=== PATIENT | male | born 1960 | race Two or more races ===

== ENCOUNTER 2018-11-10 16:28 | Inpatient (IN) | payer OTHER ==
[~2018-11-10] VITALS: Ht 160 cm; Wt 52.2 kg
[2018-11-10] MEDS ORDERED: FEE PK DOSING 1 MIN EA MC ONE (16:29)
[2018-11-10 18:00] LABS: BASOPHILS # (AUTO) 0.1 /CMM (0.0-0.2); BASOPHILS % (AUTO) 0.6 % (0.0-2.0); EOSINOPHILS % (AUTO) 3.8 % (0.0-6.0); HEMATOCRIT 23 % (39-51); HEMOGLOBIN 7.2 g/dL (13.5-17.5); LYMPHOCYTES # (AUTO) 2.1 /CMM (0.8-4.8); LYMPHOCYTES % (AUTO) 12.2 % (20.0-44.0); MEAN CORPUSCULAR HGB CONC 32 g/dl (31.0-36.0); MEAN CORPUSCULAR VOLUME 96 fL (80-96); MONOCYTES % (AUTO) 5.6 % (2.0-12.0); NEUTROPHILS # (AUTO) 13.5 /CMM (1.8-8.9); NEUTROPHILS % (AUTO) 77.8 % (43.0-81.0); PLATELET COUNT (AUTO) 664 /CMM (150-450); RED BLOOD CELL COUNT(AUTO) 2.35 MIL/uL (4.5-6.0); WHITE BLOOD COUNT (AUTO) 17.4 K/uL (4.3-11.0)
[2018-11-10 18:18] LABS: ALBUMIN 1.7 g/dL (3.4-5.0); BILIRUBIN,DIRECT 0.1 mg/dL (0.0-0.2); BILIRUBIN,TOTAL 0.3 mg/dL (0.2-1.0); CALCIUM, SERUM 9.2 mg/dL (8.5-10.1); TOTAL PROTEIN, SERUM 7.4 g/dL (6.4-8.2)
[2018-11-10 18:19] LABS: CREATININE 4.1 mg/dL (0.6-1.3)
[2018-11-10] MEDS ORDERED: hydrALAZINE HCL IV 20 MG VIAL ONE (19:47)
[2018-11-10] MEDS ORDERED: BISA10SU61 RC (19:50)
[2018-11-10] MEDS ORDERED: NA P133E RC (19:50)
[2018-11-10] MEDS ORDERED: ASPI-1169 GT (19:50)
[2018-11-10] MEDS ORDERED: ZINC220T GT (19:50)
[2018-11-10] MEDS ORDERED: DEXT15DR6 EACHEYE (19:50)
[2018-11-10] MEDS ORDERED: AMIN30LI27 GT (19:50)
[2018-11-10] MEDS ORDERED: METO100T14 GT (19:50)
[2018-11-10] MEDS ORDERED: OMEP40CA37 GT (19:50)
[2018-11-10] MEDS ORDERED: INSU100I26 SQ (19:50)
[2018-11-10] MEDS ORDERED: CRAN450C GT (19:50)
[2018-11-10] MEDS ORDERED: FENO145T GT (19:50)
[2018-11-10] MEDS ORDERED: METO-295 GT (19:50)
[2018-11-10] MEDS ORDERED: VIT500LI GT (19:50)
[2018-11-10] MEDS ORDERED: MAGN2400 GT (19:50)
[2018-11-10] MEDS ORDERED: HEPA500014 SQ (19:50)
[2018-11-10] MEDS ORDERED: ACET325T53 GT (19:50)
[2018-11-10] MEDS ORDERED: DOCU50LI GT (19:50)
[2018-11-10] MEDS ORDERED: ONDA4TAB10 GT (19:50)
[2018-11-10] MEDS ORDERED: INSU100V36 SQ (19:50)
[2018-11-10] MEDS ORDERED: ERGO500040 GT (19:50)
[2018-11-10] MEDS ORDERED: FOLI0.8T2 GT (19:50)
[2018-11-10] MEDS ORDERED: HYDR-4384 GT (19:50)
[2018-11-10] MEDS ORDERED: CLON0.1T GT (19:50)
[2018-11-10 19:56] LABS: APPEARANCE,URINE Turbid (CLEAR); BILIRUBIN,URINE Negative (NEGATIVE); BLOOD, URINE Moderate Ery/uL (NEGATIVE); COLOR,URINE Yellow (YELLOW); KETONES,URINE Negative (NEGATIVE); LEUKOCYTE ESTERASE ,URINE Large (NEGATIVE); NITRITE, URINE Negative (NEGATIVE); PROTEIN,URINE >=300 mg/dl (NEGATIVE); UGLUCOSE Negative (NEGATIVE); UROBILINOGEN,URINE 0.2 EU/dL (0.2)
[2018-11-10] MEDS ORDERED: PANTOPRAZOLE 40 MG TABLET.DR PO ONE (20:00)
[2018-11-10] MEDS ORDERED: MAGNESIUM HYDROXIDE 30 ML UDC PO PRN (20:00)
[2018-11-10] MEDS ORDERED: MAG HYDROX/AL HYDROX/SIMETH 30 ML UDC PO PRN (20:00)
[2018-11-10] MEDS ORDERED: hydrALAZINE HCL IV 20 MG VIAL IV ONE (20:00)
[2018-11-10] MEDS ORDERED: HYDROCODONE/APAP 5/325MG 1 EACH TABLET PO PRN (20:00)
[2018-11-10] MEDS ORDERED: LORAZEPAM INJ 2 MG/ML VIAL IV PRN (20:00)
[2018-11-10] MEDS ORDERED: ZOLPIDEM TARTRATE 5 MG TABLET PO PRN (20:00)
[2018-11-10] MEDS ORDERED: Z GUARD REMEDY 2 OZ OINT TP PRN (20:00)
[2018-11-10] MEDS ORDERED: ACETAMINOPHEN 325 MG TABLET PO PRN (20:00)
[2018-11-10] MEDS ORDERED: ONDANSETRON HCL/PF 4 MG/2 ML VIAL IVP PRN (20:00)
[2018-11-10 20:22] LABS: WBC,URINE TOO NUMEROUS TO COUN /HPF (0-3)
[2018-11-10 20:23] LABS: BACTERIA,URINE Many /HPF (None Seen); SQUAMOUS EPITHELIAL CELL,UR Few /HPF (None Seen); URINE AMORPHOUS URATE Moderate /HPF (None Seen)
[2018-11-10 23:15] VITALS: BP 145/82
[2018-11-10] MEDS ORDERED: VANCOMYCIN 1 GM in IV D5W 250 ML IV ONE (23:30)
[2018-11-11] MEDS ORDERED: PIPERACILLIN /TAZOBACTAM 3.375 G in IV D5W 50 ML IV SCH ×2
[2018-11-11] MEDS ORDERED: PIPERACILLIN /TAZOBACTAM 2.25 G VIAL IV ONE ×2 (00:08→05:50)
[2018-11-11] MEDS: PIPERACILLIN /TAZOBACTAM 2.25 G in IV D5W 50 ML IV SCH ×4 (00:13→21:06)
[2018-11-11] MEDS ORDERED: VANCOMYCIN 500 MG VIAL ONE ×2 (01:08→01:10)
[2018-11-11] MEDS ORDERED: IPRATROPIUM NEB FS 0.5 MG/2.5 ML AMPUL.NEB NEB ONE (01:30)
[2018-11-11] MEDS ORDERED: ALBUTEROL FS 2.5 MG/3 ML VIAL.NEB NEB ONE (01:30)
[2018-11-11] MEDS ORDERED: PANTOPRAZOLE 40 MG TABLET.DR PO ONE (03:26)
[2018-11-11 04:00] VITALS: BP 143/77
[2018-11-11] MEDS ORDERED: NEPRO 1,000 ML BOTTLE GT PRN (04:30)
[2018-11-11] MEDS ORDERED: DEXTROSE 50%-WATER 50 ML DISP.SYRIN IV PRN (05:00)
[2018-11-11] MEDS: BLOOD SUGAR DIAGNOSTIC 1 EACH STRIP IN SCH ×3 (06:26→19:14)
[2018-11-11 07:25] LABS: BASOPHILS # (AUTO) 0.1 /CMM (0.0-0.2); BASOPHILS % (AUTO) 0.5 % (0.0-2.0); EOSINOPHILS % (AUTO) 4.2 % (0.0-6.0); HEMATOCRIT 22 % (39-51); HEMOGLOBIN 7.3 g/dL (13.5-17.5); LYMPHOCYTES # (AUTO) 2.1 /CMM (0.8-4.8); LYMPHOCYTES % (AUTO) 14.3 % (20.0-44.0); MEAN CORPUSCULAR HGB CONC 33 g/dl (31.0-36.0); MEAN CORPUSCULAR VOLUME 94 fL (80-96); MONOCYTES % (AUTO) 7.1 % (2.0-12.0); NEUTROPHILS # (AUTO) 10.9 /CMM (1.8-8.9); NEUTROPHILS % (AUTO) 73.9 % (43.0-81.0); PLATELET COUNT (AUTO) 666 /CMM (150-450); RED BLOOD CELL COUNT(AUTO) 2.35 MIL/uL (4.5-6.0); WHITE BLOOD COUNT (AUTO) 14.8 K/uL (4.3-11.0)
[2018-11-11 07:30] VITALS: BP 137/73
[2018-11-11 07:55] LABS: CALCIUM, SERUM 8.8 mg/dL (8.5-10.1); CREATININE 4.8 mg/dL (0.6-1.3); MAGNESIUM 2.3 mg/dL (1.8-2.4)
[2018-11-11] MEDS ORDERED: VANCOMYCIN 500 MG in IV D5W 100 ML IV PRN (08:00)
[2018-11-11] MEDS ORDERED: ALTEPLASE CATHFLO 2 MG/VIAL IV ONE (10:00)
[2018-11-11] MEDS: NEPRO 1,000 ML BOTTLE GT PRN (10:19)
[2018-11-11 12:00] VITALS: BP 144/77
[2018-11-11] MEDS: INSULIN REGULAR, HUMAN 100 UNIT/ML 3 ML VIAL SQ PRN ×2 (12:49→19:21)
[2018-11-11 16:56] VITALS: BP 148/80
[2018-11-11 20:00] VITALS: BP 132/72
[2018-11-11] MEDS ORDERED: BISACODYL SUPP (10 MG) 10 MG/SUPP.RECT SUPP.RECT RC PRN (20:00)
[2018-11-11] MEDS ORDERED: NA PHOS,M-B/NA PHOS,DI-BA 1 EA ENEMA RC PRN (20:00)
[2018-11-11] MEDS: DOCUSATE SODIUM LIQ 100 MG/10 ML UDC GT SCH (21:35)
[2018-11-11] MEDS: FENOFIBRATE NANOCRYS (145 MG) 145 MG TABLET GT SCH (21:35)
[2018-11-11] MEDS: INSULIN GLARGINE, 100 UNIT/ML CARTRIDGE SQ SCH (21:52)
[2018-11-11] MEDS: PANTOPRAZOLE 40 MG/PACK PACK GT SCH (21:56)
[2018-11-11] MEDS: HEPARIN SODIUM, PORCINE 5000 UNITS/1 ML VIAL SQ SCH (21:57)
[2018-11-11] MEDS: METOPROLOL TARTRATE 50 MG TABLET GT SCH (23:08)
[2018-11-12] VITALS (14 sets, daily range): BP systolic 78–180; BP diastolic 51–94
[2018-11-12] MEDS: METOCLOPRAMIDE HCL 10 MG TABLET GT SCH ×5 (01:15→23:38)
[2018-11-12] MEDS: BLOOD SUGAR DIAGNOSTIC 1 EACH STRIP IN SCH ×5 (01:15→23:38)
[2018-11-12] MEDS: PIPERACILLIN /TAZOBACTAM 2.25 G in IV D5W 50 ML IV SCH ×3 (05:31→20:09)
[2018-11-12] MEDS: INSULIN REGULAR, HUMAN 100 UNIT/ML 3 ML VIAL SQ PRN ×4 (06:04→23:42)
[2018-11-12 06:39] LABS: BASOPHILS # (AUTO) 0.1 /CMM (0.0-0.2); BASOPHILS % (AUTO) 0.8 % (0.0-2.0); EOSINOPHILS % (AUTO) 5.5 % (0.0-6.0); HEMATOCRIT 21 % (39-51); LYMPHOCYTES # (AUTO) 2.1 /CMM (0.8-4.8); LYMPHOCYTES % (AUTO) 17.7 % (20.0-44.0); MEAN CORPUSCULAR HGB CONC 33 g/dl (31.0-36.0); MEAN CORPUSCULAR VOLUME 94 fL (80-96); MONOCYTES # (AUTO) 0.7 /CMM (0.1-1.30); MONOCYTES % (AUTO) 6.3 % (2.0-12.0); NEUTROPHILS # (AUTO) 8.1 /CMM (1.8-8.9); NEUTROPHILS % (AUTO) 69.7 % (43.0-81.0); PLATELET COUNT (AUTO) 618 /CMM (150-450); RED BLOOD CELL COUNT(AUTO) 2.19 MIL/uL (4.5-6.0); WHITE BLOOD COUNT (AUTO) 11.7 K/uL (4.3-11.0)
[2018-11-12 06:47] LABS: HEMOGLOBIN 6.8 g/dL (13.5-17.5)
[2018-11-12 07:09] LABS: CALCIUM, SERUM 8.7 mg/dL (8.5-10.1); CREATININE 5.3 mg/dL (0.6-1.3)
[2018-11-12] MEDS ORDERED: Medication Not On Formulary EA (Cranberry Fruit Concentrate (Cranberry) 450 MG) GT SCH (09:00)
[2018-11-12] MEDS: INSULIN GLARGINE, 100 UNIT/ML CARTRIDGE SQ SCH ×2 (09:00→20:24)
[2018-11-12] MEDS: DOCUSATE SODIUM LIQ 100 MG/10 ML UDC GT SCH ×2 (09:04→20:09)
[2018-11-12] MEDS: ZINC SULFATE 220 MG CAPSULE GT SCH (09:05)
[2018-11-12] MEDS: ASPIRIN 81 MG TAB.CHEW GT SCH (09:05)
[2018-11-12] MEDS: PANTOPRAZOLE 40 MG/PACK PACK GT SCH ×2 (09:05→20:11)
[2018-11-12] MEDS: VIT B CMPLX 3/FA/VIT C/BIOTIN 1 TAB TABLET PO SCH (09:05)
[2018-11-12] MEDS: METOPROLOL TARTRATE 50 MG TABLET GT SCH ×2 (09:08→20:11)
[2018-11-12] MEDS: ASCORBIC ACID 500 MG TABLET PO SCH (09:17)
[2018-11-12] MEDS: HEPARIN SODIUM, PORCINE 5000 UNITS/1 ML VIAL SQ SCH ×2 (10:01→20:09)
[2018-11-12] MEDS: DAKINS QUARTER STRENGTH (0.125%) 480 ML BOTTLE TOP SCH (10:08)
[2018-11-12 10:48] LABS: EOSINOPHILS % (MANUAL) 5 % (0-4); LYMPHOCYTES % (MANUAL) 7 % (16-48); MONOCYTES % (MANUAL) 3 % (0-11.0); NEUTROPHILS % (MANUAL) 85 (42-76)
[2018-11-12] MEDS: POLYVINYL ALCOHOL 15 ML BOTTLE EACHEYE SCH ×3 (17:18→23:38)
[2018-11-12] MEDS: FENOFIBRATE NANOCRYS (145 MG) 145 MG TABLET GT SCH (21:10)
[2018-11-13] VITALS (7 sets, daily range): BP systolic 120–145; BP diastolic 57–83
[2018-11-13] MEDS: NEPRO 1,000 ML BOTTLE GT PRN (03:55)
[2018-11-13] MEDS: PIPERACILLIN /TAZOBACTAM 2.25 G in IV D5W 50 ML IV SCH ×3 (04:41→20:35)
[2018-11-13] MEDS: METOCLOPRAMIDE HCL 10 MG TABLET GT SCH ×3 (05:53→17:31)
[2018-11-13] MEDS: POLYVINYL ALCOHOL 15 ML BOTTLE EACHEYE SCH ×3 (05:54→17:32)
[2018-11-13] MEDS: BLOOD SUGAR DIAGNOSTIC 1 EACH STRIP IN SCH ×3 (05:59→17:31)
[2018-11-13] MEDS: INSULIN REGULAR, HUMAN 100 UNIT/ML 3 ML VIAL SQ PRN ×3 (06:02→18:00)
[2018-11-13 07:19] LABS: BASOPHILS # (AUTO) 0.1 /CMM (0.0-0.2); BASOPHILS % (AUTO) 0.8 % (0.0-2.0); HEMATOCRIT 29 % (39-51); HEMOGLOBIN 9.9 g/dL (13.5-17.5); LYMPHOCYTES # (AUTO) 2.5 /CMM (0.8-4.8); LYMPHOCYTES % (AUTO) 20.3 % (20.0-44.0); MEAN CORPUSCULAR HGB CONC 34 g/dl (31.0-36.0); MEAN CORPUSCULAR VOLUME 93 fL (80-96); MONOCYTES % (AUTO) 8.2 % (2.0-12.0); NEUTROPHILS % (AUTO) 64.7 % (43.0-81.0); PLATELET COUNT (AUTO) 591 /CMM (150-450); RED BLOOD CELL COUNT(AUTO) 3.13 MIL/uL (4.5-6.0); WHITE BLOOD COUNT (AUTO) 12.3 K/uL (4.3-11.0)
[2018-11-13 07:30] LABS: CALCIUM, SERUM 8.9 mg/dL (8.5-10.1); POTASSIUM 2.9 mmol/L (3.5-5.1)
[2018-11-13] MEDS: ASCORBIC ACID 500 MG TABLET PO SCH (09:57)
[2018-11-13] MEDS: DOCUSATE SODIUM LIQ 100 MG/10 ML UDC GT SCH ×2 (09:57→21:06)
[2018-11-13] MEDS: ZINC SULFATE 220 MG CAPSULE GT SCH (09:57)
[2018-11-13] MEDS: VIT B CMPLX 3/FA/VIT C/BIOTIN 1 TAB TABLET PO SCH (09:57)
[2018-11-13] MEDS: ASPIRIN 81 MG TAB.CHEW GT SCH (09:57)
[2018-11-13] MEDS: PANTOPRAZOLE 40 MG/PACK PACK GT SCH ×2 (09:58→21:07)
[2018-11-13] MEDS: METOPROLOL TARTRATE 50 MG TABLET GT SCH ×2 (09:59→21:07)
[2018-11-13] MEDS: DAKINS QUARTER STRENGTH (0.125%) 480 ML BOTTLE TOP SCH (10:00)
[2018-11-13] MEDS: INSULIN GLARGINE, 100 UNIT/ML CARTRIDGE SQ SCH ×2 (10:10→21:47)
[2018-11-13] MEDS: HEPARIN SODIUM, PORCINE 5000 UNITS/1 ML VIAL SQ SCH ×2 (17:10→21:11)
[2018-11-13] MEDS ORDERED: ERGOCALCIFEROL (VITAMIN D 2) 50,000 UNIT CAPSULE GT SCH (20:00)
[2018-11-13] MEDS: FENOFIBRATE NANOCRYS (145 MG) 145 MG TABLET GT SCH (21:07)
[2018-11-14] VITALS (9 sets, daily range): BP systolic 122–167; BP diastolic 43–82
[2018-11-14] MEDS: INSULIN REGULAR, HUMAN 100 UNIT/ML 3 ML VIAL SQ PRN ×5 (00:50→23:20)
[2018-11-14] MEDS: POLYVINYL ALCOHOL 15 ML BOTTLE EACHEYE SCH ×4 (00:54→17:24)
[2018-11-14] MEDS: BLOOD SUGAR DIAGNOSTIC 1 EACH STRIP IN SCH ×5 (00:54→23:11)
[2018-11-14] MEDS: METOCLOPRAMIDE HCL 10 MG TABLET GT SCH ×4 (00:55→17:24)
[2018-11-14] MEDS: PIPERACILLIN /TAZOBACTAM 2.25 G in IV D5W 50 ML IV SCH ×2 (05:09→13:24)
[2018-11-14 08:17] LABS: CALCIUM, SERUM 8.8 mg/dL (8.5-10.1); CREATININE 2.9 mg/dL (0.6-1.3)
[2018-11-14] MEDS: ASCORBIC ACID 500 MG TABLET PO SCH (08:28)
[2018-11-14] MEDS: DOCUSATE SODIUM LIQ 100 MG/10 ML UDC GT SCH ×2 (08:28→21:05)
[2018-11-14] MEDS: VIT B CMPLX 3/FA/VIT C/BIOTIN 1 TAB TABLET PO SCH (08:29)
[2018-11-14] MEDS: ZINC SULFATE 220 MG CAPSULE GT SCH (08:29)
[2018-11-14] MEDS: METOPROLOL TARTRATE 50 MG TABLET GT SCH ×2 (08:29→21:06)
[2018-11-14] MEDS: PANTOPRAZOLE 40 MG/PACK PACK GT SCH ×2 (08:30→21:06)
[2018-11-14] MEDS: HEPARIN SODIUM, PORCINE 5000 UNITS/1 ML VIAL SQ SCH ×2 (08:30→21:07)
[2018-11-14] MEDS: ASPIRIN 81 MG TAB.CHEW GT SCH (08:31)
[2018-11-14] MEDS: INSULIN GLARGINE, 100 UNIT/ML CARTRIDGE SQ SCH ×2 (08:46→23:22)
[2018-11-14] MEDS: DAKINS QUARTER STRENGTH (0.125%) 480 ML BOTTLE TOP SCH (08:46)
[2018-11-14] MEDS: NEPRO 1,000 ML BOTTLE GT PRN (10:21)
[2018-11-14] MEDS ORDERED: NS 0.9% IV ONE (16:00)
[2018-11-14] MEDS ORDERED: AMIKACIN IV ONE (16:00)
[2018-11-14] MEDS ORDERED: DOSING PER PHARMACY-AMIKACI IV XX PRN (16:00)
[2018-11-14] MEDS: AMPICILLIN 1 GM in IV NS 0.9% 50 ML IV SCH (18:10)
[2018-11-14] MEDS: FENOFIBRATE NANOCRYS (145 MG) 145 MG TABLET GT SCH (21:09)
[2018-11-15] VITALS: BP 154/80
[2018-11-15] MEDS: POLYVINYL ALCOHOL 15 ML BOTTLE EACHEYE SCH ×5 (00:28→23:54)
[2018-11-15] MEDS: METOCLOPRAMIDE HCL 10 MG TABLET GT SCH ×4 (00:30→17:18)
[2018-11-15 04:00] VITALS: BP 152/85
[2018-11-15] MEDS: BLOOD SUGAR DIAGNOSTIC 1 EACH STRIP IN SCH ×3 (05:20→17:18)
[2018-11-15] MEDS: NEPRO 1,000 ML BOTTLE GT PRN ×2 (05:20→13:55)
[2018-11-15] MEDS: AMPICILLIN 1 GM in IV NS 0.9% 50 ML IV SCH ×2 (05:20→18:12)
[2018-11-15] MEDS: INSULIN REGULAR, HUMAN 100 UNIT/ML 3 ML VIAL SQ PRN ×3 (05:50→17:20)
[2018-11-15 07:39] LABS: CALCIUM, SERUM 8.9 mg/dL (8.5-10.1); CREATININE 3.9 mg/dL (0.6-1.3)
[2018-11-15 07:50] LABS: POTASSIUM 2.8 mmol/L (3.5-5.1)
[2018-11-15 08:00] VITALS: BP 124/69
[2018-11-15] MEDS: ZINC SULFATE 220 MG CAPSULE GT SCH (08:32)
[2018-11-15] MEDS: ASPIRIN 81 MG TAB.CHEW GT SCH (08:32)
[2018-11-15] MEDS: PANTOPRAZOLE 40 MG/PACK PACK GT SCH ×2 (08:32→20:58)
[2018-11-15] MEDS: VIT B CMPLX 3/FA/VIT C/BIOTIN 1 TAB TABLET PO SCH (08:32)
[2018-11-15] MEDS: DOCUSATE SODIUM LIQ 100 MG/10 ML UDC GT SCH ×2 (08:32→20:58)
[2018-11-15] MEDS: METOPROLOL TARTRATE 50 MG TABLET GT SCH ×2 (08:36→20:59)
[2018-11-15] MEDS: HEPARIN SODIUM, PORCINE 5000 UNITS/1 ML VIAL SQ SCH ×2 (08:38→20:57)
[2018-11-15] MEDS: INSULIN GLARGINE, 100 UNIT/ML CARTRIDGE SQ SCH ×2 (08:39→20:58)
[2018-11-15] MEDS: DAKINS QUARTER STRENGTH (0.125%) 480 ML BOTTLE TOP SCH (08:40)
[2018-11-15] MEDS: ASCORBIC ACID 500 MG TABLET PO SCH (08:54)
[2018-11-15] MEDS ORDERED: POTASSIUM CHLORIDE 20 MEQ TAB.PRT.SR PO ONE (09:30)
[2018-11-15 10:12] LABS: BASOPHILS # (AUTO) 0.1 /CMM (0.0-0.2); BASOPHILS % (AUTO) 0.8 % (0.0-2.0); HEMATOCRIT 29 % (39-51); HEMOGLOBIN 9.6 g/dL (13.5-17.5); LYMPHOCYTES # (AUTO) 2.4 /CMM (0.8-4.8); LYMPHOCYTES % (AUTO) 16.2 % (20.0-44.0); MEAN CORPUSCULAR HGB CONC 33 g/dl (31.0-36.0); MEAN CORPUSCULAR VOLUME 94 fL (80-96); MONOCYTES # (AUTO) 1.1 /CMM (0.1-1.30); MONOCYTES % (AUTO) 7.1 % (2.0-12.0); NEUTROPHILS # (AUTO) 10.2 /CMM (1.8-8.9); NEUTROPHILS % (AUTO) 68.9 % (43.0-81.0); PLATELET COUNT (AUTO) 642 /CMM (150-450); WHITE BLOOD COUNT (AUTO) 14.8 K/uL (4.3-11.0)
[2018-11-15 12:00] VITALS: BP 97/54
[2018-11-15 12:01] LABS: CALCIUM, SERUM 8.7 mg/dL (8.5-10.1); CREATININE 4.1 mg/dL (0.6-1.3); POTASSIUM 2.9 mmol/L (3.5-5.1)
[2018-11-15] MEDS ORDERED: FEE PK DOSING 1 MIN EA MC ONE (13:39)
[2018-11-15] MEDS ORDERED: AMIKACIN 300 MG in IV D5W 100 ML IV PRN (14:00)
[2018-11-15 16:00] VITALS: BP 150/82
[2018-11-15 20:00] VITALS: BP 154/73
[2018-11-15] MEDS: FENOFIBRATE NANOCRYS (145 MG) 145 MG TABLET GT SCH (21:00)
[2018-11-16] MEDS: BLOOD SUGAR DIAGNOSTIC 1 EACH STRIP IN SCH ×3 (00:02→12:51)
[2018-11-16] MEDS: INSULIN REGULAR, HUMAN 100 UNIT/ML 3 ML VIAL SQ PRN ×3 (00:06→12:56)
[2018-11-16] MEDS: METOCLOPRAMIDE HCL 10 MG TABLET GT SCH ×3 (00:08→12:47)
[2018-11-16] MEDS: hydrALAZINE HCL IV 20 MG VIAL IV PRN ×3 (03:52→17:16)
[2018-11-16] MEDS: POLYVINYL ALCOHOL 15 ML BOTTLE EACHEYE SCH ×2 (05:21→12:57)
[2018-11-16] MEDS: AMPICILLIN 1 GM in IV NS 0.9% 50 ML IV SCH (05:24)
[2018-11-16 06:02] VITALS: BP 167/77
[2018-11-16 07:49] LABS: CREATININE 3.6 mg/dL (0.6-1.3)
[2018-11-16 08:00] VITALS: BP 168/88
[2018-11-16] MEDS ORDERED: POTASSIUM CHLORIDE 20 MEQ TAB.PRT.SR PO ONE (09:00)
[2018-11-16] MEDS: DOCUSATE SODIUM LIQ 100 MG/10 ML UDC GT SCH (09:56)
[2018-11-16] MEDS: VIT B CMPLX 3/FA/VIT C/BIOTIN 1 TAB TABLET PO SCH (09:56)
[2018-11-16] MEDS: ASCORBIC ACID 500 MG TABLET PO SCH (09:57)
[2018-11-16] MEDS: HEPARIN SODIUM, PORCINE 5000 UNITS/1 ML VIAL SQ SCH (09:57)
[2018-11-16] MEDS: PANTOPRAZOLE 40 MG/PACK PACK GT SCH (09:57)
[2018-11-16] MEDS: ZINC SULFATE 220 MG CAPSULE GT SCH (09:57)
[2018-11-16] MEDS: METOPROLOL TARTRATE 50 MG TABLET GT SCH (09:58)
[2018-11-16] MEDS: INSULIN GLARGINE, 100 UNIT/ML CARTRIDGE SQ SCH (09:59)
[2018-11-16] MEDS: DAKINS QUARTER STRENGTH (0.125%) 480 ML BOTTLE TOP SCH (10:10)
[2018-11-16] MEDS: ASPIRIN 81 MG TAB.CHEW GT SCH (10:13)
[2018-11-16 12:00] VITALS: BP_SYST 144; BP_SYST 165; BP_DIAS 67; BP_DIAS 71
[2018-11-16 16:00] VITALS: BP 161/71
[2018-11-16] MEDS ORDERED: RXAMI XX (16:22)
[2018-11-16] MEDS ORDERED: ampicillin IV (16:22)
[2018-11-16 17:16] VITALS: BP 166/113
[2018-12-22] MEDS ORDERED: BISA10SU8 RC (13:35)
== END 2018-11-16 17:58 | DRG 951 ==
LOC: ER 16:28 → TELE 22:51
PROVIDERS: ADMIT Nurse Practitioner Acute Care; ATTEND Nurse Practitioner Acute Care
PROC: 05H533Z Insertion of Infusion Device into Right Subclavian Vein, Percutaneous Approach (ICD-10-PCS; principal; 2018-11-10)
PROC: 5A1955Z Respiratory Ventilation, Greater than 96 Consecutive Hours (ICD-10-PCS; principal; 2018-11-10)
PROC: B546ZZA Ultrasonography of Right Subclavian Vein, Guidance (ICD-10-PCS; principal; 2018-11-10)
PROC: 0QB10ZZ Excision of Sacrum, Open Approach (ICD-10-PCS; 2018-11-11)
PROC: 5A1D70Z Performance of Urinary Filtration, Intermittent, Less than 6 Hours Per Day (ICD-10-PCS; 2018-11-11)
PROC: 0QB30ZZ Excision of Left Pelvic Bone, Open Approach (ICD-10-PCS; 2018-11-11)
PROC: 0QB20ZZ Excision of Right Pelvic Bone, Open Approach (ICD-10-PCS; 2018-11-11)
PROC: 30233N1 Transfusion of Nonautologous Red Blood Cells into Peripheral Vein, Percutaneous Approach (ICD-10-PCS; 2018-11-12)
PROC: 5A1D70Z Performance of Urinary Filtration, Intermittent, Less than 6 Hours Per Day (ICD-10-PCS; 2018-11-12)
PROC: 5A1D70Z Performance of Urinary Filtration, Intermittent, Less than 6 Hours Per Day (ICD-10-PCS; 2018-11-13)
PROC: 5A1D70Z Performance of Urinary Filtration, Intermittent, Less than 6 Hours Per Day (ICD-10-PCS; 2018-11-15)
DX: T82.41XA Breakdown (mechanical) of vascular dialysis catheter, initial encounter (principal); R65.20 Severe sepsis without septic shock; A41.9 Sepsis, unspecified organism; E43 Unspecified severe protein-calorie malnutrition; Z99.11 Dependence on respirator [ventilator] status; J96.11 Chronic respiratory failure with hypoxia; L89.154 Pressure ulcer of sacral region, stage 4; I12.0 Hypertensive chronic kidney disease with stage 5 chronic kidney disease or end stage renal disease; N18.6 End stage renal disease; D68.59 Other primary thrombophilia; R53.2 Functional quadriplegia; Z93.0 Tracheostomy status; R13.10 Dysphagia, unspecified; E87.1 Hypo-osmolality and hyponatremia; Y92.129 Unspecified place in nursing home as the place of occurrence of the external cause; Y71.2 Prosthetic and other implants, materials and accessory cardiovascular devices associated with adverse incidents; E11.22 Type 2 diabetes mellitus with diabetic chronic kidney disease; D63.8 Anemia in other chronic diseases classified elsewhere; E11.51 Type 2 diabetes mellitus with diabetic peripheral angiopathy without gangrene; E11.42 Type 2 diabetes mellitus with diabetic polyneuropathy; E11.65 Type 2 diabetes mellitus with hyperglycemia; E11.621 Type 2 diabetes mellitus with foot ulcer; E87.6 Hypokalemia; E87.2 Acidosis; E86.1 Hypovolemia; F03.90 Unspecified dementia, unspecified severity, without behavioral disturbance, psychotic disturbance, mood disturbance, and anxiety; F09 Unspecified mental disorder due to known physiological condition; K21.9 Gastro-esophageal reflux disease without esophagitis; L97.519 Non-pressure chronic ulcer of other part of right foot with unspecified severity; Z99.2 Dependence on renal dialysis; Z93.1 Gastrostomy status; Z89.432 Acquired absence of left foot; Z89.411 Acquired absence of right great toe; Z79.4 Long term (current) use of insulin; Z79.82 Long term (current) use of aspirin; Z79.01 Long term (current) use of anticoagulants; D64.9 Anemia, unspecified; Z68.20 Body mass index [BMI] 20.0-20.9, adult; L89.611 Pressure ulcer of right heel, stage 1; N39.0 Urinary tract infection, site not specified; B96.89 Other specified bacterial agents as the cause of diseases classified elsewhere
CPT/HCPCS: 31720; 36415; 71045-TC; 80048-TC; 80061-TC; 80076-TC; 80150; 80202-TC; 81000-TC; 82962-TC; 83605-TC; 83735-TC; 84100-TC; 85025-TC; 85730-TC; 86850-TC; 86921-TC; 87040-TC; 87070-TC; 87081-TC; 87086-TC; 87186-TC; 90935-TC; 94002-TC; 94003-TC; 94760-TC; 94762-TC; 99082-TC; A4216; A4623; A6253; A6402; A6403; A7526; G0378; J0278; J0290; J0360; J1644; J1815; J2543; J2997; J3370; J7030; J7050; J7060; J8597; P9016-BL

== ENCOUNTER 2018-11-22 17:06 | Inpatient (IN) | payer OTHER ==
[~2018-11-22] VITALS: Ht 170.2 cm; Wt 55.3 kg
[~2018-11-22 17:06] MED LIST: ACET325T53 GT; AMIN30LI27 GT; ASPI-1169 GT; BISA10SU61 RC; CLON0.1T GT; CRAN450C GT; DEXT15DR6 EACHEYE; DOCU50LI GT; ERGO500040 GT; FENO145T GT; FOLI0.8T2 GT; HEPA500014 SQ; HYDR-4384 GT; INSU100I26 SQ; INSU100V36 SQ; MAGN2400 GT; METO-295 GT; METO100T14 GT; NA P133E RC; OMEP40CA37 GT; ONDA4TAB10 GT; RXAMI XX; VIT500LI GT; ZINC220T GT; ampicillin IV
--- NOTE | 2018-11-22 17:15 | NUR ---
JOSE DAUGHTER LEFT CONTACT# [phone]
[2018-11-22 17:20] VITALS: BP 153/82
--- NOTE | 2018-11-22 17:30 | NUR ---
PT BIBPA, FROM [facility] SENT BY DR. GOOD D/T TACHYCARDIA HR 116, PT IS AAOX0 BUT WITHDRAWS TO PAIN, V/S STABLE, HOOKED TO MECH VENT VIA TRACHEOSTOMY SET UP BY RT, HOOKED TO MONITOR, KEPT RESTED AND COMFORTABLE, WILL CONTINUE TO MONITOR.
--- NOTE | 2018-11-22 17:30 | NUR ---
LABS DRAWNED, URINE SPECIMEN COLLECTED AND SENT TO LAB.
--- NOTE | 2018-11-22 17:35 | NUR ---
LABS DRAWNED BY ER PHLEB AND SENT TO LAB.
--- NOTE | 2018-11-22 17:35 | NUR ---
RT RECD FROM DIALYSIS FOR HIGH HEART RATE TRACHED INTACT AND SECURE WITH SHILEY 8 DCT LEIDA ORDERED SETTING OF AC 18 500 +5 40% ALARMS ON AND AUDIBLE VENT PLUGGED IN RED OUTLET BAG AND MASK AT HOB NO RESP DISTRESS ATT WILL CONT TO MONITOR Addendum: 11/22/18 at 1755 by LOLLY FRY RT Amended: Links added.
[2018-11-22 17:40] LABS: APPEARANCE,URINE Turbid (CLEAR); BILIRUBIN,URINE Negative (NEGATIVE); BLOOD, URINE Moderate Ery/uL (NEGATIVE); COLOR,URINE Yellow (YELLOW); KETONES,URINE Negative (NEGATIVE); LEUKOCYTE ESTERASE ,URINE Large (NEGATIVE); NITRITE, URINE Negative (NEGATIVE); PROTEIN,URINE >=300 mg/dl (NEGATIVE); UGLUCOSE Negative (NEGATIVE); UROBILINOGEN,URINE 0.2 EU/dL (0.2)
--- NOTE | 2018-11-22 17:45 | NUR ---
BRENT AT BEDSIDE FOR XRAY.
[2018-11-22 17:47] LABS: BASOPHILS # (AUTO) 0.1 /CMM (0.0-0.2); BASOPHILS % (AUTO) 0.3 % (0.0-2.0); EOSINOPHILS % (AUTO) 5.1 % (0.0-6.0); HEMATOCRIT 29 % (39-51); HEMOGLOBIN 9.6 g/dL (13.5-17.5); LYMPHOCYTES # (AUTO) 2.5 /CMM (0.8-4.8); MEAN CORPUSCULAR HGB CONC 33 g/dl (31.0-36.0); MEAN CORPUSCULAR VOLUME 95 fL (80-96); MONOCYTES # (AUTO) 1.1 /CMM (0.1-1.30); MONOCYTES % (AUTO) 5.4 % (2.0-12.0); NEUTROPHILS # (AUTO) 16.1 /CMM (1.8-8.9); NEUTROPHILS % (AUTO) 77.2 % (43.0-81.0); PLATELET COUNT (AUTO) 638 /CMM (150-450); RED BLOOD CELL COUNT(AUTO) 3.05 MIL/uL (4.5-6.0); WHITE BLOOD COUNT (AUTO) 20.9 K/uL (4.3-11.0)
[2018-11-22 17:51] LABS: RBC,URINE 21-50 /HPF (0-2); WBC,URINE 21-50 /HPF (0-3)
[2018-11-22 17:52] LABS: BACTERIA,URINE Few /HPF (None Seen); SQUAMOUS EPITHELIAL CELL,UR None Seen /HPF (None Seen); YEAST,URINE Hyphal filaments /HPF (None Seen)
[2018-11-22] MEDS ORDERED: IV NS 0.9% 250 ML BAG IV ONE (18:00)
[2018-11-22] MEDS ORDERED: IV NS 0.9% 1,000 ML BAG IV ONE (18:00)
[2018-11-22 18:27] LABS: ALBUMIN 2.2 g/dL (3.4-5.0); BILIRUBIN,DIRECT 0.1 mg/dL (0.0-0.2); BILIRUBIN,TOTAL 0.3 mg/dL (0.2-1.0); CALCIUM, SERUM 8.9 mg/dL (8.5-10.1); CREATININE 1.7 mg/dL (0.6-1.3); TOTAL PROTEIN, SERUM 7.8 g/dL (6.4-8.2)
[2018-11-22 18:29] LABS: POTASSIUM 2.4 mmol/L (3.5-5.1)
[2018-11-22] MEDS ORDERED: CEFEPIME 1 GM in IV D5W 50 ML IV ONE (18:30)
[2018-11-22] MEDS ORDERED: VANCOMYCIN 1 GM in IV D5W 250 ML IV ONE (18:30)
[2018-11-22] MEDS ORDERED: POTASSIUM CL. PREMIX PERIPHER. 50 ML ONE ×4 (18:47→22:36)
[2018-11-22] MEDS: POTASSIUM CL. PREMIX PERIPHER. 50 ML IV SCH ×4 (19:31→22:00)
--- NOTE | 2018-11-22 19:45 | NUR ---
PAPPAS CATH REPLACE ORDERED BY DR. LAWSON.
--- NOTE | 2018-11-22 19:46 | NUR ---
REPORT GIVEN TO GARRY EVANGELISTA FOR MARKELL.
--- NOTE | 2018-11-22 20:00 | NUR ---
VENT SETTINGS: TV: 500 %02: 40 PEEP: 5 PEAK FLOW: 60
[2018-11-22 20:03] LABS: MAGNESIUM 1.8 mg/dL (1.8-2.4); PHOSPHORUS 1.3 mg/dL (2.5-4.9)
[2018-11-22] MEDS ORDERED: ACETAMINOPHEN 650 MG/20.3 ML UDC GT ONE (20:30)
[2018-11-22] MEDS ORDERED: ACETAMINOPHEN 650 MG/20.3 ML UDC ONE (20:52)
[2018-11-22 20:56] VITALS: BP 139/78
--- NOTE | 2018-11-22 21:15 | NUR ---
FAMILY AT BEDSIDE
[2018-11-22] MEDS ORDERED: ONDANSETRON HCL/PF - ER 4 MG/2 ML VIAL IV ONE (21:30)
[2018-11-22] MEDS ORDERED: Medication Not On Formulary EA (Ondansetron Hcl 4 MG) GT PRN (21:30)
[2018-11-22] MEDS ORDERED: CLONIDINE HCL 0.1 MG TABLET GT PRN (21:30)
[2018-11-22] MEDS ORDERED: MAGNESIUM HYDROXIDE 30 ML UDC PO PRN (21:30)
[2018-11-22] MEDS ORDERED: NA PHOS,M-B/NA PHOS,DI-BA 1 EA ENEMA RC PRN (21:30)
[2018-11-22] MEDS ORDERED: BISACODYL SUPP (10 MG) 10 MG/SUPP.RECT SUPP.RECT RC PRN (21:30)
[2018-11-22] MEDS ORDERED: ZOLPIDEM TARTRATE 5 MG TABLET PO PRN (21:30)
[2018-11-22] MEDS ORDERED: Z GUARD REMEDY 2 OZ OINT TP PRN (21:30)
[2018-11-22] MEDS ORDERED: HYDROCODONE/APAP 5/325MG 1 EACH TABLET PO PRN (21:30)
[2018-11-22] MEDS ORDERED: INSULIN LISPRO U SQ PRN (21:30)
[2018-11-22] MEDS ORDERED: MAG HYDROX/AL HYDROX/SIMETH 30 ML UDC PO PRN (21:30)
[2018-11-22] MEDS ORDERED: Medication Not On Formulary EA (Magnesium Hydroxide (Milk Of Magnesia) 2,400 MG) GT PRN (21:30)
--- NOTE | 2018-11-22 21:44 | NUR ---
Cyndee erwin in [facility] - 11/22/18 at 2159 by FE BED 121-2
--- NOTE | 2018-11-22 21:59 | NUR ---
BED 112-1
--- NOTE | 2018-11-22 22:10 | NUR ---
REPORT GIVEN TO GARRY ROLDAN FOR MARKELL
[2018-11-22] MEDS ORDERED: Sodium Phosphate 15 MMOL in IV D5W 250 ML IV ONE (22:30)
--- NOTE | 2018-11-22 22:48 | NUR ---
POTASSIUM CHLORIDE 10MEQ/50ML 2 BAGS COMPLETED IN ER 3RD BAG INFUSED TO FLOOR PROVIDED RN 4TH BAG FOR INFUSION
[2018-11-22] MEDS ORDERED: CEFTRIAXONE 1 G in IV D5W 50 ML IV SCH (23:00)
--- NOTE | 2018-11-22 23:00 | NUR ---
HANH RN NOTE RECEIVED PT WITH OPEN EYES ON MECH VENT. TRANSFERRED TO BED SAFELY. FAMILY AT BEDSIDE. ON MECH VENT WITH SETTINGS WELL TOLERATED AND SATURATING WELL. BREATHING UNLABORED. IV GENO PICC IN PLACE WITH POTASSIUM BAG #3 INFUSING AND 1 LEFT TO INFUSE PER ER ORDERS. GT WITH POSITIVE PLACEMENT WITH NO RESIDUALS NOTED AND CLAMPED. HOB ELEVATED AND ON ASPIRATION PRECAUTIONS. PAPPAS CATHETER IN PLACE AND DRAINING BY GRAVITY. ADMITTING DOCTOR AT BEDSIDE. WILL CONTINUE TO MONITOR.
[2018-11-22] MEDS: METOCLOPRAMIDE HCL 10 MG TABLET GT SCH (23:52)
[2018-11-22] MEDS: FENOFIBRATE NANOCRYS (145 MG) 145 MG TABLET GT SCH (23:52)
[2018-11-23] VITALS: BP 169/86
[2018-11-23] MEDS ORDERED: CEFTRIAXONE 1 G VIAL ONE (00:01)
--- NOTE | 2018-11-23 00:30 | NUR ---
HANH RN NOTE SPOKE WITH TROY FROM PHARMACY EXPLAINING THAT THERE'S NO SODIUM PHOSPHATE IV AND A PHARMACIST WOULD NEED TO COME TO HOSPITAL TO MIX FOR PATIENT. INSTRUCTED TO SPEAK WITH DOCTOR AND ASK IF PT CAN GET NEUTRA PHOS PACKET INSTEAD OF IV. LEFT MESSAGE TO DIALYSIS REGISTERED NURSE DR CABRAL. WILL MONITOR.
--- NOTE | 2018-11-23 01:45 | NUR ---
HANH RN NOTE SPOKE WITH DR CABRAL WITH ORDERS TO GIVE 1 NEUTRA PHOS PACKET NOW. ORDERS NOTED AND CARRIED OUT.
[2018-11-23] MEDS ORDERED: NEUTRA PHOS 1 POWD.PACKET PO ONE (02:00)
[2018-11-23 04:00] VITALS: BP 150/80
[2018-11-23] MEDS: METOCLOPRAMIDE HCL 10 MG TABLET GT SCH (05:15)
[2018-11-23] MEDS: ONDANSETRON HCL/PF 4 MG/2 ML VIAL IVP PRN (05:54)
[2018-11-23 07:30] LABS: BASOPHILS # (AUTO) 0.1 /CMM (0.0-0.2); BASOPHILS % (AUTO) 0.3 % (0.0-2.0); EOSINOPHILS % (AUTO) 3.9 % (0.0-6.0); HEMATOCRIT 29 % (39-51); HEMOGLOBIN 9.4 g/dL (13.5-17.5); LYMPHOCYTES # (AUTO) 2.2 /CMM (0.8-4.8); LYMPHOCYTES % (AUTO) 10.4 % (20.0-44.0); MEAN CORPUSCULAR HGB CONC 33 g/dl (31.0-36.0); MEAN CORPUSCULAR VOLUME 94 fL (80-96); MONOCYTES # (AUTO) 1.3 /CMM (0.1-1.30); MONOCYTES % (AUTO) 6.2 % (2.0-12.0); NEUTROPHILS # (AUTO) 16.5 /CMM (1.8-8.9); NEUTROPHILS % (AUTO) 79.2 % (43.0-81.0); PLATELET COUNT (AUTO) 715 /CMM (150-450); RED BLOOD CELL COUNT(AUTO) 3.04 MIL/uL (4.5-6.0); WHITE BLOOD COUNT (AUTO) 20.9 K/uL (4.3-11.0)
[2018-11-23 07:45] LABS: CALCIUM, SERUM 8.8 mg/dL (8.5-10.1); CREATININE 2.5 mg/dL (0.6-1.3)
[2018-11-23 08:00] VITALS: BP 145/78
--- NOTE | 2018-11-23 08:00 | NUR ---
HANH RN NOTE PATIENT IN BED WITH TRACH TO VENT SETTING ORDERED OBTUNDED , ON TELE MONITOR ST HR 112 , WITH PAPPAS CATH TO GRAVITY ,WITH YELLOW COLOR URINE, G TUBE CLUMPED AT THIS TIME PATIENT WAS VOMITING EARLIER , WILL F\U , RT UPPER ARM PICC LINE IN PLACE , BED IN LOWEST AND LOCKED POSITION , CALL LIGHT WITHIN REACH WILL MONITOR
[2018-11-23] MEDS: DOCUSATE SODIUM LIQ 100 MG/10 ML UDC GT SCH ×2 (09:00→21:46)
[2018-11-23] MEDS: INSULIN GLARGINE, 100 UNIT/ML CARTRIDGE SQ SCH ×2 (09:00→21:00)
[2018-11-23] MEDS: ZINC SULFATE 220 MG CAPSULE GT SCH (09:00)
[2018-11-23] MEDS: ASPIRIN 81 MG TAB.CHEW GT SCH (09:00)
[2018-11-23] MEDS: METOPROLOL TARTRATE 50 MG TABLET GT SCH ×2 (09:00→21:47)
[2018-11-23] MEDS: PANTOPRAZOLE 40 MG/PACK PACK GT SCH (09:00)
[2018-11-23] MEDS: ASCORBIC ACID 500 MG TABLET GT SCH (09:00)
[2018-11-23] MEDS: HYDROCODONE/APAP 5/325MG 1 EACH TABLET GT SCH (09:00)
[2018-11-23] MEDS ORDERED: Medication Not On Formulary EA (Cranberry Fruit Concentrate (Cranberry) 450 MG) GT SCH (09:00)
[2018-11-23] MEDS: VIT B CMPLX 3/FA/VIT C/BIOTIN 1 TAB TABLET GT SCH (09:00)
[2018-11-23] MEDS: HEPARIN SODIUM, PORCINE 5000 UNITS/1 ML VIAL SQ SCH ×2 (09:11→21:50)
--- NOTE | 2018-11-23 09:24 | NUR ---
musa rn note spoke with dr cheng notifyed that patent vomiting with yellow color vomitus ordered to start on low intermitted suction will f\u, dr kat at bedside aware patent has vomiting and t 99.4 all Meds hold due to vomiting at this time , dr cheng aware Addendum: 11/23/18 at 1122 by AME JUAREZ RN NA PHOS IV WAS NOT GIVEN DUE TO NA PHOS WAS GIVE BY AUTOMOBILE INSURANCE CLAIM EXAMINER VIA G TUBE ,PHARMACIST SUKHWINDER NOTIFIED
--- NOTE | 2018-11-23 10:30 | NUR ---
HANH RN NOTE LOW INTERMITTED SUCTION PLACED TO G TUBE ,DIETITIAN NOTIFIED STILL NOTED GREENISH YELLOW DRAINAGE NOTED WILL F\U
--- NOTE | 2018-11-23 11:41 | NUR ---
HANH RN NOTE HD STARTED ORDERED
[2018-11-23 12:00] VITALS: BP 130/64
[2018-11-23] MEDS: BLOOD SUGAR DIAGNOSTIC 1 EACH STRIP IN SCH ×3 (12:38→22:01)
[2018-11-23] MEDS: POLYVINYL ALCOHOL 15 ML BOTTLE EACHEYE SCH ×3 (12:40→23:57)
[2018-11-23] MEDS: METOCLOPRAMIDE HCL 10 MG/2 ML VIAL IV PRN (12:56)
[2018-11-23] MEDS: ACETAMINOPHEN 325 MG TABLET PO PRN ×2 (12:57→21:47)
--- NOTE | 2018-11-23 12:59 | NUR ---
FITTER TYPE BAR AND SEGMENT NOTE HD COMPLETED, NO FLUIDS OUT BP 141/[address] DOZIER AT BEDSIDE AWARE THAT T 100.2 OK TO METAL CUT OFF SAW TENDER\ TYLENOL VIA G TUBE ALSO AWARE THAT PATIENT STILL VOMITING, REGLAN IV WILL ORDER, AWARE THAT PATIENT ON LOW INTERMITTED SUCTION TO G TUBE ,OK TO LOW AND D OINT FOR LEGS
--- NOTE | 2018-11-23 13:00 | NUR ---
WINDOW MAKER NOTE PER DR DOZIER NPO AT HIS TIME DUE TO PATIENT IS FREQUENT VOMITING NO G TUBE FEEDING AT THIS TIME ,DIETARY AT BEDSIDE AWARE OF PATIENT CONDITION
[2018-11-23] MEDS ORDERED: VITAMINS A AND D 56.7 GM TUBE TP PRN (13:30)
--- NOTE | 2018-11-23 15:00 | NUR ---
PRECISION AGRICULTURE TECHNICIAN NOTE KUB DONE ORDERED ,CONT ON G TUBE TO LOW INTERMITTED SUCTION STILL NOTED YELLOW GREENISH COLOR DRAINAGE , ORAL SUCTION DONE FREQUENTLY, KEEP CLEAN DRY ABLE BM , T 98.0 AT THIS TIME AFTER COOLING MEASURE WAS PROVIDED
[2018-11-23 16:00] VITALS: BP 146/81
--- NOTE | 2018-11-23 17:00 | NUR ---
HUMANITIES PROFESSOR NOTE CALLED TO DR DOZIER NOTIFIED THAT KUB RESULT AND FROM SUCTION NOTED GASTRIC CONTENTS IS DARK BROWN COLOR , ORDERED TO STOP SUCTION FOR NOW AND GET SPECIMEN OF GASTRIC CONTENT FOR OB , ORDER CARRIED OUT
[2018-11-23] MEDS: FLUCONAZOLE IN NS 100 MG in PREMIX 1 EA IV SCH ×2 (17:49)
[2018-11-23] MEDS ORDERED: FEE PK DOSING 1 MIN EA MC ONE (17:59)
--- NOTE | 2018-11-23 18:36 | NUR ---
NICKING MACHINE OPERATOR NOTE SEEN BY DELLA CASTAÑEDA PRODUCT OWNER GI AWARE OF GASTRIC CONTENT OF DARK BROWN COLOR STATED HOLD G TUBE FEEDING AT THIS TIME, COLLECT STOOL FOR OB ,CBC BMP IN AM , ORDER CARRIED OUT , ALSO SEEN BY SILVERIO CASTAÑEDA PRODUCT OWNER AY AWARE URINE GRAM NEGATIVE MANDIE WITH NEW ORE ATB GIVEN, WILL CONT TO MONITOR CLOSELY , NO VOMITING NOTED FOR NOW
[2018-11-23] MEDS: MEROPENEM 500 MG in IV NS 0.9% 50 ML IV SCH (18:46)
--- NOTE | 2018-11-23 19:05 | NUR ---
BACTERIOLOGIST FOOD NOTE PATIENT IS RESTING WITH HOB ELEVATED, OBTUNDED, VENT TO TRACH ON SETTINGS ORDERED, ON TELE ST, F.C DRAINING TO GRAVITY NO NOTED OUTPUT CURRENTLY, GT CURRENTLY CLAMPED, NO VOMITING NOTED, SKIN KEPT CLEAN AND DRY, WOUND DRESSING IN TACT, GENO PICC LINE, PATENT FLUSHING WELL, SITE IS CLEAN AND DRY, SAFETY MAINTAINED AT ALL TIMES, BED IN LOW LOCKED POSITION, CALL LIGHT WITHIN REACH, WILL CONTINUE TO MONITOR FOR ANY CHANGES IN CONDITION.
[2018-11-23 20:00] VITALS: BP 156/72
[2018-11-23] MEDS: VANCOMYCIN 0.75 GM in IV D5W 250 ML IV SCH (20:05)
[2018-11-23] MEDS: FENOFIBRATE NANOCRYS (145 MG) 145 MG TABLET GT SCH (21:46)
--- NOTE | 2018-11-23 22:02 | NUR ---
GRANTS ANALYST NOTE PT IS NPO NO G TUBE FEEDING DUE TO ONGOING VOMITING, BS 110, LANTUS LONG ACTING INSULIN NON ADMINISTERED DUE TO RISK OF HYPOGLYCEMIA.
[2018-11-24] VITALS: BP 131/52
[2018-11-24] MEDS: METOCLOPRAMIDE HCL 10 MG/2 ML VIAL IV PRN ×2 (02:35→23:02)
[2018-11-24 04:00] VITALS: BP 161/63
[2018-11-24] MEDS: ACETAMINOPHEN 325 MG TABLET PO PRN ×3 (04:17→17:33)
[2018-11-24] MEDS: MEROPENEM 500 MG in IV NS 0.9% 50 ML IV SCH ×2 (06:16→17:36)
[2018-11-24] MEDS: POLYVINYL ALCOHOL 15 ML BOTTLE EACHEYE SCH ×4 (06:17→23:02)
[2018-11-24 07:03] LABS: BASOPHILS # (AUTO) 0.1 /CMM (0.0-0.2); BASOPHILS % (AUTO) 0.5 % (0.0-2.0); EOSINOPHILS % (AUTO) 0.7 % (0.0-6.0); HEMATOCRIT 30 % (39-51); HEMOGLOBIN 9.5 g/dL (13.5-17.5); LYMPHOCYTES # (AUTO) 1.6 /CMM (0.8-4.8); LYMPHOCYTES % (AUTO) 8.1 % (20.0-44.0); MEAN CORPUSCULAR HGB CONC 32 g/dl (31.0-36.0); MEAN CORPUSCULAR VOLUME 96 fL (80-96); MONOCYTES # (AUTO) 1.2 /CMM (0.1-1.30); MONOCYTES % (AUTO) 6.4 % (2.0-12.0); NEUTROPHILS # (AUTO) 16.2 /CMM (1.8-8.9); NEUTROPHILS % (AUTO) 84.3 % (43.0-81.0); PLATELET COUNT (AUTO) 659 /CMM (150-450); RED BLOOD CELL COUNT(AUTO) 3.11 MIL/uL (4.5-6.0); WHITE BLOOD COUNT (AUTO) 19.2 K/uL (4.3-11.0)
[2018-11-24 07:18] LABS: PHOSPHORUS 1.8 mg/dL (2.5-4.9); POTASSIUM 3.7 mmol/L (3.5-5.1)
--- NOTE | 2018-11-24 07:28 | NUR ---
RT RECEIVED PT TRACH ON VENT WITH NOTED SETTINGS. SYSTEMS SOFTWARE ENGINEER DONE AND TRACH IS SECURE. VENT ALARMS CHECKED AND AUDIBLE. VENT PLUGGED IN RED OUTLET. AMBU BAG NOTED HOB. B/S SAVI RHONCHI SX WITH MOD THK DWYER SECRETIONS. PT TOLERATING SETTINGS WELL. NO SOB OR RESP DISTRESS NOTED. WILL CONTINUE TO MONITOR T/O SHIFT.
--- NOTE | 2018-11-24 07:30 | NUR ---
RN NOTES RECEIVED PATIENT IN BED, ON HIGH HERRERA'S POSITION, OPENS EYES SPONTANEOUSLY BUT APHASIC, TRACH TO VENT, TRACH ON MID LINE POSITION. TOLERATING CURRENT VENT SETTING. NO SOB NOTED AT THIS TIME. SUCTIONED FOR AIRWAY PATENCY- SECRETION WHITISH TO YELLOWISH THIN IN CONSISTENCY. SINUS TACH ON THE MONITOR HR AT 125, PATIENT FEBRILE AT 100.3- WILL ADMINISTER DUE ANTIPYRETIC AND WILL RENDERED SPONGE BATH IN A WHILE TO COOL DOWN PATIENT. PICC LINE TO THE GENO: INTACT AND PATENT, DRESSIGN C/D/I. HD CATH ON THE RCW, DRESSING C/D/I. GT ATTACHED TO INTERMITTENT LOW PRESSURE SUCTION DRAINING TO BROWNISH GASTRIC CONTENT, NOW AT 100CC LEVEL. ASPIRATION AND SAFETY MEASURES PUT IN PLACE. BED LOW AND LOCKED POSITION. CALL LIGHT PLACED WITHIN REACH. WILL CONTINUE TO MONITOR PATIENT CLOSELY
[2018-11-24 07:33] LABS: OCCULT BLOOD STOOL NEGATIVE (NEGATIVE)
[2018-11-24 08:00] VITALS: BP 153/69
--- NOTE | 2018-11-24 08:00 | NUR ---
RN NOTES PRN TYLENOL 650 MG CANNOT BE GIVEN AT THIS TIME DUE TO PATIENT WAS JUST GIVEN AT 4 IN THE MORNING. INITIATED COOLING MEASURES INSTEAD, COOLING PACK ON THE UNDERARM AND FOREHEAD. EXTRA CLOTHING REMOVED. WILL CONTINUE TO MONITOR PATIENT
[2018-11-24] MEDS: DOCUSATE SODIUM LIQ 100 MG/10 ML UDC GT SCH ×2 (08:30→22:49)
[2018-11-24] MEDS: ASPIRIN 81 MG TAB.CHEW GT SCH (08:30)
[2018-11-24] MEDS: BLOOD SUGAR DIAGNOSTIC 1 EACH STRIP IN SCH ×4 (08:30→22:58)
[2018-11-24] MEDS: VIT B CMPLX 3/FA/VIT C/BIOTIN 1 TAB TABLET GT SCH (08:31)
[2018-11-24] MEDS: PANTOPRAZOLE 40 MG/PACK PACK GT SCH (08:31)
[2018-11-24] MEDS: ASCORBIC ACID 500 MG TABLET GT SCH (08:31)
[2018-11-24] MEDS: ZINC SULFATE 220 MG CAPSULE GT SCH (08:31)
[2018-11-24] MEDS: INSULIN GLARGINE, 100 UNIT/ML CARTRIDGE SQ SCH ×2 (08:31→21:00)
[2018-11-24] MEDS: HYDROCODONE/APAP 5/325MG 1 EACH TABLET GT SCH (08:37)
[2018-11-24] MEDS: HEPARIN SODIUM, PORCINE 5000 UNITS/1 ML VIAL SQ SCH (08:40)
[2018-11-24] MEDS: METOPROLOL TARTRATE 50 MG TABLET GT SCH ×2 (08:41→22:50)
--- NOTE | 2018-11-24 11:00 | NUR ---
RN NOTES TYLENOL 650 MG VIA GT PRN FOR FEVER AT 101.3 GIVEN AT THIS TIME. GASTRIC SUCTIONING DISCONTINUED TEMPORARILY FOR MEDICINE FOR MEDICATION ABSORPTION, PATIENT STILL ON COOLING MEASURES. WILL CONTINUE TO MONITOR PATIENT
--- NOTE | 2018-11-24 11:53 | NUR ---
WOUND CARE CONSULT WOUND CARE RECEIVED CONSULT FOR SACRAL WOUND. WOUND CARE WILL DEFER CONSULT AND TREATMENT PLANS TO PLASTIC SURGICAL TEAM INCLUDING DPM DR NAJERA WHO HAVE BEEN NOTIFIED OF THE CONSULT. PATIENT WITH PAULIE AT 12, ALL PRESSURE ULCER PREVENTION MEASURES ARE NOTED TO BE IN PLACE. WILL SEE PRN.
[2018-11-24 12:00] VITALS: BP 117/57
[2018-11-24] MEDS ORDERED: POTASSIUM PHOSPHATE MM 7.5 MMOL in IV D5W 100 ML IV SCH (12:00)
[2018-11-24] MEDS: INSULIN ASPART/LISPRO 100 UNIT/ML CARTRIDGE SQ PRN ×2 (12:35→18:18)
[2018-11-24] MEDS: VANCOMYCIN 0.75 GM in IV D5W 250 ML IV SCH (13:18)
[2018-11-24 16:00] VITALS: BP 150/61
--- NOTE | 2018-11-24 16:00 | NUR ---
RN NOTES PATIENT TEMP AT 102.8 AT THIS TIME HR AT 133. NO SOB NOTED.TEPID SPONGE BATH ADMINISTERED. PROPER VENTILATION INITIATED. COOLING BLANKET APPLIED. PRN TYLENOL 650 MG VIA GT FOR FEVER ADMINISTERED. DR LORENZO AT THE UNIT AT THIS TIME, WAS INFORMED AND GIVEN UPDATE ON THE CURRENT SITUATION OBTAINED ORDERS. ORDERS NOTED AND CARRIED OUT.
--- NOTE | 2018-11-24 16:30 | NUR ---
RN NOTES INFORMED DELLA MERRILL ABOUT COFFEE GROUND GASTRIC CONTENT AMOUNTING TO 300CC FROM INTERMITTENT GASTRIC SUCTIONING. AWAITING RESPONSE
[2018-11-24] MEDS: LACTOBACILLUS RHAMNOSUS GG 1 EACH CAP.SPRINK GT SCH (17:33)
[2018-11-24] MEDS: ONDANSETRON HCL/PF 4 MG/2 ML VIAL IVP PRN (17:36)
[2018-11-24 19:14] LABS: IRON, SERUM 37 ug/dl (50-175); TOTAL IRON BINDING CAPACITY 173 ug/dl (250-450)
[2018-11-24] MEDS: FLUCONAZOLE IN NS 100 MG in PREMIX 1 EA IV SCH ×2 (19:14)
--- NOTE | 2018-11-24 19:33 | NUR ---
RN NOTES ENDORSED FOR CONTINUITY OF CARE. NO ACUTE CHANGES FOR THE ENTIRE SHIFT. PATIENT STILL FEBRILE AT 102.8 ON COOLING BLANKET. GT STILL ATTACHED TO INTERMITTENT GASTRIC SUCTIONING. ALL NURSING NEEDS ATTENDED AND MET. ASPIRATION AND SAFETY MEASURES IN PLACE AT ALL TIMES. CALL LIGHT WITHIN REACH
--- NOTE | 2018-11-24 19:40 | NUR ---
CARTRIDGE FEEDER: RECEIVED CHRONIC VENT DEPENDENT PT, OBTUNDED. WT VENT SETTINGS ORDERED, 02 SAT 96% AND ABOVE. ST ON TELE MONITOR WT TEMP. OF 102.6. CONTINUE ON COOLING BLANKET. GT CONNECTED TO LOW INTERMITTENT SUCTION. GENO PICC INTACT RUNNING ATB ORDERED WT NO S/S OF COMPLICATIONS. F/C PATENT AND INTACT DRAINING MINIMAL YELLOW URINE TO GRAVITY. HOB ON HIGH FOWLERS, BED LOCKED AND IN LOW POSITION WT SR UP X 2. FAMILY AT BEDSIDE. WILL CONTINUE TO MONITOR.
[2018-11-24 20:00] VITALS: BP 112/64
[2018-11-24 20:02] LABS: FERRITIN 2991 ng/mL (8-388)
[2018-11-24] MEDS: FENOFIBRATE NANOCRYS (145 MG) 145 MG TABLET GT SCH (22:49)
[2018-11-24] MEDS: SUCRALFATE 1 G/10 ML UDC GT SCH (22:50)
--- NOTE | 2018-11-24 23:30 | NUR ---
CAFETERIA WORKER: PT ENDORSED TO GARRY HUNTLEY FOR CONTINUITY OF CARE. LOPEZ HERNANDEZ IN TELE UNIT AND MADE AWARE OF PT STILL HAVING FEVER AND OBTAINED ORDER FOR TYLENOL VIA RECTAL SUPP. PT HAD ANOTHER EPISODE OF VOMITING AND GIVEN REGLAN ORDERED. ALSO OBTAINED ORDER TO DC HEPARIN AND ASPIRIN FOR LOW H&H AND TO PLACE DVT PUMPS.
[2018-11-25] VITALS (7 sets, daily range): BP systolic 110–137; BP diastolic 39–89
[2018-11-25] MEDS: ACETAMINOPHEN 650 MG/SUPP.RECT RC PRN ×3 (00:23→15:22)
--- NOTE | 2018-11-25 04:04 | NUR ---
PRODUCTION BOW MAKER NOTES WOUND CARE AND BEDBATH DONE.
[2018-11-25] MEDS: POLYVINYL ALCOHOL 15 ML BOTTLE EACHEYE SCH ×3 (05:06→18:14)
[2018-11-25] MEDS: MEROPENEM 500 MG in IV NS 0.9% 50 ML IV SCH (05:06)
--- NOTE | 2018-11-25 06:44 | NUR ---
COMPUTER SYSTEMS HARDWARE ANALYST NOTES NO ACUTE CHANGES NOTED DURING THE SHIFT. SR ON TELE. PT NPO MIDNIGHT. WILL ENDORSE TO THE AM NURSE FOR CONTINUITY OF CARE. Addendum: 11/25/18 at 0645 by AUDI SERRANO RN USER ERROR. WRONG PT.
--- NOTE | 2018-11-25 06:45 | NUR ---
EQUIPMENT OPERATOR INTERMODAL YARD NOTES PT HAVING FEVER 100-102. THROUGHOUT THE SHIFT. PROVIDED COOLING MEASURES, GIVEN PRN TYLENOL RC. PT KEPT NPO. ON GTUBE INT LOW SUCTION. DRAINING 500CC OF BLACK GREEN FLUID. WILL ENDORSE TO THE AM NURSE FOR CONTINUITY OF CARE.
--- NOTE | 2018-11-25 07:25 | NUR ---
RT PT RECEIVED WITH A [employer] 8 TRACH ON THE VENT WITH NOTED SETTINGS. PT IS AWAKE AND RESPONDS TO STIMULI WHEN SX'D. VENT ALARMS ARE SET AND AUDIBLE WITH BVM BY BEDSIDE. ONLINE MERCHANDISING MANAGER CUFF PRESSURE NOTED. VENT IS PLUGGED INTO RED OUTLET. SX'D SMALL THICK PALE YELLOW SECRETIONS. NO RESPIRATORY DISTRESS NOTED AT THIS TIME, WILL CONTINUE TO MONITOR. Addendum: 11/25/18 at 0858 by SAJAN BOLANOS RT Amended: Links added.
--- NOTE | 2018-11-25 07:30 | NUR ---
RN HANH OPENING NOTES RECEIVED REPORT FROM MICROELECTRONICS TECHNICIAN RN. PT IS ON A VENT. SUCTION SET TO INTERMITTENT. PT IS A&O X1. PT RECEIVING DIALYSIS. PT APPEARS TO BE COMFORTABLE AND NO SIGNS OF RESPIRATORY DISTRESS OR PAIN NOTED. PT IS ST ON SUPERVISOR BONDING. BED IS LOCKED AND IN LOWEST POSITION BED ALARM IS ON. WILL CONTINUE TO MONITOR.
[2018-11-25 07:58] LABS: BASOPHILS # (AUTO) 0.1 /CMM (0.0-0.2); BASOPHILS % (AUTO) 0.3 % (0.0-2.0); EOSINOPHILS % (AUTO) 0.1 % (0.0-6.0); HEMATOCRIT 26 % (39-51); HEMOGLOBIN 8.6 g/dL (13.5-17.5); LYMPHOCYTES # (AUTO) 0.7 /CMM (0.8-4.8); LYMPHOCYTES % (AUTO) 3.2 % (20.0-44.0); MEAN CORPUSCULAR HGB CONC 33 g/dl (31.0-36.0); MEAN CORPUSCULAR VOLUME 96 fL (80-96); MONOCYTES # (AUTO) 0.8 /CMM (0.1-1.30); MONOCYTES % (AUTO) 3.6 % (2.0-12.0); NEUTROPHILS # (AUTO) 19.6 /CMM (1.8-8.9); NEUTROPHILS % (AUTO) 92.8 % (43.0-81.0); PLATELET COUNT (AUTO) 565 /CMM (150-450); RED BLOOD CELL COUNT(AUTO) 2.71 MIL/uL (4.5-6.0); WHITE BLOOD COUNT (AUTO) 21.1 K/uL (4.3-11.0)
[2018-11-25] MEDS: BLOOD SUGAR DIAGNOSTIC 1 EACH STRIP IN SCH ×4 (08:04→21:33)
[2018-11-25 08:19] LABS: CALCIUM, SERUM 8.4 mg/dL (8.5-10.1); CREATININE 4.3 mg/dL (0.6-1.3); PHOSPHORUS 4.6 mg/dL (2.5-4.9); POTASSIUM 3.9 mmol/L (3.5-5.1)
[2018-11-25] MEDS: SUCRALFATE 1 G/10 ML UDC GT SCH ×4 (08:22→21:33)
[2018-11-25 08:33] LABS: ALBUMIN 1.9 g/dL (3.4-5.0); BILIRUBIN,DIRECT 0.1 mg/dL (0.0-0.2); BILIRUBIN,TOTAL 0.5 mg/dL (0.2-1.0); TOTAL PROTEIN, SERUM 7.5 g/dL (6.4-8.2)
[2018-11-25] MEDS: DOCUSATE SODIUM LIQ 100 MG/10 ML UDC GT SCH ×3 (09:00→21:33)
[2018-11-25] MEDS: INSULIN GLARGINE, 100 UNIT/ML CARTRIDGE SQ SCH ×2 (09:00→21:00)
[2018-11-25] MEDS: LACTOBACILLUS RHAMNOSUS GG 1 EACH CAP.SPRINK GT SCH ×2 (09:04→17:34)
[2018-11-25] MEDS: ZINC SULFATE 220 MG CAPSULE GT SCH (09:04)
[2018-11-25] MEDS: ASCORBIC ACID 500 MG TABLET GT SCH (09:05)
[2018-11-25] MEDS: HYDROCODONE/APAP 5/325MG 1 EACH TABLET GT SCH (09:05)
[2018-11-25] MEDS: VIT B CMPLX 3/FA/VIT C/BIOTIN 1 TAB TABLET GT SCH (09:05)
[2018-11-25] MEDS: PANTOPRAZOLE 40 MG VIAL IV SCH ×2 (09:05→17:34)
[2018-11-25] MEDS: METOPROLOL TARTRATE 50 MG TABLET GT SCH ×2 (09:06→21:32)
[2018-11-25] MEDS: IV D5/0.45 NACL 1,000 ML IV SCH (10:47)
[2018-11-25] MEDS: DAKINS QUARTER STRENGTH (0.125%) 480 ML BOTTLE TOP SCH ×2 (12:49→17:35)
[2018-11-25] MEDS ORDERED: VANCOMYCIN 500 MG in IV D5W 100 ML IV PRN (13:00)
[2018-11-25] MEDS ORDERED: VANCOMYCIN 0.75 GM in IV D5W 250 ML IV SCH (14:00)
--- NOTE | 2018-11-25 14:30 | NUR ---
ENT CONSULTANT NOTES TEMP RETAKEN 102.9 RECTAL TEMP. COOLING MEASURES WITH A ICE BATH, ICE PACK UNDER LEFT ARM, COOL CLOTH ON FOREHEAD AND COOLING BLANKET PERFORMED. PER DAUGHTER INGRID FAMILY ONLY WANTS THE COOLING BLANKET ON TOP OF THE PT NOT ON THE BACK WITH A BLANKET BETWEEN THE PT AND THE COOLING BLANKET.
--- NOTE | 2018-11-25 15:30 | NUR ---
RN HANH NOTES TYLENOL SUPPOSITORY GIVEN FOR PT'S TEMP. 103.2
[2018-11-25] MEDS: COLISTIMETHATE SODIUM 100 MG in IV NS 0.9% 50 ML IV SCH (18:13)
--- NOTE | 2018-11-25 19:30 | NUR ---
RN CLOSING NOTES GAVE REPORT TO TRAIL MAINTENANCE WORKER RN. PT IS ON A VENT. SUCTION SET TO INTERMITTENT. PT IS A&O X1. PT RECEIVING DIALYSIS. PT APPEARS TO BE COMFORTABLE AND NO SIGNS OF RESPIRATORY DISTRESS OR PAIN NOTED. PT IS ST ON COPRA PROCESSOR. BED IS LOCKED AND IN LOWEST POSITION BED ALARM IS ON. WILL CONTINUE TO MONITOR. 275 IS THE OUTPUT FOR THE INTERMITTENT SUCTIONING. PT IS STILL RUNNING A FEVER AT 103.8 WITH COOLING BLANKET AND ICE PACK ON. PER FAMILIES REQUEST THE COOLING BLANKET IS ON TOP OF THE PT WITH A SHEET IN BETWEEN. FAMILY DOES NOT WANT THE COOLING BLANKET ON THE BACK OF THE PT.
[2018-11-25] MEDS: METRONIDAZOLE 500 MG TABLET PO SCH (21:33)
[2018-11-25] MEDS: FENOFIBRATE NANOCRYS (145 MG) 145 MG TABLET GT SCH (21:33)
[2018-11-25] MEDS: MICAFUNGIN SODIUM 150 MG in IV NS 0.9% 100 ML IV SCH (21:35)
[2018-11-25] MEDS: ACETAMINOPHEN 325 MG TABLET PO PRN (21:48)
[2018-11-26] VITALS: BP 93/44
[2018-11-26] MEDS: IV D5/0.45 NACL 1,000 ML IV SCH (03:22)
[2018-11-26] MEDS: ACETAMINOPHEN 325 MG TABLET PO PRN ×3 (03:27→15:18)
[2018-11-26] MEDS: METRONIDAZOLE 500 MG TABLET PO SCH ×3 (05:41→22:44)
[2018-11-26] MEDS: POLYVINYL ALCOHOL 15 ML BOTTLE EACHEYE SCH ×5 (05:42→23:13)
[2018-11-26 06:00] VITALS: BP 141/63
--- NOTE | 2018-11-26 06:54 | NUR ---
INSURANCE EXECUTIVE NOTES AWAKE & NON VERBAL. RESPONSIVE TO TACTILE STIMULI. NOT IN ANY DISTRESS. NO SOB NOTED. NO S/SX OF ANY PAIN OR DISCOMFORT AT THIS TIME. ON TELE ST @ 107 WITH WITH IVF INFUSING WELL. AM CARE DONE. MONITORED ACCORDINGLY. CALL LIGHT WITHIN REACH. BED IN LOWEST POSITION. SR UP X 3 WITH BED ALARM ON FOR SAFETY. WILL ENDORSE TO NEXT SHIFT.
[2018-11-26 07:13] LABS: CALCIUM, SERUM 7.7 mg/dL (8.5-10.1); CREATININE 4.1 mg/dL (0.6-1.3); MAGNESIUM 1.7 mg/dL (1.8-2.4); PHOSPHORUS 2.4 mg/dL (2.5-4.9)
[2018-11-26 07:30] LABS: BASOPHILS % (AUTO) 0.1 % (0.0-2.0); EOSINOPHILS % (AUTO) 0.2 % (0.0-6.0); HEMATOCRIT 22 % (39-51); HEMOGLOBIN 7.4 g/dL (13.5-17.5); LYMPHOCYTES # (AUTO) 1.1 /CMM (0.8-4.8); LYMPHOCYTES % (AUTO) 5.7 % (20.0-44.0); MEAN CORPUSCULAR HGB CONC 33 g/dl (31.0-36.0); MEAN CORPUSCULAR VOLUME 95 fL (80-96); MONOCYTES # (AUTO) 0.9 /CMM (0.1-1.30); MONOCYTES % (AUTO) 4.7 % (2.0-12.0); NEUTROPHILS # (AUTO) 18.1 /CMM (1.8-8.9); NEUTROPHILS % (AUTO) 89.3 % (43.0-81.0); PLATELET COUNT (AUTO) 473 /CMM (150-450); RED BLOOD CELL COUNT(AUTO) 2.36 MIL/uL (4.5-6.0); WHITE BLOOD COUNT (AUTO) 20.3 K/uL (4.3-11.0)
[2018-11-26 08:00] VITALS: BP 137/76
[2018-11-26] MEDS: PANTOPRAZOLE 40 MG VIAL IV SCH ×2 (08:47→16:28)
[2018-11-26] MEDS: VIT B CMPLX 3/FA/VIT C/BIOTIN 1 TAB TABLET GT SCH (08:47)
[2018-11-26] MEDS: SUCRALFATE 1 G/10 ML UDC GT SCH ×4 (08:47→22:40)
[2018-11-26] MEDS: ASCORBIC ACID 500 MG TABLET GT SCH (08:47)
[2018-11-26] MEDS: DOCUSATE SODIUM LIQ 100 MG/10 ML UDC GT SCH ×2 (08:47→22:44)
[2018-11-26] MEDS: LACTOBACILLUS RHAMNOSUS GG 1 EACH CAP.SPRINK GT SCH ×2 (08:47→16:27)
[2018-11-26] MEDS: ZINC SULFATE 220 MG CAPSULE GT SCH (08:47)
[2018-11-26] MEDS: METOPROLOL TARTRATE 50 MG TABLET GT SCH ×2 (08:48→22:42)
[2018-11-26] MEDS: DAKINS QUARTER STRENGTH (0.125%) 480 ML BOTTLE TOP SCH ×2 (08:53→16:28)
[2018-11-26] MEDS: HYDROCODONE/APAP 5/325MG 1 EACH TABLET GT SCH (08:53)
[2018-11-26] MEDS: INSULIN GLARGINE, 100 UNIT/ML CARTRIDGE SQ SCH ×2 (09:00→21:00)
[2018-11-26] MEDS: BLOOD SUGAR DIAGNOSTIC 1 EACH STRIP IN SCH ×4 (09:03→22:56)
[2018-11-26] MEDS: IV D5/0.45 NACL 1,000 ML IV PRN (09:54)
[2018-11-26] MEDS: POTASSIUM CL. PREMIX PERIPHER. 50 ML IV SCH ×6 (10:07→15:16)
[2018-11-26] MEDS ORDERED: Magnesium 1GM/D5W 100ML PREMIX 100 ML IV SCH (10:30)
--- NOTE | 2018-11-26 11:30 | NUR ---
RN NOTE PT NOTED TO HAVE PUS LEAKING FROM MIDLINE SITE, DR LORENZO NOTIFIED AND SAW PT, ORDERED TO REMOVE THE CATHETER AND SEND THE TIP FOR CULTURE. PT REMAINS FEBRILE AND TACHYCARDIC, GTUBE ON LIS, MINIMAL DRAINAGE, PINK/CLEAR COLOR.
[2018-11-26 12:00] VITALS: BP 107/55
[2018-11-26] MEDS ORDERED: POTASSIUM PHOSPHATE MM 7.5 MMOL in IV D5W 100 ML IV SCH (14:00)
[2018-11-26 16:00] VITALS: BP 119/51
--- NOTE | 2018-11-26 16:31 | NUR ---
RN NOTE PER DR LORENZO TO GIVE 40 MEQ OF POTASSIUM INSTEAD OF 60 MEQ AND 1 G MAGNESIUM. WILL CARRY OUT AND MONITOR PT CLOSELY.
[2018-11-26] MEDS: COLISTIMETHATE SODIUM 100 MG in IV NS 0.9% 50 ML IV SCH (17:34)
--- NOTE | 2018-11-26 18:30 | NUR ---
RN NOTE SPOKE WITH DELLA MERRILL, AND REPORTED TO HER ABOUT MINIMAL DRAINAGE FROM G TUBE, AND X2 LIQUID DARK GREEN STOOLS. SHE ORDERED TO RESUME TUBE FEEDING, AND COLLECT STOOL FOR C-DFIFF. WILL FOLLOW TROUGH AND FOLLOW THE C DIFF PROTOCOL.. WILL ENDORSE TO SPECIAL EDUCATION PARAPROFESSIONAL.
--- NOTE | 2018-11-26 19:45 | NUR ---
PT RECEIVED WITH A SHILEY 8 TRACH ON THE VENT WITH NOTED SETTINGS. PT IS AWAKE,NON VERBAL, RESPONDS TO STIMULI WHEN SUCTION. VENT ALARMS ARE SET AND AUDIBLE WITH AMBU BAG @ BEDSIDE. ASSISTANT BANQUET MANAGER CUFF PRESSURE NOTED. VENT IS PLUGGED INTO RED OUTLET. SX'D MODERATE AMOUNT OF THICK PALE YELLOW SECRETIONS. NO RESPIRATORY DISTRESS NOTED AT THIS TIME, WILL CONTINUE TO MONITOR.
[2018-11-26 20:00] VITALS: BP 110/48
--- NOTE | 2018-11-26 20:00 | NUR ---
RN INITIAL NOTES RECEIVED PT RESTING IN BED, AWAKE & NON VERBAL. HD IN PROCESS. NO S/SX OF ANY PAIN OR DISCOMFORT AT THIS TIME. ON TELE ST @ 115 WITH WITH IVF INFUSING WELL ORDERED. COOLING MEASURES IN PROCESS. CALL LIGHT WITHIN REACH. BED IN LOWEST POSITION. SR UP X 3 WITH BED ALARM ON FOR SAFETY. WILL CONT TO MONITOR.
--- NOTE | 2018-11-26 22:00 | NUR ---
RN NOTES. NO FLUIDS REMOVED FROM HD. TUBE FEEDING HELD BECAUSE PT VOMITED WHEN MEDS AND FLUSH WAS GIVEN IN GT TUBE. CONT COOLING MEASURES. WILL CONT TO MONITOR PT CLOSELY.
[2018-11-26] MEDS: FENOFIBRATE NANOCRYS (145 MG) 145 MG TABLET GT SCH (22:40)
[2018-11-26] MEDS: MICAFUNGIN SODIUM 150 MG in IV NS 0.9% 100 ML IV SCH (22:42)
[2018-11-26] MEDS: NEPRO 1,000 ML BOTTLE GT PRN (23:12)
[2018-11-26] MEDS: METOCLOPRAMIDE HCL 10 MG/2 ML VIAL IV PRN (23:23)
[2018-11-27] VITALS (10 sets, daily range): BP systolic 86–135; BP diastolic 42–83
[2018-11-27] MEDS: NEPRO 1,000 ML BOTTLE GT PRN (04:00)
[2018-11-27] MEDS: METRONIDAZOLE 500 MG TABLET PO SCH ×3 (05:09→22:26)
[2018-11-27] MEDS: POLYVINYL ALCOHOL 15 ML BOTTLE EACHEYE SCH ×3 (05:15→17:27)
[2018-11-27] MEDS: ACETAMINOPHEN 325 MG TABLET PO PRN ×3 (05:18→22:43)
--- NOTE | 2018-11-27 06:34 | NUR ---
RN CLOSING NOTES PTS B/P IS LOW CHIEF ACCOUNTING OFFICER TEXT AND PAGED, CHARGE NURSE AWARE . PT HAD A TEMP OVER NIGHT, TYLENOL GIVE AND OTHER COOLING MEASURES CONT OVERNIGHT. TUBE FEEDING STATER, WILL CONT TO MONITOR AND ENDORSE TO AM RN.
[2018-11-27 06:44] LABS: BASOPHILS # (AUTO) 0.1 /CMM (0.0-0.2); BASOPHILS % (AUTO) 0.5 % (0.0-2.0); EOSINOPHILS % (AUTO) 0.7 % (0.0-6.0); HEMATOCRIT 21 % (39-51); LYMPHOCYTES # (AUTO) 1.4 /CMM (0.8-4.8); LYMPHOCYTES % (AUTO) 8.1 % (20.0-44.0); MEAN CORPUSCULAR HGB CONC 33 g/dl (31.0-36.0); MEAN CORPUSCULAR VOLUME 96 fL (80-96); MONOCYTES # (AUTO) 0.6 /CMM (0.1-1.30); MONOCYTES % (AUTO) 3.6 % (2.0-12.0); NEUTROPHILS # (AUTO) 15.6 /CMM (1.8-8.9); NEUTROPHILS % (AUTO) 87.1 % (43.0-81.0); PLATELET COUNT (AUTO) 501 /CMM (150-450); WHITE BLOOD COUNT (AUTO) 17.8 K/uL (4.3-11.0)
[2018-11-27 06:51] LABS: HEMOGLOBIN 6.9 g/dL (13.5-17.5)
[2018-11-27 06:52] LABS: CALCIUM, SERUM 8.2 mg/dL (8.5-10.1); MAGNESIUM 1.9 mg/dL (1.8-2.4); PHOSPHORUS 2.1 mg/dL (2.5-4.9); POTASSIUM 3.9 mmol/L (3.5-5.1)
--- NOTE | 2018-11-27 07:00 | NUR ---
RN INITIAL NOTES RECEIVED PT RESTING IN BED, AWAKE & NON VERBAL. PT ON VENT SETTINGS MD ORDERED. NO S/SX OF ANY PAIN OR DISCOMFORT AT THIS TIME. ON TELE ST @ 110 WITH IVF INFUSING WELL ORDERED. COOLING MEASURES IN PROCESS. CALL LIGHT WITHIN REACH. BED IN LOWEST POSITION. HOB ELEVATED. PAPPAS CATH DRAINING SCANT CLOUDY, DARK YELLOW URINE. NO RESIDUAL FROM GTUBE. IV SITE LEFT WRIST C/D/P/I. R WRIST IV UNABLE TO FLUSH. SIDE RAILS UP X 2 WITH BED ALARM ON FOR SAFETY. WILL CONT TO MONITOR.
[2018-11-27] MEDS: BLOOD SUGAR DIAGNOSTIC 1 EACH STRIP IN SCH ×4 (07:30→22:29)
--- NOTE | 2018-11-27 07:55 | NUR ---
RN NOTES I UNITE OF PRB ORDERED PER MARY ORELLANA NP
[2018-11-27 08:25] LABS: EOSINOPHILS % (MANUAL) 3 % (0-4); LYMPHOCYTES % (MANUAL) 8 % (16-48); MONOCYTES % (MANUAL) 4 % (0-11.0); NEUTROPHILS % (MANUAL) 85 (42-76)
[2018-11-27] MEDS: METOPROLOL TARTRATE 50 MG TABLET GT SCH ×2 (09:00→22:33)
[2018-11-27] MEDS: DOCUSATE SODIUM LIQ 100 MG/10 ML UDC GT SCH (09:00)
[2018-11-27] MEDS: INSULIN GLARGINE, 100 UNIT/ML CARTRIDGE SQ SCH ×2 (09:00→21:00)
[2018-11-27] MEDS: HYDROCODONE/APAP 5/325MG 1 EACH TABLET GT SCH (09:27)
[2018-11-27] MEDS: ERGOCALCIFEROL (VITAMIN D 2) 50,000 UNIT CAPSULE GT SCH (09:28)
[2018-11-27] MEDS: PANTOPRAZOLE 40 MG VIAL IV SCH ×2 (09:28→16:58)
[2018-11-27] MEDS: ASCORBIC ACID 500 MG TABLET GT SCH (09:28)
[2018-11-27] MEDS: ZINC SULFATE 220 MG CAPSULE GT SCH (09:28)
[2018-11-27] MEDS: LACTOBACILLUS RHAMNOSUS GG 1 EACH CAP.SPRINK GT SCH ×2 (09:28→16:58)
[2018-11-27] MEDS: SUCRALFATE 1 G/10 ML UDC GT SCH ×4 (09:28→22:23)
[2018-11-27] MEDS: VIT B CMPLX 3/FA/VIT C/BIOTIN 1 TAB TABLET GT SCH (09:28)
[2018-11-27] MEDS: DAKINS QUARTER STRENGTH (0.125%) 480 ML BOTTLE TOP SCH ×2 (09:30→17:04)
[2018-11-27] MEDS ORDERED: ALBUMIN 25% 25 GM in PREMIX 1 EA IV ONE (09:30)
[2018-11-27] MEDS: IV D5/0.45 NACL 1,000 ML IV PRN (10:03)
--- NOTE | 2018-11-27 10:26 | NUR ---
CAPTAIN ROOM SERVICE NOTES 1 PACK PRBC GIVEN WITH DIALYSIS. PT TOLERATED WELL. NO S/SX OF REACTION NOTED.
--- NOTE | 2018-11-27 11:29 | NUR ---
CARDIAC SONOGRAPHER NOTES DR LORENZO ROUNDED WITH PT. PER DR LORENZO, OG COLACE. OK TO CHECK H/H TMRW AM WITH LABS. OK TO PLACE FLEXISEAL.
[2018-11-27] MEDS ORDERED: LIDOCAINE 1% INJ 50 ML MDV IJ ONE (14:30)
[2018-11-27] MEDS: COLISTIMETHATE SODIUM 100 MG in IV NS 0.9% 50 ML IV SCH (17:05)
[2018-11-27] MEDS ORDERED: Sodium Phosphate 7.5 MMOL in IV D5W 100 ML IV ONE (18:00)
--- NOTE | 2018-11-27 20:00 | NUR ---
RN INITIAL NOTE UPON ASSESSMENT, PT IS OBTUNDED, FAMILY AT BEDSIDE. IV FLUIDS RUNNING ORDERED. G TUBE PATENT AND FEEDING AT ORDERED RATE. HOB IN HIGH FOWLERS. PAPPAS IN PLACE, DRAINING TO GRAVITY (DARK LUC, LOW OUTPUT). RECTAL TUBE IN PLACE (BROWN AND WATERY). PT HAS COOLING MEASURES IN PLACE (COOLING BLANKET, ICE PACKS). BED IN LOW AND LOCKED POSITION. WILL CONTINUE TO MONITOR.
[2018-11-27] MEDS: FENOFIBRATE NANOCRYS (145 MG) 145 MG TABLET GT SCH (22:24)
[2018-11-27] MEDS: MICAFUNGIN SODIUM 150 MG in IV NS 0.9% 100 ML IV SCH (22:24)
[2018-11-28] VITALS: BP 122/50
[2018-11-28] MEDS: POLYVINYL ALCOHOL 15 ML BOTTLE EACHEYE SCH ×5 (00:06→23:19)
[2018-11-28 04:00] VITALS: BP 101/52
[2018-11-28] MEDS: METRONIDAZOLE 500 MG TABLET PO SCH ×3 (04:11→21:09)
[2018-11-28] MEDS: ACETAMINOPHEN 325 MG TABLET PO PRN ×2 (05:08→21:09)
--- NOTE | 2018-11-28 06:58 | NUR ---
RN CLOSING NOTES PT STILL HAD A TEMP OVERNIGHT, TYLENOL GIVE AND OTHER COOLING MEASURES CONT OVERNIGHT. TUBE FEEDING RUNNING ORDERED , PAPPAS IN PLACE. FLEXISEAL IN PLACE. WILL CONT TO MONITOR AND ENDORSE TO AM RN.
[2018-11-28 07:05] LABS: BASOPHILS # (AUTO) 0.1 /CMM (0.0-0.2); BASOPHILS % (AUTO) 0.4 % (0.0-2.0); EOSINOPHILS % (AUTO) 3.1 % (0.0-6.0); HEMATOCRIT 23 % (39-51); HEMOGLOBIN 7.7 g/dL (13.5-17.5); LYMPHOCYTES # (AUTO) 1.5 /CMM (0.8-4.8); LYMPHOCYTES % (AUTO) 8.2 % (20.0-44.0); MEAN CORPUSCULAR HGB CONC 34 g/dl (31.0-36.0); MEAN CORPUSCULAR VOLUME 92 fL (80-96); MONOCYTES # (AUTO) 0.8 /CMM (0.1-1.30); MONOCYTES % (AUTO) 4.4 % (2.0-12.0); NEUTROPHILS % (AUTO) 83.9 % (43.0-81.0); PLATELET COUNT (AUTO) 426 /CMM (150-450); RED BLOOD CELL COUNT(AUTO) 2.46 MIL/uL (4.5-6.0); WHITE BLOOD COUNT (AUTO) 17.9 K/uL (4.3-11.0)
--- NOTE | 2018-11-28 07:10 | NUR ---
AFRICANA STUDIES PROFESSOR OPENING NOTES RECEIVED PT LYING ON BED.WITH VENT DEPENDENT AND OBTUNDED.ON TELE HR IS [address]NO SOB AND ACUTE DISTRESS NOTED.COOLING BLANKET AND FLEXISEAL IS PRESENT.FC AND G TUBE IS IN PLACE.MINIMAL RESIDUAL NOTED.IV LINE IS ON RIGHT AND LEFT WRIST G20,AND DIALYSIS CATH IS ON RIGHT CHEST WALL.SITE IS CLEAN,DRY AND INTACT.NO INFILTRATION NOTED.SAFETY IS MAINTAINED AT ALL TIMES.BED IS IN LOW POSITION AND LOCKED.CALL LIGHT IS WITHIN REACH.WILL CONTINUE TO MONITOR THE PT CLOSELY .
[2018-11-28] MEDS: SUCRALFATE 1 G/10 ML UDC GT SCH ×4 (07:30→21:09)
[2018-11-28 07:35] LABS: CALCIUM, SERUM 7.9 mg/dL (8.5-10.1); MAGNESIUM 1.8 mg/dL (1.8-2.4); PHOSPHORUS 3.1 mg/dL (2.5-4.9); POTASSIUM 3.3 mmol/L (3.5-5.1)
[2018-11-28 08:00] VITALS: BP 109/58
[2018-11-28 08:17] LABS: BAND % (MANUAL) 7 % (0.0-5.0); EOSINOPHILS % (MANUAL) 3 % (0-4); LYMPHOCYTES % (MANUAL) 9 % (16-48); MONOCYTES % (MANUAL) 1 % (0-11.0); NEUTROPHILS % (MANUAL) 80 (42-76)
[2018-11-28] MEDS: BLOOD SUGAR DIAGNOSTIC 1 EACH STRIP IN SCH ×4 (08:25→21:08)
--- NOTE | 2018-11-28 08:30 | NUR ---
FITNESS COACH NOTES HEMO DIALYSIS IS STARTED.
--- NOTE | 2018-11-28 08:31 | NUR ---
POSITION CLASSIFIER NOTES PT IS HAVING HD NOW,HOLD ALL THE AM MEDS VIA G TUBE.
[2018-11-28] MEDS: METOPROLOL TARTRATE 50 MG TABLET GT SCH ×2 (09:00→21:00)
[2018-11-28] MEDS: LACTOBACILLUS RHAMNOSUS GG 1 EACH CAP.SPRINK GT SCH ×2 (09:00→17:34)
[2018-11-28] MEDS: VIT B CMPLX 3/FA/VIT C/BIOTIN 1 TAB TABLET GT SCH (09:00)
[2018-11-28] MEDS: ASCORBIC ACID 500 MG TABLET GT SCH (09:00)
[2018-11-28] MEDS: ZINC SULFATE 220 MG CAPSULE GT SCH (09:00)
[2018-11-28] MEDS: HYDROCODONE/APAP 5/325MG 1 EACH TABLET GT SCH (09:00)
[2018-11-28] MEDS: INSULIN GLARGINE, 100 UNIT/ML CARTRIDGE SQ SCH ×2 (09:00→21:00)
[2018-11-28] MEDS: PANTOPRAZOLE 40 MG VIAL IV SCH ×2 (09:19→17:34)
[2018-11-28] MEDS: DAKINS QUARTER STRENGTH (0.125%) 480 ML BOTTLE TOP SCH ×2 (09:54→17:35)
--- NOTE | 2018-11-28 10:00 | NUR ---
CLASSICS PROFESSOR NOTES HD HAS DONE,PT TOLERATED WELL.VITAL SIGNS STABLE.NO SOB AND ACUTE DISTRESS NOTED.
--- NOTE | 2018-11-28 10:11 | NUR ---
RT PT RECEIVED WITH A SHILEY #8 TRACH ON MECHANICAL VENT WITH NOTED SETTINGS. HEAD OF STORE OPERATIONS CUFF PRESSURE NOTED. VENT PLUGGED INTO RED OUTLET. AMBU BAG AT BEDSIDE. VENT ALARMS ON AND AUDIBLE. SUCTIONED SMALL AMOUNTS OF THICK, PALE YELLOW SECRETIONS. NO SIGNS OF DISTRESS NOTED AT THIS TIME. WILL CONTINUE TO MONITOR THE PT FOR ANY CHANGES. Addendum: 11/28/18 at 1057 by MAURICE ROCK RT Amended: Links added.
[2018-11-28 12:00] VITALS: BP 119/75
[2018-11-28] MEDS: IV D5/0.45 NACL 1,000 ML IV PRN (12:17)
--- NOTE | 2018-11-28 12:28 | NUR ---
PERSONNEL PLACEMENT SPECIALIST NOTES PT IS NOTED WITH RESTLESS AND TACHYCARDIA OF 135-137.PAIN MEDS NORCO 5/325MG IS GIVEN.STILL TACHYCARDIA 140.DR.SANTA LORENZO ORDERED TO GIVE TAB METOPROLOL 100MG VIA G TUBE ONCE.NEW ORDERS NOTED AND CARRIED OUT.
[2018-11-28] MEDS ORDERED: METOPROLOL TARTRATE 50 MG TABLET GT ONE (12:30)
[2018-11-28 16:00] VITALS: BP 96/63
--- NOTE | 2018-11-28 17:30 | NUR ---
INSIDE SALES NOTES PT IS VOMITED X1 WHILE CLEANING,HOLD G TUBE FEEDING AND NO SIGNS OF ASPIRATION NOTED.MD MADE AWARE.
[2018-11-28] MEDS: COLISTIMETHATE SODIUM 100 MG in IV NS 0.9% 50 ML IV SCH (17:34)
--- NOTE | 2018-11-28 17:50 | NUR ---
TERRAZZO FINISHER NOTES BS IS 154,HOLD INSULIN PT IS HOLD FOR G TUBE FEEDING.
[2018-11-28] MEDS: METOCLOPRAMIDE HCL 10 MG/2 ML VIAL IV PRN (18:16)
--- NOTE | 2018-11-28 18:50 | NUR ---
CHRISTIAN SCIENCE NURSE NOTES PT VOMITED AGAIN.DYNAMIC BALANCER SET UP WORKER DELLA ORDERED TO CHANGE IV REGLAN 5MG Q6HR DAILY.NEW ORDERS NOTED AND CARRIED OUT.
--- NOTE | 2018-11-28 19:00 | NUR ---
QUALITY ASSURANCE ENGINEER CLOSING NOTES PT IS LYING ON BED.G TUBE IS ON HOLD.NO VOMITING NOTED.ON VENT DEPENDENT,TOLERATING WELL.ENDORSED TO WEED COOKING OPERATOR RN FOR MARKELL.
--- NOTE | 2018-11-28 19:32 | NUR ---
REBAR BENDER NOTES RECEIVED PT ON BED. OBTUNDED. ON [facility] VENT SETTING SATURATING 94% NO RESPIRATORY DISTRESS NOTED. ON TELE MONITOR ST 108. ON FLEXISEAL DRAINING DARK GREENISH STOOL. ON FC DRAINING YELLOW URINE. GTUBE ON HOLD DUE TO RESIDUAL. PT ON COOLING BLANKER TEMPT OF 102. 7F . HEAD OF BED ELEVATED. SIDE RAILS UP. CALL LIGHT WITHIN REACH. BED ALARM ON. WILL CONTINUE TO MONITOR PT CLOSELY.
--- NOTE | 2018-11-28 19:43 | NUR ---
PT RECEIVED WITH A SHILEY 8 TRACH ON THE VENT WITH NOTED SETTINGS. PT IS OBTUNDED, RESPONDS TO STIMULI WHEN SUCTION. VENT ALARMS ARE SET AND AUDIBLE WITH AMBU BAG @ BEDSIDE. DIRECTOR APPAREL CUFF PRESSURE NOTED. VENT IS PLUGGED INTO RED OUTLET. SX'D MODERATE AMOUNT OF THICK PALE YELLOW/DWYER SECRETIONS. NO RESPIRATORY DISTRESS NOTED AT THIS TIME, WILL CONTINUE TO MONITOR.
--- NOTE | 2018-11-28 19:50 | NUR ---
ALLOPATHIC DOCTOR NOTES PER DELLA MANUAL ARTS THERAPIST, HOLDING EGD FOR NOW SINCE PT HAD IT 2 WEEKS AGO IN ANOTHER HOSPITAL, PER DELLA RETRIEVE PREVIOUS EGD RESULT.
[2018-11-28 20:00] VITALS: BP 94/50
[2018-11-28] MEDS: FENOFIBRATE NANOCRYS (145 MG) 145 MG TABLET GT SCH (21:09)
[2018-11-28] MEDS: MICAFUNGIN SODIUM 150 MG in IV NS 0.9% 100 ML IV SCH (21:09)
--- NOTE | 2018-11-28 21:22 | NUR ---
STERILE PROCESS TECH NOTES INSULIN LANTUS NOT GIVEN, PT NPO.
[2018-11-28] MEDS: METOCLOPRAMIDE HCL 10 MG/2 ML VIAL IV SCH (23:19)
[2018-11-29] VITALS (9 sets, daily range): BP systolic 95–130; BP diastolic 44–75
[2018-11-29] MEDS: METRONIDAZOLE 500 MG TABLET PO SCH ×3 (05:04→21:07)
[2018-11-29] MEDS: METOCLOPRAMIDE HCL 10 MG/2 ML VIAL IV SCH ×4 (05:04→23:38)
[2018-11-29] MEDS: ACETAMINOPHEN 325 MG TABLET PO PRN ×4 (05:04→23:46)
[2018-11-29] MEDS: POLYVINYL ALCOHOL 15 ML BOTTLE EACHEYE SCH ×4 (05:06→23:39)
[2018-11-29] MEDS: NEPRO 1,000 ML BOTTLE GT PRN (05:17)
[2018-11-29 06:49] LABS: BASOPHILS # (AUTO) 0.1 /CMM (0.0-0.2); BASOPHILS % (AUTO) 0.5 % (0.0-2.0); EOSINOPHILS % (AUTO) 3.7 % (0.0-6.0); HEMATOCRIT 22 % (39-51); HEMOGLOBIN 7.4 g/dL (13.5-17.5); LYMPHOCYTES # (AUTO) 2.5 /CMM (0.8-4.8); LYMPHOCYTES % (AUTO) 13.1 % (20.0-44.0); MEAN CORPUSCULAR HGB CONC 34 g/dl (31.0-36.0); MEAN CORPUSCULAR VOLUME 93 fL (80-96); MONOCYTES # (AUTO) 1.5 /CMM (0.1-1.30); MONOCYTES % (AUTO) 7.7 % (2.0-12.0); NEUTROPHILS # (AUTO) 14.3 /CMM (1.8-8.9); PLATELET COUNT (AUTO) 406 /CMM (150-450); RED BLOOD CELL COUNT(AUTO) 2.36 MIL/uL (4.5-6.0)
[2018-11-29 07:20] LABS: CALCIUM, SERUM 7.8 mg/dL (8.5-10.1); CREATININE 2.6 mg/dL (0.6-1.3); MAGNESIUM 1.8 mg/dL (1.8-2.4); PHOSPHORUS 1.2 mg/dL (2.5-4.9)
[2018-11-29 07:23] LABS: POTASSIUM 2.8 mmol/L (3.5-5.1)
--- NOTE | 2018-11-29 07:24 | NUR ---
PIPE BOWLS PAINT TRIMMER NOTES LAB CALLED POTASSIUM OF 2.9. DIALYSIS NURSE INFORMED AT BEDSIDE. ENDORSE TO AM NURSE.
--- NOTE | 2018-11-29 07:26 | NUR ---
RN OPENING NOTE PT WAS RECIEVED IN BED AT LOWEST AND LOCKED POSITION WITH SIDE RAILS UP X2, OBTUNDED, BREATHING EVEN AND UNLABORED ON VENT, NO S/S OF DISTRESS NOTED AT THIS TIME, NOTED TO BE ON TELE MONITOR SINUS TACH, IV IS PATENT AND INTACT, INFORMED BY MEAT COUNTER WORKER RN THAT PT WILL HAVE PERMACATH REMOVAL TODAY AT THE BEDSIDE WITH CONSENTS SIGNED, SAFETY PRECAUTIONS IN PLACE, CALL LIGHT WITHIN REACH, WILL MONITOR ACCORDINGLY.
[2018-11-29] MEDS: BLOOD SUGAR DIAGNOSTIC 1 EACH STRIP IN SCH ×4 (07:30→21:08)
--- NOTE | 2018-11-29 08:30 | NUR ---
RN NOTE METOPROLOL HELD DUE TO PT GETTING DIALYSIS AT THIS TIME. INSULIN LANTUS HELD DUE TO PT BLOOD GLUCOSE BEING 99 AND ON SLOW GT FEEDING. WILL MONITOR ACCORDINGLY.
[2018-11-29] MEDS: INSULIN GLARGINE, 100 UNIT/ML CARTRIDGE SQ SCH ×2 (09:00→21:00)
[2018-11-29] MEDS: METOPROLOL TARTRATE 50 MG TABLET GT SCH ×2 (09:00→21:08)
[2018-11-29] MEDS: VIT B CMPLX 3/FA/VIT C/BIOTIN 1 TAB TABLET GT SCH (09:06)
[2018-11-29] MEDS: ZINC SULFATE 220 MG CAPSULE GT SCH (09:06)
[2018-11-29] MEDS: LACTOBACILLUS RHAMNOSUS GG 1 EACH CAP.SPRINK GT SCH ×2 (09:06→17:02)
[2018-11-29] MEDS: HYDROCODONE/APAP 5/325MG 1 EACH TABLET GT SCH (09:06)
[2018-11-29] MEDS: ASCORBIC ACID 500 MG TABLET GT SCH (09:06)
[2018-11-29] MEDS: PANTOPRAZOLE 40 MG VIAL IV SCH ×2 (09:07→17:02)
[2018-11-29] MEDS: SUCRALFATE 1 G/10 ML UDC GT SCH ×4 (09:07→21:08)
[2018-11-29] MEDS: DAKINS QUARTER STRENGTH (0.125%) 480 ML BOTTLE TOP SCH ×2 (09:08→17:03)
[2018-11-29] MEDS ORDERED: NEUTRA PHOS 1 POWD.PACKET NG ONE (11:30)
--- NOTE | 2018-11-29 12:15 | NUR ---
RN NOTE CALL RECEIVED FROM BRENDEN JACKSON AT [facility] AT THIS TIME THAT PATIENT TESTED POSITIVE FOR CRE OF THE CATH. ISOLATION PRECAUTIONS IMPLEMENTED AND CARRIED OUT
--- NOTE | 2018-11-29 14:28 | NUR ---
RN NOTE PT DAUGHTER JOSE WAS CALLED AND NOTIFIED THAT WE RECEIVED EEG PAPERWORK FROM [facility] AND NOTHING CONCERNING AN EGD. SHE INFORMED ME THAT SHE WILL FOLLOW UP WITH THEM AND WILL GIVE ME A CALL BACK.
[2018-11-29] MEDS ORDERED: POTASSIUM PHOSPHATE MM 15 MMOL in IV D5W 250 ML IV SCH (14:30)
[2018-11-29] MEDS: POTASSIUM PHOSPHATE MM 7.5 MMOL in IV D5W 100 ML IV SCH ×2 (14:49→17:13)
[2018-11-29] MEDS: IV D5/0.45 NACL 1,000 ML IV PRN (14:56)
--- NOTE | 2018-11-29 15:00 | NUR ---
RN NOTE RECIEVED A CALLBACK FROM PT DAUGHTER JOSE AND SHE STATED THAT [facility] DID HAVE THE EGD RESULTS. SHE THEN INFORMED OF THEIR FAX NUMBER OF [phone] AND A PHONE NUMBER OF [phone] AND TO ASK FOR ROMAN AT MEDICAL RECORDS. WILL TRY TO REACH AT THIS TIME
--- NOTE | 2018-11-29 15:25 | NUR ---
RT Pt received trach'd and on [facility] vent w charted settings. Vent is plugged into red outlet w [employer] at [facility]. Alarms are set and audible. Pt trach is secure and patent. Pt sx'd w no adverse reactions. No respiratory distress noted t/o shift will continue to monitor. Addendum: 11/29/18 at 1615 by JUDITH MCCLELLAN RT Amended: Links added.
--- NOTE | 2018-11-29 15:29 | NUR ---
RN NOTE FAX NUMBER WAS TRIED TWICE BUT WITH NO RESPONSE. PHONE NUMBER WAS CALLED AND ROMAN ANSWERED AND SHE SAID SHE WOULD FAX OVER THE RESULTS. WILL AWAIT PAPERWORK
--- NOTE | 2018-11-29 15:37 | NUR ---
RN NOTE FAX WAS RECEIVED REGARDING PT EGD RESULTS AT THIS TIME. WILL PLACE IN CHART AND INFORM DELLA MERRILL NP
[2018-11-29] MEDS: COLISTIMETHATE SODIUM 100 MG in IV NS 0.9% 50 ML IV SCH (17:01)
[2018-11-29] MEDS: FLUCONAZOLE IN NS 100 MG in PREMIX 1 EA IV SCH ×2 (17:57)
--- NOTE | 2018-11-29 18:07 | NUR ---
RN CLOSING NOTE PT RESTING IN BED AT LOWEST AND LOCKED POSITION WITH SIDE RAILS UP X2, OBTUNDED, BREATHING EVEN AND UNLABORED ON VENT, NO S/S OF DISTRESS AT THIS TIME, IV SITE ARE PATENT AND INTACT, TEMP WAS BETWEEN 99.6-100.7 THROUGHOUT THE SHIFT, SAFETY PRECAUTIONS IN PLACE, CALL LIGHT WITHIN REACH, WILL ENDORSE TO MANAGER SPRING RN FOR MARKELL.
--- NOTE | 2018-11-29 19:10 | NUR ---
REAL ESTATE OFFICE MANAGER NOTE PATIENT IS OBTUNDED, RESTING WITH HOB ELEVATED, ON TELE ST, NO CARDIAC OR RESPIRATORY DISTRESS NOTED, TRACH TO VENT ON SETTINGS ORDERED, COOLING MEASURES IN PLACE, GT WITH NEPHRO AT 10ML/HR, 1ML RESIDUAL, F/C DRAINING TO GRAVITY, FLEXISEAL IN PLACE DRAINING BROWN STOOL, IV PATENT FLUSHING WELL, SITE IS CLEAN AND DRY, D51/2NS INFUSING AT 45 ML/HR, SKIN KEPT CLEAN AND DRY, SAFETY MAINTAINED AT ALL TIMES, BED IN LOW LOCKED POSITION, CALL LIGHT WITHIN REACH, WILL CONTINUE TO MONITOR FOR ANY CHANGES.
--- NOTE | 2018-11-29 19:42 | NUR ---
PT RECEIVED WITH A ERICKSONLEY #8 TRACH ON MECHANICAL VENT WITH NOTED SETTINGS. VISUAL MERCHANDISING MANAGER CUFF PRESSURE NOTED. VENT PLUGGED INTO RED OUTLET. AMBU BAG AT BEDSIDE. VENT ALARMS ON AND AUDIBLE. SUCTIONED SMALL AMOUNTS OF THICK, PALE YELLOW SECRETIONS. NO SIGNS OF DISTRESS NOTED AT THIS TIME. WILL CONTINUE TO MONITOR THE PT FOR ANY CHANGES. Addendum: 11/30/18 at 0124 by BONNIE RODRIGUEZ RT Amended: Links added.
[2018-11-29] MEDS: FENOFIBRATE NANOCRYS (145 MG) 145 MG TABLET GT SCH (21:07)
--- NOTE | 2018-11-29 22:00 | NUR ---
CHURN OPERATOR NOTE FAMILY AT BEDSIDE, PT DUE FOR LANTUS, PER FAMILY REQUEST NOT ADMINISTERED DUE TO GLUCOSE 112, RISK FOR HYPOGLYCEMIA
[2018-11-30] VITALS: BP 78/61
--- NOTE | 2018-11-30 02:23 | NUR ---
SAUSAGE STRINGER NOTE COOLING MEASURES IN PLACE, PT HAS COOLING BLANKET ON, TEMP NOW 99.0, WILL CONTINUE TO MONITOR FOR ANY CHANGES IN CONDITION.
[2018-11-30 04:00] VITALS: BP 104/52
[2018-11-30] MEDS: METRONIDAZOLE 500 MG TABLET PO SCH ×3 (05:26→21:47)
[2018-11-30] MEDS: METOCLOPRAMIDE HCL 10 MG/2 ML VIAL IV SCH ×4 (05:27→23:50)
[2018-11-30] MEDS: POLYVINYL ALCOHOL 15 ML BOTTLE EACHEYE SCH ×4 (05:27→23:50)
--- NOTE | 2018-11-30 07:26 | NUR ---
PEARL GLUE OPERATOR OPENING NOTES RECIEVED BEDSIDE REPORT. PATIENT OBTUNDED NON RESPONISVE ON VENT TOLERATING VENT SETTINGS ORDERED. NO ACUTE PAIN NOTED. SINUS TACHY ON TELE MONITOR. NO FEVER NOTED 99.1 ON COOLING BLANKET. FLEXI SEAL INTACT DRAINING WATERY STOOL . PAPPAS CATH IN PLACE DRAINING MINIMAL URINE. GTF RUNNING AT 20ML/HR TOLERATING WELL AT THIS TIME NO N/V/D. IVF RUNNING IN R WRIST D5NS @45ML/HR #22 GAUGE. RCW HD CATH INTACT WILL FOLLOW UP WITH HD. SAFETY PRECAUTIONS IN PLACE BED IN LOW POSITION CALL LIGHT WITHIN REACH WILL CONT TO MONITOR
[2018-11-30 07:36] LABS: BASOPHILS # (AUTO) 0.1 /CMM (0.0-0.2); BASOPHILS % (AUTO) 0.4 % (0.0-2.0); EOSINOPHILS % (AUTO) 3.5 % (0.0-6.0); HEMATOCRIT 24 % (39-51); HEMOGLOBIN 7.8 g/dL (13.5-17.5); LYMPHOCYTES # (AUTO) 2.7 /CMM (0.8-4.8); LYMPHOCYTES % (AUTO) 11.6 % (20.0-44.0); MEAN CORPUSCULAR HGB CONC 33 g/dl (31.0-36.0); MEAN CORPUSCULAR VOLUME 95 fL (80-96); MONOCYTES # (AUTO) 1.5 /CMM (0.1-1.30); MONOCYTES % (AUTO) 6.5 % (2.0-12.0); NEUTROPHILS # (AUTO) 18.1 /CMM (1.8-8.9); PLATELET COUNT (AUTO) 443 /CMM (150-450); RED BLOOD CELL COUNT(AUTO) 2.53 MIL/uL (4.5-6.0); WHITE BLOOD COUNT (AUTO) 23.2 K/uL (4.3-11.0)
[2018-11-30 07:54] LABS: BAND % (MANUAL) 1 % (0.0-5.0); LYMPHOCYTES % (MANUAL) 14 % (16-48); NEUTROPHILS % (MANUAL) 76 (42-76)
[2018-11-30 07:55] LABS: EOSINOPHILS % (MANUAL) 5 % (0-4); METAMYELOCYTES % 1 % (0-0); MONOCYTES % (MANUAL) 3 % (0-11.0)
[2018-11-30] MEDS: BLOOD SUGAR DIAGNOSTIC 1 EACH STRIP IN SCH ×4 (07:56→21:48)
[2018-11-30 08:00] VITALS: BP 125/71
[2018-11-30 08:23] LABS: CREATININE 2.4 mg/dL (0.6-1.3); MAGNESIUM 1.8 mg/dL (1.8-2.4); PHOSPHORUS 2.4 mg/dL (2.5-4.9); POTASSIUM 3.4 mmol/L (3.5-5.1)
--- NOTE | 2018-11-30 08:30 | NUR ---
RN MS NOTES DR GOOD REMOVED HD CATH IN RCW . PRESSURE DRESSING APPLIED NO BLEEDING NOTED WILL CONT TO MONITOR
[2018-11-30] MEDS: HYDROCODONE/APAP 5/325MG 1 EACH TABLET GT SCH (08:49)
[2018-11-30] MEDS: ZINC SULFATE 220 MG CAPSULE GT SCH (08:49)
[2018-11-30] MEDS: ASCORBIC ACID 500 MG TABLET GT SCH (08:49)
[2018-11-30] MEDS: LACTOBACILLUS RHAMNOSUS GG 1 EACH CAP.SPRINK GT SCH ×2 (08:49→17:06)
[2018-11-30] MEDS: VIT B CMPLX 3/FA/VIT C/BIOTIN 1 TAB TABLET GT SCH (08:49)
[2018-11-30] MEDS: METOPROLOL TARTRATE 50 MG TABLET GT SCH ×2 (08:50→21:48)
[2018-11-30] MEDS: PANTOPRAZOLE 40 MG VIAL IV SCH ×2 (08:50→17:06)
[2018-11-30] MEDS: SUCRALFATE 1 G/10 ML UDC GT SCH ×4 (08:57→21:47)
[2018-11-30] MEDS: INSULIN GLARGINE, 100 UNIT/ML CARTRIDGE SQ SCH ×2 (08:59→21:00)
[2018-11-30] MEDS: DAKINS QUARTER STRENGTH (0.125%) 480 ML BOTTLE TOP SCH ×2 (09:00→17:06)
[2018-11-30] MEDS ORDERED: NEUTRA PHOS 1 POWD.PACKET NG ONE (11:30)
[2018-11-30 12:00] VITALS: BP 91/49
[2018-11-30] MEDS: INSULIN ASPART/LISPRO 100 UNIT/ML CARTRIDGE SQ PRN (12:13)
[2018-11-30] MEDS: ACETAMINOPHEN 325 MG TABLET PO PRN ×2 (14:04→23:50)
[2018-11-30 16:00] VITALS: BP 106/65
--- NOTE | 2018-11-30 16:54 | NUR ---
REMOTE SENSING TECHNICIAN NOTES SPOKE WITH MINOO FROM [facility] [employer] AND NO FAX OR INFORMATION HAS BEEN SENT. WILL ENDORSE TO NOC AND IN THE AM
[2018-11-30] MEDS: FLUCONAZOLE IN NS 100 MG in PREMIX 1 EA IV SCH ×2 (17:07)
[2018-11-30] MEDS: NEPRO 1,000 ML BOTTLE GT PRN (17:28)
[2018-11-30] MEDS: COLISTIMETHATE SODIUM 100 MG in IV NS 0.9% 50 ML IV SCH (18:24)
[2018-11-30] MEDS: IV D5/0.45 NACL 1,000 ML IV PRN (18:31)
--- NOTE | 2018-11-30 19:12 | NUR ---
BOOKING SUPERVISOR CLOSING NOTES BEDSIDE REPORT GIVEN TO JACKI PATIENT OBTUNDED NON RESPONSIVE ON VENT TOLERATING VENT SETTINGS ORDERED. NO ACUTE PAIN NOTED. SINUS RHYTHM ON TELE MONITOR. TYLENOL GIVEN FOR ELEVATED TEMP NO FEVER NOTED 99.1 AT THIS TIME ON COOLING BLANKET. FLEXI SEAL INTACT DRAINING WATERY STOOL . PAPPAS CATH IN PLACE DRAINING MINIMAL URINE. GTF RUNNING AT 30ML/HR TOLERATING WELL AT THIS TIME NO N/V/D. IVF RUNNING IN R WRIST D5NS @45ML/HR #22 GAUGE. RCW HD CATH REMOVED WILL FOLLOW UP IN REGARDS TO INSERTING NEW ONE. NO EPISODES OF HYPER/HYPOGLYCEMIA SAFETY PRECAUTIONS IN PLACE BED IN LOW POSITION CALL LIGHT WITHIN REACH WILL ENDORSE TO JACKI
--- NOTE | 2018-11-30 19:20 | NUR ---
SALESPERSON FASHION ACCESSORIES NOTE PATIENT IS OBTUNDED, RESTING WITH HOB ELEVATED, ON TELE SR, NO CARDIAC OR RESPIRATORY DISTRESS NOTED, TRACH TO VENT ON SETTINGS ORDERED, COOLING MEASURES IN PLACE, GT WITH NEPHRO AT 30ML/HR, 1ML RESIDUAL, F/C DRAINING TO GRAVITY, FLEXISEAL IN PLACE DRAINING BROWN STOOL, R WRIST #22G IV, LEFT WRIST #20G, PATENT FLUSHING WELL, SITE IS CLEAN AND DRY, D51/2NS INFUSING AT 45 ML/HR, SKIN KEPT CLEAN AND DRY, SAFETY MAINTAINED AT ALL TIMES, BED IN LOW LOCKED POSITION, CALL LIGHT WITHIN REACH, WILL CONTINUE TO MONITOR FOR ANY CHANGES.
--- NOTE | 2018-11-30 19:20 | NUR ---
FINISHER TAILOR APPRENTICE NOTE PATIENT CURRENTLY ON NEPHRO 30ML/HR VIA G TUBE, AND HAD 1 EPISODE OF EMESIS, RESIDUAL CHECKED 1ML, FEEDING ON HOLD CURRENTLY WILL CONTINUE AT PREVIOUS RATE OF 20ML/HR.
[2018-11-30] MEDS: ONDANSETRON HCL/PF 4 MG/2 ML VIAL IVP PRN (19:44)
[2018-11-30 20:00] VITALS: BP 126/66
[2018-11-30] MEDS: FENOFIBRATE NANOCRYS (145 MG) 145 MG TABLET GT SCH (21:47)
--- NOTE | 2018-11-30 22:00 | NUR ---
GENERATION ENGINEER NOTE PT FAMILY AT BEDSIDE GLUCOSE 106 DECLINED MEDICATION ADMINISTRATION, TUBE FEEDING RESUMED AT 20ML/HR WILL CONTINUE TO MONITOR FOR EMESIS.
[2018-12-01] VITALS: BP 122/67
--- NOTE | 2018-12-01 | NUR ---
KEG VARNISHER NOTE NOTED PATIENT HAVING ANOTHER EPISODE OF EMESIS, TUBE FEEDING PLACE ON HOLD, WILL CONTINUE TO MONITOR PT STATUS, RESIDUAL 2 ML. STOMACH IS SOFT, NON DISTENDED
[2018-12-01 04:00] VITALS: BP 102/55
[2018-12-01] MEDS: METOCLOPRAMIDE HCL 10 MG/2 ML VIAL IV SCH ×3 (05:10→18:18)
[2018-12-01] MEDS: POLYVINYL ALCOHOL 15 ML BOTTLE EACHEYE SCH ×3 (05:10→18:16)
[2018-12-01] MEDS: METRONIDAZOLE 500 MG TABLET PO SCH ×2 (05:10→12:30)
[2018-12-01 07:27] LABS: BASOPHILS # (AUTO) 0.1 /CMM (0.0-0.2); BASOPHILS % (AUTO) 0.4 % (0.0-2.0); HEMATOCRIT 22 % (39-51); HEMOGLOBIN 7.4 g/dL (13.5-17.5); LYMPHOCYTES # (AUTO) 2.8 /CMM (0.8-4.8); LYMPHOCYTES % (AUTO) 12.8 % (20.0-44.0); MEAN CORPUSCULAR HGB CONC 33 g/dl (31.0-36.0); MEAN CORPUSCULAR VOLUME 95 fL (80-96); MONOCYTES # (AUTO) 1.5 /CMM (0.1-1.30); MONOCYTES % (AUTO) 6.7 % (2.0-12.0); NEUTROPHILS # (AUTO) 16.7 /CMM (1.8-8.9); NEUTROPHILS % (AUTO) 75.1 % (43.0-81.0); PLATELET COUNT (AUTO) 480 /CMM (150-450); RED BLOOD CELL COUNT(AUTO) 2.37 MIL/uL (4.5-6.0); WHITE BLOOD COUNT (AUTO) 22.3 K/uL (4.3-11.0)
--- NOTE | 2018-12-01 07:33 | NUR ---
COMMERCIAL SALES REPRESENTATIVE OPENING NOTES RECEIVED BEDSIDE REPORT. PATIENT OBTUNDED NON RESPONSIVE ON VENT TOLERATING VENT SETTINGS ORDERED. NO ACUTE PAIN NOTED. SINUS RHYTHM ON TELE MONITOR. NO FEVER NOTED 99.1 ON COOLING BLANKET. FLEXI SEAL INTACT DRAINING WATERY STOOL . PAPPAS CATH IN PLACE DRAINING MINIMAL URINE. GTF RUNNING AT 20ML/HR TOLERATING WELL AT THIS TIME NO N/V/D. IVF RUNNING IN R WRIST D5NS @45ML/HR #22 GAUGE. SAFETY PRECAUTIONS IN PLACE BED IN LOW POSITION CALL LIGHT WITHIN REACH WILL CONT TO MONITOR
[2018-12-01 07:46] LABS: CALCIUM, SERUM 8.1 mg/dL (8.5-10.1); CREATININE 2.9 mg/dL (0.6-1.3); MAGNESIUM 1.8 mg/dL (1.8-2.4); PHOSPHORUS 2.1 mg/dL (2.5-4.9); POTASSIUM 3.3 mmol/L (3.5-5.1)
--- NOTE | 2018-12-01 07:46 | NUR ---
RT PT RECEIVED WITH A [employer] 8 TRACH ON THE VENT WITH NOTED SETTINGS. PT RESPONDS TO STIMULI WHEN SX'D. VENT ALARMS ARE SET AND AUDIBLE WITH BVM BY BEDSIDE. NATUROPATHIC ONCOLOGY PROVIDER CUFF PRESSURE NOTED . VENT IS PLUGGED INTO RED OUTLET. SX'D MODERATE THICK PALE YELLOW SECRETIONS. NO RESPIRATORY DISTRESS NOTED AT THIS TIME, WILL CONTINUE TO MONITOR. Addendum: 12/01/18 at 0938 by SAAJN BOLANOS RT Amended: Links added.
[2018-12-01 08:00] VITALS: BP 124/66
[2018-12-01] MEDS: SUCRALFATE 1 G/10 ML UDC GT SCH ×4 (08:21→21:22)
[2018-12-01] MEDS: BLOOD SUGAR DIAGNOSTIC 1 EACH STRIP IN SCH ×4 (08:21→21:45)
[2018-12-01] MEDS: VIT B CMPLX 3/FA/VIT C/BIOTIN 1 TAB TABLET GT SCH (08:22)
[2018-12-01] MEDS: ASCORBIC ACID 500 MG TABLET GT SCH (08:22)
[2018-12-01] MEDS: ZINC SULFATE 220 MG CAPSULE GT SCH (08:22)
[2018-12-01] MEDS: ACETAMINOPHEN 325 MG TABLET PO PRN ×2 (08:22→21:49)
[2018-12-01] MEDS: LACTOBACILLUS RHAMNOSUS GG 1 EACH CAP.SPRINK GT SCH ×2 (08:22→16:17)
[2018-12-01] MEDS: HYDROCODONE/APAP 5/325MG 1 EACH TABLET GT SCH (08:22)
[2018-12-01] MEDS: PANTOPRAZOLE 40 MG VIAL IV SCH ×2 (08:23→16:18)
[2018-12-01] MEDS: INSULIN GLARGINE, 100 UNIT/ML CARTRIDGE SQ SCH ×2 (08:23→21:48)
[2018-12-01] MEDS: METOPROLOL TARTRATE 50 MG TABLET GT SCH ×2 (08:24→21:21)
[2018-12-01] MEDS: DAKINS QUARTER STRENGTH (0.125%) 480 ML BOTTLE TOP SCH ×2 (08:25→16:18)
[2018-12-01 12:00] VITALS: BP 128/59
[2018-12-01] MEDS ORDERED: NEUTRA PHOS 1 POWD.PACKET NG ONE (12:00)
--- NOTE | 2018-12-01 15:04 | NUR ---
EMERGENCY COMMUNICATIONS DISPATCHER NOTES RECTAL TUBE REPLACED D/T DISLODGEMENT.
[2018-12-01 16:00] VITALS: BP 143/55
[2018-12-01] MEDS: FLUCONAZOLE IN NS 100 MG in PREMIX 1 EA IV SCH ×2 (17:08)
[2018-12-01] MEDS: NEPRO 1,000 ML BOTTLE GT PRN (17:18)
[2018-12-01] MEDS: IV D5/0.45 NACL 1,000 ML IV PRN (17:19)
[2018-12-01] MEDS: COLISTIMETHATE SODIUM 100 MG in IV NS 0.9% 50 ML IV SCH (18:16)
--- NOTE | 2018-12-01 19:05 | NUR ---
HR GENERALIST CLOSING NOTES BEDSIDE REPORT GIVEN TO JACKI PATIENT OBTUNDED NON RESPONSIVE ON VENT TOLERATING VENT SETTINGS ORDERED. NO ACUTE PAIN NOTED. SINUS RHYTHM ON TELE MONITOR. TYLENOL GIVEN FOR ELEVATED TEMP NO FEVER NOTED 98.1 AT THIS TIME FLEXI SEAL INTACT DRAINING WATERY STOOL 100 ML [address] CATH IN PL[address] DRAINING MINIMAL URINE LUC GTF RUNNING AT 20 ML/HR TOLERATING WELL AT THIS TIME NO N/V/D. IVF RUNNING IN R WRIST D5 1/2 NS @45ML/HR #22 GAUGE. RCW HD CATH REMOVED WILL FOLLOW UP IN REGARDS TO INSERTING NEW ONE. SAFETY AND ASPIRATION PRECAUTIONS IN PLACE WILL ENDORSE TO JACKI
[2018-12-01 20:00] VITALS: BP_SYST 105; BP_SYST 130; BP_DIAS 53; BP_DIAS 61
[2018-12-01] MEDS: FENOFIBRATE NANOCRYS (145 MG) 145 MG TABLET GT SCH (21:20)
[2018-12-01] MEDS: INSULIN ASPART/LISPRO 100 UNIT/ML CARTRIDGE SQ PRN (21:46)
[2018-12-02] VITALS (7 sets, daily range): BP systolic 115–158; BP diastolic 61–68
[2018-12-02] MEDS: METOCLOPRAMIDE HCL 10 MG/2 ML VIAL IV SCH ×4 (00:29→17:01)
[2018-12-02] MEDS: POLYVINYL ALCOHOL 15 ML BOTTLE EACHEYE SCH ×4 (00:30→17:12)
[2018-12-02] MEDS: IV D5/0.45 NACL 1,000 ML IV PRN (05:44)
[2018-12-02 06:34] LABS: BASOPHILS # (AUTO) 0.2 /CMM (0.0-0.2); BASOPHILS % (AUTO) 0.8 % (0.0-2.0); HEMATOCRIT 22 % (39-51); HEMOGLOBIN 7.4 g/dL (13.5-17.5); LYMPHOCYTES # (AUTO) 2.5 /CMM (0.8-4.8); LYMPHOCYTES % (AUTO) 11.9 % (20.0-44.0); MEAN CORPUSCULAR HGB CONC 33 g/dl (31.0-36.0); MEAN CORPUSCULAR VOLUME 95 fL (80-96); MONOCYTES # (AUTO) 1.6 /CMM (0.1-1.30); MONOCYTES % (AUTO) 7.5 % (2.0-12.0); NEUTROPHILS # (AUTO) 15.4 /CMM (1.8-8.9); NEUTROPHILS % (AUTO) 73.8 % (43.0-81.0); PLATELET COUNT (AUTO) 487 /CMM (150-450); RED BLOOD CELL COUNT(AUTO) 2.35 MIL/uL (4.5-6.0); WHITE BLOOD COUNT (AUTO) 20.8 K/uL (4.3-11.0)
[2018-12-02] MEDS: BLOOD SUGAR DIAGNOSTIC 1 EACH STRIP IN SCH ×4 (06:41→21:22)
[2018-12-02] MEDS: INSULIN ASPART/LISPRO 100 UNIT/ML CARTRIDGE SQ PRN ×2 (06:42→21:23)
[2018-12-02 06:51] LABS: CALCIUM, SERUM 7.9 mg/dL (8.5-10.1); CREATININE 3.5 mg/dL (0.6-1.3); MAGNESIUM 1.7 mg/dL (1.8-2.4); PHOSPHORUS 2.4 mg/dL (2.5-4.9); POTASSIUM 3.2 mmol/L (3.5-5.1)
[2018-12-02] MEDS: VIT B CMPLX 3/FA/VIT C/BIOTIN 1 TAB TABLET GT SCH (08:36)
[2018-12-02] MEDS: ZINC SULFATE 220 MG CAPSULE GT SCH (08:36)
[2018-12-02] MEDS: HYDROCODONE/APAP 5/325MG 1 EACH TABLET GT SCH (08:38)
[2018-12-02] MEDS: ACETAMINOPHEN 325 MG TABLET PO PRN ×2 (08:38→21:21)
[2018-12-02] MEDS: METOPROLOL TARTRATE 50 MG TABLET GT SCH ×2 (08:38→21:20)
[2018-12-02] MEDS: LACTOBACILLUS RHAMNOSUS GG 1 EACH CAP.SPRINK GT SCH ×2 (08:39→16:32)
[2018-12-02] MEDS: SUCRALFATE 1 G/10 ML UDC GT SCH ×4 (08:39→21:19)
[2018-12-02] MEDS: PANTOPRAZOLE 40 MG VIAL IV SCH ×2 (08:39→16:32)
[2018-12-02] MEDS: ASCORBIC ACID 500 MG TABLET GT SCH (08:39)
[2018-12-02] MEDS: INSULIN GLARGINE, 100 UNIT/ML CARTRIDGE SQ SCH ×2 (08:42→21:18)
[2018-12-02] MEDS: DAKINS QUARTER STRENGTH (0.125%) 480 ML BOTTLE TOP SCH ×2 (08:48→16:33)
--- NOTE | 2018-12-02 15:30 | NUR ---
BINDER LOCKSTITCH NOTES SPOKE WITH DR CASILLAS IN REGARDS TO PATIENT CONDITION PATIENT WBC TRENDING DOWN BUT NOW FLUID OVERLOAD WITHOUT HD. WAITING FOR CLEARANCE FROM ID FOR PLACEMENT OF HD CATH.
[2018-12-02] MEDS: FLUCONAZOLE IN NS 100 MG in PREMIX 1 EA IV SCH ×2 (17:04)
[2018-12-02] MEDS: NEPRO 1,000 ML BOTTLE GT PRN (17:55)
[2018-12-02] MEDS: COLISTIMETHATE SODIUM 100 MG in IV NS 0.9% 50 ML IV SCH (18:42)
--- NOTE | 2018-12-02 18:58 | NUR ---
OIL WELL CABLE TOOL OPERATOR NOTES SPOKE WITH DELLA AND LEFT MESSAGE WITH ALEJANDRINA FOR ID CLEARANCE.
--- NOTE | 2018-12-02 19:21 | NUR ---
CUTTER GRIND TOOL TECHNICIAN CLOSING NOTES BEDSIDE REPORT GIVEN TO JACKI PATIENT OBTUNDED NON RESPONSIVE ON VENT TOLERATING VENT SETTINGS ORDERED. NO ACUTE PAIN NOTED. SINUS RHYTHM ON TELE MONITOR. TYLENOL GIVEN FOR ELEVATED TEMP NO FEVER NOTED 99.1 AT THIS TIME FLEXI SEAL INTACT DRAINING WATERY STOOL 80 ML PAPP[address] CATH IN PLACE DRAINING MINIMAL URINE LUC GTF RUNNING AT 30 ML/HR TOLERATING WELL AT THIS TIME NO N/V/D. IVF RUNNING IN R WRIST D5 1/2 NS @45ML/HR #22 GAUGE.L HAND SL #22 GAUGE RCW HD CATH REMOVED WILL FOLLOW UP IN REGARDS TO INSERTING NEW ONE. SAFETY AND ASPIRATION PRECAUTIONS IN PLACE WILL ENDORSE TO JACKI
[2018-12-02] MEDS: FENOFIBRATE NANOCRYS (145 MG) 145 MG TABLET GT SCH (21:21)
[2018-12-03] VITALS: BP 122/61
[2018-12-03] MEDS: METOCLOPRAMIDE HCL 10 MG/2 ML VIAL IV SCH ×4 (00:45→17:24)
[2018-12-03] MEDS: POLYVINYL ALCOHOL 15 ML BOTTLE EACHEYE SCH ×4 (00:50→17:13)
--- NOTE | 2018-12-03 01:10 | NUR ---
RT Pt trach on [facility] vent sittings. Pt appears comfortable on settings. No resp distress noted. trach secure and patent. Addendum: 12/03/18 at 0111 by LAYLA GRAJEDA RT Amended: Links added.
[2018-12-03 04:00] VITALS: BP 127/69
[2018-12-03] MEDS: IV D5/0.45 NACL 1,000 ML IV PRN (05:38)
--- NOTE | 2018-12-03 07:00 | NUR ---
RN NOTES RECEIVED PT ON BED, OBTUNDED , VENT/ TRACH DEPENDENT , TRACH CARE DONE, ON TELE SR ,HR IN 80'S PAPPAS DRAINING TO GRAVITY, FLEXI SEAL INTACT DRAINING LOOSE STOOL . GTF RUNNING AT 30ML/HR TOLERATING WELL AT THIS TIME NO RESIDUAL NOTED AT THIS TIME, D5NS @45ML/HR VIA R WIRST IV G 22, SITE CLEAN, DRY AND INTACT, SAFETY PRECAUTIONS IN PLACE, SR UP x3, CALL LIGHT WITHIN EASY REACH, BED LOCKED AND IN LOWEST POSITION , CONT TO MONITOR.
[2018-12-03 07:57] LABS: BASOPHILS # (AUTO) 0.1 /CMM (0.0-0.2); BASOPHILS % (AUTO) 0.6 % (0.0-2.0); EOSINOPHILS % (AUTO) 5.5 % (0.0-6.0); HEMATOCRIT 24 % (39-51); HEMOGLOBIN 7.7 g/dL (13.5-17.5); LYMPHOCYTES # (AUTO) 3.3 /CMM (0.8-4.8); LYMPHOCYTES % (AUTO) 13.1 % (20.0-44.0); MEAN CORPUSCULAR HGB CONC 32 g/dl (31.0-36.0); MEAN CORPUSCULAR VOLUME 98 fL (80-96); MONOCYTES # (AUTO) 1.5 /CMM (0.1-1.30); NEUTROPHILS % (AUTO) 74.8 % (43.0-81.0); PLATELET COUNT (AUTO) 530 /CMM (150-450); RED BLOOD CELL COUNT(AUTO) 2.46 MIL/uL (4.5-6.0); WHITE BLOOD COUNT (AUTO) 25.3 K/uL (4.3-11.0)
[2018-12-03 08:00] VITALS: BP 136/63
[2018-12-03] MEDS: ZINC SULFATE 220 MG CAPSULE GT SCH (08:10)
[2018-12-03] MEDS: VIT B CMPLX 3/FA/VIT C/BIOTIN 1 TAB TABLET GT SCH (08:11)
[2018-12-03] MEDS: METOPROLOL TARTRATE 50 MG TABLET GT SCH ×2 (08:11→21:59)
[2018-12-03] MEDS: LACTOBACILLUS RHAMNOSUS GG 1 EACH CAP.SPRINK GT SCH ×2 (08:11→16:25)
[2018-12-03] MEDS: SUCRALFATE 1 G/10 ML UDC GT SCH ×4 (08:11→21:58)
[2018-12-03] MEDS: ASCORBIC ACID 500 MG TABLET GT SCH (08:12)
[2018-12-03] MEDS: HYDROCODONE/APAP 5/325MG 1 EACH TABLET GT SCH (08:12)
[2018-12-03] MEDS: BLOOD SUGAR DIAGNOSTIC 1 EACH STRIP IN SCH ×4 (08:12→21:59)
[2018-12-03] MEDS: DAKINS QUARTER STRENGTH (0.125%) 480 ML BOTTLE TOP SCH ×2 (08:13→16:27)
[2018-12-03 08:40] LABS: CREATININE 3.8 mg/dL (0.6-1.3); MAGNESIUM 1.9 mg/dL (1.8-2.4); PHOSPHORUS 2.8 mg/dL (2.5-4.9); POTASSIUM 3.9 mmol/L (3.5-5.1)
[2018-12-03 08:41] LABS: BAND % (MANUAL) 8 % (0.0-5.0); EOSINOPHILS % (MANUAL) 3 % (0-4); LYMPHOCYTES % (MANUAL) 17 % (16-48); METAMYELOCYTES % 2 % (0-0); MONOCYTES % (MANUAL) 5 % (0-11.0); MYELOCYTES % 4 % (0-0); NEUTROPHILS % (MANUAL) 59 (42-76); PROMYELOCYTES % 2 % (0-0)
--- NOTE | 2018-12-03 09:00 | NUR ---
RN NOTES BG=[id number] , DR CASILLAS NOTIFED, MORNING LANTUS HELD AT THIS TIME . CONTINUE TO MONITOR.
--- NOTE | 2018-12-03 10:11 | NUR ---
RT NOTE RECEIVED PT MECHANICALLY VENTILATED VIA SHILEY 8 CUFFED TRACHEOSTOMY TUBE. CUFF INFLATED. TRACH TUBE MIDLINE AND SECURE. VENTILATOR SETTINGS PRESCRIBED. ALARMS SET PER PROTOCOL AND AUDIBLE. VENT PLUGGED IN TO RED OUTLET. AMBU BAG AT BED SIDE. NO DISTRESS NOTED AT MOMENT. Addendum: 12/03/18 at 1012 by HILLARY SANTACRUZ RT Amended: Links added.
[2018-12-03] MEDS: PANTOPRAZOLE 40 MG/PACK PACK GT SCH (10:31)
[2018-12-03 12:00] VITALS: BP 139/60
[2018-12-03 16:00] VITALS: BP 145/66
[2018-12-03] MEDS: FLUCONAZOLE IN NS 100 MG in PREMIX 1 EA IV SCH ×2 (17:10)
[2018-12-03] MEDS: ONDANSETRON HCL/PF 4 MG/2 ML VIAL IVP PRN (17:39)
--- NOTE | 2018-12-03 18:00 | NUR ---
GARRY NOTES PT VOMITTED ABOUT 20CC GASTRIC CONTENTS , ZOFRAN IV GIVEN , CONTINUE TO MONITOR. Addendum: 12/03/18 at 1822 by SIRIA RIZVI RN JAROCHO MONSALVE
--- NOTE | 2018-12-03 18:20 | NUR ---
RN NOTES TF ON HOLD AT THIS TIME, VSS STABLE, WILL ENDOSE TO DIRECTOR PLANS FOR CONTINUITY OF CARE .
[2018-12-03] MEDS: COLISTIMETHATE SODIUM 100 MG in IV NS 0.9% 50 ML IV SCH (18:22)
--- NOTE | 2018-12-03 19:38 | NUR ---
RT NOTE PATIENT RECEIVED TRACHED ON MECHANICAL VENTILATION. CUFF CHECKED VIA SALE PROFESSIONAL DIGITAL MARKETING. AMBU BAG @ BEDSIDE. SX DONE, SMALL THICK WHITE YELLOW SECRETIONS NOTED. ALARMS ON AND AUDIBLE. VENT PLUGGED INTO RED OUTLET. NO DISTRESS NOTED. CONTINUOUS PULSE OX CONNECTED. PATIENT STABLE. Addendum: 12/03/18 at 1939 by MARCIA YOUNG RT Amended: Links added.
[2018-12-03 20:00] VITALS: BP 164/77
[2018-12-03] MEDS: FENOFIBRATE NANOCRYS (145 MG) 145 MG TABLET GT SCH (21:58)
[2018-12-03] MEDS: INSULIN GLARGINE, 100 UNIT/ML CARTRIDGE SQ SCH (22:00)
[2018-12-04] VITALS: BP 153/41
[2018-12-04] MEDS: POLYVINYL ALCOHOL 15 ML BOTTLE EACHEYE SCH ×4 (00:42→17:01)
[2018-12-04] MEDS: METOCLOPRAMIDE HCL 10 MG/2 ML VIAL IV SCH ×4 (00:43→17:00)
[2018-12-04 04:00] VITALS: BP 153/56
[2018-12-04] MEDS: NEPRO 1,000 ML BOTTLE GT PRN (05:59)
[2018-12-04] MEDS: ERGOCALCIFEROL (VITAMIN D 2) 50,000 UNIT CAPSULE GT SCH (06:01)
[2018-12-04] MEDS: BLOOD SUGAR DIAGNOSTIC 1 EACH STRIP IN SCH ×3 (06:12→17:00)
--- NOTE | 2018-12-04 07:05 | NUR ---
RN NOTES RECEIVED PT ON BED, OBTUNDED , VENT/ TRACH DEPENDENT , TRACH CARE DONE, ON TELE SR ,HR IN 80'S PAPPAS DRAINING TO GRAVITY, FLEXI SEAL INTACT DRAINING LOOSE STOOL . GTF RUNNING AT 35ML/HR TOLERATING WELL AT THIS TIME NO RESIDUAL NOTED AT THIS TIME, R WIRST AND L HAND IV SITES CLEAN, DRY AND INTACT, SAFETY PRECAUTIONS IN PLACE, SR UP x3, CALL LIGHT WITHIN EASY REACH, BED LOCKED AND IN LOWEST POSITION , CONTINU TO MONITOR.
[2018-12-04 07:10] LABS: BASOPHILS # (AUTO) 0.1 /CMM (0.0-0.2); BASOPHILS % (AUTO) 0.4 % (0.0-2.0); EOSINOPHILS % (AUTO) 4.8 % (0.0-6.0); HEMATOCRIT 22 % (39-51); HEMOGLOBIN 7.3 g/dL (13.5-17.5); LYMPHOCYTES # (AUTO) 2.3 /CMM (0.8-4.8); LYMPHOCYTES % (AUTO) 9.9 % (20.0-44.0); MEAN CORPUSCULAR HGB CONC 33 g/dl (31.0-36.0); MEAN CORPUSCULAR VOLUME 97 fL (80-96); MONOCYTES # (AUTO) 0.9 /CMM (0.1-1.30); NEUTROPHILS # (AUTO) 18.9 /CMM (1.8-8.9); NEUTROPHILS % (AUTO) 80.9 % (43.0-81.0); PLATELET COUNT (AUTO) 512 /CMM (150-450); RED BLOOD CELL COUNT(AUTO) 2.31 MIL/uL (4.5-6.0); WHITE BLOOD COUNT (AUTO) 23.3 K/uL (4.3-11.0)
[2018-12-04 07:12] LABS: CREATININE 4.1 mg/dL (0.6-1.3); MAGNESIUM 1.9 mg/dL (1.8-2.4); PHOSPHORUS 3.7 mg/dL (2.5-4.9); POTASSIUM 3.9 mmol/L (3.5-5.1)
--- NOTE | 2018-12-04 07:18 | NUR ---
RN CLOSING NOTE Received patient with trach on vent, F/C and Flexiseal in place. Received patient with breathing noted to be deep, with use of accessory muscles. saturating at 100%, airway kept clear and patent, suctioned as needed. Received with GT clamped, per AM nurse, patient vomited and placed feeding on hold. Started GTF gradually for the patient, patient able to tolerate GTF, no vomiting/ no gastric residual noted. GTF now infusing at 35cc/hr. wound care rendered as ordered. turned and repositioned [id number]. kept clean and dry. Endorsed accordingly.
[2018-12-04 08:00] VITALS: BP 167/75
[2018-12-04] MEDS: LACTOBACILLUS RHAMNOSUS GG 1 EACH CAP.SPRINK GT SCH ×2 (08:15→16:18)
[2018-12-04] MEDS: ZINC SULFATE 220 MG CAPSULE GT SCH (08:15)
[2018-12-04] MEDS: PANTOPRAZOLE 40 MG/PACK PACK GT SCH (08:15)
[2018-12-04] MEDS: SUCRALFATE 1 G/10 ML UDC GT SCH ×4 (08:15→21:35)
[2018-12-04] MEDS: VIT B CMPLX 3/FA/VIT C/BIOTIN 1 TAB TABLET GT SCH (08:16)
[2018-12-04] MEDS: HYDROCODONE/APAP 5/325MG 1 EACH TABLET GT SCH (08:17)
[2018-12-04] MEDS: METOPROLOL TARTRATE 50 MG TABLET GT SCH ×2 (08:19→21:35)
[2018-12-04] MEDS: ASCORBIC ACID 500 MG TABLET GT SCH (08:19)
[2018-12-04] MEDS: INSULIN GLARGINE, 100 UNIT/ML CARTRIDGE SQ SCH ×2 (08:23→22:09)
[2018-12-04] MEDS: ACETAMINOPHEN 325 MG TABLET PO PRN (08:30)
[2018-12-04 10:05] LABS: BAND % (MANUAL) 2 % (0.0-5.0); EOSINOPHILS % (MANUAL) 4 % (0-4); LYMPHOCYTES % (MANUAL) 5 % (16-48); MONOCYTES % (MANUAL) 3 % (0-11.0); MYELOCYTES % 2 % (0-0); NEUTROPHILS % (MANUAL) 84 (42-76)
[2018-12-04] MEDS: DAKINS QUARTER STRENGTH (0.125%) 480 ML BOTTLE TOP SCH ×2 (10:16→16:19)
[2018-12-04 12:00] VITALS: BP 132/50
--- NOTE | 2018-12-04 12:00 | NUR ---
RN NOTES TRACH SUCTIONING DONE , NO TF RESIDUAL NOTED, CONTINUE TO MONITOR .
[2018-12-04 16:00] VITALS: BP 130/68
[2018-12-04] MEDS: FLUCONAZOLE IN NS 100 MG in PREMIX 1 EA IV SCH ×2 (17:00)
[2018-12-04] MEDS: COLISTIMETHATE SODIUM 100 MG in IV NS 0.9% 50 ML IV SCH (17:59)
--- NOTE | 2018-12-04 18:18 | NUR ---
RN NOTES TF AT 30CC/HR RUNNING VIA GT , TOLERATING WELL, PAPPAS DRAINING TO GRAVITY , NO SIGNIFICANT CHANGES NOTED ON THIS SHIFT , WILL ENDORSE TO SENIOR NET DEVELOPER ARCHITECT NURSE FOR CONTINUITY OF CARE.
--- NOTE | 2018-12-04 19:30 | NUR ---
RECEIVED PATIENT IN BED WITH EYES CLOSED; EASILY AROUSABLE. OBTUNDED; RESPONSIVE TO TOUCH AND LIGHT PAIN. NO ACUTE DISTRESS NOTED. NO SIGNS OF PAIN NOTED. TELE READING SR HR 83. TRACH INTACT; VENT SETTINGS ORDERED. IV SITES PATENT, INTACT; FLUSHED. GT SITE PATENT, INTACT; AUSCULTATED FOR POSITIONING. GTF ONGOING ORDERED; NO RESIDUAL ASPIRATED. HOB RAISED. PATIENT TOLERATING GTF. PAPPAS CATH PATENT, INTACT; DRAINING CLEAR YELLOW URINE. FLEXISEAL IN PLACE; DRAINING LIQUID BROWN STOOL. COOLING BLANKET APPLIED. RECTAL THERMOMETER IN PLACE. CONTACT AND DROPLET ISOLATION MAINTAINED. ON LOW BED WITH BILATERAL UPPER SIDE RAILS UP. CALL GALICIA WITHIN EASY REACH. WILL CONTINUE TO MONITOR.
[2018-12-04 20:00] VITALS: BP 150/60
[2018-12-04] MEDS: FENOFIBRATE NANOCRYS (145 MG) 145 MG TABLET GT SCH (21:36)
[2018-12-05] VITALS (7 sets, daily range): BP systolic 116–140; BP diastolic 61–80
[2018-12-05] MEDS: METOCLOPRAMIDE HCL 10 MG/2 ML VIAL IV SCH ×5 (00:26→23:49)
[2018-12-05] MEDS: POLYVINYL ALCOHOL 15 ML BOTTLE EACHEYE SCH ×5 (00:27→23:49)
[2018-12-05] MEDS: BLOOD SUGAR DIAGNOSTIC 1 EACH STRIP IN SCH ×5 (00:29→23:49)
--- NOTE | 2018-12-05 06:30 | NUR ---
PATIENT ASLEEP, EASILY AROUSABLE. RESPIRATIONS EVEN. NO SIGNS OF PAIN NOTED. DUE MEDS GIVEN WITH NO ASE NOTED. NEEDS ATTENDED. KEPT CLEAN, DRY, AND COMFORTABLE. TURNED AND REPOSITIONED Q 2 HOURS. SAFETY PRECAUTIONS AND COMFORT MEASURES IN PLACE. WILL GIVE REPORT TO DAY SHIFT FOR CONTINUITY OF CARE.
--- NOTE | 2018-12-05 07:40 | NUR ---
ROLLING MILL PLUGGER OPENING NOTES RECEIVED PT FROM COMBAT SYSTEMS OPERATOR MINE WARFARE RN IN BED, OBTUNDED , VENT/ TRACH DEPENDENT , TOLERATING VENT SETTINGS PRESCRIBED, ON TELE SR 80 ,PAPPAS DRAINING TO GRAVITY, FLEXI SEAL INTACT DRAINING LOOSE STOOL . GTF RUNNING AT 30ML/HR TOLERATING WELL AT THIS TIME NO RESIDUAL NOTED AT THIS TIME, R WIRST AND L HAND IV SITES INTACT AND PATENT, SAFETY PRECAUTIONS IN PLACE, CALL LIGHT WITHIN EASY REACH, BED LOCKED AND IN LOWEST POSITION , WILL CONTINUE TO MONITOR.
[2018-12-05 09:03] LABS: BASOPHILS # (AUTO) 0.1 /CMM (0.0-0.2); BASOPHILS % (AUTO) 0.5 % (0.0-2.0); EOSINOPHILS % (AUTO) 4.7 % (0.0-6.0); HEMATOCRIT 22 % (39-51); HEMOGLOBIN 7.1 g/dL (13.5-17.5); LYMPHOCYTES # (AUTO) 2.5 /CMM (0.8-4.8); LYMPHOCYTES % (AUTO) 11.8 % (20.0-44.0); MEAN CORPUSCULAR HGB CONC 32 g/dl (31.0-36.0); MEAN CORPUSCULAR VOLUME 98 fL (80-96); MONOCYTES % (AUTO) 4.6 % (2.0-12.0); NEUTROPHILS # (AUTO) 16.5 /CMM (1.8-8.9); NEUTROPHILS % (AUTO) 78.4 % (43.0-81.0); PLATELET COUNT (AUTO) 519 /CMM (150-450); RED BLOOD CELL COUNT(AUTO) 2.27 MIL/uL (4.5-6.0)
[2018-12-05 09:16] LABS: ALBUMIN 1.5 g/dL (3.4-5.0); BILIRUBIN,TOTAL 0.6 mg/dL (0.2-1.0); CALCIUM, SERUM 8.3 mg/dL (8.5-10.1); CREATININE 4.5 mg/dL (0.6-1.3); PHOSPHORUS 3.9 mg/dL (2.5-4.9); POTASSIUM 3.7 mmol/L (3.5-5.1); TOTAL PROTEIN, SERUM 6.4 g/dL (6.4-8.2)
[2018-12-05] MEDS: VIT B CMPLX 3/FA/VIT C/BIOTIN 1 TAB TABLET GT SCH (09:29)
[2018-12-05] MEDS: HYDROCODONE/APAP 5/325MG 1 EACH TABLET GT SCH (09:30)
[2018-12-05] MEDS: METOPROLOL TARTRATE 50 MG TABLET GT SCH ×2 (09:30→21:14)
[2018-12-05] MEDS: PANTOPRAZOLE 40 MG/PACK PACK GT SCH (09:31)
[2018-12-05] MEDS: LACTOBACILLUS RHAMNOSUS GG 1 EACH CAP.SPRINK GT SCH ×2 (09:31→17:09)
[2018-12-05] MEDS: ASCORBIC ACID 500 MG TABLET GT SCH (09:31)
[2018-12-05] MEDS: ZINC SULFATE 220 MG CAPSULE GT SCH (09:31)
[2018-12-05] MEDS: DAKINS QUARTER STRENGTH (0.125%) 480 ML BOTTLE TOP SCH ×2 (10:01→17:10)
[2018-12-05] MEDS: INSULIN GLARGINE, 100 UNIT/ML CARTRIDGE SQ SCH ×2 (10:03→21:20)
[2018-12-05] MEDS: SUCRALFATE 1 G/10 ML UDC GT SCH ×4 (10:07→21:12)
[2018-12-05 10:10] LABS: BAND % (MANUAL) 3 % (0.0-5.0); EOSINOPHILS % (MANUAL) 5 % (0-4); LYMPHOCYTES % (MANUAL) 10 % (16-48); METAMYELOCYTES % 1 % (0-0); MONOCYTES % (MANUAL) 7 % (0-11.0); MYELOCYTES % 2 % (0-0); NEUTROPHILS % (MANUAL) 72 (42-76)
--- NOTE | 2018-12-05 14:49 | NUR ---
DIRECTOR OF CLINICAL APPLICATIONS NOTE PATIENT TEMPERATURE < 96.0 F. RECTAL THERMOMETER PLACEMENT CONFIRMED CORRECT. COOLING BLANKET REMOVED. WILL CONTINUE TO MONITOR. V/S WNL, SAT 99%.
--- NOTE | 2018-12-05 14:50 | NUR ---
PSYCHOLOGY LECTURER NOTE MD MCDOWELL. STATED THAT WE ARE WAITING ON NEPHROLOGY CONSULT TO DETERMINE NEXT ORDER/PLAN.
[2018-12-05] MEDS: NEPRO 1,000 ML BOTTLE GT PRN (17:06)
[2018-12-05] MEDS: FLUCONAZOLE IN NS 100 MG in PREMIX 1 EA IV SCH ×2 (18:24)
[2018-12-05] MEDS: COLISTIMETHATE SODIUM 100 MG in IV NS 0.9% 50 ML IV SCH (18:24)
[2018-12-05] MEDS: INSULIN ASPART/LISPRO 100 UNIT/ML CARTRIDGE SQ PRN (18:47)
--- NOTE | 2018-12-05 19:10 | NUR ---
GARMENT WORKER NOTE PATIENT IS OBTUNDED, RESTING WITH HOB ELEVATED, ON TELE SR, NO CARDIAC OR RESPIRATORY DISTRESS NOTED, TRACH TO VENT ON SETTINGS ORDERED, GT WITH NEPHRO AT 30ML/HR, 1ML RESIDUAL, F/C DRAINING TO GRAVITY, FLEXISEAL IN PLACE DRAINING BROWN STOOL, LEFT WRIST #20, R WRIST #22G IV PATENT FLUSHING WELL, SITE IS CLEAN AND DRY, SKIN KEPT CLEAN AND DRY, SAFETY MAINTAINED AT ALL TIMES, BED IN LOW LOCKED POSITION, CALL LIGHT WITHIN REACH, WILL CONTINUE TO MONITOR FOR ANY CHANGES.
--- NOTE | 2018-12-05 19:34 | NUR ---
HYDROMETALLURGICAL ENGINEER CLOSING NOTES PATIENT IN BED, OBTUNDED , VENT/ TRACH DEPENDENT , TOLERATING VENT SETTINGS PRESCRIBED, ON TELE SR 88 ,PAPPAS DRAINING TO GRAVITY, FLEXI SEAL INTACT DRAINING LOOSE STOOL . GTF RUNNING AT 30ML/HR TOLERATING WELL AT THIS TIME. TRACE RESIDUAL NOTED DURING DAY SHIFT. L HAND IV SITES INTACT AND PATENT, NO CHANGES IN CONDITION DURING SHIFT. . CALL LIGHT WITHIN EASY REACH, BED LOCKED AND IN LOWEST POSITION. PATIENT CARE ENDORSED TO GARMENT SEWING MACHINE OPERATOR RN
[2018-12-05] MEDS: FENOFIBRATE NANOCRYS (145 MG) 145 MG TABLET GT SCH (21:14)
[2018-12-06] VITALS: BP 122/64
[2018-12-06 04:00] VITALS: BP 122/70
[2018-12-06] MEDS: METOCLOPRAMIDE HCL 10 MG/2 ML VIAL IV SCH ×4 (05:18→23:27)
[2018-12-06] MEDS: BLOOD SUGAR DIAGNOSTIC 1 EACH STRIP IN SCH ×4 (05:18→23:27)
[2018-12-06] MEDS: POLYVINYL ALCOHOL 15 ML BOTTLE EACHEYE SCH ×4 (05:20→23:32)
--- NOTE | 2018-12-06 05:52 | NUR ---
PATIENT RECEIVED ON AC 18, 500 VT, 40%, +5. SUCTIONED WITH LAVAGE FOR MINIMAL, THIN, YELLOW SECRETIONS. AMBU BAG AT BEDSIDE. VENT AND PULSE OXIMETER ALARMS AUDIBLE AND VISIBLE. VENT PLUGGED INTO RED OUTLET. Addendum: 12/06/18 at 0553 by KIA BRIGGS RT Amended: Links added.
--- NOTE | 2018-12-06 07:20 | NUR ---
RN OPENING NOTE RECEIVED PATIENT OBTUNDED, ON VENT. VENT SETTINGS ON FLOWSHEET. HAS A FLEXISEAL AND PAPPAS WITH CLEAR AND YELLOW URINE. PER NOC SHIFT RN, PATIENT'S HD CATH HAS BEEN REMOVED A WEEK AGO. ON GT FEEDING WITH NEPRO AT 30ML/HR, NO RESIDUAL. NO SIGNS OF ANY BREATHING DISTRESS, 100% ON MONITOR FOR SPO2. BED LOCKED AND ON LOW POSITION. WILL CONTINUE TO MONITOR.
[2018-12-06 07:38] LABS: BASOPHILS # (AUTO) 0.2 /CMM (0.0-0.2); EOSINOPHILS % (AUTO) 4.4 % (0.0-6.0); HEMATOCRIT 23 % (39-51); HEMOGLOBIN 7.4 g/dL (13.5-17.5); LYMPHOCYTES # (AUTO) 2.5 /CMM (0.8-4.8); LYMPHOCYTES % (AUTO) 12.7 % (20.0-44.0); MEAN CORPUSCULAR HGB CONC 32 g/dl (31.0-36.0); MEAN CORPUSCULAR VOLUME 99 fL (80-96); MONOCYTES % (AUTO) 5.2 % (2.0-12.0); NEUTROPHILS # (AUTO) 15.2 /CMM (1.8-8.9); NEUTROPHILS % (AUTO) 76.7 % (43.0-81.0); PLATELET COUNT (AUTO) 449 /CMM (150-450); RED BLOOD CELL COUNT(AUTO) 2.31 MIL/uL (4.5-6.0); WHITE BLOOD COUNT (AUTO) 19.9 K/uL (4.3-11.0)
[2018-12-06 07:53] LABS: CALCIUM, SERUM 8.5 mg/dL (8.5-10.1); CREATININE 4.7 mg/dL (0.6-1.3); POTASSIUM 3.9 mmol/L (3.5-5.1)
[2018-12-06] MEDS: SUCRALFATE 1 G/10 ML UDC GT SCH ×4 (07:55→21:02)
[2018-12-06 08:00] VITALS: BP 118/71
[2018-12-06] MEDS: LACTOBACILLUS RHAMNOSUS GG 1 EACH CAP.SPRINK GT SCH ×2 (08:21→16:14)
[2018-12-06] MEDS: PANTOPRAZOLE 40 MG/PACK PACK GT SCH (08:21)
[2018-12-06] MEDS: VIT B CMPLX 3/FA/VIT C/BIOTIN 1 TAB TABLET GT SCH (08:22)
[2018-12-06] MEDS: ASCORBIC ACID 500 MG TABLET GT SCH (08:22)
[2018-12-06] MEDS: ZINC SULFATE 220 MG CAPSULE GT SCH (08:22)
[2018-12-06] MEDS: HYDROCODONE/APAP 5/325MG 1 EACH TABLET GT SCH (08:22)
[2018-12-06] MEDS: METOPROLOL TARTRATE 50 MG TABLET GT SCH ×2 (08:22→21:03)
[2018-12-06] MEDS: INSULIN GLARGINE, 100 UNIT/ML CARTRIDGE SQ SCH ×2 (08:28→21:18)
--- NOTE | 2018-12-06 08:43 | NUR ---
RT NOTE RECEIVED PT MECHANICALLY VENTILATED VIA SHILEY 8 CUFFED TRACHEOSTOMY TUBE. CUFF INFLATED. TRACH TUBE MIDLINE AND SECURE. ALARMS SET PER PROTOCOL AND AUDIBLE. VENT PLUGGED IN TO RED OUTLET. AMBU BAG AT BED SIDE. NO DISTRESS NOTED AT MOMENT. Addendum: 12/06/18 at 0845 by HILLARY SANTACRUZ RT Amended: Links added.
[2018-12-06 09:14] LABS: BAND % (MANUAL) 3 % (0.0-5.0); LYMPHOCYTES % (MANUAL) 12 % (16-48); NEUTROPHILS % (MANUAL) 76 (42-76)
[2018-12-06 09:15] LABS: EOSINOPHILS % (MANUAL) 3 % (0-4); METAMYELOCYTES % 1 % (0-0); MONOCYTES % (MANUAL) 5 % (0-11.0)
[2018-12-06] MEDS: DAKINS QUARTER STRENGTH (0.125%) 480 ML BOTTLE TOP SCH ×2 (09:44→16:14)
[2018-12-06 12:00] VITALS: BP 115/55
--- NOTE | 2018-12-06 12:05 | NUR ---
RN NOTE PATIENT'S BODY TEMP WAS 95.0F, PATIENT HAS A RECTAL TEMP MONITORING MACHINE AND STATES 94.7F. DR CABRAL AWARE, WANTED ME TO CALL DR MCCLENDON FOR NEPHRO QUESTION AND ASK IF NEPHRO DOCTOR WANTS TO ORDER SOME FLUIDS REGARDING TEMPERATURE
--- NOTE | 2018-12-06 12:32 | NUR ---
RN NOTE TALKED TO DR SIMON, HE ORDERED UA AND BLOOD CX STAT. HE IS AWARE OF THE PATIENT'S BODY TEMP DROPPING TO 94F - 95F SINCE THE MORNING
[2018-12-06 16:00] VITALS: BP_SYST 113; BP_DIAS 62; BP_DIAS 66
[2018-12-06] MEDS ORDERED: HEPARIN SODIUM, PORCINE 1000 UNIT/1 ML VIAL IV ONE (16:00)
[2018-12-06] MEDS ORDERED: LIDOCAINE 1%-EPI 1:100,000 20 ML VIAL TP ONE (16:00)
[2018-12-06] MEDS: NEPRO 1,000 ML BOTTLE GT PRN (17:10)
[2018-12-06] MEDS: FLUCONAZOLE IN NS 100 MG in PREMIX 1 EA IV SCH ×2 (18:15)
[2018-12-06] MEDS: COLISTIMETHATE SODIUM 100 MG in IV NS 0.9% 50 ML IV SCH (18:15)
--- NOTE | 2018-12-06 19:00 | NUR ---
AIRPLANE ELECTRICAL REPAIRER NOTE PATIENT RESTING WITH HOB ELEVATED, OBTUNDED, ON TELE SR, NO CARDIAC OR RESPIRATORY DISTRESS NOTED, TRACH TO VENT ON SETTINGS ORDERED, GT WITH NEPHRO AT 30ML/HR, 0ML RESIDUAL, F/C DRAINING TO GRAVITY LUC URINE, FLEXISEAL IN PLACE DRAINING BROWN STOOL, LEFT WRIST #20, IV PATENT FLUSHING WELL, SITE IS CLEAN AND DRY, SKIN KEPT CLEAN AND DRY, SAFETY MAINTAINED AT ALL TIMES, BED IN LOW LOCKED POSITION, CALL LIGHT WITHIN REACH, WILL CONTINUE TO MONITOR FOR ANY CHANGES.
--- NOTE | 2018-12-06 19:20 | NUR ---
RN NO Addendum: 12/06/18 at 1924 by RASHEED VALDIVIA RN RN CLOSING NOTE PATIENT IN BED, OBTUNDED. ALL MEDS ARE GIVEN, NO SIGNS OF ANY DISTRESS OR ANY PAIN. DR GOOD WAS HERE AND WE DID NOT GET THE CONSENT FROM THE DAUGHTER ON TIME. DR GOOD WILL DO HD CATH PLACEMENT TOMORROW. CONSENT ALREADY SIGNED, DAUGHTER CALLED BACK. PATIENT'S TEMPERATURE WAS ALSO ENDORSED TO NOC SHIFT.
[2018-12-06 20:00] VITALS: BP 114/58
[2018-12-06] MEDS: METRONIDAZOLE 500 MG TABLET PO SCH (21:02)
[2018-12-06] MEDS: FENOFIBRATE NANOCRYS (145 MG) 145 MG TABLET GT SCH (21:03)
[2018-12-07] VITALS: BP 127/60
[2018-12-07 04:00] VITALS: BP 145/65
[2018-12-07] MEDS: METRONIDAZOLE 500 MG TABLET PO SCH ×3 (04:49→22:08)
[2018-12-07] MEDS: BLOOD SUGAR DIAGNOSTIC 1 EACH STRIP IN SCH ×3 (05:29→17:15)
[2018-12-07] MEDS: METOCLOPRAMIDE HCL 10 MG/2 ML VIAL IV SCH ×3 (05:29→17:07)
[2018-12-07] MEDS: POLYVINYL ALCOHOL 15 ML BOTTLE EACHEYE SCH ×3 (05:34→17:15)
--- NOTE | 2018-12-07 07:00 | NUR ---
RN OPENING NOTE RECEIVED PATIENT OBTUNDED, ON VENT. VENT SETTINGS MD ORDERED. HAS A FLEXISEAL AND PAPPAS WITH CLEAR AND YELLOW URINE. PER NOC SHIFT RN, PATIENT'S HD CATH HAS BEEN REMOVED A WEEK AGO. ON GT FEEDING WITH NEPRO AT 30ML/HR. NO SIGNS OF ANY BREATHING DISTRESS, 100% ON MONITOR FOR SPO2. ISOLATION PRECAUTIONS MAINTAINED. BED LOCKED AND ON LOW POSITION. WILL CONTINUE TO MONITOR.
[2018-12-07 08:00] VITALS: BP 129/65
[2018-12-07 08:15] LABS: BASOPHILS # (AUTO) 0.1 /CMM (0.0-0.2); BASOPHILS % (AUTO) 0.3 % (0.0-2.0); EOSINOPHILS % (AUTO) 4.1 % (0.0-6.0); HEMATOCRIT 22 % (39-51); HEMOGLOBIN 7.1 g/dL (13.5-17.5); LYMPHOCYTES # (AUTO) 1.6 /CMM (0.8-4.8); MEAN CORPUSCULAR HGB CONC 32 g/dl (31.0-36.0); MEAN CORPUSCULAR VOLUME 98 fL (80-96); MONOCYTES # (AUTO) 0.6 /CMM (0.1-1.30); MONOCYTES % (AUTO) 2.8 % (2.0-12.0); NEUTROPHILS # (AUTO) 17.3 /CMM (1.8-8.9); NEUTROPHILS % (AUTO) 84.8 % (43.0-81.0); PLATELET COUNT (AUTO) 484 /CMM (150-450); RED BLOOD CELL COUNT(AUTO) 2.28 MIL/uL (4.5-6.0); WHITE BLOOD COUNT (AUTO) 20.4 K/uL (4.3-11.0)
[2018-12-07 08:16] LABS: CALCIUM, SERUM 8.5 mg/dL (8.5-10.1); CREATININE 4.9 mg/dL (0.6-1.3); POTASSIUM 3.9 mmol/L (3.5-5.1)
[2018-12-07 08:53] LABS: APPEARANCE,URINE CLEAR (CLEAR); BILIRUBIN,URINE NEGATIVE (NEGATIVE); BLOOD, URINE TRACE Ery/uL (NEGATIVE); COLOR,URINE YELLOW (YELLOW); KETONES,URINE NEGATIVE (NEGATIVE); LEUKOCYTE ESTERASE ,URINE TRACE (NEGATIVE); NITRITE, URINE POSITIVE (NEGATIVE); PROTEIN,URINE 2+ mg/dl (NEGATIVE); UGLUCOSE NEGATIVE (NEGATIVE); UROBILINOGEN,URINE 0.2 EU/dL (0.2)
[2018-12-07] MEDS: VIT B CMPLX 3/FA/VIT C/BIOTIN 1 TAB TABLET GT SCH (09:02)
[2018-12-07] MEDS: LACTOBACILLUS RHAMNOSUS GG 1 EACH CAP.SPRINK GT SCH ×2 (09:02→17:07)
[2018-12-07] MEDS: SUCRALFATE 1 G/10 ML UDC GT SCH ×4 (09:02→22:08)
[2018-12-07] MEDS: PANTOPRAZOLE 40 MG/PACK PACK GT SCH (09:02)
[2018-12-07] MEDS: ZINC SULFATE 220 MG CAPSULE GT SCH (09:02)
[2018-12-07] MEDS: ASCORBIC ACID 500 MG TABLET GT SCH (09:03)
[2018-12-07] MEDS: HYDROCODONE/APAP 5/325MG 1 EACH TABLET GT SCH (09:03)
[2018-12-07] MEDS: METOPROLOL TARTRATE 50 MG TABLET GT SCH ×2 (09:04→22:08)
[2018-12-07] MEDS: DAKINS QUARTER STRENGTH (0.125%) 480 ML BOTTLE TOP SCH ×2 (09:12→17:33)
[2018-12-07] MEDS: INSULIN GLARGINE, 100 UNIT/ML CARTRIDGE SQ SCH ×2 (09:12→22:30)
--- NOTE | 2018-12-07 09:17 | NUR ---
RT RECEIVED PT TRACH VENT DEPENDENT WITH NOTED SETTINGS. GRINDING MACHINE OPERATOR DONE AND TRACH IS SECURE. VENT ALARMS CHECKED AND AUDIBLE. VENT PLUGGED IN RED OUTLET. B/S SAVI RHONCHI, SX WITH MOD THK PALE YELLOW SECRETIONS. AMBU BAG NOTED HOB. PT ON CONTINUOUS PULSE OX, SPO2 & HR WITHIN NORMAL LIMITS. PT TOLERATING SETTINGS WELL. NO SOB OR RESP DISTRESS NOTED AT THIS TIME. WILL CONTINUE TO MONITOR T/O SHIFT.
[2018-12-07 09:53] LABS: BACTERIA,URINE 3+ /HPF (None Seen); SQUAMOUS EPITHELIAL CELL,UR None Seen /HPF (None Seen)
[2018-12-07 10:13] LABS: BAND % (MANUAL) 4 % (0.0-5.0); EOSINOPHILS % (MANUAL) 1 % (0-4); LYMPHOCYTES % (MANUAL) 9 % (16-48); MONOCYTES % (MANUAL) 1 % (0-11.0); NEUTROPHILS % (MANUAL) 85 (42-76)
[2018-12-07 12:00] VITALS: BP 117/58
[2018-12-07 16:00] VITALS: BP 127/56
[2018-12-07] MEDS ORDERED: LIDOCAINE 1% INJ 50 ML MDV IJ ONE ×2 (17:00)
[2018-12-07] MEDS: FLUCONAZOLE IN NS 100 MG in PREMIX 1 EA IV SCH ×2 (17:11)
[2018-12-07] MEDS ORDERED: HEPARIN SODIUM, PORCINE 1000 UNIT/1 ML VIAL IV ONE (17:30)
[2018-12-07] MEDS ORDERED: HEPARIN SODIUM, PORCINE 5000 UNITS/1 ML VIAL IV ONE (17:30)
[2018-12-07] MEDS: NEPRO 1,000 ML BOTTLE GT PRN (18:31)
--- NOTE | 2018-12-07 19:00 | NUR ---
CUSTOMER SUCCESS MANAGER NOTES PT ENDORSED TO PM SHIFT FOR MARKELL. DR LEE AT BS WITH PM NURSE DOING HD CATH INSERTION. PT IN BED RESTING. ON TELE MONITOR WITH SR. O2 SETTINGS ON VENT MD ORDERED. ISOLATION PRECAUTIONS MAINTAINED. CALL LIGHT IN REACH. BED IN LOCKED/LOWEST POSITION. ALL NEEDS ATTENDED TO.
[2018-12-07 20:00] VITALS: BP 136/73
[2018-12-07] MEDS: FENOFIBRATE NANOCRYS (145 MG) 145 MG TABLET GT SCH (22:08)
[2018-12-08] VITALS (9 sets, daily range): BP systolic 119–150; BP diastolic 56–77
[2018-12-08] MEDS: POLYVINYL ALCOHOL 15 ML BOTTLE EACHEYE SCH ×5 (00:45→23:05)
[2018-12-08] MEDS: METOCLOPRAMIDE HCL 10 MG/2 ML VIAL IV SCH ×5 (01:16→23:08)
[2018-12-08] MEDS: BLOOD SUGAR DIAGNOSTIC 1 EACH STRIP IN SCH ×5 (01:20→23:01)
--- NOTE | 2018-12-08 06:00 | NUR ---
pt s/p [facility] cath insertion for hemodialysis. resulted md not yet aware of malposition will notify in am. pt on continuos Vent support, no acute distress, suctioned conservatively as per family refused suctioning thru trache and prefers orally. kept comfortable, repositioned. no residual grom gt feeding,tolerated well, no vomiting when cleaned and turned.vss,afebrile, urine and stool sample sent to lab.will continue to monitor. sinus rhythm on monitor.
[2018-12-08] MEDS: METRONIDAZOLE 500 MG TABLET PO SCH ×3 (06:04→22:49)
[2018-12-08 07:20] LABS: BASOPHILS # (AUTO) 0.1 /CMM (0.0-0.2); BASOPHILS % (AUTO) 0.4 % (0.0-2.0); EOSINOPHILS % (AUTO) 3.6 % (0.0-6.0); HEMATOCRIT 21 % (39-51); LYMPHOCYTES # (AUTO) 1.8 /CMM (0.8-4.8); LYMPHOCYTES % (AUTO) 10.1 % (20.0-44.0); MEAN CORPUSCULAR HGB CONC 33 g/dl (31.0-36.0); MEAN CORPUSCULAR VOLUME 98 fL (80-96); MONOCYTES # (AUTO) 0.5 /CMM (0.1-1.30); NEUTROPHILS # (AUTO) 14.4 /CMM (1.8-8.9); NEUTROPHILS % (AUTO) 82.9 % (43.0-81.0); PLATELET COUNT (AUTO) 440 /CMM (150-450); RED BLOOD CELL COUNT(AUTO) 2.14 MIL/uL (4.5-6.0); WHITE BLOOD COUNT (AUTO) 17.3 K/uL (4.3-11.0)
[2018-12-08 07:28] LABS: HEMOGLOBIN 6.9 g/dL (13.5-17.5)
--- NOTE | 2018-12-08 07:30 | NUR ---
RN OPENING NOTES RECEIVED REPORT FROM HARBOR MASTER RN. IJ INSERTED AT BEDSIDE WITH ASSIST FROM HARBOR MASTER RN. PT IS IN BED RESTING NO SIGNS OF SOB OR PAIN NOTED. PT IS ON A VENT, FLEXISEAL, AND HAS A PAPPAS CATHETER DRAINING TO GRAVITY. WILL CONTINUE TO MONITOR.
[2018-12-08 07:31] LABS: CALCIUM, SERUM 8.6 mg/dL (8.5-10.1); POTASSIUM 3.9 mmol/L (3.5-5.1)
--- NOTE | 2018-12-08 08:22 | NUR ---
RT RECEIVED PT TRACH VENT DEPENDENT WITH NOTED SETTINGS. PIPE THREADER DONE AND TRACH IS SECURE. VENT ALARMS CHECKED AND AUDIBLE. VENT PLUGGED IN RED OUTLET. B/S SAVI RHONCHI, SX WITH MOD THK PALE YELLOW SECRETIONS. AMBU BAG NOTED HOB. PT ON CONTINUOUS PULSE OX, SPO2 & HR WITHIN NORMAL LIMITS. PT TOLERATING SETTINGS WELL. NO SOB OR RESP DISTRESS NOTED AT THIS TIME. WILL CONTINUE TO MONITOR T/O SHIFT.
[2018-12-08] MEDS: SUCRALFATE 1 G/10 ML UDC GT SCH ×4 (08:23→22:49)
[2018-12-08 08:48] LABS: BAND % (MANUAL) 2 % (0.0-5.0); EOSINOPHILS % (MANUAL) 2 % (0-4); LYMPHOCYTES % (MANUAL) 8 % (16-48); MONOCYTES % (MANUAL) 2 % (0-11.0); NEUTROPHILS % (MANUAL) 86 (42-76)
[2018-12-08] MEDS: VIT B CMPLX 3/FA/VIT C/BIOTIN 1 TAB TABLET GT SCH (09:41)
[2018-12-08] MEDS: ZINC SULFATE 220 MG CAPSULE GT SCH (09:41)
[2018-12-08] MEDS: HYDROCODONE/APAP 5/325MG 1 EACH TABLET GT SCH (09:41)
[2018-12-08] MEDS: PANTOPRAZOLE 40 MG/PACK PACK GT SCH (09:41)
[2018-12-08] MEDS: LACTOBACILLUS RHAMNOSUS GG 1 EACH CAP.SPRINK GT SCH ×2 (09:41→18:03)
[2018-12-08] MEDS: METOPROLOL TARTRATE 50 MG TABLET GT SCH ×2 (09:42→22:49)
[2018-12-08] MEDS: ASCORBIC ACID 500 MG TABLET GT SCH (09:45)
[2018-12-08] MEDS: INSULIN GLARGINE, 100 UNIT/ML CARTRIDGE SQ SCH ×2 (09:47→22:59)
[2018-12-08] MEDS: DAKINS QUARTER STRENGTH (0.125%) 480 ML BOTTLE TOP SCH ×2 (09:48→18:04)
[2018-12-08 11:41] LABS: HEMOGLOBIN 6.8 g/dL (13.5-17.5)
--- NOTE | 2018-12-08 11:47 | NUR ---
RN NOTES LAB CALLED FOR CRITICAL VALUES. MD ALREADY AWARE. AWAITING BLOOD TRANSFUSION.
[2018-12-08] MEDS ORDERED: LIDOCAINE 1% INJ 50 ML MDV IJ ONE (16:30)
--- NOTE | 2018-12-08 16:52 | NUR ---
patient seen and examined by isabel tobar and reviewed cxr post ij hd cath placement yesterday,will reinsert [facility] cath simone,daughter notified.
[2018-12-08] MEDS ORDERED: HEPARIN SODIUM, PORCINE 1000 UNIT/1 ML VIAL IV ONE (17:00)
--- NOTE | 2018-12-08 17:22 | NUR ---
dr. gunn notified and ok to give blood w/ hd cipriano nichols hd nurse notified regarding order to replace to hd cath r/t malpositioned per amadou inpatient services director for dr. marina serrano.
--- NOTE | 2018-12-08 17:31 | NUR ---
amadou assembler movement for dr. marina serrano called and ok to use hd cath on ij for now,[facility] hd nurse notified.altaf made aware.
--- NOTE | 2018-12-08 18:00 | NUR ---
RN NOTES CALLED DAUGHTER JOSE TO GIVE UPDATE. PT'S DAUGHTER IS THE DECISION MAKER AND WITH CHARGE NURSE GAVE CONSENT OVER THE PHONE.
[2018-12-08] MEDS: FLUCONAZOLE IN NS 100 MG in PREMIX 1 EA IV SCH ×2 (18:06)
--- NOTE | 2018-12-08 19:29 | NUR ---
RN CLOSING NOTES GAVE REPORT TO COIL INSPECTOR RN. IJ INSERTED AT BEDSIDE WITH ASSIST FROM COIL INSPECTOR RN. PT IS IN BED RESTING NO SIGNS OF SOB OR PAIN NOTED. PT IS ON A VENT, FLEXISEAL, AND HAS A PAPPAS CATHETER DRAINING TO GRAVITY. ENDORSED CONTINUITY OF CARE TO COIL INSPECTOR RN.
--- NOTE | 2018-12-08 20:00 | NUR ---
RN INITIAL NOTE RECEIVED PATIENT OBTUNDED, ON VENT. VENT SETTINGS MD ORDERED. HAS A FLEXISEAL AND PAPPAS WITH CLEAR AND YELLOW URINE. L WRIST #22 IV - TKO. R NECK ERNESTO CATH FOR HD. ON GT FEEDING WITH NEPRO AT 40ML/HR. NO SIGNS OF ANY BREATHING DISTRESS, 100% ON MONITOR FOR SPO2. ISOLATION PRECAUTIONS MAINTAINED. BED LOCKED AND ON LOW POSITION. WILL CONTINUE TO MONITOR.
[2018-12-08] MEDS: FENOFIBRATE NANOCRYS (145 MG) 145 MG TABLET GT SCH (22:49)
--- NOTE | 2018-12-08 23:00 | NUR ---
RN NOTES 1.5L REMOVED DURING HD TONIGHT. I UNIT IF PRBC GIVEN DURING HD.
[2018-12-09] VITALS: BP 135/70
[2018-12-09 04:00] VITALS: BP 146/89
[2018-12-09] MEDS: METRONIDAZOLE 500 MG TABLET PO SCH ×3 (04:49→22:08)
[2018-12-09] MEDS: NEPRO 1,000 ML BOTTLE GT PRN (04:50)
[2018-12-09] MEDS: POLYVINYL ALCOHOL 15 ML BOTTLE EACHEYE SCH ×3 (05:48→18:17)
[2018-12-09] MEDS: BLOOD SUGAR DIAGNOSTIC 1 EACH STRIP IN SCH ×3 (05:49→18:17)
[2018-12-09] MEDS: METOCLOPRAMIDE HCL 10 MG/2 ML VIAL IV SCH ×3 (05:54→17:14)
--- NOTE | 2018-12-09 07:00 | NUR ---
STAVE INSPECTOR OPENING NOTES RECEIVED PT IN BED, OBTUNDED. [facility] WITH LABORED BREATHING. RR 30. IV FLUIDS INFUSING. GT FEEDING RUNNING WITH NO RESIDUAL. HOB ELEVATED GREATER THAN [address] DEG. RECTAL TUBE IN PLACE. F/C IN PLACE DRAINING YELLOW URINE. COOLING BLANKET IN PLACE. LOW GRADE FEVER NOTED. BED IN LOCKED/LOWEST POSITION. CALL LIGHT IN REACH. WILL CONT TO MONITOR.
--- NOTE | 2018-12-09 07:12 | NUR ---
RN CLOSING NOTES PT IS IN BED RESTING NO SIGNS OF SOB OR PAIN NOTED. PT IS ON A VENT, FLEXISEAL, AND HAS A PAPPAS CATHETER DRAINING TO GRAVITY. ENDORSED CONTINUITY OF CARE TO DUCK OPERATOR RN.
[2018-12-09 08:00] VITALS: BP 134/75
--- NOTE | 2018-12-09 08:00 | NUR ---
CLERICAL SUPPORT NOTES PT NOTED WITH LABORED BREATHING. RT AT BEDSIDE. NOTIFIED DR ARRIAZA, ORDERED CHEST XR AND ABG. ABG RESULTED: PH7.45,PCO2 20.5, PO2 111.3, HCO3 13.8. WILL FOLLOW UP WITH .
[2018-12-09 08:07] LABS: BASOPHILS % (AUTO) 0.2 % (0.0-2.0); EOSINOPHILS % (AUTO) 2.1 % (0.0-6.0); HEMATOCRIT 28 % (39-51); HEMOGLOBIN 9.4 g/dL (13.5-17.5); LYMPHOCYTES # (AUTO) 1.1 /CMM (0.8-4.8); LYMPHOCYTES % (AUTO) 6.1 % (20.0-44.0); MEAN CORPUSCULAR HGB CONC 33 g/dl (31.0-36.0); MEAN CORPUSCULAR VOLUME 93 fL (80-96); MONOCYTES # (AUTO) 0.4 /CMM (0.1-1.30); NEUTROPHILS # (AUTO) 16.1 /CMM (1.8-8.9); NEUTROPHILS % (AUTO) 89.6 % (43.0-81.0); PLATELET COUNT (AUTO) 472 /CMM (150-450); RED BLOOD CELL COUNT(AUTO) 3.03 MIL/uL (4.5-6.0); WHITE BLOOD COUNT (AUTO) 17.9 K/uL (4.3-11.0)
[2018-12-09 08:11] LABS: CALCIUM, SERUM 8.4 mg/dL (8.5-10.1); CREATININE 3.6 mg/dL (0.6-1.3); POTASSIUM 3.4 mmol/L (3.5-5.1)
--- NOTE | 2018-12-09 08:45 | NUR ---
MANUFACTURING JOB TITLES NOTES PT AC ON VENT CHANGED BY RT
[2018-12-09] MEDS: ZINC SULFATE 220 MG CAPSULE GT SCH (08:55)
[2018-12-09] MEDS: METOPROLOL TARTRATE 50 MG TABLET GT SCH ×2 (08:56→22:08)
[2018-12-09] MEDS: HYDROCODONE/APAP 5/325MG 1 EACH TABLET GT SCH (08:56)
[2018-12-09] MEDS: VIT B CMPLX 3/FA/VIT C/BIOTIN 1 TAB TABLET GT SCH (08:56)
[2018-12-09] MEDS: LACTOBACILLUS RHAMNOSUS GG 1 EACH CAP.SPRINK GT SCH ×2 (08:56→16:35)
[2018-12-09] MEDS: PANTOPRAZOLE 40 MG/PACK PACK GT SCH (08:57)
[2018-12-09] MEDS: SUCRALFATE 1 G/10 ML UDC GT SCH ×4 (08:57→22:08)
[2018-12-09] MEDS: ASCORBIC ACID 500 MG TABLET GT SCH (08:57)
--- NOTE | 2018-12-09 09:00 | NUR ---
REFRIGERATION INSULATOR NOTES RECTAL TUBE LYING ON BED. ATTEMPTED TO REINSERT NEW FLEXISEAL W/O SUCCESS. PT'S RECTUM IS SWOLLEN AND IS UNABLE TO HOLD RECTAL TUBE IN PLACE. NOTIFIED LOPEZ ESPINAL. SHE SAID IT'S OK TO D/C. WILL DO WOUND/YESICA CARE AND KEEP WOUND CLEAN.
[2018-12-09] MEDS: INSULIN GLARGINE, 100 UNIT/ML CARTRIDGE SQ SCH ×2 (09:06→22:17)
[2018-12-09] MEDS: DAKINS QUARTER STRENGTH (0.125%) 480 ML BOTTLE TOP SCH ×2 (09:19→17:41)
[2018-12-09 10:13] LABS: ABG BASE EXCESS -8.5 mmol/L; ABG OXYGEN SATURATION 97.6 % (92.0-98.5); ABG PCO2 20.5 mmHg (35.0-45.0); ABG PH 7.447 (7.350-7.450); ABG PO2 111.3 mmHg (75.0-100.0); AaDO2 150.3 mmHg; COHb 0.3 % (0.5-1.5); MetHb 0.8 % (0.0-1.5); O2Hb 96.5 % (94.0-97.0); PEEP,BG 5 cm H2O; SITE, ABG Right Radial; VT, ABG 500 mL
[2018-12-09 12:00] VITALS: BP 127/67
--- NOTE | 2018-12-09 12:00 | NUR ---
GASSER MACHINE OPERATOR NOTES PER DEBBI RAI TO REPLACE POTASSIUM WITH 40 MEQ POWDER GT. WILL CONT TO MONITOR.
[2018-12-09] MEDS ORDERED: POTASSIUM CHLORIDE 20 MEQ POWDER PACKET PO ONE (12:30)
[2018-12-09 16:00] VITALS: BP 134/77
[2018-12-09] MEDS: ACETAMINOPHEN 325 MG TABLET PO PRN (17:41)
[2018-12-09] MEDS ORDERED: FLUCONAZOLE IN NS,PREMIX 200 MG in PREMIX 1 EA IV SCH ×2 (18:00)
--- NOTE | 2018-12-09 18:51 | NUR ---
FREELANCE PHOTOGRAPHER CLOSING NOTES PT RESTING IN BED, WITH COOLING BLANKET FOR LOW GRADE FEVER. GAVE MEDS FOR FEVER. PT ON DIAPER WITH CONTINUOUS LIQUID BROWN STOOL. BREATHING IMPROVED WITH CHANGE IN VENT SETTINGS PER MD ORDER. PT TOLERATED HD TODAY WITH 1L OUT. NO RESIDUAL NOTED ON GT FEEDING. BED IN LOCKED/LOWEST POSITION. CALL LIGHT IN REACH. WILL ENDORSE TO PM NURSE FOR MARKELL.
[2018-12-09 20:00] VITALS: BP 149/83
[2018-12-09] MEDS ORDERED: COLISTIMETHATE SODIUM 100 MG in IV NS 0.9% 50 ML IV SCH (20:00)
--- NOTE | 2018-12-09 20:00 | NUR ---
RN INITIAL NOTES RECEIVED PT IN BED, OBTUNDED. PT ON MECH VENT WITH LABORED BREATHING.L WRIST IV IN PLACE TKO.R IJ ERNESTO CATH FOR HD IN PLACE. GT FEEDING RUNNING ORDERED . HOB ELEVATED GREATER THAN 35 DEG. F/C IN PLACE DRAINING YELLOW URINE. COOLING BLANKET IN PLACE, TEMP 100.3. BED IN LOCKED/LOWEST POSITION. CALL LIGHT IN REACH. WILL CONT TO MONITOR.
[2018-12-09] MEDS: FENOFIBRATE NANOCRYS (145 MG) 145 MG TABLET GT SCH (22:08)
[2018-12-10] VITALS: BP 157/68
[2018-12-10] MEDS: METOCLOPRAMIDE HCL 10 MG/2 ML VIAL IV SCH ×4 (01:03→17:36)
[2018-12-10] MEDS: POLYVINYL ALCOHOL 15 ML BOTTLE EACHEYE SCH ×4 (01:06→17:28)
[2018-12-10] MEDS: BLOOD SUGAR DIAGNOSTIC 1 EACH STRIP IN SCH ×5 (01:09→23:51)
[2018-12-10 04:00] VITALS: BP 135/72
[2018-12-10] MEDS: METRONIDAZOLE 500 MG TABLET PO SCH ×3 (05:43→22:13)
--- NOTE | 2018-12-10 07:02 | NUR ---
FINISHER OPERATOR CLOSING NOTES PT RESTING IN BED, WITH COOLING BLANKET FOR LOW GRADE FEVER. PT ON DIAPER WITH CONTINUOUS LIQUID BROWN STOOL. BREATHING IMPROVED WITH CHANGE IN VENT SETTINGS PER MD ORDER. PT VOMITED X2 TUBE FEEDING WAS STOPPED TWICE. ALL NEED ANTICIPATED AND MET. BED IN LOCKED/LOWEST POSITION. CALL LIGHT IN REACH. WILL ENDORSE TO AM NURSE FOR MARKELL.
--- NOTE | 2018-12-10 07:15 | NUR ---
COUNTRY PRINTER INITIAL NOTES PT RESTING IN BED, WITH COOLING BLANKET FOR FEVER, PATIENT TEMP CURRENTLY 101.5. PT ON DIAPER. ON TELE MONITOR SINUS TACHY WITH HR 118. ON TRACH SETTING PER MD ORDER, MURIEL #8, AC 16, TV 50, FIO2 40, PEEP 5, TOLERATING WELL. IV L WRIST 22G, SALINE LOCK/TKO AND R IJ (ERNESTO CATH), CDI, NO INFILTRATION NOTED. ON GTUBE FEEDING, NEPRO RUNNING AT 20ML/HR. BED LOCKED AND LOWEST POSITION. CALL LIGHT WITHIN REACH. WILL CONTINUE TO MONITOR PATIENT CLOSELY THROUGHOUT SHIFT.
[2018-12-10] MEDS: ACETAMINOPHEN 325 MG TABLET PO PRN ×3 (07:23→22:49)
[2018-12-10 08:00] VITALS: BP 137/84
--- NOTE | 2018-12-10 08:15 | NUR ---
TOLL OPERATOR NOTES HD NURSE AT BEDSIDE. HOLDING ALL MEDICATIONS FOR NOW.
--- NOTE | 2018-12-10 10:15 | NUR ---
DRAWER IN [place] LOOM NOTES 0L OUT FOR HD TODAY PER HD NURSE. WILL CONT TO MONITOR PT.
[2018-12-10] MEDS: VIT B CMPLX 3/FA/VIT C/BIOTIN 1 TAB TABLET GT SCH (10:40)
[2018-12-10] MEDS: PANTOPRAZOLE 40 MG/PACK PACK GT SCH (10:40)
[2018-12-10] MEDS: DAKINS QUARTER STRENGTH (0.125%) 480 ML BOTTLE TOP SCH ×2 (10:40→17:28)
[2018-12-10] MEDS: METOPROLOL TARTRATE 50 MG TABLET GT SCH ×2 (10:40→22:13)
[2018-12-10] MEDS: SUCRALFATE 1 G/10 ML UDC GT SCH ×4 (10:40→22:11)
[2018-12-10] MEDS: HYDROCODONE/APAP 5/325MG 1 EACH TABLET GT SCH (10:41)
[2018-12-10] MEDS: ZINC SULFATE 220 MG CAPSULE GT SCH (10:41)
[2018-12-10] MEDS: LACTOBACILLUS RHAMNOSUS GG 1 EACH CAP.SPRINK GT SCH ×2 (10:41→17:35)
[2018-12-10] MEDS: ASCORBIC ACID 500 MG TABLET GT SCH (10:45)
[2018-12-10] MEDS: INSULIN GLARGINE, 100 UNIT/ML CARTRIDGE SQ SCH ×2 (10:49→21:00)
[2018-12-10 12:00] VITALS: BP 124/64
--- NOTE | 2018-12-10 12:06 | NUR ---
RT RECEIVED PT TRACH VENT DEPENDENT WITH NOTED SETTINGS. TONSORIAL ARTIST DONE AND TRACH IS SECURE. VENT ALARMS CHECKED AND AUDIBLE. VENT PLUGGED IN RED OUTLET. B/S SAVI RHONCHI, SX WITH MOD THK PALE YELLOW SECRETIONS. AMBU BAG NOTED HOB. PT ON CONTINUOUS PULSE OX, SPO2 & HR WITHIN NORMAL LIMITS. PT TOLERATING SETTINGS WELL. NO SOB OR RESP DISTRESS NOTED AT THIS TIME. WILL CONTINUE TO MONITOR T/O SHIFT.
--- NOTE | 2018-12-10 14:20 | NUR ---
LEAD JAVA J2EE DEVELOPER NOTES PT STILL FEBRILE. TEMP 100.9. TYLENOL PRN GIVEN. WILL GIVE COLD BATH WITH CATALYTIC CONVERTER OPERATOR HELPER.
[2018-12-10 16:00] VITALS: BP 104/67
[2018-12-10] MEDS: FLUCONAZOLE (100 MG) 100 MG TABLET PO SCH (18:49)
[2018-12-10] MEDS: CEFEPIME 1 GM in IV D5W 50 ML IV SCH (18:51)
--- NOTE | 2018-12-10 19:05 | NUR ---
STEM CRUSHER CLOSING NOTES PT RESTING IN BED, WITH COOLING BLANKET FOR FEVER. PT ON DIAPER. ON TELE MONITOR SINUS TACHY WITH HR 102. ON TRACH SETTING PER MD ORDER, MURIEL #8, AC 18, TV 50, FIO2 40, PEEP 5, TOLERATING WELL. IV L WRIST 22G, SALINE LOCK/TKO AND R IJ (ERNESTO CATH), CDI. ON GTUBE FEEDING, NEPRO RUNNING AT 30ML/HR. DISCONTINUED PAPPAS PER APPLICATIONS INTERN ORDER. ALL MD ORDERS ATTENDED. ALL NEEDS MET. SAFETY MEASURES IN PLACE THROUGHOUT SHIFT. ENDORSED TO GAGE DESIGNER NURSE FOR MARKELL.
--- NOTE | 2018-12-10 19:40 | NUR ---
PT REC'D TRACHED VIA SHILEY 8 ON [facility] VENT ON AC MODE. NO RESP DISTRESS OR SOB NOTED. SX'D FOR MOD AMT OF THICK YELLOW SECRETIONS. TRACH PATENT AND SECURED. ALARMS OR SET AND AUDIBLE. VENT PLUGGED INTO RED OUTLET. AMBU BAG BEDSIDE. WILL CONTINUE TO MONITOR. Addendum: 12/10/18 at 1941 by MANISH DOMINGUEZ RT Amended: Links added.
[2018-12-10 20:00] VITALS: BP 140/72
[2018-12-10] MEDS: SULFAMETH/TRIMETH 800/160 MG 1 UDTAB TABLET PO SCH (22:12)
[2018-12-10] MEDS: FENOFIBRATE NANOCRYS (145 MG) 145 MG TABLET GT SCH (22:13)
[2018-12-11] VITALS: BP 131/72
[2018-12-11] MEDS: POLYVINYL ALCOHOL 15 ML BOTTLE EACHEYE SCH ×4 (00:52→17:23)
[2018-12-11] MEDS: METOCLOPRAMIDE HCL 10 MG/2 ML VIAL IV SCH ×4 (00:56→17:23)
[2018-12-11 04:00] VITALS: BP 119/88
[2018-12-11] MEDS: BLOOD SUGAR DIAGNOSTIC 1 EACH STRIP IN SCH ×3 (05:50→17:41)
[2018-12-11] MEDS: METRONIDAZOLE 500 MG TABLET PO SCH ×3 (05:50→20:40)
[2018-12-11] MEDS: ERGOCALCIFEROL (VITAMIN D 2) 50,000 UNIT CAPSULE GT SCH (06:03)
[2018-12-11] MEDS: SUCRALFATE 1 G/10 ML UDC GT SCH ×4 (06:34→21:04)
[2018-12-11] MEDS: ACETAMINOPHEN 325 MG TABLET PO PRN (06:34)
--- NOTE | 2018-12-11 07:00 | NUR ---
afebrile thru out the night, held fdg due to emesis, sats consistently 100% on ac of 40%
--- NOTE | 2018-12-11 07:20 | NUR ---
RN OPENING NOTES RECEIVED PATIENT IN BED, OBTUNDED. NO SIGNS OF ANY PAIN OR IN ANY DISTRESS AT THIS TIME. GT FEEDING WAS STOPPED LAST NIGHT DUE TO PATIENT VOMITED ONCE LAST NIGHT AND ONCE FOR DAY SHIFT. WILL LET THE MD AWARE. PATIENT HAS A RECTAL TEMPERATURE MONITOR, NO FEVER AT THIS TIME. HAS A RIGHT HAND #22 SALINE LOCKED. BED LOCKED AND IN LOW POSITION. WILL CONTINUE TO MONITOR PATIENT CLOSELY
--- NOTE | 2018-12-11 07:25 | NUR ---
RT RECEIVED PT TRACH VENT DEPENDENT WITH NOTED SETTINGS. MANAGING PRINCIPAL DONE AND TRACH IS SECURE. VENT ALARMS CHECKED AND AUDIBLE. VENT PLUGGED IN RED OUTLET. B/S SAVI RHONCHI, SX WITH MOD THK PALE YELLOW SECRETIONS. AMBU BAG NOTED HOB. PT ON CONTINUOUS PULSE OX, PT TOLERATING SETTINGS WELL. NO SOB OR RESP DISTRESS NOTED AT THIS TIME. WILL CONTINUE TO MONITOR T/O SHIFT.
[2018-12-11 08:00] VITALS: BP 147/67
[2018-12-11] MEDS: VIT B CMPLX 3/FA/VIT C/BIOTIN 1 TAB TABLET GT SCH (08:23)
[2018-12-11] MEDS: ZINC SULFATE 220 MG CAPSULE GT SCH (08:23)
[2018-12-11] MEDS: SULFAMETH/TRIMETH 800/160 MG 1 UDTAB TABLET PO SCH ×2 (08:24→20:40)
[2018-12-11] MEDS: ASCORBIC ACID 500 MG TABLET GT SCH (08:24)
[2018-12-11] MEDS: METOPROLOL TARTRATE 50 MG TABLET GT SCH ×2 (08:24→20:40)
[2018-12-11] MEDS: PANTOPRAZOLE 40 MG/PACK PACK GT SCH (08:25)
[2018-12-11] MEDS: LACTOBACILLUS RHAMNOSUS GG 1 EACH CAP.SPRINK GT SCH ×2 (08:25→16:35)
[2018-12-11] MEDS: HYDROCODONE/APAP 5/325MG 1 EACH TABLET GT SCH (08:25)
[2018-12-11] MEDS: INSULIN GLARGINE, 100 UNIT/ML CARTRIDGE SQ SCH ×2 (08:31→20:49)
[2018-12-11] MEDS: DAKINS QUARTER STRENGTH (0.125%) 480 ML BOTTLE TOP SCH ×2 (08:33→16:36)
[2018-12-11 10:55] LABS: BASOPHILS % (AUTO) 0.3 % (0.0-2.0); HEMATOCRIT 23 % (39-51); HEMOGLOBIN 7.5 g/dL (13.5-17.5); LYMPHOCYTES # (AUTO) 1.5 /CMM (0.8-4.8); LYMPHOCYTES % (AUTO) 10.1 % (20.0-44.0); MEAN CORPUSCULAR HGB CONC 33 g/dl (31.0-36.0); MEAN CORPUSCULAR VOLUME 92 fL (80-96); MONOCYTES # (AUTO) 0.9 /CMM (0.1-1.30); MONOCYTES % (AUTO) 6.3 % (2.0-12.0); NEUTROPHILS # (AUTO) 11.8 /CMM (1.8-8.9); NEUTROPHILS % (AUTO) 80.3 % (43.0-81.0); PLATELET COUNT (AUTO) 395 /CMM (150-450); RED BLOOD CELL COUNT(AUTO) 2.47 MIL/uL (4.5-6.0); WHITE BLOOD COUNT (AUTO) 14.8 K/uL (4.3-11.0)
[2018-12-11 11:01] LABS: CALCIUM, SERUM 8.2 mg/dL (8.5-10.1); CREATININE 2.9 mg/dL (0.6-1.3); POTASSIUM 3.4 mmol/L (3.5-5.1)
[2018-12-11 12:00] VITALS: BP_SYST 118; BP_SYST 98; BP_DIAS 59; BP_DIAS 64
--- NOTE | 2018-12-11 12:32 | NUR ---
RN NOTE RECHECKED PATIENT'S BLOOD PRESSURE, 118/64. NO SIGNS OF ANY PAIN OR ANY DISTRESS AT THIS TIME
[2018-12-11 16:00] VITALS: BP_SYST 117; BP_SYST 120; BP_DIAS 69; BP_DIAS 72
[2018-12-11] MEDS: CEFEPIME 1 GM in IV D5W 50 ML IV SCH (17:22)
[2018-12-11] MEDS: FLUCONAZOLE (100 MG) 100 MG TABLET PO SCH (17:27)
--- NOTE | 2018-12-11 18:55 | NUR ---
RN CLOSING NOTE PATIENT IN BED OBTUNDED, WITH EYES OPEN. NO SIGNS OF ANY PAIN OR DISTRESS. NO FEVER DURING MY SHIFT. VOMITED ONCE, SMALL AMOUNT. FEEDING ON HOLD SINCE YESTERDAY DUE TO VOMITING. BLOOD SUGAR HAS BEEN STABLE THE WHOLE SHIFT, NO INSULIN COVERAGE HAS BEEN GIVEN. IV SITE SALINE LOCKED. NO LABS ORDERED FOR TOMORROW. WILL ENDORSE TO NOC SHIFT RN
--- NOTE | 2018-12-11 19:30 | NUR ---
RN INITIAL NOTES: RECEIVED [id number] FROM DAY RN. PT IN BED, NON VERBAL, OBTUNDED, MECH VENT TRACHE DEPENDED WITH THE FF SETTING AC 18, TV 500 FIO2 40% PEEP 5, TRACHE SHILEY #8. CONNECTED TO CONTINUOS PULSE OXIMETRY SPO2 100% HR 90,CLINICAL ALARMS CHECKED AND AUDIBLE, AMBU BAG AT BED SIDE. RIGHT IJ ERNESTO IN PLACED, NO ACTIVE BLEEDING NOTED. GTUBE IN PLACED, NO RESIDUAL OBTAINED, NOTED ABDOMEN TO BE SOFT BUT DISTENDED, NO FACIAL GRIMACE NOTED, APPEARS CALM AND COMFORTABLE. IV ACCESS PATENT AND FLUSHING WELL, ON HL. ON LEANNE MATTRESS,RLE OFFLOADED, LEFT BKA STAMP OFFLOADED. SAFETY PRECAUTIONS FOR FALL INITAITED, CALL LOIGHT IN REACH, WILL CONTINUE MONITORING PT.
[2018-12-11 20:00] VITALS: BP 153/77
--- NOTE | 2018-12-11 20:24 | NUR ---
RN NOTES: PT ON SINUS RHYTHM WITH ST DEPRESSION HR 89
[2018-12-11] MEDS: FENOFIBRATE NANOCRYS (145 MG) 145 MG TABLET GT SCH (21:04)
--- NOTE | 2018-12-11 22:00 | NUR ---
RN NOTES: MET WITH FAMILY AT BED SIDE, DISCUSSED PLAN OF CARE
[2018-12-12] VITALS: BP_SYST 148; BP_SYST 153; BP_DIAS 58; BP_DIAS 78
[2018-12-12] MEDS: BLOOD SUGAR DIAGNOSTIC 1 EACH STRIP IN SCH ×5 (00:03→23:15)
[2018-12-12] MEDS: METOCLOPRAMIDE HCL 10 MG/2 ML VIAL IV SCH ×5 (00:04→23:15)
[2018-12-12] MEDS: POLYVINYL ALCOHOL 15 ML BOTTLE EACHEYE SCH ×5 (00:05→23:20)
[2018-12-12 04:00] VITALS: BP 140/58
[2018-12-12] MEDS: METRONIDAZOLE 500 MG TABLET PO SCH ×3 (05:11→22:39)
--- NOTE | 2018-12-12 06:37 | NUR ---
RN CLOSING NOTES: PT REMAINS OBTUNDED, OPEN EYES SPONTANEOUSLY, REMAINS SINUS RHYTHM WITH ST DEPRESSION HR 92. TOLERATED MECH VENT SETTING WELL, AMBU BAG AT BED SIDE, CLINICAL ALARMS CHEK AND REMAINS AUDIBLE. IV ACCESS REMAINS PATENT AND FLUSHING WELL, ON HL. GTUBE SITE REMAINS FREE FROM S/S OF INFECTION, NO GTUBE RESIDUAL OBTAINED, REMAINS CLAMPED. NO EPISODE OF FEVER OR VOMITING THROUGHOUT THE SHIFT. LLE STAMP OFFLOADED, RLE OFFLOADED ON PILLOWS. VS REMAINS STABLE, NEEDS ATTENDED. SAFETY PRECAUTIONS FOR FALL REMAINS ENGAGED, CALL LIGHT IN REACH, WILL ENDORSE TO DAY RN FOR MARKELL.
--- NOTE | 2018-12-12 07:00 | NUR ---
INTAKE CLINICIAN INITIAL NOTES RECEIVED REPORT FROM OPERATIONS INTERN RN. PT SLEEPING IN BED, BUT EASILY TO AROUSE. NON VERBAL, OBTUNDED, MECH VENT TRACHE DEPENDENT WITH SETTING AC 18, TV 500 FIO2 40% PEEP 5, TRACHE SHILEY #8. CONNECTED TO CONTINUOS PULSE OXIMETRY SPO2 100% HR 90, CLINICAL ALARMS CHECKED AND AUDIBLE, AMBU BAG AT BED SIDE. RIGHT IJ ERNESTO IN PLACED, NO ACTIVE BLEEDING NOTED. GTUBE IN PLACED, NO RESIDUAL OBTAINED, NOTED ABDOMEN TO BE SOFT BUT DISTENDED. IV ACCESS PATENT AND FLUSHING WELL, ON TKO. ON LEANNE MATTRESS, RLE OFFLOADED, LEFT BKA STAMP OFFLOADED. SAFETY PRECAUTIONS IN PLACE. CALL LIGHT WITHIN REACH, WILL CONTINUE MONITORING PT.
[2018-12-12 08:00] VITALS: BP 131/81
[2018-12-12] MEDS: SUCRALFATE 1 G/10 ML UDC GT SCH ×4 (08:29→22:39)
[2018-12-12] MEDS: ZINC SULFATE 220 MG CAPSULE GT SCH (09:08)
[2018-12-12] MEDS: SULFAMETH/TRIMETH 800/160 MG 1 UDTAB TABLET PO SCH ×2 (09:09→22:39)
[2018-12-12] MEDS: METOPROLOL TARTRATE 50 MG TABLET GT SCH ×2 (09:09→22:39)
[2018-12-12] MEDS: ASCORBIC ACID 500 MG TABLET GT SCH (09:10)
[2018-12-12] MEDS: DAKINS QUARTER STRENGTH (0.125%) 480 ML BOTTLE TOP SCH ×2 (09:10→16:35)
[2018-12-12] MEDS: LACTOBACILLUS RHAMNOSUS GG 1 EACH CAP.SPRINK GT SCH ×2 (09:10→18:02)
[2018-12-12] MEDS: VIT B CMPLX 3/FA/VIT C/BIOTIN 1 TAB TABLET GT SCH (09:10)
[2018-12-12] MEDS: PANTOPRAZOLE 40 MG/PACK PACK GT SCH (09:10)
[2018-12-12] MEDS: HYDROCODONE/APAP 5/325MG 1 EACH TABLET GT SCH (09:10)
--- NOTE | 2018-12-12 09:15 | NUR ---
[place] NOTES HEMODIALYSIS AT BEDSIDE.
[2018-12-12] MEDS: INSULIN GLARGINE, 100 UNIT/ML CARTRIDGE SQ SCH ×2 (09:21→22:41)
[2018-12-12 09:34] LABS: BASOPHILS # (AUTO) 0.1 /CMM (0.0-0.2); BASOPHILS % (AUTO) 0.4 % (0.0-2.0); EOSINOPHILS % (AUTO) 2.6 % (0.0-6.0); HEMATOCRIT 25 % (39-51); HEMOGLOBIN 8.4 g/dL (13.5-17.5); LYMPHOCYTES # (AUTO) 1.9 /CMM (0.8-4.8); LYMPHOCYTES % (AUTO) 13.4 % (20.0-44.0); MEAN CORPUSCULAR HGB CONC 33 g/dl (31.0-36.0); MEAN CORPUSCULAR VOLUME 93 fL (80-96); MONOCYTES # (AUTO) 0.7 /CMM (0.1-1.30); MONOCYTES % (AUTO) 5.1 % (2.0-12.0); NEUTROPHILS # (AUTO) 11.2 /CMM (1.8-8.9); NEUTROPHILS % (AUTO) 78.5 % (43.0-81.0); PLATELET COUNT (AUTO) 406 /CMM (150-450); RED BLOOD CELL COUNT(AUTO) 2.75 MIL/uL (4.5-6.0); WHITE BLOOD COUNT (AUTO) 14.2 K/uL (4.3-11.0)
[2018-12-12 09:44] LABS: ALBUMIN 1.5 g/dL (3.4-5.0); BILIRUBIN,TOTAL 0.6 mg/dL (0.2-1.0); CALCIUM, SERUM 8.4 mg/dL (8.5-10.1); CREATININE 3.2 mg/dL (0.6-1.3); MAGNESIUM 1.8 mg/dL (1.8-2.4); PHOSPHORUS 2.1 mg/dL (2.5-4.9); POTASSIUM 3.8 mmol/L (3.5-5.1); TOTAL PROTEIN, SERUM 6.6 g/dL (6.4-8.2)
[2018-12-12 12:00] VITALS: BP 114/81
[2018-12-12] MEDS: NEPRO 1,000 ML BOTTLE GT PRN (12:20)
[2018-12-12 16:00] VITALS: BP 128/70
[2018-12-12] MEDS: CEFEPIME 1 GM in IV D5W 50 ML IV SCH (18:39)
[2018-12-12] MEDS: FLUCONAZOLE (100 MG) 100 MG TABLET PO SCH (18:42)
--- NOTE | 2018-12-12 19:30 | NUR ---
FILM LOADER CLOSING NOTES PT RESTING IN BED NON VERBAL, OBTUNDED, MECH VENT TRACHE DEPENDENT WITH SETTING AC 18, TV 500 FIO2 40% PEEP 5, TRACHE SHILEY #8. CONNECTED TO CONTINUOS PULSE OXIMETRY SPO2 100% HR 90, CLINICAL ALARMS CHECKED AND AUDIBLE, AMBU BAG AT BED SIDE. RIGHT IJ ERNESTO IN PLACED, NO ACTIVE BLEEDING NOTED. GTUBE IN PLACE, FEEDING RUNNING AT 10ML/HR. 5ML RESIDUAL OBTAINED, NOTED ABDOMEN TO BE SOFT BUT DISTENDED. IV ACCESS PATENT AND FLUSHING WELL, ON TKO. ON LEANNE MATTRESS, RLE OFFLOADED, LEFT BKA STAMP OFFLOADED. SAFETY PRECAUTIONS IN PLACE THROUGHOUT SHIFT. ENDORSED TO CHILD CARE LEAD TEACHER NURSE FOR MARKELL. Addendum: 12/12/18 at 1945 by ROSA MARIA DWYER RN ALL MD ORDERS ATTENDED.
[2018-12-12 20:00] VITALS: BP 166/70
--- NOTE | 2018-12-12 20:00 | NUR ---
RN INITIAL NOTES RECEIVED PT RESTING IN BED. NON VERBAL, OBTUNDED, MECH VENT TRACH DEPENDENT WITH SETTING AC 18, TV 500 FIO2 40% PEEP 5, TRACH SHILEY #8. CONNECTED TO CONTINUOS PULSE OXIMETRY SPO2 100%. ON TELE SR WITH HR 84. RIGHT IJ ERNESTO IN PLACED. G TUBE IN PLACED, NO RESIDUAL. IV ACCESS PATENT AND FLUSHING WELL, ON TKO. ON LEANNE MATTRESS, RLE OFFLOADED, LEFT BKA STAMP OFFLOADED. SAFETY PRECAUTIONS IN PLACE. CALL LIGHT WITHIN REACH, WILL CONTINUE MONITOR
--- NOTE | 2018-12-12 21:00 | NUR ---
RN NOTES PT VOMITED AND TUBE FEEDING WAS TURNED OFF. WILL CONT TO MONITOR.
--- NOTE | 2018-12-12 22:00 | NUR ---
RN NOTES GAVE HAND OFF REPORT TO LEANNE CASTAÑEDA FOR MARKELL
--- NOTE | 2018-12-12 22:06 | NUR ---
TELE/RN OPENING NOTES REPORT RECEIVED FROM GARRY HAWTHORNE. FAMILY MEMBERS AT BEDSIDE. OBTUNDED, OPENS EYES SPONTANEOUSLY. VENT DEPENDENT. NO S/S OF ACUTE DISTRESS NOTED. NO FACIAL GRIMACING OR S/S OF PAIN NOTED. ON TELE MONITOR SHOWING SR, HR 85. IV TO RIGHT HAND PATENT AND INTACT. RIJ ERNESTO CATH WITH DRESSING C/D/I. GT FEEING ON HOLD AT THIS TIME D/T VOMITING PER RN. BED IN LOW/LOCKED POSITION WITH CALL LIGHT IN REACH, HOB ELEVATED. ISOLATION PRECAUTIONS IMPLEMENTED. WILL CONTINUE TO MONITOR
[2018-12-12] MEDS: FENOFIBRATE NANOCRYS (145 MG) 145 MG TABLET GT SCH (22:39)
--- NOTE | 2018-12-12 22:51 | NUR ---
TELE/RN NOTES TUBE FEEDING RESUMED. HOB ELEVATED FOR RISK OF ASPIRATION. WILL MONITOR FOR VOMITING
[2018-12-12] MEDS: INSULIN ASPART/LISPRO 100 UNIT/ML CARTRIDGE SQ PRN (23:15)
[2018-12-13] VITALS (8 sets, daily range): BP systolic 121–153; BP diastolic 64–78
--- NOTE | 2018-12-13 02:37 | NUR ---
TELE/RN NOTES PT ROUNDING PERFORMED. BREATHING EVEN AND UNLABORED. IN NO ACUTE DISTRESS. HOB REMAINS ELEVATED. NO EPISODES OF VOMITING. WILL CONTINUE TO MONITOR
[2018-12-13] MEDS: BLOOD SUGAR DIAGNOSTIC 1 EACH STRIP IN SCH ×3 (05:30→17:26)
[2018-12-13] MEDS: METOCLOPRAMIDE HCL 10 MG/2 ML VIAL IV SCH ×3 (05:31→17:05)
[2018-12-13] MEDS: INSULIN ASPART/LISPRO 100 UNIT/ML CARTRIDGE SQ PRN (05:40)
[2018-12-13] MEDS: METRONIDAZOLE 500 MG TABLET PO SCH ×3 (05:40→21:33)
[2018-12-13] MEDS: POLYVINYL ALCOHOL 15 ML BOTTLE EACHEYE SCH ×3 (05:40→17:02)
[2018-12-13] MEDS: SUCRALFATE 1 G/10 ML UDC GT SCH ×4 (06:35→21:33)
--- NOTE | 2018-12-13 06:40 | NUR ---
TELE/RN CLOSING NOTES PT WITH EYES OPEN, OBTUNDED. VENT DEPENDENT WITH SETTINGS AC: 18, TV: 500, FIO2: 40% AND PEEP: 5. BREATHING EVEN AND UNLABORED. IN NO ACUTE DISTRESS. HOB ELEVATED. SUCTION SETUP AT BEDSIDE. ON TELE MONITOR SHOWING SR 80'S. WOUND CARE PROVIDED ORDERED. RIGHT HAND PATENT AND INTACT. RIJ ERNESTO CATH IN PLACE WITH DRESSING C/D/I. GT FEEDING RUNNING INACREASED TO 20CC/HR AT 0600, <10ML RESIDUALS NOTED. NO EPISODES OF VOMITING. NO SIGNIFICANT CHANGES OVERNIGHT. TURNED/REPOSITIONED Q2H. HEELS OFFLOADED. BED REMAINS IN LOW/LOCKED POSITION WITH CALL LIGHT IN REACH. SIDE RAILS UPX3. WILL ENORSE TO DAY SHIFT RN MARKELL.
[2018-12-13 07:09] LABS: BASOPHILS # (AUTO) 0.1 /CMM (0.0-0.2); BASOPHILS % (AUTO) 0.5 % (0.0-2.0); EOSINOPHILS % (AUTO) 3.3 % (0.0-6.0); HEMATOCRIT 25 % (39-51); HEMOGLOBIN 8.2 g/dL (13.5-17.5); LYMPHOCYTES # (AUTO) 2.3 /CMM (0.8-4.8); MEAN CORPUSCULAR HGB CONC 33 g/dl (31.0-36.0); MEAN CORPUSCULAR VOLUME 93 fL (80-96); MONOCYTES # (AUTO) 1.1 /CMM (0.1-1.30); MONOCYTES % (AUTO) 6.1 % (2.0-12.0); NEUTROPHILS # (AUTO) 13.4 /CMM (1.8-8.9); NEUTROPHILS % (AUTO) 77.1 % (43.0-81.0); PLATELET COUNT (AUTO) 371 /CMM (150-450); RED BLOOD CELL COUNT(AUTO) 2.64 MIL/uL (4.5-6.0); WHITE BLOOD COUNT (AUTO) 17.3 K/uL (4.3-11.0)
--- NOTE | 2018-12-13 07:10 | NUR ---
RN OPENING NOTES RECEIVED PATIENT IN BED, OBTUNDED. NO SIGNS OF ANY PAIN OR IN ANY DISTRESS AT THIS TIME. GT FEEDING NEPRO RUNNING AT 20ML/HR, GOAL IS 40ML/HR. PATIENT HAS A RECTAL TEMPERATURE MONITOR, NO FEVER AT THIS TIME. HAS A RIGHT HAND #22 SALINE LOCKED. HAS A RIGHT IJ ERNESTO CATH FOR DIALYSIS. HAD DIALYSIS YESTERDAY, PER NOC SHIFT. BED LOCKED AND IN LOW POSITION. WILL CONTINUE TO MONITOR PATIENT CLOSELY
[2018-12-13 07:13] LABS: CALCIUM, SERUM 8.2 mg/dL (8.5-10.1); CREATININE 2.9 mg/dL (0.6-1.3); POTASSIUM 3.6 mmol/L (3.5-5.1)
[2018-12-13] MEDS: LACTOBACILLUS RHAMNOSUS GG 1 EACH CAP.SPRINK GT SCH ×2 (08:10→16:08)
[2018-12-13] MEDS: ZINC SULFATE 220 MG CAPSULE GT SCH (08:10)
[2018-12-13] MEDS: HYDROCODONE/APAP 5/325MG 1 EACH TABLET GT SCH (08:10)
[2018-12-13] MEDS: PANTOPRAZOLE 40 MG/PACK PACK GT SCH (08:10)
[2018-12-13] MEDS: VIT B CMPLX 3/FA/VIT C/BIOTIN 1 TAB TABLET GT SCH (08:10)
[2018-12-13] MEDS: ASCORBIC ACID 500 MG TABLET GT SCH (08:10)
[2018-12-13] MEDS: SULFAMETH/TRIMETH 800/160 MG 1 UDTAB TABLET PO SCH ×2 (08:10→21:33)
[2018-12-13] MEDS: METOPROLOL TARTRATE 50 MG TABLET GT SCH ×2 (08:19→21:33)
[2018-12-13] MEDS: INSULIN GLARGINE, 100 UNIT/ML CARTRIDGE SQ SCH ×2 (08:20→21:38)
[2018-12-13] MEDS: DAKINS QUARTER STRENGTH (0.125%) 480 ML BOTTLE TOP SCH ×2 (08:20→17:02)
--- NOTE | 2018-12-13 08:40 | NUR ---
RT NOTE RECEIVED PT MECHANICALLY VENTILATED VIA SHILEY 8 CUFFED TRACHEOSTOMY TUBE. CUFF INFLATED. TRACH TUBE MIDLINE AND SECURE. VENTILATOR SETTINGS PRESCRIBED. ALARMS SET PER PROTOCOL AND AUDIBLE. VENT PLUGGED IN TO RED OUTLET. AMBU BAG AT BED SIDE. NO DISTRESS NOTED AT MOMENT. Addendum: 12/13/18 at 0842 by HILLARY SANTACRUZ RT Amended: Links added.
--- NOTE | 2018-12-13 09:00 | NUR ---
RN NOTE PATIENT VOMITED X1 AT 0900. REDUCED THE GT FEEDING FROM 20ML TO 10ML/HR. NO RESIDUAL WAS NOTED. VOMIT WAS SMALL AMOUNT AND YELLOWISH.
--- NOTE | 2018-12-13 12:15 | NUR ---
RN NOTE PATIENT VOMITED AGAIN FOR THE SECOND TIME DURING MY SHIFT. SAME COLOR, YELLOW. SMALL AMOUNT. STOPPED THE GT FEEDING. RESIDUAL WAS 30ML ONLY. AWARE
[2018-12-13] MEDS: CEFEPIME 1 GM in IV D5W 50 ML IV SCH (17:05)
[2018-12-13] MEDS: FLUCONAZOLE (100 MG) 100 MG TABLET PO SCH (17:05)
--- NOTE | 2018-12-13 18:45 | NUR ---
RN CLOSING NOTE PATIENT IN BED OBTUNDED, WITH EYES OPEN. NO SIGNS OF ANY PAIN OR DISTRESS AT THIS TIME. NO FEVER DURING MY SHIFT. VOMITED TWICE, SMALL AMOUNT, YELLOW COLOR. MD AWARE. FEEDING ON HOLD SINCE AM DUE TO VOMITING. BLOOD SUGAR HAS BEEN STABLE THE WHOLE SHIFT, NO INSULIN COVERAGE HAS BEEN GIVEN. IV SITE SALINE LOCKED ON RIGHT HAND. WILL ENDORSE TO NOC SHIFT RN
--- NOTE | 2018-12-13 19:35 | NUR ---
RT PT RECEIVED TRACHED ON [facility] VENT ON CHARTED SETTINGS. NO SIGNS OF RESP DISTRESS NOTED AT THIS TIME. AIRWAY PATENT AND SECURED. PT SUCTIONED. ALARMS SET AND AUDIBLE. AMBUBAG AT BEDSIDE. VENT CONNECTED TO RED OUTLET. WILL CONT TO MONITOR. Addendum: 12/13/18 at 2034 by CARLOS YEH RT Amended: Links added.
--- NOTE | 2018-12-13 20:00 | NUR ---
TELE/RN NOTES: RECEIVED PT. IN BED W/ HOB ELEVATED. PT. IS OBTUNDED W/ EYES OPEN. DOES NOT TRACK. NO FACIAL GRIMACES OR MOANING NOTED. ON MECH. VENT TOLERATING WELL. GTF STOPPED DUE TO PT. HAD EMESIS X 2 IN DAY SHIFT. PT. HAD 22 G ON RH PATENT AND INTACT W/ NO S/S OF INFECTION/INFILTRATION NOTED. PT. HAS RIGHT IJ ERNESTO CATH FOR DIALYSIS. LAST DIALYSIS ON 24. GTF STARTED AT 5 ML/HR W/ NO RESIDUAL NOTED. BED LOCKED AND IN LOW POSITION. INCONTINENT CARE RENDERED. WILL CONTINUE TO MONITOR.
[2018-12-13] MEDS: FENOFIBRATE NANOCRYS (145 MG) 145 MG TABLET GT SCH (21:33)
[2018-12-14] VITALS: BP_SYST 134; BP_SYST 147; BP_DIAS 63; BP_DIAS 71
[2018-12-14] MEDS: BLOOD SUGAR DIAGNOSTIC 1 EACH STRIP IN SCH ×4 (00:22→17:26)
[2018-12-14] MEDS: METOCLOPRAMIDE HCL 10 MG/2 ML VIAL IV SCH ×4 (00:24→17:06)
[2018-12-14] MEDS: POLYVINYL ALCOHOL 15 ML BOTTLE EACHEYE SCH ×4 (00:24→17:27)
[2018-12-14] MEDS ORDERED: TEMAZEPAM 7.5 MG CAPSULE PO PRN (01:00)
[2018-12-14 04:00] VITALS: BP 154/61
[2018-12-14] MEDS: METRONIDAZOLE 500 MG TABLET PO SCH ×3 (05:45→20:26)
--- NOTE | 2018-12-14 07:05 | NUR ---
ACTING TEACHER OPENING NOTES RECEIVED PT LYING ON BED WITH VENT DEPEND,ON TELE HR IS 88 WITH SR.NO SOB AND ACUTE DISTRESS NOTED.ON G TUBE FEEDING NEPRO @15ML/HR.IV LINE IS ON RIGHT HAND G22,RIGHT IJ ERNESTO CATH.SITE IS CLEAN,DRY AND INTACT.NO INFILTRATION NOTED.SAFETY IS MAINTAINED AT ALL TIMES.BED IS IN LOW POSITION AND LOCKED.CALL LIGHT IS WITHIN REACH.WILL CONTINUE TO MONITOR THE PT CLOSELY.
[2018-12-14 07:10] LABS: BASOPHILS % (AUTO) 0.3 % (0.0-2.0); EOSINOPHILS % (AUTO) 6.8 % (0.0-6.0); HEMATOCRIT 25 % (39-51); HEMOGLOBIN 8.3 g/dL (13.5-17.5); LYMPHOCYTES % (AUTO) 16.3 % (20.0-44.0); MEAN CORPUSCULAR HGB CONC 34 g/dl (31.0-36.0); MEAN CORPUSCULAR VOLUME 92 fL (80-96); MONOCYTES # (AUTO) 0.8 /CMM (0.1-1.30); MONOCYTES % (AUTO) 6.5 % (2.0-12.0); NEUTROPHILS # (AUTO) 8.6 /CMM (1.8-8.9); NEUTROPHILS % (AUTO) 70.1 % (43.0-81.0); PLATELET COUNT (AUTO) 344 /CMM (150-450); RED BLOOD CELL COUNT(AUTO) 2.69 MIL/uL (4.5-6.0); WHITE BLOOD COUNT (AUTO) 12.3 K/uL (4.3-11.0)
[2018-12-14 07:19] LABS: CALCIUM, SERUM 8.2 mg/dL (8.5-10.1); CREATININE 3.3 mg/dL (0.6-1.3); POTASSIUM 3.3 mmol/L (3.5-5.1)
--- NOTE | 2018-12-14 07:23 | NUR ---
RN/TELE NOTES: REPORT GIVEN TO NEXT SHIFT NURSE FOR MARKELL.
[2018-12-14 08:00] VITALS: BP 159/66
[2018-12-14] MEDS: SUCRALFATE 1 G/10 ML UDC GT SCH ×4 (08:33→21:55)
[2018-12-14] MEDS: PANTOPRAZOLE 40 MG/PACK PACK GT SCH (08:33)
[2018-12-14] MEDS: HYDROCODONE/APAP 5/325MG 1 EACH TABLET GT SCH (08:34)
[2018-12-14] MEDS: LACTOBACILLUS RHAMNOSUS GG 1 EACH CAP.SPRINK GT SCH ×2 (08:34→17:06)
[2018-12-14] MEDS: ASCORBIC ACID 500 MG TABLET GT SCH (08:34)
[2018-12-14] MEDS: METOPROLOL TARTRATE 50 MG TABLET GT SCH ×2 (08:34→20:26)
[2018-12-14] MEDS: VIT B CMPLX 3/FA/VIT C/BIOTIN 1 TAB TABLET GT SCH (08:35)
[2018-12-14] MEDS: SULFAMETH/TRIMETH 800/160 MG 1 UDTAB TABLET PO SCH ×2 (08:35→20:26)
[2018-12-14] MEDS: ZINC SULFATE 220 MG CAPSULE GT SCH (08:35)
[2018-12-14] MEDS: PROSOURCE / PROSTAT (PYXIS) 30 ML UDC GT SCH (09:09)
[2018-12-14] MEDS: INSULIN GLARGINE, 100 UNIT/ML CARTRIDGE SQ SCH ×2 (09:19→21:00)
[2018-12-14] MEDS: DAKINS QUARTER STRENGTH (0.125%) 480 ML BOTTLE TOP SCH ×2 (09:19→17:27)
[2018-12-14 12:00] VITALS: BP 143/78
--- NOTE | 2018-12-14 12:00 | NUR ---
SERVICE CAR OPERATOR NOTES NOTED WITH VOMITING X1,HOLD G TUBE FEEDING.NOTIFIED ARBORICULTURE TEACHER SILVERIO,ID.CONTINUE TO MONITOR THE PT.
--- NOTE | 2018-12-14 15:30 | NUR ---
CITY JAILER NOTES SEEMS PT STABLE AND NO MORE VOMITING NOTED,RESUME G TUBE FEEDING.NO COMPLICATIONS NOTED.
--- NOTE | 2018-12-14 15:30 | NUR ---
RELIGION PROFESSOR NOTES HD HAS STARTED.
[2018-12-14 16:00] VITALS: BP 133/76
[2018-12-14] MEDS: CEFEPIME 1 GM in IV D5W 50 ML IV SCH (17:09)
[2018-12-14] MEDS: FLUCONAZOLE (100 MG) 100 MG TABLET PO SCH (17:30)
--- NOTE | 2018-12-14 18:12 | NUR ---
RT NOTE: PATIENT RECEIVED TRACHED ON PB 840 VENT. SUCTIONED AND LAVAGED MODERATE AMOUNT OF THICK DWYER SECRETIONS. ALARMS VERIFIED AND AUDIBLE. VENT PLUGGED INTO RED OUTLET. AMBU BAG AT [facility].
--- NOTE | 2018-12-14 18:48 | NUR ---
DISCOTHEQUE DANCER CLOSING NOTES PT IS LYING ON BED.ON TELE HR IS 98 WITH SR.NO SOB ABD ACUTE DISTRESS NOTED.VENT DEPEND.ON G TUBE FEEDING NEPRO @5ML/HR.NO VOMITING NOTED.NO SIGNIFICANT CHANGES NOTED IN THE SHIFT.ALL THE DUE MEDS AR GIVEN.ENDORSED TO INVENTORY CONTROL SPECIALIST RN FOR MARKELL.
[2018-12-14 20:00] VITALS: BP 126/75
--- NOTE | 2018-12-14 20:00 | NUR ---
TELE/RN NOTES: RECEIVED PT. IN BED W/ HOB ELEVATED. PT. IS OBTUNDED W/ EYES OPEN. DOES NOT TRACK. NO FACIAL GRIMACES OR MOANING NOTED. ON MECH. VENT TOLERATING WELL. GTF ON AT 5ML/HR DUE TO PT. HAD EMESIS X 1 IN DAY SHIFT. PT. HAS 22 G ON RH PATENT AND INTACT W/ NO S/S OF INFECTION/INFILTRATION NOTED. PT. SAVI. ARMS W/ PITTING EDEMA + 3 NOTED. PT. HAS RIGHT IJ ERNESTO CATH FOR DIALYSIS. LAST DIALYSIS ON 26 W/ NO FLUIDS TAKEN OUT. LANTUS HELD DUE TO PT. HAS ONLY GTF OF 5ML/HR SINCE ABOUT 4 PM. PT. BS CHECK . APPLE JUICE W/ SUGAR GIVEN. BS RECHECKED IN 20 MIN. / . NO RESIDUAL NOTED. INCREASED FEEDING TO 10 ML/HR. NOTED PT. W/ EMESIS AT ABOUT 0045 AM. FEEDING HELD. STARLA. REGLAN GIVEN. FAMILY AT BEDSIDE. WILL CONTINUE TO MONITOR.
[2018-12-14] MEDS: FENOFIBRATE NANOCRYS (145 MG) 145 MG TABLET GT SCH (21:56)
[2018-12-15] VITALS: BP 134/71
[2018-12-15] MEDS: METOCLOPRAMIDE HCL 10 MG/2 ML VIAL IV SCH ×4 (00:09→17:18)
[2018-12-15] MEDS: BLOOD SUGAR DIAGNOSTIC 1 EACH STRIP IN SCH ×4 (00:09→17:28)
[2018-12-15] MEDS: POLYVINYL ALCOHOL 15 ML BOTTLE EACHEYE SCH ×4 (00:10→17:28)
[2018-12-15 04:00] VITALS: BP 123/70
[2018-12-15] MEDS: METRONIDAZOLE 500 MG TABLET PO SCH ×3 (05:41→21:51)
[2018-12-15 07:25] LABS: BASOPHILS % (AUTO) 0.1 % (0.0-2.0); EOSINOPHILS % (AUTO) 5.6 % (0.0-6.0); HEMATOCRIT 26 % (39-51); HEMOGLOBIN 8.5 g/dL (13.5-17.5); LYMPHOCYTES # (AUTO) 1.8 /CMM (0.8-4.8); LYMPHOCYTES % (AUTO) 12.9 % (20.0-44.0); MEAN CORPUSCULAR HGB CONC 33 g/dl (31.0-36.0); MEAN CORPUSCULAR VOLUME 95 fL (80-96); MONOCYTES % (AUTO) 6.8 % (2.0-12.0); NEUTROPHILS # (AUTO) 10.5 /CMM (1.8-8.9); NEUTROPHILS % (AUTO) 74.6 % (43.0-81.0); PLATELET COUNT (AUTO) 304 /CMM (150-450); WHITE BLOOD COUNT (AUTO) 14.1 K/uL (4.3-11.0)
--- NOTE | 2018-12-15 07:30 | NUR ---
RN NOTES RECEIVED PATIENT IN BED, HOB ELEVATED AT 30-45 DEGREE, OPENS EYES SPONTANEOUSLY BUT UNABLE TO TRACK, PATIENT NONVERBAL, DEPENDENT TO TO VENT, TRACH ON MID LINE POSITION. TOLERATING CURRENT VENT SETTING. NO SOB NOTED AT THIS TIME. SUCTIONED FOR AIRWAY PATENCY- SECRETION WHITISH TO YELLOWISH THIN IN CONSISTENCY. CONTROLLED A FIB ON THE MONITOR HR 98, PATIENT AFEBRILE AT 99.2. COOLING BLANKET ON. ERNESTO CATHETER ON THE RIJ: INTACT AND IN PLACE, DRESSING C/D/I AND R HAND G 22: IN PLACE AND INTACT , DRESSING C/D/I. GT FEEDING OF NEPRO RUNNING AT 5CC/HR AT THIS TIME DUE TO REPOSRT FROM ELECTRONIC SECURITY SPECIALIST PATIENT UNABLE TO TOLERATE FEEDING. GT PLACEMENT CONFIRMED THROUGHT AUSCULTATION AND ASPIRATING GASTRIC RESIDUAL, NO RESIDUAL TAKEN AT THIS TIME. ASPIRATION AND SAFETY MEASURES OBSERVED AND MAINTAIN IN PLACE. BED LOW AND LOCKED POSITION. ISOLATION PRECAUTION IMPLEMENTED. CALL LIGHT PLACED WITHIN REACH. WILL CONTINUE TO MONITOR PATIENT CLOSELY
--- NOTE | 2018-12-15 07:34 | NUR ---
RN/TELE NOTES: REPORT GIVEN TO NEXT SHIFT NURSE FOR MARKELL.
[2018-12-15 07:45] LABS: CALCIUM, SERUM 8.2 mg/dL (8.5-10.1); CREATININE 2.8 mg/dL (0.6-1.3); POTASSIUM 3.1 mmol/L (3.5-5.1)
[2018-12-15 08:00] VITALS: BP 129/84
[2018-12-15] MEDS: LACTOBACILLUS RHAMNOSUS GG 1 EACH CAP.SPRINK GT SCH ×2 (09:12→17:18)
[2018-12-15] MEDS: SUCRALFATE 1 G/10 ML UDC GT SCH ×4 (09:12→21:50)
[2018-12-15] MEDS: METOPROLOL TARTRATE 50 MG TABLET GT SCH ×2 (09:13→21:52)
[2018-12-15] MEDS: VIT B CMPLX 3/FA/VIT C/BIOTIN 1 TAB TABLET GT SCH (09:13)
[2018-12-15] MEDS: SULFAMETH/TRIMETH 800/160 MG 1 UDTAB TABLET PO SCH ×2 (09:13→21:51)
[2018-12-15] MEDS: ZINC SULFATE 220 MG CAPSULE GT SCH (09:13)
[2018-12-15] MEDS: PANTOPRAZOLE 40 MG/PACK PACK GT SCH (09:14)
[2018-12-15] MEDS: HYDROCODONE/APAP 5/325MG 1 EACH TABLET GT SCH (09:14)
[2018-12-15] MEDS: PROSOURCE / PROSTAT (PYXIS) 30 ML UDC GT SCH (09:15)
[2018-12-15] MEDS: ASCORBIC ACID 500 MG TABLET GT SCH (09:15)
[2018-12-15] MEDS: DAKINS QUARTER STRENGTH (0.125%) 480 ML BOTTLE TOP SCH ×2 (09:30→17:20)
[2018-12-15] MEDS: INSULIN GLARGINE, 100 UNIT/ML CARTRIDGE SQ SCH ×2 (09:34→22:04)
[2018-12-15] MEDS: POTASSIUM CL. PREMIX PERIPHER. 50 ML IV SCH ×6 (11:09→21:50)
[2018-12-15 12:00] VITALS: BP 127/69
--- NOTE | 2018-12-15 14:00 | NUR ---
RN NOTES PATIENT VOMITTED AT THIS TIME. 50 CC OF GASTRIC RESIDUAL TAKEN. FEEDING HELD AT THIS TIME. WILL RECHECK AND RESUME FEEDING THEN
[2018-12-15 16:00] VITALS: BP 158/64
[2018-12-15] MEDS: CEFEPIME 1 GM in IV D5W 50 ML IV SCH (18:21)
[2018-12-15] MEDS: FLUCONAZOLE (100 MG) 100 MG TABLET PO SCH (18:23)
--- NOTE | 2018-12-15 18:45 | NUR ---
RN NOTES OBTAINED ORDER FOR MIDLINE INSERTION DUE TO DIFFICULTY OF INSERTING IV PERIPHERALLY. NURSE AND CHATGE NURSE TRIED 3 TIMES IN TOTAL TO NO AVAIL.
[2018-12-15] MEDS ORDERED: IV NS 0.9% 250 ML BAG IV PRN (19:00)
[2018-12-15] MEDS ORDERED: IV NS 0.9% 250 ML IV PRN (19:00)
--- NOTE | 2018-12-15 19:24 | NUR ---
SAW BOSS NOTE REPORT GIVEN BEDSIDE. PATIENT IN BED NONVERBAL SPONTANEOUS EYE OPENING. NO S/S OF DISTRESS. RESIDUAL CHECKED MINIMAL LESS THAN 10 CC. LAST BAG OF POTASSIUM ENDORSED. WILL ADMINISTER. PATIENT SR ON THE MONITOR. FLACC SCALE 0. PATIENT NOTICED TO HAVE GENERALIZED EDEMA. PATIENT SATURATION 96%. RN WILL CONTINUE TO MONITOR PATIENT. PATIENT ON RX VENT SETTINGS TOLERATING WELL.
--- NOTE | 2018-12-15 19:24 | NUR ---
RN NOTES ENDORSED FOR CONTINUITY OF CARE. NO ACUTE CHANGES FOR THE ENTIRE SHIFT. GTF AT 10CC/HR. ALL NURSING NEEDS ATTENDED AND MET. ENDORSED ADMINISTRATION OF LAST BAG OF POTASSIUM TO INCOMING NURSE. ASPIRATION AND SAFETY MEASURES IN PLACE AT ALL TIMES. ISOLATION PRECAUTION IMPLEMENTED AT ALL TIMES CALL LIGHT WITHIN REACH
[2018-12-15 20:00] VITALS: BP 120/70
[2018-12-15] MEDS: FENOFIBRATE NANOCRYS (145 MG) 145 MG TABLET GT SCH (21:51)
[2018-12-16] VITALS: BP 102/72
[2018-12-16] MEDS: METOCLOPRAMIDE HCL 10 MG/2 ML VIAL IV SCH ×4 (00:34→17:15)
[2018-12-16] MEDS: BLOOD SUGAR DIAGNOSTIC 1 EACH STRIP IN SCH ×4 (00:34→17:15)
[2018-12-16] MEDS: POLYVINYL ALCOHOL 15 ML BOTTLE EACHEYE SCH ×4 (00:35→17:15)
--- NOTE | 2018-12-16 02:25 | NUR ---
DRAPERY SEWER HAND NOTE PATIENT BATHED A TURNED FOR COMFORT. PATIENT SUCTIONED AND GIVEN YESICA CARE. WOUND DRESSING CHANGED.
[2018-12-16 04:00] VITALS: BP 112/61
[2018-12-16] MEDS: METRONIDAZOLE 500 MG TABLET PO SCH ×3 (05:03→20:38)
[2018-12-16] MEDS: SUCRALFATE 1 G/10 ML UDC GT SCH ×4 (06:41→21:24)
[2018-12-16 06:45] LABS: BASOPHILS % (AUTO) 0.3 % (0.0-2.0); EOSINOPHILS % (AUTO) 6.5 % (0.0-6.0); HEMATOCRIT 22 % (39-51); HEMOGLOBIN 7.2 g/dL (13.5-17.5); LYMPHOCYTES # (AUTO) 1.2 /CMM (0.8-4.8); LYMPHOCYTES % (AUTO) 8.4 % (20.0-44.0); MEAN CORPUSCULAR HGB CONC 33 g/dl (31.0-36.0); MEAN CORPUSCULAR VOLUME 95 fL (80-96); MONOCYTES # (AUTO) 0.8 /CMM (0.1-1.30); MONOCYTES % (AUTO) 5.7 % (2.0-12.0); NEUTROPHILS # (AUTO) 11.6 /CMM (1.8-8.9); NEUTROPHILS % (AUTO) 79.1 % (43.0-81.0); PLATELET COUNT (AUTO) 277 /CMM (150-450); RED BLOOD CELL COUNT(AUTO) 2.35 MIL/uL (4.5-6.0); WHITE BLOOD COUNT (AUTO) 14.7 K/uL (4.3-11.0)
[2018-12-16 06:54] LABS: CALCIUM, SERUM 8.2 mg/dL (8.5-10.1); CREATININE 3.2 mg/dL (0.6-1.3)
--- NOTE | 2018-12-16 07:05 | NUR ---
CAREER PLACEMENT SPECIALIST NOTE PT IS LYING ON BED.ON TELE HR IS 87 WITH SR.NO SOB/ ACUTE DISTRESS NOTED.VENT DEPEND.ON G TUBE FEEDING NEPRO @10ML/HR.PT HASE PRODUCTIVE MUCOUS COUGH.NO SIGNIFICANT CHANGES NOTED IN THE SHIFT.ALL THE DUE MEDS AR GIVEN.ENDORSED TO HOTBED LEVER OPERATOR RN FOR MARKELL.
[2018-12-16 08:00] VITALS: BP 116/65
--- NOTE | 2018-12-16 08:00 | NUR ---
TELE1/RN AM SHIFT INITIAL NOTES RECEIVED PT ASLEEP IN BED, PT IS OBTUNDED, OPEN EYES SPONTANEOUSLY, NO GRIMACING OR ACUTE CHANGE OF CONDITION NOTED. ON VENTILATOR WITH RATES SET PRESCRIBED, SATURATING @ 100%. LUNG SOUNDS CLEAR. RESPIRATIONS EVEN AND UNLABORED. SUCTIONED FOR AIRWAY CLEARANCE. ON TELE MONITORING, SINUS RHYTHM, HR 92. MIDLINE INTACT, SL. IJ DIALYSIS ACCESS, DRESSING INTACT, NO S/S OF INFECTION. ON GOING GTF @ 10CC/HR, NO GASTRIC RESIDUAL NOTED, FLUSHED, PATENT. GTF RATE INCREASED TO 15CC/HR. PT NOTED WITH GENERALIZED EDEMA. PT IS COMFORTABLE, SCHEDULED AM MEDS TO BE GIVEN, PT EXPECTED TO HAVE DIALYSIS TREATMENT TODAY. CL WITHIN REACHED, SAFETY MAINTAINED AND ISOLATION OBSERVED. ON GOING MONITORING.
[2018-12-16] MEDS: SULFAMETH/TRIMETH 800/160 MG 1 UDTAB TABLET PO SCH ×2 (08:52→20:38)
[2018-12-16] MEDS: ASCORBIC ACID 500 MG TABLET GT SCH (08:52)
[2018-12-16] MEDS: PANTOPRAZOLE 40 MG/PACK PACK GT SCH (08:52)
[2018-12-16] MEDS: LACTOBACILLUS RHAMNOSUS GG 1 EACH CAP.SPRINK GT SCH ×2 (08:52→16:24)
[2018-12-16] MEDS: METOPROLOL TARTRATE 50 MG TABLET GT SCH ×2 (08:53→20:38)
[2018-12-16] MEDS: PROSOURCE / PROSTAT (PYXIS) 30 ML UDC GT SCH (08:54)
[2018-12-16] MEDS: HYDROCODONE/APAP 5/325MG 1 EACH TABLET GT SCH (08:54)
[2018-12-16] MEDS: VIT B CMPLX 3/FA/VIT C/BIOTIN 1 TAB TABLET GT SCH (08:54)
[2018-12-16] MEDS: ZINC SULFATE 220 MG CAPSULE GT SCH (08:54)
[2018-12-16] MEDS: INSULIN GLARGINE, 100 UNIT/ML CARTRIDGE SQ SCH ×2 (08:56→20:39)
[2018-12-16] MEDS: DAKINS QUARTER STRENGTH (0.125%) 480 ML BOTTLE TOP SCH ×2 (08:57→16:25)
--- NOTE | 2018-12-16 10:30 | NUR ---
TELE1/ENGAGEMENT EXECUTIVE TREATMENT HD TREATMENT STARTED. BP 123/55, HR 83. ON GOING MONITORING.
--- NOTE | 2018-12-16 11:19 | NUR ---
RT PATIENT RECEIVED TRACHED WITH SHILEY #8 CUFFED ON [facility] VENT WITH SETTINGS PER MD ORDER. AIRSET MOLDER DONE. VENT PLUGGED INTO RED OUTLET. AMBU BAG AT HEAD OF BED. VENT ALARMS ON AND FUNCTIONING PROPERLY. SUCTIONED SMALL AMOUNTS OF THICK, PALE YELLOW SECRETIONS. NO SIGNS OF DISTRESS NOTED AT THIS TIME. WILL CONTINUE TO MONITOR THE PATIENT FOR ANY CHANGE OF CONDITION. Addendum: 12/16/18 at 1123 by MAURICE ROCK RT Amended: Links added.
[2018-12-16 12:00] VITALS: BP 131/59
--- NOTE | 2018-12-16 12:30 | NUR ---
TELE1/RN HD COMPLETED HD TREATMENT COMPLETED, BP 126/60, HR 93. NO FLUID REMOVED. PT TOLERATED TX. MONITORING.
[2018-12-16] MEDS: ONDANSETRON HCL/PF 4 MG/2 ML VIAL IVP PRN (12:51)
[2018-12-16 16:00] VITALS: BP 130/59
--- NOTE | 2018-12-16 17:00 | NUR ---
TELE1/RN AFTERNOON ROUNDS NO ACUTE CHANGE OF CONDITION, BS CHECKED, RESULT 54, NO S/S OF HYPOGLYCEMIA, PT GIVEN D50 PER SLIDING SCALE, WILL RE-CHECKED GLUCOSE, CHARGE NURSE MADE AWARE.
[2018-12-16] MEDS: CEFEPIME 1 GM in IV D5W 50 ML IV SCH (17:14)
[2018-12-16] MEDS: FLUCONAZOLE (100 MG) 100 MG TABLET PO SCH (17:15)
[2018-12-16] MEDS: DEXTROSE 50%-WATER 50 ML DISP.SYRIN IV PRN (17:21)
[2018-12-16] MEDS: ACETAMINOPHEN 325 MG TABLET PO PRN (18:12)
--- NOTE | 2018-12-16 19:25 | NUR ---
TELE1/RN AM SHIFT END NOTES NO ACUTE CHANGE OF CONDITION NOTED DURING THE SHIFT. ALL NEEDS MET. PT ENDORSED TO PM NURSE TO CONTINUE CARE, ALSO ENDORSED TO PLACE PT ON NPO EXCEPT MEDS AND COMPLETE PRE-OP CHECK LIST FOR HD ACCESS PLACEMENT IN AM. CL WITHIN REACHED, SAFETY MAINTAINED AND ISOLATION OBSERVED.
--- NOTE | 2018-12-16 19:26 | NUR ---
TELE NIGHT RN NOTES REPORT GIVEN BEDSIDE. RECEIVED PT ASLEEP IN BED, PT IS OBTUNDED, OPEN EYES SPONTANEOUSLY, NO GRIMACING OR ACUTE CHANGE OF CONDITION NOTED, FLACC 0. ON VENTILATOR WITH RATES SET PRESCRIBED, SATURATING @ 100%. RESPIRATIONS EVEN AND UNLABORED. SUCTIONED FOR AIRWAY CLEARANCE AND ORAL CARE GIVEN. ON TELE MONITORING, SINUS RHYTHM, HR 87. MIDLINE INTACT, SL. IJ DIALYSIS ACCESS, DRESSING INTACT, NO S/S OF INFECTION. ON GOING GTF @ 25CC/HR, NO GASTRIC RESIDUAL NOTED, FLUSHED, PATENT NO S/S OF INTOLERANCE. SAFETY PRECAUTIONS IN PLACE. RN WILL CONTINUE TO MONITOR
[2018-12-16 20:00] VITALS: BP 146/67
[2018-12-16] MEDS: FENOFIBRATE NANOCRYS (145 MG) 145 MG TABLET GT SCH (21:24)
--- NOTE | 2018-12-16 22:00 | NUR ---
POLICEWOMAN NOTE PATEINT TURNED AND REPOSITIONED FOR COMFORT.
[2018-12-17] VITALS (7 sets, daily range): BP systolic 100–163; BP diastolic 47–67
[2018-12-17] MEDS: METOCLOPRAMIDE HCL 10 MG/2 ML VIAL IV SCH ×5 (00:35→23:52)
[2018-12-17] MEDS: BLOOD SUGAR DIAGNOSTIC 1 EACH STRIP IN SCH ×4 (00:35→18:35)
[2018-12-17] MEDS: POLYVINYL ALCOHOL 15 ML BOTTLE EACHEYE SCH ×4 (00:36→18:35)
--- NOTE | 2018-12-17 03:09 | NUR ---
CROZE CUTTER HELPER NOTE PATIENT HAD BOWEL MOVEMENT, PATIENT GIVEN BATH AND CHANGED, WOUND CARE GIVEN.
[2018-12-17] MEDS: METRONIDAZOLE 500 MG TABLET PO SCH ×3 (05:05→20:52)
[2018-12-17] MEDS: DEXTROSE 50%-WATER 50 ML DISP.SYRIN IV PRN ×2 (05:21→13:58)
--- NOTE | 2018-12-17 06:21 | NUR ---
TEACHER EMOTIONALLY IMPAIRED NOTE PATIENT BS 55 AT 0521. DEXTROSE GIVEN PER MD ORDER. REASSESSED AT 0621 BS UP TO 103. PATIENT ASYMPTOMATIC AND STABLE NO S/S OF HYPOGLYCEMIA.
[2018-12-17 06:50] LABS: CALCIUM, SERUM 7.5 mg/dL (8.5-10.1); CREATININE 2.6 mg/dL (0.6-1.3); POTASSIUM 3.1 mmol/L (3.5-5.1)
[2018-12-17] MEDS: SUCRALFATE 1 G/10 ML UDC GT SCH ×4 (07:00→22:05)
--- NOTE | 2018-12-17 07:00 | NUR ---
COLLEGE TUTOR OPENING NOTES RECEIVED PT IN BED, HOB ELEVATED TO DEG. ON VENT WITH SETTINGS MD ORDERED. PT TOLERATING WELL. SUCTIONED, WITH THIN CLEAR SECRETIONS. AMBU BAG AND TRACH AT BEDSIDE. PT OPENS EYES SPONTANEOUSLY. NPO EXCEPT MEDS FOR PERMACATH PLACEMENT TODAY. ON TELE SR. 30 CC RESIDUAL ON ASPIRATION OF GTUBE. MOUTH CARE DONE. BED IN LOCKED/LOWEST POSITION. CALL LIGHT IN REACH. WILL CONT TO MONITOR.
--- NOTE | 2018-12-17 07:29 | NUR ---
CRANBERRY FARM SUPERVISOR NOTE NO FURTHER CHANGES THROUGHOUT THE NIGHT. PATIETNT STABLE NO S/S OF DISTRESS. ENDORSED POC TO AM FOR MARKELL. PATIENT SR HR 99 ON THE MONITOR.
[2018-12-17 08:20] LABS: BASOPHILS # (AUTO) 0.1 /CMM (0.0-0.2); BASOPHILS % (AUTO) 0.7 % (0.0-2.0); EOSINOPHILS % (AUTO) 8.7 % (0.0-6.0); HEMATOCRIT 24 % (39-51); LYMPHOCYTES % (AUTO) 13.9 % (20.0-44.0); MEAN CORPUSCULAR HGB CONC 33 g/dl (31.0-36.0); MEAN CORPUSCULAR VOLUME 95 fL (80-96); MONOCYTES # (AUTO) 1.1 /CMM (0.1-1.30); MONOCYTES % (AUTO) 7.7 % (2.0-12.0); NEUTROPHILS # (AUTO) 9.9 /CMM (1.8-8.9); PLATELET COUNT (AUTO) 264 /CMM (150-450); RED BLOOD CELL COUNT(AUTO) 2.57 MIL/uL (4.5-6.0); WHITE BLOOD COUNT (AUTO) 14.3 K/uL (4.3-11.0)
[2018-12-17] MEDS: INSULIN GLARGINE, 100 UNIT/ML CARTRIDGE SQ SCH ×2 (09:00→21:00)
[2018-12-17] MEDS: PANTOPRAZOLE 40 MG/PACK PACK GT SCH (09:09)
[2018-12-17] MEDS: SULFAMETH/TRIMETH 800/160 MG 1 UDTAB TABLET PO SCH ×2 (09:09→20:52)
[2018-12-17] MEDS: METOPROLOL TARTRATE 50 MG TABLET GT SCH ×2 (09:09→20:52)
[2018-12-17] MEDS: HYDROCODONE/APAP 5/325MG 1 EACH TABLET GT SCH (09:09)
[2018-12-17] MEDS: ZINC SULFATE 220 MG CAPSULE GT SCH (09:09)
[2018-12-17] MEDS: ASCORBIC ACID 500 MG TABLET GT SCH (09:10)
[2018-12-17] MEDS: LACTOBACILLUS RHAMNOSUS GG 1 EACH CAP.SPRINK GT SCH ×2 (09:10→18:36)
[2018-12-17] MEDS: PROSOURCE / PROSTAT (PYXIS) 30 ML UDC GT SCH (09:10)
[2018-12-17] MEDS: VIT B CMPLX 3/FA/VIT C/BIOTIN 1 TAB TABLET GT SCH (09:10)
[2018-12-17] MEDS: DAKINS QUARTER STRENGTH (0.125%) 480 ML BOTTLE TOP SCH ×2 (09:42→17:00)
[2018-12-17] MEDS ORDERED: MIDAZOLAM HCL 2 MG/2ML VIAL ONE (11:53)
--- NOTE | 2018-12-17 11:57 | NUR ---
RADIOLOGY INTERVENTIONAL PHYSICIAN NOTES PT TRANSPORTED TO OR WITH RT/OR NURSES ACCOMPANYING. ALL CONSENT FORMS SIGNED. WILL RESUME CARE ONCE PT RETURNS TO FLOOR.
[2018-12-17] MEDS ORDERED: LIDOCAINE HCL/PF 1% 30 ML SDV ONE (12:04)
[2018-12-17] MEDS ORDERED: HEPARIN SODIUM, PORCINE 1,000 UNIT/ML VIAL ONE (12:04)
--- NOTE | 2018-12-17 13:25 | NUR ---
BENEFITS ADVISOR NOTES POST OP NURSE RELEASED PT TO MY CARE. PT STABLE ON VENT. VS WNL. WILL RESUME PRE-OP ORDERS ORDERED.
[2018-12-17] MEDS: NEPRO 1,000 ML BOTTLE GT PRN (14:10)
[2018-12-17] MEDS: CEFEPIME 1 GM in IV D5W 50 ML IV SCH (18:35)
--- NOTE | 2018-12-17 18:55 | NUR ---
CUSTOMER MANAGER END OF SHIFT NOTES PT RESTING IN BED, TOLERATING GTF NO EPISODES OF VOMITING NOTED THROUGHOUT SHIFT. PERMACATH PLACED RU CHEST WALL TODAY. NO S/SX OF DISTRESS NOTED. WILL ENDORSE TO PM SHIFT FOR MARKELL.
--- NOTE | 2018-12-17 20:00 | NUR ---
EDUCATION SUPERVISOR NOTES RECEIVED PTS IN BED REMAINS ON VENTILATOR DEPENDENT , ON TELE SR ON THE MONITOR , NO SOB NO DISTRESS NOTED , SATING 97-98% HOB ELEVATED AT ALL TIMES , SUCTION SECRETION DONE AND PRN .V/S STABLE AFEBRILE , ALL NEEDS ATTENDED TOO . PTS ON GT NEPHRO AT 25CC/HR WELL TOLERATED BY PTS , NO RESIDUAL NOTED , TURNED AND REPOSITION Q 2 HRS AND PRN . WILL CONTINUE TO MONITOR. KEPT PTS CLEAN DRY AND COMFORTABLE.
--- NOTE | 2018-12-17 20:00 | NUR ---
RT PATIENT WAS RECEIVED ON CONTINUOUS VENT SUPPORT ON NOTED VENT SETTINGS. PRN WAS SUCTION WAS DONE. ALARMS ARE ON AND AUDIBLE.VENT PLUGGED INTO RED OUTLET.TRACH TUBE PATENT AND SECURED. WILL CONTINUE TO MONITOR PATIENT. Addendum: 12/17/18 at 2005 by ANTONI SANTACRUZ RT Amended: Links added.
--- NOTE | 2018-12-17 21:00 | NUR ---
RN ENDOSCOPY NOTES FAMILY AT BEDSIDE , UPDATED WITH PTS CONDITION , DUE MEDS GIVEN ORDERED ,LANTUS INSULIN NOT GIVEN BLOOD SUGAR IS 101 ,PER ENDORSEMENT FROM MORNING SHIFT PTS HAS EPISODE OF LOW BS , WILL CHECK BLOOD SUGAR AGAIN AT 12MN.
[2018-12-17] MEDS: FENOFIBRATE NANOCRYS (145 MG) 145 MG TABLET GT SCH (22:05)
[2018-12-18] VITALS: BP 143/62
--- NOTE | 2018-12-18 | NUR ---
RECEPTIONIST SECRETARY NOTES BLOOD SUGAR FOR 12MN IS 95MG/DL -NO COVERAGE GIVEN PER SLIDING SCALE. WILL CONTINUE TO MONITOR.
[2018-12-18] MEDS: BLOOD SUGAR DIAGNOSTIC 1 EACH STRIP IN SCH ×5 (00:05→23:40)
[2018-12-18] MEDS: INSULIN ASPART/LISPRO 100 UNIT/ML CARTRIDGE SQ PRN ×3 (00:06→23:52)
[2018-12-18 04:00] VITALS: BP 140/60
[2018-12-18] MEDS: METOCLOPRAMIDE HCL 10 MG/2 ML VIAL IV SCH ×4 (05:47→23:40)
[2018-12-18] MEDS: POLYVINYL ALCOHOL 15 ML BOTTLE EACHEYE SCH ×5 (05:52→23:48)
[2018-12-18] MEDS: METRONIDAZOLE 500 MG TABLET PO SCH ×3 (05:53→21:06)
--- NOTE | 2018-12-18 06:46 | NUR ---
CABINET WORKER NOTES CABINET WORKER NOTES PTS REMAINS IN BED , ON VENTILATOR DEPENDENT, NO SOB NO DISTRESS NOTED ,PTS FOR HD TODAY ,WILL ENDORSE TO RN DAY SHIFT FOR CONTINUITY OF CARE
--- NOTE | 2018-12-18 07:25 | NUR ---
PICKING MACHINE OPERATOR HELPER INITIAL NOTES RECEIVED PT SLEEPING IN BED, BUT EASY TO AROUSE. PT OBTUNDED, OPENS EYES. REMAINS ON VENTILATOR DEPENDENT, VENT SETTING TOLERATING WELL, ON TELE SR ON THE MONITOR, NO SOB NO DISTRESS NOTED, SATING 98% HOB ELEVATED AT ALL TIMES, PTS ON GT NEPHRO AT 25CC/HR, WELL TOLERATED BY PT, NO RESIDUAL NOTED. IV ON R CHEST PERMACATH AND R UA MIDLINE SITE CDI. WILL TURN AND REPOSITION Q2 HRS AND PRN. CALL LIGHT WITHIN REACH. WILL KEEP PT CLEAN DRY AND COMFORTABLE. WILL CONTINUE TO MONITOR PATIENT.
[2018-12-18 08:00] VITALS: BP 116/60
[2018-12-18] MEDS: ERGOCALCIFEROL (VITAMIN D 2) 50,000 UNIT CAPSULE GT SCH (08:14)
[2018-12-18] MEDS: SUCRALFATE 1 G/10 ML UDC GT SCH ×4 (08:14→21:03)
[2018-12-18] MEDS: SULFAMETH/TRIMETH 800/160 MG 1 UDTAB TABLET PO SCH ×2 (09:01→21:06)
[2018-12-18] MEDS: HYDROCODONE/APAP 5/325MG 1 EACH TABLET GT SCH (09:01)
[2018-12-18] MEDS: ZINC SULFATE 220 MG CAPSULE GT SCH (09:02)
[2018-12-18] MEDS: PANTOPRAZOLE 40 MG/PACK PACK GT SCH (09:02)
[2018-12-18] MEDS: LACTOBACILLUS RHAMNOSUS GG 1 EACH CAP.SPRINK GT SCH ×2 (09:02→17:45)
[2018-12-18] MEDS: METOPROLOL TARTRATE 50 MG TABLET GT SCH ×2 (09:02→21:08)
[2018-12-18] MEDS: DAKINS QUARTER STRENGTH (0.125%) 480 ML BOTTLE TOP SCH ×2 (09:03→16:28)
[2018-12-18] MEDS: ASCORBIC ACID 500 MG TABLET GT SCH (09:03)
[2018-12-18] MEDS: VIT B CMPLX 3/FA/VIT C/BIOTIN 1 TAB TABLET GT SCH (09:03)
[2018-12-18] MEDS: PROSOURCE / PROSTAT (PYXIS) 30 ML UDC GT SCH (09:10)
[2018-12-18] MEDS: INSULIN GLARGINE, 100 UNIT/ML CARTRIDGE SQ SCH ×2 (09:11→21:02)
[2018-12-18 12:00] VITALS: BP 132/57
[2018-12-18 16:00] VITALS: BP 118/64
[2018-12-18] MEDS: CEFEPIME 1 GM in IV D5W 50 ML IV SCH (17:50)
--- NOTE | 2018-12-18 19:20 | NUR ---
MACHINE SPREADER CLOSING NOTES PT SLEEPING IN BED, BUT EASY TO AROUSE. PT OBTUNDED, OPENS EYES. REMAINS ON VENTILATOR DEPENDENT, VENT SETTING TOLERATING WELL, ON TELE SR ON THE MONITOR, NO SOB NO DISTRESS NOTED, SATING 98% HOB ELEVATED AT ALL TIMES, PTS ON GT NEPHRO AT 35CC/HR, WELL TOLERATED BY PT, NO RESIDUAL NOTED. IV ON R CHEST PERMACATH AND R UA MIDLINE SITE CDI. TURNED AND REPOSITIONED Q2 HRS AND PRN. CALL LIGHT WITHIN REACH AT ALL TIMES. KEPT PT CLEAN DRY AND COMFORTABLE. NO ACUTE CHANGES THROUGHOUT SHIFT. ALL MD ORDERS ATTENDED. ENDORSED PATIENT TO SENIOR ELECTRICAL DESIGN ENGINEER NURSE FOR MARKELL.
[2018-12-18 20:00] VITALS: BP 131/62
--- NOTE | 2018-12-18 20:00 | NUR ---
RN NOTES PATIENT IS AWAKE, OBTUNDED, TRACH DEPENDENT, VENTILATOR IN GOOD WORKING CONDITION, SPO2 99%, BREATHING IS EVEN, NO SOB, PEG TUBE INFUSING WELL, MET GOAL OF 40 CC/HR, RESIDUAL 20CC, PUT BACK. DIAPER CHANGED, REPOSITIONED FOR COMFORT. WILL CONTINUE TO MONITOR
[2018-12-18] MEDS: FENOFIBRATE NANOCRYS (145 MG) 145 MG TABLET GT SCH (21:06)
[2018-12-18] MEDS: ACETAMINOPHEN 325 MG TABLET PO PRN (23:40)
--- NOTE | 2018-12-18 23:53 | NUR ---
RN NOTES BG 129 MG/DL, NO INSULIN GIVEN
[2018-12-19] VITALS (13 sets, daily range): BP systolic 116–174; BP diastolic 53–88
[2018-12-19] MEDS: NEPRO 1,000 ML BOTTLE GT PRN (01:47)
[2018-12-19] MEDS: METRONIDAZOLE 500 MG TABLET PO SCH ×3 (05:09→21:21)
[2018-12-19] MEDS: METOCLOPRAMIDE HCL 10 MG/2 ML VIAL IV SCH ×3 (05:10→17:45)
[2018-12-19] MEDS: INSULIN ASPART/LISPRO 100 UNIT/ML CARTRIDGE SQ PRN (05:13)
[2018-12-19] MEDS: BLOOD SUGAR DIAGNOSTIC 1 EACH STRIP IN SCH ×3 (05:18→17:31)
[2018-12-19] MEDS: POLYVINYL ALCOHOL 15 ML BOTTLE EACHEYE SCH ×3 (05:19→17:45)
--- NOTE | 2018-12-19 06:20 | NUR ---
RN NOTES PM SHIFT PATIENT IS AWAKE, OBTUNDED, STABLE ON VENTILATOR, NOT IN APPARENT PAIN, NO FACIAL GRIMACING, NO RESTLESSNESS, SR IN THE TELE, GENO MIDLINE SL ONLY, RCW PERMACATH, SECURED WITH DRESSING, ACCUCHECK Q6HRS, PROVIDED GOOD PERINEAL CARE AND WOUND CARE, PER POC, CONTINUE CURRENT ABX, VENT MANAGEMENT, WOUND CARE AND MONITOR H/H
[2018-12-19 07:11] LABS: BASOPHILS # (AUTO) 0.1 /CMM (0.0-0.2); BASOPHILS % (AUTO) 0.7 % (0.0-2.0); EOSINOPHILS % (AUTO) 10.2 % (0.0-6.0); LYMPHOCYTES # (AUTO) 1.6 /CMM (0.8-4.8); LYMPHOCYTES % (AUTO) 11.6 % (20.0-44.0); MEAN CORPUSCULAR HGB CONC 33 g/dl (31.0-36.0); MEAN CORPUSCULAR VOLUME 96 fL (80-96); MONOCYTES # (AUTO) 0.8 /CMM (0.1-1.30); MONOCYTES % (AUTO) 5.7 % (2.0-12.0); NEUTROPHILS # (AUTO) 9.9 /CMM (1.8-8.9); NEUTROPHILS % (AUTO) 71.8 % (43.0-81.0); PLATELET COUNT (AUTO) 231 /CMM (150-450); RED BLOOD CELL COUNT(AUTO) 2.07 MIL/uL (4.5-6.0); WHITE BLOOD COUNT (AUTO) 13.8 K/uL (4.3-11.0)
[2018-12-19 07:22] LABS: CALCIUM, SERUM 7.7 mg/dL (8.5-10.1); CREATININE 2.8 mg/dL (0.6-1.3); POTASSIUM 3.1 mmol/L (3.5-5.1)
--- NOTE | 2018-12-19 07:25 | NUR ---
CLOTHES DRIER REPAIRER INITIAL NOTES PT SLEEPING IN BED, BUT EASY TO AROUSE. PT OBTUNDED, OPENS EYES. REMAINS ON VENTILATOR DEPENDENT, VENT SETTING TOLERATING WELL, ON TELE SR ON THE MONITOR, NO SOB NO DISTRESS NOTED, SATING 100% HOB ELEVATED AT ALL TIMES, PTS ON GT NEPHRO AT 40CC/HR, WELL TOLERATED BY PT. IV ON R CHEST PERMACATH AND R UA MIDLINE SITE CDI. WILL TURN AND REPOSITION Q2 HRS AND PRN. CALL LIGHT WITHIN REACH AT ALL TIMES. WILL KEEP PT CLEAN DRY AND COMFORTABLE. ALL MD ORDERS WILL BE ATTENDED. WILL CONTINUE TO MONITOR PT CLOSELY.
[2018-12-19 07:29] LABS: HEMATOCRIT 20 % (39-51); HEMOGLOBIN 6.5 g/dL (13.5-17.5)
[2018-12-19 08:17] LABS: BAND % (MANUAL) 2 % (0.0-5.0); EOSINOPHILS % (MANUAL) 13 % (0-4); LYMPHOCYTES % (MANUAL) 16 % (16-48); MONOCYTES % (MANUAL) 6 % (0-11.0); MYELOCYTES % 1 % (0-0); NEUTROPHILS % (MANUAL) 62 (42-76)
[2018-12-19] MEDS: SUCRALFATE 1 G/10 ML UDC GT SCH ×4 (08:25→21:21)
--- NOTE | 2018-12-19 09:02 | NUR ---
PRECIOUS RN, HGB 6.5 HCT 20, Left message to re; hgb 6.5, hct 20 thru pager system waiting for returing call back
[2018-12-19] MEDS: DAKINS QUARTER STRENGTH (0.125%) 480 ML BOTTLE TOP SCH ×2 (09:44→17:45)
[2018-12-19] MEDS: PROSOURCE / PROSTAT (PYXIS) 30 ML UDC GT SCH (09:45)
[2018-12-19] MEDS: ZINC SULFATE 220 MG CAPSULE GT SCH (09:50)
[2018-12-19] MEDS: VIT B CMPLX 3/FA/VIT C/BIOTIN 1 TAB TABLET GT SCH (09:50)
[2018-12-19] MEDS: PANTOPRAZOLE 40 MG/PACK PACK GT SCH (09:50)
[2018-12-19] MEDS: SULFAMETH/TRIMETH 800/160 MG 1 UDTAB TABLET PO SCH ×2 (09:50→21:21)
[2018-12-19] MEDS: LACTOBACILLUS RHAMNOSUS GG 1 EACH CAP.SPRINK GT SCH ×2 (09:51→17:45)
[2018-12-19] MEDS: ASCORBIC ACID 500 MG TABLET GT SCH (09:51)
[2018-12-19] MEDS: METOPROLOL TARTRATE 50 MG TABLET GT SCH ×2 (09:51→21:21)
[2018-12-19] MEDS: HYDROCODONE/APAP 5/325MG 1 EACH TABLET GT SCH (09:51)
[2018-12-19] MEDS: INSULIN GLARGINE, 100 UNIT/ML CARTRIDGE SQ SCH ×2 (09:56→21:00)
[2018-12-19] MEDS: ACETAMINOPHEN 325 MG TABLET PO PRN (11:13)
--- NOTE | 2018-12-19 12:15 | NUR ---
AREA RELIEF PILOT NOTES BLOOD TRANSFUSION INITIATED. WILL CONTINUE TO MONITOR PATIENT CLOSELY.
--- NOTE | 2018-12-19 13:40 | NUR ---
LIFE MANAGER NOTES CONTACTED PHARMACY FOR PATIENT'S INSULIN PRN. AWAITING RESPONSE.
--- NOTE | 2018-12-19 14:30 | NUR ---
MACHINE LEARNING INTERN NOTES PATIENT VOMITED. HOLDING GTUBE FEEDING FOR NOW. NO RESIDUAL NOTED ON GTUBE. WILL CONTINUE TO MONITOR PT.
--- NOTE | 2018-12-19 16:20 | NUR ---
HUMAN RESOURCES OPERATIONS MANAGER NOTES CONTACTED PHARMACY AGAIN FOR PATIENT'S INSULIN PRN. AWAITING RESPONSE.
--- NOTE | 2018-12-19 16:54 | NUR ---
RT RECD PT TRACHED INTACT AND SECURED ON MECH VENT LEIDA ORDERED SETTINGS ALARMS ON AND AUDUBLE BAG AND MASK AT HOB SX THICK YELLOW SECRETIONS NO RESP DISTRESS THROUGHOUT SHIFT WILL CONT TO MONITOR
[2018-12-19] MEDS: CEFEPIME 1 GM in IV D5W 50 ML IV SCH (17:55)
[2018-12-19] MEDS ORDERED: POTASSIUM CHLORIDE 20 MEQ POWDER PACKET GT ONE (18:30)
--- NOTE | 2018-12-19 19:25 | NUR ---
RIB CLOTH KNITTER CLOSING NOTES PT SLEEPING IN BED, BUT EASY TO AROUSE. PT OBTUNDED. FAMILY AT BEDSIDE. REMAINS ON VENTILATOR DEPENDENT, VENT SETTING TOLERATING WELL, ON TELE SR ON THE MONITOR, NO SOB NO DISTRESS NOTED, SATING 100% HOB ELEVATED AT ALL TIMES, PTS ON GT NEPHRO AT 5CC/HR, PER FAMILY REQUEST. IV ON R CHEST PERMACATH AND R UA MIDLINE SITE CDI. TURNED AND REPOSITIONED Q2 HRS AND PRN. CALL LIGHT WITHIN REACH AT ALL TIMES. KEPT PT CLEAN DRY AND COMFORTABLE. ALL MD ORDERS AND PT NEEDS ATTENDED. ENDORSED TO SLIP PRESSER NURSE FOR MARKELL.
--- NOTE | 2018-12-19 19:30 | NUR ---
RECEIVED PATIENT IN BED AWAKE; OBTUNDED. NO ACUTE DISTRESS NOTED. NO SIGNS OF PAIN NOTED. TELE READING SR HR 83. TRACH INTACT. VENT SETTING ORDERED. GT PATENT, INTACT; IN PLACE WHEN AUSCULTATED. GTF ONGOING. HOB RAISED. CONTACT ISOLATION AND DROPLET PRECAUTION MAINTAINED. ON LOW BED WITH BILATERAL UPPER SIDE RAILS UP. CALL GALICIA WITHIN EASY REACH. FAMILY AT BEDSIDE.
[2018-12-19] MEDS: FENOFIBRATE NANOCRYS (145 MG) 145 MG TABLET GT SCH (21:21)
--- NOTE | 2018-12-19 21:23 | NUR ---
HS LANTUS HELD. FEEDING STOPPED DUE TO PATIENT'S ONE EPISODE OF VOMITING. PATIENT VOMITED BEIGE COLORED LIQUID. WILL CONTINUE TO MONITOR.
[2018-12-20] VITALS: BP 112/53
[2018-12-20] MEDS: METOCLOPRAMIDE HCL 10 MG/2 ML VIAL IV SCH ×4 (00:44→17:48)
[2018-12-20] MEDS: BLOOD SUGAR DIAGNOSTIC 1 EACH STRIP IN SCH ×4 (00:51→18:06)
[2018-12-20] MEDS: POLYVINYL ALCOHOL 15 ML BOTTLE EACHEYE SCH ×4 (00:51→17:49)
[2018-12-20 04:00] VITALS: BP 101/57
[2018-12-20] MEDS: METRONIDAZOLE 500 MG TABLET PO SCH ×3 (05:25→21:43)
[2018-12-20] MEDS: NEPRO 1,000 ML BOTTLE GT PRN (05:57)
--- NOTE | 2018-12-20 06:00 | NUR ---
PATIENT ASLEEP, EASILY AROUSABLE. RESPIRATIONS EVEN. NO SIGNS OF PAIN NOTED. DUE MEDS GIVEN WITH NO ASE NOTED. NEEDS ATTENDED. KEPT CLEAN, DRY, AND COMFORTABLE. REPOSITIONED AND TURNED Q 2 HOURS. SAFETY PRECAUTIONS AND COMFORT MEASURES IN PLACE. WILL GIVE REPORT TO DAY SHIFT FOR CONTINUITY OF CARE.
[2018-12-20 07:22] LABS: BASOPHILS # (AUTO) 0.1 /CMM (0.0-0.2); BASOPHILS % (AUTO) 0.4 % (0.0-2.0); EOSINOPHILS % (AUTO) 9.9 % (0.0-6.0); HEMATOCRIT 25 % (39-51); HEMOGLOBIN 8.1 g/dL (13.5-17.5); LYMPHOCYTES # (AUTO) 2.2 /CMM (0.8-4.8); LYMPHOCYTES % (AUTO) 14.6 % (20.0-44.0); MEAN CORPUSCULAR HGB CONC 32 g/dl (31.0-36.0); MEAN CORPUSCULAR VOLUME 96 fL (80-96); MONOCYTES # (AUTO) 1.1 /CMM (0.1-1.30); MONOCYTES % (AUTO) 7.3 % (2.0-12.0); NEUTROPHILS # (AUTO) 10.3 /CMM (1.8-8.9); NEUTROPHILS % (AUTO) 67.8 % (43.0-81.0); PLATELET COUNT (AUTO) 213 /CMM (150-450); RED BLOOD CELL COUNT(AUTO) 2.62 MIL/uL (4.5-6.0); WHITE BLOOD COUNT (AUTO) 15.3 K/uL (4.3-11.0)
[2018-12-20 07:30] LABS: CALCIUM, SERUM 8.2 mg/dL (8.5-10.1); CREATININE 3.1 mg/dL (0.6-1.3); PHOSPHORUS 1.2 mg/dL (2.5-4.9); POTASSIUM 3.4 mmol/L (3.5-5.1)
--- NOTE | 2018-12-20 07:43 | NUR ---
CHILD THERAPIST OPENING NOTES RECEIVED BEDSIDE REPORT. PATIENT OBTUNDED NON RESPONSIVE ON VENT TOLERATING VENT SETTINGS ORDERED. NO ACUTE PAIN NOTED. SINUS RHYTHM ON TELE MONITOR 80'S GTF RUNNING AT 20ML/HR TOLERATING WELL AT THIS TIME NO N/V/D. IVF RUNNING IN GENO MIDLINE #18 GAUGE ECW PERMA CATH LAST HD 12/18. ASPIRATION AND SAFETY PRECAUTIONS IN PLACE BED IN LOW POSITION CALL LIGHT WITHIN REACH WILL CONT TO MONITOR
[2018-12-20 08:00] VITALS: BP 110/67
[2018-12-20] MEDS: PROSOURCE / PROSTAT (PYXIS) 30 ML UDC GT SCH (09:00)
[2018-12-20] MEDS ORDERED: EPOETIN ALFA (10,000 UNIT) 10,000 UNIT/ML VIAL SQ ONE (09:00)
[2018-12-20] MEDS: DAKINS QUARTER STRENGTH (0.125%) 480 ML BOTTLE TOP SCH ×2 (09:00→17:49)
--- NOTE | 2018-12-20 09:44 | NUR ---
RT NOTE RECEIVED PT MECHANICALLY VENTILATED VIA SHILEY 8 CUFFED TRACHEOSTOMY TUBE. CUFF INFLATED. TRACH TUBE MIDLINE AND SECURE. VENTILATOR SETTINGS PRESCRIBED. ALARMS SET PER PROTOCOL AND AUDIBLE. VENT PLUGGED IN TO RED OUTLET. AMBU BAG AT BED SIDE. NO DISTRESS NOTED AT MOMENT. Addendum: 12/20/18 at 0944 by HILLARY SANTACRUZ RT Amended: Links added.
[2018-12-20] MEDS: SULFAMETH/TRIMETH 800/160 MG 1 UDTAB TABLET PO SCH ×2 (10:03→21:44)
[2018-12-20] MEDS: HYDROCODONE/APAP 5/325MG 1 EACH TABLET GT SCH (10:03)
[2018-12-20] MEDS: ASCORBIC ACID 500 MG TABLET GT SCH (10:03)
[2018-12-20] MEDS: ZINC SULFATE 220 MG CAPSULE GT SCH (10:03)
[2018-12-20] MEDS: PANTOPRAZOLE 40 MG/PACK PACK GT SCH (10:04)
[2018-12-20] MEDS: VIT B CMPLX 3/FA/VIT C/BIOTIN 1 TAB TABLET GT SCH (10:04)
[2018-12-20] MEDS: LACTOBACILLUS RHAMNOSUS GG 1 EACH CAP.SPRINK GT SCH ×2 (10:04→17:48)
[2018-12-20] MEDS: METOPROLOL TARTRATE 50 MG TABLET GT SCH ×2 (10:05→21:43)
[2018-12-20] MEDS: INSULIN GLARGINE, 100 UNIT/ML CARTRIDGE SQ SCH ×2 (10:08→21:30)
[2018-12-20] MEDS: SUCRALFATE 1 G/10 ML UDC GT SCH ×4 (10:09→21:44)
[2018-12-20 12:00] VITALS: BP 115/70
[2018-12-20] MEDS: INSULIN ASPART/LISPRO 100 UNIT/ML CARTRIDGE SQ PRN ×2 (12:55→18:06)
[2018-12-20 16:00] VITALS: BP_SYST 101; BP_DIAS 45; BP_DIAS 48
[2018-12-20] MEDS: CEFEPIME 1 GM in IV D5W 50 ML IV SCH (17:49)
--- NOTE | 2018-12-20 19:30 | NUR ---
INTELLIGENCE ENGINEER NOTE: PATIENT RESTING IN BED, NO ACUTE DISTRESS NOTED. BREATHING EVEN AND UNLABORED, NO SOB NOTED. VENT SETTING IN PLACE. MIDLINE TO GENO IN PLACE HD SITE TO RIGHT CHEST WALL, NO BLEEDING NOTED. G-TUBE IN PLACE WITH NO RESIDUAL, INFUSING NEPHRO AT 20ML/HR, WITH GOAL OF 40ML/HR. RATE INCREASED TO 25ML/HR, WILL CONTINUE TO MONITOR FOR RESIDUAL, HOB ELEVATED. NO S/S OF HYPER/HYPOGLYCEMIA NOTED. ISOLATION PRECAUTIONS OBSERVED. BED LOCKED AND IN LOWEST POSITION, CALL LIGHT IN REACH. WILL CONTINUE TO MONITOR
--- NOTE | 2018-12-20 19:47 | NUR ---
FAMILY READINESS SUPPORT ASSISTANT CLOSING NOTES BEDSIDE REPORT GIVEN TO NOC PATIENT OBTUNDED NON RESPONSIVE ON VENT TOLERATING VENT SETTINGS ORDERED. NO ACUTE PAIN NOTED. SINUS RHYTHM ON TELE MONITOR 80'S GTF RUNNING AT 20ML/HR TOLERATING WELL AT THIS TIME NO N/V/D. GENO MIDLINE #18 GAUGE RCW PERMA CATH LAST HD 12/20. ASPIRATION AND SAFETY PRECAUTIONS IN PLACE BED IN LOW POSITION CALL LIGHT WITHIN REACH WILL CONT TO MONITOR
[2018-12-20 20:20] VITALS: BP 159/54
[2018-12-20] MEDS: FENOFIBRATE NANOCRYS (145 MG) 145 MG TABLET GT SCH (21:44)
--- NOTE | 2018-12-20 22:30 | NUR ---
SPINNER CONTINUOUS NOTE: PATIENT BLOOD SUGAR LEVEL 104MG/DL, NO LANTUS GIVEN DUE TO LOW BLOOD SUGAR, NO S/S OF HYPO/HYPERGLYCEMIA NOTED. G-TUBE FEEDING INFUSING TOLERATED. WILL CONTINUE TO MONITOR.
[2018-12-21 00:10] VITALS: BP 146/62
[2018-12-21] MEDS: METOCLOPRAMIDE HCL 10 MG/2 ML VIAL IV SCH ×4 (00:15→17:18)
[2018-12-21] MEDS: POLYVINYL ALCOHOL 15 ML BOTTLE EACHEYE SCH ×4 (00:15→17:18)
[2018-12-21] MEDS: BLOOD SUGAR DIAGNOSTIC 1 EACH STRIP IN SCH ×4 (00:15→17:29)
[2018-12-21 04:10] VITALS: BP 136/60
[2018-12-21] MEDS: METRONIDAZOLE 500 MG TABLET PO SCH ×3 (05:09→20:30)
[2018-12-21] MEDS: INSULIN ASPART/LISPRO 100 UNIT/ML CARTRIDGE SQ PRN ×3 (05:45→17:30)
--- NOTE | 2018-12-21 06:05 | NUR ---
GOLD LEAF LAYER NOTE: PATIENT RESTING IN BED, NO ACUTE DISTRESS NOTED. BREATHING EVEN AND UNLABORED, NO SOB NOTED. VENT SETTING IN PLACE. MIDLINE TO GENO IN PLACE. HD SITE TO RIGHT CHEST WALL IN PLACE. G-TUBE IN PLACE WITH 5ML RESIDUAL, INFUSING NEPHRO AT 25ML/HR, TOLERATED WELL THROUGHOUT NIGHT WITHOUT VOMITING, HOB ELEVATED. PATIENT BLOOD SUGAR LEVEL 138MG/DL, TO RECEIVE 2 UNITS OF INSULIN PER SLIDING SCALE. NO S/S OF HYPER/HYPOGLYCEMIA NOTED. ISOLATION PRECAUTIONS OBSERVED. BED LOCKED AND IN LOWEST POSITION, CALL LIGHT IN REACH. WILL ENDORSE TO DAY NURSE TO CONTINUE WITH PLAN OF CARE.
[2018-12-21 06:48] LABS: CALCIUM, SERUM 8.1 mg/dL (8.5-10.1); CREATININE 2.9 mg/dL (0.6-1.3); POTASSIUM 3.1 mmol/L (3.5-5.1)
[2018-12-21 06:51] LABS: BASOPHILS # (AUTO) 0.1 /CMM (0.0-0.2); BASOPHILS % (AUTO) 0.4 % (0.0-2.0); EOSINOPHILS % (AUTO) 8.3 % (0.0-6.0); HEMATOCRIT 25 % (39-51); HEMOGLOBIN 8.1 g/dL (13.5-17.5); LYMPHOCYTES # (AUTO) 1.4 /CMM (0.8-4.8); LYMPHOCYTES % (AUTO) 9.9 % (20.0-44.0); MEAN CORPUSCULAR HGB CONC 33 g/dl (31.0-36.0); MEAN CORPUSCULAR VOLUME 97 fL (80-96); MONOCYTES # (AUTO) 0.9 /CMM (0.1-1.30); MONOCYTES % (AUTO) 6.6 % (2.0-12.0); NEUTROPHILS # (AUTO) 10.6 /CMM (1.8-8.9); NEUTROPHILS % (AUTO) 74.8 % (43.0-81.0); PLATELET COUNT (AUTO) 228 /CMM (150-450); RED BLOOD CELL COUNT(AUTO) 2.56 MIL/uL (4.5-6.0); WHITE BLOOD COUNT (AUTO) 14.1 K/uL (4.3-11.0)
--- NOTE | 2018-12-21 07:35 | NUR ---
HEALTH INFORMATION SPECIALIST OPENING NOTES RECEIVED BEDSIDE REPORT. PATIENT OBTUNDED NON RESPONSIVE ON VENT TOLERATING VENT SETTINGS ORDERED. NO ACUTE PAIN NOTED. SINUS RHYTHM ON TELE MONITOR 80'S GTF RUNNING AT 25ML/HR TOLERATING WELL AT THIS TIME NO N/V/D. GENO MIDLINE #18 GAUGE RCW PERMA CATH LAST HD 12/20 ASPIRATION AND SAFETY PRECAUTIONS IN PLACE BED IN LOW POSITION CALL LIGHT WITHIN REACH WILL CONT TO MONITOR
[2018-12-21 08:00] VITALS: BP_SYST 136; BP_SYST 95; BP_DIAS 22; BP_DIAS 61
[2018-12-21] MEDS: SUCRALFATE 1 G/10 ML UDC GT SCH ×4 (08:34→21:16)
[2018-12-21] MEDS: HYDROCODONE/APAP 5/325MG 1 EACH TABLET GT SCH (08:34)
[2018-12-21] MEDS: ZINC SULFATE 220 MG CAPSULE GT SCH (08:34)
[2018-12-21] MEDS: LACTOBACILLUS RHAMNOSUS GG 1 EACH CAP.SPRINK GT SCH ×2 (08:34→17:18)
[2018-12-21] MEDS: PANTOPRAZOLE 40 MG/PACK PACK GT SCH (08:35)
[2018-12-21] MEDS: VIT B CMPLX 3/FA/VIT C/BIOTIN 1 TAB TABLET GT SCH (08:35)
[2018-12-21] MEDS: ASCORBIC ACID 500 MG TABLET GT SCH (08:35)
[2018-12-21] MEDS: SULFAMETH/TRIMETH 800/160 MG 1 UDTAB TABLET PO SCH ×2 (08:35→20:30)
[2018-12-21] MEDS: METOPROLOL TARTRATE 50 MG TABLET GT SCH ×2 (08:35→20:30)
[2018-12-21] MEDS: INSULIN GLARGINE, 100 UNIT/ML CARTRIDGE SQ SCH ×2 (08:37→21:00)
[2018-12-21] MEDS: DAKINS QUARTER STRENGTH (0.125%) 480 ML BOTTLE TOP SCH ×2 (08:37→17:18)
[2018-12-21] MEDS: PROSOURCE / PROSTAT (PYXIS) 30 ML UDC GT SCH (08:37)
--- NOTE | 2018-12-21 11:30 | NUR ---
PUBLICATIONS WRITER NOTED PT VOMITED SMALL AMOUNT OF MUCUS YELLOW FEEDING TURNED OFF NO RESIDUAL LARGE AMOUNT OF AIR REMOVED
[2018-12-21 12:00] VITALS: BP_SYST 132; BP_SYST 84; BP_DIAS 34; BP_DIAS 63
[2018-12-21] MEDS: DEXTROSE 50%-WATER 50 ML DISP.SYRIN IV PRN (12:38)
--- NOTE | 2018-12-21 12:40 | NUR ---
DRUM DRIER NOTES PT BLOOD SUGAR 48 50% DEXTROSE ADMINISTERED
[2018-12-21 16:00] VITALS: BP 124/60
[2018-12-21] MEDS: NEPRO 1,000 ML BOTTLE GT PRN (17:16)
[2018-12-21] MEDS: CEFEPIME 1 GM in IV D5W 50 ML IV SCH (17:19)
--- NOTE | 2018-12-21 19:11 | NUR ---
LABOR ECONOMIST CLOSING NOTES BEDSIDE REPORT GIVEN TO JACKI PATIENT OBTUNDED NON RESPONSIVE ON VENT TOLERATING VENT SETTINGS ORDERED. NO ACUTE PAIN NOTED. SINUS RHYTHM ON TELE MONITOR 80'S GTF RUNNING AT 20ML/HR TOLERATING WELL AT THIS TIME NO N/V/D. ONE GENO MIDLINE #18 GAUGE RCW PERMA CATH LAST HD 12/20 2.5 LTRS REMOVED ASPIRATION AND SAFETY PRECAUTIONS IN PLACE BED IN LOW POSITION CALL LIGHT WITHIN REACH WILL ENDORSE TO JACKI
[2018-12-21 20:00] VITALS: BP 147/55
[2018-12-21] MEDS: FENOFIBRATE NANOCRYS (145 MG) 145 MG TABLET GT SCH (21:16)
[2018-12-22] VITALS: BP 150/64
[2018-12-22] MEDS: METOCLOPRAMIDE HCL 10 MG/2 ML VIAL IV SCH ×4 (00:29→18:08)
[2018-12-22 04:00] VITALS: BP 153/61
[2018-12-22] MEDS: BLOOD SUGAR DIAGNOSTIC 1 EACH STRIP IN SCH ×4 (05:31→18:09)
[2018-12-22] MEDS: POLYVINYL ALCOHOL 15 ML BOTTLE EACHEYE SCH ×4 (05:31→18:09)
[2018-12-22] MEDS: METRONIDAZOLE 500 MG TABLET PO SCH ×2 (05:32→12:27)
[2018-12-22 06:49] LABS: CALCIUM, SERUM 8.2 mg/dL (8.5-10.1); CREATININE 3.2 mg/dL (0.6-1.3); POTASSIUM 2.9 mmol/L (3.5-5.1)
[2018-12-22 06:55] LABS: BASOPHILS # (AUTO) 0.1 /CMM (0.0-0.2); BASOPHILS % (AUTO) 0.4 % (0.0-2.0); EOSINOPHILS % (AUTO) 6.9 % (0.0-6.0); HEMATOCRIT 25 % (39-51); HEMOGLOBIN 8.1 g/dL (13.5-17.5); LYMPHOCYTES # (AUTO) 1.9 /CMM (0.8-4.8); LYMPHOCYTES % (AUTO) 11.8 % (20.0-44.0); MEAN CORPUSCULAR HGB CONC 33 g/dl (31.0-36.0); MEAN CORPUSCULAR VOLUME 99 fL (80-96); MONOCYTES % (AUTO) 6.4 % (2.0-12.0); NEUTROPHILS # (AUTO) 11.8 /CMM (1.8-8.9); NEUTROPHILS % (AUTO) 74.5 % (43.0-81.0); PLATELET COUNT (AUTO) 244 /CMM (150-450); RED BLOOD CELL COUNT(AUTO) 2.51 MIL/uL (4.5-6.0); WHITE BLOOD COUNT (AUTO) 15.9 K/uL (4.3-11.0)
--- NOTE | 2018-12-22 07:22 | NUR ---
RT Pt received with a shiley 8 trach on vent with noted settings. Pt is awake but does not follow commands. Vent alarms are set and audible with BVM by bedside. WATERMELON INSPECTOR cuff pressure noted. Vent is plugged into red outlet. Sx'd moderate thick pale yellow secretions. No SOB or respiratory distress noted at this time. Addendum: 12/22/18 at 1306 by SAJAN BOLANOS RT Amended: Links added.
[2018-12-22 08:00] VITALS: BP_SYST 149; BP_DIAS 62; BP_DIAS 64
[2018-12-22] MEDS: SUCRALFATE 1 G/10 ML UDC GT SCH ×3 (08:19→18:07)
[2018-12-22] MEDS: METOPROLOL TARTRATE 50 MG TABLET GT SCH (09:00)
[2018-12-22] MEDS: INSULIN GLARGINE, 100 UNIT/ML CARTRIDGE SQ SCH (09:16)
[2018-12-22] MEDS: PROSOURCE / PROSTAT (PYXIS) 30 ML UDC GT SCH (09:17)
[2018-12-22] MEDS: ZINC SULFATE 220 MG CAPSULE GT SCH (09:17)
[2018-12-22] MEDS: SULFAMETH/TRIMETH 800/160 MG 1 UDTAB TABLET PO SCH (09:17)
[2018-12-22] MEDS: LACTOBACILLUS RHAMNOSUS GG 1 EACH CAP.SPRINK GT SCH ×2 (09:17→18:08)
[2018-12-22] MEDS: PANTOPRAZOLE 40 MG/PACK PACK GT SCH (09:17)
[2018-12-22] MEDS: ASCORBIC ACID 500 MG TABLET GT SCH (09:18)
[2018-12-22] MEDS: HYDROCODONE/APAP 5/325MG 1 EACH TABLET GT SCH (09:18)
[2018-12-22] MEDS: VIT B CMPLX 3/FA/VIT C/BIOTIN 1 TAB TABLET GT SCH (09:18)
[2018-12-22] MEDS: DAKINS QUARTER STRENGTH (0.125%) 480 ML BOTTLE TOP SCH ×2 (09:19→18:08)
--- NOTE | 2018-12-22 09:30 | NUR ---
TELE1/RN AM SHIFT INITIAL NOTES RECEIVED PT ASLEEP IN BED, PT IS OBTUNDED, OPEN EYES SPONTANEOUSLY, NO GRIMACING OR ACUTE CHANGE OF CONDITION NOTED. ON VENTILATOR WITH RATES SET PRESCRIBED, SATURATING @ 98%. LUNG SOUNDS CLEAR. RESPIRATIONS EVEN AND UNLABORED. SUCTIONED FOR AIRWAY CLEARANCE. ON TELE MONITORING, SINUS RHYTHM, HR 91. MIDLINE INTACT, SL. IJ DIALYSIS ACCESS, DRESSING INTACT, NO S/S OF INFECTION. BP MEDS WILL BE HELD FOR SCHEDULED HD TREATMENT TODAY. ON GOING GTF @ 20CC/HR, NO GASTRIC RESIDUAL NOTED, FLUSHED, PATENT. WITH GENERALIZED EDEMA. PT IS COMFORTABLE, SCHEDULED AM MEDS TO BE GIVEN. CL WITHIN REACHED, SAFETY MAINTAINED AND ISOLATION OBSERVED. ON GOING MONITORING.
[2018-12-22 12:00] VITALS: BP_SYST 140; BP_DIAS 83; BP_DIAS 88
[2018-12-22] MEDS ORDERED: NEUTRA PHOS 1 POWD.PACKET NG ONE (13:30)
[2018-12-22] MEDS ORDERED: METO50TA16 GT (13:35)
[2018-12-22] MEDS ORDERED: METR500T PO (13:35)
[2018-12-22] MEDS ORDERED: BISA10SU8 RC (13:35)
[2018-12-22] MEDS ORDERED: MAG30ORA PO (13:35)
[2018-12-22] MEDS ORDERED: PANT40SU2 GT (13:35)
[2018-12-22] MEDS ORDERED: Polyvinyl Alcohol EACHEYE (13:35)
[2018-12-22] MEDS ORDERED: CLON0.1T14 GT (13:35)
[2018-12-22] MEDS ORDERED: SUCR1ORA6 GT (13:35)
[2018-12-22] MEDS ORDERED: INSU100I30 SQ (13:35)
[2018-12-22] MEDS ORDERED: VITA56.7 TP (13:35)
[2018-12-22] MEDS ORDERED: Prosource GT (13:35)
[2018-12-22] MEDS ORDERED: FENO145T GT (13:35)
[2018-12-22] MEDS ORDERED: INSU100C4 SQ (13:35)
[2018-12-22] MEDS ORDERED: Blood Sugar Diagnostic IN (13:35)
[2018-12-22] MEDS ORDERED: ASCO500T9 GT (13:35)
[2018-12-22] MEDS ORDERED: ACETAMINOPHEN RC (13:35)
[2018-12-22] MEDS ORDERED: NEUTRA PHOS NG (13:35)
[2018-12-22] MEDS ORDERED: SULF1TAB3 PO (13:35)
[2018-12-22] MEDS ORDERED: ALLA266C2 TP (13:35)
[2018-12-22] MEDS ORDERED: SODI473S8 TOP ×2 (13:35→17:34)
[2018-12-22] MEDS ORDERED: VIT1TABL44 GT (13:35)
[2018-12-22] MEDS ORDERED: Nepro GT (13:35)
[2018-12-22] MEDS ORDERED: Ergocalciferol (Vitamin D 2) GT (13:35)
[2018-12-22] MEDS ORDERED: Zinc Sulfate GT (13:35)
[2018-12-22] MEDS ORDERED: DEXT50DI8 IV (13:35)
[2018-12-22] MEDS ORDERED: LACT1CAP72 GT (13:35)
[2018-12-22] MEDS ORDERED: HYDR-3972 GT (13:35)
[2018-12-22] MEDS ORDERED: ACET325T53 PO (13:35)
--- NOTE | 2018-12-22 14:45 | NUR ---
TELE1/MANAGER EDUCATION TX - COMPLETED HD TREATMENT COMPLETED, REMOVED 2L OF FLUID. PT TOLERATED PROCEDURE. MONITORING CONTINUED.
[2018-12-22] MEDS: ONDANSETRON HCL/PF 4 MG/2 ML VIAL IVP PRN (14:51)
[2018-12-22 17:00] VITALS: BP 133/87
[2018-12-22] MEDS ORDERED: CEFE1VIA3 IV (17:34)
[2018-12-22] MEDS ORDERED: METO10SY IV (17:34)
[2018-12-22] MEDS ORDERED: BLOO-668 IN (17:34)
[2018-12-22] MEDS ORDERED: ONDA2VIA IVP (17:34)
[2018-12-22] MEDS ORDERED: ACET650S13 RC (17:34)
--- NOTE | 2018-12-22 18:00 | NUR ---
TELE1/TEMPERER TO [facility]AC[facility] REPORT GIVEN TO SUBACUTE NURSE. PT TRANSFERRED TO ROOM 274 ACCOMPANIED BY CHARGE NURSE ORQUIDEA AND RT VIA BED. ENDORSED TO SUBACUTE NURSE TO CONTINUE CARE.
[2018-12-22] MEDS: CEFEPIME 1 GM in IV D5W 50 ML IV SCH (18:08)
== END 2018-12-22 18:03 | DRG 711 ==
LOC: ER 17:12 → TELE1 21:48 → TELE-TD 21:59 → TELE1 11-23 11:46
PROVIDERS: ADMIT Family Medicine; ATTEND Student in an Organized Health Care Education/Training Program
PROC: 5A1955Z Respiratory Ventilation, Greater than 96 Consecutive Hours (ICD-10-PCS; 2018-11-22)
PROC: 0QB30ZZ Excision of Left Pelvic Bone, Open Approach (ICD-10-PCS; principal; 2018-11-25)
PROC: 0QB10ZZ Excision of Sacrum, Open Approach (ICD-10-PCS; principal; 2018-11-25)
PROC: 0QB20ZZ Excision of Right Pelvic Bone, Open Approach (ICD-10-PCS; principal; 2018-11-25)
PROC: 30233N1 Transfusion of Nonautologous Red Blood Cells into Peripheral Vein, Percutaneous Approach (ICD-10-PCS; 2018-11-27)
PROC: 0QB10ZZ Excision of Sacrum, Open Approach (ICD-10-PCS; 2018-11-29)
PROC: 02HV33Z Insertion of Infusion Device into Superior Vena Cava, Percutaneous Approach (ICD-10-PCS; 2018-12-07)
PROC: B548ZZA Ultrasonography of Superior Vena Cava, Guidance (ICD-10-PCS; 2018-12-07)
PROC: 0QB30ZZ Excision of Left Pelvic Bone, Open Approach (ICD-10-PCS; 2018-12-09)
PROC: 0QB20ZZ Excision of Right Pelvic Bone, Open Approach (ICD-10-PCS; 2018-12-09)
PROC: 0QB10ZZ Excision of Sacrum, Open Approach (ICD-10-PCS; 2018-12-09)
PROC: 05HM33Z Insertion of Infusion Device into Right Internal Jugular Vein, Percutaneous Approach (ICD-10-PCS; 2018-12-09)
PROC: 05HM33Z Insertion of Infusion Device into Right Internal Jugular Vein, Percutaneous Approach (ICD-10-PCS; 2018-12-17)
PROC: 0JHD3XZ Insertion of Tunneled Vascular Access Device into Right Upper Arm Subcutaneous Tissue and Fascia, Percutaneous Approach (ICD-10-PCS; 2018-12-17)
PROC: B543ZZA Ultrasonography of Right Jugular Veins, Guidance (ICD-10-PCS; 2018-12-17)
PROC: B543ZZA Ultrasonography of Right Jugular Veins, Guidance (ICD-10-PCS; 2018-12-17)
DX: T80.211A Bloodstream infection due to central venous catheter, initial encounter (principal); A41.89 Other specified sepsis; E43 Unspecified severe protein-calorie malnutrition; G93.40 Encephalopathy, unspecified; Z99.11 Dependence on respirator [ventilator] status; J81.1 Chronic pulmonary edema; B49 Unspecified mycosis; J96.11 Chronic respiratory failure with hypoxia; L89.154 Pressure ulcer of sacral region, stage 4; E11.22 Type 2 diabetes mellitus with diabetic chronic kidney disease; L89.324 Pressure ulcer of left buttock, stage 4; L89.314 Pressure ulcer of right buttock, stage 4; I12.0 Hypertensive chronic kidney disease with stage 5 chronic kidney disease or end stage renal disease; N18.6 End stage renal disease; E87.1 Hypo-osmolality and hyponatremia; Z99.2 Dependence on renal dialysis; E83.39 Other disorders of phosphorus metabolism; Y92.129 Unspecified place in nursing home as the place of occurrence of the external cause; R53.2 Functional quadriplegia; E87.6 Hypokalemia; K21.9 Gastro-esophageal reflux disease without esophagitis; E87.70 Fluid overload, unspecified; E11.51 Type 2 diabetes mellitus with diabetic peripheral angiopathy without gangrene; Y84.8 Other medical procedures as the cause of abnormal reaction of the patient, or of later complication, without mention of misadventure at the time of the procedure; Z93.1 Gastrostomy status; Z93.0 Tracheostomy status; R13.10 Dysphagia, unspecified; Z79.01 Long term (current) use of anticoagulants; Z79.4 Long term (current) use of insulin; Z79.82 Long term (current) use of aspirin; Z79.899 Other long term (current) drug therapy; F09 Unspecified mental disorder due to known physiological condition; D63.8 Anemia in other chronic diseases classified elsewhere; E11.649 Type 2 diabetes mellitus with hypoglycemia without coma; L89.611 Pressure ulcer of right heel, stage 1; L97.519 Non-pressure chronic ulcer of other part of right foot with unspecified severity; Z89.411 Acquired absence of right great toe; E11.69 Type 2 diabetes mellitus with other specified complication; M86.9 Osteomyelitis, unspecified; L98.9 Disorder of the skin and subcutaneous tissue, unspecified; K92.0 Hematemesis; Z89.432 Acquired absence of left foot; B37.49 Other urogenital candidiasis; E86.1 Hypovolemia
CPT/HCPCS: 31720; 36415; 36600; 71045-TC; 74018; 80048-TC; 80053-TC; 80061-TC; 80076-TC; 80202-TC; 81000-TC; 82272-TC; 82728-TC; 82962-TC; 83540-TC; 83605-TC; 83735-TC; 84100-TC; 84484-TC; 85025-TC; 85027-TC; 85730-TC; 86850-TC; 86921-TC; 87040-TC; 87070-TC; 87081-TC; 87086-TC; 87186-TC; 87400; 90935-TC; 94002-TC; 94003-TC; 94640-TC; 94760-TC; 94761-TC; 94762-TC; 94799-TC; 99082-TC; A4216; A4217; A4349; A4623; A6253; A6402; A6403; A7526; A9563; C1750; C1769; C9113; G0378; J0690; J0692; J0696; J0770; J0885; J1450; J1644; J1815; J2185; J2248; J2250; J2405; J2704; J2765; J3370; J3475; J3480; J3490; J7030; J7040; J7042; J7050; J7060; J8597; P9016-BL; P9047

== ENCOUNTER 2018-12-22 11:48 | Inpatient (IN) | payer OTHER ==
[~2018-12-22] VITALS: Ht 109.2 cm; Wt 51.3 kg
[~2018-12-22 11:48] MED LIST changes: +OMEP40CA13 GT; -OMEP40CA37 GT; -ZINC220T GT; +ZINC220T4 GT
[2018-12-22] MEDS ORDERED: FENO145T GT (13:35)
[2018-12-22] MEDS ORDERED: Zinc Sulfate GT (13:35)
[2018-12-22] MEDS ORDERED: MAG30ORA PO (13:35)
[2018-12-22] MEDS ORDERED: INSU100C4 SQ (13:35)
[2018-12-22] MEDS ORDERED: Blood Sugar Diagnostic IN (13:35)
[2018-12-22] MEDS ORDERED: METO50TA16 GT (13:35)
[2018-12-22] MEDS ORDERED: HYDR-3972 GT (13:35)
[2018-12-22] MEDS ORDERED: VITA56.7 TP (13:35)
[2018-12-22] MEDS ORDERED: PANT40SU2 GT (13:35)
[2018-12-22] MEDS ORDERED: LACT1CAP72 GT (13:35)
[2018-12-22] MEDS ORDERED: BISA10SU11 RC (13:35)
[2018-12-22] MEDS ORDERED: DEXT50DI8 IV (13:35)
[2018-12-22] MEDS ORDERED: METR500T PO (13:35)
[2018-12-22] MEDS ORDERED: ACET325T53 PO (13:35)
[2018-12-22] MEDS ORDERED: CLON0.1T14 GT (13:35)
[2018-12-22] MEDS ORDERED: ALLA266C2 TP (13:35)
[2018-12-22] MEDS ORDERED: NEUTRA PHOS NG (13:35)
[2018-12-22] MEDS ORDERED: SODI473S8 TOP ×2 (13:35→17:34)
[2018-12-22] MEDS ORDERED: ASCO500T9 GT (13:35)
[2018-12-22] MEDS ORDERED: Ergocalciferol (Vitamin D 2) GT (13:35)
[2018-12-22] MEDS ORDERED: SUCR1ORA6 GT (13:35)
[2018-12-22] MEDS ORDERED: Nepro GT (13:35)
[2018-12-22] MEDS ORDERED: Polyvinyl Alcohol EACHEYE (13:35)
[2018-12-22] MEDS ORDERED: ACETAMINOPHEN RC (13:35)
[2018-12-22] MEDS ORDERED: INSU100I30 SQ (13:35)
[2018-12-22] MEDS ORDERED: Prosource GT (13:35)
[2018-12-22] MEDS ORDERED: SULF1TAB3 PO (13:35)
[2018-12-22] MEDS ORDERED: VIT1TABL44 GT (13:35)
[2018-12-22] MEDS ORDERED: ACET650S11 RC (17:34)
[2018-12-22] MEDS ORDERED: ONDA2VIA IVP (17:34)
[2018-12-22] MEDS ORDERED: BLOO-668 IN (17:34)
[2018-12-22] MEDS ORDERED: CEFE1VIA3 IV (17:34)
[2018-12-22] MEDS ORDERED: METO10SY GT (17:34)
[2018-12-22] MEDS ORDERED: NEPRO 1,000 ML BOTTLE GT PRN ×2 (18:00→20:30)
--- NOTE | 2018-12-22 19:21 | NUR ---
RN NOTE RECIEVED PATIENT FROM [facility] TRANSFER. IV PATENT AND INTAKE, PATIENT ALERT X1. BODY CHECK DONE, WOUND ASSESSMENT AND PICTURES TAKEN. NOTIFED MD OF TRANSFER AND AWAITING ORDERS FOR MEDICATION TO BE CONTINUED. ENDORSE TO NIGHT NURSE, PATIENT CLEAN AND DRY, DRESSING CHANGES DONE AND COMPLETE, ISOLATION PRECATUTIONS STRICTLY ENFORCED. CONTINUE TO MONITOR.
--- NOTE | 2018-12-22 19:26 | NUR ---
RN NOTE CONTACTED DR AND AWARE PATIENT IS ON UNIT. TELEPHONE ORDERS TO CONTINUE ALL CURRENT MEDICATIONS. CONTINUE TO MONITOR.
[2018-12-22 20:24] VITALS: BP 138/93
[2018-12-22] MEDS ORDERED: MAGNESIUM HYDROXIDE 30 ML UDC GT PRN (20:30)
[2018-12-22] MEDS ORDERED: BISACODYL SUPP (10 MG) 10 MG/SUPP.RECT SUPP.RECT RC PRN (20:30)
[2018-12-22] MEDS ORDERED: DEXTROSE 50%-WATER 50 ML DISP.SYRIN IV PRN (20:30)
[2018-12-22] MEDS ORDERED: ACETAMINOPHEN 650 MG/SUPP.RECT RC PRN (20:30)
[2018-12-22] MEDS ORDERED: MAG HYDROX/AL HYDROX/SIMETH 30 ML UDC GT PRN (20:30)
[2018-12-22] MEDS ORDERED: NA PHOS,M-B/NA PHOS,DI-BA 1 EA ENEMA RC PRN (21:00)
[2018-12-22] MEDS: SULFAMETH/TRIMETH 800/160 MG 1 UDTAB TABLET PO SCH (21:32)
[2018-12-22] MEDS: METOPROLOL TARTRATE 50 MG TABLET GT SCH (21:35)
[2018-12-22] MEDS: INSULIN GLARGINE, 100 UNIT/ML CARTRIDGE SQ SCH (21:45)
--- NOTE | 2018-12-22 22:00 | NUR ---
Completed initial and body assessment,treatment initiated as ordered.Patient family came to visit gave them some information regarding the unit.Right upper chest wall perma cath dressing intact and clean.Right upper arm midline intact and patent.Bed bath and wound treatment provided.Kept clean and comfortable will continue to monitor.
[2018-12-22] MEDS ORDERED: METOCLOPRAMIDE HCL 10 MG/2 ML VIAL ONE (22:58)
[2018-12-22] MEDS: FENOFIBRATE NANOCRYS (145 MG) 145 MG TABLET GT SCH (23:30)
[2018-12-22] MEDS: INSULIN ASPART/LISPRO 100 UNIT/ML CARTRIDGE SQ PRN (23:46)
[2018-12-22] MEDS: POLYVINYL ALCOHOL 15 ML BOTTLE EACHEYE SCH (23:46)
[2018-12-22] MEDS: BLOOD SUGAR DIAGNOSTIC 1 EACH STRIP IN SCH (23:46)
[2018-12-22] MEDS: METOCLOPRAMIDE HCL 10 MG/2 ML VIAL IV SCH (23:55)
[2018-12-23 01:43] VITALS: BP 125/75
[2018-12-23] MEDS: METRONIDAZOLE 500 MG TABLET PO SCH ×3 (02:32→17:58)
[2018-12-23 04:00] VITALS: BP_SYST 135; BP_DIAS 58; BP_DIAS 59
[2018-12-23 04:50] VITALS: BP 119/85
[2018-12-23] MEDS: BLOOD SUGAR DIAGNOSTIC 1 EACH STRIP IN SCH ×3 (06:32→17:58)
[2018-12-23] MEDS: POLYVINYL ALCOHOL 15 ML BOTTLE EACHEYE SCH ×3 (06:32→17:57)
[2018-12-23] MEDS: INSULIN ASPART/LISPRO 100 UNIT/ML CARTRIDGE SQ PRN (06:33)
[2018-12-23] MEDS: METOCLOPRAMIDE HCL 10 MG/2 ML VIAL IV SCH (06:41)
[2018-12-23 08:03] VITALS: BP 132/62
[2018-12-23] MEDS: INSULIN GLARGINE, 100 UNIT/ML CARTRIDGE SQ SCH (09:00)
[2018-12-23] MEDS: VIT B CMPLX 3/FA/VIT C/BIOTIN 1 TAB TABLET GT SCH (09:00)
[2018-12-23] MEDS: PROSOURCE / PROSTAT (PYXIS) 30 ML UDC GT SCH (09:00)
[2018-12-23] MEDS ORDERED: PANTOPRAZOLE 40 MG/PACK PACK GT SCH (09:00)
[2018-12-23] MEDS: LACTOBACILLUS RHAMNOSUS GG 1 EACH CAP.SPRINK GT SCH ×2 (09:00→17:57)
[2018-12-23] MEDS: METOPROLOL TARTRATE 50 MG TABLET GT SCH ×2 (09:00→20:46)
[2018-12-23] MEDS ORDERED: HYDROCODONE/APAP 5/325MG 1 EACH TABLET GT SCH (09:00)
[2018-12-23] MEDS: ASCORBIC ACID 500 MG TABLET GT SCH (09:00)
[2018-12-23] MEDS: ZINC SULFATE 220 MG CAPSULE GT SCH (09:00)
[2018-12-23] MEDS: SUCRALFATE 1 G/10 ML UDC GT SCH (09:00)
[2018-12-23] MEDS: SULFAMETH/TRIMETH 800/160 MG 1 UDTAB TABLET PO SCH ×2 (09:00→20:46)
--- NOTE | 2018-12-23 09:20 | NUR ---
Resident was seen by Dr. Dhruv Chase with order to do serial debridement of sacral wound. Called daughter Christine Bravo, gave telephone consent for the procedure, witnessed by Deepti Cole LVN.
--- NOTE | 2018-12-23 09:30 | NUR ---
Serial debridement of sacral wound done by Dr. Dhruv Chase, tolerated well, with minimal bleeding. Pain medication given. Will continue to monitor.
--- NOTE | 2018-12-23 09:51 | NUR ---
RT NOTE PT RECEIVED ON [facility] VENT ON THE FOLLOWING NOTED SETTINGS. NO RESP DISTRESS OR SOB NOTED. PT SX'D. VENT IS PLUGGED INTO RED OUTLET, ALARMS ARE ON AND AUDIBLE. AMBU BAG AND SPARE TRACH ARE AT BEDSIDE. WILL CONT TO MONITOR PT. Addendum: 12/23/18 at 0952 by DEANGELO ORTIZ RT Amended: Links added.
--- NOTE | 2018-12-23 11:00 | NUR ---
Per hospital infection nurse Kym patient doesn't need to be swabbed for MRSA again since it was already done at [facility] before discharged to subacute on 12/22/18.
--- NOTE | 2018-12-23 11:01 | NUR ---
RADHA called dialysis and spoke to Nitza to confirm pat. dialysis appointments ( Mon, Wed, Frid). 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 Nurse said it was ok. 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 RADHA work called [facility] and spoke to Namrata to inform the care facility change, from previous to [facility] subacute. Changes were made.
--- NOTE | 2018-12-23 11:07 | NUR ---
SW made a dentist appt with Dr. Austin for January 31.
--- NOTE | 2018-12-23 11:28 | NUR ---
WOUND CARE CONSULT WOUND CARE RECEIVED CONSULT FOR SACRAL WOUND. WOUND CARE WILL DEFER CONSULT AND TREATMENT PLANS TO PLASTIC SURGICAL TEAM AT THIS TIME. PLASTIC TEAM HAS BEEN NOTIFIED. WILL SEE PRN.
[2018-12-23 12:00] VITALS: BP 128/59
[2018-12-23] MEDS: METOCLOPRAMIDE HCL 10 MG TABLET GT SCH ×2 (12:00→17:57)
[2018-12-23] MEDS: Z GUARD REMEDY 4 OZ OINT TP SCH ×2 (12:59→20:52)
[2018-12-23] MEDS: POVIDONE-IODINE OINT 28.4 GM TUBE TP SCH ×4 (12:59→20:52)
[2018-12-23] MEDS: VITS A AND D/WHITE PET/LANOLIN 5 GM PACKET TP SCH ×8 (12:59→20:53)
[2018-12-23] MEDS: DAKINS QUARTER STRENGTH (0.125%) 480 ML BOTTLE TOP SCH ×2 (12:59→20:51)
[2018-12-23] MEDS: KETOCONAZOLE SHAMPOO 120 ML BOTTLE TP SCH (13:00)
[2018-12-23] MEDS ORDERED: ALBUTEROL HALF STRENGTH 1.25 MG/3 ML VIAL.NEB NEB PRN (13:30)
[2018-12-23] MEDS ORDERED: TUBERCULIN,PURIF.PROT.DERIV. 5 TU/0.1 ML VIAL ID SCH (14:00)
[2018-12-23] MEDS: CEFEPIME 1 GM in IV D5W 50 ML IV SCH (18:26)
--- NOTE | 2018-12-23 18:50 | NUR ---
Seen and examined by Joan Phipps NP with new orders and carried out. Will continue to monitor.
[2018-12-23 19:55] VITALS: BP 128/72
[2018-12-23] MEDS ORDERED: HYDROCODONE/APAP 5/325MG 1 EACH TABLET GT PRN (20:00)
[2018-12-23] MEDS: BACI/NEOM/POLY B OINT PKT 1 UDPKT PACKET TP SCH (20:52)
[2018-12-23] MEDS: BASAGLAR KWIKPEN SQ SCH (21:00)
[2018-12-23] MEDS: FENOFIBRATE NANOCRYS (145 MG) 145 MG TABLET GT SCH (21:46)
[2018-12-24] VITALS (9 sets, daily range): BP systolic 125–160; BP diastolic 67–92
[2018-12-24] MEDS: METRONIDAZOLE 500 MG TABLET PO SCH ×2 (01:03→10:08)
[2018-12-24] MEDS: [UNRECOGNIZED DRUG - OTHER] SQ PRN ×3 (01:04→23:47)
[2018-12-24] MEDS: POLYVINYL ALCOHOL 15 ML BOTTLE EACHEYE SCH ×5 (05:56→23:44)
[2018-12-24] MEDS: METOCLOPRAMIDE HCL 10 MG TABLET GT SCH ×5 (05:57→23:44)
[2018-12-24] MEDS: BLOOD SUGAR DIAGNOSTIC 1 EACH STRIP IN SCH ×5 (05:57→23:46)
[2018-12-24] MEDS: PROSOURCE / PROSTAT (PYXIS) 30 ML UDC GT SCH (09:00)
[2018-12-24] MEDS: VIT B CMPLX 3/FA/VIT C/BIOTIN 1 TAB TABLET GT SCH (09:00)
[2018-12-24] MEDS: METOPROLOL TARTRATE 50 MG TABLET GT SCH ×2 (09:00→21:30)
[2018-12-24] MEDS: BASAGLAR KWIKPEN SQ SCH ×2 (09:00→21:48)
[2018-12-24] MEDS: SUCRALFATE 1 G/10 ML UDC GT SCH (09:00)
[2018-12-24] MEDS: LACTOBACILLUS RHAMNOSUS GG 1 EACH CAP.SPRINK GT SCH ×2 (09:00→17:00)
[2018-12-24] MEDS: OMEPRAZOLE 20 MG CAPSULE.DR GT SCH (09:00)
[2018-12-24] MEDS: ZINC SULFATE 220 MG CAPSULE GT SCH (09:00)
[2018-12-24] MEDS: ASCORBIC ACID 500 MG TABLET GT SCH (09:00)
--- NOTE | 2018-12-24 09:45 | NUR ---
Seen and examined by Dr. Dia. NNO given. Patient continue on ATB but no stop date yet, MD said to follow-up with infectious disease following the patient. No new order given at this time. Patient awake, eyes open but does not follow command, on ventilator tolerating current vent setting. GT feeding tolerated, no vomiting this shift.
--- NOTE | 2018-12-24 09:53 | NUR ---
Met with daughter, Christine and , Janet @9am; discussed and went through [facility] Resident Care Plan form. Family said its ok to address resident as "Mr Bravo", "Gadiel" or "Blane" and preferred language is Bolivian although resident also understands Sinhala. Shared that they have karmen he will get better and go home but for now wants him to be taken cared of first at Subacute. Encouraged to wear PPE: gown, gloves and mask when visiting resident, also to observe good handwashing related to contact and droplet isolation order, sputum positive for CRE. Family chose not to view admission photos of wounds including sacrococcyx extending to bilateral buttocks pressure ulcer when offered, saying they are already aware of his skin condition and have seen photos before. Resident has no hearing problem, has his own teeth with some missing and wears eyeglasses to read/see far per daughter but device at home and will bring it over if resident condition gets better. Daughter signed [facility] resident care plan form and copy provided. Family thankful for the time and said resident is clean when they visited him at bedside. Called [facility] where resident was previously admitted to ask about vaccines, spoke with Kellen from medical records and confirmed resident received Flu shot on 10/20/18 while Pneumo vaccine given on 10/18/18.
[2018-12-24] MEDS: TRIMETHOPRIM GT SCH ×2 (10:00→21:50)
[2018-12-24] MEDS: HYDROCODONE/APAP 5/325MG 1 EACH TABLET GT SCH ×2 (10:00→21:48)
[2018-12-24] MEDS: SULFAMETHOXAZOLE GT SCH ×2 (10:00→21:50)
[2018-12-24] MEDS: DAKINS QUARTER STRENGTH (0.125%) 480 ML BOTTLE TOP SCH ×2 (10:30→22:00)
[2018-12-24] MEDS: Z GUARD REMEDY 4 OZ OINT TP SCH ×2 (10:30→22:00)
[2018-12-24] MEDS: BACI/NEOM/POLY B OINT PKT 1 UDPKT PACKET TP SCH ×2 (10:30→22:00)
[2018-12-24] MEDS: POVIDONE-IODINE OINT 28.4 GM TUBE TP SCH ×4 (10:30→22:00)
[2018-12-24] MEDS: VITS A AND D/WHITE PET/LANOLIN 5 GM PACKET TP SCH ×8 (10:30→21:56)
--- NOTE | 2018-12-24 11:28 | NUR ---
SW met with pt. daughter and to complete intake paperwork (patient's rights acknowledgement, documentation of preferred intensity of care, conditions of admission, [place] Standard Admission agreement and voluntary prior express consent form). SW educated the patient's family on advanced healthcare directives. pt. public service representative ( daughter) expressed she wanted pt to be full code (CPR with maximum treatment). SW educated family about conservatorship and family told SW they will file a petition in court to start the process. Admission papers were placed into the resident's chart.
--- NOTE | 2018-12-24 14:18 | NUR ---
RT NOTE PT MECHANICALLY VENTILATED VIA SHILEY CUFFED TRACHEOSTOMY TUBE. CUFF INFLATED. TRACH TUBE MIDLINE AND SECURE. VENTILATOR SETTINGS PRESCRIBED. ALARMS SET PER PROTOCOL AND AUDIBLE. VENT PLUGGED IN TO RED OUTLET. AMBU BAG AT BED SIDE. NO DISTRESS NOTED.
--- NOTE | 2018-12-24 14:19 | NUR ---
RT NOTE PT MECHANICALLY VENTILATED VIA CUFFED TRACHEOSTOMY TUBE. CUFF INFLATED. TRACH TUBE MIDLINE AND SECURE. VENTILATOR SETTINGS PRESCRIBED. ALARMS SET PER PROTOCOL AND AUDIBLE. VENT PLUGGED IN TO RED OUTLET. AMBU BAG AT BED SIDE. NO DISTRESS NOTED. Addendum: 12/24/18 at 1420 by HILLARY SANTACRUZ RT Amended: Links added.
[2018-12-24] MEDS ORDERED: HYDROGEN PEROXIDE 480 ML BOTTLE TP PRN (17:00)
[2018-12-24] MEDS ORDERED: METRONIDAZOLE 500 MG TABLET GT SCH (17:07)
--- NOTE | 2018-12-24 17:12 | NUR ---
Asked LOPEZ Buckley for the stop date of patient's antibiotic orders, she said she will review current ATB and place the order in [facility].
--- NOTE | 2018-12-24 17:40 | NUR ---
RT PATIENT REC'D FROM DIALYSIS. PT COMFORTABLE, NO SOB NOTED AT THIS TIME. TRACH TUBE PATENT AND SECURE. RESTAURANT AREA DIRECTOR DONE. SX'D WITH SMALL AMOUNT OF THIN WHITE SECRETIONS. VENT ALARMS ON AND AUDIBLE. BVM AND SPARE TRACH BY BEDSIDE, VENT PLUGGED IN RED OUTLET. WILL CONTINUE TO MONITOR. Addendum: 12/24/18 at 1742 by LESLY WARREN RT Amended: Links added.
[2018-12-24] MEDS: CEFEPIME 1 GM in IV D5W 50 ML IV SCH (18:00)
--- NOTE | 2018-12-24 18:00 | NUR ---
Resident came back from dialysis, no respiratory distress noted, vital signs taken: blood sugar - 90, BP 129/67, HR 98, kept comfortable, skin dry and clean.
[2018-12-24] MEDS: METRONIDAZOLE 500 MG TABLET GT SCH (21:29)
[2018-12-24] MEDS: FENOFIBRATE NANOCRYS (145 MG) 145 MG TABLET GT SCH (21:53)
[2018-12-24] MEDS: HYDROGEN PEROXIDE 480 ML BOTTLE TP SCH (22:00)
[2018-12-25] VITALS (10 sets, daily range): BP systolic 120–144; BP diastolic 64–76
[2018-12-25] MEDS: METRONIDAZOLE 500 MG TABLET GT SCH ×3 (05:00→21:28)
[2018-12-25] MEDS: BLOOD SUGAR DIAGNOSTIC 1 EACH STRIP IN SCH ×4 (06:11→23:44)
[2018-12-25] MEDS: POLYVINYL ALCOHOL 15 ML BOTTLE EACHEYE SCH ×4 (06:11→23:34)
[2018-12-25] MEDS: [UNRECOGNIZED DRUG - OTHER] SQ PRN ×3 (06:11→23:45)
[2018-12-25] MEDS: METOCLOPRAMIDE HCL 10 MG TABLET GT SCH ×4 (06:11→23:34)
[2018-12-25] MEDS ORDERED: ERGOCALCIFEROL (VITAMIN D 2) 50,000 UNIT CAPSULE GT SCH (07:00)
[2018-12-25] MEDS: BASAGLAR KWIKPEN SQ SCH ×2 (09:00→21:35)
[2018-12-25] MEDS: OMEPRAZOLE 20 MG CAPSULE.DR GT SCH (09:00)
[2018-12-25] MEDS: ZINC SULFATE 220 MG CAPSULE GT SCH (09:00)
[2018-12-25] MEDS: ASCORBIC ACID 500 MG TABLET GT SCH (09:00)
[2018-12-25] MEDS: PROSOURCE / PROSTAT (PYXIS) 30 ML UDC GT SCH ×3 (09:00→17:00)
[2018-12-25] MEDS: VIT B CMPLX 3/FA/VIT C/BIOTIN 1 TAB TABLET GT SCH (09:00)
[2018-12-25] MEDS: SUCRALFATE 1 G/10 ML UDC GT SCH (09:59)
[2018-12-25] MEDS: LACTOBACILLUS RHAMNOSUS GG 1 EACH CAP.SPRINK GT SCH ×2 (09:59→17:00)
[2018-12-25] MEDS: TRIMETHOPRIM GT SCH ×2 (10:00→21:36)
[2018-12-25] MEDS: METOPROLOL TARTRATE 50 MG TABLET GT SCH ×2 (10:00→21:34)
[2018-12-25] MEDS: SULFAMETHOXAZOLE GT SCH ×2 (10:00→21:36)
[2018-12-25] MEDS: HYDROCODONE/APAP 5/325MG 1 EACH TABLET GT SCH ×2 (14:45→21:42)
[2018-12-25] MEDS: ONDANSETRON 4 MG TAB.RAPDIS GT PRN ×2 (15:00→22:11)
[2018-12-25] MEDS: DAKINS QUARTER STRENGTH (0.125%) 480 ML BOTTLE TOP SCH ×2 (15:15→22:00)
[2018-12-25] MEDS: POVIDONE-IODINE OINT 28.4 GM TUBE TP SCH ×4 (15:15→22:00)
[2018-12-25] MEDS: HYDROGEN PEROXIDE 480 ML BOTTLE TP SCH ×2 (15:15→22:00)
[2018-12-25] MEDS: Z GUARD REMEDY 4 OZ OINT TP SCH ×2 (15:15→22:00)
[2018-12-25] MEDS: VITS A AND D/WHITE PET/LANOLIN 5 GM PACKET TP SCH ×8 (15:15→22:00)
[2018-12-25] MEDS: BACI/NEOM/POLY B OINT PKT 1 UDPKT PACKET TP SCH ×2 (15:15→22:00)
[2018-12-25] MEDS: CEFEPIME 1 GM in IV D5W 50 ML IV SCH (18:00)
[2018-12-25] MEDS: NEPRO 1,000 ML BOTTLE GT PRN (18:53)
--- NOTE | 2018-12-25 19:37 | NUR ---
Resident had episode of vomiting with medium yellowish G-tube feeding color at around 1500 while DIRECTOR FACILITIES MAINTENANCE doing care, elevated bed at high coleman position, no aspiration noted at this time, PRN Zofran 4 mg given via G-tube per MD order, medication effective post one hour, no respiratory distress noted, calm and relaxed, endorsed to next shift and charge nurse made aware, continue monitoring.
[2018-12-25] MEDS: FENOFIBRATE NANOCRYS (145 MG) 145 MG TABLET GT SCH (21:36)
--- NOTE | 2018-12-25 22:00 | NUR ---
patient had episode of vomiting medium amount of feeding type in color. HOB elevated. suctioning of the mouth done. PRN zofran given by primary nurse as ordered. no respiratory distress noted. gtube feeding held and will continue to monitor.
--- NOTE | 2018-12-25 22:10 | NUR ---
PRN Zofran given via g tube due to emesis. HOB up at 45 degrees. Will closely monitor. Family at bedside.
--- NOTE | 2018-12-25 23:20 | NUR ---
Patient appears calm without any sign of resp distress. Residual checked, none noted. GT feeding resume, will continue to monitor.
[2018-12-26] VITALS (7 sets, daily range): BP systolic 113–157; BP diastolic 65–73
[2018-12-26] MEDS: POLYVINYL ALCOHOL 15 ML BOTTLE EACHEYE SCH ×4 (05:20→23:58)
[2018-12-26] MEDS: METRONIDAZOLE 500 MG TABLET GT SCH ×3 (05:20→21:13)
[2018-12-26] MEDS: METOCLOPRAMIDE HCL 10 MG TABLET GT SCH ×4 (05:20→23:58)
[2018-12-26] MEDS: [UNRECOGNIZED DRUG - OTHER] SQ PRN (05:35)
[2018-12-26] MEDS: BLOOD SUGAR DIAGNOSTIC 1 EACH STRIP IN SCH ×4 (05:35→23:59)
--- NOTE | 2018-12-26 06:59 | NUR ---
NO emesis noted at this time, Tolerating GT feeding, kept HOB up at 45 degrees. Kept comfortable.
[2018-12-26] MEDS: VITS A AND D/WHITE PET/LANOLIN 5 GM PACKET TP SCH ×8 (09:00→21:15)
[2018-12-26] MEDS: BACI/NEOM/POLY B OINT PKT 1 UDPKT PACKET TP SCH ×2 (09:00→21:15)
[2018-12-26] MEDS: POVIDONE-IODINE OINT 28.4 GM TUBE TP SCH ×4 (09:00→21:14)
[2018-12-26] MEDS: Z GUARD REMEDY 4 OZ OINT TP SCH ×2 (09:00→21:15)
[2018-12-26] MEDS: HYDROGEN PEROXIDE 480 ML BOTTLE TP SCH ×2 (09:00→21:15)
[2018-12-26] MEDS: DAKINS QUARTER STRENGTH (0.125%) 480 ML BOTTLE TOP SCH ×2 (09:00→21:14)
[2018-12-26] MEDS: LACTOBACILLUS RHAMNOSUS GG 1 EACH CAP.SPRINK GT SCH ×2 (09:23→17:00)
[2018-12-26] MEDS: METOPROLOL TARTRATE 50 MG TABLET GT SCH ×2 (09:23→21:14)
[2018-12-26] MEDS: SUCRALFATE 1 G/10 ML UDC GT SCH (09:23)
[2018-12-26] MEDS: ASCORBIC ACID 500 MG TABLET GT SCH (09:24)
[2018-12-26] MEDS: HYDROCODONE/APAP 5/325MG 1 EACH TABLET GT SCH ×2 (09:24→21:14)
[2018-12-26] MEDS: ZINC SULFATE 220 MG CAPSULE GT SCH (09:24)
[2018-12-26] MEDS: OMEPRAZOLE 20 MG CAPSULE.DR GT SCH (09:24)
[2018-12-26] MEDS: VIT B CMPLX 3/FA/VIT C/BIOTIN 1 TAB TABLET GT SCH (09:24)
[2018-12-26] MEDS: PROSOURCE / PROSTAT (PYXIS) 30 ML UDC GT SCH ×3 (09:24→17:00)
[2018-12-26] MEDS: TRIMETHOPRIM GT SCH ×2 (09:25→21:15)
[2018-12-26] MEDS: BASAGLAR KWIKPEN SQ SCH ×2 (09:25→21:14)
[2018-12-26] MEDS: SULFAMETHOXAZOLE GT SCH ×2 (09:25→21:15)
[2018-12-26] MEDS: CEFEPIME 1 GM in IV D5W 50 ML IV SCH (18:26)
--- NOTE | 2018-12-26 18:40 | NUR ---
[place] resident's ventilator alarming, REGISTRAR NURSES' REGISTRY changing and repositioning patient. Noted dialysis access site in the R chest wall wet, per REGISTRAR NURSES' REGISTRY patient vomited small amount of formula like emesis. Patient observed to have shallow breathing , immediately increased Fi02 to 100% and suctioned patient orally and through his trach. No s/s of aspiration noted. V/S 141/95, 109, 100%, 98.8, RR 24. RT was called to the room, reassess patient and gave breathing treatment. RN assigned notified of vomiting episode. Endorsed to monitor patient's condition.
[2018-12-26] MEDS: ALBUTEROL HALF STRENGTH 1.25 MG/3 ML VIAL.NEB NEB PRN (19:23)
[2018-12-26] MEDS: FENOFIBRATE NANOCRYS (145 MG) 145 MG TABLET GT SCH (21:16)
[2018-12-27] VITALS (7 sets, daily range): BP systolic 115–160; BP diastolic 60–79
[2018-12-27] MEDS: METOCLOPRAMIDE HCL 10 MG TABLET GT SCH ×3 (05:48→18:26)
[2018-12-27] MEDS: METRONIDAZOLE 500 MG TABLET GT SCH ×3 (05:48→21:32)
[2018-12-27] MEDS: POLYVINYL ALCOHOL 15 ML BOTTLE EACHEYE SCH ×3 (05:48→18:26)
[2018-12-27] MEDS: BLOOD SUGAR DIAGNOSTIC 1 EACH STRIP IN SCH ×4 (05:48→21:34)
[2018-12-27] MEDS: POVIDONE-IODINE OINT 28.4 GM TUBE TP SCH ×4 (09:00→21:33)
[2018-12-27] MEDS: DAKINS QUARTER STRENGTH (0.125%) 480 ML BOTTLE TOP SCH ×2 (09:00→21:33)
[2018-12-27] MEDS: Z GUARD REMEDY 4 OZ OINT TP SCH ×2 (09:00→21:33)
[2018-12-27] MEDS: OMEPRAZOLE 20 MG CAPSULE.DR GT SCH (09:00)
[2018-12-27] MEDS: PROSOURCE / PROSTAT (PYXIS) 30 ML UDC GT SCH ×3 (09:00→18:00)
[2018-12-27] MEDS: METOPROLOL TARTRATE 50 MG TABLET GT SCH ×2 (09:00→21:32)
[2018-12-27] MEDS: BASAGLAR KWIKPEN SQ SCH ×2 (09:00→21:33)
[2018-12-27] MEDS: VIT B CMPLX 3/FA/VIT C/BIOTIN 1 TAB TABLET GT SCH (09:00)
[2018-12-27] MEDS: ASCORBIC ACID 500 MG TABLET GT SCH (09:00)
[2018-12-27] MEDS: ZINC SULFATE 220 MG CAPSULE GT SCH (09:00)
[2018-12-27] MEDS: SUCRALFATE 1 G/10 ML UDC GT SCH (09:00)
[2018-12-27] MEDS: LACTOBACILLUS RHAMNOSUS GG 1 EACH CAP.SPRINK GT SCH ×2 (09:00→18:00)
[2018-12-27] MEDS: VITS A AND D/WHITE PET/LANOLIN 5 GM PACKET TP SCH ×8 (09:00→21:34)
[2018-12-27] MEDS: HYDROGEN PEROXIDE 480 ML BOTTLE TP SCH ×2 (09:00→21:33)
[2018-12-27] MEDS: BACI/NEOM/POLY B OINT PKT 1 UDPKT PACKET TP SCH ×2 (09:00→21:33)
[2018-12-27] MEDS: HYDROCODONE/APAP 5/325MG 1 EACH TABLET GT SCH ×2 (09:00→21:32)
[2018-12-27] MEDS: SULFAMETHOXAZOLE GT SCH ×2 (10:00→21:34)
[2018-12-27] MEDS: TRIMETHOPRIM GT SCH ×2 (10:00→21:34)
--- NOTE | 2018-12-27 11:15 | NUR ---
RADHA communicated to pt. sister Christine about IDT mtg this Thursday12/31/2018. Christine will be attending it.
[2018-12-27] MEDS: NEPRO 1,000 ML BOTTLE GT PRN (12:28)
[2018-12-27] MEDS: [UNRECOGNIZED DRUG - OTHER] SQ PRN (12:41)
[2018-12-27] MEDS ORDERED: DEXTROSE 50%-WATER 50 ML DISP.SYRIN IV PRN (16:00)
[2018-12-27] MEDS: CEFEPIME 1 GM in IV D5W 50 ML IV SCH (18:00)
--- NOTE | 2018-12-27 18:30 | NUR ---
Seen and examined by Joan Phipps NP, no new order given.
[2018-12-27] MEDS: FENOFIBRATE NANOCRYS (145 MG) 145 MG TABLET GT SCH (21:34)
[2018-12-28] VITALS (7 sets, daily range): BP systolic 110–158; BP diastolic 65–84
[2018-12-28] MEDS: METOCLOPRAMIDE HCL 10 MG TABLET GT SCH ×4 (00:25→17:45)
[2018-12-28] MEDS: POLYVINYL ALCOHOL 15 ML BOTTLE EACHEYE SCH ×4 (00:25→17:45)
[2018-12-28] MEDS: BLOOD SUGAR DIAGNOSTIC 1 EACH STRIP IN SCH ×3 (04:00→17:45)
[2018-12-28] MEDS: METRONIDAZOLE 500 MG TABLET GT SCH ×3 (05:56→21:41)
[2018-12-28] MEDS: INSULIN ASPART/LISPRO 100 UNIT/ML CARTRIDGE SQ PRN ×3 (05:57→17:44)
[2018-12-28] MEDS: VIT B CMPLX 3/FA/VIT C/BIOTIN 1 TAB TABLET GT SCH (08:43)
[2018-12-28] MEDS: METOPROLOL TARTRATE 50 MG TABLET GT SCH ×2 (08:43→21:41)
[2018-12-28] MEDS: LACTOBACILLUS RHAMNOSUS GG 1 EACH CAP.SPRINK GT SCH ×2 (08:43→16:57)
[2018-12-28] MEDS: SUCRALFATE 1 G/10 ML UDC GT SCH (08:43)
[2018-12-28] MEDS: ASCORBIC ACID 500 MG TABLET GT SCH (08:44)
[2018-12-28] MEDS: OMEPRAZOLE 20 MG CAPSULE.DR GT SCH (08:44)
[2018-12-28] MEDS: BASAGLAR KWIKPEN SQ SCH ×2 (08:44→21:41)
[2018-12-28] MEDS: PROSOURCE / PROSTAT (PYXIS) 30 ML UDC GT SCH ×3 (08:44→16:57)
[2018-12-28] MEDS: ZINC SULFATE 220 MG CAPSULE GT SCH (08:44)
[2018-12-28] MEDS: POVIDONE-IODINE OINT 28.4 GM TUBE TP SCH ×4 (09:00→21:42)
[2018-12-28] MEDS: DAKINS QUARTER STRENGTH (0.125%) 480 ML BOTTLE TOP SCH ×2 (09:00→21:42)
[2018-12-28] MEDS: BACI/NEOM/POLY B OINT PKT 1 UDPKT PACKET TP SCH ×2 (09:00→21:42)
[2018-12-28] MEDS: Z GUARD REMEDY 4 OZ OINT TP SCH ×2 (09:00→21:42)
[2018-12-28] MEDS: VITS A AND D/WHITE PET/LANOLIN 5 GM PACKET TP SCH ×8 (09:00→21:42)
[2018-12-28] MEDS: HYDROGEN PEROXIDE 480 ML BOTTLE TP SCH ×2 (09:00→21:42)
--- NOTE | 2018-12-28 09:00 | NUR ---
Seen and examined by Dr. Rocha, no new order given.
[2018-12-28] MEDS: HYDROCODONE/APAP 5/325MG 1 EACH TABLET GT SCH ×2 (10:00→21:41)
[2018-12-28] MEDS: TRIMETHOPRIM GT SCH ×2 (10:00→21:43)
[2018-12-28] MEDS: SULFAMETHOXAZOLE GT SCH ×2 (10:00→21:43)
[2018-12-28] MEDS: NEPRO 1,000 ML BOTTLE GT PRN (16:56)
[2018-12-28] MEDS: CEFEPIME 1 GM in IV D5W 50 ML IV SCH (18:31)
[2018-12-28] MEDS: FENOFIBRATE NANOCRYS (145 MG) 145 MG TABLET GT SCH (21:43)
[2018-12-29] VITALS (9 sets, daily range): BP systolic 99–149; BP diastolic 61–76
[2018-12-29] MEDS: POLYVINYL ALCOHOL 15 ML BOTTLE EACHEYE SCH ×4 (00:26→18:02)
[2018-12-29] MEDS: METOCLOPRAMIDE HCL 10 MG TABLET GT SCH ×4 (00:26→18:02)
[2018-12-29] MEDS: BLOOD SUGAR DIAGNOSTIC 1 EACH STRIP IN SCH ×4 (00:26→18:02)
[2018-12-29] MEDS: INSULIN ASPART/LISPRO 100 UNIT/ML CARTRIDGE SQ PRN ×3 (00:27→18:06)
[2018-12-29] MEDS: METRONIDAZOLE 500 MG TABLET GT SCH ×3 (05:45→21:24)
[2018-12-29] MEDS: BASAGLAR KWIKPEN SQ SCH ×2 (08:57→21:44)
[2018-12-29] MEDS: HYDROGEN PEROXIDE 480 ML BOTTLE TP SCH ×2 (09:00→21:45)
[2018-12-29] MEDS: POVIDONE-IODINE OINT 28.4 GM TUBE TP SCH ×4 (09:00→21:45)
[2018-12-29] MEDS: VITS A AND D/WHITE PET/LANOLIN 5 GM PACKET TP SCH ×8 (09:00→21:46)
[2018-12-29] MEDS: BACI/NEOM/POLY B OINT PKT 1 UDPKT PACKET TP SCH ×2 (09:00→21:45)
[2018-12-29] MEDS: DAKINS QUARTER STRENGTH (0.125%) 480 ML BOTTLE TOP SCH ×2 (09:00→21:45)
[2018-12-29] MEDS: Z GUARD REMEDY 4 OZ OINT TP SCH ×2 (09:00→21:46)
[2018-12-29] MEDS: SUCRALFATE 1 G/10 ML UDC GT SCH (09:07)
[2018-12-29] MEDS: LACTOBACILLUS RHAMNOSUS GG 1 EACH CAP.SPRINK GT SCH ×2 (09:07→17:00)
[2018-12-29] MEDS: OMEPRAZOLE 20 MG CAPSULE.DR GT SCH (09:08)
[2018-12-29] MEDS: ASCORBIC ACID 500 MG TABLET GT SCH (09:08)
[2018-12-29] MEDS: ZINC SULFATE 220 MG CAPSULE GT SCH (09:08)
[2018-12-29] MEDS: HYDROCODONE/APAP 5/325MG 1 EACH TABLET GT SCH ×2 (09:08→21:25)
[2018-12-29] MEDS: VIT B CMPLX 3/FA/VIT C/BIOTIN 1 TAB TABLET GT SCH (09:08)
[2018-12-29] MEDS: PROSOURCE / PROSTAT (PYXIS) 30 ML UDC GT SCH ×3 (09:08→17:00)
[2018-12-29] MEDS: METOPROLOL TARTRATE 50 MG TABLET GT SCH ×2 (09:08→21:25)
[2018-12-29] MEDS: SULFAMETHOXAZOLE GT SCH ×2 (10:00→21:25)
[2018-12-29] MEDS: TRIMETHOPRIM GT SCH ×2 (10:00→21:25)
--- NOTE | 2018-12-29 12:00 | NUR ---
@12n Resident was out of facility. Addendum: 12/29/18 at 1846 by RADHA GIMENEZ RN Amended: Links added.
[2018-12-29] MEDS: CEFEPIME 1 GM in IV D5W 50 ML IV SCH (18:47)
[2018-12-29] MEDS: FENOFIBRATE NANOCRYS (145 MG) 145 MG TABLET GT SCH (21:25)
[2018-12-30] VITALS (9 sets, daily range): BP systolic 106–142; BP diastolic 54–79
[2018-12-30] MEDS: BLOOD SUGAR DIAGNOSTIC 1 EACH STRIP IN SCH ×5 (00:31→23:48)
[2018-12-30] MEDS: METOCLOPRAMIDE HCL 10 MG TABLET GT SCH ×5 (00:31→23:48)
[2018-12-30] MEDS: POLYVINYL ALCOHOL 15 ML BOTTLE EACHEYE SCH ×5 (00:31→23:48)
[2018-12-30] MEDS: INSULIN ASPART/LISPRO 100 UNIT/ML CARTRIDGE SQ PRN ×5 (00:32→23:49)
[2018-12-30] MEDS: METRONIDAZOLE 500 MG TABLET GT SCH ×3 (05:36→21:01)
[2018-12-30] MEDS: NEPRO 1,000 ML BOTTLE GT PRN (05:36)
[2018-12-30] MEDS: BASAGLAR KWIKPEN SQ SCH ×2 (09:00→21:02)
[2018-12-30] MEDS: KETOCONAZOLE SHAMPOO 120 ML BOTTLE TP SCH (09:00)
[2018-12-30] MEDS: VIT B CMPLX 3/FA/VIT C/BIOTIN 1 TAB TABLET GT SCH (09:53)
[2018-12-30] MEDS: LACTOBACILLUS RHAMNOSUS GG 1 EACH CAP.SPRINK GT SCH ×2 (09:53→17:38)
[2018-12-30] MEDS: SUCRALFATE 1 G/10 ML UDC GT SCH (09:53)
[2018-12-30] MEDS: PROSOURCE / PROSTAT (PYXIS) 30 ML UDC GT SCH ×3 (09:54→17:38)
[2018-12-30] MEDS: HYDROCODONE/APAP 5/325MG 1 EACH TABLET GT SCH ×2 (09:54→21:02)
[2018-12-30] MEDS: ASCORBIC ACID 500 MG TABLET GT SCH (09:54)
[2018-12-30] MEDS: ZINC SULFATE 220 MG CAPSULE GT SCH (09:54)
[2018-12-30] MEDS: OMEPRAZOLE 20 MG CAPSULE.DR GT SCH (09:54)
[2018-12-30] MEDS: METOPROLOL TARTRATE 50 MG TABLET GT SCH ×2 (09:55→21:02)
[2018-12-30] MEDS: SULFAMETHOXAZOLE GT SCH ×2 (10:08→21:05)
[2018-12-30] MEDS: TRIMETHOPRIM GT SCH ×2 (10:08→21:05)
[2018-12-30] MEDS: DAKINS QUARTER STRENGTH (0.125%) 480 ML BOTTLE TOP SCH ×2 (10:30→21:03)
[2018-12-30] MEDS: HYDROGEN PEROXIDE 480 ML BOTTLE TP SCH ×2 (10:30→21:04)
[2018-12-30] MEDS: BACI/NEOM/POLY B OINT PKT 1 UDPKT PACKET TP SCH ×2 (10:30→21:04)
[2018-12-30] MEDS: Z GUARD REMEDY 4 OZ OINT TP SCH ×2 (10:30→21:04)
[2018-12-30] MEDS: POVIDONE-IODINE OINT 28.4 GM TUBE TP SCH ×4 (10:30→21:03)
[2018-12-30] MEDS: VITAMINS A AND D 56.7 GM TUBE TP SCH ×5 (15:56→21:05)
[2018-12-30] MEDS: CEFEPIME 1 GM in IV D5W 50 ML IV SCH (18:00)
[2018-12-30] MEDS: FENOFIBRATE NANOCRYS (145 MG) 145 MG TABLET GT SCH (21:05)
[2018-12-31 05:08] VITALS: BP 120/74
[2018-12-31] MEDS: METOCLOPRAMIDE HCL 10 MG TABLET GT SCH ×3 (05:15→17:31)
[2018-12-31] MEDS: METRONIDAZOLE 500 MG TABLET GT SCH ×3 (05:15→20:33)
[2018-12-31] MEDS: POLYVINYL ALCOHOL 15 ML BOTTLE EACHEYE SCH ×3 (05:15→17:31)
[2018-12-31] MEDS: BLOOD SUGAR DIAGNOSTIC 1 EACH STRIP IN SCH ×3 (05:33→17:50)
[2018-12-31] MEDS: INSULIN ASPART/LISPRO 100 UNIT/ML CARTRIDGE SQ PRN ×3 (05:35→17:51)
[2018-12-31 07:45] VITALS: BP 137/74
[2018-12-31] MEDS: BASAGLAR KWIKPEN SQ SCH ×2 (08:04→20:34)
[2018-12-31] MEDS: SUCRALFATE 1 G/10 ML UDC GT SCH (08:13)
[2018-12-31] MEDS: LACTOBACILLUS RHAMNOSUS GG 1 EACH CAP.SPRINK GT SCH ×2 (08:13→17:51)
[2018-12-31] MEDS: VIT B CMPLX 3/FA/VIT C/BIOTIN 1 TAB TABLET GT SCH (08:14)
[2018-12-31] MEDS: ZINC SULFATE 220 MG CAPSULE GT SCH (08:14)
[2018-12-31] MEDS: METOPROLOL TARTRATE 50 MG TABLET GT SCH ×2 (08:14→20:34)
[2018-12-31] MEDS: ASCORBIC ACID 500 MG TABLET GT SCH (08:14)
[2018-12-31] MEDS: OMEPRAZOLE 20 MG CAPSULE.DR GT SCH (08:14)
[2018-12-31] MEDS: PROSOURCE / PROSTAT (PYXIS) 30 ML UDC GT SCH ×3 (08:14→17:31)
[2018-12-31] MEDS: POVIDONE-IODINE OINT 28.4 GM TUBE TP SCH ×4 (09:00→20:35)
[2018-12-31] MEDS: Z GUARD REMEDY 4 OZ OINT TP SCH ×2 (09:00→20:35)
[2018-12-31] MEDS: VITAMINS A AND D 56.7 GM TUBE TP SCH ×8 (09:00→20:36)
[2018-12-31] MEDS: HYDROCODONE/APAP 5/325MG 1 EACH TABLET GT SCH ×2 (09:00→20:34)
[2018-12-31] MEDS: BACI/NEOM/POLY B OINT PKT 1 UDPKT PACKET TP SCH ×2 (09:00→20:35)
[2018-12-31] MEDS: HYDROGEN PEROXIDE 480 ML BOTTLE TP SCH ×2 (09:00→20:35)
[2018-12-31] MEDS: DAKINS QUARTER STRENGTH (0.125%) 480 ML BOTTLE TOP SCH ×2 (09:00→20:35)
[2018-12-31] MEDS: SULFAMETHOXAZOLE GT SCH ×2 (10:00→21:24)
[2018-12-31] MEDS: TRIMETHOPRIM GT SCH ×2 (10:00→21:24)
[2018-12-31] MEDS: NEPRO 1,000 ML BOTTLE GT PRN (10:03)
[2018-12-31 11:55] VITALS: BP 137/74
--- NOTE | 2018-12-31 13:00 | NUR ---
12/31/18 @1300 Patient out from facility no vital signs were taken at 1300. Addendum: 12/31/18 at 1432 by RADHA GIMENEZ RN Amended: Links added.
--- NOTE | 2018-12-31 13:00 | NUR ---
NO VITAL TAKEN AT 1300, PATIENT OUT OF FACILITY. Addendum: 12/31/18 at 1834 by RADHA GIMENEZ RN Amended: Links added.
--- NOTE | 2018-12-31 16:33 | NUR ---
INTERDISCIPLINARY TEAM CONFERENCE (IDT) was held today. Resident's sister Christine was not able to attend today's IDT meeting. Dr. Rocha and the interdisciplinary team reviewed the current plan of care in detail. Orders as well as treatment and medications were reviewed. Resident has a dental exam done by Dr. Darren ESCOBAR on Myy 13. No new orders were given.
[2018-12-31 17:00] VITALS: BP 139/89
[2018-12-31] MEDS: CEFEPIME 1 GM in IV D5W 50 ML IV SCH (17:44)
[2018-12-31 19:54] VITALS: BP 121/69
[2018-12-31] MEDS: FENOFIBRATE NANOCRYS (145 MG) 145 MG TABLET GT SCH (21:24)
[2018-12-31 22:23] VITALS: BP 129/77
[2019-01-01] VITALS (7 sets, daily range): BP systolic 105–152; BP diastolic 65–88
[2019-01-01] MEDS: METOCLOPRAMIDE HCL 10 MG TABLET GT SCH ×5 (00:09→23:25)
[2019-01-01] MEDS: BLOOD SUGAR DIAGNOSTIC 1 EACH STRIP IN SCH ×5 (00:09→23:25)
[2019-01-01] MEDS: INSULIN ASPART/LISPRO 100 UNIT/ML CARTRIDGE SQ PRN ×5 (00:10→23:25)
[2019-01-01] MEDS: POLYVINYL ALCOHOL 15 ML BOTTLE EACHEYE SCH ×5 (00:11→23:25)
[2019-01-01] MEDS: METRONIDAZOLE 500 MG TABLET GT SCH ×3 (05:39→21:20)
--- NOTE | 2019-01-01 05:45 | NUR ---
pt rec'd trached on [facility] vent on ac mode. no resp distress or sob noted. sx'd for mod amt of yellow secretions. alarms are set and audible. vent plugged into red outlet. ambu bag bedside. will continue to monitor Addendum: 01/01/19 at 0545 by MANISH DOMINGUEZ RT Amended: Links added.
[2019-01-01] MEDS: BACI/NEOM/POLY B OINT PKT 1 UDPKT PACKET TP SCH ×2 (09:00→21:22)
[2019-01-01] MEDS: HYDROGEN PEROXIDE 480 ML BOTTLE TP SCH ×2 (09:00→21:22)
[2019-01-01] MEDS: VIT B CMPLX 3/FA/VIT C/BIOTIN 1 TAB TABLET GT SCH (09:00)
[2019-01-01] MEDS: PROSOURCE / PROSTAT (PYXIS) 30 ML UDC GT SCH ×3 (09:00→17:00)
[2019-01-01] MEDS: POVIDONE-IODINE OINT 28.4 GM TUBE TP SCH ×4 (09:00→21:21)
[2019-01-01] MEDS: DAKINS QUARTER STRENGTH (0.125%) 480 ML BOTTLE TOP SCH ×2 (09:00→21:21)
[2019-01-01] MEDS: METOPROLOL TARTRATE 50 MG TABLET GT SCH ×2 (09:00→21:20)
[2019-01-01] MEDS: OMEPRAZOLE 20 MG CAPSULE.DR GT SCH (09:00)
[2019-01-01] MEDS: ASCORBIC ACID 500 MG TABLET GT SCH (09:00)
[2019-01-01] MEDS: SUCRALFATE 1 G/10 ML UDC GT SCH (09:00)
[2019-01-01] MEDS: HYDROCODONE/APAP 5/325MG 1 EACH TABLET GT SCH ×2 (09:00→21:21)
[2019-01-01] MEDS: BASAGLAR KWIKPEN SQ SCH ×2 (09:00→21:21)
[2019-01-01] MEDS: Z GUARD REMEDY 4 OZ OINT TP SCH ×2 (09:00→21:22)
[2019-01-01] MEDS: VITAMINS A AND D 56.7 GM TUBE TP SCH ×8 (09:00→21:22)
[2019-01-01] MEDS: ZINC SULFATE 220 MG CAPSULE GT SCH (09:00)
[2019-01-01] MEDS: LACTOBACILLUS RHAMNOSUS GG 1 EACH CAP.SPRINK GT SCH ×2 (09:00→17:00)
[2019-01-01] MEDS: SULFAMETHOXAZOLE GT SCH ×2 (10:00→21:22)
[2019-01-01] MEDS: TRIMETHOPRIM GT SCH ×2 (10:00→21:22)
--- NOTE | 2019-01-01 16:00 | NUR ---
RT NOTE: PATIENT RECEIVED TRACH ON MECHANICAL VENT. ALARMS VERIFIED AND AUDIBLE. SUCTIONED AND LAVAGED THICK DWYER SECRETIONS. @1550 VOMITING AFTER SUCTIONING. PATIENT SITTING UP. NURSE NOTIFIED. AMBU BAG AND NEW TRACH AT BEDSIDE.
[2019-01-01] MEDS: CEFEPIME 1 GM in IV D5W 50 ML IV SCH (17:52)
[2019-01-01] MEDS: NEPRO 1,000 ML BOTTLE GT PRN (18:34)
--- NOTE | 2019-01-01 18:40 | NUR ---
Referred to LOPEZ Mcfarland, GI regarding episode of vomiting and gastric residual. NNO given at this time, but to continue with Reglan GT and Zofran PRN.
--- NOTE | 2019-01-01 18:50 | NUR ---
Spoke with GARRY Little from [facility] to clarify television announcer's recommendations. According to Anabel, on 12/29/18 television announcer Mandy, recommended NeutraPhos BID due to Phosphorus level of 1.5, and Prostat 30 ml. TID due to Albumin 2.3 and [address] healing[address] Notified Dr. Dia and agreed with the recommendations. Endorsed to incoming shift.
[2019-01-01] MEDS: ONDANSETRON 4 MG TAB.RAPDIS GT PRN (19:28)
[2019-01-01] MEDS: FENOFIBRATE NANOCRYS (145 MG) 145 MG TABLET GT SCH (21:22)
[2019-01-02 01:28] VITALS: BP 122/76
--- NOTE | 2019-01-02 05:12 | NUR ---
PT REC'D TRACHED ON [facility] VENT PER MD ORDERS. NO RESP DISTRESS OR SOB NOTED. SX'D FOR MOD AMT OF PALE YELLOW SECRETIONS. ALARMS ARE SET AND AUDIBLE. VENT PLUGGED INTO RED OUTLET. AMBU BAG BEDSIDE. WILL CONTINUE TO MONITOR. Addendum: 01/02/19 at 0513 by MANISH DOMINGUEZ RT Amended: Links added.
[2019-01-02 05:25] VITALS: BP 117/63
[2019-01-02] MEDS: POLYVINYL ALCOHOL 15 ML BOTTLE EACHEYE SCH ×3 (05:25→18:23)
[2019-01-02] MEDS: METRONIDAZOLE 500 MG TABLET GT SCH ×3 (05:25→21:13)
[2019-01-02] MEDS: BLOOD SUGAR DIAGNOSTIC 1 EACH STRIP IN SCH ×3 (05:26→18:23)
[2019-01-02] MEDS: METOCLOPRAMIDE HCL 10 MG TABLET GT SCH ×3 (05:26→18:23)
[2019-01-02] MEDS: INSULIN ASPART/LISPRO 100 UNIT/ML CARTRIDGE SQ PRN ×2 (05:27→13:06)
[2019-01-02 08:00] VITALS: BP 125/64
--- NOTE | 2019-01-02 09:02 | NUR ---
RT PT REC'D TRACH ON [facility] VENT ON NOTED SETTINGS PER MD ORDERS. TRACH IS PATENT AND SECURED. ADVERTISING LAYOUT WORKER DONE. SX DONE PRN. VENT PLUGGED INTO RED OUTLET. ALARMS ON AND AUDIBLE. COLTON TORRES @ BEDSIDE. NO RESP DISTRESS AT THIS TIME. WILL CONTINUE TO MONITOR. Addendum: 01/02/19 at 0902 by LESLY WARREN RT Amended: Links added.
[2019-01-02] MEDS: LACTOBACILLUS RHAMNOSUS GG 1 EACH CAP.SPRINK GT SCH ×2 (09:54→17:34)
[2019-01-02] MEDS: SUCRALFATE 1 G/10 ML UDC GT SCH (09:54)
[2019-01-02] MEDS: VIT B CMPLX 3/FA/VIT C/BIOTIN 1 TAB TABLET GT SCH (09:54)
[2019-01-02] MEDS: METOPROLOL TARTRATE 50 MG TABLET GT SCH ×2 (09:54→21:14)
[2019-01-02] MEDS: BASAGLAR KWIKPEN SQ SCH ×2 (09:55→21:14)
[2019-01-02] MEDS: HYDROCODONE/APAP 5/325MG 1 EACH TABLET GT SCH ×2 (09:55→21:14)
[2019-01-02] MEDS: OMEPRAZOLE 20 MG CAPSULE.DR GT SCH (09:55)
[2019-01-02] MEDS: DAKINS QUARTER STRENGTH (0.125%) 480 ML BOTTLE TOP SCH ×2 (09:55→21:15)
[2019-01-02] MEDS: ZINC SULFATE 220 MG CAPSULE GT SCH (09:55)
[2019-01-02] MEDS: PROSOURCE / PROSTAT (PYXIS) 30 ML UDC GT SCH ×3 (09:55→17:34)
[2019-01-02] MEDS: ASCORBIC ACID 500 MG TABLET GT SCH (09:55)
[2019-01-02] MEDS: VITAMINS A AND D 56.7 GM TUBE TP SCH ×8 (09:56→21:17)
[2019-01-02] MEDS: BACI/NEOM/POLY B OINT PKT 1 UDPKT PACKET TP SCH ×2 (09:56→21:16)
[2019-01-02] MEDS: Z GUARD REMEDY 4 OZ OINT TP SCH ×2 (09:56→21:17)
[2019-01-02] MEDS: HYDROGEN PEROXIDE 480 ML BOTTLE TP SCH ×2 (09:56→21:16)
[2019-01-02] MEDS: POVIDONE-IODINE OINT 28.4 GM TUBE TP SCH ×4 (09:56→21:16)
[2019-01-02] MEDS: TRIMETHOPRIM GT SCH ×2 (10:00→21:22)
[2019-01-02] MEDS: SULFAMETHOXAZOLE GT SCH ×2 (10:00→21:22)
[2019-01-02 17:47] VITALS: BP 128/65
[2019-01-02] MEDS: CEFEPIME 1 GM in IV D5W 50 ML IV SCH (18:00)
[2019-01-02 20:16] VITALS: BP 127/54
[2019-01-02 21:00] VITALS: BP 127/54
[2019-01-02] MEDS: FENOFIBRATE NANOCRYS (145 MG) 145 MG TABLET GT SCH (21:22)
[2019-01-02] MEDS: NEPRO 1,000 ML BOTTLE GT PRN (21:23)
[2019-01-03] VITALS (7 sets, daily range): BP systolic 120–145; BP diastolic 56–79
[2019-01-03] MEDS: METOCLOPRAMIDE HCL 10 MG TABLET GT SCH ×5 (00:30→23:17)
[2019-01-03] MEDS: POLYVINYL ALCOHOL 15 ML BOTTLE EACHEYE SCH ×5 (00:30→23:17)
[2019-01-03] MEDS: BLOOD SUGAR DIAGNOSTIC 1 EACH STRIP IN SCH ×5 (00:31→23:17)
[2019-01-03] MEDS: INSULIN ASPART/LISPRO 100 UNIT/ML CARTRIDGE SQ PRN ×5 (00:33→23:18)
[2019-01-03] MEDS: METRONIDAZOLE 500 MG TABLET GT SCH ×3 (05:51→20:58)
[2019-01-03] MEDS: SUCRALFATE 1 G/10 ML UDC GT SCH (09:21)
[2019-01-03] MEDS: VIT B CMPLX 3/FA/VIT C/BIOTIN 1 TAB TABLET GT SCH (09:22)
[2019-01-03] MEDS: LACTOBACILLUS RHAMNOSUS GG 1 EACH CAP.SPRINK GT SCH ×2 (09:22→17:35)
[2019-01-03] MEDS: HYDROCODONE/APAP 5/325MG 1 EACH TABLET GT SCH ×2 (09:22→20:58)
[2019-01-03] MEDS: METOPROLOL TARTRATE 50 MG TABLET GT SCH ×2 (09:22→20:58)
[2019-01-03] MEDS: ASCORBIC ACID 500 MG TABLET GT SCH (09:24)
[2019-01-03] MEDS: PROSOURCE / PROSTAT (PYXIS) 30 ML UDC GT SCH ×3 (09:24→17:59)
[2019-01-03] MEDS: OMEPRAZOLE 20 MG CAPSULE.DR GT SCH (09:24)
[2019-01-03] MEDS: ZINC SULFATE 220 MG CAPSULE GT SCH (09:25)
[2019-01-03] MEDS: BASAGLAR KWIKPEN SQ SCH ×2 (09:25→21:56)
[2019-01-03] MEDS: SULFAMETHOXAZOLE GT SCH ×2 (10:00→21:01)
[2019-01-03] MEDS: TRIMETHOPRIM GT SCH ×2 (10:00→21:01)
[2019-01-03] MEDS: Z GUARD REMEDY 4 OZ OINT TP SCH ×2 (10:22→21:47)
[2019-01-03] MEDS: DAKINS QUARTER STRENGTH (0.125%) 480 ML BOTTLE TOP SCH ×2 (10:22→21:46)
[2019-01-03] MEDS: POVIDONE-IODINE OINT 28.4 GM TUBE TP SCH ×4 (10:22→21:46)
[2019-01-03] MEDS: BACI/NEOM/POLY B OINT PKT 1 UDPKT PACKET TP SCH ×2 (10:22→21:47)
[2019-01-03] MEDS: VITAMINS A AND D 56.7 GM TUBE TP SCH ×8 (10:22→21:47)
[2019-01-03] MEDS: HYDROGEN PEROXIDE 480 ML BOTTLE TP SCH ×2 (10:22→21:46)
[2019-01-03] MEDS: CEFEPIME 1 GM in IV D5W 50 ML IV SCH (18:44)
[2019-01-03] MEDS: FENOFIBRATE NANOCRYS (145 MG) 145 MG TABLET GT SCH (21:01)
[2019-01-04] VITALS (8 sets, daily range): BP systolic 124–138; BP diastolic 58–85
[2019-01-04] MEDS: POLYVINYL ALCOHOL 15 ML BOTTLE EACHEYE SCH ×4 (05:56→23:47)
[2019-01-04] MEDS: METOCLOPRAMIDE HCL 10 MG TABLET GT SCH ×4 (05:56→23:47)
[2019-01-04] MEDS: METRONIDAZOLE 500 MG TABLET GT SCH ×3 (05:56→21:14)
[2019-01-04] MEDS: BLOOD SUGAR DIAGNOSTIC 1 EACH STRIP IN SCH ×4 (06:20→23:47)
[2019-01-04] MEDS: INSULIN ASPART/LISPRO 100 UNIT/ML CARTRIDGE SQ PRN ×4 (06:21→23:47)
[2019-01-04] MEDS: SUCRALFATE 1 G/10 ML UDC GT SCH (09:56)
[2019-01-04] MEDS: HYDROCODONE/APAP 5/325MG 1 EACH TABLET GT SCH ×2 (09:56→21:15)
[2019-01-04] MEDS: ASCORBIC ACID 500 MG TABLET GT SCH (09:56)
[2019-01-04] MEDS: PROSOURCE / PROSTAT (PYXIS) 30 ML UDC GT SCH ×3 (09:56→17:25)
[2019-01-04] MEDS: OMEPRAZOLE 20 MG CAPSULE.DR GT SCH (09:56)
[2019-01-04] MEDS: ZINC SULFATE 220 MG CAPSULE GT SCH (09:56)
[2019-01-04] MEDS: LACTOBACILLUS RHAMNOSUS GG 1 EACH CAP.SPRINK GT SCH ×2 (09:57→17:25)
[2019-01-04] MEDS: VIT B CMPLX 3/FA/VIT C/BIOTIN 1 TAB TABLET GT SCH (09:57)
[2019-01-04] MEDS: METOPROLOL TARTRATE 50 MG TABLET GT SCH ×2 (09:58→21:14)
[2019-01-04] MEDS: BASAGLAR KWIKPEN SQ SCH ×2 (09:59→21:35)
[2019-01-04] MEDS: TRIMETHOPRIM GT SCH ×2 (10:00→21:15)
[2019-01-04] MEDS: SULFAMETHOXAZOLE GT SCH ×2 (10:00→21:15)
[2019-01-04] MEDS: HYDROGEN PEROXIDE 480 ML BOTTLE TP SCH ×2 (10:30→21:58)
[2019-01-04] MEDS: POVIDONE-IODINE OINT 28.4 GM TUBE TP SCH ×4 (10:30→21:58)
[2019-01-04] MEDS: DAKINS QUARTER STRENGTH (0.125%) 480 ML BOTTLE TOP SCH ×2 (10:30→21:57)
[2019-01-04] MEDS: BACI/NEOM/POLY B OINT PKT 1 UDPKT PACKET TP SCH ×2 (10:30→21:58)
[2019-01-04] MEDS: Z GUARD REMEDY 4 OZ OINT TP SCH ×2 (10:30→21:58)
[2019-01-04] MEDS: VITAMINS A AND D 56.7 GM TUBE TP SCH ×8 (10:30→21:58)
[2019-01-04] MEDS: CEFEPIME 1 GM in IV D5W 50 ML IV SCH (18:00)
[2019-01-04] MEDS: ONDANSETRON 4 MG TAB.RAPDIS GT PRN (18:32)
[2019-01-04] MEDS: FENOFIBRATE NANOCRYS (145 MG) 145 MG TABLET GT SCH (21:15)
[2019-01-05] MEDS: POLYVINYL ALCOHOL 15 ML BOTTLE EACHEYE SCH ×3 (05:59→17:36)
[2019-01-05] MEDS: METRONIDAZOLE 500 MG TABLET GT SCH ×3 (05:59→21:07)
[2019-01-05] MEDS: METOCLOPRAMIDE HCL 10 MG TABLET GT SCH ×3 (05:59→17:36)
[2019-01-05 06:06] VITALS: BP 128/66
[2019-01-05] MEDS: BLOOD SUGAR DIAGNOSTIC 1 EACH STRIP IN SCH ×3 (06:20→17:36)
[2019-01-05] MEDS: INSULIN ASPART/LISPRO 100 UNIT/ML CARTRIDGE SQ PRN (06:20)
[2019-01-05 07:42] VITALS: BP 118/54
--- NOTE | 2019-01-05 08:32 | NUR ---
Left as message to SHIP MANAGER Aster Mcfarland regarding abdominal KUB result.
[2019-01-05] MEDS: HYDROGEN PEROXIDE 480 ML BOTTLE TP SCH ×2 (09:00→21:51)
[2019-01-05] MEDS: METOPROLOL TARTRATE 50 MG TABLET GT SCH ×2 (09:00→21:07)
[2019-01-05] MEDS: DAKINS QUARTER STRENGTH (0.125%) 480 ML BOTTLE TOP SCH ×2 (09:00→21:51)
[2019-01-05] MEDS: POVIDONE-IODINE OINT 28.4 GM TUBE TP SCH ×4 (09:00→21:51)
[2019-01-05] MEDS: VITAMINS A AND D 56.7 GM TUBE TP SCH ×8 (09:00→21:52)
[2019-01-05] MEDS: Z GUARD REMEDY 4 OZ OINT TP SCH ×2 (09:00→21:52)
[2019-01-05] MEDS: BACI/NEOM/POLY B OINT PKT 1 UDPKT PACKET TP SCH ×2 (09:00→21:52)
[2019-01-05] MEDS: VIT B CMPLX 3/FA/VIT C/BIOTIN 1 TAB TABLET GT SCH (09:23)
[2019-01-05] MEDS: LACTOBACILLUS RHAMNOSUS GG 1 EACH CAP.SPRINK GT SCH ×2 (09:23→17:36)
[2019-01-05] MEDS: SUCRALFATE 1 G/10 ML UDC GT SCH (09:23)
[2019-01-05] MEDS: OMEPRAZOLE 20 MG CAPSULE.DR GT SCH (09:24)
[2019-01-05] MEDS: ZINC SULFATE 220 MG CAPSULE GT SCH (09:24)
[2019-01-05] MEDS: ASCORBIC ACID 500 MG TABLET GT SCH (09:24)
[2019-01-05] MEDS: PROSOURCE / PROSTAT (PYXIS) 30 ML UDC GT SCH ×3 (09:24→17:36)
[2019-01-05] MEDS: HYDROCODONE/APAP 5/325MG 1 EACH TABLET GT SCH ×2 (09:24→21:08)
[2019-01-05] MEDS: BASAGLAR KWIKPEN SQ SCH ×2 (09:28→21:58)
[2019-01-05] MEDS: TRIMETHOPRIM GT SCH ×2 (10:00→21:08)
[2019-01-05] MEDS: SULFAMETHOXAZOLE GT SCH ×2 (10:00→21:08)
[2019-01-05] MEDS: CEFEPIME 1 GM in IV D5W 50 ML IV SCH (18:00)
[2019-01-05 18:27] VITALS: BP 118/54
--- NOTE | 2019-01-05 19:25 | NUR ---
Seen and examined by TIN CAN FEEDER Aster Mcfarland, said that she saw KUB result, NNO given.
[2019-01-05 20:14] VITALS: BP 122/72
--- NOTE | 2019-01-05 20:22 | NUR ---
RT NOTE PATIENT RECEIVED ON MECHANICAL VENTILATION. CUFF CHECKED VIA COIL TIER. VENT PLUGGED INTO RED OUTLET. ALARMS ON AND AUDIBLE. SX DONE, MODERATE THICK WHITE/YELLOW SECRETIONS NOTED. PATIENT STABLE. WILL MONITOR T/O SHIFT. Addendum: 01/05/19 at 2022 by MARCIA YOUNG RT Amended: Links added.
[2019-01-05] MEDS: FENOFIBRATE NANOCRYS (145 MG) 145 MG TABLET GT SCH (21:08)
[2019-01-05 21:16] VITALS: BP 122/72
[2019-01-06] VITALS (7 sets, daily range): BP systolic 118–137; BP diastolic 66–79
[2019-01-06] MEDS: BLOOD SUGAR DIAGNOSTIC 1 EACH STRIP IN SCH ×5 (00:33→23:56)
[2019-01-06] MEDS: METOCLOPRAMIDE HCL 10 MG TABLET GT SCH ×5 (00:33→23:19)
[2019-01-06] MEDS: POLYVINYL ALCOHOL 15 ML BOTTLE EACHEYE SCH ×5 (00:33→23:19)
[2019-01-06] MEDS: INSULIN ASPART/LISPRO 100 UNIT/ML CARTRIDGE SQ PRN ×4 (00:34→23:57)
[2019-01-06] MEDS: METRONIDAZOLE 500 MG TABLET GT SCH ×3 (05:49→20:44)
[2019-01-06] MEDS: POVIDONE-IODINE OINT 28.4 GM TUBE TP SCH ×4 (09:00→20:46)
[2019-01-06] MEDS: Z GUARD REMEDY 4 OZ OINT TP SCH ×2 (09:00→20:46)
[2019-01-06] MEDS: HYDROGEN PEROXIDE 480 ML BOTTLE TP SCH ×2 (09:00→20:46)
[2019-01-06] MEDS: BACI/NEOM/POLY B OINT PKT 1 UDPKT PACKET TP SCH ×2 (09:00→20:46)
[2019-01-06] MEDS: VITAMINS A AND D 56.7 GM TUBE TP SCH ×8 (09:00→20:46)
[2019-01-06] MEDS: DAKINS QUARTER STRENGTH (0.125%) 480 ML BOTTLE TOP SCH ×2 (09:00→20:45)
[2019-01-06] MEDS: KETOCONAZOLE SHAMPOO 120 ML BOTTLE TP SCH (09:00)
[2019-01-06] MEDS: SUCRALFATE 1 G/10 ML UDC GT SCH (09:53)
[2019-01-06] MEDS: LACTOBACILLUS RHAMNOSUS GG 1 EACH CAP.SPRINK GT SCH ×2 (09:53→17:34)
[2019-01-06] MEDS: BASAGLAR KWIKPEN SQ SCH ×2 (09:54→21:20)
[2019-01-06] MEDS: HYDROCODONE/APAP 5/325MG 1 EACH TABLET GT SCH ×2 (09:54→20:45)
[2019-01-06] MEDS: METOPROLOL TARTRATE 50 MG TABLET GT SCH ×2 (09:54→20:45)
[2019-01-06] MEDS: OMEPRAZOLE 20 MG CAPSULE.DR GT SCH (09:54)
[2019-01-06] MEDS: ASCORBIC ACID 500 MG TABLET GT SCH (09:54)
[2019-01-06] MEDS: ZINC SULFATE 220 MG CAPSULE GT SCH (09:54)
[2019-01-06] MEDS: NEUTRA PHOS 1 POWD.PACKET GT SCH ×2 (09:54→20:45)
[2019-01-06] MEDS: VIT B CMPLX 3/FA/VIT C/BIOTIN 1 TAB TABLET GT SCH (09:54)
[2019-01-06] MEDS: PROSOURCE / PROSTAT (PYXIS) 30 ML UDC GT SCH ×3 (09:54→17:34)
[2019-01-06] MEDS: SULFAMETHOXAZOLE GT SCH ×2 (10:00→21:20)
[2019-01-06] MEDS: TRIMETHOPRIM GT SCH ×2 (10:00→21:20)
[2019-01-06] MEDS: NEPRO 1,000 ML BOTTLE GT PRN ×2 (13:01→17:41)
--- NOTE | 2019-01-06 14:28 | NUR ---
Spoke with Mandy sterile processing manager from [facility] regarding her recommendation to increase GT feeding rate to 65 cc/hr x 18 hours to provide 1170 ml/2106 kcal. due to presence of large sacral ulcer and poor nutritional status. Discussed recommendation this with [facility] sterile processing manager and Dr. Dia both provider agreed. Left a message to resident's daughter Christine regarding new order.
[2019-01-06] MEDS: CEFEPIME 1 GM in IV D5W 50 ML IV SCH (18:21)
--- NOTE | 2019-01-06 19:30 | NUR ---
Seen by LOPEZ Phipps no new order.
[2019-01-06] MEDS: FENOFIBRATE NANOCRYS (145 MG) 145 MG TABLET GT SCH (21:21)
[2019-01-07] VITALS (7 sets, daily range): BP systolic 114–133; BP diastolic 63–77
[2019-01-07] MEDS: BLOOD SUGAR DIAGNOSTIC 1 EACH STRIP IN SCH ×4 (05:22→23:26)
[2019-01-07] MEDS: METRONIDAZOLE 500 MG TABLET GT SCH ×3 (05:22→21:22)
[2019-01-07] MEDS: METOCLOPRAMIDE HCL 10 MG TABLET GT SCH ×4 (05:22→23:26)
[2019-01-07] MEDS: POLYVINYL ALCOHOL 15 ML BOTTLE EACHEYE SCH ×4 (05:22→23:25)
[2019-01-07] MEDS: INSULIN ASPART/LISPRO 100 UNIT/ML CARTRIDGE SQ PRN ×3 (05:24→23:26)
--- NOTE | 2019-01-07 07:07 | NUR ---
Patient feeding increased to 65ml/hr tolerated well,no episodes of emesis.HOB elevated.Will continue to monitor.
[2019-01-07] MEDS: DAKINS QUARTER STRENGTH (0.125%) 480 ML BOTTLE TOP SCH ×2 (09:00→21:23)
[2019-01-07] MEDS: BACI/NEOM/POLY B OINT PKT 1 UDPKT PACKET TP SCH ×2 (09:00→21:23)
[2019-01-07] MEDS: Z GUARD REMEDY 4 OZ OINT TP SCH ×2 (09:00→21:23)
[2019-01-07] MEDS: POVIDONE-IODINE OINT 28.4 GM TUBE TP SCH ×4 (09:00→21:23)
[2019-01-07] MEDS: VITAMINS A AND D 56.7 GM TUBE TP SCH ×8 (09:00→21:24)
[2019-01-07] MEDS: HYDROGEN PEROXIDE 480 ML BOTTLE TP SCH ×2 (09:00→21:23)
[2019-01-07] MEDS: NEUTRA PHOS 1 POWD.PACKET GT SCH ×2 (09:42→21:22)
[2019-01-07] MEDS: SUCRALFATE 1 G/10 ML UDC GT SCH (09:42)
[2019-01-07] MEDS: METOPROLOL TARTRATE 50 MG TABLET GT SCH ×2 (09:42→21:22)
[2019-01-07] MEDS: LACTOBACILLUS RHAMNOSUS GG 1 EACH CAP.SPRINK GT SCH ×2 (09:42→17:22)
[2019-01-07] MEDS: VIT B CMPLX 3/FA/VIT C/BIOTIN 1 TAB TABLET GT SCH (09:42)
[2019-01-07] MEDS: OMEPRAZOLE 20 MG CAPSULE.DR GT SCH (09:43)
[2019-01-07] MEDS: ASCORBIC ACID 500 MG TABLET GT SCH (09:43)
[2019-01-07] MEDS: ZINC SULFATE 220 MG CAPSULE GT SCH (09:43)
[2019-01-07] MEDS: PROSOURCE / PROSTAT (PYXIS) 30 ML UDC GT SCH ×3 (09:43→17:22)
[2019-01-07] MEDS: HYDROCODONE/APAP 5/325MG 1 EACH TABLET GT SCH ×2 (09:43→21:22)
[2019-01-07] MEDS: BASAGLAR KWIKPEN SQ SCH ×2 (09:48→21:22)
[2019-01-07] MEDS: SULFAMETHOXAZOLE GT SCH ×2 (10:00→21:24)
[2019-01-07] MEDS: TRIMETHOPRIM GT SCH ×2 (10:00→21:24)
[2019-01-07] MEDS: CEFEPIME 1 GM in IV D5W 50 ML IV SCH (18:00)
[2019-01-07] MEDS: FENOFIBRATE NANOCRYS (145 MG) 145 MG TABLET GT SCH (21:24)
[2019-01-08] VITALS (8 sets, daily range): BP systolic 116–153; BP diastolic 58–78
[2019-01-08] MEDS: METOCLOPRAMIDE HCL 10 MG TABLET GT SCH ×4 (05:12→23:48)
[2019-01-08] MEDS: POLYVINYL ALCOHOL 15 ML BOTTLE EACHEYE SCH ×4 (05:12→23:48)
[2019-01-08] MEDS: METRONIDAZOLE 500 MG TABLET GT SCH ×3 (05:12→20:45)
[2019-01-08] MEDS: BLOOD SUGAR DIAGNOSTIC 1 EACH STRIP IN SCH ×4 (05:17→23:48)
[2019-01-08] MEDS: INSULIN ASPART/LISPRO 100 UNIT/ML CARTRIDGE SQ PRN ×4 (05:19→23:49)
[2019-01-08] MEDS: Z GUARD REMEDY 4 OZ OINT TP SCH ×2 (09:00→20:48)
[2019-01-08] MEDS: POVIDONE-IODINE OINT 28.4 GM TUBE TP SCH ×4 (09:00→20:48)
[2019-01-08] MEDS: DAKINS QUARTER STRENGTH (0.125%) 480 ML BOTTLE TOP SCH ×2 (09:00→20:47)
[2019-01-08] MEDS: VITAMINS A AND D 56.7 GM TUBE TP SCH ×8 (09:00→20:48)
[2019-01-08] MEDS: HYDROGEN PEROXIDE 480 ML BOTTLE TP SCH ×2 (09:00→20:48)
[2019-01-08] MEDS: BACI/NEOM/POLY B OINT PKT 1 UDPKT PACKET TP SCH ×2 (09:00→20:48)
[2019-01-08] MEDS: BASAGLAR KWIKPEN SQ SCH ×2 (09:22→20:47)
[2019-01-08] MEDS: SUCRALFATE 1 G/10 ML UDC GT SCH (09:27)
[2019-01-08] MEDS: LACTOBACILLUS RHAMNOSUS GG 1 EACH CAP.SPRINK GT SCH ×2 (09:27→17:36)
[2019-01-08] MEDS: NEUTRA PHOS 1 POWD.PACKET GT SCH ×2 (09:27→20:46)
[2019-01-08] MEDS: VIT B CMPLX 3/FA/VIT C/BIOTIN 1 TAB TABLET GT SCH (09:27)
[2019-01-08] MEDS: METOPROLOL TARTRATE 50 MG TABLET GT SCH ×2 (09:27→20:46)
[2019-01-08] MEDS: OMEPRAZOLE 20 MG CAPSULE.DR GT SCH (09:28)
[2019-01-08] MEDS: PROSOURCE / PROSTAT (PYXIS) 30 ML UDC GT SCH ×3 (09:28→17:36)
[2019-01-08] MEDS: ZINC SULFATE 220 MG CAPSULE GT SCH (09:28)
[2019-01-08] MEDS: HYDROCODONE/APAP 5/325MG 1 EACH TABLET GT SCH ×2 (09:28→20:47)
[2019-01-08] MEDS: ASCORBIC ACID 500 MG TABLET GT SCH (09:28)
[2019-01-08] MEDS: TRIMETHOPRIM GT SCH ×2 (10:00→21:09)
[2019-01-08] MEDS: SULFAMETHOXAZOLE GT SCH ×2 (10:00→21:09)
[2019-01-08] MEDS: NEPRO 1,000 ML BOTTLE GT PRN (12:04)
[2019-01-08] MEDS: CEFEPIME 1 GM in IV D5W 50 ML IV SCH (17:51)
[2019-01-08] MEDS: FENOFIBRATE NANOCRYS (145 MG) 145 MG TABLET GT SCH (21:09)
[2019-01-09 01:03] VITALS: BP 120/76
[2019-01-09] MEDS: METRONIDAZOLE 500 MG TABLET GT SCH ×3 (05:03→20:45)
[2019-01-09] MEDS: METOCLOPRAMIDE HCL 10 MG TABLET GT SCH ×4 (05:03→23:54)
[2019-01-09] MEDS: POLYVINYL ALCOHOL 15 ML BOTTLE EACHEYE SCH ×4 (05:03→23:54)
[2019-01-09 05:05] VITALS: BP 121/75
[2019-01-09] MEDS: BLOOD SUGAR DIAGNOSTIC 1 EACH STRIP IN SCH ×4 (06:16→23:54)
[2019-01-09] MEDS: INSULIN ASPART/LISPRO 100 UNIT/ML CARTRIDGE SQ PRN ×4 (06:17→23:56)
[2019-01-09 08:02] VITALS: BP 103/73
[2019-01-09] MEDS: SUCRALFATE 1 G/10 ML UDC GT SCH (09:18)
[2019-01-09] MEDS: LACTOBACILLUS RHAMNOSUS GG 1 EACH CAP.SPRINK GT SCH ×2 (09:18→17:00)
[2019-01-09] MEDS: OMEPRAZOLE 20 MG CAPSULE.DR GT SCH (09:19)
[2019-01-09] MEDS: VIT B CMPLX 3/FA/VIT C/BIOTIN 1 TAB TABLET GT SCH (09:19)
[2019-01-09] MEDS: NEUTRA PHOS 1 POWD.PACKET GT SCH ×2 (09:19→20:46)
[2019-01-09] MEDS: METOPROLOL TARTRATE 50 MG TABLET GT SCH ×2 (09:19→20:46)
[2019-01-09] MEDS: PROSOURCE / PROSTAT (PYXIS) 30 ML UDC GT SCH ×3 (09:19→17:00)
[2019-01-09] MEDS: ASCORBIC ACID 500 MG TABLET GT SCH (09:19)
[2019-01-09] MEDS: HYDROCODONE/APAP 5/325MG 1 EACH TABLET GT SCH ×2 (09:19→20:46)
[2019-01-09] MEDS: ZINC SULFATE 220 MG CAPSULE GT SCH (09:19)
[2019-01-09] MEDS: BASAGLAR KWIKPEN SQ SCH ×2 (09:20→21:29)
[2019-01-09] MEDS: POVIDONE-IODINE OINT 28.4 GM TUBE TP SCH ×4 (09:21→21:40)
[2019-01-09] MEDS: DAKINS QUARTER STRENGTH (0.125%) 480 ML BOTTLE TOP SCH ×2 (09:21→21:40)
[2019-01-09] MEDS: BACI/NEOM/POLY B OINT PKT 1 UDPKT PACKET TP SCH ×2 (09:22→21:41)
[2019-01-09] MEDS: Z GUARD REMEDY 4 OZ OINT TP SCH ×2 (09:22→21:41)
[2019-01-09] MEDS: VITAMINS A AND D 56.7 GM TUBE TP SCH ×8 (09:22→21:41)
[2019-01-09] MEDS: HYDROGEN PEROXIDE 480 ML BOTTLE TP SCH ×2 (09:22→21:41)
[2019-01-09] MEDS: SULFAMETHOXAZOLE GT SCH ×2 (10:00→21:41)
[2019-01-09] MEDS: TRIMETHOPRIM GT SCH ×2 (10:00→21:41)
[2019-01-09] MEDS: NEPRO 1,000 ML BOTTLE GT PRN (12:02)
[2019-01-09 17:48] VITALS: BP 135/70
[2019-01-09] MEDS: CEFEPIME 1 GM in IV D5W 50 ML IV SCH (18:02)
[2019-01-09 20:06] VITALS: BP 106/74
[2019-01-09 21:38] VITALS: BP 106/74
[2019-01-09] MEDS: FENOFIBRATE NANOCRYS (145 MG) 145 MG TABLET GT SCH (21:42)
[2019-01-10] VITALS (7 sets, daily range): BP systolic 105–136; BP diastolic 52–86
[2019-01-10] MEDS: METRONIDAZOLE 500 MG TABLET GT SCH ×3 (05:28→20:44)
[2019-01-10] MEDS: METOCLOPRAMIDE HCL 10 MG TABLET GT SCH ×4 (05:29→23:25)
[2019-01-10] MEDS: POLYVINYL ALCOHOL 15 ML BOTTLE EACHEYE SCH ×4 (05:29→23:16)
[2019-01-10] MEDS: NEPRO 1,000 ML BOTTLE GT PRN (05:29)
[2019-01-10] MEDS: BLOOD SUGAR DIAGNOSTIC 1 EACH STRIP IN SCH ×4 (06:03→23:16)
[2019-01-10] MEDS: INSULIN ASPART/LISPRO 100 UNIT/ML CARTRIDGE SQ PRN ×4 (06:04→23:17)
[2019-01-10] MEDS: SUCRALFATE 1 G/10 ML UDC GT SCH (08:55)
[2019-01-10] MEDS: LACTOBACILLUS RHAMNOSUS GG 1 EACH CAP.SPRINK GT SCH ×2 (08:55→17:28)
[2019-01-10] MEDS: OMEPRAZOLE 20 MG CAPSULE.DR GT SCH (08:56)
[2019-01-10] MEDS: ASCORBIC ACID 500 MG TABLET GT SCH (08:56)
[2019-01-10] MEDS: PROSOURCE / PROSTAT (PYXIS) 30 ML UDC GT SCH ×3 (08:56→17:28)
[2019-01-10] MEDS: METOPROLOL TARTRATE 50 MG TABLET GT SCH ×2 (08:56→20:45)
[2019-01-10] MEDS: NEUTRA PHOS 1 POWD.PACKET GT SCH ×4 (08:56→23:25)
[2019-01-10] MEDS: HYDROCODONE/APAP 5/325MG 1 EACH TABLET GT SCH ×2 (08:56→20:45)
[2019-01-10] MEDS: VIT B CMPLX 3/FA/VIT C/BIOTIN 1 TAB TABLET GT SCH (08:56)
[2019-01-10] MEDS: ZINC SULFATE 220 MG CAPSULE GT SCH (08:56)
[2019-01-10] MEDS: BASAGLAR KWIKPEN SQ SCH ×2 (08:57→21:27)
[2019-01-10] MEDS: DAKINS QUARTER STRENGTH (0.125%) 480 ML BOTTLE TOP SCH ×2 (09:00→21:28)
[2019-01-10] MEDS: BACI/NEOM/POLY B OINT PKT 1 UDPKT PACKET TP SCH ×2 (09:00→21:29)
[2019-01-10] MEDS: VITAMINS A AND D 56.7 GM TUBE TP SCH ×8 (09:00→21:29)
[2019-01-10] MEDS: POVIDONE-IODINE OINT 28.4 GM TUBE TP SCH ×4 (09:00→21:28)
[2019-01-10] MEDS: HYDROGEN PEROXIDE 480 ML BOTTLE TP SCH ×2 (09:00→21:28)
[2019-01-10] MEDS: Z GUARD REMEDY 4 OZ OINT TP SCH ×2 (09:00→21:29)
[2019-01-10] MEDS: SULFAMETHOXAZOLE GT SCH ×2 (09:29→21:29)
[2019-01-10] MEDS: TRIMETHOPRIM GT SCH ×2 (09:29→21:29)
--- NOTE | 2019-01-10 10:08 | NUR ---
Received recommendation from [facility] to increase Neutraphos from q 12 to q 6 hours due to Phosphorus level < 1. Informed Dr Dia and he ordered to increase Neutraphos per recommendation.
--- NOTE | 2019-01-10 12:38 | NUR ---
RADHA communicated to patient's daughter about this Sunday 01/14 IDT mtg. She will attend it.
--- NOTE | 2019-01-10 13:10 | NUR ---
Resident was picked up from [facility] via gurney, while transferring the resident had a small amount of emesis, color yellow, abdomen soft non-distended, no gastric residual, was suctioned right away by tracheostomy and oral . metoclopramide via gtube was given. Vital signs 110/68, pulse 91, resp 18, saturation 98%.
--- NOTE | 2019-01-10 17:06 | NUR ---
Resident returned from dialysis center via gurney, was connected to mechanical ventilator and suctioned at arrival. Vital signs bp 136/86, temp 98.5, pulse 100, resp rate 18, pain 0/10, right upper chest dressing intact, no redness. Pre dialysis weight 60.3 kg.
[2019-01-10] MEDS: CEFEPIME 1 GM in IV D5W 50 ML IV SCH (17:28)
[2019-01-10] MEDS: FENOFIBRATE NANOCRYS (145 MG) 145 MG TABLET GT SCH (21:29)
[2019-01-11] VITALS (7 sets, daily range): BP systolic 111–148; BP diastolic 56–81
[2019-01-11] MEDS: METOCLOPRAMIDE HCL 10 MG TABLET GT SCH ×4 (05:50→23:31)
[2019-01-11] MEDS: NEUTRA PHOS 1 POWD.PACKET GT SCH ×4 (05:50→23:31)
[2019-01-11] MEDS: METRONIDAZOLE 500 MG TABLET GT SCH ×3 (05:50→20:49)
[2019-01-11] MEDS: POLYVINYL ALCOHOL 15 ML BOTTLE EACHEYE SCH ×4 (05:50→23:27)
[2019-01-11] MEDS: BLOOD SUGAR DIAGNOSTIC 1 EACH STRIP IN SCH ×4 (06:07→23:29)
[2019-01-11] MEDS: INSULIN ASPART/LISPRO 100 UNIT/ML CARTRIDGE SQ PRN ×4 (06:08→23:31)
[2019-01-11] MEDS: NEPRO 1,000 ML BOTTLE GT PRN (06:08)
[2019-01-11] MEDS: POVIDONE-IODINE OINT 28.4 GM TUBE TP SCH ×4 (09:00→21:30)
[2019-01-11] MEDS: VITAMINS A AND D 56.7 GM TUBE TP SCH ×8 (09:00→21:31)
[2019-01-11] MEDS: BACI/NEOM/POLY B OINT PKT 1 UDPKT PACKET TP SCH ×2 (09:00→21:30)
[2019-01-11] MEDS: HYDROGEN PEROXIDE 480 ML BOTTLE TP SCH ×2 (09:00→21:30)
[2019-01-11] MEDS: Z GUARD REMEDY 4 OZ OINT TP SCH ×2 (09:00→21:30)
[2019-01-11] MEDS: LACTOBACILLUS RHAMNOSUS GG 1 EACH CAP.SPRINK GT SCH ×2 (09:16→17:46)
[2019-01-11] MEDS: SUCRALFATE 1 G/10 ML UDC GT SCH (09:16)
[2019-01-11] MEDS: VIT B CMPLX 3/FA/VIT C/BIOTIN 1 TAB TABLET GT SCH (09:17)
[2019-01-11] MEDS: METOPROLOL TARTRATE 50 MG TABLET GT SCH ×2 (09:17→20:49)
[2019-01-11] MEDS: HYDROCODONE/APAP 5/325MG 1 EACH TABLET GT SCH ×2 (09:18→20:50)
[2019-01-11] MEDS: PROSOURCE / PROSTAT (PYXIS) 30 ML UDC GT SCH ×3 (09:18→17:46)
[2019-01-11] MEDS: ZINC SULFATE 220 MG CAPSULE GT SCH (09:18)
[2019-01-11] MEDS: ASCORBIC ACID 500 MG TABLET GT SCH (09:18)
[2019-01-11] MEDS: OMEPRAZOLE 20 MG CAPSULE.DR GT SCH (09:18)
[2019-01-11] MEDS: BASAGLAR KWIKPEN SQ SCH ×2 (09:39→21:21)
[2019-01-11] MEDS: TRIMETHOPRIM GT SCH ×2 (10:00→21:31)
[2019-01-11] MEDS: DAKINS QUARTER STRENGTH (0.125%) 480 ML BOTTLE TOP SCH ×2 (10:00→21:30)
[2019-01-11] MEDS: SULFAMETHOXAZOLE GT SCH ×2 (10:00→21:31)
[2019-01-11] MEDS: CEFEPIME 1 GM in IV D5W 50 ML IV SCH (18:34)
[2019-01-11] MEDS: FENOFIBRATE NANOCRYS (145 MG) 145 MG TABLET GT SCH (21:31)
[2019-01-12 01:03] VITALS: BP 125/66
[2019-01-12 05:25] VITALS: BP 132/62
[2019-01-12] MEDS: POLYVINYL ALCOHOL 15 ML BOTTLE EACHEYE SCH ×4 (05:30→23:28)
[2019-01-12] MEDS: METOCLOPRAMIDE HCL 10 MG TABLET GT SCH ×4 (05:30→23:28)
[2019-01-12] MEDS: METRONIDAZOLE 500 MG TABLET GT SCH ×3 (05:30→20:51)
[2019-01-12] MEDS: NEUTRA PHOS 1 POWD.PACKET GT SCH ×4 (05:30→23:28)
[2019-01-12] MEDS: INSULIN ASPART/LISPRO 100 UNIT/ML CARTRIDGE SQ PRN ×4 (05:45→23:29)
[2019-01-12] MEDS: BLOOD SUGAR DIAGNOSTIC 1 EACH STRIP IN SCH ×4 (05:45→23:28)
[2019-01-12 08:05] VITALS: BP 108/58
[2019-01-12] MEDS: BACI/NEOM/POLY B OINT PKT 1 UDPKT PACKET TP SCH (09:00)
[2019-01-12] MEDS: POVIDONE-IODINE OINT 28.4 GM TUBE TP SCH ×5 (09:00→21:37)
[2019-01-12] MEDS: Z GUARD REMEDY 4 OZ OINT TP SCH ×2 (09:00→21:37)
[2019-01-12] MEDS: DAKINS QUARTER STRENGTH (0.125%) 480 ML BOTTLE TOP SCH ×2 (09:00→21:37)
[2019-01-12] MEDS: HYDROGEN PEROXIDE 480 ML BOTTLE TP SCH ×2 (09:00→21:37)
[2019-01-12] MEDS: METOPROLOL TARTRATE 50 MG TABLET GT SCH ×2 (09:00→20:52)
[2019-01-12] MEDS: VITAMINS A AND D 56.7 GM TUBE TP SCH ×7 (09:00→21:38)
[2019-01-12] MEDS: VIT B CMPLX 3/FA/VIT C/BIOTIN 1 TAB TABLET GT SCH (09:52)
[2019-01-12] MEDS: OMEPRAZOLE 20 MG CAPSULE.DR GT SCH (09:52)
[2019-01-12] MEDS: ZINC SULFATE 220 MG CAPSULE GT SCH (09:52)
[2019-01-12] MEDS: ASCORBIC ACID 500 MG TABLET GT SCH (09:52)
[2019-01-12] MEDS: LACTOBACILLUS RHAMNOSUS GG 1 EACH CAP.SPRINK GT SCH ×2 (09:52→17:43)
[2019-01-12] MEDS: HYDROCODONE/APAP 5/325MG 1 EACH TABLET GT SCH ×2 (09:52→20:53)
[2019-01-12] MEDS: SUCRALFATE 1 G/10 ML UDC GT SCH (09:52)
[2019-01-12] MEDS: PROSOURCE / PROSTAT (PYXIS) 30 ML UDC GT SCH ×3 (09:52→17:43)
[2019-01-12] MEDS: BASAGLAR KWIKPEN SQ SCH ×2 (09:53→21:25)
[2019-01-12] MEDS: SULFAMETHOXAZOLE GT SCH ×2 (10:00→21:25)
[2019-01-12] MEDS: TRIMETHOPRIM GT SCH ×2 (10:00→21:25)
--- NOTE | 2019-01-12 17:30 | NUR ---
Resident returned back from dialysis, in stable condition. Ventilator connected and setting checked by RT. Dialysis access site in the R upper chest intact and no bleeding. Spoke with resident's daughter informing her that R 2nd toe which is gangrenous has spread to the 3rd toe. Dr. Beltran gave an order to continue same treatment as with the 2nd toe. Appreciated the call.
[2019-01-12] MEDS: CEFEPIME 1 GM in IV D5W 50 ML IV SCH (18:00)
[2019-01-12 19:00] VITALS: BP 108/58
[2019-01-12 20:10] VITALS: BP 128/70
[2019-01-12 21:01] VITALS: BP 128/70
[2019-01-12] MEDS: FENOFIBRATE NANOCRYS (145 MG) 145 MG TABLET GT SCH (21:25)
[2019-01-13 01:43] VITALS: BP 130/64
[2019-01-13 05:46] VITALS: BP 132/60
[2019-01-13] MEDS: METOCLOPRAMIDE HCL 10 MG TABLET GT SCH ×3 (05:48→17:22)
[2019-01-13] MEDS: METRONIDAZOLE 500 MG TABLET GT SCH ×3 (05:48→21:27)
[2019-01-13] MEDS: POLYVINYL ALCOHOL 15 ML BOTTLE EACHEYE SCH ×3 (05:48→17:22)
[2019-01-13] MEDS: NEUTRA PHOS 1 POWD.PACKET GT SCH ×3 (05:48→17:22)
[2019-01-13] MEDS: INSULIN ASPART/LISPRO 100 UNIT/ML CARTRIDGE SQ PRN ×3 (06:18→17:22)
[2019-01-13] MEDS: BLOOD SUGAR DIAGNOSTIC 1 EACH STRIP IN SCH ×3 (06:18→17:22)
[2019-01-13 07:49] VITALS: BP 123/54
[2019-01-13] MEDS: KETOCONAZOLE SHAMPOO 120 ML BOTTLE TP SCH (09:00)
[2019-01-13] MEDS: VITAMINS A AND D 56.7 GM TUBE TP SCH ×6 (09:00→21:30)
[2019-01-13] MEDS: POVIDONE-IODINE OINT 28.4 GM TUBE TP SCH ×6 (09:00→21:29)
[2019-01-13] MEDS: DAKINS QUARTER STRENGTH (0.125%) 480 ML BOTTLE TOP SCH ×2 (09:00→21:29)
[2019-01-13] MEDS: HYDROGEN PEROXIDE 480 ML BOTTLE TP SCH ×2 (09:00→21:30)
[2019-01-13] MEDS: Z GUARD REMEDY 4 OZ OINT TP SCH ×2 (09:00→21:30)
[2019-01-13] MEDS: LACTOBACILLUS RHAMNOSUS GG 1 EACH CAP.SPRINK GT SCH ×2 (09:18→17:22)
[2019-01-13] MEDS: METOPROLOL TARTRATE 50 MG TABLET GT SCH ×2 (09:18→21:00)
[2019-01-13] MEDS: SUCRALFATE 1 G/10 ML UDC GT SCH (09:18)
[2019-01-13] MEDS: HYDROCODONE/APAP 5/325MG 1 EACH TABLET GT SCH ×2 (09:19→21:27)
[2019-01-13] MEDS: OMEPRAZOLE 20 MG CAPSULE.DR GT SCH (09:19)
[2019-01-13] MEDS: PROSOURCE / PROSTAT (PYXIS) 30 ML UDC GT SCH ×3 (09:19→17:22)
[2019-01-13] MEDS: BASAGLAR KWIKPEN SQ SCH ×2 (09:19→21:28)
[2019-01-13] MEDS: VIT B CMPLX 3/FA/VIT C/BIOTIN 1 TAB TABLET GT SCH (09:19)
[2019-01-13] MEDS: ZINC SULFATE 220 MG CAPSULE GT SCH (09:19)
[2019-01-13] MEDS: ASCORBIC ACID 500 MG TABLET GT SCH (09:19)
[2019-01-13] MEDS: SULFAMETHOXAZOLE GT SCH ×2 (10:00→21:30)
[2019-01-13] MEDS: TRIMETHOPRIM GT SCH ×2 (10:00→21:30)
--- NOTE | 2019-01-13 17:00 | NUR ---
Spoke with Mandy of [facility]. She said pt's phosphorus level is still less than 1. Pt's Neutraphos was recently increased to 1 packet GT q 6 hours. Mandy said she spoke with Dr Damian regarding phosphorus level and he told her he will take care of it. No new order at this time.
[2019-01-13] MEDS: CEFEPIME 1 GM in IV D5W 50 ML IV SCH (18:31)
[2019-01-13 18:50] VITALS: BP 123/54
[2019-01-13 20:40] VITALS: BP 129/85
[2019-01-13] MEDS: FENOFIBRATE NANOCRYS (145 MG) 145 MG TABLET GT SCH (21:30)
[2019-01-14] VITALS (7 sets, daily range): BP systolic 132–159; BP diastolic 69–87
[2019-01-14] MEDS: POLYVINYL ALCOHOL 15 ML BOTTLE EACHEYE SCH ×4 (00:29→17:09)
[2019-01-14] MEDS: BLOOD SUGAR DIAGNOSTIC 1 EACH STRIP IN SCH ×4 (00:30→17:17)
[2019-01-14] MEDS: METOCLOPRAMIDE HCL 10 MG TABLET GT SCH ×4 (00:30→17:09)
[2019-01-14] MEDS: INSULIN ASPART/LISPRO 100 UNIT/ML CARTRIDGE SQ PRN ×4 (00:32→17:10)
[2019-01-14] MEDS: NEUTRA PHOS 1 POWD.PACKET GT SCH ×4 (00:33→17:09)
[2019-01-14] MEDS: NEPRO 1,000 ML BOTTLE GT PRN (00:36)
[2019-01-14] MEDS: METRONIDAZOLE 500 MG TABLET GT SCH ×3 (05:45→21:22)
[2019-01-14] MEDS: VITAMINS A AND D 56.7 GM TUBE TP SCH ×6 (09:00→21:47)
[2019-01-14] MEDS: HYDROGEN PEROXIDE 480 ML BOTTLE TP SCH ×2 (09:00→21:47)
[2019-01-14] MEDS: DAKINS QUARTER STRENGTH (0.125%) 480 ML BOTTLE TOP SCH ×2 (09:00→21:47)
[2019-01-14] MEDS: Z GUARD REMEDY 4 OZ OINT TP SCH ×2 (09:00→21:47)
[2019-01-14] MEDS: POVIDONE-IODINE OINT 28.4 GM TUBE TP SCH ×6 (09:00→21:47)
[2019-01-14] MEDS: LACTOBACILLUS RHAMNOSUS GG 1 EACH CAP.SPRINK GT SCH ×2 (09:46→17:09)
[2019-01-14] MEDS: SUCRALFATE 1 G/10 ML UDC GT SCH (09:46)
[2019-01-14] MEDS: ZINC SULFATE 220 MG CAPSULE GT SCH (09:47)
[2019-01-14] MEDS: ASCORBIC ACID 500 MG TABLET GT SCH (09:47)
[2019-01-14] MEDS: OMEPRAZOLE 20 MG CAPSULE.DR GT SCH (09:47)
[2019-01-14] MEDS: HYDROCODONE/APAP 5/325MG 1 EACH TABLET GT SCH ×2 (09:47→21:23)
[2019-01-14] MEDS: BASAGLAR KWIKPEN SQ SCH ×2 (09:47→21:45)
[2019-01-14] MEDS: METOPROLOL TARTRATE 50 MG TABLET GT SCH ×2 (09:47→21:23)
[2019-01-14] MEDS: VIT B CMPLX 3/FA/VIT C/BIOTIN 1 TAB TABLET GT SCH (09:47)
[2019-01-14] MEDS: PROSOURCE / PROSTAT (PYXIS) 30 ML UDC GT SCH ×3 (09:47→17:09)
[2019-01-14] MEDS: SULFAMETHOXAZOLE GT SCH ×2 (10:00→21:23)
[2019-01-14] MEDS: TRIMETHOPRIM GT SCH ×2 (10:00→21:23)
--- NOTE | 2019-01-14 15:35 | NUR ---
INTERDISCIPLINARY TEAM CONFERENCE (IDT) was held today. Resident's daughter Christine was not able to attend, but his daughter Adrienne participated via phone conference. Dr. Rocha and the interdisciplinary team reviewed the current plan of care in detail. Orders as well as treatment and medications were reviewed. Patient continue to received hemodialysis 3x / week. GT feeding rate increased to 65 cc/hr and well tolerated. Patient's phosphorus level <1.0 , Neutraphos increased to Q6 hours. [facility] banding off bearer monitoring electrolytes and communicates recommendation to physician and facility.
[2019-01-14] MEDS: CEFEPIME 1 GM in IV D5W 50 ML IV SCH (17:57)
[2019-01-14] MEDS: FENOFIBRATE NANOCRYS (145 MG) 145 MG TABLET GT SCH (21:23)
[2019-01-15] VITALS (8 sets, daily range): BP systolic 123–167; BP diastolic 66–89
[2019-01-15] MEDS: METOCLOPRAMIDE HCL 10 MG TABLET GT SCH ×4 (00:42→17:35)
[2019-01-15] MEDS: NEPRO 1,000 ML BOTTLE GT PRN (00:42)
[2019-01-15] MEDS: POLYVINYL ALCOHOL 15 ML BOTTLE EACHEYE SCH ×4 (00:42→17:35)
[2019-01-15] MEDS: BLOOD SUGAR DIAGNOSTIC 1 EACH STRIP IN SCH ×4 (00:42→17:51)
[2019-01-15] MEDS: NEUTRA PHOS 1 POWD.PACKET GT SCH ×4 (00:42→17:35)
[2019-01-15] MEDS: INSULIN ASPART/LISPRO 100 UNIT/ML CARTRIDGE SQ PRN ×4 (00:44→17:54)
[2019-01-15] MEDS: METRONIDAZOLE 500 MG TABLET GT SCH ×3 (05:52→21:20)
[2019-01-15] MEDS: SUCRALFATE 1 G/10 ML UDC GT SCH (08:47)
[2019-01-15] MEDS: METOPROLOL TARTRATE 50 MG TABLET GT SCH ×2 (08:47→21:20)
[2019-01-15] MEDS: VIT B CMPLX 3/FA/VIT C/BIOTIN 1 TAB TABLET GT SCH (08:47)
[2019-01-15] MEDS: LACTOBACILLUS RHAMNOSUS GG 1 EACH CAP.SPRINK GT SCH ×2 (08:47→17:35)
[2019-01-15] MEDS: ASCORBIC ACID 500 MG TABLET GT SCH (08:48)
[2019-01-15] MEDS: OMEPRAZOLE 20 MG CAPSULE.DR GT SCH (08:48)
[2019-01-15] MEDS: HYDROCODONE/APAP 5/325MG 1 EACH TABLET GT SCH ×2 (08:48→21:21)
[2019-01-15] MEDS: PROSOURCE / PROSTAT (PYXIS) 30 ML UDC GT SCH ×3 (08:48→17:35)
[2019-01-15] MEDS: ZINC SULFATE 220 MG CAPSULE GT SCH (08:48)
[2019-01-15] MEDS: HYDROGEN PEROXIDE 480 ML BOTTLE TP SCH ×2 (09:00→21:44)
[2019-01-15] MEDS: Z GUARD REMEDY 4 OZ OINT TP SCH ×2 (09:00→21:44)
[2019-01-15] MEDS: DAKINS QUARTER STRENGTH (0.125%) 480 ML BOTTLE TOP SCH ×2 (09:00→21:43)
[2019-01-15] MEDS: POVIDONE-IODINE OINT 28.4 GM TUBE TP SCH ×6 (09:00→21:43)
[2019-01-15] MEDS: VITAMINS A AND D 56.7 GM TUBE TP SCH ×6 (09:00→21:44)
[2019-01-15] MEDS: BASAGLAR KWIKPEN SQ SCH ×2 (09:08→21:21)
[2019-01-15] MEDS: SULFAMETHOXAZOLE GT SCH ×2 (10:00→21:22)
[2019-01-15] MEDS: TRIMETHOPRIM GT SCH ×2 (10:00→21:22)
--- NOTE | 2019-01-15 11:20 | NUR ---
Resident noted with open skin around the circumference of the penis. MD notified with treatment initiated. Spoke with resident's daughter Adrienne and updated her of patient's condition including the new open skin noted in the penile area. No episode of vomiting this shift. Patient awake, eye open, non verbal and does not follow any command. Not in any s/s of respiratory distress; connected to the ventilator with the following setting (AC 18, TV 500, Fi02 40%) well tolerated. Continue ATB for osteomyelitis, no adverse reaction.
[2019-01-15] MEDS: ONDANSETRON 4 MG TAB.RAPDIS GT PRN (17:26)
--- NOTE | 2019-01-15 17:26 | NUR ---
Resident had one episode of emesis, amount medium, color brown, tracheostomy and oral suctioning was done right away, minimal secretions, white, loose, HOB remains elevated @45 degrees, Gtube feeding was turned off, gastric residual 10ml, abdomen soft non-distended, PRN zofran 4mg via gtube was given for vomiting.
[2019-01-15] MEDS: CEFEPIME 1 GM in IV D5W 50 ML IV SCH (17:35)
--- NOTE | 2019-01-15 20:43 | NUR ---
Sub-Acute/RN NOTES PER MD ORDER REQUESTING A WOUND CONSULT FOR 4TH DIGIT TOE GANGRENE, DR DESTINEE FIGUEROA WOUND TO PROVIDED PLAN OF CARE WITH THE FAMILY. FAMILY MADE AWARE.
[2019-01-15] MEDS: FENOFIBRATE NANOCRYS (145 MG) 145 MG TABLET GT SCH (21:22)
[2019-01-15] MEDS: NEOMY SULF/BACITRAC ZN/POLY 15 GM TUBE TP SCH (21:44)
[2019-01-16] MEDS: INSULIN ASPART/LISPRO 100 UNIT/ML CARTRIDGE SQ PRN ×4 (00:03→18:19)
[2019-01-16 01:00] VITALS: BP 120/59
--- NOTE | 2019-01-16 01:11 | NUR ---
SUBACUTE/RN NOTES PICC LINE DRESSING CHANGE, ABLE TO TOLERATE PROCEDURE, KEPT COMFORTABLE, ABLE TO FLUSH. WILL MONITOR.
[2019-01-16] MEDS: NEPRO 1,000 ML BOTTLE GT PRN (03:50)
[2019-01-16 05:00] VITALS: BP 122/55
[2019-01-16] MEDS: POLYVINYL ALCOHOL 15 ML BOTTLE EACHEYE SCH ×4 (05:34→18:20)
[2019-01-16] MEDS: METRONIDAZOLE 500 MG TABLET GT SCH ×3 (05:34→20:48)
[2019-01-16] MEDS: METOCLOPRAMIDE HCL 10 MG TABLET GT SCH ×4 (05:34→18:20)
[2019-01-16] MEDS: NEUTRA PHOS 1 POWD.PACKET GT SCH ×4 (05:34→18:20)
[2019-01-16] MEDS: BLOOD SUGAR DIAGNOSTIC 1 EACH STRIP IN SCH ×4 (05:57→18:20)
[2019-01-16 07:52] VITALS: BP 158/61
[2019-01-16] MEDS: HYDROGEN PEROXIDE 480 ML BOTTLE TP SCH ×2 (09:00→20:52)
[2019-01-16] MEDS: Z GUARD REMEDY 4 OZ OINT TP SCH ×2 (09:00→20:52)
[2019-01-16] MEDS: DAKINS QUARTER STRENGTH (0.125%) 480 ML BOTTLE TOP SCH ×2 (09:00→20:51)
[2019-01-16] MEDS: VITAMINS A AND D 56.7 GM TUBE TP SCH ×6 (09:00→20:53)
[2019-01-16] MEDS: NEOMY SULF/BACITRAC ZN/POLY 15 GM TUBE TP SCH ×2 (09:00→20:52)
[2019-01-16] MEDS: POVIDONE-IODINE OINT 28.4 GM TUBE TP SCH ×8 (09:00→20:52)
[2019-01-16] MEDS: SUCRALFATE 1 G/10 ML UDC GT SCH (09:20)
[2019-01-16] MEDS: LACTOBACILLUS RHAMNOSUS GG 1 EACH CAP.SPRINK GT SCH ×2 (09:20→17:00)
[2019-01-16] MEDS: VIT B CMPLX 3/FA/VIT C/BIOTIN 1 TAB TABLET GT SCH (09:21)
[2019-01-16] MEDS: BASAGLAR KWIKPEN SQ SCH ×2 (09:21→21:49)
[2019-01-16] MEDS: METOPROLOL TARTRATE 50 MG TABLET GT SCH ×2 (09:21→20:48)
[2019-01-16] MEDS: OMEPRAZOLE 20 MG CAPSULE.DR GT SCH (09:21)
[2019-01-16] MEDS: HYDROCODONE/APAP 5/325MG 1 EACH TABLET GT SCH ×2 (09:21→20:51)
[2019-01-16] MEDS: ZINC SULFATE 220 MG CAPSULE GT SCH (09:21)
[2019-01-16] MEDS: ASCORBIC ACID 500 MG TABLET GT SCH (09:21)
[2019-01-16] MEDS: PROSOURCE / PROSTAT (PYXIS) 30 ML UDC GT SCH ×3 (09:21→17:00)
[2019-01-16] MEDS: TRIMETHOPRIM GT SCH ×2 (10:00→21:49)
[2019-01-16] MEDS: SULFAMETHOXAZOLE GT SCH ×2 (10:00→21:49)
[2019-01-16] MEDS: CEFEPIME 1 GM in IV D5W 50 ML IV SCH (18:30)
[2019-01-16 18:32] VITALS: BP 130/58
--- NOTE | 2019-01-16 20:16 | NUR ---
RT PATIENT REC'D ON MECHANICAL VENTILATION. CUFF CHECKED VIA FUSE CUTTER. VENT PLUGGED INTO RED OUTLET. ALARMS ON AND AUDIBLE. SX DONE, SMALL THICK WHITE/YELLOW SECRETIONS NOTED. PATIENT STABLE. NO SOB NOTED AT THIS TIME. WILL CONTINUE TO MONITOR. Addendum: 01/16/19 at 2018 by LESLY WARREN RT Amended: Links added.
[2019-01-16 21:06] VITALS: BP 115/59
[2019-01-16] MEDS: FENOFIBRATE NANOCRYS (145 MG) 145 MG TABLET GT SCH (21:49)
[2019-01-17] VITALS (7 sets, daily range): BP systolic 97–137; BP diastolic 53–80
[2019-01-17] MEDS: NEPRO 1,000 ML BOTTLE GT PRN (00:16)
[2019-01-17] MEDS: POLYVINYL ALCOHOL 15 ML BOTTLE EACHEYE SCH ×4 (00:16→17:59)
[2019-01-17] MEDS: NEUTRA PHOS 1 POWD.PACKET GT SCH ×4 (00:19→17:59)
[2019-01-17] MEDS: METOCLOPRAMIDE HCL 10 MG TABLET GT SCH ×4 (00:20→17:59)
[2019-01-17] MEDS: BLOOD SUGAR DIAGNOSTIC 1 EACH STRIP IN SCH ×4 (00:20→17:59)
[2019-01-17] MEDS: INSULIN ASPART/LISPRO 100 UNIT/ML CARTRIDGE SQ PRN ×4 (00:37→18:13)
[2019-01-17] MEDS: METRONIDAZOLE 500 MG TABLET GT SCH ×2 (05:49→12:26)
--- NOTE | 2019-01-17 06:55 | NUR ---
WOUND CARE CONSULT WOUND CARE RECEIVED CONSULT FOR 4TH DIGIT GANGRENE. WOUND CARE WILL DEFER CONSULT AND TREATMENT PLANS TO PLASTIC SURGICAL TEAM INCLUDING DPM WHO ARE ALL CURRENTLY FOLLOWING THIS PATIENT. WILL SEE PRN.
[2019-01-17] MEDS: METOPROLOL TARTRATE 50 MG TABLET GT SCH ×2 (09:00→20:38)
[2019-01-17] MEDS: LACTOBACILLUS RHAMNOSUS GG 1 EACH CAP.SPRINK GT SCH ×2 (09:09→17:57)
[2019-01-17] MEDS: VIT B CMPLX 3/FA/VIT C/BIOTIN 1 TAB TABLET GT SCH (09:09)
[2019-01-17] MEDS: SUCRALFATE 1 G/10 ML UDC GT SCH (09:09)
[2019-01-17] MEDS: ZINC SULFATE 220 MG CAPSULE GT SCH (09:10)
[2019-01-17] MEDS: PROSOURCE / PROSTAT (PYXIS) 30 ML UDC GT SCH ×3 (09:10→17:57)
[2019-01-17] MEDS: OMEPRAZOLE 20 MG CAPSULE.DR GT SCH (09:10)
[2019-01-17] MEDS: ASCORBIC ACID 500 MG TABLET GT SCH (09:10)
[2019-01-17] MEDS: HYDROCODONE/APAP 5/325MG 1 EACH TABLET GT SCH ×2 (09:10→20:38)
[2019-01-17] MEDS: BASAGLAR KWIKPEN SQ SCH ×2 (09:24→21:05)
[2019-01-17] MEDS: SULFAMETHOXAZOLE GT SCH ×2 (10:00→22:00)
[2019-01-17] MEDS: HYDROGEN PEROXIDE 480 ML BOTTLE TP SCH ×2 (10:00→20:39)
[2019-01-17] MEDS: POVIDONE-IODINE OINT 28.4 GM TUBE TP SCH ×8 (10:00→20:39)
[2019-01-17] MEDS: TRIMETHOPRIM GT SCH ×2 (10:00→22:00)
[2019-01-17] MEDS: Z GUARD REMEDY 4 OZ OINT TP SCH ×2 (10:00→20:39)
[2019-01-17] MEDS: VITAMINS A AND D 56.7 GM TUBE TP SCH ×6 (10:00→20:39)
[2019-01-17] MEDS: DAKINS QUARTER STRENGTH (0.125%) 480 ML BOTTLE TOP SCH ×2 (10:00→20:38)
[2019-01-17] MEDS: NEOMY SULF/BACITRAC ZN/POLY 15 GM TUBE TP SCH ×2 (10:00→20:39)
--- NOTE | 2019-01-17 14:39 | NUR ---
RADHA communicated with pt.'s daughter Christine to inform her about this Sunday 01/21 IDT meeting. Pt daughter Adrienne will be attending with her mother over conference call.
--- NOTE | 2019-01-17 15:44 | NUR ---
Clarified indications of pt's antibiotics with TAX ASSOCIATE Ina if all of them are for osteomyelitis since durations are all for 6 weeks. She said Flagyl, Bactrim, and Cefepime are all for osteomyelitis but she said they can already be DC'd. Asked her if she wanted to DC them today and she said yes.
--- NOTE | 2019-01-17 19:21 | NUR ---
Spoke with Mandy of [facility] today regarding pt's phosphorus level. She said she saw Dr Damian today and reminded him of pt's phosphorus level which is less than 1. He said he will take care of it. Mandy said they will do monthly labs for pt on Thursday01/19/19. Pt currently on Neutraphos 1 packet GT q 6 hours.
--- NOTE | 2019-01-17 20:22 | NUR ---
RT PATIENT REC'D ON MECHANICAL VENTILATION WITH CHARTED AC SETTINGS. NO SOB NOTED AT THIS TIME. CUFF CHECKED VIA WARP YARN SORTER. VENT PLUGGED INTO RED OUTLET. ALARMS ON AND AUDIBLE. SX DONE, SMALL THICK YELLOW/WHITE SECRETIONS NOTED. WILL CONTINUE TO MONITOR. Addendum: 01/17/19 at 2021 by LESLY WARREN RT Amended: Links added.
[2019-01-17] MEDS: FENOFIBRATE NANOCRYS (145 MG) 145 MG TABLET GT SCH (22:00)
[2019-01-18] VITALS (8 sets, daily range): BP systolic 107–140; BP diastolic 52–81
[2019-01-18] MEDS: NEUTRA PHOS 1 POWD.PACKET GT SCH ×4 (00:27→17:20)
[2019-01-18] MEDS: POLYVINYL ALCOHOL 15 ML BOTTLE EACHEYE SCH ×4 (00:27→17:20)
[2019-01-18] MEDS: METOCLOPRAMIDE HCL 10 MG TABLET GT SCH ×4 (00:27→17:20)
[2019-01-18] MEDS: BLOOD SUGAR DIAGNOSTIC 1 EACH STRIP IN SCH ×4 (00:28→17:20)
[2019-01-18] MEDS: INSULIN ASPART/LISPRO 100 UNIT/ML CARTRIDGE SQ PRN ×4 (00:29→17:21)
[2019-01-18] MEDS: NEPRO 1,000 ML BOTTLE GT PRN ×2 (00:32→18:00)
[2019-01-18 07:37] LABS: BASOPHILS # (AUTO) 0.1 /CMM (0.0-0.2); BASOPHILS % (AUTO) 0.7 % (0.0-2.0); EOSINOPHILS % (AUTO) 8.1 % (0.0-6.0); HEMATOCRIT 31 % (39-51); HEMOGLOBIN 10.3 g/dL (13.5-17.5); LYMPHOCYTES # (AUTO) 1.5 /CMM (0.8-4.8); LYMPHOCYTES % (AUTO) 16.1 % (20.0-44.0); MEAN CORPUSCULAR HGB CONC 33 g/dl (31.0-36.0); MEAN CORPUSCULAR VOLUME 111 fL (80-96); MONOCYTES # (AUTO) 0.9 /CMM (0.1-1.30); MONOCYTES % (AUTO) 10.2 % (2.0-12.0); NEUTROPHILS % (AUTO) 64.9 % (43.0-81.0); PLATELET COUNT (AUTO) 266 /CMM (150-450); RED BLOOD CELL COUNT(AUTO) 2.83 MIL/uL (4.5-6.0); WHITE BLOOD COUNT (AUTO) 9.2 K/uL (4.3-11.0)
[2019-01-18 08:28] LABS: BAND % (MANUAL) 3 % (0.0-5.0); EOSINOPHILS % (MANUAL) 11 % (0-4); LYMPHOCYTES % (MANUAL) 12 % (16-48); MONOCYTES % (MANUAL) 10 % (0-11.0); NEUTROPHILS % (MANUAL) 64 (42-76)
[2019-01-18] MEDS: HYDROCODONE/APAP 5/325MG 1 EACH TABLET GT SCH ×2 (09:30→20:46)
[2019-01-18] MEDS: PROSOURCE / PROSTAT (PYXIS) 30 ML UDC GT SCH ×3 (09:37→17:20)
[2019-01-18] MEDS: LACTOBACILLUS RHAMNOSUS GG 1 EACH CAP.SPRINK GT SCH ×2 (09:37→17:20)
[2019-01-18] MEDS: ZINC SULFATE 220 MG CAPSULE GT SCH (09:37)
[2019-01-18] MEDS: ASCORBIC ACID 500 MG TABLET GT SCH (09:37)
[2019-01-18] MEDS: OMEPRAZOLE 20 MG CAPSULE.DR GT SCH (09:37)
[2019-01-18] MEDS: METOPROLOL TARTRATE 50 MG TABLET GT SCH ×2 (09:37→20:45)
[2019-01-18] MEDS: VIT B CMPLX 3/FA/VIT C/BIOTIN 1 TAB TABLET GT SCH (09:37)
[2019-01-18] MEDS: SUCRALFATE 1 G/10 ML UDC GT SCH (09:37)
[2019-01-18] MEDS: BASAGLAR KWIKPEN SQ SCH ×2 (09:45→21:08)
--- NOTE | 2019-01-18 09:45 | NUR ---
Late entry for 01/17/19 Seen by LOPEZ Phipps. Informed her that pt is not on Heparin or SCD pumps for DVT prophylaxis. She said Heparin is not recommended for pt since Hgb is low. She ordered SCD to bilateral lower extremities. She also ordered CBC.
[2019-01-18] MEDS: SULFAMETHOXAZOLE GT SCH ×2 (09:47→22:23)
[2019-01-18] MEDS: TRIMETHOPRIM GT SCH ×2 (09:47→22:23)
[2019-01-18] MEDS: POVIDONE-IODINE OINT 28.4 GM TUBE TP SCH ×8 (10:10→20:47)
[2019-01-18] MEDS: DAKINS QUARTER STRENGTH (0.125%) 480 ML BOTTLE TOP SCH ×2 (10:10→20:47)
[2019-01-18] MEDS: NEOMY SULF/BACITRAC ZN/POLY 15 GM TUBE TP SCH ×2 (10:10→20:47)
[2019-01-18] MEDS: HYDROGEN PEROXIDE 480 ML BOTTLE TP SCH ×2 (10:10→20:47)
[2019-01-18] MEDS: VITAMINS A AND D 56.7 GM TUBE TP SCH ×6 (10:10→20:48)
[2019-01-18] MEDS: Z GUARD REMEDY 4 OZ OINT TP SCH ×2 (10:10→20:48)
[2019-01-18] MEDS: FENOFIBRATE NANOCRYS (145 MG) 145 MG TABLET GT SCH (22:23)
[2019-01-19] VITALS (8 sets, daily range): BP systolic 109–167; BP diastolic 49–84
[2019-01-19] MEDS: POLYVINYL ALCOHOL 15 ML BOTTLE EACHEYE SCH ×4 (00:20→17:57)
[2019-01-19] MEDS: BLOOD SUGAR DIAGNOSTIC 1 EACH STRIP IN SCH ×4 (00:21→17:57)
[2019-01-19] MEDS: NEUTRA PHOS 1 POWD.PACKET GT SCH ×4 (00:21→17:57)
[2019-01-19] MEDS: METOCLOPRAMIDE HCL 10 MG TABLET GT SCH ×4 (00:21→17:57)
[2019-01-19] MEDS: INSULIN ASPART/LISPRO 100 UNIT/ML CARTRIDGE SQ PRN ×4 (00:23→18:31)
[2019-01-19 07:23] LABS: CALCIUM, SERUM 8.6 mg/dL (8.5-10.1); PHOSPHORUS 2.9 mg/dL (2.5-4.9); POTASSIUM 3.9 mmol/L (3.5-5.1)
[2019-01-19] MEDS: NEOMY SULF/BACITRAC ZN/POLY 15 GM TUBE TP SCH ×2 (09:00→21:44)
[2019-01-19] MEDS: SUCRALFATE 1 G/10 ML UDC GT SCH (09:19)
[2019-01-19] MEDS: LACTOBACILLUS RHAMNOSUS GG 1 EACH CAP.SPRINK GT SCH ×2 (09:19→17:57)
[2019-01-19] MEDS: VIT B CMPLX 3/FA/VIT C/BIOTIN 1 TAB TABLET GT SCH (09:22)
[2019-01-19] MEDS: ASCORBIC ACID 500 MG TABLET GT SCH (09:23)
[2019-01-19] MEDS: OMEPRAZOLE 20 MG CAPSULE.DR GT SCH (09:23)
[2019-01-19] MEDS: ZINC SULFATE 220 MG CAPSULE GT SCH (09:23)
[2019-01-19] MEDS: HYDROCODONE/APAP 5/325MG 1 EACH TABLET GT SCH ×2 (09:23→21:17)
[2019-01-19] MEDS: PROSOURCE / PROSTAT (PYXIS) 30 ML UDC GT SCH ×3 (09:23→17:57)
[2019-01-19] MEDS: METOPROLOL TARTRATE 50 MG TABLET GT SCH ×2 (09:45→21:16)
[2019-01-19] MEDS: BASAGLAR KWIKPEN SQ SCH ×2 (09:45→21:59)
[2019-01-19] MEDS: HYDROGEN PEROXIDE 480 ML BOTTLE TP SCH ×2 (10:00→21:43)
[2019-01-19] MEDS: VITAMINS A AND D 56.7 GM TUBE TP SCH ×6 (10:00→21:44)
[2019-01-19] MEDS: TRIMETHOPRIM GT SCH ×2 (10:00→21:17)
[2019-01-19] MEDS: POVIDONE-IODINE OINT 28.4 GM TUBE TP SCH ×8 (10:00→21:43)
[2019-01-19] MEDS: SULFAMETHOXAZOLE GT SCH ×2 (10:00→21:17)
[2019-01-19] MEDS: Z GUARD REMEDY 4 OZ OINT TP SCH ×2 (10:00→21:44)
[2019-01-19] MEDS: DAKINS QUARTER STRENGTH (0.125%) 480 ML BOTTLE TOP SCH ×2 (10:00→21:43)
--- NOTE | 2019-01-19 14:00 | NUR ---
Patient left for dialysis in stable condition, connected to ventilator, in no acute respiratory distress or discomfort. Referred gangrenous toes on the R foot to Dr. Beltran and he said that it will even get worst. Suggested to speak with family to discuss plan of care regarding gangrenous toes. He said that he needs to be seen by Dr. Madsen as he will do the surgery if family agrees with amputation. Dr. Beltran sent a text message to Dr. Madsen to see patient. Dr. Madsen acknowledged the message.
[2019-01-19] MEDS: NEPRO 1,000 ML BOTTLE GT PRN (18:24)
--- NOTE | 2019-01-19 20:24 | NUR ---
RT PATIENT REC'D ON MECHANICAL VENTILATION WITH CHARTED AC SETTINGS. NO SOB NOTED AT THIS TIME. CUFF CHECKED VIA IT AUDITOR. VENT PLUGGED INTO RED OUTLET. ALARMS ON AND AUDIBLE. SX DONE, MODERATE THICK YELLOW/WHITE SECRETIONS NOTED. WILL CONTINUE TO MONITOR. Addendum: 01/19/19 at 2023 by LESLY WARREN RT Amended: Links added.
[2019-01-19] MEDS: FENOFIBRATE NANOCRYS (145 MG) 145 MG TABLET GT SCH (21:17)
[2019-01-20] VITALS (8 sets, daily range): BP systolic 114–161; BP diastolic 62–90
[2019-01-20] MEDS: POLYVINYL ALCOHOL 15 ML BOTTLE EACHEYE SCH ×4 (00:22→18:13)
[2019-01-20] MEDS: METOCLOPRAMIDE HCL 10 MG TABLET GT SCH ×4 (00:23→18:13)
[2019-01-20] MEDS: NEUTRA PHOS 1 POWD.PACKET GT SCH ×4 (00:23→21:02)
[2019-01-20] MEDS: BLOOD SUGAR DIAGNOSTIC 1 EACH STRIP IN SCH ×4 (00:23→18:41)
[2019-01-20] MEDS: INSULIN ASPART/LISPRO 100 UNIT/ML CARTRIDGE SQ PRN ×4 (00:25→18:29)
[2019-01-20] MEDS: POVIDONE-IODINE OINT 28.4 GM TUBE TP SCH ×8 (09:00→21:28)
[2019-01-20] MEDS: VIT B CMPLX 3/FA/VIT C/BIOTIN 1 TAB TABLET GT SCH (09:24)
[2019-01-20] MEDS: SUCRALFATE 1 G/10 ML UDC GT SCH (09:24)
[2019-01-20] MEDS: LACTOBACILLUS RHAMNOSUS GG 1 EACH CAP.SPRINK GT SCH ×2 (09:24→17:00)
[2019-01-20] MEDS: HYDROCODONE/APAP 5/325MG 1 EACH TABLET GT SCH ×2 (09:25→21:02)
[2019-01-20] MEDS: PROSOURCE / PROSTAT (PYXIS) 30 ML UDC GT SCH ×3 (09:25→17:00)
[2019-01-20] MEDS: ZINC SULFATE 220 MG CAPSULE GT SCH (09:25)
[2019-01-20] MEDS: OMEPRAZOLE 20 MG CAPSULE.DR GT SCH (09:25)
[2019-01-20] MEDS: ASCORBIC ACID 500 MG TABLET GT SCH (09:25)
[2019-01-20] MEDS: METOPROLOL TARTRATE 50 MG TABLET GT SCH ×2 (09:48→21:01)
[2019-01-20] MEDS: BASAGLAR KWIKPEN SQ SCH ×2 (09:48→21:27)
[2019-01-20] MEDS: DAKINS QUARTER STRENGTH (0.125%) 480 ML BOTTLE TOP SCH ×2 (10:00→21:28)
[2019-01-20] MEDS: Z GUARD REMEDY 4 OZ OINT TP SCH ×2 (10:00→21:29)
[2019-01-20] MEDS: HYDROGEN PEROXIDE 480 ML BOTTLE TP SCH ×2 (10:00→21:29)
[2019-01-20] MEDS: VITAMINS A AND D 56.7 GM TUBE TP SCH ×6 (10:00→21:29)
[2019-01-20] MEDS: NEOMY SULF/BACITRAC ZN/POLY 15 GM TUBE TP SCH ×2 (10:00→21:29)
[2019-01-20] MEDS: KETOCONAZOLE SHAMPOO 120 ML BOTTLE TP SCH (10:00)
[2019-01-20] MEDS: NEPRO 1,000 ML BOTTLE GT PRN (12:42)
--- NOTE | 2019-01-20 13:00 | NUR ---
Notified Dr. Dia of [facility] skip miner blasting's recommendations to decrease frequency of Neutra-phos to BID instead of Q 6 hours. Current Phosphorus level 3.6. MD Dia agreed with the recommendations.
[2019-01-20] MEDS: FENOFIBRATE NANOCRYS (145 MG) 145 MG TABLET GT SCH (21:02)
[2019-01-21] VITALS (7 sets, daily range): BP systolic 118–145; BP diastolic 59–83
[2019-01-21] MEDS: BLOOD SUGAR DIAGNOSTIC 1 EACH STRIP IN SCH ×4 (00:40→17:28)
[2019-01-21] MEDS: METOCLOPRAMIDE HCL 10 MG TABLET GT SCH ×4 (00:40→17:28)
[2019-01-21] MEDS: POLYVINYL ALCOHOL 15 ML BOTTLE EACHEYE SCH ×4 (00:40→17:28)
[2019-01-21] MEDS: INSULIN ASPART/LISPRO 100 UNIT/ML CARTRIDGE SQ PRN ×4 (00:43→17:28)
--- NOTE | 2019-01-21 07:02 | NUR ---
Seen and examined by Dr. Madsen (vascular surgeon).He said he will call the daughter for possible amputation of right foot.
--- NOTE | 2019-01-21 07:16 | NUR ---
Dr. Madsen ordered arterial duplex rt lower extremities and xr right femur,will carried out.
[2019-01-21] MEDS: LACTOBACILLUS RHAMNOSUS GG 1 EACH CAP.SPRINK GT SCH ×2 (09:20→17:28)
[2019-01-21] MEDS: PROSOURCE / PROSTAT (PYXIS) 30 ML UDC GT SCH ×3 (09:20→17:28)
[2019-01-21] MEDS: SUCRALFATE 1 G/10 ML UDC GT SCH (09:20)
[2019-01-21] MEDS: ASCORBIC ACID 500 MG TABLET GT SCH (09:20)
[2019-01-21] MEDS: VIT B CMPLX 3/FA/VIT C/BIOTIN 1 TAB TABLET GT SCH (09:20)
[2019-01-21] MEDS: OMEPRAZOLE 20 MG CAPSULE.DR GT SCH (09:20)
[2019-01-21] MEDS: ZINC SULFATE 220 MG CAPSULE GT SCH (09:20)
[2019-01-21] MEDS: NEUTRA PHOS 1 POWD.PACKET GT SCH ×2 (09:20→21:08)
[2019-01-21] MEDS: METOPROLOL TARTRATE 50 MG TABLET GT SCH ×2 (09:21→21:07)
[2019-01-21] MEDS: HYDROCODONE/APAP 5/325MG 1 EACH TABLET GT SCH ×2 (09:21→21:08)
[2019-01-21] MEDS: BASAGLAR KWIKPEN SQ SCH ×2 (09:27→21:08)
[2019-01-21] MEDS: HYDROGEN PEROXIDE 480 ML BOTTLE TP SCH ×2 (10:00→21:42)
[2019-01-21] MEDS: DAKINS QUARTER STRENGTH (0.125%) 480 ML BOTTLE TOP SCH ×2 (10:00→21:41)
[2019-01-21] MEDS: NEOMY SULF/BACITRAC ZN/POLY 15 GM TUBE TP SCH ×2 (10:00→21:42)
[2019-01-21] MEDS: Z GUARD REMEDY 4 OZ OINT TP SCH ×2 (10:00→21:42)
[2019-01-21] MEDS: POVIDONE-IODINE OINT 28.4 GM TUBE TP SCH ×8 (10:00→21:42)
[2019-01-21] MEDS: VITAMINS A AND D 56.7 GM TUBE TP SCH ×6 (10:00→21:42)
--- NOTE | 2019-01-21 11:06 | NUR ---
Result of R LE arterial ultrasound and R femur X-ray faxed to Dr. Madsen's office. Confirmed that it was received by Nguyen. Left a message for MD to call family regarding the result.
--- NOTE | 2019-01-21 13:15 | NUR ---
Resident picked up by Ambulance via [facility] for hemodialysis treatment. Accompanied by 2 EMT's and 1 RT. Right upper chest catheter site intact, covered with dressing, dry and clean, no bleeding noted. Resident left building in stable condition. No respiratory distress noted.
--- NOTE | 2019-01-21 15:14 | NUR ---
INTERDISCIPLINARY TEAM CONFERENCE (IDT) was held today. Resident's and daughter Adrienne attended mtg over conference call. Daughter expressed concerns in a manolo she saw on pt's face and asked if it was because he may have stayed too long in one position. Daughter asked staff to move pt. slowly do avoid vomiting. Charge nurse Lilly said she would follow up with staff. Pt. continues in dialysis and vomit from time to time. There was no progress on the wound. Gangrene in the foot region is spreading and ultrasound and xray were ordered. Dr will discuss with family about next steps. Dr. Rocha and the interdisciplinary team reviewed the current plan of care in detail. Orders as well as treatment and medications were reviewed.No new orders were given.
--- NOTE | 2019-01-21 15:44 | NUR ---
RT Patient out of department for dialysis. Trach change not done @ this time.
--- NOTE | 2019-01-21 17:00 | NUR ---
Referred resident's wound to LOPEZ Mathias as current treatment in the sacral wound is not responding well. She saw the most recent photo and said that it needs to be debrided, she will inform Dr. Dhruv Trammell about it.
[2019-01-21] MEDS: NEPRO 1,000 ML BOTTLE GT PRN (17:10)
--- NOTE | 2019-01-21 17:10 | NUR ---
Resident returned from S/P hemodialysis treatment, no s/s of any complications noted. RT upper chest catheter site intact, no bleeding noted. Covered with dressing, clean and dry. Trach intact, patent, connected to vent with prescribed settingd as ordered. No respiratory distress noted.
[2019-01-21] MEDS: FENOFIBRATE NANOCRYS (145 MG) 145 MG TABLET GT SCH (21:09)
[2019-01-22] VITALS (8 sets, daily range): BP systolic 109–148; BP diastolic 53–85
[2019-01-22] MEDS: METOCLOPRAMIDE HCL 10 MG TABLET GT SCH ×4 (00:17→17:30)
[2019-01-22] MEDS: BLOOD SUGAR DIAGNOSTIC 1 EACH STRIP IN SCH ×4 (00:17→17:30)
[2019-01-22] MEDS: POLYVINYL ALCOHOL 15 ML BOTTLE EACHEYE SCH ×4 (00:17→17:30)
[2019-01-22] MEDS: INSULIN ASPART/LISPRO 100 UNIT/ML CARTRIDGE SQ PRN ×4 (00:19→17:31)
--- NOTE | 2019-01-22 03:18 | NUR ---
PT REC'D TRACHED ON [facility] VENT ON AC MODE. NO RESP DISTRESS OR SOB NOTED. TRACH IS PATENT AND SECURED. SX'D FOR MOD AMT OF PALE YELLOW SECRETIONS. ALARMS ARE SET AND AUDIBLE. VENT PLUGGED INTO RED OUTLET. AMBU BAG BEDSIDE. WILL CONTINUE TO MONITOR. Addendum: 01/22/19 at 0319 by MANISH DOMINGUEZ RT Amended: Links added.
[2019-01-22] MEDS: NEPRO 1,000 ML BOTTLE GT PRN (06:01)
--- NOTE | 2019-01-22 08:28 | NUR ---
RT PATIENT REC'D ON MECHANICAL VENTILATION WITH CHARTED AC SETTINGS. NO SOB NOTED AT THIS TIME. CUFF CHECKED VIA BULK PLANT OPERATOR. VENT PLUGGED INTO RED OUTLET. ALARMS ON AND AUDIBLE. SX DONE, MODERATE THICK YELLOW/WHITE SECRETIONS NOTED. WILL CONTINUE TO MONITOR. Addendum: 01/22/19 at 0829 by LESLY WARREN RT Amended: Links added.
[2019-01-22] MEDS: LACTOBACILLUS RHAMNOSUS GG 1 EACH CAP.SPRINK GT SCH ×2 (09:35→17:30)
[2019-01-22] MEDS: PROSOURCE / PROSTAT (PYXIS) 30 ML UDC GT SCH ×3 (09:35→17:30)
[2019-01-22] MEDS: ASCORBIC ACID 500 MG TABLET GT SCH (09:35)
[2019-01-22] MEDS: SUCRALFATE 1 G/10 ML UDC GT SCH (09:35)
[2019-01-22] MEDS: OMEPRAZOLE 20 MG CAPSULE.DR GT SCH (09:35)
[2019-01-22] MEDS: HYDROCODONE/APAP 5/325MG 1 EACH TABLET GT SCH ×2 (09:35→21:17)
[2019-01-22] MEDS: VIT B CMPLX 3/FA/VIT C/BIOTIN 1 TAB TABLET GT SCH (09:35)
[2019-01-22] MEDS: ZINC SULFATE 220 MG CAPSULE GT SCH (09:35)
[2019-01-22] MEDS: NEUTRA PHOS 1 POWD.PACKET GT SCH ×2 (09:35→21:17)
[2019-01-22] MEDS: METOPROLOL TARTRATE 50 MG TABLET GT SCH ×2 (09:35→21:17)
[2019-01-22] MEDS: BASAGLAR KWIKPEN SQ SCH ×2 (09:36→21:27)
[2019-01-22] MEDS: DAKINS QUARTER STRENGTH (0.125%) 480 ML BOTTLE TOP SCH (10:05)
[2019-01-22] MEDS: HYDROGEN PEROXIDE 480 ML BOTTLE TP SCH ×2 (10:05→21:18)
[2019-01-22] MEDS: Z GUARD REMEDY 4 OZ OINT TP SCH ×2 (10:05→21:18)
[2019-01-22] MEDS: VITAMINS A AND D 56.7 GM TUBE TP SCH ×2 (10:05)
[2019-01-22] MEDS: POVIDONE-IODINE OINT 28.4 GM TUBE TP SCH ×7 (10:05→21:18)
[2019-01-22] MEDS: NEOMY SULF/BACITRAC ZN/POLY 15 GM TUBE TP SCH ×2 (10:05→21:18)
--- NOTE | 2019-01-22 15:36 | NUR ---
MONTHLY TRACH TUBE CHANGE WAS DONE PER PROTOCOL. NO SIGNS OF BLEEDING AROUND STOMA. EQUAL BILATERAL BREATH SOUNDS NOTED. NO SOB NO RESPIRATORY DISTRESS NOTED AT THIS TIME. PATIENT COMFORTABLE. WILL CONTINUE TO MONITOR. Addendum: 01/22/19 at 1538 by LESLY WARREN RT Amended: Links added.
[2019-01-22] MEDS: FENOFIBRATE NANOCRYS (145 MG) 145 MG TABLET GT SCH (21:18)
[2019-01-23] VITALS (8 sets, daily range): BP systolic 128–148; BP diastolic 65–87
[2019-01-23] MEDS: POLYVINYL ALCOHOL 15 ML BOTTLE EACHEYE SCH ×5 (00:48→23:55)
[2019-01-23] MEDS: METOCLOPRAMIDE HCL 10 MG TABLET GT SCH ×5 (00:48→23:55)
[2019-01-23] MEDS: BLOOD SUGAR DIAGNOSTIC 1 EACH STRIP IN SCH ×4 (00:48→17:12)
[2019-01-23] MEDS: INSULIN ASPART/LISPRO 100 UNIT/ML CARTRIDGE SQ PRN ×4 (00:49→17:14)
[2019-01-23] MEDS: CLONIDINE HCL 0.1 MG TABLET GT PRN (00:53)
[2019-01-23] MEDS: NEPRO 1,000 ML BOTTLE GT PRN (06:19)
--- NOTE | 2019-01-23 09:00 | NUR ---
Seen and examined by Dr. Dia, no new order given.
[2019-01-23] MEDS: HYDROCODONE/APAP 5/325MG 1 EACH TABLET GT SCH ×2 (09:30→20:55)
[2019-01-23] MEDS: ZINC SULFATE 220 MG CAPSULE GT SCH (09:32)
[2019-01-23] MEDS: SUCRALFATE 1 G/10 ML UDC GT SCH (09:32)
[2019-01-23] MEDS: PROSOURCE / PROSTAT (PYXIS) 30 ML UDC GT SCH ×3 (09:32→17:11)
[2019-01-23] MEDS: VIT B CMPLX 3/FA/VIT C/BIOTIN 1 TAB TABLET GT SCH (09:32)
[2019-01-23] MEDS: ASCORBIC ACID 500 MG TABLET GT SCH (09:32)
[2019-01-23] MEDS: LACTOBACILLUS RHAMNOSUS GG 1 EACH CAP.SPRINK GT SCH ×2 (09:32→17:11)
[2019-01-23] MEDS: OMEPRAZOLE 20 MG CAPSULE.DR GT SCH (09:32)
[2019-01-23] MEDS: NEUTRA PHOS 1 POWD.PACKET GT SCH ×2 (09:32→20:54)
[2019-01-23] MEDS: BASAGLAR KWIKPEN SQ SCH ×2 (09:33→21:07)
[2019-01-23] MEDS: METOPROLOL TARTRATE 50 MG TABLET GT SCH ×2 (09:40→20:55)
[2019-01-23] MEDS: POVIDONE-IODINE OINT 28.4 GM TUBE TP SCH ×4 (10:05→20:56)
[2019-01-23] MEDS: NEOMY SULF/BACITRAC ZN/POLY 15 GM TUBE TP SCH ×2 (10:05→20:57)
[2019-01-23] MEDS: HYDROGEN PEROXIDE 480 ML BOTTLE TP SCH ×2 (10:05→20:57)
[2019-01-23] MEDS: Z GUARD REMEDY 4 OZ OINT TP SCH ×2 (10:05→20:57)
--- NOTE | 2019-01-23 11:34 | NUR ---
RT PATIENT REC'D ON MECHANICAL VENTILATION WITH CHARTED AC SETTINGS. NO SOB NOTED AT THIS TIME. CUFF CHECKED VIA DOOR TO DOOR SALESMAN. VENT PLUGGED INTO RED OUTLET. ALARMS ON AND AUDIBLE. SX DONE, MODERATE THICK YELLOW/WHITE SECRETIONS NOTED. WILL CONTINUE TO MONITOR.
[2019-01-23] MEDS: FENOFIBRATE NANOCRYS (145 MG) 145 MG TABLET GT SCH (22:00)
[2019-01-24] VITALS (8 sets, daily range): BP systolic 129–158; BP diastolic 68–81
[2019-01-24] MEDS: BLOOD SUGAR DIAGNOSTIC 1 EACH STRIP IN SCH ×4 (00:31→17:51)
[2019-01-24] MEDS: INSULIN ASPART/LISPRO 100 UNIT/ML CARTRIDGE SQ PRN ×4 (00:32→17:52)
[2019-01-24] MEDS: NEPRO 1,000 ML BOTTLE GT PRN (01:58)
[2019-01-24] MEDS: POLYVINYL ALCOHOL 15 ML BOTTLE EACHEYE SCH ×3 (05:28→17:51)
[2019-01-24] MEDS: METOCLOPRAMIDE HCL 10 MG TABLET GT SCH ×3 (05:28→17:51)
[2019-01-24] MEDS: HYDROCODONE/APAP 5/325MG 1 EACH TABLET GT SCH ×2 (09:07→20:49)
[2019-01-24] MEDS: SUCRALFATE 1 G/10 ML UDC GT SCH (09:23)
[2019-01-24] MEDS: OMEPRAZOLE 20 MG CAPSULE.DR GT SCH (09:23)
[2019-01-24] MEDS: ASCORBIC ACID 500 MG TABLET GT SCH (09:23)
[2019-01-24] MEDS: ZINC SULFATE 220 MG CAPSULE GT SCH (09:23)
[2019-01-24] MEDS: LACTOBACILLUS RHAMNOSUS GG 1 EACH CAP.SPRINK GT SCH ×2 (09:23→17:51)
[2019-01-24] MEDS: BASAGLAR KWIKPEN SQ SCH ×2 (09:23→20:49)
[2019-01-24] MEDS: NEUTRA PHOS 1 POWD.PACKET GT SCH ×2 (09:23→20:48)
[2019-01-24] MEDS: VIT B CMPLX 3/FA/VIT C/BIOTIN 1 TAB TABLET GT SCH (09:23)
[2019-01-24] MEDS: PROSOURCE / PROSTAT (PYXIS) 30 ML UDC GT SCH ×3 (09:23→17:51)
[2019-01-24] MEDS: METOPROLOL TARTRATE 50 MG TABLET GT SCH ×2 (09:23→20:48)
[2019-01-24] MEDS: Z GUARD REMEDY 4 OZ OINT TP SCH ×2 (09:40→20:51)
[2019-01-24] MEDS: HYDROGEN PEROXIDE 480 ML BOTTLE TP SCH ×2 (09:40→20:50)
[2019-01-24] MEDS: POVIDONE-IODINE OINT 28.4 GM TUBE TP SCH ×4 (09:40→20:50)
[2019-01-24] MEDS: NEOMY SULF/BACITRAC ZN/POLY 15 GM TUBE TP SCH ×2 (09:40→20:50)
--- NOTE | 2019-01-24 13:00 | NUR ---
Resident picked up by Ambulance via [facility] for hemodialyis treatment, accompanied by 2 EMT's and 1 RT. RT upper chest permacath dialysis site intact, no bleeding, covered with dressing, clean and dry. Resident left building in stable condition.
--- NOTE | 2019-01-24 16:44 | NUR ---
Informed Dr Dia that pt's blood sugars have been running high (yesterday was 311, 309 and today 190, 230). Pt on Basaglar insulin [address] Dia said he will look into it.
--- NOTE | 2019-01-24 17:15 | NUR ---
Resident returned from hemodialyis treatment, no s/s of any complications noted. RT upper chest permacath intact, no bleeding noted, covered with dressing, clean and dry. No respiratory distress noted. Afebrile.
--- NOTE | 2019-01-24 18:15 | NUR ---
Dr Dia ordered to increase Basaglar Kwikpen insulin from 6 units to 8 units SC q 12 hours.
--- NOTE | 2019-01-24 19:05 | NUR ---
Seen by LOPEZ Phipps. Showed her pt's rashes on the abdomen, arms, and right thigh. She ordered to apply Nizoral cream to rashes.
[2019-01-24] MEDS ORDERED: HOME MED MISCELLANEOUS SQ SCH (21:00)
[2019-01-24] MEDS: FENOFIBRATE NANOCRYS (145 MG) 145 MG TABLET GT SCH (21:19)
[2019-01-25] VITALS (8 sets, daily range): BP systolic 106–152; BP diastolic 47–79
[2019-01-25] MEDS: BLOOD SUGAR DIAGNOSTIC 1 EACH STRIP IN SCH ×4 (00:32→17:52)
[2019-01-25] MEDS: INSULIN ASPART/LISPRO 100 UNIT/ML CARTRIDGE SQ PRN ×3 (00:32→17:53)
[2019-01-25] MEDS: POLYVINYL ALCOHOL 15 ML BOTTLE EACHEYE SCH ×4 (00:32→17:52)
[2019-01-25] MEDS: METOCLOPRAMIDE HCL 10 MG TABLET GT SCH ×4 (00:32→17:52)
[2019-01-25] MEDS: NEPRO 1,000 ML BOTTLE GT PRN (05:43)
--- NOTE | 2019-01-25 08:00 | NUR ---
RT NOTE: AFTER ROUTINE TRACHEAL SUCTION PATIENT VOMITED A SMALL AMOUNT OF DWYER CONTENT. PATIENT SAT UP IN BAD AND NURSE(BRANDYN)NOTIFIED.
[2019-01-25] MEDS: ASCORBIC ACID 500 MG TABLET GT SCH (09:59)
[2019-01-25] MEDS: OMEPRAZOLE 20 MG CAPSULE.DR GT SCH (09:59)
[2019-01-25] MEDS: BASAGLAR KWIKPEN SQ SCH ×2 (09:59→21:06)
[2019-01-25] MEDS: NEUTRA PHOS 1 POWD.PACKET GT SCH ×2 (09:59→20:11)
[2019-01-25] MEDS: SUCRALFATE 1 G/10 ML UDC GT SCH (09:59)
[2019-01-25] MEDS: METOPROLOL TARTRATE 50 MG TABLET GT SCH ×2 (09:59→20:12)
[2019-01-25] MEDS: LACTOBACILLUS RHAMNOSUS GG 1 EACH CAP.SPRINK GT SCH ×2 (09:59→17:52)
[2019-01-25] MEDS: ZINC SULFATE 220 MG CAPSULE GT SCH (09:59)
[2019-01-25] MEDS: PROSOURCE / PROSTAT (PYXIS) 30 ML UDC GT SCH ×3 (09:59→17:52)
[2019-01-25] MEDS: VIT B CMPLX 3/FA/VIT C/BIOTIN 1 TAB TABLET GT SCH (09:59)
[2019-01-25] MEDS: HYDROGEN PEROXIDE 480 ML BOTTLE TP SCH ×2 (10:30→20:13)
--- NOTE | 2019-01-25 11:06 | NUR ---
Seen and examined by Dr. Rocha, NNO given.
[2019-01-25] MEDS: HYDROCODONE/APAP 5/325MG 1 EACH TABLET GT SCH ×2 (12:46→20:13)
[2019-01-25] MEDS: POVIDONE-IODINE OINT 28.4 GM TUBE TP SCH ×3 (13:30→20:13)
[2019-01-25] MEDS: Z GUARD REMEDY 4 OZ OINT TP SCH ×2 (13:30→20:14)
[2019-01-25] MEDS: NEOMY SULF/BACITRAC ZN/POLY 15 GM TUBE TP SCH ×2 (13:30→20:13)
[2019-01-25] MEDS: DAKINS QUARTER STRENGTH (0.125%) 480 ML BOTTLE TOP SCH (20:13)
[2019-01-25] MEDS: FENOFIBRATE NANOCRYS (145 MG) 145 MG TABLET GT SCH (21:25)
[2019-01-26] VITALS (7 sets, daily range): BP systolic 124–162; BP diastolic 59–83
[2019-01-26] MEDS: METOCLOPRAMIDE HCL 10 MG TABLET GT SCH ×5 (00:36→23:25)
[2019-01-26] MEDS: BLOOD SUGAR DIAGNOSTIC 1 EACH STRIP IN SCH ×5 (00:36→23:49)
[2019-01-26] MEDS: POLYVINYL ALCOHOL 15 ML BOTTLE EACHEYE SCH ×5 (00:36→23:25)
[2019-01-26] MEDS: INSULIN ASPART/LISPRO 100 UNIT/ML CARTRIDGE SQ PRN ×5 (00:38→23:53)
[2019-01-26] MEDS: NEPRO 1,000 ML BOTTLE GT PRN (03:22)
[2019-01-26] MEDS: Z GUARD REMEDY 4 OZ OINT TP SCH ×2 (09:00→22:00)
[2019-01-26] MEDS: HYDROGEN PEROXIDE 480 ML BOTTLE TP SCH ×2 (09:00→22:00)
[2019-01-26] MEDS: NEUTRA PHOS 1 POWD.PACKET GT SCH ×2 (09:28→21:17)
[2019-01-26] MEDS: SUCRALFATE 1 G/10 ML UDC GT SCH (09:28)
[2019-01-26] MEDS: LACTOBACILLUS RHAMNOSUS GG 1 EACH CAP.SPRINK GT SCH ×2 (09:28→17:00)
[2019-01-26] MEDS: VIT B CMPLX 3/FA/VIT C/BIOTIN 1 TAB TABLET GT SCH (09:28)
[2019-01-26] MEDS: OMEPRAZOLE 20 MG CAPSULE.DR GT SCH (09:29)
[2019-01-26] MEDS: PROSOURCE / PROSTAT (PYXIS) 30 ML UDC GT SCH ×3 (09:29→17:00)
[2019-01-26] MEDS: HYDROCODONE/APAP 5/325MG 1 EACH TABLET GT SCH ×2 (09:29→21:17)
[2019-01-26] MEDS: ASCORBIC ACID 500 MG TABLET GT SCH (09:29)
[2019-01-26] MEDS: ZINC SULFATE 220 MG CAPSULE GT SCH (09:29)
[2019-01-26] MEDS: BASAGLAR KWIKPEN SQ SCH ×2 (09:50→21:17)
[2019-01-26] MEDS: DAKINS QUARTER STRENGTH (0.125%) 480 ML BOTTLE TOP SCH ×2 (10:00→22:00)
[2019-01-26] MEDS: NEOMY SULF/BACITRAC ZN/POLY 15 GM TUBE TP SCH ×2 (10:00→22:00)
[2019-01-26] MEDS: POVIDONE-IODINE OINT 28.4 GM TUBE TP SCH ×2 (10:00→22:00)
[2019-01-26] MEDS: METOPROLOL TARTRATE 50 MG TABLET GT SCH ×2 (10:02→21:17)
--- NOTE | 2019-01-26 18:07 | NUR ---
RT Pt brought back from dialysis. No respiratory distress noted. Vent alarms are set and audible. Vent is plugged into red outlet. Addendum: 01/26/19 at 1808 by SAJAN BOLANOS RT Amended: Links added.
[2019-01-26] MEDS: FENOFIBRATE NANOCRYS (145 MG) 145 MG TABLET GT SCH (21:18)
[2019-01-27] VITALS (8 sets, daily range): BP systolic 126–153; BP diastolic 71–97
[2019-01-27] MEDS: NEPRO 1,000 ML BOTTLE GT PRN ×2 (05:46→23:00)
[2019-01-27] MEDS: BLOOD SUGAR DIAGNOSTIC 1 EACH STRIP IN SCH ×3 (05:46→18:12)
[2019-01-27] MEDS: POLYVINYL ALCOHOL 15 ML BOTTLE EACHEYE SCH ×3 (05:46→18:12)
[2019-01-27] MEDS: METOCLOPRAMIDE HCL 10 MG TABLET GT SCH ×3 (05:46→18:12)
[2019-01-27] MEDS: INSULIN ASPART/LISPRO 100 UNIT/ML CARTRIDGE SQ PRN ×3 (05:48→18:11)
--- NOTE | 2019-01-27 09:00 | NUR ---
RT PATIENT REC'D ON MECHANICAL VENTILATION WITH CHARTED AC SETTINGS. NO SOB NOTED AT THIS TIME. CUFF CHECKED VIA REPLENISHMENT MERCHANDISING ASSOCIATE. VENT PLUGGED INTO RED OUTLET. ALARMS ON AND AUDIBLE. SX DONE, MODERATE THICK YELLOW/WHITE SECRETIONS NOTED. WILL CONTINUE TO MONITOR. Addendum: 01/27/19 at 0900 by LESLY WARREN RT Amended: Links added.
[2019-01-27] MEDS: LACTOBACILLUS RHAMNOSUS GG 1 EACH CAP.SPRINK GT SCH ×2 (09:37→17:00)
[2019-01-27] MEDS: SUCRALFATE 1 G/10 ML UDC GT SCH (09:37)
[2019-01-27] MEDS: METOPROLOL TARTRATE 50 MG TABLET GT SCH ×2 (09:37→21:19)
[2019-01-27] MEDS: VIT B CMPLX 3/FA/VIT C/BIOTIN 1 TAB TABLET GT SCH (09:37)
[2019-01-27] MEDS: NEUTRA PHOS 1 POWD.PACKET GT SCH ×2 (09:37→21:19)
[2019-01-27] MEDS: HYDROCODONE/APAP 5/325MG 1 EACH TABLET GT SCH ×2 (09:38→21:20)
[2019-01-27] MEDS: OMEPRAZOLE 20 MG CAPSULE.DR GT SCH (09:38)
[2019-01-27] MEDS: ZINC SULFATE 220 MG CAPSULE GT SCH (09:38)
[2019-01-27] MEDS: ASCORBIC ACID 500 MG TABLET GT SCH (09:38)
[2019-01-27] MEDS: PROSOURCE / PROSTAT (PYXIS) 30 ML UDC GT SCH ×3 (09:38→17:00)
[2019-01-27] MEDS: BASAGLAR KWIKPEN SQ SCH (09:55)
[2019-01-27] MEDS: HYDROGEN PEROXIDE 480 ML BOTTLE TP SCH ×2 (10:10→22:00)
[2019-01-27] MEDS: KETOCONAZOLE SHAMPOO 120 ML BOTTLE TP SCH (10:10)
[2019-01-27] MEDS: NEOMY SULF/BACITRAC ZN/POLY 15 GM TUBE TP SCH ×2 (10:10→22:00)
[2019-01-27] MEDS: Z GUARD REMEDY 4 OZ OINT TP SCH ×2 (10:10→22:00)
[2019-01-27] MEDS: POVIDONE-IODINE OINT 28.4 GM TUBE TP SCH ×2 (10:10→22:00)
[2019-01-27] MEDS: DAKINS QUARTER STRENGTH (0.125%) 480 ML BOTTLE TOP SCH ×2 (10:10→22:00)
[2019-01-27] MEDS: FENOFIBRATE NANOCRYS (145 MG) 145 MG TABLET GT SCH (21:20)
--- NOTE | 2019-01-27 21:41 | NUR ---
RT NOTE PATIENT RECEIVED TRACHED ON MECHANICAL VENTILATION. CUFF CHECKED VIA ENVELOPE ADDRESSER. SX DONE, SMALL THICK WHITE YELLOW SECRETIONS NOTED. ALARMS ON AND AUDIBLE. VENT PLUGGED TO RED OUTLET. NO DISTRESS NOTED. WILL MONITOR T/O SHIFT. Addendum: 01/27/19 at 2142 by MARCIA YOUNG RT Amended: Links added.
[2019-01-28] VITALS (8 sets, daily range): BP systolic 137–149; BP diastolic 76–91
[2019-01-28] MEDS: METOCLOPRAMIDE HCL 10 MG TABLET GT SCH ×4 (00:01→18:00)
[2019-01-28] MEDS: BLOOD SUGAR DIAGNOSTIC 1 EACH STRIP IN SCH ×4 (00:01→18:00)
[2019-01-28] MEDS: POLYVINYL ALCOHOL 15 ML BOTTLE EACHEYE SCH ×4 (00:01→17:59)
[2019-01-28] MEDS: INSULIN ASPART/LISPRO 100 UNIT/ML CARTRIDGE SQ PRN ×3 (00:03→12:35)
[2019-01-28] MEDS: OMEPRAZOLE 20 MG CAPSULE.DR GT SCH (09:00)
[2019-01-28] MEDS: PROSOURCE / PROSTAT (PYXIS) 30 ML UDC GT SCH ×3 (09:00→17:59)
[2019-01-28] MEDS: ZINC SULFATE 220 MG CAPSULE GT SCH (09:00)
[2019-01-28] MEDS: ASCORBIC ACID 500 MG TABLET GT SCH (09:00)
[2019-01-28] MEDS: BASAGLAR KWIKPEN SQ SCH ×2 (09:57→21:36)
[2019-01-28] MEDS: SUCRALFATE 1 G/10 ML UDC GT SCH (09:59)
[2019-01-28] MEDS: LACTOBACILLUS RHAMNOSUS GG 1 EACH CAP.SPRINK GT SCH ×2 (09:59→17:59)
[2019-01-28] MEDS: METOPROLOL TARTRATE 50 MG TABLET GT SCH ×2 (09:59→21:36)
[2019-01-28] MEDS: NEUTRA PHOS 1 POWD.PACKET GT SCH ×2 (09:59→21:36)
[2019-01-28] MEDS: VIT B CMPLX 3/FA/VIT C/BIOTIN 1 TAB TABLET GT SCH (09:59)
[2019-01-28] MEDS: HYDROCODONE/APAP 5/325MG 1 EACH TABLET GT SCH ×2 (10:00→21:36)
[2019-01-28] MEDS: Z GUARD REMEDY 4 OZ OINT TP SCH ×2 (10:30→21:59)
[2019-01-28] MEDS: POVIDONE-IODINE OINT 28.4 GM TUBE TP SCH ×2 (10:30→21:59)
[2019-01-28] MEDS: DAKINS QUARTER STRENGTH (0.125%) 480 ML BOTTLE TOP SCH ×2 (10:30→21:59)
[2019-01-28] MEDS: NEOMY SULF/BACITRAC ZN/POLY 15 GM TUBE TP SCH ×2 (10:30→21:59)
[2019-01-28] MEDS: HYDROGEN PEROXIDE 480 ML BOTTLE TP SCH ×2 (10:30→21:59)
[2019-01-28] MEDS: TRIAMCINOLONE ACETONIDE 0.5% 15 GM TUBE TP SCH ×2 (15:00→22:00)
--- NOTE | 2019-01-28 15:30 | NUR ---
Referred to Dr. Homero Ivan resident's abdominal/ R torso and R arm rashes for treatment order. New order given for Triamcinolone 0.5% Q8 hours x 7 days then evaluate. Notified patient's daughter Agusto regarding the new order. Christine had mentioned that she is still waiting for Dr. Madsen to call her however she has not heard from him yet. Called Dr. Madsen's office and relayed the message, according to Torrie, Dr. Madsen said that he attempted to call the daughter but no response. Gave a contact number to reach Christine .
--- NOTE | 2019-01-28 16:30 | NUR ---
Spoke with AK from [facility] pharmacy to call facility if Triamcinolone is covered by insurance or not. Also requested to send a bigger tube since the area to cover is big.
--- NOTE | 2019-01-28 18:00 | NUR ---
Called Christine, resident's daughter to find out whether Dr. Madsen called her or not. She said that he has not called her yet. Gave Dr. Madsen's office number and suggested to call the office during office hours and so she can follow-up with MD herself. Endorsed.
[2019-01-28] MEDS: FENOFIBRATE NANOCRYS (145 MG) 145 MG TABLET GT SCH (21:37)
[2019-01-29] VITALS (8 sets, daily range): BP systolic 121–161; BP diastolic 62–90
[2019-01-29] MEDS: POLYVINYL ALCOHOL 15 ML BOTTLE EACHEYE SCH ×4 (00:12→17:22)
[2019-01-29] MEDS: BLOOD SUGAR DIAGNOSTIC 1 EACH STRIP IN SCH ×4 (00:12→17:22)
[2019-01-29] MEDS: METOCLOPRAMIDE HCL 10 MG TABLET GT SCH ×4 (00:12→17:22)
[2019-01-29] MEDS: INSULIN ASPART/LISPRO 100 UNIT/ML CARTRIDGE SQ PRN ×4 (00:15→17:21)
[2019-01-29] MEDS: NEPRO 1,000 ML BOTTLE GT PRN (00:20)
[2019-01-29] MEDS: TRIAMCINOLONE ACETONIDE 0.5% 15 GM TUBE TP SCH ×3 (07:00→22:47)
[2019-01-29] MEDS: BASAGLAR KWIKPEN SQ SCH ×2 (09:21→21:00)
[2019-01-29] MEDS: SUCRALFATE 1 G/10 ML UDC GT SCH (09:23)
[2019-01-29] MEDS: LACTOBACILLUS RHAMNOSUS GG 1 EACH CAP.SPRINK GT SCH ×2 (09:23→17:22)
[2019-01-29] MEDS: VIT B CMPLX 3/FA/VIT C/BIOTIN 1 TAB TABLET GT SCH (09:24)
[2019-01-29] MEDS: HYDROCODONE/APAP 5/325MG 1 EACH TABLET GT SCH ×2 (09:24→21:00)
[2019-01-29] MEDS: NEUTRA PHOS 1 POWD.PACKET GT SCH ×2 (09:24→21:00)
[2019-01-29] MEDS: METOPROLOL TARTRATE 50 MG TABLET GT SCH ×2 (09:24→21:00)
[2019-01-29] MEDS: ASCORBIC ACID 500 MG TABLET GT SCH (09:25)
[2019-01-29] MEDS: OMEPRAZOLE 20 MG CAPSULE.DR GT SCH (09:25)
[2019-01-29] MEDS: PROSOURCE / PROSTAT (PYXIS) 30 ML UDC GT SCH ×3 (09:25→17:22)
[2019-01-29] MEDS: ZINC SULFATE 220 MG CAPSULE GT SCH (09:25)
[2019-01-29] MEDS: HYDROGEN PEROXIDE 480 ML BOTTLE TP SCH ×2 (09:55→21:00)
[2019-01-29] MEDS: DAKINS QUARTER STRENGTH (0.125%) 480 ML BOTTLE TOP SCH ×2 (09:55→21:00)
[2019-01-29] MEDS: Z GUARD REMEDY 4 OZ OINT TP SCH ×2 (09:55→21:00)
[2019-01-29] MEDS: POVIDONE-IODINE OINT 28.4 GM TUBE TP SCH ×2 (09:55→21:00)
[2019-01-29] MEDS: NEOMY SULF/BACITRAC ZN/POLY 15 GM TUBE TP SCH ×2 (09:55→21:00)
--- NOTE | 2019-01-29 15:50 | NUR ---
RT NOTE: RT NOTE: RECEIVED PT ON ORDERED AC VENT SETTINGS. NO RESPIRATORY DISTRESS NOTED. TRACH CHECKED SECURE AND PATENT. SXD AND LAVAGED PT Q ROUNDS AND NEEDED. EMERGENCY EQUIPMENT @ BEDSIDE. ALARMS CHECKED ON AND AUDIBLE. WILL CONTINUE TO MONITOR.
[2019-01-29] MEDS: FENOFIBRATE NANOCRYS (145 MG) 145 MG TABLET GT SCH (22:47)
--- NOTE | 2019-01-29 23:24 | NUR ---
FAMILY WAS ASKING REGARDING PATIENT'S RASHES. CHARGE NURSE EXPLAINED TO THEM THAT THE NEW TREATMENT, TRIAMCINOLONE CREAM STARTED ONLY YESTERDAY AND WE SHOULD GIVE IT SOME TIME TO SEE IF IT WILL WORK. THEY AGREED. CHARGE NURSE ALSO EXPLAINED TO THEM THAT IF THE CURRENT TREATMENT DOESN'T WORK, THEY MIGHT ORDER A TEST TO FIND OUT WHAT'S CAUSING THE RASH. THEY VERBALIZED UNDERSTANDING.
[2019-01-30] VITALS: BP 135/73
[2019-01-30] MEDS: BLOOD SUGAR DIAGNOSTIC 1 EACH STRIP IN SCH ×5 (00:18→23:13)
[2019-01-30] MEDS: METOCLOPRAMIDE HCL 10 MG TABLET GT SCH ×5 (00:18→23:13)
[2019-01-30] MEDS: POLYVINYL ALCOHOL 15 ML BOTTLE EACHEYE SCH ×5 (00:18→23:13)
[2019-01-30] MEDS: INSULIN ASPART/LISPRO 100 UNIT/ML CARTRIDGE SQ PRN ×5 (00:24→23:14)
[2019-01-30 04:00] VITALS: BP 139/76
[2019-01-30] MEDS: NEPRO 1,000 ML BOTTLE GT PRN ×2 (04:42→16:08)
[2019-01-30] MEDS: TRIAMCINOLONE ACETONIDE 0.5% 15 GM TUBE TP SCH ×3 (07:00→23:13)
[2019-01-30 08:15] VITALS: BP 131/80
[2019-01-30] MEDS: HYDROCODONE/APAP 5/325MG 1 EACH TABLET GT SCH ×2 (09:00→21:16)
[2019-01-30] MEDS: Z GUARD REMEDY 4 OZ OINT TP SCH ×2 (09:00→21:16)
[2019-01-30] MEDS: ASCORBIC ACID 500 MG TABLET GT SCH (09:00)
[2019-01-30] MEDS: POVIDONE-IODINE OINT 28.4 GM TUBE TP SCH ×2 (09:00→21:16)
[2019-01-30] MEDS: LACTOBACILLUS RHAMNOSUS GG 1 EACH CAP.SPRINK GT SCH ×2 (09:00→16:25)
[2019-01-30] MEDS: VIT B CMPLX 3/FA/VIT C/BIOTIN 1 TAB TABLET GT SCH (09:00)
[2019-01-30] MEDS: NEUTRA PHOS 1 POWD.PACKET GT SCH ×2 (09:00→21:15)
[2019-01-30] MEDS: ZINC SULFATE 220 MG CAPSULE GT SCH (09:00)
[2019-01-30] MEDS: NEOMY SULF/BACITRAC ZN/POLY 15 GM TUBE TP SCH ×2 (09:00→21:16)
[2019-01-30] MEDS: METOPROLOL TARTRATE 50 MG TABLET GT SCH ×2 (09:00→21:15)
[2019-01-30] MEDS: SUCRALFATE 1 G/10 ML UDC GT SCH (09:00)
[2019-01-30] MEDS: OMEPRAZOLE 20 MG CAPSULE.DR GT SCH (09:00)
[2019-01-30] MEDS: HYDROGEN PEROXIDE 480 ML BOTTLE TP SCH ×2 (09:00→21:16)
[2019-01-30] MEDS: DAKINS QUARTER STRENGTH (0.125%) 480 ML BOTTLE TOP SCH ×2 (09:00→21:16)
[2019-01-30] MEDS: PROSOURCE / PROSTAT (PYXIS) 30 ML UDC GT SCH ×3 (09:00→16:25)
[2019-01-30] MEDS: BASAGLAR KWIKPEN SQ SCH ×2 (09:52→21:16)
[2019-01-30 17:13] VITALS: BP 121/62
[2019-01-30 19:35] VITALS: BP 96/55
[2019-01-30 21:13] VITALS: BP 159/84
[2019-01-30] MEDS: FENOFIBRATE NANOCRYS (145 MG) 145 MG TABLET GT SCH (21:16)
[2019-01-31 03:05] VITALS: BP 142/62
[2019-01-31 06:10] VITALS: BP 148/60
[2019-01-31] MEDS: POLYVINYL ALCOHOL 15 ML BOTTLE EACHEYE SCH ×4 (06:11→23:24)
[2019-01-31] MEDS: BLOOD SUGAR DIAGNOSTIC 1 EACH STRIP IN SCH ×4 (06:11→23:24)
[2019-01-31] MEDS: METOCLOPRAMIDE HCL 10 MG TABLET GT SCH ×4 (06:11→23:24)
[2019-01-31] MEDS: INSULIN ASPART/LISPRO 100 UNIT/ML CARTRIDGE SQ PRN ×4 (06:12→23:25)
[2019-01-31] MEDS: TRIAMCINOLONE ACETONIDE 0.5% 15 GM TUBE TP SCH ×3 (07:00→23:24)
[2019-01-31 07:48] VITALS: BP 130/79
[2019-01-31] MEDS: DAKINS QUARTER STRENGTH (0.125%) 480 ML BOTTLE TOP SCH ×2 (09:00→21:09)
[2019-01-31] MEDS: HYDROGEN PEROXIDE 480 ML BOTTLE TP SCH ×2 (09:00→21:10)
[2019-01-31] MEDS: Z GUARD REMEDY 4 OZ OINT TP SCH ×2 (09:00→21:10)
[2019-01-31] MEDS: NEOMY SULF/BACITRAC ZN/POLY 15 GM TUBE TP SCH ×2 (09:00→21:10)
[2019-01-31] MEDS: POVIDONE-IODINE OINT 28.4 GM TUBE TP SCH ×2 (09:00→21:09)
[2019-01-31] MEDS: SUCRALFATE 1 G/10 ML UDC GT SCH (09:49)
[2019-01-31] MEDS: NEUTRA PHOS 1 POWD.PACKET GT SCH ×2 (09:50→21:09)
[2019-01-31] MEDS: METOPROLOL TARTRATE 50 MG TABLET GT SCH ×2 (09:50→21:09)
[2019-01-31] MEDS: LACTOBACILLUS RHAMNOSUS GG 1 EACH CAP.SPRINK GT SCH ×2 (09:50→17:00)
[2019-01-31] MEDS: VIT B CMPLX 3/FA/VIT C/BIOTIN 1 TAB TABLET GT SCH (09:50)
[2019-01-31] MEDS: OMEPRAZOLE 20 MG CAPSULE.DR GT SCH (09:53)
[2019-01-31] MEDS: ASCORBIC ACID 500 MG TABLET GT SCH (09:53)
[2019-01-31] MEDS: HYDROCODONE/APAP 5/325MG 1 EACH TABLET GT SCH ×2 (09:53→21:09)
[2019-01-31] MEDS: PROSOURCE / PROSTAT (PYXIS) 30 ML UDC GT SCH ×3 (09:53→17:00)
[2019-01-31] MEDS: ZINC SULFATE 220 MG CAPSULE GT SCH (09:53)
[2019-01-31] MEDS: BASAGLAR KWIKPEN SQ SCH ×2 (09:55→21:09)
[2019-01-31 15:27] VITALS: BP 130/79
[2019-01-31] MEDS: NEPRO 1,000 ML BOTTLE GT PRN (18:05)
--- NOTE | 2019-01-31 18:19 | NUR ---
RT Pt brought back from dialysis. Vent alarms are set and audible with BVM by bedside. Vent is plugged into red outlet. No respiratory distress noted. Addendum: 01/31/19 at 1829 by SAJAN BOLANOS RT Amended: Links added.
[2019-01-31 19:59] VITALS: BP 156/95
[2019-01-31 21:07] VITALS: BP 156/95
[2019-01-31] MEDS: FENOFIBRATE NANOCRYS (145 MG) 145 MG TABLET GT SCH (21:10)
[2019-02-01] VITALS (7 sets, daily range): BP systolic 141–158; BP diastolic 70–75
[2019-02-01] MEDS: METOCLOPRAMIDE HCL 10 MG TABLET GT SCH ×3 (05:42→17:57)
[2019-02-01] MEDS: POLYVINYL ALCOHOL 15 ML BOTTLE EACHEYE SCH ×3 (05:42→17:57)
[2019-02-01] MEDS: BLOOD SUGAR DIAGNOSTIC 1 EACH STRIP IN SCH ×3 (05:54→17:57)
[2019-02-01] MEDS: INSULIN ASPART/LISPRO 100 UNIT/ML CARTRIDGE SQ PRN ×3 (05:55→18:03)
[2019-02-01] MEDS: TRIAMCINOLONE ACETONIDE 0.5% 15 GM TUBE TP SCH ×3 (07:00→23:11)
[2019-02-01] MEDS: POVIDONE-IODINE OINT 28.4 GM TUBE TP SCH ×2 (09:00→21:18)
[2019-02-01] MEDS: ZINC SULFATE 220 MG CAPSULE GT SCH (09:00)
[2019-02-01] MEDS: LACTOBACILLUS RHAMNOSUS GG 1 EACH CAP.SPRINK GT SCH ×2 (09:00→17:57)
[2019-02-01] MEDS: NEOMY SULF/BACITRAC ZN/POLY 15 GM TUBE TP SCH ×2 (09:00→21:18)
[2019-02-01] MEDS: HYDROGEN PEROXIDE 480 ML BOTTLE TP SCH ×2 (09:00→21:18)
[2019-02-01] MEDS: Z GUARD REMEDY 4 OZ OINT TP SCH ×2 (09:00→21:18)
[2019-02-01] MEDS: VIT B CMPLX 3/FA/VIT C/BIOTIN 1 TAB TABLET GT SCH (09:00)
[2019-02-01] MEDS: DAKINS QUARTER STRENGTH (0.125%) 480 ML BOTTLE TOP SCH ×2 (09:00→21:18)
[2019-02-01] MEDS: ASCORBIC ACID 500 MG TABLET GT SCH (09:00)
[2019-02-01] MEDS: OMEPRAZOLE 20 MG CAPSULE.DR GT SCH (09:00)
[2019-02-01] MEDS: NEUTRA PHOS 1 POWD.PACKET GT SCH ×2 (09:00→21:21)
[2019-02-01] MEDS: PROSOURCE / PROSTAT (PYXIS) 30 ML UDC GT SCH ×3 (09:00→17:57)
[2019-02-01] MEDS: HYDROCODONE/APAP 5/325MG 1 EACH TABLET GT SCH ×2 (09:00→21:20)
[2019-02-01] MEDS: BASAGLAR KWIKPEN SQ SCH ×2 (09:00→21:32)
[2019-02-01] MEDS: SUCRALFATE 1 G/10 ML UDC GT SCH (09:00)
[2019-02-01] MEDS: METOPROLOL TARTRATE 50 MG TABLET GT SCH ×2 (09:00→21:21)
--- NOTE | 2019-02-01 09:07 | NUR ---
Seen and examined by Dr. Rocha, NNO given. Awaiting for Dr. Homero Ivan to do skin scraping to identify skin rashes.
--- NOTE | 2019-02-01 19:00 | NUR ---
Seen and examined by Dr. Dia, assessed skin rashes in the R arms, R torso and entire abdomen. Current treatment Triamcinolone. NNO given, he said he will remind Dr. Homero Ivan tomorrow to do skin scraping.
--- NOTE | 2019-02-01 21:33 | NUR ---
bs check at 220 to administer basaglar as prescribed, routine dose of pain medication given norco 5-325 via gtube.monitor for changes.
[2019-02-01] MEDS: FENOFIBRATE NANOCRYS (145 MG) 145 MG TABLET GT SCH (22:01)
[2019-02-02] VITALS (9 sets, daily range): BP systolic 109–153; BP diastolic 68–89
[2019-02-02] MEDS: BLOOD SUGAR DIAGNOSTIC 1 EACH STRIP IN SCH ×4 (00:13→17:08)
[2019-02-02] MEDS: POLYVINYL ALCOHOL 15 ML BOTTLE EACHEYE SCH ×4 (00:13→17:08)
[2019-02-02] MEDS: METOCLOPRAMIDE HCL 10 MG TABLET GT SCH ×4 (00:13→17:08)
[2019-02-02] MEDS: INSULIN ASPART/LISPRO 100 UNIT/ML CARTRIDGE SQ PRN ×4 (00:36→17:24)
[2019-02-02] MEDS: TRIAMCINOLONE ACETONIDE 0.5% 15 GM TUBE TP SCH ×3 (06:00→22:24)
[2019-02-02] MEDS: BASAGLAR KWIKPEN SQ SCH ×3 (09:00→21:35)
[2019-02-02] MEDS: ASCORBIC ACID 500 MG TABLET GT SCH (09:00)
[2019-02-02] MEDS: HYDROCODONE/APAP 5/325MG 1 EACH TABLET GT SCH ×2 (09:00→21:19)
[2019-02-02] MEDS: NEUTRA PHOS 1 POWD.PACKET GT SCH ×2 (09:00→21:06)
[2019-02-02] MEDS: PROSOURCE / PROSTAT (PYXIS) 30 ML UDC GT SCH ×3 (09:00→17:29)
[2019-02-02] MEDS: VIT B CMPLX 3/FA/VIT C/BIOTIN 1 TAB TABLET GT SCH (09:00)
[2019-02-02] MEDS: ZINC SULFATE 220 MG CAPSULE GT SCH (09:00)
[2019-02-02] MEDS: SUCRALFATE 1 G/10 ML UDC GT SCH (09:00)
[2019-02-02] MEDS: LACTOBACILLUS RHAMNOSUS GG 1 EACH CAP.SPRINK GT SCH ×2 (09:00→17:08)
[2019-02-02] MEDS: OMEPRAZOLE 20 MG CAPSULE.DR GT SCH (09:00)
[2019-02-02] MEDS: METOPROLOL TARTRATE 50 MG TABLET GT SCH ×2 (09:00→21:06)
[2019-02-02] MEDS: NEOMY SULF/BACITRAC ZN/POLY 15 GM TUBE TP SCH ×2 (10:00→22:00)
[2019-02-02] MEDS: HYDROGEN PEROXIDE 480 ML BOTTLE TP SCH ×2 (10:00→22:00)
[2019-02-02] MEDS: POVIDONE-IODINE OINT 28.4 GM TUBE TP SCH ×2 (10:00→22:00)
[2019-02-02] MEDS: DAKINS QUARTER STRENGTH (0.125%) 480 ML BOTTLE TOP SCH ×2 (10:00→22:00)
[2019-02-02] MEDS: Z GUARD REMEDY 4 OZ OINT TP SCH ×2 (10:00→22:00)
[2019-02-02] MEDS: NEPRO 1,000 ML BOTTLE GT PRN (17:09)
[2019-02-02] MEDS: ONDANSETRON 4 MG TAB.RAPDIS GT PRN (17:30)
--- NOTE | 2019-02-02 20:08 | NUR ---
RECEIVED TRACH PT ON MECH VENT WITH NOTED SETTINGS PER MD ORDERS. TRACH IS PATENT AND SECURED. CORPORATE STRATEGY INTERN DONE. SX DONE PRN. VENT PLUGGED INTO RED OUTLET. ALARMS ON AND AUDIBLE. AMBU BAG @ BEDSIDE. NO RESP DISTRESS AT THIS TIME. WILL CONT TO MONITOR PT.
[2019-02-02] MEDS ORDERED: HOME MED MISCELLANEOUS SQ SCH (21:00)
[2019-02-02] MEDS: FENOFIBRATE NANOCRYS (145 MG) 145 MG TABLET GT SCH (21:06)
[2019-02-03] VITALS (8 sets, daily range): BP systolic 131–160; BP diastolic 64–91
[2019-02-03] MEDS: BLOOD SUGAR DIAGNOSTIC 1 EACH STRIP IN SCH ×4 (00:06→17:03)
[2019-02-03] MEDS: POLYVINYL ALCOHOL 15 ML BOTTLE EACHEYE SCH ×4 (00:06→17:03)
[2019-02-03] MEDS: METOCLOPRAMIDE HCL 10 MG TABLET GT SCH ×4 (00:06→17:03)
[2019-02-03] MEDS: INSULIN ASPART/LISPRO 100 UNIT/ML CARTRIDGE SQ PRN ×4 (00:07→17:23)
[2019-02-03] MEDS: TRIAMCINOLONE ACETONIDE 0.5% 15 GM TUBE TP SCH ×3 (07:03→23:00)
[2019-02-03] MEDS: NEPRO 1,000 ML BOTTLE GT PRN (08:59)
[2019-02-03] MEDS: DAKINS QUARTER STRENGTH (0.125%) 480 ML BOTTLE TOP SCH ×2 (09:00→21:12)
[2019-02-03] MEDS: HYDROGEN PEROXIDE 480 ML BOTTLE TP SCH ×2 (09:00→21:12)
[2019-02-03] MEDS: KETOCONAZOLE SHAMPOO 120 ML BOTTLE TP SCH (09:00)
[2019-02-03] MEDS: Z GUARD REMEDY 4 OZ OINT TP SCH ×2 (09:00→21:13)
[2019-02-03] MEDS: POVIDONE-IODINE OINT 28.4 GM TUBE TP SCH ×2 (09:00→21:12)
[2019-02-03] MEDS: NEOMY SULF/BACITRAC ZN/POLY 15 GM TUBE TP SCH (09:00)
[2019-02-03] MEDS: BASAGLAR KWIKPEN SQ SCH ×2 (09:11→21:17)
[2019-02-03] MEDS: NEUTRA PHOS 1 POWD.PACKET GT SCH ×2 (09:20→21:02)
[2019-02-03] MEDS: VIT B CMPLX 3/FA/VIT C/BIOTIN 1 TAB TABLET GT SCH (09:20)
[2019-02-03] MEDS: METOPROLOL TARTRATE 50 MG TABLET GT SCH ×2 (09:20→21:03)
[2019-02-03] MEDS: SUCRALFATE 1 G/10 ML UDC GT SCH (09:20)
[2019-02-03] MEDS: LACTOBACILLUS RHAMNOSUS GG 1 EACH CAP.SPRINK GT SCH ×2 (09:20→16:57)
[2019-02-03] MEDS: ASCORBIC ACID 500 MG TABLET GT SCH (09:21)
[2019-02-03] MEDS: PROSOURCE / PROSTAT (PYXIS) 30 ML UDC GT SCH ×3 (09:21→17:19)
[2019-02-03] MEDS: HYDROCODONE/APAP 5/325MG 1 EACH TABLET GT SCH ×2 (09:21→21:04)
[2019-02-03] MEDS: ZINC SULFATE 220 MG CAPSULE GT SCH (09:21)
[2019-02-03] MEDS: OMEPRAZOLE 20 MG CAPSULE.DR GT SCH (09:21)
[2019-02-03] MEDS: BACI/NEOM/POLY B OINT PKT 1 UDPKT PACKET TP SCH (21:13)
[2019-02-03] MEDS: FENOFIBRATE NANOCRYS (145 MG) 145 MG TABLET GT SCH (21:39)
--- NOTE | 2019-02-03 23:07 | NUR ---
Spoke to daughter Christine and follow up if DR. Madsen contacted her.She said nobody call her yet,she called the doctors office and said they will call her back.Will endorse to AM shift to follow up.
[2019-02-04] VITALS (9 sets, daily range): BP systolic 124–144; BP diastolic 71–95
[2019-02-04] MEDS: POLYVINYL ALCOHOL 15 ML BOTTLE EACHEYE SCH ×4 (00:25→17:54)
[2019-02-04] MEDS: BLOOD SUGAR DIAGNOSTIC 1 EACH STRIP IN SCH ×4 (00:26→17:54)
[2019-02-04] MEDS: METOCLOPRAMIDE HCL 10 MG TABLET GT SCH ×4 (00:26→17:54)
[2019-02-04] MEDS: INSULIN ASPART/LISPRO 100 UNIT/ML CARTRIDGE SQ PRN ×3 (00:28→13:14)
[2019-02-04] MEDS: NEPRO 1,000 ML BOTTLE GT PRN (05:45)
[2019-02-04] MEDS: TRIAMCINOLONE ACETONIDE 0.5% 15 GM TUBE TP SCH (07:00)
[2019-02-04] MEDS: SUCRALFATE 1 G/10 ML UDC GT SCH (09:24)
[2019-02-04] MEDS: LACTOBACILLUS RHAMNOSUS GG 1 EACH CAP.SPRINK GT SCH ×2 (09:24→17:54)
[2019-02-04] MEDS: ZINC SULFATE 220 MG CAPSULE GT SCH (09:25)
[2019-02-04] MEDS: METOPROLOL TARTRATE 50 MG TABLET GT SCH ×2 (09:25→21:24)
[2019-02-04] MEDS: PROSOURCE / PROSTAT (PYXIS) 30 ML UDC GT SCH ×3 (09:25→17:54)
[2019-02-04] MEDS: VIT B CMPLX 3/FA/VIT C/BIOTIN 1 TAB TABLET GT SCH (09:25)
[2019-02-04] MEDS: NEUTRA PHOS 1 POWD.PACKET GT SCH ×2 (09:25→21:25)
[2019-02-04] MEDS: OMEPRAZOLE 20 MG CAPSULE.DR GT SCH (09:25)
[2019-02-04] MEDS: HYDROCODONE/APAP 5/325MG 1 EACH TABLET GT SCH ×2 (09:25→21:30)
[2019-02-04] MEDS: BASAGLAR KWIKPEN SQ SCH ×2 (09:25→21:31)
[2019-02-04] MEDS: ASCORBIC ACID 500 MG TABLET GT SCH (09:25)
[2019-02-04] MEDS: Z GUARD REMEDY 4 OZ OINT TP SCH ×2 (09:55→22:30)
[2019-02-04] MEDS: HYDROGEN PEROXIDE 480 ML BOTTLE TP SCH ×2 (09:55→22:30)
[2019-02-04] MEDS: POVIDONE-IODINE OINT 28.4 GM TUBE TP SCH ×2 (09:55→22:30)
[2019-02-04] MEDS: DAKINS QUARTER STRENGTH (0.125%) 480 ML BOTTLE TOP SCH ×2 (09:55→22:30)
[2019-02-04] MEDS: BACI/NEOM/POLY B OINT PKT 1 UDPKT PACKET TP SCH ×2 (09:55→22:30)
--- NOTE | 2019-02-04 18:02 | NUR ---
Reminded Dr Ivan to do skin scraping for pt's rashes.
[2019-02-04] MEDS: FENOFIBRATE NANOCRYS (145 MG) 145 MG TABLET GT SCH (21:31)
[2019-02-05] VITALS (8 sets, daily range): BP systolic 121–156; BP diastolic 67–79
[2019-02-05] MEDS: BLOOD SUGAR DIAGNOSTIC 1 EACH STRIP IN SCH ×4 (00:38→18:09)
[2019-02-05] MEDS: METOCLOPRAMIDE HCL 10 MG TABLET GT SCH ×4 (00:38→17:35)
[2019-02-05] MEDS: POLYVINYL ALCOHOL 15 ML BOTTLE EACHEYE SCH ×4 (00:38→17:35)
[2019-02-05] MEDS: INSULIN ASPART/LISPRO 100 UNIT/ML CARTRIDGE SQ PRN ×4 (00:40→18:09)
[2019-02-05] MEDS: NEPRO 1,000 ML BOTTLE GT PRN (06:03)
--- NOTE | 2019-02-05 08:38 | NUR ---
RT NOTE PATIENT REC'D TRACHED ON MECHANICAL VENT WITH NOTED SETTINGS PER MD ORDERS. TRACH IS PATENT AND SECURED. PROFESSOR OF MARKETING DONE. SX DONE PRN. VENT PLUGGED INTO RED OUTLET. ALARMS ON AND AUDIBLE. COLTON TORRES @ BEDSIDE. NO RESP DISTRESS AT THIS TIME. WILL CONT TO MONITOR. Addendum: 02/05/19 at 0839 by LESLY WARREN RT Amended: Links added.
[2019-02-05] MEDS: VIT B CMPLX 3/FA/VIT C/BIOTIN 1 TAB TABLET GT SCH (09:17)
[2019-02-05] MEDS: SUCRALFATE 1 G/10 ML UDC GT SCH (09:17)
[2019-02-05] MEDS: NEUTRA PHOS 1 POWD.PACKET GT SCH ×2 (09:17→21:46)
[2019-02-05] MEDS: METOPROLOL TARTRATE 50 MG TABLET GT SCH ×2 (09:17→21:46)
[2019-02-05] MEDS: LACTOBACILLUS RHAMNOSUS GG 1 EACH CAP.SPRINK GT SCH ×2 (09:17→17:35)
[2019-02-05] MEDS: ASCORBIC ACID 500 MG TABLET GT SCH (09:18)
[2019-02-05] MEDS: HYDROCODONE/APAP 5/325MG 1 EACH TABLET GT SCH ×2 (09:18→21:47)
[2019-02-05] MEDS: ZINC SULFATE 220 MG CAPSULE GT SCH (09:18)
[2019-02-05] MEDS: BASAGLAR KWIKPEN SQ SCH ×2 (09:18→22:22)
[2019-02-05] MEDS: OMEPRAZOLE 20 MG CAPSULE.DR GT SCH (09:18)
[2019-02-05] MEDS: PROSOURCE / PROSTAT (PYXIS) 30 ML UDC GT SCH ×3 (09:18→17:35)
[2019-02-05] MEDS: POVIDONE-IODINE OINT 28.4 GM TUBE TP SCH ×2 (09:50→22:30)
[2019-02-05] MEDS: Z GUARD REMEDY 4 OZ OINT TP SCH ×2 (09:50→22:30)
[2019-02-05] MEDS: BACI/NEOM/POLY B OINT PKT 1 UDPKT PACKET TP SCH ×2 (09:50→22:30)
[2019-02-05] MEDS: DAKINS QUARTER STRENGTH (0.125%) 480 ML BOTTLE TOP SCH ×2 (09:50→22:30)
[2019-02-05] MEDS: HYDROGEN PEROXIDE 480 ML BOTTLE TP SCH ×2 (09:50→22:30)
[2019-02-05] MEDS: FENOFIBRATE NANOCRYS (145 MG) 145 MG TABLET GT SCH (21:47)
--- NOTE | 2019-02-05 22:00 | NUR ---
patient family stated that patient's left eye was red. charge nurse assessed and it was red. charge nurse will endorse to morning charge.
[2019-02-06] VITALS (7 sets, daily range): BP systolic 117–158; BP diastolic 68–93
[2019-02-06] MEDS: BLOOD SUGAR DIAGNOSTIC 1 EACH STRIP IN SCH ×4 (00:23→17:40)
[2019-02-06] MEDS: METOCLOPRAMIDE HCL 10 MG TABLET GT SCH ×4 (00:23→17:40)
[2019-02-06] MEDS: POLYVINYL ALCOHOL 15 ML BOTTLE EACHEYE SCH ×4 (00:23→17:40)
[2019-02-06] MEDS: INSULIN ASPART/LISPRO 100 UNIT/ML CARTRIDGE SQ PRN ×4 (00:24→17:41)
--- NOTE | 2019-02-06 09:00 | NUR ---
Seen and examined by Dr. Dia. Continue artificial tears. Both eyes are still red, no discharge noted. Dr. Dia informed that Homero Ivan still didn't come to do skin scraping on his rash, he said he will talk to him. Will continue to monitor.
[2019-02-06] MEDS: SUCRALFATE 1 G/10 ML UDC GT SCH (09:21)
[2019-02-06] MEDS: LACTOBACILLUS RHAMNOSUS GG 1 EACH CAP.SPRINK GT SCH ×2 (09:21→16:45)
[2019-02-06] MEDS: NEUTRA PHOS 1 POWD.PACKET GT SCH ×2 (09:21→21:10)
[2019-02-06] MEDS: VIT B CMPLX 3/FA/VIT C/BIOTIN 1 TAB TABLET GT SCH (09:21)
[2019-02-06] MEDS: METOPROLOL TARTRATE 50 MG TABLET GT SCH ×2 (09:21→21:10)
[2019-02-06] MEDS: ASCORBIC ACID 500 MG TABLET GT SCH (09:22)
[2019-02-06] MEDS: OMEPRAZOLE 20 MG CAPSULE.DR GT SCH (09:22)
[2019-02-06] MEDS: PROSOURCE / PROSTAT (PYXIS) 30 ML UDC GT SCH ×3 (09:22→16:45)
[2019-02-06] MEDS: ZINC SULFATE 220 MG CAPSULE GT SCH (09:22)
[2019-02-06] MEDS: BASAGLAR KWIKPEN SQ SCH ×2 (09:22→21:10)
[2019-02-06] MEDS: HYDROCODONE/APAP 5/325MG 1 EACH TABLET GT SCH ×2 (09:22→21:10)
[2019-02-06] MEDS: HYDROGEN PEROXIDE 480 ML BOTTLE TP SCH ×2 (09:23→21:10)
[2019-02-06] MEDS: POVIDONE-IODINE OINT 28.4 GM TUBE TP SCH ×2 (09:23→21:10)
[2019-02-06] MEDS: DAKINS QUARTER STRENGTH (0.125%) 480 ML BOTTLE TOP SCH ×2 (09:23→21:10)
[2019-02-06] MEDS: Z GUARD REMEDY 4 OZ OINT TP SCH ×2 (09:24→21:11)
[2019-02-06] MEDS: BACI/NEOM/POLY B OINT PKT 1 UDPKT PACKET TP SCH ×2 (09:24→21:11)
[2019-02-06] MEDS: NEPRO 1,000 ML BOTTLE GT PRN ×2 (18:00)
[2019-02-06] MEDS: FENOFIBRATE NANOCRYS (145 MG) 145 MG TABLET GT SCH (21:11)
[2019-02-07] VITALS (7 sets, daily range): BP systolic 124–151; BP diastolic 64–96
[2019-02-07] MEDS: INSULIN ASPART/LISPRO 100 UNIT/ML CARTRIDGE SQ PRN ×4 (02:31→17:31)
[2019-02-07] MEDS: BLOOD SUGAR DIAGNOSTIC 1 EACH STRIP IN SCH ×4 (05:48→17:15)
[2019-02-07] MEDS: POLYVINYL ALCOHOL 15 ML BOTTLE EACHEYE SCH ×4 (05:48→17:15)
[2019-02-07] MEDS: METOCLOPRAMIDE HCL 10 MG TABLET GT SCH ×4 (05:48→17:15)
--- NOTE | 2019-02-07 06:47 | NUR ---
RT PATIENT REC'D TRACHED ON [facility] VENT WITH ORDERED SETTINGS LEIDA WELL. VENT ALARMS CHECKED + AUDIBLE. CUFF PRESSURE CHECKED BUSINESS CONTINUITY DIRECTOR. TRACH SECURE + IN PROPER POSITION. PATIENT NON RESPONSIVE TO VERBAL COMMANDS, NO SOB NOTED. B/S DIM COARSE. PATIENT SUCTIONED WITH MOD AMT OF PALE SEMI-THICK SECRETIONS. AMBU BAG AND BACK UP TRACH AT HOB. CONT CURRENT PLAN OF RESP CARE. Addendum: 02/07/19 at 0823 by LIV MANZANO RT Amended: Links added.
[2019-02-07] MEDS: LACTOBACILLUS RHAMNOSUS GG 1 EACH CAP.SPRINK GT SCH ×2 (09:13→17:15)
[2019-02-07] MEDS: SUCRALFATE 1 G/10 ML UDC GT SCH (09:13)
[2019-02-07] MEDS: NEUTRA PHOS 1 POWD.PACKET GT SCH ×2 (09:15→21:09)
[2019-02-07] MEDS: VIT B CMPLX 3/FA/VIT C/BIOTIN 1 TAB TABLET GT SCH (09:15)
[2019-02-07] MEDS: METOPROLOL TARTRATE 50 MG TABLET GT SCH ×2 (09:15→21:09)
[2019-02-07] MEDS: OMEPRAZOLE 20 MG CAPSULE.DR GT SCH (09:18)
[2019-02-07] MEDS: ZINC SULFATE 220 MG CAPSULE GT SCH (09:18)
[2019-02-07] MEDS: BASAGLAR KWIKPEN SQ SCH ×2 (09:18→21:09)
[2019-02-07] MEDS: ASCORBIC ACID 500 MG TABLET GT SCH (09:18)
[2019-02-07] MEDS: PROSOURCE / PROSTAT (PYXIS) 30 ML UDC GT SCH ×3 (09:18→17:15)
[2019-02-07] MEDS: HYDROCODONE/APAP 5/325MG 1 EACH TABLET GT SCH ×2 (09:18→21:09)
[2019-02-07] MEDS: DAKINS QUARTER STRENGTH (0.125%) 480 ML BOTTLE TOP SCH ×2 (10:18→21:09)
[2019-02-07] MEDS: BACI/NEOM/POLY B OINT PKT 1 UDPKT PACKET TP SCH ×2 (10:18→21:09)
[2019-02-07] MEDS: HYDROGEN PEROXIDE 480 ML BOTTLE TP SCH ×2 (10:18→21:09)
[2019-02-07] MEDS: Z GUARD REMEDY 4 OZ OINT TP SCH ×2 (10:18→21:10)
[2019-02-07] MEDS: POVIDONE-IODINE OINT 28.4 GM TUBE TP SCH ×2 (10:18→21:09)
[2019-02-07] MEDS: ONDANSETRON 4 MG TAB.RAPDIS GT PRN ×2 (11:30→17:40)
--- NOTE | 2019-02-07 13:21 | NUR ---
Called Dr Madsen's office. Pt's daughter still waiting to hear from Dr Madsen regarding his plan to amputate pt's right lower extremity. Left message with Janet. Gave her Christine Bravo's phone number.
[2019-02-07] MEDS: NEPRO 1,000 ML BOTTLE GT PRN (16:45)
[2019-02-07] MEDS: FENOFIBRATE NANOCRYS (145 MG) 145 MG TABLET GT SCH (21:10)
[2019-02-08] VITALS (8 sets, daily range): BP systolic 122–147; BP diastolic 57–78
[2019-02-08] MEDS: POLYVINYL ALCOHOL 15 ML BOTTLE EACHEYE SCH ×5 (00:19→23:46)
[2019-02-08] MEDS: METOCLOPRAMIDE HCL 10 MG TABLET GT SCH ×5 (00:19→23:46)
[2019-02-08] MEDS: INSULIN ASPART/LISPRO 100 UNIT/ML CARTRIDGE SQ PRN ×5 (00:20→23:48)
[2019-02-08] MEDS: BLOOD SUGAR DIAGNOSTIC 1 EACH STRIP IN SCH ×5 (00:20→23:46)
[2019-02-08] MEDS: DAKINS QUARTER STRENGTH (0.125%) 480 ML BOTTLE TOP SCH ×2 (09:00→21:17)
[2019-02-08] MEDS: HYDROGEN PEROXIDE 480 ML BOTTLE TP SCH ×2 (09:00→21:18)
[2019-02-08] MEDS: POVIDONE-IODINE OINT 28.4 GM TUBE TP SCH ×2 (09:00→21:17)
[2019-02-08] MEDS: Z GUARD REMEDY 4 OZ OINT TP SCH ×2 (09:00→21:18)
[2019-02-08] MEDS: BACI/NEOM/POLY B OINT PKT 1 UDPKT PACKET TP SCH ×2 (09:00→21:18)
--- NOTE | 2019-02-08 09:00 | NUR ---
Seen and examined by Dr. Rocha, no new order given.
[2019-02-08] MEDS: LACTOBACILLUS RHAMNOSUS GG 1 EACH CAP.SPRINK GT SCH ×2 (09:16→17:04)
[2019-02-08] MEDS: VIT B CMPLX 3/FA/VIT C/BIOTIN 1 TAB TABLET GT SCH (09:16)
[2019-02-08] MEDS: METOPROLOL TARTRATE 50 MG TABLET GT SCH ×2 (09:16→21:17)
[2019-02-08] MEDS: SUCRALFATE 1 G/10 ML UDC GT SCH (09:16)
[2019-02-08] MEDS: NEUTRA PHOS 1 POWD.PACKET GT SCH ×2 (09:16→21:17)
[2019-02-08] MEDS: ASCORBIC ACID 500 MG TABLET GT SCH (09:17)
[2019-02-08] MEDS: OMEPRAZOLE 20 MG CAPSULE.DR GT SCH (09:17)
[2019-02-08] MEDS: PROSOURCE / PROSTAT (PYXIS) 30 ML UDC GT SCH ×3 (09:17→17:04)
[2019-02-08] MEDS: HYDROCODONE/APAP 5/325MG 1 EACH TABLET GT SCH ×3 (09:17→21:17)
[2019-02-08] MEDS: BASAGLAR KWIKPEN SQ SCH ×2 (09:17→21:17)
[2019-02-08] MEDS: ZINC SULFATE 220 MG CAPSULE GT SCH (09:17)
[2019-02-08] MEDS: NEPRO 1,000 ML BOTTLE GT PRN (15:01)
[2019-02-08] MEDS: FENOFIBRATE NANOCRYS (145 MG) 145 MG TABLET GT SCH (21:18)
[2019-02-09] VITALS (7 sets, daily range): BP systolic 130–154; BP diastolic 69–80
[2019-02-09] MEDS: BLOOD SUGAR DIAGNOSTIC 1 EACH STRIP IN SCH ×4 (05:47→23:20)
[2019-02-09] MEDS: POLYVINYL ALCOHOL 15 ML BOTTLE EACHEYE SCH ×4 (05:47→23:20)
[2019-02-09] MEDS: METOCLOPRAMIDE HCL 10 MG TABLET GT SCH ×4 (05:47→23:20)
[2019-02-09] MEDS: INSULIN ASPART/LISPRO 100 UNIT/ML CARTRIDGE SQ PRN ×3 (05:48→23:22)
[2019-02-09] MEDS: LACTOBACILLUS RHAMNOSUS GG 1 EACH CAP.SPRINK GT SCH ×2 (08:30→17:49)
[2019-02-09] MEDS: METOPROLOL TARTRATE 50 MG TABLET GT SCH ×2 (08:30→21:10)
[2019-02-09] MEDS: NEUTRA PHOS 1 POWD.PACKET GT SCH ×2 (08:30→21:10)
[2019-02-09] MEDS: VIT B CMPLX 3/FA/VIT C/BIOTIN 1 TAB TABLET GT SCH (08:30)
[2019-02-09] MEDS: SUCRALFATE 1 G/10 ML UDC GT SCH (08:30)
[2019-02-09] MEDS: ASCORBIC ACID 500 MG TABLET GT SCH (08:31)
[2019-02-09] MEDS: PROSOURCE / PROSTAT (PYXIS) 30 ML UDC GT SCH ×3 (08:31→17:49)
[2019-02-09] MEDS: OMEPRAZOLE 20 MG CAPSULE.DR GT SCH (08:31)
[2019-02-09] MEDS: HYDROCODONE/APAP 5/325MG 1 EACH TABLET GT SCH ×2 (08:31→21:10)
[2019-02-09] MEDS: ZINC SULFATE 220 MG CAPSULE GT SCH (08:31)
[2019-02-09] MEDS: BASAGLAR KWIKPEN SQ SCH ×2 (08:31→21:41)
[2019-02-09] MEDS: POVIDONE-IODINE OINT 28.4 GM TUBE TP SCH ×2 (09:00→21:48)
[2019-02-09] MEDS: BACI/NEOM/POLY B OINT PKT 1 UDPKT PACKET TP SCH ×2 (09:00→21:48)
[2019-02-09] MEDS: HYDROGEN PEROXIDE 480 ML BOTTLE TP SCH ×2 (09:00→21:48)
[2019-02-09] MEDS: Z GUARD REMEDY 4 OZ OINT TP SCH ×2 (09:00→21:48)
[2019-02-09] MEDS: DAKINS QUARTER STRENGTH (0.125%) 480 ML BOTTLE TOP SCH ×2 (09:00→21:48)
--- NOTE | 2019-02-09 09:31 | NUR ---
SW communicated with pt's daughter Christine about pt's new room ( [phone])
--- NOTE | 2019-02-09 10:43 | NUR ---
Pt's Janet called SW to express concern about pt's change of room. told SW that she was concerned that he would be placed in a room with a pt who is not in isolation. SW normalized 's concerned by explaining that pt was sharing room with a pt who is alos in isolation and that the decision was made after consulting and being approved by infectiologyst.
--- NOTE | 2019-02-09 12:55 | NUR ---
Resident was picked up by ambulance and transferred to dialysis center, was suctioned prior to leaving, no respiratory distress noted.
--- NOTE | 2019-02-09 13:15 | NUR ---
Resident's daughter Adrienne called asking about patient's condition. She was made aware that patient will have a room change. He will be cohorted with another patient with the same isolation. Patient left for dialysis, his new room has been terminally cleaned by EVS. All belongings transferred and organized in his new room by staff.
--- NOTE | 2019-02-09 15:00 | NUR ---
Notified SCALPER OPERATOR Keith Buckley that patient has low grade temperature this morning 100.1, he is at the dialysis at this time. Will re-check temperature once patient returned from dialysis. NNO given at this time.
[2019-02-09] MEDS: ACETAMINOPHEN LIQUID 325 MG/10.1 ML UDC GT PRN (17:49)
--- NOTE | 2019-02-09 17:51 | NUR ---
PATIENT RETURNED FROM DIALYSIS CENTER S/P HEMODIALYSIS, RIGHT CATHETER SITE CLEAN AND DRY, NO BLEEDING AT THE SITE, VITAL SIGNS BP 134/77, TEMP ORAL 101.1, RESP RATE 16, COOLING MEASURES WILL BE RENDERED, AND TYLENOL 650MG WILL BE ADMINISTERED.
--- NOTE | 2019-02-09 19:03 | NUR ---
TYLENOL AND COOLING MEASURES WERE EFFECTIVE, LATEST ORAL TEMPERATURE 99.2 F.
--- NOTE | 2019-02-09 19:07 | NUR ---
Notified HARNESS PLACER Ina regarding temperature of 101.1 with new order for IV ATB and blood culture, CBC, C-xray in AM. Spoke with resident's daughter Christine regarding change in condition and new order. She asked the status of the scrapping and if Dr. Perez, vascular surgeon has been communicating with staff regarding possible amputation of the patient's R gangrenous toes. Explained to Christine that it is better if she will continue to call Dr. Madsen's office until she talk to him Dr. Madsen can also ask question directly to the family member if he has question. Christine mentioned that she is in the process of getting a conservatorship for her father. Order faxed to [facility], spoke with Lux said she will review the order and will call for dosing and if covered by insurance. Endorsed.
--- NOTE | 2019-02-09 20:12 | NUR ---
RT NOTE PATIENT RECEIVED TRACH'D ON MECHANICAL VENT. PATIENT IS TOLERATING CURRENT ORDERED VENT SETTINGS. NO RESPIRATORY DISTRESS NOTED. TRACH IS PATENT AND SECURE. ALARMS ARE SET AND AUDIBLE. MECHANICAL VENT IS PLUGGED INTO RED OUTLET. EMERGENCY EQUIPMENT IS AT PATIENT BEDSIDE. WILL CONTINUE TO MONITOR. Addendum: 02/09/19 at [address] RT Amended: Links added.
[2019-02-09] MEDS: FENOFIBRATE NANOCRYS (145 MG) 145 MG TABLET GT SCH (21:11)
[2019-02-09] MEDS: MEROPENEM 500 MG in IV NS 0.9% 50 ML IV SCH (22:00)
--- NOTE | 2019-02-09 23:00 | NUR ---
Per pharmacist Lux Vancomycin 500mg IV q dialysis day MWF.Merrem 500mg IV q 12 hrs.Meds given with no adverse reaction noted.Family visited and updated with pt condition.Will continue to monitor.
[2019-02-10] VITALS (8 sets, daily range): BP systolic 134–159; BP diastolic 70–84
[2019-02-10] MEDS: BLOOD SUGAR DIAGNOSTIC 1 EACH STRIP IN SCH ×3 (05:53→18:54)
[2019-02-10] MEDS: POLYVINYL ALCOHOL 15 ML BOTTLE EACHEYE SCH ×3 (05:53→18:54)
[2019-02-10] MEDS: METOCLOPRAMIDE HCL 10 MG TABLET GT SCH ×3 (05:53→18:54)
[2019-02-10] MEDS: INSULIN ASPART/LISPRO 100 UNIT/ML CARTRIDGE SQ PRN ×3 (05:54→18:38)
--- NOTE | 2019-02-10 06:26 | NUR ---
Latest temp 98.9
[2019-02-10 07:33] LABS: BASOPHILS # (AUTO) 0.1 /CMM (0.0-0.2); BASOPHILS % (AUTO) 0.6 % (0.0-2.0); EOSINOPHILS % (AUTO) 8.5 % (0.0-6.0); HEMATOCRIT 39 % (39-51); HEMOGLOBIN 12.4 g/dL (13.5-17.5); LYMPHOCYTES # (AUTO) 1.7 /CMM (0.8-4.8); LYMPHOCYTES % (AUTO) 14.6 % (20.0-44.0); MEAN CORPUSCULAR HGB CONC 32 g/dl (31.0-36.0); MEAN CORPUSCULAR VOLUME 102 fL (80-96); MONOCYTES # (AUTO) 0.9 /CMM (0.1-1.30); MONOCYTES % (AUTO) 7.7 % (2.0-12.0); NEUTROPHILS # (AUTO) 7.8 /CMM (1.8-8.9); NEUTROPHILS % (AUTO) 68.6 % (43.0-81.0); PLATELET COUNT (AUTO) 492 /CMM (150-450); RED BLOOD CELL COUNT(AUTO) 3.85 MIL/uL (4.5-6.0); WHITE BLOOD COUNT (AUTO) 11.4 K/uL (4.3-11.0)
[2019-02-10] MEDS: ZINC SULFATE 220 MG CAPSULE GT SCH (09:00)
[2019-02-10] MEDS: POVIDONE-IODINE OINT 28.4 GM TUBE TP SCH ×2 (09:00→21:00)
[2019-02-10] MEDS: HYDROGEN PEROXIDE 480 ML BOTTLE TP SCH ×2 (09:00→21:00)
[2019-02-10] MEDS: PROSOURCE / PROSTAT (PYXIS) 30 ML UDC GT SCH ×3 (09:00→17:00)
[2019-02-10] MEDS: METOPROLOL TARTRATE 50 MG TABLET GT SCH ×2 (09:00→21:00)
[2019-02-10] MEDS: OMEPRAZOLE 20 MG CAPSULE.DR GT SCH (09:00)
[2019-02-10] MEDS: KETOCONAZOLE SHAMPOO 120 ML BOTTLE TP SCH (09:00)
[2019-02-10] MEDS: LACTOBACILLUS RHAMNOSUS GG 1 EACH CAP.SPRINK GT SCH ×2 (09:00→17:00)
[2019-02-10] MEDS: VIT B CMPLX 3/FA/VIT C/BIOTIN 1 TAB TABLET GT SCH (09:00)
[2019-02-10] MEDS: BACI/NEOM/POLY B OINT PKT 1 UDPKT PACKET TP SCH ×2 (09:00→21:00)
[2019-02-10] MEDS: Z GUARD REMEDY 4 OZ OINT TP SCH ×2 (09:00→21:00)
[2019-02-10] MEDS: BASAGLAR KWIKPEN SQ SCH ×2 (09:00→21:00)
[2019-02-10] MEDS: HYDROCODONE/APAP 5/325MG 1 EACH TABLET GT SCH ×2 (09:00→21:00)
[2019-02-10] MEDS: DAKINS QUARTER STRENGTH (0.125%) 480 ML BOTTLE TOP SCH ×2 (09:00→21:00)
[2019-02-10] MEDS: ASCORBIC ACID 500 MG TABLET GT SCH (09:00)
[2019-02-10] MEDS: SUCRALFATE 1 G/10 ML UDC GT SCH (09:00)
[2019-02-10] MEDS: NEUTRA PHOS 1 POWD.PACKET GT SCH (09:00)
[2019-02-10] MEDS: MEROPENEM 500 MG in IV NS 0.9% 50 ML IV SCH ×2 (10:00→22:15)
--- NOTE | 2019-02-10 11:52 | NUR ---
RT NOTE PATIENT RECEIVED TRACH'D ON MECHANICAL VENT. PATIENT IS TOLERATING CURRENT ORDERED VENT SETTINGS. NO RESPIRATORY DISTRESS NOTED. TRACH IS PATENT AND SECURE. ALARMS ARE SET AND AUDIBLE. MECHANICAL VENT IS PLUGGED INTO RED OUTLET. EMERGENCY EQUIPMENT IS AT PATIENT BEDSIDE. WILL CONTINUE TO MONITOR.
--- NOTE | 2019-02-10 16:02 | NUR ---
Received recommendation from [facility] to decrease Neutraphos from 1 packet BID to daily since pt's phosphorus level is now 5.1. Informed Dr Dia and he ordered to decrease Neutraphos per recommendation.
--- NOTE | 2019-02-10 17:25 | NUR ---
Asked Dr Dia if he would like to order 2% chlorhexidine bath for pt since he has CRE sputum and rashes. Reminded Dr Ivan to do skin scraping. Dr Dia said to have Dr Dhruv Chase see the pt. He also said he prefers to have a skin biopsy done before he orders any chlorhexidine bath. Informed Dr Dhruv Chase.
[2019-02-10] MEDS: FENOFIBRATE NANOCRYS (145 MG) 145 MG TABLET GT SCH (22:00)
[2019-02-11] VITALS (8 sets, daily range): BP systolic 130–158; BP diastolic 71–91
[2019-02-11] MEDS: POLYVINYL ALCOHOL 15 ML BOTTLE EACHEYE SCH ×4 (00:30→17:51)
[2019-02-11] MEDS: BLOOD SUGAR DIAGNOSTIC 1 EACH STRIP IN SCH ×4 (00:30→17:51)
[2019-02-11] MEDS: METOCLOPRAMIDE HCL 10 MG TABLET GT SCH ×4 (00:30→17:51)
[2019-02-11] MEDS: INSULIN ASPART/LISPRO 100 UNIT/ML CARTRIDGE SQ PRN ×4 (00:31→18:07)
[2019-02-11] MEDS: NEPRO 1,000 ML BOTTLE GT PRN (00:56)
[2019-02-11] MEDS: HYDROCODONE/APAP 5/325MG 1 EACH TABLET GT SCH ×2 (09:00→21:33)
[2019-02-11] MEDS: DAKINS QUARTER STRENGTH (0.125%) 480 ML BOTTLE TOP SCH ×2 (09:00→21:56)
[2019-02-11] MEDS: HYDROGEN PEROXIDE 480 ML BOTTLE TP SCH ×2 (09:00→21:56)
[2019-02-11] MEDS: NEUTRA PHOS 1 POWD.PACKET GT SCH (09:00)
[2019-02-11] MEDS: LACTOBACILLUS RHAMNOSUS GG 1 EACH CAP.SPRINK GT SCH ×2 (09:00→17:51)
[2019-02-11] MEDS: Z GUARD REMEDY 4 OZ OINT TP SCH ×2 (09:00→21:56)
[2019-02-11] MEDS: VIT B CMPLX 3/FA/VIT C/BIOTIN 1 TAB TABLET GT SCH (09:00)
[2019-02-11] MEDS: OMEPRAZOLE 20 MG CAPSULE.DR GT SCH (09:00)
[2019-02-11] MEDS: SUCRALFATE 1 G/10 ML UDC GT SCH (09:00)
[2019-02-11] MEDS: ASCORBIC ACID 500 MG TABLET GT SCH (09:00)
[2019-02-11] MEDS: ZINC SULFATE 220 MG CAPSULE GT SCH (09:00)
[2019-02-11] MEDS: POVIDONE-IODINE OINT 28.4 GM TUBE TP SCH ×2 (09:00→21:56)
[2019-02-11] MEDS: PROSOURCE / PROSTAT (PYXIS) 30 ML UDC GT SCH ×3 (09:00→17:00)
[2019-02-11] MEDS: METOPROLOL TARTRATE 50 MG TABLET GT SCH ×2 (09:00→21:33)
[2019-02-11] MEDS: BASAGLAR KWIKPEN SQ SCH ×2 (09:00→21:33)
[2019-02-11] MEDS: BACI/NEOM/POLY B OINT PKT 1 UDPKT PACKET TP SCH ×2 (09:00→21:56)
[2019-02-11] MEDS: MEROPENEM 500 MG in IV NS 0.9% 50 ML IV SCH ×2 (10:00→22:12)
--- NOTE | 2019-02-11 11:10 | NUR ---
Place a call to Dr. Madsen's office, spoke with Zeenat to inform MD that family is at bedside and if he has a time to call back to speak with family. According to Zeenat she will relay the message.
--- NOTE | 2019-02-11 12:30 | NUR ---
Seen and examined by Dr. Dia. Patient's daughter Adrienne and patient's at bedside visiting. Dr. Dia explained to family that since patient has full thickness eschar of the R heel and gangrenous toes of the R foot, an amputation is imminent. The toes could not be saved, it is literally tissues. Dr. Dia further explained that amputation will depend on the extent of tissue damage, it could be below the knee or at the knee level. Family and MD made aware that Dr. Madsen was contacted a while ago and requested to call back since family member at bedside at this time so he can talk to them. Requested Dr. Dia to follow-up with Dr. Madsen to find out when he can see the patient.
--- NOTE | 2019-02-11 16:30 | NUR ---
ANN Davalos came to assess patient's skin but patient is at the dialysis center. ANN Tong reviewed the photos and said she will collaborate with Dr. Bartlett regarding the best treatment plan. She said she will enter order in [facility] once she heard from Dr. Bartlett.
[2019-02-11] MEDS: TOBRAMYCIN/DEXAMETH OPHTH OINT 3.5 GM TUBE EACHEYE SCH (17:00)
--- NOTE | 2019-02-11 20:47 | NUR ---
RT PT RECEIVED TRACHED ON [facility] VENT ON CHARTED SETTINGS. NO DISTRESS NOTED. WIND PLANT MANAGER FOR CUFF DONE. TX GIVEN. PT SUCTIONED, SMALL THICK WHITE YELLOW SECRETIONS NOTED. ALARMS SET AND AUDIBLE. VENT CONNECTED TO RED OUTLET. WILL CONT TO MONITOR. Addendum: 02/11/19 at 2100 by CARLOS YEH RT Amended: Links added.
[2019-02-11] MEDS: VANCOMYCIN 500 MG in IV NS 0.9% 100 ML IV PRN (21:11)
[2019-02-11] MEDS: FENOFIBRATE NANOCRYS (145 MG) 145 MG TABLET GT SCH (21:34)
[2019-02-12] VITALS (8 sets, daily range): BP systolic 121–160; BP diastolic 53–89
[2019-02-12] MEDS: METOCLOPRAMIDE HCL 10 MG TABLET GT SCH ×5 (00:07→23:42)
[2019-02-12] MEDS: POLYVINYL ALCOHOL 15 ML BOTTLE EACHEYE SCH ×5 (00:07→23:42)
[2019-02-12] MEDS: BLOOD SUGAR DIAGNOSTIC 1 EACH STRIP IN SCH ×5 (00:08→23:42)
[2019-02-12] MEDS: INSULIN ASPART/LISPRO 100 UNIT/ML CARTRIDGE SQ PRN ×5 (00:09→23:43)
[2019-02-12] MEDS: NEPRO 1,000 ML BOTTLE GT PRN ×2 (02:14→18:44)
[2019-02-12] MEDS: OMEPRAZOLE 20 MG CAPSULE.DR GT SCH (09:00)
[2019-02-12] MEDS: ZINC SULFATE 220 MG CAPSULE GT SCH (09:00)
[2019-02-12] MEDS: HYDROCODONE/APAP 5/325MG 1 EACH TABLET GT SCH ×2 (09:00→21:37)
[2019-02-12] MEDS: METOPROLOL TARTRATE 50 MG TABLET GT SCH ×2 (09:00→21:36)
[2019-02-12] MEDS: TOBRAMYCIN/DEXAMETH OPHTH OINT 3.5 GM TUBE EACHEYE SCH ×2 (09:00→17:00)
[2019-02-12] MEDS: PROSOURCE / PROSTAT (PYXIS) 30 ML UDC GT SCH ×3 (09:00→17:00)
[2019-02-12] MEDS: SUCRALFATE 1 G/10 ML UDC GT SCH (09:00)
[2019-02-12] MEDS: ASCORBIC ACID 500 MG TABLET GT SCH (09:00)
[2019-02-12] MEDS: NEUTRA PHOS 1 POWD.PACKET GT SCH (09:00)
[2019-02-12] MEDS: VIT B CMPLX 3/FA/VIT C/BIOTIN 1 TAB TABLET GT SCH (09:00)
[2019-02-12] MEDS: BASAGLAR KWIKPEN SQ SCH ×2 (09:00→21:49)
[2019-02-12] MEDS: LACTOBACILLUS RHAMNOSUS GG 1 EACH CAP.SPRINK GT SCH ×2 (09:00→17:00)
[2019-02-12] MEDS: POVIDONE-IODINE OINT 28.4 GM TUBE TP SCH ×2 (10:00→21:58)
[2019-02-12] MEDS: DAKINS QUARTER STRENGTH (0.125%) 480 ML BOTTLE TOP SCH ×2 (10:00→21:57)
[2019-02-12] MEDS: MEROPENEM 500 MG in IV NS 0.9% 50 ML IV SCH ×2 (10:00→22:23)
[2019-02-12] MEDS: HYDROGEN PEROXIDE 480 ML BOTTLE TP SCH ×2 (10:00→21:58)
[2019-02-12] MEDS: BACI/NEOM/POLY B OINT PKT 1 UDPKT PACKET TP SCH ×2 (10:00→21:58)
[2019-02-12] MEDS: Z GUARD REMEDY 4 OZ OINT TP SCH ×2 (10:00→21:58)
--- NOTE | 2019-02-12 11:34 | NUR ---
Dr. Madsen, vascular surgeon came to assess patient's R foot gangrenous toes, and R heel with full thickness eschar. According to Dr. Madsen he spoke with resident's daughter Christine yesterday. Upon assessing patient's R extremity Dr. Madsen said he may do a knee amputation due to the extent of tissue damage. Asked Dr. Madsen to take a look at the wound over the L shinbone covered with dry scab. This wound has not been showing any improvement since admission. He said to just leave it alone for now. He will call resident's daughter Christine to discuss the plan. He verbalized that he may schedule the surgery next week. Endorsed.
[2019-02-12] MEDS: ACETAMINOPHEN LIQUID 325 MG/10.1 ML UDC GT PRN (18:44)
[2019-02-12] MEDS: FENOFIBRATE NANOCRYS (145 MG) 145 MG TABLET GT SCH (21:37)
[2019-02-13 00:08] VITALS: BP 153/88
[2019-02-13 04:30] VITALS: BP 134/60
[2019-02-13] MEDS: METOCLOPRAMIDE HCL 10 MG TABLET GT SCH ×3 (05:18→17:33)
[2019-02-13] MEDS: BLOOD SUGAR DIAGNOSTIC 1 EACH STRIP IN SCH ×3 (05:18→17:53)
[2019-02-13] MEDS: POLYVINYL ALCOHOL 15 ML BOTTLE EACHEYE SCH ×3 (05:18→17:33)
[2019-02-13] MEDS: INSULIN ASPART/LISPRO 100 UNIT/ML CARTRIDGE SQ PRN ×3 (05:19→17:56)
[2019-02-13 08:08] VITALS: BP 122/72
[2019-02-13] MEDS: VIT B CMPLX 3/FA/VIT C/BIOTIN 1 TAB TABLET GT SCH (09:00)
[2019-02-13] MEDS: ZINC SULFATE 220 MG CAPSULE GT SCH (09:00)
[2019-02-13] MEDS: POVIDONE-IODINE OINT 28.4 GM TUBE TP SCH ×2 (09:00→21:13)
[2019-02-13] MEDS: METOPROLOL TARTRATE 50 MG TABLET GT SCH ×2 (09:00→21:13)
[2019-02-13] MEDS: DAKINS QUARTER STRENGTH (0.125%) 480 ML BOTTLE TOP SCH ×2 (09:00→21:13)
[2019-02-13] MEDS: NEUTRA PHOS 1 POWD.PACKET GT SCH (09:00)
[2019-02-13] MEDS: ASCORBIC ACID 500 MG TABLET GT SCH (09:00)
[2019-02-13] MEDS: BASAGLAR KWIKPEN SQ SCH ×2 (09:00→21:13)
[2019-02-13] MEDS: HYDROGEN PEROXIDE 480 ML BOTTLE TP SCH ×2 (09:00→21:13)
[2019-02-13] MEDS: SUCRALFATE 1 G/10 ML UDC GT SCH (09:00)
[2019-02-13] MEDS: BACI/NEOM/POLY B OINT PKT 1 UDPKT PACKET TP SCH ×2 (09:00→21:13)
[2019-02-13] MEDS: PROSOURCE / PROSTAT (PYXIS) 30 ML UDC GT SCH ×3 (09:00→17:33)
[2019-02-13] MEDS: HYDROCODONE/APAP 5/325MG 1 EACH TABLET GT SCH ×2 (09:00→21:13)
[2019-02-13] MEDS: LACTOBACILLUS RHAMNOSUS GG 1 EACH CAP.SPRINK GT SCH ×2 (09:00→17:33)
[2019-02-13] MEDS: OMEPRAZOLE 20 MG CAPSULE.DR GT SCH (09:00)
[2019-02-13] MEDS: TOBRAMYCIN/DEXAMETH OPHTH OINT 3.5 GM TUBE EACHEYE SCH ×2 (09:00→17:33)
[2019-02-13] MEDS: Z GUARD REMEDY 4 OZ OINT TP SCH ×2 (09:00→21:13)
[2019-02-13] MEDS: MEROPENEM 500 MG in IV NS 0.9% 50 ML IV SCH ×2 (10:00→21:48)
[2019-02-13 16:11] VITALS: BP 122/72
[2019-02-13] MEDS: NEPRO 1,000 ML BOTTLE GT PRN (17:40)
[2019-02-13 19:51] VITALS: BP 140/89
[2019-02-13] MEDS: FENOFIBRATE NANOCRYS (145 MG) 145 MG TABLET GT SCH (21:13)
[2019-02-13 21:51] VITALS: BP 140/90
[2019-02-14] MEDS: POLYVINYL ALCOHOL 15 ML BOTTLE EACHEYE SCH ×4 (00:09→18:33)
[2019-02-14] MEDS: BLOOD SUGAR DIAGNOSTIC 1 EACH STRIP IN SCH ×4 (00:09→18:33)
[2019-02-14] MEDS: METOCLOPRAMIDE HCL 10 MG TABLET GT SCH ×4 (00:09→18:33)
[2019-02-14] MEDS: INSULIN ASPART/LISPRO 100 UNIT/ML CARTRIDGE SQ PRN ×4 (00:10→18:34)
[2019-02-14 06:58] VITALS: BP 142/89
[2019-02-14 07:38] VITALS: BP 150/81
[2019-02-14] MEDS: POVIDONE-IODINE OINT 28.4 GM TUBE TP SCH ×2 (09:00→20:53)
[2019-02-14] MEDS: TOBRAMYCIN/DEXAMETH OPHTH OINT 3.5 GM TUBE EACHEYE SCH ×2 (09:00→17:00)
[2019-02-14] MEDS: HYDROCODONE/APAP 5/325MG 1 EACH TABLET GT SCH ×2 (09:00→20:53)
[2019-02-14] MEDS: Z GUARD REMEDY 4 OZ OINT TP SCH ×2 (09:00→20:53)
[2019-02-14] MEDS: OMEPRAZOLE 20 MG CAPSULE.DR GT SCH (09:00)
[2019-02-14] MEDS: VIT B CMPLX 3/FA/VIT C/BIOTIN 1 TAB TABLET GT SCH (09:00)
[2019-02-14] MEDS: NEUTRA PHOS 1 POWD.PACKET GT SCH (09:00)
[2019-02-14] MEDS: BASAGLAR KWIKPEN SQ SCH ×2 (09:00→21:06)
[2019-02-14] MEDS: PROSOURCE / PROSTAT (PYXIS) 30 ML UDC GT SCH ×3 (09:00→17:00)
[2019-02-14] MEDS: METOPROLOL TARTRATE 50 MG TABLET GT SCH ×2 (09:00→20:52)
[2019-02-14] MEDS: HYDROGEN PEROXIDE 480 ML BOTTLE TP SCH ×2 (09:00→20:53)
[2019-02-14] MEDS: ASCORBIC ACID 500 MG TABLET GT SCH (09:00)
[2019-02-14] MEDS: ZINC SULFATE 220 MG CAPSULE GT SCH (09:00)
[2019-02-14] MEDS: SUCRALFATE 1 G/10 ML UDC GT SCH (09:00)
[2019-02-14] MEDS: BACI/NEOM/POLY B OINT PKT 1 UDPKT PACKET TP SCH (09:00)
[2019-02-14] MEDS: LACTOBACILLUS RHAMNOSUS GG 1 EACH CAP.SPRINK GT SCH ×2 (09:00→17:00)
[2019-02-14] MEDS: DAKINS QUARTER STRENGTH (0.125%) 480 ML BOTTLE TOP SCH ×2 (09:00→20:53)
[2019-02-14] MEDS: MEROPENEM 500 MG in IV NS 0.9% 50 ML IV SCH (10:00)
--- NOTE | 2019-02-14 16:35 | NUR ---
Called Dr More's office to verify stop dates for pt's antibiotics. Left message with Joan. Addendum: 02/14/19 at 1723 by GUILLERMO BEARD RN ERROR WRONG CHART
[2019-02-14 16:57] VITALS: BP 150/81
--- NOTE | 2019-02-14 17:23 | NUR ---
Asked LOPEZ Buckley for stop dates for pt's Vancomycin and Merrem. She ordered to continue Vancomycin and Merrem for 5 more days.
[2019-02-14] MEDS: NEPRO 1,000 ML BOTTLE GT PRN (18:38)
[2019-02-14 20:08] VITALS: BP 95/52
[2019-02-14 20:27] VITALS: BP 149/90
[2019-02-14] MEDS: FENOFIBRATE NANOCRYS (145 MG) 145 MG TABLET GT SCH (21:07)
[2019-02-14 21:09] VITALS: BP 149/90
[2019-02-15] MEDS: POLYVINYL ALCOHOL 15 ML BOTTLE EACHEYE SCH ×4 (00:05→18:11)
[2019-02-15] MEDS: METOCLOPRAMIDE HCL 10 MG TABLET GT SCH ×4 (00:06→18:11)
[2019-02-15] MEDS: BLOOD SUGAR DIAGNOSTIC 1 EACH STRIP IN SCH ×4 (00:06→18:11)
[2019-02-15] MEDS: INSULIN ASPART/LISPRO 100 UNIT/ML CARTRIDGE SQ PRN ×4 (00:09→18:13)
[2019-02-15 00:16] VITALS: BP 145/87
[2019-02-15 06:30] VITALS: BP 141/91
[2019-02-15 07:40] VITALS: BP 126/82
[2019-02-15] MEDS: LACTOBACILLUS RHAMNOSUS GG 1 EACH CAP.SPRINK GT SCH ×2 (09:25→16:49)
[2019-02-15] MEDS: METOPROLOL TARTRATE 50 MG TABLET GT SCH ×2 (09:25→20:48)
[2019-02-15] MEDS: VIT B CMPLX 3/FA/VIT C/BIOTIN 1 TAB TABLET GT SCH (09:25)
[2019-02-15] MEDS: NEUTRA PHOS 1 POWD.PACKET GT SCH (09:25)
[2019-02-15] MEDS: SUCRALFATE 1 G/10 ML UDC GT SCH (09:25)
[2019-02-15] MEDS: TOBRAMYCIN/DEXAMETH OPHTH OINT 3.5 GM TUBE EACHEYE SCH ×2 (09:25→16:49)
[2019-02-15] MEDS: ASCORBIC ACID 500 MG TABLET GT SCH (09:26)
[2019-02-15] MEDS: PROSOURCE / PROSTAT (PYXIS) 30 ML UDC GT SCH ×3 (09:26→16:49)
[2019-02-15] MEDS: HYDROCODONE/APAP 5/325MG 1 EACH TABLET GT SCH ×2 (09:26→20:49)
[2019-02-15] MEDS: ZINC SULFATE 220 MG CAPSULE GT SCH (09:26)
[2019-02-15] MEDS: OMEPRAZOLE 20 MG CAPSULE.DR GT SCH (09:26)
[2019-02-15] MEDS: HYDROGEN PEROXIDE 480 ML BOTTLE TP SCH ×2 (09:48→20:49)
[2019-02-15] MEDS: BASAGLAR KWIKPEN SQ SCH ×2 (09:48→20:59)
[2019-02-15] MEDS: POVIDONE-IODINE OINT 28.4 GM TUBE TP SCH ×2 (09:48→20:49)
[2019-02-15] MEDS: Z GUARD REMEDY 4 OZ OINT TP SCH ×2 (09:48→20:49)
[2019-02-15] MEDS: DAKINS QUARTER STRENGTH (0.125%) 480 ML BOTTLE TOP SCH ×2 (09:48→20:49)
[2019-02-15] MEDS: VANCOMYCIN 500 MG in IV NS 0.9% 100 ML IV PRN (10:00)
[2019-02-15] MEDS: MEROPENEM 500 MG in IV NS 0.9% 50 ML IV SCH ×2 (10:00→22:00)
[2019-02-15] MEDS: NEPRO 1,000 ML BOTTLE GT PRN (10:58)
[2019-02-15 16:51] VITALS: BP 124/80
--- NOTE | 2019-02-15 17:00 | NUR ---
Left message for Dr Dia regarding Basaglar. Asked him if he wanted to increase pt's Basaglar since it was written in his notes. No new order at this time.
[2019-02-15 19:56] VITALS: BP 145/74
[2019-02-15 21:01] VITALS: BP 145/74
[2019-02-15] MEDS: FENOFIBRATE NANOCRYS (145 MG) 145 MG TABLET GT SCH (21:26)
[2019-02-16] VITALS (7 sets, daily range): BP systolic 111–151; BP diastolic 67–94
[2019-02-16] MEDS: METOCLOPRAMIDE HCL 10 MG TABLET GT SCH ×4 (00:12→17:54)
[2019-02-16] MEDS: POLYVINYL ALCOHOL 15 ML BOTTLE EACHEYE SCH ×4 (00:12→17:54)
[2019-02-16] MEDS: BLOOD SUGAR DIAGNOSTIC 1 EACH STRIP IN SCH ×4 (00:12→17:54)
[2019-02-16] MEDS: INSULIN ASPART/LISPRO 100 UNIT/ML CARTRIDGE SQ PRN ×4 (00:14→17:56)
[2019-02-16] MEDS: NEPRO 1,000 ML BOTTLE GT PRN (05:53)
[2019-02-16] MEDS: LACTOBACILLUS RHAMNOSUS GG 1 EACH CAP.SPRINK GT SCH ×2 (09:10→17:54)
[2019-02-16] MEDS: SUCRALFATE 1 G/10 ML UDC GT SCH (09:10)
[2019-02-16] MEDS: TOBRAMYCIN/DEXAMETH OPHTH OINT 3.5 GM TUBE EACHEYE SCH ×2 (09:10→17:54)
[2019-02-16] MEDS: METOPROLOL TARTRATE 50 MG TABLET GT SCH ×2 (09:10→21:30)
[2019-02-16] MEDS: NEUTRA PHOS 1 POWD.PACKET GT SCH (09:11)
[2019-02-16] MEDS: HYDROCODONE/APAP 5/325MG 1 EACH TABLET GT SCH ×2 (09:11→21:30)
[2019-02-16] MEDS: OMEPRAZOLE 20 MG CAPSULE.DR GT SCH (09:11)
[2019-02-16] MEDS: VIT B CMPLX 3/FA/VIT C/BIOTIN 1 TAB TABLET GT SCH (09:11)
[2019-02-16] MEDS: ASCORBIC ACID 500 MG TABLET GT SCH (09:11)
[2019-02-16] MEDS: ZINC SULFATE 220 MG CAPSULE GT SCH (09:11)
[2019-02-16] MEDS: PROSOURCE / PROSTAT (PYXIS) 30 ML UDC GT SCH ×3 (09:11→17:54)
[2019-02-16] MEDS: BASAGLAR KWIKPEN SQ SCH ×2 (09:12→21:58)
[2019-02-16] MEDS: MEROPENEM 500 MG in IV NS 0.9% 50 ML IV SCH ×2 (10:00→22:00)
[2019-02-16] MEDS: POVIDONE-IODINE OINT 28.4 GM TUBE TP SCH ×2 (10:11→21:58)
[2019-02-16] MEDS: HYDROGEN PEROXIDE 480 ML BOTTLE TP SCH ×2 (10:11→21:58)
[2019-02-16] MEDS: DAKINS QUARTER STRENGTH (0.125%) 480 ML BOTTLE TOP SCH ×2 (10:11→21:58)
[2019-02-16] MEDS: Z GUARD REMEDY 4 OZ OINT TP SCH ×2 (10:11→21:58)
--- NOTE | 2019-02-16 15:38 | NUR ---
SW communicated to pt's daughter Christine about this Sunday 02/18 IDT mtg. Both daughters and will be via phone.
--- NOTE | 2019-02-16 19:56 | NUR ---
Seen and examined by Dr. Rocha, made aware that patient was seen by Dr. Madsen last week and he plan to amputate patent's R gangrenous toes/heel. NNO given at this time.
[2019-02-16] MEDS: VANCOMYCIN 500 MG in IV NS 0.9% 100 ML IV PRN (20:59)
[2019-02-16] MEDS: FENOFIBRATE NANOCRYS (145 MG) 145 MG TABLET GT SCH (22:05)
[2019-02-17] VITALS (8 sets, daily range): BP systolic 116–157; BP diastolic 60–69
[2019-02-17] MEDS: BLOOD SUGAR DIAGNOSTIC 1 EACH STRIP IN SCH ×4 (00:04→17:49)
[2019-02-17] MEDS: POLYVINYL ALCOHOL 15 ML BOTTLE EACHEYE SCH ×4 (00:04→17:49)
[2019-02-17] MEDS: METOCLOPRAMIDE HCL 10 MG TABLET GT SCH ×4 (00:04→17:49)
[2019-02-17] MEDS: INSULIN ASPART/LISPRO 100 UNIT/ML CARTRIDGE SQ PRN ×4 (00:06→17:50)
[2019-02-17] MEDS: NEPRO 1,000 ML BOTTLE GT PRN (05:59)
[2019-02-17] MEDS: HYDROGEN PEROXIDE 480 ML BOTTLE TP SCH ×2 (09:00→21:58)
[2019-02-17] MEDS: Z GUARD REMEDY 4 OZ OINT TP SCH ×2 (09:00→21:58)
[2019-02-17] MEDS: POVIDONE-IODINE OINT 28.4 GM TUBE TP SCH ×2 (09:00→21:58)
[2019-02-17] MEDS: DAKINS QUARTER STRENGTH (0.125%) 480 ML BOTTLE TOP SCH ×2 (09:00→21:57)
[2019-02-17] MEDS: KETOCONAZOLE SHAMPOO 120 ML BOTTLE TP SCH (09:00)
[2019-02-17] MEDS: LACTOBACILLUS RHAMNOSUS GG 1 EACH CAP.SPRINK GT SCH ×2 (09:16→17:49)
[2019-02-17] MEDS: SUCRALFATE 1 G/10 ML UDC GT SCH (09:16)
[2019-02-17] MEDS: TOBRAMYCIN/DEXAMETH OPHTH OINT 3.5 GM TUBE EACHEYE SCH ×2 (09:16→17:49)
[2019-02-17] MEDS: PROSOURCE / PROSTAT (PYXIS) 30 ML UDC GT SCH ×3 (09:17→17:49)
[2019-02-17] MEDS: NEUTRA PHOS 1 POWD.PACKET GT SCH (09:17)
[2019-02-17] MEDS: ZINC SULFATE 220 MG CAPSULE GT SCH (09:17)
[2019-02-17] MEDS: ASCORBIC ACID 500 MG TABLET GT SCH (09:17)
[2019-02-17] MEDS: OMEPRAZOLE 20 MG CAPSULE.DR GT SCH (09:17)
[2019-02-17] MEDS: HYDROCODONE/APAP 5/325MG 1 EACH TABLET GT SCH ×2 (09:17→21:40)
[2019-02-17] MEDS: METOPROLOL TARTRATE 50 MG TABLET GT SCH ×2 (09:17→21:39)
[2019-02-17] MEDS: VIT B CMPLX 3/FA/VIT C/BIOTIN 1 TAB TABLET GT SCH (09:17)
[2019-02-17] MEDS: BASAGLAR KWIKPEN SQ SCH ×2 (09:18→21:42)
[2019-02-17] MEDS: MEROPENEM 500 MG in IV NS 0.9% 50 ML IV SCH ×2 (10:00→22:00)
--- NOTE | 2019-02-17 13:00 | NUR ---
Requested Dr Dhruv Chase to see pt for ashley. He said he will see him today.
--- NOTE | 2019-02-17 19:14 | NUR ---
Seen by Dr Dhruv Chase. He said pt has heat rash and ordered hydrocortisone cream 1% q shift for 14 days. Notified pt's daughter.
[2019-02-17] MEDS: FENOFIBRATE NANOCRYS (145 MG) 145 MG TABLET GT SCH (21:42)
[2019-02-18] VITALS (7 sets, daily range): BP systolic 111–132; BP diastolic 58–81
[2019-02-18] MEDS: METOCLOPRAMIDE HCL 10 MG TABLET GT SCH ×5 (00:21→23:43)
[2019-02-18] MEDS: POLYVINYL ALCOHOL 15 ML BOTTLE EACHEYE SCH ×5 (00:21→23:43)
[2019-02-18] MEDS: BLOOD SUGAR DIAGNOSTIC 1 EACH STRIP IN SCH ×5 (00:21→23:43)
[2019-02-18] MEDS: INSULIN ASPART/LISPRO 100 UNIT/ML CARTRIDGE SQ PRN ×5 (00:22→23:45)
[2019-02-18] MEDS: NEPRO 1,000 ML BOTTLE GT PRN (03:23)
[2019-02-18] MEDS: LACTOBACILLUS RHAMNOSUS GG 1 EACH CAP.SPRINK GT SCH ×2 (08:32→17:28)
[2019-02-18] MEDS: SUCRALFATE 1 G/10 ML UDC GT SCH (08:32)
[2019-02-18] MEDS: TOBRAMYCIN/DEXAMETH OPHTH OINT 3.5 GM TUBE EACHEYE SCH ×2 (08:32→17:28)
[2019-02-18] MEDS: VIT B CMPLX 3/FA/VIT C/BIOTIN 1 TAB TABLET GT SCH (08:33)
[2019-02-18] MEDS: NEUTRA PHOS 1 POWD.PACKET GT SCH (08:33)
[2019-02-18] MEDS: METOPROLOL TARTRATE 50 MG TABLET GT SCH ×2 (08:33→21:00)
[2019-02-18] MEDS: OMEPRAZOLE 20 MG CAPSULE.DR GT SCH (08:34)
[2019-02-18] MEDS: ASCORBIC ACID 500 MG TABLET GT SCH (08:34)
[2019-02-18] MEDS: HYDROCODONE/APAP 5/325MG 1 EACH TABLET GT SCH ×2 (08:34→21:49)
[2019-02-18] MEDS: PROSOURCE / PROSTAT (PYXIS) 30 ML UDC GT SCH ×3 (08:34→17:53)
[2019-02-18] MEDS: ZINC SULFATE 220 MG CAPSULE GT SCH (08:34)
[2019-02-18] MEDS: BASAGLAR KWIKPEN SQ SCH ×2 (08:35→21:49)
[2019-02-18] MEDS: HYDROGEN PEROXIDE 480 ML BOTTLE TP SCH ×2 (09:00→21:58)
[2019-02-18] MEDS: POVIDONE-IODINE OINT 28.4 GM TUBE TP SCH ×2 (09:00→21:58)
[2019-02-18] MEDS: HYDROCORTISONE 1% CREAM 30 GM TUBE TP SCH ×2 (09:00→21:58)
[2019-02-18] MEDS: Z GUARD REMEDY 4 OZ OINT TP SCH ×2 (09:00→21:59)
[2019-02-18] MEDS: DAKINS QUARTER STRENGTH (0.125%) 480 ML BOTTLE TOP SCH ×2 (09:00→21:58)
[2019-02-18] MEDS: MEROPENEM 500 MG in IV NS 0.9% 50 ML IV SCH ×2 (10:00→22:16)
--- NOTE | 2019-02-18 12:55 | NUR ---
PATIENT LEFT TO DIALYSIS IN STABLE CONDITION WITH THE FOLLOWING VITAL SIGNS BLOOD PRESSURE 120/76, PULSE 90, WAS SUCTIONED BY TRACHEOSTOMY AND ORAL WITH MINIMAL SECRETIONS, BLOOD SUGAR WAS 232, 5 UNITS WERE GIVEN PER MD, NO SIGNS OR SYMPTOMS OR HYPERGLYCEMIA OR HYPOGLYCEMIA. AT BEDSIDE.
--- NOTE | 2019-02-18 15:15 | NUR ---
INTERDISCIPLINARY TEAM CONFERENCE (IDT) was held today. Resident's and daughter Adrienne attended meeting Mother expressed concerns that the cause of patient's rashes because the room is hot. Explained that rashes is present even when he was in the other room. Engr. department has been notified and will provide electric fan to the room. According to patient's daughter Adrienne, Dr. Madsen told Christine (other daughter) that will do the R knee amputation when the sacral wound gets better. Sacral wound has not shown any signs of improvement. Dr. Rocha and the interdisciplinary team reviewed the current plan of care in detail. Orders as well as treatment and medications were reviewed. increased Basaglar to 13 units after reviewing BS results in the past few days. Dr. Rocha said to follow-up with Dr. Madsen regarding plan for amputation. During Dr. Dia's round today, he was made aware of Dr. Madsen's plans and he said that he will call him. Endorsed.
--- NOTE | 2019-02-18 17:20 | NUR ---
PATIENT RETURNED FROM DIALYSIS CENTER, 0.8 KILOS WERE REMOVED, PRE-DIALYSIS WT 57.8, POST DIALYSIS WT 57, CATHETER ON RIGHT UPPER CHEST INTACT, DRESSING CLEAN, NO BLEEDING NOTED, AT ARRIVAL CONNECTED TO VENTILATOR WITH CURRENT SETTINGS, VITAL SIGNS BLOOD PRESSURE 132/81, TEMP 98.9, PULSE 103, NO FACIAL GRIMACING NOTED,
[2019-02-18] MEDS: FENOFIBRATE NANOCRYS (145 MG) 145 MG TABLET GT SCH (21:51)
[2019-02-18] MEDS: VANCOMYCIN 500 MG in IV NS 0.9% 100 ML IV PRN (23:27)
--- NOTE | 2019-02-18 23:30 | NUR ---
ms/rn notes Administer vancomycin 500 mg ivpb as ordered post Hd. Will continue to monitor.
[2019-02-19] VITALS (8 sets, daily range): BP systolic 121–151; BP diastolic 52–72
[2019-02-19] MEDS: METOCLOPRAMIDE HCL 10 MG TABLET GT SCH ×3 (05:47→18:12)
[2019-02-19] MEDS: POLYVINYL ALCOHOL 15 ML BOTTLE EACHEYE SCH ×3 (05:47→18:12)
[2019-02-19] MEDS: NEPRO 1,000 ML BOTTLE GT PRN (05:48)
[2019-02-19] MEDS: BLOOD SUGAR DIAGNOSTIC 1 EACH STRIP IN SCH ×3 (05:58→18:12)
[2019-02-19] MEDS: INSULIN ASPART/LISPRO 100 UNIT/ML CARTRIDGE SQ PRN ×3 (05:59→18:13)
[2019-02-19] MEDS: HYDROGEN PEROXIDE 480 ML BOTTLE TP SCH ×2 (09:00→20:33)
[2019-02-19] MEDS: Z GUARD REMEDY 4 OZ OINT TP SCH ×2 (09:00→20:33)
[2019-02-19] MEDS: HYDROCORTISONE 1% CREAM 30 GM TUBE TP SCH ×2 (09:00→20:33)
[2019-02-19] MEDS: TOBRAMYCIN/DEXAMETH OPHTH OINT 3.5 GM TUBE EACHEYE SCH ×2 (09:00→17:00)
[2019-02-19] MEDS: SUCRALFATE 1 G/10 ML UDC GT SCH (09:46)
[2019-02-19] MEDS: ASCORBIC ACID 500 MG TABLET GT SCH (09:47)
[2019-02-19] MEDS: METOPROLOL TARTRATE 50 MG TABLET GT SCH ×2 (09:47→20:31)
[2019-02-19] MEDS: OMEPRAZOLE 20 MG CAPSULE.DR GT SCH (09:47)
[2019-02-19] MEDS: PROSOURCE / PROSTAT (PYXIS) 30 ML UDC GT SCH ×3 (09:47→17:00)
[2019-02-19] MEDS: ZINC SULFATE 220 MG CAPSULE GT SCH (09:47)
[2019-02-19] MEDS: HYDROCODONE/APAP 5/325MG 1 EACH TABLET GT SCH ×2 (09:48→20:31)
[2019-02-19] MEDS: NEUTRA PHOS 1 POWD.PACKET GT SCH (09:52)
[2019-02-19] MEDS: VIT B CMPLX 3/FA/VIT C/BIOTIN 1 TAB TABLET GT SCH (09:52)
[2019-02-19] MEDS: LACTOBACILLUS RHAMNOSUS GG 1 EACH CAP.SPRINK GT SCH ×2 (09:52→17:00)
[2019-02-19] MEDS: BASAGLAR KWIKPEN SQ SCH ×2 (09:55→20:32)
[2019-02-19] MEDS: MEROPENEM 500 MG in IV NS 0.9% 50 ML IV SCH ×2 (10:00→22:00)
[2019-02-19] MEDS: POVIDONE-IODINE OINT 28.4 GM TUBE TP SCH ×2 (10:30→20:32)
[2019-02-19] MEDS: DAKINS QUARTER STRENGTH (0.125%) 480 ML BOTTLE TOP SCH ×2 (10:30→20:32)
[2019-02-19] MEDS: FENOFIBRATE NANOCRYS (145 MG) 145 MG TABLET GT SCH (22:35)
[2019-02-20] VITALS: BP 129/64
[2019-02-20] MEDS: INSULIN ASPART/LISPRO 100 UNIT/ML CARTRIDGE SQ PRN ×4 (02:09→17:58)
[2019-02-20 04:00] VITALS: BP 150/71
[2019-02-20] MEDS: NEPRO 1,000 ML BOTTLE GT PRN (04:31)
[2019-02-20] MEDS: METOCLOPRAMIDE HCL 10 MG TABLET GT SCH ×4 (05:21→17:09)
[2019-02-20] MEDS: BLOOD SUGAR DIAGNOSTIC 1 EACH STRIP IN SCH ×4 (05:21→17:57)
[2019-02-20] MEDS: POLYVINYL ALCOHOL 15 ML BOTTLE EACHEYE SCH ×4 (05:21→17:09)
[2019-02-20 08:00] VITALS: BP 146/76
[2019-02-20] MEDS: HYDROCORTISONE 1% CREAM 30 GM TUBE TP SCH ×2 (09:00→20:52)
[2019-02-20] MEDS: TOBRAMYCIN/DEXAMETH OPHTH OINT 3.5 GM TUBE EACHEYE SCH ×2 (09:00→17:08)
[2019-02-20] MEDS: VIT B CMPLX 3/FA/VIT C/BIOTIN 1 TAB TABLET GT SCH (09:00)
[2019-02-20] MEDS: POVIDONE-IODINE OINT 28.4 GM TUBE TP SCH ×2 (09:00→20:52)
[2019-02-20] MEDS: SUCRALFATE 1 G/10 ML UDC GT SCH (09:00)
[2019-02-20] MEDS: BASAGLAR KWIKPEN SQ SCH ×2 (09:00→21:01)
[2019-02-20] MEDS: HYDROGEN PEROXIDE 480 ML BOTTLE TP SCH ×2 (09:00→20:52)
[2019-02-20] MEDS: NEUTRA PHOS 1 POWD.PACKET GT SCH (09:00)
[2019-02-20] MEDS: ZINC SULFATE 220 MG CAPSULE GT SCH (09:00)
[2019-02-20] MEDS: ASCORBIC ACID 500 MG TABLET GT SCH (09:00)
[2019-02-20] MEDS: DAKINS QUARTER STRENGTH (0.125%) 480 ML BOTTLE TOP SCH ×2 (09:00→20:52)
[2019-02-20] MEDS: HYDROCODONE/APAP 5/325MG 1 EACH TABLET GT SCH ×2 (09:00→20:51)
[2019-02-20] MEDS: Z GUARD REMEDY 4 OZ OINT TP SCH ×2 (09:00→20:52)
[2019-02-20] MEDS: PROSOURCE / PROSTAT (PYXIS) 30 ML UDC GT SCH ×3 (09:00→17:08)
[2019-02-20] MEDS: LACTOBACILLUS RHAMNOSUS GG 1 EACH CAP.SPRINK GT SCH ×2 (09:00→17:08)
[2019-02-20] MEDS: METOPROLOL TARTRATE 50 MG TABLET GT SCH ×2 (09:00→20:50)
[2019-02-20] MEDS: OMEPRAZOLE 20 MG CAPSULE.DR GT SCH (09:00)
[2019-02-20 17:11] VITALS: BP 140/72
[2019-02-20 19:45] VITALS: BP 158/64
[2019-02-20 21:07] VITALS: BP 129/67
[2019-02-20] MEDS: FENOFIBRATE NANOCRYS (145 MG) 145 MG TABLET GT SCH (22:33)
[2019-02-21] VITALS (8 sets, daily range): BP systolic 103–147; BP diastolic 48–71
[2019-02-21] MEDS: METOCLOPRAMIDE HCL 10 MG TABLET GT SCH ×4 (00:38→17:39)
[2019-02-21] MEDS: POLYVINYL ALCOHOL 15 ML BOTTLE EACHEYE SCH ×4 (00:38→17:39)
[2019-02-21] MEDS: BLOOD SUGAR DIAGNOSTIC 1 EACH STRIP IN SCH ×4 (00:38→18:23)
[2019-02-21] MEDS: INSULIN ASPART/LISPRO 100 UNIT/ML CARTRIDGE SQ PRN ×4 (00:40→18:26)
[2019-02-21] MEDS: NEPRO 1,000 ML BOTTLE GT PRN (02:19)
--- NOTE | 2019-02-21 07:51 | NUR ---
RT Pt received trached on the vent with noted settings. Pt is awake but does not follow commands. Vent alarms are set and audible with BVM by bedside. CORN CHIP MAKER cuff pressure noted. Vent is plugged into red outlet. Sx'd small thick pale yellow secretions. No respiratory distress noted at this time. Addendum: 02/21/19 at 1321 by SAJAN BOLANOS RT Amended: Links added.
--- NOTE | 2019-02-21 07:51 | NUR ---
INTERDISCIPLINARY PLAN OF CARE CONFERENCE was held today. Resident's and daughter attended the mtg and expressed concerns about pt's room temperature and questioned that if it is affecting pt's skins rashes. said that the conditions of skin had worsened since pts was transferred to current room. Charge nurse Lilly explained that engineers are working on the a/c and it will be fixed john, Lilly informed family that a fan was being placed in pt's room to help cool the room. Family members informed staff that they spoke with orthopedic surgeon about amputating pt's toe and are in the agreement with dr's decision. Dr. Rocha and the interdisciplinary team discussed the current plan of care in detail. Current orders as well as treatments and medications were reviewed. Addendum: 02/21/19 at 0803 by PIA ARORA IDT was held on 02/18
[2019-02-21] MEDS: HYDROCORTISONE 1% CREAM 30 GM TUBE TP SCH ×2 (09:00→21:27)
[2019-02-21] MEDS: Z GUARD REMEDY 4 OZ OINT TP SCH ×2 (09:00→21:27)
[2019-02-21] MEDS: LACTOBACILLUS RHAMNOSUS GG 1 EACH CAP.SPRINK GT SCH ×2 (09:00→17:39)
[2019-02-21] MEDS: OMEPRAZOLE 20 MG CAPSULE.DR GT SCH (09:00)
[2019-02-21] MEDS: TOBRAMYCIN/DEXAMETH OPHTH OINT 3.5 GM TUBE EACHEYE SCH ×2 (09:00→17:39)
[2019-02-21] MEDS: SUCRALFATE 1 G/10 ML UDC GT SCH (09:00)
[2019-02-21] MEDS: HYDROCODONE/APAP 5/325MG 1 EACH TABLET GT SCH ×2 (09:00→21:27)
[2019-02-21] MEDS: HYDROGEN PEROXIDE 480 ML BOTTLE TP SCH ×2 (09:00→21:27)
[2019-02-21] MEDS: PROSOURCE / PROSTAT (PYXIS) 30 ML UDC GT SCH ×3 (09:00→17:39)
[2019-02-21] MEDS: METOPROLOL TARTRATE 50 MG TABLET GT SCH ×2 (09:00→21:00)
[2019-02-21] MEDS: ZINC SULFATE 220 MG CAPSULE GT SCH (09:00)
[2019-02-21] MEDS: ASCORBIC ACID 500 MG TABLET GT SCH (09:00)
[2019-02-21] MEDS: VIT B CMPLX 3/FA/VIT C/BIOTIN 1 TAB TABLET GT SCH (09:00)
[2019-02-21] MEDS: NEUTRA PHOS 1 POWD.PACKET GT SCH (09:00)
[2019-02-21] MEDS: DAKINS QUARTER STRENGTH (0.125%) 480 ML BOTTLE TOP SCH ×2 (09:00→21:27)
[2019-02-21] MEDS: POVIDONE-IODINE OINT 28.4 GM TUBE TP SCH ×2 (09:00→21:27)
[2019-02-21] MEDS: BASAGLAR KWIKPEN SQ SCH ×2 (09:00→21:00)
[2019-02-21] MEDS: FENOFIBRATE NANOCRYS (145 MG) 145 MG TABLET GT SCH (21:28)
[2019-02-22] VITALS: BP 155/77
[2019-02-22] MEDS: BLOOD SUGAR DIAGNOSTIC 1 EACH STRIP IN SCH ×4 (00:11→17:47)
[2019-02-22] MEDS: POLYVINYL ALCOHOL 15 ML BOTTLE EACHEYE SCH ×4 (00:11→17:47)
[2019-02-22] MEDS: METOCLOPRAMIDE HCL 10 MG TABLET GT SCH ×4 (00:12→17:47)
[2019-02-22] MEDS: INSULIN ASPART/LISPRO 100 UNIT/ML CARTRIDGE SQ PRN ×4 (00:13→17:48)
--- NOTE | 2019-02-22 02:35 | NUR ---
RT NOTE: RECEIVED PT ON ORDERED NOTED VENT SETTINGS. NO RESPIRATORY DISTRESS NOTED. TRACH CHECKED SECURE AND PATENT. SXD AND LAVAGE PT Q ROUND AND NEEDED. SPARE TRACH AND AMBU BAG @ BEDSIDE. ALARMS CHECKED ON AND AUDIBLE. WILL CONTINUE TO MONITOR. Addendum: 02/22/19 at 0235 by ALEX PRAJAPATI RT Amended: Links added.
[2019-02-22 04:00] VITALS: BP 156/78
[2019-02-22] MEDS: NEPRO 1,000 ML BOTTLE GT PRN ×2 (04:51→21:02)
[2019-02-22 07:55] VITALS: BP 166/79
[2019-02-22] MEDS: HYDROGEN PEROXIDE 480 ML BOTTLE TP SCH ×2 (09:00→20:49)
[2019-02-22] MEDS: POVIDONE-IODINE OINT 28.4 GM TUBE TP SCH ×2 (09:00→20:49)
[2019-02-22] MEDS: ASCORBIC ACID 500 MG TABLET GT SCH (09:00)
[2019-02-22] MEDS: BASAGLAR KWIKPEN SQ SCH ×2 (09:00→20:58)
[2019-02-22] MEDS: METOPROLOL TARTRATE 50 MG TABLET GT SCH ×2 (09:00→20:47)
[2019-02-22] MEDS: TOBRAMYCIN/DEXAMETH OPHTH OINT 3.5 GM TUBE EACHEYE SCH ×2 (09:00→17:46)
[2019-02-22] MEDS: Z GUARD REMEDY 4 OZ OINT TP SCH ×2 (09:00→20:49)
[2019-02-22] MEDS: SUCRALFATE 1 G/10 ML UDC GT SCH (09:00)
[2019-02-22] MEDS: OMEPRAZOLE 20 MG CAPSULE.DR GT SCH (09:00)
[2019-02-22] MEDS: HYDROCODONE/APAP 5/325MG 1 EACH TABLET GT SCH ×2 (09:00→20:48)
[2019-02-22] MEDS: VIT B CMPLX 3/FA/VIT C/BIOTIN 1 TAB TABLET GT SCH (09:00)
[2019-02-22] MEDS: DAKINS QUARTER STRENGTH (0.125%) 480 ML BOTTLE TOP SCH ×2 (09:00→20:49)
[2019-02-22] MEDS: NEUTRA PHOS 1 POWD.PACKET GT SCH (09:00)
[2019-02-22] MEDS: LACTOBACILLUS RHAMNOSUS GG 1 EACH CAP.SPRINK GT SCH ×2 (09:00→17:46)
[2019-02-22] MEDS: PROSOURCE / PROSTAT (PYXIS) 30 ML UDC GT SCH ×3 (09:00→17:46)
[2019-02-22] MEDS: HYDROCORTISONE 1% CREAM 30 GM TUBE TP SCH ×2 (09:00→20:49)
[2019-02-22] MEDS: ZINC SULFATE 220 MG CAPSULE GT SCH (09:00)
[2019-02-22 16:45] VITALS: BP 140/71
[2019-02-22 20:16] VITALS: BP 152/70
[2019-02-22 20:59] VITALS: BP 152/70
[2019-02-22] MEDS: FENOFIBRATE NANOCRYS (145 MG) 145 MG TABLET GT SCH (21:23)
[2019-02-23] VITALS (7 sets, daily range): BP systolic 116–150; BP diastolic 66–84
[2019-02-23] MEDS: POLYVINYL ALCOHOL 15 ML BOTTLE EACHEYE SCH ×4 (00:16→17:25)
[2019-02-23] MEDS: METOCLOPRAMIDE HCL 10 MG TABLET GT SCH ×4 (00:17→17:25)
[2019-02-23] MEDS: BLOOD SUGAR DIAGNOSTIC 1 EACH STRIP IN SCH ×4 (00:18→17:25)
[2019-02-23] MEDS: INSULIN ASPART/LISPRO 100 UNIT/ML CARTRIDGE SQ PRN ×4 (00:20→17:27)
[2019-02-23] MEDS: Z GUARD REMEDY 4 OZ OINT TP SCH ×2 (09:00→20:51)
[2019-02-23] MEDS: HYDROCORTISONE 1% CREAM 30 GM TUBE TP SCH ×2 (09:00→20:51)
[2019-02-23] MEDS: POVIDONE-IODINE OINT 28.4 GM TUBE TP SCH ×2 (09:00→20:51)
[2019-02-23] MEDS: HYDROGEN PEROXIDE 480 ML BOTTLE TP SCH ×2 (09:00→20:51)
[2019-02-23] MEDS: DAKINS QUARTER STRENGTH (0.125%) 480 ML BOTTLE TOP SCH ×2 (09:00→20:50)
[2019-02-23] MEDS: TOBRAMYCIN/DEXAMETH OPHTH OINT 3.5 GM TUBE EACHEYE SCH ×2 (09:21→17:25)
[2019-02-23] MEDS: LACTOBACILLUS RHAMNOSUS GG 1 EACH CAP.SPRINK GT SCH ×2 (09:21→17:25)
[2019-02-23] MEDS: SUCRALFATE 1 G/10 ML UDC GT SCH (09:21)
[2019-02-23] MEDS: HYDROCODONE/APAP 5/325MG 1 EACH TABLET GT SCH ×2 (09:22→20:50)
[2019-02-23] MEDS: OMEPRAZOLE 20 MG CAPSULE.DR GT SCH (09:22)
[2019-02-23] MEDS: ASCORBIC ACID 500 MG TABLET GT SCH (09:22)
[2019-02-23] MEDS: VIT B CMPLX 3/FA/VIT C/BIOTIN 1 TAB TABLET GT SCH (09:22)
[2019-02-23] MEDS: PROSOURCE / PROSTAT (PYXIS) 30 ML UDC GT SCH ×3 (09:22→17:25)
[2019-02-23] MEDS: NEUTRA PHOS 1 POWD.PACKET GT SCH (09:22)
[2019-02-23] MEDS: METOPROLOL TARTRATE 50 MG TABLET GT SCH ×2 (09:22→21:00)
[2019-02-23] MEDS: ZINC SULFATE 220 MG CAPSULE GT SCH (09:22)
[2019-02-23] MEDS: BASAGLAR KWIKPEN SQ SCH ×2 (09:24→21:01)
--- NOTE | 2019-02-23 13:00 | NUR ---
PATIENT LEFT TO RENAL [facility]IAL[facility]IS CENTER IN STABLE CONDITION, VITAL SIGNS 136/74, 93, 98.8F, RESP 18, NO FACIAL GRIMACING NOTED, DIALYSIS CATHETER ON RIGHT UPPER CHEST INTACT, BLOOD SUGAR WAS 201, 5 UNITS OF INSULIN ASPART GIVEN, NO SIGNS OR SYMPTOMS OF HYPERGLYCEMIA, OR HYPOGLYCEMIA.
--- NOTE | 2019-02-23 17:00 | NUR ---
PATIENT RETURNED FROM RENAL S/P DIALYSIS CENTER, PRE DIALYSIS WEIGHT 56.25 WITH VITAL SIGNS BP144/84, PULSE 107, RESP 18, POST DIALYSIS WEIGHT- 54.6, BP 104/55 PULSE 90, RESP 2O, AT ARRIVAL CONNECTED TO VENTILATOR WITH PRESCRIBED SETTINGS, SUCTIONED ORAL AND TRACHEAL WITH MINIMAL SECRETIONS, PALE YELLOW, MODERATE AMOUNT, VITAL SIGNS AT ARRIVAL BP 116/66, TEMP 98.9, PULSE 94, RESP 18, NO FACIAL GRIMACING OR DISCOMFORT OBSERVED, RIGHT UPPER CHEST CATHETER INTACT, NO BLEEDING, ACCUCHECK 139, GIVEN 2 UNITS PER SCALE, INSULIN ASPART.
[2019-02-23] MEDS: FENOFIBRATE NANOCRYS (145 MG) 145 MG TABLET GT SCH (21:24)
[2019-02-24] VITALS (7 sets, daily range): BP systolic 99–144; BP diastolic 46–89
[2019-02-24] MEDS: NEPRO 1,000 ML BOTTLE GT PRN ×2 (00:02→18:51)
[2019-02-24] MEDS: POLYVINYL ALCOHOL 15 ML BOTTLE EACHEYE SCH ×5 (00:03→23:43)
[2019-02-24] MEDS: METOCLOPRAMIDE HCL 10 MG TABLET GT SCH ×5 (00:03→23:43)
[2019-02-24] MEDS: BLOOD SUGAR DIAGNOSTIC 1 EACH STRIP IN SCH ×5 (00:12→23:44)
[2019-02-24] MEDS: INSULIN ASPART/LISPRO 100 UNIT/ML CARTRIDGE SQ PRN ×5 (00:14→23:46)
--- NOTE | 2019-02-24 08:12 | NUR ---
RT NOTE: RECEIVED PT ON ORDERED NOTED VENT SETTINGS. NO RESPIRATORY DISTRESS NOTED. TRACH CHECKED SECURE AND PATENT. SXD AND LAVAGE PT Q ROUND AND NEEDED. SPARE TRACH AND AMBU BAG @ BEDSIDE. ALARMS CHECKED ON AND AUDIBLE. WILL CONTINUE TO MONITOR.
[2019-02-24] MEDS: BASAGLAR KWIKPEN SQ SCH ×2 (09:00→21:41)
[2019-02-24] MEDS: SUCRALFATE 1 G/10 ML UDC GT SCH (09:00)
[2019-02-24] MEDS: TOBRAMYCIN/DEXAMETH OPHTH OINT 3.5 GM TUBE EACHEYE SCH ×2 (09:00→17:00)
[2019-02-24] MEDS: VIT B CMPLX 3/FA/VIT C/BIOTIN 1 TAB TABLET GT SCH (09:00)
[2019-02-24] MEDS: OMEPRAZOLE 20 MG CAPSULE.DR GT SCH (09:00)
[2019-02-24] MEDS: ASCORBIC ACID 500 MG TABLET GT SCH (09:00)
[2019-02-24] MEDS: PROSOURCE / PROSTAT (PYXIS) 30 ML UDC GT SCH ×3 (09:00→17:00)
[2019-02-24] MEDS: ZINC SULFATE 220 MG CAPSULE GT SCH (09:00)
[2019-02-24] MEDS: NEUTRA PHOS 1 POWD.PACKET GT SCH (09:00)
[2019-02-24] MEDS: METOPROLOL TARTRATE 50 MG TABLET GT SCH ×2 (09:00→21:00)
[2019-02-24] MEDS: LACTOBACILLUS RHAMNOSUS GG 1 EACH CAP.SPRINK GT SCH ×2 (09:00→17:00)
[2019-02-24] MEDS: KETOCONAZOLE SHAMPOO 120 ML BOTTLE TP SCH (10:30)
[2019-02-24] MEDS: HYDROCODONE/APAP 5/325MG 1 EACH TABLET GT SCH ×2 (11:00→21:18)
[2019-02-24] MEDS: Z GUARD REMEDY 4 OZ OINT TP SCH ×2 (11:30→22:00)
[2019-02-24] MEDS: POVIDONE-IODINE OINT 28.4 GM TUBE TP SCH (11:30)
[2019-02-24] MEDS: HYDROCORTISONE 1% CREAM 30 GM TUBE TP SCH ×2 (11:30→22:00)
[2019-02-24] MEDS: HYDROGEN PEROXIDE 480 ML BOTTLE TP SCH ×2 (11:30→22:00)
[2019-02-24] MEDS: DAKINS QUARTER STRENGTH (0.125%) 480 ML BOTTLE TOP SCH (11:30)
[2019-02-24] MEDS: ONDANSETRON 4 MG TAB.RAPDIS GT PRN (21:00)
[2019-02-24] MEDS: FENOFIBRATE NANOCRYS (145 MG) 145 MG TABLET GT SCH (21:26)
[2019-02-25] VITALS (7 sets, daily range): BP systolic 117–155; BP diastolic 65–81
[2019-02-25] MEDS: BLOOD SUGAR DIAGNOSTIC 1 EACH STRIP IN SCH ×4 (05:34→23:05)
[2019-02-25] MEDS: POLYVINYL ALCOHOL 15 ML BOTTLE EACHEYE SCH ×4 (05:34→23:00)
[2019-02-25] MEDS: METOCLOPRAMIDE HCL 10 MG TABLET GT SCH ×4 (05:34→23:00)
[2019-02-25] MEDS: INSULIN ASPART/LISPRO 100 UNIT/ML CARTRIDGE SQ PRN ×4 (05:36→23:10)
--- NOTE | 2019-02-25 06:10 | NUR ---
Pt noted with low grade temp 100.0 cooling measures provided.Will continue to monitor.
[2019-02-25] MEDS: SUCRALFATE 1 G/10 ML UDC GT SCH (09:00)
[2019-02-25] MEDS: PROSOURCE / PROSTAT (PYXIS) 30 ML UDC GT SCH ×3 (09:00→17:00)
[2019-02-25] MEDS: VIT B CMPLX 3/FA/VIT C/BIOTIN 1 TAB TABLET GT SCH (09:00)
[2019-02-25] MEDS: METOPROLOL TARTRATE 50 MG TABLET GT SCH ×2 (09:00→20:48)
[2019-02-25] MEDS: NEUTRA PHOS 1 POWD.PACKET GT SCH (09:00)
[2019-02-25] MEDS: ZINC SULFATE 220 MG CAPSULE GT SCH (09:00)
[2019-02-25] MEDS: OMEPRAZOLE 20 MG CAPSULE.DR GT SCH (09:00)
[2019-02-25] MEDS: TOBRAMYCIN/DEXAMETH OPHTH OINT 3.5 GM TUBE EACHEYE SCH (09:00)
[2019-02-25] MEDS: ASCORBIC ACID 500 MG TABLET GT SCH (09:00)
[2019-02-25] MEDS: BASAGLAR KWIKPEN SQ SCH ×2 (09:00→20:53)
[2019-02-25] MEDS: LACTOBACILLUS RHAMNOSUS GG 1 EACH CAP.SPRINK GT SCH ×2 (09:00→17:00)
--- NOTE | 2019-02-25 09:26 | NUR ---
RT Pt received trached on the vent with noted settings. Pt is awake but unable to follow commands. Vent alarms are set and audible with BVM by bedside. TAPE RECORDER MECHANIC cuff pressure noted. Vent is plugged into red outlet. Sx'd small thick pale yellow secretions. No respiratory distress noted at this time. Addendum: 02/25/19 at 0927 by LESLY WARREN RT Amended: Links added.
[2019-02-25] MEDS: HYDROCODONE/APAP 5/325MG 1 EACH TABLET GT SCH ×2 (10:30→20:51)
[2019-02-25] MEDS: HYDROCORTISONE 1% CREAM 30 GM TUBE TP SCH ×2 (11:00→20:58)
[2019-02-25] MEDS: Z GUARD REMEDY 4 OZ OINT TP SCH ×2 (11:00→20:59)
[2019-02-25] MEDS: DAKINS QUARTER STRENGTH (0.125%) 480 ML BOTTLE TOP SCH ×2 (11:00→20:58)
[2019-02-25] MEDS: POVIDONE-IODINE OINT 28.4 GM TUBE TP SCH ×4 (11:00→20:58)
[2019-02-25] MEDS: HYDROGEN PEROXIDE 480 ML BOTTLE TP SCH ×2 (11:00→20:59)
--- NOTE | 2019-02-25 11:00 | NUR ---
ANN Trammell pass by and requested to re-evaluate treatment in the sacral wound since current treatment does not show progress. She said she will inform Dr. Bartlett about it.
--- NOTE | 2019-02-25 13:51 | NUR ---
Called [facility] transportation, spoke with Sae regarding delay in picking up patient for his dialysis. According to Sae, the insurance only authorized cook pickled meat until February 23, 2019. SSD to follow-up with transportation. [facility] notified, spoke with Yanely who said that does not like shortening his treatment and therefore rescheduled dialysis tomorrow at 2 pm. According to Yanely that if patient does not come within the next 5 minutes, they will not be able to do even a short dialysis treatment. SSD informed of the new dialysis schedule.
--- NOTE | 2019-02-25 14:10 | NUR ---
Received a call from Rigo from [facility] dispatch apologizing that they were not able to tack picker the patient today. However he said that since they have a contract with the facility he said that they will take care of this transport today. Informed Rigo that dialysis already reschedule the patient's dialysis for tomorrow at 2 pm. He will make a note that ambulance to contact facility for future transport, this is only good for tomorrow's transport. Endorsed.
[2019-02-25] MEDS: NEPRO 1,000 ML BOTTLE GT PRN (15:08)
--- NOTE | 2019-02-25 15:30 | NUR ---
Dr. Dia notified that dialysis was not done today due to issues with patient's insurance. Notified resident's daughter Christine that dialysis is rescheduled for tomorrow due to transportation problem. She said that there are some mixed up with the insurance and she will take care of it. Clarified with Christine of what the family wants to happen with the gangrenous R foot toes. According to Christine, based on her conversation with Dr. Madsen, the surgery will be deferred until the sacral wound improved because he does not want patient to heel two wounds. According to patient's mother who participated in the IDT meeting via phone conference, she is agreeing to what the doctor decide. However informed family that sacral wound is not getting better in fact it is getting worse. Dr. Bartlett was notified through her BUSINESS CONTINUITY PLANNER to evaluate current treatment. Dr. Rocha explained to the family during IDT meeting that because of patient's condition, wound heeling is compromised. Placed a call to Dr. Madsen's office spoke with Zahida requesting for MD to call back to find out the plan regarding the gangrenous toes. Awaiting for call back. Endorsed.
--- NOTE | 2019-02-25 16:08 | NUR ---
RADHA was informed by [facility] pt's transportation was cancelled due to problems on pt's medical. RADHA called the [facility] ( responsible for authorizing transportation) and was informed system showed pt's medical was cancelled on 02/18. RADHA was transferred to [facility] to get clarification. Spoke with Juan and he told SW that Medical was good, but "needed to be reinstated" to show on [facility]'s system. Juan gave SW a reference number [id number] for tomorrow's dialysis and said that pt would be given a non-expiring transportation referral [id number]. SW was transferred back to [facility] but they said pt still shows medical has . Could not schedule pt's dialysis. RADHA was transferred back to [facility] and Dari confirmed that pts is active in the system. Dari called [facility], but [facility] informed it is not showing in their system, therefore they would not schedule Thu, Thu and Thursday transportation. Dari said she was going to email [facility] supervisor finishing department to ask if they could schedule Thursday cook pickled meat even with patient being inactive on their system. RADHA will follow up on Thursday to check if system has been updated. RADHA called [facility] to explain about pt's medical being reinstated. Davie said [facility] will place patient back on ,, schedule.
--- NOTE | 2019-02-25 18:30 | NUR ---
Received a call from Dorinda from [id number] [place] confirming the transport for tomorrow. According to Dorinda, DAMI Murray put the request for transportation but confirming with this nurse if information are correct. Per record inputted by DAMI Murray patient requires a regular transport, request for transportation is only on Fridays and patient will require Bariatric bed. Dorinda is updated the information. Patient requires transport 3 x per week, patient is on a ventilator with [facility] transport and he does not require bariatric bed. Endorsed.
[2019-02-25] MEDS: FENOFIBRATE NANOCRYS (145 MG) 145 MG TABLET GT SCH (21:00)
[2019-02-26 04:46] VITALS: BP 129/67
[2019-02-26] MEDS: METOCLOPRAMIDE HCL 10 MG TABLET GT SCH ×4 (05:24→23:13)
[2019-02-26] MEDS: POLYVINYL ALCOHOL 15 ML BOTTLE EACHEYE SCH ×4 (05:24→23:13)
[2019-02-26] MEDS: BLOOD SUGAR DIAGNOSTIC 1 EACH STRIP IN SCH ×4 (05:24→23:13)
[2019-02-26] MEDS: INSULIN ASPART/LISPRO 100 UNIT/ML CARTRIDGE SQ PRN ×4 (05:30→23:16)
[2019-02-26 07:37] VITALS: BP 120/75
[2019-02-26 08:00] VITALS: BP 146/74
[2019-02-26] MEDS: LACTOBACILLUS RHAMNOSUS GG 1 EACH CAP.SPRINK GT SCH ×2 (09:53→17:58)
[2019-02-26] MEDS: SUCRALFATE 1 G/10 ML UDC GT SCH (09:53)
[2019-02-26] MEDS: PROSOURCE / PROSTAT (PYXIS) 30 ML UDC GT SCH ×3 (09:54→17:58)
[2019-02-26] MEDS: ASCORBIC ACID 500 MG TABLET GT SCH (09:54)
[2019-02-26] MEDS: ZINC SULFATE 220 MG CAPSULE GT SCH (09:54)
[2019-02-26] MEDS: HYDROCODONE/APAP 5/325MG 1 EACH TABLET GT SCH ×2 (09:54→21:52)
[2019-02-26] MEDS: VIT B CMPLX 3/FA/VIT C/BIOTIN 1 TAB TABLET GT SCH (09:54)
[2019-02-26] MEDS: OMEPRAZOLE 20 MG CAPSULE.DR GT SCH (09:54)
[2019-02-26] MEDS: METOPROLOL TARTRATE 50 MG TABLET GT SCH ×2 (09:54→21:21)
[2019-02-26] MEDS: NEUTRA PHOS 1 POWD.PACKET GT SCH (09:54)
[2019-02-26] MEDS: BASAGLAR KWIKPEN SQ SCH ×2 (09:55→21:22)
[2019-02-26] MEDS: Z GUARD REMEDY 4 OZ OINT TP SCH ×2 (10:30→22:30)
[2019-02-26] MEDS: HYDROCORTISONE 1% CREAM 30 GM TUBE TP SCH ×2 (10:30→22:30)
[2019-02-26] MEDS: POVIDONE-IODINE OINT 28.4 GM TUBE TP SCH ×4 (10:30→22:30)
[2019-02-26] MEDS: HYDROGEN PEROXIDE 480 ML BOTTLE TP SCH ×2 (10:30→22:30)
[2019-02-26] MEDS: DAKINS QUARTER STRENGTH (0.125%) 480 ML BOTTLE TOP SCH ×2 (10:30→22:30)
--- NOTE | 2019-02-26 10:35 | NUR ---
Seen and examined by Dr. Dia with new orders and carried out. Okay to d/c Neutraphos and Zinc per dialysis recommendation.
[2019-02-26 12:00] VITALS: BP 140/78
[2019-02-26 17:45] VITALS: BP 137/80
[2019-02-26] MEDS: FENOFIBRATE NANOCRYS (145 MG) 145 MG TABLET GT SCH (21:22)
[2019-02-26 21:48] VITALS: BP 140/90
[2019-02-27] VITALS (8 sets, daily range): BP systolic 128–180; BP diastolic 71–99
--- NOTE | 2019-02-27 04:04 | NUR ---
RT NOTE: RECEIVED PT ON ORDERED NOTED VENT SETTINGS. NO RESPIRATORY DISTRESS NOTED. TRACH CHECKED SECURE AND PATENT. SXD AND LAVAGED PT Q ROUND AND NEEDED. SPARE TRACH AND AND AMBU BAG @ BEDSIDE. ALARMS CHECKED. WILL CONTINUE TO MONITOR. Addendum: 02/27/19 at 0405 by ALEX PRAJAPATI RT Amended: Links added.
[2019-02-27] MEDS: METOCLOPRAMIDE HCL 10 MG TABLET GT SCH ×4 (05:52→23:49)
[2019-02-27] MEDS: POLYVINYL ALCOHOL 15 ML BOTTLE EACHEYE SCH ×4 (05:52→23:49)
[2019-02-27] MEDS: BLOOD SUGAR DIAGNOSTIC 1 EACH STRIP IN SCH ×4 (05:52→23:49)
[2019-02-27] MEDS: INSULIN ASPART/LISPRO 100 UNIT/ML CARTRIDGE SQ PRN ×4 (05:53→23:50)
--- NOTE | 2019-02-27 08:20 | NUR ---
RT Pt received trached on the vent with noted settings. Pt is awake but unable to follow commands. Vent alarms are set and audible with BVM by bedside. FILTER PLANT OPERATOR cuff pressure noted. Vent is plugged into red outlet. Sx'd small thick pale yellow secretions. No respiratory distress noted at this time. Addendum: 02/27/19 at 0820 by LESLY WARREN RT Amended: Links added.
[2019-02-27] MEDS: HYDROCORTISONE 1% CREAM 30 GM TUBE TP SCH ×2 (09:00→21:20)
[2019-02-27] MEDS: Z GUARD REMEDY 4 OZ OINT TP SCH ×2 (09:00→21:20)
[2019-02-27] MEDS: DAKINS QUARTER STRENGTH (0.125%) 480 ML BOTTLE TOP SCH ×2 (09:00→21:20)
[2019-02-27] MEDS: HYDROGEN PEROXIDE 480 ML BOTTLE TP SCH ×2 (09:00→21:20)
[2019-02-27] MEDS: POVIDONE-IODINE OINT 28.4 GM TUBE TP SCH ×4 (09:00→21:20)
[2019-02-27] MEDS: SUCRALFATE 1 G/10 ML UDC GT SCH (09:32)
[2019-02-27] MEDS: LACTOBACILLUS RHAMNOSUS GG 1 EACH CAP.SPRINK GT SCH ×2 (09:32→16:53)
[2019-02-27] MEDS: METOPROLOL TARTRATE 50 MG TABLET GT SCH ×2 (09:32→21:19)
[2019-02-27] MEDS: VIT B CMPLX 3/FA/VIT C/BIOTIN 1 TAB TABLET GT SCH (09:32)
[2019-02-27] MEDS: HYDROCODONE/APAP 5/325MG 1 EACH TABLET GT SCH ×2 (09:33→21:19)
[2019-02-27] MEDS: ASCORBIC ACID 500 MG TABLET GT SCH (09:33)
[2019-02-27] MEDS: PROSOURCE / PROSTAT (PYXIS) 30 ML UDC GT SCH ×3 (09:33→16:53)
[2019-02-27] MEDS: OMEPRAZOLE 20 MG CAPSULE.DR GT SCH (09:33)
[2019-02-27] MEDS: BASAGLAR KWIKPEN SQ SCH ×2 (09:34→21:19)
[2019-02-27] MEDS: CLONIDINE HCL 0.1 MG TABLET GT PRN (16:53)
[2019-02-27] MEDS: FENOFIBRATE NANOCRYS (145 MG) 145 MG TABLET GT SCH (21:20)
[2019-02-28] VITALS (7 sets, daily range): BP systolic 101–162; BP diastolic 52–79
[2019-02-28] MEDS: METOCLOPRAMIDE HCL 10 MG TABLET GT SCH ×3 (05:40→17:55)
[2019-02-28] MEDS: POLYVINYL ALCOHOL 15 ML BOTTLE EACHEYE SCH ×3 (05:40→17:55)
[2019-02-28] MEDS: BLOOD SUGAR DIAGNOSTIC 1 EACH STRIP IN SCH ×3 (05:40→17:55)
[2019-02-28] MEDS: INSULIN ASPART/LISPRO 100 UNIT/ML CARTRIDGE SQ PRN ×3 (05:41→17:56)
[2019-02-28] MEDS: SUCRALFATE 1 G/10 ML UDC GT SCH (08:28)
[2019-02-28] MEDS: HYDROCODONE/APAP 5/325MG 1 EACH TABLET GT SCH ×2 (08:28→21:16)
[2019-02-28] MEDS: VIT B CMPLX 3/FA/VIT C/BIOTIN 1 TAB TABLET GT SCH (08:28)
[2019-02-28] MEDS: OMEPRAZOLE 20 MG CAPSULE.DR GT SCH (08:28)
[2019-02-28] MEDS: ASCORBIC ACID 500 MG TABLET GT SCH (08:28)
[2019-02-28] MEDS: PROSOURCE / PROSTAT (PYXIS) 30 ML UDC GT SCH ×3 (08:28→17:55)
[2019-02-28] MEDS: LACTOBACILLUS RHAMNOSUS GG 1 EACH CAP.SPRINK GT SCH ×2 (08:28→17:54)
[2019-02-28] MEDS: POVIDONE-IODINE OINT 28.4 GM TUBE TP SCH ×4 (08:30→21:16)
[2019-02-28] MEDS: Z GUARD REMEDY 4 OZ OINT TP SCH ×2 (08:30→21:16)
[2019-02-28] MEDS: HYDROCORTISONE 1% CREAM 30 GM TUBE TP SCH ×2 (08:30→21:16)
[2019-02-28] MEDS: DAKINS QUARTER STRENGTH (0.125%) 480 ML BOTTLE TOP SCH (08:30)
[2019-02-28] MEDS: HYDROGEN PEROXIDE 480 ML BOTTLE TP SCH ×2 (08:30→21:16)
[2019-02-28] MEDS: METOPROLOL TARTRATE 50 MG TABLET GT SCH ×2 (08:53→21:00)
[2019-02-28] MEDS: BASAGLAR KWIKPEN SQ SCH (08:55)
--- NOTE | 2019-02-28 09:00 | NUR ---
Metoprolol via GT held, B/P 141/70, HR 108, Patient is schedule to have dialysis today in the afternoon. Patient not in distress, closely monitored.
--- NOTE | 2019-02-28 10:56 | NUR ---
INTERDISCIPLINARY PLAN OF CARE CONFERENCE was held today. Resident's and daughters attended the mtg over conference call said that the conditions of skin had worsened since pts was transferred to current room. Charge nurse Lilly asked family if they have discussed the amputation with surgeon. said that the last time they spoke with the doctor he suggested it was better to wait until wound in pt's back is healed. Lilly will follow up with about the possible amputation. Dr. Rocha and the interdisciplinary team discussed the current plan of care in detail. Current orders as well as treatments and medications were reviewed.
--- NOTE | 2019-02-28 16:41 | NUR ---
Notified Dr Dia that pt's blood sugar levels have been high, yesterday ranging from 201-370. Pt currently on Basaglar 13 units SC Q 12.
--- NOTE | 2019-02-28 17:31 | NUR ---
Dr Dia ordered to increase Basaglnico Bynum from 13 to 15 units SC q 12 hours due to increased blood sugar levels. Addendum: 02/28/19 at 1732 by GUILLERMO BEARD RN Notified pt's daughter.
--- NOTE | 2019-02-28 18:15 | NUR ---
Requested Dr Dhruv Chase to see pt's sacral wound. Informed him that sacral wound does not seem to respond well to treatment of Dakin's solution.
[2019-02-28] MEDS ORDERED: HYDROGEL DRESSING 90 GM TUBE TP SCH (21:00)
[2019-02-28] MEDS ORDERED: INSULIN GLARGINE SQ SCH (21:00)
[2019-02-28] MEDS ORDERED: DAKINS QUARTER STRENGTH (0.125%) 480 ML BOTTLE TOP SCH (21:00)
[2019-02-28] MEDS: FENOFIBRATE NANOCRYS (145 MG) 145 MG TABLET GT SCH (21:16)
[2019-02-28] MEDS: INSULIN GLARGINE SQ SCH (21:16)
[2019-03-01] VITALS (7 sets, daily range): BP systolic 91–153; BP diastolic 31–65
[2019-03-01] MEDS: BLOOD SUGAR DIAGNOSTIC 1 EACH STRIP IN SCH ×4 (00:40→18:11)
[2019-03-01] MEDS: POLYVINYL ALCOHOL 15 ML BOTTLE EACHEYE SCH ×4 (00:40→18:17)
[2019-03-01] MEDS: METOCLOPRAMIDE HCL 10 MG TABLET GT SCH ×4 (00:40→18:17)
[2019-03-01] MEDS: INSULIN ASPART/LISPRO 100 UNIT/ML CARTRIDGE SQ PRN ×4 (00:41→18:12)
--- NOTE | 2019-03-01 08:00 | NUR ---
Notified Dr Dia that pt's blood sugar was 402 last night at midnight, 257 this morning. Pt's Basaglar was increased from 13 units to 15 units yesterday.
--- NOTE | 2019-03-01 08:10 | NUR ---
Resident noted with a temperature of 99.7, cooling measure initiated. Charge nurse made aware. will monitor.
--- NOTE | 2019-03-01 08:37 | NUR ---
Late entry for 02/28/191934 Dr Dhruv Chase said he saw pt's sacral wound today and that it looks much better than before. He said it used to be black and now it is red which is good. He ordered to DC treatment of 09/24 Dakin's solution and change treatment to Hydrogel and saline moist gauze packing. Notified pt's daughter.
[2019-03-01] MEDS: METOPROLOL TARTRATE 50 MG TABLET GT SCH (09:00)
[2019-03-01] MEDS: HYDROCODONE/APAP 5/325MG 1 EACH TABLET GT SCH (09:16)
[2019-03-01] MEDS: ASCORBIC ACID 500 MG TABLET GT SCH (09:19)
[2019-03-01] MEDS: SUCRALFATE 1 G/10 ML UDC GT SCH (09:19)
[2019-03-01] MEDS: PROSOURCE / PROSTAT (PYXIS) 30 ML UDC GT SCH ×3 (09:19→17:00)
[2019-03-01] MEDS: OMEPRAZOLE 20 MG CAPSULE.DR GT SCH (09:19)
[2019-03-01] MEDS: LACTOBACILLUS RHAMNOSUS GG 1 EACH CAP.SPRINK GT SCH ×2 (09:19→17:00)
[2019-03-01] MEDS: VIT B CMPLX 3/FA/VIT C/BIOTIN 1 TAB TABLET GT SCH (09:19)
[2019-03-01] MEDS: INSULIN GLARGINE SQ SCH (09:28)
[2019-03-01] MEDS: HYDROCORTISONE 1% CREAM 30 GM TUBE TP SCH (09:50)
[2019-03-01] MEDS: HYDROGEL DRESSING 90 GM TUBE TP SCH (09:50)
[2019-03-01] MEDS: HYDROGEN PEROXIDE 480 ML BOTTLE TP SCH (09:50)
[2019-03-01] MEDS: Z GUARD REMEDY 4 OZ OINT TP SCH (09:50)
[2019-03-01] MEDS: POVIDONE-IODINE OINT 28.4 GM TUBE TP SCH ×2 (09:50)
--- NOTE | 2019-03-01 12:10 | NUR ---
Notified Dr Dia that pt's blood sugar 421 and upon recheck was 416. Pt given 11 units of Admelog. Also notified Dr Dia that pt has a temp of 100.7 F. Cooling measures provided to pt (Sheet covering pt was removed, fan turned on for pt, ice pack provided).
--- NOTE | 2019-03-01 12:59 | NUR ---
Dr Dia ordered to do CBC, BMP, blood cultures x 2, UA and urine culture.
--- NOTE | 2019-03-01 14:00 | NUR ---
Dr Dia said to monitor blood sugar levels for now and he will review medications. Basaglar insulin was just increased yesterday.
[2019-03-01 14:51] LABS: BASOPHILS # (AUTO) 0.1 /CMM (0.0-0.2); BASOPHILS % (AUTO) 0.7 % (0.0-2.0); EOSINOPHILS % (AUTO) 3.4 % (0.0-6.0); HEMATOCRIT 42 % (39-51); HEMOGLOBIN 13.3 g/dL (13.5-17.5); LYMPHOCYTES # (AUTO) 2.8 /CMM (0.8-4.8); LYMPHOCYTES % (AUTO) 15.8 % (20.0-44.0); MEAN CORPUSCULAR HGB CONC 31 g/dl (31.0-36.0); MEAN CORPUSCULAR VOLUME 95 fL (80-96); MONOCYTES # (AUTO) 1.4 /CMM (0.1-1.30); NEUTROPHILS # (AUTO) 12.6 /CMM (1.8-8.9); NEUTROPHILS % (AUTO) 72.1 % (43.0-81.0); PLATELET COUNT (AUTO) 590 /CMM (150-450); RED BLOOD CELL COUNT(AUTO) 4.47 MIL/uL (4.5-6.0); WHITE BLOOD COUNT (AUTO) 17.4 K/uL (4.3-11.0)
[2019-03-01 14:58] LABS: CALCIUM, SERUM 10.2 mg/dL (8.5-10.1); CREATININE 4.6 mg/dL (0.6-1.3); POTASSIUM 3.9 mmol/L (3.5-5.1)
--- NOTE | 2019-03-01 15:20 | NUR ---
Relayed lab results to Dr Dia. Also relayed latest blood sugar 411.
--- NOTE | 2019-03-01 15:40 | NUR ---
Dr Dia ordered Vancomyin IV pharmacy to dose, Novolin 6 units SC BID, 1/2 NS at 50 mL/hr IV, Meropenem 500 mg IV q 12 hours, Basaglar 16 units SC q 12 hours, and CXR. Notified pt's daughter.
[2019-03-01] MEDS ORDERED: INSULIN NPH, HUMAN ISOPHANE 100 UNIT/ML VIAL SQ SCH (17:00)
--- NOTE | 2019-03-01 17:04 | NUR ---
Received order to give Vancomycin 1 gm IV at 1800 today as loading dose, check Vancomycin trough tomorrow before hemodialysis.
[2019-03-01 17:05] LABS: APPEARANCE,URINE TURBID (CLEAR)
[2019-03-01 17:06] LABS: BLOOD, URINE 3+ Ery/uL (NEGATIVE); COLOR,URINE Light yellow (YELLOW); PROTEIN,URINE 4+ mg/dl (NEGATIVE); UGLUCOSE 100 MG/DL mg/dL (NEGATIVE)
[2019-03-01 17:07] LABS: BILIRUBIN,URINE SMALL (NEGATIVE); KETONES,URINE TRACE (NEGATIVE); LEUKOCYTE ESTERASE ,URINE 3+ (NEGATIVE); NITRITE, URINE NEGATIVE (NEGATIVE); UROBILINOGEN,URINE 0.2 EU/dL (0.2)
[2019-03-01 17:15] LABS: RBC,URINE 21-50 /HPF (0-2); WBC,URINE TOO NUMEROUS TO COUN /HPF (0-3)
[2019-03-01 17:16] LABS: BACTERIA,URINE Moderate /HPF (None Seen); SQUAMOUS EPITHELIAL CELL,UR Few /HPF (None Seen)
[2019-03-01] MEDS ORDERED: VANCOMYCIN 1 GM in IV D5W 250ml IV ONE (18:00)
--- NOTE | 2019-03-01 18:50 | NUR ---
Notified Dr Dia that pt's blood sugar 490 and 493. Pt was given 11 units of Admelog per sliding scale. Dr Dia ordered to transfer pt to ER. Notified pt's daughter Christine. Spoke with nursing traffic signal supervisor maintenance Avni. She said ER is full right now and she will call back.
[2019-03-01] MEDS ORDERED: MEROPENEM 500 MG in IV NS 0.9% 50 ML IV SCH (19:00)
[2019-03-01] MEDS ORDERED: IV 1/2NS 1000 ML 1,000 ML IV PRN (19:00)
--- NOTE | 2019-03-01 19:00 | NUR ---
Nursing pricing supervisor Avni called and said there is no available bed in the ER right now. She said she will call again. Notified Dr Dia. Addendum: 03/01/19 at 1901 by GUILLERMO BEARD RN Informed Avni and Dr Dia of blood sugar 503.
--- NOTE | 2019-03-01 19:12 | NUR ---
Dr Dia said he will place orders and have admitting doctor see pt. He said pt needs to be on an insulin drip in ICU. Spoke with nursing sewing supervisor Priscila. She said that as long as a doctor sees the pt here, then pt can be directly admitted to ICU. Dr Dia said he will call the admitting doctor.
--- NOTE | 2019-03-01 20:40 | NUR ---
RN NOTES Called on-call to follow up on pt's transfer. Will await for call back.
--- NOTE | 2019-03-01 20:50 | NUR ---
RN NOTES Seen and examined by Casie Haile with order to transfer to ICU. Report given to ICU nurse and pt transferred to ICU. Family at bedside.
[2019-03-01] MEDS ORDERED: BASAGLAR U SQ SCH (21:00)
[2019-03-01] MEDS ORDERED: MISCELLANEOUS MED 1 EA EA SQ SCH (21:00)
[2019-03-02] MEDS ORDERED: VANCOMYCIN POST DIALYSIS 500MG IV PRN ×2 (18:00)
[2019-03-07] MEDS: METOCLOPRAMIDE HCL 10 MG TABLET GT SCH
[2019-03-07] MEDS ORDERED: COLI150V12 IJ (10:57)
--- NOTE | 2019-03-07 16:30 | NUR ---
Pt readmitted from [facility]. Pt was sent to acute hospital for hyperglycemia and sepsis. Pt on mechanical vent with setting of AC 18 VT 500 FiO2 40% PEEP +5, trach tube Shiley #8. Started GT feeding of Nepro at 40 mL/hr. Body assessment done. Verified orders with Dr Dia. Cleaned and made comfortable in bed. HOB elevated to prevent aspiration. Notified pt's daughter that he is back in Subacute.
--- NOTE | 2019-03-07 18:34 | NUR ---
Pt was dialyzed yesterday but not today. Spoke with Mandy of [facility] and scheduled pt's hemodialysis with her. Pt's chair time tomorrow will be at 2 pm. Called [facility] and scheduled transportation with [id number] , arranged transportation with [place], confirmation #[id number]. He said pt will be picked up at 1315.
[2019-03-07] MEDS ORDERED: NEPRO 1,000 ML BOTTLE GT PRN (18:42)
[2019-03-07 20:00] VITALS: BP_SYST 116; BP_DIAS 65; BP_DIAS 71
[2019-03-07] MEDS: COLISTIMETHATE SODIUM 100 MG in IV NS 0.9% 50 ML IV SCH (20:00)
[2019-03-07] MEDS: METOPROLOL TARTRATE 50 MG TABLET GT SCH (21:00)
[2019-03-07] MEDS: METRONIDAZOLE 500 MG TABLET GT SCH (21:00)
[2019-03-07] MEDS: HYDROCODONE/APAP 5/325MG 1 EACH TABLET GT SCH (21:00)
[2019-03-07] MEDS: BASAGLAR U SQ SCH (21:00)
[2019-03-07] MEDS: FENOFIBRATE NANOCRYS (145 MG) 145 MG TABLET GT SCH (22:00)
[2019-03-07] MEDS: POLYVINYL ALCOHOL 15 ML BOTTLE EACHEYE SCH (23:43)
[2019-03-07] MEDS: INSULIN ASPART/LISPRO 100 UNIT/ML CARTRIDGE SQ PRN (23:43)
[2019-03-07] MEDS: BLOOD SUGAR DIAGNOSTIC 1 EACH STRIP IN SCH (23:43)
[2019-03-08] VITALS (7 sets, daily range): BP systolic 104–118; BP diastolic 49–72
[2019-03-08] MEDS: ACETAMINOPHEN LIQUID 325 MG/10.1 ML UDC GT PRN (03:40)
[2019-03-08] MEDS: METOCLOPRAMIDE HCL 10 MG TABLET GT SCH ×4 (05:00→23:53)
[2019-03-08] MEDS: POLYVINYL ALCOHOL 15 ML BOTTLE EACHEYE SCH ×4 (05:07→23:53)
[2019-03-08] MEDS: BLOOD SUGAR DIAGNOSTIC 1 EACH STRIP IN SCH ×4 (05:07→23:53)
[2019-03-08] MEDS: INSULIN ASPART/LISPRO 100 UNIT/ML CARTRIDGE SQ PRN ×3 (05:37→23:54)
--- NOTE | 2019-03-08 09:37 | NUR ---
Seen and examined by Dr. Rocha, crew person. NNO given at this time.
[2019-03-08] MEDS: SULFAMETH/TRIMETH 800/160 MG 1 UDTAB TABLET GT SCH ×2 (09:42→21:33)
[2019-03-08] MEDS: OMEPRAZOLE 20 MG CAPSULE.DR GT SCH (09:45)
[2019-03-08] MEDS: PROSOURCE / PROSTAT (PYXIS) 30 ML UDC GT SCH (09:50)
[2019-03-08] MEDS: METRONIDAZOLE 500 MG TABLET GT SCH ×3 (09:50→21:33)
[2019-03-08] MEDS: LACTOBACILLUS RHAMNOSUS GG 1 EACH CAP.SPRINK GT SCH ×2 (09:50→17:00)
[2019-03-08] MEDS: SUCRALFATE 1 G/10 ML UDC GT SCH (09:50)
[2019-03-08] MEDS: VIT B CMPLX 3/FA/VIT C/BIOTIN 1 TAB TABLET GT SCH (09:51)
[2019-03-08] MEDS: ZINC SULFATE 220 MG CAPSULE GT SCH (09:51)
[2019-03-08] MEDS: ASCORBIC ACID 500 MG TABLET GT SCH (09:51)
[2019-03-08] MEDS: METOPROLOL TARTRATE 50 MG TABLET GT SCH ×2 (09:51→21:34)
[2019-03-08] MEDS: HYDROCODONE/APAP 5/325MG 1 EACH TABLET GT SCH ×2 (09:51→21:34)
[2019-03-08] MEDS: BASAGLAR U SQ SCH ×2 (09:52→21:48)
[2019-03-08] MEDS: HYDROGEN PEROXIDE 480 ML BOTTLE TP SCH ×2 (10:00→21:59)
[2019-03-08] MEDS: HYDROCORTISONE 1% CREAM 30 GM TUBE TP SCH ×2 (11:00→21:59)
[2019-03-08] MEDS: BACI/NEOM/POLY B OINT PKT 1 UDPKT PACKET TP SCH ×2 (11:00→21:59)
[2019-03-08] MEDS ORDERED: BISACODYL SUPP (10 MG) 10 MG/SUPP.RECT SUPP.RECT RC PRN (13:16)
--- NOTE | 2019-03-08 13:48 | NUR ---
Spoke with Ryan RN and Nitza at [facility] informing them that there is a delay in transportation pick up driver and will be here to pick up driver patient at 3 pm. According to Nitza, patient's dialysis will be cut short if he is late from his schedule, however patient will have his regular schedule starting tomorrow, dialysis chair time at 1300. drilling engineering manager spoke with Jose Luis Holley from [facility] to confirm transportation for today.
--- NOTE | 2019-03-08 14:10 | NUR ---
Received a call from Randy from [facility] ambulance confirming parts picker for today at 3pm and ask for patient's ventilator setting. According to Randy, ambulance staff will be in at 3 PM.
[2019-03-08] MEDS ORDERED: NA PHOS,M-B/NA PHOS,DI-BA 1 EA ENEMA RC PRN (15:04)
--- NOTE | 2019-03-08 15:22 | NUR ---
Notified [facility], spoke with Nitza regarding delay in picking up resident. There are two ambulance company that showed up, [employer] and [employer] ambulance. After ambulance crew clarified with their dispatch and check with patient's insurance, [facility] took the patient, on ventilator with current vent AC 18, TV 500, Fi02 40%, Peep 5, well tolerated. Resident in stable condition, not in acute distress, accompanied by their own RT.
--- NOTE | 2019-03-08 18:32 | NUR ---
Clarified with LOPEZ Parker if she will continue IV Vancomycin as patient was on it before he was transferred to acute hospital. She said to continue Vancomycin for osteomyelitis x 6 weeks. Order faxed to [facility] and [facility] pharmacy. Informed resident's daughter Christine that IV Vancomycin was reordered x 6 weeks, that there was a delay in picking up patient for his dialysis due to transportation issues. She said she will call the insurance company to follow-up. Asked whether she was able to speak with Dr. Madsen pertaining to patient's surgery, she said no. She mentioned that based on her conversation with Dr. Madsen in the past, he prefers to wait until sacral wound heals. Informed Christine that this nurse will contact Dr. Madsen to explain that patient's sacral wound will take a long time to heal because of its size and extent of damage to the periwound. Patient has multiple comorbidities such as DM, ESRD, HTN, PVD, Anemia, Chronic respiratory failure which slows wound healing.
[2019-03-08] MEDS: NEPRO 1,000 ML BOTTLE GT PRN (19:30)
[2019-03-08] MEDS: COLISTIMETHATE SODIUM 100 MG in IV NS 0.9% 50 ML IV SCH (20:00)
[2019-03-08] MEDS: FENOFIBRATE NANOCRYS (145 MG) 145 MG TABLET GT SCH (21:35)
[2019-03-08] MEDS: Z GUARD REMEDY 4 OZ OINT TP SCH (21:59)
[2019-03-08] MEDS: POVIDONE-IODINE OINT 28.4 GM TUBE TP SCH ×2 (21:59)
[2019-03-09] VITALS (8 sets, daily range): BP systolic 95–134; BP diastolic 33–91
[2019-03-09] MEDS: POLYVINYL ALCOHOL 15 ML BOTTLE EACHEYE SCH ×3 (06:25→18:39)
[2019-03-09] MEDS: METOCLOPRAMIDE HCL 10 MG TABLET GT SCH ×3 (06:25→17:24)
[2019-03-09] MEDS: BLOOD SUGAR DIAGNOSTIC 1 EACH STRIP IN SCH ×3 (06:33→17:24)
[2019-03-09] MEDS: INSULIN ASPART/LISPRO 100 UNIT/ML CARTRIDGE SQ PRN ×3 (06:34→17:25)
--- NOTE | 2019-03-09 08:33 | NUR ---
Called [facility] and confirmed with Rico that transportation is arranged today for dialysis, pick pulling machine tender time 12:30 PM.
[2019-03-09] MEDS: BASAGLAR U SQ SCH ×2 (09:00→21:56)
[2019-03-09] MEDS: METOPROLOL TARTRATE 50 MG TABLET GT SCH ×2 (09:00→21:12)
[2019-03-09] MEDS: SUCRALFATE 1 G/10 ML UDC GT SCH (09:40)
[2019-03-09] MEDS: SULFAMETH/TRIMETH 800/160 MG 1 UDTAB TABLET GT SCH ×2 (09:40→21:11)
[2019-03-09] MEDS: LACTOBACILLUS RHAMNOSUS GG 1 EACH CAP.SPRINK GT SCH ×2 (09:40→17:00)
[2019-03-09] MEDS: METRONIDAZOLE 500 MG TABLET GT SCH ×3 (09:40→20:57)
[2019-03-09] MEDS: ASCORBIC ACID 500 MG TABLET GT SCH (09:41)
[2019-03-09] MEDS: OMEPRAZOLE 20 MG CAPSULE.DR GT SCH (09:41)
[2019-03-09] MEDS: ZINC SULFATE 220 MG CAPSULE GT SCH (09:41)
[2019-03-09] MEDS: PROSOURCE / PROSTAT (PYXIS) 30 ML UDC GT SCH (09:41)
[2019-03-09] MEDS: VIT B CMPLX 3/FA/VIT C/BIOTIN 1 TAB TABLET GT SCH (09:41)
[2019-03-09] MEDS: HYDROCODONE/APAP 5/325MG 1 EACH TABLET GT SCH ×2 (09:47→21:12)
[2019-03-09] MEDS: HYDROGEL DRESSING 90 GM TUBE TP SCH (10:47)
[2019-03-09] MEDS: BACI/NEOM/POLY B OINT PKT 1 UDPKT PACKET TP SCH ×2 (10:47→21:57)
[2019-03-09] MEDS: POVIDONE-IODINE OINT 28.4 GM TUBE TP SCH ×4 (10:47→21:56)
[2019-03-09] MEDS: Z GUARD REMEDY 4 OZ OINT TP SCH ×2 (10:47→21:57)
[2019-03-09] MEDS: HYDROCORTISONE 1% CREAM 30 GM TUBE TP SCH ×2 (10:47→21:56)
[2019-03-09] MEDS: HYDROGEN PEROXIDE 480 ML BOTTLE TP SCH ×2 (10:47→22:00)
--- NOTE | 2019-03-09 13:00 | NUR ---
Eyes open. Trach with vent working at prescribed settings. RT upper chest with hemodialysis catheter with clean dressing. GT in place patent no residual. Tolerated GT formula well. Total care provided. Wound care provided as ordered. Rectal tube noted dislodged. RN tubing supervisor notified. Reinserted. Noted rectal tube dislodged again RN tubing supervisor aware. Patient went for Hemodialysis as ordered report given.
--- NOTE | 2019-03-09 13:30 | NUR ---
Dr. Dia came to do his rounds but patient is still at the dialysis center. Informed MD that patient's skin looks very dry with generalized rashes are all over the body with Hydrocortisone cream as treatment order. It was also mentioned that patient has rectal tube but he cannot keep it, ii gets easily dislodged. According to Dr. Dia he may come back to see the patient after dialysis. Will inform MD when patient returns from dialysis.
--- NOTE | 2019-03-09 14:30 | NUR ---
Placed a call to Dr. Madsen's office. Spoke with Gisselle requesting to talk to Dr. Madsen to find out if he is planning to do the patient's surgery sooner (Right AKA). Per Gisselle, Dr. Madsen is not in the office but will relay the message. Based on what this nurse gathered from the family, Dr. Madsen wants to wait until sacral wound heels. However due to the size and extent of the sacral wound with its underlying condition, the healing process is compromised. Awaiting for MD to call back and will relay above information to the physician as patient's R foot gangrenous toes and R heel wound are increasing in size.
--- NOTE | 2019-03-09 16:50 | NUR ---
Patient returned from Hemodialysis as ordered with two EMT's and one RT. Eyes open. Trach with vent working at prescribed settings. GT in place patent no residual tolerated GT formula well. RT upper chest with Hemodialysis catheter with clean dressing. Total care provided. Kept clean and comfortable. Kept clean and comfortable. All needs met and attended. HOB elevated. Aspiration precautions maintained. All needs met and attended.
--- NOTE | 2019-03-09 17:15 | NUR ---
Notified Dr. Dia that patient is back from his dialysis.
[2019-03-09] MEDS: COLISTIMETHATE SODIUM 100 MG in IV NS 0.9% 50 ML IV SCH (20:00)
[2019-03-09] MEDS: FENOFIBRATE NANOCRYS (145 MG) 145 MG TABLET GT SCH (21:12)
[2019-03-09] MEDS: VANCOMYCIN HCL 0.75 GM in IV D5W 250 ML IV SCH (22:44)
--- NOTE | 2019-03-09 22:45 | NUR ---
VANCOMYCIN 75OMG GIVEN ,DIALYSIS DONE TODAY DURING AFTERNOON.
[2019-03-10] VITALS (8 sets, daily range): BP systolic 126–145; BP diastolic 51–63
[2019-03-10] MEDS: POLYVINYL ALCOHOL 15 ML BOTTLE EACHEYE SCH ×5 (00:13→23:59)
[2019-03-10] MEDS: METOCLOPRAMIDE HCL 10 MG TABLET GT SCH ×5 (00:13→23:59)
[2019-03-10] MEDS: BLOOD SUGAR DIAGNOSTIC 1 EACH STRIP IN SCH ×5 (00:13→23:59)
[2019-03-10] MEDS: INSULIN ASPART/LISPRO 100 UNIT/ML CARTRIDGE SQ PRN ×4 (00:15→18:00)
[2019-03-10] MEDS: METRONIDAZOLE 500 MG TABLET GT SCH ×3 (06:04→20:00)
[2019-03-10] MEDS: NEPRO 1,000 ML BOTTLE GT PRN (06:12)
[2019-03-10] MEDS: SULFAMETH/TRIMETH 800/160 MG 1 UDTAB TABLET GT SCH ×2 (09:15→21:49)
[2019-03-10] MEDS: OMEPRAZOLE 20 MG CAPSULE.DR GT SCH (09:16)
[2019-03-10] MEDS: METOPROLOL TARTRATE 50 MG TABLET GT SCH ×2 (09:16→21:50)
[2019-03-10] MEDS: ASCORBIC ACID 500 MG TABLET GT SCH (09:17)
[2019-03-10] MEDS: ZINC SULFATE 220 MG CAPSULE GT SCH (09:17)
[2019-03-10] MEDS: VIT B CMPLX 3/FA/VIT C/BIOTIN 1 TAB TABLET GT SCH (09:18)
[2019-03-10] MEDS: PROSOURCE / PROSTAT (PYXIS) 30 ML UDC GT SCH (09:18)
[2019-03-10] MEDS: SUCRALFATE 1 G/10 ML UDC GT SCH (09:18)
[2019-03-10] MEDS: HYDROCORTISONE 1% CREAM 30 GM TUBE TP SCH ×2 (09:19→21:51)
[2019-03-10] MEDS: KETOCONAZOLE SHAMPOO 120 ML BOTTLE TP SCH (09:19)
[2019-03-10] MEDS: BACI/NEOM/POLY B OINT PKT 1 UDPKT PACKET TP SCH ×4 (09:19→21:52)
[2019-03-10] MEDS: POVIDONE-IODINE OINT 28.4 GM TUBE TP SCH ×4 (09:19→21:51)
[2019-03-10] MEDS: HYDROGEL DRESSING 90 GM TUBE TP SCH (09:19)
[2019-03-10] MEDS: Z GUARD REMEDY 4 OZ OINT TP SCH ×2 (09:19→21:52)
[2019-03-10] MEDS: LACTOBACILLUS RHAMNOSUS GG 1 EACH CAP.SPRINK GT SCH ×2 (09:22→17:54)
[2019-03-10] MEDS: BASAGLAR U SQ SCH ×2 (09:36→21:51)
[2019-03-10] MEDS: HYDROGEN PEROXIDE 480 ML BOTTLE TP SCH ×2 (09:51→21:51)
[2019-03-10] MEDS: HYDROCODONE/APAP 5/325MG 1 EACH TABLET GT SCH ×2 (11:00→21:50)
[2019-03-10] MEDS: NYSTATIN/TRIAMCIN CREAM 15 GM TUBE TP SCH ×2 (11:30→21:51)
--- NOTE | 2019-03-10 19:30 | NUR ---
Seen and examined by Joan yeboah.
[2019-03-10] MEDS: COLISTIMETHATE SODIUM 100 MG in IV NS 0.9% 50 ML IV SCH (20:00)
[2019-03-10] MEDS: FENOFIBRATE NANOCRYS (145 MG) 145 MG TABLET GT SCH (21:52)
[2019-03-11] VITALS (7 sets, daily range): BP systolic 100–136; BP diastolic 46–79
[2019-03-11] MEDS: INSULIN ASPART/LISPRO 100 UNIT/ML CARTRIDGE SQ PRN ×2 (00:03→05:57)
[2019-03-11] MEDS: METRONIDAZOLE 500 MG TABLET GT SCH ×3 (05:23→20:19)
[2019-03-11] MEDS: METOCLOPRAMIDE HCL 10 MG TABLET GT SCH ×3 (05:23→17:16)
[2019-03-11] MEDS: POLYVINYL ALCOHOL 15 ML BOTTLE EACHEYE SCH ×3 (05:24→17:14)
[2019-03-11] MEDS: BLOOD SUGAR DIAGNOSTIC 1 EACH STRIP IN SCH ×3 (05:55→17:48)
[2019-03-11] MEDS: PROSOURCE / PROSTAT (PYXIS) 30 ML UDC GT SCH (09:00)
[2019-03-11] MEDS: HYDROCORTISONE 1% CREAM 30 GM TUBE TP SCH ×2 (09:00→21:35)
[2019-03-11] MEDS: LACTOBACILLUS RHAMNOSUS GG 1 EACH CAP.SPRINK GT SCH ×2 (09:00→17:14)
[2019-03-11] MEDS: HYDROCODONE/APAP 5/325MG 1 EACH TABLET GT SCH ×2 (09:00→21:04)
[2019-03-11] MEDS: BASAGLAR U SQ SCH ×2 (09:00→21:51)
[2019-03-11] MEDS: OMEPRAZOLE 20 MG CAPSULE.DR GT SCH (09:00)
[2019-03-11] MEDS: SULFAMETH/TRIMETH 800/160 MG 1 UDTAB TABLET GT SCH (09:00)
[2019-03-11] MEDS: METOPROLOL TARTRATE 50 MG TABLET GT SCH ×2 (09:00→21:00)
[2019-03-11] MEDS: BACI/NEOM/POLY B OINT PKT 1 UDPKT PACKET TP SCH ×4 (09:00→21:35)
[2019-03-11] MEDS: ZINC SULFATE 220 MG CAPSULE GT SCH (09:00)
[2019-03-11] MEDS: NYSTATIN/TRIAMCIN CREAM 15 GM TUBE TP SCH ×2 (09:00→21:35)
[2019-03-11] MEDS: VIT B CMPLX 3/FA/VIT C/BIOTIN 1 TAB TABLET GT SCH (09:00)
[2019-03-11] MEDS: Z GUARD REMEDY 4 OZ OINT TP SCH ×2 (09:00→21:35)
[2019-03-11] MEDS: ASCORBIC ACID 500 MG TABLET GT SCH (09:00)
[2019-03-11] MEDS: SUCRALFATE 1 G/10 ML UDC GT SCH (09:00)
[2019-03-11] MEDS: POVIDONE-IODINE OINT 28.4 GM TUBE TP SCH ×4 (09:00→21:34)
[2019-03-11] MEDS: HYDROGEN PEROXIDE 480 ML BOTTLE TP SCH ×2 (09:00→21:35)
[2019-03-11] MEDS: HYDROGEL DRESSING 90 GM TUBE TP SCH (09:00)
--- NOTE | 2019-03-11 11:00 | NUR ---
Place a call to Dr. Madsen's office requesting to speak with MD regarding surgical intervention for patient. Awaiting for call back.
--- NOTE | 2019-03-11 11:10 | NUR ---
Resident seen by Dr. Beltran, credit controller and made aware that patient is being followed by Dr. Madsen, vascular surgeon. Requested Dr. Carrasco to reach out to Dr. Madsen regarding plan to do amputation of the R AKA. According to MD he, will give him a call. Made a follow-up call to Dr. Madsen and per office staff he is with the patient but will remind Dr. Madsen again to call the facility.
--- NOTE | 2019-03-11 15:00 | NUR ---
INTERDISCIPLINARY PLAN OF CARE CONFERENCE was held today. Resident's daughter Adrienne expressed that she would like to attend the meeting via phone conference but did not answer when called. Dr. Rocha and the interdisciplinary team discussed the current plan of care in detail. Current orders as well as treatments and medications were reviewed. Pharmacist clarified with SUPERVISOR SULFURIC ACID PLANT Ina indications and duration of current ATB. SUPERVISOR SULFURIC ACID PLANT discontinued Bactrim and kept all other antibiotics for total of 6 weeks duration. Attempted to contact Dr. Madsen several times to inquire about the plan for surgery, awaiting for call back. Referred [facility] senior java developer's recommendation to start Neutrophos [address] Rocha but he said to refer it to utility porter. Resident's daughter returned the call acknowledging that she missed the initial call. Adrienne was given an update of what was discussed in the meeting.
--- NOTE | 2019-03-11 16:14 | NUR ---
Notified Dr. Damian that [facility] fence repairman is recommending Neutraphos 1 packet daily due to Phosphorus 2.6. He said it is OK. All orders noted and carried out.
--- NOTE | 2019-03-11 16:45 | NUR ---
Place another call to Dr. Madsen's office and spoke with Dr. Madsen himself. Explained that family wants to know the plan for surgery and family is OK with whatever the doctor decides. In the last visit, Dr. Madsen mentioned that either "AKA or continued observation" was offered to family since tissue loss is stable and dry without infection. Informed MD that condition of the R gangrenous toes and R heel has deteriorated from the time he saw the patient. The patient was also transferred to acute hospital recently for infection. Dr. Madsen requested to send the most recent wound photo and family's contact information. Informed Christine, resident's daughter that Dr. Madsen will be contacting her. Appreciated the call.
--- NOTE | 2019-03-11 17:19 | NUR ---
RT NOTE: RT NOTE: RECEIVED PT ON NOTED ORDERED VENT SETTINGS. @1315 PT LEFT FOR HEMODIALYSIS TX. PT ARRIVE BACK TO FACILITY AFTER TX NO RESPIRATORY DISTRESS NOTED. TRACH CHECKED SECURE AND PATENT. SXD AND LAVAGED PT Q ROUND AND NEEDED. TRACH CARE DONE. SPARE TRACH AND AMBU BAG @ BEDSIDE. ALARMS CHECKED ON AND AUDIBLE. Addendum: 03/11/19 at 1720 by ALEX PRAJAPATI RT Amended: Links added.
--- NOTE | 2019-03-11 18:00 | NUR ---
RN NOTES Patient left for dialysis around 1230, no sob noted, vital signs stable. Patient returned to the unit around 1700, vital signs stable, GENO midline intact, R Chest wall catheter in place and is not showing any bleeding, or any signs of being dislodged. Patient shows no s/s of pain at this time. All paperwork filled and filed.
[2019-03-11] MEDS: COLISTIMETHATE SODIUM 100 MG in IV NS 0.9% 50 ML IV SCH (20:58)
[2019-03-11] MEDS: VANCOMYCIN HCL 0.75 GM in IV D5W 250 ML IV SCH (20:59)
--- NOTE | 2019-03-11 20:59 | NUR ---
Vancomycin IV given post dialysis.
[2019-03-11] MEDS: FENOFIBRATE NANOCRYS (145 MG) 145 MG TABLET GT SCH (21:05)
[2019-03-12] VITALS (7 sets, daily range): BP systolic 108–161; BP diastolic 49–76
[2019-03-12] MEDS: POLYVINYL ALCOHOL 15 ML BOTTLE EACHEYE SCH ×5 (00:05→23:17)
[2019-03-12] MEDS: BLOOD SUGAR DIAGNOSTIC 1 EACH STRIP IN SCH ×5 (00:05→23:17)
[2019-03-12] MEDS: METOCLOPRAMIDE HCL 10 MG TABLET GT SCH ×5 (00:05→23:17)
[2019-03-12] MEDS: INSULIN ASPART/LISPRO 100 UNIT/ML CARTRIDGE SQ PRN ×5 (00:09→23:18)
[2019-03-12] MEDS: METRONIDAZOLE 500 MG TABLET GT SCH ×3 (05:13→20:33)
[2019-03-12] MEDS: ACETAMINOPHEN 650 MG/20 ML UDC- SA PATIENTS-PAIN ONLY GT PRN (05:14)
[2019-03-12] MEDS: ACETAMINOPHEN 650 MG/20 ML UDC- SA PATIENTS-FEVER ONLY GT PRN (05:14)
--- NOTE | 2019-03-12 06:52 | NUR ---
given prn 650 mg tylenol via gt d/t temp 100.4. cooling measures rendered. no s/s of respiratory distress noted. tylenol effective. temp 98.8. pt calm. sleeping but arousable. no s/s of distress noted.
[2019-03-12] MEDS: SUCRALFATE 1 G/10 ML UDC GT SCH (08:53)
[2019-03-12] MEDS: ERGOCALCIFEROL (VITAMIN D 2) 50,000 UNIT CAPSULE GT SCH (08:53)
[2019-03-12] MEDS: PROSTAT (PYXIS) 30 ML UDC GT SCH ×3 (08:53→16:33)
[2019-03-12] MEDS: LACTOBACILLUS RHAMNOSUS GG 1 EACH CAP.SPRINK GT SCH ×2 (08:53→16:33)
[2019-03-12] MEDS: VIT B CMPLX 3/FA/VIT C/BIOTIN 1 TAB TABLET GT SCH (08:54)
[2019-03-12] MEDS: NEUTRA PHOS 1 POWD.PACKET GT SCH (08:55)
[2019-03-12] MEDS: OMEPRAZOLE 20 MG CAPSULE.DR GT SCH (08:56)
[2019-03-12] MEDS: ASCORBIC ACID 500 MG TABLET GT SCH (08:56)
[2019-03-12] MEDS: HYDROCODONE/APAP 5/325MG 1 EACH TABLET GT SCH ×2 (08:56→20:34)
[2019-03-12] MEDS: ZINC SULFATE 220 MG CAPSULE GT SCH (08:56)
[2019-03-12] MEDS: METOPROLOL TARTRATE 50 MG TABLET GT SCH ×2 (08:58→20:33)
[2019-03-12] MEDS: BASAGLAR U SQ SCH ×2 (09:16→20:34)
[2019-03-12] MEDS: Z GUARD REMEDY 4 OZ OINT TP SCH ×2 (09:56→20:35)
[2019-03-12] MEDS: BACI/NEOM/POLY B OINT PKT 1 UDPKT PACKET TP SCH ×4 (09:56→20:35)
[2019-03-12] MEDS: HYDROCORTISONE 1% CREAM 30 GM TUBE TP SCH ×2 (09:56→20:35)
[2019-03-12] MEDS: POVIDONE-IODINE OINT 28.4 GM TUBE TP SCH ×4 (09:56→20:34)
[2019-03-12] MEDS: HYDROGEL DRESSING 90 GM TUBE TP SCH (09:56)
[2019-03-12] MEDS: NYSTATIN/TRIAMCIN CREAM 15 GM TUBE TP SCH ×2 (09:56→20:35)
[2019-03-12] MEDS: NEPRO 1,000 ML BOTTLE GT PRN (15:36)
--- NOTE | 2019-03-12 16:10 | NUR ---
RT NOTE: RECEIVED PT ON ORDERED NOTED VENT SETTINGS. NO RESPIRATORY DISTRESS NOTED. TRACH CHECKED SECURE AND PATENT. SXD AND LAVAGED PT Q ROUND AND NEEDED. TXS GIVEN ORDERED WITH NO ADVERSE REACTIONS NOTED. TRACH CARE DONE. SPARE TRACH AND AMBU BAG @ BEDSIDE. ALARMS CHECKED ON AND AUDIBLE.
[2019-03-12] MEDS: COLISTIMETHATE SODIUM 100 MG in IV NS 0.9% 50 ML IV SCH (20:00)
[2019-03-12] MEDS: HYDROGEN PEROXIDE 480 ML BOTTLE TP SCH (20:33)
[2019-03-12] MEDS: FENOFIBRATE NANOCRYS (145 MG) 145 MG TABLET GT SCH (21:03)
--- NOTE | 2019-03-12 23:30 | NUR ---
Daughter Christine came up to the charge nurse to asked what's the plan for her dad if they will still do AKA and she wants to know how soon it will be done. she stated that she wants the nurse to find out on Thursday if they still plan to do AKA and she doesn't need for the doctor to contact them to make schedule.
[2019-03-13] VITALS (8 sets, daily range): BP systolic 117–165; BP diastolic 45–79
[2019-03-13] MEDS: POLYVINYL ALCOHOL 15 ML BOTTLE EACHEYE SCH ×3 (05:10→17:55)
[2019-03-13] MEDS: METOCLOPRAMIDE HCL 10 MG TABLET GT SCH ×3 (05:10→17:55)
[2019-03-13] MEDS: METRONIDAZOLE 500 MG TABLET GT SCH ×3 (05:10→20:00)
[2019-03-13] MEDS: BLOOD SUGAR DIAGNOSTIC 1 EACH STRIP IN SCH ×3 (05:11→18:12)
[2019-03-13] MEDS: ACETAMINOPHEN 650 MG/20 ML UDC- SA PATIENTS-FEVER ONLY GT PRN (05:11)
[2019-03-13] MEDS: INSULIN ASPART/LISPRO 100 UNIT/ML CARTRIDGE SQ PRN ×3 (05:12→18:12)
--- NOTE | 2019-03-13 05:13 | NUR ---
Noted pt skin warm to the touch- Vital sign checked - Temp 102.3 Axillay, BP 117/59 , R 106 RR 18 O2 Sat 98 % , No s/sx of resp distress- cooling measures provided, repositioned pt- PRN Tylenol for fever given. C Consultant Charge nurse updated and made aware-will cont to monitor. Am due meds given.
--- NOTE | 2019-03-13 06:28 | NUR ---
Pt noted sleeping- no SOB, Oral Temp re-checked notep Temp :100.4 HR 88. Continue with cooling measures.charge entry nurse updated.
[2019-03-13] MEDS: PROSTAT (PYXIS) 30 ML UDC GT SCH ×3 (08:00→17:48)
[2019-03-13] MEDS: HYDROGEL DRESSING 90 GM TUBE TP SCH (09:00)
[2019-03-13] MEDS: Z GUARD REMEDY 4 OZ OINT TP SCH ×2 (09:00→21:16)
[2019-03-13] MEDS: HYDROCORTISONE 1% CREAM 30 GM TUBE TP SCH ×2 (09:00→21:15)
[2019-03-13] MEDS: HYDROGEN PEROXIDE 480 ML BOTTLE TP SCH ×2 (09:00→21:00)
[2019-03-13] MEDS: POVIDONE-IODINE OINT 28.4 GM TUBE TP SCH ×4 (09:00→21:15)
[2019-03-13] MEDS: BASAGLAR U SQ SCH ×2 (09:00→21:15)
[2019-03-13] MEDS: BACI/NEOM/POLY B OINT PKT 1 UDPKT PACKET TP SCH ×4 (09:00→21:16)
[2019-03-13] MEDS: NYSTATIN/TRIAMCIN CREAM 15 GM TUBE TP SCH ×2 (09:00→21:15)
[2019-03-13] MEDS: METOPROLOL TARTRATE 50 MG TABLET GT SCH ×2 (09:00→21:13)
[2019-03-13] MEDS: SUCRALFATE 1 G/10 ML UDC GT SCH (09:39)
[2019-03-13] MEDS: OMEPRAZOLE 20 MG CAPSULE.DR GT SCH (09:41)
[2019-03-13] MEDS: HYDROCODONE/APAP 5/325MG 1 EACH TABLET GT SCH ×2 (09:42→21:14)
[2019-03-13] MEDS: VIT B CMPLX 3/FA/VIT C/BIOTIN 1 TAB TABLET GT SCH (09:45)
[2019-03-13] MEDS: LACTOBACILLUS RHAMNOSUS GG 1 EACH CAP.SPRINK GT SCH ×2 (09:45→17:48)
[2019-03-13] MEDS: NEUTRA PHOS 1 POWD.PACKET GT SCH (09:45)
[2019-03-13] MEDS: ASCORBIC ACID 500 MG TABLET GT SCH (09:46)
[2019-03-13] MEDS: ZINC SULFATE 220 MG CAPSULE GT SCH (09:46)
--- NOTE | 2019-03-13 12:30 | NUR ---
RT NOTE RECEIVED PT MECHANICALLY VENTILATED VIA CUFFED TRACHEOSTOMY TUBE. CUFF INFLATED. TRACH TUBE MIDLINE AND SECURE. VENTILATOR SETTINGS PRESCRIBED. ALARMS SET PER PROTOCOL AND AUDIBLE. VENT PLUGGED IN TO RED OUTLET. AMBU BAG AND BACK UP TRACH AT BED SIDE. NO DISTRESS NOTED. Addendum: 03/13/19 at 1230 by HILLARY SANTACRUZ RT Amended: Links added.
[2019-03-13] MEDS: NEPRO 1,000 ML BOTTLE GT PRN (15:30)
[2019-03-13] MEDS: COLISTIMETHATE SODIUM 100 MG in IV NS 0.9% 50 ML IV SCH (20:00)
[2019-03-13] MEDS: FENOFIBRATE NANOCRYS (145 MG) 145 MG TABLET GT SCH (21:16)
[2019-03-14] VITALS (8 sets, daily range): BP systolic 98–165; BP diastolic 52–81
[2019-03-14] MEDS: METOCLOPRAMIDE HCL 10 MG TABLET GT SCH ×6 (00:04→23:28)
[2019-03-14] MEDS: BLOOD SUGAR DIAGNOSTIC 1 EACH STRIP IN SCH ×5 (00:04→23:28)
[2019-03-14] MEDS: POLYVINYL ALCOHOL 15 ML BOTTLE EACHEYE SCH ×5 (00:04→23:28)
[2019-03-14] MEDS: INSULIN ASPART/LISPRO 100 UNIT/ML CARTRIDGE SQ PRN ×5 (00:06→23:29)
[2019-03-14] MEDS: METRONIDAZOLE 500 MG TABLET GT SCH ×3 (05:27→20:00)
[2019-03-14] MEDS: ACETAMINOPHEN 650 MG/20 ML UDC- SA PATIENTS-PAIN ONLY GT PRN (07:05)
[2019-03-14] MEDS: PROSTAT (PYXIS) 30 ML UDC GT SCH ×3 (08:00→17:00)
[2019-03-14] MEDS: METOPROLOL TARTRATE 50 MG TABLET GT SCH ×2 (09:00→21:01)
[2019-03-14] MEDS: HYDROGEN PEROXIDE 480 ML BOTTLE TP SCH ×2 (09:00→21:50)
[2019-03-14] MEDS: Z GUARD REMEDY 4 OZ OINT TP SCH ×2 (09:00→21:51)
[2019-03-14] MEDS: BACI/NEOM/POLY B OINT PKT 1 UDPKT PACKET TP SCH ×4 (09:00→21:51)
[2019-03-14] MEDS: SUCRALFATE 1 G/10 ML UDC GT SCH (09:46)
[2019-03-14] MEDS: NEUTRA PHOS 1 POWD.PACKET GT SCH (09:47)
[2019-03-14] MEDS: LACTOBACILLUS RHAMNOSUS GG 1 EACH CAP.SPRINK GT SCH ×2 (09:47→17:00)
[2019-03-14] MEDS: VIT B CMPLX 3/FA/VIT C/BIOTIN 1 TAB TABLET GT SCH (09:47)
[2019-03-14] MEDS: ASCORBIC ACID 500 MG TABLET GT SCH (09:51)
[2019-03-14] MEDS: HYDROCODONE/APAP 5/325MG 1 EACH TABLET GT SCH ×2 (09:51→21:03)
[2019-03-14] MEDS: OMEPRAZOLE 20 MG CAPSULE.DR GT SCH (09:51)
[2019-03-14] MEDS: ZINC SULFATE 220 MG CAPSULE GT SCH (09:51)
[2019-03-14] MEDS: BASAGLAR U SQ SCH ×2 (10:09→21:49)
[2019-03-14] MEDS: HYDROGEL DRESSING 90 GM TUBE TP SCH (10:30)
[2019-03-14] MEDS: NYSTATIN/TRIAMCIN CREAM 15 GM TUBE TP SCH ×2 (10:30→21:51)
[2019-03-14] MEDS: HYDROCORTISONE 1% CREAM 30 GM TUBE TP SCH ×2 (10:30→21:50)
[2019-03-14] MEDS: POVIDONE-IODINE OINT 28.4 GM TUBE TP SCH ×4 (10:30→21:50)
--- NOTE | 2019-03-14 12:40 | NUR ---
[facility]. Awake, stable vital signs, afebrile. All emergency equipment taken. Trach secured and midline. On mechanical ventilator. No s/s of resp. distress. GT intact and patent. Perma cath on right chest, intact, dressing dry and clean, no bleeding or inflammation noted.
--- NOTE | 2019-03-14 14:02 | NUR ---
Seen by LOPEZ Phipps. Received order to increase Insulin Glargine from 6 to 8 units SC q 12. Notified daughter.
--- NOTE | 2019-03-14 14:08 | NUR ---
Called Dr Madsen's office to follow-up on his plan for pt, if he will do R AKA. Left message with Nguyen.
--- NOTE | 2019-03-14 14:49 | NUR ---
Dr Madsen called. Informed him that pt's family wants R AKA to be done soon. Dr Madsen said he was calling pt's daughter today but she did not answer. He said since family wants the procedure to be done soon, he will schedule it this week. Notified pt's daughter Christine. She said she wants to know first if pt is stable enough to go through with the surgery. Left message for Dr Dia.
--- NOTE | 2019-03-14 16:41 | NUR ---
Informed Dr Rocha of family's question if pt's body will be able to tolerate R AKA. Dr Rocha said pt's body will not tolerate not having the procedure done.
--- NOTE | 2019-03-14 16:47 | NUR ---
Informed pt's daughter Christine of what Dr Rocha said. Christine still has questions and would like to speak with physician. She said she wants to know if there will be further complications after the surgery. She said she already spoke with Dr Madsen today and Dr Madsen told her he will coordinate with Dr Beltran and Dr Dia. Left message for Dr Dia to call Christine.
--- NOTE | 2019-03-14 16:50 | NUR ---
Resident came back from dialysis per [facility] by ambulance transport. Awake, no s/s of distress. Trach secured and midline. No bleeding noted on dialysis site. Dressing dry and intact. Stable vital signs. Will continue to monitor.
[2019-03-14 19:40] LABS: CREATININE 2.7 mg/dL (0.6-1.3)
[2019-03-14] MEDS: VANCOMYCIN HCL 0.75 GM in IV D5W 250 ML IV SCH (20:00)
[2019-03-14] MEDS: COLISTIMETHATE SODIUM 100 MG in IV NS 0.9% 50 ML IV SCH (20:00)
[2019-03-14] MEDS: FENOFIBRATE NANOCRYS (145 MG) 145 MG TABLET GT SCH (21:03)
[2019-03-14] MEDS: NEPRO 1,000 ML BOTTLE GT PRN (22:10)
[2019-03-15] VITALS (8 sets, daily range): BP systolic 104–151; BP diastolic 46–78
[2019-03-15] MEDS: POLYVINYL ALCOHOL 15 ML BOTTLE EACHEYE SCH ×4 (06:13→23:27)
[2019-03-15] MEDS: METRONIDAZOLE 500 MG TABLET GT SCH ×3 (06:13→20:46)
[2019-03-15] MEDS: BLOOD SUGAR DIAGNOSTIC 1 EACH STRIP IN SCH ×4 (06:13→23:27)
[2019-03-15] MEDS: METOCLOPRAMIDE HCL 10 MG TABLET GT SCH ×4 (06:13→23:27)
[2019-03-15] MEDS: INSULIN ASPART/LISPRO 100 UNIT/ML CARTRIDGE SQ PRN ×4 (06:14→23:28)
[2019-03-15] MEDS: PROSTAT (PYXIS) 30 ML UDC GT SCH ×3 (08:30→18:52)
[2019-03-15] MEDS: HYDROGEN PEROXIDE 480 ML BOTTLE TP SCH ×2 (09:00→20:42)
--- NOTE | 2019-03-15 09:20 | NUR ---
Dr Madsen called and said he will do right above knee amputation tomorrow at 0730 am. He ordered NPO at midnight, type and screen, BMP, CBC, PT, PTT. He said pt needs to be dialyzed today. Informed him that pt goes out to [facility] for dialysis and there is no guarantee that pt will be scheduled for dialysis today. He said his concern is the pt's potassium, if potassium is high he will not be able to do surgery. If pt does not get dialyzed, he said to do STAT BMP and if potassium is greater than 4.8, give Kayexalate 30 gm GT x 1.
[2019-03-15] MEDS: NEUTRA PHOS 1 POWD.PACKET GT SCH (09:51)
[2019-03-15] MEDS: OMEPRAZOLE 20 MG CAPSULE.DR GT SCH (09:51)
[2019-03-15] MEDS: ZINC SULFATE 220 MG CAPSULE GT SCH (09:51)
[2019-03-15] MEDS: METOPROLOL TARTRATE 50 MG TABLET GT SCH ×2 (09:51→20:46)
[2019-03-15] MEDS: LACTOBACILLUS RHAMNOSUS GG 1 EACH CAP.SPRINK GT SCH ×2 (09:51→18:52)
[2019-03-15] MEDS: BASAGLAR U SQ SCH ×2 (09:51→21:40)
[2019-03-15] MEDS: ASCORBIC ACID 500 MG TABLET GT SCH (09:51)
[2019-03-15] MEDS: SUCRALFATE 1 G/10 ML UDC GT SCH (09:51)
[2019-03-15] MEDS: VIT B CMPLX 3/FA/VIT C/BIOTIN 1 TAB TABLET GT SCH (09:51)
--- NOTE | 2019-03-15 10:00 | NUR ---
Arranged hemodialysis at [facility] for 2 pm today, spoke with Yanely. Informed dialysis nurse Ryan that pt has a temp of 102.4 F. He said if pt's fever goes down, they can still do dialysis. Arranged ambulance transportation with [facility] [employer] , spoke with Trena. She said pt will be picked up by [facility] at 1:30 pm, verification # [id number].
[2019-03-15] MEDS: HYDROCODONE/APAP 5/325MG 1 EACH TABLET GT SCH ×2 (10:30→20:47)
[2019-03-15] MEDS: ACETAMINOPHEN 650 MG/20 ML UDC- SA PATIENTS-FEVER ONLY GT PRN ×2 (10:31→20:46)
[2019-03-15] MEDS: Z GUARD REMEDY 4 OZ OINT TP SCH ×2 (11:00→21:35)
[2019-03-15] MEDS: NYSTATIN/TRIAMCIN CREAM 15 GM TUBE TP SCH ×2 (11:00→21:34)
[2019-03-15] MEDS: HYDROGEL DRESSING 90 GM TUBE TP SCH (11:00)
[2019-03-15] MEDS: POVIDONE-IODINE OINT 28.4 GM TUBE TP SCH ×4 (11:00→21:34)
[2019-03-15] MEDS: BACI/NEOM/POLY B OINT PKT 1 UDPKT PACKET TP SCH ×2 (11:00→21:35)
[2019-03-15] MEDS: HYDROCORTISONE 1% CREAM 30 GM TUBE TP SCH ×2 (11:00→21:34)
--- NOTE | 2019-03-15 11:00 | NUR ---
Seen by Dr Dia. He spoke with pt's daughter on the phone regarding pt's condition and planned right above knee amputation. Dr Dia aware of pt's T 102.5 F. He ordered STAT CBC and BMP. He said he asked Dr Pham to see pt prior to surgery.
--- NOTE | 2019-03-15 11:20 | NUR ---
Notified Dr Madsen that pt has a temp of 102.5 F. He said he will still do the surgery because the pt's necrotic toes might be the cause of pt's fever. Notified Dr Dia. Dr Dia and Dr Madsen aware that pt will have dialysis today.
[2019-03-15 11:38] LABS: BASOPHILS # (AUTO) 0.3 /CMM (0.0-0.2); BASOPHILS % (AUTO) 1.2 % (0.0-2.0); CALCIUM, SERUM 8.5 mg/dL (8.5-10.1); CREATININE 3.5 mg/dL (0.6-1.3); EOSINOPHILS % (AUTO) 16.1 % (0.0-6.0); HEMATOCRIT 32 % (39-51); HEMOGLOBIN 10.3 g/dL (13.5-17.5); LYMPHOCYTES # (AUTO) 4.1 /CMM (0.8-4.8); LYMPHOCYTES % (AUTO) 18.3 % (20.0-44.0); MEAN CORPUSCULAR HGB CONC 33 g/dl (31.0-36.0); MEAN CORPUSCULAR VOLUME 91 fL (80-96); MONOCYTES # (AUTO) 1.3 /CMM (0.1-1.30); NEUTROPHILS # (AUTO) 13.1 /CMM (1.8-8.9); NEUTROPHILS % (AUTO) 58.4 % (43.0-81.0); PLATELET COUNT (AUTO) 512 /CMM (150-450); RED BLOOD CELL COUNT(AUTO) 3.48 MIL/uL (4.5-6.0); WHITE BLOOD COUNT (AUTO) 22.4 K/uL (4.3-11.0)
[2019-03-15 11:40] LABS: POTASSIUM 2.7 mmol/L (3.5-5.1)
--- NOTE | 2019-03-15 11:52 | NUR ---
Pt's K 2.7. Dr Dia ordered KCl 20 mEq IV q 1 hour x 4 (total of 80 mEq).
--- NOTE | 2019-03-15 12:13 | NUR ---
Spoke with pt's daughter Christine. Informed her that Dr Madsen will still do R AKA tomorrow because he thinks the fever might be from the foot. Also informed her that pt will go to acute hospital after surgery per Dr Madsen. She said she will come tonight to sign consent forms.
--- NOTE | 2019-03-15 13:01 | NUR ---
Pharmacy asked to clarify KCl order. Received order to give KCl 10 mEq IV q 1 hour x 8 for a total of [address] Dia that pt will be picked up at 1:30 pm for dialysis today. He said to have dialysis center give potassium. Spoke with Ryan at [facility] and he said they do not give potassium, they only adjust their settings and it will take a month to correct potassium level. Notified Dr Dia. He ordered to give KCl after hemodialysis and repeat BMP at 4 am tomorrow.
[2019-03-15 13:02] LABS: EOSINOPHILS % (MANUAL) 19 % (0-4); LYMPHOCYTES % (MANUAL) 15 % (16-48); MONOCYTES % (MANUAL) 2 % (0-11.0); NEUTROPHILS % (MANUAL) 62 (42-76)
[2019-03-15 13:03] LABS: MYELOCYTES % 2 % (0-0)
--- NOTE | 2019-03-15 13:25 | NUR ---
Seen by Dr Pham. He ordered to do EKG, complete echocardiogram, CMP, Free T4, Mg, Phos, PT/INR, TSH, CXR. He also ordered to DC Fenofibrate nanocrys and to give Potassium Chloride 20 mEq via GT q 1 hour x 5 for hypokalemia.
[2019-03-15 13:40] LABS: THYROID STIMULATING HORMONE 4.717 uIU/mL (0.358-3.74)
--- NOTE | 2019-03-15 15:00 | NUR ---
Notified LOPEZ Buckley that pt had a temp of 102.5 F earlier, WBC 22.4. Pt's temp went done to 98. 3 F. Notified her that pt will have right AKA tomorrow. No new order.
--- NOTE | 2019-03-15 15:40 | NUR ---
Called Dr Pham's office and faxed EKG result to him.
--- NOTE | 2019-03-15 15:50 | NUR ---
Dr Dia ordered to DC Potassium Chloride 10 mEq IV q [address] Pham already ordered Potassium Chloride 20 mEq via GT q 1 hour x 5 for hypokalemia.
--- NOTE | 2019-03-15 16:42 | NUR ---
Spoke with [place]. Informed him that pt does not need to be picked up for dialysis tomorrow since pt will be in the hospital.
[2019-03-15] MEDS ORDERED: POTASSIUM CL. PREMIX PERIPHER. 50 ML IV SCH (17:00)
[2019-03-15] MEDS ORDERED: POTASSIUM CHLORIDE 20 MEQ POWDER PACKET GT SCH (17:00)
--- NOTE | 2019-03-15 17:45 | NUR ---
Spoke with IV pharmacist Dwayne, relayed Vancomycin trough 19 to him. He said that since it was drawn after dialysis, level must have been higher. Informed him that pt had dialysis today prior to his surgery tomorrow. He ordered to not give Vancomycin today, and since pt will be transferred to acute hospital after surgery, he did not order any doses.
[2019-03-15] MEDS: POTASSIUM CHLORIDE 20 MEQ POWDER PACKET GT SCH ×5 (18:52→22:43)
--- NOTE | 2019-03-15 18:57 | NUR ---
Relayed CXR result to LOPEZ Phipps.
--- NOTE | 2019-03-15 19:05 | NUR ---
Pt just had echocardiogram done.
[2019-03-15] MEDS: COLISTIMETHATE SODIUM 100 MG in IV NS 0.9% 50 ML IV SCH (20:00)
[2019-03-16] VITALS (8 sets, daily range): BP systolic 115–140; BP diastolic 48–72
[2019-03-16] MEDS ORDERED: IV NS 0.9% 1,000 ML BAG IV PRN
[2019-03-16 04:26] LABS: BASOPHILS # (AUTO) 0.1 /CMM (0.0-0.2); BASOPHILS % (AUTO) 0.5 % (0.0-2.0); EOSINOPHILS % (AUTO) 16.3 % (0.0-6.0); HEMATOCRIT 32 % (39-51); HEMOGLOBIN 9.9 g/dL (13.5-17.5); LYMPHOCYTES # (AUTO) 2.7 /CMM (0.8-4.8); LYMPHOCYTES % (AUTO) 14.3 % (20.0-44.0); MEAN CORPUSCULAR HGB CONC 31 g/dl (31.0-36.0); MEAN CORPUSCULAR VOLUME 93 fL (80-96); MONOCYTES % (AUTO) 5.2 % (2.0-12.0); NEUTROPHILS # (AUTO) 12.3 /CMM (1.8-8.9); NEUTROPHILS % (AUTO) 63.7 % (43.0-81.0); PLATELET COUNT (AUTO) 525 /CMM (150-450); RED BLOOD CELL COUNT(AUTO) 3.44 MIL/uL (4.5-6.0); WHITE BLOOD COUNT (AUTO) 19.3 K/uL (4.3-11.0)
[2019-03-16 05:02] LABS: ALBUMIN 1.9 g/dL (3.4-5.0); BILIRUBIN,TOTAL 0.7 mg/dL (0.2-1.0); CALCIUM, SERUM 8.5 mg/dL (8.5-10.1); CREATININE 2.1 mg/dL (0.6-1.3); MAGNESIUM 1.9 mg/dL (1.8-2.4); POTASSIUM 4.8 mmol/L (3.5-5.1); TOTAL PROTEIN, SERUM 7.5 g/dL (6.4-8.2)
[2019-03-16 05:31] LABS: PHOSPHORUS 0.6 mg/dL (2.5-4.9)
[2019-03-16] MEDS: METOCLOPRAMIDE HCL 10 MG TABLET GT SCH ×4 (06:00→22:51)
[2019-03-16] MEDS: METOCLOPRAMIDE HCL 10 MG/2 ML VIAL IV SCH ×2 (06:00)
[2019-03-16] MEDS: METRONIDAZOLE 500 MG TABLET GT SCH ×3 (06:00→22:35)
[2019-03-16] MEDS: POLYVINYL ALCOHOL 15 ML BOTTLE EACHEYE SCH ×4 (06:08→22:52)
[2019-03-16] MEDS: BLOOD SUGAR DIAGNOSTIC 1 EACH STRIP IN SCH ×4 (06:20→22:50)
[2019-03-16] MEDS: INSULIN ASPART/LISPRO 100 UNIT/ML CARTRIDGE SQ PRN ×4 (06:21→23:02)
[2019-03-16] MEDS ORDERED: IV NS 0.9% 1,000 ML IV PRN (07:30)
--- NOTE | 2019-03-16 07:50 | NUR ---
Received an endorsement from the night monitor that patient has surgery scheduled today for R AKA at 0730. However according to nursing supervisor ticket sales and OR, patient is not on schedule. Confirmed this information with Dr. Madsen. According to MD, there is a problem with the insurance and will try to do it tomorrow if hospital allows. Spoke with admitting silvering department supervisor to find out status of patient's authorization, she said that she sent the request yesterday stat and waiting for a response. She will notify this nurse as soon as she hear from the insurance. Dr. Madsen informed.
[2019-03-16] MEDS: PROSTAT (PYXIS) 30 ML UDC GT SCH ×3 (08:00→17:00)
--- NOTE | 2019-03-16 08:15 | NUR ---
Spoke with Nitza from [facility] asking if patient should have a dialysis today since patient's scheduled surgery today was cancelled. According to Nitza, the patient had a dialysis yesterday and next scheduled dialysis will be on Thursday. She said, If he will have a dialysis today it will be an extra day for him and will require an order. Resident's daughter Christine made aware that surgery will be reschedule due to pending authorization. Appreciated the call.
[2019-03-16] MEDS: BACI/NEOM/POLY B OINT PKT 1 UDPKT PACKET TP SCH ×2 (09:00→22:49)
[2019-03-16] MEDS: POVIDONE-IODINE OINT 28.4 GM TUBE TP SCH ×4 (09:00→22:47)
[2019-03-16] MEDS: HYDROCORTISONE 1% CREAM 30 GM TUBE TP SCH ×2 (09:00→22:48)
[2019-03-16] MEDS: HYDROGEL DRESSING 90 GM TUBE TP SCH (09:00)
[2019-03-16] MEDS: ZINC OXIDE 30 GM TUBE TP SCH ×2 (09:00→22:50)
[2019-03-16] MEDS: NYSTATIN/TRIAMCIN CREAM 15 GM TUBE TP SCH ×2 (09:00→22:49)
[2019-03-16] MEDS: Z GUARD REMEDY 4 OZ OINT TP SCH ×2 (09:00→22:49)
--- NOTE | 2019-03-16 09:40 | NUR ---
According to Ting, admitting painting department supervisor, she was informed by insurance company that since Dr. Madsen is not contracted with [facility], to ask MD if he will take 100% Medical rate, and authorization will be given. This was referred to CNO who will communicate with physician.
[2019-03-16] MEDS: LACTOBACILLUS RHAMNOSUS GG 1 EACH CAP.SPRINK GT SCH ×2 (09:44→17:00)
[2019-03-16] MEDS: SUCRALFATE 1 G/10 ML UDC GT SCH (09:44)
[2019-03-16] MEDS: METOPROLOL TARTRATE 50 MG TABLET GT SCH ×2 (09:45→22:37)
[2019-03-16] MEDS: NEUTRA PHOS 1 POWD.PACKET GT SCH (09:45)
[2019-03-16] MEDS: VIT B CMPLX 3/FA/VIT C/BIOTIN 1 TAB TABLET GT SCH (09:45)
[2019-03-16] MEDS: ASCORBIC ACID 500 MG TABLET GT SCH (09:46)
[2019-03-16] MEDS: ZINC SULFATE 220 MG CAPSULE GT SCH (09:46)
[2019-03-16] MEDS: HYDROCODONE/APAP 5/325MG 1 EACH TABLET GT SCH ×2 (09:46→22:40)
[2019-03-16] MEDS: OMEPRAZOLE 20 MG CAPSULE.DR GT SCH (09:46)
[2019-03-16] MEDS: BASAGLAR U SQ SCH ×2 (09:47→22:46)
--- NOTE | 2019-03-16 12:30 | NUR ---
Spoke with Nguyen from Dr. Madsen's office confirming that according to Admitting pressing department supervisor Ting, she already obtained authorization from insurance [employer] for R AKA. Per Ngyuen, she will inform Dr. Madsen and will call this nurse to give orders. Awaiting for MD to call back.
--- NOTE | 2019-03-16 12:35 | NUR ---
Referred to LOPEZ Parker, if patient to continue with Vancomycin or resume it after surgery. Per [facility] pharmacistAnahi, the patient bleeds more when they are on Vancomycin. Per LOPEZ Buckley, to continue with Vancomycin. [facility] pharmacist Anahi informed, she said she will send her recommendation.
[2019-03-16] MEDS: NEPRO 1,000 ML BOTTLE GT PRN (13:13)
--- NOTE | 2019-03-16 13:17 | NUR ---
left a message to Dr. Dia regarding CMP result with Phosphorus level of 0.6. Patient receiving Neutraphos 1 packet daily. MD also notified of CBC result, WBC 19.3, with surgery schedule for tomorrow. Awaiting for MD to call back.
--- NOTE | 2019-03-16 15:30 | NUR ---
Dr. Dia gave an order to give Na Phos 20mmol IV x !. Order faxed to [facility] pharmacy. Dr. Dia ordered to repeat BMP and Phosphorus level at 7PM. However according to pharmacist, it will take about 4 hours to infuse the medication therefore Phosphorus level should be drawn [address] Dia informed.
[2019-03-16] MEDS ORDERED: Sodium Phosphate 15 MMOL in IV D5W 250 ML IV ONE ×3 (16:00→23:30)
--- NOTE | 2019-03-16 16:20 | NUR ---
[facility] pharmacist informed this nurse that Dr. Warner, manager operations and procurement entered an ordered for Na Phos 15mmol IV x 1 and Neutraphos 2 packets Q shift via GT. Referred manager operations and procurement order with Dr. Dia, he said to carry out manager operations and procurement's recommendations. Order noted and carried out.
--- NOTE | 2019-03-16 16:30 | NUR ---
Notified Dr. Madsen that authorization has been obtained and advised MD to call nursing meter shop supervisor for schedule. New order given to do Type and Screen, BMP in AM and NPO after midnight. Order noted and carried out.
[2019-03-16] MEDS ORDERED: SODIUM PHOSPHATE IV ONE (17:00)
[2019-03-16] MEDS: ACETAMINOPHEN 650 MG/20 ML UDC- SA PATIENTS-FEVER ONLY GT PRN (18:53)
--- NOTE | 2019-03-16 18:55 | NUR ---
Notified GROUP COUNSELOR Ina Parker, patient still running temperature 100-102, WBC 19.3, she said that patient still on ATB, patient has big open wound in the sacral area and with gangrenous toes which is likely the cause of infection. Dr. Dia also aware of the elevated WBC which he said is likely due to gangrene. NNO given at this time.
[2019-03-16] MEDS: COLISTIMETHATE SODIUM 100 MG in IV NS 0.9% 50 ML IV SCH (20:00)
--- NOTE | 2019-03-16 20:00 | NUR ---
SA RN NOTES TEMPERATURE DOWN TO 100.6.CONTINUE WITH COOLING MEASURES.
[2019-03-16] MEDS: HYDROGEN PEROXIDE 480 ML BOTTLE TP SCH (20:23)
--- NOTE | 2019-03-16 20:23 | NUR ---
Patient's , daughters Christine and Adrienne at bedside and informed family that surgery has been authorized by patient's insurance. No schedule time at this time but Dr. Madsen is notified that authorization has been obtained. Family also informed that patient's Phosphorus is low and he is being given Na Phos IV and Neutraphos/GT. Endorsed to incoming shift.
[2019-03-16] MEDS ORDERED: NEUTRA PHOS 1 POWD.PACKET GT SCH (21:00)
--- NOTE | 2019-03-16 22:50 | NUR ---
Relayed result of phosphorus level 1.7 to ,with new order to give Sodium Phosphate 15mmols IV x 1 for low phosphorus level.Order carried out.
[2019-03-17] VITALS: BP 129/50
[2019-03-17 04:00] VITALS: BP 139/68
[2019-03-17] MEDS: METRONIDAZOLE 500 MG TABLET GT SCH (06:00)
[2019-03-17] MEDS: METOCLOPRAMIDE HCL 10 MG TABLET GT SCH (06:00)
[2019-03-17] MEDS: POLYVINYL ALCOHOL 15 ML BOTTLE EACHEYE SCH (06:02)
[2019-03-17] MEDS: BLOOD SUGAR DIAGNOSTIC 1 EACH STRIP IN SCH (06:03)
--- NOTE | 2019-03-17 07:04 | NUR ---
Followed up BMP results per Jerod need to re draw blood it was hemolyzed.Inform them pt going for surgery.
--- NOTE | 2019-03-17 07:05 | NUR ---
New acct for surgery obtained,patient is ready to be fiber picker.Vital signs BP 139/68,Temp 100.2,HR 98.
--- NOTE | 2019-03-17 07:30 | NUR ---
Pt was picked up for surgery in stable condition, no distress noted. Informed pt's daughter Christine.
[2019-03-17 07:54] LABS: CALCIUM, SERUM 8.4 mg/dL (8.5-10.1); CREATININE 3.1 mg/dL (0.6-1.3); POTASSIUM 4.7 mmol/L (3.5-5.1)
--- NOTE | 2019-03-21 06:00 | NUR ---
RN NOTES Received new orders from Dr. Dia, noted and carried out. Family at bedside, aware of new orders. Addendum: 03/22/19 at 0633 by VALERIO SANTACRUZ RN wrong time< error time: 2200
[2019-03-21] MEDS ORDERED: HYDROGEL DRESSING 90 GM TUBE TP PRN (20:30)
--- NOTE | 2019-03-21 21:45 | NUR ---
RN NOTES Re-admitted pt from [facility], accompanied by family. Pt placed in room 274. Contact/droplet isolation observed. DX: S/P right AKA, area with dressing intact, no bleeding noted. With right upper chest permacath with no bleeding noted. Right upper arm midline inplace, intact and patent, no bleeding noted. All orders verified with Dr. Dia. Routine body check done and pictures taken. Right AKA dressing remains on as ordered by MD. Pt continues on colistin 100mg IV Q24hr, Vancomycin 500mg IV every after HD days (--). Pt in stable condition. No SOB or respiratory distress. On ventilator with prescribed settings. Will continue to monitor.
[2019-03-21 22:45] VITALS: BP 164/80
--- NOTE | 2019-03-22 03:51 | NUR ---
RT RECD PT FROM ACUTE SIDE, VENT PLUGGED IN RED OUTLET, ALARMS ON AND AUDIBLE BAG AND MASK AT [facility]OB [facility] SETTINGS TRACH INTACT WILL CONT TO MONITOR Addendum: 03/22/19 at 0354 by LOLLY FRY RT Amended: Links added.
[2019-03-22 05:06] VITALS: BP 149/62
[2019-03-22] MEDS: METOCLOPRAMIDE HCL 10 MG TABLET GT SCH ×3 (05:22→18:13)
[2019-03-22] MEDS: BLOOD SUGAR DIAGNOSTIC 1 EACH STRIP IN SCH ×3 (05:22→18:13)
[2019-03-22] MEDS: POLYVINYL ALCOHOL 15 ML BOTTLE EACHEYE SCH ×3 (05:22→18:13)
[2019-03-22] MEDS: INSULIN ASPART/LISPRO 100 UNIT/ML CARTRIDGE SQ PRN ×3 (05:23→18:13)
[2019-03-22 08:00] VITALS: BP 164/102
[2019-03-22] MEDS ORDERED: CLOTRIMAZOLE/BETAMETASONE DIPROPIONATE 15 GM TUBE TP SCH (09:00)
[2019-03-22] MEDS ORDERED: HYDROCODONE/APAP 5/325MG 1 EACH TABLET GT SCH (09:00)
[2019-03-22] MEDS ORDERED: NEPRO 1,000 ML BOTTLE GT PRN (09:00)
[2019-03-22] MEDS ORDERED: HYDROGEL DRESSING 90 GM TUBE TP SCH (09:00)
[2019-03-22] MEDS ORDERED: PROSOURCE / PROSTAT (PYXIS) 30 ML UDC GT SCH (09:00)
--- NOTE | 2019-03-22 09:32 | NUR ---
Informed [facility] that pt is back in [facility]. Spoke with Nitza, she said pt will still have the same dialysis schedule. Arranged transportation with [facility], spoke with Ling. cardiopulmonary supervisor time will be 12:30 pm q Thursday, Thursday, Thursday.
[2019-03-22] MEDS: SUCRALFATE 1 G/10 ML UDC GT SCH (09:56)
[2019-03-22] MEDS: METOPROLOL TARTRATE 50 MG TABLET GT SCH ×2 (09:56→21:17)
[2019-03-22] MEDS: LACTOBACILLUS RHAMNOSUS GG 1 EACH CAP.SPRINK GT SCH ×2 (09:56→17:00)
[2019-03-22] MEDS: ASCORBIC ACID 500 MG TABLET GT SCH (09:57)
[2019-03-22] MEDS: OMEPRAZOLE 20 MG CAPSULE.DR GT SCH (09:57)
[2019-03-22] MEDS: ZINC SULFATE 220 MG CAPSULE GT SCH (09:57)
[2019-03-22] MEDS: PROSOURCE / PROSTAT (PYXIS) 30 ML UDC GT SCH ×3 (09:57→17:00)
[2019-03-22] MEDS: VIT B CMPLX 3/FA/VIT C/BIOTIN 1 TAB TABLET GT SCH (09:57)
[2019-03-22] MEDS: BASAGLAR U SQ SCH ×2 (09:58→21:18)
[2019-03-22] MEDS: BACI/NEOM/POLY B OINT PKT 1 UDPKT PACKET TP SCH ×4 (09:59→21:19)
[2019-03-22] MEDS ORDERED: NYSTATIN/TRIAMCIN CREAM 15 GM TUBE TP SCH (10:00)
[2019-03-22] MEDS ORDERED: HYDROGEL DRESSING 90 GM TUBE TP PRN (10:00)
[2019-03-22] MEDS: HYDROCORTISONE 1% CREAM 28.35 GM TUBE TP SCH ×2 (10:00→21:18)
--- NOTE | 2019-03-22 10:50 | NUR ---
Informed LOPEZ Buckley that pt came back last night. Asked her if she still wanted antibiotics for 6 weeks. LOPEZ Buckley ordered to give Vancomycin, Colistimethate and Flagyl for one week.
--- NOTE | 2019-03-22 10:55 | NUR ---
Clarified orders with Dr Ivan. He ordered to give Prostat 30 mL GT TID, Carafate 1 gm GT daily, Fleet enema 1 enema rectally q 3 days if Dulcolax ineffective, continue Reglan and Clonidine. He also ordered to resume Omeprazole and DC Protonix. Protonix not covered by insurance.
[2019-03-22 12:00] VITALS: BP 150/93
[2019-03-22] MEDS: METRONIDAZOLE 500 MG TABLET GT SCH ×2 (12:07→21:16)
[2019-03-22] MEDS: HYDROCODONE/APAP 5/325MG 1 EACH TABLET GT SCH ×2 (14:00→21:17)
[2019-03-22] MEDS: HYDROGEN PEROXIDE 480 ML BOTTLE TP SCH ×2 (14:16→21:18)
--- NOTE | 2019-03-22 14:40 | NUR ---
Fly Maker recommended that pt should be on Nepro 55 mL/hr for 18 hours a day. Referred to Dr Ivan and received order to change GT feeding order.
[2019-03-22] MEDS: ZINC OXIDE 30 GM TUBE TP SCH ×2 (15:00→21:19)
[2019-03-22] MEDS: ZINC OXIDE 56.7 GM TUBE TP SCH ×2 (15:00→21:19)
--- NOTE | 2019-03-22 15:15 | NUR ---
Dr Ivan ordered to bathe pt with Chlorhexidine solution 4% 1/2 strength (2%) daily for 7 days for hygiene and CRE sputum.
[2019-03-22 16:00] VITALS: BP 140/79
[2019-03-22] MEDS ORDERED: VANCOMYCIN 500 MG in IV D5W 100 ML IV PRN (18:00)
[2019-03-22] MEDS: FLUDROCORTISONE 0.1 MG TABLET PO SCH (18:54)
--- NOTE | 2019-03-22 19:14 | NUR ---
Spoke with IV pharmacist Lux. She said there is no need to do Vancomycin levels since pt will only be given 3 more doses (1 week).
[2019-03-22] MEDS: COLISTIMETHATE SODIUM 100 MG in IV NS 0.9% 50 ML IV SCH (20:00)
[2019-03-22 20:31] VITALS: BP 126/76
[2019-03-22] MEDS ORDERED: POVIDONE-IODINE OINT 28.4 GM TUBE TP SCH ×2 (21:00)
[2019-03-22] MEDS ORDERED: NEUTRA PHOS 1 POWD.PACKET GT SCH (21:00)
[2019-03-22 21:14] VITALS: BP 126/76
[2019-03-22] MEDS: NYSTATIN CREAM 15 GM TUBE TP SCH (21:18)
[2019-03-22] MEDS: TRIAMCINOLONE ACETONIDE 0.1% CR 15 GM TUBE TP SCH (21:18)
[2019-03-22] MEDS: Z GUARD REMEDY 4 OZ OINT TP SCH (21:19)
[2019-03-23] VITALS (8 sets, daily range): BP systolic 107–148; BP diastolic 55–79
[2019-03-23] MEDS: POLYVINYL ALCOHOL 15 ML BOTTLE EACHEYE SCH ×4 (00:17→17:47)
[2019-03-23] MEDS: BLOOD SUGAR DIAGNOSTIC 1 EACH STRIP IN SCH ×4 (00:18→17:46)
[2019-03-23] MEDS: METOCLOPRAMIDE HCL 10 MG TABLET GT SCH ×4 (00:18→17:48)
[2019-03-23] MEDS: INSULIN ASPART/LISPRO 100 UNIT/ML CARTRIDGE SQ PRN ×3 (00:19→17:47)
[2019-03-23] MEDS: METRONIDAZOLE 500 MG TABLET GT SCH ×3 (05:44→20:58)
[2019-03-23] MEDS: SUCRALFATE 1 G/10 ML UDC GT SCH (08:57)
[2019-03-23] MEDS: VIT B CMPLX 3/FA/VIT C/BIOTIN 1 TAB TABLET GT SCH (08:57)
[2019-03-23] MEDS: LACTOBACILLUS RHAMNOSUS GG 1 EACH CAP.SPRINK GT SCH ×2 (08:57→17:46)
[2019-03-23] MEDS: METOPROLOL TARTRATE 50 MG TABLET GT SCH ×2 (08:57→20:58)
[2019-03-23] MEDS: ZINC SULFATE 220 MG CAPSULE GT SCH (09:00)
[2019-03-23] MEDS: HYDROCODONE/APAP 5/325MG 1 EACH TABLET GT SCH ×2 (09:00→20:58)
[2019-03-23] MEDS: PROSOURCE / PROSTAT (PYXIS) 30 ML UDC GT SCH ×3 (09:00→17:46)
[2019-03-23] MEDS: FLUDROCORTISONE 0.1 MG TABLET PO SCH (09:00)
[2019-03-23] MEDS: OMEPRAZOLE 20 MG CAPSULE.DR GT SCH (09:00)
[2019-03-23] MEDS: ASCORBIC ACID 500 MG TABLET GT SCH (09:00)
[2019-03-23] MEDS: BASAGLAR U SQ SCH ×2 (09:15→20:59)
[2019-03-23] MEDS: TRIAMCINOLONE ACETONIDE 0.1% CR 15 GM TUBE TP SCH ×2 (10:00→20:59)
[2019-03-23] MEDS: BACI/NEOM/POLY B OINT PKT 1 UDPKT PACKET TP SCH ×6 (10:00→20:59)
[2019-03-23] MEDS: HYDROGEL DRESSING 90 GM TUBE TP SCH ×5 (10:00→20:59)
[2019-03-23] MEDS: Z GUARD REMEDY 4 OZ OINT TP SCH ×2 (10:00→20:59)
[2019-03-23] MEDS: HYDROCORTISONE 1% CREAM 28.35 GM TUBE TP SCH ×2 (10:00→20:59)
[2019-03-23] MEDS: NYSTATIN CREAM 15 GM TUBE TP SCH ×2 (10:00→20:59)
[2019-03-23] MEDS: ZINC OXIDE 56.7 GM TUBE TP SCH ×2 (10:00→21:00)
[2019-03-23] MEDS: ZINC OXIDE 30 GM TUBE TP SCH ×2 (10:00→20:59)
[2019-03-23] MEDS: CHLORHEXIDINE GLUCONATE 4% 118 ML BOTTLE TP SCH (10:05)
--- NOTE | 2019-03-23 11:25 | NUR ---
WOUND CARE CONSULT: PT FOLLOWED BY PLASTIC SURGERY TEAM FOR WOUND CARE. DEFER TO SURGICAL TEAM FOR WOUND TREATMENT PLAN. WILL SEE PRN.
--- NOTE | 2019-03-23 12:00 | NUR ---
Awake. Trach with vent working at prescribed settings. Right upper chest Hemodialysis catheter with clean dressing. Gt in place patent no residual. Tolerated GT formula well. Contact isolation maintained as ordered for CRE and ACBC droplet contact isolation sputum. Went for Hemodialysis as ordered with Ambulance Transportation Two EMT's and One RT. Report given and isolation precautions maintained.
--- NOTE | 2019-03-23 16:50 | NUR ---
Patient returned to unit from Hemodialysis via ambulance and gurney. Two EMT's and one RT. Awake. Trach with vent working at prescribed settings. GT in place patent no residual. Right upper chest Hemodialysis catheter with clean dressing. No distress noted Contact droplet isolation precautions maintained for ACBC and CRE sputum. Kept clean and comfortable.
[2019-03-23] MEDS: NEPRO 1,000 ML BOTTLE GT PRN (16:53)
--- NOTE | 2019-03-23 17:42 | NUR ---
RT NOTE: RECEIVED PT ON NOTED VENT SETTINGS. NO RESPIRATORY DISTRESS NOTED. PT HAD HEMODIALYSIS TX TODAY WITH NO COMPLICATIONS NOTED. TRACH CHECKED SECURE AND PATENT. SXD AND LAVAGED PT Q ROUND AND NEEDED. TXS GIVEN ORDERED WITH NO ADVERSE REACTIONS NOTED. TRACH CARE DONE. EMERGENCY EQUIPMENT @ BEDSIDE. ALARMS CHECKED. Addendum: 03/23/19 at 1743 by ALEX PRAJAPATI RT Amended: Links added.
[2019-03-23] MEDS: VANCOMYCIN 500 MG in IV D5W 100 ML IV SCH (18:00)
[2019-03-23] MEDS: COLISTIMETHATE SODIUM 100 MG in IV NS 0.9% 50 ML IV SCH (20:00)
[2019-03-23] MEDS: HYDROGEN PEROXIDE 480 ML BOTTLE TP SCH (21:00)
[2019-03-24] VITALS (8 sets, daily range): BP systolic 129–145; BP diastolic 43–70
[2019-03-24] MEDS: POLYVINYL ALCOHOL 15 ML BOTTLE EACHEYE SCH ×5 (00:09→23:16)
[2019-03-24] MEDS: METOCLOPRAMIDE HCL 10 MG TABLET GT SCH ×5 (00:10→23:16)
[2019-03-24] MEDS: BLOOD SUGAR DIAGNOSTIC 1 EACH STRIP IN SCH ×5 (00:10→23:16)
[2019-03-24] MEDS: INSULIN ASPART/LISPRO 100 UNIT/ML CARTRIDGE SQ PRN ×5 (00:11→23:17)
--- NOTE | 2019-03-24 03:05 | NUR ---
RT NOTE PT RECEIVED ON MECH VENT ON THE FOLLOWING NOTED SETTINGS. PT SX'D, MOD THICK WHITE/YELLOW SECRETIONS NOTED. NO RESP DISTRESS NOTED AT THIS TIME. VENT IS PLUGGED INTO RED OUTLET AND ALARMS ARE ON AND AUDIBLE. TRACH CARE IS DONE. AMBU BAG AND SPARE TRACH ARE AT BEDSIDE. WILL CONT TO MONITOR PT THROUGH OUT THE NIGHT.
[2019-03-24] MEDS: METRONIDAZOLE 500 MG TABLET GT SCH ×3 (05:21→21:07)
[2019-03-24] MEDS: HYDROGEN PEROXIDE 480 ML BOTTLE TP SCH ×2 (09:00→20:11)
[2019-03-24] MEDS: HYDROCODONE/APAP 5/325MG 1 EACH TABLET GT SCH ×2 (09:38→21:08)
[2019-03-24] MEDS: VIT B CMPLX 3/FA/VIT C/BIOTIN 1 TAB TABLET GT SCH (09:47)
[2019-03-24] MEDS: ZINC SULFATE 220 MG CAPSULE GT SCH (09:47)
[2019-03-24] MEDS: OMEPRAZOLE 20 MG CAPSULE.DR GT SCH (09:47)
[2019-03-24] MEDS: FLUDROCORTISONE 0.1 MG TABLET PO SCH (09:47)
[2019-03-24] MEDS: ASCORBIC ACID 500 MG TABLET GT SCH (09:47)
[2019-03-24] MEDS: PROSOURCE / PROSTAT (PYXIS) 30 ML UDC GT SCH ×3 (09:47→17:44)
[2019-03-24] MEDS: SUCRALFATE 1 G/10 ML UDC GT SCH (09:48)
[2019-03-24] MEDS: METOPROLOL TARTRATE 50 MG TABLET GT SCH ×2 (09:48→21:08)
[2019-03-24] MEDS: LACTOBACILLUS RHAMNOSUS GG 1 EACH CAP.SPRINK GT SCH ×2 (09:48→17:00)
[2019-03-24] MEDS: BASAGLAR U SQ SCH ×2 (09:49→21:08)
[2019-03-24] MEDS: Z GUARD REMEDY 4 OZ OINT TP SCH ×2 (10:05→21:09)
[2019-03-24] MEDS: TRIAMCINOLONE ACETONIDE 0.1% CR 15 GM TUBE TP SCH ×2 (10:05→21:09)
[2019-03-24] MEDS: ZINC OXIDE 56.7 GM TUBE TP SCH ×2 (10:05→21:09)
[2019-03-24] MEDS: NYSTATIN CREAM 15 GM TUBE TP SCH ×2 (10:05→21:09)
[2019-03-24] MEDS: BACI/NEOM/POLY B OINT PKT 1 UDPKT PACKET TP SCH ×6 (10:05→21:09)
[2019-03-24] MEDS: HYDROGEL DRESSING 90 GM TUBE TP SCH ×5 (10:05→21:09)
[2019-03-24] MEDS: CHLORHEXIDINE GLUCONATE 4% 118 ML BOTTLE TP SCH (10:05)
[2019-03-24] MEDS: ZINC OXIDE 30 GM TUBE TP SCH ×2 (10:05→21:09)
[2019-03-24] MEDS: HYDROCORTISONE 1% CREAM 28.35 GM TUBE TP SCH ×2 (10:05→21:09)
[2019-03-24] MEDS: KETOCONAZOLE SHAMPOO 120 ML BOTTLE TP SCH (13:00)
[2019-03-24] MEDS: NEPRO 1,000 ML BOTTLE GT PRN (13:03)
[2019-03-24] MEDS: COLISTIMETHATE SODIUM 100 MG in IV NS 0.9% 50 ML IV SCH (20:29)
[2019-03-25] VITALS (7 sets, daily range): BP systolic 120–157; BP diastolic 58–90
[2019-03-25] MEDS: POLYVINYL ALCOHOL 15 ML BOTTLE EACHEYE SCH ×4 (05:33→23:18)
[2019-03-25] MEDS: METOCLOPRAMIDE HCL 10 MG TABLET GT SCH ×4 (05:33→23:28)
[2019-03-25] MEDS: BLOOD SUGAR DIAGNOSTIC 1 EACH STRIP IN SCH ×4 (05:33→23:19)
[2019-03-25] MEDS: METRONIDAZOLE 500 MG TABLET GT SCH ×3 (05:33→21:04)
[2019-03-25] MEDS: INSULIN ASPART/LISPRO 100 UNIT/ML CARTRIDGE SQ PRN ×4 (05:34→23:26)
[2019-03-25] MEDS: NEPRO 1,000 ML BOTTLE GT PRN (05:34)
[2019-03-25] MEDS: BACI/NEOM/POLY B OINT PKT 1 UDPKT PACKET TP SCH ×5 (09:00→21:07)
[2019-03-25] MEDS: HYDROCORTISONE 1% CREAM 28.35 GM TUBE TP SCH ×2 (09:00→21:08)
[2019-03-25] MEDS: BASAGLAR U SQ SCH ×2 (09:00→21:14)
[2019-03-25] MEDS: HYDROGEN PEROXIDE 480 ML BOTTLE TP SCH ×2 (09:00→21:08)
--- NOTE | 2019-03-25 09:40 | NUR ---
Education has been provided to staff and pt's family regarding infection control such as wearing of PPEs and proper handwashing. Pt on contact and droplet precautions. Addendum: 03/25/19 at 0945 by GUILLERMO BEARD RN Late entry for 03/22/19 Pt on contact and droplet isolations for CRE and Acinetobacter baumannii in sputum.
[2019-03-25] MEDS: LACTOBACILLUS RHAMNOSUS GG 1 EACH CAP.SPRINK GT SCH ×2 (09:58→17:00)
[2019-03-25] MEDS: SUCRALFATE 1 G/10 ML UDC GT SCH (09:58)
[2019-03-25] MEDS: FLUDROCORTISONE 0.1 MG TABLET PO SCH (09:59)
[2019-03-25] MEDS: PROSOURCE / PROSTAT (PYXIS) 30 ML UDC GT SCH ×3 (09:59→17:00)
[2019-03-25] MEDS: VIT B CMPLX 3/FA/VIT C/BIOTIN 1 TAB TABLET GT SCH (09:59)
[2019-03-25] MEDS: OMEPRAZOLE 20 MG CAPSULE.DR GT SCH (09:59)
[2019-03-25] MEDS: METOPROLOL TARTRATE 50 MG TABLET GT SCH ×2 (09:59→21:04)
[2019-03-25] MEDS: ASCORBIC ACID 500 MG TABLET GT SCH (09:59)
[2019-03-25] MEDS: HYDROCODONE/APAP 5/325MG 1 EACH TABLET GT SCH ×2 (09:59→21:05)
[2019-03-25] MEDS: ZINC SULFATE 220 MG CAPSULE GT SCH (09:59)
[2019-03-25] MEDS: CHLORHEXIDINE GLUCONATE 4% 118 ML BOTTLE TP SCH (10:30)
[2019-03-25] MEDS: Z GUARD REMEDY 4 OZ OINT TP SCH ×2 (10:30→21:07)
[2019-03-25] MEDS: NYSTATIN CREAM 15 GM TUBE TP SCH ×2 (10:30→21:07)
[2019-03-25] MEDS: ZINC OXIDE 56.7 GM TUBE TP SCH ×2 (10:30→21:08)
[2019-03-25] MEDS: HYDROGEL DRESSING 90 GM TUBE TP SCH ×5 (10:30→21:06)
[2019-03-25] MEDS: ZINC OXIDE 30 GM TUBE TP SCH ×2 (10:30→21:07)
[2019-03-25] MEDS: TRIAMCINOLONE ACETONIDE 0.1% CR 15 GM TUBE TP SCH ×2 (10:30→21:08)
--- NOTE | 2019-03-25 11:00 | NUR ---
Seen by Dr Beltran. He ordered to apply Betadine and Mepilex on left lower leg wound for 6 months.
--- NOTE | 2019-03-25 13:50 | NUR ---
Seen by LOPEZ Phipps. She ordered to increase Lantus insulin to 10 units SC q 12 hours. Notified daughter.
[2019-03-25] MEDS: POVIDONE-IODINE OINT 28.4 GM TUBE TP SCH (17:00)
[2019-03-25] MEDS: VANCOMYCIN 500 MG in IV D5W 100 ML IV SCH (17:00)
[2019-03-25] MEDS: COLISTIMETHATE SODIUM 100 MG in IV NS 0.9% 50 ML IV SCH (19:45)
[2019-03-26] VITALS (8 sets, daily range): BP systolic 120–152; BP diastolic 56–87
[2019-03-26] MEDS: METOCLOPRAMIDE HCL 10 MG TABLET GT SCH ×4 (05:55→23:33)
[2019-03-26] MEDS: NEPRO 1,000 ML BOTTLE GT PRN (05:55)
[2019-03-26] MEDS: BLOOD SUGAR DIAGNOSTIC 1 EACH STRIP IN SCH ×4 (05:55→23:33)
[2019-03-26] MEDS: METRONIDAZOLE 500 MG TABLET GT SCH ×3 (05:55→21:00)
[2019-03-26] MEDS: POLYVINYL ALCOHOL 15 ML BOTTLE EACHEYE SCH ×4 (05:55→23:33)
[2019-03-26] MEDS: INSULIN ASPART/LISPRO 100 UNIT/ML CARTRIDGE SQ PRN ×4 (05:57→23:35)
[2019-03-26] MEDS: HYDROCODONE/APAP 5/325MG 1 EACH TABLET GT SCH ×2 (09:00→21:00)
[2019-03-26] MEDS: BASAGLAR U SQ SCH ×2 (09:00→21:00)
[2019-03-26] MEDS: ZINC SULFATE 220 MG CAPSULE GT SCH (09:00)
[2019-03-26] MEDS: LACTOBACILLUS RHAMNOSUS GG 1 EACH CAP.SPRINK GT SCH ×2 (09:00→17:43)
[2019-03-26] MEDS: VIT B CMPLX 3/FA/VIT C/BIOTIN 1 TAB TABLET GT SCH (09:00)
[2019-03-26] MEDS: ASCORBIC ACID 500 MG TABLET GT SCH (09:00)
[2019-03-26] MEDS: METOPROLOL TARTRATE 50 MG TABLET GT SCH ×2 (09:00→21:00)
[2019-03-26] MEDS: CHLORHEXIDINE GLUCONATE 4% 118 ML BOTTLE TP SCH (09:00)
[2019-03-26] MEDS: NYSTATIN CREAM 15 GM TUBE TP SCH ×2 (09:00→21:00)
[2019-03-26] MEDS: HYDROCORTISONE 1% CREAM 28.35 GM TUBE TP SCH ×2 (09:00→21:00)
[2019-03-26] MEDS: TRIAMCINOLONE ACETONIDE 0.1% CR 15 GM TUBE TP SCH ×2 (09:00→21:00)
[2019-03-26] MEDS: POVIDONE-IODINE OINT 28.4 GM TUBE TP SCH (09:00)
[2019-03-26] MEDS: ZINC OXIDE 30 GM TUBE TP SCH (09:00)
[2019-03-26] MEDS: ZINC OXIDE 56.7 GM TUBE TP SCH ×2 (09:00→21:00)
[2019-03-26] MEDS: Z GUARD REMEDY 4 OZ OINT TP SCH ×2 (09:00→21:00)
[2019-03-26] MEDS: FLUDROCORTISONE 0.1 MG TABLET PO SCH (09:00)
[2019-03-26] MEDS: HYDROGEL DRESSING 90 GM TUBE TP SCH ×5 (09:00→21:00)
[2019-03-26] MEDS: BACI/NEOM/POLY B OINT PKT 1 UDPKT PACKET TP SCH ×4 (09:00→21:00)
[2019-03-26] MEDS: PROSOURCE / PROSTAT (PYXIS) 30 ML UDC GT SCH ×3 (09:00→17:37)
[2019-03-26] MEDS: OMEPRAZOLE 20 MG CAPSULE.DR GT SCH (09:00)
[2019-03-26] MEDS: HYDROGEN PEROXIDE 480 ML BOTTLE TP SCH ×2 (09:50→21:00)
[2019-03-26] MEDS: SUCRALFATE 1 G/10 ML UDC GT SCH (09:58)
[2019-03-26] MEDS: ERGOCALCIFEROL (VITAMIN D 2) 50,000 UNIT CAPSULE GT SCH (09:59)
[2019-03-26] MEDS: COLISTIMETHATE SODIUM 100 MG in IV NS 0.9% 50 ML IV SCH (20:46)
[2019-03-27] VITALS (8 sets, daily range): BP systolic 110–156; BP diastolic 63–94
[2019-03-27] MEDS: NEPRO 1,000 ML BOTTLE GT PRN
--- NOTE | 2019-03-27 05:03 | NUR ---
PT REC'D TRACHED ON [facility] VENT ON AC MODE ON NOTED SETTINGS. NO RESP DISTRESS OR SOB NOTED. TRACH PATENT AND SECURED. PT SX'D FOR THICK MOD AMT OF PALE YELLOW SECRETIONS. ALARMS ARE SET AND AUDIBLE. VENT PLUGGED INTO RED OUTLET. AMBU BAG BEDSIDE. Addendum: 03/27/19 at 0504 by MANISH DOMINGUEZ RT Amended: Links added.
[2019-03-27] MEDS: BLOOD SUGAR DIAGNOSTIC 1 EACH STRIP IN SCH ×3 (05:18→17:55)
[2019-03-27] MEDS: METRONIDAZOLE 500 MG TABLET GT SCH ×3 (05:18→21:43)
[2019-03-27] MEDS: POLYVINYL ALCOHOL 15 ML BOTTLE EACHEYE SCH ×3 (05:18→17:55)
[2019-03-27] MEDS: METOCLOPRAMIDE HCL 10 MG TABLET GT SCH ×3 (05:18→17:55)
[2019-03-27] MEDS: INSULIN ASPART/LISPRO 100 UNIT/ML CARTRIDGE SQ PRN ×3 (05:20→17:56)
[2019-03-27] MEDS: METOPROLOL TARTRATE 50 MG TABLET GT SCH ×2 (09:00→21:43)
[2019-03-27] MEDS: Z GUARD REMEDY 4 OZ OINT TP SCH ×2 (09:00→21:45)
[2019-03-27] MEDS: TRIAMCINOLONE ACETONIDE 0.1% CR 15 GM TUBE TP SCH ×2 (09:00→21:45)
[2019-03-27] MEDS: HYDROGEL DRESSING 90 GM TUBE TP SCH ×5 (09:00→21:45)
[2019-03-27] MEDS: HYDROCORTISONE 1% CREAM 28.35 GM TUBE TP SCH ×2 (09:00→21:45)
[2019-03-27] MEDS: HYDROGEN PEROXIDE 480 ML BOTTLE TP SCH ×2 (09:00→21:45)
[2019-03-27] MEDS: POVIDONE-IODINE OINT 28.4 GM TUBE TP SCH (09:00)
[2019-03-27] MEDS: CHLORHEXIDINE GLUCONATE 4% 118 ML BOTTLE TP SCH (09:00)
[2019-03-27] MEDS: BACI/NEOM/POLY B OINT PKT 1 UDPKT PACKET TP SCH ×4 (09:00→21:45)
[2019-03-27] MEDS: ZINC OXIDE 56.7 GM TUBE TP SCH ×2 (09:00→21:45)
[2019-03-27] MEDS: BASAGLAR U SQ SCH ×2 (09:00→21:45)
[2019-03-27] MEDS: NYSTATIN CREAM 15 GM TUBE TP SCH ×2 (09:00→21:45)
[2019-03-27] MEDS: SUCRALFATE 1 G/10 ML UDC GT SCH (09:29)
[2019-03-27] MEDS: PROSOURCE / PROSTAT (PYXIS) 30 ML UDC GT SCH ×3 (09:29→17:15)
[2019-03-27] MEDS: ZINC SULFATE 220 MG CAPSULE GT SCH (09:30)
[2019-03-27] MEDS: ASCORBIC ACID 500 MG TABLET GT SCH (09:30)
[2019-03-27] MEDS: OMEPRAZOLE 20 MG CAPSULE.DR GT SCH (09:31)
[2019-03-27] MEDS: FLUDROCORTISONE 0.1 MG TABLET PO SCH (09:31)
[2019-03-27] MEDS: LACTOBACILLUS RHAMNOSUS GG 1 EACH CAP.SPRINK GT SCH ×2 (09:36→17:15)
[2019-03-27] MEDS: VIT B CMPLX 3/FA/VIT C/BIOTIN 1 TAB TABLET GT SCH (09:36)
[2019-03-27] MEDS: HYDROCODONE/APAP 5/325MG 1 EACH TABLET GT SCH ×2 (09:36→21:44)
[2019-03-27] MEDS: COLISTIMETHATE SODIUM 100 MG in IV NS 0.9% 50 ML IV SCH (20:44)
[2019-03-28] VITALS (8 sets, daily range): BP systolic 115–158; BP diastolic 53–83
[2019-03-28] MEDS: POLYVINYL ALCOHOL 15 ML BOTTLE EACHEYE SCH ×4 (00:34→18:07)
[2019-03-28] MEDS: METOCLOPRAMIDE HCL 10 MG TABLET GT SCH ×4 (00:34→18:07)
[2019-03-28] MEDS: BLOOD SUGAR DIAGNOSTIC 1 EACH STRIP IN SCH ×4 (00:34→18:28)
[2019-03-28] MEDS: INSULIN ASPART/LISPRO 100 UNIT/ML CARTRIDGE SQ PRN ×4 (00:37→18:30)
[2019-03-28] MEDS: METRONIDAZOLE 500 MG TABLET GT SCH ×3 (05:18→21:15)
[2019-03-28] MEDS: NEPRO 1,000 ML BOTTLE GT PRN (05:19)
[2019-03-28] MEDS: HYDROGEN PEROXIDE 480 ML BOTTLE TP SCH ×2 (09:00→20:57)
[2019-03-28] MEDS ORDERED: [UNRECOGNIZED DRUG - OTHER] TP SCH (09:00)
[2019-03-28] MEDS: METOPROLOL TARTRATE 50 MG TABLET GT SCH ×2 (09:00→21:17)
[2019-03-28] MEDS: LACTOBACILLUS RHAMNOSUS GG 1 EACH CAP.SPRINK GT SCH ×2 (09:38→17:00)
[2019-03-28] MEDS: SUCRALFATE 1 G/10 ML UDC GT SCH (09:38)
[2019-03-28] MEDS: VIT B CMPLX 3/FA/VIT C/BIOTIN 1 TAB TABLET GT SCH (09:39)
[2019-03-28] MEDS: OMEPRAZOLE 20 MG CAPSULE.DR GT SCH (09:40)
[2019-03-28] MEDS: HYDROCODONE/APAP 5/325MG 1 EACH TABLET GT SCH ×2 (09:40→21:17)
[2019-03-28] MEDS: ASCORBIC ACID 500 MG TABLET GT SCH (09:40)
[2019-03-28] MEDS: PROSOURCE / PROSTAT (PYXIS) 30 ML UDC GT SCH ×3 (09:40→17:00)
[2019-03-28] MEDS: FLUDROCORTISONE 0.1 MG TABLET PO SCH (09:40)
[2019-03-28] MEDS: ZINC SULFATE 220 MG CAPSULE GT SCH (09:40)
[2019-03-28] MEDS: BASAGLAR U SQ SCH ×2 (09:44→21:28)
[2019-03-28] MEDS: HYDROGEL DRESSING 90 GM TUBE TP SCH ×5 (10:30→21:55)
[2019-03-28] MEDS: Z GUARD REMEDY 4 OZ OINT TP SCH ×2 (10:30→21:55)
[2019-03-28] MEDS: TRIAMCINOLONE ACETONIDE 0.1% CR 15 GM TUBE TP SCH ×2 (10:30→21:55)
[2019-03-28] MEDS: NYSTATIN CREAM 15 GM TUBE TP SCH ×2 (10:30→21:55)
[2019-03-28] MEDS: BACI/NEOM/POLY B OINT PKT 1 UDPKT PACKET TP SCH ×4 (10:30→21:55)
[2019-03-28] MEDS: ZINC OXIDE 56.7 GM TUBE TP SCH ×2 (10:30→21:56)
[2019-03-28] MEDS: HYDROCORTISONE 1% CREAM 28.35 GM TUBE TP SCH ×2 (10:30→21:55)
[2019-03-28] MEDS: POVIDONE-IODINE OINT 28.4 GM TUBE TP SCH (10:30)
--- NOTE | 2019-03-28 12:45 | NUR ---
Resident was picked up for dialysis. Awake,no s/s of distress. Trach secured and midline fastened with trach cloth tie. On mechanical vent, tolerating well. Perma cath on right upper chest intact, dressing dry and clean, no bleeding noted. All emergency equipment taken.
--- NOTE | 2019-03-28 16:40 | NUR ---
Resident came back from dialysis. Awake,no s/s of distress. Trach secured and midline fastened with trach cloth tie. On mechanical vent, tolerating well. GT intact and patent. Perma cath on right upper chest intact, dressing dry and clean, no bleeding noted. Transferred to bed and made comfortable. Will continue to monitor.
[2019-03-28] MEDS: VANCOMYCIN 500 MG in IV D5W 100 ML IV SCH (17:58)
--- NOTE | 2019-03-28 20:00 | NUR ---
GARRY NOTES Seen by Joan Phipps NP, with new order: Nizoral 2% cream, apply to rashes BID, noted and carried out. Addendum: 03/28/19 at 2350 by VALERIO SANTACRUZ RN Family at bedside and made aware of new order.
[2019-03-28] MEDS: COLISTIMETHATE SODIUM 100 MG in IV NS 0.9% 50 ML IV SCH (20:53)
[2019-03-29] VITALS (8 sets, daily range): BP systolic 138–158; BP diastolic 56–85
[2019-03-29] MEDS: BLOOD SUGAR DIAGNOSTIC 1 EACH STRIP IN SCH ×4 (00:07→17:58)
[2019-03-29] MEDS: METOCLOPRAMIDE HCL 10 MG TABLET GT SCH ×4 (00:07→17:58)
[2019-03-29] MEDS: POLYVINYL ALCOHOL 15 ML BOTTLE EACHEYE SCH ×4 (00:07→17:58)
[2019-03-29] MEDS: INSULIN ASPART/LISPRO 100 UNIT/ML CARTRIDGE SQ PRN ×4 (00:09→18:00)
[2019-03-29] MEDS: METRONIDAZOLE 500 MG TABLET GT SCH (05:00)
[2019-03-29] MEDS: HYDROGEN PEROXIDE 480 ML BOTTLE TP SCH ×2 (09:00→21:32)
[2019-03-29] MEDS: KETOCONAZOLE 2% CREAM 15 GM TUBE TP SCH ×2 (09:00→17:00)
[2019-03-29] MEDS: ZINC OXIDE 56.7 GM TUBE TP SCH ×2 (09:00→21:33)
[2019-03-29] MEDS: BACI/NEOM/POLY B OINT PKT 1 UDPKT PACKET TP SCH ×4 (09:00→21:32)
[2019-03-29] MEDS: VIT B CMPLX 3/FA/VIT C/BIOTIN 1 TAB TABLET GT SCH (09:51)
[2019-03-29] MEDS: SUCRALFATE 1 G/10 ML UDC GT SCH (09:51)
[2019-03-29] MEDS: LACTOBACILLUS RHAMNOSUS GG 1 EACH CAP.SPRINK GT SCH ×2 (09:51→17:58)
[2019-03-29] MEDS: ASCORBIC ACID 500 MG TABLET GT SCH (09:52)
[2019-03-29] MEDS: ZINC SULFATE 220 MG CAPSULE GT SCH (09:52)
[2019-03-29] MEDS: OMEPRAZOLE 20 MG CAPSULE.DR GT SCH (09:52)
[2019-03-29] MEDS: HYDROCODONE/APAP 5/325MG 1 EACH TABLET GT SCH ×2 (09:52→21:32)
[2019-03-29] MEDS: FLUDROCORTISONE 0.1 MG TABLET PO SCH (09:52)
[2019-03-29] MEDS: PROSOURCE / PROSTAT (PYXIS) 30 ML UDC GT SCH ×3 (09:52→17:58)
[2019-03-29] MEDS: BASAGLAR U SQ SCH ×2 (10:00→21:00)
[2019-03-29] MEDS: METOPROLOL TARTRATE 50 MG TABLET GT SCH ×2 (10:00→21:31)
[2019-03-29] MEDS: Z GUARD REMEDY 4 OZ OINT TP SCH ×2 (10:30→21:33)
[2019-03-29] MEDS: POVIDONE-IODINE OINT 28.4 GM TUBE TP SCH (10:30)
[2019-03-29] MEDS: NYSTATIN CREAM 15 GM TUBE TP SCH ×2 (10:30→21:32)
[2019-03-29] MEDS: TRIAMCINOLONE ACETONIDE 0.1% CR 15 GM TUBE TP SCH ×2 (10:30→21:32)
[2019-03-29] MEDS: HYDROGEL DRESSING 90 GM TUBE TP SCH ×5 (10:30→21:32)
[2019-03-29] MEDS: NEPRO 1,000 ML BOTTLE GT PRN (12:24)
[2019-03-30] VITALS (8 sets, daily range): BP systolic 98–187; BP diastolic 52–86
[2019-03-30] MEDS: INSULIN ASPART/LISPRO 100 UNIT/ML CARTRIDGE SQ PRN ×4 (01:03→17:53)
[2019-03-30] MEDS: METOCLOPRAMIDE HCL 10 MG TABLET GT SCH ×5 (05:58→23:59)
[2019-03-30] MEDS: POLYVINYL ALCOHOL 15 ML BOTTLE EACHEYE SCH ×5 (05:58→23:59)
[2019-03-30] MEDS: BLOOD SUGAR DIAGNOSTIC 1 EACH STRIP IN SCH ×5 (05:58→23:59)
[2019-03-30] MEDS: ZINC OXIDE 56.7 GM TUBE TP SCH ×2 (09:00→22:00)
[2019-03-30] MEDS: BACI/NEOM/POLY B OINT PKT 1 UDPKT PACKET TP SCH ×4 (09:00→22:00)
[2019-03-30] MEDS: OMEPRAZOLE 20 MG CAPSULE.DR GT SCH (09:00)
[2019-03-30] MEDS: KETOCONAZOLE 2% CREAM 15 GM TUBE TP SCH ×2 (09:00→17:52)
[2019-03-30] MEDS: ZINC SULFATE 220 MG CAPSULE GT SCH (09:00)
[2019-03-30] MEDS: VIT B CMPLX 3/FA/VIT C/BIOTIN 1 TAB TABLET GT SCH (09:00)
[2019-03-30] MEDS: HYDROGEL DRESSING 90 GM TUBE TP SCH ×5 (09:00→22:00)
[2019-03-30] MEDS: FLUDROCORTISONE 0.1 MG TABLET PO SCH (09:00)
[2019-03-30] MEDS: PROSOURCE / PROSTAT (PYXIS) 30 ML UDC GT SCH ×3 (09:00→17:52)
[2019-03-30] MEDS: POVIDONE-IODINE OINT 28.4 GM TUBE TP SCH (09:00)
[2019-03-30] MEDS: SUCRALFATE 1 G/10 ML UDC GT SCH (09:00)
[2019-03-30] MEDS: BASAGLAR U SQ SCH ×2 (09:00→21:24)
[2019-03-30] MEDS: HYDROCODONE/APAP 5/325MG 1 EACH TABLET GT SCH ×2 (09:00→21:11)
[2019-03-30] MEDS: Z GUARD REMEDY 4 OZ OINT TP SCH ×2 (09:00→22:00)
[2019-03-30] MEDS: TRIAMCINOLONE ACETONIDE 0.1% CR 15 GM TUBE TP SCH ×2 (09:00→22:00)
[2019-03-30] MEDS: ASCORBIC ACID 500 MG TABLET GT SCH (09:00)
[2019-03-30] MEDS: METOPROLOL TARTRATE 50 MG TABLET GT SCH ×2 (09:00→21:11)
[2019-03-30] MEDS: NYSTATIN CREAM 15 GM TUBE TP SCH ×2 (09:00→22:00)
[2019-03-30] MEDS: LACTOBACILLUS RHAMNOSUS GG 1 EACH CAP.SPRINK GT SCH ×2 (09:00→17:52)
[2019-03-30] MEDS: HYDROGEN PEROXIDE 480 ML BOTTLE TP SCH ×2 (09:28→21:00)
--- NOTE | 2019-03-30 13:57 | NUR ---
Notified Dr. Dia patient's rashes is not improving with current treatment. Asked MD if scraping can be done and who can do it. According to Dr. Dia, if can be done by Infectious disease nurse. Notified RENATE Bhandari she said she will do it in the morning. Patient is out for dialysis.
--- NOTE | 2019-03-30 14:36 | NUR ---
RADHA contacted and spoke with pt.'s daughter, Christine Bravo to introduce herself as the new Subacute RADHA. Christine was receptive to speaking with RADHA and stated "It's a pleasure to meet you". RADHA invited Christine to attend the IDT meeting being held this Monday, April 01, 2019 from 12:30 pm-1:30pm. Christine expressed that she cannot make it however her sister, Adrienne Bravo should be reached at [phone] to participate in IDT meeting via phone call/speaker phone.
--- NOTE | 2019-03-30 14:44 | NUR ---
RADHA contacted and spoke with pt.'s daughter, Callie Eaton to introduce herself as the new Subacute RADHA. Callie was receptive to speaking with RADHA and stated "It's so nice to meet you". RADHA invited Callie to attend the IDT meeting this Monday, April 01, 2019 from 12:30 pm-1:30 pm. Callie stated that she will be able to attend the IDT meeting and would arrive at 1 pm. Addendum: 03/31/19 at 1519 by EDGAR GARCIA Note is on the wrong patient profile.
--- NOTE | 2019-03-30 17:00 | NUR ---
Resident returned back from dialysis, in stable condition awake with eyes open. Patient on mechanical ventilator with current setting well tolerated. RT checked ventilator, setting and alarm. No s/s of distress. Dialysis access in the R upper chest intact with clean dressing, no bleeding. Will continue to monitor.
--- NOTE | 2019-03-30 17:27 | NUR ---
RT NOTES TRACH TUBE IN PLACE, PATENT, AND SECURED WITH TRACH TIE. ALARMS ON AND AUDIBLE. VENT PLUGGED IN TO RED OUTLET. BACK UP TRACH AND AMBU BAG BY THE BEDSIDE. PT LEFT FACILITY FOR DIALYSIS AT 1230. RETURNED AT 1645. NO SIGNS OF ANY DISTRESS. Addendum: 03/30/19 at 1729 by ONEL VEGA RT Amended: Links added.
[2019-03-30] MEDS: NEPRO 1,000 ML BOTTLE GT PRN (17:52)
--- NOTE | 2019-03-30 18:00 | NUR ---
Scraping kit requested from the lab per ID request. Endorsed to incoming shift.
--- NOTE | 2019-03-30 20:07 | NUR ---
RECEIVED TRACH PT ON MECH VENT WITH NOTED SETTINGS PER MD ORDERS. TRACH IS PATENT AND SECURED. COMMUNICATION COORDINATOR DONE. SX DONE PRN. VENT PLUGGED INTO RED OUTLET. ALARMS ON AND AUDIBLE. AMBU BAG @ BEDSIDE. NO RESP DISTRESS AT THIS TIME. WILL CONT TO MONITOR PT.
[2019-03-31] VITALS (7 sets, daily range): BP systolic 136–167; BP diastolic 58–98
[2019-03-31] MEDS: POLYVINYL ALCOHOL 15 ML BOTTLE EACHEYE SCH ×3 (05:54→18:46)
[2019-03-31] MEDS: BLOOD SUGAR DIAGNOSTIC 1 EACH STRIP IN SCH ×3 (05:54→18:46)
[2019-03-31] MEDS: METOCLOPRAMIDE HCL 10 MG TABLET GT SCH ×3 (05:54→18:46)
[2019-03-31] MEDS: INSULIN ASPART/LISPRO 100 UNIT/ML CARTRIDGE SQ PRN ×4 (05:55→18:47)
[2019-03-31] MEDS: POVIDONE-IODINE OINT 28.4 GM TUBE TP SCH (09:00)
[2019-03-31] MEDS: LACTOBACILLUS RHAMNOSUS GG 1 EACH CAP.SPRINK GT SCH ×2 (09:00→17:00)
[2019-03-31] MEDS: SUCRALFATE 1 G/10 ML UDC GT SCH (09:00)
[2019-03-31] MEDS: VIT B CMPLX 3/FA/VIT C/BIOTIN 1 TAB TABLET GT SCH (09:00)
[2019-03-31] MEDS: OMEPRAZOLE 20 MG CAPSULE.DR GT SCH (09:00)
[2019-03-31] MEDS: BASAGLAR U SQ SCH ×2 (09:00→21:30)
[2019-03-31] MEDS: HYDROGEL DRESSING 90 GM TUBE TP SCH ×5 (09:00→21:30)
[2019-03-31] MEDS: KETOCONAZOLE SHAMPOO 120 ML BOTTLE TP SCH (09:00)
[2019-03-31] MEDS: ASCORBIC ACID 500 MG TABLET GT SCH (09:00)
[2019-03-31] MEDS: ZINC SULFATE 220 MG CAPSULE GT SCH (09:00)
[2019-03-31] MEDS: PROSOURCE / PROSTAT (PYXIS) 30 ML UDC GT SCH ×3 (09:00→17:00)
[2019-03-31] MEDS: HYDROCODONE/APAP 5/325MG 1 EACH TABLET GT SCH ×2 (09:00→21:29)
[2019-03-31] MEDS: BACI/NEOM/POLY B OINT PKT 1 UDPKT PACKET TP SCH ×4 (09:00→21:30)
[2019-03-31] MEDS: ZINC OXIDE 56.7 GM TUBE TP SCH ×2 (09:00→21:30)
[2019-03-31] MEDS: KETOCONAZOLE 2% CREAM 15 GM TUBE TP SCH ×2 (09:00→17:00)
[2019-03-31] MEDS: NYSTATIN CREAM 15 GM TUBE TP SCH ×2 (09:00→21:30)
[2019-03-31] MEDS: METOPROLOL TARTRATE 50 MG TABLET GT SCH ×2 (09:00→21:29)
[2019-03-31] MEDS: TRIAMCINOLONE ACETONIDE 0.1% CR 15 GM TUBE TP SCH ×2 (09:00→21:30)
[2019-03-31] MEDS: Z GUARD REMEDY 4 OZ OINT TP SCH ×2 (09:00→21:30)
[2019-03-31] MEDS: FLUDROCORTISONE 0.1 MG TABLET PO SCH (09:00)
--- NOTE | 2019-03-31 11:00 | NUR ---
Received a call from [facility], said that patient's K+ level 2.4 collected on 03/30. He notified Dr. Damian who ordered to give K= bath of 3K instead of 2K. However patient's dialysis is not until tomorrow. Left a message to Dr. Dia if he wants additional K+ supplement to be given via GT for now. Also informed Dr. Dia of [facility] commercial property manager's recommendations to have a fluid restriction of 1000 cc/24 hr. and 1 Neutraphos BID due to Phosphorus 1.1, Albumin 2.9. Awaiting for call back.
[2019-03-31] MEDS: NEPRO 1,000 ML BOTTLE GT PRN (12:53)
[2019-03-31] MEDS: HYDROGEN PEROXIDE 480 ML BOTTLE TP SCH ×2 (14:30→21:30)
--- NOTE | 2019-03-31 16:10 | NUR ---
Received a verbal report from GARRY Pate [facility] and said that patient's WBC is 33.7 which was taken yesterday at dialysis center. Notified Dr. Dia of above information, awaiting for order. VS 163/90, 98.7, 100, 18, 100%.
[2019-03-31] MEDS ORDERED: POTASSIUM CHLORIDE 20 MEQ POWDER PACKET GT ONE (17:00)
--- NOTE | 2019-03-31 19:00 | NUR ---
Seen and examined by ASHLEIGH [place] given at this time.
--- NOTE | 2019-03-31 19:09 | NUR ---
Notified LOPEZ Buckley of elevated WBC 33.7, patient afebrile 98.7, 100%, 18, P 100, 163/90. According to Ina to send blood culture to be drawn from his dialysis access. Resident will have dialysis in AM, endorsed.
--- NOTE | 2019-03-31 22:03 | NUR ---
Patient daughter and notified with new orders of Neutraphos 1 pkt BID ,fluid restrictions of 1000 ml/day.Blood culture for tomorrow for increased WBC.Also informed them skin scraping was done today.
[2019-04-01] VITALS: BP 144/71
[2019-04-01] MEDS: METOCLOPRAMIDE HCL 10 MG TABLET GT SCH ×5 (00:17→23:22)
[2019-04-01] MEDS: POLYVINYL ALCOHOL 15 ML BOTTLE EACHEYE SCH ×5 (00:17→23:22)
[2019-04-01] MEDS: BLOOD SUGAR DIAGNOSTIC 1 EACH STRIP IN SCH ×5 (00:17→23:22)
[2019-04-01] MEDS: INSULIN ASPART/LISPRO 100 UNIT/ML CARTRIDGE SQ PRN ×5 (00:21→23:32)
--- NOTE | 2019-04-01 03:38 | NUR ---
RT NOTE PT REC'D TRACHED ON [facility] VENT ON AC MODE. NO RESP DISTRESS NOTED OR SOB NOTED. TRACH IS PATENT AND SECURED. ALARMS ARE SET AUDIBLE. VENT PLUGGED INTO RED OUTLET. AMBU BAG BEDSIDE. WILL CONTINUE TO MONITOR. Addendum: 04/01/19 at 0338 by MANISH DOMINGUEZ RT Amended: Links added.
[2019-04-01 04:00] VITALS: BP 139/52
[2019-04-01 06:51] LABS: CALCIUM, SERUM 8.4 mg/dL (8.5-10.1); CREATININE 3.1 mg/dL (0.6-1.3); POTASSIUM 3.8 mmol/L (3.5-5.1)
[2019-04-01 07:44] VITALS: BP 171/85
[2019-04-01] MEDS: KETOCONAZOLE 2% CREAM 15 GM TUBE TP SCH ×2 (09:00→17:52)
[2019-04-01] MEDS: SUCRALFATE 1 G/10 ML UDC GT SCH (09:00)
[2019-04-01] MEDS: HYDROGEL DRESSING 90 GM TUBE TP SCH ×5 (09:00→21:09)
[2019-04-01] MEDS: ZINC SULFATE 220 MG CAPSULE GT SCH (09:00)
[2019-04-01] MEDS: OMEPRAZOLE 20 MG CAPSULE.DR GT SCH (09:00)
[2019-04-01] MEDS: ASCORBIC ACID 500 MG TABLET GT SCH (09:00)
[2019-04-01] MEDS: LACTOBACILLUS RHAMNOSUS GG 1 EACH CAP.SPRINK GT SCH ×2 (09:00→17:52)
[2019-04-01] MEDS: BACI/NEOM/POLY B OINT PKT 1 UDPKT PACKET TP SCH ×4 (09:00→21:10)
[2019-04-01] MEDS: TRIAMCINOLONE ACETONIDE 0.1% CR 15 GM TUBE TP SCH ×2 (09:00→21:09)
[2019-04-01] MEDS: ZINC OXIDE 56.7 GM TUBE TP SCH ×2 (09:00→21:10)
[2019-04-01] MEDS: NYSTATIN CREAM 15 GM TUBE TP SCH ×2 (09:00→21:09)
[2019-04-01] MEDS: METOPROLOL TARTRATE 50 MG TABLET GT SCH ×2 (09:00→21:09)
[2019-04-01] MEDS: FLUDROCORTISONE 0.1 MG TABLET PO SCH (09:00)
[2019-04-01] MEDS: BASAGLAR U SQ SCH ×2 (09:00→21:26)
[2019-04-01] MEDS: HYDROCODONE/APAP 5/325MG 1 EACH TABLET GT SCH ×2 (09:00→21:32)
[2019-04-01] MEDS: Z GUARD REMEDY 4 OZ OINT TP SCH ×2 (09:00→21:10)
[2019-04-01] MEDS: PROSOURCE / PROSTAT (PYXIS) 30 ML UDC GT SCH ×3 (09:00→17:52)
[2019-04-01] MEDS: VIT B CMPLX 3/FA/VIT C/BIOTIN 1 TAB TABLET GT SCH (09:00)
[2019-04-01] MEDS: POVIDONE-IODINE OINT 28.4 GM TUBE TP SCH ×2 (09:00→16:00)
[2019-04-01 09:17] LABS: BASOPHILS % (AUTO) 0.2 % (0.0-2.0); HEMATOCRIT 31 % (39-51); HEMOGLOBIN 9.6 g/dL (13.5-17.5); LYMPHOCYTES # (AUTO) 3.1 /CMM (0.8-4.8); LYMPHOCYTES % (AUTO) 10.9 % (20.0-44.0); MEAN CORPUSCULAR HGB CONC 31 g/dl (31.0-36.0); MEAN CORPUSCULAR VOLUME 95 fL (80-96); MONOCYTES # (AUTO) 2.2 /CMM (0.1-1.30); MONOCYTES % (AUTO) 7.6 % (2.0-12.0); NEUTROPHILS # (AUTO) 15.2 /CMM (1.8-8.9); NEUTROPHILS % (AUTO) 53.2 % (43.0-81.0); PLATELET COUNT (AUTO) 500 /CMM (150-450); RED BLOOD CELL COUNT(AUTO) 3.26 MIL/uL (4.5-6.0); WHITE BLOOD COUNT (AUTO) 28.5 K/uL (4.3-11.0)
[2019-04-01 09:21] LABS: EOSINOPHILS % (AUTO) 28.1 % (0.0-6.0)
[2019-04-01] MEDS: NEUTRA PHOS 1 POWD.PACKET GT SCH ×2 (10:46→17:52)
--- NOTE | 2019-04-01 10:55 | NUR ---
Spoke with Arley from the lab and made aware that patient has an order for blood culture but specimen should be taken from the dialysis access site. Ryan from [facility] also made aware of the order to obtain specimen from patient's dialysis access site. Specimen container will be sent with the patient.
--- NOTE | 2019-04-01 11:10 | NUR ---
Left a message to Dr. Dia regarding CBC and BMP result, with WBC of 28.5. Awaiting for MD to call back.
--- NOTE | 2019-04-01 11:35 | NUR ---
Spoke with Dr. Madsen, surgeon asking when to remove staple and care for the stump. New order given by Dr. Madsen to change daily dressing in the stump and remove stump richar on March. Order carried out.
[2019-04-01 11:36] LABS: BAND % (MANUAL) 1 % (0.0-5.0); LYMPHOCYTES % (MANUAL) 11 % (16-48); MONOCYTES % (MANUAL) 6 % (0-11.0); NEUTROPHILS % (MANUAL) 56 (42-76)
[2019-04-01 11:37] LABS: EOSINOPHILS % (MANUAL) 25 % (0-4)
[2019-04-01 11:38] LABS: MYELOCYTES % 1 % (0-0)
[2019-04-01 12:00] VITALS: BP 172/98
--- NOTE | 2019-04-01 12:10 | NUR ---
Notified CORPORATE ACCOUNTING MANAGER Ina regarding CBC result, WBC 28.5. Blood culture was ordered and specimen bottle will send with patient when he leaves for dialysis today. Per CORPORATE ACCOUNTING MANAGER Ina will keep patient off antibiotic unless he spikes fever. T 98.8
--- NOTE | 2019-04-01 14:30 | NUR ---
INTERDISCIPLINARY PLAN OF CARE CONFERENCE was held today. Resident's daughter Adrienne participated in the meeting via phone conference. Dr. Rocha and the interdisciplinary team discussed the current plan of care in detail. Current orders as well as treatments and medications were reviewed. Family acknowledged that they are being updated by staff on a daily basis of new orders. Adrienne was made aware that Dr. Madsen ordered to remove staple in the R AKA after a month and daily dressing change after painting it with Betadine. No s/s of infection in the surgical site. Skin scraping result is pending and will take 5 to 7 days before result is available. She appreciates the information provided. Dr. Rocha ordered Ca and Phos level on Thursday for follow-up due to low Phos level that was drawn from dialysis center.
--- NOTE | 2019-04-01 15:00 | NUR ---
Resident's daughter Adrienne asked during IDT meeting the condition of patient's wound in the sacral are. The wound itself has no shown any progress. It was suggested that when visiting to take a look at wound photos to have a better perspective of how big the wounds are. She said she will.
[2019-04-01 18:55] VITALS: BP 165/90
[2019-04-01 20:00] VITALS: BP 117/55
[2019-04-01] MEDS: HYDROGEN PEROXIDE 480 ML BOTTLE TP SCH (21:24)
[2019-04-01] MEDS: NEPRO 1,000 ML BOTTLE GT PRN (22:25)
[2019-04-02] VITALS (8 sets, daily range): BP systolic 140–154; BP diastolic 66–92
[2019-04-02] MEDS: POLYVINYL ALCOHOL 15 ML BOTTLE EACHEYE SCH ×3 (05:33→17:50)
[2019-04-02] MEDS: BLOOD SUGAR DIAGNOSTIC 1 EACH STRIP IN SCH ×3 (05:33→17:50)
[2019-04-02] MEDS: METOCLOPRAMIDE HCL 10 MG TABLET GT SCH ×3 (05:33→17:50)
[2019-04-02] MEDS: INSULIN ASPART/LISPRO 100 UNIT/ML CARTRIDGE SQ PRN ×3 (05:35→17:51)
[2019-04-02] MEDS: METOPROLOL TARTRATE 50 MG TABLET GT SCH ×2 (09:00→20:45)
[2019-04-02] MEDS: TRIAMCINOLONE ACETONIDE 0.1% CR 15 GM TUBE TP SCH ×2 (09:00→20:46)
[2019-04-02] MEDS: POVIDONE-IODINE OINT 28.4 GM TUBE TP SCH ×2 (09:00→15:30)
[2019-04-02] MEDS: KETOCONAZOLE 2% CREAM 15 GM TUBE TP SCH ×2 (09:00→17:14)
[2019-04-02] MEDS: Z GUARD REMEDY 4 OZ OINT TP SCH ×2 (09:00→20:46)
[2019-04-02] MEDS: NYSTATIN CREAM 15 GM TUBE TP SCH ×2 (09:00→20:46)
[2019-04-02] MEDS: ZINC OXIDE 56.7 GM TUBE TP SCH ×2 (09:00→20:47)
[2019-04-02] MEDS: HYDROGEL DRESSING 90 GM TUBE TP SCH ×5 (09:00→20:46)
[2019-04-02] MEDS: BACI/NEOM/POLY B OINT PKT 1 UDPKT PACKET TP SCH ×4 (09:00→20:46)
[2019-04-02] MEDS: SUCRALFATE 1 G/10 ML UDC GT SCH (09:42)
[2019-04-02] MEDS: LACTOBACILLUS RHAMNOSUS GG 1 EACH CAP.SPRINK GT SCH ×2 (09:42→17:00)
[2019-04-02] MEDS: ERGOCALCIFEROL (VITAMIN D 2) 50,000 UNIT CAPSULE GT SCH (09:42)
[2019-04-02] MEDS: OMEPRAZOLE 20 MG CAPSULE.DR GT SCH (09:45)
[2019-04-02] MEDS: VIT B CMPLX 3/FA/VIT C/BIOTIN 1 TAB TABLET GT SCH (09:47)
[2019-04-02] MEDS: NEUTRA PHOS 1 POWD.PACKET GT SCH ×2 (09:47→17:00)
[2019-04-02] MEDS: ZINC SULFATE 220 MG CAPSULE GT SCH (09:48)
[2019-04-02] MEDS: PROSOURCE / PROSTAT (PYXIS) 30 ML UDC GT SCH ×3 (09:48→17:00)
[2019-04-02] MEDS: FLUDROCORTISONE 0.1 MG TABLET PO SCH (09:48)
[2019-04-02] MEDS: ASCORBIC ACID 500 MG TABLET GT SCH (09:48)
[2019-04-02] MEDS: HYDROCODONE/APAP 5/325MG 1 EACH TABLET GT SCH ×2 (09:49→20:45)
[2019-04-02] MEDS: BASAGLAR U SQ SCH ×2 (09:55→21:20)
[2019-04-02] MEDS: HYDROGEN PEROXIDE 480 ML BOTTLE TP SCH ×2 (15:42→21:00)
[2019-04-02] MEDS: NEPRO 1,000 ML BOTTLE GT PRN (17:45)
--- NOTE | 2019-04-02 18:06 | NUR ---
RT END OF THE SHIFT REPORT PT 58 Y OLD MALE REMAIN TRACH'D MURIEL # 8 ON [facility]. VENT ON NOTED SETTINGS, NO RESP DISTRESS NOTED OR SOB T/O SHIFT. EQUAL CHEST RISE NOTED. B/S BILATERALLY RHONCHI SUX'S FOR MOD. AMT OF DWYER SECRETIONS. TRACH IS PATENT AND SECURED. ALARMS ARE SET AND FUNCTIONAL. VENT PLUGGED INTO RED OUTLET. AMBU BAG BEDSIDE. TRACH CARE DONE, INNER CANNULA, HME CHANGED REPORT WILL PASS TO PM SHIFT. Addendum: 04/02/19 at 1806 by SHARMILA PERALES RT Amended: Links added.
[2019-04-03] VITALS (7 sets, daily range): BP systolic 128–153; BP diastolic 58–82
[2019-04-03] MEDS: BLOOD SUGAR DIAGNOSTIC 1 EACH STRIP IN SCH ×4 (00:34→17:33)
[2019-04-03] MEDS: POLYVINYL ALCOHOL 15 ML BOTTLE EACHEYE SCH ×4 (00:34→17:33)
[2019-04-03] MEDS: METOCLOPRAMIDE HCL 10 MG TABLET GT SCH ×4 (00:34→17:33)
[2019-04-03] MEDS: INSULIN ASPART/LISPRO 100 UNIT/ML CARTRIDGE SQ PRN ×4 (00:36→17:35)
--- NOTE | 2019-04-03 05:14 | NUR ---
PT REC'D TRACHED ON [facility] VENT ON AC MODE. NO RESP DISTRESS OR SOB NOTED. TRACH IS PATENT AND SECURED. SX'D FOR MOD AMT OF PALE YELLOW SECRETIONS. ALARMS ARE SET AND AUDIBLE. VENT PLUGGED INTO RED OUTLET. AMBU BAG BEDSIDE. Addendum: 04/03/19 at 0514 by MANISH DOMINGUEZ RT Amended: Links added.
[2019-04-03] MEDS: LACTOBACILLUS RHAMNOSUS GG 1 EACH CAP.SPRINK GT SCH ×2 (09:26→17:33)
[2019-04-03] MEDS: METOPROLOL TARTRATE 50 MG TABLET GT SCH ×2 (09:26→20:52)
[2019-04-03] MEDS: SUCRALFATE 1 G/10 ML UDC GT SCH (09:26)
[2019-04-03] MEDS: VIT B CMPLX 3/FA/VIT C/BIOTIN 1 TAB TABLET GT SCH (09:30)
[2019-04-03] MEDS: PROSOURCE / PROSTAT (PYXIS) 30 ML UDC GT SCH ×3 (09:30→17:33)
[2019-04-03] MEDS: HYDROCODONE/APAP 5/325MG 1 EACH TABLET GT SCH ×2 (09:30→20:53)
[2019-04-03] MEDS: ASCORBIC ACID 500 MG TABLET GT SCH (09:30)
[2019-04-03] MEDS: NEUTRA PHOS 1 POWD.PACKET GT SCH ×2 (09:30→17:33)
[2019-04-03] MEDS: OMEPRAZOLE 20 MG CAPSULE.DR GT SCH (09:30)
[2019-04-03] MEDS: ZINC SULFATE 220 MG CAPSULE GT SCH (09:30)
[2019-04-03] MEDS: FLUDROCORTISONE 0.1 MG TABLET PO SCH (09:30)
[2019-04-03] MEDS: POVIDONE-IODINE OINT 28.4 GM TUBE TP SCH ×2 (09:31→15:30)
[2019-04-03] MEDS: BASAGLAR U SQ SCH ×2 (09:31→20:54)
[2019-04-03] MEDS: TRIAMCINOLONE ACETONIDE 0.1% CR 15 GM TUBE TP SCH ×2 (09:31→20:54)
[2019-04-03] MEDS: HYDROGEL DRESSING 90 GM TUBE TP SCH ×5 (09:32→20:55)
[2019-04-03] MEDS: BACI/NEOM/POLY B OINT PKT 1 UDPKT PACKET TP SCH ×4 (09:33→20:55)
[2019-04-03] MEDS: NYSTATIN CREAM 15 GM TUBE TP SCH ×2 (09:33→20:55)
[2019-04-03] MEDS: Z GUARD REMEDY 4 OZ OINT TP SCH ×2 (09:34→20:55)
[2019-04-03] MEDS: ZINC OXIDE 56.7 GM TUBE TP SCH ×2 (09:34→20:55)
[2019-04-03] MEDS: KETOCONAZOLE 2% CREAM 15 GM TUBE TP SCH ×2 (09:34→17:33)
[2019-04-03] MEDS: HYDROGEN PEROXIDE 480 ML BOTTLE TP SCH ×2 (10:30→21:04)
[2019-04-03] MEDS: NEPRO 1,000 ML BOTTLE GT PRN (17:35)
--- NOTE | 2019-04-03 20:56 | NUR ---
RT PATIENT WAS RECEIVED ON CONTINUOUS VENT SUPPORT ON NOTED VENT SETTINGS. PATIENT STABLE AT THIS TIME . TRACH TUBE PATENT AND SECURED. WILL CONTINUE TO MONITOR Addendum: 04/03/19 at 2055 by ANTONI SANTACRUZ RT Amended: Links added.
[2019-04-04] VITALS (7 sets, daily range): BP systolic 135–157; BP diastolic 63–79
[2019-04-04] MEDS: BLOOD SUGAR DIAGNOSTIC 1 EACH STRIP IN SCH ×4 (00:55→17:49)
[2019-04-04] MEDS: METOCLOPRAMIDE HCL 10 MG TABLET GT SCH ×5 (00:55→23:49)
[2019-04-04] MEDS: POLYVINYL ALCOHOL 15 ML BOTTLE EACHEYE SCH ×5 (00:55→23:47)
[2019-04-04] MEDS: INSULIN ASPART/LISPRO 100 UNIT/ML CARTRIDGE SQ PRN ×4 (00:59→17:50)
[2019-04-04 07:38] LABS: CALCIUM, SERUM 8.9 mg/dL (8.5-10.1); PHOSPHORUS 1.3 mg/dL (2.5-4.9)
[2019-04-04] MEDS: HYDROGEN PEROXIDE 480 ML BOTTLE TP SCH ×2 (09:24→21:23)
[2019-04-04] MEDS: SUCRALFATE 1 G/10 ML UDC GT SCH (09:30)
[2019-04-04] MEDS: NEUTRA PHOS 1 POWD.PACKET GT SCH ×2 (09:30→17:25)
[2019-04-04] MEDS: METOPROLOL TARTRATE 50 MG TABLET GT SCH ×2 (09:30→21:22)
[2019-04-04] MEDS: VIT B CMPLX 3/FA/VIT C/BIOTIN 1 TAB TABLET GT SCH (09:30)
[2019-04-04] MEDS: HYDROCODONE/APAP 5/325MG 1 EACH TABLET GT SCH ×2 (09:30→21:25)
[2019-04-04] MEDS: LACTOBACILLUS RHAMNOSUS GG 1 EACH CAP.SPRINK GT SCH ×2 (09:30→17:25)
[2019-04-04] MEDS: OMEPRAZOLE 20 MG CAPSULE.DR GT SCH (09:31)
[2019-04-04] MEDS: ASCORBIC ACID 500 MG TABLET GT SCH (09:31)
[2019-04-04] MEDS: FLUDROCORTISONE 0.1 MG TABLET PO SCH (09:31)
[2019-04-04] MEDS: PROSOURCE / PROSTAT (PYXIS) 30 ML UDC GT SCH ×3 (09:31→17:26)
[2019-04-04] MEDS: ZINC SULFATE 220 MG CAPSULE GT SCH (09:31)
[2019-04-04] MEDS: BASAGLAR U SQ SCH ×2 (09:32→21:38)
[2019-04-04] MEDS: ZINC OXIDE 56.7 GM TUBE TP SCH ×2 (10:30→21:23)
[2019-04-04] MEDS: Z GUARD REMEDY 4 OZ OINT TP SCH ×2 (10:30→21:23)
[2019-04-04] MEDS: BACI/NEOM/POLY B OINT PKT 1 UDPKT PACKET TP SCH ×4 (10:30→21:23)
[2019-04-04] MEDS: POVIDONE-IODINE OINT 28.4 GM TUBE TP SCH ×2 (10:30)
[2019-04-04] MEDS: KETOCONAZOLE 2% CREAM 15 GM TUBE TP SCH ×2 (10:30→17:26)
[2019-04-04] MEDS: HYDROGEL DRESSING 90 GM TUBE TP SCH ×5 (10:30→21:23)
[2019-04-04] MEDS: NYSTATIN CREAM 15 GM TUBE TP SCH ×2 (10:30→21:23)
[2019-04-04] MEDS: TRIAMCINOLONE ACETONIDE 0.1% CR 15 GM TUBE TP SCH ×2 (10:30→21:23)
--- NOTE | 2019-04-04 15:50 | NUR ---
Dr Damian aware of lab results. He ordered to give Calcitriol 0.25 mcg GT daily, Vit D2 39574 units GT q Thursday, increase Neutraphos to 2 packets GT BID. He also ordered to DC Waylon Pfeiffer, and MOM. Notified pt's daughter.
[2019-04-04] MEDS: CALCITRIOL ORAL SOLUTION 1 MCG/ML NG SCH (16:00)
--- NOTE | 2019-04-04 17:00 | NUR ---
RT NOTES TRACH TUBE IN PLACE, PATENT, AND SECURED WITH TRACH TIE. ALARMS ON AND AUDIBLE. VENT PLUGGED IN TO RED OUTLET. AMBU BAG AND BACK UP TRACH BY THE BEDSIDE. NO SIGNS OF ANY DISTRESS. PATIENT LEFT FACILITY FOR DIALYSIS. Addendum: 04/04/19 at 1701 by ONEL VEGA RT Amended: Links added.
[2019-04-05] VITALS: BP 152/67
[2019-04-05] MEDS: BLOOD SUGAR DIAGNOSTIC 1 EACH STRIP IN SCH ×4 (00:08→17:50)
[2019-04-05] MEDS: INSULIN ASPART/LISPRO 100 UNIT/ML CARTRIDGE SQ PRN ×5 (00:10→20:49)
[2019-04-05 04:00] VITALS: BP 163/83
--- NOTE | 2019-04-05 04:14 | NUR ---
PT REMAIN TRACHED ON [facility] VENT ON CHARTED SETTINGS, NO RESP DISTRESS NOTED T/O SHIFT. ALARMS ARE SET AND AUDIBLE.VENT PLUGGED INTO RED OUTLET. AMBU BAG AND SPARE TRACH BEDSIDE. Addendum: 04/05/19 at 0439 by CARLOS YEH RT Amended: Links added.
[2019-04-05] MEDS: POLYVINYL ALCOHOL 15 ML BOTTLE EACHEYE SCH ×3 (05:54→17:50)
[2019-04-05] MEDS: METOCLOPRAMIDE HCL 10 MG TABLET GT SCH ×3 (05:55→17:50)
[2019-04-05] MEDS: NEPRO 1,000 ML BOTTLE GT PRN (06:57)
[2019-04-05 08:00] VITALS: BP 179/75
[2019-04-05] MEDS: HYDROGEN PEROXIDE 480 ML BOTTLE TP SCH ×2 (09:00→20:26)
[2019-04-05] MEDS: CALCITRIOL ORAL SOLUTION 1 MCG/ML NG SCH (09:00)
[2019-04-05] MEDS: HYDROCODONE/APAP 5/325MG 1 EACH TABLET GT SCH ×2 (09:00→20:25)
[2019-04-05] MEDS: POVIDONE-IODINE OINT 28.4 GM TUBE TP SCH ×2 (09:00→15:30)
[2019-04-05] MEDS: PROSOURCE / PROSTAT (PYXIS) 30 ML UDC GT SCH ×3 (09:00→17:49)
[2019-04-05] MEDS: VIT B CMPLX 3/FA/VIT C/BIOTIN 1 TAB TABLET GT SCH (09:00)
[2019-04-05] MEDS: ZINC SULFATE 220 MG CAPSULE GT SCH (09:00)
[2019-04-05] MEDS: BASAGLAR U SQ SCH ×2 (09:00→20:47)
[2019-04-05] MEDS: ASCORBIC ACID 500 MG TABLET GT SCH (09:00)
[2019-04-05] MEDS: BACI/NEOM/POLY B OINT PKT 1 UDPKT PACKET TP SCH ×4 (09:00→20:26)
[2019-04-05] MEDS: NEUTRA PHOS 1 POWD.PACKET GT SCH ×2 (09:00→17:49)
[2019-04-05] MEDS: Z GUARD REMEDY 4 OZ OINT TP SCH ×2 (09:00→20:27)
[2019-04-05] MEDS: OMEPRAZOLE 20 MG CAPSULE.DR GT SCH (09:00)
[2019-04-05] MEDS: NYSTATIN CREAM 15 GM TUBE TP SCH ×2 (09:00→20:26)
[2019-04-05] MEDS: ZINC OXIDE 56.7 GM TUBE TP SCH ×2 (09:00→20:27)
[2019-04-05] MEDS: TRIAMCINOLONE ACETONIDE 0.1% CR 15 GM TUBE TP SCH ×2 (09:00→20:26)
[2019-04-05] MEDS: KETOCONAZOLE 2% CREAM 15 GM TUBE TP SCH ×2 (09:00→17:49)
[2019-04-05] MEDS: HYDROGEL DRESSING 90 GM TUBE TP SCH ×5 (09:00→20:26)
--- NOTE | 2019-04-05 09:00 | NUR ---
Seen and examined by Dr. Rocha, no new order given.
[2019-04-05] MEDS: LACTOBACILLUS RHAMNOSUS GG 1 EACH CAP.SPRINK GT SCH ×2 (09:59→17:49)
[2019-04-05] MEDS: SUCRALFATE 1 G/10 ML UDC GT SCH (09:59)
[2019-04-05] MEDS: METOPROLOL TARTRATE 50 MG TABLET GT SCH ×2 (10:00→20:23)
[2019-04-05] MEDS: CLONIDINE HCL 0.1 MG TABLET GT PRN (10:02)
--- NOTE | 2019-04-05 11:33 | NUR ---
Patrol Lady section of MDS completed (1st Quarter) completed. Resident's family including daughters: Christine Bravo [phone] & Adrienne Toledoto [phone] and Janet (Cypriot-speaking only) are involved and very supportive. Resident continues to be in vegetative state and is Full Code.
--- NOTE | 2019-04-05 15:07 | NUR ---
RNA rechecked height and noted at 61 inches.
[2019-04-05 19:54] VITALS: BP 139/101
[2019-04-05 20:00] VITALS: BP 139/101
--- NOTE | 2019-04-05 20:27 | NUR ---
SCHEDULED PAIN MEDICATION NORCO 5-325 MG VIA GTUBE ADMINISTER TO RESIDENT WILL MONITOR RELIEF AND COMFORT.
[2019-04-05 20:45] VITALS: BP 139/101
--- NOTE | 2019-04-05 20:45 | NUR ---
BLOOD SUGAR CHECK AT 203
--- NOTE | 2019-04-05 23:56 | NUR ---
BLOOD SUGAR CHECK AT 175
[2019-04-06] VITALS (7 sets, daily range): BP systolic 101–164; BP diastolic 59–89
[2019-04-06] MEDS: BLOOD SUGAR DIAGNOSTIC 1 EACH STRIP IN SCH ×5 (00:01→23:40)
[2019-04-06] MEDS: METOCLOPRAMIDE HCL 10 MG TABLET GT SCH ×5 (00:01→23:40)
[2019-04-06] MEDS: NEPRO 1,000 ML BOTTLE GT PRN (01:16)
[2019-04-06] MEDS: POLYVINYL ALCOHOL 15 ML BOTTLE EACHEYE SCH ×5 (05:28→23:40)
[2019-04-06] MEDS: INSULIN ASPART/LISPRO 100 UNIT/ML CARTRIDGE SQ PRN ×4 (05:44→23:42)
[2019-04-06] MEDS: NYSTATIN CREAM 15 GM TUBE TP SCH ×2 (09:00→21:55)
[2019-04-06] MEDS: HYDROGEL DRESSING 90 GM TUBE TP SCH ×5 (09:00→21:55)
[2019-04-06] MEDS: POVIDONE-IODINE OINT 28.4 GM TUBE TP SCH ×2 (09:00→15:30)
[2019-04-06] MEDS: ZINC OXIDE 56.7 GM TUBE TP SCH ×2 (09:00→21:55)
[2019-04-06] MEDS: Z GUARD REMEDY 4 OZ OINT TP SCH ×2 (09:00→21:55)
[2019-04-06] MEDS: BACI/NEOM/POLY B OINT PKT 1 UDPKT PACKET TP SCH ×4 (09:00→21:55)
[2019-04-06] MEDS: KETOCONAZOLE 2% CREAM 15 GM TUBE TP SCH (09:00)
[2019-04-06] MEDS: TRIAMCINOLONE ACETONIDE 0.1% CR 15 GM TUBE TP SCH ×2 (09:00→21:55)
[2019-04-06] MEDS: HYDROGEN PEROXIDE 480 ML BOTTLE TP SCH ×2 (09:00→20:35)
[2019-04-06] MEDS: CALCITRIOL ORAL SOLUTION 1 MCG/ML NG SCH (09:00)
[2019-04-06] MEDS: METOPROLOL TARTRATE 50 MG TABLET GT SCH ×2 (09:19→21:39)
[2019-04-06] MEDS: SUCRALFATE 1 G/10 ML UDC GT SCH (09:19)
[2019-04-06] MEDS: ASCORBIC ACID 500 MG TABLET GT SCH (09:22)
[2019-04-06] MEDS: ZINC SULFATE 220 MG CAPSULE GT SCH (09:22)
[2019-04-06] MEDS: OMEPRAZOLE 20 MG CAPSULE.DR GT SCH (09:23)
[2019-04-06] MEDS: LACTOBACILLUS RHAMNOSUS GG 1 EACH CAP.SPRINK GT SCH ×2 (09:25→17:45)
[2019-04-06] MEDS: NEUTRA PHOS 1 POWD.PACKET GT SCH ×2 (09:25→17:45)
[2019-04-06] MEDS: VIT B CMPLX 3/FA/VIT C/BIOTIN 1 TAB TABLET GT SCH (09:29)
[2019-04-06] MEDS: HYDROCODONE/APAP 5/325MG 1 EACH TABLET GT SCH ×2 (09:30→21:39)
[2019-04-06] MEDS: PROSOURCE / PROSTAT (PYXIS) 30 ML UDC GT SCH ×3 (09:32→17:45)
[2019-04-06] MEDS: BASAGLAR U SQ SCH ×2 (09:43→21:42)
--- NOTE | 2019-04-06 10:45 | NUR ---
Seen and examined resident with new orders and carried out. Clotrimazole and Betamethasone Dipropiate cream 0.05% apply to rashes q shift x 7 days. 2% Chlorhexidine cloth to cleanse body q day x 7 days. Refer to derma with Dr. Nakul Sahu if he has privileges to visit [facility] patients.
--- NOTE | 2019-04-06 11:00 | NUR ---
Per administration Dr. Nakul Sahu (front line supervisor) has no privileges at [facility]. SW will look for front line supervisor who can see the patient.
--- NOTE | 2019-04-06 12:56 | NUR ---
BLOOD SUGAR AT 249, HELD INSULIN DOSE, PATIENT GOING TO DIALYSIS
--- NOTE | 2019-04-06 13:41 | NUR ---
12 pm- RAHDA contacted Shipping Clerk Dr. Partida office [facility] [[address] [facility] [place] [address]; [phone]] to set up apt. for pt.s exam regarding generalized rash per Dr. Skaggsians request. RADHA spoke with Krystle to schedule apt. for pt. Per Krystle, she will notify me when Renetta returns from lunch as Renetta normally schedules visits to [facility]. RADHA will await call from Krystle and/or follow-up.
--- NOTE | 2019-04-06 15:59 | NUR ---
RADHA called pt.s dentist, Dr. Almaguer office [phone] to schedule follow-up dental cleaning. RADHA was not able to reach anyone in the office. However, RADHA left a voicemail. RADHA will continue attempts to schedule apt. for pt. dental cleaning.
--- NOTE | 2019-04-06 20:22 | NUR ---
PT RCVD SARAH'D ON MECHANICAL VENT WITH CHARTED SETTINGS. SX DONE. PT TRACH IS PATENT AND SECURE. VENT PLUGGED INTO RED OUTLET. ALARMS ARE ON AND AUDIBLE. AMBU BAG AT BED SIDE. NO SOB NOTED. Addendum: 04/06/19 at 2021 by OLAMIDE LANDIN RT Amended: Links added.
[2019-04-06] MEDS: CLOTRIMAZOLE/BETAMETASONE DIPROPIONATE 15 GM TUBE TP SCH (21:55)
[2019-04-07] VITALS (9 sets, daily range): BP systolic 126–164; BP diastolic 50–93
[2019-04-07] MEDS: POLYVINYL ALCOHOL 15 ML BOTTLE EACHEYE SCH ×3 (05:47→17:33)
[2019-04-07] MEDS: BLOOD SUGAR DIAGNOSTIC 1 EACH STRIP IN SCH ×3 (05:47→17:33)
[2019-04-07] MEDS: METOCLOPRAMIDE HCL 10 MG TABLET GT SCH ×3 (05:47→17:33)
[2019-04-07] MEDS: NEPRO 1,000 ML BOTTLE GT PRN (05:47)
[2019-04-07] MEDS: INSULIN ASPART/LISPRO 100 UNIT/ML CARTRIDGE SQ PRN ×3 (05:48→17:35)
[2019-04-07] MEDS: ZINC OXIDE 56.7 GM TUBE TP SCH ×2 (09:00→21:24)
[2019-04-07] MEDS: NYSTATIN CREAM 15 GM TUBE TP SCH ×2 (09:00→21:23)
[2019-04-07] MEDS: Z GUARD REMEDY 4 OZ OINT TP SCH ×2 (09:00→21:23)
[2019-04-07] MEDS: TRIAMCINOLONE ACETONIDE 0.1% CR 15 GM TUBE TP SCH ×3 (09:00→21:23)
[2019-04-07] MEDS: HYDROGEL DRESSING 90 GM TUBE TP SCH ×5 (09:00→21:23)
[2019-04-07] MEDS: BACI/NEOM/POLY B OINT PKT 1 UDPKT PACKET TP SCH ×4 (09:00→21:23)
[2019-04-07] MEDS: CLOTRIMAZOLE/BETAMETASONE DIPROPIONATE 15 GM TUBE TP SCH ×2 (09:00→21:23)
[2019-04-07] MEDS: POVIDONE-IODINE OINT 28.4 GM TUBE TP SCH ×2 (09:00→15:30)
[2019-04-07] MEDS: KETOCONAZOLE SHAMPOO 120 ML BOTTLE TP SCH (09:00)
[2019-04-07] MEDS: HYDROGEN PEROXIDE 480 ML BOTTLE TP SCH ×2 (09:10→21:00)
[2019-04-07] MEDS: METOPROLOL TARTRATE 50 MG TABLET GT SCH ×2 (09:34→20:52)
[2019-04-07] MEDS: SUCRALFATE 1 G/10 ML UDC GT SCH (09:34)
[2019-04-07] MEDS: NEUTRA PHOS 1 POWD.PACKET GT SCH ×2 (09:34→16:49)
[2019-04-07] MEDS: LACTOBACILLUS RHAMNOSUS GG 1 EACH CAP.SPRINK GT SCH ×2 (09:34→16:49)
[2019-04-07] MEDS: VIT B CMPLX 3/FA/VIT C/BIOTIN 1 TAB TABLET GT SCH (09:34)
[2019-04-07] MEDS: ZINC SULFATE 220 MG CAPSULE GT SCH (09:37)
[2019-04-07] MEDS: PROSOURCE / PROSTAT (PYXIS) 30 ML UDC GT SCH ×3 (09:37→16:49)
[2019-04-07] MEDS: OMEPRAZOLE 20 MG CAPSULE.DR GT SCH (09:37)
[2019-04-07] MEDS: ASCORBIC ACID 500 MG TABLET GT SCH (09:37)
[2019-04-07] MEDS: CALCITRIOL ORAL SOLUTION 1 MCG/ML NG SCH (09:37)
[2019-04-07] MEDS: HYDROCODONE/APAP 5/325MG 1 EACH TABLET GT SCH ×2 (09:37→20:52)
[2019-04-07] MEDS: BASAGLAR U SQ SCH ×2 (09:39→20:53)
--- NOTE | 2019-04-07 11:36 | NUR ---
RADHA followed-up with Krystle from Manager Rn Case Dr. Partida office, [facility] [[address] [place] [address]. [place] [address]; [phone]] to set up appointment for patient care. Per Krystle, will attempt see the patient tomorrow afternoon. No specified time could be given. RADHA informed Krystle that the patient is not available from 12 noon- 5 pm as pt. receives treatment at that time. Krystle expressed understanding and stated she would inform . RADHA informed nursing station of pending dermatology appointment for pt.
--- NOTE | 2019-04-07 12:55 | NUR ---
Dr Dia came to see pt. Director Learning And Development Dr Bello was with him and they both examined pt's generalized rashes. Received order to give Celestone soluspan 1 mL IM x 1 today then Celestone soluspan 1 mL IM again in 4 days. Also received order to apply Triamcinolone cream 0.1 % topically to rashes BID. Notified pt's daughter.
--- NOTE | 2019-04-07 14:08 | NUR ---
RT NOTE PT RECEIVED ON [facility]ENT ON THE FOLLOWING NOTED SETTINGS. NO RESP DISTRESS NOTED AT THIS TIME. PT SX'D. VENT IS PLUGGED INTO RED OUTLET AND ALARMS ARE ON AND AUDIBLE. TRACH TIE AND GAUZE HAVE BEEN CHANGED. AMBU BAG AND SPARE TRACH ARE AT BEDSIDE. WILL CONT TO MONITOR PT. Addendum: 04/07/19 at 1408 by DEANGELO ORTIZ RT Amended: Links added.
[2019-04-07 14:50] LABS: BASOPHILS % (AUTO) 0.2 % (0.0-2.0); HEMATOCRIT 30 % (39-51); HEMOGLOBIN 9.4 g/dL (13.5-17.5); LYMPHOCYTES # (AUTO) 2.2 /CMM (0.8-4.8); LYMPHOCYTES % (AUTO) 9.3 % (20.0-44.0); MEAN CORPUSCULAR HGB CONC 31 g/dl (31.0-36.0); MEAN CORPUSCULAR VOLUME 98 fL (80-96); MONOCYTES # (AUTO) 1.3 /CMM (0.1-1.30); MONOCYTES % (AUTO) 5.6 % (2.0-12.0); NEUTROPHILS # (AUTO) 12.3 /CMM (1.8-8.9); NEUTROPHILS % (AUTO) 52.6 % (43.0-81.0); PLATELET COUNT (AUTO) 457 /CMM (150-450); RED BLOOD CELL COUNT(AUTO) 3.12 MIL/uL (4.5-6.0); WHITE BLOOD COUNT (AUTO) 23.4 K/uL (4.3-11.0)
--- NOTE | 2019-04-07 15:00 | NUR ---
Dr Dia said to keep pt's dermatology consult with Dr Perez.
[2019-04-07 15:11] LABS: EOSINOPHILS % (AUTO) 32.3 % (0.0-6.0)
[2019-04-07 15:24] LABS: POTASSIUM 3.9 mmol/L (3.5-5.1)
--- NOTE | 2019-04-07 15:35 | NUR ---
Celestone soluspan not covered by insurance and according to [facility] pharmacist Zeenat, [facility] does not have it. Ordered from [employer], spoke with Brendan.
[2019-04-07 15:46] LABS: EOSINOPHILS % (MANUAL) 31 % (0-4); LYMPHOCYTES % (MANUAL) 10 % (16-48); MONOCYTES % (MANUAL) 6 % (0-11.0); NEUTROPHILS % (MANUAL) 53 (42-76)
--- NOTE | 2019-04-07 15:53 | NUR ---
M.S. 04/07/19 11 am- RADHA followed- up with Dr. Almaguer office [phone] to schedule follow-up dental cleaning. Dental Event Staff, Scot stated that Radha should call back at 2 pm as the dentist is out of office currently. Sw to follow-up. 2pm- RADHA followed up and spoke with Mystery at Dr. Almaguer office [phone]. Per Mystery, Dr. Austin is on vacation however, Dr. Buck will come see the patient on April 19 at 4 pm to do dental cleaning.
--- NOTE | 2019-04-07 15:57 | NUR ---
RADHA followed-up with Krystle from Nutrition Specialist Dr. Partida office, [facility] [[address] [place] [address]. [place] [address]; [phone]] to set up appointment for patient care. Per Krystle, will attempt see the patient tomorrow afternoon. No specified time could be given. RADHA informed Krystle that the patient is not available from 12 noon- 5 pm as pt. receives treatment at that time.
--- NOTE | 2019-04-07 16:02 | NUR ---
Relayed CBC, BMP results to Dr Dia. WBC improved from 28.5 to 23.4. Pt not having fevers, T 98.1 F. No new order.
--- NOTE | 2019-04-07 23:02 | NUR ---
Daughter Adrienne called and updated regarding new orders for the generalized rashes Celestone Soluspan IM and Triamcinolone 0.1% cream.Appreciative of the care were providing.
[2019-04-08] VITALS (7 sets, daily range): BP systolic 134–155; BP diastolic 51–78
[2019-04-08] MEDS: POLYVINYL ALCOHOL 15 ML BOTTLE EACHEYE SCH ×5 (00:10→23:27)
[2019-04-08] MEDS: BLOOD SUGAR DIAGNOSTIC 1 EACH STRIP IN SCH ×5 (00:10→23:27)
[2019-04-08] MEDS: METOCLOPRAMIDE HCL 10 MG TABLET GT SCH ×5 (00:10→23:27)
[2019-04-08] MEDS: INSULIN ASPART/LISPRO 100 UNIT/ML CARTRIDGE SQ PRN ×5 (00:11→23:28)
[2019-04-08] MEDS: NEPRO 1,000 ML BOTTLE GT PRN (05:29)
[2019-04-08] MEDS: CLOTRIMAZOLE/BETAMETASONE DIPROPIONATE 15 GM TUBE TP SCH ×2 (09:00→21:44)
[2019-04-08] MEDS: BASAGLAR U SQ SCH ×2 (09:00→21:18)
[2019-04-08] MEDS: NYSTATIN CREAM 15 GM TUBE TP SCH ×2 (09:00→21:44)
[2019-04-08] MEDS: Z GUARD REMEDY 4 OZ OINT TP SCH ×2 (09:00→21:44)
[2019-04-08] MEDS: CALCITRIOL ORAL SOLUTION 1 MCG/ML NG SCH (09:00)
[2019-04-08] MEDS: HYDROGEL DRESSING 90 GM TUBE TP SCH ×5 (09:00→21:43)
[2019-04-08] MEDS: POVIDONE-IODINE OINT 28.4 GM TUBE TP SCH ×2 (09:00→17:00)
[2019-04-08] MEDS: ZINC OXIDE 56.7 GM TUBE TP SCH ×2 (09:00→21:44)
[2019-04-08] MEDS: HYDROGEN PEROXIDE 480 ML BOTTLE TP SCH ×2 (09:00→21:00)
[2019-04-08] MEDS: BACI/NEOM/POLY B OINT PKT 1 UDPKT PACKET TP SCH ×4 (09:00→21:44)
[2019-04-08] MEDS: TRIAMCINOLONE ACETONIDE 0.1% CR 15 GM TUBE TP SCH ×4 (09:00→21:43)
[2019-04-08] MEDS: LACTOBACILLUS RHAMNOSUS GG 1 EACH CAP.SPRINK GT SCH ×2 (09:58→17:00)
[2019-04-08] MEDS: SUCRALFATE 1 G/10 ML UDC GT SCH (09:58)
[2019-04-08] MEDS: OMEPRAZOLE 20 MG CAPSULE.DR GT SCH (09:59)
[2019-04-08] MEDS: HYDROCODONE/APAP 5/325MG 1 EACH TABLET GT SCH ×2 (09:59→21:16)
[2019-04-08] MEDS: NEUTRA PHOS 1 POWD.PACKET GT SCH ×2 (09:59→17:00)
[2019-04-08] MEDS: VIT B CMPLX 3/FA/VIT C/BIOTIN 1 TAB TABLET GT SCH (09:59)
[2019-04-08] MEDS: ASCORBIC ACID 500 MG TABLET GT SCH (09:59)
[2019-04-08] MEDS: METOPROLOL TARTRATE 50 MG TABLET GT SCH ×2 (09:59→21:16)
[2019-04-08] MEDS: ZINC SULFATE 220 MG CAPSULE GT SCH (09:59)
[2019-04-08] MEDS: PROSOURCE / PROSTAT (PYXIS) 30 ML UDC GT SCH ×3 (09:59→17:00)
--- NOTE | 2019-04-08 15:02 | NUR ---
Informed Dr Dia that Celestone soluspan has not been given yet and according to [facility] it will be delivered today.
[2019-04-08] MEDS ORDERED: CELESTONE SOLUSPAN IM ONE (18:30)
[2019-04-09] VITALS (8 sets, daily range): BP systolic 112–146; BP diastolic 56–90
[2019-04-09] MEDS: METOCLOPRAMIDE HCL 10 MG TABLET GT SCH ×3 (06:03→17:57)
[2019-04-09] MEDS: BLOOD SUGAR DIAGNOSTIC 1 EACH STRIP IN SCH ×3 (06:03→17:57)
[2019-04-09] MEDS: POLYVINYL ALCOHOL 15 ML BOTTLE EACHEYE SCH ×3 (06:03→17:57)
[2019-04-09] MEDS: INSULIN ASPART/LISPRO 100 UNIT/ML CARTRIDGE SQ PRN ×3 (06:05→17:58)
--- NOTE | 2019-04-09 06:25 | NUR ---
Pt 0600 BS 363mg/dl given 11 units of insulin.Vital signs stable.Afebrile.Will continue to monitor.
[2019-04-09] MEDS: NEPRO 1,000 ML BOTTLE GT PRN (06:28)
[2019-04-09] MEDS: HYDROGEL DRESSING 90 GM TUBE TP SCH ×5 (09:00→21:00)
[2019-04-09] MEDS: Z GUARD REMEDY 4 OZ OINT TP SCH ×2 (09:00→21:00)
[2019-04-09] MEDS: NYSTATIN CREAM 15 GM TUBE TP SCH ×2 (09:00→21:00)
[2019-04-09] MEDS: HYDROGEN PEROXIDE 480 ML BOTTLE TP SCH ×2 (09:00→21:00)
[2019-04-09] MEDS: BACI/NEOM/POLY B OINT PKT 1 UDPKT PACKET TP SCH ×4 (09:00→21:00)
[2019-04-09] MEDS: TRIAMCINOLONE ACETONIDE 0.1% CR 15 GM TUBE TP SCH ×4 (09:00→20:59)
[2019-04-09] MEDS: POVIDONE-IODINE OINT 28.4 GM TUBE TP SCH ×2 (09:00→15:30)
[2019-04-09] MEDS: CLOTRIMAZOLE/BETAMETASONE DIPROPIONATE 15 GM TUBE TP SCH ×2 (09:00→21:00)
[2019-04-09] MEDS: ZINC OXIDE 56.7 GM TUBE TP SCH ×2 (09:00→21:00)
[2019-04-09] MEDS: LACTOBACILLUS RHAMNOSUS GG 1 EACH CAP.SPRINK GT SCH ×2 (09:57→17:57)
[2019-04-09] MEDS: SUCRALFATE 1 G/10 ML UDC GT SCH (09:57)
[2019-04-09] MEDS: BASAGLAR U SQ SCH ×2 (09:58→21:04)
[2019-04-09] MEDS: ZINC SULFATE 220 MG CAPSULE GT SCH (09:58)
[2019-04-09] MEDS: OMEPRAZOLE 20 MG CAPSULE.DR GT SCH (09:58)
[2019-04-09] MEDS: ASCORBIC ACID 500 MG TABLET GT SCH (09:58)
[2019-04-09] MEDS: NEUTRA PHOS 1 POWD.PACKET GT SCH ×2 (09:58→17:57)
[2019-04-09] MEDS: METOPROLOL TARTRATE 50 MG TABLET GT SCH ×2 (09:58→20:45)
[2019-04-09] MEDS: HYDROCODONE/APAP 5/325MG 1 EACH TABLET GT SCH ×2 (09:58→20:47)
[2019-04-09] MEDS: VIT B CMPLX 3/FA/VIT C/BIOTIN 1 TAB TABLET GT SCH (09:58)
[2019-04-09] MEDS: CALCITRIOL ORAL SOLUTION 1 MCG/ML NG SCH (09:58)
[2019-04-09] MEDS: PROSOURCE / PROSTAT (PYXIS) 30 ML UDC GT SCH ×3 (09:58→17:57)
--- NOTE | 2019-04-09 10:08 | NUR ---
Notified Dr. Dia that resident's BS is trending high and WBC remain elevated despite not having fever. Per MD he will review BS and medications.
[2019-04-10] VITALS (7 sets, daily range): BP systolic 125–154; BP diastolic 53–80
[2019-04-10] MEDS: INSULIN ASPART/LISPRO 100 UNIT/ML CARTRIDGE SQ PRN ×4 (00:03→17:54)
[2019-04-10] MEDS: POLYVINYL ALCOHOL 15 ML BOTTLE EACHEYE SCH ×4 (00:20→17:53)
[2019-04-10] MEDS: METOCLOPRAMIDE HCL 10 MG TABLET GT SCH ×4 (00:20→17:30)
[2019-04-10] MEDS: BLOOD SUGAR DIAGNOSTIC 1 EACH STRIP IN SCH ×4 (00:20→17:53)
[2019-04-10] MEDS: NEPRO 1,000 ML BOTTLE GT PRN (01:27)
[2019-04-10] MEDS: NYSTATIN CREAM 15 GM TUBE TP SCH ×2 (09:00→20:51)
[2019-04-10] MEDS: POVIDONE-IODINE OINT 28.4 GM TUBE TP SCH ×2 (09:00→15:30)
[2019-04-10] MEDS: HYDROGEN PEROXIDE 480 ML BOTTLE TP SCH ×2 (09:00→21:00)
[2019-04-10] MEDS: HYDROGEL DRESSING 90 GM TUBE TP SCH ×5 (09:00→20:51)
[2019-04-10] MEDS: TRIAMCINOLONE ACETONIDE 0.1% CR 15 GM TUBE TP SCH ×4 (09:00→20:51)
[2019-04-10] MEDS: Z GUARD REMEDY 4 OZ OINT TP SCH ×2 (09:00→20:52)
[2019-04-10] MEDS: BACI/NEOM/POLY B OINT PKT 1 UDPKT PACKET TP SCH ×4 (09:00→20:52)
[2019-04-10] MEDS: ZINC OXIDE 56.7 GM TUBE TP SCH ×2 (09:00→20:52)
[2019-04-10] MEDS: CLOTRIMAZOLE/BETAMETASONE DIPROPIONATE 15 GM TUBE TP SCH ×2 (09:00→20:51)
[2019-04-10] MEDS: SUCRALFATE 1 G/10 ML UDC GT SCH (09:18)
[2019-04-10] MEDS: LACTOBACILLUS RHAMNOSUS GG 1 EACH CAP.SPRINK GT SCH ×2 (09:18→17:30)
[2019-04-10] MEDS: NEUTRA PHOS 1 POWD.PACKET GT SCH ×2 (09:18→17:30)
[2019-04-10] MEDS: VIT B CMPLX 3/FA/VIT C/BIOTIN 1 TAB TABLET GT SCH (09:18)
[2019-04-10] MEDS: METOPROLOL TARTRATE 50 MG TABLET GT SCH ×2 (09:18→20:49)
[2019-04-10] MEDS: HYDROCODONE/APAP 5/325MG 1 EACH TABLET GT SCH ×2 (09:19→20:50)
[2019-04-10] MEDS: CALCITRIOL ORAL SOLUTION 1 MCG/ML NG SCH (09:19)
[2019-04-10] MEDS: PROSOURCE / PROSTAT (PYXIS) 30 ML UDC GT SCH ×3 (09:19→17:30)
[2019-04-10] MEDS: ZINC SULFATE 220 MG CAPSULE GT SCH (09:19)
[2019-04-10] MEDS: ASCORBIC ACID 500 MG TABLET GT SCH (09:19)
[2019-04-10] MEDS: BASAGLAR U SQ SCH ×2 (09:19→21:16)
[2019-04-10] MEDS: OMEPRAZOLE 20 MG CAPSULE.DR GT SCH (09:19)
--- NOTE | 2019-04-10 20:01 | NUR ---
RCVD TRACH PT ON MECH VENT WITH NOTED SETTINGS PER MD ORDERS. TRACH IS PATENT AND SECURED. WATER RESOURCE CONSULTANT DONE. SX DONE PRN. VENT PLUGGED INTO RED OUTLET. ALARMS ON AND AUDIBLE. AMBU BAG @ BEDSIDE. NO RESP DISTRESS AT THIS TIME. WILL CONT TO MONITOR PT.
[2019-04-11] VITALS (7 sets, daily range): BP systolic 91–154; BP diastolic 63–85
[2019-04-11] MEDS: POLYVINYL ALCOHOL 15 ML BOTTLE EACHEYE SCH ×4 (00:17→17:25)
[2019-04-11] MEDS: METOCLOPRAMIDE HCL 10 MG TABLET GT SCH ×4 (00:17→17:25)
[2019-04-11] MEDS: BLOOD SUGAR DIAGNOSTIC 1 EACH STRIP IN SCH ×4 (00:18→17:25)
[2019-04-11] MEDS: INSULIN ASPART/LISPRO 100 UNIT/ML CARTRIDGE SQ PRN ×4 (00:19→17:27)
[2019-04-11] MEDS: NEPRO 1,000 ML BOTTLE GT PRN (05:31)
[2019-04-11] MEDS: METOPROLOL TARTRATE 50 MG TABLET GT SCH ×2 (08:18→20:20)
--- NOTE | 2019-04-11 08:19 | NUR ---
LOPRESSOR NOT GIVEN AT 0900, PT'S BP 119/65 AND GOING TO DIALYSIS
[2019-04-11] MEDS: HYDROGEN PEROXIDE 480 ML BOTTLE TP SCH ×2 (09:00→21:00)
[2019-04-11] MEDS: SUCRALFATE 1 G/10 ML UDC GT SCH (09:23)
[2019-04-11] MEDS: NEUTRA PHOS 1 POWD.PACKET GT SCH ×2 (09:24→17:25)
[2019-04-11] MEDS: PROSOURCE / PROSTAT (PYXIS) 30 ML UDC GT SCH ×3 (09:24→17:25)
[2019-04-11] MEDS: CALCITRIOL ORAL SOLUTION 1 MCG/ML NG SCH (09:24)
[2019-04-11] MEDS: ZINC SULFATE 220 MG CAPSULE GT SCH (09:24)
[2019-04-11] MEDS: HYDROCODONE/APAP 5/325MG 1 EACH TABLET GT SCH ×2 (09:24→20:23)
[2019-04-11] MEDS: ASCORBIC ACID 500 MG TABLET GT SCH (09:24)
[2019-04-11] MEDS: LACTOBACILLUS RHAMNOSUS GG 1 EACH CAP.SPRINK GT SCH ×2 (09:24→17:25)
[2019-04-11] MEDS: OMEPRAZOLE 20 MG CAPSULE.DR GT SCH (09:24)
[2019-04-11] MEDS: VIT B CMPLX 3/FA/VIT C/BIOTIN 1 TAB TABLET GT SCH (09:24)
[2019-04-11] MEDS: BASAGLAR U SQ SCH (09:25)
[2019-04-11] MEDS: HYDROGEL DRESSING 90 GM TUBE TP SCH ×5 (09:25→20:27)
[2019-04-11] MEDS: POVIDONE-IODINE OINT 28.4 GM TUBE TP SCH (09:25)
[2019-04-11] MEDS: TRIAMCINOLONE ACETONIDE 0.1% CR 15 GM TUBE TP SCH ×4 (09:26→20:23)
[2019-04-11] MEDS: NYSTATIN CREAM 15 GM TUBE TP SCH ×2 (09:28→20:28)
[2019-04-11] MEDS: Z GUARD REMEDY 4 OZ OINT TP SCH ×2 (09:29→20:28)
[2019-04-11] MEDS: ZINC OXIDE 56.7 GM TUBE TP SCH ×2 (09:29→20:28)
[2019-04-11] MEDS: CLOTRIMAZOLE/BETAMETASONE DIPROPIONATE 15 GM TUBE TP SCH ×2 (09:29→20:28)
[2019-04-11] MEDS: BACI/NEOM/POLY B OINT PKT 1 UDPKT PACKET TP SCH ×2 (09:29→20:28)
--- NOTE | 2019-04-11 12:55 | NUR ---
TRANS PORT TEAM HERE TO TAKE PT. FOR DIALYSIS WITH NO MECHANICAL VENT AND NO AMBU BAG. THEY TOOK OUR MECHANICAL VENT AND AMBU BAG WITH SUB. ACUTE CASER RESPONSIBILITIES, I TRY TO EXPLAIN THE TRANSPORT TEAM THAT THEY SHOULD BRING THEIR OWN SUPPLIES AND VENT, BUT I WAS TOLD THAT THEY HAVE BEEN DOING THIS FOR A LONG TIME AND, I EXPLAIN RISK AND FACTORS, SPECIALLY IF VENT IS ON HOSPITAL SET UP NOT TRANSPORT, AND DIAL IN OXYGEN IS NOT PROPER. ALSO EXPLAINED THE PT. SAFETY THAT VENT RUNNING ON BATTERY AND THEY DO NOT HAVE BACK UP POWER FOR IT. BUT THEY STILL TOOK THE MACHINE. RN'S AT THE BEDSIDE. BIANCA ADKINS ACUTE DIRECTOR IN THE UNIT AND NOTIFIED. SHE SAID ITS OK WE HAVE BEEN DOING THIS, SINCE SHE STARTED, ALSO FOR LONG TIME. Addendum: 04/11/19 at 1443 by SHARMILA PERALES RT Amended: Links added.
--- NOTE | 2019-04-11 14:09 | NUR ---
RADHA got a call from 's office [phone] (pt.'s dentist) informing RADHA, that patient would be seen by Dr. Buck at 4:45pm on April 19 instead of the original time agreed 4 pm. RADHA verified and confirmed the patient is available to have teeth cleaning done April 19 4:45 pm. Patient's family and nursing were notified of change.
--- NOTE | 2019-04-11 18:00 | NUR ---
Pt came back from dialysis. BP 150/85 HR 106 T 98.0 R 18 O2 sat 98%. Pt appears comfortable, no respiratory distress noted. RT Jose Luis checked on pt and made sure vent is properly connected and has the correct settings. Ambubag at bedside.
[2019-04-12] MEDS: POLYVINYL ALCOHOL 15 ML BOTTLE EACHEYE SCH ×4 (00:29→17:44)
[2019-04-12] MEDS: BLOOD SUGAR DIAGNOSTIC 1 EACH STRIP IN SCH ×4 (00:29→18:08)
[2019-04-12] MEDS: METOCLOPRAMIDE HCL 10 MG TABLET GT SCH ×4 (00:29→17:44)
[2019-04-12] MEDS: INSULIN ASPART/LISPRO 100 UNIT/ML CARTRIDGE SQ PRN ×4 (00:30→18:10)
[2019-04-12 01:03] VITALS: BP 149/93
[2019-04-12] MEDS: NEPRO 1,000 ML BOTTLE GT PRN (05:43)
[2019-04-12 06:25] VITALS: BP 149/82
[2019-04-12 08:00] VITALS: BP 158/85
[2019-04-12] MEDS: TRIAMCINOLONE ACETONIDE 0.1% CR 15 GM TUBE TP SCH ×4 (09:00→20:23)
[2019-04-12] MEDS: CLOTRIMAZOLE/BETAMETASONE DIPROPIONATE 15 GM TUBE TP SCH ×2 (09:00→20:23)
[2019-04-12] MEDS: POVIDONE-IODINE OINT 28.4 GM TUBE TP SCH ×2 (09:00)
[2019-04-12] MEDS: NYSTATIN CREAM 15 GM TUBE TP SCH ×2 (09:00→20:23)
[2019-04-12] MEDS: Z GUARD REMEDY 4 OZ OINT TP SCH ×2 (09:00→20:23)
[2019-04-12] MEDS: HYDROGEL DRESSING 90 GM TUBE TP SCH ×5 (09:00→20:23)
[2019-04-12] MEDS: LACTOBACILLUS RHAMNOSUS GG 1 EACH CAP.SPRINK GT SCH ×2 (09:19→17:42)
[2019-04-12] MEDS: METOPROLOL TARTRATE 50 MG TABLET GT SCH ×2 (09:19→20:13)
[2019-04-12] MEDS: SUCRALFATE 1 G/10 ML UDC GT SCH (09:19)
[2019-04-12] MEDS: OMEPRAZOLE 20 MG CAPSULE.DR GT SCH (09:20)
[2019-04-12] MEDS: ZINC SULFATE 220 MG CAPSULE GT SCH (09:20)
[2019-04-12] MEDS: PROSOURCE / PROSTAT (PYXIS) 30 ML UDC GT SCH ×3 (09:20→17:42)
[2019-04-12] MEDS: [UNRECOGNIZED DRUG - OTHER] SQ SCH ×2 (09:20→20:14)
[2019-04-12] MEDS: HYDROCODONE/APAP 5/325MG 1 EACH TABLET GT SCH ×2 (09:20→20:14)
[2019-04-12] MEDS: VIT B CMPLX 3/FA/VIT C/BIOTIN 1 TAB TABLET GT SCH (09:20)
[2019-04-12] MEDS: CALCITRIOL ORAL SOLUTION 1 MCG/ML NG SCH (09:20)
[2019-04-12] MEDS: NEUTRA PHOS 1 POWD.PACKET GT SCH ×2 (09:20→17:42)
[2019-04-12] MEDS: ASCORBIC ACID 500 MG TABLET GT SCH (09:20)
[2019-04-12] MEDS: HYDROGEN PEROXIDE 480 ML BOTTLE TP SCH ×2 (09:27→21:00)
--- NOTE | 2019-04-12 15:17 | NUR ---
RADHA contacted and spoke with Augusta from assembly adjuster, Dr. Partida office [phone] to schedule a dermatology appointment for pt.s generalized rash as Dr. Perez was not able to see the pt. on 04/08/19. Dr. Partida availability clashes with the patients Dialysis treatment that happens every Thursday, Thursday, Thursday 12pm-5pm. Per Augusta, she would like RADHA to fax :[phone] over the pt.s face sheet and availability so she can set up an appointment that works for both Dr. Perez and the patient. RADHA faxed over the face sheet to [phone] and will await confirmation of appointment from Augusta.
--- NOTE | 2019-04-12 15:36 | NUR ---
SW contacted patients responsible alliance party, Adrienne Bravo [phone] to invite her to attend IDT meeting being held this Monday, April 15, 2019 at 12:30-1:30pm. Per Adrienne, her and the patients , Janet will be able to participate via phone conference. SW will inform the interdisciplinary team of their participation. Per Adrienne's request, RADHA introduced herself to Janet (Welsh speaking only) over the phone and built rapport by educating Janet on SW's role and that SW is available to support Jamila with short term counseling, facilitating conversations with medical staff, monthly support group, and connecting patient with additional resources as needed and more. Janet expressed being glad to have a social service coordinator that is able to communicate effectively with her in Welsh and looks forward to meeting SW in person.
[2019-04-12] MEDS ORDERED: CELESTONE SOLUSPAN IM ONE (18:00)
[2019-04-12 18:19] VITALS: BP 128/82
[2019-04-12 20:34] VITALS: BP 137/75
[2019-04-12 20:56] VITALS: BP 137/75
[2019-04-13] VITALS (8 sets, daily range): BP systolic 146–167; BP diastolic 66–90
[2019-04-13] MEDS: POLYVINYL ALCOHOL 15 ML BOTTLE EACHEYE SCH ×4 (00:04→18:08)
[2019-04-13] MEDS: METOCLOPRAMIDE HCL 10 MG TABLET GT SCH ×4 (00:04→18:08)
[2019-04-13] MEDS: BLOOD SUGAR DIAGNOSTIC 1 EACH STRIP IN SCH ×4 (00:05→18:00)
[2019-04-13] MEDS: INSULIN ASPART/LISPRO 100 UNIT/ML CARTRIDGE SQ PRN ×4 (00:08→18:01)
[2019-04-13] MEDS: NEPRO 1,000 ML BOTTLE GT PRN (05:29)
[2019-04-13] MEDS: CALCITRIOL ORAL SOLUTION 1 MCG/ML NG SCH (09:00)
[2019-04-13] MEDS: OMEPRAZOLE 20 MG CAPSULE.DR GT SCH (09:00)
[2019-04-13] MEDS: HYDROCODONE/APAP 5/325MG 1 EACH TABLET GT SCH ×2 (09:00→20:43)
[2019-04-13] MEDS: LACTOBACILLUS RHAMNOSUS GG 1 EACH CAP.SPRINK GT SCH ×2 (09:00→17:00)
[2019-04-13] MEDS: NEUTRA PHOS 1 POWD.PACKET GT SCH ×2 (09:00→17:00)
[2019-04-13] MEDS: PROSOURCE / PROSTAT (PYXIS) 30 ML UDC GT SCH ×3 (09:00→17:00)
[2019-04-13] MEDS: ASCORBIC ACID 500 MG TABLET GT SCH (09:00)
[2019-04-13] MEDS: VIT B CMPLX 3/FA/VIT C/BIOTIN 1 TAB TABLET GT SCH (09:00)
[2019-04-13] MEDS: SUCRALFATE 1 G/10 ML UDC GT SCH (09:00)
[2019-04-13] MEDS: METOPROLOL TARTRATE 50 MG TABLET GT SCH ×2 (09:00→20:42)
[2019-04-13] MEDS: Z GUARD REMEDY 4 OZ OINT TP SCH ×2 (09:00→21:28)
[2019-04-13] MEDS: ZINC SULFATE 220 MG CAPSULE GT SCH (09:00)
[2019-04-13] MEDS: NYSTATIN CREAM 15 GM TUBE TP SCH ×2 (09:00→21:28)
[2019-04-13] MEDS: CLOTRIMAZOLE/BETAMETASONE DIPROPIONATE 15 GM TUBE TP SCH (09:00)
[2019-04-13] MEDS: POVIDONE-IODINE OINT 28.4 GM TUBE TP SCH ×2 (09:00)
[2019-04-13] MEDS: [UNRECOGNIZED DRUG - OTHER] SQ SCH ×2 (09:00→21:24)
[2019-04-13] MEDS: TRIAMCINOLONE ACETONIDE 0.1% CR 15 GM TUBE TP SCH ×4 (09:00→21:25)
[2019-04-13] MEDS: HYDROGEL DRESSING 90 GM TUBE TP SCH ×5 (09:00→21:27)
[2019-04-13] MEDS: HYDROGEN PEROXIDE 480 ML BOTTLE TP SCH (21:00)
[2019-04-14] VITALS (7 sets, daily range): BP systolic 147–164; BP diastolic 62–97
[2019-04-14] MEDS: BLOOD SUGAR DIAGNOSTIC 1 EACH STRIP IN SCH ×4 (01:29→17:56)
[2019-04-14] MEDS: POLYVINYL ALCOHOL 15 ML BOTTLE EACHEYE SCH ×4 (01:29→17:46)
[2019-04-14] MEDS: INSULIN ASPART/LISPRO 100 UNIT/ML CARTRIDGE SQ PRN ×4 (01:37→17:57)
[2019-04-14] MEDS: METOCLOPRAMIDE HCL 10 MG TABLET GT SCH ×4 (06:23→17:46)
[2019-04-14] MEDS: HYDROGEL DRESSING 90 GM TUBE TP SCH ×5 (09:00→21:09)
[2019-04-14] MEDS: TRIAMCINOLONE ACETONIDE 0.1% CR 15 GM TUBE TP SCH ×4 (09:00→21:09)
[2019-04-14] MEDS: NYSTATIN CREAM 15 GM TUBE TP SCH ×2 (09:00→21:09)
[2019-04-14] MEDS: POVIDONE-IODINE OINT 28.4 GM TUBE TP SCH ×2 (09:00)
[2019-04-14] MEDS: Z GUARD REMEDY 4 OZ OINT TP SCH ×2 (09:00→21:10)
[2019-04-14] MEDS: KETOCONAZOLE SHAMPOO 120 ML BOTTLE TP SCH (09:00)
[2019-04-14] MEDS: LACTOBACILLUS RHAMNOSUS GG 1 EACH CAP.SPRINK GT SCH ×2 (09:34→17:46)
[2019-04-14] MEDS: METOPROLOL TARTRATE 50 MG TABLET GT SCH ×2 (09:34→20:25)
[2019-04-14] MEDS: SUCRALFATE 1 G/10 ML UDC GT SCH (09:34)
[2019-04-14] MEDS: NEUTRA PHOS 1 POWD.PACKET GT SCH (09:34)
[2019-04-14] MEDS: VIT B CMPLX 3/FA/VIT C/BIOTIN 1 TAB TABLET GT SCH (09:34)
[2019-04-14] MEDS: ZINC SULFATE 220 MG CAPSULE GT SCH (09:35)
[2019-04-14] MEDS: [UNRECOGNIZED DRUG - OTHER] SQ SCH ×2 (09:35→21:47)
[2019-04-14] MEDS: CALCITRIOL ORAL SOLUTION 1 MCG/ML NG SCH (09:35)
[2019-04-14] MEDS: OMEPRAZOLE 20 MG CAPSULE.DR GT SCH (09:35)
[2019-04-14] MEDS: HYDROCODONE/APAP 5/325MG 1 EACH TABLET GT SCH ×2 (09:35→20:26)
[2019-04-14] MEDS: PROSOURCE / PROSTAT (PYXIS) 30 ML UDC GT SCH ×3 (09:35→17:46)
[2019-04-14] MEDS: ASCORBIC ACID 500 MG TABLET GT SCH (09:35)
[2019-04-14] MEDS: HYDROGEN PEROXIDE 480 ML BOTTLE TP SCH ×2 (09:43→22:00)
--- NOTE | 2019-04-14 12:10 | NUR ---
Dr Dia ordered to DC Neutraphos due to phosphorus level 7.3. Addendum: 04/14/19 at 0 by GUILLERMO BEARD RN [facility] recommended to DC Neutraphos. They sent lab results.
--- NOTE | 2019-04-14 21:00 | NUR ---
Seen by LOPEZ Phipps no new orders.
[2019-04-15] VITALS (8 sets, daily range): BP systolic 146–167; BP diastolic 69–88
[2019-04-15] MEDS: POLYVINYL ALCOHOL 15 ML BOTTLE EACHEYE SCH ×5 (00:33→23:55)
[2019-04-15] MEDS: BLOOD SUGAR DIAGNOSTIC 1 EACH STRIP IN SCH ×5 (00:33→23:55)
[2019-04-15] MEDS: METOCLOPRAMIDE HCL 10 MG TABLET GT SCH ×5 (00:33→23:55)
[2019-04-15] MEDS: INSULIN ASPART/LISPRO 100 UNIT/ML CARTRIDGE SQ PRN ×5 (00:35→23:57)
[2019-04-15] MEDS: NEPRO 1,000 ML BOTTLE GT PRN (06:01)
[2019-04-15] MEDS: Z GUARD REMEDY 4 OZ OINT TP SCH ×2 (09:00→21:32)
[2019-04-15] MEDS: BETADINE TP SCH (09:00)
[2019-04-15] MEDS: HYDROGEL DRESSING 90 GM TUBE TP SCH ×5 (09:00→21:32)
[2019-04-15] MEDS: HYDROGEN PEROXIDE 480 ML BOTTLE TP SCH ×2 (09:00→21:00)
[2019-04-15] MEDS: POVIDONE-IODINE OINT 28.4 GM TUBE TP SCH ×2 (09:00)
[2019-04-15] MEDS: NYSTATIN CREAM 15 GM TUBE TP SCH ×2 (09:00→21:32)
[2019-04-15] MEDS: LACTOBACILLUS RHAMNOSUS GG 1 EACH CAP.SPRINK GT SCH ×2 (09:23→17:18)
[2019-04-15] MEDS: SUCRALFATE 1 G/10 ML UDC GT SCH (09:23)
[2019-04-15] MEDS: VIT B CMPLX 3/FA/VIT C/BIOTIN 1 TAB TABLET GT SCH (09:23)
[2019-04-15] MEDS: METOPROLOL TARTRATE 50 MG TABLET GT SCH ×2 (09:23→20:51)
[2019-04-15] MEDS: ZINC SULFATE 220 MG CAPSULE GT SCH (09:24)
[2019-04-15] MEDS: ASCORBIC ACID 500 MG TABLET GT SCH (09:24)
[2019-04-15] MEDS: HYDROCODONE/APAP 5/325MG 1 EACH TABLET GT SCH ×2 (09:24→20:51)
[2019-04-15] MEDS: PROSOURCE / PROSTAT (PYXIS) 30 ML UDC GT SCH ×3 (09:24→17:17)
[2019-04-15] MEDS: TRIAMCINOLONE ACETONIDE 0.1% CR 15 GM TUBE TP SCH ×4 (09:24→21:32)
[2019-04-15] MEDS: [UNRECOGNIZED DRUG - OTHER] SQ SCH ×2 (09:24→21:05)
[2019-04-15] MEDS: CALCITRIOL ORAL SOLUTION 1 MCG/ML NG SCH (09:24)
[2019-04-15] MEDS: OMEPRAZOLE 20 MG CAPSULE.DR GT SCH (09:24)
--- NOTE | 2019-04-15 10:39 | NUR ---
RADHA followed up with Dr. Paritda youth officer, Augusta [phone] regarding an appointment time that worked for both pt. and academic affairs dean. Per other youth officer, Augusta was not in today and but will email Augusta specifics so Augusta can follow-up on 04/18/19. Per other marketing secretary, the patient was not on their system; no record or appt. time found. RADHA will await call from Kenyetta on 04/18/19. Per Subacute director, Sonia GARCIA contacted alternative academic affairs dean- [facility] [employer] office [[address], [address] [place] [address] ] to set up dermatology appointment for resident. Per marketing secretary, Dr. Mar doesnt have privileges at [facility] but will get back to me on Thursday04/18/[address] Mar is interested and move forward with process. RADHA will await call from [facility] office. RADHA informed Erika and updated family.
--- NOTE | 2019-04-15 15:26 | NUR ---
INTERDISCIPLINARY PLAN OF CARE CONFERENCE was held today. The patients daughters Samira [phone] participated via [address] conference[address]. Rocha and interdisciplinary team answered all of the familys questions and concerns including Financial Reporting Manager apt., amputation healing well, and familys interest in patient being weaned off ventilator. Dr. Rocha and interdisciplinary team discussed the current plan of care in detail. Current orders as well as treatments and medications were reviewed. See other disciplines note for further details.
--- NOTE | 2019-04-15 21:58 | NUR ---
RT NOTE PT RECEIVED TRACHED ON MECHANICAL VENTILATION. AMBU BAG/BACK UP TRACH @ BEDSIDE. SX DONE, TRACH SECURED AND PATENT. ALARMS ON AND AUDIBLE. CONT. POX @ BEDSIDE. NO SOB NOTED. WILL MONITOR. Addendum: 04/15/19 at 2159 by MARCIA YOUNG RT Amended: Links added.
[2019-04-16] VITALS (9 sets, daily range): BP systolic 119–176; BP diastolic 53–88
[2019-04-16] MEDS: BLOOD SUGAR DIAGNOSTIC 1 EACH STRIP IN SCH ×3 (06:08→17:35)
[2019-04-16] MEDS: POLYVINYL ALCOHOL 15 ML BOTTLE EACHEYE SCH ×3 (06:08→17:28)
[2019-04-16] MEDS: METOCLOPRAMIDE HCL 10 MG TABLET GT SCH ×3 (06:08→17:35)
[2019-04-16] MEDS: NEPRO 1,000 ML BOTTLE GT PRN (06:08)
[2019-04-16] MEDS: INSULIN ASPART/LISPRO 100 UNIT/ML CARTRIDGE SQ PRN ×4 (06:09→22:00)
--- NOTE | 2019-04-16 08:43 | NUR ---
RT NOTE PT REC'D TRACHED ON MECHANICAL VENTILATION. AMBU BAG/BACK UP TRACH @ BEDSIDE. SX DONE, TRACH SECURED AND PATENT. ALARMS ON AND AUDIBLE. VENT PLUGGED IN RED OUTLET. NO SOB NOTED AT THIS TIME. WILL MONITOR. Addendum: 04/16/19 at 0844 by LESLY WARREN RT Amended: Links added.
[2019-04-16] MEDS: METOPROLOL TARTRATE 50 MG TABLET GT SCH ×2 (09:00→21:55)
[2019-04-16] MEDS: Z GUARD REMEDY 4 OZ OINT TP SCH ×2 (09:00→21:24)
[2019-04-16] MEDS: NYSTATIN CREAM 15 GM TUBE TP SCH ×2 (09:00→21:23)
[2019-04-16] MEDS: HYDROGEL DRESSING 90 GM TUBE TP SCH ×5 (09:00→21:23)
[2019-04-16] MEDS: BETADINE TP SCH (09:00)
[2019-04-16] MEDS: [UNRECOGNIZED DRUG - OTHER] SQ SCH ×2 (09:00→21:56)
[2019-04-16] MEDS: TRIAMCINOLONE ACETONIDE 0.1% CR 15 GM TUBE TP SCH ×4 (09:00→21:22)
[2019-04-16] MEDS: POVIDONE-IODINE OINT 28.4 GM TUBE TP SCH ×2 (09:00)
[2019-04-16] MEDS: HYDROGEN PEROXIDE 480 ML BOTTLE TP SCH ×2 (09:06→21:23)
[2019-04-16] MEDS: OMEPRAZOLE 20 MG CAPSULE.DR GT SCH (09:43)
[2019-04-16] MEDS: SUCRALFATE 1 G/10 ML UDC GT SCH (09:43)
[2019-04-16] MEDS: PROSOURCE / PROSTAT (PYXIS) 30 ML UDC GT SCH ×3 (09:44→17:28)
[2019-04-16] MEDS: ASCORBIC ACID 500 MG TABLET GT SCH (09:44)
[2019-04-16] MEDS: CALCITRIOL ORAL SOLUTION 1 MCG/ML NG SCH (09:45)
[2019-04-16] MEDS: ZINC SULFATE 220 MG CAPSULE GT SCH (09:45)
[2019-04-16] MEDS: VIT B CMPLX 3/FA/VIT C/BIOTIN 1 TAB TABLET GT SCH (09:46)
[2019-04-16] MEDS: LACTOBACILLUS RHAMNOSUS GG 1 EACH CAP.SPRINK GT SCH ×2 (09:46→17:28)
[2019-04-16] MEDS: HYDROCODONE/APAP 5/325MG 1 EACH TABLET GT SCH ×2 (10:03→21:56)
[2019-04-16] MEDS: CLONIDINE HCL 0.1 MG TABLET GT PRN (12:10)
--- NOTE | 2019-04-16 21:00 | NUR ---
Patient family informed charge nurse that patient's skin have rashes again on bilateral arms and also on the left side of the next migrating to the back. patient family asked if we still giving the IM medication. charge nurse informed her that according to the order it is only give x1 and then after 4 days total of 2 dose. Family member stated that they their father needs to be seen by director of sports performance to determine the cause of rash. Charge nurse informed them that SW is already working on finding a director of sports performance.
[2019-04-17] VITALS (7 sets, daily range): BP systolic 142–159; BP diastolic 67–82
[2019-04-17] MEDS: POLYVINYL ALCOHOL 15 ML BOTTLE EACHEYE SCH ×4 (00:24→17:29)
[2019-04-17] MEDS: BLOOD SUGAR DIAGNOSTIC 1 EACH STRIP IN SCH ×4 (00:24→18:28)
[2019-04-17] MEDS: METOCLOPRAMIDE HCL 10 MG TABLET GT SCH ×4 (00:24→17:29)
[2019-04-17] MEDS: INSULIN ASPART/LISPRO 100 UNIT/ML CARTRIDGE SQ PRN ×3 (06:29→18:29)
[2019-04-17] MEDS: HYDROGEN PEROXIDE 480 ML BOTTLE TP SCH ×2 (09:00→22:00)
[2019-04-17] MEDS: Z GUARD REMEDY 4 OZ OINT TP SCH ×2 (09:00→21:51)
[2019-04-17] MEDS: SUCRALFATE 1 G/10 ML UDC GT SCH (09:58)
[2019-04-17] MEDS: LACTOBACILLUS RHAMNOSUS GG 1 EACH CAP.SPRINK GT SCH ×2 (09:58→17:29)
[2019-04-17] MEDS: VIT B CMPLX 3/FA/VIT C/BIOTIN 1 TAB TABLET GT SCH (09:59)
[2019-04-17] MEDS: METOPROLOL TARTRATE 50 MG TABLET GT SCH ×2 (09:59→21:50)
[2019-04-17] MEDS: OMEPRAZOLE 20 MG CAPSULE.DR GT SCH (10:00)
[2019-04-17] MEDS: ASCORBIC ACID 500 MG TABLET GT SCH (10:00)
[2019-04-17] MEDS: PROSOURCE / PROSTAT (PYXIS) 30 ML UDC GT SCH ×3 (10:00→17:29)
[2019-04-17] MEDS: [UNRECOGNIZED DRUG - OTHER] SQ SCH ×2 (10:00→21:50)
[2019-04-17] MEDS: ZINC SULFATE 220 MG CAPSULE GT SCH (10:00)
[2019-04-17] MEDS: CALCITRIOL ORAL SOLUTION 1 MCG/ML NG SCH (10:00)
[2019-04-17] MEDS: HYDROCODONE/APAP 5/325MG 1 EACH TABLET GT SCH ×2 (10:00→21:50)
[2019-04-17] MEDS: TRIAMCINOLONE ACETONIDE 0.1% CR 15 GM TUBE TP SCH ×4 (10:30→21:50)
[2019-04-17] MEDS: BETADINE TP SCH (10:30)
[2019-04-17] MEDS: HYDROGEL DRESSING 90 GM TUBE TP SCH ×5 (10:30→21:50)
[2019-04-17] MEDS: POVIDONE-IODINE OINT 28.4 GM TUBE TP SCH ×2 (10:30)
[2019-04-17] MEDS: NYSTATIN CREAM 15 GM TUBE TP SCH ×2 (10:30→21:51)
--- NOTE | 2019-04-17 10:30 | NUR ---
Informed Dr. Madsen that it's been a month since R AKA was done. Reminded MD if he wants nurse to remove the richar, but family prefers for him to do it. Dr Madsen said that he will do it the next time he is around. Endorsed.
--- NOTE | 2019-04-17 12:00 | NUR ---
Seen and examined by Dr. Dia, asked if he will consider another dose of steroid as family said that rashes in the body improved after administration of Celestone Soluspan but it is starting to flare up again. According to MD he wants to hold off from this medication for now but to continue with the topical cream. Resident's daughter Adrienne and Christine updated of what Dr. Dia said regarding their request for another dose of steroid due to patient's rashes and removal of richar in the R AKA by Dr. Madsen. Christine mentioned that she was told by by [facility] that a new vitamin will be started and recommending to increase GT feeding to 65 cc/hr for wound healing. Informed Christine that the recommendation received from dialysis center last week was to DC Neutraphos, however will endorse to have our representative personal service speak to [facility]'s representative personal service. Appreciated the information given.
[2019-04-17] MEDS: NEPRO 1,000 ML BOTTLE GT PRN (12:15)
--- NOTE | 2019-04-17 22:01 | NUR ---
PT REC'D TRACHED ON [facility] VENT ON AC MODE. NO RESP DISTRESS OR SOB NOTED. TRACH IS PATENT AND SECURED. SX'D FOR MOD AMT OF PALE YELLOW SECRETIONS. ALARMS ARE SET AND AUDIBLE. VENT PLUGGED INTO RED OUTLET, AMBU BAG BEDSIDE. Addendum: 04/17/19 at 2202 by MANISH DOMINGUEZ RT Amended: Links added.
[2019-04-18] VITALS (7 sets, daily range): BP systolic 140–171; BP diastolic 67–93
[2019-04-18] MEDS: METOCLOPRAMIDE HCL 10 MG TABLET GT SCH ×4 (00:43→18:05)
[2019-04-18] MEDS: BLOOD SUGAR DIAGNOSTIC 1 EACH STRIP IN SCH ×4 (00:43→18:05)
[2019-04-18] MEDS: POLYVINYL ALCOHOL 15 ML BOTTLE EACHEYE SCH ×4 (00:43→18:05)
[2019-04-18] MEDS: INSULIN ASPART/LISPRO 100 UNIT/ML CARTRIDGE SQ PRN ×4 (00:45→18:06)
[2019-04-18] MEDS: HYDROGEN PEROXIDE 480 ML BOTTLE TP SCH ×2 (09:00→21:00)
[2019-04-18] MEDS: LACTOBACILLUS RHAMNOSUS GG 1 EACH CAP.SPRINK GT SCH ×2 (09:25→17:49)
[2019-04-18] MEDS: METOPROLOL TARTRATE 50 MG TABLET GT SCH ×2 (09:25→20:15)
[2019-04-18] MEDS: SUCRALFATE 1 G/10 ML UDC GT SCH (09:25)
[2019-04-18] MEDS: ASCORBIC ACID 500 MG TABLET GT SCH (09:26)
[2019-04-18] MEDS: OMEPRAZOLE 20 MG CAPSULE.DR GT SCH (09:26)
[2019-04-18] MEDS: VIT B CMPLX 3/FA/VIT C/BIOTIN 1 TAB TABLET GT SCH (09:26)
[2019-04-18] MEDS: PROSOURCE / PROSTAT (PYXIS) 30 ML UDC GT SCH ×3 (09:26→17:49)
[2019-04-18] MEDS: CALCITRIOL ORAL SOLUTION 1 MCG/ML NG SCH (09:26)
[2019-04-18] MEDS: HYDROCODONE/APAP 5/325MG 1 EACH TABLET GT SCH ×2 (09:26→20:15)
[2019-04-18] MEDS: ZINC SULFATE 220 MG CAPSULE GT SCH (09:26)
[2019-04-18] MEDS: [UNRECOGNIZED DRUG - OTHER] SQ SCH ×2 (09:28→20:15)
[2019-04-18] MEDS: HYDROGEL DRESSING 90 GM TUBE TP SCH ×5 (09:58→20:16)
[2019-04-18] MEDS: TRIAMCINOLONE ACETONIDE 0.1% CR 15 GM TUBE TP SCH ×4 (09:58→20:16)
[2019-04-18] MEDS: POVIDONE-IODINE OINT 28.4 GM TUBE TP SCH ×2 (09:58)
[2019-04-18] MEDS: BETADINE TP SCH (09:59)
[2019-04-18] MEDS: Z GUARD REMEDY 4 OZ OINT TP SCH ×2 (09:59→20:16)
[2019-04-18] MEDS: NYSTATIN CREAM 15 GM TUBE TP SCH ×2 (09:59→20:16)
--- NOTE | 2019-04-18 10:48 | NUR ---
Dr Madsen removed richar from pt's right AKA. Surgical incision has healed well. Dr Madsen said to continue the same treatment.
[2019-04-18] MEDS: NEPRO 1,000 ML BOTTLE GT PRN (11:53)
--- NOTE | 2019-04-18 15:53 | NUR ---
RADHA contacted and spoke with followed up with Dr. Partida parking enforcement officer, Augusta [phone] regarding an appointment time that worked for both pt. and manager medical writing. Per Kenyetta, the doctor will see the patient when his schedule permits. Per Augusta, she cannot give SW a set time and date. RADHA followd up with [facility] [employer] office [[address], [address] [place] [address] ] to verify 's interest in having priviledges in [facility]. Per board of education secretary, is not interested in having priviledges in [place]. RADHA notified sub-acute director, Erika.
[2019-04-19] VITALS (7 sets, daily range): BP systolic 128–164; BP diastolic 57–78
[2019-04-19] MEDS: POLYVINYL ALCOHOL 15 ML BOTTLE EACHEYE SCH ×4 (00:14→17:38)
[2019-04-19] MEDS: METOCLOPRAMIDE HCL 10 MG TABLET GT SCH ×4 (00:14→17:38)
[2019-04-19] MEDS: BLOOD SUGAR DIAGNOSTIC 1 EACH STRIP IN SCH ×4 (00:14→17:38)
[2019-04-19] MEDS: INSULIN ASPART/LISPRO 100 UNIT/ML CARTRIDGE SQ PRN ×4 (00:15→18:02)
[2019-04-19] MEDS: CLONIDINE HCL 0.1 MG TABLET GT PRN (00:36)
--- NOTE | 2019-04-19 00:44 | NUR ---
Pt B/P was ck q 6hrs, @ 0000hrs pts B/p is 164/75, prn meds for elevated B/P clonidine 0.1 mg was given, sarah pts B/p in an hr. Addendum: 04/19/19 at 0418 by BRENNAN CARPENTER LVN PTS B/P WAS SARAH IT IS 128/57 83....
[2019-04-19] MEDS: HYDROGEN PEROXIDE 480 ML BOTTLE TP SCH ×2 (09:00→21:00)
[2019-04-19] MEDS: SUCRALFATE 1 G/10 ML UDC GT SCH (09:15)
[2019-04-19] MEDS: LACTOBACILLUS RHAMNOSUS GG 1 EACH CAP.SPRINK GT SCH ×2 (09:15→16:51)
[2019-04-19] MEDS: METOPROLOL TARTRATE 50 MG TABLET GT SCH ×2 (09:15→20:19)
[2019-04-19] MEDS: VIT B CMPLX 3/FA/VIT C/BIOTIN 1 TAB TABLET GT SCH (09:15)
[2019-04-19] MEDS: ZINC SULFATE 220 MG CAPSULE GT SCH (09:16)
[2019-04-19] MEDS: OMEPRAZOLE 20 MG CAPSULE.DR GT SCH (09:16)
[2019-04-19] MEDS: PROSOURCE / PROSTAT (PYXIS) 30 ML UDC GT SCH ×3 (09:16→16:51)
[2019-04-19] MEDS: ASCORBIC ACID 500 MG TABLET GT SCH (09:16)
[2019-04-19] MEDS: HYDROCODONE/APAP 5/325MG 1 EACH TABLET GT SCH ×2 (09:16→20:19)
[2019-04-19] MEDS: CALCITRIOL ORAL SOLUTION 1 MCG/ML NG SCH (09:16)
[2019-04-19] MEDS: [UNRECOGNIZED DRUG - OTHER] SQ SCH ×2 (09:17→20:20)
[2019-04-19] MEDS: TRIAMCINOLONE ACETONIDE 0.1% CR 15 GM TUBE TP SCH ×4 (09:56→20:20)
[2019-04-19] MEDS: POVIDONE-IODINE OINT 28.4 GM TUBE TP SCH ×2 (09:56)
[2019-04-19] MEDS: HYDROGEL DRESSING 90 GM TUBE TP SCH ×5 (09:56→20:21)
[2019-04-19] MEDS: BETADINE TP SCH (09:57)
[2019-04-19] MEDS: Z GUARD REMEDY 4 OZ OINT TP SCH ×2 (09:57→20:21)
[2019-04-19] MEDS: NYSTATIN CREAM 15 GM TUBE TP SCH ×2 (09:57→20:21)
[2019-04-19] MEDS: NEPRO 1,000 ML BOTTLE GT PRN (13:40)
--- NOTE | 2019-04-19 17:15 | NUR ---
Pt's teeth cleaned by dentist Dr Buck. No new order.
[2019-04-20] VITALS (7 sets, daily range): BP systolic 106–167; BP diastolic 56–74
[2019-04-20] MEDS: BLOOD SUGAR DIAGNOSTIC 1 EACH STRIP IN SCH ×5 (00:08→23:59)
[2019-04-20] MEDS: METOCLOPRAMIDE HCL 10 MG TABLET GT SCH ×5 (00:08→23:59)
[2019-04-20] MEDS: POLYVINYL ALCOHOL 15 ML BOTTLE EACHEYE SCH ×5 (00:08→23:59)
[2019-04-20] MEDS: INSULIN ASPART/LISPRO 100 UNIT/ML CARTRIDGE SQ PRN ×4 (00:10→17:36)
[2019-04-20] MEDS: VIT B CMPLX 3/FA/VIT C/BIOTIN 1 TAB TABLET GT SCH (09:00)
[2019-04-20] MEDS: HYDROCODONE/APAP 5/325MG 1 EACH TABLET GT SCH ×2 (09:00→21:35)
[2019-04-20] MEDS: Z GUARD REMEDY 4 OZ OINT TP SCH ×2 (09:00→22:00)
[2019-04-20] MEDS: LACTOBACILLUS RHAMNOSUS GG 1 EACH CAP.SPRINK GT SCH ×2 (09:00→17:35)
[2019-04-20] MEDS: SUCRALFATE 1 G/10 ML UDC GT SCH (09:00)
[2019-04-20] MEDS: METOPROLOL TARTRATE 50 MG TABLET GT SCH ×2 (09:00→21:00)
[2019-04-20] MEDS: [UNRECOGNIZED DRUG - OTHER] SQ SCH ×2 (09:00→21:34)
[2019-04-20] MEDS: ZINC SULFATE 220 MG CAPSULE GT SCH (09:00)
[2019-04-20] MEDS: PROSOURCE / PROSTAT (PYXIS) 30 ML UDC GT SCH ×3 (09:00→17:42)
[2019-04-20] MEDS: CALCITRIOL ORAL SOLUTION 1 MCG/ML NG SCH (09:00)
[2019-04-20] MEDS: HYDROGEL DRESSING 90 GM TUBE TP SCH (09:00)
[2019-04-20] MEDS: BETADINE TP SCH (09:00)
[2019-04-20] MEDS: ASCORBIC ACID 500 MG TABLET GT SCH (09:00)
[2019-04-20] MEDS: TRIAMCINOLONE ACETONIDE 0.1% CR 15 GM TUBE TP SCH ×4 (09:00→22:00)
[2019-04-20] MEDS: NYSTATIN CREAM 15 GM TUBE TP SCH ×2 (09:00→22:00)
[2019-04-20] MEDS: POVIDONE-IODINE OINT 28.4 GM TUBE TP SCH ×2 (09:00)
[2019-04-20] MEDS: OMEPRAZOLE 20 MG CAPSULE.DR GT SCH (09:00)
--- NOTE | 2019-04-20 16:10 | NUR ---
Dermatology update : Patients , Janet [phone] contacted RADHA to receive update regarding automotive service management teacher apt. RADHA informed Janet that RADHA called Process Improvement Manager, Dr. Perez TEL:[phone] FAX:[phone] six times in the last three weeks in attempt to schedule derma appointment. Janet expressed understanding and that she knows were trying our best to serve the patient. RADHA thanks Janet and reinforced Janet for advocating on patients behalf. Janet requested that RADHA see if the patients Dialysis apt. can be moved around to accommodate a dermatology visit. SW will attempt to accommodate automotive service management teacher appointment. Patients also communicated with RADHA that last night 04/19/19 Janet was not pleased with the service provided by fill-in MAIL HANDLER SORTER. Janet stated that the MAIL HANDLER SORTER was not attentive and presented dismissive upon familys request to move the patient as he was laying uncomfortably. RADHA validated Thompson concern and RADHA informed charge nurse and made a note in 24 hr. nursing log. Janet expressed that the nursing staff and [facility] are normally all very attentive and caring and provide the patient with adequate care. RADHA contacted Dr. Partida office and spoke with his secretary administrative assistant, Augusta to schedule next available appointment for three total patients. Augusta refused to schedule appointment in the near future stating, Dr. Perez will be on vacation 2018- 2018 and he will be very busy when he returns. Per Augusta, RADHA to email face sheets of patients requiring automotive service management teacher appointment and they will leave a note for Dr. Perez to schedule a visit to [facility] upon returning from vacation. RADHA communicated update with Janet informing her that Dr. Perez will be on vacation 04/22/19- 05/10/19. Janet expressed frustration and understood. RADHA validated Janet's feelings and informed Janet that they will attempt alternative ways of having dermatology consult. Janet was agreeable to plan. Addendum: 04/21/19 at 0904 by EDGAR GARCIA CORRECTION: Per RADHA Deras to fax:[phone] face sheets of patients requiring automotive service management teacher appointment and they will leave a note for Dr. Perez to schedule a visit to [facility] upon returning from vacation.
--- NOTE | 2019-04-20 20:05 | NUR ---
RT NOTE PT RCVD SARAH'D ON MECHANICAL VENT WITH CHARTED SETTINGS. SX DONE. PT SARAH IS PATENT AND SECURE. VENT ALARMS APPEAR TO BE FUNCTIONING PROPERLY. VENT PLUGGED INTO RED OUTLET. AMBU BAG AT BEDSIDE. Addendum: 04/20/19 at 2007 by OLAMIDE LANDIN RT Amended: Links added.
[2019-04-20] MEDS: HYDROGEN PEROXIDE 480 ML BOTTLE TP SCH (21:03)
[2019-04-20] MEDS: NEPRO 1,000 ML BOTTLE GT PRN (22:16)
[2019-04-21 00:30] VITALS: BP 125/71
[2019-04-21 05:00] VITALS: BP 141/73
[2019-04-21] MEDS: BLOOD SUGAR DIAGNOSTIC 1 EACH STRIP IN SCH ×4 (05:41→23:25)
[2019-04-21] MEDS: POLYVINYL ALCOHOL 15 ML BOTTLE EACHEYE SCH ×4 (05:41→23:25)
[2019-04-21] MEDS: METOCLOPRAMIDE HCL 10 MG TABLET GT SCH ×4 (05:41→23:25)
[2019-04-21] MEDS: INSULIN ASPART/LISPRO 100 UNIT/ML CARTRIDGE SQ PRN ×5 (05:44→23:26)
[2019-04-21 07:24] VITALS: BP 136/74
[2019-04-21 08:00] VITALS: BP 136/74
[2019-04-21] MEDS: ASCORBIC ACID 500 MG TABLET GT SCH (09:00)
[2019-04-21] MEDS: Z GUARD REMEDY 4 OZ OINT TP SCH ×2 (09:00→22:20)
[2019-04-21] MEDS: SUCRALFATE 1 G/10 ML UDC GT SCH (09:00)
[2019-04-21] MEDS: ZINC SULFATE 220 MG CAPSULE GT SCH (09:00)
[2019-04-21] MEDS: [UNRECOGNIZED DRUG - OTHER] SQ SCH ×2 (09:00→21:56)
[2019-04-21] MEDS: VIT B CMPLX 3/FA/VIT C/BIOTIN 1 TAB TABLET GT SCH (09:00)
[2019-04-21] MEDS: LACTOBACILLUS RHAMNOSUS GG 1 EACH CAP.SPRINK GT SCH ×2 (09:00→17:23)
[2019-04-21] MEDS: CALCITRIOL ORAL SOLUTION 1 MCG/ML NG SCH (09:00)
[2019-04-21] MEDS: HYDROCODONE/APAP 5/325MG 1 EACH TABLET GT SCH ×2 (09:00→21:43)
[2019-04-21] MEDS: PROSOURCE / PROSTAT (PYXIS) 30 ML UDC GT SCH ×3 (09:00→17:23)
[2019-04-21] MEDS: METOPROLOL TARTRATE 50 MG TABLET GT SCH ×2 (09:00→21:42)
[2019-04-21] MEDS: OMEPRAZOLE 20 MG CAPSULE.DR GT SCH (09:00)
[2019-04-21] MEDS: HYDROGEL DRESSING 90 GM TUBE TP SCH ×5 (09:00→22:20)
[2019-04-21] MEDS: HYDROGEN PEROXIDE 480 ML BOTTLE TP SCH ×2 (09:00→21:48)
[2019-04-21] MEDS: POVIDONE-IODINE OINT 28.4 GM TUBE TP SCH ×2 (09:00)
[2019-04-21] MEDS: KETOCONAZOLE SHAMPOO 120 ML BOTTLE TP SCH (09:00)
[2019-04-21] MEDS: BETADINE TP SCH (09:00)
[2019-04-21] MEDS: NYSTATIN CREAM 15 GM TUBE TP SCH (09:00)
[2019-04-21] MEDS: TRIAMCINOLONE ACETONIDE 0.1% CR 15 GM TUBE TP SCH ×3 (09:00→17:23)
--- NOTE | 2019-04-21 09:05 | NUR ---
RADHA faxed [FAX: [phone]] referral for derma consultation regarding generalized rash to 's office. RADHA received and filed "completed" fax sheet. RADHA to follow up when Dr. Perez returns from vacation on 05/11/19
--- NOTE | 2019-04-21 09:12 | NUR ---
RADHA called Dr. Perez's office and spoke to Augusta [phone] to explore alternative ways to have the resident be seen by a waiter. RADHA informed Augusta that Dr. Perez, , and Dr. Anders are the only waiter to have priviledges in our [facility] and therefore, our residents cannot be seen by other dermatologists. RADHA informed Augusta that our residents are bed bound and require medical equipment that is hard to transport. RADHA communicated to Augusta that this makes it difficult for our residents to come to their dermatology office to be treated. Augusta expressed understanding and communicated that Dr Perez is the only waiter that may see our patients as he does offsite appointments. Per Augusta, one of the alternate Dermatologists is on maternity leave and the other derma. only does on site appointments. RADHA informed Augusta that we are willing to move our resident's appointments to accommodate Dr. Perez's busy schedule. Per Augusta, she has forwarded the referrals to their intake dept. who will work on setting up an appointment when Dr. Perez returns from vacation May 11. Augusta could not give RADHA estimated appointment date or time. Augusta gave RADHA, Dr. Perez's EMAIL: [email or web address]. Per Augusta, she suggested that our MD email Dr. Perez regarding patient's generalized skin rash and urge to see said patient. RADHA thanked Augusta for her cooperation and efforts.
--- NOTE | 2019-04-21 09:34 | NUR ---
RADHA gave Charge Nurse, Ag Perez's EMAIL: [email or web address] and updated her regarding pending dermatology apt. Ag to have patient's MD email DR. Melissa BRAR.
--- NOTE | 2019-04-21 10:57 | NUR ---
RADHA received a voicemail message from patient's , Janet Bravo TEL: [phone] asking about any updates with car dryer appoinment. RADHA updated Janet that our plan is to have the resident's MD Dr. Dia, e-mail car dryer, to inform him of patient's generalized rash and urge him to visit the patient. Janet expressed understanding and asked to have car dryer contact information. RADHA provide Janet with 's office number. Janet expressed being grateful for RADHA persistence in attempts to book car dryer appointment for the resident. RADHA informed [employer] that RADHA is readily available to support the resident and family and will contact Janet back when there's any update. Janet was agreeable to plan.
[2019-04-21 12:00] VITALS: BP 160/78
[2019-04-21] MEDS: NEPRO 1,000 ML BOTTLE GT PRN (18:46)
[2019-04-21 18:48] VITALS: BP 153/64
[2019-04-21] MEDS: NYSTATIN/TRIAMCIN CREAM 15 GM TUBE TP SCH (22:20)
[2019-04-22] VITALS (7 sets, daily range): BP systolic 116–169; BP diastolic 54–92
[2019-04-22] MEDS: METOCLOPRAMIDE HCL 10 MG TABLET GT SCH ×3 (05:32→17:26)
[2019-04-22] MEDS: BLOOD SUGAR DIAGNOSTIC 1 EACH STRIP IN SCH ×3 (05:32→17:26)
[2019-04-22] MEDS: POLYVINYL ALCOHOL 15 ML BOTTLE EACHEYE SCH ×3 (05:32→17:26)
[2019-04-22] MEDS: INSULIN ASPART/LISPRO 100 UNIT/ML CARTRIDGE SQ PRN ×3 (05:33→17:35)
[2019-04-22] MEDS: NYSTATIN/TRIAMCIN CREAM 15 GM TUBE TP SCH (09:00)
[2019-04-22] MEDS: POVIDONE-IODINE OINT 28.4 GM TUBE TP SCH ×2 (09:00)
[2019-04-22] MEDS: HYDROGEN PEROXIDE 480 ML BOTTLE TP SCH ×2 (09:00→21:00)
[2019-04-22] MEDS: Z GUARD REMEDY 4 OZ OINT TP SCH ×2 (09:00→22:00)
[2019-04-22] MEDS: HYDROGEL DRESSING 90 GM TUBE TP SCH ×6 (09:00→22:00)
[2019-04-22] MEDS: BETADINE TP SCH (09:00)
[2019-04-22] MEDS: VIT B CMPLX 3/FA/VIT C/BIOTIN 1 TAB TABLET GT SCH (09:34)
[2019-04-22] MEDS: METOPROLOL TARTRATE 50 MG TABLET GT SCH ×2 (09:34→21:31)
[2019-04-22] MEDS: LACTOBACILLUS RHAMNOSUS GG 1 EACH CAP.SPRINK GT SCH ×2 (09:34→17:26)
[2019-04-22] MEDS: SUCRALFATE 1 G/10 ML UDC GT SCH (09:34)
[2019-04-22] MEDS: PROSOURCE / PROSTAT (PYXIS) 30 ML UDC GT SCH ×3 (09:35→17:00)
[2019-04-22] MEDS: TRIAMCINOLONE ACETONIDE 0.1% CR 15 GM TUBE TP SCH ×3 (09:35→22:00)
[2019-04-22] MEDS: ASCORBIC ACID 500 MG TABLET GT SCH (09:35)
[2019-04-22] MEDS: ZINC SULFATE 220 MG CAPSULE GT SCH (09:35)
[2019-04-22] MEDS: CALCITRIOL ORAL SOLUTION 1 MCG/ML NG SCH (09:35)
[2019-04-22] MEDS: HYDROCODONE/APAP 5/325MG 1 EACH TABLET GT SCH ×2 (09:35→21:31)
[2019-04-22] MEDS: OMEPRAZOLE 20 MG CAPSULE.DR GT SCH (09:35)
[2019-04-22] MEDS: [UNRECOGNIZED DRUG - OTHER] SQ SCH ×2 (09:35→21:32)
--- NOTE | 2019-04-22 15:15 | NUR ---
Dr. Dia is currently is on vacation. RADHA will communicate to Dr. Dia to follow up with for dermatology apt one he returns from vacation.
--- NOTE | 2019-04-22 17:12 | NUR ---
RT NOTE: RECEIVED TRACH PT ON ORDERED NOTED VENT SETTINGS. NO RESPIRATORY DISTRESS NOTED. PT WENT TO HEMODIALYSIS TX WITH NO COMPLICATIONS NOTED. TRACH CHECKED SECURE AND PATENT. SXD AND LAVAGED PT Q ROUND AND NEEDED. TXS GIVEN ORDERED WITH NO ADVERSE REACTIONS NOTED. TRACH CARE DONE. SPARE TRACH AND AMBU BAG @ BEDSIDE. ALARMS ON AND AUDIBLE. VENT PLUGGED INTO RED OUTLET.
[2019-04-22] MEDS: NYSTATIN CREAM 15 GM TUBE TP SCH (22:00)
[2019-04-22] MEDS: NEPRO 1,000 ML BOTTLE GT PRN (22:03)
[2019-04-23] VITALS (8 sets, daily range): BP systolic 119–158; BP diastolic 53–86
[2019-04-23] MEDS: METOCLOPRAMIDE HCL 10 MG TABLET GT SCH ×5 (00:48→23:05)
[2019-04-23] MEDS: BLOOD SUGAR DIAGNOSTIC 1 EACH STRIP IN SCH ×5 (00:48→23:05)
[2019-04-23] MEDS: POLYVINYL ALCOHOL 15 ML BOTTLE EACHEYE SCH ×5 (00:48→23:04)
[2019-04-23] MEDS: INSULIN ASPART/LISPRO 100 UNIT/ML CARTRIDGE SQ PRN ×5 (00:50→23:05)
[2019-04-23] MEDS: HYDROGEN PEROXIDE 480 ML BOTTLE TP SCH ×2 (09:00→21:44)
[2019-04-23] MEDS: OMEPRAZOLE 20 MG CAPSULE.DR GT SCH (09:43)
[2019-04-23] MEDS: LACTOBACILLUS RHAMNOSUS GG 1 EACH CAP.SPRINK GT SCH ×2 (09:43→17:22)
[2019-04-23] MEDS: VIT B CMPLX 3/FA/VIT C/BIOTIN 1 TAB TABLET GT SCH (09:43)
[2019-04-23] MEDS: METOPROLOL TARTRATE 50 MG TABLET GT SCH ×2 (09:43→21:44)
[2019-04-23] MEDS: SUCRALFATE 1 G/10 ML UDC GT SCH (09:43)
[2019-04-23] MEDS: PROSOURCE / PROSTAT (PYXIS) 30 ML UDC GT SCH ×3 (09:43→17:22)
[2019-04-23] MEDS: ZINC SULFATE 220 MG CAPSULE GT SCH (09:43)
[2019-04-23] MEDS: [UNRECOGNIZED DRUG - OTHER] SQ SCH ×2 (09:43→21:44)
[2019-04-23] MEDS: CALCITRIOL ORAL SOLUTION 1 MCG/ML NG SCH (09:43)
[2019-04-23] MEDS: HYDROCODONE/APAP 5/325MG 1 EACH TABLET GT SCH ×2 (09:43→21:44)
[2019-04-23] MEDS: ASCORBIC ACID 500 MG TABLET GT SCH (09:43)
[2019-04-23] MEDS: TRIAMCINOLONE ACETONIDE 0.1% CR 15 GM TUBE TP SCH ×4 (10:30→21:44)
[2019-04-23] MEDS: HYDROGEL DRESSING 90 GM TUBE TP SCH ×6 (10:30→21:44)
[2019-04-23] MEDS: BETADINE TP SCH (10:30)
[2019-04-23] MEDS: Z GUARD REMEDY 4 OZ OINT TP SCH ×2 (10:30→21:45)
[2019-04-23] MEDS: POVIDONE-IODINE OINT 28.4 GM TUBE TP SCH ×2 (10:30)
[2019-04-23] MEDS: NYSTATIN CREAM 15 GM TUBE TP SCH ×2 (10:30→21:44)
[2019-04-24] VITALS (7 sets, daily range): BP systolic 129–160; BP diastolic 60–83
[2019-04-24] MEDS: POLYVINYL ALCOHOL 15 ML BOTTLE EACHEYE SCH ×4 (05:21→23:47)
[2019-04-24] MEDS: BLOOD SUGAR DIAGNOSTIC 1 EACH STRIP IN SCH ×4 (05:21→23:47)
[2019-04-24] MEDS: METOCLOPRAMIDE HCL 10 MG TABLET GT SCH ×4 (05:21→23:47)
[2019-04-24] MEDS: INSULIN ASPART/LISPRO 100 UNIT/ML CARTRIDGE SQ PRN ×4 (05:22→23:48)
[2019-04-24] MEDS: NYSTATIN CREAM 15 GM TUBE TP SCH ×2 (09:00→21:53)
[2019-04-24] MEDS: BETADINE TP SCH (09:00)
[2019-04-24] MEDS: HYDROGEL DRESSING 90 GM TUBE TP SCH ×6 (09:00→21:52)
[2019-04-24] MEDS: Z GUARD REMEDY 4 OZ OINT TP SCH ×2 (09:00→21:53)
[2019-04-24] MEDS: HYDROGEN PEROXIDE 480 ML BOTTLE TP SCH ×2 (09:00→21:00)
[2019-04-24] MEDS: TRIAMCINOLONE ACETONIDE 0.1% CR 15 GM TUBE TP SCH ×4 (09:00→21:52)
[2019-04-24] MEDS: POVIDONE-IODINE OINT 28.4 GM TUBE TP SCH ×2 (09:00)
[2019-04-24] MEDS: SUCRALFATE 1 G/10 ML UDC GT SCH (09:14)
[2019-04-24] MEDS: LACTOBACILLUS RHAMNOSUS GG 1 EACH CAP.SPRINK GT SCH ×2 (09:14→17:34)
[2019-04-24] MEDS: CALCITRIOL ORAL SOLUTION 1 MCG/ML NG SCH (09:15)
[2019-04-24] MEDS: OMEPRAZOLE 20 MG CAPSULE.DR GT SCH (09:15)
[2019-04-24] MEDS: HYDROCODONE/APAP 5/325MG 1 EACH TABLET GT SCH ×2 (09:15→21:11)
[2019-04-24] MEDS: VIT B CMPLX 3/FA/VIT C/BIOTIN 1 TAB TABLET GT SCH (09:15)
[2019-04-24] MEDS: METOPROLOL TARTRATE 50 MG TABLET GT SCH ×2 (09:15→21:11)
[2019-04-24] MEDS: PROSOURCE / PROSTAT (PYXIS) 30 ML UDC GT SCH ×3 (09:15→17:34)
[2019-04-24] MEDS: ZINC SULFATE 220 MG CAPSULE GT SCH (09:15)
[2019-04-24] MEDS: [UNRECOGNIZED DRUG - OTHER] SQ SCH ×2 (09:15→21:12)
[2019-04-24] MEDS: ASCORBIC ACID 500 MG TABLET GT SCH (09:15)
[2019-04-24] MEDS: NEPRO 1,000 ML BOTTLE GT PRN (17:32)
[2019-04-25] VITALS (9 sets, daily range): BP systolic 134–168; BP diastolic 66–85
[2019-04-25] MEDS: POLYVINYL ALCOHOL 15 ML BOTTLE EACHEYE SCH ×3 (05:55→18:32)
[2019-04-25] MEDS: METOCLOPRAMIDE HCL 10 MG TABLET GT SCH ×3 (05:55→18:32)
[2019-04-25] MEDS: BLOOD SUGAR DIAGNOSTIC 1 EACH STRIP IN SCH ×3 (05:55→18:33)
[2019-04-25] MEDS: INSULIN ASPART/LISPRO 100 UNIT/ML CARTRIDGE SQ PRN ×3 (05:56→18:34)
[2019-04-25] MEDS: LACTOBACILLUS RHAMNOSUS GG 1 EACH CAP.SPRINK GT SCH ×2 (08:56→17:00)
[2019-04-25] MEDS: SUCRALFATE 1 G/10 ML UDC GT SCH (08:56)
[2019-04-25] MEDS: METOPROLOL TARTRATE 50 MG TABLET GT SCH ×2 (08:57→20:01)
[2019-04-25] MEDS: VIT B CMPLX 3/FA/VIT C/BIOTIN 1 TAB TABLET GT SCH (08:57)
[2019-04-25] MEDS: OMEPRAZOLE 20 MG CAPSULE.DR GT SCH (08:57)
[2019-04-25] MEDS: HYDROCODONE/APAP 5/325MG 1 EACH TABLET GT SCH ×2 (08:57→20:02)
[2019-04-25] MEDS: PROSOURCE / PROSTAT (PYXIS) 30 ML UDC GT SCH ×3 (08:58→17:00)
[2019-04-25] MEDS: ASCORBIC ACID 500 MG TABLET GT SCH (08:58)
[2019-04-25] MEDS: ZINC SULFATE 220 MG CAPSULE GT SCH (08:58)
[2019-04-25] MEDS: CALCITRIOL ORAL SOLUTION 1 MCG/ML NG SCH (08:59)
[2019-04-25] MEDS: POVIDONE-IODINE OINT 28.4 GM TUBE TP SCH ×2 (09:00→09:57)
[2019-04-25] MEDS: HYDROGEL DRESSING 90 GM TUBE TP SCH ×6 (09:00→20:03)
[2019-04-25] MEDS: HYDROGEN PEROXIDE 480 ML BOTTLE TP SCH ×2 (09:00→20:03)
[2019-04-25] MEDS: [UNRECOGNIZED DRUG - OTHER] SQ SCH ×2 (09:01→20:33)
--- NOTE | 2019-04-25 09:56 | NUR ---
Spiritual Needs : SW received a call from [phone] offering to set up clergy services for patient to meet his spiritual needs. SW contacted patients , Janet to verify is patient is Hindu and would like clergy services for resident. Janet was agreeable to clergy services. SW communicated to Dr. Sahu that family was agreeable to plan. DR. Sahu to set up appointment and communicate SW the date and time. SW asked Dr. Sahu if clergy services may be extended to other mosque residents in the unit. Dr. Sahu stated it may be possible. SW to call other residents familys and extend offer.
[2019-04-25] MEDS: NYSTATIN CREAM 15 GM TUBE TP SCH ×2 (09:57→20:03)
[2019-04-25] MEDS: TRIAMCINOLONE ACETONIDE 0.1% CR 15 GM TUBE TP SCH ×4 (09:57→20:02)
[2019-04-25] MEDS: Z GUARD REMEDY 4 OZ OINT TP SCH ×2 (09:57→20:03)
[2019-04-25] MEDS: BETADINE TP SCH (09:57)
[2019-04-26] VITALS (7 sets, daily range): BP systolic 92–166; BP diastolic 52–100
[2019-04-26] MEDS: POLYVINYL ALCOHOL 15 ML BOTTLE EACHEYE SCH ×5 (00:07→23:07)
[2019-04-26] MEDS: METOCLOPRAMIDE HCL 10 MG TABLET GT SCH ×5 (00:10→23:07)
[2019-04-26] MEDS: BLOOD SUGAR DIAGNOSTIC 1 EACH STRIP IN SCH ×5 (00:42→23:07)
[2019-04-26] MEDS: INSULIN ASPART/LISPRO 100 UNIT/ML CARTRIDGE SQ PRN ×4 (00:44→23:08)
[2019-04-26] MEDS: NEPRO 1,000 ML BOTTLE GT PRN (02:48)
[2019-04-26] MEDS: Z GUARD REMEDY 4 OZ OINT TP SCH ×2 (09:00→21:15)
[2019-04-26] MEDS: HYDROGEN PEROXIDE 480 ML BOTTLE TP SCH ×2 (09:00→21:00)
[2019-04-26] MEDS: HYDROGEL DRESSING 90 GM TUBE TP SCH ×6 (09:00→21:15)
[2019-04-26] MEDS: POVIDONE-IODINE OINT 28.4 GM TUBE TP SCH ×2 (09:00)
[2019-04-26] MEDS: BETADINE TP SCH (09:00)
[2019-04-26] MEDS: TRIAMCINOLONE ACETONIDE 0.1% CR 15 GM TUBE TP SCH ×4 (09:00→21:15)
[2019-04-26] MEDS: NYSTATIN CREAM 15 GM TUBE TP SCH ×2 (09:00→21:15)
[2019-04-26] MEDS: METOPROLOL TARTRATE 50 MG TABLET GT SCH ×2 (09:17→21:14)
[2019-04-26] MEDS: PROSOURCE / PROSTAT (PYXIS) 30 ML UDC GT SCH ×3 (09:17→16:45)
[2019-04-26] MEDS: OMEPRAZOLE 20 MG CAPSULE.DR GT SCH (09:17)
[2019-04-26] MEDS: ASCORBIC ACID 500 MG TABLET GT SCH (09:17)
[2019-04-26] MEDS: VIT B CMPLX 3/FA/VIT C/BIOTIN 1 TAB TABLET GT SCH (09:17)
[2019-04-26] MEDS: CALCITRIOL ORAL SOLUTION 1 MCG/ML NG SCH (09:17)
[2019-04-26] MEDS: ZINC SULFATE 220 MG CAPSULE GT SCH (09:17)
[2019-04-26] MEDS: SUCRALFATE 1 G/10 ML UDC GT SCH (09:17)
[2019-04-26] MEDS: LACTOBACILLUS RHAMNOSUS GG 1 EACH CAP.SPRINK GT SCH ×2 (09:17→16:45)
[2019-04-26] MEDS: HYDROCODONE/APAP 5/325MG 1 EACH TABLET GT SCH ×2 (09:17→21:14)
[2019-04-26] MEDS: [UNRECOGNIZED DRUG - OTHER] SQ SCH ×2 (09:18→21:14)
--- NOTE | 2019-04-26 11:22 | NUR ---
Invitation to Family Support Group" SW called patients responsible republican/ , Janet Bravo TEL: [phone] to invite them to attend the family support group being held tomorrow April 27, 2019 from 11 am-12pm in the old admin. conference room in the first floor. Janet expressed interest and stated that she is unable to make it. However, she stated that she will try to make it to future support groups. No further action required.
[2019-04-27] VITALS (8 sets, daily range): BP systolic 93–160; BP diastolic 52–84
[2019-04-27] MEDS: POLYVINYL ALCOHOL 15 ML BOTTLE EACHEYE SCH ×3 (05:36→17:04)
[2019-04-27] MEDS: BLOOD SUGAR DIAGNOSTIC 1 EACH STRIP IN SCH ×3 (05:36→17:30)
[2019-04-27] MEDS: METOCLOPRAMIDE HCL 10 MG TABLET GT SCH (05:36)
[2019-04-27] MEDS: HYDROCODONE/APAP 5/325MG 1 EACH TABLET GT SCH ×2 (08:18→21:22)
[2019-04-27] MEDS: SUCRALFATE 1 G/10 ML UDC GT SCH (08:23)
[2019-04-27] MEDS: LACTOBACILLUS RHAMNOSUS GG 1 EACH CAP.SPRINK GT SCH ×2 (08:23→17:03)
[2019-04-27] MEDS: CALCITRIOL ORAL SOLUTION 1 MCG/ML NG SCH (08:26)
[2019-04-27] MEDS: VIT B CMPLX 3/FA/VIT C/BIOTIN 1 TAB TABLET GT SCH (08:26)
[2019-04-27] MEDS: METOPROLOL TARTRATE 50 MG TABLET GT SCH ×2 (08:26→21:00)
[2019-04-27] MEDS: ZINC SULFATE 220 MG CAPSULE GT SCH (08:26)
[2019-04-27] MEDS: OMEPRAZOLE 20 MG CAPSULE.DR GT SCH (08:26)
[2019-04-27] MEDS: ASCORBIC ACID 500 MG TABLET GT SCH (08:26)
[2019-04-27] MEDS: PROSOURCE / PROSTAT (PYXIS) 30 ML UDC GT SCH ×3 (08:26→17:03)
[2019-04-27] MEDS: HYDROGEN PEROXIDE 480 ML BOTTLE TP SCH ×2 (08:39→21:11)
[2019-04-27] MEDS: [UNRECOGNIZED DRUG - OTHER] SQ SCH (08:45)
[2019-04-27] MEDS: HYDROGEL DRESSING 90 GM TUBE TP SCH ×6 (09:18→22:15)
[2019-04-27] MEDS: BETADINE TP SCH (09:18)
[2019-04-27] MEDS: TRIAMCINOLONE ACETONIDE 0.1% CR 15 GM TUBE TP SCH ×4 (09:18→22:15)
[2019-04-27] MEDS: POVIDONE-IODINE OINT 28.4 GM TUBE TP SCH ×2 (09:18)
[2019-04-27] MEDS: NYSTATIN CREAM 15 GM TUBE TP SCH ×2 (09:18→22:15)
[2019-04-27] MEDS: Z GUARD REMEDY 4 OZ OINT TP SCH ×2 (09:18→22:15)
[2019-04-27] MEDS: INSULIN ASPART/LISPRO 100 UNIT/ML CARTRIDGE SQ PRN ×2 (12:06→17:33)
[2019-04-27] MEDS: ONDANSETRON 4 MG TAB.RAPDIS GT PRN (18:46)
[2019-04-27] MEDS: INSULIN GLARGINE,BASAGLAR 100 UNIT/ML INSULN.PEN SQ SCH (21:22)
[2019-04-28] VITALS (8 sets, daily range): BP systolic 114–160; BP diastolic 59–85
[2019-04-28] MEDS: BLOOD SUGAR DIAGNOSTIC 1 EACH STRIP IN SCH ×4 (00:39→17:36)
[2019-04-28] MEDS: POLYVINYL ALCOHOL 15 ML BOTTLE EACHEYE SCH ×4 (00:39→17:36)
[2019-04-28] MEDS: INSULIN ASPART/LISPRO 100 UNIT/ML CARTRIDGE SQ PRN ×4 (00:40→17:36)
[2019-04-28] MEDS: HYDROGEN PEROXIDE 480 ML BOTTLE TP SCH ×2 (08:00→21:00)
[2019-04-28] MEDS: ZINC SULFATE 220 MG CAPSULE GT SCH (09:31)
[2019-04-28] MEDS: SUCRALFATE 1 G/10 ML UDC GT SCH (09:31)
[2019-04-28] MEDS: OMEPRAZOLE 20 MG CAPSULE.DR GT SCH (09:31)
[2019-04-28] MEDS: PROSOURCE / PROSTAT (PYXIS) 30 ML UDC GT SCH ×3 (09:31→17:36)
[2019-04-28] MEDS: CALCITRIOL ORAL SOLUTION 1 MCG/ML NG SCH (09:31)
[2019-04-28] MEDS: VIT B CMPLX 3/FA/VIT C/BIOTIN 1 TAB TABLET GT SCH (09:31)
[2019-04-28] MEDS: HYDROCODONE/APAP 5/325MG 1 EACH TABLET GT SCH ×3 (09:31→22:00)
[2019-04-28] MEDS: LACTOBACILLUS RHAMNOSUS GG 1 EACH CAP.SPRINK GT SCH ×2 (09:31→17:36)
[2019-04-28] MEDS: METOPROLOL TARTRATE 50 MG TABLET GT SCH ×2 (09:31→21:00)
[2019-04-28] MEDS: ASCORBIC ACID 500 MG TABLET GT SCH (09:31)
[2019-04-28] MEDS: INSULIN GLARGINE,BASAGLAR 100 UNIT/ML INSULN.PEN SQ SCH ×2 (09:32→21:00)
[2019-04-28] MEDS: POVIDONE-IODINE OINT 28.4 GM TUBE TP SCH ×2 (10:00)
[2019-04-28] MEDS: BETADINE TP SCH (10:00)
[2019-04-28] MEDS: Z GUARD REMEDY 4 OZ OINT TP SCH ×2 (10:00→21:00)
[2019-04-28] MEDS: KETOCONAZOLE SHAMPOO 120 ML BOTTLE TP SCH (10:00)
[2019-04-28] MEDS: TRIAMCINOLONE ACETONIDE 0.1% CR 15 GM TUBE TP SCH ×4 (10:00→21:00)
[2019-04-28] MEDS: NYSTATIN CREAM 15 GM TUBE TP SCH ×2 (10:00→21:00)
[2019-04-28] MEDS: HYDROGEL DRESSING 90 GM TUBE TP SCH ×6 (10:00→21:00)
--- NOTE | 2019-04-28 13:14 | NUR ---
Ice Cream Vault Worker Dr Amin said she will see pt today after work hours. Addendum: 04/28/19 at 1843 by [address]MO BE[address] RN [address] Anders
--- NOTE | 2019-04-28 14:48 | NUR ---
Environmental Sciences Professor consult: RADHA received call from Romy Anders, christian science healer covering for Dr. Self. Dr. Anders stated that she will be coming in to see the patient today after [address]. [address] Anders with Dr. Mcdonald office # and transferred her to speak with Charge Nurse as Dr. Anders wanted brief Hx. on patients skin condition and how the derma visits normally happen. RADHA called residents , Janet [phone] to communicate the above stated information. Janet expressed being very thankful for pt. care. RADHA will keep Janet updated.
--- NOTE | 2019-04-28 18:35 | NUR ---
Seen by embossograph operator Dr Anders. She discussed her recommendations with Dr Dia. He ordered to give Ivermectin 200 mcg/kg via GT x 1 dose, may repeat in [address] Anders aware that test for scabies was negative but she recommended to treat scabies empirically. Also received order to apply hydrocortisone 2.5 % cream to face, groin, underarms q shift for 14 days then re-evaluate, and Amlactin cream to body rashes q shift for 30 days which may be applied on top of Triamcinolone cream. Dr Anders said to continue Triamcinolone cream for rashes.
[2019-04-28] MEDS: HYDROCORTISONE 2.5% CREAM 28.4 GM TUBE TP SCH (21:00)
[2019-04-28] MEDS: AMMONIUM LACTATE 227 GM BOTTLE TP SCH (21:00)
[2019-04-29] VITALS (8 sets, daily range): BP systolic 118–142; BP diastolic 47–77
[2019-04-29] MEDS: BLOOD SUGAR DIAGNOSTIC 1 EACH STRIP IN SCH ×4 (00:42→17:18)
[2019-04-29] MEDS: POLYVINYL ALCOHOL 15 ML BOTTLE EACHEYE SCH ×4 (00:42→17:18)
[2019-04-29] MEDS: INSULIN ASPART/LISPRO 100 UNIT/ML CARTRIDGE SQ PRN ×4 (00:43→17:19)
[2019-04-29] MEDS ORDERED: IVERMECTIN 3 MG TABLET GT ONE (09:00)
[2019-04-29] MEDS: HYDROGEN PEROXIDE 480 ML BOTTLE TP SCH ×2 (09:10→20:46)
[2019-04-29] MEDS: HYDROCODONE/APAP 5/325MG 1 EACH TABLET GT SCH ×2 (09:53→21:16)
[2019-04-29] MEDS: VIT B CMPLX 3/FA/VIT C/BIOTIN 1 TAB TABLET GT SCH (09:56)
[2019-04-29] MEDS: LACTOBACILLUS RHAMNOSUS GG 1 EACH CAP.SPRINK GT SCH ×2 (09:56→17:17)
[2019-04-29] MEDS: SUCRALFATE 1 G/10 ML UDC GT SCH (09:56)
[2019-04-29] MEDS: OMEPRAZOLE 20 MG CAPSULE.DR GT SCH (09:56)
[2019-04-29] MEDS: CALCITRIOL ORAL SOLUTION 1 MCG/ML NG SCH (09:57)
[2019-04-29] MEDS: PROSOURCE / PROSTAT (PYXIS) 30 ML UDC GT SCH ×3 (09:57→17:17)
[2019-04-29] MEDS: ASCORBIC ACID 500 MG TABLET GT SCH (09:57)
[2019-04-29] MEDS: ZINC SULFATE 220 MG CAPSULE GT SCH (09:57)
[2019-04-29] MEDS: METOPROLOL TARTRATE 50 MG TABLET GT SCH ×2 (09:59→21:16)
[2019-04-29] MEDS: INSULIN GLARGINE,BASAGLAR 100 UNIT/ML INSULN.PEN SQ SCH ×2 (10:02→21:18)
[2019-04-29] MEDS: POVIDONE-IODINE OINT 28.4 GM TUBE TP SCH (10:30)
[2019-04-29] MEDS: HYDROGEL DRESSING 90 GM TUBE TP SCH ×6 (10:30→22:00)
[2019-04-29] MEDS: AMMONIUM LACTATE 227 GM BOTTLE TP SCH ×2 (10:30→22:00)
[2019-04-29] MEDS: NYSTATIN CREAM 15 GM TUBE TP SCH ×2 (10:30→22:00)
[2019-04-29] MEDS: Z GUARD REMEDY 4 OZ OINT TP SCH ×2 (10:30→22:00)
[2019-04-29] MEDS: TRIAMCINOLONE ACETONIDE 0.1% CR 15 GM TUBE TP SCH ×4 (10:30→22:00)
[2019-04-29] MEDS: HYDROCORTISONE 2.5% CREAM 28.4 GM TUBE TP SCH ×2 (10:30→22:00)
[2019-04-29] MEDS: NEPRO 1,000 ML BOTTLE GT PRN (11:54)
--- NOTE | 2019-04-29 12:45 | NUR ---
Resident picked by Ambulance via gurney for hemodialyis treatment, accompanied by 2 EMT's and 1 RT. Resident RT upper chest HD catheter intact, no bleeding, covered with dressing, clean and dry. Resident left the building in stable condition. Pt afebrile.
[2019-04-29] MEDS: NEUTRA PHOS 1 POWD.PACKET GT SCH (14:00)
--- NOTE | 2019-04-29 14:00 | NUR ---
Notified Dr. Dia of [facility] non profit director's recommendations to give Neutraphos 1 packet daily, due to Phosphorus level trending high. Dr. Dia in agreement. New order given.
--- NOTE | 2019-04-29 16:03 | NUR ---
SW received call from residents Janet [phone] and Daughter, Adrienne . Pt.s , Janet stated that she was currently in the unit and wanted to meet SW in person. SW met with family in unit hallway. Janet expressed her contentment for [facility] care stating, my husbands condition has improved greatly while hes been here. Janet briefed SW on the pt.s medical history. SW used empathetic listening and validated their experience. Adrienne stated that shes been having a difficult time adjusting to the pt.s condition and stated that she has episodes of sadness. SW validated and normalized Norma grief and provided psychoeducation informing family about symptoms that may be present when loss occurs. SW will follow-up and offer mental health resources to family.
--- NOTE | 2019-04-29 17:10 | NUR ---
Resident returned from S/P hemodialyis treatment, no s/s of any complications noted. HD site intact, no bleeding noted, covered with dressing, clean and dry. Resident in stable condition. Afebrile. Kept comfortable in bed.
--- NOTE | 2019-04-29 17:25 | NUR ---
RT NOTES TRACH TUBE IN PLACE, PATENT, AND SECURED WITH TRACH TIE. ALARMS ON AND AUDIBLE. VENT PLUGGED IN TO RED OUTLET. AMBU BAG AND BACK UP TRACH BY THE BEDSIDE. NO RESP DISTRESS AT THIS TIME. PT LEFT FACILITY FOR DIALYSIS. RETURNED AT 1730. NO SIGNS OF ANY DISTRESS AT THIS TIME. Addendum: 04/29/19 at 1726 by ONEL VEGA RT Amended: Links added.
[2019-04-30 00:10] VITALS: BP 148/77
[2019-04-30] MEDS: BLOOD SUGAR DIAGNOSTIC 1 EACH STRIP IN SCH ×4 (00:19→17:38)
[2019-04-30] MEDS: POLYVINYL ALCOHOL 15 ML BOTTLE EACHEYE SCH ×4 (00:19→17:38)
[2019-04-30] MEDS: INSULIN ASPART/LISPRO 100 UNIT/ML CARTRIDGE SQ PRN ×4 (00:20→17:39)
[2019-04-30 04:30] VITALS: BP 125/71
[2019-04-30 08:16] VITALS: BP 140/45
[2019-04-30] MEDS: VIT B CMPLX 3/FA/VIT C/BIOTIN 1 TAB TABLET GT SCH (08:49)
[2019-04-30] MEDS: LACTOBACILLUS RHAMNOSUS GG 1 EACH CAP.SPRINK GT SCH ×2 (08:49→17:38)
[2019-04-30] MEDS: NEUTRA PHOS 1 POWD.PACKET GT SCH ×2 (08:49)
[2019-04-30] MEDS: SUCRALFATE 1 G/10 ML UDC GT SCH (08:49)
[2019-04-30] MEDS: OMEPRAZOLE 20 MG CAPSULE.DR GT SCH (08:50)
[2019-04-30] MEDS: ZINC SULFATE 220 MG CAPSULE GT SCH (08:50)
[2019-04-30] MEDS: PROSOURCE / PROSTAT (PYXIS) 30 ML UDC GT SCH ×3 (08:50→17:38)
[2019-04-30] MEDS: HYDROCODONE/APAP 5/325MG 1 EACH TABLET GT SCH ×2 (08:50→21:29)
[2019-04-30] MEDS: ASCORBIC ACID 500 MG TABLET GT SCH (08:50)
[2019-04-30] MEDS: CALCITRIOL ORAL SOLUTION 1 MCG/ML NG SCH (08:50)
[2019-04-30] MEDS: INSULIN GLARGINE,BASAGLAR 100 UNIT/ML INSULN.PEN SQ SCH ×2 (08:51→21:31)
[2019-04-30] MEDS: METOPROLOL TARTRATE 50 MG TABLET GT SCH ×2 (08:52→21:28)
[2019-04-30] MEDS: HYDROGEN PEROXIDE 480 ML BOTTLE TP SCH ×2 (09:00→20:08)
[2019-04-30] MEDS: Z GUARD REMEDY 4 OZ OINT TP SCH ×2 (09:30→22:00)
[2019-04-30] MEDS: POVIDONE-IODINE OINT 28.4 GM TUBE TP SCH (09:30)
[2019-04-30] MEDS: NYSTATIN CREAM 15 GM TUBE TP SCH ×2 (09:30→22:00)
[2019-04-30] MEDS: HYDROCORTISONE 2.5% CREAM 28.4 GM TUBE TP SCH ×2 (09:30→22:00)
[2019-04-30] MEDS: TRIAMCINOLONE ACETONIDE 0.1% CR 15 GM TUBE TP SCH ×4 (09:30→22:00)
[2019-04-30] MEDS: AMMONIUM LACTATE 227 GM BOTTLE TP SCH ×2 (09:30→22:00)
[2019-04-30] MEDS: HYDROGEL DRESSING 90 GM TUBE TP SCH ×6 (09:30→22:00)
[2019-04-30 12:00] VITALS: BP 133/52
[2019-04-30] MEDS: NEPRO 1,000 ML BOTTLE GT PRN (15:28)
[2019-04-30 16:00] VITALS: BP 154/80
[2019-04-30 21:03] VITALS: BP 157/69
[2019-05-01] VITALS (7 sets, daily range): BP systolic 131–160; BP diastolic 54–85
[2019-05-01] MEDS: BLOOD SUGAR DIAGNOSTIC 1 EACH STRIP IN SCH ×5 (00:30→23:39)
[2019-05-01] MEDS: INSULIN ASPART/LISPRO 100 UNIT/ML CARTRIDGE SQ PRN ×5 (01:09→23:49)
--- NOTE | 2019-05-01 04:10 | NUR ---
PATIENT RECEIVED ON TRACH TO VENT WITH SETTINGS OF AC 18, 500 Vt, 40%, +5. SUCTIONED FOR MINIMAL, THIN, YELLOW SECRETIONS. AMBU BAG AT BEDSIDE. VENT AND PULSE OXIMETER ALARMS AUDIBLE AND VISIBLE. Addendum: 05/01/19 at 0411 by KIA BRIGGS RT Amended: Links added.
[2019-05-01] MEDS: POLYVINYL ALCOHOL 15 ML BOTTLE EACHEYE SCH ×5 (05:32→23:39)
[2019-05-01] MEDS: SUCRALFATE 1 G/10 ML UDC GT SCH (08:39)
[2019-05-01] MEDS: NEUTRA PHOS 1 POWD.PACKET GT SCH ×2 (08:39)
[2019-05-01] MEDS: LACTOBACILLUS RHAMNOSUS GG 1 EACH CAP.SPRINK GT SCH ×2 (08:39→17:40)
[2019-05-01] MEDS: VIT B CMPLX 3/FA/VIT C/BIOTIN 1 TAB TABLET GT SCH (08:39)
[2019-05-01] MEDS: OMEPRAZOLE 20 MG CAPSULE.DR GT SCH (08:39)
[2019-05-01] MEDS: PROSOURCE / PROSTAT (PYXIS) 30 ML UDC GT SCH ×3 (08:40→17:40)
[2019-05-01] MEDS: ZINC SULFATE 220 MG CAPSULE GT SCH (08:40)
[2019-05-01] MEDS: CALCITRIOL ORAL SOLUTION 1 MCG/ML NG SCH (08:40)
[2019-05-01] MEDS: ASCORBIC ACID 500 MG TABLET GT SCH (08:40)
[2019-05-01] MEDS: HYDROCODONE/APAP 5/325MG 1 EACH TABLET GT SCH ×2 (08:42→22:00)
[2019-05-01] MEDS: METOPROLOL TARTRATE 50 MG TABLET GT SCH ×2 (08:42→20:54)
[2019-05-01] MEDS: INSULIN GLARGINE,BASAGLAR 100 UNIT/ML INSULN.PEN SQ SCH ×2 (08:43→21:14)
[2019-05-01] MEDS: HYDROGEN PEROXIDE 480 ML BOTTLE TP SCH ×2 (09:00→21:03)
[2019-05-01] MEDS: HYDROCORTISONE 2.5% CREAM 28.4 GM TUBE TP SCH ×2 (10:20→21:03)
[2019-05-01] MEDS: AMMONIUM LACTATE 227 GM BOTTLE TP SCH ×2 (10:20→21:04)
[2019-05-01] MEDS: HYDROGEL DRESSING 90 GM TUBE TP SCH ×6 (10:20→21:03)
[2019-05-01] MEDS: TRIAMCINOLONE ACETONIDE 0.1% CR 15 GM TUBE TP SCH ×4 (10:20→21:03)
[2019-05-01] MEDS: POVIDONE-IODINE OINT 28.4 GM TUBE TP SCH (10:20)
[2019-05-01] MEDS: NYSTATIN CREAM 15 GM TUBE TP SCH ×2 (10:20→21:03)
[2019-05-01] MEDS: Z GUARD REMEDY 4 OZ OINT TP SCH ×2 (10:20→21:04)
[2019-05-01] MEDS: NEPRO 1,000 ML BOTTLE GT PRN (13:00)
[2019-05-02] VITALS (8 sets, daily range): BP systolic 102–156; BP diastolic 49–92
[2019-05-02] MEDS: BLOOD SUGAR DIAGNOSTIC 1 EACH STRIP IN SCH ×3 (06:05→17:27)
[2019-05-02] MEDS: POLYVINYL ALCOHOL 15 ML BOTTLE EACHEYE SCH ×3 (06:06→17:27)
[2019-05-02] MEDS: INSULIN ASPART/LISPRO 100 UNIT/ML CARTRIDGE SQ PRN ×3 (06:21→17:29)
[2019-05-02] MEDS: SUCRALFATE 1 G/10 ML UDC GT SCH (08:49)
[2019-05-02] MEDS: LACTOBACILLUS RHAMNOSUS GG 1 EACH CAP.SPRINK GT SCH ×2 (08:50→17:26)
[2019-05-02] MEDS: HYDROCODONE/APAP 5/325MG 1 EACH TABLET GT SCH ×2 (08:51→21:16)
[2019-05-02] MEDS: METOPROLOL TARTRATE 50 MG TABLET GT SCH ×2 (08:51→21:00)
[2019-05-02] MEDS: VIT B CMPLX 3/FA/VIT C/BIOTIN 1 TAB TABLET GT SCH (08:51)
[2019-05-02] MEDS: CALCITRIOL ORAL SOLUTION 1 MCG/ML NG SCH (08:51)
[2019-05-02] MEDS: PROSOURCE / PROSTAT (PYXIS) 30 ML UDC GT SCH ×3 (08:51→17:26)
[2019-05-02] MEDS: OMEPRAZOLE 20 MG CAPSULE.DR GT SCH (08:51)
[2019-05-02] MEDS: ZINC SULFATE 220 MG CAPSULE GT SCH (08:51)
[2019-05-02] MEDS: ASCORBIC ACID 500 MG TABLET GT SCH (08:51)
[2019-05-02] MEDS: NEUTRA PHOS 1 POWD.PACKET GT SCH ×2 (08:51)
[2019-05-02] MEDS: INSULIN GLARGINE,BASAGLAR 100 UNIT/ML INSULN.PEN SQ SCH ×2 (08:52→21:17)
[2019-05-02] MEDS: HYDROGEN PEROXIDE 480 ML BOTTLE TP SCH ×2 (09:00→21:00)
[2019-05-02] MEDS: HYDROGEL DRESSING 90 GM TUBE TP SCH ×5 (09:30→21:18)
[2019-05-02] MEDS: HYDROCORTISONE 2.5% CREAM 28.4 GM TUBE TP SCH ×2 (09:30→21:18)
[2019-05-02] MEDS: NYSTATIN CREAM 15 GM TUBE TP SCH ×2 (09:30→21:18)
[2019-05-02] MEDS: Z GUARD REMEDY 4 OZ OINT TP SCH ×2 (09:30→21:18)
[2019-05-02] MEDS: ONDANSETRON 4 MG TAB.RAPDIS GT PRN (09:30)
[2019-05-02] MEDS: POVIDONE-IODINE OINT 28.4 GM TUBE TP SCH (09:30)
[2019-05-02] MEDS: AMMONIUM LACTATE 227 GM BOTTLE TP SCH ×2 (09:30→21:18)
[2019-05-02] MEDS: TRIAMCINOLONE ACETONIDE 0.1% CR 15 GM TUBE TP SCH ×4 (09:30→21:17)
--- NOTE | 2019-05-02 12:45 | NUR ---
Resident picked up by Ambulance via gurney for hemodialyis treatment, accompanied by 2 EMT's and 1 RT. RT upper chest HD catheter site intact, no bleeding noted, covered with dressing, clean and dry. Resident left the building in stable condition.
--- NOTE | 2019-05-02 16:30 | NUR ---
Resident returned from S/P hemodialyis treatment, no /s of any complications noted. Afebrile. No respiratory distress noted. RT upper chest HD catheter site intact, no bleeding noted. Covered with dressing, clean and dry. Kept comfortable in bed.
[2019-05-02] MEDS: NEPRO 1,000 ML BOTTLE GT PRN (17:27)
[2019-05-03] VITALS (7 sets, daily range): BP systolic 127–138; BP diastolic 51–81
[2019-05-03] MEDS: BLOOD SUGAR DIAGNOSTIC 1 EACH STRIP IN SCH ×4 (00:19→17:43)
[2019-05-03] MEDS: POLYVINYL ALCOHOL 15 ML BOTTLE EACHEYE SCH ×4 (00:19→17:43)
[2019-05-03] MEDS: INSULIN ASPART/LISPRO 100 UNIT/ML CARTRIDGE SQ PRN ×4 (00:20→17:43)
[2019-05-03] MEDS: HYDROGEN PEROXIDE 480 ML BOTTLE TP SCH ×2 (08:26→21:08)
[2019-05-03] MEDS: NEUTRA PHOS 1 POWD.PACKET GT SCH (09:48)
[2019-05-03] MEDS: VIT B CMPLX 3/FA/VIT C/BIOTIN 1 TAB TABLET GT SCH (09:48)
[2019-05-03] MEDS: LACTOBACILLUS RHAMNOSUS GG 1 EACH CAP.SPRINK GT SCH ×2 (09:48→17:42)
[2019-05-03] MEDS: METOPROLOL TARTRATE 50 MG TABLET GT SCH ×2 (09:48→21:06)
[2019-05-03] MEDS: SUCRALFATE 1 G/10 ML UDC GT SCH (09:48)
[2019-05-03] MEDS: HYDROCODONE/APAP 5/325MG 1 EACH TABLET GT SCH ×2 (09:49→21:07)
[2019-05-03] MEDS: ASCORBIC ACID 500 MG TABLET GT SCH (09:49)
[2019-05-03] MEDS: PROSOURCE / PROSTAT (PYXIS) 30 ML UDC GT SCH ×3 (09:49→17:43)
[2019-05-03] MEDS: OMEPRAZOLE 20 MG CAPSULE.DR GT SCH (09:49)
[2019-05-03] MEDS: CALCITRIOL ORAL SOLUTION 1 MCG/ML NG SCH (09:49)
[2019-05-03] MEDS: ZINC SULFATE 220 MG CAPSULE GT SCH (09:49)
[2019-05-03] MEDS: INSULIN GLARGINE,BASAGLAR 100 UNIT/ML INSULN.PEN SQ SCH ×2 (09:50→21:07)
[2019-05-03] MEDS: HYDROGEL DRESSING 90 GM TUBE TP SCH ×5 (10:30→21:08)
[2019-05-03] MEDS: POVIDONE-IODINE OINT 28.4 GM TUBE TP SCH (10:30)
[2019-05-03] MEDS: AMMONIUM LACTATE 227 GM BOTTLE TP SCH ×2 (10:30→21:08)
[2019-05-03] MEDS: HYDROCORTISONE 2.5% CREAM 28.4 GM TUBE TP SCH ×2 (10:30→21:08)
[2019-05-03] MEDS: NYSTATIN CREAM 15 GM TUBE TP SCH ×2 (10:30→21:08)
[2019-05-03] MEDS: Z GUARD REMEDY 4 OZ OINT TP SCH ×2 (10:30→21:08)
[2019-05-03] MEDS: TRIAMCINOLONE ACETONIDE 0.1% CR 15 GM TUBE TP SCH ×4 (10:30→21:08)
--- NOTE | 2019-05-03 15:23 | NUR ---
IDT Care Plan Conference Invitation to family: RADHA communicated to pt.s daughter, Adrienne Bravo [phone] that the next IDT meeting will be taking place this May 06 from 12:30-1:30pm in the [facility] activities room. Per Adrienne she would like to participate via phone conference. RADHA informed charge nurse.
--- NOTE | 2019-05-03 17:15 | NUR ---
Relayed pt's blood sugar levels to Dr Dia. He ordered to increase Basaglar Kwikpen insulin from 17 to 20 units SC q 12. Notified pt's daughter.
[2019-05-04] VITALS (7 sets, daily range): BP systolic 119–166; BP diastolic 63–78
[2019-05-04] MEDS: BLOOD SUGAR DIAGNOSTIC 1 EACH STRIP IN SCH ×4 (00:15→18:21)
[2019-05-04] MEDS: POLYVINYL ALCOHOL 15 ML BOTTLE EACHEYE SCH ×4 (00:15→18:21)
[2019-05-04] MEDS: INSULIN ASPART/LISPRO 100 UNIT/ML CARTRIDGE SQ PRN ×3 (00:16→18:30)
--- NOTE | 2019-05-04 08:30 | NUR ---
Seen and examined by Dr. Dia with new order and carried out. Tobradex ophthalmic drops 1 drop to both eyes q 4 hrs x 5 days for eye redness. RP informed.
[2019-05-04] MEDS: PROSOURCE / PROSTAT (PYXIS) 30 ML UDC GT SCH ×3 (09:00→17:00)
[2019-05-04] MEDS: LACTOBACILLUS RHAMNOSUS GG 1 EACH CAP.SPRINK GT SCH ×2 (09:00→17:00)
[2019-05-04] MEDS: ZINC SULFATE 220 MG CAPSULE GT SCH (09:00)
[2019-05-04] MEDS: SUCRALFATE 1 G/10 ML UDC GT SCH (09:00)
[2019-05-04] MEDS: VIT B CMPLX 3/FA/VIT C/BIOTIN 1 TAB TABLET GT SCH (09:00)
[2019-05-04] MEDS: HYDROCODONE/APAP 5/325MG 1 EACH TABLET GT SCH ×2 (09:00→20:59)
[2019-05-04] MEDS: CALCITRIOL ORAL SOLUTION 1 MCG/ML NG SCH (09:00)
[2019-05-04] MEDS: AMMONIUM LACTATE 227 GM BOTTLE TP SCH ×2 (09:00→21:41)
[2019-05-04] MEDS: POVIDONE-IODINE OINT 28.4 GM TUBE TP SCH (09:00)
[2019-05-04] MEDS: ASCORBIC ACID 500 MG TABLET GT SCH (09:00)
[2019-05-04] MEDS: HYDROGEL DRESSING 90 GM TUBE TP SCH ×5 (09:00→21:40)
[2019-05-04] MEDS: HYDROCORTISONE 2.5% CREAM 28.4 GM TUBE TP SCH ×2 (09:00→21:41)
[2019-05-04] MEDS: TRIAMCINOLONE ACETONIDE 0.1% CR 15 GM TUBE TP SCH ×4 (09:00→21:39)
[2019-05-04] MEDS: OMEPRAZOLE 20 MG CAPSULE.DR GT SCH (09:00)
[2019-05-04] MEDS: Z GUARD REMEDY 4 OZ OINT TP SCH ×2 (09:00→21:41)
[2019-05-04] MEDS: METOPROLOL TARTRATE 50 MG TABLET GT SCH ×2 (09:00→20:58)
[2019-05-04] MEDS: INSULIN GLARGINE,BASAGLAR 100 UNIT/ML INSULN.PEN SQ SCH ×2 (09:00→21:32)
[2019-05-04] MEDS: NYSTATIN CREAM 15 GM TUBE TP SCH ×2 (09:00→21:41)
[2019-05-04] MEDS: HYDROGEN PEROXIDE 480 ML BOTTLE TP SCH (09:00)
[2019-05-04] MEDS: NEUTRA PHOS 1 POWD.PACKET GT SCH (09:00)
--- NOTE | 2019-05-04 12:30 | NUR ---
Seen and examined by Joan Phipps NP no new order given.
[2019-05-04] MEDS ORDERED: TOBRAMYCIN OPHTH 5ML 5 ML BOTTLE EACHEYE SCH (13:00)
[2019-05-04] MEDS: TOBRAMYCIN/DEXAMETH OPHTH DORPS 2.5 ML BOTTLE EACHEYE SCH ×2 (17:00→20:58)
[2019-05-05] VITALS (8 sets, daily range): BP systolic 121–173; BP diastolic 52–90
[2019-05-05] MEDS: TOBRAMYCIN/DEXAMETH OPHTH DORPS 2.5 ML BOTTLE EACHEYE SCH ×6 (00:33→20:56)
[2019-05-05] MEDS: BLOOD SUGAR DIAGNOSTIC 1 EACH STRIP IN SCH ×5 (00:33→23:11)
[2019-05-05] MEDS: POLYVINYL ALCOHOL 15 ML BOTTLE EACHEYE SCH ×5 (00:33→23:11)
[2019-05-05] MEDS: INSULIN ASPART/LISPRO 100 UNIT/ML CARTRIDGE SQ PRN ×5 (00:34→23:12)
--- NOTE | 2019-05-05 03:33 | NUR ---
PATIENT RECEIVED ON AC 18, 500 Vt. 40%. +5. GIVEN IN-LINE TREATMENTS WITH NO ADVERSE REACTIONS. AMBU BAG AT BEDSIDE. VENT AND PULSE OXIMETER ALARMS AUDIBLE AND VISIBLE. Addendum: 05/05/19 at 0337 by KIA BRIGGS RT Amended: Links added.
[2019-05-05] MEDS: NEPRO 1,000 ML BOTTLE GT PRN (06:11)
[2019-05-05] MEDS: ONDANSETRON 4 MG TAB.RAPDIS GT PRN ×2 (07:30→15:30)
[2019-05-05] MEDS: HYDROGEN PEROXIDE 480 ML BOTTLE TP SCH ×2 (08:23→20:58)
[2019-05-05] MEDS: SUCRALFATE 1 G/10 ML UDC GT SCH (08:39)
[2019-05-05] MEDS: ASCORBIC ACID 500 MG TABLET GT SCH (08:39)
[2019-05-05] MEDS: ZINC SULFATE 220 MG CAPSULE GT SCH (08:39)
[2019-05-05] MEDS: CALCITRIOL ORAL SOLUTION 1 MCG/ML NG SCH (08:39)
[2019-05-05] MEDS: PROSOURCE / PROSTAT (PYXIS) 30 ML UDC GT SCH ×3 (08:39→17:08)
[2019-05-05] MEDS: VIT B CMPLX 3/FA/VIT C/BIOTIN 1 TAB TABLET GT SCH (08:39)
[2019-05-05] MEDS: OMEPRAZOLE 20 MG CAPSULE.DR GT SCH (08:39)
[2019-05-05] MEDS: NEUTRA PHOS 1 POWD.PACKET GT SCH (08:42)
[2019-05-05] MEDS: HYDROCODONE/APAP 5/325MG 1 EACH TABLET GT SCH ×2 (08:42→20:57)
[2019-05-05] MEDS: METOPROLOL TARTRATE 50 MG TABLET GT SCH ×2 (08:43→20:57)
[2019-05-05] MEDS: INSULIN GLARGINE,BASAGLAR 100 UNIT/ML INSULN.PEN SQ SCH ×2 (08:48→20:58)
[2019-05-05] MEDS: LACTOBACILLUS RHAMNOSUS GG 1 EACH CAP.SPRINK GT SCH ×2 (08:56→17:08)
[2019-05-05] MEDS: TRIAMCINOLONE ACETONIDE 0.1% CR 15 GM TUBE TP SCH ×4 (09:30→20:58)
[2019-05-05] MEDS: Z GUARD REMEDY 4 OZ OINT TP SCH ×2 (09:30→20:58)
[2019-05-05] MEDS: HYDROCORTISONE 2.5% CREAM 28.4 GM TUBE TP SCH ×2 (09:30→20:58)
[2019-05-05] MEDS: AMMONIUM LACTATE 227 GM BOTTLE TP SCH ×2 (09:30→20:58)
[2019-05-05] MEDS: HYDROGEL DRESSING 90 GM TUBE TP SCH ×5 (09:30→20:58)
[2019-05-05] MEDS: KETOCONAZOLE SHAMPOO 120 ML BOTTLE TP SCH (09:30)
[2019-05-05] MEDS: NYSTATIN CREAM 15 GM TUBE TP SCH ×2 (09:30→20:58)
[2019-05-05] MEDS: POVIDONE-IODINE OINT 28.4 GM TUBE TP SCH (09:30)
--- NOTE | 2019-05-05 13:46 | NUR ---
Per charge nurses request RADHA contacted [facility] [[address] [place] [address]; [phone]] and spoke to Anders. Per charge nurse, [facility] [[address] [facility] [address]; TEL:[phone]] changed pt.s dialysis appointment to 12:45pm starting 05/06/19. Per Anders, she noted the change in her records and the new pick-up time will be 12:15pm so that the pt. can arrive at [facility] by 12:45pm. RADHA communicated to charge nurse and family.
--- NOTE | 2019-05-05 21:19 | NUR ---
Seen and examined by Joan SOTELO.
--- NOTE | 2019-05-05 22:36 | NUR ---
Pt rec'd trached on [facility] vent settings as charted. no resp distress or sob noted. trach is patent and secured. sx'd for thick mod amt of pale yellow secretions. alarms are set and audible. vent plugged into red outlet. ambu bag bedside. will continue to monitor. Addendum: 05/05/19 at 2236 by MANISH DOMINGUEZ RT Amended: Links added.
[2019-05-06] VITALS (8 sets, daily range): BP systolic 123–156; BP diastolic 49–84
[2019-05-06] MEDS: TOBRAMYCIN/DEXAMETH OPHTH DORPS 2.5 ML BOTTLE EACHEYE SCH ×6 (00:23→20:26)
[2019-05-06] MEDS: POLYVINYL ALCOHOL 15 ML BOTTLE EACHEYE SCH ×4 (05:28→23:50)
[2019-05-06] MEDS: NEPRO 1,000 ML BOTTLE GT PRN (05:28)
[2019-05-06] MEDS: BLOOD SUGAR DIAGNOSTIC 1 EACH STRIP IN SCH ×4 (05:28→23:50)
[2019-05-06] MEDS: INSULIN ASPART/LISPRO 100 UNIT/ML CARTRIDGE SQ PRN ×4 (05:29→23:52)
[2019-05-06] MEDS: HYDROGEN PEROXIDE 480 ML BOTTLE TP SCH ×2 (09:00→20:28)
[2019-05-06] MEDS: TRIAMCINOLONE ACETONIDE 0.1% CR 15 GM TUBE TP SCH ×4 (09:00→20:28)
[2019-05-06] MEDS: AMMONIUM LACTATE 227 GM BOTTLE TP SCH ×2 (09:00→20:29)
[2019-05-06] MEDS: NYSTATIN CREAM 15 GM TUBE TP SCH ×2 (09:00→20:29)
[2019-05-06] MEDS: Z GUARD REMEDY 4 OZ OINT TP SCH ×2 (09:00→20:29)
[2019-05-06] MEDS: HYDROGEL DRESSING 90 GM TUBE TP SCH ×5 (09:00→20:28)
[2019-05-06] MEDS: POVIDONE-IODINE OINT 28.4 GM TUBE TP SCH (09:00)
[2019-05-06] MEDS: HYDROCORTISONE 2.5% CREAM 28.4 GM TUBE TP SCH ×2 (09:00→20:28)
[2019-05-06] MEDS: INSULIN GLARGINE,BASAGLAR 100 UNIT/ML INSULN.PEN SQ SCH ×2 (09:00→21:12)
[2019-05-06] MEDS: LACTOBACILLUS RHAMNOSUS GG 1 EACH CAP.SPRINK GT SCH ×2 (09:23→16:34)
[2019-05-06] MEDS: SUCRALFATE 1 G/10 ML UDC GT SCH (09:23)
[2019-05-06] MEDS: HYDROCODONE/APAP 5/325MG 1 EACH TABLET GT SCH ×2 (09:24→20:28)
[2019-05-06] MEDS: ASCORBIC ACID 500 MG TABLET GT SCH (09:24)
[2019-05-06] MEDS: METOPROLOL TARTRATE 50 MG TABLET GT SCH ×2 (09:24→20:27)
[2019-05-06] MEDS: VIT B CMPLX 3/FA/VIT C/BIOTIN 1 TAB TABLET GT SCH (09:24)
[2019-05-06] MEDS: NEUTRA PHOS 1 POWD.PACKET GT SCH (09:24)
[2019-05-06] MEDS: CALCITRIOL ORAL SOLUTION 1 MCG/ML NG SCH (09:24)
[2019-05-06] MEDS: OMEPRAZOLE 20 MG CAPSULE.DR GT SCH (09:24)
[2019-05-06] MEDS: ZINC SULFATE 220 MG CAPSULE GT SCH (09:24)
[2019-05-06] MEDS: PROSOURCE / PROSTAT (PYXIS) 30 ML UDC GT SCH ×3 (09:24→16:34)
--- NOTE | 2019-05-06 13:40 | NUR ---
IDT meeting held today, pt's daughter and participated via phone conference. Current plan of care discussed in detail. Dr Rocha ordered to place pt on SIMV 4 PS 15 PEEP +5, ABG in 2 hours on 05/09/19. Addendum: 05/06/19 at 1717 by GUILLERMO BEARD RN Sputum culture result still shows CRE. 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 Result also relayed to Dr Rocha and he agreed with LOPEZ Phipps.
--- NOTE | 2019-05-06 21:13 | NUR ---
Pt Rec'd trached on [facility] vent settings as charted. no resp distress or sob noted. trach is patent and secured. sx'd for thick mod amt of pale yellow secretions. alarms are set audible. vent plugged into red outlet. ambu bag bedside. will continue to monitor. Addendum: 05/06/19 at 2113 by MANISH DOMINGUEZ RT Amended: Links added.
[2019-05-07] VITALS (7 sets, daily range): BP systolic 139–165; BP diastolic 63–89
[2019-05-07] MEDS: TOBRAMYCIN/DEXAMETH OPHTH DORPS 2.5 ML BOTTLE EACHEYE SCH ×6 (00:28→21:24)
[2019-05-07] MEDS: POLYVINYL ALCOHOL 15 ML BOTTLE EACHEYE SCH ×4 (05:10→23:52)
[2019-05-07] MEDS: BLOOD SUGAR DIAGNOSTIC 1 EACH STRIP IN SCH ×4 (06:23→23:52)
[2019-05-07] MEDS: NEPRO 1,000 ML BOTTLE GT PRN (06:23)
[2019-05-07] MEDS: INSULIN ASPART/LISPRO 100 UNIT/ML CARTRIDGE SQ PRN ×4 (06:24→23:52)
[2019-05-07] MEDS: LACTOBACILLUS RHAMNOSUS GG 1 EACH CAP.SPRINK GT SCH ×2 (09:11→17:00)
[2019-05-07] MEDS: SUCRALFATE 1 G/10 ML UDC GT SCH (09:11)
[2019-05-07] MEDS: VIT B CMPLX 3/FA/VIT C/BIOTIN 1 TAB TABLET GT SCH (09:13)
[2019-05-07] MEDS: METOPROLOL TARTRATE 50 MG TABLET GT SCH ×2 (09:13→21:24)
[2019-05-07] MEDS: NEUTRA PHOS 1 POWD.PACKET GT SCH (09:14)
[2019-05-07] MEDS: OMEPRAZOLE 20 MG CAPSULE.DR GT SCH (09:15)
[2019-05-07] MEDS: PROSOURCE / PROSTAT (PYXIS) 30 ML UDC GT SCH ×3 (09:15→17:00)
[2019-05-07] MEDS: HYDROCODONE/APAP 5/325MG 1 EACH TABLET GT SCH ×2 (09:15→21:24)
[2019-05-07] MEDS: ASCORBIC ACID 500 MG TABLET GT SCH (09:16)
[2019-05-07] MEDS: ZINC SULFATE 220 MG CAPSULE GT SCH (09:16)
[2019-05-07] MEDS: CALCITRIOL ORAL SOLUTION 1 MCG/ML NG SCH (09:17)
[2019-05-07] MEDS: INSULIN GLARGINE,BASAGLAR 100 UNIT/ML INSULN.PEN SQ SCH ×2 (09:43→21:28)
[2019-05-07] MEDS: HYDROGEN PEROXIDE 480 ML BOTTLE TP SCH ×2 (09:51→21:18)
[2019-05-07] MEDS: TRIAMCINOLONE ACETONIDE 0.1% CR 15 GM TUBE TP SCH ×4 (10:15→21:29)
[2019-05-07] MEDS: NYSTATIN CREAM 15 GM TUBE TP SCH ×2 (10:15→21:29)
[2019-05-07] MEDS: HYDROGEL DRESSING 90 GM TUBE TP SCH ×5 (10:15→21:29)
[2019-05-07] MEDS: Z GUARD REMEDY 4 OZ OINT TP SCH ×2 (10:15→21:29)
[2019-05-07] MEDS: POVIDONE-IODINE OINT 28.4 GM TUBE TP SCH (10:15)
[2019-05-07] MEDS: HYDROCORTISONE 2.5% CREAM 28.4 GM TUBE TP SCH ×2 (10:15→21:29)
[2019-05-07] MEDS: AMMONIUM LACTATE 227 GM BOTTLE TP SCH ×2 (10:15→21:29)
--- NOTE | 2019-05-07 13:10 | NUR ---
Dr. Dia notified that patient's BS 415 and 15 units coverage given per sliding scale. Patient is currently on Basaglar 20 units Q 12 and sliding scale Q 6. Blood sugar is trending up. Awaiting for orders from MD, will continue to monitor for signs of hyperglycemia.
--- NOTE | 2019-05-07 16:00 | NUR ---
Notified Dr. Homero Ivan of elevated blood sugar 415, 15 unit of Humulog insulin given per sliding scale. No additional order given.
[2019-05-07] MEDS: ONDANSETRON 4 MG TAB.RAPDIS GT PRN (18:28)
--- NOTE | 2019-05-07 21:26 | NUR ---
Received a order from Dr. Alcocer to increase Basaglar to 22unit BID. Family members made aware
--- NOTE | 2019-05-07 21:30 | NUR ---
Per belt back operator Nurse: Katia telephone order from to increase pt's Rx:Basagalr from 20 units to 22 units,order carried out and 22 units of Basaglar given to pt instead f 20 units, order still not in EMAR- awaiting for pharmacy to input order in system .Current BS: 189. Family @ bs made aware of new order and pt's episodes of vomiting as well. Kept pt's hob elevated and observe aspiration precautions. Cont to monitor.
[2019-05-08] VITALS (8 sets, daily range): BP systolic 146–162; BP diastolic 54–90
[2019-05-08] MEDS: TOBRAMYCIN/DEXAMETH OPHTH DORPS 2.5 ML BOTTLE EACHEYE SCH ×6 (00:01→21:59)
[2019-05-08] MEDS: ONDANSETRON 4 MG TAB.RAPDIS GT PRN ×2 (00:45→14:56)
[2019-05-08] MEDS: NEPRO 1,000 ML BOTTLE GT PRN (04:12)
[2019-05-08] MEDS: POLYVINYL ALCOHOL 15 ML BOTTLE EACHEYE SCH ×4 (05:17→22:02)
[2019-05-08] MEDS: BLOOD SUGAR DIAGNOSTIC 1 EACH STRIP IN SCH ×4 (05:17→23:38)
[2019-05-08] MEDS: INSULIN ASPART/LISPRO 100 UNIT/ML CARTRIDGE SQ PRN ×3 (05:18→23:39)
[2019-05-08] MEDS: HYDROGEN PEROXIDE 480 ML BOTTLE TP SCH ×2 (09:00→21:00)
[2019-05-08] MEDS: Z GUARD REMEDY 4 OZ OINT TP SCH ×2 (09:00→21:00)
[2019-05-08] MEDS: TRIAMCINOLONE ACETONIDE 0.1% CR 15 GM TUBE TP SCH ×4 (09:00→21:00)
[2019-05-08] MEDS: AMMONIUM LACTATE 227 GM BOTTLE TP SCH ×2 (09:00→21:00)
[2019-05-08] MEDS: HYDROGEL DRESSING 90 GM TUBE TP SCH ×5 (09:00→21:00)
[2019-05-08] MEDS: HYDROCORTISONE 2.5% CREAM 28.4 GM TUBE TP SCH ×2 (09:00→21:00)
[2019-05-08] MEDS: POVIDONE-IODINE OINT 28.4 GM TUBE TP SCH (09:00)
[2019-05-08] MEDS: NYSTATIN CREAM 15 GM TUBE TP SCH ×2 (09:00→21:00)
[2019-05-08] MEDS: LACTOBACILLUS RHAMNOSUS GG 1 EACH CAP.SPRINK GT SCH ×2 (09:05→17:00)
[2019-05-08] MEDS: METOPROLOL TARTRATE 50 MG TABLET GT SCH ×2 (09:05→21:59)
[2019-05-08] MEDS: VIT B CMPLX 3/FA/VIT C/BIOTIN 1 TAB TABLET GT SCH (09:05)
[2019-05-08] MEDS: NEUTRA PHOS 1 POWD.PACKET GT SCH (09:05)
[2019-05-08] MEDS: SUCRALFATE 1 G/10 ML UDC GT SCH (09:05)
[2019-05-08] MEDS: HYDROCODONE/APAP 5/325MG 1 EACH TABLET GT SCH ×2 (09:06→21:59)
[2019-05-08] MEDS: ASCORBIC ACID 500 MG TABLET GT SCH (09:06)
[2019-05-08] MEDS: PROSOURCE / PROSTAT (PYXIS) 30 ML UDC GT SCH ×3 (09:06→17:00)
[2019-05-08] MEDS: CALCITRIOL ORAL SOLUTION 1 MCG/ML NG SCH (09:06)
[2019-05-08] MEDS: OMEPRAZOLE 20 MG CAPSULE.DR GT SCH (09:06)
[2019-05-08] MEDS: ZINC SULFATE 220 MG CAPSULE GT SCH (09:06)
[2019-05-08] MEDS: INSULIN GLARGINE,BASAGLAR 100 UNIT/ML INSULN.PEN SQ SCH ×3 (09:14→21:00)
--- NOTE | 2019-05-08 09:50 | NUR ---
GAVE PATIENT 22UNITS OF SHASHA ORDERED. BS IN AM AT 263
--- NOTE | 2019-05-08 14:35 | NUR ---
PATIENT VOMITED X3, GAVE ZOFRAN ORDERED. PATIENT IN NO ACUTE DISTRESS, HELD FEEDING AND HOB KEPT ELEVATED. WILL CONTINUE TO MONITOR.
--- NOTE | 2019-05-08 17:06 | NUR ---
PATIENT VOMITED X4, HELD MEDICATIONS AT 1700, HOB UP, PATIENT IN NO ACUTE DISTRESS NOTED. Addendum: 05/08/19 at 1907 by CARRILLO MALONEY RN CORRECTION TO NOTE ABOVE, PATIENT HAD A TOTAL OF 4 VOMITING EPISODES, SUKHWINDER COONEY DNP AWARE AND ORDERED TO HOLD FEEDING FOR 4 HRS AND CHECK RESIDUAL. AT THIS TIME PATIENT IS IN NO RESPIRATORY DISTRESS, HOB UP AND FEEDING ON HOLD.
[2019-05-09] VITALS (8 sets, daily range): BP systolic 115–157; BP diastolic 46–72
[2019-05-09] MEDS: TOBRAMYCIN/DEXAMETH OPHTH DORPS 2.5 ML BOTTLE EACHEYE SCH ×4 (01:56→12:15)
--- NOTE | 2019-05-09 03:30 | NUR ---
Patient has episode of x1 emesis approximately 150cc. No residual noted. No s/s of distress or discomfort noted. Held feeding. Charge nurse aware will continue to monitor.
--- NOTE | 2019-05-09 04:30 | NUR ---
Patient sleeping comfortably in bed. No residual noted. Continuos feeding started , tolerated well. No emesis. Will continue to monitor.
[2019-05-09] MEDS: POLYVINYL ALCOHOL 15 ML BOTTLE EACHEYE SCH ×4 (05:01→23:34)
[2019-05-09] MEDS: INSULIN ASPART/LISPRO 100 UNIT/ML CARTRIDGE SQ PRN ×4 (05:01→23:36)
[2019-05-09] MEDS: BLOOD SUGAR DIAGNOSTIC 1 EACH STRIP IN SCH ×4 (05:01→23:34)
[2019-05-09] MEDS: NEPRO 1,000 ML BOTTLE GT PRN (05:03)
[2019-05-09] MEDS: METOPROLOL TARTRATE 50 MG TABLET GT SCH ×2 (09:00→20:47)
[2019-05-09] MEDS: HYDROGEN PEROXIDE 480 ML BOTTLE TP SCH ×2 (09:00→21:00)
[2019-05-09 09:14] LABS: ABG BASE EXCESS 0.7 mmol/L; ABG OXYGEN SATURATION 99.4 % (92.0-98.5); ABG PCO2 41.2 mmHg (35.0-45.0); ABG PH 7.409 (7.350-7.450); ABG PO2 257.8 mmHg (75.0-100.0); COHb 0.9 % (0.5-1.5); MetHb 0.6 % (0.0-1.5); O2Hb 97.9 % (94.0-97.0); PEEP,BG 5 cm H2O; SITE, ABG Left Brachial
--- NOTE | 2019-05-09 09:30 | NUR ---
Pt was placed on SIMV 4 PS 15 PEEP +5. ABG result relayed to Dr Rocha and notified him that pt goes apneic on SIMV. RT Damon placed pt back on AC. Dr Rocha aware. No new order. Informed pt's daughter Adrienne.
[2019-05-09] MEDS: SUCRALFATE 1 G/10 ML UDC GT SCH (09:39)
[2019-05-09] MEDS: LACTOBACILLUS RHAMNOSUS GG 1 EACH CAP.SPRINK GT SCH ×2 (09:39→18:00)
[2019-05-09] MEDS: NEUTRA PHOS 1 POWD.PACKET GT SCH (09:40)
[2019-05-09] MEDS: ZINC SULFATE 220 MG CAPSULE GT SCH (09:40)
[2019-05-09] MEDS: HYDROCODONE/APAP 5/325MG 1 EACH TABLET GT SCH ×2 (09:40→20:47)
[2019-05-09] MEDS: ASCORBIC ACID 500 MG TABLET GT SCH (09:40)
[2019-05-09] MEDS: VIT B CMPLX 3/FA/VIT C/BIOTIN 1 TAB TABLET GT SCH (09:40)
[2019-05-09] MEDS: OMEPRAZOLE 20 MG CAPSULE.DR GT SCH (09:40)
[2019-05-09] MEDS: PROSOURCE / PROSTAT (PYXIS) 30 ML UDC GT SCH ×3 (09:40→18:00)
[2019-05-09] MEDS: CALCITRIOL ORAL SOLUTION 1 MCG/ML NG SCH (09:40)
--- NOTE | 2019-05-09 09:41 | NUR ---
RT Fio2 titrated post abg per Dr Rocha. aware of patients periods of apnea and said to keep current settings. Addendum: 05/09/19 at 1103 by JUDITH MCCLELLAN RT Amended: Links added.
[2019-05-09] MEDS: INSULIN GLARGINE,BASAGLAR 100 UNIT/ML INSULN.PEN SQ SCH ×2 (09:51→21:36)
[2019-05-09] MEDS: NYSTATIN CREAM 15 GM TUBE TP SCH ×2 (10:30→21:37)
[2019-05-09] MEDS: HYDROGEL DRESSING 90 GM TUBE TP SCH ×5 (10:30→21:37)
[2019-05-09] MEDS: AMMONIUM LACTATE 227 GM BOTTLE TP SCH ×2 (10:30→21:37)
[2019-05-09] MEDS: TRIAMCINOLONE ACETONIDE 0.1% CR 15 GM TUBE TP SCH ×4 (10:30→21:37)
[2019-05-09] MEDS: Z GUARD REMEDY 4 OZ OINT TP SCH ×2 (10:30→21:37)
[2019-05-09] MEDS: HYDROCORTISONE 2.5% CREAM 28.4 GM TUBE TP SCH ×2 (10:30→21:37)
[2019-05-09] MEDS: POVIDONE-IODINE OINT 28.4 GM TUBE TP SCH (10:30)
--- NOTE | 2019-05-09 12:37 | NUR ---
Dr Rocha ordered to keep pt on SIMV 4 PSV 15 PEEP +5 as tolerated, but place pt on AC mode for hemodialysis.
--- NOTE | 2019-05-09 15:24 | NUR ---
Seen by Dr Dia. Notified him that pt vomited 4 times [address] per endorsement. Dr Dia ordered to give Reglan 10 mg GT q 8 hours for gastroparesis. Notified pt's daughter Adrienne.
[2019-05-09] MEDS: METOCLOPRAMIDE HCL 10 MG TABLET GT SCH (20:48)
[2019-05-09] MEDS: ONDANSETRON 4 MG TAB.RAPDIS GT PRN (21:05)
[2019-05-10] VITALS (7 sets, daily range): BP systolic 114–149; BP diastolic 56–72
[2019-05-10] MEDS: POLYVINYL ALCOHOL 15 ML BOTTLE EACHEYE SCH ×4 (05:47→23:18)
[2019-05-10] MEDS: METOCLOPRAMIDE HCL 10 MG TABLET GT SCH ×3 (05:47→20:58)
[2019-05-10] MEDS: BLOOD SUGAR DIAGNOSTIC 1 EACH STRIP IN SCH ×4 (05:53→23:18)
[2019-05-10] MEDS: INSULIN ASPART/LISPRO 100 UNIT/ML CARTRIDGE SQ PRN ×4 (05:54→23:20)
[2019-05-10] MEDS: NEPRO 1,000 ML BOTTLE GT PRN (06:06)
[2019-05-10] MEDS: HYDROGEN PEROXIDE 480 ML BOTTLE TP SCH ×2 (09:00→21:00)
[2019-05-10] MEDS: LACTOBACILLUS RHAMNOSUS GG 1 EACH CAP.SPRINK GT SCH ×2 (09:11→17:45)
[2019-05-10] MEDS: SUCRALFATE 1 G/10 ML UDC GT SCH (09:11)
[2019-05-10] MEDS: PROSOURCE / PROSTAT (PYXIS) 30 ML UDC GT SCH ×3 (09:15→17:45)
[2019-05-10] MEDS: CALCITRIOL ORAL SOLUTION 1 MCG/ML NG SCH (09:15)
[2019-05-10] MEDS: OMEPRAZOLE 20 MG CAPSULE.DR GT SCH (09:15)
[2019-05-10] MEDS: NEUTRA PHOS 1 POWD.PACKET GT SCH (09:15)
[2019-05-10] MEDS: ZINC SULFATE 220 MG CAPSULE GT SCH (09:15)
[2019-05-10] MEDS: VIT B CMPLX 3/FA/VIT C/BIOTIN 1 TAB TABLET GT SCH (09:15)
[2019-05-10] MEDS: ASCORBIC ACID 500 MG TABLET GT SCH (09:15)
[2019-05-10] MEDS: HYDROCODONE/APAP 5/325MG 1 EACH TABLET GT SCH ×2 (09:16→20:58)
[2019-05-10] MEDS: NYSTATIN CREAM 15 GM TUBE TP SCH ×2 (09:45→21:51)
[2019-05-10] MEDS: Z GUARD REMEDY 4 OZ OINT TP SCH ×2 (09:45→21:51)
[2019-05-10] MEDS: HYDROCORTISONE 2.5% CREAM 28.4 GM TUBE TP SCH ×2 (09:45→21:51)
[2019-05-10] MEDS: POVIDONE-IODINE OINT 28.4 GM TUBE TP SCH (09:45)
[2019-05-10] MEDS: HYDROGEL DRESSING 90 GM TUBE TP SCH ×5 (09:45→21:51)
[2019-05-10] MEDS: TRIAMCINOLONE ACETONIDE 0.1% CR 15 GM TUBE TP SCH ×4 (09:45→21:51)
[2019-05-10] MEDS: AMMONIUM LACTATE 227 GM BOTTLE TP SCH ×2 (09:45→21:51)
[2019-05-10] MEDS: METOPROLOL TARTRATE 50 MG TABLET GT SCH ×2 (09:49→20:58)
[2019-05-10] MEDS: INSULIN GLARGINE,BASAGLAR 100 UNIT/ML INSULN.PEN SQ SCH ×2 (09:50→21:49)
[2019-05-11] VITALS (7 sets, daily range): BP systolic 108–155; BP diastolic 55–69
[2019-05-11] MEDS: METOCLOPRAMIDE HCL 10 MG TABLET GT SCH ×3 (05:14→21:02)
[2019-05-11] MEDS: POLYVINYL ALCOHOL 15 ML BOTTLE EACHEYE SCH ×4 (05:14→23:42)
[2019-05-11] MEDS: BLOOD SUGAR DIAGNOSTIC 1 EACH STRIP IN SCH ×4 (05:52→23:42)
[2019-05-11] MEDS: INSULIN ASPART/LISPRO 100 UNIT/ML CARTRIDGE SQ PRN ×4 (05:53→23:44)
[2019-05-11] MEDS: Z GUARD REMEDY 4 OZ OINT TP SCH ×2 (09:00→21:38)
[2019-05-11] MEDS: HYDROGEL DRESSING 90 GM TUBE TP SCH ×5 (09:00→21:37)
[2019-05-11] MEDS: NYSTATIN CREAM 15 GM TUBE TP SCH ×2 (09:00→21:38)
[2019-05-11] MEDS: HYDROCORTISONE 2.5% CREAM 28.4 GM TUBE TP SCH ×2 (09:00→21:38)
[2019-05-11] MEDS: TRIAMCINOLONE ACETONIDE 0.1% CR 15 GM TUBE TP SCH ×4 (09:00→21:37)
[2019-05-11] MEDS: POVIDONE-IODINE OINT 28.4 GM TUBE TP SCH (09:00)
[2019-05-11] MEDS: AMMONIUM LACTATE 227 GM BOTTLE TP SCH ×2 (09:00→21:38)
[2019-05-11] MEDS: METOPROLOL TARTRATE 50 MG TABLET GT SCH ×2 (09:31→21:00)
[2019-05-11] MEDS: VIT B CMPLX 3/FA/VIT C/BIOTIN 1 TAB TABLET GT SCH (09:31)
[2019-05-11] MEDS: SUCRALFATE 1 G/10 ML UDC GT SCH (09:31)
[2019-05-11] MEDS: HYDROCODONE/APAP 5/325MG 1 EACH TABLET GT SCH ×2 (09:32→21:01)
[2019-05-11] MEDS: ASCORBIC ACID 500 MG TABLET GT SCH (09:32)
[2019-05-11] MEDS: PROSOURCE / PROSTAT (PYXIS) 30 ML UDC GT SCH ×3 (09:32→17:00)
[2019-05-11] MEDS: ZINC SULFATE 220 MG CAPSULE GT SCH (09:32)
[2019-05-11] MEDS: OMEPRAZOLE 20 MG CAPSULE.DR GT SCH (09:32)
[2019-05-11] MEDS: CALCITRIOL ORAL SOLUTION 1 MCG/ML NG SCH (09:32)
[2019-05-11] MEDS: INSULIN GLARGINE,BASAGLAR 100 UNIT/ML INSULN.PEN SQ SCH ×2 (09:33→21:54)
[2019-05-11] MEDS: LACTOBACILLUS RHAMNOSUS GG 1 EACH CAP.SPRINK GT SCH ×2 (09:35→17:43)
[2019-05-11] MEDS: NEUTRA PHOS 1 POWD.PACKET GT SCH (09:35)
--- NOTE | 2019-05-11 14:24 | NUR ---
RADHA received a call from patient's , Janet Bravo [phone] stating she was concerned as the resident was allegedly picked up late for Dialysis on 05/09/19 and consequently not back at until 6 pm when he should be back by 4:15pm. RADHA called [facility] [[phone]] and spoke to Misa to verify if patient was brought in late on 05/09/19. Per Misa, there is no documentation that he was brought in late for Dialysis. Per Misa, the patient's chair time is M,W,F 12:45pm-3:45pm. RADHA called [facility][[address] [place] [address]; [phone]] who provide transportation to [facility] to verify cotton picking machine operator times. RADHA spoke to Rico who stated that [facility] has orders to cotton picking machine operator pt. at [facility] at 12:15pm to be dropped off at [facility] at 12:30pm for 12:45pm-3:45pm chair time, Rico stated cotton picking machine operator from [facility] is scheduled for 4 pm to be dropped off at [facility] by 4:15pm on M,W,F. Per Rico, there is no record of late cotton picking machine operator and drop off time on Thursday. RADHA encouraged [facility] to be timely. Rico was agreeable to plan. RADHA called Janet and communicated that [facility] transportation was reminded and encouraged to provide timely transportation services for pt.Janet expressed understanding and contentment for RADHA's help.
[2019-05-11] MEDS: HYDROGEN PEROXIDE 480 ML BOTTLE TP SCH (21:05)
[2019-05-11] MEDS: ONDANSETRON 4 MG TAB.RAPDIS GT PRN (22:35)
[2019-05-12] VITALS (7 sets, daily range): BP systolic 87–119; BP diastolic 40–61
[2019-05-12] MEDS: POLYVINYL ALCOHOL 15 ML BOTTLE EACHEYE SCH ×3 (05:48→18:06)
[2019-05-12] MEDS: METOCLOPRAMIDE HCL 10 MG TABLET GT SCH ×3 (05:48→20:52)
[2019-05-12] MEDS: BLOOD SUGAR DIAGNOSTIC 1 EACH STRIP IN SCH ×3 (05:52→18:06)
[2019-05-12] MEDS: INSULIN ASPART/LISPRO 100 UNIT/ML CARTRIDGE SQ PRN ×3 (05:53→18:08)
[2019-05-12] MEDS: NEPRO 1,000 ML BOTTLE GT PRN (06:03)
[2019-05-12] MEDS: HYDROGEN PEROXIDE 480 ML BOTTLE TP SCH ×2 (08:01→20:04)
[2019-05-12] MEDS: LACTOBACILLUS RHAMNOSUS GG 1 EACH CAP.SPRINK GT SCH ×2 (09:00→17:00)
[2019-05-12] MEDS: SUCRALFATE 1 G/10 ML UDC GT SCH (09:00)
[2019-05-12] MEDS: INSULIN GLARGINE,BASAGLAR 100 UNIT/ML INSULN.PEN SQ SCH ×2 (09:00→20:53)
[2019-05-12] MEDS: METOPROLOL TARTRATE 50 MG TABLET GT SCH ×2 (09:00→20:51)
[2019-05-12] MEDS: HYDROCODONE/APAP 5/325MG 1 EACH TABLET GT SCH ×2 (09:00→20:52)
[2019-05-12] MEDS: KETOCONAZOLE SHAMPOO 120 ML BOTTLE TP SCH (09:00)
[2019-05-12] MEDS: NYSTATIN CREAM 15 GM TUBE TP SCH ×2 (09:00→20:53)
[2019-05-12] MEDS: CALCITRIOL ORAL SOLUTION 1 MCG/ML NG SCH (09:00)
[2019-05-12] MEDS: POVIDONE-IODINE OINT 28.4 GM TUBE TP SCH (09:00)
[2019-05-12] MEDS: Z GUARD REMEDY 4 OZ OINT TP SCH ×2 (09:00→20:57)
[2019-05-12] MEDS: HYDROGEL DRESSING 90 GM TUBE TP SCH ×5 (09:00→20:53)
[2019-05-12] MEDS: TRIAMCINOLONE ACETONIDE 0.1% CR 15 GM TUBE TP SCH ×4 (09:00→20:53)
[2019-05-12] MEDS: HYDROCORTISONE 2.5% CREAM 28.4 GM TUBE TP SCH (09:00)
[2019-05-12] MEDS: NEUTRA PHOS 1 POWD.PACKET GT SCH (09:00)
[2019-05-12] MEDS: AMMONIUM LACTATE 227 GM BOTTLE TP SCH ×2 (09:00→20:53)
[2019-05-12] MEDS: ZINC SULFATE 220 MG CAPSULE GT SCH (09:00)
[2019-05-12] MEDS: VIT B CMPLX 3/FA/VIT C/BIOTIN 1 TAB TABLET GT SCH (09:00)
[2019-05-12] MEDS: OMEPRAZOLE 20 MG CAPSULE.DR GT SCH (09:00)
[2019-05-12] MEDS: BETADINE 5% CREAM TP SCH ×2 (09:00→20:56)
[2019-05-12] MEDS: PROSOURCE / PROSTAT (PYXIS) 30 ML UDC GT SCH ×3 (09:00→17:00)
[2019-05-12] MEDS: ASCORBIC ACID 500 MG TABLET GT SCH (09:00)
[2019-05-12] MEDS ORDERED: POVIDONE-IODINE OINT 28.4 GM TUBE TP ONE (09:18)
[2019-05-13] MEDS: BLOOD SUGAR DIAGNOSTIC 1 EACH STRIP IN SCH ×3 (00:04→12:40)
[2019-05-13] MEDS: POLYVINYL ALCOHOL 15 ML BOTTLE EACHEYE SCH ×3 (00:04→12:37)
[2019-05-13 00:05] VITALS: BP 105/58
[2019-05-13] MEDS: INSULIN ASPART/LISPRO 100 UNIT/ML CARTRIDGE SQ PRN ×3 (00:05→12:53)
--- NOTE | 2019-05-13 04:03 | NUR ---
PT RCVD SARAH'D ON MECHANICAL VENT WITH CHARTED SETTINGS. SX DONE. PT SARAH IS PATENT AND SECURE. VENT ALARMS APPEAR TO BE FUNCTIONING PROPERLY. VENT PLUGGED INTO RED OUTLET. AMBU BAG AT BEDSIDE. Addendum: 05/13/19 at 0404 by OLAMIDE LANDIN RT Amended: Links added.
[2019-05-13] MEDS: METOCLOPRAMIDE HCL 10 MG TABLET GT SCH ×2 (05:15→12:40)
[2019-05-13] MEDS: NEPRO 1,000 ML BOTTLE GT PRN (05:15)
[2019-05-13 05:21] VITALS: BP 101/49
[2019-05-13 08:00] VITALS: BP 116/46
[2019-05-13 08:15] VITALS: BP 116/46
[2019-05-13] MEDS: HYDROCODONE/APAP 5/325MG 1 EACH TABLET GT SCH (09:00)
[2019-05-13] MEDS: ZINC SULFATE 220 MG CAPSULE GT SCH (09:00)
[2019-05-13] MEDS: NYSTATIN CREAM 15 GM TUBE TP SCH (09:00)
[2019-05-13] MEDS: ASCORBIC ACID 500 MG TABLET GT SCH (09:00)
[2019-05-13] MEDS: OMEPRAZOLE 20 MG CAPSULE.DR GT SCH (09:00)
[2019-05-13] MEDS: LACTOBACILLUS RHAMNOSUS GG 1 EACH CAP.SPRINK GT SCH (09:00)
[2019-05-13] MEDS: SUCRALFATE 1 G/10 ML UDC GT SCH (09:00)
[2019-05-13] MEDS: CALCITRIOL ORAL SOLUTION 1 MCG/ML NG SCH (09:00)
[2019-05-13] MEDS: VIT B CMPLX 3/FA/VIT C/BIOTIN 1 TAB TABLET GT SCH (09:00)
[2019-05-13] MEDS: POVIDONE-IODINE OINT 28.4 GM TUBE TP SCH (09:00)
[2019-05-13] MEDS: Z GUARD REMEDY 4 OZ OINT TP SCH (09:00)
[2019-05-13] MEDS: BETADINE 5% CREAM TP SCH (09:00)
[2019-05-13] MEDS: METOPROLOL TARTRATE 50 MG TABLET GT SCH (09:00)
[2019-05-13] MEDS: AMMONIUM LACTATE 227 GM BOTTLE TP SCH (09:00)
[2019-05-13] MEDS: TRIAMCINOLONE ACETONIDE 0.1% CR 15 GM TUBE TP SCH ×2 (09:00)
[2019-05-13] MEDS: HYDROGEL DRESSING 90 GM TUBE TP SCH ×3 (09:00)
[2019-05-13] MEDS: NEUTRA PHOS 1 POWD.PACKET GT SCH (09:00)
[2019-05-13] MEDS: PROSOURCE / PROSTAT (PYXIS) 30 ML UDC GT SCH ×2 (09:00→12:40)
[2019-05-13] MEDS: INSULIN GLARGINE,BASAGLAR 100 UNIT/ML INSULN.PEN SQ SCH (09:00)
--- NOTE | 2019-05-13 09:45 | NUR ---
Notified Dr. Dia patient is tachycardic [id number], BP 90/49-100/51, T 99-102 oral and 100% Fi02, RT changed vent setting from SIMV to AC hoping to improve HR. Patient has also episode of projectile vomiting x 1. Dr. Dia ordered to get a chest Xray and to notify him if HR improves with AC setting from the vent. Order carried out. Will monitor patient's condition.
[2019-05-13] MEDS: HYDROGEN PEROXIDE 480 ML BOTTLE TP SCH (09:57)
[2019-05-13] MEDS: ONDANSETRON 4 MG TAB.RAPDIS GT PRN (10:15)
--- NOTE | 2019-05-13 11:20 | NUR ---
Notified Dr. Dia that patient's BP is going down 68/41 to 85/41, HR remain elevated 121, with T 102.5, patient awake and remain on ventilator in AC mode. Dr. Dia came to assess patient at bedside with order to transfer patient in ICU direct admit. Nursing dials supervisor informed, awaiting for room assignment in ICU.
--- NOTE | 2019-05-13 11:40 | NUR ---
Nursing food supervisor called with room assignment in ICU, (Rm. 254). Receiving nurse not available to receive report at this time. Admitting department notified of patient's transfer and need to creat a new account of ICU admission. Dr. Dia also notified of CXRAY result.
--- NOTE | 2019-05-13 13:15 | NUR ---
Resident transferred to ICU direct admit. Report given to ENVIRONMENTAL TECH regarding patient's condition and reason for transfer. Patient awake, on ventilator with current vent setting of AC 18, TV 500, Fi02 35% with O2 sat 100%, no SOB. Dialysis access site intact in the R upper chest permacath and R upper arm midline. Report given to receiving nurse regarding patient's skin condition, wounds and treatment. Patient's daughter Christine notified of transfer.
[2019-05-13] MEDS ORDERED: IPRA3AMP23 IH (15:21)
[2019-05-13] MEDS ORDERED: AMMO225L14 TP (15:21)
[2019-05-13] MEDS ORDERED: OMEP20TA5 GT (15:27)
[2019-05-13] MEDS ORDERED: NEUTRA PHOS PACKET GT (15:27)
[2019-05-13] MEDS ORDERED: METO-295 GT (15:27)
[2019-05-13] MEDS ORDERED: INSU100I26 SQ (15:27)
[2019-05-13] MEDS ORDERED: SUCR1ORA GT (15:27)
[2019-05-13] MEDS ORDERED: ONDA4TAB11 PO (15:27)
[2019-05-13] MEDS ORDERED: NUT.237L67 GT (15:27)
[2019-05-13] MEDS ORDERED: CALC0.253 GT (15:27)
--- NOTE | 2019-05-13 15:29 | NUR ---
RADHA was alerted by Charge Nurse, Lilly that the patient will be tranferred to ICU due to Hypotension. SW completed notice of 7-day bed hold as the patient is Medi-Shorty recipient. SW completed notice of transfer for patient. RADHA notified residents family of above. Per patients , Janet [phone] she is concerned for her husbands health. RADHA validated Jay concern, used reflective and empathetic listening. Per Janet she will sign transfer and 7-day bed-hold paperwork upon visiting pt. RADHA contacted [facility] [[address], [place] [address]; [phone]] to communicate that the patient will not be requiring Dialysis at [facility] until further notice. [facility] vault service mechanic Misa was agreeable to plan. RADHA contacted [facility] [[address] [address]; [phone]] to communicate that the patient will not be requiring transportation services to [facility] until further notice. [facility] vault service mechanic Ina was agreeable to plan.
--- NOTE | 2019-05-13 15:54 | NUR ---
RT TRACH TUBE IN PLACE, PATENT, AND SECURED WITH TRACH TIE. VENT PLUGGED IN TO RED OUTLET. ALARMS ON AND AUDIBLE. AMBU BAG AND BACK UP TRACH BY THE BEDSIDE. PLACED ON A/C RATE OF 18, 500, 30%, +5 DUE TO TACHYCARDIA @1000AM. CHARGE NURSE AWARE. TRANSFERRED TO ICU FOR HYPOTENSION. PATIENT IS AWAKE AND RESPONDS TO TACTILE STIMULI. WILL MONITOR CLOSELY. Addendum: 05/13/19 at 1601 by ONEL VEGA RT Amended: Links added.
[2019-05-16] MEDS: VIT B CMPLX 3/FA/VIT C/BIOTIN 1 TAB TABLET GT SCH (09:00)
--- NOTE | 2019-05-16 09:44 | NUR ---
SW contacted [facility] [[address], [place] [address]; [phone]] to update and remind them that the patient is still not in [facility] and will not be requiring Dialysis at [facility] until further notice. [facility] line servicer Yanely was agreeable to plan. RADHA contacted [facility] [[address] [address]; [phone]] to update and remind them that the patient is still no in and will not be requiring transportation services to [facility] until further notice. [facility] line servicer Donna was agreeable to plan.
[2019-05-19] MEDS ORDERED: CEFE1FRO IV (11:36)
--- NOTE | 2019-05-19 15:58 | NUR ---
RADHA received a call from director stating the plan is for resident return to the unit tonight. RADHA called [facility] [[phone]] and spoke to Mandy to inform them that the patient will be returning to regularly scheduled Dialysis treatment starting 05/20/19. Mandy was agreeable to plan. RADHA called [facility][[address] [place] [address]; [phone]] and spoke to Sae to inform them that the patient will require normally schedule transportation to and from [facility] starting 05/20/19. Sae requested SW contact "[employer] [facility]" to have them reinstate payment for transportation services. RADHA called "[employer]" [phone] and spoke to Christine to have them reinstate payment for transportation services. Christine was agreeable to plan. Per Christine, she will call [facility]. SW notified charge nurse of above mentioned. Per charge nurse, they will notify pt.'s , Janet [phone] closer to transfer time.
[2019-05-19 20:00] VITALS: BP 142/93
[2019-05-19 20:40] VITALS: BP 142/93
[2019-05-19] MEDS: HYDROGEN PEROXIDE 480 ML BOTTLE TP SCH (21:00)
[2019-05-19] MEDS: HYDROCODONE/APAP 5/325MG 1 EACH TABLET GT SCH (21:00)
--- NOTE | 2019-05-19 22:00 | NUR ---
2044 Patient re- admitted from Telemetry via hospital bed.Tracheostomy around midline,on mechanical vent 30% Fio2.Left upper arm double lumen PICC line intact,dressing clean.Right upper chest wall perma cath patent and intact no s/s of infection.Resume all previous medications.Basaglar increased to 23units q 12 hrs.Per endorsement on Amikacin and Vancomycin for sepsis.Random level for both antibiotic ordered and fax to [facility] for dosing.follow up with Ina regarding antibiotic duration in AM.Pt on contact/droplet isolation,MRSA nares,MRSA sacral wound ,ESBL sacral wound,CRE sputum,K pneumonia sputum.Isolation precaution observed by staff and family members.Skin and wound assessment competed,treatment ordered continue from acute.On Nepro 40ml/hr x20 hrs/day.HOB elevated at all times to prevent aspiration precautions.Family visited and updated with pt condition,appreciative of care we provided.Vital signs stable.Will kept clean and dry,Call light within reach at all times.Will continue to monitor.
[2019-05-20] VITALS (9 sets, daily range): BP systolic 103–158; BP diastolic 69–96
[2019-05-20] MEDS: METOCLOPRAMIDE HCL 10 MG TABLET GT SCH ×3 (00:57→21:00)
[2019-05-20] MEDS: POLYVINYL ALCOHOL 15 ML BOTTLE EACHEYE SCH ×3 (00:58→17:17)
[2019-05-20] MEDS: INSULIN ASPART/LISPRO 100 UNIT/ML CARTRIDGE SQ PRN ×2 (00:59→17:18)
[2019-05-20] MEDS: HYDROGEN PEROXIDE 480 ML BOTTLE TP SCH ×2 (07:44→21:00)
--- NOTE | 2019-05-20 08:48 | NUR ---
RADHA called [facility][[address] [place] [address]; [phone]] and spoke to Sae to verify that "[employer] [facility]" [phone] has reinstate payment for their transportation services. Per Sae, [facility] confirmed that they will reinstate payment for transportation services handled by [facility]. Per Sae, [facility] will restart their normally scheduled transportation services from [facility] to [facility] [[address], [place] [address]; [phone]] and back. No further action required.
[2019-05-20] MEDS: OMEPRAZOLE 20 MG CAPSULE.DR GT SCH (09:00)
[2019-05-20] MEDS: METOPROLOL TARTRATE 50 MG TABLET GT SCH ×3 (09:00→21:00)
[2019-05-20] MEDS: PROSOURCE / PROSTAT (PYXIS) 30 ML UDC GT SCH ×3 (09:00→17:17)
[2019-05-20] MEDS: HYDROCODONE/APAP 5/325MG 1 EACH TABLET GT SCH ×3 (09:00→21:00)
[2019-05-20] MEDS: Z GUARD REMEDY 4 OZ OINT TP SCH ×3 (09:00→21:00)
[2019-05-20] MEDS: ASCORBIC ACID 500 MG TABLET GT SCH ×2 (09:00→11:55)
[2019-05-20] MEDS: SUCRALFATE 1 G/10 ML UDC GT SCH ×2 (09:00→12:01)
[2019-05-20] MEDS: LACTOBACILLUS RHAMNOSUS GG 1 EACH CAP.SPRINK GT SCH ×2 (09:00→17:16)
[2019-05-20] MEDS: CALCITRIOL ORAL SOLUTION 1 MCG/ML NG SCH (09:00)
[2019-05-20] MEDS: ZINC SULFATE 220 MG CAPSULE GT SCH ×2 (09:00→11:58)
[2019-05-20] MEDS: NEUTRA PHOS 1 POWD.PACKET GT SCH (09:00)
[2019-05-20] MEDS: BETADINE 5% CREAM TP SCH ×4 (10:00→21:00)
--- NOTE | 2019-05-20 10:45 | NUR ---
Spoke with Dwayne from [facility] pharmacy IV department, asked if IV ATB Vancomycin and Amikacin is covered by patient's insurance or not, according to Dwayne, he will call back.
--- NOTE | 2019-05-20 11:35 | NUR ---
Spoke with Dwayne from [facility] pharmacy said that Amikacin IV is covered by patient's insurance but no Vancomycin. The request was rejected and therefore not able to supply the medication because it is non-refillable. [facility] pharmacist c/o Juan informed.
[2019-05-20] MEDS: VIT B CMPLX 3/FA/VIT C/BIOTIN 1 TAB TABLET GT SCH (11:56)
[2019-05-20] MEDS: BLOOD SUGAR DIAGNOSTIC 1 EACH STRIP IN SCH ×3 (12:00→17:21)
[2019-05-20] MEDS: CALCITRIOL ORAL SOLUTION 1 MCG/ML GT SCH (12:01)
[2019-05-20] MEDS: HYDROGEL DRESSING 90 GM TUBE TP SCH ×2 (12:25→21:00)
[2019-05-20] MEDS ORDERED: FEE PK DOSING 1 MIN EA MC ONE (14:57)
[2019-05-20] MEDS ORDERED: AMIKACIN 350 MG in IV D5W 100 ML IV SCH (15:00)
[2019-05-20] MEDS: AMIKACIN 350 MG in IV D5W 100 ML IV SCH (20:03)
[2019-05-20] MEDS: AMMONIUM LACTATE 227 GM BOTTLE TP SCH (21:00)
[2019-05-20] MEDS: NYSTATIN CREAM 15 GM TUBE TP SCH (21:00)
[2019-05-20] MEDS: TRIAMCINOLONE ACETONIDE 0.1% CR 15 GM TUBE TP SCH ×2 (21:00)
[2019-05-20] MEDS: INSULIN GLARGINE,BASAGLAR 100 UNIT/ML INSULN.PEN SQ SCH ×2 (22:00→23:00)
--- NOTE | 2019-05-20 23:00 | NUR ---
blood sugar fingerstick is 179, insulin given as ordered.
[2019-05-21] VITALS (8 sets, daily range): BP systolic 115–147; BP diastolic 55–81
[2019-05-21] MEDS: INSULIN ASPART/LISPRO 100 UNIT/ML CARTRIDGE SQ PRN ×5 (01:30→23:33)
--- NOTE | 2019-05-21 03:40 | NUR ---
RT NOTE: RECEIVED TRACH PT ON ORDERED NOTED VENT SETTINGS. NO RESPIRATORY DISTRESS NOTED. TRACH CHECKED SECURE AND PATENT. SXD AND LAVAGED PT Q ROUND AND NEEDED. TRACH CARE DONE. SPARE TRACH AND AMBU BAG @ BEDSIDE. ALARMS CHECKED AND AUDIBLE. VENT PLUGGED INTO RED OUTLET.
[2019-05-21] MEDS: METOCLOPRAMIDE HCL 10 MG TABLET GT SCH ×3 (05:00→21:28)
[2019-05-21] MEDS: BLOOD SUGAR DIAGNOSTIC 1 EACH STRIP IN SCH ×5 (06:39→23:30)
[2019-05-21] MEDS: POLYVINYL ALCOHOL 15 ML BOTTLE EACHEYE SCH ×5 (06:39→23:30)
[2019-05-21] MEDS: OMEPRAZOLE 20 MG CAPSULE.DR GT SCH (06:39)
--- NOTE | 2019-05-21 08:25 | NUR ---
Per MANAGER LINUX Bert Parker, IV ATB (Vancomycin and Amikacin) to be given for another 2 weeks. Order carried out.
[2019-05-21] MEDS: BETADINE 5% CREAM TP SCH ×5 (09:00→21:29)
[2019-05-21] MEDS: INSULIN GLARGINE,BASAGLAR 100 UNIT/ML INSULN.PEN SQ SCH ×2 (09:00→21:28)
[2019-05-21] MEDS: NYSTATIN CREAM 15 GM TUBE TP SCH ×2 (09:00→21:28)
[2019-05-21] MEDS: Z GUARD REMEDY 4 OZ OINT TP SCH ×4 (09:00→21:29)
[2019-05-21] MEDS: TRIAMCINOLONE ACETONIDE 0.1% CR 15 GM TUBE TP SCH ×4 (09:00→21:28)
[2019-05-21] MEDS: AMMONIUM LACTATE 227 GM BOTTLE TP SCH ×2 (09:00→21:28)
[2019-05-21] MEDS: HYDROGEL DRESSING 90 GM TUBE TP SCH ×2 (09:00→21:28)
[2019-05-21] MEDS: HYDROGEN PEROXIDE 480 ML BOTTLE TP SCH ×2 (09:00→21:28)
[2019-05-21] MEDS: SUCRALFATE 1 G/10 ML UDC GT SCH (09:24)
[2019-05-21] MEDS: CALCITRIOL ORAL SOLUTION 1 MCG/ML GT SCH (09:24)
[2019-05-21] MEDS: PROSOURCE / PROSTAT (PYXIS) 30 ML UDC GT SCH ×3 (09:25→17:52)
[2019-05-21] MEDS: ZINC SULFATE 220 MG CAPSULE GT SCH (09:26)
[2019-05-21] MEDS: ASCORBIC ACID 500 MG TABLET GT SCH (09:26)
[2019-05-21] MEDS: LACTOBACILLUS RHAMNOSUS GG 1 EACH CAP.SPRINK GT SCH ×2 (09:30→17:52)
[2019-05-21] MEDS: VIT B CMPLX 3/FA/VIT C/BIOTIN 1 TAB TABLET GT SCH (09:31)
[2019-05-21] MEDS: NEUTRA PHOS 1 POWD.PACKET GT SCH (09:31)
[2019-05-21] MEDS: METOPROLOL TARTRATE 50 MG TABLET GT SCH ×2 (09:31→21:27)
[2019-05-21] MEDS: HYDROCODONE/APAP 5/325MG 1 EACH TABLET GT SCH ×2 (09:32→21:00)
[2019-05-21] MEDS: NEPRO 1,000 ML BOTTLE GT PRN (13:46)
[2019-05-21] MEDS: ONDANSETRON 4 MG TAB.RAPDIS GT PRN (14:03)
--- NOTE | 2019-05-21 18:00 | NUR ---
Reported to Dr. Dia that patient's eyes are red, new order given to start him on Tobradex 1 drop to each eye Q 4 hours x 5 days. Orders carried out.
[2019-05-21] MEDS: TOBRAMYCIN/DEXAMETH OPHTH SUSP 5 ML BOTTLE EACHEYE SCH ×2 (20:00→23:46)
--- NOTE | 2019-05-21 22:13 | NUR ---
RN NOTES: NON-ADMIN TOBRAMYCIN EYE DROPS MED IS NOT AVAILABLE AT THIS TIME. AWAITING FOR DELIVERY FROM PHARMACY.
[2019-05-22] VITALS (8 sets, daily range): BP systolic 106–141; BP diastolic 62–98
[2019-05-22] MEDS: TOBRAMYCIN/DEXAMETH OPHTH SUSP 5 ML BOTTLE EACHEYE SCH ×5 (04:09→20:44)
[2019-05-22] MEDS: METOCLOPRAMIDE HCL 10 MG TABLET GT SCH ×3 (04:09→20:47)
[2019-05-22] MEDS: BLOOD SUGAR DIAGNOSTIC 1 EACH STRIP IN SCH ×3 (05:12→17:14)
[2019-05-22] MEDS: POLYVINYL ALCOHOL 15 ML BOTTLE EACHEYE SCH ×3 (05:12→17:14)
[2019-05-22] MEDS: OMEPRAZOLE 20 MG CAPSULE.DR GT SCH (05:12)
[2019-05-22] MEDS: INSULIN ASPART/LISPRO 100 UNIT/ML CARTRIDGE SQ PRN ×3 (05:40→17:15)
[2019-05-22] MEDS: HYDROGEN PEROXIDE 480 ML BOTTLE TP SCH ×2 (09:00→21:00)
[2019-05-22] MEDS: NYSTATIN CREAM 15 GM TUBE TP SCH ×2 (09:00→20:49)
[2019-05-22] MEDS: TRIAMCINOLONE ACETONIDE 0.1% CR 15 GM TUBE TP SCH ×4 (09:00→21:03)
[2019-05-22] MEDS: AMMONIUM LACTATE 227 GM BOTTLE TP SCH ×2 (09:00→20:49)
[2019-05-22] MEDS: BETADINE 5% CREAM TP SCH ×5 (09:00→20:50)
[2019-05-22] MEDS: Z GUARD REMEDY 4 OZ OINT TP SCH ×4 (09:00→20:50)
[2019-05-22] MEDS: HYDROGEL DRESSING 90 GM TUBE TP SCH ×2 (09:00→20:49)
[2019-05-22] MEDS: LACTOBACILLUS RHAMNOSUS GG 1 EACH CAP.SPRINK GT SCH ×2 (09:15→16:16)
[2019-05-22] MEDS: VIT B CMPLX 3/FA/VIT C/BIOTIN 1 TAB TABLET GT SCH (09:15)
[2019-05-22] MEDS: CALCITRIOL ORAL SOLUTION 1 MCG/ML GT SCH (09:15)
[2019-05-22] MEDS: METOPROLOL TARTRATE 50 MG TABLET GT SCH ×2 (09:15→20:45)
[2019-05-22] MEDS: SUCRALFATE 1 G/10 ML UDC GT SCH (09:15)
[2019-05-22] MEDS: HYDROCODONE/APAP 5/325MG 1 EACH TABLET GT SCH ×2 (09:16→20:46)
[2019-05-22] MEDS: ASCORBIC ACID 500 MG TABLET GT SCH (09:16)
[2019-05-22] MEDS: ZINC SULFATE 220 MG CAPSULE GT SCH (09:16)
[2019-05-22] MEDS: PROSOURCE / PROSTAT (PYXIS) 30 ML UDC GT SCH ×3 (09:16→16:16)
[2019-05-22] MEDS: NEUTRA PHOS 1 POWD.PACKET GT SCH (09:16)
[2019-05-22] MEDS: INSULIN GLARGINE,BASAGLAR 100 UNIT/ML INSULN.PEN SQ SCH ×2 (09:17→21:03)
[2019-05-22] MEDS: NEPRO 1,000 ML BOTTLE GT PRN (17:46)
[2019-05-23] VITALS (8 sets, daily range): BP systolic 102–139; BP diastolic 49–95
[2019-05-23] MEDS: POLYVINYL ALCOHOL 15 ML BOTTLE EACHEYE SCH ×5 (00:20→23:45)
[2019-05-23] MEDS: TOBRAMYCIN/DEXAMETH OPHTH SUSP 5 ML BOTTLE EACHEYE SCH ×7 (00:20→23:45)
[2019-05-23] MEDS: BLOOD SUGAR DIAGNOSTIC 1 EACH STRIP IN SCH ×5 (00:20→23:45)
[2019-05-23] MEDS: INSULIN ASPART/LISPRO 100 UNIT/ML CARTRIDGE SQ PRN ×5 (00:23→23:49)
[2019-05-23] MEDS: METOCLOPRAMIDE HCL 10 MG TABLET GT SCH ×3 (05:52→21:21)
[2019-05-23] MEDS: OMEPRAZOLE 20 MG CAPSULE.DR GT SCH (05:54)
[2019-05-23] MEDS: HYDROGEN PEROXIDE 480 ML BOTTLE TP SCH ×2 (08:45→21:23)
[2019-05-23] MEDS: ALBUTEROL HALF STRENGTH 1.25 MG/3 ML VIAL.NEB NEB PRN (08:45)
[2019-05-23] MEDS: CALCITRIOL ORAL SOLUTION 1 MCG/ML GT SCH (08:59)
[2019-05-23] MEDS: NEUTRA PHOS 1 POWD.PACKET GT SCH (09:00)
[2019-05-23] MEDS: VIT B CMPLX 3/FA/VIT C/BIOTIN 1 TAB TABLET GT SCH (09:00)
[2019-05-23] MEDS: SUCRALFATE 1 G/10 ML UDC GT SCH (09:00)
[2019-05-23] MEDS: LACTOBACILLUS RHAMNOSUS GG 1 EACH CAP.SPRINK GT SCH ×2 (09:00→17:51)
[2019-05-23] MEDS: HYDROCODONE/APAP 5/325MG 1 EACH TABLET GT SCH ×2 (09:01→21:21)
[2019-05-23] MEDS: ZINC SULFATE 220 MG CAPSULE GT SCH (09:01)
[2019-05-23] MEDS: ASCORBIC ACID 500 MG TABLET GT SCH (09:01)
[2019-05-23] MEDS: PROSOURCE / PROSTAT (PYXIS) 30 ML UDC GT SCH ×3 (09:01→17:52)
[2019-05-23] MEDS: METOPROLOL TARTRATE 50 MG TABLET GT SCH ×2 (09:24→21:21)
[2019-05-23] MEDS: INSULIN GLARGINE,BASAGLAR 100 UNIT/ML INSULN.PEN SQ SCH ×2 (09:24→21:22)
[2019-05-23] MEDS: BETADINE 5% CREAM TP SCH ×5 (09:35→21:23)
[2019-05-23] MEDS: Z GUARD REMEDY 4 OZ OINT TP SCH ×4 (09:35→21:24)
[2019-05-23] MEDS: HYDROGEL DRESSING 90 GM TUBE TP SCH ×2 (09:35→21:23)
[2019-05-23] MEDS: TRIAMCINOLONE ACETONIDE 0.1% CR 15 GM TUBE TP SCH ×4 (09:35→21:23)
[2019-05-23] MEDS: AMMONIUM LACTATE 227 GM BOTTLE TP SCH ×2 (09:35→21:23)
[2019-05-23] MEDS: NYSTATIN CREAM 15 GM TUBE TP SCH ×2 (09:35→21:23)
--- NOTE | 2019-05-23 17:00 | NUR ---
Pt noted with dark purplish and brownish discolorations on the left heel and left ankle. Received order to apply Betadine paint and Mepilex. Pt's daughters and visiting, notified them.
[2019-05-23] MEDS: AMIKACIN 350 MG in IV D5W 100 ML IV SCH (20:00)
[2019-05-23] MEDS: POVIDONE-IODINE OINT 28.4 GM TUBE TP SCH ×2 (21:23)
[2019-05-24] VITALS (7 sets, daily range): BP systolic 108–142; BP diastolic 60–90
[2019-05-24] MEDS: TOBRAMYCIN/DEXAMETH OPHTH SUSP 5 ML BOTTLE EACHEYE SCH ×5 (04:00→20:08)
[2019-05-24] MEDS: BLOOD SUGAR DIAGNOSTIC 1 EACH STRIP IN SCH ×3 (05:49→18:39)
[2019-05-24] MEDS: OMEPRAZOLE 20 MG CAPSULE.DR GT SCH (05:49)
[2019-05-24] MEDS: METOCLOPRAMIDE HCL 10 MG TABLET GT SCH ×3 (05:49→20:17)
[2019-05-24] MEDS: POLYVINYL ALCOHOL 15 ML BOTTLE EACHEYE SCH ×3 (05:49→18:04)
[2019-05-24] MEDS: INSULIN ASPART/LISPRO 100 UNIT/ML CARTRIDGE SQ PRN ×3 (05:50→18:41)
[2019-05-24] MEDS: HYDROGEN PEROXIDE 480 ML BOTTLE TP SCH ×2 (09:00→21:00)
[2019-05-24] MEDS: METOPROLOL TARTRATE 50 MG TABLET GT SCH ×2 (09:00→20:09)
[2019-05-24] MEDS: SUCRALFATE 1 G/10 ML UDC GT SCH (09:21)
[2019-05-24] MEDS: CALCITRIOL ORAL SOLUTION 1 MCG/ML GT SCH (09:21)
[2019-05-24] MEDS: VIT B CMPLX 3/FA/VIT C/BIOTIN 1 TAB TABLET GT SCH (09:21)
[2019-05-24] MEDS: HYDROCODONE/APAP 5/325MG 1 EACH TABLET GT SCH ×2 (09:21→20:17)
[2019-05-24] MEDS: NEUTRA PHOS 1 POWD.PACKET GT SCH (09:21)
[2019-05-24] MEDS: LACTOBACILLUS RHAMNOSUS GG 1 EACH CAP.SPRINK GT SCH ×2 (09:21→17:00)
[2019-05-24] MEDS: PROSOURCE / PROSTAT (PYXIS) 30 ML UDC GT SCH ×3 (09:22→17:00)
[2019-05-24] MEDS: ZINC SULFATE 220 MG CAPSULE GT SCH (09:22)
[2019-05-24] MEDS: ASCORBIC ACID 500 MG TABLET GT SCH (09:22)
[2019-05-24] MEDS: INSULIN GLARGINE,BASAGLAR 100 UNIT/ML INSULN.PEN SQ SCH ×2 (09:51→20:18)
[2019-05-24] MEDS: NYSTATIN CREAM 15 GM TUBE TP SCH ×2 (10:00→21:39)
[2019-05-24] MEDS: TRIAMCINOLONE ACETONIDE 0.1% CR 15 GM TUBE TP SCH ×4 (10:00→21:38)
[2019-05-24] MEDS: Z GUARD REMEDY 4 OZ OINT TP SCH ×4 (10:00→21:39)
[2019-05-24] MEDS: BETADINE 5% CREAM TP SCH ×5 (10:00→21:39)
[2019-05-24] MEDS: HYDROGEL DRESSING 90 GM TUBE TP SCH ×2 (10:00→21:38)
[2019-05-24] MEDS: AMMONIUM LACTATE 227 GM BOTTLE TP SCH ×2 (10:00→21:39)
[2019-05-24] MEDS: POVIDONE-IODINE OINT 28.4 GM TUBE TP SCH ×6 (10:00→21:38)
--- NOTE | 2019-05-24 11:31 | NUR ---
Seen and examined by Dr. Dia, made aware of vomiting episode, no gastric residual. Patient on Reglan, and PRN Zofran no other order given at this time.
--- NOTE | 2019-05-24 11:45 | NUR ---
Seen and examined by Dr. Dia, aware of current weight, NNO given.
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
--- NOTE | 2019-05-24 16:23 | NUR ---
[facility]: SW reminded patient's responsible alliance party, Beth [phone] of the [facility] group taking place 05/25/19 from 11am-12pm in the old admin. conference room.
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
--- NOTE | 2019-05-24 17:14 | NUR ---
Mr. Bravo got visitors today. One of his daughters refused to wear the gown she only wears mask. I asked her to wear the gown but she said its too hot for her and she doesn't go close to the patient and she also stated that that's what she does at work too. Explained the risks of not wearing the PPE if they are inside the patient room.
--- NOTE | 2019-05-24 18:29 | NUR ---
Seen and examined by COMMERCIAL ENERGY AUDITOR Joan Phipps, made aware that patient has episodes of vomiting but no gastric residual. According to the nurse assigned to the patient, he has a lot of gas. New order given to start patient with Simethicone 80mg. Q 6 hours. Family at bedside and informed of new order.
[2019-05-25] MEDS: POLYVINYL ALCOHOL 15 ML BOTTLE EACHEYE SCH ×5 (00:21→23:51)
[2019-05-25] MEDS: TOBRAMYCIN/DEXAMETH OPHTH SUSP 5 ML BOTTLE EACHEYE SCH ×7 (00:22→23:51)
[2019-05-25] MEDS: BLOOD SUGAR DIAGNOSTIC 1 EACH STRIP IN SCH ×5 (00:22→23:51)
[2019-05-25] MEDS: INSULIN ASPART/LISPRO 100 UNIT/ML CARTRIDGE SQ PRN ×5 (00:27→23:53)
[2019-05-25 00:35] VITALS: BP 114/71
[2019-05-25 05:51] VITALS: BP 127/84
[2019-05-25] MEDS: OMEPRAZOLE 20 MG CAPSULE.DR GT SCH (05:55)
[2019-05-25] MEDS: METOCLOPRAMIDE HCL 10 MG TABLET GT SCH ×3 (05:55→20:45)
[2019-05-25 07:52] VITALS: BP 141/59
[2019-05-25] MEDS: CALCITRIOL ORAL SOLUTION 1 MCG/ML GT SCH (08:45)
[2019-05-25] MEDS: SUCRALFATE 1 G/10 ML UDC GT SCH (08:45)
[2019-05-25] MEDS: NEUTRA PHOS 1 POWD.PACKET GT SCH (08:46)
[2019-05-25] MEDS: VIT B CMPLX 3/FA/VIT C/BIOTIN 1 TAB TABLET GT SCH (08:46)
[2019-05-25] MEDS: LACTOBACILLUS RHAMNOSUS GG 1 EACH CAP.SPRINK GT SCH ×2 (08:46→17:06)
[2019-05-25] MEDS: METOPROLOL TARTRATE 50 MG TABLET GT SCH ×2 (08:46→20:44)
[2019-05-25] MEDS: ZINC SULFATE 220 MG CAPSULE GT SCH (08:47)
[2019-05-25] MEDS: PROSOURCE / PROSTAT (PYXIS) 30 ML UDC GT SCH ×3 (08:47→17:06)
[2019-05-25] MEDS: ASCORBIC ACID 500 MG TABLET GT SCH (08:47)
[2019-05-25] MEDS: HYDROGEN PEROXIDE 480 ML BOTTLE TP SCH ×2 (09:00→20:20)
[2019-05-25] MEDS: HYDROCODONE/APAP 5/325MG 1 EACH TABLET GT SCH ×2 (09:03→20:45)
[2019-05-25] MEDS: INSULIN GLARGINE,BASAGLAR 100 UNIT/ML INSULN.PEN SQ SCH ×2 (09:08→20:46)
[2019-05-25] MEDS: NYSTATIN CREAM 15 GM TUBE TP SCH ×2 (10:03→20:47)
[2019-05-25] MEDS: AMMONIUM LACTATE 227 GM BOTTLE TP SCH ×2 (10:03→20:47)
[2019-05-25] MEDS: POVIDONE-IODINE OINT 28.4 GM TUBE TP SCH ×8 (10:03→20:47)
[2019-05-25] MEDS: Z GUARD REMEDY 4 OZ OINT TP SCH ×4 (10:03→20:48)
[2019-05-25] MEDS: HYDROGEL DRESSING 90 GM TUBE TP SCH ×2 (10:03→20:47)
[2019-05-25] MEDS: BETADINE 5% CREAM TP SCH ×5 (10:03→20:48)
[2019-05-25] MEDS: TRIAMCINOLONE ACETONIDE 0.1% CR 15 GM TUBE TP SCH ×4 (10:03→20:46)
[2019-05-25 12:00] VITALS: BP 153/78
--- NOTE | 2019-05-25 17:00 | NUR ---
Patient came back from dialysis, per transporter patient not in distress,vomited x 1. Patient had vancomycin trough level this morning, result is 28, kiley rhodes pharmacist Caity made aware this afternoon, don't give vancomycin today (after dialysis). Amikacin random level 6.5 , Miah pharmacist aware, amikacin IV dose at 2000 ok to give. Med nurse gave zofran 4 mg via GT as needed now for x1 vomiting in the dialysis center. Patient closely monitored.
[2019-05-25] MEDS: NEPRO 1,000 ML BOTTLE GT PRN (17:06)
[2019-05-25] MEDS: ONDANSETRON 4 MG TAB.RAPDIS GT PRN (17:49)
[2019-05-25 18:00] VITALS: BP 127/61
[2019-05-25] MEDS: VANCOMYCIN POST DIALYSIS 500MG IV PRN ×2 (18:55)
[2019-05-25] MEDS: AMIKACIN 350 MG in IV D5W 100 ML IV SCH (20:00)
[2019-05-25 20:40] VITALS: BP 95/57
[2019-05-26] VITALS (7 sets, daily range): BP systolic 109–150; BP diastolic 48–71
[2019-05-26] MEDS: TOBRAMYCIN/DEXAMETH OPHTH SUSP 5 ML BOTTLE EACHEYE SCH ×4 (04:48→16:30)
[2019-05-26] MEDS: METOCLOPRAMIDE HCL 10 MG TABLET GT SCH ×3 (04:49→21:00)
[2019-05-26] MEDS: POLYVINYL ALCOHOL 15 ML BOTTLE EACHEYE SCH ×4 (05:56→23:08)
[2019-05-26] MEDS: BLOOD SUGAR DIAGNOSTIC 1 EACH STRIP IN SCH ×4 (05:56→23:03)
[2019-05-26] MEDS: OMEPRAZOLE 20 MG CAPSULE.DR GT SCH (05:56)
[2019-05-26] MEDS: INSULIN ASPART/LISPRO 100 UNIT/ML CARTRIDGE SQ PRN ×4 (05:58→23:05)
[2019-05-26] MEDS: HYDROGEN PEROXIDE 480 ML BOTTLE TP SCH ×2 (08:09→21:00)
[2019-05-26] MEDS: METOPROLOL TARTRATE 50 MG TABLET GT SCH ×2 (09:00→21:00)
[2019-05-26] MEDS: NEUTRA PHOS 1 POWD.PACKET GT SCH (09:45)
[2019-05-26] MEDS: SUCRALFATE 1 G/10 ML UDC GT SCH (09:45)
[2019-05-26] MEDS: VIT B CMPLX 3/FA/VIT C/BIOTIN 1 TAB TABLET GT SCH (09:45)
[2019-05-26] MEDS: CALCITRIOL ORAL SOLUTION 1 MCG/ML GT SCH (09:45)
[2019-05-26] MEDS: LACTOBACILLUS RHAMNOSUS GG 1 EACH CAP.SPRINK GT SCH ×2 (09:45→17:16)
[2019-05-26] MEDS: ZINC SULFATE 220 MG CAPSULE GT SCH (09:46)
[2019-05-26] MEDS: ASCORBIC ACID 500 MG TABLET GT SCH (09:46)
[2019-05-26] MEDS: PROSOURCE / PROSTAT (PYXIS) 30 ML UDC GT SCH ×2 (09:46→12:49)
[2019-05-26] MEDS: HYDROCODONE/APAP 5/325MG 1 EACH TABLET GT SCH ×2 (09:46→21:00)
[2019-05-26] MEDS: INSULIN GLARGINE,BASAGLAR 100 UNIT/ML INSULN.PEN SQ SCH ×2 (09:47→21:00)
[2019-05-26] MEDS: AMMONIUM LACTATE 227 GM BOTTLE TP SCH ×2 (10:00→21:00)
[2019-05-26] MEDS: Z GUARD REMEDY 4 OZ OINT TP SCH ×4 (10:00→21:00)
[2019-05-26] MEDS: NYSTATIN CREAM 15 GM TUBE TP SCH ×2 (10:00→21:00)
[2019-05-26] MEDS: BETADINE 5% CREAM TP SCH ×5 (10:00→21:00)
[2019-05-26] MEDS: KETOCONAZOLE SHAMPOO 120 ML BOTTLE TP SCH (10:00)
[2019-05-26] MEDS: POVIDONE-IODINE OINT 28.4 GM TUBE TP SCH ×8 (10:00→21:00)
[2019-05-26] MEDS: TRIAMCINOLONE ACETONIDE 0.1% CR 15 GM TUBE TP SCH ×4 (10:00→21:00)
[2019-05-26] MEDS: HYDROGEL DRESSING 90 GM TUBE TP SCH ×2 (10:00→21:00)
--- NOTE | 2019-05-26 15:00 | NUR ---
Relayed Amikacin random level relayed to [facility] Pharmacist Dwayne with recommendations to continue Amikacin 350 mg IV 3x/weekly after dialysis (--). Amikacin random level on 05/30/19 at 0600.
[2019-05-26] MEDS: NEPRO 1,000 ML BOTTLE GT PRN (18:22)
--- NOTE | 2019-05-26 18:30 | NUR ---
Seen and examined by LOPEZ Phipps with new orders and carried out.
--- NOTE | 2019-05-26 23:07 | NUR ---
pt rec'd trached on [facility] vent on ac mode. no resp distress or sob noted. trach is patent and secured. sx'd for thick mod amt of pale yellow secretions. alarms are set and audible. vent plugged into red outlet. ambu bag bed side will continue to monitor. Addendum: 05/26/19 at 2309 by MANISH DOMINGUEZ RT Amended: Links added.
[2019-05-27] VITALS (8 sets, daily range): BP systolic 102–155; BP diastolic 50–90
[2019-05-27] MEDS: METOCLOPRAMIDE HCL 10 MG TABLET GT SCH ×3 (05:00→21:08)
[2019-05-27] MEDS: INSULIN ASPART/LISPRO 100 UNIT/ML CARTRIDGE SQ PRN ×3 (06:07→17:57)
[2019-05-27] MEDS: OMEPRAZOLE 20 MG CAPSULE.DR GT SCH (06:09)
[2019-05-27] MEDS: BLOOD SUGAR DIAGNOSTIC 1 EACH STRIP IN SCH ×3 (06:09→17:55)
[2019-05-27] MEDS: POLYVINYL ALCOHOL 15 ML BOTTLE EACHEYE SCH ×3 (06:09→17:36)
[2019-05-27] MEDS: CALCITRIOL ORAL SOLUTION 1 MCG/ML GT SCH (09:00)
[2019-05-27] MEDS: LACTOBACILLUS RHAMNOSUS GG 1 EACH CAP.SPRINK GT SCH ×2 (09:00→17:36)
[2019-05-27] MEDS: VIT B CMPLX 3/FA/VIT C/BIOTIN 1 TAB TABLET GT SCH (09:00)
[2019-05-27] MEDS: SUCRALFATE 1 G/10 ML UDC GT SCH (09:00)
[2019-05-27] MEDS: ZINC SULFATE 220 MG CAPSULE GT SCH (09:01)
[2019-05-27] MEDS: HYDROCODONE/APAP 5/325MG 1 EACH TABLET GT SCH ×2 (09:01→21:08)
[2019-05-27] MEDS: PROSOURCE / PROSTAT (PYXIS) 30 ML UDC GT SCH ×2 (09:01→17:36)
[2019-05-27] MEDS: ASCORBIC ACID 500 MG TABLET GT SCH (09:01)
[2019-05-27] MEDS: METOPROLOL TARTRATE 50 MG TABLET GT SCH ×2 (09:19→21:00)
[2019-05-27] MEDS: NEUTRA PHOS 1 POWD.PACKET GT SCH (09:20)
[2019-05-27] MEDS: INSULIN GLARGINE,BASAGLAR 100 UNIT/ML INSULN.PEN SQ SCH ×2 (09:22→21:19)
[2019-05-27] MEDS: BETADINE 5% CREAM TP SCH ×5 (09:40→21:48)
[2019-05-27] MEDS: POVIDONE-IODINE OINT 28.4 GM TUBE TP SCH ×8 (09:40→21:47)
[2019-05-27] MEDS: HYDROGEL DRESSING 90 GM TUBE TP SCH ×2 (09:40→21:47)
[2019-05-27] MEDS: TRIAMCINOLONE ACETONIDE 0.1% CR 15 GM TUBE TP SCH ×4 (09:40→21:47)
[2019-05-27] MEDS: AMMONIUM LACTATE 227 GM BOTTLE TP SCH ×2 (09:40→21:47)
[2019-05-27] MEDS: Z GUARD REMEDY 4 OZ OINT TP SCH ×4 (09:40→21:48)
[2019-05-27] MEDS: NYSTATIN CREAM 15 GM TUBE TP SCH ×2 (09:40→21:47)
[2019-05-27] MEDS: HYDROGEN PEROXIDE 480 ML BOTTLE TP SCH ×2 (09:43→21:05)
--- NOTE | 2019-05-27 12:38 | NUR ---
Resident picked up by transport for hemodialysis treatment via gurney. Accompanied by 2 EMT's and 1 RT. RT upper chest HD catheter intact, no bleeding noted. Covered with dressing, clean and dry. Resident left the building in stable condition.
--- NOTE | 2019-05-27 18:59 | NUR ---
Resident seen and examined by Dr. Dia this AM assessed skin condition, rashes looks much better. He spoke with Dr. Foley, vehicle trimmer and mentioned that skin has shown improvement and does not think a follow-up Ivermectin is needed. Resident's family at bedside and made aware of what Dr. Dia said about his skin condition. No episode of vomiting this shift. Joan Phipps also seen resident NNO given.
--- NOTE | 2019-05-27 19:30 | NUR ---
Amikacin random level faxed to [facility] IV pharmacy (20.2).
[2019-05-27] MEDS: AMIKACIN 350 MG in IV D5W 100 ML IV SCH (20:00)
[2019-05-27] MEDS: VANCOMYCIN POST DIALYSIS 500MG IV PRN ×2 (21:00)
[2019-05-28] VITALS (8 sets, daily range): BP systolic 105–154; BP diastolic 52–85
[2019-05-28] MEDS: POLYVINYL ALCOHOL 15 ML BOTTLE EACHEYE SCH ×5 (00:30→23:13)
[2019-05-28] MEDS: BLOOD SUGAR DIAGNOSTIC 1 EACH STRIP IN SCH ×5 (00:30→23:13)
[2019-05-28] MEDS: INSULIN ASPART/LISPRO 100 UNIT/ML CARTRIDGE SQ PRN ×5 (00:33→23:15)
[2019-05-28] MEDS: NEPRO 1,000 ML BOTTLE GT PRN ×2 (02:12→17:24)
--- NOTE | 2019-05-28 02:57 | NUR ---
RT NOTES TRACH TUBE IN PLACE, PATENT, AND SECURED WITH TRACH TIE. ALARMS ON AND AUDIBLE. VENT PLUGGED INTO THE RED OUTLET. AMBU BAG AND BACK UP TRACH BY THE BEDSIDE. PT STABLE AND SHOWS NO SIGNS OF ANY DISTRESS AT THIS TIME. Addendum: 05/28/19 at 0257 by ONEL VEGA RT Amended: Links added.
[2019-05-28] MEDS: OMEPRAZOLE 20 MG CAPSULE.DR GT SCH (05:45)
[2019-05-28] MEDS: METOCLOPRAMIDE HCL 10 MG TABLET GT SCH ×3 (05:45→20:55)
[2019-05-28] MEDS: LACTOBACILLUS RHAMNOSUS GG 1 EACH CAP.SPRINK GT SCH ×2 (08:26→17:17)
[2019-05-28] MEDS: CALCITRIOL ORAL SOLUTION 1 MCG/ML GT SCH (08:26)
[2019-05-28] MEDS: SUCRALFATE 1 G/10 ML UDC GT SCH (08:26)
[2019-05-28] MEDS: PROSOURCE / PROSTAT (PYXIS) 30 ML UDC GT SCH ×2 (08:27→17:17)
[2019-05-28] MEDS: METOPROLOL TARTRATE 50 MG TABLET GT SCH ×2 (08:27→20:54)
[2019-05-28] MEDS: ASCORBIC ACID 500 MG TABLET GT SCH (08:27)
[2019-05-28] MEDS: NEUTRA PHOS 1 POWD.PACKET GT SCH (08:27)
[2019-05-28] MEDS: ZINC SULFATE 220 MG CAPSULE GT SCH (08:27)
[2019-05-28] MEDS: VIT B CMPLX 3/FA/VIT C/BIOTIN 1 TAB TABLET GT SCH (08:27)
[2019-05-28] MEDS: HYDROCODONE/APAP 5/325MG 1 EACH TABLET GT SCH ×2 (08:28→20:55)
[2019-05-28] MEDS: INSULIN GLARGINE,BASAGLAR 100 UNIT/ML INSULN.PEN SQ SCH ×2 (08:29→21:43)
[2019-05-28] MEDS: NYSTATIN CREAM 15 GM TUBE TP SCH ×2 (09:15→21:29)
[2019-05-28] MEDS: Z GUARD REMEDY 4 OZ OINT TP SCH ×4 (09:15→21:30)
[2019-05-28] MEDS: BETADINE 5% CREAM TP SCH ×5 (09:15→21:29)
[2019-05-28] MEDS: POVIDONE-IODINE OINT 28.4 GM TUBE TP SCH ×8 (09:15→21:28)
[2019-05-28] MEDS: AMMONIUM LACTATE 227 GM BOTTLE TP SCH ×2 (09:15→21:29)
[2019-05-28] MEDS: TRIAMCINOLONE ACETONIDE 0.1% CR 15 GM TUBE TP SCH ×4 (09:15→21:28)
[2019-05-28] MEDS: HYDROGEL DRESSING 90 GM TUBE TP SCH ×2 (09:15→21:29)
[2019-05-28] MEDS: HYDROGEN PEROXIDE 480 ML BOTTLE TP SCH ×2 (09:38→21:19)
[2019-05-29] VITALS (8 sets, daily range): BP systolic 118–152; BP diastolic 52–67
[2019-05-29] MEDS: POLYVINYL ALCOHOL 15 ML BOTTLE EACHEYE SCH ×3 (05:50→17:44)
[2019-05-29] MEDS: BLOOD SUGAR DIAGNOSTIC 1 EACH STRIP IN SCH ×3 (05:50→17:44)
[2019-05-29] MEDS: OMEPRAZOLE 20 MG CAPSULE.DR GT SCH (05:50)
[2019-05-29] MEDS: METOCLOPRAMIDE HCL 10 MG TABLET GT SCH ×3 (05:50→20:49)
[2019-05-29] MEDS: INSULIN ASPART/LISPRO 100 UNIT/ML CARTRIDGE SQ PRN ×3 (05:52→17:46)
[2019-05-29] MEDS: CALCITRIOL ORAL SOLUTION 1 MCG/ML GT SCH (08:40)
[2019-05-29] MEDS: SUCRALFATE 1 G/10 ML UDC GT SCH (08:40)
[2019-05-29] MEDS: NEUTRA PHOS 1 POWD.PACKET GT SCH (08:41)
[2019-05-29] MEDS: LACTOBACILLUS RHAMNOSUS GG 1 EACH CAP.SPRINK GT SCH ×2 (08:41→17:44)
[2019-05-29] MEDS: VIT B CMPLX 3/FA/VIT C/BIOTIN 1 TAB TABLET GT SCH (08:41)
[2019-05-29] MEDS: ZINC SULFATE 220 MG CAPSULE GT SCH (08:42)
[2019-05-29] MEDS: METOPROLOL TARTRATE 50 MG TABLET GT SCH ×2 (08:42→20:47)
[2019-05-29] MEDS: ASCORBIC ACID 500 MG TABLET GT SCH (08:42)
[2019-05-29] MEDS: PROSOURCE / PROSTAT (PYXIS) 30 ML UDC GT SCH ×2 (08:42→17:44)
[2019-05-29] MEDS: HYDROCODONE/APAP 5/325MG 1 EACH TABLET GT SCH ×2 (08:46→20:48)
[2019-05-29] MEDS: INSULIN GLARGINE,BASAGLAR 100 UNIT/ML INSULN.PEN SQ SCH ×2 (08:46→21:00)
[2019-05-29] MEDS: HYDROGEN PEROXIDE 480 ML BOTTLE TP SCH ×2 (09:00→21:07)
[2019-05-29] MEDS: AMMONIUM LACTATE 227 GM BOTTLE TP SCH ×2 (09:30→20:51)
[2019-05-29] MEDS: TRIAMCINOLONE ACETONIDE 0.1% CR 15 GM TUBE TP SCH ×4 (09:30→20:50)
[2019-05-29] MEDS: BETADINE 5% CREAM TP SCH ×5 (09:30→20:51)
[2019-05-29] MEDS: Z GUARD REMEDY 4 OZ OINT TP SCH ×4 (09:30→20:51)
[2019-05-29] MEDS: POVIDONE-IODINE OINT 28.4 GM TUBE TP SCH ×8 (09:30→20:50)
[2019-05-29] MEDS: NYSTATIN CREAM 15 GM TUBE TP SCH ×2 (09:30→20:51)
[2019-05-29] MEDS: HYDROGEL DRESSING 90 GM TUBE TP SCH ×2 (09:30→20:50)
[2019-05-29] MEDS: NEPRO 1,000 ML BOTTLE GT PRN (17:44)
[2019-05-30] VITALS (8 sets, daily range): BP systolic 91–151; BP diastolic 55–77
[2019-05-30] MEDS: BLOOD SUGAR DIAGNOSTIC 1 EACH STRIP IN SCH ×4 (00:15→17:26)
[2019-05-30] MEDS: POLYVINYL ALCOHOL 15 ML BOTTLE EACHEYE SCH ×4 (00:15→17:26)
[2019-05-30] MEDS: INSULIN ASPART/LISPRO 100 UNIT/ML CARTRIDGE SQ PRN ×4 (00:17→17:27)
[2019-05-30] MEDS: OMEPRAZOLE 20 MG CAPSULE.DR GT SCH (05:52)
[2019-05-30] MEDS: METOCLOPRAMIDE HCL 10 MG TABLET GT SCH ×3 (05:52→20:46)
[2019-05-30] MEDS: HYDROGEN PEROXIDE 480 ML BOTTLE TP SCH ×2 (07:21→21:00)
[2019-05-30] MEDS: CALCITRIOL ORAL SOLUTION 1 MCG/ML GT SCH (09:02)
[2019-05-30] MEDS: VIT B CMPLX 3/FA/VIT C/BIOTIN 1 TAB TABLET GT SCH (09:02)
[2019-05-30] MEDS: LACTOBACILLUS RHAMNOSUS GG 1 EACH CAP.SPRINK GT SCH ×2 (09:02→16:27)
[2019-05-30] MEDS: NEUTRA PHOS 1 POWD.PACKET GT SCH (09:02)
[2019-05-30] MEDS: ASCORBIC ACID 500 MG TABLET GT SCH (09:02)
[2019-05-30] MEDS: ZINC SULFATE 220 MG CAPSULE GT SCH (09:02)
[2019-05-30] MEDS: PROSOURCE / PROSTAT (PYXIS) 30 ML UDC GT SCH ×2 (09:02→16:27)
[2019-05-30] MEDS: SUCRALFATE 1 G/10 ML UDC GT SCH (09:02)
[2019-05-30] MEDS: INSULIN GLARGINE,BASAGLAR 100 UNIT/ML INSULN.PEN SQ SCH ×2 (09:29→21:03)
[2019-05-30] MEDS: HYDROCODONE/APAP 5/325MG 1 EACH TABLET GT SCH ×2 (09:30→20:43)
[2019-05-30] MEDS: METOPROLOL TARTRATE 50 MG TABLET GT SCH ×2 (09:35→20:42)
[2019-05-30] MEDS: TRIAMCINOLONE ACETONIDE 0.1% CR 15 GM TUBE TP SCH ×4 (10:10→20:46)
[2019-05-30] MEDS: HYDROGEL DRESSING 90 GM TUBE TP SCH ×2 (10:10→20:47)
[2019-05-30] MEDS: NYSTATIN CREAM 15 GM TUBE TP SCH ×2 (10:10→20:47)
[2019-05-30] MEDS: POVIDONE-IODINE OINT 28.4 GM TUBE TP SCH ×8 (10:10→20:47)
[2019-05-30] MEDS: BETADINE 5% CREAM TP SCH ×5 (10:10→20:47)
[2019-05-30] MEDS: Z GUARD REMEDY 4 OZ OINT TP SCH ×4 (10:10→20:48)
[2019-05-30] MEDS: AMMONIUM LACTATE 227 GM BOTTLE TP SCH ×2 (10:10→20:47)
--- NOTE | 2019-05-30 12:45 | NUR ---
Resident picked up by [facility] for hemodialysis treatment, via gurney. Accompanied by 2 EMT's and 1 RT. RT upper chest HD catheter intact, no bleeding noted. Covered with dressing, clean and dry. Resident left the building in stable condition.
--- NOTE | 2019-05-30 12:59 | NUR ---
Vancomycin trough 22. Received order from [facility] pharmacist Tomás to hold dose today, do another level before dialysis on 06/01/19.
--- NOTE | 2019-05-30 16:18 | NUR ---
Resident returned from S/P hemodialysis treatment, no s/s of any complications noted. Resident in stable condition. RT upper chest HD catheter intact, no bleeding noted, covered with dressing, clean and dry. Kept comfortable in bed.
--- NOTE | 2019-05-30 16:24 | NUR ---
RT NOTE: RECEIVED PT ON NOTED ORDERED VENT SETTINGS. PT LEFT FOR HEMODIALYSIS TX. PT ARRIVE BACK TO FACILITY AFTER TX NO RESPIRATORY DISTRESS NOTED. TRACH CHECKED SECURE AND PATENT. SXD AND LAVAGED PT Q ROUND AND NEEDED. TRACH CARE DONE. SPARE TRACH AND AMBU BAG @ BEDSIDE. ALARMS CHECKED ON AND AUDIBLE.
[2019-05-30] MEDS: AMIKACIN 350 MG in IV D5W 100 ML IV SCH (20:00)
--- NOTE | 2019-05-30 21:23 | NUR ---
RN NOTES Received Amikacin level of 17.1, called [facility] and relayed level. Per pharmacistLux, level is high, hold Amikacin dose tonight. Amikacin level held.
[2019-05-31] VITALS (8 sets, daily range): BP systolic 111–143; BP diastolic 52–86
[2019-05-31] MEDS: POLYVINYL ALCOHOL 15 ML BOTTLE EACHEYE SCH ×5 (00:24→23:55)
[2019-05-31] MEDS: BLOOD SUGAR DIAGNOSTIC 1 EACH STRIP IN SCH ×5 (00:24→23:55)
[2019-05-31] MEDS: INSULIN ASPART/LISPRO 100 UNIT/ML CARTRIDGE SQ PRN ×5 (00:26→23:56)
[2019-05-31] MEDS: NEPRO 1,000 ML BOTTLE GT PRN ×2 (00:26→23:37)
[2019-05-31] MEDS: METOCLOPRAMIDE HCL 10 MG TABLET GT SCH ×3 (05:45→20:56)
[2019-05-31] MEDS: OMEPRAZOLE 20 MG CAPSULE.DR GT SCH (05:45)
[2019-05-31] MEDS: MECLIZINE HCL 12.5 MG TABLET GT PRN (08:05)
--- NOTE | 2019-05-31 08:28 | NUR ---
RT NOTE: RECEIVED PT ON NOTED ORDERED VENT SETTINGS. NO RESPIRATORY DISTRESS NOTED. TRACH CHECKED SECURE AND PATENT. SXD AND LAVAGED PT Q ROUND AND NEEDED. TRACH CARE DONE. SPARE TRACH AND AMBU BAG @ BEDSIDE. ALARMS CHECKED ON AND AUDIBLE.
[2019-05-31] MEDS: PROSOURCE / PROSTAT (PYXIS) 30 ML UDC GT SCH ×2 (08:37→16:20)
[2019-05-31] MEDS: CALCITRIOL ORAL SOLUTION 1 MCG/ML GT SCH (08:37)
[2019-05-31] MEDS: LACTOBACILLUS RHAMNOSUS GG 1 EACH CAP.SPRINK GT SCH ×2 (08:37→16:20)
[2019-05-31] MEDS: NEUTRA PHOS 1 POWD.PACKET GT SCH (08:37)
[2019-05-31] MEDS: SUCRALFATE 1 G/10 ML UDC GT SCH (08:37)
[2019-05-31] MEDS: VIT B CMPLX 3/FA/VIT C/BIOTIN 1 TAB TABLET GT SCH (08:37)
[2019-05-31] MEDS: ASCORBIC ACID 500 MG TABLET GT SCH (08:38)
[2019-05-31] MEDS: ZINC SULFATE 220 MG CAPSULE GT SCH (08:38)
[2019-05-31] MEDS: INSULIN GLARGINE,BASAGLAR 100 UNIT/ML INSULN.PEN SQ SCH ×2 (08:39→21:10)
[2019-05-31] MEDS: HYDROCODONE/APAP 5/325MG 1 EACH TABLET GT SCH ×2 (08:40→20:55)
[2019-05-31] MEDS: METOPROLOL TARTRATE 50 MG TABLET GT SCH ×2 (08:41→20:54)
[2019-05-31] MEDS: HYDROGEL DRESSING 90 GM TUBE TP SCH ×2 (09:10→20:57)
[2019-05-31] MEDS: AMMONIUM LACTATE 227 GM BOTTLE TP SCH ×2 (09:10→20:57)
[2019-05-31] MEDS: BETADINE 5% CREAM TP SCH ×5 (09:10→20:57)
[2019-05-31] MEDS: Z GUARD REMEDY 4 OZ OINT TP SCH ×4 (09:10→20:57)
[2019-05-31] MEDS: POVIDONE-IODINE OINT 28.4 GM TUBE TP SCH ×8 (09:10→20:56)
[2019-05-31] MEDS: NYSTATIN CREAM 15 GM TUBE TP SCH ×2 (09:10→20:57)
[2019-05-31] MEDS: TRIAMCINOLONE ACETONIDE 0.1% CR 15 GM TUBE TP SCH ×4 (09:10→20:56)
[2019-05-31] MEDS: HYDROGEN PEROXIDE 480 ML BOTTLE TP SCH ×2 (09:15→20:18)
[2019-05-31] MEDS: VANCOMYCIN POST DIALYSIS 500MG IV PRN ×2 (18:17)
[2019-06-01] VITALS (7 sets, daily range): BP systolic 114–140; BP diastolic 32–88
--- NOTE | 2019-06-01 03:44 | NUR ---
PT RCVD SARAH'D ON MECHANICAL VENT WITH CHARTED SETTINGS. SX DONE. PT SARAH IS PATENT AND SECURE. VENT PLUGGED INTO RED OUTLET. VENT ALARMS ARE ON AND AUDIBLE. AMBU BAG AT BEDSIDE. Addendum: 06/01/19 at 0344 by OLAMIDE LANDIN RT Amended: Links added.
[2019-06-01] MEDS: METOCLOPRAMIDE HCL 10 MG TABLET GT SCH ×3 (05:42→21:00)
[2019-06-01] MEDS: POLYVINYL ALCOHOL 15 ML BOTTLE EACHEYE SCH ×4 (05:42→23:31)
[2019-06-01] MEDS: BLOOD SUGAR DIAGNOSTIC 1 EACH STRIP IN SCH ×3 (05:43→17:46)
[2019-06-01] MEDS: OMEPRAZOLE 20 MG CAPSULE.DR GT SCH (05:43)
[2019-06-01] MEDS: INSULIN ASPART/LISPRO 100 UNIT/ML CARTRIDGE SQ PRN ×3 (05:44→17:46)
[2019-06-01] MEDS: HYDROGEN PEROXIDE 480 ML BOTTLE TP SCH ×2 (09:00→21:32)
[2019-06-01] MEDS: METOPROLOL TARTRATE 50 MG TABLET GT SCH ×2 (09:00→22:00)
[2019-06-01] MEDS: Z GUARD REMEDY 4 OZ OINT TP SCH ×4 (09:00→21:00)
[2019-06-01] MEDS: NYSTATIN CREAM 15 GM TUBE TP SCH ×2 (09:00→21:00)
[2019-06-01] MEDS: TRIAMCINOLONE ACETONIDE 0.1% CR 15 GM TUBE TP SCH ×4 (09:00→21:00)
[2019-06-01] MEDS: HYDROGEL DRESSING 90 GM TUBE TP SCH ×2 (09:00→21:00)
[2019-06-01] MEDS: BETADINE 5% CREAM TP SCH ×5 (09:00→21:00)
[2019-06-01] MEDS: POVIDONE-IODINE OINT 28.4 GM TUBE TP SCH ×8 (09:00→21:00)
[2019-06-01] MEDS: AMMONIUM LACTATE 227 GM BOTTLE TP SCH ×2 (09:00→21:00)
[2019-06-01] MEDS: LACTOBACILLUS RHAMNOSUS GG 1 EACH CAP.SPRINK GT SCH ×2 (09:14→17:35)
[2019-06-01] MEDS: VIT B CMPLX 3/FA/VIT C/BIOTIN 1 TAB TABLET GT SCH (09:14)
[2019-06-01] MEDS: CALCITRIOL ORAL SOLUTION 1 MCG/ML GT SCH (09:14)
[2019-06-01] MEDS: SUCRALFATE 1 G/10 ML UDC GT SCH (09:14)
[2019-06-01] MEDS: NEUTRA PHOS 1 POWD.PACKET GT SCH (09:14)
[2019-06-01] MEDS: HYDROCODONE/APAP 5/325MG 1 EACH TABLET GT SCH ×2 (09:15→21:00)
[2019-06-01] MEDS: ZINC SULFATE 220 MG CAPSULE GT SCH (09:15)
[2019-06-01] MEDS: ASCORBIC ACID 500 MG TABLET GT SCH (09:15)
[2019-06-01] MEDS: PROSOURCE / PROSTAT (PYXIS) 30 ML UDC GT SCH ×2 (09:15→17:35)
[2019-06-01] MEDS: INSULIN GLARGINE,BASAGLAR 100 UNIT/ML INSULN.PEN SQ SCH ×2 (09:16→21:08)
--- NOTE | 2019-06-01 12:50 | NUR ---
Resident left to dialysis center, was suctioned before leaving, vital signs blood pressure 114/68, pulse 100, saturation ranging between 96-98, blood sugar 257, per scale 9 units given. Ambu bag and extra trach kit taken with resident and seat cushion.
--- NOTE | 2019-06-01 16:50 | NUR ---
Patient came back from dialysis, spoke to [facility] pharmacist (cinda) this morning, vanco random level 18 ok to administer vanco 500 mg IV after dialysis. Amikacin dose for tonight on hold, spoke to gema manuel (toñito) regarding random amikacin level 0f 9.8. Random amikacin level yovanny. (06/02). Noted and carried out. Patient not in distress, closely monitored.
--- NOTE | 2019-06-01 17:00 | NUR ---
RT: RECEIVED PT ON [facility] VENT WITH SETTINGS PER MD ORDER. WHALE FISHERMAN DONE. SPARE TRACH AND AMBU BAG AT HEAD OF BED. ALARMS ON AND AUDIBLE. VENT PLUGGED INTO RED OUTLET. SUCTIONED MODERATE AMOUNTS OF THICK, YELLOW SECRETIONS. TRACH CARE DONE. AIRWAY SECURED AND PATENT. NO SOB OR SIGNS OF DISTRESS NOTED AT THIS TIME. WILL CONTINUE TO MONITOR PT FOR ANY CHANGE OF CONDITION. Addendum: 06/01/19 at 1804 by MAURICE ROCK RT Amended: Links added.
[2019-06-01] MEDS: VANCOMYCIN POST DIALYSIS 500MG IV PRN ×2 (18:24)
--- NOTE | 2019-06-01 19:43 | NUR ---
RECEIVED TRACH PT ON MECH VENT WITH NOTED SETTINGS PER MD ORDERS. TRACH IS PATENT AND SECURED. FINISHING RANGE OPERATOR DONE. SX DONE PRN. VENT PLUGGED INTO RED OUTLET. ALARMS ON AND AUDIBLE. AMBU BAG @ BEDSIDE. NO RESP DISTRESS AT THIS TIME. WILL CONT TO MONITOR PT.
[2019-06-01] MEDS: AMIKACIN 350 MG in IV D5W 100 ML IV SCH (20:00)
[2019-06-02] VITALS (8 sets, daily range): BP systolic 99–147; BP diastolic 38–69
[2019-06-02] MEDS: BLOOD SUGAR DIAGNOSTIC 1 EACH STRIP IN SCH ×5 (00:28→23:53)
[2019-06-02] MEDS: INSULIN ASPART/LISPRO 100 UNIT/ML CARTRIDGE SQ PRN ×4 (00:37→17:55)
[2019-06-02] MEDS: METOCLOPRAMIDE HCL 10 MG TABLET GT SCH ×3 (05:01→21:21)
[2019-06-02] MEDS: NEPRO 1,000 ML BOTTLE GT PRN (05:03)
[2019-06-02] MEDS: POLYVINYL ALCOHOL 15 ML BOTTLE EACHEYE SCH ×4 (05:04→23:53)
[2019-06-02] MEDS: OMEPRAZOLE 20 MG CAPSULE.DR GT SCH (05:06)
--- NOTE | 2019-06-02 08:00 | NUR ---
RT: RECEIVED PT ON [facility] VENT WITH SETTINGS PER MD ORDER. SHIPWRIGHT SUPERVISOR DONE. SPARE TRACH AND AMBU BAG AT HEAD OF BED. ALARMS ON AND AUDIBLE. VENT PLUGGED INTO RED OUTLET. SUCTIONED SMAL AMOUNTS OF THICK, YELLOW SECRETIONS. TRACH CARE DONE. AIRWAY SECURED AND PATENT. NO SIGNS OF DISTRESS NOTED AT THIS TIME. WILL CONTINUE TO MONITOR PT FOR ANY CHANGE OF CONDITION. Addendum: 06/02/19 at 1104 by MAURICE ROCK RT Amended: Links added.
[2019-06-02] MEDS: ZINC SULFATE 220 MG CAPSULE GT SCH (09:00)
[2019-06-02] MEDS: VIT B CMPLX 3/FA/VIT C/BIOTIN 1 TAB TABLET GT SCH (09:00)
[2019-06-02] MEDS: SUCRALFATE 1 G/10 ML UDC GT SCH (09:00)
[2019-06-02] MEDS: NEUTRA PHOS 1 POWD.PACKET GT SCH ×2 (09:00→17:57)
[2019-06-02] MEDS: PROSOURCE / PROSTAT (PYXIS) 30 ML UDC GT SCH ×2 (09:00→17:56)
[2019-06-02] MEDS: HYDROGEN PEROXIDE 480 ML BOTTLE TP SCH ×2 (09:00→21:01)
[2019-06-02] MEDS: LACTOBACILLUS RHAMNOSUS GG 1 EACH CAP.SPRINK GT SCH ×2 (09:00→17:56)
[2019-06-02] MEDS: CALCITRIOL ORAL SOLUTION 1 MCG/ML GT SCH (09:00)
[2019-06-02] MEDS: METOPROLOL TARTRATE 50 MG TABLET GT SCH ×2 (09:00→21:21)
[2019-06-02] MEDS: INSULIN GLARGINE,BASAGLAR 100 UNIT/ML INSULN.PEN SQ SCH ×2 (09:00→21:31)
[2019-06-02] MEDS: ASCORBIC ACID 500 MG TABLET GT SCH (09:00)
[2019-06-02] MEDS: HYDROCODONE/APAP 5/325MG 1 EACH TABLET GT SCH ×2 (10:45→21:21)
[2019-06-02] MEDS: HYDROGEL DRESSING 90 GM TUBE TP SCH ×4 (11:15→21:22)
[2019-06-02] MEDS: NYSTATIN CREAM 15 GM TUBE TP SCH ×2 (11:15→21:22)
[2019-06-02] MEDS: AMMONIUM LACTATE 227 GM BOTTLE TP SCH ×2 (11:15→21:22)
[2019-06-02] MEDS: TRIAMCINOLONE ACETONIDE 0.1% CR 15 GM TUBE TP SCH ×4 (11:15→21:21)
[2019-06-02] MEDS: POVIDONE-IODINE OINT 28.4 GM TUBE TP SCH ×8 (11:15→21:22)
[2019-06-02] MEDS: KETOCONAZOLE SHAMPOO 120 ML BOTTLE TP SCH (11:15)
[2019-06-02] MEDS: BETADINE 5% CREAM TP SCH ×5 (11:15→21:22)
[2019-06-02] MEDS: Z GUARD REMEDY 4 OZ OINT TP SCH ×4 (11:15→21:22)
--- NOTE | 2019-06-02 12:51 | NUR ---
RADHA received a call from [facility] [phone] Yanely GARCIA stating that they have been trying to contact Dr. Madsen for a Vascular consult with the resident as they are inquiring about catheter removal for the resident. RADHA contacted Dr. Mcneill office [phone] and left a message regarding above mentioned information with his video library assistant, Noemy. RADHA received a call from Dr. Madsen [phone], who stated, The patients arms are so contracted, that it doesnt seem that we would be able to place an access in him. He would likely be dependent on catheter dialysis. Per Dr. Madsen, he saw the patient on 05/16/19. RADHA contacted Yanely [phone] back to relay information stated by Dr. Madsen. Yanely requested that RADHA fax Dr. Charito henao to her at [phone]. RADHA called patients , Janet Bravo [phone] to relay above mentioned information. Janet gave RADHA verbal consent to fax Dr. Charito henao to [facility]ARC[facility]. RADHA faxed Dr. Charito henao to [facility]ARC[facility] [phone].
--- NOTE | 2019-06-02 15:35 | NUR ---
IDT Care Plan Conference Invitation to family: RADHA communicated to pt.s , that the next IDT meeting will be taking place 06/10/19 from 12:30-1:30pm in the activities room. Per Adrienne she would like to participate via phone conference. SW to phone the family in during IDT for their collaboration.
--- NOTE | 2019-06-02 17:15 | NUR ---
Received order to give Amikacin 250 mg IV today then Amikacin 250 mg IV after dialysis on 06/03/19 to complete therapy.
[2019-06-02] MEDS: AMIKACIN 250 MG in IV D5W 100 ML IV SCH (18:00)
--- NOTE | 2019-06-02 21:54 | NUR ---
RT NOTE PATIENT RECEIVED TRACHED ON MECHANICAL VENTILATION. AMBU BAG/BACK UP TRACH @ BEDSIDE. SX DONE, TRACH SECURED AND PATENT. VENT PLUGGED TO RED OUTLET. ALARMS ON AND AUDIBLE. CONT. POX CONNECTED. WILL CONTINUE TO MONITOR T/O SHIFT. Addendum: 06/02/19 at 2156 by MARCIA YOUNG RT Amended: Links added.
[2019-06-03] VITALS (8 sets, daily range): BP systolic 123–148; BP diastolic 50–78
[2019-06-03] MEDS: INSULIN ASPART/LISPRO 100 UNIT/ML CARTRIDGE SQ PRN ×4 (00:01→17:32)
[2019-06-03] MEDS: POLYVINYL ALCOHOL 15 ML BOTTLE EACHEYE SCH ×3 (05:36→17:32)
[2019-06-03] MEDS: OMEPRAZOLE 20 MG CAPSULE.DR GT SCH (05:36)
[2019-06-03] MEDS: METOCLOPRAMIDE HCL 10 MG TABLET GT SCH ×3 (05:36→21:00)
[2019-06-03] MEDS: BLOOD SUGAR DIAGNOSTIC 1 EACH STRIP IN SCH ×3 (06:33→17:32)
[2019-06-03] MEDS: SUCRALFATE 1 G/10 ML UDC GT SCH (09:00)
[2019-06-03] MEDS: VIT B CMPLX 3/FA/VIT C/BIOTIN 1 TAB TABLET GT SCH (09:00)
[2019-06-03] MEDS: METOPROLOL TARTRATE 50 MG TABLET GT SCH ×2 (09:00→21:00)
[2019-06-03] MEDS: ZINC SULFATE 220 MG CAPSULE GT SCH (09:00)
[2019-06-03] MEDS: ASCORBIC ACID 500 MG TABLET GT SCH (09:00)
[2019-06-03] MEDS: LACTOBACILLUS RHAMNOSUS GG 1 EACH CAP.SPRINK GT SCH ×2 (09:00→17:32)
[2019-06-03] MEDS: INSULIN GLARGINE,BASAGLAR 100 UNIT/ML INSULN.PEN SQ SCH ×2 (09:00→21:00)
[2019-06-03] MEDS: PROSOURCE / PROSTAT (PYXIS) 30 ML UDC GT SCH ×2 (09:00→17:32)
[2019-06-03] MEDS: CALCITRIOL ORAL SOLUTION 1 MCG/ML GT SCH (09:00)
[2019-06-03] MEDS: NEUTRA PHOS 1 POWD.PACKET GT SCH ×2 (09:00→17:32)
[2019-06-03] MEDS: HYDROGEN PEROXIDE 480 ML BOTTLE TP SCH ×2 (09:24→21:19)
[2019-06-03] MEDS: HYDROCODONE/APAP 5/325MG 1 EACH TABLET GT SCH ×2 (10:00→21:00)
[2019-06-03] MEDS: AMMONIUM LACTATE 227 GM BOTTLE TP SCH ×2 (10:30→21:00)
[2019-06-03] MEDS: Z GUARD REMEDY 4 OZ OINT TP SCH ×4 (10:30→21:00)
[2019-06-03] MEDS: HYDROGEL DRESSING 90 GM TUBE TP SCH ×4 (10:30→21:00)
[2019-06-03] MEDS: POVIDONE-IODINE OINT 28.4 GM TUBE TP SCH ×8 (10:30→21:00)
[2019-06-03] MEDS: BETADINE 5% CREAM TP SCH (10:30)
[2019-06-03] MEDS: TRIAMCINOLONE ACETONIDE 0.1% CR 15 GM TUBE TP SCH ×4 (10:30→21:00)
[2019-06-03] MEDS: NYSTATIN CREAM 15 GM TUBE TP SCH ×2 (10:30→21:00)
[2019-06-03] MEDS: AMIKACIN 250 MG in IV D5W 100 ML IV SCH (18:33)
[2019-06-04] VITALS (7 sets, daily range): BP systolic 136–157; BP diastolic 43–75
[2019-06-04] MEDS: BLOOD SUGAR DIAGNOSTIC 1 EACH STRIP IN SCH ×5 (00:12→23:44)
[2019-06-04] MEDS: INSULIN ASPART/LISPRO 100 UNIT/ML CARTRIDGE SQ PRN ×5 (00:12→23:47)
[2019-06-04] MEDS: POLYVINYL ALCOHOL 15 ML BOTTLE EACHEYE SCH ×5 (00:12→23:44)
--- NOTE | 2019-06-04 04:40 | NUR ---
RT PATIENT WAS RECEIVED ON CONTINUOUS VENT SUPPORT ON NOTED VENT SETTINGS. ALARMS ARE SET AND AUDIBLE. PATIENT STABLE THROUGHOUT THE SHIFT. AIWAY PATENT AND SECURED. . WILL CONTINUE TO MONITOR. Addendum: 06/04/19 at 0444 by ANTONI SANTACRUZ RT Amended: Links added.
[2019-06-04] MEDS: METOCLOPRAMIDE HCL 10 MG TABLET GT SCH ×3 (05:15→21:49)
[2019-06-04] MEDS: OMEPRAZOLE 20 MG CAPSULE.DR GT SCH (05:15)
[2019-06-04] MEDS: VANCOMYCIN POST DIALYSIS 500MG IV PRN ×2 (06:07)
[2019-06-04] MEDS: NEPRO 1,000 ML BOTTLE GT PRN (06:10)
[2019-06-04] MEDS: ASCORBIC ACID 500 MG TABLET GT SCH (09:00)
[2019-06-04] MEDS: INSULIN GLARGINE,BASAGLAR 100 UNIT/ML INSULN.PEN SQ SCH ×2 (09:00→21:50)
[2019-06-04] MEDS: VIT B CMPLX 3/FA/VIT C/BIOTIN 1 TAB TABLET GT SCH (09:00)
[2019-06-04] MEDS: ZINC SULFATE 220 MG CAPSULE GT SCH (09:00)
[2019-06-04] MEDS: LACTOBACILLUS RHAMNOSUS GG 1 EACH CAP.SPRINK GT SCH ×2 (09:00→17:54)
[2019-06-04] MEDS: NEUTRA PHOS 1 POWD.PACKET GT SCH ×2 (09:00→17:54)
[2019-06-04] MEDS: HYDROGEN PEROXIDE 480 ML BOTTLE TP SCH ×2 (09:00→21:51)
[2019-06-04] MEDS: CALCITRIOL ORAL SOLUTION 1 MCG/ML GT SCH (09:00)
[2019-06-04] MEDS: METOPROLOL TARTRATE 50 MG TABLET GT SCH ×2 (09:00→21:49)
[2019-06-04] MEDS: SUCRALFATE 1 G/10 ML UDC GT SCH (09:00)
[2019-06-04] MEDS: PROSOURCE / PROSTAT (PYXIS) 30 ML UDC GT SCH ×2 (09:00→17:54)
[2019-06-04] MEDS: HYDROCODONE/APAP 5/325MG 1 EACH TABLET GT SCH ×2 (10:00→21:49)
[2019-06-04] MEDS: NYSTATIN CREAM 15 GM TUBE TP SCH ×2 (10:30→21:51)
[2019-06-04] MEDS: TRIAMCINOLONE ACETONIDE 0.1% CR 15 GM TUBE TP SCH ×4 (10:30→21:51)
[2019-06-04] MEDS: BETADINE 5% CREAM TP SCH (10:30)
[2019-06-04] MEDS: Z GUARD REMEDY 4 OZ OINT TP SCH ×4 (10:30→21:51)
[2019-06-04] MEDS: HYDROGEL DRESSING 90 GM TUBE TP SCH ×4 (10:30→21:51)
[2019-06-04] MEDS: AMMONIUM LACTATE 227 GM BOTTLE TP SCH ×2 (10:30→21:51)
[2019-06-04] MEDS: POVIDONE-IODINE OINT 28.4 GM TUBE TP SCH ×8 (10:30→21:51)
--- NOTE | 2019-06-04 19:58 | NUR ---
RT Notes PT [facility] vent on charted settings. No signs of resp distress/SOB noted at this time. Airway patent and secured. BUSINESS AND MARKETING TEACHER done. PT suctioned. Ambubag and back up track at head of bead. Alarms set and audible. Vent connected to red outlet. Will cont to monitor. Addendum: 06/05/19 at 0606 by CARLOS YEH RT Amended: Links added.
[2019-06-05] VITALS (8 sets, daily range): BP systolic 128–149; BP diastolic 55–89
[2019-06-05] MEDS: POLYVINYL ALCOHOL 15 ML BOTTLE EACHEYE SCH ×3 (05:34→17:22)
[2019-06-05] MEDS: METOCLOPRAMIDE HCL 10 MG TABLET GT SCH ×3 (05:34→21:00)
[2019-06-05] MEDS: BLOOD SUGAR DIAGNOSTIC 1 EACH STRIP IN SCH ×3 (05:34→17:26)
[2019-06-05] MEDS: OMEPRAZOLE 20 MG CAPSULE.DR GT SCH (05:34)
[2019-06-05] MEDS: INSULIN ASPART/LISPRO 100 UNIT/ML CARTRIDGE SQ PRN ×3 (05:35→17:27)
[2019-06-05] MEDS: NEPRO 1,000 ML BOTTLE GT PRN (05:36)
[2019-06-05] MEDS: HYDROGEN PEROXIDE 480 ML BOTTLE TP SCH ×2 (08:34→21:00)
[2019-06-05] MEDS: CALCITRIOL ORAL SOLUTION 1 MCG/ML GT SCH (09:06)
[2019-06-05] MEDS: SUCRALFATE 1 G/10 ML UDC GT SCH (09:06)
[2019-06-05] MEDS: ASCORBIC ACID 500 MG TABLET GT SCH (09:07)
[2019-06-05] MEDS: LACTOBACILLUS RHAMNOSUS GG 1 EACH CAP.SPRINK GT SCH ×2 (09:07→17:21)
[2019-06-05] MEDS: NEUTRA PHOS 1 POWD.PACKET GT SCH ×2 (09:07→17:23)
[2019-06-05] MEDS: PROSOURCE / PROSTAT (PYXIS) 30 ML UDC GT SCH ×2 (09:07→17:21)
[2019-06-05] MEDS: ZINC SULFATE 220 MG CAPSULE GT SCH (09:07)
[2019-06-05] MEDS: VIT B CMPLX 3/FA/VIT C/BIOTIN 1 TAB TABLET GT SCH (09:07)
[2019-06-05] MEDS: HYDROCODONE/APAP 5/325MG 1 EACH TABLET GT SCH ×2 (09:18→21:00)
[2019-06-05] MEDS: METOPROLOL TARTRATE 50 MG TABLET GT SCH ×2 (09:18→21:00)
[2019-06-05] MEDS: INSULIN GLARGINE,BASAGLAR 100 UNIT/ML INSULN.PEN SQ SCH ×2 (09:19→21:00)
[2019-06-05] MEDS: TRIAMCINOLONE ACETONIDE 0.1% CR 15 GM TUBE TP SCH ×4 (09:55→21:00)
[2019-06-05] MEDS: POVIDONE-IODINE OINT 28.4 GM TUBE TP SCH ×8 (09:55→21:00)
[2019-06-05] MEDS: NYSTATIN CREAM 15 GM TUBE TP SCH ×2 (09:56→21:00)
[2019-06-05] MEDS: BETADINE 5% CREAM TP SCH (09:56)
[2019-06-05] MEDS: AMMONIUM LACTATE 227 GM BOTTLE TP SCH ×2 (09:56→21:00)
[2019-06-05] MEDS: Z GUARD REMEDY 4 OZ OINT TP SCH ×4 (09:56→21:00)
[2019-06-05] MEDS: HYDROGEL DRESSING 90 GM TUBE TP SCH ×4 (09:56→21:00)
--- NOTE | 2019-06-05 13:30 | NUR ---
SEEN AND EXAMINED BY DR. MUNROE WITH NEW ORDERS, D/C PREVIOUS ORDER BASAGLAR 23 UNITS SQ, NEW ORDER INCREASE BASAGLAR KWIKPEN U100 OUTER 100 UNIT/1ML, INSULIN PEN INJECT 25 UNITS SQ Q12, DX DM, NEW ORDER CARRIED OUT, RESPONSIBLE DEMOCRAT JOSE MADE AWARE, NEW ORDER FAXED TO PHARMACY.
--- NOTE | 2019-06-05 16:05 | NUR ---
RT: RECEIVED PT ON [facility] VENT WITH SETTINGS PER MD ORDER. WELT BUTTER HAND DONE. SPARE TRACH AND AMBU BAG AT HEAD OF BED. ALARMS ON AND AUDIBLE. VENT PLUGGED INTO RED OUTLET. SUCTIONED SMALL AMOUNTS OF THICK, PALE YELLOW SECRETIONS. TRACH CARE DONE. AIRWAY SECURED AND PATENT. NO SIGNS OF DISTRESS NOTED AT THIS TIME. WILL CONTINUE TO MONITOR PT FOR ANY CHANGES. VENT CIRCUIT CHANGED PER RT PROTOCOL. Addendum: 06/05/19 at 1833 by MAURICE ROCK RT Amended: Links added.
[2019-06-05] MEDS: ONDANSETRON 4 MG TAB.RAPDIS GT PRN (18:42)
--- NOTE | 2019-06-05 18:42 | NUR ---
Patient had large amount of emesis, approx 100ml, color yellow, was suctioned oral and via tracheostomy minimal amount of secretion, abdomen soft non-distended, x4 bowel sounds present, no gastric residual noted, had 3 BM, zofran 4mg via gt was given, HOB remains elevated at 35 degrees.
[2019-06-06] VITALS: BP 136/59
[2019-06-06] MEDS: POLYVINYL ALCOHOL 15 ML BOTTLE EACHEYE SCH ×5 (00:47→23:24)
[2019-06-06] MEDS: BLOOD SUGAR DIAGNOSTIC 1 EACH STRIP IN SCH ×5 (00:47→23:24)
[2019-06-06] MEDS: INSULIN ASPART/LISPRO 100 UNIT/ML CARTRIDGE SQ PRN ×5 (00:48→23:25)
[2019-06-06 04:00] VITALS: BP 130/70
[2019-06-06] MEDS: OMEPRAZOLE 20 MG CAPSULE.DR GT SCH (05:31)
[2019-06-06] MEDS: NEPRO 1,000 ML BOTTLE GT PRN (05:31)
[2019-06-06] MEDS: METOCLOPRAMIDE HCL 10 MG TABLET GT SCH ×3 (05:31→21:17)
[2019-06-06 07:54] VITALS: BP 117/62
[2019-06-06] MEDS: SUCRALFATE 1 G/10 ML UDC GT SCH (08:13)
[2019-06-06] MEDS: PROSOURCE / PROSTAT (PYXIS) 30 ML UDC GT SCH ×2 (08:13→17:00)
[2019-06-06] MEDS: CALCITRIOL ORAL SOLUTION 1 MCG/ML GT SCH (08:13)
[2019-06-06] MEDS: LACTOBACILLUS RHAMNOSUS GG 1 EACH CAP.SPRINK GT SCH ×2 (08:13→17:00)
[2019-06-06] MEDS: ZINC SULFATE 220 MG CAPSULE GT SCH (08:13)
[2019-06-06] MEDS: VIT B CMPLX 3/FA/VIT C/BIOTIN 1 TAB TABLET GT SCH (08:13)
[2019-06-06] MEDS: NEUTRA PHOS 1 POWD.PACKET GT SCH ×2 (08:13→17:00)
[2019-06-06] MEDS: ASCORBIC ACID 500 MG TABLET GT SCH (08:15)
[2019-06-06] MEDS: INSULIN GLARGINE,BASAGLAR 100 UNIT/ML INSULN.PEN SQ SCH ×2 (08:15→21:19)
[2019-06-06] MEDS: HYDROCODONE/APAP 5/325MG 1 EACH TABLET GT SCH ×2 (08:16→21:17)
[2019-06-06] MEDS: ONDANSETRON 4 MG TAB.RAPDIS GT PRN ×2 (08:21→08:22)
[2019-06-06] MEDS: HYDROGEN PEROXIDE 480 ML BOTTLE TP SCH ×2 (09:00→20:59)
[2019-06-06] MEDS: METOPROLOL TARTRATE 50 MG TABLET GT SCH ×2 (09:00→21:17)
[2019-06-06] MEDS: Z GUARD REMEDY 4 OZ OINT TP SCH ×4 (09:45→21:20)
[2019-06-06] MEDS: TRIAMCINOLONE ACETONIDE 0.1% CR 15 GM TUBE TP SCH ×4 (09:45→21:19)
[2019-06-06] MEDS: NYSTATIN CREAM 15 GM TUBE TP SCH ×2 (09:45→21:20)
[2019-06-06] MEDS: AMMONIUM LACTATE 227 GM BOTTLE TP SCH ×2 (09:45→21:20)
[2019-06-06] MEDS: BETADINE 5% CREAM TP SCH (09:45)
[2019-06-06] MEDS: POVIDONE-IODINE OINT 28.4 GM TUBE TP SCH ×8 (09:45→21:19)
[2019-06-06] MEDS: HYDROGEL DRESSING 90 GM TUBE TP SCH ×4 (09:45→21:19)
[2019-06-06 16:00] VITALS: BP 143/96
[2019-06-06] MEDS: MECLIZINE HCL 12.5 MG TABLET GT PRN (17:02)
[2019-06-06 21:05] VITALS: BP 127/61
[2019-06-06 21:25] VITALS: BP 127/61
[2019-06-07 03:07] VITALS: BP 134/69
[2019-06-07 05:41] VITALS: BP 133/59
[2019-06-07] MEDS: POLYVINYL ALCOHOL 15 ML BOTTLE EACHEYE SCH ×4 (05:43→23:28)
[2019-06-07] MEDS: OMEPRAZOLE 20 MG CAPSULE.DR GT SCH (05:43)
[2019-06-07] MEDS: METOCLOPRAMIDE HCL 10 MG TABLET GT SCH ×3 (05:43→20:29)
[2019-06-07] MEDS: BLOOD SUGAR DIAGNOSTIC 1 EACH STRIP IN SCH ×4 (05:43→23:30)
[2019-06-07] MEDS: INSULIN ASPART/LISPRO 100 UNIT/ML CARTRIDGE SQ PRN ×4 (05:44→23:50)
--- NOTE | 2019-06-07 07:39 | NUR ---
RT Pt received trached on the vent with noted settings. Vent is plugged into red outlet. Pt suctioned, no SOB or respiratory distress noted at this time. Addendum: 06/07/19 at 0936 by SAJAN BOLANOS RT Amended: Links added.
[2019-06-07 08:00] VITALS: BP 120/69
[2019-06-07] MEDS: HYDROGEN PEROXIDE 480 ML BOTTLE TP SCH ×2 (09:00→20:30)
[2019-06-07] MEDS: SUCRALFATE 1 G/10 ML UDC GT SCH (09:01)
[2019-06-07] MEDS: LACTOBACILLUS RHAMNOSUS GG 1 EACH CAP.SPRINK GT SCH ×2 (09:01→17:54)
[2019-06-07] MEDS: CALCITRIOL ORAL SOLUTION 1 MCG/ML GT SCH (09:01)
[2019-06-07] MEDS: NEUTRA PHOS 1 POWD.PACKET GT SCH ×2 (09:02→17:54)
[2019-06-07] MEDS: METOPROLOL TARTRATE 50 MG TABLET GT SCH ×2 (09:02→21:46)
[2019-06-07] MEDS: HYDROCODONE/APAP 5/325MG 1 EACH TABLET GT SCH ×2 (09:02→20:29)
[2019-06-07] MEDS: VIT B CMPLX 3/FA/VIT C/BIOTIN 1 TAB TABLET GT SCH (09:02)
[2019-06-07] MEDS: PROSOURCE / PROSTAT (PYXIS) 30 ML UDC GT SCH ×2 (09:02→17:54)
[2019-06-07] MEDS: ZINC SULFATE 220 MG CAPSULE GT SCH (09:03)
[2019-06-07] MEDS: ASCORBIC ACID 500 MG TABLET GT SCH (09:03)
[2019-06-07] MEDS: INSULIN GLARGINE,BASAGLAR 100 UNIT/ML INSULN.PEN SQ SCH ×2 (09:27→21:00)
[2019-06-07] MEDS: TRIAMCINOLONE ACETONIDE 0.1% CR 15 GM TUBE TP SCH ×4 (09:30→20:30)
[2019-06-07] MEDS: AMMONIUM LACTATE 227 GM BOTTLE TP SCH ×2 (09:30→20:31)
[2019-06-07] MEDS: POVIDONE-IODINE OINT 28.4 GM TUBE TP SCH ×8 (09:30→20:30)
[2019-06-07] MEDS: HYDROGEL DRESSING 90 GM TUBE TP SCH ×4 (09:30→20:30)
[2019-06-07] MEDS: Z GUARD REMEDY 4 OZ OINT TP SCH ×4 (09:30→20:31)
[2019-06-07] MEDS: BETADINE 5% CREAM TP SCH (09:30)
[2019-06-07] MEDS: NYSTATIN CREAM 15 GM TUBE TP SCH ×2 (09:30→20:31)
[2019-06-07 12:00] VITALS: BP 100/52
[2019-06-07] MEDS: ONDANSETRON 4 MG TAB.RAPDIS GT PRN (12:00)
--- NOTE | 2019-06-07 16:20 | NUR ---
Seen by Dr Rocha this morning. He ordered to place pt on SIMV 4 PSV 15 PEEP +5 FiO2 30%, titrate SPO2 greater than or equal to 94%, ABG 1 hour post vent change on 06/13/19. Notified pt's daughter.
[2019-06-07] MEDS: NEPRO 1,000 ML BOTTLE GT PRN (17:56)
[2019-06-07] MEDS: MECLIZINE HCL 12.5 MG TABLET GT PRN (18:26)
[2019-06-07] MEDS: ACETAMINOPHEN 650 MG/20 ML UDC- SA PATIENTS-PAIN ONLY GT PRN (18:28)
[2019-06-07 18:32] VITALS: BP 127/66
[2019-06-07 20:00] VITALS: BP 116/60
[2019-06-08] VITALS (8 sets, daily range): BP systolic 80–121; BP diastolic 39–83
[2019-06-08] MEDS: OMEPRAZOLE 20 MG CAPSULE.DR GT SCH (05:35)
[2019-06-08] MEDS: METOCLOPRAMIDE HCL 10 MG TABLET GT SCH ×3 (05:35→21:08)
[2019-06-08] MEDS: POLYVINYL ALCOHOL 15 ML BOTTLE EACHEYE SCH ×3 (05:35→17:56)
[2019-06-08] MEDS: BLOOD SUGAR DIAGNOSTIC 1 EACH STRIP IN SCH ×3 (05:55→17:56)
[2019-06-08] MEDS: INSULIN ASPART/LISPRO 100 UNIT/ML CARTRIDGE SQ PRN ×3 (05:56→17:57)
[2019-06-08] MEDS: HYDROGEN PEROXIDE 480 ML BOTTLE TP SCH ×2 (09:00→21:59)
--- NOTE | 2019-06-08 09:30 | NUR ---
RT: RECEIVED PT ON MECH VENT WITH SETTINGS PER MD ORDER. GOLD LEAF LAYER DONE. SPARE TRACH AND AMBU BAG AT HEAD OF BED. ALARMS ON AND AUDIBLE. VENT PLUGGED INTO RED OUTLET. SUCTIONED SMALL AMOUNTS OF THICK, PALE YELLOW SECRETIONS. TRACH CARE DONE. AIRWAY SECURED AND PATENT. NO SIGNS OF DISTRESS NOTED AT THIS TIME. WILL CONTINUE TO MONITOR PT FOR ANY CHANGES.
[2019-06-08] MEDS: CALCITRIOL ORAL SOLUTION 1 MCG/ML GT SCH (09:41)
[2019-06-08] MEDS: LACTOBACILLUS RHAMNOSUS GG 1 EACH CAP.SPRINK GT SCH ×2 (09:41→17:56)
[2019-06-08] MEDS: SUCRALFATE 1 G/10 ML UDC GT SCH (09:41)
[2019-06-08] MEDS: NEUTRA PHOS 1 POWD.PACKET GT SCH ×2 (09:42→17:56)
[2019-06-08] MEDS: PROSOURCE / PROSTAT (PYXIS) 30 ML UDC GT SCH ×2 (09:42→17:56)
[2019-06-08] MEDS: VIT B CMPLX 3/FA/VIT C/BIOTIN 1 TAB TABLET GT SCH (09:42)
[2019-06-08] MEDS: HYDROCODONE/APAP 5/325MG 1 EACH TABLET GT SCH ×2 (09:42→21:49)
[2019-06-08] MEDS: METOPROLOL TARTRATE 50 MG TABLET GT SCH ×2 (09:42→21:00)
[2019-06-08] MEDS: ASCORBIC ACID 500 MG TABLET GT SCH (09:43)
[2019-06-08] MEDS: ZINC SULFATE 220 MG CAPSULE GT SCH (09:43)
[2019-06-08] MEDS: INSULIN GLARGINE,BASAGLAR 100 UNIT/ML INSULN.PEN SQ SCH ×2 (09:55→21:38)
--- NOTE | 2019-06-08 10:00 | NUR ---
RT ABG CANCELLED PER DR. ARRIAZA.
[2019-06-08] MEDS: POVIDONE-IODINE OINT 28.4 GM TUBE TP SCH ×4 (10:30)
[2019-06-08] MEDS: TRIAMCINOLONE ACETONIDE 0.1% CR 15 GM TUBE TP SCH ×4 (10:30→22:20)
[2019-06-08] MEDS: Z GUARD REMEDY 4 OZ OINT TP SCH ×4 (10:30→22:20)
[2019-06-08] MEDS: BETADINE 5% CREAM TP SCH (10:30)
[2019-06-08] MEDS: AMMONIUM LACTATE 227 GM BOTTLE TP SCH ×2 (10:30→22:00)
[2019-06-08] MEDS: HYDROGEL DRESSING 90 GM TUBE TP SCH ×3 (10:30→22:20)
[2019-06-08] MEDS: NYSTATIN CREAM 15 GM TUBE TP SCH ×2 (10:30→22:20)
--- NOTE | 2019-06-08 12:30 | NUR ---
Resident went out for dialysis picked up by ambulance per ari accompanied by 3 ambulance staff. Stable WNL. No s/s of resp distress. Trach secured and midline fastened with trach cloth tie. On mechanical vent. GT intact and patent. Perma cath on right upper chest intact, dressing dry. No signs of infection.
--- NOTE | 2019-06-08 17:30 | NUR ---
Came back from dialysis via ambulance per ari accompanied by 3 ambulance staff. V/S WNL. No s/s of resp distress. Trach secured and midline fastened with trach cloth tie. On mechanical vent. GT intact and patent. Perma cath on right upper chest intact, dressing dry. No signs of infection. PICC line on left upper arm intact and patent. Dressing dry and intact. Vomited x 1. Will continue to monitor.
[2019-06-08] MEDS: ONDANSETRON 4 MG TAB.RAPDIS GT PRN (18:32)
--- NOTE | 2019-06-08 19:58 | NUR ---
RCVD TRACH PT ON MECH VENT WITH NOTED SETTINGS PER MD ORDERS. TRACH IS PATENT AND SECURED. CONSULTING APPLICATION ENGINEER DONE. SX DONE PRN. VENT PLUGGED INTO RED OUTLET. ALARMS ON AND AUDIBLE. AMBU BAG @ BEDSIDE. NO RESP DISTRESS AT THIS TIME. WILL CONT TO MONITOR PT.
[2019-06-08] MEDS ORDERED: POVIDONE-IODINE OINT 28.4 GM TUBE TP SCH ×2 (21:00)
[2019-06-08] MEDS: POVIDONE IODINE 5% TP SCH ×2 (22:20)
[2019-06-09] VITALS (8 sets, daily range): BP systolic 96–136; BP diastolic 35–83
[2019-06-09] MEDS: POLYVINYL ALCOHOL 15 ML BOTTLE EACHEYE SCH ×5 (00:38→23:40)
[2019-06-09] MEDS: BLOOD SUGAR DIAGNOSTIC 1 EACH STRIP IN SCH ×5 (00:38→23:40)
[2019-06-09] MEDS: INSULIN ASPART/LISPRO 100 UNIT/ML CARTRIDGE SQ PRN ×5 (00:42→23:41)
[2019-06-09] MEDS: OMEPRAZOLE 20 MG CAPSULE.DR GT SCH (05:53)
[2019-06-09] MEDS: METOCLOPRAMIDE HCL 10 MG TABLET GT SCH ×3 (05:53→21:21)
[2019-06-09] MEDS: ZINC SULFATE 220 MG CAPSULE GT SCH (09:00)
[2019-06-09] MEDS: LACTOBACILLUS RHAMNOSUS GG 1 EACH CAP.SPRINK GT SCH ×2 (09:00→17:55)
[2019-06-09] MEDS: METOPROLOL TARTRATE 50 MG TABLET GT SCH ×2 (09:00→21:21)
[2019-06-09] MEDS: VIT B CMPLX 3/FA/VIT C/BIOTIN 1 TAB TABLET GT SCH (09:00)
[2019-06-09] MEDS: PROSOURCE / PROSTAT (PYXIS) 30 ML UDC GT SCH ×2 (09:00→17:55)
[2019-06-09] MEDS: CALCITRIOL ORAL SOLUTION 1 MCG/ML GT SCH (09:00)
[2019-06-09] MEDS: INSULIN GLARGINE,BASAGLAR 100 UNIT/ML INSULN.PEN SQ SCH ×2 (09:00→21:50)
[2019-06-09] MEDS: NEUTRA PHOS 1 POWD.PACKET GT SCH ×2 (09:00→17:55)
[2019-06-09] MEDS: HYDROGEN PEROXIDE 480 ML BOTTLE TP SCH ×2 (09:00→21:00)
[2019-06-09] MEDS: SUCRALFATE 1 G/10 ML UDC GT SCH (09:00)
[2019-06-09] MEDS: ASCORBIC ACID 500 MG TABLET GT SCH (09:00)
[2019-06-09] MEDS: HYDROCODONE/APAP 5/325MG 1 EACH TABLET GT SCH ×2 (10:00→21:21)
[2019-06-09] MEDS: BETADINE 5% CREAM TP SCH (10:30)
[2019-06-09] MEDS: KETOCONAZOLE SHAMPOO 120 ML BOTTLE TP SCH (10:30)
[2019-06-09] MEDS: POVIDONE IODINE 5% TP SCH ×4 (10:30→21:50)
[2019-06-09] MEDS: Z GUARD REMEDY 4 OZ OINT TP SCH ×4 (10:30→21:51)
[2019-06-09] MEDS: AMMONIUM LACTATE 227 GM BOTTLE TP SCH ×2 (10:30→21:50)
[2019-06-09] MEDS: HYDROGEL DRESSING 90 GM TUBE TP SCH ×2 (10:30→21:50)
[2019-06-09] MEDS: NYSTATIN CREAM 15 GM TUBE TP SCH ×2 (10:30→21:50)
[2019-06-09] MEDS: TRIAMCINOLONE ACETONIDE 0.1% CR 15 GM TUBE TP SCH ×4 (10:30→21:50)
--- NOTE | 2019-06-09 16:10 | NUR ---
PATIENT RECEIVED TRACHED ON [facility] VENT WITH ORDERED SETTINGS. ADVERTISING SOLICITOR DONE. SPARE TRACH AND AMBU BAG AT HEAD OF BED. ALARMS ARE ON AND AUDIBLE. VENT PLUGGED INTO RED OUTLET. TX GIVEN ORDERED. NO ADVERSE REACTIONS OBSERVED. SUCTIONED MODERATE AMOUNTS OF THICK, PALE YELLOW SECRETIONS. TRACH CARE DONE. AIRWAY SECURED AND PATENT. NO SOB NOTED. SPO2 MAINTAINED AT > 92%. Addendum: 06/09/19 at 1611 by LAYLA PENA RT Amended: Links added.
--- NOTE | 2019-06-09 22:24 | NUR ---
Spoke to daughter Christine and she's giving consent for FLU Vaccine when available.
[2019-06-10] VITALS (7 sets, daily range): BP systolic 90–139; BP diastolic 25–85
--- NOTE | 2019-06-10 05:16 | NUR ---
Pt rec'd trached on [facility] vent on AC mode. no resp distress or sob noted. trach patent and secured. alarms are set and audible. vent plugged into red outlet. ambu bag bedside. will continue to monitor. Addendum: 06/10/19 at 0517 by MANISH DOMINGUEZ RT Amended: Links added.
[2019-06-10] MEDS: OMEPRAZOLE 20 MG CAPSULE.DR GT SCH (05:41)
[2019-06-10] MEDS: POLYVINYL ALCOHOL 15 ML BOTTLE EACHEYE SCH ×4 (05:41→23:35)
[2019-06-10] MEDS: NEPRO 1,000 ML BOTTLE GT PRN (05:41)
[2019-06-10] MEDS: METOCLOPRAMIDE HCL 10 MG TABLET GT SCH ×3 (05:41→21:28)
[2019-06-10] MEDS: BLOOD SUGAR DIAGNOSTIC 1 EACH STRIP IN SCH ×4 (06:05→23:35)
[2019-06-10] MEDS: INSULIN ASPART/LISPRO 100 UNIT/ML CARTRIDGE SQ PRN ×4 (06:06→23:37)
[2019-06-10] MEDS: VIT B CMPLX 3/FA/VIT C/BIOTIN 1 TAB TABLET GT SCH (09:00)
[2019-06-10] MEDS: NEUTRA PHOS 1 POWD.PACKET GT SCH ×2 (09:00→17:36)
[2019-06-10] MEDS: PROSOURCE / PROSTAT (PYXIS) 30 ML UDC GT SCH ×2 (09:00→17:36)
[2019-06-10] MEDS: LACTOBACILLUS RHAMNOSUS GG 1 EACH CAP.SPRINK GT SCH ×2 (09:00→17:36)
[2019-06-10] MEDS: ZINC SULFATE 220 MG CAPSULE GT SCH (09:00)
[2019-06-10] MEDS: ASCORBIC ACID 500 MG TABLET GT SCH (09:00)
[2019-06-10] MEDS: INSULIN GLARGINE,BASAGLAR 100 UNIT/ML INSULN.PEN SQ SCH ×2 (09:00→21:28)
[2019-06-10] MEDS: HYDROGEN PEROXIDE 480 ML BOTTLE TP SCH ×2 (09:00→21:00)
[2019-06-10] MEDS: METOPROLOL TARTRATE 50 MG TABLET GT SCH ×2 (09:00→21:28)
[2019-06-10] MEDS: CALCITRIOL ORAL SOLUTION 1 MCG/ML GT SCH (09:00)
[2019-06-10] MEDS: SUCRALFATE 1 G/10 ML UDC GT SCH (09:00)
[2019-06-10] MEDS: HYDROCODONE/APAP 5/325MG 1 EACH TABLET GT SCH ×2 (10:15→21:28)
[2019-06-10] MEDS: BETADINE 5% CREAM TP SCH (10:45)
[2019-06-10] MEDS: AMMONIUM LACTATE 227 GM BOTTLE TP SCH ×2 (10:45→21:29)
[2019-06-10] MEDS: NYSTATIN CREAM 15 GM TUBE TP SCH ×2 (10:45→22:00)
[2019-06-10] MEDS: Z GUARD REMEDY 4 OZ OINT TP SCH ×4 (10:45→21:30)
[2019-06-10] MEDS: TRIAMCINOLONE ACETONIDE 0.1% CR 15 GM TUBE TP SCH ×4 (10:45→21:29)
[2019-06-10] MEDS: POVIDONE IODINE 5% TP SCH ×4 (10:45→21:30)
[2019-06-10] MEDS: HYDROGEL DRESSING 90 GM TUBE TP SCH ×2 (10:45→22:00)
--- NOTE | 2019-06-10 15:22 | NUR ---
INTERDISCIPLINARY PLAN OF CARE CONFERENCE was held today. The patients daughters Adrienne and Christine and , Janet [phone] were not available for phone conference. SW left Christine a voicemail. Dr. Rocha and interdisciplinary team discussed the current plan of care in detail. Charge NurseLilly discussed SIMV order for 06/13/19, sacral wound, dialysis, nausea and nausea medication. Current orders as well as treatments and medications were reviewed. See other disciplines note for further details.
[2019-06-11] VITALS (8 sets, daily range): BP systolic 101–140; BP diastolic 45–75
--- NOTE | 2019-06-11 03:12 | NUR ---
Pt rec'd trached on [facility] vent on AC mode. no resp distress or sob noted. trach patent and secured. alarms are set and audible. vent plugged into red outlet. ambu bag bedside. will continue to monitor. Addendum: 06/11/19 at 0313 by MANISH DOMINGUEZ RT Amended: Links added.
[2019-06-11] MEDS: BLOOD SUGAR DIAGNOSTIC 1 EACH STRIP IN SCH ×3 (05:34→17:12)
[2019-06-11] MEDS: METOCLOPRAMIDE HCL 10 MG TABLET GT SCH ×3 (05:34→20:53)
[2019-06-11] MEDS: OMEPRAZOLE 20 MG CAPSULE.DR GT SCH (05:34)
[2019-06-11] MEDS: POLYVINYL ALCOHOL 15 ML BOTTLE EACHEYE SCH ×3 (05:34→17:12)
[2019-06-11] MEDS: INSULIN ASPART/LISPRO 100 UNIT/ML CARTRIDGE SQ PRN ×3 (05:36→17:12)
[2019-06-11] MEDS: NEPRO 1,000 ML BOTTLE GT PRN (06:30)
[2019-06-11] MEDS: ONDANSETRON 4 MG TAB.RAPDIS GT PRN (06:31)
[2019-06-11] MEDS: PROSOURCE / PROSTAT (PYXIS) 30 ML UDC GT SCH ×2 (09:00→17:12)
[2019-06-11] MEDS: VIT B CMPLX 3/FA/VIT C/BIOTIN 1 TAB TABLET GT SCH (09:00)
[2019-06-11] MEDS: ZINC SULFATE 220 MG CAPSULE GT SCH (09:00)
[2019-06-11] MEDS: ASCORBIC ACID 500 MG TABLET GT SCH (09:00)
[2019-06-11] MEDS: NEUTRA PHOS 1 POWD.PACKET GT SCH ×2 (09:00→17:12)
[2019-06-11] MEDS: METOPROLOL TARTRATE 50 MG TABLET GT SCH ×2 (09:00→20:53)
[2019-06-11] MEDS: HYDROGEN PEROXIDE 480 ML BOTTLE TP SCH ×2 (09:00→21:00)
[2019-06-11] MEDS: INSULIN GLARGINE,BASAGLAR 100 UNIT/ML INSULN.PEN SQ SCH ×2 (09:00→21:07)
[2019-06-11] MEDS: CALCITRIOL ORAL SOLUTION 1 MCG/ML GT SCH (09:59)
[2019-06-11] MEDS: SUCRALFATE 1 G/10 ML UDC GT SCH (09:59)
[2019-06-11] MEDS: LACTOBACILLUS RHAMNOSUS GG 1 EACH CAP.SPRINK GT SCH ×2 (10:00→17:12)
[2019-06-11] MEDS: HYDROCODONE/APAP 5/325MG 1 EACH TABLET GT SCH ×2 (10:00→21:41)
[2019-06-11] MEDS: TRIAMCINOLONE ACETONIDE 0.1% CR 15 GM TUBE TP SCH ×4 (10:30→22:15)
[2019-06-11] MEDS: AMMONIUM LACTATE 227 GM BOTTLE TP SCH ×2 (10:30→22:15)
[2019-06-11] MEDS: HYDROGEL DRESSING 90 GM TUBE TP SCH ×2 (10:30→22:15)
[2019-06-11] MEDS: Z GUARD REMEDY 4 OZ OINT TP SCH ×4 (10:30→22:15)
[2019-06-11] MEDS: POVIDONE IODINE 5% TP SCH ×4 (10:30→22:15)
[2019-06-11] MEDS: NYSTATIN CREAM 15 GM TUBE TP SCH ×2 (10:30→22:15)
[2019-06-11] MEDS: BETADINE 5% CREAM TP SCH (10:30)
[2019-06-12] VITALS (7 sets, daily range): BP systolic 95–123; BP diastolic 45–77
[2019-06-12] MEDS: BLOOD SUGAR DIAGNOSTIC 1 EACH STRIP IN SCH ×4 (00:55→18:04)
[2019-06-12] MEDS: POLYVINYL ALCOHOL 15 ML BOTTLE EACHEYE SCH ×4 (01:00→18:04)
[2019-06-12] MEDS: NEPRO 1,000 ML BOTTLE GT PRN (01:01)
[2019-06-12] MEDS: INSULIN ASPART/LISPRO 100 UNIT/ML CARTRIDGE SQ PRN ×4 (01:06→18:05)
[2019-06-12] MEDS: METOCLOPRAMIDE HCL 10 MG TABLET GT SCH ×3 (05:50→21:21)
[2019-06-12] MEDS: OMEPRAZOLE 20 MG CAPSULE.DR GT SCH (05:51)
[2019-06-12] MEDS: Z GUARD REMEDY 4 OZ OINT TP SCH ×4 (09:00→21:23)
[2019-06-12] MEDS: POVIDONE IODINE 5% TP SCH ×4 (09:00→21:22)
[2019-06-12] MEDS: INSULIN GLARGINE,BASAGLAR 100 UNIT/ML INSULN.PEN SQ SCH ×2 (09:00→21:22)
[2019-06-12] MEDS: HYDROGEN PEROXIDE 480 ML BOTTLE TP SCH ×2 (09:00→21:22)
[2019-06-12] MEDS: METOPROLOL TARTRATE 50 MG TABLET GT SCH ×2 (09:00→21:00)
[2019-06-12] MEDS: ZINC SULFATE 220 MG CAPSULE GT SCH (09:00)
[2019-06-12] MEDS: BETADINE 5% CREAM TP SCH (09:00)
[2019-06-12] MEDS: ASCORBIC ACID 500 MG TABLET GT SCH (09:00)
[2019-06-12] MEDS: HYDROGEL DRESSING 90 GM TUBE TP SCH ×2 (09:00→21:22)
[2019-06-12] MEDS: TRIAMCINOLONE ACETONIDE 0.1% CR 15 GM TUBE TP SCH ×4 (09:00→21:22)
[2019-06-12] MEDS: NYSTATIN CREAM 15 GM TUBE TP SCH ×2 (09:00→21:22)
[2019-06-12] MEDS: AMMONIUM LACTATE 227 GM BOTTLE TP SCH ×2 (09:00→21:22)
[2019-06-12] MEDS: PROSOURCE / PROSTAT (PYXIS) 30 ML UDC GT SCH ×2 (09:00→17:00)
[2019-06-12] MEDS: NEUTRA PHOS 1 POWD.PACKET GT SCH ×2 (09:00→17:00)
[2019-06-12] MEDS: HYDROCODONE/APAP 5/325MG 1 EACH TABLET GT SCH ×2 (09:00→21:20)
[2019-06-12] MEDS: VIT B CMPLX 3/FA/VIT C/BIOTIN 1 TAB TABLET GT SCH (09:00)
[2019-06-12] MEDS: CALCITRIOL ORAL SOLUTION 1 MCG/ML GT SCH (09:59)
[2019-06-12] MEDS: LACTOBACILLUS RHAMNOSUS GG 1 EACH CAP.SPRINK GT SCH ×2 (09:59→17:00)
[2019-06-12] MEDS: SUCRALFATE 1 G/10 ML UDC GT SCH (09:59)
--- NOTE | 2019-06-12 22:09 | NUR ---
RT NOTES TRACH TUBE IN PLACE, PATENT, AND SECURED WITH TRACH TIE. ALARMS ON AND AUDIBLE. VENT PLUGGED IN TO THE RED OUTLET. BACK UP TRACH AND AMBU BAG BY THE BEDSIDE. NO SIGNS OF ANY DISTRESS AT THIS TIME. Addendum: 06/12/19 at 2210 by ONEL VEGA RT Amended: Links added.
[2019-06-13] VITALS (7 sets, daily range): BP systolic 104–135; BP diastolic 34–82
[2019-06-13] MEDS: POLYVINYL ALCOHOL 15 ML BOTTLE EACHEYE SCH ×5 (00:17→23:03)
[2019-06-13] MEDS: BLOOD SUGAR DIAGNOSTIC 1 EACH STRIP IN SCH ×5 (00:17→23:03)
[2019-06-13] MEDS: INSULIN ASPART/LISPRO 100 UNIT/ML CARTRIDGE SQ PRN ×5 (00:18→23:04)
[2019-06-13] MEDS: OMEPRAZOLE 20 MG CAPSULE.DR GT SCH (05:39)
[2019-06-13] MEDS: METOCLOPRAMIDE HCL 10 MG TABLET GT SCH ×3 (05:39→21:28)
[2019-06-13] MEDS: SUCRALFATE 1 G/10 ML UDC GT SCH (08:36)
[2019-06-13] MEDS: METOPROLOL TARTRATE 50 MG TABLET GT SCH ×2 (08:36→21:28)
[2019-06-13] MEDS: CALCITRIOL ORAL SOLUTION 1 MCG/ML GT SCH (08:36)
[2019-06-13] MEDS: VIT B CMPLX 3/FA/VIT C/BIOTIN 1 TAB TABLET GT SCH (08:36)
[2019-06-13] MEDS: LACTOBACILLUS RHAMNOSUS GG 1 EACH CAP.SPRINK GT SCH ×2 (08:36→17:14)
[2019-06-13] MEDS: PROSOURCE / PROSTAT (PYXIS) 30 ML UDC GT SCH ×2 (08:37→17:14)
[2019-06-13] MEDS: ASCORBIC ACID 500 MG TABLET GT SCH (08:37)
[2019-06-13] MEDS: HYDROCODONE/APAP 5/325MG 1 EACH TABLET GT SCH ×2 (08:37→21:28)
[2019-06-13] MEDS: ZINC SULFATE 220 MG CAPSULE GT SCH (08:37)
[2019-06-13] MEDS: NEUTRA PHOS 1 POWD.PACKET GT SCH ×2 (08:37→17:14)
[2019-06-13] MEDS: INSULIN GLARGINE,BASAGLAR 100 UNIT/ML INSULN.PEN SQ SCH ×2 (08:38→21:29)
[2019-06-13] MEDS: HYDROGEN PEROXIDE 480 ML BOTTLE TP SCH ×2 (09:00→21:00)
--- NOTE | 2019-06-13 09:00 | NUR ---
RT PLACED PT ON SIMV 4 PS 15 +5 PER MD ORDERS PT WENT APNEIC DID NOT TOLERATE PLACE BACK ON AC MODE INFORMED CHARGE NURSE Addendum: 06/13/19 at 1548 by LOLLY FRY RT Amended: Links added.
[2019-06-13] MEDS: TRIAMCINOLONE ACETONIDE 0.1% CR 15 GM TUBE TP SCH ×4 (09:23→21:29)
[2019-06-13] MEDS: POVIDONE IODINE 5% TP SCH ×4 (09:23→21:30)
[2019-06-13] MEDS: NYSTATIN CREAM 15 GM TUBE TP SCH ×2 (09:23→21:29)
[2019-06-13] MEDS: HYDROGEL DRESSING 90 GM TUBE TP SCH ×2 (09:23→21:29)
[2019-06-13] MEDS: AMMONIUM LACTATE 227 GM BOTTLE TP SCH ×2 (09:23→21:29)
[2019-06-13] MEDS: Z GUARD REMEDY 4 OZ OINT TP SCH ×4 (09:24→21:30)
[2019-06-13] MEDS: BETADINE 5% CREAM TP SCH (09:24)
--- NOTE | 2019-06-13 11:15 | NUR ---
According to RT Ortega, pt did not tolerated weaning trial. She said pt was not breathing on his own at all. ABG was not done. Notified Dr Rocha. No new order.
--- NOTE | 2019-06-13 11:59 | NUR ---
Notified pt's daughter that pt did not tolerated weaning trial.
--- NOTE | 2019-06-13 17:30 | NUR ---
RT Family wants rt to try weaning again tomorrow & days he doesn't have dialysis Addendum: 06/13/19 at 1800 by LOLLY FRY RT Amended: Links added.
[2019-06-14] VITALS (8 sets, daily range): BP systolic 91–129; BP diastolic 46–69
[2019-06-14] MEDS: METOCLOPRAMIDE HCL 10 MG TABLET GT SCH ×3 (05:56→21:30)
[2019-06-14] MEDS: OMEPRAZOLE 20 MG CAPSULE.DR GT SCH (05:57)
[2019-06-14] MEDS: POLYVINYL ALCOHOL 15 ML BOTTLE EACHEYE SCH ×4 (05:57→23:54)
[2019-06-14] MEDS: BLOOD SUGAR DIAGNOSTIC 1 EACH STRIP IN SCH ×4 (05:57→23:54)
[2019-06-14] MEDS: INSULIN ASPART/LISPRO 100 UNIT/ML CARTRIDGE SQ PRN ×4 (05:57→23:55)
[2019-06-14] MEDS: HYDROGEL DRESSING 90 GM TUBE TP SCH ×2 (09:00→21:32)
[2019-06-14] MEDS: POVIDONE IODINE 5% TP SCH ×4 (09:00→21:32)
[2019-06-14] MEDS: NYSTATIN CREAM 15 GM TUBE TP SCH ×2 (09:00→21:32)
[2019-06-14] MEDS: BETADINE 5% CREAM TP SCH (09:00)
[2019-06-14] MEDS: TRIAMCINOLONE ACETONIDE 0.1% CR 15 GM TUBE TP SCH ×4 (09:00→21:32)
[2019-06-14] MEDS: HYDROGEN PEROXIDE 480 ML BOTTLE TP SCH ×2 (09:00→21:32)
[2019-06-14] MEDS: Z GUARD REMEDY 4 OZ OINT TP SCH ×4 (09:00→21:32)
[2019-06-14] MEDS: AMMONIUM LACTATE 227 GM BOTTLE TP SCH ×2 (09:00→21:32)
[2019-06-14] MEDS: CALCITRIOL ORAL SOLUTION 1 MCG/ML GT SCH (09:15)
[2019-06-14] MEDS: VIT B CMPLX 3/FA/VIT C/BIOTIN 1 TAB TABLET GT SCH (09:15)
[2019-06-14] MEDS: SUCRALFATE 1 G/10 ML UDC GT SCH (09:15)
[2019-06-14] MEDS: METOPROLOL TARTRATE 50 MG TABLET GT SCH ×2 (09:15→21:00)
[2019-06-14] MEDS: LACTOBACILLUS RHAMNOSUS GG 1 EACH CAP.SPRINK GT SCH ×2 (09:15→17:58)
[2019-06-14] MEDS: HYDROCODONE/APAP 5/325MG 1 EACH TABLET GT SCH ×2 (09:16→21:30)
[2019-06-14] MEDS: PROSOURCE / PROSTAT (PYXIS) 30 ML UDC GT SCH ×2 (09:16→17:58)
[2019-06-14] MEDS: ZINC SULFATE 220 MG CAPSULE GT SCH (09:16)
[2019-06-14] MEDS: NEUTRA PHOS 1 POWD.PACKET GT SCH ×2 (09:16→17:58)
[2019-06-14] MEDS: ASCORBIC ACID 500 MG TABLET GT SCH (09:16)
[2019-06-14] MEDS: INSULIN GLARGINE,BASAGLAR 100 UNIT/ML INSULN.PEN SQ SCH ×2 (09:18→21:31)
[2019-06-14] MEDS: MECLIZINE HCL 12.5 MG TABLET GT PRN (11:43)
[2019-06-14] MEDS: NEPRO 1,000 ML BOTTLE GT PRN (14:05)
--- NOTE | 2019-06-14 15:15 | NUR ---
RT TRIED WEANING PT AGAIN SIMV 4 PS15 +5, PT GOES APNEIC INFORMED CHARGE NURSE Addendum: 06/14/19 at 1518 by LOLLY FRY RT Amended: Links added.
[2019-06-15] VITALS (8 sets, daily range): BP systolic 90–132; BP diastolic 54–63
[2019-06-15] MEDS: BLOOD SUGAR DIAGNOSTIC 1 EACH STRIP IN SCH ×3 (05:55→17:19)
[2019-06-15] MEDS: METOCLOPRAMIDE HCL 10 MG TABLET GT SCH ×3 (05:55→21:59)
[2019-06-15] MEDS: OMEPRAZOLE 20 MG CAPSULE.DR GT SCH (05:55)
[2019-06-15] MEDS: POLYVINYL ALCOHOL 15 ML BOTTLE EACHEYE SCH ×3 (05:55→17:19)
[2019-06-15] MEDS: INSULIN ASPART/LISPRO 100 UNIT/ML CARTRIDGE SQ PRN ×3 (05:56→17:21)
--- NOTE | 2019-06-15 08:00 | NUR ---
RT PT RECEIVED TRACH'D ON [facility] VENT WITH SETTINGS PER MD. CHECKER LOADER DONE. SPARE TRACH AND AMBU BAG AT HEAD OF BED. ALARMS ON AND FUNCTIONING PROPERLY. VENT PLUGGED INTO RED OUTLET. SUCTIONED SMALL AMOUNTS OF THICK, PALE YELLOW SECRETIONS. TRACH CARE DONE. NO SOB OR SIGNS OF DISTRESS NOTED. WILL CONTINUE TO MONITOR FOR ANY CHANGES. Addendum: 06/15/19 at 1711 by MAURICE ROCK RT Amended: Links added.
[2019-06-15] MEDS: CALCITRIOL ORAL SOLUTION 1 MCG/ML GT SCH (08:49)
[2019-06-15] MEDS: SUCRALFATE 1 G/10 ML UDC GT SCH (08:49)
[2019-06-15] MEDS: LACTOBACILLUS RHAMNOSUS GG 1 EACH CAP.SPRINK GT SCH ×2 (08:49→17:19)
[2019-06-15] MEDS: PROSOURCE / PROSTAT (PYXIS) 30 ML UDC GT SCH ×2 (08:50→17:19)
[2019-06-15] MEDS: NEUTRA PHOS 1 POWD.PACKET GT SCH ×2 (08:50→17:19)
[2019-06-15] MEDS: METOPROLOL TARTRATE 50 MG TABLET GT SCH ×2 (08:50→21:59)
[2019-06-15] MEDS: HYDROCODONE/APAP 5/325MG 1 EACH TABLET GT SCH ×2 (08:50→21:32)
[2019-06-15] MEDS: VIT B CMPLX 3/FA/VIT C/BIOTIN 1 TAB TABLET GT SCH (08:50)
[2019-06-15] MEDS: ASCORBIC ACID 500 MG TABLET GT SCH (08:51)
[2019-06-15] MEDS: ZINC SULFATE 220 MG CAPSULE GT SCH (08:51)
[2019-06-15] MEDS: INSULIN GLARGINE,BASAGLAR 100 UNIT/ML INSULN.PEN SQ SCH ×2 (08:51→21:59)
[2019-06-15] MEDS: HYDROGEN PEROXIDE 480 ML BOTTLE TP SCH ×2 (09:00→21:00)
[2019-06-15] MEDS: BETADINE 5% CREAM TP SCH (09:50)
[2019-06-15] MEDS: NYSTATIN CREAM 15 GM TUBE TP SCH ×2 (09:50→21:59)
[2019-06-15] MEDS: AMMONIUM LACTATE 227 GM BOTTLE TP SCH ×2 (09:50→21:59)
[2019-06-15] MEDS: Z GUARD REMEDY 4 OZ OINT TP SCH ×4 (09:50→21:59)
[2019-06-15] MEDS: TRIAMCINOLONE ACETONIDE 0.1% CR 15 GM TUBE TP SCH ×4 (09:50→21:59)
[2019-06-15] MEDS: HYDROGEL DRESSING 90 GM TUBE TP SCH ×2 (09:50→21:59)
[2019-06-15] MEDS: POVIDONE IODINE 5% TP SCH ×4 (09:50→21:59)
--- NOTE | 2019-06-15 12:30 | NUR ---
Eyes open. Trach with vent working at prescribed settings. GT in place patent no residual. All medications given as ordered. Topical treatment done as ordered. Patient went for hemodialysis as ordered with two hearing aid dispenser and one RT. Report given. Transportation ambulance with ari. Right upper chest hemodialysis catheter with clean dressing. No s/s of complications.
--- NOTE | 2019-06-15 16:30 | NUR ---
Eyes open. Trach with vent working at prescribed settings. Right upper chest hemodialysis catheter with clean dressing. GT in place patent. No residual. Total care provided. Patient returned from hemodialysis with two EMT's and one RT. Transportation Ambulance and gurney. Kept clean and comfortable. Turned and repositioned.
[2019-06-15] MEDS: NEPRO 1,000 ML BOTTLE GT PRN (17:07)
[2019-06-15] MEDS: SIMETHICONE SUSP 40 MG/0.6 ML BOTTLE PO PRN (17:27)
--- NOTE | 2019-06-15 19:58 | NUR ---
RT NOTE PT RECEIVED TRACHED ON [facility] VENT ON CHARTED SETTINGS. NO SIGNS OF RESP DISTRESS/SOB NOTED AT THIS TIME. AIRWAY PATENT AND SECURED. NETTING WEAVER DONE. PT SUCTIONED. ALARMS SET AND AUDIBLE. AMBUBAG AND SPARE TRACH AT HEAD OF BED. WILL CONT TO MONITOR. Addendum: 06/16/19 at 0311 by CARLOS YEH RT Amended: Links added.
[2019-06-16] VITALS (7 sets, daily range): BP systolic 100–122; BP diastolic 44–76
[2019-06-16] MEDS: INSULIN ASPART/LISPRO 100 UNIT/ML CARTRIDGE SQ PRN ×5 (00:01→23:30)
[2019-06-16] MEDS: BLOOD SUGAR DIAGNOSTIC 1 EACH STRIP IN SCH ×5 (05:51→23:29)
[2019-06-16] MEDS: POLYVINYL ALCOHOL 15 ML BOTTLE EACHEYE SCH ×5 (05:51→23:29)
[2019-06-16] MEDS: OMEPRAZOLE 20 MG CAPSULE.DR GT SCH (05:51)
[2019-06-16] MEDS: METOCLOPRAMIDE HCL 10 MG TABLET GT SCH ×3 (05:51→21:15)
[2019-06-16] MEDS: KETOCONAZOLE SHAMPOO 120 ML BOTTLE TP SCH (09:00)
[2019-06-16] MEDS: METOPROLOL TARTRATE 50 MG TABLET GT SCH ×2 (09:00→21:00)
[2019-06-16] MEDS: POVIDONE IODINE 5% TP SCH ×4 (09:00→21:16)
[2019-06-16] MEDS: TRIAMCINOLONE ACETONIDE 0.1% CR 15 GM TUBE TP SCH ×4 (09:00→21:15)
[2019-06-16] MEDS: Z GUARD REMEDY 4 OZ OINT TP SCH ×4 (09:00→21:16)
[2019-06-16] MEDS: AMMONIUM LACTATE 227 GM BOTTLE TP SCH ×2 (09:00→21:16)
[2019-06-16] MEDS: HYDROGEL DRESSING 90 GM TUBE TP SCH ×2 (09:00→21:16)
[2019-06-16] MEDS: NYSTATIN CREAM 15 GM TUBE TP SCH ×2 (09:00→21:16)
[2019-06-16] MEDS: BETADINE 5% CREAM TP SCH (09:00)
[2019-06-16] MEDS: CALCITRIOL ORAL SOLUTION 1 MCG/ML GT SCH (09:13)
[2019-06-16] MEDS: NEUTRA PHOS 1 POWD.PACKET GT SCH (09:13)
[2019-06-16] MEDS: SUCRALFATE 1 G/10 ML UDC GT SCH (09:13)
[2019-06-16] MEDS: LACTOBACILLUS RHAMNOSUS GG 1 EACH CAP.SPRINK GT SCH ×2 (09:13→16:34)
[2019-06-16] MEDS: VIT B CMPLX 3/FA/VIT C/BIOTIN 1 TAB TABLET GT SCH (09:13)
[2019-06-16] MEDS: PROSOURCE / PROSTAT (PYXIS) 30 ML UDC GT SCH ×2 (09:14→16:34)
[2019-06-16] MEDS: ASCORBIC ACID 500 MG TABLET GT SCH (09:14)
[2019-06-16] MEDS: ZINC SULFATE 220 MG CAPSULE GT SCH (09:14)
[2019-06-16] MEDS: HYDROCODONE/APAP 5/325MG 1 EACH TABLET GT SCH ×2 (09:14→21:15)
[2019-06-16] MEDS: INSULIN GLARGINE,BASAGLAR 100 UNIT/ML INSULN.PEN SQ SCH ×2 (09:22→21:15)
[2019-06-16] MEDS: HYDROGEN PEROXIDE 480 ML BOTTLE TP SCH ×2 (09:29→21:16)
[2019-06-16] MEDS: NEPRO 1,000 ML BOTTLE GT PRN (16:37)
--- NOTE | 2019-06-16 23:32 | NUR ---
Pt rec'd trached on [facility] vent on AC mode. No resp distress or sob noted. Trach is patent and secured. Sx'd for mod amt of thick pale yellow secretions. Alarms are set and audible. Vent plugged into red outlet. Ambu bag bedside. Will continue to monitor. Addendum: 06/16/19 at 2332 by MANISH DOMINGUEZ RT Amended: Links added.
[2019-06-17] VITALS (7 sets, daily range): BP systolic 99–146; BP diastolic 31–63
[2019-06-17] MEDS: METOCLOPRAMIDE HCL 10 MG TABLET GT SCH ×3 (05:26→20:44)
[2019-06-17] MEDS: POLYVINYL ALCOHOL 15 ML BOTTLE EACHEYE SCH ×3 (05:26→18:35)
[2019-06-17] MEDS: OMEPRAZOLE 20 MG CAPSULE.DR GT SCH (05:26)
[2019-06-17] MEDS: BLOOD SUGAR DIAGNOSTIC 1 EACH STRIP IN SCH ×3 (05:31→18:35)
[2019-06-17] MEDS: INSULIN ASPART/LISPRO 100 UNIT/ML CARTRIDGE SQ PRN ×3 (05:32→18:36)
[2019-06-17] MEDS: HYDROGEN PEROXIDE 480 ML BOTTLE TP SCH ×2 (09:00→20:45)
[2019-06-17] MEDS: METOPROLOL TARTRATE 50 MG TABLET GT SCH ×2 (09:00→20:44)
--- NOTE | 2019-06-17 09:20 | NUR ---
Seen and examined by Dr. Milena Sotelo, coordinator of online programs, NNO given.
[2019-06-17] MEDS: VIT B CMPLX 3/FA/VIT C/BIOTIN 1 TAB TABLET GT SCH (09:34)
[2019-06-17] MEDS: CALCITRIOL ORAL SOLUTION 1 MCG/ML GT SCH (09:34)
[2019-06-17] MEDS: SUCRALFATE 1 G/10 ML UDC GT SCH (09:34)
[2019-06-17] MEDS: LACTOBACILLUS RHAMNOSUS GG 1 EACH CAP.SPRINK GT SCH ×2 (09:34→17:51)
[2019-06-17] MEDS: PROSOURCE / PROSTAT (PYXIS) 30 ML UDC GT SCH ×2 (09:35→17:51)
[2019-06-17] MEDS: NEUTRA PHOS 1 POWD.PACKET GT SCH (09:35)
[2019-06-17] MEDS: HYDROCODONE/APAP 5/325MG 1 EACH TABLET GT SCH ×2 (09:35→20:44)
[2019-06-17] MEDS: ASCORBIC ACID 500 MG TABLET GT SCH (09:35)
[2019-06-17] MEDS: ZINC SULFATE 220 MG CAPSULE GT SCH (09:35)
[2019-06-17] MEDS: INSULIN GLARGINE,BASAGLAR 100 UNIT/ML INSULN.PEN SQ SCH ×2 (09:53→20:45)
[2019-06-17] MEDS: POVIDONE IODINE 5% TP SCH ×4 (10:10→20:46)
[2019-06-17] MEDS: Z GUARD REMEDY 4 OZ OINT TP SCH ×4 (10:10→20:46)
[2019-06-17] MEDS: NYSTATIN CREAM 15 GM TUBE TP SCH ×2 (10:10→20:46)
[2019-06-17] MEDS: HYDROGEL DRESSING 90 GM TUBE TP SCH ×2 (10:10→20:45)
[2019-06-17] MEDS: BETADINE 5% CREAM TP SCH (10:10)
[2019-06-17] MEDS: TRIAMCINOLONE ACETONIDE 0.1% CR 15 GM TUBE TP SCH ×4 (10:10→20:45)
[2019-06-17] MEDS: AMMONIUM LACTATE 227 GM BOTTLE TP SCH ×2 (10:12→20:45)
--- NOTE | 2019-06-17 12:30 | NUR ---
Dr. Rocha notified of patient's HR ranging between 110-115, asked MD if patient's vent setting has an effect on patient's HR. Dr. Rocha said no, new order given to give IVF of NS, 500 cc x [address]. [address] Rocha that patient will go to dialysis at this time and will not be able to give IVF over 2 hours. He said to schedule patient's dialysis tomorrow because, according to Dr. Rocha dialysis will not take him with elevated HR and will even go higher during dialysis and he will end up in ER. [facility] notified, spoke with Ryan and reschedule dialysis for tomorrow with chair time of 1230. Transportation arranged with [employer] c/o [facility].
--- NOTE | 2019-06-17 16:14 | NUR ---
RADHA called [facility] [phone] and spoke to Donna to verify that the patient's transportation to [facility] for M,W,F, 12:15 pickle water pump operator is still active. Donna confirmed that is it still active, Charge Nurse notified.
[2019-06-17] MEDS ORDERED: IV NS 0.9% 500 ML IV ONE (17:00)
[2019-06-17] MEDS: NEPRO 1,000 ML BOTTLE GT PRN (17:52)
[2019-06-17] MEDS: ONDANSETRON 4 MG TAB.RAPDIS GT PRN (17:54)
--- NOTE | 2019-06-17 18:11 | NUR ---
Resident's IVF NS started at 1400, administered 500 ml x 2 hours, current HR 106-107, B/P 146/48.
--- NOTE | 2019-06-17 20:00 | NUR ---
PATIENT FAMILY MEMBER CALLED, ALESHA. CHARGE NURSE INFORMED HER THAT HER FATHER DIDN'T GET TO GO TO DIALYSIS TODAY AND INFORMED HER ALSO THAT HER FATHER'S OQ=[id number] AND THAT DR ORDERED FLUIDS. SHE VERBALIZED UNDERSTANDING.
[2019-06-18] VITALS (7 sets, daily range): BP systolic 120–149; BP diastolic 57–89
[2019-06-18] MEDS: POLYVINYL ALCOHOL 15 ML BOTTLE EACHEYE SCH ×5 (00:09→23:13)
[2019-06-18] MEDS: BLOOD SUGAR DIAGNOSTIC 1 EACH STRIP IN SCH ×5 (00:09→23:13)
[2019-06-18] MEDS: INSULIN ASPART/LISPRO 100 UNIT/ML CARTRIDGE SQ PRN ×5 (00:10→23:14)
[2019-06-18] MEDS: OMEPRAZOLE 20 MG CAPSULE.DR GT SCH (05:25)
[2019-06-18] MEDS: METOCLOPRAMIDE HCL 10 MG TABLET GT SCH ×3 (05:25→20:50)
--- NOTE | 2019-06-18 06:41 | NUR ---
PATIENT'S HR REMAINED IN 107-111BPM. PATIENT IS ASLEEP NO RESPIRATORY DISTRESS NOTED. WILL INFORMED ENDORSE TO UPCOMING NURSE.
[2019-06-18] MEDS: HYDROGEN PEROXIDE 480 ML BOTTLE TP SCH ×2 (09:00→20:50)
[2019-06-18] MEDS: HYDROCODONE/APAP 5/325MG 1 EACH TABLET GT SCH ×2 (09:02→20:50)
[2019-06-18] MEDS: CALCITRIOL ORAL SOLUTION 1 MCG/ML GT SCH (09:02)
[2019-06-18] MEDS: SUCRALFATE 1 G/10 ML UDC GT SCH (09:02)
[2019-06-18] MEDS: LACTOBACILLUS RHAMNOSUS GG 1 EACH CAP.SPRINK GT SCH ×2 (09:02→18:00)
[2019-06-18] MEDS: VIT B CMPLX 3/FA/VIT C/BIOTIN 1 TAB TABLET GT SCH (09:02)
[2019-06-18] MEDS: NEUTRA PHOS 1 POWD.PACKET GT SCH (09:02)
[2019-06-18] MEDS: ZINC SULFATE 220 MG CAPSULE GT SCH (09:03)
[2019-06-18] MEDS: ASCORBIC ACID 500 MG TABLET GT SCH (09:03)
[2019-06-18] MEDS: PROSOURCE / PROSTAT (PYXIS) 30 ML UDC GT SCH ×2 (09:03→18:00)
[2019-06-18] MEDS: METOPROLOL TARTRATE 50 MG TABLET GT SCH ×2 (09:33→20:49)
[2019-06-18] MEDS: INSULIN GLARGINE,BASAGLAR 100 UNIT/ML INSULN.PEN SQ SCH ×2 (09:34→20:50)
[2019-06-18] MEDS: AMMONIUM LACTATE 227 GM BOTTLE TP SCH ×2 (09:45→20:51)
[2019-06-18] MEDS: POVIDONE IODINE 5% TP SCH ×4 (09:45→20:53)
[2019-06-18] MEDS: NYSTATIN CREAM 15 GM TUBE TP SCH ×2 (09:45→20:52)
[2019-06-18] MEDS: Z GUARD REMEDY 4 OZ OINT TP SCH ×4 (09:45→20:53)
[2019-06-18] MEDS: HYDROGEL DRESSING 90 GM TUBE TP SCH ×2 (09:45→20:50)
[2019-06-18] MEDS: BETADINE 5% CREAM TP SCH (09:45)
[2019-06-18] MEDS: TRIAMCINOLONE ACETONIDE 0.1% CR 15 GM TUBE TP SCH ×4 (09:45→20:50)
--- NOTE | 2019-06-18 09:58 | NUR ---
Spoke with Dr. Vibha Blanchard asking if dialysis will take patient with elevated HR 108-116, she said to try and if HR will go high during dialysis, [facility] may have to transfer the patient to acute. Left a message to Dr. Homero Ivan regarding elevated HR awaiting for call back.
--- NOTE | 2019-06-18 12:10 | NUR ---
Dr. Homero Ivan returned the call, NNO given at this time, resident's HR 101-108. Adrienne, patient's daughter informed of patient's condition.
--- NOTE | 2019-06-18 12:30 | NUR ---
Called [facility] to follow up resident transportation for his scheduled dialysis today at 1230 pm spoke with Nicki she said she will send transportation and she also called [facility] that patient will be running late. After 5 mins Nicki called back again that there's no authorization from insurance for the sched treatment today and told me to call [employer] to give authorization for supervisor opening and picking.
--- NOTE | 2019-06-18 12:33 | NUR ---
pt rec'd trached on [facility] vent on AC mode. No resp distress or sob noted. sx'd for thick mod amt of pale yellow secretions. trach is patent and secured. alarms are set and audible. vent plugged into red outlet. ambu bag bedside. will continue to monitor closely. Addendum: 06/18/19 at 1233 by MANISH DOMINGUEZ RT Amended: Links added.
--- NOTE | 2019-06-18 13:20 | NUR ---
Place a call to [employer] as instructed by [employer]. spoke with Zeenat to inquire if patient has authorization for today's transportation. According to Zeenat she does not see any transportation request for today and transferred the call to [facility] department. While on hold with [employer], [facility] crew showed up with RT to brass pickler the patient. Spoke with Rachid from [employer] and said that if [facility] crew brass pickler the patient, it will be under [employer] since this transportation is not authorized. According to Rachid it was the mistake of the facility for not calling [employer] first but instead called [employer] directly. After a lengthy conversation with Rachid from [facility] [employer] [facility] , he gave CTC # [id number] for this transportation.
--- NOTE | 2019-06-18 13:35 | NUR ---
Resident left for dialysis, condition stable in no s/s of distress, report given to RT and ambulance crew.
--- NOTE | 2019-06-18 18:00 | NUR ---
Resident came back from dialysis via [facility] transportation per [facility]. Awake, no s/s of resp distress. Trach secured and midline. Perma cath on right chest intact, dressing dry and secured, no bleeding noted. VS stable. Transferred to bed and made comfortable.Will continue to monitor.
--- NOTE | 2019-06-18 21:30 | NUR ---
Dr. Alcocer ordered chest xray d/t increase heart rate. Patient HR remains around 100-119BPM. patient calm and asleep. will continue to monitor
[2019-06-19] VITALS (8 sets, daily range): BP systolic 90–116; BP diastolic 46–71
[2019-06-19] MEDS: METOCLOPRAMIDE HCL 10 MG TABLET GT SCH ×3 (05:38→21:21)
[2019-06-19] MEDS: POLYVINYL ALCOHOL 15 ML BOTTLE EACHEYE SCH ×4 (05:38→23:58)
[2019-06-19] MEDS: OMEPRAZOLE 20 MG CAPSULE.DR GT SCH (05:38)
[2019-06-19] MEDS: NEPRO 1,000 ML BOTTLE GT PRN (05:38)
[2019-06-19] MEDS: BLOOD SUGAR DIAGNOSTIC 1 EACH STRIP IN SCH ×4 (05:38→23:58)
[2019-06-19] MEDS: INSULIN ASPART/LISPRO 100 UNIT/ML CARTRIDGE SQ PRN ×4 (05:39→23:59)
--- NOTE | 2019-06-19 06:52 | NUR ---
JOSE F Alcocer regarding the chest xray result. will continue to monitor.
[2019-06-19] MEDS: HYDROGEN PEROXIDE 480 ML BOTTLE TP SCH ×2 (09:00→21:09)
[2019-06-19] MEDS: METOPROLOL TARTRATE 50 MG TABLET GT SCH ×2 (09:00→21:21)
[2019-06-19] MEDS: NYSTATIN CREAM 15 GM TUBE TP SCH ×3 (09:00→21:23)
[2019-06-19] MEDS: BETADINE 5% CREAM TP SCH (09:00)
[2019-06-19] MEDS: HYDROGEL DRESSING 90 GM TUBE TP SCH ×2 (09:00→21:23)
[2019-06-19] MEDS: Z GUARD REMEDY 4 OZ OINT TP SCH ×2 (09:00→21:23)
[2019-06-19] MEDS: AMMONIUM LACTATE 227 GM BOTTLE TP SCH ×3 (09:00→21:23)
[2019-06-19] MEDS: POVIDONE IODINE 5% TP SCH ×4 (09:00→21:23)
[2019-06-19] MEDS: TRIAMCINOLONE ACETONIDE 0.1% CR 15 GM TUBE TP SCH ×4 (09:00→21:23)
[2019-06-19] MEDS: SUCRALFATE 1 G/10 ML UDC GT SCH (09:36)
[2019-06-19] MEDS: CALCITRIOL ORAL SOLUTION 1 MCG/ML GT SCH (09:36)
[2019-06-19] MEDS: HYDROCODONE/APAP 5/325MG 1 EACH TABLET GT SCH ×2 (09:39→21:21)
[2019-06-19] MEDS: ZINC SULFATE 220 MG CAPSULE GT SCH (09:39)
[2019-06-19] MEDS: PROSOURCE / PROSTAT (PYXIS) 30 ML UDC GT SCH ×2 (09:39→17:18)
[2019-06-19] MEDS: ASCORBIC ACID 500 MG TABLET GT SCH (09:39)
[2019-06-19] MEDS: VIT B CMPLX 3/FA/VIT C/BIOTIN 1 TAB TABLET GT SCH (09:42)
[2019-06-19] MEDS: LACTOBACILLUS RHAMNOSUS GG 1 EACH CAP.SPRINK GT SCH ×2 (09:42→17:18)
[2019-06-19] MEDS: NEUTRA PHOS 1 POWD.PACKET GT SCH (09:43)
[2019-06-19] MEDS: INSULIN GLARGINE,BASAGLAR 100 UNIT/ML INSULN.PEN SQ SCH ×2 (09:54→21:22)
[2019-06-20] VITALS: BP 110/58
[2019-06-20] MEDS: NEPRO 1,000 ML BOTTLE GT PRN (01:54)
--- NOTE | 2019-06-20 03:48 | NUR ---
RT PATIENT WAS RECEIVED ON CONTINUOUS VENT SUPPORT ON NOTED VENT SETTINGS.ALARMS ARE SET AND AUDIBLE.AIRWAY PATENT AND SECURED. PATIENT STABLE AND TOLERATED CURRENT VENT SETTINGS.WILL CONTINUE TO MONITOR. Addendum: 06/20/19 at 0348 by ANTONI SANTACRUZ RT Amended: Links added.
[2019-06-20 04:00] VITALS: BP 101/76
[2019-06-20] MEDS: BLOOD SUGAR DIAGNOSTIC 1 EACH STRIP IN SCH ×4 (05:30→23:51)
[2019-06-20] MEDS: POLYVINYL ALCOHOL 15 ML BOTTLE EACHEYE SCH ×4 (05:30→23:51)
[2019-06-20] MEDS: OMEPRAZOLE 20 MG CAPSULE.DR GT SCH (05:30)
[2019-06-20] MEDS: METOCLOPRAMIDE HCL 10 MG TABLET GT SCH ×3 (05:30→21:25)
[2019-06-20] MEDS: INSULIN ASPART/LISPRO 100 UNIT/ML CARTRIDGE SQ PRN ×4 (05:31→23:52)
[2019-06-20 08:12] VITALS: BP 97/60
[2019-06-20] MEDS: INSULIN GLARGINE,BASAGLAR 100 UNIT/ML INSULN.PEN SQ SCH ×2 (09:00→21:26)
[2019-06-20] MEDS: BETADINE 5% CREAM TP SCH (09:00)
[2019-06-20] MEDS: SUCRALFATE 1 G/10 ML UDC GT SCH (09:00)
[2019-06-20] MEDS: CALCITRIOL ORAL SOLUTION 1 MCG/ML GT SCH (09:00)
[2019-06-20] MEDS: HYDROCODONE/APAP 5/325MG 1 EACH TABLET GT SCH ×2 (09:00→21:25)
[2019-06-20] MEDS: POVIDONE IODINE 5% TP SCH ×4 (09:00→21:26)
[2019-06-20] MEDS: ASCORBIC ACID 500 MG TABLET GT SCH (09:00)
[2019-06-20] MEDS: HYDROGEL DRESSING 90 GM TUBE TP SCH ×2 (09:00→21:26)
[2019-06-20] MEDS: NYSTATIN CREAM 15 GM TUBE TP SCH ×2 (09:00→21:26)
[2019-06-20] MEDS: METOPROLOL TARTRATE 50 MG TABLET GT SCH ×2 (09:00→21:00)
[2019-06-20] MEDS: Z GUARD REMEDY 4 OZ OINT TP SCH ×2 (09:00→21:26)
[2019-06-20] MEDS: TRIAMCINOLONE ACETONIDE 0.1% CR 15 GM TUBE TP SCH ×2 (09:00→21:26)
[2019-06-20] MEDS: LACTOBACILLUS RHAMNOSUS GG 1 EACH CAP.SPRINK GT SCH ×2 (09:00→17:00)
[2019-06-20] MEDS: PROSOURCE / PROSTAT (PYXIS) 30 ML UDC GT SCH ×2 (09:00→17:00)
[2019-06-20] MEDS: NEUTRA PHOS 1 POWD.PACKET GT SCH (09:00)
[2019-06-20] MEDS: AMMONIUM LACTATE 227 GM BOTTLE TP SCH ×2 (09:00→21:26)
[2019-06-20] MEDS: HYDROGEN PEROXIDE 480 ML BOTTLE TP SCH ×2 (09:00→21:26)
[2019-06-20] MEDS: ZINC SULFATE 220 MG CAPSULE GT SCH (09:00)
[2019-06-20] MEDS: VIT B CMPLX 3/FA/VIT C/BIOTIN 1 TAB TABLET GT SCH (09:00)
--- NOTE | 2019-06-20 12:14 | NUR ---
Seen by Dr Dia. Pt's heart rate 100-110, T 99.5. Dr Dia ordered CBC, BMP, and ID consult with LOPEZ Buckley. He said pt needs to start on antibiotics but to consult LOPEZ Buckley first. Informed LOPEZ Buckley. She will follow up on pt. Addendum: 06/20/19 at 1233 by GUILLERMO BEARD RN Notified pt's daughter Adrienne.
[2019-06-20 12:51] LABS: BASOPHILS # (AUTO) 0.2 /CMM (0.0-0.2); BASOPHILS % (AUTO) 0.8 % (0.0-2.0); EOSINOPHILS % (AUTO) 4.7 % (0.0-6.0); HEMATOCRIT 27 % (39-51); HEMOGLOBIN 8.4 g/dL (13.5-17.5); LYMPHOCYTES # (AUTO) 2.8 /CMM (0.8-4.8); LYMPHOCYTES % (AUTO) 13.7 % (20.0-44.0); MEAN CORPUSCULAR HGB CONC 31 g/dl (31.0-36.0); MEAN CORPUSCULAR VOLUME 99 fL (80-96); MONOCYTES % (AUTO) 9.8 % (2.0-12.0); NEUTROPHILS # (AUTO) 14.4 /CMM (1.8-8.9); PLATELET COUNT (AUTO) 652 /CMM (150-450); RED BLOOD CELL COUNT(AUTO) 2.73 MIL/uL (4.5-6.0); WHITE BLOOD COUNT (AUTO) 20.4 K/uL (4.3-11.0)
[2019-06-20 13:03] LABS: CALCIUM, SERUM 9.8 mg/dL (8.5-10.1); CREATININE 5.1 mg/dL (0.6-1.3); POTASSIUM 4.7 mmol/L (3.5-5.1)
[2019-06-20 13:16] LABS: BAND % (MANUAL) 6 % (0.0-5.0); EOSINOPHILS % (MANUAL) 6 % (0-4); LYMPHOCYTES % (MANUAL) 12 % (16-48); MONOCYTES % (MANUAL) 8 % (0-11.0); NEUTROPHILS % (MANUAL) 68 (42-76)
--- NOTE | 2019-06-20 14:44 | NUR ---
Relayed lab results to Dr Dia and LOPEZ Buckley. LOPEZ Buckley said she will see pt later. She also said pt's WBC is always high.
--- NOTE | 2019-06-20 17:25 | NUR ---
Pt came back from dialysis with BP 79/47 HR 104. Placed pt on Trendelenburg position. Notified Dr Dia. LOPEZ Buckley came to see pt. Informed her that Dr Dia wanted to start pt on antibiotics but he said to ask her first. LOPEZ Buckley said to do blood cultures for now, no antibiotics yet. Informed Dr Dia of what LOPEZ Buckley said. Dr Dia ordered to give Vancomycin and Zosyn IV pharmacy to dose after blood cultures are drawn. Notified LOPEZ Buckley. Notified pt's daughter Adrienne. Addendum: 06/20/19 at 1820 by GUILLERMO BEARD RN Pt's blood pressure improved to 94/57 HR 108 after 15 minutes on Trendelenburg. Restarted GT feeding. Informed Dr Dia.
--- NOTE | 2019-06-20 17:30 | NUR ---
HOB elevated upon restarting GT feeding.
--- NOTE | 2019-06-20 17:55 | NUR ---
RT NOTE PT REMAINS MECHANICALLY VENTILATED VIA CUFFED TRACHEOSTOMY TUBE. CUFF INFLATED. TRACH TUBE MIDLINE AND SECURE. VENTILATOR SETTINGS PRESCRIBED. ALARMS SET PER PROTOCOL AND AUDIBLE. VENT PLUGGED IN TO RED OUTLET. AMBU BAG AT BED SIDE. NO DISTRESS NOTED. Addendum: 06/20/19 at 1755 by HILLARY SANTACRUZ RT Amended: Links added.
[2019-06-20 18:25] VITALS: BP 126/63
[2019-06-20 19:45] VITALS: BP 108/74
--- NOTE | 2019-06-20 20:30 | NUR ---
RN NOTES Received new orders for Vancomycin 500mg IV after dialysis on Mon-wed-fri x 5days, Zosyn 2.25gm IV Q12hr x 5days, start 1st dose tonight from [facility], noted and carried out.
[2019-06-20] MEDS: VANCOMYCIN POST DIALYSIS 500MG IV PRN ×2 (21:00)
[2019-06-20] MEDS: PIPERACILLIN /TAZOBACTAM 2.25 G in IV D5W 50 ML IV SCH (21:00)
--- NOTE | 2019-06-20 21:00 | NUR ---
RN NOTES Started Vancomycin 500mg as ordered and Zosyn 2.25gm IV with no adverse reaction noted.
[2019-06-20 21:22] VITALS: BP 108/74
[2019-06-21] VITALS (7 sets, daily range): BP systolic 108–120; BP diastolic 61–89
--- NOTE | 2019-06-21 04:55 | NUR ---
pt rec'd trached on [facility] vent on AC mode. no resp distress or sob noted. trach is patent and secured. sx'd for small amt of pale yellow secretions. alarms are set and audible. vent plugged into red outlet. ambu bag bedside. will continue to monitor. Addendum: 06/21/19 at 0455 by MANISH DOMINGUEZ RT Amended: Links added.
[2019-06-21] MEDS: OMEPRAZOLE 20 MG CAPSULE.DR GT SCH (05:46)
[2019-06-21] MEDS: BLOOD SUGAR DIAGNOSTIC 1 EACH STRIP IN SCH ×3 (05:46→18:13)
[2019-06-21] MEDS: POLYVINYL ALCOHOL 15 ML BOTTLE EACHEYE SCH ×3 (05:46→17:07)
[2019-06-21] MEDS: METOCLOPRAMIDE HCL 10 MG TABLET GT SCH ×3 (05:46→21:04)
[2019-06-21] MEDS: INSULIN ASPART/LISPRO 100 UNIT/ML CARTRIDGE SQ PRN ×3 (05:47→18:15)
--- NOTE | 2019-06-21 08:42 | NUR ---
SW called and spoke with pt.s , Janet [phone] regarding family support group taking place 06/22/19 from 11am-12pm. Per Janet, she will not be able to make it as it conflicts with her work schedule.
[2019-06-21] MEDS: HYDROCODONE/APAP 5/325MG 1 EACH TABLET GT SCH ×2 (09:00→21:04)
[2019-06-21] MEDS: CALCITRIOL ORAL SOLUTION 1 MCG/ML GT SCH (09:00)
[2019-06-21] MEDS: POVIDONE IODINE 5% TP SCH ×4 (09:00→21:06)
[2019-06-21] MEDS: Z GUARD REMEDY 4 OZ OINT TP SCH ×2 (09:00→21:06)
[2019-06-21] MEDS: ASCORBIC ACID 500 MG TABLET GT SCH (09:00)
[2019-06-21] MEDS: INSULIN GLARGINE,BASAGLAR 100 UNIT/ML INSULN.PEN SQ SCH ×2 (09:00→21:05)
[2019-06-21] MEDS: AMMONIUM LACTATE 227 GM BOTTLE TP SCH ×2 (09:00→21:05)
[2019-06-21] MEDS: ZINC SULFATE 220 MG CAPSULE GT SCH (09:00)
[2019-06-21] MEDS: HYDROGEL DRESSING 90 GM TUBE TP SCH ×2 (09:00→21:05)
[2019-06-21] MEDS: NYSTATIN CREAM 15 GM TUBE TP SCH ×2 (09:00→21:05)
[2019-06-21] MEDS: BETADINE 5% CREAM TP SCH (09:00)
[2019-06-21] MEDS: VIT B CMPLX 3/FA/VIT C/BIOTIN 1 TAB TABLET GT SCH (09:00)
[2019-06-21] MEDS: METOPROLOL TARTRATE 50 MG TABLET GT SCH ×2 (09:00→21:04)
[2019-06-21] MEDS: TRIAMCINOLONE ACETONIDE 0.1% CR 15 GM TUBE TP SCH ×2 (09:00→21:05)
[2019-06-21] MEDS: PROSOURCE / PROSTAT (PYXIS) 30 ML UDC GT SCH ×2 (09:00→17:07)
[2019-06-21] MEDS: LACTOBACILLUS RHAMNOSUS GG 1 EACH CAP.SPRINK GT SCH ×2 (09:00→17:07)
[2019-06-21] MEDS: SUCRALFATE 1 G/10 ML UDC GT SCH (09:00)
[2019-06-21] MEDS: NEUTRA PHOS 1 POWD.PACKET GT SCH (09:00)
[2019-06-21] MEDS: HYDROGEN PEROXIDE 480 ML BOTTLE TP SCH ×2 (09:24→21:05)
[2019-06-21] MEDS: PIPERACILLIN /TAZOBACTAM 2.25 G in IV D5W 50 ML IV SCH ×2 (09:24→21:00)
--- NOTE | 2019-06-21 09:36 | NUR ---
RT NOTE PT IS CURRENTLY MECHANICALLY VENTILATED VIA CUFFED TRACHEOSTOMY TUBE. CUFF INFLATED. TRACH TUBE MIDLINE AND SECURE. VENTILATOR SETTINGS PRESCRIBED. ALARMS SET PER PROTOCOL AND AUDIBLE. VENT PLUGGED IN TO RED OUTLET. AMBU BAG AT BED SIDE. NO DISTRESS NOTED. Addendum: 06/21/19 at 0936 by HILLARY SANTACRUZ RT Amended: Links added.
[2019-06-22] VITALS (7 sets, daily range): BP systolic 104–130; BP diastolic 53–79
[2019-06-22] MEDS: INSULIN ASPART/LISPRO 100 UNIT/ML CARTRIDGE SQ PRN ×5 (00:02→23:52)
[2019-06-22] MEDS: METOCLOPRAMIDE HCL 10 MG TABLET GT SCH ×3 (05:40→21:16)
[2019-06-22] MEDS: POLYVINYL ALCOHOL 15 ML BOTTLE EACHEYE SCH ×5 (05:41→23:50)
[2019-06-22] MEDS: BLOOD SUGAR DIAGNOSTIC 1 EACH STRIP IN SCH ×5 (05:41→23:50)
[2019-06-22] MEDS: OMEPRAZOLE 20 MG CAPSULE.DR GT SCH (05:41)
[2019-06-22] MEDS: METOPROLOL TARTRATE 50 MG TABLET GT SCH ×2 (09:00→21:16)
[2019-06-22] MEDS: PIPERACILLIN /TAZOBACTAM 2.25 G in IV D5W 50 ML IV SCH ×2 (09:30→20:54)
[2019-06-22] MEDS: HYDROGEN PEROXIDE 480 ML BOTTLE TP SCH ×2 (09:44→21:02)
[2019-06-22] MEDS: SUCRALFATE 1 G/10 ML UDC GT SCH (09:55)
[2019-06-22] MEDS: LACTOBACILLUS RHAMNOSUS GG 1 EACH CAP.SPRINK GT SCH ×2 (09:56→16:53)
[2019-06-22] MEDS: ZINC SULFATE 220 MG CAPSULE GT SCH (09:58)
[2019-06-22] MEDS: TRIAMCINOLONE ACETONIDE 0.1% CR 15 GM TUBE TP SCH ×2 (09:58→21:18)
[2019-06-22] MEDS: HYDROGEL DRESSING 90 GM TUBE TP SCH ×2 (09:58→22:00)
[2019-06-22] MEDS: ASCORBIC ACID 500 MG TABLET GT SCH (09:58)
[2019-06-22] MEDS: PROSOURCE / PROSTAT (PYXIS) 30 ML UDC GT SCH ×2 (09:58→16:53)
[2019-06-22] MEDS: AMMONIUM LACTATE 227 GM BOTTLE TP SCH ×2 (09:58→21:18)
[2019-06-22] MEDS: BETADINE 5% CREAM TP SCH (09:59)
[2019-06-22] MEDS: INSULIN GLARGINE,BASAGLAR 100 UNIT/ML INSULN.PEN SQ SCH ×2 (09:59→21:17)
[2019-06-22] MEDS: NYSTATIN CREAM 15 GM TUBE TP SCH ×2 (09:59→22:00)
[2019-06-22] MEDS: Z GUARD REMEDY 4 OZ OINT TP SCH ×2 (09:59→21:19)
[2019-06-22] MEDS: CALCITRIOL ORAL SOLUTION 1 MCG/ML GT SCH (09:59)
[2019-06-22] MEDS: HYDROCODONE/APAP 5/325MG 1 EACH TABLET GT SCH ×2 (09:59→21:16)
[2019-06-22] MEDS: POVIDONE IODINE 5% TP SCH ×4 (09:59→21:19)
[2019-06-22] MEDS: NEUTRA PHOS 1 POWD.PACKET GT SCH (10:01)
[2019-06-22] MEDS: VIT B CMPLX 3/FA/VIT C/BIOTIN 1 TAB TABLET GT SCH (10:01)
[2019-06-22] MEDS: NEPRO 1,000 ML BOTTLE GT PRN ×2 (18:01→23:50)
[2019-06-22] MEDS: VANCOMYCIN POST DIALYSIS 500MG IV PRN ×2 (20:54)
[2019-06-23] VITALS (8 sets, daily range): BP systolic 96–121; BP diastolic 40–72
--- NOTE | 2019-06-23 02:43 | NUR ---
pt rec'd trached on [facility] vent on AC mode. no resp distress or sob noted. trach is patent and secured. sx'd for small amt of pale yellow secretions. alarms are set and audible. vent plugged into red outlet. ambu bag bedside. will continue to monitor. Addendum: 06/23/19 at 0243 by MANISH DOMINGUEZ RT Amended: Links added.
[2019-06-23] MEDS: METOCLOPRAMIDE HCL 10 MG TABLET GT SCH ×3 (05:36→20:44)
[2019-06-23] MEDS: POLYVINYL ALCOHOL 15 ML BOTTLE EACHEYE SCH ×4 (05:36→23:01)
[2019-06-23] MEDS: OMEPRAZOLE 20 MG CAPSULE.DR GT SCH (05:36)
[2019-06-23] MEDS: BLOOD SUGAR DIAGNOSTIC 1 EACH STRIP IN SCH ×4 (05:36→23:11)
[2019-06-23] MEDS: INSULIN ASPART/LISPRO 100 UNIT/ML CARTRIDGE SQ PRN ×4 (05:38→23:12)
--- NOTE | 2019-06-23 08:25 | NUR ---
RT NOTE pt rec'd trached on mech vent on AC mode. no resp distress or sob noted. trach is patent and secured. sx'd for small amt of pale yellow secretions. alarms are set and audible. vent plugged into red outlet. ambu bag bedside. will continue to monitor.
[2019-06-23] MEDS: VIT B CMPLX 3/FA/VIT C/BIOTIN 1 TAB TABLET GT SCH (09:00)
[2019-06-23] MEDS: INSULIN GLARGINE,BASAGLAR 100 UNIT/ML INSULN.PEN SQ SCH ×2 (09:00→20:45)
[2019-06-23] MEDS: NEUTRA PHOS 1 POWD.PACKET GT SCH (09:00)
[2019-06-23] MEDS: HYDROGEN PEROXIDE 480 ML BOTTLE TP SCH ×2 (09:00→20:45)
[2019-06-23] MEDS: PIPERACILLIN /TAZOBACTAM 2.25 G in IV D5W 50 ML IV SCH ×2 (09:00→20:25)
[2019-06-23] MEDS: TRIAMCINOLONE ACETONIDE 0.1% CR 15 GM TUBE TP SCH ×2 (09:00→20:45)
[2019-06-23] MEDS: ASCORBIC ACID 500 MG TABLET GT SCH (09:00)
[2019-06-23] MEDS: SUCRALFATE 1 G/10 ML UDC GT SCH (09:00)
[2019-06-23] MEDS: LACTOBACILLUS RHAMNOSUS GG 1 EACH CAP.SPRINK GT SCH ×2 (09:00→17:48)
[2019-06-23] MEDS: NYSTATIN CREAM 15 GM TUBE TP SCH ×2 (09:00→20:45)
[2019-06-23] MEDS: AMMONIUM LACTATE 227 GM BOTTLE TP SCH ×2 (09:00→20:45)
[2019-06-23] MEDS: ZINC SULFATE 220 MG CAPSULE GT SCH (09:00)
[2019-06-23] MEDS: POVIDONE IODINE 5% TP SCH ×4 (09:00→20:46)
[2019-06-23] MEDS: PROSOURCE / PROSTAT (PYXIS) 30 ML UDC GT SCH ×2 (09:00→17:45)
[2019-06-23] MEDS: METOPROLOL TARTRATE 50 MG TABLET GT SCH ×2 (09:00→20:44)
[2019-06-23] MEDS: BETADINE 5% CREAM TP SCH (09:00)
[2019-06-23] MEDS: HYDROCODONE/APAP 5/325MG 1 EACH TABLET GT SCH ×2 (09:00→20:44)
[2019-06-23] MEDS: KETOCONAZOLE SHAMPOO 120 ML BOTTLE TP SCH (09:00)
[2019-06-23] MEDS: CALCITRIOL ORAL SOLUTION 1 MCG/ML GT SCH (09:00)
[2019-06-23] MEDS: HYDROGEL DRESSING 90 GM TUBE TP SCH (09:00)
[2019-06-23] MEDS: Z GUARD REMEDY 4 OZ OINT TP SCH ×2 (09:00→20:46)
--- NOTE | 2019-06-23 11:33 | NUR ---
Reported to Dr. Rocha patient with low grade temperature 100.1, 111, 108/40, 18, 100% currently on IV antibiotic of Vancomycin and Zosyn. NNO given at this time.
--- NOTE | 2019-06-23 14:55 | NUR ---
Rechecked temperature 98.8.
[2019-06-23] MEDS: NEPRO 1,000 ML BOTTLE GT PRN (15:00)
--- NOTE | 2019-06-23 16:29 | NUR ---
June Family Support Group: Patient's family was unable to attend. SW will invite family to the July Family Support Group.
--- NOTE | 2019-06-23 19:23 | NUR ---
Seen and examined by LOPEZ SOTELO.
--- NOTE | 2019-06-23 19:59 | NUR ---
RECEIVED TRACH PT ON MECH VENT WITH NOTED SETTINGS PER MD ORDERS. TRACH IS PATENT AND SECURED. LUBE ATTENDANT DONE. SX DONE PRN. VENT PLUGGED INTO RED OUTLET. ALARMS ON AND AUDIBLE. AMBU BAG @ BEDSIDE. NO RESP DISTRESS AT THIS TIME. WILL CONT TO MONITOR PT.
[2019-06-23] MEDS: DAKINS QUARTER STRENGTH (0.125%) 480 ML BOTTLE TOP SCH (20:45)
[2019-06-23] MEDS: ONDANSETRON 4 MG TAB.RAPDIS GT PRN (20:46)
[2019-06-24] VITALS (7 sets, daily range): BP systolic 94–134; BP diastolic 39–76
[2019-06-24] MEDS: OMEPRAZOLE 20 MG CAPSULE.DR GT SCH (05:04)
[2019-06-24] MEDS: POLYVINYL ALCOHOL 15 ML BOTTLE EACHEYE SCH ×4 (05:04→23:46)
[2019-06-24] MEDS: METOCLOPRAMIDE HCL 10 MG TABLET GT SCH ×3 (05:04→20:45)
[2019-06-24] MEDS: BLOOD SUGAR DIAGNOSTIC 1 EACH STRIP IN SCH ×4 (05:20→23:46)
[2019-06-24] MEDS: MECLIZINE HCL 12.5 MG TABLET GT PRN ×2 (05:21→20:48)
[2019-06-24] MEDS: INSULIN ASPART/LISPRO 100 UNIT/ML CARTRIDGE SQ PRN ×4 (05:22→23:46)
[2019-06-24] MEDS: AMMONIUM LACTATE 227 GM BOTTLE TP SCH ×2 (09:00→20:46)
[2019-06-24] MEDS: TRIAMCINOLONE ACETONIDE 0.1% CR 15 GM TUBE TP SCH ×2 (09:00→20:46)
[2019-06-24] MEDS: POVIDONE IODINE 5% TP SCH ×4 (09:00→21:04)
[2019-06-24] MEDS: PIPERACILLIN /TAZOBACTAM 2.25 G in IV D5W 50 ML IV SCH ×2 (09:00→21:00)
[2019-06-24] MEDS: BETADINE 5% CREAM TP SCH (09:00)
[2019-06-24] MEDS: Z GUARD REMEDY 4 OZ OINT TP SCH ×2 (09:00→20:48)
[2019-06-24] MEDS: DAKINS QUARTER STRENGTH (0.125%) 480 ML BOTTLE TOP SCH ×2 (09:00→20:45)
[2019-06-24] MEDS: NYSTATIN CREAM 15 GM TUBE TP SCH ×2 (09:00→20:46)
[2019-06-24] MEDS: HYDROGEN PEROXIDE 480 ML BOTTLE TP SCH ×2 (09:08→20:26)
[2019-06-24] MEDS: SUCRALFATE 1 G/10 ML UDC GT SCH (09:37)
[2019-06-24] MEDS: ZINC SULFATE 220 MG CAPSULE GT SCH (09:37)
[2019-06-24] MEDS: NEUTRA PHOS 1 POWD.PACKET GT SCH (09:37)
[2019-06-24] MEDS: ASCORBIC ACID 500 MG TABLET GT SCH (09:37)
[2019-06-24] MEDS: CALCITRIOL ORAL SOLUTION 1 MCG/ML GT SCH (09:37)
[2019-06-24] MEDS: HYDROCODONE/APAP 5/325MG 1 EACH TABLET GT SCH ×2 (09:37→20:45)
[2019-06-24] MEDS: PROSOURCE / PROSTAT (PYXIS) 30 ML UDC GT SCH ×2 (09:37→17:40)
[2019-06-24] MEDS: VIT B CMPLX 3/FA/VIT C/BIOTIN 1 TAB TABLET GT SCH (09:37)
[2019-06-24] MEDS: INSULIN GLARGINE,BASAGLAR 100 UNIT/ML INSULN.PEN SQ SCH ×2 (09:52→20:45)
[2019-06-24] MEDS: METOPROLOL TARTRATE 50 MG TABLET GT SCH ×2 (09:53→20:44)
[2019-06-24] MEDS: LACTOBACILLUS RHAMNOSUS GG 1 EACH CAP.SPRINK GT SCH ×2 (09:53→17:40)
--- NOTE | 2019-06-24 12:41 | NUR ---
RADHA contacted and spoke to patients , Janet [phone] to invite family to attend the IDT Plan of Care Conference meeting on 07/01/19 from 12:30pm-12:30pm in the activities room. Per Janet, family is able to participate via phone conference. Noted.
--- NOTE | 2019-06-24 16:47 | NUR ---
Seen and examined by Dr. Abbott, physician assistant surgery and made aware that L heel arterial wound is getting bigger in size with foul smell. Dr. Abbott assessed the wound and changed treatment from Betadine to Iodosorb. She also want vascular consult with Dr. Madsen. MD Madsen notified and will see patient on Thursday. Informed resident's daughter Christine of new order. Resident returned from dialysis.
--- NOTE | 2019-06-24 17:23 | NUR ---
Pt receive stable on ordered MV settings, treatment given and no adverse reaction observe, vent plug at red outlet, spare trach and ambu bag at bedside. Trach patent and secured, pt remained stable the whole shift, at 1700 trach change done by RT Garrick, no bleeding observe, will contine to monitor
[2019-06-24] MEDS: NEPRO 1,000 ML BOTTLE GT PRN (18:09)
--- NOTE | 2019-06-24 19:00 | NUR ---
Duplex US done, result relayed to Dr. Madsen. Resident's family at bedside and made aware of the result. Informed patient's daughter and that per Dr. Madsen he will see patient on Thursday. LOPEZ Buckley, reviewed labs, although blood culture shows no growth, she wants to continue IV ATB for 2 weeks total due to episodes of low grade temperature.
[2019-06-24] MEDS: VANCOMYCIN POST DIALYSIS 500MG IV PRN ×2 (20:30)
--- NOTE | 2019-06-24 20:43 | NUR ---
PT RCVD SARAH'D ON MECHANICAL VENT WITH CHARTED SETTINGS. SX DONE. PT SARAH IS PATENT AND SECURE. VENT PLUGGED INTO RED OUTLET. ALARMS ARE ON AND AUDIBLE. AMBU BAG AT BEDSIDE. Addendum: 06/24/19 at 2043 by OLAMIDE LANDIN RT Amended: Links added.
--- NOTE | 2019-06-24 22:00 | NUR ---
Seen and examined by Dr. Madsen no new order for now,continue local wound care.He also aware of the doppler result.He will call podiatry MD to discuss plan.
[2019-06-24] MEDS: SIMETHICONE SUSP 40 MG/0.6 ML BOTTLE PO PRN (23:46)
[2019-06-25] MEDS: ONDANSETRON 4 MG TAB.RAPDIS GT PRN (04:44)
[2019-06-25] MEDS: METOCLOPRAMIDE HCL 10 MG TABLET GT SCH ×3 (04:44→20:17)
[2019-06-25] MEDS: OMEPRAZOLE 20 MG CAPSULE.DR GT SCH (05:11)
[2019-06-25] MEDS: POLYVINYL ALCOHOL 15 ML BOTTLE EACHEYE SCH ×4 (05:11→23:21)
[2019-06-25] MEDS: BLOOD SUGAR DIAGNOSTIC 1 EACH STRIP IN SCH ×4 (05:24→23:21)
[2019-06-25] MEDS: INSULIN ASPART/LISPRO 100 UNIT/ML CARTRIDGE SQ PRN ×4 (05:25→23:22)
[2019-06-25 05:38] VITALS: BP 129/85
[2019-06-25 07:37] VITALS: BP 95/52
[2019-06-25] MEDS: METOPROLOL TARTRATE 50 MG TABLET GT SCH ×2 (09:00→20:17)
[2019-06-25] MEDS: PIPERACILLIN /TAZOBACTAM 2.25 G in IV D5W 50 ML IV SCH ×2 (09:31→21:00)
[2019-06-25] MEDS: LACTOBACILLUS RHAMNOSUS GG 1 EACH CAP.SPRINK GT SCH ×2 (09:33→16:44)
[2019-06-25] MEDS: SUCRALFATE 1 G/10 ML UDC GT SCH (09:33)
[2019-06-25] MEDS: PROSOURCE / PROSTAT (PYXIS) 30 ML UDC GT SCH ×2 (09:34→16:44)
[2019-06-25] MEDS: ZINC SULFATE 220 MG CAPSULE GT SCH (09:34)
[2019-06-25] MEDS: ASCORBIC ACID 500 MG TABLET GT SCH (09:35)
[2019-06-25] MEDS: CALCITRIOL ORAL SOLUTION 1 MCG/ML GT SCH (09:36)
[2019-06-25] MEDS: AMMONIUM LACTATE 227 GM BOTTLE TP SCH ×2 (09:37→20:17)
[2019-06-25] MEDS: Z GUARD REMEDY 4 OZ OINT TP SCH ×2 (09:37→20:18)
[2019-06-25] MEDS: TRIAMCINOLONE ACETONIDE 0.1% CR 15 GM TUBE TP SCH ×2 (09:37→20:17)
[2019-06-25] MEDS: BETADINE 5% CREAM TP SCH (09:37)
[2019-06-25] MEDS: NYSTATIN CREAM 15 GM TUBE TP SCH ×2 (09:37→20:18)
[2019-06-25] MEDS: HYDROGEN PEROXIDE 480 ML BOTTLE TP SCH ×2 (09:37→20:17)
[2019-06-25] MEDS: DAKINS QUARTER STRENGTH (0.125%) 480 ML BOTTLE TOP SCH ×2 (09:37→20:17)
[2019-06-25] MEDS: POVIDONE IODINE 5% TP SCH ×2 (09:37→20:18)
[2019-06-25] MEDS: CADEXOMER IODINE 40 GM TUBE TP SCH ×2 (09:37→20:17)
[2019-06-25] MEDS: HYDROCODONE/APAP 5/325MG 1 EACH TABLET GT SCH ×2 (09:40→20:17)
[2019-06-25] MEDS: MECLIZINE HCL 12.5 MG TABLET GT PRN ×2 (09:41→20:18)
[2019-06-25] MEDS: NEUTRA PHOS 1 POWD.PACKET GT SCH (09:44)
[2019-06-25] MEDS: VIT B CMPLX 3/FA/VIT C/BIOTIN 1 TAB TABLET GT SCH (09:44)
[2019-06-25] MEDS: INSULIN GLARGINE,BASAGLAR 100 UNIT/ML INSULN.PEN SQ SCH ×2 (09:48→20:40)
[2019-06-25 12:32] VITALS: BP 95/72
[2019-06-25] MEDS: NEPRO 1,000 ML BOTTLE GT PRN (14:31)
--- NOTE | 2019-06-25 17:51 | NUR ---
RT NOTE PATIENT RECEIVED ON MECHANICAL VENT. WITH NOTED SETTINGS. VENTILATOR IS PLUGGED TO RED OUTLET AND ALARMS ARE SET AND AUDIBLE. TRACH IS PATENT AND SECURED. SPARE TRACH AND BMV AT BEDSIDE. TRACH CARE WAS PERFORMED. SUCTION SMALL GREEN THICK SECRETIONS THROUGH OUT THE DAY. BREATH SOUNDS WERE RHONCHI BEFORE SUCTION AND COARSE AFTER SUCTION. PATIENT MAINTAINED HEART RATE, RESPIRATORY RATE, AND O2 SATURATIONS WITHIN NORMAL RANGES. NO SOB NOTED. REPORT WILL BE GIVEN TO STEAM PLANT OPERATOR. Addendum: 06/25/19 at 1752 by MILLIE JI RT Amended: Links added.
[2019-06-25 18:27] VITALS: BP 95/72
[2019-06-25 20:06] VITALS: BP 122/69
[2019-06-25 20:40] VITALS: BP 122/69
[2019-06-26] VITALS (7 sets, daily range): BP systolic 92–131; BP diastolic 43–91
[2019-06-26] MEDS: METOCLOPRAMIDE HCL 10 MG TABLET GT SCH ×3 (05:41→21:28)
[2019-06-26] MEDS: OMEPRAZOLE 20 MG CAPSULE.DR GT SCH (05:41)
[2019-06-26] MEDS: POLYVINYL ALCOHOL 15 ML BOTTLE EACHEYE SCH ×3 (05:41→17:38)
[2019-06-26] MEDS: BLOOD SUGAR DIAGNOSTIC 1 EACH STRIP IN SCH ×3 (05:41→17:38)
[2019-06-26] MEDS: ONDANSETRON 4 MG TAB.RAPDIS GT PRN (05:42)
[2019-06-26] MEDS: INSULIN ASPART/LISPRO 100 UNIT/ML CARTRIDGE SQ PRN ×4 (05:42→23:32)
--- NOTE | 2019-06-26 06:12 | NUR ---
Pt received on ordered MV settings , Vent plug on red outlet, spare trach and ambu bag is at bedside, alarms are on and audible. trach patent and secured, sxn prn, pt was stable the whole shift, no sob or respiratory distress noted during the shift
--- NOTE | 2019-06-26 07:58 | NUR ---
RT Pt received trached on the vent with noted settings. Pt is awake but does not follow commands. Vent is plugged into red outlet. No respiratory distress noted. Addendum: 06/26/19 at 1634 by SAJAN BOLANOS RT Amended: Links added.
[2019-06-26] MEDS: Z GUARD REMEDY 4 OZ OINT TP SCH ×2 (09:00→21:32)
[2019-06-26] MEDS: PIPERACILLIN /TAZOBACTAM 2.25 G in IV D5W 50 ML IV SCH ×2 (09:00→21:00)
[2019-06-26] MEDS: HYDROGEN PEROXIDE 480 ML BOTTLE TP SCH ×2 (09:00→21:31)
[2019-06-26] MEDS: CALCITRIOL ORAL SOLUTION 1 MCG/ML GT SCH (09:05)
[2019-06-26] MEDS: LACTOBACILLUS RHAMNOSUS GG 1 EACH CAP.SPRINK GT SCH ×2 (09:05→16:44)
[2019-06-26] MEDS: NEUTRA PHOS 1 POWD.PACKET GT SCH (09:05)
[2019-06-26] MEDS: VIT B CMPLX 3/FA/VIT C/BIOTIN 1 TAB TABLET GT SCH (09:05)
[2019-06-26] MEDS: METOPROLOL TARTRATE 50 MG TABLET GT SCH ×2 (09:05→21:26)
[2019-06-26] MEDS: SUCRALFATE 1 G/10 ML UDC GT SCH (09:05)
[2019-06-26] MEDS: HYDROCODONE/APAP 5/325MG 1 EACH TABLET GT SCH ×2 (09:06→21:28)
[2019-06-26] MEDS: PROSOURCE / PROSTAT (PYXIS) 30 ML UDC GT SCH ×2 (09:06→16:44)
[2019-06-26] MEDS: ASCORBIC ACID 500 MG TABLET GT SCH (09:07)
[2019-06-26] MEDS: ZINC SULFATE 220 MG CAPSULE GT SCH (09:07)
[2019-06-26] MEDS: INSULIN GLARGINE,BASAGLAR 100 UNIT/ML INSULN.PEN SQ SCH ×2 (09:27→21:30)
[2019-06-26] MEDS: TRIAMCINOLONE ACETONIDE 0.1% CR 15 GM TUBE TP SCH ×2 (09:30→21:31)
[2019-06-26] MEDS: NYSTATIN CREAM 15 GM TUBE TP SCH ×2 (09:30→21:31)
[2019-06-26] MEDS: AMMONIUM LACTATE 227 GM BOTTLE TP SCH ×2 (09:30→21:31)
[2019-06-26] MEDS: BETADINE 5% CREAM TP SCH (09:30)
[2019-06-26] MEDS: DAKINS QUARTER STRENGTH (0.125%) 480 ML BOTTLE TOP SCH ×2 (09:30→21:30)
[2019-06-26] MEDS: CADEXOMER IODINE 40 GM TUBE TP SCH ×2 (09:30→21:31)
[2019-06-26] MEDS: POVIDONE IODINE 5% TP SCH ×2 (09:30→21:31)
[2019-06-26] MEDS: MECLIZINE HCL 12.5 MG TABLET GT PRN (16:42)
[2019-06-26] MEDS: NEPRO 1,000 ML BOTTLE GT PRN (16:44)
[2019-06-27] VITALS (7 sets, daily range): BP systolic 97–136; BP diastolic 44–78
[2019-06-27] MEDS: OMEPRAZOLE 20 MG CAPSULE.DR GT SCH (05:22)
[2019-06-27] MEDS: METOCLOPRAMIDE HCL 10 MG TABLET GT SCH ×3 (05:22→20:55)
[2019-06-27] MEDS: POLYVINYL ALCOHOL 15 ML BOTTLE EACHEYE SCH ×5 (05:22→23:33)
[2019-06-27] MEDS: INSULIN ASPART/LISPRO 100 UNIT/ML CARTRIDGE SQ PRN ×3 (06:03→23:34)
[2019-06-27] MEDS: BLOOD SUGAR DIAGNOSTIC 1 EACH STRIP IN SCH ×5 (06:04→23:33)
[2019-06-27] MEDS: HYDROGEN PEROXIDE 480 ML BOTTLE TP SCH ×2 (07:32→19:46)
[2019-06-27] MEDS: TRIAMCINOLONE ACETONIDE 0.1% CR 15 GM TUBE TP SCH ×2 (09:00→21:41)
[2019-06-27] MEDS: METOPROLOL TARTRATE 50 MG TABLET GT SCH ×2 (09:00→20:55)
[2019-06-27] MEDS: CALCITRIOL ORAL SOLUTION 1 MCG/ML GT SCH (09:08)
[2019-06-27] MEDS: NEUTRA PHOS 1 POWD.PACKET GT SCH (09:08)
[2019-06-27] MEDS: VIT B CMPLX 3/FA/VIT C/BIOTIN 1 TAB TABLET GT SCH (09:08)
[2019-06-27] MEDS: SUCRALFATE 1 G/10 ML UDC GT SCH (09:08)
[2019-06-27] MEDS: LACTOBACILLUS RHAMNOSUS GG 1 EACH CAP.SPRINK GT SCH ×2 (09:08→16:52)
[2019-06-27] MEDS: ZINC SULFATE 220 MG CAPSULE GT SCH (09:09)
[2019-06-27] MEDS: HYDROCODONE/APAP 5/325MG 1 EACH TABLET GT SCH ×2 (09:09→20:55)
[2019-06-27] MEDS: PROSOURCE / PROSTAT (PYXIS) 30 ML UDC GT SCH ×2 (09:09→16:52)
[2019-06-27] MEDS: ASCORBIC ACID 500 MG TABLET GT SCH (09:09)
[2019-06-27] MEDS: INSULIN GLARGINE,BASAGLAR 100 UNIT/ML INSULN.PEN SQ SCH ×2 (09:12→21:25)
[2019-06-27] MEDS: BETADINE 5% CREAM TP SCH (09:30)
[2019-06-27] MEDS: POVIDONE IODINE 5% TP SCH ×2 (09:30→21:42)
[2019-06-27] MEDS: DAKINS QUARTER STRENGTH (0.125%) 480 ML BOTTLE TOP SCH ×2 (09:30→21:41)
[2019-06-27] MEDS: NYSTATIN CREAM 15 GM TUBE TP SCH ×2 (09:30→21:42)
[2019-06-27] MEDS: Z GUARD REMEDY 4 OZ OINT TP SCH ×2 (09:30→21:42)
[2019-06-27] MEDS: CADEXOMER IODINE 40 GM TUBE TP SCH ×2 (09:30→21:41)
[2019-06-27] MEDS: AMMONIUM LACTATE 227 GM BOTTLE TP SCH ×2 (09:30→21:42)
[2019-06-27] MEDS: PIPERACILLIN /TAZOBACTAM 2.25 G in IV D5W 50 ML IV SCH ×2 (09:48→21:00)
--- NOTE | 2019-06-27 12:35 | NUR ---
Vancomycin random level 20. Received order to hold Vancomycin dose today, resume Vancomycin 500 mg IV 3 times weekly after HD on 06/29/19.
[2019-06-27] MEDS: NEPRO 1,000 ML BOTTLE GT PRN (16:49)
--- NOTE | 2019-06-27 19:46 | NUR ---
RT NOTE: RECEIVED TRACH PT ON [facility] VENT ON NOTED SETTINGS PER MD ORDERS. TRACH IS PATENT AND SECURED. TRACH CARE DONE. SALES/MARKETING DONE. SX DONE PRN. VENT PLUGGED INTO RED OUTLET. ALARMS ON AND AUDIBLE. COLTON TORRES @ BEDSIDE. NO RESP DISTRESS AT THIS TIME. WILL CONT TO MONITOR PT. Addendum: 06/28/19 at 0304 by CELY STERLING RT Amended: Links added.
[2019-06-28] VITALS (7 sets, daily range): BP systolic 100–114; BP diastolic 47–58
[2019-06-28] MEDS: METOCLOPRAMIDE HCL 10 MG TABLET GT SCH ×3 (05:39→21:47)
[2019-06-28] MEDS: POLYVINYL ALCOHOL 15 ML BOTTLE EACHEYE SCH ×4 (05:39→23:55)
[2019-06-28] MEDS: OMEPRAZOLE 20 MG CAPSULE.DR GT SCH (05:39)
[2019-06-28] MEDS: BLOOD SUGAR DIAGNOSTIC 1 EACH STRIP IN SCH ×3 (05:59→17:23)
[2019-06-28] MEDS: INSULIN ASPART/LISPRO 100 UNIT/ML CARTRIDGE SQ PRN ×3 (06:00→17:28)
[2019-06-28] MEDS: CALCITRIOL ORAL SOLUTION 1 MCG/ML GT SCH (08:42)
[2019-06-28] MEDS: SUCRALFATE 1 G/10 ML UDC GT SCH (08:42)
[2019-06-28] MEDS: LACTOBACILLUS RHAMNOSUS GG 1 EACH CAP.SPRINK GT SCH ×2 (08:43→17:06)
[2019-06-28] MEDS: PROSOURCE / PROSTAT (PYXIS) 30 ML UDC GT SCH ×2 (08:43→17:06)
[2019-06-28] MEDS: ASCORBIC ACID 500 MG TABLET GT SCH (08:43)
[2019-06-28] MEDS: VIT B CMPLX 3/FA/VIT C/BIOTIN 1 TAB TABLET GT SCH (08:43)
[2019-06-28] MEDS: ZINC SULFATE 220 MG CAPSULE GT SCH (08:43)
[2019-06-28] MEDS: METOPROLOL TARTRATE 50 MG TABLET GT SCH ×2 (08:43→21:00)
[2019-06-28] MEDS: NEUTRA PHOS 1 POWD.PACKET GT SCH (08:43)
[2019-06-28] MEDS: INSULIN GLARGINE,BASAGLAR 100 UNIT/ML INSULN.PEN SQ SCH ×2 (08:44→21:00)
--- NOTE | 2019-06-28 08:59 | NUR ---
Late entry for 06/27/19 Seen by LOPEZ Phipps. Relayed elevated blood sugar levels to her. She said she will review them.
[2019-06-28] MEDS: HYDROGEN PEROXIDE 480 ML BOTTLE TP SCH ×2 (09:00→21:00)
[2019-06-28] MEDS: HYDROCODONE/APAP 5/325MG 1 EACH TABLET GT SCH ×2 (09:00→21:45)
[2019-06-28] MEDS: PIPERACILLIN /TAZOBACTAM 2.25 G in IV D5W 50 ML IV SCH ×2 (09:00→21:40)
[2019-06-28] MEDS: BETADINE 5% CREAM TP SCH (09:30)
[2019-06-28] MEDS: CADEXOMER IODINE 40 GM TUBE TP SCH ×2 (09:30→21:00)
[2019-06-28] MEDS: DAKINS QUARTER STRENGTH (0.125%) 480 ML BOTTLE TOP SCH ×2 (09:30→21:40)
[2019-06-28] MEDS: Z GUARD REMEDY 4 OZ OINT TP SCH ×2 (09:30→21:00)
[2019-06-28] MEDS: NYSTATIN CREAM 15 GM TUBE TP SCH ×2 (09:30→21:00)
[2019-06-28] MEDS: TRIAMCINOLONE ACETONIDE 0.1% CR 15 GM TUBE TP SCH ×2 (09:30→21:40)
[2019-06-28] MEDS: AMMONIUM LACTATE 227 GM BOTTLE TP SCH ×2 (09:30→21:00)
[2019-06-28] MEDS: POVIDONE IODINE 5% TP SCH ×2 (09:30→21:00)
[2019-06-28] MEDS: NEPRO 1,000 ML BOTTLE GT PRN (17:05)
--- NOTE | 2019-06-28 20:26 | NUR ---
RT NOTE PT RECEIVED TRACHED ON MECHANICAL VENTILATION. AMBU BAG/BACK UP TRACH @ BEDSIDE. SX DONE, TRACH SECURED AND PATENT. ALARMS ON AND AUDIBLE. VENT PLUGGED TO RED OUTLET. NO SOB NOTED AT THIS TIME. WILL CONTINUE TO MONITOR T/O SHIFT. Addendum: 06/28/19 at 2026 by MARCIA YOUNG RT Amended: Links added.
[2019-06-29] VITALS (8 sets, daily range): BP systolic 98–146; BP diastolic 43–72
[2019-06-29] MEDS: BLOOD SUGAR DIAGNOSTIC 1 EACH STRIP IN SCH ×5 (00:09→23:21)
[2019-06-29] MEDS: INSULIN ASPART/LISPRO 100 UNIT/ML CARTRIDGE SQ PRN ×4 (00:14→23:23)
[2019-06-29] MEDS: METOCLOPRAMIDE HCL 10 MG TABLET GT SCH ×3 (04:08→21:18)
[2019-06-29] MEDS: POLYVINYL ALCOHOL 15 ML BOTTLE EACHEYE SCH ×4 (06:12→23:21)
[2019-06-29] MEDS: OMEPRAZOLE 20 MG CAPSULE.DR GT SCH (06:13)
[2019-06-29] MEDS: TRIAMCINOLONE ACETONIDE 0.1% CR 15 GM TUBE TP SCH ×2 (09:00→21:54)
[2019-06-29] MEDS: CADEXOMER IODINE 40 GM TUBE TP SCH ×2 (09:00→21:54)
[2019-06-29] MEDS: PIPERACILLIN /TAZOBACTAM 2.25 G in IV D5W 50 ML IV SCH ×2 (09:00→20:41)
[2019-06-29] MEDS: AMMONIUM LACTATE 227 GM BOTTLE TP SCH ×2 (09:00→21:54)
[2019-06-29] MEDS: DAKINS QUARTER STRENGTH (0.125%) 480 ML BOTTLE TOP SCH ×2 (09:00→21:53)
[2019-06-29] MEDS: BETADINE 5% CREAM TP SCH (09:00)
[2019-06-29] MEDS: POVIDONE IODINE 5% TP SCH ×2 (09:00→21:54)
[2019-06-29] MEDS: Z GUARD REMEDY 4 OZ OINT TP SCH ×2 (09:00→21:54)
[2019-06-29] MEDS: NYSTATIN CREAM 15 GM TUBE TP SCH ×2 (09:00→21:54)
[2019-06-29] MEDS: HYDROGEN PEROXIDE 480 ML BOTTLE TP SCH ×2 (09:00→20:59)
[2019-06-29] MEDS: NEUTRA PHOS 1 POWD.PACKET GT SCH (09:55)
[2019-06-29] MEDS: CALCITRIOL ORAL SOLUTION 1 MCG/ML GT SCH (09:55)
[2019-06-29] MEDS: SUCRALFATE 1 G/10 ML UDC GT SCH (09:55)
[2019-06-29] MEDS: METOPROLOL TARTRATE 50 MG TABLET GT SCH ×2 (09:55→21:00)
[2019-06-29] MEDS: LACTOBACILLUS RHAMNOSUS GG 1 EACH CAP.SPRINK GT SCH ×2 (09:55→17:00)
[2019-06-29] MEDS: VIT B CMPLX 3/FA/VIT C/BIOTIN 1 TAB TABLET GT SCH (09:55)
[2019-06-29] MEDS: ASCORBIC ACID 500 MG TABLET GT SCH (09:56)
[2019-06-29] MEDS: ZINC SULFATE 220 MG CAPSULE GT SCH (09:56)
[2019-06-29] MEDS: PROSOURCE / PROSTAT (PYXIS) 30 ML UDC GT SCH ×2 (09:56→17:39)
[2019-06-29] MEDS: HYDROCODONE/APAP 5/325MG 1 EACH TABLET GT SCH ×2 (09:56→21:18)
[2019-06-29] MEDS: INSULIN GLARGINE,BASAGLAR 100 UNIT/ML INSULN.PEN SQ SCH ×2 (09:57→21:39)
--- NOTE | 2019-06-29 17:30 | NUR ---
Resident had his dialysis today at [facility], V/S stable upon return, Dialysis access site in the R upper chest wall, dressing intact. LOPEZ Buckley reviewed labs with order to repeat CBC in AM.
[2019-06-29] MEDS ORDERED: VANCOMYCIN POST DIALYSIS 500MG IV PRN ×2 (21:00)
--- NOTE | 2019-06-29 23:10 | NUR ---
pt rec'd trached on [facility] vent on AC mode. no resp distress or sob noted. trach is patent and secured. sx'd for small amt of pale yellow secretions. alarms are set and audible. vent plugged into red outlet. ambu bag bedside. will continue to monitor. Addendum: 06/29/19 at 2311 by MANISH DOMINGUEZ RT Amended: Links added.
[2019-06-29] MEDS: NEPRO 1,000 ML BOTTLE GT PRN (23:42)
[2019-06-30] VITALS (8 sets, daily range): BP systolic 100–120; BP diastolic 41–81
[2019-06-30] MEDS: OMEPRAZOLE 20 MG CAPSULE.DR GT SCH (05:24)
[2019-06-30] MEDS: POLYVINYL ALCOHOL 15 ML BOTTLE EACHEYE SCH ×3 (05:24→17:21)
[2019-06-30] MEDS: METOCLOPRAMIDE HCL 10 MG TABLET GT SCH ×3 (05:24→21:31)
[2019-06-30] MEDS: BLOOD SUGAR DIAGNOSTIC 1 EACH STRIP IN SCH ×3 (05:46→17:21)
[2019-06-30] MEDS: INSULIN ASPART/LISPRO 100 UNIT/ML CARTRIDGE SQ PRN ×3 (05:47→17:28)
[2019-06-30 08:24] LABS: BASOPHILS # (AUTO) 0.1 /CMM (0.0-0.2); BASOPHILS % (AUTO) 0.8 % (0.0-2.0); EOSINOPHILS % (AUTO) 5.9 % (0.0-6.0); HEMATOCRIT 26 % (39-51); HEMOGLOBIN 7.9 g/dL (13.5-17.5); LYMPHOCYTES # (AUTO) 2.6 /CMM (0.8-4.8); MEAN CORPUSCULAR HGB CONC 30 g/dl (31.0-36.0); MEAN CORPUSCULAR VOLUME 97 fL (80-96); MONOCYTES # (AUTO) 1.9 /CMM (0.1-1.30); MONOCYTES % (AUTO) 11.8 % (2.0-12.0); NEUTROPHILS # (AUTO) 10.9 /CMM (1.8-8.9); NEUTROPHILS % (AUTO) 65.5 % (43.0-81.0); PLATELET COUNT (AUTO) 578 /CMM (150-450); RED BLOOD CELL COUNT(AUTO) 2.69 MIL/uL (4.5-6.0); WHITE BLOOD COUNT (AUTO) 16.6 K/uL (4.3-11.0)
[2019-06-30] MEDS: AMMONIUM LACTATE 227 GM BOTTLE TP SCH ×2 (09:00→21:55)
[2019-06-30] MEDS: CADEXOMER IODINE 40 GM TUBE TP SCH ×2 (09:00→21:55)
[2019-06-30] MEDS: HYDROGEN PEROXIDE 480 ML BOTTLE TP SCH ×2 (09:00→21:00)
[2019-06-30] MEDS: DAKINS QUARTER STRENGTH (0.125%) 480 ML BOTTLE TOP SCH ×2 (09:00→21:55)
[2019-06-30] MEDS: TRIAMCINOLONE ACETONIDE 0.1% CR 15 GM TUBE TP SCH ×2 (09:00→21:55)
[2019-06-30] MEDS: POVIDONE IODINE 5% TP SCH ×2 (09:00→21:55)
[2019-06-30] MEDS: KETOCONAZOLE SHAMPOO 120 ML BOTTLE TP SCH (09:00)
[2019-06-30] MEDS: BETADINE 5% CREAM TP SCH (09:00)
[2019-06-30] MEDS: Z GUARD REMEDY 4 OZ OINT TP SCH ×2 (09:00→21:55)
[2019-06-30] MEDS: NYSTATIN CREAM 15 GM TUBE TP SCH ×2 (09:00→21:55)
[2019-06-30] MEDS: PIPERACILLIN /TAZOBACTAM 2.25 G in IV D5W 50 ML IV SCH ×2 (09:43→21:55)
[2019-06-30] MEDS: CALCITRIOL ORAL SOLUTION 1 MCG/ML GT SCH (09:45)
[2019-06-30] MEDS: LACTOBACILLUS RHAMNOSUS GG 1 EACH CAP.SPRINK GT SCH ×2 (09:45→17:21)
[2019-06-30] MEDS: SUCRALFATE 1 G/10 ML UDC GT SCH (09:45)
[2019-06-30] MEDS: ASCORBIC ACID 500 MG TABLET GT SCH (09:46)
[2019-06-30] MEDS: HYDROCODONE/APAP 5/325MG 1 EACH TABLET GT SCH ×2 (09:46→21:31)
[2019-06-30] MEDS: VIT B CMPLX 3/FA/VIT C/BIOTIN 1 TAB TABLET GT SCH (09:46)
[2019-06-30] MEDS: NEUTRA PHOS 1 POWD.PACKET GT SCH (09:46)
[2019-06-30] MEDS: PROSOURCE / PROSTAT (PYXIS) 30 ML UDC GT SCH ×2 (09:46→17:21)
[2019-06-30] MEDS: ZINC SULFATE 220 MG CAPSULE GT SCH (09:46)
[2019-06-30] MEDS: METOPROLOL TARTRATE 50 MG TABLET GT SCH ×2 (09:46→21:30)
[2019-06-30] MEDS: INSULIN GLARGINE,BASAGLAR 100 UNIT/ML INSULN.PEN SQ SCH ×2 (09:48→21:45)
--- NOTE | 2019-06-30 11:40 | NUR ---
Relayed CBC result to Dr Dia. No new order.
[2019-06-30] MEDS: MECLIZINE HCL 12.5 MG TABLET GT PRN (12:39)
--- NOTE | 2019-06-30 15:00 | NUR ---
Seen by Dr Dia. Notified him that pt vomited once today. No new order.
[2019-06-30] MEDS: NEPRO 1,000 ML BOTTLE GT PRN (19:05)
[2019-07-01] VITALS (8 sets, daily range): BP systolic 101–120; BP diastolic 40–86
[2019-07-01] MEDS: BLOOD SUGAR DIAGNOSTIC 1 EACH STRIP IN SCH ×4 (00:33→17:12)
[2019-07-01] MEDS: POLYVINYL ALCOHOL 15 ML BOTTLE EACHEYE SCH ×4 (00:33→17:12)
[2019-07-01] MEDS: INSULIN ASPART/LISPRO 100 UNIT/ML CARTRIDGE SQ PRN ×4 (00:35→17:14)
--- NOTE | 2019-07-01 04:47 | NUR ---
Pt receive stable on ordered vent settings, vent plug on red outlet, ambu bag and spare trach at bedside, trach patent and secured, sxn PRN, no sob or respiratory distress noted, will continue to monitor
[2019-07-01] MEDS: OMEPRAZOLE 20 MG CAPSULE.DR GT SCH (05:23)
[2019-07-01] MEDS: METOCLOPRAMIDE HCL 10 MG TABLET GT SCH ×3 (05:23→21:35)
[2019-07-01] MEDS: HYDROGEN PEROXIDE 480 ML BOTTLE TP SCH ×2 (08:26→21:00)
[2019-07-01] MEDS: PIPERACILLIN /TAZOBACTAM 2.25 G in IV D5W 50 ML IV SCH ×2 (09:00→21:33)
[2019-07-01] MEDS: DAKINS QUARTER STRENGTH (0.125%) 480 ML BOTTLE TOP SCH ×2 (09:00→21:58)
[2019-07-01] MEDS: TRIAMCINOLONE ACETONIDE 0.1% CR 15 GM TUBE TP SCH ×2 (09:00→21:58)
[2019-07-01] MEDS: NYSTATIN CREAM 15 GM TUBE TP SCH ×2 (09:00→21:58)
[2019-07-01] MEDS: BETADINE 5% CREAM TP SCH (09:00)
[2019-07-01] MEDS: AMMONIUM LACTATE 227 GM BOTTLE TP SCH ×2 (09:00→21:58)
[2019-07-01] MEDS: Z GUARD REMEDY 4 OZ OINT TP SCH ×2 (09:00→21:58)
[2019-07-01] MEDS: CADEXOMER IODINE 40 GM TUBE TP SCH ×2 (09:00→21:58)
[2019-07-01] MEDS: POVIDONE IODINE 5% TP SCH ×2 (09:00→21:58)
[2019-07-01] MEDS: CALCITRIOL ORAL SOLUTION 1 MCG/ML GT SCH (09:54)
[2019-07-01] MEDS: SUCRALFATE 1 G/10 ML UDC GT SCH (09:55)
[2019-07-01] MEDS: HYDROCODONE/APAP 5/325MG 1 EACH TABLET GT SCH ×2 (09:55→21:35)
[2019-07-01] MEDS: LACTOBACILLUS RHAMNOSUS GG 1 EACH CAP.SPRINK GT SCH ×2 (09:55→17:22)
[2019-07-01] MEDS: PROSOURCE / PROSTAT (PYXIS) 30 ML UDC GT SCH ×2 (09:55→17:12)
[2019-07-01] MEDS: ZINC SULFATE 220 MG CAPSULE GT SCH (09:55)
[2019-07-01] MEDS: ASCORBIC ACID 500 MG TABLET GT SCH (09:55)
[2019-07-01] MEDS: VIT B CMPLX 3/FA/VIT C/BIOTIN 1 TAB TABLET GT SCH (09:55)
[2019-07-01] MEDS: NEUTRA PHOS 1 POWD.PACKET GT SCH (09:55)
[2019-07-01] MEDS: METOPROLOL TARTRATE 50 MG TABLET GT SCH ×2 (09:55→21:34)
[2019-07-01] MEDS: INSULIN GLARGINE,BASAGLAR 100 UNIT/ML INSULN.PEN SQ SCH ×2 (10:00→21:58)
--- NOTE | 2019-07-01 12:30 | NUR ---
RT NOTE PT. WAS TRANSFERRED TO DIALYSIS. PT STABLE NO SOB AT THIS TIME. Addendum: 07/01/19 at 1532 by MILLIE JI RT Amended: Links added.
--- NOTE | 2019-07-01 14:00 | NUR ---
Dr. Rocha and IDT team reviewed medications and current condition of the patient , He still have episode of vomiting, Meclizine discontinued since it is not helping. Dr. Rocha ordered LFT's, Amylase and KUB for Thursday07/04/2019. Resident's family informed.
--- NOTE | 2019-07-01 14:37 | NUR ---
June Plan of Care Conference took place today. The patients daughter, Adrienne [phone] participated via phone conference. Charge nurse discussed pt. still on antibiotics; 06/20/19 Vancomycin 500 mg IV after dialysis, 20 syn 2.25 gm IV g 12, BCX2, Flu vaccine administered on 06/22/19; CBC in AM on 06/30/19; continue Vancomycin, 20 syn for total of 2 weeks until 07/04/19. Dr. Rocha and Interdisciplinary team discussed the plan of care in detail. Current orders as well as treatments and medications were reviewed. Please see other disciplines IDT notes for further details.
[2019-07-02] VITALS (7 sets, daily range): BP systolic 93–122; BP diastolic 40–74
[2019-07-02] MEDS: POLYVINYL ALCOHOL 15 ML BOTTLE EACHEYE SCH ×5 (00:46→23:33)
[2019-07-02] MEDS: BLOOD SUGAR DIAGNOSTIC 1 EACH STRIP IN SCH ×5 (00:46→23:33)
[2019-07-02] MEDS: INSULIN ASPART/LISPRO 100 UNIT/ML CARTRIDGE SQ PRN ×5 (00:47→23:35)
[2019-07-02] MEDS: METOCLOPRAMIDE HCL 10 MG TABLET GT SCH ×3 (05:05→20:36)
[2019-07-02] MEDS: OMEPRAZOLE 20 MG CAPSULE.DR GT SCH (05:05)
[2019-07-02] MEDS: NEPRO 1,000 ML BOTTLE GT PRN (05:05)
[2019-07-02] MEDS: TRIAMCINOLONE ACETONIDE 0.1% CR 15 GM TUBE TP SCH ×2 (09:00→21:00)
[2019-07-02] MEDS: DAKINS QUARTER STRENGTH (0.125%) 480 ML BOTTLE TOP SCH ×2 (09:00→21:00)
[2019-07-02] MEDS: VIT B CMPLX 3/FA/VIT C/BIOTIN 1 TAB TABLET GT SCH (09:00)
[2019-07-02] MEDS: NEUTRA PHOS 1 POWD.PACKET GT SCH (09:00)
[2019-07-02] MEDS: PROSOURCE / PROSTAT (PYXIS) 30 ML UDC GT SCH ×2 (09:00→17:00)
[2019-07-02] MEDS: HYDROGEN PEROXIDE 480 ML BOTTLE TP SCH ×2 (09:00→21:00)
[2019-07-02] MEDS: LACTOBACILLUS RHAMNOSUS GG 1 EACH CAP.SPRINK GT SCH ×2 (09:00→17:00)
[2019-07-02] MEDS: PIPERACILLIN /TAZOBACTAM 2.25 G in IV D5W 50 ML IV SCH ×2 (09:00→21:00)
[2019-07-02] MEDS: AMMONIUM LACTATE 227 GM BOTTLE TP SCH ×2 (09:00→21:00)
[2019-07-02] MEDS: POVIDONE IODINE 5% TP SCH ×2 (09:00→21:00)
[2019-07-02] MEDS: SUCRALFATE 1 G/10 ML UDC GT SCH (09:00)
[2019-07-02] MEDS: BETADINE 5% CREAM TP SCH (09:00)
[2019-07-02] MEDS: INSULIN GLARGINE,BASAGLAR 100 UNIT/ML INSULN.PEN SQ SCH ×2 (09:00→21:00)
[2019-07-02] MEDS: CALCITRIOL ORAL SOLUTION 1 MCG/ML GT SCH (09:00)
[2019-07-02] MEDS: NYSTATIN CREAM 15 GM TUBE TP SCH ×2 (09:00→21:00)
[2019-07-02] MEDS: ASCORBIC ACID 500 MG TABLET GT SCH (09:00)
[2019-07-02] MEDS: Z GUARD REMEDY 4 OZ OINT TP SCH ×2 (09:00→21:00)
[2019-07-02] MEDS: CADEXOMER IODINE 40 GM TUBE TP SCH ×2 (09:00→21:00)
[2019-07-02] MEDS: ZINC SULFATE 220 MG CAPSULE GT SCH (09:00)
[2019-07-02] MEDS: HYDROCODONE/APAP 5/325MG 1 EACH TABLET GT SCH ×2 (09:00→20:36)
[2019-07-02] MEDS: METOPROLOL TARTRATE 50 MG TABLET GT SCH ×2 (09:00→20:36)
[2019-07-03] VITALS (7 sets, daily range): BP systolic 101–122; BP diastolic 49–64
[2019-07-03] MEDS: ACETAMINOPHEN 650 MG/20 ML UDC- SA PATIENTS-FEVER ONLY GT PRN (02:54)
[2019-07-03] MEDS: NEPRO 1,000 ML BOTTLE GT PRN (03:32)
--- NOTE | 2019-07-03 05:35 | NUR ---
RT PATIENT WAS RECEIVED ON CONTINUOUS VENT SUPPORT ON NOTED VENT SETTINGS.AIRWAY PATENT AND SECURED. PATIENT STABLE THROUGHOUT THE SHIFT.WILL CONTINUE TO MONITOR. Addendum: 07/03/19 at 0535 by ANTONI SANTACRUZ RT Amended: Links added.
[2019-07-03] MEDS: POLYVINYL ALCOHOL 15 ML BOTTLE EACHEYE SCH ×3 (05:55→17:45)
[2019-07-03] MEDS: OMEPRAZOLE 20 MG CAPSULE.DR GT SCH (05:55)
[2019-07-03] MEDS: METOCLOPRAMIDE HCL 10 MG TABLET GT SCH ×3 (05:55→21:12)
[2019-07-03] MEDS: BLOOD SUGAR DIAGNOSTIC 1 EACH STRIP IN SCH ×3 (05:55→17:45)
[2019-07-03] MEDS: INSULIN ASPART/LISPRO 100 UNIT/ML CARTRIDGE SQ PRN ×3 (05:58→17:47)
--- NOTE | 2019-07-03 07:40 | NUR ---
RT Pt received trached on the vent with noted settings. Pt is awake but does not follow commands. Vent is plugged into red outlet. No respiratory distress noted at this time. Addendum: 07/03/19 at 1539 by SAJAN BOLANOS RT Amended: Links added.
[2019-07-03] MEDS: SUCRALFATE 1 G/10 ML UDC GT SCH (09:00)
[2019-07-03] MEDS: HYDROGEN PEROXIDE 480 ML BOTTLE TP SCH ×2 (09:00→21:00)
[2019-07-03] MEDS: LACTOBACILLUS RHAMNOSUS GG 1 EACH CAP.SPRINK GT SCH ×2 (09:00→17:00)
[2019-07-03] MEDS: ASCORBIC ACID 500 MG TABLET GT SCH (09:00)
[2019-07-03] MEDS: INSULIN GLARGINE,BASAGLAR 100 UNIT/ML INSULN.PEN SQ SCH ×2 (09:00→21:24)
[2019-07-03] MEDS: CALCITRIOL ORAL SOLUTION 1 MCG/ML GT SCH (09:00)
[2019-07-03] MEDS: VIT B CMPLX 3/FA/VIT C/BIOTIN 1 TAB TABLET GT SCH (09:00)
[2019-07-03] MEDS: ZINC SULFATE 220 MG CAPSULE GT SCH (09:00)
[2019-07-03] MEDS: NEUTRA PHOS 1 POWD.PACKET GT SCH (09:00)
[2019-07-03] MEDS: METOPROLOL TARTRATE 50 MG TABLET GT SCH ×2 (09:00→21:10)
[2019-07-03] MEDS: PIPERACILLIN /TAZOBACTAM 2.25 G in IV D5W 50 ML IV SCH ×2 (09:00→21:00)
[2019-07-03] MEDS: PROSOURCE / PROSTAT (PYXIS) 30 ML UDC GT SCH ×2 (09:00→17:45)
[2019-07-03] MEDS: HYDROCODONE/APAP 5/325MG 1 EACH TABLET GT SCH ×2 (09:00→21:11)
[2019-07-03] MEDS: BETADINE 5% CREAM TP SCH (09:30)
[2019-07-03] MEDS: Z GUARD REMEDY 4 OZ OINT TP SCH ×2 (09:30→21:14)
[2019-07-03] MEDS: POVIDONE IODINE 5% TP SCH ×2 (09:30→21:14)
[2019-07-03] MEDS: AMMONIUM LACTATE 227 GM BOTTLE TP SCH ×2 (09:30→21:14)
[2019-07-03] MEDS: NYSTATIN CREAM 15 GM TUBE TP SCH ×2 (09:30→21:14)
[2019-07-03] MEDS: DAKINS QUARTER STRENGTH (0.125%) 480 ML BOTTLE TOP SCH ×2 (09:30→21:13)
[2019-07-03] MEDS: CADEXOMER IODINE 40 GM TUBE TP SCH ×2 (09:30→21:13)
[2019-07-03] MEDS: TRIAMCINOLONE ACETONIDE 0.1% CR 15 GM TUBE TP SCH ×2 (09:30→21:13)
[2019-07-04] MEDS: POLYVINYL ALCOHOL 15 ML BOTTLE EACHEYE SCH ×4 (00:16→18:00)
[2019-07-04] MEDS: BLOOD SUGAR DIAGNOSTIC 1 EACH STRIP IN SCH ×4 (00:16→18:00)
[2019-07-04] MEDS: INSULIN ASPART/LISPRO 100 UNIT/ML CARTRIDGE SQ PRN ×3 (00:20→12:29)
[2019-07-04 00:23] VITALS: BP 113/63
[2019-07-04] MEDS: NEPRO 1,000 ML BOTTLE GT PRN (05:38)
[2019-07-04] MEDS: METOCLOPRAMIDE HCL 10 MG TABLET GT SCH ×2 (05:39→13:00)
[2019-07-04] MEDS: OMEPRAZOLE 20 MG CAPSULE.DR GT SCH (05:39)
[2019-07-04 06:23] VITALS: BP 110/53
[2019-07-04 07:54] VITALS: BP 120/28
[2019-07-04 08:00] VITALS: BP 120/60
[2019-07-04 08:28] LABS: ALBUMIN 2.1 g/dL (3.4-5.0); BILIRUBIN,DIRECT 0.1 mg/dL (0.0-0.2); BILIRUBIN,TOTAL 0.3 mg/dL (0.2-1.0); TOTAL PROTEIN, SERUM 8.4 g/dL (6.4-8.2)
[2019-07-04] MEDS: PIPERACILLIN /TAZOBACTAM 2.25 G in IV D5W 50 ML IV SCH (09:00)
[2019-07-04] MEDS: SUCRALFATE 1 G/10 ML UDC GT SCH (09:42)
[2019-07-04] MEDS: VIT B CMPLX 3/FA/VIT C/BIOTIN 1 TAB TABLET GT SCH (09:42)
[2019-07-04] MEDS: LACTOBACILLUS RHAMNOSUS GG 1 EACH CAP.SPRINK GT SCH ×2 (09:42→17:00)
[2019-07-04] MEDS: NEUTRA PHOS 1 POWD.PACKET GT SCH (09:42)
[2019-07-04] MEDS: CALCITRIOL ORAL SOLUTION 1 MCG/ML GT SCH (09:42)
[2019-07-04] MEDS: HYDROCODONE/APAP 5/325MG 1 EACH TABLET GT SCH (09:44)
[2019-07-04] MEDS: PROSOURCE / PROSTAT (PYXIS) 30 ML UDC GT SCH ×2 (09:46→17:00)
[2019-07-04] MEDS: ZINC SULFATE 220 MG CAPSULE GT SCH (09:46)
[2019-07-04] MEDS: ASCORBIC ACID 500 MG TABLET GT SCH (09:46)
[2019-07-04] MEDS: INSULIN GLARGINE,BASAGLAR 100 UNIT/ML INSULN.PEN SQ SCH (09:57)
[2019-07-04] MEDS: METOPROLOL TARTRATE 50 MG TABLET GT SCH (09:58)
[2019-07-04] MEDS: POVIDONE IODINE 5% TP SCH (10:30)
[2019-07-04] MEDS: DAKINS QUARTER STRENGTH (0.125%) 480 ML BOTTLE TOP SCH (10:30)
[2019-07-04] MEDS: BETADINE 5% CREAM TP SCH (10:30)
[2019-07-04] MEDS: CADEXOMER IODINE 40 GM TUBE TP SCH (10:30)
[2019-07-04] MEDS: TRIAMCINOLONE ACETONIDE 0.1% CR 15 GM TUBE TP SCH (10:30)
[2019-07-04] MEDS: Z GUARD REMEDY 4 OZ OINT TP SCH (10:30)
[2019-07-04] MEDS: AMMONIUM LACTATE 227 GM BOTTLE TP SCH (10:30)
[2019-07-04] MEDS: NYSTATIN CREAM 15 GM TUBE TP SCH (10:30)
[2019-07-04 12:00] VITALS: BP 144/74
--- NOTE | 2019-07-04 12:30 | NUR ---
Resident was picked up for dialysis treatment by [facility] ambulance. Stable vital signs BP 144/74, HR-98, RR-18, temp. 99. Dialysis site intact, dressing dry and clean. Awake, no s/s of distress. All emergency equipment taken.
--- NOTE | 2019-07-04 15:37 | NUR ---
Informed FIREWALL SECURITY ENGINEER Ina that pt's antibiotics are completed. Asked her to re-evaluate since pt had a temp of 100 F on 07/02/19 and temp 99.4 F today.
--- NOTE | 2019-07-04 16:35 | NUR ---
Relayed blood sugar levels to Dr Dia earlier. [facility] called and informed [facility] that pt was sent to the ER due to hypotension. Notified Dr Dia and pt's daughter Christine.
[2019-07-04] MEDS ORDERED: SIME80TA15 GT (17:32)
[2019-07-04] MEDS ORDERED: VIT500LI GT (17:32)
[2019-07-04] MEDS ORDERED: DEXT50DI8 IV (17:32)
[2019-07-04] MEDS ORDERED: POLY15DR40 EACHEYE (17:32)
[2019-07-04] MEDS ORDERED: MEPILEX TP (17:32)
[2019-07-04] MEDS ORDERED: LACT1CAP72 GT (17:32)
[2019-07-04] MEDS ORDERED: KETO120S6 TP (17:32)
[2019-07-04] MEDS ORDERED: CADE40GE2 TP (17:32)
[2019-07-04] MEDS ORDERED: ALBU1.257 IH (17:32)
[2019-07-04] MEDS ORDERED: ALLA266C2 TP (17:32)
[2019-07-04] MEDS ORDERED: ONDA4TAB10 GT (17:32)
[2019-07-04] MEDS ORDERED: HYDR1SOL TP (17:32)
[2019-07-04] MEDS ORDERED: TRIA80CR12 TP (17:32)
[2019-07-04] MEDS ORDERED: POVI3780 TP (17:32)
[2019-07-04] MEDS ORDERED: INSU100V11 SQ (17:32)
[2019-07-04] MEDS ORDERED: NYST15CR TP (17:32)
[2019-07-04] MEDS ORDERED: SODI473S8 TOP (17:32)
[2019-07-04] MEDS ORDERED: GEL100GE TP (17:32)
[2019-07-04] MEDS ORDERED: FOLI0.8T2 GT (17:32)
[2019-07-05] MEDS: LACTOBACILLUS RHAMNOSUS GG 1 EACH CAP.SPRINK GT SCH (17:00)
[2019-07-05] MEDS: PROSOURCE / PROSTAT (PYXIS) 30 ML UDC GT SCH (17:00)
--- NOTE | 2019-07-07 12:16 | NUR ---
Per Director, Sonia ortiz, RADHA contacted [facility] [phone] and spoke to Misa to update them that the pt. is still in acute care. Misa expressed understanding. RADHA will contact [facility] when the pt. is re-admitted to to initiate regularly scheduled dialysis appointments. RADHA contacted [facility] [phone] ambulance services and spoke to Mg to update them that the pt. is still not back in unit and to hold off on providing transportation to [facility] until further notice. Mg expressed understanding and was agreeable to plan. RADHA will contact [facility] to restart regularly scheduled transportation to [facility] when pt. is re-admitted to .
--- NOTE | 2019-07-07 12:40 | NUR ---
RADHA completed SS portion of quarter MDS. The patients responsible republican are his , Janet [phone] and his daughters, Adrienne [phone] & Christine [phone] who are very involved and supportive as they visit almost daily. 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 The patients last dental visit was 04/19/[address] Buck and his last optometry visit was 02/11/[address] Hong and is not due for another exam until 10/09/2019. The patients last podiatry visit was 06/24/[address] Potter and was seen by Dematologist, Dr. Degroot on 03/28/19. Addendum: 07/07/19 at 1242 by EDGAR GARCIA Late Entry for 07/03/19
[2019-07-08] MEDS ORDERED: HYDROGEL DRESSING 90 GM TUBE TP SCH (09:00)
--- NOTE | 2019-07-08 09:57 | NUR ---
RADHA contacted [facility] [phone] and spoke to Sae to inform them that patient will not be needing transportation services for today 07/08/19 for dialysis. However, pt. transportation to [facility] [phone] should resume as normally scheduled starting on Thursday, June. Sae noted it and was agreeable to plan. RADHA contacted [facility] and spoke to Art to notify of above stated information and was agreeable to plan. RADHA informed charge nurse and , Janet [phone].
--- NOTE | 2019-07-10 12:35 | NUR ---
Readmitted resident from 3W accompanied by RN, RT and DRAWBENCH OPERATOR per hospital bed. Awake, non-verbal. No s/s of resp. distress. Resp. even and unlabored. Trach secured and midline. On mechanical ventilator, tolerating well. Permacath on right upper chest wall intact, dressing dry and clean. Left upper arm PICC line intact and patent with dressing dry and clean. GT intact and patent. Body check done. Dr. Dia informed and verified meds. All meds transcribed and faxed to pharmacy. Vital signs stable. Will continue to monitor.
[2019-07-10 12:45] VITALS: BP 125/60
[2019-07-10] MEDS: NEPRO 1,000 ML BOTTLE GT PRN (12:45)
--- NOTE | 2019-07-10 12:51 | NUR ---
RT NOTE ADMITTED PT FROM 3 [facility]ST AT THIS TIME WILL CONTINUE TO MONITOR THROUGHOUT SHIFT PT STABLE ALARMS ON AND AUDIBLE.
[2019-07-10] MEDS ORDERED: MAGN400O6 GT (15:23)
[2019-07-10] MEDS ORDERED: CLOT15CR63 TP (15:23)
[2019-07-10] MEDS ORDERED: INSU100V7 SQ (15:23)
[2019-07-10] MEDS ORDERED: PANT40VI IV (15:23)
[2019-07-10] MEDS ORDERED: MUPI22OI7 BNOSTRILS (15:23)
[2019-07-10] MEDS ORDERED: MAG30ORA GT (15:23)
[2019-07-10] MEDS ORDERED: VANC500V3 IV (15:23)
[2019-07-10] MEDS ORDERED: MICA100V IV (15:23)
[2019-07-10] MEDS ORDERED: HYDR-4384 GT (15:23)
[2019-07-10] MEDS ORDERED: AMIK250V8 IV (15:23)
[2019-07-10] MEDS ORDERED: ONDA4VIA52 IVP (15:23)
[2019-07-10] MEDS ORDERED: NA PHOS,M-B/NA PHOS,DI-BA 1 EA ENEMA RC PRN (17:00)
[2019-07-10] MEDS ORDERED: BISACODYL SUPP (10 MG) 10 MG/SUPP.RECT SUPP.RECT RC PRN (17:00)
[2019-07-10] MEDS ORDERED: SIMETHICONE SUSP 40 MG/0.6 ML BOTTLE GT PRN (17:00)
[2019-07-10] MEDS ORDERED: HYDROGEN PEROXIDE 480 ML BOTTLE TP PRN (17:00)
[2019-07-10] MEDS ORDERED: CLONIDINE HCL 0.1 MG TABLET GT PRN (17:00)
[2019-07-10] MEDS ORDERED: DEXTROSE 50%-WATER 50 ML DISP.SYRIN IV PRN (17:00)
[2019-07-10] MEDS ORDERED: ACETAMINOPHEN 650 MG/20 ML UDC- SA PATIENTS-PAIN ONLY GT PRN (17:00)
[2019-07-10] MEDS ORDERED: ALBUTEROL HALF STRENGTH 1.25 MG/3 ML VIAL.NEB NEB PRN (17:00)
[2019-07-10] MEDS ORDERED: ACETAMINOPHEN 650 MG/20 ML UDC- SA PATIENTS-FEVER ONLY GT PRN (17:00)
[2019-07-10] MEDS: LACTOBACILLUS RHAMNOSUS GG 1 EACH CAP.SPRINK GT SCH (17:15)
[2019-07-10] MEDS: BLOOD SUGAR DIAGNOSTIC 1 EACH STRIP IN SCH ×2 (17:15→23:00)
[2019-07-10] MEDS: PROSOURCE / PROSTAT (PYXIS) 30 ML UDC GT SCH (17:15)
[2019-07-10] MEDS: POLYVINYL ALCOHOL 15 ML BOTTLE EACHEYE SCH (17:15)
[2019-07-10] MEDS: INSULIN ASPART/LISPRO 100 UNIT/ML CARTRIDGE SQ PRN (17:18)
[2019-07-10] MEDS ORDERED: HYDROCODONE/APAP 5/325MG 1 EACH TABLET GT PRN (17:30)
[2019-07-10] MEDS ORDERED: ONDANSETRON HCL/PF 4 MG/2 ML VIAL IVP PRN (17:30)
[2019-07-10] MEDS ORDERED: NS 0.9% IV PRN (17:30)
[2019-07-10] MEDS ORDERED: MAGNESIUM HYDROXIDE 30 ML UDC GT PRN (17:30)
[2019-07-10] MEDS ORDERED: AMIKACIN IV PRN (17:30)
[2019-07-10] MEDS ORDERED: MAG HYDROX/AL HYDROX/SIMETH 30 ML UDC GT PRN (17:30)
[2019-07-10] MEDS ORDERED: VANCOMYCIN 500 MG in IV D5W 100 ML IV PRN (17:30)
[2019-07-10] MEDS ORDERED: MICAFUNGIN SODIUM 100 MG in IV NS 0.9% 100 ML IV SCH (18:00)
[2019-07-10 18:45] VITALS: BP 126/74
--- NOTE | 2019-07-10 19:13 | NUR ---
Mycamine IV not administered not yet available from [facility]. Pls administer once available.
[2019-07-10 20:31] VITALS: BP 133/69
[2019-07-10] MEDS: METOPROLOL TARTRATE 50 MG TABLET GT SCH (21:00)
[2019-07-10] MEDS: HYDROGEN PEROXIDE 480 ML BOTTLE TP SCH (21:00)
[2019-07-10] MEDS: METOCLOPRAMIDE HCL 10 MG TABLET GT SCH (21:01)
[2019-07-10] MEDS: HYDROCODONE/APAP 5/325MG 1 EACH TABLET GT SCH (21:01)
[2019-07-10] MEDS: MUPIROCIN OINT 2% 22 GM TUBE SCH (21:02)
[2019-07-10] MEDS: INSULIN GLARGINE,BASAGLAR 100 UNIT/ML INSULN.PEN SQ SCH (21:12)
[2019-07-10 21:14] VITALS: BP 133/69
[2019-07-11] VITALS (8 sets, daily range): BP systolic 98–138; BP diastolic 55–89
[2019-07-11] MEDS: POLYVINYL ALCOHOL 15 ML BOTTLE EACHEYE SCH ×4 (00:15→17:34)
[2019-07-11] MEDS: INSULIN ASPART/LISPRO 100 UNIT/ML CARTRIDGE SQ PRN ×4 (00:16→17:35)
--- NOTE | 2019-07-11 02:28 | NUR ---
RT NOTE RECEIVED TRACH PATIENT ON MECHANICAL VENT. WITH NOTED SETTINGS. TRACH IS PATENT AND SECURED. ALARMS ARE SET AND AUDIBLE. SPARE TRACH AND BVM IS AT BEDSIDE. VENT IS PLUGGED TO RED OUTLET. SUCTION SECRETIONS PRN. TRACH CARE DONE. PATIENT HAS EQUAL CHEST RISE WITH COARSE BILATERAL BREATH SOUNDS. NO SOB NOTED. Addendum: 07/11/19 at 0230 by MILLIE JI RT Amended: Links added.
[2019-07-11] MEDS: BLOOD SUGAR DIAGNOSTIC 1 EACH STRIP IN SCH ×4 (05:00→23:00)
[2019-07-11] MEDS: METOCLOPRAMIDE HCL 10 MG TABLET GT SCH ×3 (05:00→21:14)
[2019-07-11] MEDS: OMEPRAZOLE 20 MG CAPSULE.DR GT SCH (06:00)
[2019-07-11] MEDS: NEPRO 1,000 ML BOTTLE GT PRN (06:10)
[2019-07-11 07:37] LABS: CALCIUM, SERUM 9.1 mg/dL (8.5-10.1); CREATININE 4.3 mg/dL (0.6-1.3); POTASSIUM 3.7 mmol/L (3.5-5.1)
[2019-07-11] MEDS: METOPROLOL TARTRATE 50 MG TABLET GT SCH ×2 (08:31→21:14)
[2019-07-11] MEDS: NEUTRA PHOS 1 POWD.PACKET GT SCH (08:31)
[2019-07-11] MEDS: VIT B CMPLX 3/FA/VIT C/BIOTIN 1 TAB TABLET GT SCH (08:31)
[2019-07-11] MEDS: LACTOBACILLUS RHAMNOSUS GG 1 EACH CAP.SPRINK GT SCH ×2 (08:31→16:46)
[2019-07-11] MEDS: SUCRALFATE 1 G/10 ML UDC GT SCH (08:31)
[2019-07-11] MEDS: PROSOURCE / PROSTAT (PYXIS) 30 ML UDC GT SCH ×2 (08:32→16:46)
[2019-07-11] MEDS: HYDROCODONE/APAP 5/325MG 1 EACH TABLET GT SCH (08:32)
[2019-07-11] MEDS: ZINC SULFATE 220 MG CAPSULE GT SCH (08:32)
[2019-07-11] MEDS: ASCORBIC ACID 500 MG TABLET GT SCH (08:32)
[2019-07-11] MEDS: MUPIROCIN OINT 2% 22 GM TUBE SCH ×2 (08:33→21:15)
[2019-07-11] MEDS: INSULIN GLARGINE,BASAGLAR 100 UNIT/ML INSULN.PEN SQ SCH ×2 (08:39→21:17)
--- NOTE | 2019-07-11 08:42 | NUR ---
Called [facility] to arrange dialysis schedule, spoke with Nitza. She said pt will have the same dialysis schedule as before which is q Thursday, Thursday, Thursday at 1245 pm. Arranged transportation with [facility] [employer] [facility]. Confirmation # [id number]. Pt will be picked up at 1215pm.
[2019-07-11] MEDS ORDERED: CALCITRIOL ORAL SOLUTION 1 MCG/ML GT SCH (09:00)
[2019-07-11] MEDS ORDERED: PANTOPRAZOLE 40 MG VIAL IV SCH (09:00)
[2019-07-11] MEDS ORDERED: BETADINE 5% CREAM TP SCH (09:00)
[2019-07-11] MEDS: HYDROGEN PEROXIDE 480 ML BOTTLE TP SCH ×2 (09:00→21:14)
[2019-07-11] MEDS: CADEXOMER IODINE 40 GM TUBE TP SCH ×2 (09:40→21:18)
[2019-07-11] MEDS: DAKINS HALF STRENGTH (0.25%) 480 ML BOTTLE TOP SCH ×2 (09:40→21:17)
[2019-07-11] MEDS: AMMONIUM LACTATE 227 GM BOTTLE TP SCH ×2 (09:40→21:18)
[2019-07-11] MEDS: Z GUARD REMEDY 4 OZ OINT TP SCH ×2 (09:40→21:18)
[2019-07-11] MEDS: BETADINE 5% CREAM TP SCH ×2 (09:40→21:18)
[2019-07-11] MEDS: HYDROGEL DRESSING 90 GM TUBE TP SCH ×2 (09:40→21:18)
[2019-07-11] MEDS: ONDANSETRON 4 MG TAB.RAPDIS GT PRN (10:35)
--- NOTE | 2019-07-11 10:43 | NUR ---
RT NOTE RECEIVED PT MECHANICALLY VENTILATED VIA CUFFED TRACHEOSTOMY TUBE. CUFF INFLATED. TRACH TUBE MIDLINE AND SECURE. VENTILATOR SETTINGS PRESCRIBED. ALARMS SET PER PROTOCOL AND AUDIBLE. VENT PLUGGED IN TO RED OUTLET. AMBU BAG AT BED SIDE. NO DISTRESS NOTED. Addendum: 07/11/19 at 1043 by HILLARY SANTACRUZ RT Amended: Links added.
--- NOTE | 2019-07-11 13:07 | NUR ---
At 12:30pm Patient picked by [facility] via [facility] for hemodialysis treatment, accompanied by 2 EMT's and 1 RT. RT upper chest HD catheter intact, no bleeding noted, covered with dressing, clean and dry. Patient left the building in stable condition. Pt afebrile.
--- NOTE | 2019-07-11 15:58 | NUR ---
Received faxed physician telephone order from [facility] to [facility]. Spoke with [facility] pharmacist Susu who said that it was an order from the doctor to [facility]. Verified it with Dr Dia. He ordered to OR [place] and to give Acetaminophen 650 mg GT q shift 30 minutes prior to wound treatment. He also ordered to OR Calcitriol per recommendation of [facility].
--- NOTE | 2019-07-11 16:30 | NUR ---
Patient returned from S/P hemodialysis treatment, no s/s of any complications noted. Pt afebrile. RT upper chest HD catheter intact, no bleeding noted, covered with dressing, clean and dry. Kept comfortable in bed. No s/s of respiratory distress noted.
--- NOTE | 2019-07-11 17:47 | NUR ---
Relayed Amikacin level 11.6 and Vancomycin level 17 to [facility] pharmacist Dwayne. Received order to hold Amikacin dose today and give Amikacin 350 mg IV after dialysis on 07/13/19, continue Vancomycin 500 mg IV q after dialysis, Amikacin and Vancomycin level before dialysis on 07/15/19.
--- NOTE | 2019-07-11 17:59 | NUR ---
Pt's family visited. Educated pt's and daughters to observe isolation precautions, to put on PPE and do proper handwashing. Also reminded staff to observe isolation precautions.
[2019-07-11] MEDS: VANCOMYCIN 500 MG in IV D5W 100 ML IV PRN (18:21)
[2019-07-11] MEDS: MICAFUNGIN SODIUM 100 MG in IV NS 0.9% 100 ML IV SCH (21:00)
[2019-07-11] MEDS: ACETAMINOPHEN 650 MG/20.3 ML UDC GT SCH (21:15)
[2019-07-12] VITALS (8 sets, daily range): BP systolic 111–132; BP diastolic 52–88
[2019-07-12] MEDS: POLYVINYL ALCOHOL 15 ML BOTTLE EACHEYE SCH ×4 (00:36→17:14)
[2019-07-12] MEDS: INSULIN ASPART/LISPRO 100 UNIT/ML CARTRIDGE SQ PRN ×4 (00:38→17:16)
[2019-07-12] MEDS: BLOOD SUGAR DIAGNOSTIC 1 EACH STRIP IN SCH ×4 (05:00→23:00)
[2019-07-12] MEDS: METOCLOPRAMIDE HCL 10 MG TABLET GT SCH ×3 (05:00→20:08)
[2019-07-12] MEDS: OMEPRAZOLE 20 MG CAPSULE.DR GT SCH (06:07)
[2019-07-12 07:18] LABS: CREATININE 2.6 mg/dL (0.6-1.3)
[2019-07-12 07:20] LABS: POTASSIUM 2.8 mmol/L (3.5-5.1)
--- NOTE | 2019-07-12 08:09 | NUR ---
Left message for Dr Dia regarding K 2.8.
--- NOTE | 2019-07-12 08:30 | NUR ---
Dr Dia ordered to give Potassium Chloride 60 mEq via G-tube x 1 for hypokalemia. Notified Adrienne.
[2019-07-12] MEDS: AMMONIUM LACTATE 227 GM BOTTLE TP SCH ×2 (09:00→20:13)
[2019-07-12] MEDS: MUPIROCIN OINT 2% 22 GM TUBE SCH ×2 (09:00→20:09)
[2019-07-12] MEDS: DAKINS HALF STRENGTH (0.25%) 480 ML BOTTLE TOP SCH ×2 (09:00→20:12)
[2019-07-12] MEDS: HYDROGEL DRESSING 90 GM TUBE TP SCH ×2 (09:00→20:12)
[2019-07-12] MEDS: HYDROGEN PEROXIDE 480 ML BOTTLE TP SCH ×2 (09:00→21:00)
[2019-07-12] MEDS: Z GUARD REMEDY 4 OZ OINT TP SCH ×2 (09:00→20:13)
[2019-07-12] MEDS: BETADINE 5% CREAM TP SCH ×2 (09:00→20:13)
[2019-07-12] MEDS: CADEXOMER IODINE 40 GM TUBE TP SCH ×3 (09:00→20:13)
[2019-07-12] MEDS: LACTOBACILLUS RHAMNOSUS GG 1 EACH CAP.SPRINK GT SCH ×2 (09:47→17:14)
[2019-07-12] MEDS: SUCRALFATE 1 G/10 ML UDC GT SCH (09:47)
[2019-07-12] MEDS: METOPROLOL TARTRATE 50 MG TABLET GT SCH ×2 (09:48→20:07)
[2019-07-12] MEDS: ZINC SULFATE 220 MG CAPSULE GT SCH (09:48)
[2019-07-12] MEDS: ASCORBIC ACID 500 MG TABLET GT SCH (09:48)
[2019-07-12] MEDS: NEUTRA PHOS 1 POWD.PACKET GT SCH (09:48)
[2019-07-12] MEDS: VIT B CMPLX 3/FA/VIT C/BIOTIN 1 TAB TABLET GT SCH (09:48)
[2019-07-12] MEDS: PROSOURCE / PROSTAT (PYXIS) 30 ML UDC GT SCH ×2 (09:48→17:14)
[2019-07-12] MEDS: ACETAMINOPHEN 650 MG/20.3 ML UDC GT SCH ×2 (09:48→20:08)
[2019-07-12] MEDS: INSULIN GLARGINE,BASAGLAR 100 UNIT/ML INSULN.PEN SQ SCH ×2 (09:50→20:12)
[2019-07-12] MEDS ORDERED: POTASSIUM CHLORIDE 20 MEQ POWDER PACKET GT ONE (10:00)
[2019-07-12] MEDS: NEPRO 1,000 ML BOTTLE GT PRN (10:52)
[2019-07-12] MEDS: MICAFUNGIN SODIUM 100 MG in IV NS 0.9% 100 ML IV SCH (20:28)
[2019-07-13] MEDS: POLYVINYL ALCOHOL 15 ML BOTTLE EACHEYE SCH ×5 (00:43→23:44)
[2019-07-13] MEDS: INSULIN ASPART/LISPRO 100 UNIT/ML CARTRIDGE SQ PRN ×5 (00:46→23:45)
[2019-07-13 00:59] VITALS: BP 127/68
[2019-07-13] MEDS: METOCLOPRAMIDE HCL 10 MG TABLET GT SCH ×3 (05:36→21:57)
[2019-07-13] MEDS: OMEPRAZOLE 20 MG CAPSULE.DR GT SCH (05:36)
[2019-07-13] MEDS: BLOOD SUGAR DIAGNOSTIC 1 EACH STRIP IN SCH ×4 (05:36→23:44)
[2019-07-13 06:16] VITALS: BP 139/58
[2019-07-13 06:57] LABS: CALCIUM, SERUM 8.7 mg/dL (8.5-10.1); CREATININE 3.3 mg/dL (0.6-1.3); POTASSIUM 3.9 mmol/L (3.5-5.1)
[2019-07-13 07:38] VITALS: BP 113/61
[2019-07-13] MEDS: PROSOURCE / PROSTAT (PYXIS) 30 ML UDC GT SCH ×2 (08:46→17:05)
[2019-07-13] MEDS: SUCRALFATE 1 G/10 ML UDC GT SCH (08:46)
[2019-07-13] MEDS: LACTOBACILLUS RHAMNOSUS GG 1 EACH CAP.SPRINK GT SCH ×2 (08:46→17:05)
[2019-07-13] MEDS: VIT B CMPLX 3/FA/VIT C/BIOTIN 1 TAB TABLET GT SCH (08:46)
[2019-07-13] MEDS: NEUTRA PHOS 1 POWD.PACKET GT SCH (08:46)
[2019-07-13] MEDS: ASCORBIC ACID 500 MG TABLET GT SCH (08:49)
[2019-07-13] MEDS: ACETAMINOPHEN 650 MG/20.3 ML UDC GT SCH ×2 (08:49→21:57)
[2019-07-13] MEDS: ZINC SULFATE 220 MG CAPSULE GT SCH (08:49)
[2019-07-13] MEDS: METOPROLOL TARTRATE 50 MG TABLET GT SCH ×2 (09:00→21:53)
[2019-07-13] MEDS: MUPIROCIN OINT 2% 22 GM TUBE SCH ×2 (09:05→22:00)
[2019-07-13] MEDS: INSULIN GLARGINE,BASAGLAR 100 UNIT/ML INSULN.PEN SQ SCH ×2 (09:06→21:58)
[2019-07-13] MEDS: Z GUARD REMEDY 4 OZ OINT TP SCH ×2 (09:30→22:00)
[2019-07-13] MEDS: DAKINS HALF STRENGTH (0.25%) 480 ML BOTTLE TOP SCH ×2 (09:30→22:00)
[2019-07-13] MEDS: HYDROGEL DRESSING 90 GM TUBE TP SCH ×2 (09:30→22:00)
[2019-07-13] MEDS: AMMONIUM LACTATE 227 GM BOTTLE TP SCH ×2 (09:30→22:00)
[2019-07-13] MEDS: CADEXOMER IODINE 40 GM TUBE TP SCH ×4 (09:30→22:00)
[2019-07-13] MEDS: BETADINE 5% CREAM TP SCH ×2 (09:30→22:00)
[2019-07-13 12:00] VITALS: BP 129/79
--- NOTE | 2019-07-13 12:00 | NUR ---
Dr. Abbott mechanical maintenance foreman seen and examined resident's L foot wound. Necrosis increasing in size, she said that she will refer it to Dr. Madsen, vascular surgeon. Will inform
--- NOTE | 2019-07-13 12:30 | NUR ---
Resident went out for dialysis via [facility] per [facility] accompanied by 3 transport staff. Awake, stable vital signs. No s/s of resp distress. Trach secured and midline. On mechanical ventilator. Permacath intact, with dressing dry and clean. GT intact and patent. All emergency equipment taken.
--- NOTE | 2019-07-13 16:45 | NUR ---
Resident came back from dialysis via [facility] with transport staff. Awake, no s/s of distress. Appears comfortable. Permacath on right upper chest wall intact, with dressing dry and clean. No bleeding noted. Trach secured and midline. On mech. vent. Transferred to bed and made comfortable. Vital signs stable. Will continue to monitor.
--- NOTE | 2019-07-13 17:10 | NUR ---
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 Cale MD has seen photo of the wound. According to Dr. Madsen, most likely the patient will need above the knee amputation. He said that if family can give a consent, he can do the surgery tomorrow. Spoke with Christine and inform her of the plan to do L above the knee amputation. She requested MD to call her. Dr. Madsen informed.
--- NOTE | 2019-07-13 17:46 | NUR ---
Dr. Madsen and family has spoken on the phone and according to Christine, she asked all the question she have in mind to MD and he answered them in a professional way. Christine will come tonight and sign consent. Dr. Madsen gave an order to do type and screen, AM labs and L femur X-ray and NPO after midnight. Dr. Madsen notified nursing supervisor correspondence section of scheduled surgery tomorrow. Endorsed to incoming shift.
[2019-07-13 18:00] VITALS: BP 135/85
[2019-07-13] MEDS: NEPRO 1,000 ML BOTTLE GT PRN (18:21)
[2019-07-13 20:18] VITALS: BP 125/73
--- NOTE | 2019-07-13 20:23 | NUR ---
Notified Dr. Dia regarding surgery for tomorrow for Above left knee amputation ,new order to start 1/2 NS 50 ml/hr for hydration after midnight ,pt will be NPO.
[2019-07-13] MEDS: MICAFUNGIN SODIUM 100 MG in IV NS 0.9% 100 ML IV SCH (21:00)
[2019-07-13] MEDS: HYDROGEN PEROXIDE 480 ML BOTTLE TP SCH (21:00)
[2019-07-13] MEDS: NS 0.9% IV PRN (22:36)
[2019-07-13] MEDS: VANCOMYCIN 500 MG in IV D5W 100 ML IV PRN (22:36)
[2019-07-13] MEDS: AMIKACIN IV PRN (22:36)
[2019-07-14] VITALS (7 sets, daily range): BP systolic 107–143; BP diastolic 46–77
[2019-07-14] MEDS ORDERED: IV 1/2NS 1000 ML 1,000 ML IV PRN
[2019-07-14] MEDS: BLOOD SUGAR DIAGNOSTIC 1 EACH STRIP IN SCH ×4 (00:20→16:40)
[2019-07-14] MEDS: METOCLOPRAMIDE HCL 10 MG TABLET GT SCH ×3 (05:00→21:06)
[2019-07-14] MEDS: OMEPRAZOLE 20 MG CAPSULE.DR GT SCH (05:40)
[2019-07-14] MEDS: POLYVINYL ALCOHOL 15 ML BOTTLE EACHEYE SCH ×3 (05:40→17:15)
[2019-07-14] MEDS: INSULIN ASPART/LISPRO 100 UNIT/ML CARTRIDGE SQ PRN (05:41)
[2019-07-14 06:47] LABS: BASOPHILS # (AUTO) 0.1 /CMM (0.0-0.2); BASOPHILS % (AUTO) 0.5 % (0.0-2.0); HEMATOCRIT 27 % (39-51); HEMOGLOBIN 8.5 g/dL (13.5-17.5); LYMPHOCYTES # (AUTO) 4.2 /CMM (0.8-4.8); LYMPHOCYTES % (AUTO) 16.7 % (20.0-44.0); MEAN CORPUSCULAR HGB CONC 31 g/dl (31.0-36.0); MEAN CORPUSCULAR VOLUME 93 fL (80-96); MONOCYTES # (AUTO) 1.7 /CMM (0.1-1.30); MONOCYTES % (AUTO) 6.8 % (2.0-12.0); PLATELET COUNT (AUTO) 538 /CMM (150-450); RED BLOOD CELL COUNT(AUTO) 2.96 MIL/uL (4.5-6.0); WHITE BLOOD COUNT (AUTO) 25.3 K/uL (4.3-11.0)
[2019-07-14 06:58] LABS: CALCIUM, SERUM 8.4 mg/dL (8.5-10.1); CREATININE 2.1 mg/dL (0.6-1.3)
[2019-07-14] MEDS: MUPIROCIN OINT 2% 22 GM TUBE SCH ×2 (09:00→22:00)
[2019-07-14] MEDS: INSULIN GLARGINE,BASAGLAR 100 UNIT/ML INSULN.PEN SQ SCH (09:00)
[2019-07-14] MEDS: HYDROGEN PEROXIDE 480 ML BOTTLE TP SCH ×2 (09:45→20:42)
[2019-07-14] MEDS: SUCRALFATE 1 G/10 ML UDC GT SCH (09:46)
[2019-07-14] MEDS: ASCORBIC ACID 500 MG TABLET GT SCH (09:46)
[2019-07-14] MEDS: METOPROLOL TARTRATE 50 MG TABLET GT SCH ×2 (09:46→21:06)
[2019-07-14] MEDS: NEUTRA PHOS 1 POWD.PACKET GT SCH (09:46)
[2019-07-14] MEDS: LACTOBACILLUS RHAMNOSUS GG 1 EACH CAP.SPRINK GT SCH ×2 (09:46→16:40)
[2019-07-14] MEDS: PROSOURCE / PROSTAT (PYXIS) 30 ML UDC GT SCH ×2 (09:46→16:40)
[2019-07-14] MEDS: VIT B CMPLX 3/FA/VIT C/BIOTIN 1 TAB TABLET GT SCH (09:46)
[2019-07-14] MEDS: ZINC SULFATE 220 MG CAPSULE GT SCH (09:46)
[2019-07-14] MEDS: ACETAMINOPHEN 650 MG/20.3 ML UDC GT SCH ×2 (09:46→21:06)
--- NOTE | 2019-07-14 10:00 | NUR ---
Informed Dr Dia that pt's blood sugar is 99. Pt NPO for surgery. Dr Dia ordered to hold John zhu.
[2019-07-14] MEDS: Z GUARD REMEDY 4 OZ OINT TP SCH ×2 (10:15→22:00)
[2019-07-14] MEDS: KETOCONAZOLE SHAMPOO 120 ML BOTTLE TP SCH (10:15)
[2019-07-14] MEDS: CADEXOMER IODINE 40 GM TUBE TP SCH ×4 (10:15→22:00)
[2019-07-14] MEDS: AMMONIUM LACTATE 227 GM BOTTLE TP SCH ×2 (10:15→22:00)
[2019-07-14] MEDS: BETADINE 5% CREAM TP SCH ×2 (10:15→22:00)
[2019-07-14] MEDS: DAKINS HALF STRENGTH (0.25%) 480 ML BOTTLE TOP SCH ×2 (10:15→22:00)
[2019-07-14] MEDS: HYDROGEL DRESSING 90 GM TUBE TP SCH ×2 (10:15→22:00)
--- NOTE | 2019-07-14 12:57 | NUR ---
Relayed K 3.[address] Dia. He ordered to give Potassium Chloride 40 mEQ via GT x 1.
[2019-07-14] MEDS ORDERED: POTASSIUM CHLORIDE 20 MEQ POWDER PACKET GT ONE (13:30)
--- NOTE | 2019-07-14 13:35 | NUR ---
Victoriano from Surgery Department informed charge nurse that Dr Madsen rescheduled pt's left AKA to 07/21/[address] Dia and pt's daughter Christine. Dr Dia ordered to DC NPO, DC 1/2 NS IV, and resume Basaglar insulin.
[2019-07-14] MEDS: [UNRECOGNIZED DRUG - OTHER] SQ SCH (14:30)
[2019-07-14] MEDS: NEPRO 1,000 ML BOTTLE GT PRN (17:15)
--- NOTE | 2019-07-14 19:40 | NUR ---
RT NOTE PATIENT RECEIVED TRACH'D IN STABLE CONDITION. PATIENT TOLERATING CURRENT ORDERED VENT SETTINGS. NO SIGNS OF RESPIRATORY DISTRESS NOTED. TRACH IS PATENT AND SECURE. ALARMS ARE SET AND AUDIBLE. VENT IS PLUGGED INTO RED OUTLET. EMERGENCY EQUIPMENT IS AT PATIENT BEDSIDE. WILL CONTINUE TO MONITOR. Addendum: 07/14/19 at [address] RT Amended: Links added.
[2019-07-14] MEDS: MICAFUNGIN SODIUM 100 MG in IV NS 0.9% 100 ML IV SCH (21:21)
[2019-07-15] VITALS (8 sets, daily range): BP systolic 103–136; BP diastolic 50–76
[2019-07-15] MEDS: POLYVINYL ALCOHOL 15 ML BOTTLE EACHEYE SCH ×5 (00:14→23:26)
[2019-07-15] MEDS: INSULIN ASPART/LISPRO 100 UNIT/ML CARTRIDGE SQ PRN ×4 (00:17→23:27)
[2019-07-15] MEDS: [UNRECOGNIZED DRUG - OTHER] SQ SCH ×2 (03:24→18:00)
[2019-07-15] MEDS: METOCLOPRAMIDE HCL 10 MG TABLET GT SCH ×3 (05:29→21:21)
[2019-07-15] MEDS: BLOOD SUGAR DIAGNOSTIC 1 EACH STRIP IN SCH ×4 (05:29→23:26)
[2019-07-15] MEDS: OMEPRAZOLE 20 MG CAPSULE.DR GT SCH (05:29)
[2019-07-15 06:47] LABS: CALCIUM, SERUM 8.3 mg/dL (8.5-10.1); POTASSIUM 3.4 mmol/L (3.5-5.1)
[2019-07-15] MEDS: HYDROGEN PEROXIDE 480 ML BOTTLE TP SCH ×2 (07:59→21:07)
[2019-07-15] MEDS: LACTOBACILLUS RHAMNOSUS GG 1 EACH CAP.SPRINK GT SCH ×2 (09:37→18:00)
[2019-07-15] MEDS: METOPROLOL TARTRATE 50 MG TABLET GT SCH ×2 (09:37→21:21)
[2019-07-15] MEDS: SUCRALFATE 1 G/10 ML UDC GT SCH (09:37)
[2019-07-15] MEDS: VIT B CMPLX 3/FA/VIT C/BIOTIN 1 TAB TABLET GT SCH (09:38)
[2019-07-15] MEDS: ZINC SULFATE 220 MG CAPSULE GT SCH (09:38)
[2019-07-15] MEDS: ACETAMINOPHEN 650 MG/20.3 ML UDC GT SCH ×2 (09:38→21:21)
[2019-07-15] MEDS: PROSOURCE / PROSTAT (PYXIS) 30 ML UDC GT SCH ×2 (09:38→18:00)
[2019-07-15] MEDS: ASCORBIC ACID 500 MG TABLET GT SCH (09:38)
[2019-07-15] MEDS: NEUTRA PHOS 1 POWD.PACKET GT SCH (09:38)
[2019-07-15] MEDS: BETADINE 5% CREAM TP SCH ×2 (10:10→21:22)
[2019-07-15] MEDS: Z GUARD REMEDY 4 OZ OINT TP SCH ×2 (10:10→21:22)
[2019-07-15] MEDS: CADEXOMER IODINE 40 GM TUBE TP SCH ×4 (10:10→21:22)
[2019-07-15] MEDS: HYDROGEL DRESSING 90 GM TUBE TP SCH ×2 (10:10→21:22)
[2019-07-15] MEDS: DAKINS HALF STRENGTH (0.25%) 480 ML BOTTLE TOP SCH ×2 (10:10→21:21)
[2019-07-15] MEDS: MUPIROCIN OINT 2% 22 GM TUBE SCH ×2 (10:10→21:21)
[2019-07-15] MEDS: AMMONIUM LACTATE 227 GM BOTTLE TP SCH ×2 (10:10→21:22)
--- NOTE | 2019-07-15 18:36 | NUR ---
RT NOTE: RECEIVED PT ON NOTED ORDERED VENT SETTINGS. @1235 PT LEFT FOR HEMODIALYSIS TX. PT ARRIVE BACK TO FACILITY AFTER TX NO RESPIRATORY DISTRESS NOTED. TRACH CHECKED SECURE AND PATENT. SXD AND LAVAGED PT Q ROUND AND NEEDED. TRACH CARE DONE. SPARE TRACH AND AMBU BAG @ BEDSIDE. ALARMS CHECKED ON AND AUDIBLE.
--- NOTE | 2019-07-15 19:50 | NUR ---
Seen and examined by Dr. Dia with no new order.
[2019-07-15] MEDS: MICAFUNGIN SODIUM 100 MG in IV NS 0.9% 100 ML IV SCH (21:02)
[2019-07-15] MEDS: NS 0.9% IV PRN (21:03)
[2019-07-15] MEDS: VANCOMYCIN 500 MG in IV D5W 100 ML IV PRN (21:03)
[2019-07-15] MEDS: AMIKACIN IV PRN (21:03)
[2019-07-16] VITALS (7 sets, daily range): BP systolic 116–141; BP diastolic 56–74
[2019-07-16] MEDS: [UNRECOGNIZED DRUG - OTHER] SQ SCH ×2 (03:21→17:51)
--- NOTE | 2019-07-16 05:19 | NUR ---
RT Patient remained on continuous vent support on noted vent settings.Patient stable throughout the shift. Trach is patent and secured.Will continue to monitor. Addendum: 07/16/19 at 0520 by ANTONI SANTACRUZ RT Amended: Links added.
[2019-07-16] MEDS: METOCLOPRAMIDE HCL 10 MG TABLET GT SCH ×3 (05:49→21:30)
[2019-07-16] MEDS: BLOOD SUGAR DIAGNOSTIC 1 EACH STRIP IN SCH ×4 (05:49→23:31)
[2019-07-16] MEDS: OMEPRAZOLE 20 MG CAPSULE.DR GT SCH (05:50)
[2019-07-16] MEDS: POLYVINYL ALCOHOL 15 ML BOTTLE EACHEYE SCH ×4 (05:50→23:32)
[2019-07-16] MEDS: INSULIN ASPART/LISPRO 100 UNIT/ML CARTRIDGE SQ PRN ×3 (05:51→23:33)
[2019-07-16] MEDS: HYDROGEN PEROXIDE 480 ML BOTTLE TP SCH ×2 (07:25→21:00)
[2019-07-16 07:33] LABS: CALCIUM, SERUM 8.4 mg/dL (8.5-10.1); CREATININE 2.2 mg/dL (0.6-1.3)
[2019-07-16 07:37] LABS: POTASSIUM 2.7 mmol/L (3.5-5.1)
--- NOTE | 2019-07-16 08:09 | NUR ---
Notified Dr. Dia of BMP result with K+ 2.7, new order to give 40emq of KCL x 1/GT. Order carried out.
[2019-07-16] MEDS ORDERED: POTASSIUM CHLORIDE 20 MEQ POWDER PACKET GT ONE (09:00)
[2019-07-16] MEDS: LACTOBACILLUS RHAMNOSUS GG 1 EACH CAP.SPRINK GT SCH ×2 (09:54→17:48)
[2019-07-16] MEDS: SUCRALFATE 1 G/10 ML UDC GT SCH (09:54)
[2019-07-16] MEDS: MUPIROCIN OINT 2% 22 GM TUBE SCH ×2 (09:57→21:30)
[2019-07-16] MEDS: ZINC SULFATE 220 MG CAPSULE GT SCH (09:57)
[2019-07-16] MEDS: METOPROLOL TARTRATE 50 MG TABLET GT SCH ×2 (09:57→21:30)
[2019-07-16] MEDS: ACETAMINOPHEN 650 MG/20.3 ML UDC GT SCH ×2 (09:57→21:30)
[2019-07-16] MEDS: PROSOURCE / PROSTAT (PYXIS) 30 ML UDC GT SCH ×2 (09:57→17:48)
[2019-07-16] MEDS: VIT B CMPLX 3/FA/VIT C/BIOTIN 1 TAB TABLET GT SCH (09:57)
[2019-07-16] MEDS: NEUTRA PHOS 1 POWD.PACKET GT SCH (09:57)
[2019-07-16] MEDS: ASCORBIC ACID 500 MG TABLET GT SCH (09:57)
[2019-07-16] MEDS: AMMONIUM LACTATE 227 GM BOTTLE TP SCH ×2 (10:30→21:31)
[2019-07-16] MEDS: CADEXOMER IODINE 40 GM TUBE TP SCH ×4 (10:30→21:31)
[2019-07-16] MEDS: HYDROGEL DRESSING 90 GM TUBE TP SCH ×2 (10:30→21:31)
[2019-07-16] MEDS: Z GUARD REMEDY 4 OZ OINT TP SCH ×2 (10:30→21:31)
[2019-07-16] MEDS: BETADINE 5% CREAM TP SCH ×2 (10:30→21:31)
[2019-07-16] MEDS: DAKINS HALF STRENGTH (0.25%) 480 ML BOTTLE TOP SCH ×2 (10:30→21:30)
--- NOTE | 2019-07-16 11:16 | NUR ---
Charge nurse relay the result of BMP, EKG, ABG, Magnesium, and phosphorus to the Dr. Sherwood. No new order. will to closely monitor.
[2019-07-16] MEDS: NEPRO 1,000 ML BOTTLE GT PRN (12:34)
--- NOTE | 2019-07-16 16:34 | NUR ---
RT NOTE: RECEIVED PT ON NOTED ORDERED VENT SETTINGS. TRACH CHECKED SECURE AND PATENT. SXD AND LAVAGED PT Q ROUND AND NEEDED. TRACH CARE DONE. SPARE TRACH AND AMBU BAG @ BEDSIDE. ALARMS CHECKED ON AND AUDIBLE.
[2019-07-16] MEDS: MICAFUNGIN SODIUM 100 MG in IV NS 0.9% 100 ML IV SCH (21:00)
[2019-07-16] MEDS ORDERED: [UNRECOGNIZED DRUG - OTHER] SQ SCH (21:00)
--- NOTE | 2019-07-16 22:00 | NUR ---
While charge nurse is making round, notice patient with increase PC=279k and increase RR=50. Patient with work of breathing. Charge nurse suction the patient with small think yellowish secretion. trach tube intact and patent. repositioned for comfort. will continue to monitor.
--- NOTE | 2019-07-16 22:11 | NUR ---
patient remain with tachycardia and tachypnea. charge nurse called rapid responds. crash cart at bedside patient put on monitor. 1min later LITHOGRAPHIC STRIPPER RT arrived with ICU charge nurse and nursing renovation plant supervisor. Assessment done by ICU charge nurse. ICU nurse ordered ABG, EKG, BMP, Magnesium, and Phosphorus.
--- NOTE | 2019-07-16 22:35 | NUR ---
Charge nurse called the on [facility] doctor but unable to get in touch with Dr. Mckeon. Charge nurse JOSE F Ivan. regarding patient's condition. will wait for respond.
--- NOTE | 2019-07-16 22:38 | NUR ---
Dr.Tim Ivan responded with new order to take Temperature rectally. Charge nurse updated Dr. Ivan of new vital signs DF=234/101 DY=318 RR=23 and rectal temperature of 101.9. new order to give Motrin 600mg x1 and metoprolol 50mg x1. will continue to monitor.
[2019-07-16 22:44] LABS: CALCIUM, SERUM 8.8 mg/dL (8.5-10.1); CREATININE 2.7 mg/dL (0.6-1.3); POTASSIUM 4.3 mmol/L (3.5-5.1)
--- NOTE | 2019-07-16 22:45 | NUR ---
Metoprolol 50mg given and Motrin 600mg given. will continue to monitor
[2019-07-16 22:48] LABS: MAGNESIUM 2.1 mg/dL (1.8-2.4)
--- NOTE | 2019-07-16 23:00 | NUR ---
Called family to update on patient's condition, left a message to call back.
[2019-07-16 23:18] LABS: ABG BASE EXCESS -6.6 mmol/L; ABG OXYGEN SATURATION 97.5 % (92.0-98.5); ABG PCO2 24.1 mmHg (35.0-45.0); ABG PH 7.445 (7.350-7.450); ABG PO2 94.9 mmHg (75.0-100.0); AaDO2 150.3 mmHg; COHb 0.8 % (0.5-1.5); MetHb 0.1 % (0.0-1.5); O2Hb 96.6 % (94.0-97.0); PEEP,BG 0 cm H2O; SITE, ABG Left Radial; VT, ABG 500 mL
--- NOTE | 2019-07-16 23:26 | NUR ---
@2211 Rapid response was called for pt, Rt responded, ABG and EKG done, ABG results are 7.44,24,94,16 @ 30% FiO2, will continue to monitor Addendum: 07/16/19 at 2328 by LAYLA PENA RT Amended: Links added.
[2019-07-17] VITALS (7 sets, daily range): BP systolic 105–128; BP diastolic 50–90
--- NOTE | 2019-07-17 00:51 | NUR ---
Charge nurse receive a phone call from the family member. Spoke with Adrienne. Charge nurse updated her and informed her of the FANCY PACKER. patient is asleep. calm. GK=933 RR=23. will continue to monitor
--- NOTE | 2019-07-17 05:00 | NUR ---
Patient remained asleep and calm. AA=981/90, KL=180, RR=21, Iovq=224.0. will continue to monitor. cooling measure remains.
[2019-07-17] MEDS: BLOOD SUGAR DIAGNOSTIC 1 EACH STRIP IN SCH ×4 (05:42→23:48)
[2019-07-17] MEDS: METOCLOPRAMIDE HCL 10 MG TABLET GT SCH ×3 (05:42→21:20)
[2019-07-17] MEDS: POLYVINYL ALCOHOL 15 ML BOTTLE EACHEYE SCH ×4 (05:42→23:48)
[2019-07-17] MEDS: OMEPRAZOLE 20 MG CAPSULE.DR GT SCH (05:44)
[2019-07-17] MEDS: [UNRECOGNIZED DRUG - OTHER] SQ SCH ×2 (05:45→17:29)
[2019-07-17] MEDS: INSULIN ASPART/LISPRO 100 UNIT/ML CARTRIDGE SQ PRN ×4 (05:49→23:49)
[2019-07-17] MEDS: ONDANSETRON 4 MG TAB.RAPDIS GT PRN (06:30)
[2019-07-17] MEDS: CADEXOMER IODINE 40 GM TUBE TP SCH ×4 (09:00→21:20)
[2019-07-17] MEDS: BETADINE 5% CREAM TP SCH ×2 (09:00→21:21)
[2019-07-17] MEDS: HYDROGEL DRESSING 90 GM TUBE TP SCH ×2 (09:00→21:20)
[2019-07-17] MEDS: MUPIROCIN OINT 2% 22 GM TUBE SCH ×2 (09:00→21:20)
[2019-07-17] MEDS: AMMONIUM LACTATE 227 GM BOTTLE TP SCH ×2 (09:00→21:20)
[2019-07-17] MEDS: DAKINS HALF STRENGTH (0.25%) 480 ML BOTTLE TOP SCH ×2 (09:00→21:20)
[2019-07-17] MEDS: Z GUARD REMEDY 4 OZ OINT TP SCH ×2 (09:00→21:21)
[2019-07-17] MEDS: HYDROGEN PEROXIDE 480 ML BOTTLE TP SCH ×2 (09:00→21:20)
[2019-07-17] MEDS: ZINC SULFATE 220 MG CAPSULE GT SCH (09:17)
[2019-07-17] MEDS: ACETAMINOPHEN 650 MG/20.3 ML UDC GT SCH ×2 (09:17→21:20)
[2019-07-17] MEDS: LACTOBACILLUS RHAMNOSUS GG 1 EACH CAP.SPRINK GT SCH ×2 (09:17→17:28)
[2019-07-17] MEDS: METOPROLOL TARTRATE 50 MG TABLET GT SCH ×2 (09:17→21:00)
[2019-07-17] MEDS: PROSOURCE / PROSTAT (PYXIS) 30 ML UDC GT SCH ×2 (09:17→17:28)
[2019-07-17] MEDS: SUCRALFATE 1 G/10 ML UDC GT SCH (09:17)
[2019-07-17] MEDS: ASCORBIC ACID 500 MG TABLET GT SCH (09:17)
[2019-07-17] MEDS: NEUTRA PHOS 1 POWD.PACKET GT SCH (09:17)
[2019-07-17] MEDS: VIT B CMPLX 3/FA/VIT C/BIOTIN 1 TAB TABLET GT SCH (09:17)
[2019-07-17] MEDS: NEPRO 1,000 ML BOTTLE GT PRN (18:22)
[2019-07-17] MEDS: MICAFUNGIN SODIUM 100 MG in IV NS 0.9% 100 ML IV SCH (21:00)
[2019-07-18] VITALS (7 sets, daily range): BP systolic 96–122; BP diastolic 57–77
[2019-07-18] MEDS: BLOOD SUGAR DIAGNOSTIC 1 EACH STRIP IN SCH ×4 (05:51→23:08)
[2019-07-18] MEDS: POLYVINYL ALCOHOL 15 ML BOTTLE EACHEYE SCH ×4 (05:51→23:08)
[2019-07-18] MEDS: OMEPRAZOLE 20 MG CAPSULE.DR GT SCH (05:51)
[2019-07-18] MEDS: METOCLOPRAMIDE HCL 10 MG TABLET GT SCH ×3 (05:51→21:17)
[2019-07-18] MEDS: [UNRECOGNIZED DRUG - OTHER] SQ SCH ×2 (05:52→17:40)
[2019-07-18] MEDS: INSULIN ASPART/LISPRO 100 UNIT/ML CARTRIDGE SQ PRN ×3 (05:53→23:09)
[2019-07-18] MEDS: ASCORBIC ACID 500 MG TABLET GT SCH (09:00)
[2019-07-18] MEDS: VIT B CMPLX 3/FA/VIT C/BIOTIN 1 TAB TABLET GT SCH (09:00)
[2019-07-18] MEDS: HYDROGEN PEROXIDE 480 ML BOTTLE TP SCH ×2 (09:00→20:12)
[2019-07-18] MEDS: SUCRALFATE 1 G/10 ML UDC GT SCH (09:00)
[2019-07-18] MEDS: ZINC SULFATE 220 MG CAPSULE GT SCH (09:00)
[2019-07-18] MEDS: NEUTRA PHOS 1 POWD.PACKET GT SCH (09:00)
[2019-07-18] MEDS: METOPROLOL TARTRATE 50 MG TABLET GT SCH ×2 (09:00→21:00)
[2019-07-18] MEDS: PROSOURCE / PROSTAT (PYXIS) 30 ML UDC GT SCH ×2 (09:00→17:37)
[2019-07-18] MEDS: LACTOBACILLUS RHAMNOSUS GG 1 EACH CAP.SPRINK GT SCH ×2 (09:00→17:37)
[2019-07-18] MEDS: ACETAMINOPHEN 650 MG/20.3 ML UDC GT SCH ×2 (10:30→21:17)
[2019-07-18] MEDS: AMMONIUM LACTATE 227 GM BOTTLE TP SCH ×2 (11:00→21:17)
[2019-07-18] MEDS: HYDROGEL DRESSING 90 GM TUBE TP SCH ×2 (11:00→21:17)
[2019-07-18] MEDS: DAKINS HALF STRENGTH (0.25%) 480 ML BOTTLE TOP SCH ×2 (11:00→21:17)
[2019-07-18] MEDS: MUPIROCIN OINT 2% 22 GM TUBE SCH ×2 (11:00→21:17)
[2019-07-18] MEDS: BETADINE 5% CREAM TP SCH ×2 (11:00→21:18)
[2019-07-18] MEDS: CADEXOMER IODINE 40 GM TUBE TP SCH ×4 (11:00→21:17)
[2019-07-18] MEDS: Z GUARD REMEDY 4 OZ OINT TP SCH ×2 (11:00→21:18)
--- NOTE | 2019-07-18 12:50 | NUR ---
Pt has not received flu vaccine yet. Pt on antibiotic therapy and has had low grade fevers. Dr Aj hancock.
--- NOTE | 2019-07-18 14:43 | NUR ---
RT NOTE PT REMAINS MECHANICALLY VENTILATED VIA CUFFED TRACHEOSTOMY TUBE. CUFF INFLATED. TRACH TUBE MIDLINE AND SECURE. VENTILATOR SETTINGS PRESCRIBED. ALARMS SET PER PROTOCOL AND AUDIBLE. VENT PLUGGED IN TO RED OUTLET. AMBU BAG AT BED SIDE. NO DISTRESS NOTED. Addendum: 07/18/19 at 1443 by HILLARY SANTACRUZ RT Amended: Links added.
[2019-07-18] MEDS: NS 0.9% IV PRN (21:13)
[2019-07-18] MEDS: MICAFUNGIN SODIUM 100 MG in IV NS 0.9% 100 ML IV SCH (21:13)
[2019-07-18] MEDS: AMIKACIN IV PRN (21:13)
[2019-07-18] MEDS: VANCOMYCIN 500 MG in IV D5W 100 ML IV PRN (21:14)
[2019-07-19] VITALS (8 sets, daily range): BP systolic 109–125; BP diastolic 47–67
--- NOTE | 2019-07-19 03:48 | NUR ---
RT NOTE Pt rec'd trached on [facility] vent on AC mode. No resp distress or sob noted. Trach is patent and secured. Sx'd for thick small amt of pale yellow secretions. Vent plugged into red outlet. Alarms are set and audible. Ambu bag bedside. Will continue to monitor. Addendum: 07/19/19 at 0349 by MANISH DOMINGUEZ RT Amended: Links added.
[2019-07-19] MEDS: OMEPRAZOLE 20 MG CAPSULE.DR GT SCH (05:11)
[2019-07-19] MEDS: POLYVINYL ALCOHOL 15 ML BOTTLE EACHEYE SCH ×4 (05:11→23:04)
[2019-07-19] MEDS: BLOOD SUGAR DIAGNOSTIC 1 EACH STRIP IN SCH ×4 (05:11→23:04)
[2019-07-19] MEDS: METOCLOPRAMIDE HCL 10 MG TABLET GT SCH ×3 (05:11→21:18)
[2019-07-19] MEDS: [UNRECOGNIZED DRUG - OTHER] SQ SCH (05:13)
[2019-07-19] MEDS: INSULIN ASPART/LISPRO 100 UNIT/ML CARTRIDGE SQ PRN ×4 (05:15→23:04)
[2019-07-19] MEDS: ASCORBIC ACID 500 MG TABLET GT SCH (09:24)
[2019-07-19] MEDS: ZINC SULFATE 220 MG CAPSULE GT SCH (09:24)
[2019-07-19] MEDS: LACTOBACILLUS RHAMNOSUS GG 1 EACH CAP.SPRINK GT SCH ×2 (09:24→17:27)
[2019-07-19] MEDS: PROSOURCE / PROSTAT (PYXIS) 30 ML UDC GT SCH ×2 (09:24→17:27)
[2019-07-19] MEDS: METOPROLOL TARTRATE 50 MG TABLET GT SCH ×2 (09:24→21:18)
[2019-07-19] MEDS: VIT B CMPLX 3/FA/VIT C/BIOTIN 1 TAB TABLET GT SCH (09:24)
[2019-07-19] MEDS: NEUTRA PHOS 1 POWD.PACKET GT SCH (09:24)
[2019-07-19] MEDS: MUPIROCIN OINT 2% 22 GM TUBE SCH ×2 (09:24→21:18)
[2019-07-19] MEDS: SUCRALFATE 1 G/10 ML UDC GT SCH (09:24)
[2019-07-19] MEDS: HYDROGEN PEROXIDE 480 ML BOTTLE TP SCH ×2 (10:00→21:00)
[2019-07-19] MEDS: AMMONIUM LACTATE 227 GM BOTTLE TP SCH ×2 (12:01→21:19)
--- NOTE | 2019-07-19 12:40 | NUR ---
Confirmed the scheduled left above the knee amputation on July 21, 2019 with vascular surgeon, Dr. Madsen. gave an order to do pre-op labs on morning. Order carried out. According to surgery department, resident is not on schedule for . Dr. Madsen informed.
[2019-07-19] MEDS: ACETAMINOPHEN 650 MG/20.3 ML UDC GT SCH ×2 (13:08→21:18)
[2019-07-19] MEDS: BETADINE 5% CREAM TP SCH ×2 (14:00→21:19)
[2019-07-19] MEDS: Z GUARD REMEDY 4 OZ OINT TP SCH ×2 (14:00→21:20)
[2019-07-19] MEDS: DAKINS HALF STRENGTH (0.25%) 480 ML BOTTLE TOP SCH ×2 (14:00→21:19)
[2019-07-19] MEDS: HYDROGEL DRESSING 90 GM TUBE TP SCH ×2 (14:00→21:19)
[2019-07-19] MEDS: CADEXOMER IODINE 40 GM TUBE TP SCH ×4 (14:00→21:19)
--- NOTE | 2019-07-19 14:12 | NUR ---
Dr. Madsen and surgery department confirmed surgery at 1200 on July 21, 2019.
--- NOTE | 2019-07-19 14:20 | NUR ---
Dr Dia ordered to give 1/2 NS at 50 mL/hr while NPO prior to surgery on 07/21/19. He also ordered to hold Basaglar kwikpen while NPO.
--- NOTE | 2019-07-19 14:35 | NUR ---
Dr. Dia made aware of L above the knee amputation surgery on Jul 21, 2019, with order to give IVF 1/2 NS at 50 cc/hr while on NPO status, Order carried out.
[2019-07-19] MEDS ORDERED: IV 1/2NS 1000 ML 1,000 ML IV PRN (15:00)
[2019-07-19] MEDS ORDERED: INSULIN GLARGINE,BASAGLAR 100 UNIT/ML INSULN.PEN SQ SCH (18:05)
--- NOTE | 2019-07-19 20:58 | NUR ---
RT NOTE PT RECEIVED TRACHED ON MECHANICAL VENTILATION. AMBU BAG/BACK UP TRACH @ BEDSIDE. CUFF CHECKED VIA RADIAL SAW OPERATOR. SX DONE, TRACH SECURED AND PATENT. CONT. POX CONNECTED. VENT PLUGGED TO RED OUTLET. ALARMS ON AND AUDIBLE. WILL MONITOR T/O SHIFT. Addendum: 07/19/19 at 2058 by MARCIA YOUNG RT Amended: Links added.
[2019-07-19] MEDS: MICAFUNGIN SODIUM 100 MG in IV NS 0.9% 100 ML IV SCH (21:00)
[2019-07-20] VITALS (7 sets, daily range): BP systolic 118–125; BP diastolic 51–75
[2019-07-20] MEDS: METOCLOPRAMIDE HCL 10 MG TABLET GT SCH ×3 (05:11→21:42)
[2019-07-20] MEDS: BLOOD SUGAR DIAGNOSTIC 1 EACH STRIP IN SCH ×4 (05:11→23:23)
[2019-07-20] MEDS: OMEPRAZOLE 20 MG CAPSULE.DR GT SCH (05:11)
[2019-07-20] MEDS: POLYVINYL ALCOHOL 15 ML BOTTLE EACHEYE SCH ×4 (05:11→23:23)
[2019-07-20] MEDS: INSULIN ASPART/LISPRO 100 UNIT/ML CARTRIDGE SQ PRN ×4 (05:13→23:25)
--- NOTE | 2019-07-20 07:51 | NUR ---
RT NOTE PT RECEIVED TRACHED ON MECHANICAL VENTILATION. AMBU BAG/BACK UP TRACH @ BEDSIDE. CUFF CHECKED VIA BIOMETRICS ANALYST. TRACH SECURED AND PATENT. CONT. POX CONNECTED. VENT PLUGGED TO RED OUTLET. ALARMS ON AND AUDIBLE. WILL MONITOR. Addendum: 07/20/19 at 0751 by LESLY WARREN RT Amended: Links added.
[2019-07-20] MEDS: HYDROGEN PEROXIDE 480 ML BOTTLE TP SCH ×2 (08:09→20:35)
[2019-07-20] MEDS: VIT B CMPLX 3/FA/VIT C/BIOTIN 1 TAB TABLET GT SCH (08:31)
[2019-07-20] MEDS: SUCRALFATE 1 G/10 ML UDC GT SCH (08:31)
[2019-07-20] MEDS: NEUTRA PHOS 1 POWD.PACKET GT SCH (08:31)
[2019-07-20] MEDS: ACETAMINOPHEN 650 MG/20.3 ML UDC GT SCH ×2 (08:31→21:42)
[2019-07-20] MEDS: METOPROLOL TARTRATE 50 MG TABLET GT SCH ×2 (08:31→21:41)
[2019-07-20] MEDS: PROSOURCE / PROSTAT (PYXIS) 30 ML UDC GT SCH ×2 (08:31→17:37)
[2019-07-20] MEDS: LACTOBACILLUS RHAMNOSUS GG 1 EACH CAP.SPRINK GT SCH ×2 (08:31→17:37)
[2019-07-20] MEDS: MUPIROCIN OINT 2% 22 GM TUBE SCH ×2 (08:32→21:46)
[2019-07-20] MEDS: ZINC SULFATE 220 MG CAPSULE GT SCH (08:32)
[2019-07-20] MEDS: ASCORBIC ACID 500 MG TABLET GT SCH (08:32)
[2019-07-20] MEDS ORDERED: INSULIN GLARGINE,BASAGLAR 100 UNIT/ML INSULN.PEN SQ SCH (08:56)
[2019-07-20] MEDS: DAKINS HALF STRENGTH (0.25%) 480 ML BOTTLE TOP SCH ×2 (09:01→21:46)
[2019-07-20] MEDS: AMMONIUM LACTATE 227 GM BOTTLE TP SCH ×2 (09:01→21:46)
[2019-07-20] MEDS: CADEXOMER IODINE 40 GM TUBE TP SCH ×4 (09:01→21:46)
[2019-07-20] MEDS: BETADINE 5% CREAM TP SCH ×2 (09:01→21:46)
[2019-07-20] MEDS: Z GUARD REMEDY 4 OZ OINT TP SCH ×2 (09:01→21:46)
[2019-07-20] MEDS: HYDROGEL DRESSING 90 GM TUBE TP SCH ×2 (09:01→21:46)
--- NOTE | 2019-07-20 12:40 | NUR ---
Eyes open. Moist oral mucosa. Trach with vent working at prescribed settings. GT in place patent no residual. Tolerated GT formula well. HOB elevated. Aspiration precautions maintained. Right upper chest hemodialysis catheter with clean dressing. Left upper arm PICC line with clean dressing. Total care provided. All treatment done as ordered. On pain management and effective. Topical treatment done as ordered. Patient went for hemodialysis as ordered with two COSMETOLOGIST APPRENTICE and one RT. Transportation ambulance with ari. All needs met and attended.
--- NOTE | 2019-07-20 17:00 | NUR ---
Eyes open. Moist oral mucosa. Trach with vent working at prescribed settings. GT in place patent no residual. Tolerating GT formula well. HOB elevated. Aspiration precaution maintained. Right upper chest hemodialysis catheter with clean dressing. Patient returned from hemodialysis as ordered with two BUILDING SERVICES ENGINEER and one RT transportation ambulance and gurney. Total care provided. Kept clean and comfortable.
--- NOTE | 2019-07-20 17:45 | NUR ---
RT NOTE RECEIVED PT MECHANICALLY VENTILATED VIA CUFFED TRACHEOSTOMY TUBE. CUFF INFLATED. TRACH TUBE MIDLINE AND SECURE. VENTILATOR SETTINGS PRESCRIBED. ALARMS SET PER PROTOCOL AND AUDIBLE. VENT PLUGGED IN TO RED OUTLET. AMBU BAG AND BACK UP TRACH AT BED SIDE. NO DISTRESS NOTED. PT RETURNED TO FACILITY FROM DIALYSIS. Addendum: 07/20/19 at 1746 by HILLARY SANTACRUZ RT Amended: Links added.
--- NOTE | 2019-07-20 20:48 | NUR ---
PT RCVD SARAH'D ON MECHANICAL VENT WITH CHARTED SETTINGS. SX DONE. PT TRACH IS PATENT AND SECURE. VENT ALARMS APPEAR TO BE FUNCTIONING PROPERLY. VENT PLUGGED INTO RED OUTLET. AMBU BAG AT BEDSIDE. NO SOB NOTED. Addendum: 07/20/19 at 2047 by OLAMIDE LANDIN RT Amended: Links added.
--- NOTE | 2019-07-20 21:05 | NUR ---
Daughter Christine Bravo (RP) signed consent for Left above the knee amputation surgery and consent for anesthesia.
[2019-07-21] MEDS ORDERED: IV 1/2NS 1000 ML 1,000 ML IV PRN
--- NOTE | 2019-07-21 | NUR ---
Patient NPO,started IVF 1/2 NS 50ml/hr for Left above the knee amputation in the afternoon.Stable condition.Will continue to monitor.
[2019-07-21 00:20] VITALS: BP 113/55
[2019-07-21 04:30] VITALS: BP 138/54
[2019-07-21] MEDS: METOCLOPRAMIDE HCL 10 MG TABLET GT SCH ×2 (05:00→12:11)
[2019-07-21] MEDS: POLYVINYL ALCOHOL 15 ML BOTTLE EACHEYE SCH ×2 (05:25→12:00)
[2019-07-21] MEDS: OMEPRAZOLE 20 MG CAPSULE.DR GT SCH (05:25)
[2019-07-21] MEDS: BLOOD SUGAR DIAGNOSTIC 1 EACH STRIP IN SCH ×2 (05:25→11:00)
[2019-07-21] MEDS: INSULIN ASPART/LISPRO 100 UNIT/ML CARTRIDGE SQ PRN (05:29)
[2019-07-21 06:24] LABS: BASOPHILS # (AUTO) 0.1 /CMM (0.0-0.2); BASOPHILS % (AUTO) 0.9 % (0.0-2.0); EOSINOPHILS % (AUTO) 3.8 % (0.0-6.0); HEMATOCRIT 30 % (39-51); HEMOGLOBIN 9.3 g/dL (13.5-17.5); LYMPHOCYTES # (AUTO) 2.1 /CMM (0.8-4.8); LYMPHOCYTES % (AUTO) 12.8 % (20.0-44.0); MEAN CORPUSCULAR HGB CONC 31 g/dl (31.0-36.0); MEAN CORPUSCULAR VOLUME 92 fL (80-96); MONOCYTES # (AUTO) 1.2 /CMM (0.1-1.30); MONOCYTES % (AUTO) 7.1 % (2.0-12.0); NEUTROPHILS # (AUTO) 12.6 /CMM (1.8-8.9); NEUTROPHILS % (AUTO) 75.4 % (43.0-81.0); PLATELET COUNT (AUTO) 566 /CMM (150-450); RED BLOOD CELL COUNT(AUTO) 3.26 MIL/uL (4.5-6.0); WHITE BLOOD COUNT (AUTO) 16.7 K/uL (4.3-11.0)
[2019-07-21 06:35] LABS: CALCIUM, SERUM 8.4 mg/dL (8.5-10.1); CREATININE 2.2 mg/dL (0.6-1.3); POTASSIUM 3.2 mmol/L (3.5-5.1)
[2019-07-21 07:59] VITALS: BP 96/52
[2019-07-21 08:00] VITALS: BP 96/52
[2019-07-21] MEDS: ASCORBIC ACID 500 MG TABLET GT SCH (09:00)
[2019-07-21] MEDS: LACTOBACILLUS RHAMNOSUS GG 1 EACH CAP.SPRINK GT SCH (09:00)
[2019-07-21] MEDS: METOPROLOL TARTRATE 50 MG TABLET GT SCH (09:00)
[2019-07-21] MEDS: AMMONIUM LACTATE 227 GM BOTTLE TP SCH (09:00)
[2019-07-21] MEDS: PROSOURCE / PROSTAT (PYXIS) 30 ML UDC GT SCH (09:00)
[2019-07-21] MEDS: HYDROGEN PEROXIDE 480 ML BOTTLE TP SCH (09:00)
[2019-07-21] MEDS: DAKINS HALF STRENGTH (0.25%) 480 ML BOTTLE TOP SCH (09:00)
[2019-07-21] MEDS: CADEXOMER IODINE 40 GM TUBE TP SCH ×2 (09:00)
[2019-07-21] MEDS: BETADINE 5% CREAM TP SCH (09:00)
[2019-07-21] MEDS: NEUTRA PHOS 1 POWD.PACKET GT SCH (09:00)
[2019-07-21] MEDS: KETOCONAZOLE SHAMPOO 120 ML BOTTLE TP SCH (09:00)
[2019-07-21] MEDS: VIT B CMPLX 3/FA/VIT C/BIOTIN 1 TAB TABLET GT SCH (09:00)
[2019-07-21] MEDS: ACETAMINOPHEN 650 MG/20.3 ML UDC GT SCH (09:00)
[2019-07-21] MEDS: ZINC SULFATE 220 MG CAPSULE GT SCH (09:00)
[2019-07-21] MEDS: Z GUARD REMEDY 4 OZ OINT TP SCH (09:00)
[2019-07-21] MEDS: SUCRALFATE 1 G/10 ML UDC GT SCH (09:00)
[2019-07-21] MEDS: HYDROGEL DRESSING 90 GM TUBE TP SCH (09:00)
--- NOTE | 2019-07-21 09:37 | NUR ---
CBC and BMP result relayed to Dr. Dia, no new order given.
[2019-07-21] MEDS: MUPIROCIN OINT 2% 22 GM TUBE SCH (09:57)
[2019-07-21 10:25] LABS: BAND % (MANUAL) 7 % (0.0-5.0); EOSINOPHILS % (MANUAL) 2 % (0-4); LYMPHOCYTES % (MANUAL) 13 % (16-48); MONOCYTES % (MANUAL) 5 % (0-11.0); MYELOCYTES % 1 % (0-0); NEUTROPHILS % (MANUAL) 72 (42-76)
--- NOTE | 2019-07-21 11:10 | NUR ---
Resident sent to OR for scheduled AKA picked up by surgery staff per hospital bed. Awake, resp. even and unlabored. Skin warm and dry to touch. Trach secured and midline. On mechanical ventilator at 40% FIO2. GT intact and patent. Permacath on right chest wall intact, dressing dry and clean. PICC line on ABDIEL intact and patent. VS BP-96/52, WY-102, RR-18, Temp. 99.4, O2 sat. 100%. All paperwork signed and given to surgery staff.
[2019-07-21] MEDS ORDERED: BACITRACIN 50000 UNITS/VIAL ONE (11:24)
--- NOTE | 2019-07-21 12:30 | NUR ---
Resident was transferred to room 274 post AKA for post-op monitoring by surgery nurse. Per OR nurse they don't have ventilator in the recovery room. Transferred to room 329 at 1300.
[2019-07-21] MEDS ORDERED: VITA1TAB20 PO (14:08)
[2019-07-21] MEDS ORDERED: ACET-73 PO (14:08)
--- NOTE | 2019-07-22 11:28 | NUR ---
RADHA called [facility] [phone] and spoke to Davie to cancel only Today's transportation to [facility] as pt. is receiving Dialysis in [place]. Davie was agreeable to plan. RADHA called [facility] to cancel today's Dialysis apt. and spoke with Misa. Misa was agreeable to plan.
[2019-07-22 19:52] VITALS: BP 134/67
--- NOTE | 2019-07-22 20:00 | NUR ---
Patient admitted from [facility] @ 1840 s/p left above the knee amputation.Site covered by surgical dressing clean and intact with FREDI drain wit 15ml of bloody output. BP 134/67 HR 119,Temp 99.2.Family at bedside.Pt looks comfortable,no respiratory distress on mechanical vent with prescribed settings.Left upper arm PICC line dressing clan and intact.Gt feeding on HOB elevated.Dr. Dia made aware pt is back in the unit to continue all previous orders.Resumed sacral wound treatment.Will continue to monitor
[2019-07-22 20:30] VITALS: BP 134/67
[2019-07-22] MEDS ORDERED: MAG HYDROX/AL HYDROX/SIMETH 30 ML UDC GT PRN (20:30)
[2019-07-22] MEDS ORDERED: SIMETHICONE SUSP 40 MG/0.6 ML BOTTLE GT PRN (20:30)
[2019-07-22] MEDS ORDERED: MAGNESIUM HYDROXIDE 30 ML UDC GT PRN (20:30)
[2019-07-22] MEDS ORDERED: BISACODYL SUPP (10 MG) 10 MG/SUPP.RECT SUPP.RECT RC PRN (20:30)
[2019-07-22] MEDS ORDERED: DEXTROSE 50%-WATER 50 ML DISP.SYRIN IV PRN (20:30)
[2019-07-22] MEDS ORDERED: NA PHOS,M-B/NA PHOS,DI-BA 1 EA ENEMA RC PRN (20:30)
[2019-07-22] MEDS ORDERED: ALBUTEROL HALF STRENGTH 1.25 MG/3 ML VIAL.NEB NEB PRN (21:00)
[2019-07-22] MEDS ORDERED: CLONIDINE HCL 0.1 MG TABLET GT PRN (21:00)
[2019-07-22] MEDS: METOCLOPRAMIDE HCL 10 MG TABLET GT SCH (21:25)
[2019-07-22] MEDS: METOPROLOL TARTRATE 50 MG TABLET GT SCH (21:25)
[2019-07-22] MEDS: BLOOD SUGAR DIAGNOSTIC 1 EACH STRIP IN SCH (21:25)
[2019-07-22] MEDS: ACETAMINOPHEN 650 MG/20.3 ML UDC GT SCH (21:25)
[2019-07-22] MEDS: INSULIN GLARGINE,BASAGLAR 100 UNIT/ML INSULN.PEN SQ SCH (21:27)
[2019-07-22] MEDS: NEPRO 1,000 ML BOTTLE GT PRN (21:28)
[2019-07-22] MEDS: INSULIN ASPART/LISPRO 100 UNIT/ML CARTRIDGE SQ PRN (21:29)
[2019-07-22] MEDS: MUPIROCIN OINT 2% 22 GM TUBE SCH (21:56)
[2019-07-22] MEDS: DAKINS HALF STRENGTH (0.25%) 480 ML BOTTLE TOP SCH (21:56)
[2019-07-22] MEDS: HYDROGEL DRESSING 90 GM TUBE TP SCH (21:56)
[2019-07-22] MEDS: AMMONIUM LACTATE 227 GM BOTTLE TP SCH (21:56)
[2019-07-22] MEDS: Z GUARD REMEDY 4 OZ OINT TP SCH (21:56)
[2019-07-23] VITALS (7 sets, daily range): BP systolic 105–129; BP diastolic 44–75
[2019-07-23] MEDS: POLYVINYL ALCOHOL 15 ML BOTTLE EACHEYE SCH ×4 (00:19→17:06)
[2019-07-23] MEDS: BLOOD SUGAR DIAGNOSTIC 1 EACH STRIP IN SCH ×4 (02:52→20:30)
[2019-07-23] MEDS: INSULIN ASPART/LISPRO 100 UNIT/ML CARTRIDGE SQ PRN ×4 (02:53→20:30)
[2019-07-23] MEDS: ACETAMINOPHEN 650 MG/20 ML UDC- SA PATIENTS-PAIN ONLY GT PRN (03:07)
--- NOTE | 2019-07-23 03:07 | NUR ---
Patient's heart rate 120, appeared to be in discomfort and pain, 3/. PRN Tylenol given via GT. Repositioned for comfort. Will closely monitor.
--- NOTE | 2019-07-23 05:21 | NUR ---
Pt receive on ordered MV, vent plug in red outlet, spare trach and ambu bag is at bedside, trach patent and secured Addendum: 07/23/19 at 0522 by LAYLA PENA RT Amended: Links added.
[2019-07-23] MEDS: METOCLOPRAMIDE HCL 10 MG TABLET GT SCH (05:33)
[2019-07-23] MEDS: OMEPRAZOLE 20 MG CAPSULE.DR GT SCH (05:33)
--- NOTE | 2019-07-23 06:58 | NUR ---
Patient sleeping calmly with heart rate 96, saturating 99%. No sign of distress and discomfort.
[2019-07-23] MEDS: LACTOBACILLUS RHAMNOSUS GG 1 EACH CAP.SPRINK GT SCH ×2 (09:36→16:52)
[2019-07-23] MEDS: SUCRALFATE 1 G/10 ML UDC GT SCH (09:36)
[2019-07-23] MEDS: VIT B CMPLX 3/FA/VIT C/BIOTIN 1 TAB TABLET GT SCH (09:37)
[2019-07-23] MEDS: PROSOURCE / PROSTAT (PYXIS) 30 ML UDC GT SCH ×2 (09:37→16:52)
[2019-07-23] MEDS: METOPROLOL TARTRATE 50 MG TABLET GT SCH ×2 (09:37→21:00)
[2019-07-23] MEDS: ASCORBIC ACID 500 MG TABLET GT SCH (09:37)
[2019-07-23] MEDS: NEUTRA PHOS 1 POWD.PACKET GT SCH (09:37)
[2019-07-23] MEDS: ZINC SULFATE 220 MG CAPSULE GT SCH (09:37)
[2019-07-23] MEDS: ACETAMINOPHEN 650 MG/20.3 ML UDC GT SCH ×2 (09:37→21:00)
--- NOTE | 2019-07-23 09:46 | NUR ---
RT NOTE PT RCVD TRACH'D ON MECHANICAL VENT WITH CHARTED SETTINGS. SX DONE. PT TRACH IS PATENT AND SECURE. VENT ALARMS APPEAR TO BE FUNCTIONING PROPERLY. VENT PLUGGED INTO RED OUTLET. AMBU BAG AT BEDSIDE. NO SOB NOTED.
[2019-07-23] MEDS: INSULIN GLARGINE,BASAGLAR 100 UNIT/ML INSULN.PEN SQ SCH ×2 (09:48→21:00)
[2019-07-23] MEDS: HYDROGEL DRESSING 90 GM TUBE TP SCH ×2 (10:15→21:00)
[2019-07-23] MEDS: AMMONIUM LACTATE 227 GM BOTTLE TP SCH ×2 (10:15→21:00)
[2019-07-23] MEDS: Z GUARD REMEDY 4 OZ OINT TP SCH ×2 (10:15→21:00)
[2019-07-23] MEDS: MUPIROCIN OINT 2% 22 GM TUBE SCH ×2 (10:15→21:00)
[2019-07-23] MEDS: DAKINS HALF STRENGTH (0.25%) 480 ML BOTTLE TOP SCH ×2 (10:30→21:00)
[2019-07-23] MEDS: METOCLOPRAMIDE HCL 10 MG/10 ML UDC GT SCH ×2 (12:01→21:00)
--- NOTE | 2019-07-23 12:40 | NUR ---
Informed Dr. Madsen that patient is readmitted to subacute, and according to report from acute hospital, surgeon will remove FREDI drain and change dressing today, patient S/P L above the knee amputation on 07/21/19. According to MD, he will come Thursday evening when patient returns from his dialysis.
--- NOTE | 2019-07-23 12:49 | NUR ---
Left a message to Dr. Dia if he would like a follow-up BMP and CBC. Resident not on any ATB, WBC 19.1 on 07/22, VS 99.4, 100, 18, 100% 119/75. Awaiting for call back.
--- NOTE | 2019-07-23 12:57 | NUR ---
Spoke with Herlinda, RN at [facility] to confirm dialysis schedule every Thursday, Thursday and Thursday with chair time of 1245. Spoke with Cary at [facility] [employer] confirming transportation during dialysis days MWF with up pick time at 12:15 and return pick up operator at 1545 with [facility]. Endorsed.
[2019-07-23] MEDS: NEPRO 1,000 ML BOTTLE GT PRN (16:52)
[2019-07-23] MEDS: CLOTRIMAZOLE/BETAMETASONE DIPROPIONATE 15 GM TUBE TP SCH (21:00)
--- NOTE | 2019-07-23 22:30 | NUR ---
primary nurse noted patient with increase ZP=113y and temperature of 102.0 axillary temperature. Tylenol PRN given and cooling measure started. no respiratory distress noted. Left above knee amputation noted with clean and dry dressing. FREDI noted with small amount of Serosanguineous drainage. no swelling noted around the area. will continue to monitor.
[2019-07-23] MEDS: ACETAMINOPHEN 650 MG/20 ML UDC- SA PATIENTS-FEVER ONLY GT PRN (23:30)
--- NOTE | 2019-07-23 23:30 | NUR ---
temperature went down to 100.1axillary. cooling measure continued. patient asleep. no respiratory distress noted. will continue to monitor
[2019-07-24] VITALS (7 sets, daily range): BP systolic 102–155; BP diastolic 46–78
--- NOTE | 2019-07-24 00:30 | NUR ---
patient remained asleep. current vital sign is OR=509 RR=20 SO=993/64 Temp=98.7 axillary. will continue to monitor.
[2019-07-24] MEDS: POLYVINYL ALCOHOL 15 ML BOTTLE EACHEYE SCH ×5 (00:44→23:21)
[2019-07-24] MEDS: BLOOD SUGAR DIAGNOSTIC 1 EACH STRIP IN SCH ×5 (02:01→23:21)
[2019-07-24] MEDS: INSULIN ASPART/LISPRO 100 UNIT/ML CARTRIDGE SQ PRN ×4 (02:02→23:23)
[2019-07-24] MEDS: METOCLOPRAMIDE HCL 10 MG/10 ML UDC GT SCH ×3 (05:14→21:20)
[2019-07-24] MEDS: OMEPRAZOLE 20 MG CAPSULE.DR GT SCH (05:15)
--- NOTE | 2019-07-24 06:46 | NUR ---
patient asleep and calm no s/s of respirator distress noted. primary nurse checked temperature and it's 99.0 axillary. cooling measure continue. charge nurse JOSE F Alcocer and will wait for respond.
--- NOTE | 2019-07-24 06:55 | NUR ---
Dr. Alcocer responded with new order of CBC, BMP, 2 Sets of Blood culture, and CXR stats.
[2019-07-24 08:14] LABS: BASOPHILS # (AUTO) 0.1 /CMM (0.0-0.2); BASOPHILS % (AUTO) 0.5 % (0.0-2.0); EOSINOPHILS % (AUTO) 4.5 % (0.0-6.0); HEMATOCRIT 28 % (39-51); HEMOGLOBIN 8.5 g/dL (13.5-17.5); LYMPHOCYTES # (AUTO) 2.6 /CMM (0.8-4.8); LYMPHOCYTES % (AUTO) 9.7 % (20.0-44.0); MEAN CORPUSCULAR HGB CONC 30 g/dl (31.0-36.0); MEAN CORPUSCULAR VOLUME 92 fL (80-96); MONOCYTES # (AUTO) 1.3 /CMM (0.1-1.30); MONOCYTES % (AUTO) 4.8 % (2.0-12.0); NEUTROPHILS # (AUTO) 21.8 /CMM (1.8-8.9); NEUTROPHILS % (AUTO) 80.5 % (43.0-81.0); PLATELET COUNT (AUTO) 555 /CMM (150-450); RED BLOOD CELL COUNT(AUTO) 3.06 MIL/uL (4.5-6.0); WHITE BLOOD COUNT (AUTO) 27.1 K/uL (4.3-11.0)
[2019-07-24 08:40] LABS: CALCIUM, SERUM 8.9 mg/dL (8.5-10.1); CREATININE 4.2 mg/dL (0.6-1.3)
[2019-07-24] MEDS: VIT B CMPLX 3/FA/VIT C/BIOTIN 1 TAB TABLET GT SCH (09:00)
[2019-07-24] MEDS: NEUTRA PHOS 1 POWD.PACKET GT SCH (09:00)
[2019-07-24] MEDS: CLOTRIMAZOLE/BETAMETASONE DIPROPIONATE 15 GM TUBE TP SCH ×2 (09:00→21:24)
[2019-07-24] MEDS: MUPIROCIN OINT 2% 22 GM TUBE SCH ×2 (09:00→21:20)
[2019-07-24] MEDS: PROSOURCE / PROSTAT (PYXIS) 30 ML UDC GT SCH ×2 (09:00→17:26)
[2019-07-24] MEDS: Z GUARD REMEDY 4 OZ OINT TP SCH ×2 (09:00→21:24)
[2019-07-24] MEDS: ASCORBIC ACID 500 MG TABLET GT SCH (09:00)
[2019-07-24] MEDS: HYDROGEL DRESSING 90 GM TUBE TP SCH ×2 (09:00→21:24)
[2019-07-24] MEDS: ACETAMINOPHEN 650 MG/20.3 ML UDC GT SCH ×2 (09:00→21:20)
[2019-07-24] MEDS: ZINC SULFATE 220 MG CAPSULE GT SCH (09:00)
[2019-07-24] MEDS: AMMONIUM LACTATE 227 GM BOTTLE TP SCH ×2 (09:00→21:24)
[2019-07-24] MEDS: INSULIN GLARGINE,BASAGLAR 100 UNIT/ML INSULN.PEN SQ SCH ×2 (09:00→21:24)
[2019-07-24] MEDS: DAKINS HALF STRENGTH (0.25%) 480 ML BOTTLE TOP SCH ×2 (09:00→21:24)
--- NOTE | 2019-07-24 09:25 | NUR ---
Notified Dr. Dai of CBC, BMP, Chest Xray result, with WBC of 27.1, Current V/S 98.9, 93, 18, 100% and 116/68, Patient currently not on ATB. Dr. Dia to review lab result and previous culture results.
[2019-07-24] MEDS: SUCRALFATE 1 G/10 ML UDC GT SCH (09:59)
[2019-07-24] MEDS: LACTOBACILLUS RHAMNOSUS GG 1 EACH CAP.SPRINK GT SCH ×2 (09:59→17:26)
[2019-07-24] MEDS: METOPROLOL TARTRATE 50 MG TABLET GT SCH ×2 (10:00→21:00)
--- NOTE | 2019-07-24 15:10 | NUR ---
Made a follow-up call to Dr. Dia if he will oreder any ATB for patient awaiting fro call back, meanwhile LOPEZ Parker also notified of CBC, BMP result awaiting for return call.
--- NOTE | 2019-07-24 15:35 | NUR ---
LOPEZ Parker came by and reviewed lab result with new order to continue Vancomycin and Amikacin per pharmacy to dose. Order carried out. Spoke with patient's daughter Christine and notified of new order. Appreciated the call.
--- NOTE | 2019-07-24 17:15 | NUR ---
Obtain a recommendation from [facility] pharmacy regarding Amikacin and Vancomycin dosing. Patient's insurance will cover the medication.
[2019-07-24] MEDS ORDERED: VANCOMYCIN 500 MG in IV D5W 100 ML IV PRN (17:30)
[2019-07-24] MEDS ORDERED: VANCOMYCIN 500 MG in IV D5W 100ml IV ONE (18:00)
[2019-07-24] MEDS: NEPRO 1,000 ML BOTTLE GT PRN (18:01)
--- NOTE | 2019-07-24 19:58 | NUR ---
RT NOTE PATIENT RECEIVED IN STABLE CONDITION. PATIENT TOLERATING CURRENT ORDERED VENT SETTINGS. NO SIGNS OF RESPIRATORY DISTRESS NOTED. TRACH IS PATENT AND SECURE. ALARMS ARE SET AND AUDIBLE. MECHANICAL VENT IS PLUGGED INTO RED OUTLET. EMERGENCY EQUIPMENT AT BEDSIDE. WILL CONTINUE TO MONITOR. Addendum: 07/24/19 at [address] RT Amended: Links added.
[2019-07-24] MEDS ORDERED: AMIKACIN 350 MG in IV D5W 100 ML IV ONE (20:00)
[2019-07-25] VITALS (7 sets, daily range): BP systolic 103–141; BP diastolic 45–69
[2019-07-25] MEDS: POLYVINYL ALCOHOL 15 ML BOTTLE EACHEYE SCH ×4 (05:28→23:21)
[2019-07-25] MEDS: BLOOD SUGAR DIAGNOSTIC 1 EACH STRIP IN SCH ×4 (05:28→23:21)
[2019-07-25] MEDS: OMEPRAZOLE 20 MG CAPSULE.DR GT SCH (05:28)
[2019-07-25] MEDS: METOCLOPRAMIDE HCL 10 MG/10 ML UDC GT SCH ×3 (05:28→21:20)
[2019-07-25] MEDS: INSULIN ASPART/LISPRO 100 UNIT/ML CARTRIDGE SQ PRN ×4 (05:29→23:22)
[2019-07-25] MEDS: SUCRALFATE 1 G/10 ML UDC GT SCH (09:02)
[2019-07-25] MEDS: LACTOBACILLUS RHAMNOSUS GG 1 EACH CAP.SPRINK GT SCH ×2 (09:02→17:44)
[2019-07-25] MEDS: VIT B CMPLX 3/FA/VIT C/BIOTIN 1 TAB TABLET GT SCH (09:04)
[2019-07-25] MEDS: METOPROLOL TARTRATE 50 MG TABLET GT SCH ×2 (09:04→21:00)
[2019-07-25] MEDS: ZINC SULFATE 220 MG CAPSULE GT SCH (09:05)
[2019-07-25] MEDS: ACETAMINOPHEN 650 MG/20.3 ML UDC GT SCH ×2 (09:05→21:20)
[2019-07-25] MEDS: ASCORBIC ACID 500 MG TABLET GT SCH (09:05)
[2019-07-25] MEDS: PROSOURCE / PROSTAT (PYXIS) 30 ML UDC GT SCH ×2 (09:05→17:44)
[2019-07-25] MEDS: NEUTRA PHOS 1 POWD.PACKET GT SCH (09:05)
[2019-07-25] MEDS: MUPIROCIN OINT 2% 22 GM TUBE SCH ×2 (09:06→21:20)
--- NOTE | 2019-07-25 09:13 | NUR ---
RADHA contacted [facility] and spoke to Donna to confirm transportation to reinstated transportation to [facility] starting today 07/25/19. Per Donna, transportation is arranged and the resident will be picked up at 12:35pm. Charge Nurse informed.
[2019-07-25] MEDS: INSULIN GLARGINE,BASAGLAR 100 UNIT/ML INSULN.PEN SQ SCH ×2 (09:19→21:21)
[2019-07-25] MEDS: DAKINS HALF STRENGTH (0.25%) 480 ML BOTTLE TOP SCH ×2 (09:35→21:21)
[2019-07-25] MEDS: Z GUARD REMEDY 4 OZ OINT TP SCH ×2 (09:35→21:21)
[2019-07-25] MEDS: CLOTRIMAZOLE/BETAMETASONE DIPROPIONATE 15 GM TUBE TP SCH ×2 (09:35→21:21)
[2019-07-25] MEDS: AMMONIUM LACTATE 227 GM BOTTLE TP SCH ×2 (09:35→21:21)
[2019-07-25] MEDS: HYDROGEL DRESSING 90 GM TUBE TP SCH ×2 (09:35→21:21)
[2019-07-25] MEDS: ONDANSETRON 4 MG TAB.RAPDIS GT PRN (12:00)
--- NOTE | 2019-07-25 12:48 | NUR ---
Eyes open. Trach with vent working at prescribed settings. GT in place patent no residual. Times one episode of emesis moderate amount undigested formula. Antiemetic medications given as ordered and effective. Right upper chest hemodialysis catheter with clean dressing. Left upper arm with Picc line intact with clean dressing. Patient went for hemodialysis as ordered with two EMT's and one RT via ambulance and gurney. Report given. Isolation precautions maintained.
[2019-07-25] MEDS: VANCOMYCIN 500 MG in IV D5W 100 ML IV SCH (17:00)
--- NOTE | 2019-07-25 17:00 | NUR ---
Eyes Open. Trach with vent working at prescribed settings. GT in place patent no residual. Right upper chest hemodialysis catheter with clean dressing. Patient returned from hemodialysis as ordered with two SEMICONDUCTOR DEVELOPMENT TECHNICIAN and one RT via ambulance and gurney. Kept clean and dry. All need met and attended.
[2019-07-25] MEDS: AMIKACIN 350 MG in IV D5W 100 ML IV SCH (18:10)
--- NOTE | 2019-07-25 19:37 | NUR ---
RT NOTE: RECEIVED TRACH PT ON [facility] VENT ON NOTED SETTINGS PER MD ORDERS. TRACH IS PATENT AND SECURED. TRACH CARE DONE. COTTON BREEDER DONE. SX DONE PRN. VENT PLUGGED INTO RED OUTLET. ALARMS ON AND AUDIBLE. COLTON TORRES @ BEDSIDE. NO RESP DISTRESS AT THIS TIME. WILL CONT TO MONITOR PT. Addendum: 07/26/19 at 0333 by CELY STERLING RT Amended: Links added.
[2019-07-26] VITALS (8 sets, daily range): BP systolic 110–119; BP diastolic 52–63
[2019-07-26] MEDS: METOCLOPRAMIDE HCL 10 MG/10 ML UDC GT SCH ×3 (05:29→21:19)
[2019-07-26] MEDS: POLYVINYL ALCOHOL 15 ML BOTTLE EACHEYE SCH ×4 (05:29→23:04)
[2019-07-26] MEDS: BLOOD SUGAR DIAGNOSTIC 1 EACH STRIP IN SCH ×4 (05:29→23:04)
[2019-07-26] MEDS: OMEPRAZOLE 20 MG CAPSULE.DR GT SCH (05:29)
[2019-07-26] MEDS: INSULIN ASPART/LISPRO 100 UNIT/ML CARTRIDGE SQ PRN ×4 (05:30→23:05)
--- NOTE | 2019-07-26 06:00 | NUR ---
RN NOTES Seen and examined by Dr. Madsen. Removed dressing to left leg s/p amputation and removed drain. Received new order, noted and carried out.
[2019-07-26] MEDS: LACTOBACILLUS RHAMNOSUS GG 1 EACH CAP.SPRINK GT SCH ×2 (08:48→17:04)
[2019-07-26] MEDS: SUCRALFATE 1 G/10 ML UDC GT SCH (08:48)
[2019-07-26] MEDS: METOPROLOL TARTRATE 50 MG TABLET GT SCH ×2 (08:49→21:19)
[2019-07-26] MEDS: PROSOURCE / PROSTAT (PYXIS) 30 ML UDC GT SCH ×2 (08:49→17:04)
[2019-07-26] MEDS: ACETAMINOPHEN 650 MG/20.3 ML UDC GT SCH ×2 (08:49→21:20)
[2019-07-26] MEDS: VIT B CMPLX 3/FA/VIT C/BIOTIN 1 TAB TABLET GT SCH (08:49)
[2019-07-26] MEDS: NEUTRA PHOS 1 POWD.PACKET GT SCH (08:49)
[2019-07-26] MEDS: ZINC SULFATE 220 MG CAPSULE GT SCH (08:49)
[2019-07-26] MEDS: ASCORBIC ACID 500 MG TABLET GT SCH (08:49)
[2019-07-26] MEDS: INSULIN GLARGINE,BASAGLAR 100 UNIT/ML INSULN.PEN SQ SCH ×2 (08:51→21:21)
[2019-07-26] MEDS: Z GUARD REMEDY 4 OZ OINT TP SCH ×2 (09:00→21:22)
[2019-07-26] MEDS: MUPIROCIN OINT 2% 22 GM TUBE SCH ×2 (09:00→21:20)
[2019-07-26] MEDS: HYDROGEL DRESSING 90 GM TUBE TP SCH ×2 (09:00→21:22)
[2019-07-26] MEDS: AMMONIUM LACTATE 227 GM BOTTLE TP SCH ×2 (09:00→21:22)
[2019-07-26] MEDS: BETADINE 5% TP SCH (09:00)
[2019-07-26] MEDS: DAKINS HALF STRENGTH (0.25%) 480 ML BOTTLE TOP SCH ×2 (09:00→21:21)
[2019-07-26] MEDS ORDERED: HYDROGEN PEROXIDE 480 ML BOTTLE TP PRN (12:00)
--- NOTE | 2019-07-26 12:23 | NUR ---
SW contacted the patients responsible democrat/, Janet to invite her to the IDT Plan of Care Conference taking place 07/29/19 12:30 PM-1:30PM in the activities room and to remind her of the family support group 07/27/19 11am. Per Janet, she will not be able to attend the family support group because of work but can patriciate via phone conference in the IDT. Noted.
[2019-07-26] MEDS ORDERED: POVIDONE-IODINE OINT 28.4 GM TUBE TP SCH (17:00)
[2019-07-26] MEDS: HYDROGEN PEROXIDE 480 ML BOTTLE TP SCH (20:26)
--- NOTE | 2019-07-26 21:09 | NUR ---
RT NOTE PT RECEIVED TRACHED ON MECHANICAL VENTILATION. CUFF CHECKED VIA REACH TRUCK OPERATOR. AMBU BAG/BACK UP TRACH @ BEDSIDE. SX DONE, TRACH SECURED AND PATENT. ALARMS ON AND AUDIBLE. VENT PLUGGED TO RED OUTLET. NO SOB NOTED. CONT. PULSE OX CONNECTED. WILL MONITOR T/O SHIFT. Addendum: 07/26/19 at 2110 by MARCIA OYUNG RT Amended: Links added.
[2019-07-26] MEDS: CLOTRIMAZOLE 1% CREAM 24 GM TUBE TP SCH (21:22)
[2019-07-27] VITALS (8 sets, daily range): BP systolic 97–126; BP diastolic 42–68
[2019-07-27] MEDS: METOCLOPRAMIDE HCL 10 MG/10 ML UDC GT SCH ×3 (05:18→21:21)
[2019-07-27] MEDS: BLOOD SUGAR DIAGNOSTIC 1 EACH STRIP IN SCH ×3 (05:19→17:34)
[2019-07-27] MEDS: POLYVINYL ALCOHOL 15 ML BOTTLE EACHEYE SCH ×3 (05:19→17:34)
[2019-07-27] MEDS: OMEPRAZOLE 20 MG CAPSULE.DR GT SCH (05:19)
[2019-07-27 06:51] LABS: BASOPHILS # (AUTO) 0.1 /CMM (0.0-0.2); BASOPHILS % (AUTO) 0.7 % (0.0-2.0); EOSINOPHILS % (AUTO) 8.6 % (0.0-6.0); HEMATOCRIT 29 % (39-51); HEMOGLOBIN 8.7 g/dL (13.5-17.5); LYMPHOCYTES # (AUTO) 3.1 /CMM (0.8-4.8); LYMPHOCYTES % (AUTO) 17.9 % (20.0-44.0); MEAN CORPUSCULAR HGB CONC 30 g/dl (31.0-36.0); MEAN CORPUSCULAR VOLUME 91 fL (80-96); MONOCYTES # (AUTO) 1.2 /CMM (0.1-1.30); MONOCYTES % (AUTO) 6.6 % (2.0-12.0); NEUTROPHILS # (AUTO) 11.6 /CMM (1.8-8.9); NEUTROPHILS % (AUTO) 66.2 % (43.0-81.0); PLATELET COUNT (AUTO) 665 /CMM (150-450); RED BLOOD CELL COUNT(AUTO) 3.17 MIL/uL (4.5-6.0); WHITE BLOOD COUNT (AUTO) 17.5 K/uL (4.3-11.0)
[2019-07-27] MEDS: HYDROGEN PEROXIDE 480 ML BOTTLE TP SCH ×2 (09:00→21:06)
[2019-07-27] MEDS: DAKINS HALF STRENGTH (0.25%) 480 ML BOTTLE TOP SCH ×2 (09:30→21:22)
[2019-07-27] MEDS: HYDROGEL DRESSING 90 GM TUBE TP SCH ×2 (09:30→21:22)
[2019-07-27] MEDS: BETADINE 5% TP SCH (09:30)
[2019-07-27] MEDS: Z GUARD REMEDY 4 OZ OINT TP SCH ×2 (09:30→21:22)
[2019-07-27] MEDS: AMMONIUM LACTATE 227 GM BOTTLE TP SCH ×2 (09:30→21:22)
[2019-07-27] MEDS: MUPIROCIN OINT 2% 22 GM TUBE SCH ×2 (09:30→21:22)
[2019-07-27] MEDS: CLOTRIMAZOLE 1% CREAM 24 GM TUBE TP SCH ×2 (09:30→21:22)
[2019-07-27] MEDS: SUCRALFATE 1 G/10 ML UDC GT SCH (09:57)
[2019-07-27] MEDS: LACTOBACILLUS RHAMNOSUS GG 1 EACH CAP.SPRINK GT SCH ×2 (09:57→17:34)
[2019-07-27] MEDS: VIT B CMPLX 3/FA/VIT C/BIOTIN 1 TAB TABLET GT SCH (09:58)
[2019-07-27] MEDS: ZINC SULFATE 220 MG CAPSULE GT SCH (09:58)
[2019-07-27] MEDS: ACETAMINOPHEN 650 MG/20.3 ML UDC GT SCH ×2 (09:58→21:22)
[2019-07-27] MEDS: ASCORBIC ACID 500 MG TABLET GT SCH (09:58)
[2019-07-27] MEDS: NEUTRA PHOS 1 POWD.PACKET GT SCH (09:58)
[2019-07-27] MEDS: PROSOURCE / PROSTAT (PYXIS) 30 ML UDC GT SCH ×2 (09:58→17:34)
[2019-07-27] MEDS: METOPROLOL TARTRATE 50 MG TABLET GT SCH ×2 (09:58→21:00)
[2019-07-27] MEDS: INSULIN GLARGINE,BASAGLAR 100 UNIT/ML INSULN.PEN SQ SCH ×2 (09:59→21:36)
--- NOTE | 2019-07-27 13:15 | NUR ---
The pt.'s family was not able to attend this month's Family Support Group.
--- NOTE | 2019-07-27 17:15 | NUR ---
PT. BROUGHT BACK FROM HEMODIALYSIS AND CONNECTED TO LTV VENT WITH AC 18, VT 500, FIO2 30% AND NO PEEP. VENT IS PLUGGED INTO RED OUTLET WITH ALARMS ON AND FUNCTIONING. TRIHSAU BAG @ BEDSIDE. Addendum: 07/27/19 at 1718 by JERALD BOYCE RT Amended: Links added.
[2019-07-27] MEDS: INSULIN ASPART/LISPRO 100 UNIT/ML CARTRIDGE SQ PRN (17:36)
[2019-07-27] MEDS: AMIKACIN 350 MG in IV D5W 100 ML IV SCH (18:00)
[2019-07-27] MEDS: VANCOMYCIN 500 MG in IV D5W 100 ML IV SCH (18:20)
--- NOTE | 2019-07-27 18:43 | NUR ---
Spoke with Michael Christian IV pharmacist and relayed random Amikacin and Vancomycin level, she said Vancomycin is OK to give but Amikacin to hold tonight's dose and she will fax the new dosing. Endorsed.
--- NOTE | 2019-07-27 21:12 | NUR ---
PT RECEIVE STABLE ON MV, SETTINGS ARE AC 18 500 AT 30% , VENT IS PLUG IN RED OUTLET, SPARE TRACH AND AMBU BAG IS BEDSIDE, WILL CONTINUE TO MONITOR Addendum: 07/27/19 at 2114 by LAYLA PENA RT Amended: Links added.
[2019-07-28] VITALS (7 sets, daily range): BP systolic 105–123; BP diastolic 45–78
[2019-07-28] MEDS: POLYVINYL ALCOHOL 15 ML BOTTLE EACHEYE SCH ×5 (00:38→23:37)
[2019-07-28] MEDS: BLOOD SUGAR DIAGNOSTIC 1 EACH STRIP IN SCH ×5 (00:38→23:37)
[2019-07-28] MEDS: INSULIN ASPART/LISPRO 100 UNIT/ML CARTRIDGE SQ PRN ×5 (00:40→23:38)
[2019-07-28] MEDS: METOCLOPRAMIDE HCL 10 MG/10 ML UDC GT SCH ×3 (05:00→20:51)
[2019-07-28] MEDS: OMEPRAZOLE 20 MG CAPSULE.DR GT SCH (06:06)
[2019-07-28] MEDS: NEUTRA PHOS 1 POWD.PACKET GT SCH ×2 (08:41→21:12)
[2019-07-28] MEDS: SUCRALFATE 1 G/10 ML UDC GT SCH (08:41)
[2019-07-28] MEDS: ZINC SULFATE 220 MG CAPSULE GT SCH (08:41)
[2019-07-28] MEDS: VIT B CMPLX 3/FA/VIT C/BIOTIN 1 TAB TABLET GT SCH (08:41)
[2019-07-28] MEDS: LACTOBACILLUS RHAMNOSUS GG 1 EACH CAP.SPRINK GT SCH ×2 (08:41→16:49)
[2019-07-28] MEDS: PROSOURCE / PROSTAT (PYXIS) 30 ML UDC GT SCH ×2 (08:41→16:49)
[2019-07-28] MEDS: ASCORBIC ACID 500 MG TABLET GT SCH (08:41)
[2019-07-28] MEDS: MUPIROCIN OINT 2% 22 GM TUBE SCH ×2 (08:41→20:51)
[2019-07-28] MEDS: ACETAMINOPHEN 650 MG/20.3 ML UDC GT SCH ×2 (08:41→20:51)
[2019-07-28] MEDS: METOPROLOL TARTRATE 50 MG TABLET GT SCH ×2 (08:42→20:51)
[2019-07-28] MEDS: INSULIN GLARGINE,BASAGLAR 100 UNIT/ML INSULN.PEN SQ SCH ×2 (08:44→21:08)
[2019-07-28] MEDS: HYDROGEN PEROXIDE 480 ML BOTTLE TP SCH ×2 (09:00→19:55)
[2019-07-28] MEDS: BETADINE 5% TP SCH (09:30)
[2019-07-28] MEDS: AMMONIUM LACTATE 227 GM BOTTLE TP SCH ×2 (09:30→20:54)
[2019-07-28] MEDS: Z GUARD REMEDY 4 OZ OINT TP SCH ×2 (09:30→20:54)
[2019-07-28] MEDS: DAKINS HALF STRENGTH (0.25%) 480 ML BOTTLE TOP SCH ×2 (09:30→20:54)
[2019-07-28] MEDS: CLOTRIMAZOLE 1% CREAM 24 GM TUBE TP SCH ×2 (09:30→20:54)
[2019-07-28] MEDS: HYDROGEL DRESSING 90 GM TUBE TP SCH ×2 (09:30→20:54)
[2019-07-28] MEDS: KETOCONAZOLE SHAMPOO 120 ML BOTTLE TP SCH (09:30)
[2019-07-28] MEDS: ONDANSETRON 4 MG TAB.RAPDIS GT PRN (11:58)
--- NOTE | 2019-07-28 16:19 | NUR ---
Spoke with Anahi [facility] IV pharmacist to clarify the time Vancomycin and Amikacin trough should be drawn, according to Anahi as long as it is drawn before dialysis, 10:00 AM is OK. Informed Anahi that her recommendation was received after Vancomycin 500mg dose was given yesterday, she said that it is fine. The new dosing of Vancomycin 250mg. can be started tomorrow after dialysis.
--- NOTE | 2019-07-28 17:20 | NUR ---
Obtain an order from Dr. Dia to increase Neutraphos @x Addendum: 07/28/19 at 1820 by ROXANA MINA RN Obtain and order from Dr. Dia to increase Neutraphos to 2x a day/ [facility] project geophysicist's recommendation.
--- NOTE | 2019-07-28 19:56 | NUR ---
RT NOTE: RECEIVED TRACH PT ON [facility] VENT ON NOTED SETTINGS PER MD ORDERS. TRACH IS PATENT AND SECURED. TRACH CARE DONE. RANCH HAND DONE. SX DONE PRN. VENT PLUGGED INTO RED OUTLET. ALARMS ON AND AUDIBLE. COLTON TORRES @ BEDSIDE. NO RESP DISTRESS AT THIS TIME. WILL CONT TO MONITOR PT. Addendum: 07/29/19 at 0245 by CELY STERLING RT Amended: Links added.
[2019-07-29] VITALS (7 sets, daily range): BP systolic 97–123; BP diastolic 43–59
[2019-07-29] MEDS: METOCLOPRAMIDE HCL 10 MG/10 ML UDC GT SCH ×3 (05:31→20:56)
[2019-07-29] MEDS: POLYVINYL ALCOHOL 15 ML BOTTLE EACHEYE SCH ×4 (05:31→23:04)
[2019-07-29] MEDS: OMEPRAZOLE 20 MG CAPSULE.DR GT SCH (05:32)
[2019-07-29] MEDS: NEPRO 1,000 ML BOTTLE GT PRN (05:32)
[2019-07-29] MEDS: BLOOD SUGAR DIAGNOSTIC 1 EACH STRIP IN SCH ×4 (05:32→23:31)
[2019-07-29] MEDS: INSULIN ASPART/LISPRO 100 UNIT/ML CARTRIDGE SQ PRN ×4 (05:34→23:31)
[2019-07-29] MEDS ORDERED: D5W IV SCH (06:00)
[2019-07-29] MEDS ORDERED: VANCOMYCIN IV SCH (06:00)
[2019-07-29] MEDS: SUCRALFATE 1 G/10 ML UDC GT SCH (09:38)
[2019-07-29] MEDS: LACTOBACILLUS RHAMNOSUS GG 1 EACH CAP.SPRINK GT SCH ×2 (09:38→17:00)
[2019-07-29] MEDS: VIT B CMPLX 3/FA/VIT C/BIOTIN 1 TAB TABLET GT SCH (09:38)
[2019-07-29] MEDS: PROSOURCE / PROSTAT (PYXIS) 30 ML UDC GT SCH ×2 (09:40→17:00)
[2019-07-29] MEDS: NEUTRA PHOS 1 POWD.PACKET GT SCH ×2 (09:40→20:56)
[2019-07-29] MEDS: ASCORBIC ACID 500 MG TABLET GT SCH (09:45)
[2019-07-29] MEDS: ACETAMINOPHEN 650 MG/20.3 ML UDC GT SCH ×2 (09:45→20:56)
[2019-07-29] MEDS: ZINC SULFATE 220 MG CAPSULE GT SCH (09:46)
[2019-07-29] MEDS: MUPIROCIN OINT 2% 22 GM TUBE SCH ×2 (09:47→20:56)
[2019-07-29] MEDS: METOPROLOL TARTRATE 50 MG TABLET GT SCH ×2 (09:50→20:56)
[2019-07-29] MEDS: INSULIN GLARGINE,BASAGLAR 100 UNIT/ML INSULN.PEN SQ SCH ×2 (09:53→20:57)
[2019-07-29] MEDS: Z GUARD REMEDY 4 OZ OINT TP SCH ×2 (10:15→20:57)
[2019-07-29] MEDS: BETADINE 5% TP SCH (10:15)
[2019-07-29] MEDS: AMMONIUM LACTATE 227 GM BOTTLE TP SCH ×2 (10:15→20:57)
[2019-07-29] MEDS: HYDROGEL DRESSING 90 GM TUBE TP SCH ×2 (10:15→20:57)
[2019-07-29] MEDS: CLOTRIMAZOLE 1% CREAM 24 GM TUBE TP SCH ×2 (10:15→20:57)
[2019-07-29] MEDS: DAKINS HALF STRENGTH (0.25%) 480 ML BOTTLE TOP SCH ×2 (10:15→20:57)
[2019-07-29] MEDS: HYDROGEN PEROXIDE 480 ML BOTTLE TP SCH ×2 (12:30→20:57)
--- NOTE | 2019-07-29 13:45 | NUR ---
Notified Dr Dia that pt's Metoprolol gets held due to low BP so pt's heart rate remains elevated (100-110). Dr Dia ordered to decrease Metoprolol to 50 mg GT BID. Addendum: 07/29/19 at 1842 by GUILLERMO BEARD RN Notified daughter Adrienne.
[2019-07-29] MEDS ORDERED: METOPROLOL TARTRATE 50 MG TABLET GT SCH (14:10)
--- NOTE | 2019-07-29 16:04 | NUR ---
INTERDISCIPLINARY PLAN OF CARE CONFERENCE took place today. The patients responsible alliance party/daughter, Adrienne [phone] participated via phone conference. Charge nurse discussed L. Above knee amputation healing adequately, and antibiotic Tx for [address] Rocha and Interdisciplinary team discussed the plan of care in detail. Current orders as well as treatments and medications were reviewed. Interdisciplinary team addressed the familys questions. Please see other disciplines IDT notes for further details.
--- NOTE | 2019-07-29 17:26 | NUR ---
RT NOTE: RECEIVED TRACH PT ON ORDERED NOTED VENT SETTINGS. NO RESPIRATORY DISTRESS NOTED. PT WENT TO HEMODIALYSIS TX WITH NO COMPLICATIONS NOTED. TRACH CHECKED SECURE AND PATENT. SXD AND LAVAGED PT Q ROUND AND NEEDED. TRACH CARE DONE. SPARE TRACH AND AMBU BAG @ BEDSIDE. ALARMS ON AND AUDIBLE. VENT PLUGGED INTO RED OUTLET.
[2019-07-29] MEDS: VANCOMYCIN IV SCH (18:11)
[2019-07-29] MEDS: D5W IV SCH (18:11)
--- NOTE | 2019-07-29 18:38 | NUR ---
[facility] asked if pt can be on Midodrine since his BP gets low during dialysis. Dr Dia ordered to hold Metoprolol before dialysis and to give Midodrine 10 mg GT BID for BP support. Notified pt's daughter Adrienne.
[2019-07-29] MEDS: ONDANSETRON 4 MG TAB.RAPDIS GT PRN (20:58)
[2019-07-29] MEDS ORDERED: MIDODRINE HCL (5MG) 5 MG TABLET GT SCH (21:00)
[2019-07-30] VITALS (9 sets, daily range): BP systolic 92–124; BP diastolic 40–85
[2019-07-30] MEDS: OMEPRAZOLE 20 MG CAPSULE.DR GT SCH (05:35)
[2019-07-30] MEDS: METOCLOPRAMIDE HCL 10 MG/10 ML UDC GT SCH ×3 (05:35→20:47)
[2019-07-30] MEDS: BLOOD SUGAR DIAGNOSTIC 1 EACH STRIP IN SCH ×4 (05:35→23:45)
[2019-07-30] MEDS: POLYVINYL ALCOHOL 15 ML BOTTLE EACHEYE SCH ×4 (05:35→23:29)
[2019-07-30] MEDS: NEPRO 1,000 ML BOTTLE GT PRN (05:38)
[2019-07-30] MEDS: INSULIN ASPART/LISPRO 100 UNIT/ML CARTRIDGE SQ PRN ×4 (05:39→23:46)
[2019-07-30] MEDS: MUPIROCIN OINT 2% 22 GM TUBE SCH ×2 (09:00→20:47)
[2019-07-30] MEDS: CLOTRIMAZOLE 1% CREAM 24 GM TUBE TP SCH ×2 (09:00→20:48)
[2019-07-30] MEDS: HYDROGEN PEROXIDE 480 ML BOTTLE TP SCH ×2 (09:00→20:48)
[2019-07-30] MEDS: HYDROGEL DRESSING 90 GM TUBE TP SCH ×2 (09:00→20:48)
[2019-07-30] MEDS: DAKINS HALF STRENGTH (0.25%) 480 ML BOTTLE TOP SCH ×2 (09:00→20:48)
[2019-07-30] MEDS: AMMONIUM LACTATE 227 GM BOTTLE TP SCH ×2 (09:00→20:48)
[2019-07-30] MEDS: INSULIN GLARGINE,BASAGLAR 100 UNIT/ML INSULN.PEN SQ SCH ×2 (09:00→20:48)
[2019-07-30] MEDS: Z GUARD REMEDY 4 OZ OINT TP SCH ×2 (09:00→20:48)
[2019-07-30] MEDS: BETADINE 5% TP SCH (09:00)
[2019-07-30] MEDS: METOPROLOL TARTRATE 50 MG TABLET GT SCH ×2 (09:00→20:47)
[2019-07-30] MEDS: SUCRALFATE 1 G/10 ML UDC GT SCH (09:44)
[2019-07-30] MEDS: ASCORBIC ACID 500 MG TABLET GT SCH (09:45)
[2019-07-30] MEDS: ACETAMINOPHEN 650 MG/20.3 ML UDC GT SCH ×2 (09:45→20:47)
[2019-07-30] MEDS: PROSOURCE / PROSTAT (PYXIS) 30 ML UDC GT SCH ×2 (09:45→16:34)
[2019-07-30] MEDS: ZINC SULFATE 220 MG CAPSULE GT SCH (09:46)
[2019-07-30] MEDS: VIT B CMPLX 3/FA/VIT C/BIOTIN 1 TAB TABLET GT SCH (09:48)
[2019-07-30] MEDS: LACTOBACILLUS RHAMNOSUS GG 1 EACH CAP.SPRINK GT SCH ×2 (09:48→16:52)
[2019-07-30] MEDS: NEUTRA PHOS 1 POWD.PACKET GT SCH ×2 (09:48→20:47)
[2019-07-30] MEDS: ACETAMINOPHEN 650 MG/20 ML UDC- SA PATIENTS-PAIN ONLY GT PRN (16:32)
[2019-07-30] MEDS: ONDANSETRON 4 MG TAB.RAPDIS GT PRN (20:49)
[2019-07-31] VITALS (7 sets, daily range): BP systolic 90–106; BP diastolic 23–57
[2019-07-31] MEDS: METOCLOPRAMIDE HCL 10 MG/10 ML UDC GT SCH ×3 (04:50→21:28)
[2019-07-31] MEDS: ACETAMINOPHEN 650 MG/20 ML UDC- SA PATIENTS-PAIN ONLY GT PRN (04:51)
[2019-07-31] MEDS: INSULIN ASPART/LISPRO 100 UNIT/ML CARTRIDGE SQ PRN ×4 (05:36→23:25)
[2019-07-31] MEDS: POLYVINYL ALCOHOL 15 ML BOTTLE EACHEYE SCH ×4 (05:36→23:24)
[2019-07-31] MEDS: OMEPRAZOLE 20 MG CAPSULE.DR GT SCH (05:36)
[2019-07-31] MEDS: BLOOD SUGAR DIAGNOSTIC 1 EACH STRIP IN SCH ×4 (05:36→23:24)
[2019-07-31] MEDS: NEPRO 1,000 ML BOTTLE GT PRN (05:37)
[2019-07-31] MEDS: HYDROGEN PEROXIDE 480 ML BOTTLE TP SCH ×2 (08:18→21:00)
[2019-07-31] MEDS: SUCRALFATE 1 G/10 ML UDC GT SCH (08:49)
[2019-07-31] MEDS: LACTOBACILLUS RHAMNOSUS GG 1 EACH CAP.SPRINK GT SCH ×2 (08:49→16:37)
[2019-07-31] MEDS: ACETAMINOPHEN 650 MG/20.3 ML UDC GT SCH ×2 (08:50→21:21)
[2019-07-31] MEDS: VIT B CMPLX 3/FA/VIT C/BIOTIN 1 TAB TABLET GT SCH (08:50)
[2019-07-31] MEDS: METOPROLOL TARTRATE 50 MG TABLET GT SCH ×2 (08:50→21:00)
[2019-07-31] MEDS: ZINC SULFATE 220 MG CAPSULE GT SCH (08:50)
[2019-07-31] MEDS: PROSOURCE / PROSTAT (PYXIS) 30 ML UDC GT SCH ×2 (08:50→16:37)
[2019-07-31] MEDS: NEUTRA PHOS 1 POWD.PACKET GT SCH ×2 (08:50→21:28)
[2019-07-31] MEDS: ASCORBIC ACID 500 MG TABLET GT SCH (08:50)
[2019-07-31] MEDS: BETADINE 5% TP SCH (09:00)
[2019-07-31] MEDS: AMMONIUM LACTATE 227 GM BOTTLE TP SCH ×2 (09:00→21:55)
[2019-07-31] MEDS: Z GUARD REMEDY 4 OZ OINT TP SCH ×2 (09:00→21:55)
[2019-07-31] MEDS: CLOTRIMAZOLE 1% CREAM 24 GM TUBE TP SCH ×2 (09:00→21:55)
[2019-07-31] MEDS: DAKINS HALF STRENGTH (0.25%) 480 ML BOTTLE TOP SCH ×2 (09:00→21:54)
[2019-07-31] MEDS: HYDROGEL DRESSING 90 GM TUBE TP SCH ×2 (09:00→21:55)
[2019-07-31] MEDS: MUPIROCIN OINT 2% 22 GM TUBE SCH ×2 (09:01→21:54)
[2019-07-31] MEDS: INSULIN GLARGINE,BASAGLAR 100 UNIT/ML INSULN.PEN SQ SCH ×2 (09:03→21:36)
--- NOTE | 2019-07-31 12:30 | NUR ---
BS-418 and HR- 126, reported to Dr. Dia with new order to do CBC and CMP- carried out. Resident awake, no s/sx of distress. Will continue to monitor.
[2019-07-31 14:59] LABS: EOSINOPHILS % (AUTO) 4.2 % (0.0-6.0)
[2019-07-31 15:12] LABS: ALBUMIN 2.5 g/dL (3.4-5.0); BILIRUBIN,TOTAL 0.3 mg/dL (0.2-1.0); CALCIUM, SERUM 10.3 mg/dL (8.5-10.1); CREATININE 5.6 mg/dL (0.6-1.3); POTASSIUM 3.6 mmol/L (3.5-5.1); TOTAL PROTEIN, SERUM 9.6 g/dL (6.4-8.2)
[2019-07-31 15:14] LABS: BASOPHILS # (AUTO) 0.3 /CMM (0.0-0.2); BASOPHILS % (AUTO) 1.7 % (0.0-2.0); HEMATOCRIT 34 % (39-51); HEMOGLOBIN 10.2 g/dL (13.5-17.5); LYMPHOCYTES # (AUTO) 4.9 /CMM (0.8-4.8); LYMPHOCYTES % (AUTO) 24.8 % (20.0-44.0); MEAN CORPUSCULAR HGB CONC 30 g/dl (31.0-36.0); MEAN CORPUSCULAR VOLUME 93 fL (80-96); MONOCYTES # (AUTO) 2.1 /CMM (0.1-1.30); MONOCYTES % (AUTO) 10.5 % (2.0-12.0); NEUTROPHILS # (AUTO) 11.6 /CMM (1.8-8.9); NEUTROPHILS % (AUTO) 58.8 % (43.0-81.0); RED BLOOD CELL COUNT(AUTO) 3.68 MIL/uL (4.5-6.0); WHITE BLOOD COUNT (AUTO) 19.8 K/uL (4.3-11.0)
[2019-07-31 15:52] LABS: PLATELET COUNT (AUTO) 860 /CMM (150-450)
--- NOTE | 2019-07-31 16:00 | NUR ---
CBC and CMP result relayed to Dr. Dia, no new order given. Will continue to monitor.
[2019-07-31 17:55] LABS: EOSINOPHILS % (MANUAL) 3 % (0-4); LYMPHOCYTES % (MANUAL) 21 % (16-48); MONOCYTES % (MANUAL) 5 % (0-11.0); NEUTROPHILS % (MANUAL) 70 (42-76); REACTIVE LYMPHOCYTES 1 % (0-0)
[2019-08-01] VITALS (11 sets, daily range): BP systolic 88–144; BP diastolic 38–63
--- NOTE | 2019-08-01 00:09 | NUR ---
RT NOTE Pt rec'd on [facility] vent on AC mode. No resp distress or sob noted. Trach is patent and secured. Sx'd thick mod amt of pale yellow secretions. Alarms are set and audible. Vent plugged into red outlet. Ambu bag bedside. Will continue to monitor. Addendum: 08/01/19 at 0009 by MANISH DOMINGUEZ RT Amended: Links added.
[2019-08-01] MEDS: OMEPRAZOLE 20 MG CAPSULE.DR GT SCH (05:21)
[2019-08-01] MEDS: METOCLOPRAMIDE HCL 10 MG/10 ML UDC GT SCH ×3 (05:21→21:31)
[2019-08-01] MEDS: POLYVINYL ALCOHOL 15 ML BOTTLE EACHEYE SCH ×4 (05:21→23:33)
[2019-08-01] MEDS: BLOOD SUGAR DIAGNOSTIC 1 EACH STRIP IN SCH ×4 (05:54→23:43)
[2019-08-01] MEDS: INSULIN ASPART/LISPRO 100 UNIT/ML CARTRIDGE SQ PRN ×4 (05:55→23:45)
[2019-08-01] MEDS ORDERED: AMIKACIN 350 MG in IV D5W 100 ML IV SCH (08:15)
[2019-08-01] MEDS: PROSOURCE / PROSTAT (PYXIS) 30 ML UDC GT SCH ×2 (08:38→17:59)
[2019-08-01] MEDS: SUCRALFATE 1 G/10 ML UDC GT SCH (08:38)
[2019-08-01] MEDS: ACETAMINOPHEN 650 MG/20.3 ML UDC GT SCH ×2 (08:38→21:31)
[2019-08-01] MEDS: LACTOBACILLUS RHAMNOSUS GG 1 EACH CAP.SPRINK GT SCH ×2 (08:38→17:59)
[2019-08-01] MEDS: ZINC SULFATE 220 MG CAPSULE GT SCH (08:38)
[2019-08-01] MEDS: VIT B CMPLX 3/FA/VIT C/BIOTIN 1 TAB TABLET GT SCH (08:38)
[2019-08-01] MEDS: ASCORBIC ACID 500 MG TABLET GT SCH (08:38)
[2019-08-01] MEDS: NEUTRA PHOS 1 POWD.PACKET GT SCH ×2 (08:38→21:30)
[2019-08-01] MEDS: MUPIROCIN OINT 2% 22 GM TUBE SCH ×2 (08:39→21:31)
[2019-08-01] MEDS ORDERED: MIDODRINE HCL (5MG) 5 MG TABLET GT SCH (09:00)
[2019-08-01] MEDS: INSULIN GLARGINE,BASAGLAR 100 UNIT/ML INSULN.PEN SQ SCH ×2 (09:04→21:28)
[2019-08-01] MEDS: CLOTRIMAZOLE 1% CREAM 24 GM TUBE TP SCH ×2 (09:08→22:05)
[2019-08-01] MEDS: AMMONIUM LACTATE 227 GM BOTTLE TP SCH ×2 (09:08→22:05)
[2019-08-01] MEDS: Z GUARD REMEDY 4 OZ OINT TP SCH ×2 (09:08→22:05)
[2019-08-01] MEDS: BETADINE 5% TP SCH (09:08)
[2019-08-01] MEDS: DAKINS HALF STRENGTH (0.25%) 480 ML BOTTLE TOP SCH ×2 (09:08→22:05)
[2019-08-01] MEDS: HYDROGEL DRESSING 90 GM TUBE TP SCH ×2 (09:08→22:05)
[2019-08-01] MEDS: ONDANSETRON 4 MG TAB.RAPDIS GT PRN (10:00)
--- NOTE | 2019-08-01 12:40 | NUR ---
Eyes open. Trach with vent working at prescribed settings. Patient went for hemodialysis as ordered with two INTERNAL AUDIT MANAGER and one RT. Transportation with ambulance and gurney. Right upper chest hemodialysis catheter with clean dressing. GT in place patent no residual. Topical treatment done as ordered. All needs met and attended.
--- NOTE | 2019-08-01 12:44 | NUR ---
Seen by Dr Dia. Pt's heart rate 100-117. Informed Dr Dia that Metoprolol is being held due to blood pressure parameters. Also informed him that SBP this morning was 88 but improved after Midodrine was given. Dr Dia ordered to change Midodrine to 10 mg Q 12 everyday instead of only on dialysis days. Notified pt's daughter Adrienne.
--- NOTE | 2019-08-01 13:30 | NUR ---
Dr Dia asked photo lab specialist Dr Clemente Davidson to see pt due to constant elevated WBCs. Pt was at dialysis center when Dr Davidson came. She said she will come back to see pt. Informed Adrienne of hematology consult order from Dr Dia.
--- NOTE | 2019-08-01 16:12 | NUR ---
Random Vancomycin level 26, faxed result to [facility] IV Department earlier today. Spoke with IV pharmacist Dwayne. Received order to hold Vancomycin dose today and repeat random level on 08/03/19 before dialysis. Amikacin level still pending.
--- NOTE | 2019-08-01 16:45 | NUR ---
Eyes open. Trach with vent working at prescribed settings. Patient returned from hemodialysis as ordered with two EMT's and one RT transportation ambulance with ari. Right upper chest hemodialysis catheter with clean dressing. GT in place patent no residual. Kept clean and comfortable.
[2019-08-01] MEDS: VANCOMYCIN IV SCH (16:52)
[2019-08-01] MEDS: D5W IV SCH (16:52)
--- NOTE | 2019-08-01 18:22 | NUR ---
Seen by Dr Davidson. She said she will order tests for the pt.
[2019-08-01] MEDS: METOPROLOL TARTRATE 50 MG TABLET GT SCH (21:00)
[2019-08-01] MEDS: HYDROGEN PEROXIDE 480 ML BOTTLE TP SCH (21:07)
--- NOTE | 2019-08-01 21:26 | NUR ---
PT RECEIVE STABLE ON MV, SETTINGS ARE AC 18, 500 , 0 PEEP AT 30% FIO2, ALARMS ARE ON AND AUDIBLE, SPARE TRACH AND AMBU BAG IS BEDSIDE, TRACH PATENT AND SECURED, WILL CONTINUE TO MONITOR Addendum: 08/01/19 at 2128 by LAYLA PENA RT Amended: Links added.
--- NOTE | 2019-08-01 21:30 | NUR ---
RN NOTES Received pharmacy's new dose recommendation. Received new order from LOPEZ Sky, to d/c previous order of Amikacin 350mg IV, give Amikacin 250mg IV tonight (start from ekit) and then every post dialysis days (--), get Amicain level before HD on Thursday08/03/19, noted and carried out.
[2019-08-01] MEDS: MIDODRINE HCL (5MG) 5 MG TABLET GT SCH (21:31)
--- NOTE | 2019-08-01 22:00 | NUR ---
RN NOTES Amikacin 250mg IV, (from e-kit), given as ordered with no A/R noted.
[2019-08-02] VITALS (8 sets, daily range): BP systolic 96–121; BP diastolic 50–72
[2019-08-02] MEDS: METOCLOPRAMIDE HCL 10 MG/10 ML UDC GT SCH ×3 (05:44→21:06)
[2019-08-02] MEDS: NEPRO 1,000 ML BOTTLE GT PRN (05:45)
[2019-08-02] MEDS: BLOOD SUGAR DIAGNOSTIC 1 EACH STRIP IN SCH ×4 (05:45→23:22)
[2019-08-02] MEDS: POLYVINYL ALCOHOL 15 ML BOTTLE EACHEYE SCH ×4 (05:45→23:22)
[2019-08-02] MEDS: OMEPRAZOLE 20 MG CAPSULE.DR GT SCH (05:45)
[2019-08-02] MEDS: INSULIN ASPART/LISPRO 100 UNIT/ML CARTRIDGE SQ PRN ×4 (05:46→23:23)
[2019-08-02 07:57] LABS: THYROID STIMULATING HORMONE 1.556 uIU/mL (0.358-3.74)
[2019-08-02] MEDS: HYDROGEN PEROXIDE 480 ML BOTTLE TP SCH ×2 (09:00→20:27)
[2019-08-02] MEDS: METOPROLOL TARTRATE 50 MG TABLET GT SCH ×2 (09:15→21:00)
[2019-08-02] MEDS: SUCRALFATE 1 G/10 ML UDC GT SCH (09:31)
[2019-08-02] MEDS: LACTOBACILLUS RHAMNOSUS GG 1 EACH CAP.SPRINK GT SCH ×2 (09:31→17:46)
[2019-08-02] MEDS: NEUTRA PHOS 1 POWD.PACKET GT SCH ×2 (09:32→21:05)
[2019-08-02] MEDS: ZINC SULFATE 220 MG CAPSULE GT SCH (09:32)
[2019-08-02] MEDS: MUPIROCIN OINT 2% 22 GM TUBE SCH ×2 (09:32→21:06)
[2019-08-02] MEDS: ASCORBIC ACID 500 MG TABLET GT SCH (09:32)
[2019-08-02] MEDS: ACETAMINOPHEN 650 MG/20.3 ML UDC GT SCH ×2 (09:32→21:06)
[2019-08-02] MEDS: VIT B CMPLX 3/FA/VIT C/BIOTIN 1 TAB TABLET GT SCH (09:32)
[2019-08-02] MEDS: PROSOURCE / PROSTAT (PYXIS) 30 ML UDC GT SCH ×2 (09:32→17:46)
[2019-08-02] MEDS: MIDODRINE HCL (5MG) 5 MG TABLET GT SCH ×2 (09:32→21:05)
[2019-08-02] MEDS: INSULIN GLARGINE,BASAGLAR 100 UNIT/ML INSULN.PEN SQ SCH ×2 (09:34→21:07)
[2019-08-02 09:47] LABS: BASOPHILS # (AUTO) 0.1 /CMM (0.0-0.2); BASOPHILS % (AUTO) 0.7 % (0.0-2.0); HEMATOCRIT 34 % (39-51); HEMOGLOBIN 10.1 g/dL (13.5-17.5); LYMPHOCYTES # (AUTO) 3.4 /CMM (0.8-4.8); LYMPHOCYTES % (AUTO) 14.9 % (20.0-44.0); MEAN CORPUSCULAR HGB CONC 30 g/dl (31.0-36.0); MEAN CORPUSCULAR VOLUME 94 fL (80-96); MONOCYTES # (AUTO) 2.1 /CMM (0.1-1.30); MONOCYTES % (AUTO) 9.5 % (2.0-12.0); NEUTROPHILS # (AUTO) 16.3 /CMM (1.8-8.9); NEUTROPHILS % (AUTO) 71.9 % (43.0-81.0); PLATELET COUNT (AUTO) 727 /CMM (150-450); RED BLOOD CELL COUNT(AUTO) 3.57 MIL/uL (4.5-6.0); WHITE BLOOD COUNT (AUTO) 22.6 K/uL (4.3-11.0)
[2019-08-02] MEDS: AMMONIUM LACTATE 227 GM BOTTLE TP SCH ×2 (10:00→21:42)
[2019-08-02] MEDS: BETADINE 5% TP SCH (10:00)
[2019-08-02] MEDS: HYDROGEL DRESSING 90 GM TUBE TP SCH ×2 (10:00→21:42)
[2019-08-02] MEDS: Z GUARD REMEDY 4 OZ OINT TP SCH ×2 (10:00→21:43)
[2019-08-02] MEDS: DAKINS HALF STRENGTH (0.25%) 480 ML BOTTLE TOP SCH ×2 (10:00→21:42)
[2019-08-02] MEDS: CLOTRIMAZOLE 1% CREAM 24 GM TUBE TP SCH ×2 (10:00→21:43)
--- NOTE | 2019-08-02 12:25 | NUR ---
Notified Dr Dia that blood sugar was 405 and fingerstick check was repeated, blood sugar 384. Relayed recent blood sugars to Dr Dia.
--- NOTE | 2019-08-02 20:31 | NUR ---
PT RCVD SARAH'D ON MECHANICAL VENT WITH CHARTED SETTINGS. SX DONE. PT TRACH IS PATENT AND SECURE. VENT ALARMS APPEAR TO BE FUNCTIONING PROPERLY. VENT PLUGGED INTO RED OUTLET. AMBU BAG AT BEDSIDE. NO SOB NOTED. Addendum: 08/02/19 at 2030 by OLAMIDE LANDIN RT Amended: Links added.
[2019-08-03] VITALS (8 sets, daily range): BP systolic 93–121; BP diastolic 52–80
[2019-08-03] MEDS: METOCLOPRAMIDE HCL 10 MG/10 ML UDC GT SCH ×3 (05:32→21:10)
[2019-08-03] MEDS: POLYVINYL ALCOHOL 15 ML BOTTLE EACHEYE SCH ×4 (05:32→23:13)
[2019-08-03] MEDS: OMEPRAZOLE 20 MG CAPSULE.DR GT SCH (05:32)
[2019-08-03] MEDS: INSULIN ASPART/LISPRO 100 UNIT/ML CARTRIDGE SQ PRN ×4 (06:15→23:15)
[2019-08-03] MEDS: BLOOD SUGAR DIAGNOSTIC 1 EACH STRIP IN SCH ×4 (06:15→23:13)
[2019-08-03 08:06] LABS: IMMUNOGLOBULIN A, SERUM 433 mg/dL (90-386); IMMUNOGLOBULIN G, SERUM 2374 mg/dL (700-1600); IMMUNOGLOBULIN M, SERUM 61 mg/dL (20-172)
[2019-08-03] MEDS: Z GUARD REMEDY 4 OZ OINT TP SCH ×2 (09:00→21:49)
[2019-08-03] MEDS: MIDODRINE HCL (5MG) 5 MG TABLET GT SCH ×2 (09:00→21:10)
[2019-08-03] MEDS: MUPIROCIN OINT 2% 22 GM TUBE SCH ×2 (09:00→21:10)
[2019-08-03] MEDS: HYDROGEL DRESSING 90 GM TUBE TP SCH ×2 (09:00→21:49)
[2019-08-03] MEDS: AMMONIUM LACTATE 227 GM BOTTLE TP SCH ×2 (09:00→21:49)
[2019-08-03] MEDS: LACTOBACILLUS RHAMNOSUS GG 1 EACH CAP.SPRINK GT SCH ×2 (09:00→17:29)
[2019-08-03] MEDS: DAKINS HALF STRENGTH (0.25%) 480 ML BOTTLE TOP SCH ×2 (09:00→21:49)
[2019-08-03] MEDS: BETADINE 5% TP SCH (09:00)
[2019-08-03] MEDS: CLOTRIMAZOLE 1% CREAM 24 GM TUBE TP SCH ×2 (09:00→21:49)
[2019-08-03] MEDS: ACETAMINOPHEN 650 MG/20.3 ML UDC GT SCH ×2 (09:15→21:10)
[2019-08-03] MEDS: NEUTRA PHOS 1 POWD.PACKET GT SCH ×2 (09:15→21:10)
[2019-08-03] MEDS: PROSOURCE / PROSTAT (PYXIS) 30 ML UDC GT SCH ×2 (09:15→17:10)
[2019-08-03] MEDS: VIT B CMPLX 3/FA/VIT C/BIOTIN 1 TAB TABLET GT SCH (09:15)
[2019-08-03] MEDS: SUCRALFATE 1 G/10 ML UDC GT SCH (09:15)
[2019-08-03] MEDS: ZINC SULFATE 220 MG CAPSULE GT SCH (09:16)
[2019-08-03] MEDS: ASCORBIC ACID 500 MG TABLET GT SCH (09:16)
[2019-08-03] MEDS: INSULIN GLARGINE,BASAGLAR 100 UNIT/ML INSULN.PEN SQ SCH ×2 (09:26→21:12)
[2019-08-03 13:07] LABS: *SPE A/G RATIO 0.5 (0.7-1.7); *SPE ALBUMIN 2.8 g/dL (2.9-4.4); *SPE ALPHA-1-GLOBULIN 0.3 g/dL (0.0-0.4); *SPE ALPHA-2-GLOBULIN 1.3 g/dL (0.4-1.0); *SPE BETA GLOBULIN 1.1 g/dL (0.7-1.3); *SPE GLOBULIN, TOTAL 5.2 g/dL (2.2-3.9); *SPE M-SPIKE Not Observed g/dL (Not Observed); *SPEGAMMA GLOBULIN 2.4 g/dL (0.4-1.8)
--- NOTE | 2019-08-03 14:44 | NUR ---
RADHA contacted the pt.'s , Janet Bravo [phone] to inform her about the Family Satisfaction survey and its purpose. Per patient's , she visits the pt. every night and SW can leave the survey on pt.'s bedside table for family to fill during next visit. SW left the survey at pt's bedside.
--- NOTE | 2019-08-03 16:04 | NUR ---
Vancomycin random level faxed to [facility] pharmacy. Spoke with Dwayne ([facility] IV pharmacist) with new dosing given to give Vancomycin 250mg IV every other dialysis session, dose to be given today and next dose on Thursday08/08/19. Random Vancomycin level on 08/08/19 before dialysis. Orders noted and carried out. Amikacin level still pending at this time.
[2019-08-03] MEDS: ACETAMINOPHEN 650 MG/20 ML UDC- SA PATIENTS-FEVER ONLY GT PRN (17:25)
[2019-08-03] MEDS ORDERED: VANCOMYCIN IV SCH (17:53)
[2019-08-03] MEDS ORDERED: D5W IV SCH (17:53)
[2019-08-03] MEDS ORDERED: AMIKACIN 250 MG in IV D5W 100 ML IV SCH (18:00)
--- NOTE | 2019-08-03 18:06 | NUR ---
Amikacin random level result (13.5), faxed to [facility] IV department, spoke with Susu, said that IV pharmacist will fax recommendations for Amikacin dosing.
--- NOTE | 2019-08-03 18:39 | NUR ---
Notified LOPEZ Parker as patient's temperature upon returning from dialysis 101, cooling measure and Tylenol initiated. Patient currently on IV Vancomycin and Amikacin. V/S 93/62, 82, 101, 18, 96%. New order given to obtain blood culture. Order noted and carried out.
[2019-08-03] MEDS: METOPROLOL TARTRATE 50 MG TABLET GT SCH (21:00)
[2019-08-03] MEDS: HYDROGEN PEROXIDE 480 ML BOTTLE TP SCH (21:41)
--- NOTE | 2019-08-03 21:48 | NUR ---
PT RECEIVE STABLE ON MV, SETTINGS ARE AC 18 500 AT 30% FI02 , ALARMS ARE ON AND AUDIBLE SPARE TRACH AND AMBU BAG IS AT BEDSIDE, VENT IS PLUG IN AT RED OUTLET, WILL CONTINUE TO MONITOR Addendum: 08/03/19 at 2149 by LAYLA PENA RT Amended: Links added.
[2019-08-04] VITALS (7 sets, daily range): BP systolic 78–125; BP diastolic 38–68
[2019-08-04] MEDS: POLYVINYL ALCOHOL 15 ML BOTTLE EACHEYE SCH ×4 (05:30→23:59)
[2019-08-04] MEDS: METOCLOPRAMIDE HCL 10 MG/10 ML UDC GT SCH ×3 (05:30→21:00)
[2019-08-04] MEDS: OMEPRAZOLE 20 MG CAPSULE.DR GT SCH (05:30)
[2019-08-04] MEDS: BLOOD SUGAR DIAGNOSTIC 1 EACH STRIP IN SCH ×3 (05:59→17:24)
[2019-08-04] MEDS: INSULIN ASPART/LISPRO 100 UNIT/ML CARTRIDGE SQ PRN ×3 (06:00→17:25)
[2019-08-04] MEDS: ASCORBIC ACID 500 MG TABLET GT SCH (08:35)
[2019-08-04] MEDS: ZINC SULFATE 220 MG CAPSULE GT SCH (08:35)
[2019-08-04] MEDS: VIT B CMPLX 3/FA/VIT C/BIOTIN 1 TAB TABLET GT SCH (08:35)
[2019-08-04] MEDS: PROSOURCE / PROSTAT (PYXIS) 30 ML UDC GT SCH ×2 (08:35→17:24)
[2019-08-04] MEDS: MIDODRINE HCL (5MG) 5 MG TABLET GT SCH ×2 (08:35→21:00)
[2019-08-04] MEDS: ACETAMINOPHEN 650 MG/20.3 ML UDC GT SCH ×2 (08:35→21:00)
[2019-08-04] MEDS: SUCRALFATE 1 G/10 ML UDC GT SCH (08:35)
[2019-08-04] MEDS: NEUTRA PHOS 1 POWD.PACKET GT SCH ×2 (08:35→21:00)
[2019-08-04] MEDS: MUPIROCIN OINT 2% 22 GM TUBE SCH ×2 (08:36→21:00)
[2019-08-04] MEDS: INSULIN GLARGINE,BASAGLAR 100 UNIT/ML INSULN.PEN SQ SCH ×2 (08:40→21:00)
[2019-08-04] MEDS: METOPROLOL TARTRATE 50 MG TABLET GT SCH ×2 (08:44→21:00)
[2019-08-04] MEDS: LACTOBACILLUS RHAMNOSUS GG 1 EACH CAP.SPRINK GT SCH ×2 (08:44→17:24)
[2019-08-04] MEDS: HYDROGEN PEROXIDE 480 ML BOTTLE TP SCH ×2 (09:00→20:58)
[2019-08-04] MEDS: DAKINS HALF STRENGTH (0.25%) 480 ML BOTTLE TOP SCH ×2 (09:00→21:00)
[2019-08-04] MEDS: HYDROGEL DRESSING 90 GM TUBE TP SCH ×2 (09:00→21:00)
[2019-08-04] MEDS: Z GUARD REMEDY 4 OZ OINT TP SCH ×2 (09:00→21:00)
[2019-08-04] MEDS: CLOTRIMAZOLE 1% CREAM 24 GM TUBE TP SCH ×2 (09:00→21:00)
[2019-08-04] MEDS: AMMONIUM LACTATE 227 GM BOTTLE TP SCH ×2 (09:00→21:00)
[2019-08-04] MEDS: BETADINE 5% TP SCH (09:00)
[2019-08-04] MEDS: KETOCONAZOLE SHAMPOO 120 ML BOTTLE TP SCH (09:00)
[2019-08-04] MEDS: NEPRO 1,000 ML BOTTLE GT PRN (12:42)
--- NOTE | 2019-08-04 19:10 | NUR ---
Relayed preliminary blood culture result to LOPEZ Buckley. She ordered to repeat blood culture from [facility] with next dialysis. Pt will have dialysis tomorrow.
[2019-08-04] MEDS: ACETAMINOPHEN 650 MG/20 ML UDC- SA PATIENTS-FEVER ONLY GT PRN (19:35)
--- NOTE | 2019-08-04 19:35 | NUR ---
Prn Tylenol 650 mg via gt given for increase [id number] Temp 102.8 f, charge nurse aware comfort and cooling measures rendered. Will continue to monitor.
--- NOTE | 2019-08-04 19:49 | NUR ---
Relayed Hannah Phipps NP recent BP 78/45 P 133 R 18 T 102.8 02 98% order to give NS 0.9% IV @ 500ml ONCE read back and verified orders noted and carried out
--- NOTE | 2019-08-04 19:56 | NUR ---
RCVD TRACH PT ON MECH VENT WITH NOTED SETTINGS PER MD ORDERS. TRACH IS PATENT AND SECURED. TRUCK MECHANIC DONE. SX DONE PRN. VENT PLUGGED INTO RED OUTLET. ALARMS ON AND AUDIBLE. AMBU BAG @ BEDSIDE. NO RESP DISTRESS AT THIS TIME. WILL CONT TO MONITOR PT.
[2019-08-04] MEDS ORDERED: IV NS 0.9% 500 ML IV ONE (20:00)
--- NOTE | 2019-08-04 20:38 | NUR ---
MS RN S/P Bolus BP now is 107/58 R 19 P 110 02 99%. will cont to mtr
[2019-08-05] VITALS: BP 138/47
[2019-08-05] MEDS: INSULIN ASPART/LISPRO 100 UNIT/ML CARTRIDGE SQ PRN ×3 (00:01→11:24)
[2019-08-05] MEDS: ACETAMINOPHEN 650 MG/20 ML UDC- SA PATIENTS-PAIN ONLY GT PRN (01:35)
--- NOTE | 2019-08-05 01:35 | NUR ---
Tylenol 650 mg given for discomfort m/b increase hr 120's, Comfort measures rendered. Will continue to monitor.
--- NOTE | 2019-08-05 02:05 | NUR ---
All wound care done at this time, tolerated well. Will continue to monitor.
[2019-08-05 04:00] VITALS: BP 114/60
[2019-08-05] MEDS: METOCLOPRAMIDE HCL 10 MG/10 ML UDC GT SCH ×2 (05:18→12:02)
[2019-08-05] MEDS: OMEPRAZOLE 20 MG CAPSULE.DR GT SCH (05:18)
[2019-08-05] MEDS: BLOOD SUGAR DIAGNOSTIC 1 EACH STRIP IN SCH ×3 (05:31→11:21)
[2019-08-05] MEDS: POLYVINYL ALCOHOL 15 ML BOTTLE EACHEYE SCH ×2 (05:31→12:02)
[2019-08-05 08:00] VITALS: BP 91/70
[2019-08-05 08:04] VITALS: BP 91/70
[2019-08-05] MEDS: HYDROGEN PEROXIDE 480 ML BOTTLE TP SCH (08:56)
[2019-08-05] MEDS: AMMONIUM LACTATE 227 GM BOTTLE TP SCH (09:00)
[2019-08-05] MEDS: BETADINE 5% TP SCH (09:00)
[2019-08-05] MEDS: CLOTRIMAZOLE 1% CREAM 24 GM TUBE TP SCH (09:00)
[2019-08-05] MEDS: HYDROGEL DRESSING 90 GM TUBE TP SCH (09:00)
[2019-08-05] MEDS: DAKINS HALF STRENGTH (0.25%) 480 ML BOTTLE TOP SCH (09:00)
[2019-08-05] MEDS: Z GUARD REMEDY 4 OZ OINT TP SCH (09:00)
--- NOTE | 2019-08-05 09:03 | NUR ---
Notified Dr. Dia regarding patient's elevated HR 130-135, B/P 91/70, 18, 100%, T101.5, patient currently on ATB and BC was collected last Thursday due to temperature of 101, and LOPEZ Buckley ordered another blood culture from [facility] today. Dr. Dia said to call him when family comes so he can have a discussion with family re plan of care. Dr. Dia ordered to give 500 ml bolus NS x 1 for tachycardia. Order carried out.
[2019-08-05] MEDS: NEUTRA PHOS 1 POWD.PACKET GT SCH (09:11)
[2019-08-05] MEDS: LACTOBACILLUS RHAMNOSUS GG 1 EACH CAP.SPRINK GT SCH (09:11)
[2019-08-05] MEDS: VIT B CMPLX 3/FA/VIT C/BIOTIN 1 TAB TABLET GT SCH (09:11)
[2019-08-05] MEDS: ACETAMINOPHEN 650 MG/20.3 ML UDC GT SCH (09:11)
[2019-08-05] MEDS: SUCRALFATE 1 G/10 ML UDC GT SCH (09:11)
[2019-08-05] MEDS: MIDODRINE HCL (5MG) 5 MG TABLET GT SCH (09:11)
[2019-08-05] MEDS: ZINC SULFATE 220 MG CAPSULE GT SCH (09:11)
[2019-08-05] MEDS: PROSOURCE / PROSTAT (PYXIS) 30 ML UDC GT SCH (09:11)
[2019-08-05] MEDS: ASCORBIC ACID 500 MG TABLET GT SCH (09:11)
[2019-08-05] MEDS: MUPIROCIN OINT 2% 22 GM TUBE SCH (09:12)
[2019-08-05] MEDS: INSULIN GLARGINE,BASAGLAR 100 UNIT/ML INSULN.PEN SQ SCH (09:12)
[2019-08-05] MEDS ORDERED: IV NS 0.9% 500 ML IV ONE (10:30)
[2019-08-05 12:00] VITALS: BP 133/76
--- NOTE | 2019-08-05 12:15 | NUR ---
Notified Dr. Madsen that patient' stump has drainage coming out from the surgical wound. He said to paint the area with iodosorb.
--- NOTE | 2019-08-05 14:20 | NUR ---
Resident was transferred to [facility] ER from [facility]al dialysis due to tachycardia and elevated temperature. Left a message to Dr. Dia regarding transfer. Spoke and notified resident's daughter Adrienne of patient's transfer. Resident given to ER nurse Jose Luis regarding patient's condition, baseline status of the patient while in subacute such as episode of tachycardia, elevated temperature and episode of hypotension. Informed Jose Luis to notify Dr. Dia when family comes to visit the patient.
[2019-08-05] MEDS ORDERED: METO50TA16 GT (14:27)
[2019-08-05] MEDS ORDERED: ONDA4TAB5 GT (14:27)
[2019-08-05] MEDS ORDERED: BISA10SU11 RC (14:27)
[2019-08-05] MEDS ORDERED: CLON0.1T14 PO (14:27)
[2019-08-05] MEDS ORDERED: FOLI0.8T2 PO (14:27)
[2019-08-05] MEDS ORDERED: AMIK250V14 IJ (14:27)
[2019-08-05] MEDS ORDERED: DEXT15DR6 OP (14:27)
[2019-08-05] MEDS ORDERED: VANC1PLA9 IV (14:27)
[2019-08-05] MEDS ORDERED: MIDO10TA GT (14:27)
[2019-08-05] MEDS ORDERED: INSU100I26 SQ (14:27)
[2019-08-05] MEDS ORDERED: INSULIN GLARGINE,BASAGLAR 100 UNIT/ML INSULN.PEN SQ SCH (21:00)
--- NOTE | 2019-08-08 09:21 | NUR ---
RADHA contacted [facility] [phone] and spoke to Misa to notify them that the pt. will not be requiring Dialysis until further notice. Misa was agreeable to plan. RADHA contacted [facility] [phone] and spoke to Tima to notify them that the pt. will not be requiring transportation to [facility] until further notice. Tima was agreeable to plan. RADHA will contact [facility] when pt. requires transportation services to be reinstated.
== END 2019-08-05 19:59 | disposition short-term general hospital (02) | DRG 951 ==
LOC: SA 11:48
PROVIDERS: ADMIT Internal Medicine; ATTEND Internal Medicine
DX: J96.11 Chronic respiratory failure with hypoxia (principal); G93.40 Encephalopathy, unspecified; G93.1 Anoxic brain damage, not elsewhere classified; Z99.11 Dependence on respirator [ventilator] status; E11.10 Type 2 diabetes mellitus with ketoacidosis without coma; E46 Unspecified protein-calorie malnutrition; I96 Gangrene, not elsewhere classified; L89.154 Pressure ulcer of sacral region, stage 4; L89.324 Pressure ulcer of left buttock, stage 4; L89.314 Pressure ulcer of right buttock, stage 4; E11.22 Type 2 diabetes mellitus with diabetic chronic kidney disease; E11.52 Type 2 diabetes mellitus with diabetic peripheral angiopathy with gangrene; R53.2 Functional quadriplegia; R13.10 Dysphagia, unspecified; I12.0 Hypertensive chronic kidney disease with stage 5 chronic kidney disease or end stage renal disease; N18.6 End stage renal disease; D63.8 Anemia in other chronic diseases classified elsewhere; K21.9 Gastro-esophageal reflux disease without esophagitis; Z89.411 Acquired absence of right great toe; Z99.2 Dependence on renal dialysis; Z93.1 Gastrostomy status; E11.621 Type 2 diabetes mellitus with foot ulcer; E11.69 Type 2 diabetes mellitus with other specified complication; E66.01 Morbid (severe) obesity due to excess calories; E83.39 Other disorders of phosphorus metabolism; E87.1 Hypo-osmolality and hyponatremia; E87.6 Hypokalemia; F09 Unspecified mental disorder due to known physiological condition; I25.10 Atherosclerotic heart disease of native coronary artery without angina pectoris; I49.3 Ventricular premature depolarization; J98.11 Atelectasis; L97.419 Non-pressure chronic ulcer of right heel and midfoot with unspecified severity; Z74.01 Bed confinement status; Z86.73 Personal history of transient ischemic attack (TIA), and cerebral infarction without residual deficits; Z87.440 Personal history of urinary (tract) infections; Z89.432 Acquired absence of left foot; Z89.611 Acquired absence of right leg above knee; M86.9 Osteomyelitis, unspecified; Z79.4 Long term (current) use of insulin; Z89.612 Acquired absence of left leg above knee; Z93.0 Tracheostomy status
CPT/HCPCS: 31720; 36415; 36600; 71045-TC; 73552; 73630-TC; 74018; 80048-TC; 80053-TC; 80076-TC; 80150; 80202-TC; 81000-TC; 82150-TC; 82310-TC; 82565-TC; 82728-TC; 82784; 82803-TC; 82962-TC; 83540-TC; 83735-TC; 84100-TC; 84155; 84165; 84439-TC; 84443-TC; 84520-TC; 85025-TC; 85610-TC; 85730-TC; 86334; 86580-TC; 86850-TC; 87040-TC; 87070-TC; 87086-TC; 87186-TC; 88161-TC; 88309-TC; 88311-TC; 93307-TC; 93926-TC; 94002-TC; 94003-TC; 94640-TC; 94760-TC; 94762-TC; 94799-TC; 99082-TC; A4216; A4217; A4623; A6248; A6253; A7526; A9563; J0278; J0690; J0692; J0770; J1170; J1815; J2185; J2248; J2543; J2704; J2765; J3370; J3480; J3490; J7030; J7040; J7060; J8597; Q0162

== ENCOUNTER 2019-03-01 21:14 | Inpatient (IN) | payer OTHER ==
[~2019-03-01] VITALS: Ht 167.6 cm; Wt 50.3 kg
[~2019-03-01 21:14] MED LIST changes: +ACET650S13 RC; +ALLA266C2 TP; +ASCO500T9 GT; -ASPI-1169 GT; +BLOO-668 IN; +CEFE1VIA3 IV; -CRAN450C GT; +DEXT50DI8 IV; -DOCU50LI GT; -HEPA500014 SQ; +INSU100C4 SQ; -INSU100I26 SQ; +INSU100I30 SQ; -INSU100V36 SQ; +LACT1CAP72 GT; +MAG30ORA PO; +MEROPENEM 500 MG in IV NS 0.9% 50 ML IV SCH; -METO-295 GT; +METO10SY IV; +METR500T PO; +Nepro GT; -OMEP40CA13 GT; +ONDA2VIA IVP; -ONDA4TAB10 GT; +PANT40SU2 GT; -RXAMI XX; +SODI473S8 TOP; +SUCR1ORA6 GT; +SULF1TAB3 PO; +VIT1TABL44 GT; -VIT500LI GT; +VITA56.7 TP; +ZINC220T GT; -ZINC220T4 GT; -ampicillin IV
[2019-03-01] MEDS ORDERED: IV 1/2NS 1000 ML 1,000 ML IV PRN (21:15)
[2019-03-01] MEDS ORDERED: Z GUARD REMEDY 2 OZ OINT TP PRN (21:30)
[2019-03-01] MEDS ORDERED: INSULIN REGULAR, HUMAN 100 UNIT in IV NS 0.9% 99 ML IV PRN ×2 (21:30)
[2019-03-01] MEDS ORDERED: ACETAMINOPHEN 325 MG TABLET PO PRN (21:30)
[2019-03-01] MEDS ORDERED: MAGNESIUM HYDROXIDE 30 ML UDC PO PRN (21:30)
[2019-03-01] MEDS ORDERED: MAG HYDROX/AL HYDROX/SIMETH 30 ML UDC PO PRN ×2 (21:30→22:00)
[2019-03-01] MEDS ORDERED: ZOLPIDEM TARTRATE 5 MG TABLET PO PRN (21:30)
[2019-03-01 21:40] VITALS: BP 130/57
[2019-03-01 22:00] VITALS: BP 101/38
[2019-03-01] MEDS ORDERED: ACETAMINOPHEN 650 MG/SUPP.RECT RC PRN (22:00)
[2019-03-01] MEDS ORDERED: ACETAMINOPHEN 325 MG TABLET MC PRN (22:00)
[2019-03-01] MEDS ORDERED: CLONIDINE HCL 0.1 MG TABLET GT PRN (22:00)
[2019-03-01] MEDS ORDERED: ERGOCALCIFEROL (VITAMIN D 2) 50,000 UNIT CAPSULE GT SCH (22:00)
[2019-03-01] MEDS ORDERED: VITAMINS A AND D 56.7 GM TUBE TP PRN (22:00)
[2019-03-01] MEDS ORDERED: BISACODYL SUPP (10 MG) 10 MG/SUPP.RECT SUPP.RECT RC PRN (22:00)
--- NOTE | 2019-03-01 22:02 | NUR ---
PT TRANSFERRED TO ICU FROM [facility]. PT IS TRACHED ON VENT. PLACED ON ESPRIT VENT. NO DISTRESS. SX'D FOR MOD AMT OF THICK PALE SECRETIONS. VENT ALARMS SET AND AUDIBLE. AMBU BAG AT BEDSIDE. TRACH SECURE, CUFF EAR SPECIALIST. WILL CONTINUE TO MONITOR. Addendum: 03/01/19 at 2204 by AUDI KOHLI RT Amended: Links added.
[2019-03-01 22:08] LABS: ALBUMIN 2.5 g/dL (3.4-5.0); BILIRUBIN,TOTAL 0.5 mg/dL (0.2-1.0); CALCIUM, SERUM 9.6 mg/dL (8.5-10.1); CREATININE 4.8 mg/dL (0.6-1.3); POTASSIUM 4.1 mmol/L (3.5-5.1); TOTAL PROTEIN, SERUM 8.5 g/dL (6.4-8.2)
[2019-03-01] MEDS ORDERED: INSULIN REGULAR, HUMAN 100 UNIT/ML 3 ML VIAL ONE (22:25)
[2019-03-01] MEDS ORDERED: MEROPENEM 500 MG in IV NS 0.9% 50 ML IV ONE (22:30)
[2019-03-01 23:00] VITALS: BP 104/35
[2019-03-01] MEDS ORDERED: VANCOMYCIN 1 GM in IV NS 0.9% 250 ML IV ONE (23:00)
[2019-03-01] MEDS: FENOFIBRATE NANOCRYS (145 MG) 145 MG TABLET GT SCH (23:19)
[2019-03-01] MEDS: SUCRALFATE 1 G/10 ML UDC GT SCH (23:19)
[2019-03-01] MEDS: BLOOD SUGAR DIAGNOSTIC 1 EACH STRIP IN SCH (23:19)
[2019-03-01] MEDS: INSULIN REGULAR, HUMAN 100 UNIT in IV NS 0.9% 99 ML IV PRN ×2 (23:39)
[2019-03-01 23:45] VITALS: BP 104/35
[2019-03-02] VITALS (52 sets, daily range): BP systolic 100–186; BP diastolic 39–124
[2019-03-02] MEDS: BLOOD SUGAR DIAGNOSTIC 1 EACH STRIP IN SCH ×20 (00:27→23:10)
[2019-03-02 02:57] LABS: CALCIUM, SERUM 9.7 mg/dL (8.5-10.1); CREATININE 4.9 mg/dL (0.6-1.3); POTASSIUM 3.5 mmol/L (3.5-5.1)
--- NOTE | 2019-03-02 03:00 | NUR ---
NOTIFIED TRANSPORTER DRIVER KRISTEN JASSO NP THAT PT SUGAR LEVEL IS 65 AND THAT INSULIN DRIP WAS STOPPED. RECEIVED ORDERS TO RECHECK SUGAR Q4H STARTING AT [address] PT ON MILD SLIDING SCALE. READ BACK ORDERS PERFORMED AND CARRIED OUT.
[2019-03-02] MEDS ORDERED: INSULIN REGULAR, HUMAN 100 UNIT/ML 3 ML VIAL SQ PRN (04:00)
[2019-03-02] MEDS ORDERED: DEXTROSE 50%-WATER 50 ML DISP.SYRIN IV PRN (04:00)
[2019-03-02 04:57] LABS: BASOPHILS # (AUTO) 0.1 /CMM (0.0-0.2); BASOPHILS % (AUTO) 0.6 % (0.0-2.0); EOSINOPHILS % (AUTO) 7.1 % (0.0-6.0); HEMATOCRIT 38 % (39-51); HEMOGLOBIN 12.2 g/dL (13.5-17.5); LYMPHOCYTES # (AUTO) 2.8 /CMM (0.8-4.8); LYMPHOCYTES % (AUTO) 12.8 % (20.0-44.0); MEAN CORPUSCULAR HGB CONC 32 g/dl (31.0-36.0); MEAN CORPUSCULAR VOLUME 94 fL (80-96); MONOCYTES # (AUTO) 2.5 /CMM (0.1-1.30); MONOCYTES % (AUTO) 11.3 % (2.0-12.0); NEUTROPHILS # (AUTO) 14.8 /CMM (1.8-8.9); NEUTROPHILS % (AUTO) 68.2 % (43.0-81.0); PLATELET COUNT (AUTO) 529 /CMM (150-450); RED BLOOD CELL COUNT(AUTO) 4.05 MIL/uL (4.5-6.0); WHITE BLOOD COUNT (AUTO) 21.7 K/uL (4.3-11.0)
[2019-03-02] MEDS ORDERED: METRONIDAZOLE 500 MG TABLET PO SCH (05:00)
[2019-03-02 05:28] LABS: ALBUMIN 2.5 g/dL (3.4-5.0); BILIRUBIN,TOTAL 0.5 mg/dL (0.2-1.0); CALCIUM, SERUM 9.6 mg/dL (8.5-10.1); CREATININE 4.9 mg/dL (0.6-1.3); MAGNESIUM 2.5 mg/dL (1.8-2.4); PHOSPHORUS 4.5 mg/dL (2.5-4.9); POTASSIUM 4.1 mmol/L (3.5-5.1); TOTAL PROTEIN, SERUM 8.3 g/dL (6.4-8.2)
--- NOTE | 2019-03-02 06:55 | NUR ---
PT REMAINS IN NO ACUTE DISTRESS IN BED. PT DID NOT HAVE ANY SIGNIFICANT CHANGE IN CONDITION DURING SHIFT. ALL NEEDS MET, ALL ORDERS CARRIED OUT. PT TOLERATED VENT SETTING WELL. WILL ENDORSE CARE TO AM RN FOR CONTINUITY OF CARE.
[2019-03-02] MEDS ORDERED: VANCOMYCIN 500 MG in IV D5W 100 ML IV PRN (07:30)
--- NOTE | 2019-03-02 07:30 | NUR ---
RECEIVED CARE OF PATIENT. CHRONIC VENT TRACH TOLERATING VENT SETTINGS PER MD ORDER. NO SOB, DIFFICULTY BREATHING NOTED. PATIENT AWAKE NOT FOLLOWING COMMANDS. MIDLINE C/D/I/P WITH IVF PER MD ORDER. RIGHT CW ERNESTO C/D/I. PENDING RENAL CONSULT AND HD TODAY. ANURIC WITHOUT PAPPAS CATH. PER RN FLEXISEAL INSERTED PATIENT NOTED WITH LOOSE STOOL; MINIMAL OUTPUT AT THIS TIME; WILL MONITOR. 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 PATIENT ON ISOLATION CRE SPUTUM HX. PER RN PATIENT WAS ON INSULIN GTT BUT HAS BEEN STOPPED DUE TO LOW BLOOD SUGAR AND PER ORDER CO2 OVER 18..HOWEVER ANION GAP STILL ELEVATED. WILL F/U WITH PRIMARY MD. SKIN, SAFETY, ASPIRATION, AND ISOLATION PRECAUTIONS IN PLACE AND WILL CONTINUE TO MONITOR
--- NOTE | 2019-03-02 07:42 | NUR ---
RT PATIENT REC'D TRACHED ON [facility] VENT WITH ORDERED SETTINGS. VENT ALARMS CHECKED + AUDIBLE. AIRWAY SUCTIONED WITH SMALL AMT OF PALE SEMI-THICK SECRETIONS. AMBU BAG AT HOB. Addendum: 03/02/19 at 1801 by LIV MANZANO RT Amended: Links added.
[2019-03-02] MEDS: VIT B CMPLX 3/FA/VIT C/BIOTIN 1 TAB TABLET GT SCH (08:13)
[2019-03-02] MEDS: LACTOBACILLUS RHAMNOSUS GG 1 EACH CAP.SPRINK GT SCH ×2 (08:14→17:23)
[2019-03-02] MEDS: HYDROCODONE/APAP 5/325MG 1 EACH TABLET GT SCH (08:14)
[2019-03-02] MEDS: Z GUARD REMEDY 2 OZ OINT TP PRN ×2 (08:14→14:24)
[2019-03-02] MEDS: ASCORBIC ACID 500 MG TABLET GT SCH (08:14)
[2019-03-02] MEDS: SUCRALFATE 1 G/10 ML UDC GT SCH (08:14)
[2019-03-02] MEDS: PANTOPRAZOLE 40 MG/PACK PACK GT SCH (08:14)
[2019-03-02 08:47] LABS: ABG BASE EXCESS -4.6 mmol/L; ABG OXYGEN SATURATION 99.2 % (92.0-98.5); ABG PH 7.434 (7.350-7.450); ABG PO2 179.7 mmHg (75.0-100.0); AaDO2 73.3 mmHg; COHb 1.1 % (0.5-1.5); MetHb 0.3 % (0.0-1.5); O2Hb 97.8 % (94.0-97.0); SITE, ABG Left Radial
--- NOTE | 2019-03-02 08:50 | NUR ---
PER OIL BURNER SERVICER AND INSTALLER LOUISA ORDERS BLOOD SUGAR UNDER 150 (THIS AM 139) ORDER STAT BMP. PER ORDER CO2 OVER 18, WHICH IT IS, CONTINUE TO HOLD INSULIN GTT
[2019-03-02] MEDS ORDERED: SULFAMETH/TRIMETH 800/160 MG 1 UDTAB TABLET PO SCH (09:00)
[2019-03-02] MEDS ORDERED: INSULIN GLARGINE, 100 UNIT/ML CARTRIDGE SQ SCH (09:00)
[2019-03-02] MEDS ORDERED: DAKINS QUARTER STRENGTH (0.125%) 480 ML BOTTLE TOP SCH (09:00)
[2019-03-02 09:31] LABS: CALCIUM, SERUM 9.7 mg/dL (8.5-10.1); CREATININE 5.2 mg/dL (0.6-1.3); POTASSIUM 4.4 mmol/L (3.5-5.1)
--- NOTE | 2019-03-02 09:50 | NUR ---
MESSAGE TO DR CAREY HERNANDEZ REGARDING DESIRE TO CONTINUE INSULIN GTT. PATIENT BICARB LEVEL STILL OVER 18 HOWEVER ANION GAP INCREASING AND NOW 26.
[2019-03-02] MEDS: MEROPENEM 500 MG in IV NS 0.9% 50 ML IV SCH ×2 (10:18→20:14)
--- NOTE | 2019-03-02 10:20 | NUR ---
SPOKE WITH DR HERNANDEZ AT BEDSIDE. UPDATED ON LABS AND VS. PER MD PLEASE INITIATE INSULIN GTT PER PROTOCOL ALGORITHM #2. PLEASE START IVF D5 1/2NS @ 125; 175ML/HR IS TOO MUCH FOR HD PATIENT AND NO POTASSIUM IN THE IVF. HD RN AT BEDSIDE FOR HD.
[2019-03-02] MEDS: IV D5/0.45 NACL 1,000 ML IV PRN ×2 (10:54→19:32)
--- NOTE | 2019-03-02 11:00 | NUR ---
0900 DR SIMON AT BEDSIDE FOR CONSULT. 1030 DR NAJERA AT BEDSIDE FOR CONSULT 1100 ISIS JUAREZ AT BEDSIDE FOR WOUND CARE CONSULT.
[2019-03-02] MEDS: HYDROGEL DRESSING 90 GM TUBE TP SCH ×2 (12:42→21:15)
[2019-03-02] MEDS ORDERED: FEE PK DOSING 1 MIN EA MC ONE (13:36)
--- NOTE | 2019-03-02 14:38 | NUR ---
PRN CLONIDINE GIVEN S/P SBP 176 PER ORDER.
[2019-03-02] MEDS: INSULIN REGULAR, HUMAN 100 UNIT in IV NS 0.9% 99 ML IV PRN ×2 (15:12)
[2019-03-02 15:27] LABS: CALCIUM, SERUM 9.2 mg/dL (8.5-10.1); CREATININE 3.3 mg/dL (0.6-1.3); POTASSIUM 3.2 mmol/L (3.5-5.1)
--- NOTE | 2019-03-02 19:10 | NUR ---
per dr das stop insulin gtt once anion gap under 15. per start patient on mild sliding scale npo accu checks. report given to rosemary for shruthi. all due meds given and all needs met. skin, safety, aspiration, and isolation precautions all in place and monitored. tolerating vent without complications. patient continues insulin gtt per protocol at 0.5u/hr. pending 1900 bmp per protocol
[2019-03-02 19:51] LABS: CALCIUM, SERUM 9.4 mg/dL (8.5-10.1); CREATININE 3.4 mg/dL (0.6-1.3); POTASSIUM 3.5 mmol/L (3.5-5.1)
[2019-03-02] MEDS: ONDANSETRON HCL/PF 4 MG/2 ML VIAL IVP PRN (20:07)
--- NOTE | 2019-03-02 20:20 | NUR ---
ICU/POLYMER MATERIALS CONSULTANT PT IS ON Q 1 HR ACCU CHECK WITH SLIDING SCALE INSULIN DRIP. PT ALSO HAS Q 4 HR BMP FOR ANION GAP, WHICH IS REQUIRED TO BE BELOW 15 TO TURNED OFF THE DRIP. CURRENTLY IT WAS 16 AT 1999, WILL RECHECK THE ANION GAP AT 2300. PT WILL CONTINUE TO BE Q 1 HR ACCU CHECK TILL ANION GAP IS NORMAL.
--- NOTE | 2019-03-02 21:10 | NUR ---
ICU/PR SPECIALIST BLOOD SUGAR IS 87, WHICH PER MD'S ORDER AND ALGORITHM 2 THE INSULIN DRIP IS TURNED OFF. WILL CONTINUE TO RECHECK THE SUGAR IN 1 HR. PT WAS TURNED AND REPOSITIONED FOR COMFORT AND CARE.
[2019-03-02] MEDS: FENOFIBRATE NANOCRYS (145 MG) 145 MG TABLET GT SCH (21:16)
--- NOTE | 2019-03-02 22:12 | NUR ---
ICU/MARBLE WORKER INSULIN DRIP WAS RESTARTED BY CHARGE NURSE RN WHO WAS NOTIFIED OF THE BLOOD SUGAR OF 125, WHICH REQUIRED 0.5 INSULIN. WILL CONTINUE TO MONITOR THIS SUGAR PER MD ORDERERS.
[2019-03-02 23:31] LABS: CALCIUM, SERUM 8.9 mg/dL (8.5-10.1); CREATININE 3.5 mg/dL (0.6-1.3); POTASSIUM 4.1 mmol/L (3.5-5.1)
[2019-03-03] VITALS (24 sets, daily range): BP systolic 128–165; BP diastolic 52–93
--- NOTE | 2019-03-03 00:10 | NUR ---
ICU/CHARGE ACCOUNTS AUDIT CLERK LATEST ANION GAP IS 19, PT WILL REMAIN ON CURRENT Q 4 CHEM PANEL TO CHECK LEVEL. NEXT CHEM PANEL IS 0300. CURRENT BLOOD SUGAR IS 135, WITH NO CHANGE IN SLIDING SCALE. WILL CONTINUE TO MONITOR THIS PT'S SUGARS ORDERED.
[2019-03-03] MEDS: BLOOD SUGAR DIAGNOSTIC 1 EACH STRIP IN SCH ×14 (00:18→23:52)
--- NOTE | 2019-03-03 02:05 | NUR ---
ICU/RIGHT OF WAY CUTTER PT WAS GIVEN AM CARE, ALONG WITH ORAL CARE. PT TOLERATED THIS WELL REMAINS ON CURRENT VENT SETTINGS WITH SATURATION AT 99-100%. PT WAS TURNED AND REPOSITIONED FOR COMFORT AND CARE. NO ACUTE DISTRESS SEEN AT THIS TIME. ALSO DRESSING CHANGES WERE DONE AT THIS TIME, WILL CONTINUE TO MONITOR THIS PT.
[2019-03-03] MEDS: IV D5/0.45 NACL 1,000 ML IV PRN (03:28)
--- NOTE | 2019-03-03 04:20 | NUR ---
ICU/LINOTYPE OPERATOR AM LABS WERE DONE AWAIT FOR ANY ABNORMAL VALUES.
[2019-03-03 05:01] LABS: BASOPHILS # (AUTO) 0.1 /CMM (0.0-0.2); BASOPHILS % (AUTO) 0.5 % (0.0-2.0); EOSINOPHILS % (AUTO) 13.3 % (0.0-6.0); HEMATOCRIT 36 % (39-51); HEMOGLOBIN 11.4 g/dL (13.5-17.5); LYMPHOCYTES # (AUTO) 2.2 /CMM (0.8-4.8); LYMPHOCYTES % (AUTO) 11.3 % (20.0-44.0); MEAN CORPUSCULAR HGB CONC 32 g/dl (31.0-36.0); MEAN CORPUSCULAR VOLUME 95 fL (80-96); MONOCYTES % (AUTO) 5.3 % (2.0-12.0); NEUTROPHILS # (AUTO) 13.7 /CMM (1.8-8.9); NEUTROPHILS % (AUTO) 69.6 % (43.0-81.0); PLATELET COUNT (AUTO) 492 /CMM (150-450); RED BLOOD CELL COUNT(AUTO) 3.82 MIL/uL (4.5-6.0); WHITE BLOOD COUNT (AUTO) 19.7 K/uL (4.3-11.0)
[2019-03-03 05:24] LABS: ALBUMIN 2.2 g/dL (3.4-5.0); BILIRUBIN,TOTAL 0.5 mg/dL (0.2-1.0); CALCIUM, SERUM 8.7 mg/dL (8.5-10.1); CREATININE 3.4 mg/dL (0.6-1.3); MAGNESIUM 2.1 mg/dL (1.8-2.4); PHOSPHORUS 5.3 mg/dL (2.5-4.9); POTASSIUM 3.5 mmol/L (3.5-5.1); TOTAL PROTEIN, SERUM 7.6 g/dL (6.4-8.2)
--- NOTE | 2019-03-03 06:50 | NUR ---
ICU/DRUPAL ARCHITECT BLOOD SUGAR WAS 83, INSULIN DRIP TURNED OFF TILL NEXT BLOOD SUGAR CHECK AT 0800. DAY NURSE AWARE OF THIS.
[2019-03-03] MEDS: PANTOPRAZOLE 40 MG/PACK PACK GT SCH (06:56)
[2019-03-03] MEDS: MEROPENEM 500 MG in IV NS 0.9% 50 ML IV SCH ×2 (08:11→21:02)
[2019-03-03] MEDS: SUCRALFATE 1 G/10 ML UDC GT SCH (09:22)
[2019-03-03] MEDS: HYDROCODONE/APAP 5/325MG 1 EACH TABLET GT SCH (09:23)
[2019-03-03] MEDS: VIT B CMPLX 3/FA/VIT C/BIOTIN 1 TAB TABLET GT SCH (09:23)
[2019-03-03] MEDS: ASCORBIC ACID 500 MG TABLET GT SCH (09:23)
[2019-03-03] MEDS: LACTOBACILLUS RHAMNOSUS GG 1 EACH CAP.SPRINK GT SCH ×2 (09:23→16:11)
[2019-03-03] MEDS: HYDROGEL DRESSING 90 GM TUBE TP SCH ×2 (09:23→21:11)
[2019-03-03 09:28] LABS: CALCIUM, SERUM 8.6 mg/dL (8.5-10.1); CREATININE 3.7 mg/dL (0.6-1.3); POTASSIUM 3.7 mmol/L (3.5-5.1)
[2019-03-03] MEDS: PROSOURCE / PROSTAT (PYXIS) 30 ML UDC GT SCH ×2 (11:00→16:11)
[2019-03-03] MEDS ORDERED: DEXTROSE 50%-WATER 50 ML DISP.SYRIN IV PRN (11:00)
[2019-03-03] MEDS: NEPRO 1,000 ML BOTTLE GT PRN (11:44)
[2019-03-03] MEDS: DAKINS QUARTER STRENGTH (0.125%) 480 ML BOTTLE TOP SCH (12:00)
[2019-03-03] MEDS: CLOTRIMAZOLE 1% 15 GM TUBE TP SCH ×2 (13:23→16:12)
[2019-03-03] MEDS: INSULIN REGULAR, HUMAN 100 UNIT/ML 3 ML VIAL SQ PRN ×2 (18:13→23:56)
--- NOTE | 2019-03-03 19:20 | NUR ---
HANH RN OPENING NOTES RECEIVED BEDSIDE REPORT. PATIENT OBTUNDED. OPENS EYES, DOES NOT FOLLOW COMMANDS. NO SIGNS OR SYMPTOMS OF RESPIRATORY DISTRESS. ON TRACH VENT SETTINGS ORDERED, TOLERATING WELL, SATURATING 100%. ON TELE MONITOR SINUS TACH HR 102. GTF OF NEPRO 1.8 @ 40ML/HR. PLACEMENT CHECKED, MINIMAL RESIDUAL NOTED. RECTAL TUBE IN PLACE, LIQUID DARK BROWN STOOL NOTED. HOB ELEVATED <30 DEGREES. ASPIRATION AND SAFETY PRECAUTIONS IN PLACE, BED LOCKED AND IN LOW POSITION. WILL CONT TO MONITOR PT CLOSELY.
--- NOTE | 2019-03-03 20:00 | NUR ---
HANH RN NOTES PATIENT VOMITED. WILL HOLD GTUBE FEEDING FOR NOW. WILL CONT TO MONITOR.
[2019-03-03] MEDS: ONDANSETRON HCL/PF 4 MG/2 ML VIAL IVP PRN (21:02)
--- NOTE | 2019-03-03 21:05 | NUR ---
RT NOTE PATIENT RECEIVED ON TRACHED ON MECHANICAL VENTILATION. CUFF CHECKED VIA FUSING LINE INSPECTOR. AMBU BAG @ BEDSIDE. VENT PLUGGED TO RED OUTLET. ALARMS ON AND AUDIBLE. SX DONE, SMALL THICK WHITE YELLOW SECRETIONS NOTED. WILL CONTINUE TO MONITOR T/O SHIFT. Addendum: 03/03/19 at 2109 by MARCIA YOUNG RT Amended: Links added.
[2019-03-03] MEDS: FENOFIBRATE NANOCRYS (145 MG) 145 MG TABLET GT SCH (22:31)
[2019-03-04] VITALS (7 sets, daily range): BP systolic 112–168; BP diastolic 37–84
[2019-03-04] MEDS: BLOOD SUGAR DIAGNOSTIC 1 EACH STRIP IN SCH ×3 (06:39→17:35)
[2019-03-04] MEDS: INSULIN REGULAR, HUMAN 100 UNIT/ML 3 ML VIAL SQ PRN ×2 (06:42→17:38)
--- NOTE | 2019-03-04 07:15 | NUR ---
[facility] RN CLOSING NOTES PATIENT IN BED, OBTUNDED. OPENS EYES, DOES NOT FOLLOW COMMANDS. NO SIGNS OR SYMPTOMS OF RESPIRATORY DISTRESS. ON TRACH VENT SETTINGS ORDERED, TOLERATING WELL, SATURATING 98%. ON TELE MONITOR SINUS TACH HR 102. GTF OF NEPRO 1.8 @ 35ML/HR, PLACEMENT CHECKED, MINIMAL RESIDUAL NOTED, NO N/V NOTED. RECTAL TUBE IN PLACE, LIQUID BROWN STOOL NOTED. HOB ELEVATED <30 DEGREES. ASPIRATION AND SAFETY PRECAUTIONS IN PLACE, BED LOCKED AND IN LOW POSITION. REPOSITIONED Q2H. NO ACUTE CHANGES THROUGHOUT SHIFT. ALL MD ORDERS ATTENDED. ALL NEEDS ANTICIPATED AND MET. ENDORSED TO AM RN FOR MARKELL.
--- NOTE | 2019-03-04 07:25 | NUR ---
RN OPENING NOTES RECEIVED REPORT BEDSIDE, PATIENT OBTUNDED IN VENT OPENS EYES. ON TELE MONITOR, ST. MULTIPLE WOUNDS. ON GTF NEPRO AT 40 ML/HR. HAS RIGHT IJ ERNESTO CATH AND RIGHT UA MIDLINE. HD TODAY. SACRAL DEBRIDEMENT TODAY WELL. BED LOCKED AND IN LOWEST POSITION. WILL CONT TO MONITOR THROUGHOUT THE SHIFT
[2019-03-04 07:49] LABS: BASOPHILS % (AUTO) 0.2 % (0.0-2.0); EOSINOPHILS % (AUTO) 13.9 % (0.0-6.0); HEMATOCRIT 39 % (39-51); LYMPHOCYTES # (AUTO) 1.8 /CMM (0.8-4.8); LYMPHOCYTES % (AUTO) 9.4 % (20.0-44.0); MEAN CORPUSCULAR HGB CONC 31 g/dl (31.0-36.0); MEAN CORPUSCULAR VOLUME 93 fL (80-96); MONOCYTES % (AUTO) 5.4 % (2.0-12.0); NEUTROPHILS # (AUTO) 13.6 /CMM (1.8-8.9); NEUTROPHILS % (AUTO) 71.1 % (43.0-81.0); PLATELET COUNT (AUTO) 551 /CMM (150-450); RED BLOOD CELL COUNT(AUTO) 4.16 MIL/uL (4.5-6.0); WHITE BLOOD COUNT (AUTO) 19.1 K/uL (4.3-11.0)
[2019-03-04 07:55] LABS: CREATININE 4.6 mg/dL (0.6-1.3); POTASSIUM 3.7 mmol/L (3.5-5.1)
--- NOTE | 2019-03-04 08:30 | NUR ---
RN NOTES PATIENT'S BLOOD PRESSURE CHECKED BY CUSTOMER SERVICE CONSULTANT WAS 168/83 HR 107. RECHECKED ON LEFT LOWER ARM, SBP 144 HR 106. PATIENT HAS KLONIPIN FOR SBP >170
[2019-03-04] MEDS: MEROPENEM 500 MG in IV NS 0.9% 50 ML IV SCH (08:42)
[2019-03-04] MEDS: SUCRALFATE 1 G/10 ML UDC GT SCH (08:42)
[2019-03-04] MEDS: VIT B CMPLX 3/FA/VIT C/BIOTIN 1 TAB TABLET GT SCH (08:43)
[2019-03-04] MEDS: LACTOBACILLUS RHAMNOSUS GG 1 EACH CAP.SPRINK GT SCH ×2 (08:43→16:19)
[2019-03-04] MEDS: ASCORBIC ACID 500 MG TABLET GT SCH (08:43)
[2019-03-04] MEDS: PANTOPRAZOLE 40 MG/PACK PACK GT SCH (08:43)
[2019-03-04] MEDS: HYDROCODONE/APAP 5/325MG 1 EACH TABLET GT SCH (08:43)
[2019-03-04] MEDS: CLOTRIMAZOLE 1% 15 GM TUBE TP SCH ×2 (08:51→16:24)
[2019-03-04] MEDS: Z GUARD REMEDY 2 OZ OINT TP PRN (08:51)
[2019-03-04] MEDS: DAKINS QUARTER STRENGTH (0.125%) 480 ML BOTTLE TOP SCH (08:51)
[2019-03-04] MEDS: HYDROGEL DRESSING 90 GM TUBE TP SCH ×2 (08:51→21:47)
[2019-03-04] MEDS: PROSOURCE / PROSTAT (PYXIS) 30 ML UDC GT SCH ×2 (08:52→16:19)
[2019-03-04] MEDS ORDERED: LIDOCAINE 1%-EPI 1:100,000 20 ML VIAL TP ONE (10:00)
--- NOTE | 2019-03-04 10:30 | NUR ---
RN NOTES PATIENT HAVING DIALYSIS AT THIS TIME. PER NOC SHIFT, THERE IS AN ORDER TO GET BLOOD CULTURE FROM HD PORT. CALLED LAB TO GET THE TUBES
--- NOTE | 2019-03-04 10:59 | NUR ---
WOUND CARE CONSULT WOUND CARE RECEIVED CONSULT FOR RIGHT TOES, RIGHT HEEL AND SACRAL WOUND. WOUND CARE WILL DEFER CONSULT AND ALL TREATMENT PLANS TO PLASTIC SURGICAL TEAM INCLUDING DPSandeep NAJERA WHO ARE ALL CURRENTLY FOLLOWING THIS PATIENT. PATIENT WITH PAULIE AT 11, ALL PRESSURE ULCER PREVENTION MEASURES ARE NOTED TO BE IN PLACE. WILL SEE PRN.
--- NOTE | 2019-03-04 11:45 | NUR ---
RN NOTES SACRAL DEBRIDEMENT HAS BEEN CANCELLED TODAY DUE TO PATIENT HAVING DIALYSIS AT THIS TIME. PER MD EDUARDO, PATIENT WILL HAVE IT BY THURSDAY. IT IS ORDERED A SERIAL DEBRIDEMENT
--- NOTE | 2019-03-04 12:34 | NUR ---
RN NOTES PATIENT'S MICROBIOLOGY FOR CDIFF CAME BACK - NEGATIVE FOR CDIFF
[2019-03-04] MEDS: NEPRO 1,000 ML BOTTLE GT PRN (16:21)
--- NOTE | 2019-03-04 18:47 | NUR ---
RN CLOSING NOTES PATIENT IN BED, OBTUNDED. OPENS EYES. ON VENT, SATING 100%. ON TELE MONITOR, ST 110s. HAS FLEXISEAL WITH BROWN AND SOFT DIARRHEA. NEGATIVE FOR CDIFF. WOUND CARE DONE. ON GTF, 40ML/HR. NO VOMITING THROUGHOUT THE SHIFT. HAS A RIGHT IJ ERNESTO CATH - HD TODAY NO OUTPUT. HAS A RIGHT UA MIDLINE TKO. LAST BS WAS 164, 3 UNITS INSULIN COVERAGE. SACRAL DEBRIDEMENT PENDING. BED LOCKED AND IN LOW POSITION. WILL ENDORSE TO NOC SHIFT FOR MARKELL
--- NOTE | 2019-03-04 19:48 | NUR ---
RN INITIAL NOTES RECEIVED, PATIENT OBTUNDED IN VENT OPENS EYES. ON TELE MONITOR, ST, PER RM 100'S-110. MULTIPLE WOUNDS. ON GTF NEPRO AT 40 ML/HR. HAS RIGHT IJ ERNESTO CATH AND RIGHT UA MIDLINE. HD TODAY. SACRAL DEBRIDEMENT TODAY WELL. BED LOCKED AND IN LOWEST POSITION. WILL CONT TO MONITOR THROUGHOUT THE SHIFT
[2019-03-04] MEDS: METRONIDAZOLE 500 MG TABLET PO SCH (21:43)
[2019-03-04] MEDS: COLISTIMETHATE SODIUM 100 MG in IV NS 0.9% 50 ML IV SCH (21:43)
[2019-03-04] MEDS: FENOFIBRATE NANOCRYS (145 MG) 145 MG TABLET GT SCH (21:43)
[2019-03-05] VITALS: BP 114/45
[2019-03-05] MEDS: BLOOD SUGAR DIAGNOSTIC 1 EACH STRIP IN SCH ×5 (00:23→23:22)
[2019-03-05] MEDS: INSULIN REGULAR, HUMAN 100 UNIT/ML 3 ML VIAL SQ PRN ×4 (00:24→23:32)
[2019-03-05 04:00] VITALS: BP 116/48
[2019-03-05] MEDS: METRONIDAZOLE 500 MG TABLET PO SCH ×3 (05:16→20:45)
--- NOTE | 2019-03-05 06:00 | NUR ---
RN CLOSING NOTES ENDORSED, PATIENT OBTUNDED IN VENT OPENS EYES. ON TELE MONITOR, ST, PER RM 100'S-110. MULTIPLE WOUNDS, TX DONE, DRESSING CHANGED. ON GTF NEPRO AT 40 ML/HR. HAS RIGHT IJ ERNESTO CATH AND RIGHT UA MIDLINE. HD TODAY. SACRAL DEBRIDEMENT TODAY WELL. BED LOCKED AND IN LOWEST POSITION. WILL ENDORSE TO AM RN TO MONITOR .
[2019-03-05 07:34] LABS: BASOPHILS # (AUTO) 0.1 /CMM (0.0-0.2); BASOPHILS % (AUTO) 0.3 % (0.0-2.0); EOSINOPHILS % (AUTO) 8.9 % (0.0-6.0); HEMATOCRIT 40 % (39-51); HEMOGLOBIN 12.4 g/dL (13.5-17.5); LYMPHOCYTES # (AUTO) 2.3 /CMM (0.8-4.8); LYMPHOCYTES % (AUTO) 10.1 % (20.0-44.0); MEAN CORPUSCULAR HGB CONC 31 g/dl (31.0-36.0); MEAN CORPUSCULAR VOLUME 94 fL (80-96); MONOCYTES # (AUTO) 1.1 /CMM (0.1-1.30); MONOCYTES % (AUTO) 4.7 % (2.0-12.0); NEUTROPHILS # (AUTO) 17.3 /CMM (1.8-8.9); PLATELET COUNT (AUTO) 527 /CMM (150-450); RED BLOOD CELL COUNT(AUTO) 4.29 MIL/uL (4.5-6.0); WHITE BLOOD COUNT (AUTO) 22.8 K/uL (4.3-11.0)
[2019-03-05 07:50] LABS: CALCIUM, SERUM 8.7 mg/dL (8.5-10.1); CREATININE 3.9 mg/dL (0.6-1.3); POTASSIUM 3.4 mmol/L (3.5-5.1)
[2019-03-05 08:00] VITALS: BP 152/89
[2019-03-05] MEDS: HYDROCODONE/APAP 5/325MG 1 EACH TABLET GT SCH (08:28)
[2019-03-05] MEDS: VIT B CMPLX 3/FA/VIT C/BIOTIN 1 TAB TABLET GT SCH (08:28)
[2019-03-05] MEDS: ASCORBIC ACID 500 MG TABLET GT SCH (08:28)
[2019-03-05] MEDS: SUCRALFATE 1 G/10 ML UDC GT SCH (08:28)
[2019-03-05] MEDS: LACTOBACILLUS RHAMNOSUS GG 1 EACH CAP.SPRINK GT SCH ×2 (08:28→16:04)
[2019-03-05] MEDS: PROSOURCE / PROSTAT (PYXIS) 30 ML UDC GT SCH ×2 (08:28→16:04)
[2019-03-05] MEDS: PANTOPRAZOLE 40 MG/PACK PACK GT SCH (08:28)
[2019-03-05] MEDS: DAKINS QUARTER STRENGTH (0.125%) 480 ML BOTTLE TOP SCH (08:29)
[2019-03-05] MEDS: CLOTRIMAZOLE 1% 15 GM TUBE TP SCH ×2 (08:29→16:04)
[2019-03-05] MEDS: Z GUARD REMEDY 2 OZ OINT TP PRN (08:30)
[2019-03-05] MEDS: HYDROGEL DRESSING 90 GM TUBE TP SCH ×2 (08:30→20:45)
[2019-03-05 12:00] VITALS: BP 143/81
--- NOTE | 2019-03-05 12:00 | NUR ---
rn note pt vomitted x1, pt suctioned, zofran administered. pt has about 60 ml residual in stomach after emesis, tube feeding held. will monitor.
[2019-03-05] MEDS: ONDANSETRON HCL/PF 4 MG/2 ML VIAL IVP PRN (12:11)
[2019-03-05 16:00] VITALS: BP 130/71
[2019-03-05] MEDS: NEPRO 1,000 ML BOTTLE GT PRN (17:49)
[2019-03-05 20:00] VITALS: BP 119/45
--- NOTE | 2019-03-05 20:00 | NUR ---
RN INITIAL NOTES RECEIVED, PATIENT OBTUNDED IN VENT OPENS EYES. ON TELE MONITOR, ST, PER RM 100'S-110. MULTIPLE WOUNDS. ON GTF NEPRO AT 40 ML/HR. HAS RIGHT IJ ERNESTO CATH AND RIGHT UA MIDLINE. HD TODAY. BED LOCKED AND IN LOWEST POSITION. WILL CONT TO MONITOR THROUGHOUT THE SHIFT
[2019-03-05] MEDS: COLISTIMETHATE SODIUM 100 MG in IV NS 0.9% 50 ML IV SCH (20:31)
[2019-03-05] MEDS: FENOFIBRATE NANOCRYS (145 MG) 145 MG TABLET GT SCH (21:20)
[2019-03-06] VITALS (7 sets, daily range): BP systolic 84–173; BP diastolic 31–79
[2019-03-06] MEDS: METRONIDAZOLE 500 MG TABLET PO SCH ×3 (04:57→21:37)
[2019-03-06] MEDS: BLOOD SUGAR DIAGNOSTIC 1 EACH STRIP IN SCH ×3 (04:57→18:12)
[2019-03-06 06:44] LABS: BASOPHILS # (AUTO) 0.1 /CMM (0.0-0.2); BASOPHILS % (AUTO) 0.3 % (0.0-2.0); EOSINOPHILS % (AUTO) 18.3 % (0.0-6.0); HEMATOCRIT 35 % (39-51); HEMOGLOBIN 11.1 g/dL (13.5-17.5); LYMPHOCYTES # (AUTO) 2.8 /CMM (0.8-4.8); LYMPHOCYTES % (AUTO) 12.5 % (20.0-44.0); MEAN CORPUSCULAR HGB CONC 32 g/dl (31.0-36.0); MEAN CORPUSCULAR VOLUME 92 fL (80-96); MONOCYTES # (AUTO) 0.9 /CMM (0.1-1.30); MONOCYTES % (AUTO) 3.9 % (2.0-12.0); NEUTROPHILS # (AUTO) 14.8 /CMM (1.8-8.9); PLATELET COUNT (AUTO) 503 /CMM (150-450); RED BLOOD CELL COUNT(AUTO) 3.82 MIL/uL (4.5-6.0); WHITE BLOOD COUNT (AUTO) 22.7 K/uL (4.3-11.0)
--- NOTE | 2019-03-06 06:44 | NUR ---
RN CLOSING NOTES ENDORSED, PATIENT OBTUNDED IN VENT OPENS EYES. ON TELE MONITOR, ST, PER RM 100'S-110. MULTIPLE WOUNDS, TX DONE, DRESSING CHANGED. ON GTF NEPRO AT 40 ML/HR. HAS RIGHT IJ ERNESTO CATH AND RIGHT UA MIDLINE. HD TODAY. SACRAL DEBRIDEMENT TODAY WELL. BED LOCKED AND IN LOWEST POSITION. WILL ENDORSE TO AM RN TO MONITOR . Addendum: 03/06/19 at 0648 by MARINE RASMUSSEN RN SACRAL DEBRIDEMENT CANCELED BECAUSE PT HAS HD AND IS AT RISK OF BLEEDING.
[2019-03-06 07:16] LABS: CALCIUM, SERUM 8.7 mg/dL (8.5-10.1); CREATININE 4.5 mg/dL (0.6-1.3); MAGNESIUM 2.3 mg/dL (1.8-2.4); PHOSPHORUS 6.7 mg/dL (2.5-4.9); POTASSIUM 3.7 mmol/L (3.5-5.1)
--- NOTE | 2019-03-06 07:25 | NUR ---
TELE/[facility] RN INITIAL NOTES Report received. Patient received in bed, sleeping comfortably, easily aroused. On restraints for risk of injury with one-on-one sitter. On continuous oxygen via vent maching with no SOB/labored breathing noted. HOB elevated with contiuous gtube feeding. No s&s of distress. On contact isolation for MRSA. Will continue to monitor and assess patient. Tele monitor: HR:97 Addendum: 03/06/19 at 1153 by LITZY VIDES RN INCORRECT PATIENT
--- NOTE | 2019-03-06 07:25 | NUR ---
TELE/[facility] RN INITIAL NOTES Report received. Patient received in bed, sleeping comfortably, easily aroused. On continuous oxygen via vent maching with no SOB/labored breathing noted. HOB elevated with contiuous gtube feeding. No s&s of distress. On contact isolation for MRSA. Will continue to monitor and assess patient. Tele monitor: HR:97
[2019-03-06] MEDS: VIT B CMPLX 3/FA/VIT C/BIOTIN 1 TAB TABLET GT SCH (08:12)
[2019-03-06] MEDS: PANTOPRAZOLE 40 MG/PACK PACK GT SCH (08:12)
[2019-03-06] MEDS: ASCORBIC ACID 500 MG TABLET GT SCH (08:12)
[2019-03-06] MEDS: SUCRALFATE 1 G/10 ML UDC GT SCH (08:12)
[2019-03-06] MEDS: LACTOBACILLUS RHAMNOSUS GG 1 EACH CAP.SPRINK GT SCH ×2 (08:12→17:25)
[2019-03-06] MEDS: HYDROCODONE/APAP 5/325MG 1 EACH TABLET GT SCH (08:12)
[2019-03-06] MEDS: PROSOURCE / PROSTAT (PYXIS) 30 ML UDC GT SCH ×2 (08:13→17:26)
[2019-03-06] MEDS: HYDROGEL DRESSING 90 GM TUBE TP SCH ×2 (08:14→21:38)
[2019-03-06] MEDS: CLOTRIMAZOLE 1% 15 GM TUBE TP SCH ×2 (08:14→17:26)
[2019-03-06] MEDS: DAKINS QUARTER STRENGTH (0.125%) 480 ML BOTTLE TOP SCH (08:14)
[2019-03-06] MEDS: INSULIN REGULAR, HUMAN 100 UNIT/ML 3 ML VIAL SQ PRN ×2 (12:06→18:13)
--- NOTE | 2019-03-06 18:19 | NUR ---
RT END OF THE SHIFT REPORT; PT. 58 Y OLD MALE REC. 0700 AM TRACH'D MURIEL # 8 PT. ON MECHANICAL VENTILATOR WITH NOTED SETTINGS, ALARMS ARE SET AND FUNCTIONAL, EQUAL CHEST RISE NOTED, NO DISTRESS, B/S BILATERALLY RHONCHI AND SUX'D FOR SMALL AMT OF WHITE SECRETIONS. PT. REMAIN STABLE, NO CHANGES, HME CHANGED, COMMUNITY HEALTH EDUCATOR DONE. VENT PLUGGED IN THE RED OUT LET, AMBU BAG, EXTRA TRACH AT THE BEDSIDE. REPORT WILL BE PASS TO PM SHIFT. Addendum: 03/06/19 at 1822 by SHARMILA PERALES RT Amended: Links added.
--- NOTE | 2019-03-06 19:15 | NUR ---
MS/[facility] RN CLOSING NOTES Patient remained in bed, intermittently sleeping, easily aroused/comfortable. Patient is obtunded. 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 All due meds given and tolerated. No SOB/labored breathing noted. Not in any type of distress. No facial grimacing/moaning noted. On Gtube feeding - tolerating well. All needs provided and met. Kept patient clean and dry. Treatment rendered. HOB elevated at all times to prevent aspiration. Safety measures in place. Bed in lowest position with call light within reach and bed alarm on. Will continue to monitor and assess patient and endorse to oncoming shift nurse. Tele Morning: ST HR: 100-120
--- NOTE | 2019-03-06 19:17 | NUR ---
TELE/[facility] RN NOTES RT at bedside
--- NOTE | 2019-03-06 19:59 | NUR ---
RN NOTES RECEIVED PATIENT, EYES OPEN, NO SIGNS OF ACUTE CARDIAC / RESPIRATORY DISTRESS NOTED, TRACH AT MIDLINE SECURED AND INTACT,IV ACCESS INTACT AND PATENT, VENT SETTINGS TOLERATING WELL AT 40% FIO2 SATING 100%, GT FEEDING INTACT AND PATENT FEEDING TOLERATING WELL, SAFETY MEASURES IN PLACE, ASPIRATION PRECAUTION EMPHASIZE, SUCTIONED SECRETIONS, REPOSITIONED FOR COMFORT, ALL NEEDS ATTENDED, WILL CONTINUE TO MONITOR ACCORDINGLY.
--- NOTE | 2019-03-06 20:30 | NUR ---
RN NOTES FAMILY AT BEDSIDE AT THIS TIME.
[2019-03-06] MEDS: COLISTIMETHATE SODIUM 100 MG in IV NS 0.9% 50 ML IV SCH (20:36)
[2019-03-06] MEDS: FENOFIBRATE NANOCRYS (145 MG) 145 MG TABLET GT SCH (22:00)
[2019-03-06] MEDS: NEPRO 1,000 ML BOTTLE GT PRN (22:26)
[2019-03-07] VITALS: BP 131/64
[2019-03-07] MEDS: BLOOD SUGAR DIAGNOSTIC 1 EACH STRIP IN SCH ×3 (00:30→12:12)
[2019-03-07] MEDS: INSULIN REGULAR, HUMAN 100 UNIT/ML 3 ML VIAL SQ PRN ×2 (00:34→12:52)
[2019-03-07 00:58] VITALS: BP 131/64
[2019-03-07 04:00] VITALS: BP 129/69
--- NOTE | 2019-03-07 04:25 | NUR ---
RT NOTE TRACH TUBE IN PLACE, PATENT, AND SECURED. ALARMS ON AND AUDIBLE. VENT PLUGGED IN TO RED OUTLET. AMBU BAG AND BACK UP TRACH BY THE BEDSIDE. IN STABLE CONDITION AT THIS TIME. NO CHANGES. Addendum: 03/07/19 at 0426 by ONEL VEGA RT Amended: Links added.
[2019-03-07] MEDS: METRONIDAZOLE 500 MG TABLET PO SCH ×2 (05:18→12:11)
[2019-03-07 06:34] LABS: BASOPHILS % (AUTO) 0.2 % (0.0-2.0); EOSINOPHILS % (AUTO) 17.5 % (0.0-6.0); HEMATOCRIT 34 % (39-51); HEMOGLOBIN 10.8 g/dL (13.5-17.5); LYMPHOCYTES # (AUTO) 2.4 /CMM (0.8-4.8); LYMPHOCYTES % (AUTO) 12.6 % (20.0-44.0); MEAN CORPUSCULAR HGB CONC 32 g/dl (31.0-36.0); MEAN CORPUSCULAR VOLUME 93 fL (80-96); MONOCYTES # (AUTO) 0.9 /CMM (0.1-1.30); MONOCYTES % (AUTO) 4.8 % (2.0-12.0); NEUTROPHILS # (AUTO) 12.6 /CMM (1.8-8.9); NEUTROPHILS % (AUTO) 64.9 % (43.0-81.0); PLATELET COUNT (AUTO) 522 /CMM (150-450); RED BLOOD CELL COUNT(AUTO) 3.69 MIL/uL (4.5-6.0); WHITE BLOOD COUNT (AUTO) 19.4 K/uL (4.3-11.0)
[2019-03-07 07:17] LABS: CALCIUM, SERUM 8.2 mg/dL (8.5-10.1); CREATININE 3.8 mg/dL (0.6-1.3); MAGNESIUM 2.2 mg/dL (1.8-2.4); PHOSPHORUS 4.3 mg/dL (2.5-4.9); POTASSIUM 3.3 mmol/L (3.5-5.1)
--- NOTE | 2019-03-07 07:30 | NUR ---
RN NOTES ALL NEEDS ATTENDED AND MET, PATIENT RESTING COMFORTABLY, SAFETY MEASURES IN PLACE, CALL LIGHT WITHIN EASY REACH, ENDORSED TO AM NURSE FOR CONTINUITY OF CARE.
--- NOTE | 2019-03-07 07:35 | NUR ---
PEDIATRIC ACUTE CARE UNIT NURSE OPENING NOTES RECEIVED REPORT FROM APPRENTICE ELECTRICIAN RN. PT HAS EYES OPEN IS NOT VERBAL. FEEDING IS GOING AT 40ML/HR. CONTINUOS PULSE OX READING AT 100% PT IS TOLERATING VENT SETTINGS BREATHING IS EVEN AND UNLABORED WITH CHEST RISE EQUAL BILATERALLY. HEELS AND FEET ARE OFFLOADED. BED IS LOCKED AND IN LOWEST POSITION. PT IS ON DROPLET ISOLATION. WILL CONTINUE TO MONITOR.
[2019-03-07 08:00] VITALS: BP 104/86
[2019-03-07] MEDS: LACTOBACILLUS RHAMNOSUS GG 1 EACH CAP.SPRINK GT SCH (09:36)
[2019-03-07] MEDS: VIT B CMPLX 3/FA/VIT C/BIOTIN 1 TAB TABLET GT SCH (09:36)
[2019-03-07] MEDS: PANTOPRAZOLE 40 MG/PACK PACK GT SCH (09:36)
[2019-03-07] MEDS: HYDROCODONE/APAP 5/325MG 1 EACH TABLET GT SCH (09:36)
[2019-03-07] MEDS: ASCORBIC ACID 500 MG TABLET GT SCH (09:36)
[2019-03-07] MEDS: PROSOURCE / PROSTAT (PYXIS) 30 ML UDC GT SCH (09:36)
[2019-03-07] MEDS: SUCRALFATE 1 G/10 ML UDC GT SCH (09:36)
[2019-03-07] MEDS: HYDROGEL DRESSING 90 GM TUBE TP SCH (09:37)
[2019-03-07] MEDS: DAKINS QUARTER STRENGTH (0.125%) 480 ML BOTTLE TOP SCH (09:37)
[2019-03-07] MEDS: CLOTRIMAZOLE 1% 15 GM TUBE TP SCH (09:37)
[2019-03-07] MEDS ORDERED: COLI150V12 IJ (10:57)
[2019-03-07 12:00] VITALS: BP 131/72
[2019-03-07] MEDS: ONDANSETRON HCL/PF 4 MG/2 ML VIAL IVP PRN (12:11)
[2019-03-07 16:00] VITALS: BP 133/83
--- NOTE | 2019-03-07 16:34 | NUR ---
RN D/C TELE NOTES PT TRANSFERRED TO [facility]. LAST SET OF VITALS TAKEN. BELONGINGS TAKEN TO PT. RT PRESENT ASSISTED WITH TRANSFER. TRANSFER WITHOUT INCIDENT. EXITCARE PROVIDED. KENZIE CASTAÑEDA RECEIVED REPORT AND ACCEPTED PT. WOUND DEBRIDEMENT DONE PRIOR TO TRANSFER. NOTIFIED GARRY ESPINO.
== END 2019-03-07 16:20 | DRG 710 ==
LOC: ICU 21:14 → TELE-TD 03-03 14:38 → TELE1 03-05 11:44
PROVIDERS: ADMIT Registered Nurse; ATTEND Nurse Practitioner Acute Care
PROC: 5A1955Z Respiratory Ventilation, Greater than 96 Consecutive Hours (ICD-10-PCS; principal; 2019-03-01)
PROC: B546ZZA Ultrasonography of Right Subclavian Vein, Guidance (ICD-10-PCS; principal; 2019-03-01)
PROC: 05H533Z Insertion of Infusion Device into Right Subclavian Vein, Percutaneous Approach (ICD-10-PCS; principal; 2019-03-01)
PROC: 5A1D70Z Performance of Urinary Filtration, Intermittent, Less than 6 Hours Per Day (ICD-10-PCS; 2019-03-02)
PROC: 5A1D70Z Performance of Urinary Filtration, Intermittent, Less than 6 Hours Per Day (ICD-10-PCS; 2019-03-07)
PROC: 0QB20ZZ Excision of Right Pelvic Bone, Open Approach (ICD-10-PCS; 2019-03-07)
PROC: 0QB30ZZ Excision of Left Pelvic Bone, Open Approach (ICD-10-PCS; 2019-03-07)
PROC: 0QB10ZZ Excision of Sacrum, Open Approach (ICD-10-PCS; 2019-03-07)
DX: A41.9 Sepsis, unspecified organism (principal); I21.A1 Myocardial infarction type 2; J69.0 Pneumonitis due to inhalation of food and vomit; G93.1 Anoxic brain damage, not elsewhere classified; Z99.11 Dependence on respirator [ventilator] status; E11.10 Type 2 diabetes mellitus with ketoacidosis without coma; B49 Unspecified mycosis; L89.324 Pressure ulcer of left buttock, stage 4; L89.154 Pressure ulcer of sacral region, stage 4; L89.314 Pressure ulcer of right buttock, stage 4; I70.263 Atherosclerosis of native arteries of extremities with gangrene, bilateral legs; E11.52 Type 2 diabetes mellitus with diabetic peripheral angiopathy with gangrene; E11.22 Type 2 diabetes mellitus with diabetic chronic kidney disease; R53.2 Functional quadriplegia; I12.0 Hypertensive chronic kidney disease with stage 5 chronic kidney disease or end stage renal disease; N18.6 End stage renal disease; N39.0 Urinary tract infection, site not specified; Z93.1 Gastrostomy status; L97.828 Non-pressure chronic ulcer of other part of left lower leg with other specified severity; L97.818 Non-pressure chronic ulcer of other part of right lower leg with other specified severity; I25.10 Atherosclerotic heart disease of native coronary artery without angina pectoris; F09 Unspecified mental disorder due to known physiological condition; R13.10 Dysphagia, unspecified; Z93.0 Tracheostomy status; D63.8 Anemia in other chronic diseases classified elsewhere; J90 Pleural effusion, not elsewhere classified; J96.11 Chronic respiratory failure with hypoxia; Z99.2 Dependence on renal dialysis; Z89.429 Acquired absence of other toe(s), unspecified side; Z86.73 Personal history of transient ischemic attack (TIA), and cerebral infarction without residual deficits; L30.4 Erythema intertrigo; K21.9 Gastro-esophageal reflux disease without esophagitis; E11.69 Type 2 diabetes mellitus with other specified complication; J98.11 Atelectasis; M86.9 Osteomyelitis, unspecified; Z79.4 Long term (current) use of insulin; Z79.899 Other long term (current) drug therapy; I70.234 Atherosclerosis of native arteries of right leg with ulceration of heel and midfoot; I70.244 Atherosclerosis of native arteries of left leg with ulceration of heel and midfoot; M62.40 Contracture of muscle, unspecified site; L98.9 Disorder of the skin and subcutaneous tissue, unspecified
CPT/HCPCS: 31720; 36415; 36600; 71045-TC; 80048-TC; 80053-TC; 80061-TC; 80202-TC; 82803-TC; 82962-TC; 83735-TC; 84100-TC; 84484-TC; 85025-TC; 86706; 87040-TC; 87070-TC; 87081-TC; 87186-TC; 87340; 90935-TC; 94003-TC; 94760-TC; 94762-TC; 94799-TC; A4216; A4217; A6248; A6253; A6402; A6403; A6407; A7526; G0378; J0770; J1815; J2185; J2405; J3370; J3490; J7030; J7050; J7060

== ENCOUNTER 2019-03-17 06:45 | Inpatient (IN) | payer OTHER ==
[~2019-03-17] VITALS: Ht 170.2 cm; Wt 54.4 kg
[2019-03-17] VITALS (56 sets, daily range): BP systolic 66–147; BP diastolic 29–117
[~2019-03-17 06:45] MED LIST changes: -CEFE1VIA3 IV; +COLI150V12 IJ; -MEROPENEM 500 MG in IV NS 0.9% 50 ML IV SCH
[2019-03-17] MEDS ORDERED: ANESTHESIA TRAY IN PYXIS 1 EA TRAY MC ONE (07:15)
[2019-03-17] MEDS ORDERED: HYDROMORPHONE INJ 2 MG/ML DISP.SYRIN ONE (07:48)
[2019-03-17] MEDS ORDERED: BACITRACIN 50000 UNITS/VIAL ONE (08:17)
[2019-03-17] MEDS: ERGOCALCIFEROL (VITAMIN D 2) 50,000 UNIT CAPSULE GT SCH (09:00)
[2019-03-17] MEDS ORDERED: VITAMINS A AND D 56.7 GM TUBE TP PRN (10:30)
[2019-03-17] MEDS: PROSOURCE / PROSTAT (PYXIS) 30 ML UDC GT SCH (10:30)
[2019-03-17] MEDS ORDERED: BISACODYL SUPP (10 MG) 10 MG/SUPP.RECT SUPP.RECT RC PRN (10:30)
[2019-03-17] MEDS ORDERED: ONDANSETRON HCL/PF 4 MG/2 ML VIAL IV PRN (10:30)
[2019-03-17] MEDS ORDERED: MAG HYDROX/AL HYDROX/SIMETH 30 ML UDC PO PRN (10:30)
[2019-03-17] MEDS ORDERED: DEXTROSE 50%-WATER 50 ML DISP.SYRIN IV PRN (10:30)
[2019-03-17] MEDS ORDERED: NA PHOS,M-B/NA PHOS,DI-BA 1 EA ENEMA RC PRN (10:30)
[2019-03-17] MEDS ORDERED: NEPRO 1,000 ML BOTTLE GT PRN (10:30)
[2019-03-17] MEDS ORDERED: INSULIN ASPART/LISPRO 100 UNIT/ML CARTRIDGE SQ PRN (10:30)
[2019-03-17] MEDS: SUCRALFATE 1 G/10 ML UDC GT SCH ×3 (12:00→21:16)
[2019-03-17] MEDS ORDERED: IV NS 0.9% 500 ML IV ONE (12:30)
[2019-03-17] MEDS: BLOOD SUGAR DIAGNOSTIC 1 EACH STRIP IN SCH ×2 (12:32→17:07)
[2019-03-17] MEDS: HYDROGEL DRESSING 90 GM TUBE TP SCH (14:30)
[2019-03-17] MEDS: CLOTRIMAZOLE/BETAMETASONE DIPROPIONATE 15 GM TUBE TP SCH ×2 (15:00→16:51)
[2019-03-17] MEDS ORDERED: CLOTRIMAZOLE 1% 15 GM TUBE TP SCH (15:00)
[2019-03-17] MEDS: LACTOBACILLUS RHAMNOSUS GG 1 EACH CAP.SPRINK GT SCH (16:06)
[2019-03-17] MEDS: Z GUARD REMEDY 2 OZ OINT TP SCH ×3 (16:06→21:17)
[2019-03-17] MEDS: POLYVINYL ALCOHOL 15 ML BOTTLE EACHEYE SCH ×2 (16:06→17:03)
[2019-03-17] MEDS: METRONIDAZOLE 500 MG TABLET PO SCH ×2 (16:51→21:16)
[2019-03-17] MEDS ORDERED: ALBUMIN 25% 25 GM in PREMIX 1 EA IV ONE (17:00)
[2019-03-17] MEDS ORDERED: DAKINS QUARTER STRENGTH (0.125%) 480 ML BOTTLE TOP SCH (17:00)
[2019-03-17] MEDS: COLISTIMETHATE SODIUM 100 MG in IV NS 0.9% 50 ML IV SCH (19:45)
[2019-03-17] MEDS: ACETAMINOPHEN 325 MG TABLET PO PRN (20:21)
[2019-03-17] MEDS: METOPROLOL TARTRATE 25 MG TABLET PO SCH (21:00)
[2019-03-17] MEDS: SULFAMETH/TRIMETH 800/160 MG 1 UDTAB TABLET PO SCH (21:16)
[2019-03-17] MEDS: INSULIN GLARGINE, 100 UNIT/ML CARTRIDGE SQ SCH (21:29)
[2019-03-17] MEDS ORDERED: FENOFIBRATE NANOCRYS (145 MG) 145 MG TABLET GT SCH (22:00)
[2019-03-18] VITALS (33 sets, daily range): BP systolic 83–157; BP diastolic 33–103
[2019-03-18] MEDS: BLOOD SUGAR DIAGNOSTIC 1 EACH STRIP IN SCH ×5 (00:27→22:32)
[2019-03-18] MEDS: POLYVINYL ALCOHOL 15 ML BOTTLE EACHEYE SCH ×5 (00:28→23:48)
[2019-03-18] MEDS: ACETAMINOPHEN 325 MG TABLET PO PRN (04:09)
[2019-03-18 04:26] LABS: BASOPHILS # (AUTO) 0.1 /CMM (0.0-0.2); BASOPHILS % (AUTO) 0.4 % (0.0-2.0); EOSINOPHILS % (AUTO) 16.6 % (0.0-6.0); HEMATOCRIT 28 % (39-51); HEMOGLOBIN 8.8 g/dL (13.5-17.5); LYMPHOCYTES # (AUTO) 2.3 /CMM (0.8-4.8); MEAN CORPUSCULAR HGB CONC 31 g/dl (31.0-36.0); MEAN CORPUSCULAR VOLUME 93 fL (80-96); MONOCYTES # (AUTO) 1.4 /CMM (0.1-1.30); MONOCYTES % (AUTO) 5.4 % (2.0-12.0); NEUTROPHILS # (AUTO) 17.5 /CMM (1.8-8.9); NEUTROPHILS % (AUTO) 68.6 % (43.0-81.0); PLATELET COUNT (AUTO) 510 /CMM (150-450); RED BLOOD CELL COUNT(AUTO) 3.06 MIL/uL (4.5-6.0); WHITE BLOOD COUNT (AUTO) 25.5 K/uL (4.3-11.0)
[2019-03-18 04:41] LABS: CALCIUM, SERUM 8.7 mg/dL (8.5-10.1); CREATININE 2.1 mg/dL (0.6-1.3); MAGNESIUM 1.9 mg/dL (1.8-2.4); PHOSPHORUS 2.3 mg/dL (2.5-4.9); POTASSIUM 4.1 mmol/L (3.5-5.1)
[2019-03-18] MEDS: METRONIDAZOLE 500 MG TABLET PO SCH ×3 (05:27→20:33)
[2019-03-18] MEDS: SUCRALFATE 1 G/10 ML UDC GT SCH ×4 (07:35→20:34)
[2019-03-18] MEDS: HYDROCORTISONE SOD SUCCINATE 100 MG/2 ML VIAL IV SCH ×3 (08:00→17:37)
[2019-03-18] MEDS ORDERED: VIT B CMPLX 3/FA/VIT C/BIOTIN 1 TAB TABLET PO SCH (09:00)
[2019-03-18] MEDS ORDERED: COLISTIMETHATE SODIUM 150 MG VIAL IJ SCH (09:00)
[2019-03-18] MEDS: LACTOBACILLUS RHAMNOSUS GG 1 EACH CAP.SPRINK GT SCH ×2 (09:26→17:37)
[2019-03-18] MEDS: VIT B CMPLX 3/FA/VIT C/BIOTIN 1 TAB TABLET GT SCH (09:26)
[2019-03-18] MEDS: HYDROCODONE/APAP 5/325MG 1 EACH TABLET GT SCH (09:27)
[2019-03-18] MEDS: FLUDROCORTISONE 0.1 MG TABLET PO SCH (09:27)
[2019-03-18] MEDS: SULFAMETH/TRIMETH 800/160 MG 1 UDTAB TABLET PO SCH (09:28)
[2019-03-18] MEDS: PANTOPRAZOLE 40 MG/PACK PACK GT SCH (09:28)
[2019-03-18] MEDS: ASCORBIC ACID 500 MG TABLET GT SCH (09:28)
[2019-03-18] MEDS: METOPROLOL TARTRATE 25 MG TABLET PO SCH ×2 (09:29→20:33)
[2019-03-18] MEDS: PROSOURCE / PROSTAT (PYXIS) 30 ML UDC GT SCH (11:07)
[2019-03-18] MEDS: ZINC SULFATE 220 MG CAPSULE PO SCH (11:08)
[2019-03-18] MEDS: INSULIN GLARGINE, 100 UNIT/ML CARTRIDGE SQ SCH ×2 (11:11→22:34)
[2019-03-18] MEDS: Z GUARD REMEDY 2 OZ OINT TP SCH ×4 (11:13→21:00)
[2019-03-18] MEDS: CLOTRIMAZOLE/BETAMETASONE DIPROPIONATE 15 GM TUBE TP SCH ×2 (11:13→16:33)
[2019-03-18] MEDS: HYDROGEL DRESSING 90 GM TUBE TP SCH (11:13)
[2019-03-18] MEDS ORDERED: NEUTRA PHOS 1 POWD.PACKET GT ONE (13:00)
[2019-03-18] MEDS ORDERED: DEXTROSE 50%-WATER 50 ML DISP.SYRIN IV PRN (14:00)
[2019-03-18] MEDS: INSULIN ASPART/LISPRO 100 UNIT/ML CARTRIDGE SQ PRN ×3 (14:39→22:32)
[2019-03-18] MEDS ORDERED: FEE PK DOSING 1 MIN EA MC ONE (19:15)
[2019-03-18] MEDS ORDERED: VANCOMYCIN 1 GM in IV D5W 250 ML IV PRN (20:00)
[2019-03-18] MEDS: COLISTIMETHATE SODIUM 100 MG in IV NS 0.9% 50 ML IV SCH (20:35)
[2019-03-18] MEDS: Z GUARD REMEDY 2 OZ OINT TP PRN ×2 (22:35→22:36)
[2019-03-19] VITALS (8 sets, daily range): BP systolic 126–186; BP diastolic 54–82
[2019-03-19] MEDS: METRONIDAZOLE 500 MG TABLET PO SCH ×3 (05:10→21:00)
[2019-03-19] MEDS: POLYVINYL ALCOHOL 15 ML BOTTLE EACHEYE SCH ×4 (05:16→23:01)
[2019-03-19] MEDS: INSULIN ASPART/LISPRO 100 UNIT/ML CARTRIDGE SQ PRN ×4 (05:46→21:52)
[2019-03-19] MEDS: BLOOD SUGAR DIAGNOSTIC 1 EACH STRIP IN SCH ×4 (05:47→21:52)
[2019-03-19 07:15] LABS: BASOPHILS % (AUTO) 0.2 % (0.0-2.0); EOSINOPHILS % (AUTO) 0.1 % (0.0-6.0); HEMATOCRIT 25 % (39-51); HEMOGLOBIN 7.7 g/dL (13.5-17.5); LYMPHOCYTES # (AUTO) 1.3 /CMM (0.8-4.8); MEAN CORPUSCULAR HGB CONC 31 g/dl (31.0-36.0); MEAN CORPUSCULAR VOLUME 92 fL (80-96); MONOCYTES # (AUTO) 1.1 /CMM (0.1-1.30); MONOCYTES % (AUTO) 4.8 % (2.0-12.0); NEUTROPHILS # (AUTO) 19.8 /CMM (1.8-8.9); NEUTROPHILS % (AUTO) 88.9 % (43.0-81.0); PLATELET COUNT (AUTO) 533 /CMM (150-450); RED BLOOD CELL COUNT(AUTO) 2.68 MIL/uL (4.5-6.0); WHITE BLOOD COUNT (AUTO) 22.3 K/uL (4.3-11.0)
[2019-03-19 07:24] LABS: ALBUMIN 1.9 g/dL (3.4-5.0); BILIRUBIN,TOTAL 0.5 mg/dL (0.2-1.0); CALCIUM, SERUM 8.7 mg/dL (8.5-10.1); CREATININE 3.3 mg/dL (0.6-1.3); PHOSPHORUS 2.4 mg/dL (2.5-4.9); POTASSIUM 4.3 mmol/L (3.5-5.1)
[2019-03-19] MEDS: SUCRALFATE 1 G/10 ML UDC GT SCH ×4 (09:08→20:56)
[2019-03-19] MEDS: PROSOURCE / PROSTAT (PYXIS) 30 ML UDC GT SCH ×3 (09:13→18:06)
[2019-03-19] MEDS: LACTOBACILLUS RHAMNOSUS GG 1 EACH CAP.SPRINK GT SCH ×2 (09:13→18:06)
[2019-03-19] MEDS: PANTOPRAZOLE 40 MG/PACK PACK GT SCH (09:13)
[2019-03-19] MEDS: CLOTRIMAZOLE/BETAMETASONE DIPROPIONATE 15 GM TUBE TP SCH ×2 (09:14→18:07)
[2019-03-19] MEDS: Z GUARD REMEDY 2 OZ OINT TP SCH ×4 (09:14→21:02)
[2019-03-19] MEDS: HYDROGEL DRESSING 90 GM TUBE TP SCH (09:15)
[2019-03-19] MEDS: HYDROGEL DRESSING 90 GM TUBE TP PRN (09:15)
[2019-03-19] MEDS: FLUDROCORTISONE 0.1 MG TABLET PO SCH (11:41)
[2019-03-19] MEDS: VIT B CMPLX 3/FA/VIT C/BIOTIN 1 TAB TABLET GT SCH (11:41)
[2019-03-19] MEDS: ZINC SULFATE 220 MG CAPSULE PO SCH (11:42)
[2019-03-19] MEDS: ASCORBIC ACID 500 MG TABLET GT SCH (11:42)
[2019-03-19] MEDS: ERGOCALCIFEROL (VITAMIN D 2) 50,000 UNIT CAPSULE GT SCH (11:42)
[2019-03-19] MEDS: HYDROCODONE/APAP 5/325MG 1 EACH TABLET GT SCH (11:42)
[2019-03-19] MEDS: HYDROCORTISONE SOD SUCCINATE 100 MG/2 ML VIAL IV SCH ×3 (11:43→18:06)
[2019-03-19] MEDS: METOPROLOL TARTRATE 25 MG TABLET PO SCH ×2 (11:50→20:56)
[2019-03-19] MEDS: INSULIN GLARGINE, 100 UNIT/ML CARTRIDGE SQ SCH ×2 (11:55→21:51)
[2019-03-19] MEDS ORDERED: VANCOMYCIN 1 GM in IV D5W 250 ML IV ONE (14:00)
[2019-03-19] MEDS ORDERED: VANCOMYCIN 500 MG in IV D5W 100 ML IV PRN (19:30)
[2019-03-19] MEDS: COLISTIMETHATE SODIUM 100 MG in IV NS 0.9% 50 ML IV SCH (20:56)
[2019-03-19] MEDS: Z GUARD REMEDY 2 OZ OINT TP PRN (20:58)
[2019-03-20] VITALS: BP 165/76
[2019-03-20 04:00] VITALS: BP_SYST 155; BP_SYST 176; BP_DIAS 72; BP_DIAS 81
[2019-03-20] MEDS: POLYVINYL ALCOHOL 15 ML BOTTLE EACHEYE SCH ×3 (05:40→17:05)
[2019-03-20] MEDS: METRONIDAZOLE 500 MG TABLET PO SCH ×3 (05:41→21:47)
[2019-03-20] MEDS: INSULIN ASPART/LISPRO 100 UNIT/ML CARTRIDGE SQ PRN ×4 (06:05→22:08)
[2019-03-20 06:31] LABS: EOSINOPHILS % (AUTO) 0.1 % (0.0-6.0); HEMATOCRIT 26 % (39-51); HEMOGLOBIN 8.1 g/dL (13.5-17.5); LYMPHOCYTES # (AUTO) 1.3 /CMM (0.8-4.8); LYMPHOCYTES % (AUTO) 7.9 % (20.0-44.0); MEAN CORPUSCULAR HGB CONC 31 g/dl (31.0-36.0); MEAN CORPUSCULAR VOLUME 92 fL (80-96); NEUTROPHILS # (AUTO) 14.4 /CMM (1.8-8.9); PLATELET COUNT (AUTO) 545 /CMM (150-450); RED BLOOD CELL COUNT(AUTO) 2.88 MIL/uL (4.5-6.0); WHITE BLOOD COUNT (AUTO) 16.7 K/uL (4.3-11.0)
[2019-03-20 07:00] LABS: CREATININE 2.9 mg/dL (0.6-1.3); MAGNESIUM 2.2 mg/dL (1.8-2.4); PHOSPHORUS 2.7 mg/dL (2.5-4.9); POTASSIUM 3.6 mmol/L (3.5-5.1)
[2019-03-20 08:00] VITALS: BP 162/78
[2019-03-20] MEDS: HYDROCORTISONE SOD SUCCINATE 100 MG/2 ML VIAL IV SCH ×3 (08:53→16:19)
[2019-03-20] MEDS: HYDROCODONE/APAP 5/325MG 1 EACH TABLET GT SCH (08:53)
[2019-03-20] MEDS: ASCORBIC ACID 500 MG TABLET GT SCH (08:53)
[2019-03-20] MEDS: FLUDROCORTISONE 0.1 MG TABLET PO SCH (08:53)
[2019-03-20] MEDS: PANTOPRAZOLE 40 MG/PACK PACK GT SCH (08:55)
[2019-03-20] MEDS: METOPROLOL TARTRATE 25 MG TABLET PO SCH ×2 (08:55→21:51)
[2019-03-20] MEDS: ZINC SULFATE 220 MG CAPSULE PO SCH (08:55)
[2019-03-20] MEDS: LACTOBACILLUS RHAMNOSUS GG 1 EACH CAP.SPRINK GT SCH ×2 (08:55→16:19)
[2019-03-20] MEDS: VIT B CMPLX 3/FA/VIT C/BIOTIN 1 TAB TABLET GT SCH (08:55)
[2019-03-20] MEDS: Z GUARD REMEDY 2 OZ OINT TP SCH ×4 (09:00→21:51)
[2019-03-20] MEDS: NEPRO 1,000 ML BOTTLE GT PRN (09:03)
[2019-03-20] MEDS: PROSOURCE / PROSTAT (PYXIS) 30 ML UDC GT SCH ×3 (09:04→16:21)
[2019-03-20] MEDS: HYDROGEL DRESSING 90 GM TUBE TP PRN (09:09)
[2019-03-20] MEDS: HYDROGEL DRESSING 90 GM TUBE TP SCH (09:10)
[2019-03-20] MEDS: CLOTRIMAZOLE/BETAMETASONE DIPROPIONATE 15 GM TUBE TP SCH ×2 (09:10→16:53)
[2019-03-20] MEDS: INSULIN GLARGINE, 100 UNIT/ML CARTRIDGE SQ SCH ×2 (09:18→22:03)
[2019-03-20] MEDS: BLOOD SUGAR DIAGNOSTIC 1 EACH STRIP IN SCH ×4 (09:21→22:06)
[2019-03-20] MEDS: SUCRALFATE 1 G/10 ML UDC GT SCH ×4 (09:24→21:47)
[2019-03-20 12:00] VITALS: BP 124/60
[2019-03-20 16:00] VITALS: BP 155/79
[2019-03-20] MEDS: COLISTIMETHATE SODIUM 100 MG in IV NS 0.9% 50 ML IV SCH (19:56)
[2019-03-20 20:00] VITALS: BP 162/89
[2019-03-21] VITALS (7 sets, daily range): BP systolic 150–183; BP diastolic 66–91
[2019-03-21] MEDS ORDERED: INSULIN ASPART/LISPRO 100 UNIT/ML CARTRIDGE SQ ONE
[2019-03-21] MEDS ORDERED: DEXTROSE 50%-WATER 50 ML DISP.SYRIN IV PRN
[2019-03-21] MEDS: POLYVINYL ALCOHOL 15 ML BOTTLE EACHEYE SCH ×4 (00:14→17:44)
[2019-03-21] MEDS: METRONIDAZOLE 500 MG TABLET PO SCH ×3 (05:12→20:07)
[2019-03-21] MEDS: BLOOD SUGAR DIAGNOSTIC 1 EACH STRIP IN SCH ×3 (05:18→17:44)
[2019-03-21] MEDS: INSULIN ASPART/LISPRO 100 UNIT/ML CARTRIDGE SQ PRN ×3 (05:20→17:45)
[2019-03-21 06:46] LABS: HEMATOCRIT 30 % (39-51); HEMOGLOBIN 9.2 g/dL (13.5-17.5); LYMPHOCYTES # (AUTO) 1.9 /CMM (0.8-4.8); LYMPHOCYTES % (AUTO) 13.9 % (20.0-44.0); MEAN CORPUSCULAR HGB CONC 31 g/dl (31.0-36.0); MEAN CORPUSCULAR VOLUME 91 fL (80-96); MONOCYTES # (AUTO) 0.8 /CMM (0.1-1.30); NEUTROPHILS # (AUTO) 10.7 /CMM (1.8-8.9); NEUTROPHILS % (AUTO) 80.1 % (43.0-81.0); PLATELET COUNT (AUTO) 555 /CMM (150-450); RED BLOOD CELL COUNT(AUTO) 3.28 MIL/uL (4.5-6.0); WHITE BLOOD COUNT (AUTO) 13.4 K/uL (4.3-11.0)
[2019-03-21 07:03] LABS: CREATININE 3.8 mg/dL (0.6-1.3); MAGNESIUM 2.5 mg/dL (1.8-2.4); POTASSIUM 3.8 mmol/L (3.5-5.1)
[2019-03-21] MEDS: FLUDROCORTISONE 0.1 MG TABLET PO SCH (08:51)
[2019-03-21] MEDS: SUCRALFATE 1 G/10 ML UDC GT SCH ×4 (08:51→21:03)
[2019-03-21] MEDS: ZINC SULFATE 220 MG CAPSULE PO SCH (08:51)
[2019-03-21] MEDS: LACTOBACILLUS RHAMNOSUS GG 1 EACH CAP.SPRINK GT SCH ×2 (08:52→17:43)
[2019-03-21] MEDS: ASCORBIC ACID 500 MG TABLET GT SCH (08:52)
[2019-03-21] MEDS: VIT B CMPLX 3/FA/VIT C/BIOTIN 1 TAB TABLET GT SCH (08:52)
[2019-03-21] MEDS: HYDROCODONE/APAP 5/325MG 1 EACH TABLET GT SCH (08:52)
[2019-03-21] MEDS: METOPROLOL TARTRATE 25 MG TABLET PO SCH ×2 (08:53→20:07)
[2019-03-21] MEDS: PANTOPRAZOLE 40 MG/PACK PACK GT SCH (08:53)
[2019-03-21] MEDS: PROSOURCE / PROSTAT (PYXIS) 30 ML UDC GT SCH ×3 (08:54→17:43)
[2019-03-21] MEDS: HYDROCORTISONE SOD SUCCINATE 100 MG/2 ML VIAL IV SCH ×3 (08:55→17:42)
[2019-03-21] MEDS: INSULIN GLARGINE, 100 UNIT/ML CARTRIDGE SQ SCH ×2 (08:56→20:20)
[2019-03-21] MEDS: HYDROGEL DRESSING 90 GM TUBE TP SCH (08:57)
[2019-03-21] MEDS: Z GUARD REMEDY 2 OZ OINT TP SCH ×4 (08:57→20:21)
[2019-03-21] MEDS: CLOTRIMAZOLE/BETAMETASONE DIPROPIONATE 15 GM TUBE TP SCH ×2 (08:57→17:43)
[2019-03-21] MEDS ORDERED: LIDOCAINE 1%-EPI 1:100,000 20 ML VIAL TP ONE (10:00)
[2019-03-21] MEDS: NEPRO 1,000 ML BOTTLE GT PRN (13:20)
[2019-03-21] MEDS: COLISTIMETHATE SODIUM 100 MG in IV NS 0.9% 50 ML IV SCH (20:04)
== END 2019-03-21 22:30 | DRG 710 ==
LOC: DS 06:45 → OBSVTOIN 09:25 → MED 09:25 → INTOOBSV 09:25 → TELE 09:32 → TELE-TD 12:42 → ICU 13:00 → TELE-TD 03-18 15:44 → TELE1 03-19 10:13
PROC: 0Y6C0Z2 Detachment at Right Upper Leg, Mid, Open Approach (ICD-10-PCS; principal; 2019-03-17)
PROC: 5A1945Z Respiratory Ventilation, 24-96 Consecutive Hours (ICD-10-PCS; principal; 2019-03-17)
PROC: 5A1D70Z Performance of Urinary Filtration, Intermittent, Less than 6 Hours Per Day (ICD-10-PCS; principal; 2019-03-17)
PROC: 05HB33Z Insertion of Infusion Device into Right Basilic Vein, Percutaneous Approach (ICD-10-PCS; principal; 2019-03-17)
PROC: 05HB33Z Insertion of Infusion Device into Right Basilic Vein, Percutaneous Approach (ICD-10-PCS; 2019-03-17)
PROC: 5A1D70Z Performance of Urinary Filtration, Intermittent, Less than 6 Hours Per Day (ICD-10-PCS; 2019-03-19)
PROC: 0QB10ZZ Excision of Sacrum, Open Approach (ICD-10-PCS; 2019-03-21)
PROC: 0JB90ZZ Excision of Buttock Subcutaneous Tissue and Fascia, Open Approach (ICD-10-PCS; 2019-03-21)
PROC: 0JB70ZZ Excision of Back Subcutaneous Tissue and Fascia, Open Approach (ICD-10-PCS; 2019-03-21)
PROC: 5A1D70Z Performance of Urinary Filtration, Intermittent, Less than 6 Hours Per Day (ICD-10-PCS; 2019-03-21)
DX: A41.9 Sepsis, unspecified organism (principal); Z99.11 Dependence on respirator [ventilator] status; G93.40 Encephalopathy, unspecified; G93.1 Anoxic brain damage, not elsewhere classified; J96.10 Chronic respiratory failure, unspecified whether with hypoxia or hypercapnia; I96 Gangrene, not elsewhere classified; L89.154 Pressure ulcer of sacral region, stage 4; L89.324 Pressure ulcer of left buttock, stage 4; L89.314 Pressure ulcer of right buttock, stage 4; E11.22 Type 2 diabetes mellitus with diabetic chronic kidney disease; Z93.0 Tracheostomy status; I12.0 Hypertensive chronic kidney disease with stage 5 chronic kidney disease or end stage renal disease; E11.52 Type 2 diabetes mellitus with diabetic peripheral angiopathy with gangrene; N18.6 End stage renal disease; Z99.2 Dependence on renal dialysis; Z93.1 Gastrostomy status; R13.10 Dysphagia, unspecified; D63.8 Anemia in other chronic diseases classified elsewhere; F09 Unspecified mental disorder due to known physiological condition; I25.10 Atherosclerotic heart disease of native coronary artery without angina pectoris; Z87.440 Personal history of urinary (tract) infections; Z86.73 Personal history of transient ischemic attack (TIA), and cerebral infarction without residual deficits; K21.9 Gastro-esophageal reflux disease without esophagitis; L30.4 Erythema intertrigo; L98.9 Disorder of the skin and subcutaneous tissue, unspecified; E83.39 Other disorders of phosphorus metabolism; M62.40 Contracture of muscle, unspecified site; N25.0 Renal osteodystrophy; I95.81 Postprocedural hypotension
CPT/HCPCS: 31720; 36415; 71045-TC; 80048-TC; 80053-TC; 80202-TC; 82533; 82962-TC; 83735-TC; 84100-TC; 84134-TC; 85025-TC; 87040-TC; 90935-TC; 94003-TC; 94760-TC; 94762-TC; 99082-TC; A4216; A6248; A6253; A6402; A6403; A7526; G0378; J0770; J1170; J1720; J1815; J3370; J3490; J7030; J7040; J7050; J7060; P9047

== ENCOUNTER 2019-05-13 13:24 | Inpatient (IN) | payer OTHER ==
[~2019-05-13 13:24] MED LIST changes: +METO10SY GT; -METO10SY IV; -ZINC220T GT; +ZINC220T4 GT
[2019-05-13] MEDS ORDERED: IPRA3AMP23 IH (15:21)
[2019-05-13] MEDS ORDERED: AMMO225L14 TP (15:21)
[2019-05-13] MEDS ORDERED: CALC0.253 GT (15:27)
[2019-05-13] MEDS ORDERED: INSU100I26 SQ (15:27)
[2019-05-13] MEDS ORDERED: NUT.237L67 GT (15:27)
[2019-05-13] MEDS ORDERED: NEUTRA PHOS PACKET GT (15:27)
[2019-05-13] MEDS ORDERED: ONDA4TAB11 PO (15:27)
[2019-05-13] MEDS ORDERED: OMEP20TA5 PO (15:27)
[2019-05-13] MEDS ORDERED: METO-295 GT (15:27)
[2019-05-13] MEDS ORDERED: SUCR1ORA GT (15:27)
[2019-05-13] MEDS: NOREPINEPHRINE 16 MG in IV D5W 500 ML IV PRN (16:12)
[2019-05-13] MEDS ORDERED: ACETAMINOPHEN 325 MG TABLET PO PRN (16:30)
[2019-05-13] MEDS ORDERED: ACETAMINOPHEN 650 MG/SUPP.RECT RC PRN (16:30)
[2019-05-13] MEDS ORDERED: ONDANSETRON HCL/PF 4 MG/2 ML VIAL IVP PRN (16:30)
[2019-05-13] MEDS ORDERED: MAG HYDROX/AL HYDROX/SIMETH 30 ML UDC PO PRN (16:30)
[2019-05-13] MEDS ORDERED: Z GUARD REMEDY 2 OZ OINT TP PRN (16:30)
[2019-05-13] MEDS ORDERED: MAGNESIUM HYDROXIDE 30 ML UDC PO PRN (16:30)
[2019-05-13] MEDS ORDERED: NOREPINEPHRINE 8 MG in IV D5W 500 ML IV PRN (16:30)
[2019-05-13] MEDS ORDERED: *INSULIN REGULAR(HUMULIN R)HUM 100 UNIT/ML VIAL SQ PRN (16:30)
[2019-05-13] MEDS ORDERED: DEXTROSE 50%-WATER 50 ML DISP.SYRIN IV PRN (16:30)
[2019-05-13] MEDS ORDERED: FEE PK DOSING 1 MIN EA MC ONE (17:39)
[2019-05-13] MEDS: BLOOD SUGAR DIAGNOSTIC 1 EACH STRIP VI SCH ×2 (17:48→21:13)
[2019-05-13] MEDS: INSULIN REGULAR, HUMAN 100 UNIT/ML 3 ML VIAL SQ PRN (17:49)
[2019-05-13] MEDS ORDERED: MICAFUNGIN SODIUM 100 MG in IV NS 0.9% 100 ML IV SCH (19:30)
[2019-05-13] MEDS: NEPRO 1,000 ML BOTTLE GT PRN (19:54)
[2019-05-13] MEDS ORDERED: VANCOMYCIN 1 GM in IV D5W 250 ML IV ONE (20:00)
[2019-05-13] MEDS: PIPERACILLIN /TAZOBACTAM 2.25 G in IV D5W 50 ML IV SCH (21:04)
[2019-05-13] MEDS: FLUCONAZOLE IN NS 100 MG in PREMIX 1 EA IV SCH ×2 (21:04)
[2019-05-14] MEDS: PIPERACILLIN /TAZOBACTAM 2.25 G in IV D5W 50 ML IV SCH ×3 (04:53→20:05)
[2019-05-14] MEDS: BLOOD SUGAR DIAGNOSTIC 1 EACH STRIP VI SCH ×3 (07:30→17:19)
[2019-05-14] MEDS: INSULIN REGULAR, HUMAN 100 UNIT/ML 3 ML VIAL SQ PRN ×3 (12:12→23:42)
[2019-05-14] MEDS ORDERED: VANCOMYCIN 1 GM in IV D5W 250 ML IV ONE (17:00)
[2019-05-14] MEDS: HYDROCODONE/APAP 5/325MG 1 EACH TABLET PO PRN (17:13)
[2019-05-14] MEDS ORDERED: VANCOMYCIN 500 MG in IV D5W 100 ML IV PRN (18:00)
[2019-05-14] MEDS ORDERED: DEXTROSE 50%-WATER 50 ML DISP.SYRIN IV PRN (20:00)
[2019-05-14] MEDS: FLUCONAZOLE IN NS 100 MG in PREMIX 1 EA IV SCH ×2 (20:05)
[2019-05-14] MEDS: NEPRO 1,000 ML BOTTLE GT PRN (20:05)
[2019-05-14] MEDS: BLOOD SUGAR DIAGNOSTIC 1 EACH STRIP IN SCH (23:41)
[2019-05-15] MEDS: PIPERACILLIN /TAZOBACTAM 2.25 G in IV D5W 50 ML IV SCH ×3 (04:41→20:17)
[2019-05-15] MEDS: BLOOD SUGAR DIAGNOSTIC 1 EACH STRIP IN SCH ×3 (05:44→17:46)
[2019-05-15] MEDS ORDERED: VANCOMYCIN 500 MG in IV D5W 100 ML IV PRN (06:00)
[2019-05-15] MEDS: INSULIN REGULAR, HUMAN 100 UNIT/ML 3 ML VIAL SQ PRN ×3 (06:32→17:48)
[2019-05-15] MEDS: AMMONIUM LACTATE 227 GM BOTTLE TP SCH ×2 (11:22→17:21)
[2019-05-15] MEDS: HYDROCORTISONE 2.5% CREAM 28.4 GM TUBE TP SCH ×2 (11:22→17:20)
[2019-05-15] MEDS: INSULIN GLARGINE, 100 UNIT/ML CARTRIDGE SQ SCH ×2 (14:10→21:46)
[2019-05-15] MEDS: TRIAMCINOLONE ACETONIDE 0.1% CR 15 GM TUBE TP SCH ×2 (14:11→17:20)
[2019-05-15] MEDS: HYDROGEL DRESSING 90 GM TUBE TP SCH (14:12)
[2019-05-15] MEDS: HYDROCODONE/APAP 5/325MG 1 EACH TABLET PO PRN (14:22)
[2019-05-15] MEDS: PROSOURCE / PROSTAT (PYXIS) 30 ML UDC GT SCH ×2 (14:30→23:15)
[2019-05-15] MEDS: LACTOBACILLUS RHAMNOSUS GG 1 EACH CAP.SPRINK GT SCH (17:47)
[2019-05-15] MEDS: NOREPINEPHRINE 16 MG in IV D5W 500 ML IV PRN (19:39)
[2019-05-15] MEDS: NEPRO 1,000 ML BOTTLE GT PRN (19:44)
[2019-05-15] MEDS: FLUCONAZOLE IN NS 100 MG in PREMIX 1 EA IV SCH ×2 (20:17)
[2019-05-15] MEDS: MUPIROCIN OINT 2% 22 GM TUBE SCH (21:51)
[2019-05-16] MEDS: BLOOD SUGAR DIAGNOSTIC 1 EACH STRIP IN SCH ×4 (00:49→17:08)
[2019-05-16] MEDS: INSULIN REGULAR, HUMAN 100 UNIT/ML 3 ML VIAL SQ PRN ×4 (00:54→17:10)
[2019-05-16] MEDS ORDERED: MUPIROCIN OINT 2% 22 GM TUBE ONE (01:37)
[2019-05-16] MEDS: PROSOURCE / PROSTAT (PYXIS) 30 ML UDC GT SCH ×3 (05:00→20:07)
[2019-05-16] MEDS: PIPERACILLIN /TAZOBACTAM 2.25 G in IV D5W 50 ML IV SCH (05:52)
[2019-05-16] MEDS: LACTOBACILLUS RHAMNOSUS GG 1 EACH CAP.SPRINK GT SCH ×2 (08:19→16:29)
[2019-05-16] MEDS: HYDROCORTISONE 2.5% CREAM 28.4 GM TUBE TP SCH ×2 (08:20→16:30)
[2019-05-16] MEDS: MUPIROCIN OINT 2% 22 GM TUBE SCH ×2 (08:20→20:08)
[2019-05-16] MEDS: TRIAMCINOLONE ACETONIDE 0.1% CR 15 GM TUBE TP SCH ×2 (08:20→16:29)
[2019-05-16] MEDS: AMMONIUM LACTATE 227 GM BOTTLE TP SCH ×2 (08:21→16:30)
[2019-05-16] MEDS: INSULIN GLARGINE, 100 UNIT/ML CARTRIDGE SQ SCH ×2 (08:28→20:08)
[2019-05-16] MEDS: DOXYCYCLINE HYCLATE (100 MG) 100 MG TABLET PO SCH (12:20)
[2019-05-16] MEDS: CEFEPIME 1 GM in IV D5W 50 ML IV SCH (12:20)
[2019-05-17] MEDS: BLOOD SUGAR DIAGNOSTIC 1 EACH STRIP IN SCH ×4 (00:14→17:07)
[2019-05-17] MEDS: INSULIN REGULAR, HUMAN 100 UNIT/ML 3 ML VIAL SQ PRN ×3 (00:19→17:08)
[2019-05-17] MEDS: FLUCONAZOLE IN NS 100 MG in PREMIX 1 EA IV SCH ×2 (01:20)
[2019-05-17] MEDS: DOXYCYCLINE HYCLATE (100 MG) 100 MG TABLET PO SCH ×3 (01:21→20:36)
[2019-05-17] MEDS: NEPRO 1,000 ML BOTTLE GT PRN ×2 (01:22→11:05)
[2019-05-17] MEDS: PROSOURCE / PROSTAT (PYXIS) 30 ML UDC GT SCH ×3 (05:43→20:42)
[2019-05-17] MEDS: LACTOBACILLUS RHAMNOSUS GG 1 EACH CAP.SPRINK GT SCH ×2 (09:02→16:48)
[2019-05-17] MEDS: TRIAMCINOLONE ACETONIDE 0.1% CR 15 GM TUBE TP SCH ×2 (09:05→16:49)
[2019-05-17] MEDS: HYDROCORTISONE 2.5% CREAM 28.4 GM TUBE TP SCH ×2 (09:05→16:49)
[2019-05-17] MEDS: HYDROGEL DRESSING 90 GM TUBE TP SCH (09:05)
[2019-05-17] MEDS: AMMONIUM LACTATE 227 GM BOTTLE TP SCH ×2 (09:05→16:49)
[2019-05-17] MEDS: MUPIROCIN OINT 2% 22 GM TUBE SCH ×2 (09:06→20:41)
[2019-05-17] MEDS: INSULIN GLARGINE, 100 UNIT/ML CARTRIDGE SQ SCH ×2 (09:17→20:55)
[2019-05-17] MEDS: CEFEPIME 1 GM in IV D5W 50 ML IV SCH (11:05)
[2019-05-17] MEDS: HYDROCODONE/APAP 5/325MG 1 EACH TABLET PO PRN (22:14)
[2019-05-18] MEDS: INSULIN REGULAR, HUMAN 100 UNIT/ML 3 ML VIAL SQ PRN ×3 (00:52→23:02)
[2019-05-18] MEDS: BLOOD SUGAR DIAGNOSTIC 1 EACH STRIP IN SCH ×5 (00:52→23:02)
[2019-05-18] MEDS: PROSOURCE / PROSTAT (PYXIS) 30 ML UDC GT SCH ×3 (05:40→20:40)
[2019-05-18] MEDS: DOXYCYCLINE HYCLATE (100 MG) 100 MG TABLET PO SCH (09:04)
[2019-05-18] MEDS: LACTOBACILLUS RHAMNOSUS GG 1 EACH CAP.SPRINK GT SCH ×2 (09:04→17:48)
[2019-05-18] MEDS: MUPIROCIN OINT 2% 22 GM TUBE SCH ×2 (09:04→20:41)
[2019-05-18] MEDS: HYDROGEL DRESSING 90 GM TUBE TP SCH (09:05)
[2019-05-18] MEDS: TRIAMCINOLONE ACETONIDE 0.1% CR 15 GM TUBE TP SCH ×2 (09:05→17:49)
[2019-05-18] MEDS: HYDROCORTISONE 2.5% CREAM 28.4 GM TUBE TP SCH ×2 (09:05→17:50)
[2019-05-18] MEDS: AMMONIUM LACTATE 227 GM BOTTLE TP SCH ×2 (09:06→17:50)
[2019-05-18] MEDS: INSULIN GLARGINE, 100 UNIT/ML CARTRIDGE SQ SCH ×2 (09:17→20:42)
[2019-05-18] MEDS: CEFEPIME 1 GM in IV D5W 50 ML IV SCH (11:46)
[2019-05-18] MEDS: NEPRO 1,000 ML BOTTLE GT PRN (17:49)
[2019-05-18] MEDS ORDERED: FEE PK DOSING 1 MIN EA MC ONE (19:38)
[2019-05-18] MEDS ORDERED: VANCOMYCIN 1 GM in IV D5W 250 ML IV ONE (20:00)
[2019-05-19] MEDS: PROSOURCE / PROSTAT (PYXIS) 30 ML UDC GT SCH ×2 (05:56→12:00)
[2019-05-19] MEDS: BLOOD SUGAR DIAGNOSTIC 1 EACH STRIP IN SCH ×3 (05:56→18:10)
[2019-05-19] MEDS: LACTOBACILLUS RHAMNOSUS GG 1 EACH CAP.SPRINK GT SCH ×2 (09:30→16:56)
[2019-05-19] MEDS: MUPIROCIN OINT 2% 22 GM TUBE SCH (09:31)
[2019-05-19] MEDS: TRIAMCINOLONE ACETONIDE 0.1% CR 15 GM TUBE TP SCH ×2 (09:33→16:56)
[2019-05-19] MEDS: HYDROCORTISONE 2.5% CREAM 28.4 GM TUBE TP SCH ×2 (09:33→16:55)
[2019-05-19] MEDS: HYDROGEL DRESSING 90 GM TUBE TP SCH (09:34)
[2019-05-19] MEDS: AMMONIUM LACTATE 227 GM BOTTLE TP SCH ×2 (09:34→16:56)
[2019-05-19] MEDS: INSULIN GLARGINE, 100 UNIT/ML CARTRIDGE SQ SCH (09:37)
[2019-05-19] MEDS ORDERED: POTASSIUM CHLORIDE 20 MEQ TAB.PRT.SR PO ONE (11:00)
[2019-05-19] MEDS: CEFEPIME 1 GM in IV D5W 50 ML IV SCH (11:21)
[2019-05-19] MEDS ORDERED: CEFE1FRO IV (11:36)
[2019-05-19] MEDS ORDERED: FEE PK DOSING 1 MIN EA MC ONE (15:20)
[2019-05-19] MEDS ORDERED: DOSING PER PHARMACY-AMIKACI IV XX PRN (15:30)
[2019-05-19] MEDS ORDERED: AMIKACIN 500 MG in IV D5W 100 ML IV ONE (16:00)
[2019-05-20] MEDS ORDERED: AMIKACIN 350 MG in IV D5W 100 ML IV PRN (09:00)
== END 2019-05-19 20:35 | DRG 710 ==
DX: A41.9 Sepsis, unspecified organism (principal); R65.21 Severe sepsis with septic shock; J96.20 Acute and chronic respiratory failure, unspecified whether with hypoxia or hypercapnia; G92 Toxic encephalopathy; Z99.11 Dependence on respirator [ventilator] status; L89.154 Pressure ulcer of sacral region, stage 4; G93.1 Anoxic brain damage, not elsewhere classified; L89.314 Pressure ulcer of right buttock, stage 4; L89.324 Pressure ulcer of left buttock, stage 4; E11.22 Type 2 diabetes mellitus with diabetic chronic kidney disease; R53.2 Functional quadriplegia; D68.59 Other primary thrombophilia; R13.10 Dysphagia, unspecified; I12.0 Hypertensive chronic kidney disease with stage 5 chronic kidney disease or end stage renal disease; N18.6 End stage renal disease; E11.65 Type 2 diabetes mellitus with hyperglycemia; E83.42 Hypomagnesemia; Z99.2 Dependence on renal dialysis; Z93.1 Gastrostomy status; D63.1 Anemia in chronic kidney disease; Z86.73 Personal history of transient ischemic attack (TIA), and cerebral infarction without residual deficits; K21.9 Gastro-esophageal reflux disease without esophagitis; I25.10 Atherosclerotic heart disease of native coronary artery without angina pectoris; Z89.611 Acquired absence of right leg above knee; Q78.8 Other specified osteochondrodysplasias; E87.2 Acidosis; L98.8 Other specified disorders of the skin and subcutaneous tissue; Z89.432 Acquired absence of left foot; N39.0 Urinary tract infection, site not specified; B96.89 Other specified bacterial agents as the cause of diseases classified elsewhere; R21 Rash and other nonspecific skin eruption; Z79.4 Long term (current) use of insulin

== ENCOUNTER 2019-07-04 16:34 | Inpatient (IN) | payer OTHER ==
[~2019-07-04] VITALS: Ht 152.4 cm; Wt 52.8 kg
[~2019-07-04 16:34] MED LIST changes: -ACET650S13 RC; -ALLA266C2 TP; +AMMO225L14 TP; +CALC0.253 GT; +CEFE1FRO IV; -COLI150V12 IJ; -ERGO500040 GT; -FENO145T GT; +INSU100I26 SQ; -INSU100I30 SQ; +IPRA3AMP23 IH; -MAG30ORA PO; +METO-295 GT; -METO10SY GT; -METR500T PO; +NEUTRA PHOS PACKET GT; +NUT.237L67 GT; -Nepro GT; +OMEP20TA5 GT; -ONDA2VIA IVP; +ONDA4TAB11 PO; -PANT40SU2 GT; -SODI473S8 TOP; +SUCR1ORA GT; -SUCR1ORA6 GT; -SULF1TAB3 PO; -VITA56.7 TP
--- NOTE | 2019-07-04 16:41 | NUR ---
"BIB ra for hypotension SBP 55 s/p dialysis." PT TO BED 6, PT ON MONITOR, MD AT RT AT BEDSIDE.
[2019-07-04 17:26] LABS: BASOPHILS # (AUTO) 0.2 /CMM (0.0-0.2); BASOPHILS % (AUTO) 0.7 % (0.0-2.0); EOSINOPHILS % (AUTO) 0.9 % (0.0-6.0); HEMATOCRIT 26 % (39-51); HEMOGLOBIN 7.9 g/dL (13.5-17.5); LYMPHOCYTES # (AUTO) 2.4 /CMM (0.8-4.8); LYMPHOCYTES % (AUTO) 9.4 % (20.0-44.0); MEAN CORPUSCULAR HGB CONC 30 g/dl (31.0-36.0); MEAN CORPUSCULAR VOLUME 99 fL (80-96); MONOCYTES # (AUTO) 1.8 /CMM (0.1-1.30); MONOCYTES % (AUTO) 7.1 % (2.0-12.0); NEUTROPHILS % (AUTO) 81.9 % (43.0-81.0); PLATELET COUNT (AUTO) 686 /CMM (150-450); RED BLOOD CELL COUNT(AUTO) 2.68 MIL/uL (4.5-6.0); WHITE BLOOD COUNT (AUTO) 25.7 K/uL (4.3-11.0)
[2019-07-04] MEDS ORDERED: IV NS 0.9% 500 ML BAG IV ONE (17:30)
[2019-07-04 17:31] LABS: CALCIUM, SERUM 8.7 mg/dL (8.5-10.1); POTASSIUM 3.2 mmol/L (3.5-5.1)
[2019-07-04] MEDS ORDERED: DEXT50DI8 IV (17:32)
[2019-07-04] MEDS ORDERED: FOLI0.8T2 GT (17:32)
[2019-07-04] MEDS ORDERED: GEL100GE TP (17:32)
[2019-07-04] MEDS ORDERED: VIT500LI GT (17:32)
[2019-07-04] MEDS ORDERED: INSU100V11 SQ (17:32)
[2019-07-04] MEDS ORDERED: KETO120S6 TP (17:32)
[2019-07-04] MEDS ORDERED: POVI3780 TP (17:32)
[2019-07-04] MEDS ORDERED: CADE40GE2 TP (17:32)
[2019-07-04] MEDS ORDERED: MEPILEX TP (17:32)
[2019-07-04] MEDS ORDERED: TRIA80CR12 TP (17:32)
[2019-07-04] MEDS ORDERED: ALBU1.257 IH (17:32)
[2019-07-04] MEDS ORDERED: ALLA266C2 TP (17:32)
[2019-07-04] MEDS ORDERED: SODI473S8 TOP (17:32)
[2019-07-04] MEDS ORDERED: POLY15DR40 EACHEYE (17:32)
[2019-07-04] MEDS ORDERED: SIME80TA15 GT (17:32)
[2019-07-04] MEDS ORDERED: ONDA4TAB10 GT (17:32)
[2019-07-04] MEDS ORDERED: HYDR1SOL TP (17:32)
[2019-07-04] MEDS ORDERED: LACT1CAP72 GT (17:32)
[2019-07-04] MEDS ORDERED: NYST15CR TP (17:32)
[2019-07-04 17:51] LABS: BAND % (MANUAL) 6 % (0.0-5.0); LYMPHOCYTES % (MANUAL) 6 % (16-48); MONOCYTES % (MANUAL) 6 % (0-11.0); NEUTROPHILS % (MANUAL) 82 (42-76)
[2019-07-04] MEDS ORDERED: HYDROCODONE/APAP 5/325MG 1 EACH TABLET PO PRN (19:00)
[2019-07-04] MEDS ORDERED: MAG HYDROX/AL HYDROX/SIMETH 30 ML UDC PO PRN (19:00)
[2019-07-04] MEDS ORDERED: ACETAMINOPHEN 325 MG TABLET PO PRN (19:00)
[2019-07-04] MEDS ORDERED: MAGNESIUM HYDROXIDE 30 ML UDC PO PRN (19:00)
[2019-07-04] MEDS ORDERED: ZOLPIDEM TARTRATE 5 MG TABLET PO PRN (19:00)
[2019-07-04] MEDS ORDERED: CEFTRIAXONE 1 G in IV D5W 50 ML IV SCH ×2 (19:30→21:00)
--- NOTE | 2019-07-04 20:26 | NUR ---
BED ASSIGNMENT 309-1
--- NOTE | 2019-07-04 20:52 | NUR ---
REPORT GIVEN TO ERIC CASTAÑEDA FOR MARKELL PT WILL BE TRANSPORTED TO 3RD FLOOR
[2019-07-04 21:00] VITALS: BP 109/78
--- NOTE | 2019-07-04 21:08 | NUR ---
pt transferred to 3rd floor
[2019-07-04 21:10] VITALS: BP 109/78
--- NOTE | 2019-07-04 21:10 | NUR ---
TELECOMMUNICATION LINES REPAIRERCONSTRUCTION FLAGGER NOTE RECEIVED PATIENT VIA GURNEY. PATIENT TRANSFERRED TO BED. 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 A/OXO, PATIENT NONVERBAL, OBTUNDED. PATIENT ON A VENTILATOR/TRACH. TRACH IS A SHILEY#8. VENT SETTINGS ARE 18/500/40/5 PEEP. EXTERNAL TELE MONITOR READS SR 95. PATIENT IS IN NO APPARENT DISTRESS AT THIS TIME. G-TUBE PRESENT, ASPIRATED, NO RESIDUAL, POSITIVE PLACEMENT, FLUSHED 30ML WATER WITH NO RESISTANCE. PATIENT HAS A DOUBLE LUMEN PICC LINE IN THE ABDIEL, PATENT AND SALINE LOCKED. RIGHT UPPER CHEST PORT FOR HD. INITIAL PHYSICAL ASSESSMENT COMPLETED AT THIS TIME. WILL WAIT FOR ISOLATION CART TO CONDUCT SKIN ASSESSMENT. BELONGINGS LIST COMPLETED BY OFFSET LITHOGRAPHIC PRESS OPERATOR. ROOM ORIENTATION GIVEN. BED IS LOW AND LOCKED, SIDE RAILS UPX2, HOB ELEVATED 30 DEGREES. CALL LIGHT WITHIN REACH. FAMILY AT THE BEDSIDE. WILL CONTINUE TO MONITOR.
[2019-07-04] MEDS ORDERED: CEFTRIAXONE 1 G VIAL ONE (22:14)
--- NOTE | 2019-07-04 22:15 | NUR ---
ENGLISH DRAWER NOTE CHARGE NURSE OVERRIDE FOR ROCEPHIN 1G IN D5 50ML BAG D/T PHARMACY NOT AVAILABLE.
--- NOTE | 2019-07-04 22:25 | NUR ---
SAT MATH TUTOR NOTE SKIN ASSESSMENT COMPLETED AT THIS TIME. PICTURES TAKEN AND PLACED IN CHART.
[2019-07-05] VITALS (10 sets, daily range): BP systolic 91–125; BP diastolic 20–78
[2019-07-05] MEDS ORDERED: ALBUTEROL HALF STRENGTH 1.25 MG/3 ML VIAL.NEB NEB PRN (01:00)
[2019-07-05] MEDS ORDERED: NEPRO 1,000 ML BOTTLE GT SCH ×3 (03:30→08:24)
--- NOTE | 2019-07-05 05:45 | NUR ---
FILM MAKER NOTE PATIENT HAD AN EPISODE OF VOMITING. GTUBE FEEDING STOPPED. PATIENT CLEANED, REPOSITIONED WITH HOB ELEVATED 60 DEGREES. CHARGE NURSE NOTIFIED. WILL CONTINUE TO MONITOR.
--- NOTE | 2019-07-05 06:01 | NUR ---
PT rec'd trached on [facility] vent on ac mode. No resp distress or SOB noted. Trach is patent and secured. sx'd for thick mod amt of thick yellow secretions. Alarms are set and audible. vent plugged into red outlet. Ambu bag bedside. Addendum: 07/05/19 at 0603 by MANISH DOMINGUEZ RT Amended: Links added.
--- NOTE | 2019-07-05 06:43 | NUR ---
HARNESS RACING HANDICAPPER CLOSING NOTE PATIENT IN BED. 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 A/OXO, PATIENT NONVERBAL, OBTUNDED. PATIENT REMAINS ON A VENTILATOR/TRACH. TRACH REMAINS A SHILEY#8. VENT SETTINGS MAINTAINED AT RR 18/ VT50/FLOW40/5 PEEP. EXTERNAL TELE MONITOR READS SR 95. NO DISTRESS THROUGHOUT SHIFT. G-TUBE MAINTAINED, ASPIRATED, NO RESIDUAL, POSITIVE PLACEMENT, FLUSHED 30ML WATER WITH NO RESISTANCE. FEEDING STOPPED D/T EPISODE OF EMESIS. IV SITE REMAINS DOUBLE LUMEN PICC LINE IN THE ABDIEL, PATENT AND SALINE LOCKED. RIGHT UPPER CHEST PORT FOR HD. BED IS LOW AND LOCKED, SIDE RAILS UPX2, HOB ELEVATED 60 DEGREES. CALL LIGHT WITHIN REACH. WILL ENDORSE TO NEXT SHIFT
[2019-07-05 07:06] LABS: BASOPHILS # (AUTO) 0.1 /CMM (0.0-0.2); BASOPHILS % (AUTO) 0.5 % (0.0-2.0); EOSINOPHILS % (AUTO) 2.4 % (0.0-6.0); HEMATOCRIT 25 % (39-51); HEMOGLOBIN 7.6 g/dL (13.5-17.5); LYMPHOCYTES # (AUTO) 1.8 /CMM (0.8-4.8); LYMPHOCYTES % (AUTO) 11.3 % (20.0-44.0); MEAN CORPUSCULAR HGB CONC 30 g/dl (31.0-36.0); MEAN CORPUSCULAR VOLUME 97 fL (80-96); MONOCYTES # (AUTO) 1.2 /CMM (0.1-1.30); MONOCYTES % (AUTO) 7.7 % (2.0-12.0); NEUTROPHILS # (AUTO) 12.4 /CMM (1.8-8.9); NEUTROPHILS % (AUTO) 78.1 % (43.0-81.0); PLATELET COUNT (AUTO) 672 /CMM (150-450); RED BLOOD CELL COUNT(AUTO) 2.56 MIL/uL (4.5-6.0); WHITE BLOOD COUNT (AUTO) 15.8 K/uL (4.3-11.0)
[2019-07-05 07:33] LABS: CALCIUM, SERUM 8.9 mg/dL (8.5-10.1); CREATININE 2.8 mg/dL (0.6-1.3); MAGNESIUM 2.1 mg/dL (1.8-2.4); PHOSPHORUS 4.1 mg/dL (2.5-4.9); POTASSIUM 3.2 mmol/L (3.5-5.1)
[2019-07-05 07:44] LABS: EOSINOPHILS % (MANUAL) 2 % (0-4); LYMPHOCYTES % (MANUAL) 9 % (16-48); MONOCYTES % (MANUAL) 5 % (0-11.0); NEUTROPHILS % (MANUAL) 84 (42-76)
--- NOTE | 2019-07-05 08:05 | NUR ---
ms rn received on bed, non verbal patient, ot in any form of distress, respirations even and unlabored,no sob noted, will monitor patient's condition.
[2019-07-05] MEDS ORDERED: NA PHOS,M-B/NA PHOS,DI-BA 1 EA ENEMA RC PRN (11:00)
[2019-07-05] MEDS ORDERED: HYDROGEN PEROXIDE 480 ML BOTTLE TP PRN ×2 (11:00→11:30)
[2019-07-05] MEDS ORDERED: ALBUTEROL HALF STRENGTH 1.25 MG/3 ML VIAL.NEB IH PRN (11:00)
[2019-07-05] MEDS ORDERED: DEXTROSE 50%-WATER 50 ML DISP.SYRIN IV PRN ×2 (11:00→12:00)
[2019-07-05] MEDS ORDERED: SIMETHICONE 80 MG TAB.CHEW GT PRN (11:00)
[2019-07-05] MEDS ORDERED: ACETAMINOPHEN 325 MG TABLET PO PRN (11:00)
[2019-07-05] MEDS ORDERED: ONDANSETRON 4 MG TAB.RAPDIS GT PRN (11:00)
[2019-07-05] MEDS ORDERED: BISACODYL SUPP (10 MG) 10 MG/SUPP.RECT SUPP.RECT RC PRN (11:00)
[2019-07-05] MEDS ORDERED: CLONIDINE HCL 0.1 MG TABLET GT PRN (11:00)
[2019-07-05] MEDS: PANTOPRAZOLE 40 MG VIAL IV SCH (11:18)
[2019-07-05] MEDS: METOPROLOL TARTRATE 50 MG TABLET GT SCH ×2 (11:30→21:00)
[2019-07-05] MEDS: INSULIN GLARGINE, 100 UNIT/ML CARTRIDGE SQ SCH ×2 (11:30→21:00)
[2019-07-05] MEDS ORDERED: EPOETIN ALFA (10,000 UNIT) 10,000 UNIT/ML VIAL IV ONE (12:00)
[2019-07-05] MEDS ORDERED: BLOOD SUGAR DIAGNOSTIC 1 EACH STRIP IN SCH (12:00)
[2019-07-05] MEDS: POLYVINYL ALCOHOL 15 ML BOTTLE EACHEYE SCH ×2 (12:00→18:18)
[2019-07-05] MEDS: BLOOD SUGAR DIAGNOSTIC 1 EACH STRIP IN SCH ×2 (12:00→18:19)
--- NOTE | 2019-07-05 12:00 | NUR ---
ms rn ms rn was seen by reina real/ orders made and carriedout.
--- NOTE | 2019-07-05 15:00 | NUR ---
ms rn still feeding held due to vomiting from previous shift.
[2019-07-05] MEDS: VIT B CMPLX 3/FA/VIT C/BIOTIN 1 TAB TABLET PO SCH (15:52)
[2019-07-05] MEDS: SUCRALFATE 1 G/10 ML UDC GT SCH (15:52)
[2019-07-05] MEDS: NEUTRA PHOS 1 POWD.PACKET GT SCH (15:53)
[2019-07-05] MEDS: METOCLOPRAMIDE HCL 10 MG TABLET GT SCH ×2 (15:53→22:19)
[2019-07-05] MEDS: ASCORBIC ACID 500 MG TABLET GT SCH (15:53)
[2019-07-05] MEDS ORDERED: POVIDONE-IODINE OINT 28.4 GM TUBE TP SCH (17:00)
[2019-07-05] MEDS: PROSOURCE / PROSTAT (PYXIS) 30 ML UDC GT SCH (18:16)
[2019-07-05] MEDS: DAKINS QUARTER STRENGTH (0.125%) 480 ML BOTTLE TOP SCH ×2 (18:17→22:22)
[2019-07-05] MEDS: CALCITRIOL 0.25 MCG CAPSULE GT SCH (18:17)
[2019-07-05] MEDS: HYDROGEL DRESSING 90 GM TUBE TP SCH ×2 (18:23→22:24)
[2019-07-05] MEDS: LACTOBACILLUS RHAMNOSUS GG 1 EACH CAP.SPRINK GT SCH (18:23)
[2019-07-05] MEDS: CLOTRIMAZOLE 1% 15 GM TUBE TP SCH (18:33)
[2019-07-05] MEDS: INSULIN ASPART/LISPRO 100 UNIT/ML CARTRIDGE SQ PRN (19:05)
--- NOTE | 2019-07-05 19:30 | NUR ---
VESSEL SLAGMAN OPENING NOTE RECEIVED PATIENT IN BED. 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 A/OXO, PATIENT NONVERBAL, OBTUNDED. PATIENT ON A VENTILATOR/TRACH. TRACH SIZE SHILEY#8. VENT SETTINGS AT RR 18/ VT50/FLOW40/5 PEEP. VENT ALARMS ARE ON. EXTERNAL TELE MONITOR READS SR 96. NO DISTRESS NOTED AT THIS TIME. G-TUBE PRESENT, ASPIRATED, NO RESIDUAL, POSITIVE PLACEMENT, FLUSHED 30ML WATER WITH NO RESISTANCE. NO G-TUBE FEEDING CURRENTLY WAS ENDORSE TO CONTINUE GTUBE FEEDING AFTER HD. IV ACCESS IN DOUBLE LUMEN PICC LINE IN THE ABDIEL, PATENT AND SALINE LOCKED. RIGHT UPPER CHEST PORT FOR HD. PATIENT CURRENTLY RECEIVING HD. BED IS LOW AND LOCKED, SIDE RAILS UPX2, HOB ELEVATED 60 DEGREES. CALL LIGHT WITHIN REACH. WILL CONTINUE TO MONITOR.
--- NOTE | 2019-07-05 20:00 | NUR ---
FORENSICS ANALYST NOTE HD NURSE REPORTED BP 110/20. NO OUTPUT, JUST CLEANING. NOTIFIED CHARGE NURSE. WILL REASSESS BP.
[2019-07-05] MEDS ORDERED: HYDROGEL DRESSING 90 GM TUBE TP SCH (21:00)
[2019-07-05] MEDS ORDERED: AMMONIUM LACTATE 227 GM BOTTLE TP SCH (21:00)
[2019-07-05] MEDS ORDERED: Z GUARD REMEDY 2 OZ OINT TP SCH (21:00)
[2019-07-05] MEDS ORDERED: DAKINS QUARTER STRENGTH (0.125%) 480 ML BOTTLE TOP SCH (21:00)
[2019-07-05] MEDS ORDERED: CADEXOMER IODINE 40 GM TUBE TP SCH (21:00)
[2019-07-05] MEDS ORDERED: NYSTATIN CREAM 15 GM TUBE TP SCH (21:00)
[2019-07-05] MEDS: HYDROCODONE/APAP 5/325MG 1 EACH TABLET GT SCH (21:00)
[2019-07-05] MEDS ORDERED: TRIAMCINOLONE ACETONIDE 0.1% CR 15 GM TUBE TP SCH (21:00)
--- NOTE | 2019-07-05 22:15 | NUR ---
RICE FIELD WORKER NOTE DID NOT ADMINISTER LOPRESSOR 100MG, NORCO 5/325, AND LANTUS 26 UNITS D/T BP 101/27 HR108. WILL CONTINUE TO MONITOR.
[2019-07-05] MEDS: ACETAMINOPHEN 650 MG/20.3 ML UDC GT PRN (22:18)
--- NOTE | 2019-07-05 22:20 | NUR ---
PRODUCTION REPAIRER NOTE ADMINISTERED PRN TYLENOL 650MG D/T TEMP 99.7. WILL CONTINUE TO MONITOR.
[2019-07-05] MEDS: AMMONIUM LACTATE 227 GM BOTTLE TP SCH (22:22)
[2019-07-05] MEDS: NYSTATIN CREAM 15 GM TUBE TP SCH (22:23)
[2019-07-05] MEDS: Z GUARD REMEDY 4 OZ OINT TP SCH (22:23)
[2019-07-05] MEDS: CADEXOMER IODINE 40 GM TUBE TP SCH (22:23)
[2019-07-05] MEDS: TRIAMCINOLONE ACETONIDE 0.1% CR 15 GM TUBE TP SCH (22:23)
[2019-07-05] MEDS: HYDROGEN PEROXIDE 480 ML BOTTLE TP SCH (22:25)
[2019-07-05] MEDS: POVIDONE IODINE 5% TP SCH (22:26)
--- NOTE | 2019-07-05 23:30 | NUR ---
SUPERVISOR MILL NOTE AXILLARY TEMP 99.8. TOOK COVERS OFF PATIENT, PLACED ICE ON PATIENT. WILL CONTINUE TO MONITOR.
--- NOTE | 2019-07-05 23:40 | NUR ---
GROCERY WORKER NOTE INFORMED MD ABOUT TEMPERATURES, AND LOW BLOOD PRESSURE. MD ORDERED STAT LACTIC ACID, AND 1L NS BOLUS TO BEGIN AFTER BLOOD DRAW. ORDERS READ BACK, NOTED AND CARRIED OUT.
[2019-07-06] VITALS (7 sets, daily range): BP systolic 98–134; BP diastolic 38–72
[2019-07-06] MEDS ORDERED: IV NS 0.9% 1,000 ML IV PRN
--- NOTE | 2019-07-06 | NUR ---
SENIOR PAYROLL MANAGER NOTE 0000 BEGAN 1L NS BOLUS PER ORDER. WILL CONTINUE TO MONITOR.
[2019-07-06 00:25] LABS: ALBUMIN 2.1 g/dL (3.4-5.0)
[2019-07-06] MEDS: POLYVINYL ALCOHOL 15 ML BOTTLE EACHEYE SCH ×5 (00:27→23:35)
[2019-07-06] MEDS: BLOOD SUGAR DIAGNOSTIC 1 EACH STRIP IN SCH ×5 (00:30→23:42)
[2019-07-06] MEDS: INSULIN ASPART/LISPRO 100 UNIT/ML CARTRIDGE SQ PRN ×5 (00:39→23:50)
--- NOTE | 2019-07-06 00:40 | NUR ---
DOCK BOSS NOTE RECEIVED A CALL FROM LAB, REPORTING CRITICAL LAB OF LACTIC 3.4. WILL NOTIFY
--- NOTE | 2019-07-06 00:50 | NUR ---
TREE FELLER OPERATOR NOTE ORDER 800ML BNS BOLUS. NS @75ML/HR. ORDER NOTED AND CARRIED OUT.
[2019-07-06] MEDS ORDERED: NS 0.9% IV PRN (01:00)
[2019-07-06] MEDS: IV NS 0.9% 1,000 ML IV PRN ×3 (01:25→22:29)
--- NOTE | 2019-07-06 01:35 | NUR ---
TOBACCO PACKER NOTE TEMP 98.7. WILL CONTINUE TO MONITOR.
--- NOTE | 2019-07-06 02:00 | NUR ---
PICKUP DRIVER NOTE LACTIC ACID DRAWN.
--- NOTE | 2019-07-06 02:40 | NUR ---
CITY PLANNING ENGINEER NOTE RECEIVED A CALL FROM LAB. CRITICAL LAB REPORTED LACTIC ACID. 3.9. WILL NOTIFY
--- NOTE | 2019-07-06 02:50 | NUR ---
MEDIA SUPERVISOR NOTE NOTIFIED MD. NO NEW ORDERS AT THIS TIME.
[2019-07-06 04:19] LABS: BASOPHILS # (AUTO) 0.1 /CMM (0.0-0.2); BASOPHILS % (AUTO) 0.6 % (0.0-2.0); EOSINOPHILS % (AUTO) 3.4 % (0.0-6.0); HEMATOCRIT 25 % (39-51); HEMOGLOBIN 7.4 g/dL (13.5-17.5); LYMPHOCYTES # (AUTO) 2.2 /CMM (0.8-4.8); LYMPHOCYTES % (AUTO) 14.4 % (20.0-44.0); MEAN CORPUSCULAR HGB CONC 30 g/dl (31.0-36.0); MEAN CORPUSCULAR VOLUME 99 fL (80-96); MONOCYTES # (AUTO) 1.1 /CMM (0.1-1.30); MONOCYTES % (AUTO) 7.3 % (2.0-12.0); NEUTROPHILS # (AUTO) 11.6 /CMM (1.8-8.9); NEUTROPHILS % (AUTO) 74.3 % (43.0-81.0); PLATELET COUNT (AUTO) 639 /CMM (150-450); RED BLOOD CELL COUNT(AUTO) 2.52 MIL/uL (4.5-6.0); WHITE BLOOD COUNT (AUTO) 15.5 K/uL (4.3-11.0)
[2019-07-06 04:29] LABS: BILIRUBIN,DIRECT 0.1 mg/dL (0.0-0.2); BILIRUBIN,TOTAL 0.2 mg/dL (0.2-1.0)
[2019-07-06 04:32] LABS: IRON, SERUM 42 ug/dl (50-175); TOTAL IRON BINDING CAPACITY 160 ug/dl (250-450)
--- NOTE | 2019-07-06 04:40 | NUR ---
TRACTOR CRANE OPERATOR NOTE RECEIVED A CRITICAL LAB. LACTIC ACID 4.4. READ BACK AND NOTED. WILL NOTIFY .
--- NOTE | 2019-07-06 04:45 | NUR ---
GUEST ATTENDANT NOTE MD ORDER 500ML NS BOLUS, ONE TIME, NOW. READ BACK, NOTED AND CARRIED OUT.
[2019-07-06 05:06] LABS: FERRITIN 6025 ng/mL (8-388)
[2019-07-06] MEDS: METOCLOPRAMIDE HCL 10 MG TABLET GT SCH ×3 (05:11→22:02)
[2019-07-06] MEDS ORDERED: IV NS 0.9% 500 ML IV ONE (05:30)
[2019-07-06] MEDS ORDERED: PANTOPRAZOLE 40 MG/PACK PACK GT SCH (06:00)
--- NOTE | 2019-07-06 06:40 | NUR ---
LOAD DROPPER NOTE PAPPAS CATHETER INSERTED. URINE COLLECTED FOR URINE CULTURE AND URINE ANALYSIS.
--- NOTE | 2019-07-06 07:00 | NUR ---
COACH WIRER CLOSING NOTE PATIENT IN BED. 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 A/OXO, PATIENT NONVERBAL, OBTUNDED. PATIENT REMAINS ON A VENTILATOR/TRACH. TRACH REMAINS A SHILEY#8. VENT SETTINGS MAINTAINED AT RR 18/ VT50/FLOW40. EXTERNAL TELE MONITOR READS SR 100'S. NO DISTRESS THROUGHOUT SHIFT. G-TUBE MAINTAINED, ASPIRATED, NO RESIDUAL, POSITIVE PLACEMENT, FLUSHED 30ML WATER WITH NO RESISTANCE. FEEDING STARTED 2029, INTAKE 686. IV SITE REMAINS DOUBLE LUMEN PICC LINE IN THE ABDIEL, PATENT AND RUNNING NS @75ML/HR. RIGHT UPPER CHEST PORT FOR HD. HD COMPLETED AT 1999, NO OUTPUT, CLEANING ONLY. BR REPORTED WAS LOW 110/20. PAPPAS CATHETER IS PRESENT, DRAINING TO GRAVITY, URINE IS GREYISH YELLOW COLOR. URINE SPECIMEN COLLECTED AND SENT TO LAB. BED IS LOW AND LOCKED, SIDE RAILS UPX2, HOB ELEVATED 60 DEGREES. CALL LIGHT WITHIN REACH. WILL ENDORSE TO NEXT SHIFT
--- NOTE | 2019-07-06 07:30 | NUR ---
RECEPTION MANAGER NOTES PT IN BED, AWAKE, NON VERBAL, NO SIGN OF PAIN OR DISTRESS, GT FEEDING INFUSING WELL, KEPT HOB ELEVATED, REPOSITIONED FOR COMFORT, KEPT HEELS OFFLOADED, KEPT WARM AND COMFORTABLE.
[2019-07-06] MEDS: POVIDONE IODINE 5% TP SCH ×2 (09:00→21:00)
[2019-07-06] MEDS: METOPROLOL TARTRATE 50 MG TABLET GT SCH ×2 (09:00→22:02)
[2019-07-06] MEDS: HYDROGEN PEROXIDE 480 ML BOTTLE TP SCH ×2 (09:00→22:28)
[2019-07-06] MEDS: BETADINE 5% CREAM TP SCH (09:00)
[2019-07-06] MEDS: PROSOURCE / PROSTAT (PYXIS) 30 ML UDC GT SCH ×2 (09:14→16:09)
[2019-07-06] MEDS: CLOTRIMAZOLE 1% 15 GM TUBE TP SCH ×2 (09:16→16:10)
[2019-07-06] MEDS: Z GUARD REMEDY 2 OZ OINT TP PRN (09:17)
[2019-07-06] MEDS: NEUTRA PHOS 1 POWD.PACKET GT SCH (09:18)
[2019-07-06] MEDS: CALCITRIOL 0.25 MCG CAPSULE GT SCH (09:18)
[2019-07-06] MEDS: ASCORBIC ACID 500 MG TABLET GT SCH (09:19)
[2019-07-06] MEDS: VIT B CMPLX 3/FA/VIT C/BIOTIN 1 TAB TABLET PO SCH (09:19)
[2019-07-06] MEDS: ZINC SULFATE 220 MG CAPSULE GT SCH (09:19)
[2019-07-06] MEDS: SUCRALFATE 1 G/10 ML UDC GT SCH (09:19)
[2019-07-06] MEDS: HYDROCODONE/APAP 5/325MG 1 EACH TABLET GT SCH ×2 (09:19→22:01)
[2019-07-06] MEDS: LACTOBACILLUS RHAMNOSUS GG 1 EACH CAP.SPRINK GT SCH ×2 (09:19→16:09)
[2019-07-06] MEDS: PANTOPRAZOLE 40 MG VIAL IV SCH (09:19)
[2019-07-06] MEDS: DAKINS QUARTER STRENGTH (0.125%) 480 ML BOTTLE TOP SCH ×3 (09:21→22:08)
[2019-07-06] MEDS: HYDROGEL DRESSING 90 GM TUBE TP SCH ×3 (09:21→22:10)
[2019-07-06] MEDS: AMMONIUM LACTATE 227 GM BOTTLE TP SCH ×2 (09:21→22:14)
[2019-07-06] MEDS: CADEXOMER IODINE 40 GM TUBE TP SCH ×2 (09:22→22:12)
[2019-07-06] MEDS: NYSTATIN CREAM 15 GM TUBE TP SCH ×2 (09:22→22:13)
[2019-07-06] MEDS: TRIAMCINOLONE ACETONIDE 0.1% CR 15 GM TUBE TP SCH ×2 (09:22→22:12)
[2019-07-06] MEDS: Z GUARD REMEDY 4 OZ OINT TP SCH ×2 (09:26→22:10)
[2019-07-06] MEDS: INSULIN GLARGINE, 100 UNIT/ML CARTRIDGE SQ SCH ×2 (09:40→22:04)
[2019-07-06 11:45] LABS: APPEARANCE,URINE CLOUDY (CLEAR)
[2019-07-06 11:46] LABS: COLOR,URINE YELLOW (YELLOW); PROTEIN,URINE 2+ mg/dl (NEGATIVE); UGLUCOSE NEGATIVE (NEGATIVE)
[2019-07-06 11:47] LABS: BILIRUBIN,URINE NEGATIVE (NEGATIVE); BLOOD, URINE 3+ Ery/uL (NEGATIVE); KETONES,URINE NEGATIVE (NEGATIVE); LEUKOCYTE ESTERASE ,URINE 2+ (NEGATIVE); NITRITE, URINE NEGATIVE (NEGATIVE); UROBILINOGEN,URINE 0.2 EU/dL (0.2)
[2019-07-06 11:51] LABS: BACTERIA,URINE 1+ /HPF (None Seen); WBC,URINE TOO NUMEROUS TO COUN /HPF (0-3)
[2019-07-06 11:52] LABS: SQUAMOUS EPITHELIAL CELL,UR Rare /HPF (None Seen); URINE AMORPHOUS PHOSPHATES Moderate /HPF (None Seen)
[2019-07-06] MEDS: ACETAMINOPHEN 650 MG/20.3 ML UDC GT PRN (12:15)
--- NOTE | 2019-07-06 12:39 | NUR ---
BUSINESS INTELLIGENCE ANALYST NOTES BETADINE CREAM NOT AVAILABLE, DR. FONTANA INFORMED, PT ALREADY ON IODOSORB, MD WILL D/C BETADINE CREAM ORDER.
[2019-07-06] MEDS: ONDANSETRON HCL/PF 4 MG/2 ML VIAL IVP PRN (13:44)
--- NOTE | 2019-07-06 18:52 | NUR ---
JUNIOR PARALEGAL NOTES PT IN BED, RESTING, NOT IN DISTRESS, NO FACIAL GRIMACING OR MOANING, FAMILY AT BEDSIDE, ON CONTACT ISOLATION FOR MRSA NARES, PM MEDS GIVEN ORDERED, SKIN TREATMENTS AND DRESSING CHANGE DONE, TURNED AND REPOSITIONED FOR COMFORT, MD AWARE OF EPISODE OF ELEVATED TEMPERATURE, F/C DRAINING WELL, KEPT WARM AND COMFORTABLE IN BED.
--- NOTE | 2019-07-06 19:10 | NUR ---
business analytics faculty member notes Received Pt from morning nurse. Pt is resting in bed comfortably, awake and non verbal. No SOB. No S/S of distress noted. Pt's family at the bedside. GTube feeding is infusing well Nephro @ 55 ml/hr. ABDIEL PICC is clean, intact and patent and infusing well NS @ 75 ml/hr. RUC_HD is clean, intact and patent. monitoring manager showed sinus tachy. Keep HOB elevated all the time. Turn and reposition Q 2 hr and Keep offloaded. Michel cath is intact and patent. Instructed Pt's family to call for assistance. Safety precautions is maintained all the time. Bed at low position, brakes locked, side rails upX3 and call light is within reach. Will continue to monitor
[2019-07-06] MEDS ORDERED: FEE PK DOSING 1 MIN EA MC ONE (19:20)
--- NOTE | 2019-07-06 19:55 | NUR ---
RT NOTE: RECEIVED TRACH PT ON [facility] VENT ON NOTED SETTINGS PER MD ORDERS. TRACH IS PATENT AND SECURED. TRACH CARE DONE. SOCIAL WORK MANAGER DONE. SX DONE PRN. VENT PLUGGED INTO RED OUTLET. ALARMS ON AND AUDIBLE. COLTON TORRES @ BEDSIDE. NO RESP DISTRESS AT THIS TIME. WILL CONT TO MONITOR PT. Addendum: 07/07/19 at 0510 by CELY STERLING RT Amended: Links added.
[2019-07-06] MEDS ORDERED: VANCOMYCIN 1 GM in IV D5W 250 ML IV ONE (20:00)
--- NOTE | 2019-07-06 21:30 | NUR ---
take out waiter/waitress notes Not administered Betadine 5% because is not available. Per morning nurse, Dr. Abbott is informed and MD will D/C, Pt is already on iodosorb. Will continue to monitor.
[2019-07-06] MEDS: MEROPENEM 500 MG in IV NS 0.9% 50 ML IV SCH (22:05)
[2019-07-06] MEDS: MUPIROCIN OINT 2% 22 GM TUBE SCH (22:09)
[2019-07-07] VITALS (10 sets, daily range): BP systolic 98–136; BP diastolic 47–78
[2019-07-07] MEDS: NEPRO 1,000 ML BOTTLE GT SCH (01:17)
--- NOTE | 2019-07-07 01:19 | NUR ---
timber poisoner notes Administered Nephro 1.8 shashank as ordered rate 55ml/hr. Will continue to monitor.
[2019-07-07] MEDS: METOCLOPRAMIDE HCL 10 MG TABLET GT SCH ×3 (04:55→20:18)
[2019-07-07] MEDS: POLYVINYL ALCOHOL 15 ML BOTTLE EACHEYE SCH ×3 (05:06→18:57)
[2019-07-07] MEDS: BLOOD SUGAR DIAGNOSTIC 1 EACH STRIP IN SCH ×3 (05:12→17:31)
[2019-07-07] MEDS: INSULIN ASPART/LISPRO 100 UNIT/ML CARTRIDGE SQ PRN ×3 (05:14→17:32)
--- NOTE | 2019-07-07 05:15 | NUR ---
supervisor home energy consultant notes Pt's blood sugar in am was 129. No Insulin coverage was given. Will continue to monitor.
--- NOTE | 2019-07-07 06:50 | NUR ---
graduation coach notes Pt is resting in bed comfortably. No S/S of distress noted. ABDIEL PICC is clean, intact, patent and infuising well NS @ 75 ml/hr. Right upper chest HD is clean, intact and patent. Routine meds were given as ordered. VS is stable. Afebrile. Tele monitor showed Sinus tachy 115 bpm. Wound care is provided as ordered. Pt tolerated activity well. Michel cath is clean, intact, patent. Turned and repositioned Q 2 hr. Kept Pt clean, dry and comfortable. HOB elevated all the time. Safety precautions is maintained all the time. Bed at low position, brakes locked, side rails upX3 and call light is within reach. Will endorse to morning nurse for MARKELL.
[2019-07-07 07:00] LABS: CALCIUM, SERUM 8.7 mg/dL (8.5-10.1); CARBON DIOXIDE 20 mmol/L (21-32); CHLORIDE 108 mmol/L (98-107); CREATININE 3.2 mg/dL (0.6-1.3); GLUCOSE 181 mg/dL (74-106); POTASSIUM 3.1 mmol/L (3.5-5.1); SODIUM SERUM 144 mmol/L (136-145); UREA NITROGEN, BLOOD 39 mg/dL (7-18)
--- NOTE | 2019-07-07 07:20 | NUR ---
ASSORTMENT PLANNER NOTES PATIENT RESTING IN BED, WITH HOB UP. PATIENT IN NO RESPIRATORY DISTRESS, VENT SETTINGS PRESCRIBED. PATIENT WITH NO S/S OF PAIN. SKIN WARM TO TOUCH. PICC LINE ON THE ABDIEL NS INFUSING AT 75ML/HR. GT FEEDING OF NEPHRO RUNNING AT 55ML/HR, TOLERATING WELL. PATIENT'S NEEDS ATTENDED. BED ON LOWEST LOCKED POSITION, CALL LIGHT WITHIN REACH. WILL CONTINUE TO MONITOR.
[2019-07-07 07:31] LABS: IRON, SERUM 28 ug/dl (50-175); TOTAL IRON BINDING CAPACITY 122 ug/dl (250-450)
[2019-07-07 07:47] LABS: BASOPHILS # (AUTO) 0.1 /CMM (0.0-0.2); BASOPHILS % (AUTO) 0.6 % (0.0-2.0); EOSINOPHILS % (AUTO) 4.1 % (0.0-6.0); HEMATOCRIT 24 % (39-51); LYMPHOCYTES # (AUTO) 1.7 /CMM (0.8-4.8); LYMPHOCYTES % (AUTO) 9.1 % (20.0-44.0); MEAN CORPUSCULAR HGB CONC 30 g/dl (31.0-36.0); MEAN CORPUSCULAR VOLUME 99 fL (80-96); MONOCYTES # (AUTO) 1.5 /CMM (0.1-1.30); MONOCYTES % (AUTO) 7.6 % (2.0-12.0); NEUTROPHILS # (AUTO) 15.1 /CMM (1.8-8.9); NEUTROPHILS % (AUTO) 78.6 % (43.0-81.0); PLATELET COUNT (AUTO) 602 /CMM (150-450); RED BLOOD CELL COUNT(AUTO) 2.39 MIL/uL (4.5-6.0); WHITE BLOOD COUNT (AUTO) 19.3 K/uL (4.3-11.0)
--- NOTE | 2019-07-07 08:08 | NUR ---
TECHNICAL RECRUITER NOTES ROSS FROM LAB CALLED TO REPORT LACTIC ACID VALUE OF 2.3 AND HEMOGLOBIN AT 7.O. WILL INFORM MD FOR RESULTS.
[2019-07-07 08:17] LABS: FERRITIN 3358 ng/mL (8-388)
[2019-07-07] MEDS: ACETAMINOPHEN 650 MG/20.3 ML UDC GT PRN ×2 (08:45→18:42)
[2019-07-07] MEDS: NEUTRA PHOS 1 POWD.PACKET GT SCH (08:51)
[2019-07-07] MEDS: MEROPENEM 500 MG in IV NS 0.9% 50 ML IV SCH ×2 (08:51→20:23)
[2019-07-07] MEDS: VIT B CMPLX 3/FA/VIT C/BIOTIN 1 TAB TABLET PO SCH (08:52)
[2019-07-07] MEDS: ZINC SULFATE 220 MG CAPSULE GT SCH (08:52)
[2019-07-07] MEDS: ASCORBIC ACID 500 MG TABLET GT SCH (08:52)
[2019-07-07] MEDS: SUCRALFATE 1 G/10 ML UDC GT SCH (08:52)
[2019-07-07] MEDS: PANTOPRAZOLE 40 MG VIAL IV SCH (08:52)
[2019-07-07] MEDS: LACTOBACILLUS RHAMNOSUS GG 1 EACH CAP.SPRINK GT SCH ×2 (08:53→16:41)
[2019-07-07] MEDS: HYDROCODONE/APAP 5/325MG 1 EACH TABLET GT SCH ×2 (08:53→20:17)
[2019-07-07] MEDS: METOPROLOL TARTRATE 50 MG TABLET GT SCH ×2 (08:54→20:21)
[2019-07-07] MEDS: CALCITRIOL 0.25 MCG CAPSULE GT SCH (08:56)
[2019-07-07] MEDS ORDERED: KETOCONAZOLE SHAMPOO 120 ML BOTTLE TP SCH ×2 (09:00)
[2019-07-07] MEDS: BETADINE 5% CREAM TP SCH (09:00)
[2019-07-07] MEDS: POVIDONE IODINE 5% TP SCH ×2 (09:00→21:42)
[2019-07-07] MEDS: PROSOURCE / PROSTAT (PYXIS) 30 ML UDC GT SCH ×2 (09:06→16:42)
[2019-07-07] MEDS: DAKINS QUARTER STRENGTH (0.125%) 480 ML BOTTLE TOP SCH ×3 (09:07→21:21)
[2019-07-07] MEDS: Z GUARD REMEDY 4 OZ OINT TP SCH ×2 (09:08→21:21)
[2019-07-07] MEDS: NYSTATIN CREAM 15 GM TUBE TP SCH ×2 (09:08→21:19)
[2019-07-07] MEDS: MUPIROCIN OINT 2% 22 GM TUBE SCH ×2 (09:09→21:20)
[2019-07-07] MEDS: TRIAMCINOLONE ACETONIDE 0.1% CR 15 GM TUBE TP SCH ×2 (09:09→21:19)
[2019-07-07] MEDS: CADEXOMER IODINE 40 GM TUBE TP SCH ×2 (09:09→21:20)
[2019-07-07] MEDS: CLOTRIMAZOLE 1% 15 GM TUBE TP SCH ×2 (09:10→17:49)
[2019-07-07] MEDS: HYDROGEN PEROXIDE 480 ML BOTTLE TP SCH ×2 (09:12→21:22)
[2019-07-07] MEDS: HYDROGEL DRESSING 90 GM TUBE TP SCH ×3 (09:13→21:22)
[2019-07-07] MEDS: AMMONIUM LACTATE 227 GM BOTTLE TP SCH ×2 (09:14→21:42)
[2019-07-07] MEDS: INSULIN GLARGINE, 100 UNIT/ML CARTRIDGE SQ SCH ×2 (09:25→21:41)
--- NOTE | 2019-07-07 10:23 | NUR ---
The patients , Janet [phone] SW to communicate that the pt. threw up and was left soiled for 35 + minutes. Per Janet, she asked the two different nursing staff to service the pt. but they allegedly disregarded her and asked that she wait. Janet expressed that she was concerned for the pt. and felt that the pt. was not serviced in a timely manner. SW validated Jay concerned and empowered Janet to ask to speak to charge nurse in the future so she can express her concern directly and have it addressed. Janet expressed understanding and was agreeable to plan. RADHA called and spoke to [facility] charge nurse, Gopal and relayed above stated information so that she is aware of situation.
--- NOTE | 2019-07-07 10:59 | NUR ---
WOUND CARE CONSULT: PT FOLLOWED BY SURGICAL TEAM FOR WOUND CARE. DEFER TO SURGICAL TEAM FOR WOUND TREATMENT PLAN. DISCUSSED SKIN PROTECTION WITH NURSING STAFF. FIRST STEP LOW AIRLOSS MATTRESS ORDERED. WILL SEE PRN. CURRENT PAULIE SCORE IS 11.
[2019-07-07] MEDS ORDERED: EPOETIN ALFA (10,000 UNIT) 10,000 UNIT/ML VIAL IV ONE (11:00)
--- NOTE | 2019-07-07 11:32 | NUR ---
CHOIR TEACHER NOTES PATIENT'S VS TAKEN PRIOR TO BLOOD TRANSFUSION. BP 98/47 HR 103 RR 18 TEMP 99.3 O2 SAT 100%. BLOOD TRANSFUSION STARTED AT 60ML/HR. WILL MONITOR PATIENT FOR ANY REACTIONS AND RECHECK VS AFTER 15 MIN.
--- NOTE | 2019-07-07 11:54 | NUR ---
SCRAP KETTLE TENDER NOTES PATIENT'S VS CHECKED AFTER 15MIN, VSS. NO RESPIRATORY DISTRESS NOTED. SKIN WARM TO TOUCH. BLOOD TRANSFUSION INCREASEDIN TO 100ML/HR, TOLERATING WELL. WILL CONTINUE TO MONITOR.
--- NOTE | 2019-07-07 14:07 | NUR ---
LARD REFINER NOTES NOTIFIED MD REGARDING PATIENT'S POTASSIUM LEVEL OF 3.1, NO ORDERS GIVEN.
--- NOTE | 2019-07-07 14:19 | NUR ---
VEGETABLE HARVEST WORKER NOTES SPOKE TO DIEGO REGARDING PATIENT'S SCHEDULED TIME FOR DIALYSIS, HE SAID THAT DIALYSIS WOULD NOT BE DONE TODAY DUE TO NO AVAILABLE STAFF. Addendum: 07/07/19 at 1423 by CARRILLO MALONEY RN WILL NOTIFY DR. MUNROE
--- NOTE | 2019-07-07 15:07 | NUR ---
SHELLACKER NOTES BLOOD TRANSFUSION DONE, TOLERATED WELL. PATIENT'S VS CHECKED, BP 122/68, HR 110, RR 18, TEMP 98.7, O2 SAT 99%. PATIENT IN NO ACUTE DISTRESS. WILL CONTINUE TO MONITOR.
[2019-07-07] MEDS: IV NS 0.9% 1,000 ML IV PRN (16:11)
--- NOTE | 2019-07-07 16:30 | NUR ---
ENVIRONMENTAL LAW PROFESSOR NOTES DR MUNROE AWARE THAT PATIENT WILL NOT HAVE DIALYSIS TODAY, NO ORDERS WERE GIVEN.
[2019-07-07] MEDS: ONDANSETRON HCL/PF 4 MG/2 ML VIAL IVP PRN (18:42)
--- NOTE | 2019-07-07 18:50 | NUR ---
MIDDLE SCHOOL FRENCH TEACHER NOTES PATIENT VOMITED X1, HOB UP, SUCTIONED PATIENT. HELD GT FEEDING. PATIENT GIVEN ZOFRAN IV. PATIENT IN NO RESPIRATORY DISTRESS. WILL ENDORSE TO ONCOMING NURSE.
--- NOTE | 2019-07-07 19:00 | NUR ---
THIRD OFFICER NOTES Received patient A/O x1, asleep on bed with LEANNE, easily awaken. No s/sx of pain at this time. With patent peripheral IV line ABDIEL PICC line with IVF on hold. With patent PEG with GTF on hold, patient noted with vomiting 1 hr ago. Family at bedside. Explained to the family theh POC, family verbalized understanding. Daughter signed the consent for HD. Patient is for HD tomorrow AM per HD RN. Kept on bed clean, dry and comfortable. On continuous pulse ox monitor, on vent, settings noted. Will continue to monitor accordingly.
[2019-07-07] MEDS ORDERED: VANCOMYCIN 500 MG in IV D5W 100 ML IV PRN (20:00)
[2019-07-07] MEDS ORDERED: FLUCONAZOLE (100 MG) 100 MG TABLET PO SCH (20:00)
--- NOTE | 2019-07-07 21:00 | NUR ---
THERMAL ENGINEER NOTES Checked residual - 0. Administered due meds as ordered, resumed GTF as ordered, abdomen soft, non-distended. Resumed IVF as ordered, no s/sx of infiltration noted. Family left the room at this time. Will continue to monitor the patient accordingly.
[2019-07-08] MEDS: BLOOD SUGAR DIAGNOSTIC 1 EACH STRIP IN SCH ×4 (00:12→18:02)
[2019-07-08] MEDS: POLYVINYL ALCOHOL 15 ML BOTTLE EACHEYE SCH ×4 (00:13→18:03)
[2019-07-08] MEDS: INSULIN ASPART/LISPRO 100 UNIT/ML CARTRIDGE SQ PRN ×2 (00:15→06:03)
[2019-07-08 00:31] VITALS: BP 108/67
[2019-07-08] MEDS: IV NS 0.9% 1,000 ML IV PRN ×2 (01:02→23:13)
[2019-07-08 04:00] VITALS: BP 107/52
[2019-07-08 04:05] VITALS: BP 107/52
[2019-07-08] MEDS: METOCLOPRAMIDE HCL 10 MG TABLET GT SCH ×3 (05:05→21:19)
[2019-07-08] MEDS: NEPRO 1,000 ML BOTTLE GT SCH (05:36)
--- NOTE | 2019-07-08 06:51 | NUR ---
LICENSED ESTHETICIAN NOTES Patient asleep, easily awaken, responsive to touch and pain. On vent with settings noted. No SOB/respiratory distress noted. With GTF tolerated well, off 0600. With patent peripheral IV line ABDIEL PICC line with NS infusing well @ 50ml/hr as ordered. Wound dressing done. BM noted x2. All nursing needs attended, due meds given as ordered. Kept on bed clean, dry and comfortable. Call light within easy reach. For HD this AM. Endorsed to the next shift. Addendum: 07/08/19 at 0655 by ANTONI HUNT RN On tele monitor with Sinus Tach noted.
--- NOTE | 2019-07-08 07:37 | NUR ---
RECYCLING SORTER NOTES PATIENT RESTING IN BED, HOB. VENT SETTINGS PRESCRIBED. PATIENT IN NO RESPIRATORY DISTRESS, NO S/S OF PAIN AT THIS TIME. PATIENT'S PICC LINE INTACT AND PATENT. GT FEEDING ON HOLD, WILL RESUME AT 1200. F/C INTACT. PATIENT'S NEEDS ATTENDED. BED ON LOWEST LOCKED POSITION, SIDE RAILS UP X3. WILL CONTINUE TO MONITOR.
[2019-07-08 07:46] LABS: CALCIUM, SERUM 9.6 mg/dL (8.5-10.1); CREATININE 4.1 mg/dL (0.6-1.3); POTASSIUM 3.7 mmol/L (3.5-5.1)
[2019-07-08 08:00] VITALS: BP 118/60
[2019-07-08] MEDS: INSULIN GLARGINE, 100 UNIT/ML CARTRIDGE SQ SCH ×2 (08:23→21:22)
[2019-07-08] MEDS: SUCRALFATE 1 G/10 ML UDC GT SCH (09:00)
[2019-07-08] MEDS: LACTOBACILLUS RHAMNOSUS GG 1 EACH CAP.SPRINK GT SCH ×2 (09:00→16:57)
[2019-07-08] MEDS: PANTOPRAZOLE 40 MG VIAL IV SCH (09:00)
[2019-07-08] MEDS: ZINC SULFATE 220 MG CAPSULE GT SCH (09:00)
[2019-07-08] MEDS: NEUTRA PHOS 1 POWD.PACKET GT SCH (09:00)
[2019-07-08] MEDS: ASCORBIC ACID 500 MG TABLET GT SCH (09:00)
[2019-07-08] MEDS: PROSOURCE / PROSTAT (PYXIS) 30 ML UDC GT SCH ×2 (09:00→16:57)
[2019-07-08] MEDS: POVIDONE IODINE 5% TP SCH ×2 (09:00→21:21)
[2019-07-08] MEDS: CALCITRIOL 0.25 MCG CAPSULE GT SCH (09:00)
[2019-07-08] MEDS: BETADINE 5% CREAM TP SCH (09:00)
[2019-07-08] MEDS: METOPROLOL TARTRATE 50 MG TABLET GT SCH ×2 (09:00→21:20)
[2019-07-08] MEDS: VIT B CMPLX 3/FA/VIT C/BIOTIN 1 TAB TABLET PO SCH (09:00)
[2019-07-08] MEDS: HYDROCODONE/APAP 5/325MG 1 EACH TABLET GT SCH ×2 (09:00→21:19)
--- NOTE | 2019-07-08 09:00 | NUR ---
MOWER MECHANIC NOTES PATIENT GETTING DIALYSIS BY [facility]. PATIENT IN NO ACUTE DISTRESS. WILL CONTINUE TO MONITOR.
[2019-07-08] MEDS: Z GUARD REMEDY 4 OZ OINT TP SCH ×2 (09:54→20:52)
[2019-07-08] MEDS: CADEXOMER IODINE 40 GM TUBE TP SCH ×2 (09:54→20:53)
[2019-07-08] MEDS: MUPIROCIN OINT 2% 22 GM TUBE SCH ×2 (09:55→20:51)
[2019-07-08] MEDS: NYSTATIN CREAM 15 GM TUBE TP SCH ×2 (09:55→20:52)
[2019-07-08] MEDS: TRIAMCINOLONE ACETONIDE 0.1% CR 15 GM TUBE TP SCH ×2 (09:55→20:51)
[2019-07-08] MEDS: DAKINS QUARTER STRENGTH (0.125%) 480 ML BOTTLE TOP SCH ×3 (09:55→20:54)
[2019-07-08] MEDS: HYDROGEL DRESSING 90 GM TUBE TP SCH ×3 (09:56→20:53)
[2019-07-08] MEDS: HYDROGEN PEROXIDE 480 ML BOTTLE TP SCH ×2 (09:57→20:54)
[2019-07-08] MEDS: CLOTRIMAZOLE 1% 15 GM TUBE TP SCH ×2 (09:59→18:03)
[2019-07-08] MEDS: AMMONIUM LACTATE 227 GM BOTTLE TP SCH ×2 (10:01→20:54)
[2019-07-08] MEDS: MEROPENEM 500 MG in IV NS 0.9% 50 ML IV SCH (10:04)
--- NOTE | 2019-07-08 12:50 | NUR ---
MACHINE ROUGH ROUNDER NOTES PATIENT'S BLOOD SUGAR 63, GAVE 240ML ORANGE JUICE. WILL CONTINUE TO MONITOR.
[2019-07-08 16:00] VITALS: BP 115/79
--- NOTE | 2019-07-08 17:20 | NUR ---
PROCESSING OPERATOR NOTES PATIENT'S BLOOD SUGAR AT 80, NO INSULIN GIVEN. PATIENT IN NO ACUTE DISTRESS. GT FEEDING INTACT AND RUNNING AT 55ML/HR.
[2019-07-08] MEDS ORDERED: AMIKACIN 400 MG in IV D5W 100 ML IV ONE (18:00)
[2019-07-08] MEDS ORDERED: AMIKACIN 350 MG in IV D5W 100 ML IV PRN (18:00)
[2019-07-08] MEDS ORDERED: DOSING PER PHARMACY-AMIKACI IV XX PRN (18:00)
[2019-07-08] MEDS ORDERED: FEE PK DOSING 1 MIN EA MC ONE (18:09)
--- NOTE | 2019-07-08 18:42 | NUR ---
FURNITURE FINISHER NOTES PATIENT AWAKE IN BED, FAMILY AT BEDSIDE. IN NO RESPIRATORY DISTRESS, VENT SETTINGS PRESCRIBED. PATIENT'S HOB ELEVATED. PATIENT IN NO S/S OF PAIN AT THIS TIME. IV AMIKIN INFUSING AT 204ML/HR. PATIENT'S NEEDS ATTENDED. BED ON LOWEST LOCKED POSITION, CALL LIGHT WITHIN REACH. WILL ENDORSE TO ONCOMING NURSE.
[2019-07-08] MEDS: MICAFUNGIN SODIUM 100 MG in IV NS 0.9% 100 ML IV SCH (19:07)
--- NOTE | 2019-07-08 19:15 | NUR ---
VALIDATION CONSULTANT OPENING NOTES Received patient asleep on bed, easily awaken, responsive to touch and pain. On Vent with setting noted, no SOB/respiratory distress noted. No s/s of discomfort noted. With GTF tolerating well, per family patient had x1 episode of vomiting during the heavy coughing of the patient. With patent ABDIEL PICC line with NS infusing well as ordered. Kept on bed with LEANNE on, on fall precautions, call light within reach. Will continue to monitor accordingly.
[2019-07-08 20:00] VITALS: BP 123/64
[2019-07-09] VITALS: BP_SYST 111; BP_DIAS 43; BP_DIAS 46
[2019-07-09] MEDS: BLOOD SUGAR DIAGNOSTIC 1 EACH STRIP IN SCH ×4 (00:07→18:04)
[2019-07-09] MEDS: POLYVINYL ALCOHOL 15 ML BOTTLE EACHEYE SCH ×4 (00:08→18:05)
[2019-07-09] MEDS: INSULIN ASPART/LISPRO 100 UNIT/ML CARTRIDGE SQ PRN ×3 (00:27→12:26)
[2019-07-09 04:00] VITALS: BP 119/51
[2019-07-09] MEDS: METOCLOPRAMIDE HCL 10 MG TABLET GT SCH ×3 (05:10→20:21)
[2019-07-09] MEDS: NEPRO 1,000 ML BOTTLE GT SCH (06:12)
--- NOTE | 2019-07-09 06:37 | NUR ---
RETAIL SALES ADVISOR CLOSING NOTES Patient asleep on bed, non-verbal, easily awaken, on Jean's position. Dependent on vent, settings noted, no SOB/respiratory distress noted at this time. With occasional productive cough noted, patient unable to expectorate suctioned PRN, with scant yellowish thick secretions noted. Saturation maintained 100%. Routinely checked by RT. On GTF with Nepro @ 55ml/hr as ordered, tolerated well, no vomiting noted, abdomen soft and non-distended. Kept HOB elevated at all times, on aspiration precautions. Routinely and PRN checked and and monitored. All nursing needs attended. All due meds given as ordered, no ASE noted. Kept on bed with LEANNE on, clean, dry and comfortable. On fall precautions. Endorsed to the next shift.
[2019-07-09 06:43] LABS: BASOPHILS # (AUTO) 0.1 /CMM (0.0-0.2); BASOPHILS % (AUTO) 0.6 % (0.0-2.0); EOSINOPHILS % (AUTO) 5.7 % (0.0-6.0); HEMATOCRIT 28 % (39-51); HEMOGLOBIN 8.6 g/dL (13.5-17.5); LYMPHOCYTES % (AUTO) 11.8 % (20.0-44.0); MEAN CORPUSCULAR HGB CONC 31 g/dl (31.0-36.0); MEAN CORPUSCULAR VOLUME 94 fL (80-96); MONOCYTES # (AUTO) 1.4 /CMM (0.1-1.30); MONOCYTES % (AUTO) 8.2 % (2.0-12.0); NEUTROPHILS # (AUTO) 12.5 /CMM (1.8-8.9); NEUTROPHILS % (AUTO) 73.7 % (43.0-81.0); PLATELET COUNT (AUTO) 535 /CMM (150-450); RED BLOOD CELL COUNT(AUTO) 2.93 MIL/uL (4.5-6.0); WHITE BLOOD COUNT (AUTO) 16.9 K/uL (4.3-11.0)
[2019-07-09 07:03] LABS: CALCIUM, SERUM 8.2 mg/dL (8.5-10.1); POTASSIUM 2.9 mmol/L (3.5-5.1)
--- NOTE | 2019-07-09 07:22 | NUR ---
TELE/RN NOTE THE PATIENT IS RECEIVED IN BED. PATIENT IS ON VENT, TACH AND TOLERATING IT WELL. PATIENT ALERT/ORIENTED X0 AND NON-VERBAL. EXTERNAL TELE BOX READING IS SINUS TACHYCARDIA 105. NO MANIFESTATION OF DISTRESS/ PAIN NOTED. PAPPAS CATH PRESENT AND NO OUTPUT NOTED. GT FEEDING NEPHRO INFUSING AT 55ML/HR. ABDOMEN SOFT AND NON-DISTENDED. BED LOW AND LOCKED. SIDE RAILS UP X3. CALL LIGHT WITHIN REACH. WILL CONTINUE TO MONITOR.
[2019-07-09 08:00] VITALS: BP 133/58
[2019-07-09 08:08] VITALS: BP 133/58
[2019-07-09] MEDS: VIT B CMPLX 3/FA/VIT C/BIOTIN 1 TAB TABLET PO SCH (08:38)
[2019-07-09] MEDS: PANTOPRAZOLE 40 MG VIAL IV SCH (08:38)
[2019-07-09] MEDS: ASCORBIC ACID 500 MG TABLET GT SCH (08:38)
[2019-07-09] MEDS: SUCRALFATE 1 G/10 ML UDC GT SCH (08:38)
[2019-07-09] MEDS: NEUTRA PHOS 1 POWD.PACKET GT SCH (08:38)
[2019-07-09] MEDS: ZINC SULFATE 220 MG CAPSULE GT SCH (08:38)
[2019-07-09] MEDS: LACTOBACILLUS RHAMNOSUS GG 1 EACH CAP.SPRINK GT SCH ×2 (08:38→17:49)
[2019-07-09] MEDS: METOPROLOL TARTRATE 50 MG TABLET GT SCH ×2 (08:39→20:20)
[2019-07-09] MEDS: HYDROCODONE/APAP 5/325MG 1 EACH TABLET GT SCH ×2 (08:47→20:21)
[2019-07-09] MEDS: DAKINS QUARTER STRENGTH (0.125%) 480 ML BOTTLE TOP SCH ×3 (08:51→20:23)
[2019-07-09] MEDS: HYDROGEL DRESSING 90 GM TUBE TP SCH ×3 (08:51→20:25)
[2019-07-09] MEDS: CADEXOMER IODINE 40 GM TUBE TP SCH ×2 (08:52→20:25)
[2019-07-09] MEDS: MUPIROCIN OINT 2% 22 GM TUBE SCH ×2 (08:54→20:22)
[2019-07-09] MEDS: NYSTATIN CREAM 15 GM TUBE TP SCH ×2 (08:54→20:22)
[2019-07-09] MEDS: TRIAMCINOLONE ACETONIDE 0.1% CR 15 GM TUBE TP SCH ×2 (08:54→20:24)
[2019-07-09] MEDS: CLOTRIMAZOLE 1% 15 GM TUBE TP SCH ×2 (08:55→17:00)
[2019-07-09] MEDS: HYDROGEN PEROXIDE 480 ML BOTTLE TP SCH ×2 (08:56→20:25)
[2019-07-09] MEDS: AMMONIUM LACTATE 227 GM BOTTLE TP SCH ×2 (08:58→20:23)
[2019-07-09] MEDS ORDERED: POTASSIUM CHLORIDE 20 MEQ TAB.PRT.SR PO ONE (09:00)
[2019-07-09] MEDS: CALCITRIOL 0.25 MCG CAPSULE GT SCH (09:28)
[2019-07-09] MEDS: PROSOURCE / PROSTAT (PYXIS) 30 ML UDC GT SCH ×2 (09:29→17:50)
[2019-07-09] MEDS: INSULIN GLARGINE, 100 UNIT/ML CARTRIDGE SQ SCH ×2 (09:40→20:35)
[2019-07-09] MEDS: Z GUARD REMEDY 4 OZ OINT TP SCH ×2 (09:43→21:37)
[2019-07-09] MEDS: POVIDONE IODINE 5% TP SCH (09:44)
[2019-07-09] MEDS: BETADINE 5% CREAM TP SCH (09:44)
[2019-07-09 09:49] LABS: BILIRUBIN,DIRECT 0.1 mg/dL (0.0-0.2); BILIRUBIN,TOTAL 0.2 mg/dL (0.2-1.0)
[2019-07-09] MEDS: IV NS 0.9% 1,000 ML IV PRN (12:39)
[2019-07-09 16:00] VITALS: BP 119/65
[2019-07-09] MEDS: MICAFUNGIN SODIUM 100 MG in IV NS 0.9% 100 ML IV SCH (17:50)
--- NOTE | 2019-07-09 18:14 | NUR ---
TELE/RN NOTE THE PATIENT IS IN BED AND SLEEPING. THE PATIENT IN NON-VERBAL, NOT ALERT OR ORIENTED. BIT OPENS EYES ON TACTILE STIMULI. PATIENT IS VENT, TRACH AND TOLERATES THE SETTING WELL. PATIENT HAS MINIMAL AMOUNT OF THINK, YELLOW COLOR SECRETIONS AND PRN SUCTIONING DONE. TRACH CARE IS PROVIDED. GT FEEDING NEPHRO IS INFUSING AT 55 ML/HR, NOTED 5 ML RESIDUAL. ABDOMEN SOFT AND NON-DISTENDED. HEAD OF THE BED ELEVATED TO PREVENT ASPIRATION. PAPPAS CATH PRESENT AND DRAINING SMALL AMOUNT OF YELLOW COLOR URINE WITH NO FOUL ODOR. WOUND TREATMENTS DONE PER ORDER. PATIENT IS TURNED AND REPOSITIONED. BED BATH GIVEN. BED LOW AND LOCKED. SIDE RAILS UP X3. CALL LIGHT WITHIN REACH. WILL ENDORSE TO ELECTRIC WHEELCHAIR REPAIRER.
--- NOTE | 2019-07-09 19:10 | NUR ---
DERMATOLOGY SALES REPRESENTATIVE OPENING NOTES RECEIVED PATIENT IN BED AWAKE AND ALERT TO TACTILE STIMULI, NON VERBAL. VENT DEPENDENT, TRACH IN PLACE ,INTACT, TRACH COLLAR INTACT, SPO2 WNL 100% , NO RESPIRATORY DISTRESS PRESENT, SUCTION EQUIPMENT IN PLACE, HEAD OF BED ELEVATED FOR ASPIRATION PRECAUTIONS, GTUBE IN PLACE, INTACT, NO RESIDUALS PRESENT, ON CARDIAC TELE MONITOR ST 108, PAPPAS CATHETER IN PLACE WITH PROPER ALIGNMENT, LEFT UPPER ARM PICC LINE INTACT, NO REDNESS, NO INFILTRATION PRESENT, DRESSING CHANGED WITH STERILE FIELD DUE TO DRESSING EDGES DISLODGING, FAMILY AT BED ORIENTED TO STAFF AND CALL LIGHT AND KEPT WITHIN REACH, REMAINS COMFORTABLE AT THIS TIME WILL CONTINUE TO MONITOR AND ATTEND TO NEEDS, REPOSITIONED FOR WOUND AND SKIN MANAGEMENT.
[2019-07-09 20:00] VITALS: BP_SYST 124; BP_SYST 128; BP_DIAS 56
[2019-07-10] VITALS: BP 120/42
[2019-07-10] MEDS: POLYVINYL ALCOHOL 15 ML BOTTLE EACHEYE SCH ×3 (00:18→12:18)
[2019-07-10] MEDS: BLOOD SUGAR DIAGNOSTIC 1 EACH STRIP IN SCH ×3 (00:18→12:09)
[2019-07-10] MEDS: INSULIN ASPART/LISPRO 100 UNIT/ML CARTRIDGE SQ PRN ×3 (00:19→12:11)
[2019-07-10 04:00] VITALS: BP 126/65
[2019-07-10] MEDS: NEPRO 1,000 ML BOTTLE GT SCH (05:05)
[2019-07-10] MEDS: METOCLOPRAMIDE HCL 10 MG TABLET GT SCH ×2 (05:06→12:19)
--- NOTE | 2019-07-10 05:40 | NUR ---
RT NOTES TRACH TUBE IN PLACE, PATENT, AND SECURED WITH TRACH TIE. ALARMS ON AND AUDIBLE. VENT PLUGGED IN TO THE RED OUTLET. BACK TRACH AND AMBU BAG BY THE BEDSIDE. NO SIGNS OF ANY DISTRESS AT THIS TIME. Addendum: 07/10/19 at 0540 by ONEL VEGA RT Amended: Links added.
--- NOTE | 2019-07-10 06:26 | NUR ---
PROFESSOR OF RADIOLOGY CLOSING NOTES PATIENT IN BED AWAKE AND ALERT TO TACTILE STIMULI, NON VERBAL. VENT DEPENDENT, TRACH IN PLACE ,INTACT, TRACH COLLAR INTACT, SPO2 WNL 100% , NO RESPIRATORY DISTRESS PRESENT, SUCTION EQUIPMENT IN PLACE, SUCTIONED PRN NOTED WHITE PALE SECRETIONS, HEAD OF BED ELEVATED FOR ASPIRATION PRECAUTIONS, GTUBE IN PLACE, INTACT, NO RESIDUALS PRESENT,TOLERATING WELL, ON CARDIAC TELE MONITOR ST 105, PAPPAS CATHETER IN PLACE WITH PROPER ALIGNMENT, 50 ML OUTPUT ANURIC LUC COLOR, LEFT UPPER ARM PICC LINE INTACT, NO REDNESS, NO INFILTRATION PRESENT, DRESSING REMAINS INTACT CLEAN AND DRY, CALL LIGHT KEPT WITHIN REACH, REMAINS COMFORTABLE AT THIS TIME WILL CONTINUE TO MONITOR AND ATTEND TO NEEDS, REPOSITIONED Q2HRS AND OFFLOADED AFFECTED SITES FOR WOUND AND SKIN MANAGEMENT. WOUND DRESSINGS CHANGED ORDERED, TOLERATED WOUND CARE WELL, ALL DUE MEDS GIVEN WITH NO ADVERSE REACTIONS PRESENT.
--- NOTE | 2019-07-10 07:15 | NUR ---
MS CASTAÑEDA OPENING NOTES RECEIVED PT IN BED, AWAKE, NONVERBAL AND BLE AMPUTEE. PT TOLERATING CURRENT VENT SETTING, WITH NO ACUTE RESPIRATORY DISTRESS. PT EXHIBITS NO PAIN OR DISCOMFORT. IVF NS AT 50ML/HR TO ABDIEL PICC LINE, INTACT AND FLUID INFUSING WELL. RIGHT SUBCLAVIAN HD CATH PRESENT. ON GOING GT FEEDING NEPHRO AT 55ML/HR, GT ASPIRATED, NO RESIDUAL PRESENT. FC IN PLACE WITH YELLOW URINE IN THE BAG. HOB KEPT ELEVATED. PT KEPT COMFORTABLE. CALL LIGHT KEPT WITHIN REACH. BED IN LOWEST, LOCKED POSITION WITH SR X3. WILL CONTINUE PLAN OF CARE. Addendum: 07/10/19 at 0745 by JERI MCDANIEL RN INCOMPLETE DOCUMENTATION
--- NOTE | 2019-07-10 07:17 | NUR ---
SENIOR ELECTRICAL ESTIMATOR OPENING NOTES RECEIVED PT IN BED, AWAKE, NONVERBAL AND BLE AMPUTEE. PT TOLERATING CURRENT VENT SETTING, WITH NO ACUTE RESPIRATORY DISTRESS. ON TELEMONITORING WITH SR 97. PT EXHIBITS NO PAIN OR DISCOMFORT. IVF NS AT 50ML/HR TO ABDEIL PICC LINE, INTACT AND FLUID INFUSING WELL. RIGHT SUBCLAVIAN HD CATH PRESENT. ON GOING GT FEEDING NEPHRO AT 55ML/HR, GT ASPIRATED, NO RESIDUAL PRESENT. FC IN PLACE WITH YELLOW URINE IN THE BAG. HOB KEPT ELEVATED. PT KEPT COMFORTABLE. CALL LIGHT KEPT WITHIN REACH. BED IN LOWEST, LOCKED POSITION WITH SR X3. WILL CONTINUE PLAN OF CARE.
[2019-07-10 08:00] VITALS: BP 139/69
[2019-07-10] MEDS: SUCRALFATE 1 G/10 ML UDC GT SCH (09:12)
[2019-07-10] MEDS: ASCORBIC ACID 500 MG TABLET GT SCH (09:12)
[2019-07-10] MEDS: PANTOPRAZOLE 40 MG VIAL IV SCH (09:12)
[2019-07-10] MEDS: VIT B CMPLX 3/FA/VIT C/BIOTIN 1 TAB TABLET PO SCH (09:12)
[2019-07-10] MEDS: ZINC SULFATE 220 MG CAPSULE GT SCH (09:12)
[2019-07-10] MEDS: LACTOBACILLUS RHAMNOSUS GG 1 EACH CAP.SPRINK GT SCH (09:13)
[2019-07-10] MEDS: NEUTRA PHOS 1 POWD.PACKET GT SCH (09:13)
[2019-07-10] MEDS: HYDROCODONE/APAP 5/325MG 1 EACH TABLET GT SCH (09:13)
[2019-07-10 09:14] VITALS: BP 139/69
[2019-07-10] MEDS: HYDROGEN PEROXIDE 480 ML BOTTLE TP SCH (09:14)
[2019-07-10] MEDS: METOPROLOL TARTRATE 50 MG TABLET GT SCH (09:14)
[2019-07-10] MEDS: CALCITRIOL 0.25 MCG CAPSULE GT SCH (09:15)
[2019-07-10] MEDS: PROSOURCE / PROSTAT (PYXIS) 30 ML UDC GT SCH (09:15)
[2019-07-10] MEDS: INSULIN GLARGINE, 100 UNIT/ML CARTRIDGE SQ SCH (09:16)
[2019-07-10] MEDS: DAKINS QUARTER STRENGTH (0.125%) 480 ML BOTTLE TOP SCH ×2 (09:34→09:35)
[2019-07-10] MEDS: AMMONIUM LACTATE 227 GM BOTTLE TP SCH (09:35)
[2019-07-10] MEDS: CLOTRIMAZOLE 1% 15 GM TUBE TP SCH (09:36)
[2019-07-10] MEDS: TRIAMCINOLONE ACETONIDE 0.1% CR 15 GM TUBE TP SCH (09:36)
[2019-07-10] MEDS: MUPIROCIN OINT 2% 22 GM TUBE SCH (09:36)
[2019-07-10] MEDS: CADEXOMER IODINE 40 GM TUBE TP SCH (09:36)
[2019-07-10] MEDS: NYSTATIN CREAM 15 GM TUBE TP SCH (09:36)
[2019-07-10] MEDS: HYDROGEL DRESSING 90 GM TUBE TP SCH ×2 (09:37)
[2019-07-10] MEDS: Z GUARD REMEDY 2 OZ OINT TP PRN (09:38)
[2019-07-10] MEDS: Z GUARD REMEDY 4 OZ OINT TP SCH (09:40)
[2019-07-10] MEDS: BETADINE 5% CREAM TP SCH (11:30)
[2019-07-10 12:13] LABS: CALCIUM, SERUM 8.4 mg/dL (8.5-10.1); CREATININE 3.9 mg/dL (0.6-1.3)
--- NOTE | 2019-07-10 12:30 | NUR ---
RT PT TRANSFERRED TO SUB ACUTE UNIT. NO SOB NOTED AT THIS TIME. RN AND RT AT BEDSIDE DURING TRANSFER.
--- NOTE | 2019-07-10 12:31 | NUR ---
DATA EXAMINATION CLERKSTONE DERRICKMAN AND RIGGER NOTES PT TO DISCHARGE BACK TO [facility] SUBACUTE UNIT. PT TRANSFERRED VIA BED WITH RT AND RN PRESENT. PT HAS NO RESPIRATORY DISTRESS DURING TRANSFER. PT NOT EXHIBITING ANY PAIN AT THE TIME. PICTURES TAKEN TO ALL SKIN ISSUES, FILED IN THE CHART; WOUND TREATMENT PROVIDED ORDERED. DAUGHTER AWARE OF TRANSFER BACK TO SUBACUTE UNIT AND REMOVAL OF PAPPAS CATH, WITH YELLOW URINE IN THE BAG OUTPUT OF 100ML. GT FLUSHED, WITH NO RESIDUALS PRESENT. PICC LINE TO ABDIEL, INTACT AND OPERATIONAL. DISCHARGE SUMMARY AND INVENTORY LIST SIGNED BY 2RNS. ALL BELONGINGS WITH THE PT. ALL NEEDS AND CARE PROVIDED. PT LEFT THE UNIT AT 1230. WALDEMAR/ELISABETH AND MD/ED AWARE OF TRANSFER/DISCHARGE. REPORT GIVEN TO WALDEMAR/DAVIS AT SUBACUTE.
[2019-07-10] MEDS ORDERED: INSU100V7 SQ (15:23)
[2019-07-10] MEDS ORDERED: CLOT15CR63 TP (15:23)
[2019-07-10] MEDS ORDERED: PANT40VI IV (15:23)
[2019-07-10] MEDS ORDERED: AMIK250V8 IV (15:23)
[2019-07-10] MEDS ORDERED: MAG30ORA GT (15:23)
[2019-07-10] MEDS ORDERED: ONDA4VIA52 IVP (15:23)
[2019-07-10] MEDS ORDERED: MICA100V IV (15:23)
[2019-07-10] MEDS ORDERED: HYDR-4384 GT (15:23)
[2019-07-10] MEDS ORDERED: MAGN400O6 GT (15:23)
[2019-07-10] MEDS ORDERED: MUPI22OI7 BNOSTRILS (15:23)
[2019-07-10] MEDS ORDERED: VANC500V3 IV (15:23)
== END 2019-07-10 12:30 | DRG 710 ==
LOC: ER 16:35 → TELE 20:31
PROVIDERS: ADMIT Student in an Organized Health Care Education/Training Program; ATTEND Internal Medicine
DX: A41.9 Sepsis, unspecified organism (principal); R65.21 Severe sepsis with septic shock; G93.1 Anoxic brain damage, not elsewhere classified; Z99.11 Dependence on respirator [ventilator] status; J96.11 Chronic respiratory failure with hypoxia; L89.154 Pressure ulcer of sacral region, stage 4; E44.0 Moderate protein-calorie malnutrition; L89.324 Pressure ulcer of left buttock, stage 4; E11.22 Type 2 diabetes mellitus with diabetic chronic kidney disease; L89.314 Pressure ulcer of right buttock, stage 4; L89.223 Pressure ulcer of left hip, stage 3; E11.52 Type 2 diabetes mellitus with diabetic peripheral angiopathy with gangrene; E87.1 Hypo-osmolality and hyponatremia; I12.0 Hypertensive chronic kidney disease with stage 5 chronic kidney disease or end stage renal disease; N18.6 End stage renal disease; N39.0 Urinary tract infection, site not specified; E11.621 Type 2 diabetes mellitus with foot ulcer; Z99.2 Dependence on renal dialysis; R13.10 Dysphagia, unspecified; I25.10 Atherosclerotic heart disease of native coronary artery without angina pectoris; L30.4 Erythema intertrigo; L97.529 Non-pressure chronic ulcer of other part of left foot with unspecified severity; K21.9 Gastro-esophageal reflux disease without esophagitis; F09 Unspecified mental disorder due to known physiological condition; E87.6 Hypokalemia; D63.8 Anemia in other chronic diseases classified elsewhere; Z86.73 Personal history of transient ischemic attack (TIA), and cerebral infarction without residual deficits; Z79.4 Long term (current) use of insulin; Z93.1 Gastrostomy status; Z89.611 Acquired absence of right leg above knee; Z74.01 Bed confinement status; Z93.0 Tracheostomy status; Z79.899 Other long term (current) drug therapy; Z79.51 Long term (current) use of inhaled steroids; Z74.09 Other reduced mobility; B37.49 Other urogenital candidiasis
CPT/HCPCS: 31720; 36415; 71045-TC; 80048-TC; 80061-TC; 80150; 80202-TC; 81000-TC; 82040-TC; 82247-TC; 82248-TC; 82728-TC; 82962-TC; 83540-TC; 83605-TC; 83735-TC; 84100-TC; 85025-TC; 86706; 86850-TC; 86921-TC; 87040-TC; 87070-TC; 87081-TC; 87086-TC; 87186-TC; 87340; 90935-TC; 94003-TC; 94760-TC; 94762-TC; 94799-TC; 99082-TC; A4216; A4623; A6248; A6253; A6403; A7526; C9113; G0378; J0278; J0696; J0885; J1815; J2185; J2248; J2405; J3370; J7030; J7040; J7050; J7060; J8597; P9016-BL; Q0162

== ENCOUNTER 2019-07-21 08:16 | Inpatient (IN) | payer OTHER ==
[~2019-07-21] VITALS: Ht 104.9 cm; Wt 49.9 kg
[2019-07-21] VITALS (13 sets, daily range): BP systolic 116–160; BP diastolic 46–69
[~2019-07-21 08:16] MED LIST changes: +ALBU1.257 IH; +ALLA266C2 TP; +AMIK250V8 IV; -ASCO500T9 GT; +CADE40GE2 TP; -CEFE1FRO IV; +CLOT15CR63 TP; -DEXT15DR6 EACHEYE; +GEL100GE TP; +HYDR1SOL TP; -INSU100C4 SQ; -INSU100I26 SQ; +INSU100V11 SQ; +INSU100V7 SQ; -IPRA3AMP23 IH; +KETO120S6 TP; +MAG30ORA GT; -MAGN2400 GT; +MAGN400O6 GT; +MEPILEX TP; +MICA100V IV; +MUPI22OI7 BNOSTRILS; +NYST15CR TP; +ONDA4TAB10 GT; -ONDA4TAB11 PO; +ONDA4VIA52 IVP; +PANT40VI IV; +POLY15DR40 EACHEYE; +SIME80TA15 GT; +SODI473S8 TOP; +TRIA80CR12 TP; +VANC500V3 IV; -VIT1TABL44 GT; +VIT500LI GT
[2019-07-21] MEDS ORDERED: MIDAZOLAM HCL 2 MG/2ML VIAL ONE (10:00)
[2019-07-21] MEDS ORDERED: VITA1TAB20 PO (14:08)
[2019-07-21] MEDS ORDERED: ACET-73 PO (14:08)
[2019-07-21] MEDS ORDERED: BISACODYL SUPP (10 MG) 10 MG/SUPP.RECT SUPP.RECT RC PRN (15:00)
[2019-07-21] MEDS ORDERED: NEPRO VAN 237 ML CAN GT SCH (15:00)
[2019-07-21] MEDS ORDERED: DEXTROSE 50%-WATER 50 ML DISP.SYRIN IV PRN ×2 (15:00→18:00)
[2019-07-21] MEDS ORDERED: ALBUTEROL HALF STRENGTH 1.25 MG/3 ML VIAL.NEB IH PRN (15:00)
[2019-07-21] MEDS ORDERED: MORPHINE SULFATE INJ 2 MG/ML DISP.SYRIN IV PRN (15:00)
[2019-07-21] MEDS ORDERED: MAG HYDROX/AL HYDROX/SIMETH 30 ML UDC GT PRN (15:00)
[2019-07-21] MEDS ORDERED: SIMETHICONE 80 MG TAB.CHEW GT PRN (15:00)
[2019-07-21] MEDS ORDERED: ACETAMINOPHEN 325 MG TABLET PO PRN (15:00)
[2019-07-21] MEDS ORDERED: CLONIDINE HCL 0.1 MG TABLET GT PRN (15:00)
[2019-07-21] MEDS ORDERED: ONDANSETRON HCL/PF 4 MG/2 ML VIAL IVP PRN (15:00)
[2019-07-21] MEDS ORDERED: MAGNESIUM HYDROXIDE 30 ML UDC GT PRN (15:00)
[2019-07-21] MEDS ORDERED: POLYVINYL ALCOHOL 15 ML BOTTLE EACHEYE PRN (15:00)
[2019-07-21] MEDS ORDERED: NA PHOS,M-B/NA PHOS,DI-BA 1 EA ENEMA RC PRN (15:00)
[2019-07-21] MEDS: IV NS 0.9% 1,000 ML IV PRN (15:34)
--- NOTE | 2019-07-21 15:40 | NUR ---
APARTMENT LEASING AGENT ADMITTING NOTES: PATIENT ADMITTED TO THE UNIT AT 1330 FROM SURGERY TO SUB ACUTE S/P LEFT AKA. PATIENT OPENS EYES, RESPONSIVE TO TACTILE STIMULI. PATIENT IS VENT DEPENDENT AT PRESCRIBED PARAMETERS, TOLERATING SETTINGS WELL WITH NO ACUTE RESPIRATORY DISTRESS NOTED, SPO2 AT 100%. PATIENT PLACED ON TELE MONITORING WITH READING OF SINUS TACHY WITH HR AT 95-110. HEAD OF THE BED ELEVATED. SUCTIONED NEEDED. VITAL SIGNS WNL. G-TUBE IN PLACED INTACT AND PATENT. ASPIRATION PRECAUTIONS M,AINTAINEDBOWEL SOUNDS PRESENT UPON AUSCULTATION. DOUBLE LUMEN PICC LINE IN PLACED TO LEFT UPPER ARM FLUSHES WELL. PERMA CATH ON LEFT UPPER CHEST WALL IN PLACED WITH DRESSING CDI. PHOTOS OF SKIN ISSUES TAKEN AND FILED ON PATIENT'S CHART. DRESSING ON LEFT AKA CDI WITH EUSEBIO DRAIN IS IN PLACED AND NOTED WITH SMALL AMOUNT SEROSANGUINEOUS DRAINAGE. SKIN IS DRY AND WARM TO TOUCH. SAFETY MEASURES INITIATED. BED IS IN LOW, LOCKED POSITION WITH SIDE-RAILS UP X2. CALL LIGHT WITHIN REACH. WILL CONTINUE TO MONITOR ACCORDINGLY.
[2019-07-21] MEDS: NEPRO 1,000 ML BOTTLE GT PRN (16:37)
[2019-07-21] MEDS ORDERED: CLOTRIMAZOLE 1% CREAM 24 GM TUBE TP SCH (17:00)
[2019-07-21] MEDS: PROSOURCE / PROSTAT (PYXIS) 30 ML UDC GT SCH (17:31)
[2019-07-21] MEDS: LACTOBACILLUS RHAMNOSUS GG 1 EACH CAP.SPRINK GT SCH (17:31)
[2019-07-21] MEDS: BLOOD SUGAR DIAGNOSTIC 1 EACH STRIP IN SCH ×2 (17:59→23:47)
[2019-07-21] MEDS ORDERED: BLOOD SUGAR DIAGNOSTIC 1 EACH STRIP IN SCH (18:00)
[2019-07-21] MEDS: INSULIN REGULAR, HUMAN 100 UNIT/ML 3 ML VIAL SQ PRN ×2 (18:03→23:47)
--- NOTE | 2019-07-21 19:02 | NUR ---
CONSTRUCTION TRADES TEACHER CLOSING NOTES: PATIENT IN BED LYING AT MODERATE HIGH BACKREST POSITION. OPEN EYES AND RESPONSIVE TO TACTILE STIMULI. MAINTAINED ON MECH VENT @ PRESCRIBED PARAMETERS, TOLERATING SETTINGS WELL WITH NO ACUTE RESPIRATORY DISTRESS NOTED, SPO2 AT 100%. TELE MONITORING SHOWS SINUS TACHY WITH HR AT 95-120. SUCTIONED NEEDED. DOUBLE LUMEN PICC LINE IN PLACED TO LEFT UPPER ARM FLUSHES WELL. PERMA CATH ON LEFT UPPER CHEST WALL IN PLACED WITH DRESSING C/D/I.G-TUBE IN PLACED INTACT AND PATENT WITH FEEDING OF NEPRO @ 55ML/HR IN PROGRESS TOLERATING WELL. ASPIRATION PRECAUTIONS MAINTAINED. DRESSING ON LEFT AKA WITH MIRELLA WRAP C/D/I AND FREDI DRAIN IN PLACE AND NOTED WITH SMALL AMOUNT SEROSANGUINEOUS DRAINAGE (15ML THIS SHIFT). SKIN IS DRY AND WARM TO TOUCH. PT TURNED AND REPOSITIONED Q 2HRS AND PRN. ALL NEEDS AND CARE PROVIDED WELL. SAFETY MEASURES KEPT IN PLACE. BED IS IN LOW, LOCKED POSITION WITH SIDE-RAILS UP X2. CALL LIGHT WITHIN REACH. WILL ENDORSE TO PROGRAM HOST NURSE FOR MARKELL
--- NOTE | 2019-07-21 19:25 | NUR ---
RN OPENING NOTES 1924 RECEIVED PATIENT FROM GARRY TRAN, AT BED SIDE. PATIENT FOUND WITH VOMIT DURING BED SIDE REPORT. GARRY TRAN, CLEANED PATIENT. FEEDING TURNED OFF AT THIS TIME, WILL RESUME LATER. FREDI DRAIN NOTED. PATIENT ON ISOLATION. PPE UTILIZED. PATIENT IS MECHANICAL VENT TRACH DEPENDENT, AMBUBAG AT BED SIDE, CLINICAL ALARMS CHECKED AND AUDIBLE. PATIENT OPENS EYES SPONTANEOUSLY. PATIENT HAS GTUBE IN PLACE. LEFT UPPER ARM PICC LINE. BLE AND BUE OFFLOADED ON PILLOWS. ON TELE MONITORING ST. SAFETY PRECAUTIONS FOR FALLS IMPLEMENTED; CALL LIGHT WITHIN REACH, BED LOWEST POSITION, BED LOCKED, SIDE RAILS UP X2. BED ALARM ON. WILL CONTINUE TO MONITOR.
--- NOTE | 2019-07-21 20:35 | NUR ---
RCVD PT TRACH SHILEY 8 ON VENT WITH NOTED SETTINGS. PT IS OBTUNDED. SX DONE PRN. VENT PLUGGED INTO RED OUTLET, VENT ALARMS SET AND AUDIBLE. TRACH PATENT AND SECURED. BIT SETTER DONE, NO RESPIRATORY DISTRESS NOTED AT THIS TIME. WILL CONTINUE TO MONITOR.
[2019-07-21] MEDS ORDERED: AMMONIUM LACTATE 227 GM BOTTLE TP SCH (21:00)
[2019-07-21] MEDS ORDERED: DAKINS QUARTER STRENGTH (0.125%) 480 ML BOTTLE TOP SCH (21:00)
[2019-07-21] MEDS ORDERED: CADEXOMER IODINE 40 GM TUBE TP SCH (21:00)
[2019-07-21] MEDS ORDERED: TRIAMCINOLONE ACETONIDE 0.1% CR 15 GM TUBE TP SCH (21:00)
[2019-07-21] MEDS: METOCLOPRAMIDE HCL 10 MG TABLET GT SCH (22:39)
[2019-07-21] MEDS: METOPROLOL TARTRATE 25 MG TABLET PO SCH (22:39)
[2019-07-21] MEDS: DAKINS HALF STRENGTH (0.25%) 480 ML BOTTLE TOP SCH (22:46)
[2019-07-21] MEDS: CADEXOMER IODINE 40 GM TUBE TP SCH ×2 (22:48)
[2019-07-21] MEDS: AMMONIUM LACTATE 227 GM BOTTLE TP SCH (22:49)
[2019-07-21] MEDS: Z GUARD REMEDY 2 OZ OINT TP SCH (22:49)
[2019-07-21] MEDS: MUPIROCIN OINT 2% 22 GM TUBE TP SCH (22:50)
[2019-07-22] VITALS: BP 117/54
[2019-07-22 04:00] VITALS: BP 124/51
[2019-07-22] MEDS: IV NS 0.9% 1,000 ML IV PRN (05:19)
[2019-07-22] MEDS: METOCLOPRAMIDE HCL 10 MG TABLET GT SCH ×2 (05:30→12:34)
--- NOTE | 2019-07-22 05:30 | NUR ---
RN NOTES 0530 ASSISTED PITA DAWN, IN PROVIDING BED BATH TO PT, ALL LINENS COMPLETELY CHANGED, WOUND CARE PERFORMED ORDERED.
[2019-07-22] MEDS: BLOOD SUGAR DIAGNOSTIC 1 EACH STRIP IN SCH ×3 (05:53→17:38)
[2019-07-22] MEDS: INSULIN REGULAR, HUMAN 100 UNIT/ML 3 ML VIAL SQ PRN ×3 (05:55→17:53)
--- NOTE | 2019-07-22 06:17 | NUR ---
RN CLOSING NOTES PATIENT IN BED, TOLERATED VENT SETTINGS WELL. CLINICAL ALARMS REMAINS AUDIBLE. GTUBE FEEDING REMAINS INFUSING WITH NEPRO AT 55 ML/HR. LEFT UPPER ARM PICC LINE REMAINS PATENT AND FLUSHING WELL, IVF RUNNING. VS REMAINS STABLE, PATIENT AFEBRILE. NEEDS ATTENDED TO. PPE UTILIZED FOR ISOLATION. PATIENT TURNED EVERY 2 HOURS. FREDI DRAIN 15 CC OUTPUT AT THIS TIME, SEROSANGUINOUS. PATIENT KEPT CLEAN, DRY AND COMFORTABLE. SAFETY PRECAUTIONS FOR FALLS IMPLEMENTED; CALL LIGHT WITHIN REACH, BED LOWEST POSITION, BED LOCKED, SIDE RAILS UP X2. BED LOCKED. WILL ENDORSE TO DAYSHIFT NURSE FOR CONTINUITY OF CARE.
[2019-07-22 07:22] LABS: CALCIUM, SERUM 9.3 mg/dL (8.5-10.1); CREATININE 3.3 mg/dL (0.6-1.3); MAGNESIUM 2.3 mg/dL (1.8-2.4); PHOSPHORUS 1.8 mg/dL (2.5-4.9)
[2019-07-22 07:26] LABS: BASOPHILS # (AUTO) 0.1 /CMM (0.0-0.2); BASOPHILS % (AUTO) 0.5 % (0.0-2.0); EOSINOPHILS % (AUTO) 1.9 % (0.0-6.0); HEMATOCRIT 30 % (39-51); HEMOGLOBIN 9.3 g/dL (13.5-17.5); LYMPHOCYTES # (AUTO) 2.1 /CMM (0.8-4.8); LYMPHOCYTES % (AUTO) 10.8 % (20.0-44.0); MEAN CORPUSCULAR HGB CONC 31 g/dl (31.0-36.0); MEAN CORPUSCULAR VOLUME 93 fL (80-96); MONOCYTES # (AUTO) 1.2 /CMM (0.1-1.30); MONOCYTES % (AUTO) 6.3 % (2.0-12.0); NEUTROPHILS # (AUTO) 15.4 /CMM (1.8-8.9); NEUTROPHILS % (AUTO) 80.5 % (43.0-81.0); PLATELET COUNT (AUTO) 481 /CMM (150-450); RED BLOOD CELL COUNT(AUTO) 3.23 MIL/uL (4.5-6.0); WHITE BLOOD COUNT (AUTO) 19.1 K/uL (4.3-11.0)
--- NOTE | 2019-07-22 07:35 | NUR ---
DAIRY MACHINE OPERATOR FARMWORKER OPENING NOTES Patient received on ventilator, no sob noted. Patient opens eyes, NEPRO @ 55 ml per hour running at this time. PICC Line ABDIEL remains patent with perma cath. Bed at the lowest setting, call light within reach, side rail up x2.
[2019-07-22 07:39] LABS: THYROID STIMULATING HORMONE 2.274 uIU/mL (0.358-3.74)
[2019-07-22 07:43] LABS: POTASSIUM 2.7 mmol/L (3.5-5.1)
[2019-07-22 08:00] VITALS: BP 147/67
[2019-07-22 08:28] VITALS: BP 147/67
[2019-07-22] MEDS: METOPROLOL TARTRATE 25 MG TABLET PO SCH (08:28)
[2019-07-22] MEDS: AMMONIUM LACTATE 227 GM BOTTLE TP SCH (08:28)
[2019-07-22] MEDS: LACTOBACILLUS RHAMNOSUS GG 1 EACH CAP.SPRINK GT SCH ×2 (08:28→17:37)
[2019-07-22] MEDS: MUPIROCIN OINT 2% 22 GM TUBE TP SCH (08:29)
[2019-07-22] MEDS: Z GUARD REMEDY 2 OZ OINT TP SCH (08:29)
[2019-07-22] MEDS: CADEXOMER IODINE 40 GM TUBE TP SCH ×2 (08:29)
[2019-07-22] MEDS: DAKINS HALF STRENGTH (0.25%) 480 ML BOTTLE TOP SCH (08:29)
[2019-07-22] MEDS: PROSOURCE / PROSTAT (PYXIS) 30 ML UDC GT SCH ×2 (08:39→17:00)
[2019-07-22] MEDS ORDERED: POTASSIUM CHLORIDE 20 MEQ TAB.PRT.SR PO ONE (09:00)
[2019-07-22] MEDS ORDERED: ZINC SULFATE 220 MG CAPSULE PO SCH (09:00)
[2019-07-22] MEDS ORDERED: DAKINS QUARTER STRENGTH (0.125%) 480 ML BOTTLE TOP SCH (09:00)
[2019-07-22] MEDS ORDERED: HYDROGEL DRESSING 90 GM TUBE TP SCH (09:00)
[2019-07-22] MEDS ORDERED: SUCRALFATE 1 G/10 ML UDC GT SCH (09:00)
[2019-07-22] MEDS: POTASSIUM CL. PREMIX PERIPHER. 50 ML IV SCH ×2 (09:23→10:29)
[2019-07-22] MEDS: CLOTRIMAZOLE 1% 15 GM TUBE TP SCH ×2 (09:37→17:35)
--- NOTE | 2019-07-22 16:04 | NUR ---
RN NOTES Dr Olivarez aware of the low phosporous level. Pharmacy contacted as well.
--- NOTE | 2019-07-22 16:28 | NUR ---
RN NOTES Report given to Bhavna Rene at sub acute.
[2019-07-22] MEDS: NEPRO 1,000 ML BOTTLE GT PRN (16:48)
--- NOTE | 2019-07-22 18:39 | NUR ---
Patient discharged to the sub acute unit. IV remains with patient, hull remains with patient, and feeding with g tube remains with the patient. Paperwork done and signed with 2 nurses. Photos taken and is in the chart. All medications given.
== END 2019-07-22 18:35 | DRG 305 ==
LOC: DS 08:16 → MED 12:30 → TELE 18:22
PROC: 02HV33Z Insertion of Infusion Device into Superior Vena Cava, Percutaneous Approach (ICD-10-PCS; principal; 2019-07-21)
PROC: 0Y6D0Z3 Detachment at Left Upper Leg, Low, Open Approach (ICD-10-PCS; principal; 2019-07-21)
PROC: B548ZZA Ultrasonography of Superior Vena Cava, Guidance (ICD-10-PCS; principal; 2019-07-21)
PROC: 5A1935Z Respiratory Ventilation, Less than 24 Consecutive Hours (ICD-10-PCS; principal; 2019-07-21)
PROC: 5A1D70Z Performance of Urinary Filtration, Intermittent, Less than 6 Hours Per Day (ICD-10-PCS; 2019-07-22)
DX: E11.52 Type 2 diabetes mellitus with diabetic peripheral angiopathy with gangrene (principal); G93.1 Anoxic brain damage, not elsewhere classified; Z99.11 Dependence on respirator [ventilator] status; J96.11 Chronic respiratory failure with hypoxia; L89.154 Pressure ulcer of sacral region, stage 4; E44.0 Moderate protein-calorie malnutrition; L89.223 Pressure ulcer of left hip, stage 3; E11.22 Type 2 diabetes mellitus with diabetic chronic kidney disease; L89.324 Pressure ulcer of left buttock, stage 4; L89.314 Pressure ulcer of right buttock, stage 4; I12.0 Hypertensive chronic kidney disease with stage 5 chronic kidney disease or end stage renal disease; E87.1 Hypo-osmolality and hyponatremia; N18.6 End stage renal disease; Z99.2 Dependence on renal dialysis; Z79.899 Other long term (current) drug therapy; Z79.4 Long term (current) use of insulin; Z79.51 Long term (current) use of inhaled steroids; L30.4 Erythema intertrigo; F09 Unspecified mental disorder due to known physiological condition; D63.8 Anemia in other chronic diseases classified elsewhere; E87.6 Hypokalemia; R13.10 Dysphagia, unspecified; Z89.611 Acquired absence of right leg above knee; Z93.1 Gastrostomy status; Z93.0 Tracheostomy status; M62.422 Contracture of muscle, left upper arm; M62.421 Contracture of muscle, right upper arm
CPT/HCPCS: 31720; 36415; 80048-TC; 80061-TC; 82962-TC; 83735-TC; 84100-TC; 84443-TC; 85025-TC; 87081-TC; 94002-TC; 94003-TC; 94760-TC; A4623; A6248; G0378; J1815; J2250; J3480; J7030; J8597

== ENCOUNTER 2019-08-05 13:24 | Inpatient (IN) | payer OTHER ==
[~2019-08-05] VITALS: Ht 121.9 cm; Wt 49.9 kg
[2019-08-05] VITALS (19 sets, daily range): BP systolic 77–107; BP diastolic 36–69
[~2019-08-05 13:24] MED LIST changes: +ACET-73 PO; -AMIK250V8 IV; -CALC0.253 GT; -FOLI0.8T2 GT; -HYDR-4384 GT; -INSU100V7 SQ; -KETO120S6 TP; -MEPILEX TP; -MICA100V IV; -NYST15CR TP; -ONDA4TAB10 GT; -ONDA4VIA52 IVP; -PANT40VI IV; -SUCR1ORA GT; +SUCR1ORA15 GT; -VANC500V3 IV; +VITA1TAB20 PO
--- NOTE | 2019-08-05 13:57 | NUR ---
PT BROUGHT DOWN FROM SUB ACUTE FLOOR FOR FEVER (101.5-RECTAL) AND ST-133 PT ON VENT WITH TRACH BELOW THE KNEE AMPUTATION X 2 WILL CONTINUE TO MONITOR
--- NOTE | 2019-08-05 14:10 | NUR ---
PT HAS HD CATH IN [facility] LAST DIALYSIS THURSDAY PT ALSO HAS G-TUBE ON TUBE FEEDINGS NEPHOVITE @ 50 ML/HR. PT NORMALLY NONVERBAL AND STOOLS THREE TIMES A SHIFT HAS PICC LINE [facility].
[2019-08-05] MEDS ORDERED: METO50TA16 GT (14:27)
[2019-08-05] MEDS ORDERED: INSU100I26 SQ (14:27)
[2019-08-05] MEDS ORDERED: VANC1PLA9 IV (14:27)
[2019-08-05] MEDS ORDERED: FOLI0.8T2 PO (14:27)
[2019-08-05] MEDS ORDERED: AMIK250V14 IJ (14:27)
[2019-08-05] MEDS ORDERED: ONDA4TAB5 GT (14:27)
[2019-08-05] MEDS ORDERED: MIDO10TA GT (14:27)
[2019-08-05] MEDS ORDERED: DEXT15DR6 OP (14:27)
[2019-08-05] MEDS ORDERED: CLON0.1T14 PO (14:27)
[2019-08-05] MEDS ORDERED: BISA10SU11 RC (14:27)
[2019-08-05] MEDS ORDERED: IV NS 0.9% 1,000 ML BAG IV ONE (14:30)
--- NOTE | 2019-08-05 14:31 | NUR ---
LABS WITH URINE AND BLOOD CULTURES DONE SENT FOR PROCESSING
[2019-08-05 14:35] LABS: BASOPHILS # (AUTO) 0.2 /CMM (0.0-0.2); BASOPHILS % (AUTO) 1.1 % (0.0-2.0); EOSINOPHILS % (AUTO) 1.7 % (0.0-6.0); HEMATOCRIT 33 % (39-51); HEMOGLOBIN 10.1 g/dL (13.5-17.5); LYMPHOCYTES # (AUTO) 3.1 /CMM (0.8-4.8); LYMPHOCYTES % (AUTO) 19.3 % (20.0-44.0); MEAN CORPUSCULAR HGB CONC 31 g/dl (31.0-36.0); MEAN CORPUSCULAR VOLUME 94 fL (80-96); NEUTROPHILS # (AUTO) 11.6 /CMM (1.8-8.9); NEUTROPHILS % (AUTO) 71.9 % (43.0-81.0); PLATELET COUNT (AUTO) 590 /CMM (150-450); RED BLOOD CELL COUNT(AUTO) 3.51 MIL/uL (4.5-6.0); WHITE BLOOD COUNT (AUTO) 16.1 K/uL (4.3-11.0)
[2019-08-05 14:36] LABS: APPEARANCE,URINE Cloudy (CLEAR); BILIRUBIN,URINE SMALL (NEGATIVE); BLOOD, URINE Trace-lysed Ery/uL (NEGATIVE); KETONES,URINE Negative (NEGATIVE); LEUKOCYTE ESTERASE ,URINE Negative (NEGATIVE); NITRITE, URINE Negative (NEGATIVE); PROTEIN,URINE >=300 mg/dl (NEGATIVE); UGLUCOSE 250 MG/DL mg/dL (NEGATIVE); UROBILINOGEN,URINE 0.2 EU/dL (0.2)
[2019-08-05 14:39] LABS: COLOR,URINE Dark Yellow (YELLOW)
[2019-08-05 14:46] LABS: BACTERIA,URINE Few /HPF (None Seen); SQUAMOUS EPITHELIAL CELL,UR Few /HPF (None Seen)
[2019-08-05 14:55] LABS: ALANINE AMINOTRANSFERASE 16 U/L (12-78); ALBUMIN 2.4 g/dL (3.4-5.0); ALKALINE PHOSPHATASE 256 U/L (46-116); ASPARTATE AMINOTRANSFERASE 17 U/L (15-37); BILIRUBIN,DIRECT 0.1 mg/dL (0.0-0.2); BILIRUBIN,TOTAL 0.3 mg/dL (0.2-1.0); CARBON DIOXIDE 18 mmol/L (21-32); CHLORIDE 95 mmol/L (98-107); CREATININE 5.4 mg/dL (0.6-1.3); POTASSIUM 3.6 mmol/L (3.5-5.1); SODIUM SERUM 135 mmol/L (136-145); TOTAL PROTEIN, SERUM 9.2 g/dL (6.4-8.2)
[2019-08-05 14:58] LABS: GLUCOSE 359 mg/dL (74-106); UREA NITROGEN, BLOOD 82 mg/dL (7-18)
[2019-08-05] MEDS ORDERED: VANCOMYCIN HCL 1.25 GM in IV D5W 260 ML IV ONE (15:00)
[2019-08-05] MEDS ORDERED: PIPERACILLIN /TAZOBACTAM 3.375 G in IV D5W 50 ML IV ONE (15:00)
--- NOTE | 2019-08-05 15:11 | NUR ---
3.4 md brandon aware
--- NOTE | 2019-08-05 15:36 | NUR ---
called rn sup awaiting bed assignment
--- NOTE | 2019-08-05 15:55 | NUR ---
PHARMACY CALLED AURY ON HOLD WILL GIVEN ZOSYN REPORT GIVEN TO REGRIND MILL OPERATOR CUONG PT ADMITTEED TO ROOM 251 UNDER ELADIO
[2019-08-05] MEDS ORDERED: VANCOMYCIN 1 GM in IV D5W 250 ML IV ONE (16:00)
--- NOTE | 2019-08-05 16:01 | NUR ---
JUANITO FROM PHARMACY CALLED RE VANCO ORDER OF 1.25G, RECOMMENDED EITHER VANCO TROUGH LEVEL OR CHANGE ORDER TO 1G. PER DR AMATO, CHANGE ORDER TO VANCO 1G IV. NOTIFIED PHARMACY.
[2019-08-05] MEDS ORDERED: ALBUTEROL FS 2.5 MG/3 ML VIAL.NEB NEB PRN (16:30)
[2019-08-05] MEDS ORDERED: IPRATROPIUM NEB FS 0.5 MG/2.5 ML AMPUL.NEB NEB PRN (16:30)
[2019-08-05] MEDS ORDERED: FEE PK DOSING 1 MIN EA MC ONE (16:50)
--- NOTE | 2019-08-05 16:58 | NUR ---
RT TRANSFERRED PT FROM ER TO ICU. VENT SETTINGS NOTED AND VENT PLUGGED IN RED OUTLET. ALARMS CHECKED AND AUDIBLE. AMBU BAG AND SPARE TRACH NOTED HOB. PT TOLERATING SETTINGS WELL. WILL CONTINUE TO MONITOR T/O SHIFT.
--- NOTE | 2019-08-05 18:43 | NUR ---
RN NOTE 1700: Admitted 58 y/o male patient from ER, SHAI resident for Sepsis accompanied by tachy. Trache to vent, tolerated settings well. Bilateral AKA, left aka stump with richar, taken pics, sacral wound. VSS at this time. IV ATB ongoing. 184: No any significant changes noted at this time. kept clean, warm and dry. Needs attended.
--- NOTE | 2019-08-05 19:24 | NUR ---
SWEATBAND CUTTING MACHINE OPERATOR NOTES RECEIVED PT ON BED. ON VERBAL, ON MECH VENT SETTING NO RESPIRATORY DISTRESS NOTED. ON TELE MONITOR ST. IV ACCESS IN ABDIEL PICC LINE, PATENT AND INTACT. HEAD OF BED ELEVATED. SIDE RAILS UP. CALL LIGHT WITHIN REACH. BED ALARM ON. WILL CONTINUE TO MONITOR PT CLOSELY.
[2019-08-05] MEDS ORDERED: NEPRO 1,000 ML BOTTLE GT PRN (19:30)
[2019-08-05] MEDS: MEROPENEM 500 MG in IV NS 0.9% 50 ML IV SCH (19:56)
[2019-08-05] MEDS: ACETAMINOPHEN 325 MG TABLET MC PRN (20:20)
[2019-08-05] MEDS ORDERED: CEFEPIME 1 GM in IV NS 0.9% 50 ML IV SCH (21:00)
[2019-08-06] VITALS (38 sets, daily range): BP systolic 56–154; BP diastolic 23–91
[2019-08-06] MEDS ORDERED: IV NS 0.9% 500 ML IV ONE
--- NOTE | 2019-08-06 01:00 | NUR ---
LONG DISTANCE OPERATOR NOTES PT HYPOTENSIVE, GIVEN 500ML NS BOLUS. WILL MONITOR BP CLOSELY.
[2019-08-06 05:06] LABS: BASOPHILS # (AUTO) 0.2 /CMM (0.0-0.2); BASOPHILS % (AUTO) 1.3 % (0.0-2.0); HEMATOCRIT 34 % (39-51); HEMOGLOBIN 10.1 g/dL (13.5-17.5); LYMPHOCYTES # (AUTO) 2.9 /CMM (0.8-4.8); LYMPHOCYTES % (AUTO) 18.2 % (20.0-44.0); MEAN CORPUSCULAR HGB CONC 30 g/dl (31.0-36.0); MEAN CORPUSCULAR VOLUME 94 fL (80-96); MONOCYTES # (AUTO) 1.4 /CMM (0.1-1.30); MONOCYTES % (AUTO) 8.4 % (2.0-12.0); NEUTROPHILS % (AUTO) 68.1 % (43.0-81.0); PLATELET COUNT (AUTO) 481 /CMM (150-450); RED BLOOD CELL COUNT(AUTO) 3.61 MIL/uL (4.5-6.0); WHITE BLOOD COUNT (AUTO) 16.1 K/uL (4.3-11.0)
[2019-08-06 05:30] LABS: CREATININE 5.6 mg/dL (0.6-1.3); MAGNESIUM 2.7 mg/dL (1.8-2.4); PHOSPHORUS 5.1 mg/dL (2.5-4.9); POTASSIUM 3.7 mmol/L (3.5-5.1)
--- NOTE | 2019-08-06 07:27 | NUR ---
CLIENT HR MANAGER NOTES NO ACUTE CHANGES NOTED DURING THE SHIFT. BP WNL. ENDORSE TO AM RN REGARDING PATIENT GRAM NEGATIVE RODS.
--- NOTE | 2019-08-06 11:45 | NUR ---
rn note ABDIEL PICC LINE removed, tip cut and sent to the lab for culture, midline 20G ABDIEL inserted successfully.
[2019-08-06] MEDS: NEPRO 1,000 ML BOTTLE GT PRN (12:43)
[2019-08-06] MEDS ORDERED: VANCOMYCIN 500 MG in IV D5W 100 ML IV PRN (17:00)
[2019-08-06] MEDS ORDERED: DEXTROSE 50%-WATER 50 ML DISP.SYRIN IV PRN (17:30)
[2019-08-06] MEDS: BLOOD SUGAR DIAGNOSTIC 1 EACH STRIP IN SCH (18:24)
[2019-08-06] MEDS: PROSOURCE / PROSTAT (PYXIS) 30 ML UDC GT SCH (18:24)
[2019-08-06] MEDS: INSULIN REGULAR, HUMAN 100 UNIT/ML 3 ML VIAL SQ PRN (18:35)
--- NOTE | 2019-08-06 19:23 | NUR ---
PRINTED CIRCUIT BOARDS ROUTER NOTE PATIENT RECEIVED IN BED ON HD TREATMENT. PATIENT NON VERBAL AND DOES NOT TRACK WITH HIS EYES. PATIENT ON VENT TOLERATING CURRENT SETTINGS. BREATHING EVEN AND UNLABORED. EQUAL CHEST RISE AND FALL NOTED. TRACH MIDLINE. PATIENT VOMMITTED X 1 YELLOW WITH CHUNKS OF TUBE FEEDING. NO S/S OF ASPIRATION. PATIENT. PATIENT COMPLETED DIALYSIS WITH 200 ML REMOVED. ENDING BLOOD PRESSURE POST BLOOD RINSE BACK 139/49. PATIENT TUBE FEEDING PAUSED POST EMESIS. PATIENT MIDLINE PATENT AND INTACT NO S/S OF INFECTION OR INFILTRATION RN WILL CONTINUE TO MONITOR FOR CHANGES.
[2019-08-06] MEDS: MEROPENEM 500 MG in IV NS 0.9% 50 ML IV SCH (20:12)
[2019-08-06] MEDS: ONDANSETRON HCL/PF 4 MG/2 ML VIAL IVP PRN (20:18)
[2019-08-06] MEDS: MORPHINE SULFATE INJ 2 MG/ML DISP.SYRIN IV PRN (20:18)
[2019-08-06] MEDS: TRIAMCINOLONE ACETONIDE 0.1% CR 15 GM TUBE TP SCH (21:50)
[2019-08-06] MEDS: AMMONIUM LACTATE 227 GM BOTTLE TP SCH (21:50)
[2019-08-06] MEDS: Z GUARD REMEDY 4 OZ OINT TP SCH (21:52)
[2019-08-07] VITALS (17 sets, daily range): BP systolic 87–135; BP diastolic 40–90
--- NOTE | 2019-08-07 | NUR ---
REAL ESTATE MANAGER NOTE PATIENT HAD FEVER OF 101.4 COOLING MEASURES IMPLEMENTED AND TYLENOL GIVEN
[2019-08-07] MEDS: BLOOD SUGAR DIAGNOSTIC 1 EACH STRIP IN SCH ×4 (00:57→17:24)
[2019-08-07] MEDS: INSULIN REGULAR, HUMAN 100 UNIT/ML 3 ML VIAL SQ PRN ×4 (01:08→17:32)
[2019-08-07 05:09] LABS: CALCIUM, SERUM 9.6 mg/dL (8.5-10.1); CREATININE 3.3 mg/dL (0.6-1.3); POTASSIUM 3.1 mmol/L (3.5-5.1)
--- NOTE | 2019-08-07 06:43 | NUR ---
RENAL DIALYSIS RN NOTE PATIENT TOLERATED THE NIGHT WELL FEVER DROPPED TO 99.2 POST COOLING MEASURES. NO S/S OF RESP/ CARDIAC DISTRESS. PATIENT HR ST 117 ON THE MONITOR. PATIENT REMAINS NON VERBAL WITH NON PURPOSEFUL EYE MOVEMENTS. ALL CARE GIVEN ORDERED. WOUND CARE GIVEN, MEDS GIVEN ORDERED. PATIENT TURNED Q 2 HOURS. WILL ENDORSES TO AM SHIFT POC FOR MARKELL.
[2019-08-07] MEDS: PROSOURCE / PROSTAT (PYXIS) 30 ML UDC GT SCH ×2 (08:09→16:32)
[2019-08-07] MEDS: Z GUARD REMEDY 4 OZ OINT TP SCH ×2 (08:10→21:34)
[2019-08-07] MEDS: TRIAMCINOLONE ACETONIDE 0.1% CR 15 GM TUBE TP SCH ×2 (08:10→21:35)
[2019-08-07] MEDS: AMMONIUM LACTATE 227 GM BOTTLE TP SCH ×2 (08:10→21:35)
[2019-08-07] MEDS: ACETAMINOPHEN 325 MG TABLET MC PRN ×2 (08:19→16:58)
[2019-08-07] MEDS: ONDANSETRON HCL/PF 4 MG/2 ML VIAL IVP PRN ×2 (09:06→16:58)
--- NOTE | 2019-08-07 12:20 | NUR ---
RN NOTE: RECEIVED A BED FOR THE PATIENT TO BE TRANSFER TO A TELEMETRY UNIT ROOM 117-1. CALLED AND SPOKE WITH INGRID, DAUGHTER AND MADE HER AWARE ABOUT THE PENDING TRANSFER TODAY TO ANOTHER UNIT.
[2019-08-07] MEDS: NEPRO 1,000 ML BOTTLE GT PRN (12:54)
--- NOTE | 2019-08-07 13:30 | NUR ---
RN NOTE: PATIENT WAS TRANSFERRED TO ROOM 117-1 VIA ACLS PROTOCOL. PATIENT'S CHART AND TOILETRIES WERE RELEASED WITH THE PATIENT. DAUGHTER INGRID WAS AWARE OF THE TRANSFER.
--- NOTE | 2019-08-07 14:30 | NUR ---
ASSISTANT WAREHOUSE MANAGER NOTES RECEIVED PT TRANSPORTED VIA BED FROM ICU. REPORTGIVEN BY SIMONE/RN, RTS PRESENT AT BEDSIDE. PT TOLERATING CURRENT VENT SETTING, WITH NO DISTRESS NOTED. PT NOT EXHIBITING PAIN AT THIS MOMENT. PT NON VERBAL; SAVI AKA NOTED. ON GT FEEDING NEPHRO 40ML/FR X24 HOURS, NO RESIDUALS NOTED. PIV ABDIEL MIDLINE ON TKO NS, INTACT AND OPERATIONAL. PT KEPT COMFORTABLE IN BED. HOB ELEVATED. PT'S BED IN LOWEST, LOCKED POSITION WITH SRX3. WILL CONTINUE TO MONITOR.
--- NOTE | 2019-08-07 14:35 | NUR ---
DOG TRACK KENNEL MANAGER NOTES PT HOOKED TO TELEMONITORING, ST 108.
--- NOTE | 2019-08-07 16:00 | NUR ---
WIRELESS SALES MANAGER NOTES PER RN/ICU DIRECTOR HARDWARE/HOSPITALIST/NN AWARE OF POTASSIUM LEVEL. MEAL COOK/FLORENTINO SAW AND SIGNED NOTE WITH THAT POTASSIUM LEVEL. NO ORDERS NOTED AT THIS TIME.
--- NOTE | 2019-08-07 17:06 | NUR ---
PHOTOGRAPHIC REPRODUCTION TECHNICIAN NOTES PT NOTED VOMITTED X1. GT FEEDING HELD, NO RESIDUALS PRESENT. TEMP 99.0. TYLENOL PRN AND ZOFRAN GIVEN. WILL CONTINUE TO MONITOR.
--- NOTE | 2019-08-07 18:40 | NUR ---
VERIFIER CLOSING NOTES PT NON VERBAL; SAVI AKA NOTED. PT TOLERATING CURRENT VENT SETTING, WITH NO DISTRESS NOTED. PT NOT EXHIBITING PAIN AT THIS MOMENT. ON TELE MONITORING WITH, ST 103. RIGHT CHEST WALL HD ACCESS NOTED. ON GT FEEDING NEPHRO 40ML/FR X24 HOURS, NO RESIDUALS NOTED. PIV ABDIEL MIDLINE ON TKO NS, INTACT AND OPERATIONAL. ALL NEEDS AND CARE ATTENDED. PT KEPT COMFORTABLE IN BED. HOB ELEVATED. PT'S BED IN LOWEST, LOCKED POSITION WITH SRX3. WILL WILL ENDORSE TO INCOMING NIGHT NURSE FOR MARKELL.
[2019-08-07] MEDS: MEROPENEM 500 MG in IV NS 0.9% 50 ML IV SCH (21:34)
[2019-08-08] VITALS: BP 133/56
[2019-08-08] MEDS: BLOOD SUGAR DIAGNOSTIC 1 EACH STRIP IN SCH ×4 (00:19→19:05)
[2019-08-08] MEDS: INSULIN REGULAR, HUMAN 100 UNIT/ML 3 ML VIAL SQ PRN ×4 (00:21→19:07)
[2019-08-08 04:00] VITALS: BP 112/55
[2019-08-08] MEDS: ACETAMINOPHEN 325 MG TABLET MC PRN ×2 (05:36→14:35)
[2019-08-08 06:42] LABS: BASOPHILS # (AUTO) 0.1 /CMM (0.0-0.2); BASOPHILS % (AUTO) 0.6 % (0.0-2.0); EOSINOPHILS % (AUTO) 1.4 % (0.0-6.0); HEMATOCRIT 29 % (39-51); HEMOGLOBIN 8.5 g/dL (13.5-17.5); LYMPHOCYTES # (AUTO) 2.5 /CMM (0.8-4.8); LYMPHOCYTES % (AUTO) 12.7 % (20.0-44.0); MEAN CORPUSCULAR HGB CONC 30 g/dl (31.0-36.0); MEAN CORPUSCULAR VOLUME 93 fL (80-96); MONOCYTES # (AUTO) 1.7 /CMM (0.1-1.30); MONOCYTES % (AUTO) 8.7 % (2.0-12.0); NEUTROPHILS # (AUTO) 15.3 /CMM (1.8-8.9); NEUTROPHILS % (AUTO) 76.6 % (43.0-81.0); PLATELET COUNT (AUTO) 444 /CMM (150-450); RED BLOOD CELL COUNT(AUTO) 3.07 MIL/uL (4.5-6.0); WHITE BLOOD COUNT (AUTO) 19.9 K/uL (4.3-11.0)
[2019-08-08 07:00] LABS: CALCIUM, SERUM 9.3 mg/dL (8.5-10.1); CREATININE 4.4 mg/dL (0.6-1.3); POTASSIUM 3.6 mmol/L (3.5-5.1)
--- NOTE | 2019-08-08 07:00 | NUR ---
AIR COMPRESSOR ENGINEER OPENING NOTES PATIENT RECIVED BY AM SHIFT. PATIENT IS IN BED ASLEEP BUT EASILY AROUSED. PATIENT IS A/O X1 PATIENT IS CURRENTLY MONITOR WITH ST W OCCASONAL PVC 110'S PATIENT HAS SAVI AKA. . PATIENT IS ON NEPRO 40 ML/HR. PAITNET HAS ABDIEL MIDLINE TKO, LINE FLUSHED AND INTACT. PATIENT BED IN LOWEST POSITION , SAFETY MAINTAINED. CALL LIGHT WITH IN REACH.
[2019-08-08 08:00] VITALS: BP 118/61
[2019-08-08] MEDS: PROSOURCE / PROSTAT (PYXIS) 30 ML UDC GT SCH ×2 (08:36→16:12)
[2019-08-08] MEDS: AMMONIUM LACTATE 227 GM BOTTLE TP SCH ×2 (08:42→21:08)
[2019-08-08] MEDS: TRIAMCINOLONE ACETONIDE 0.1% CR 15 GM TUBE TP SCH ×2 (08:42→21:09)
[2019-08-08] MEDS: Z GUARD REMEDY 4 OZ OINT TP SCH ×2 (08:43→21:08)
--- NOTE | 2019-08-08 09:56 | NUR ---
RADHA called the pt.'s , Janet Bravo [phone] to check in with her as the pt. was sent to ER on 08/05/19. Per Janet, she is concerned because the pt.'s room is not labeled, "Isolation" and upon informing nursing staff Janet was told the pt. is no longer in isolation. RADHA contacted Charge Nurse Bev who stated the pt. is still on isolation and that she would call infection control. RADHA also contacted 1st floor [facility] and spoke to charge nurse to inform her that pt. is on droplet and contact isolation. Charge Nurse was agreeable to making necessary accommodations.
--- NOTE | 2019-08-08 10:00 | NUR ---
LIVE IN COMPANION NOTES TALKED TO FAMILY ABOUT PRECAUTION'S - PATIENT WAS ON PRECAUTION. TALKED TO INFECTION CONTROL.
[2019-08-08 12:00] VITALS: BP 107/38
[2019-08-08 16:00] VITALS: BP 107/36
[2019-08-08] MEDS: DAKINS QUARTER STRENGTH (0.125%) 480 ML BOTTLE TOP SCH (16:50)
--- NOTE | 2019-08-08 19:30 | NUR ---
OCCUPATIONAL HEALTH NURSE SUPERVISOR CLOSING NOTES PATIENT ENSORED TO PM SHIFT. PATIENT IS ASLEEP BUT EASILY AROUSED. PATIENT CAN TRACK WITH EYES. PATIENT IS SATURATING WELL AT 100% AND SHOWS NO SIGNS OF DISTRESS . SAFETY MAINTAINED, CALL LIGHT WITH IN REACH. SAFETY MAINTAINED . UPDATED FAMILY TREATMENT PLAN.
[2019-08-08 20:00] VITALS: BP 115/38
[2019-08-08] MEDS ORDERED: FEE PK DOSING 1 MIN EA MC ONE (20:24)
[2019-08-08] MEDS ORDERED: DOSING PER PHARMACY-AMIKACI IV XX PRN (20:30)
--- NOTE | 2019-08-08 20:33 | NUR ---
PLANT PHYSIOLOGY TEACHER NOTES RECEIVED PT ON BED. ON TELE MONITOR ST 140. A/O X 1. ON MECH VENT SETTING NO RESPIRATORY DISTRESS NOTED. ON GOING HD, HD NURSE AT BEDSIDE. ON FLEXISEAL DRAINING BROWN LIQUID STOOL. IV ACCESS ON ABDIEL MIDLINE TKO. HEAD OF BED ELEVATED. SIDE RAILS UP. CALL LIGHT WITHIN REACH. BED ALARM ON. WILL MONITOR PT CLOSELY.
--- NOTE | 2019-08-08 20:37 | NUR ---
AUTOMOTIVE ENGINEERING TEACHER NOTES PER PHARMACY , DONT GIVE VANCO PRN AFTER HD.
[2019-08-08] MEDS ORDERED: AMIKACIN 300 MG in IV D5W 100 ML IV ONE (21:00)
[2019-08-09] VITALS (77 sets, daily range): BP systolic 73–177; BP diastolic 14–71
[2019-08-09] MEDS: BLOOD SUGAR DIAGNOSTIC 1 EACH STRIP IN SCH ×4 (00:08→19:23)
[2019-08-09] MEDS: INSULIN REGULAR, HUMAN 100 UNIT/ML 3 ML VIAL SQ PRN ×4 (00:09→18:04)
[2019-08-09] MEDS: ACETAMINOPHEN 325 MG TABLET MC PRN (00:29)
--- NOTE | 2019-08-09 00:50 | NUR ---
KINESIOLOGY INTERNSHIP NOTES CALLED SUPERVISOR YARD REGARDING PT FOR HYPOTENSION. AWAITING CALL BACK.
--- NOTE | 2019-08-09 00:55 | NUR ---
SPIRAL GEAR GENERATOR NOTES PER INVESTOR RELATIONS COORDINATOR NS 1L BOLUS. WILL MONITOR BP CLOSELY.
[2019-08-09] MEDS ORDERED: IV NS 0.9% 250 ML IV ONE ×3 (01:00→02:00)
[2019-08-09] MEDS ORDERED: IV NS 0.9% 1,000 ML IV PRN (01:00)
--- NOTE | 2019-08-09 01:01 | NUR ---
ORACLE FINANCIALS CONSULTANT NOTES INFORMED BENCH MOLDER PT IS ON HD. PER BENCH MOLDER 250ML NS BOLUS FOR NOW, IF NOT EFFECTIVE ANOTHER ROUND OF 250ML NS BOLUS. WILL MONITOR PT CLOSELY.
--- NOTE | 2019-08-09 02:00 | NUR ---
SPIKE MACHINE OPERATOR NOTES PER DR LORENZO, TRANSFER PT TO ICU, START LEVOPHED IF NEEDED TO KEEP MAP > 65.
--- NOTE | 2019-08-09 02:57 | NUR ---
ICU NOTES RECEIVED PT VIA VENT PER TRACH TRANSFER FROM TELE 1ST FLOOR SECONDARY TO HYPOTENSION,WAS GIVEN A TOTAL OF 750 NS IV BOLUS.INITIAL MAP OF 73.
[2019-08-09] MEDS ORDERED: NOREPINEPHRINE 4 MG/4 ML AMPUL IV ONE (03:09)
--- NOTE | 2019-08-09 03:09 | NUR ---
PT TRANSFERRED TO ICU 260
--- NOTE | 2019-08-09 03:10 | NUR ---
ICU NOTES STARTED ON LEVOPHED AT 1MCG/MIN. BP OF 73/34 W/ MAP OF 54.PT NON-VERBAL,RESPONDS ONLY TO SUCTIONING BY GRIMACING.NO OTHER RESPONSE.
[2019-08-09] MEDS: NOREPINEPHRINE 16 MG in IV D5W 500 ML IV PRN (03:12)
--- NOTE | 2019-08-09 03:12 | NUR ---
AUCTION ASSISTANT NOTES PT TRANSFERRED STABLE VIA ACLS PROTOCOL.
--- NOTE | 2019-08-09 06:05 | NUR ---
ICU NOTES BLOOD SUGAR =436MG/DL.10UNITS REGULAR INSULIN GIVEN AND NOTIFIED.ORDER RECEIVED,BS TO BE CHECKED IN 1HR.
[2019-08-09 06:59] LABS: CALCIUM, SERUM 8.9 mg/dL (8.5-10.1); CREATININE 3.1 mg/dL (0.6-1.3); POTASSIUM 3.9 mmol/L (3.5-5.1)
--- NOTE | 2019-08-09 07:10 | NUR ---
ICU NOTES REMAINS ON LEVOPHEDDRIP AT 2MCG/MIN.ACCUCHECK DONE ORDERED BY ,CALL PLACED [employer],DR.SAM HERNANDEZ IS CAMPAIGN COORDINATOR.WILL CALL BACK.
--- NOTE | 2019-08-09 08:08 | NUR ---
Dr. Sprague called and ordered to change mild sliding scale to moderate sliding scale. Latest blood sugar 392 mg/dl. Will check blood sugar every 6 hrs. Due @ 12 noon.
[2019-08-09] MEDS ORDERED: DEXTROSE 50%-WATER 50 ML DISP.SYRIN IV PRN (08:30)
[2019-08-09 08:45] LABS: BASOPHILS # (AUTO) 0.1 /CMM (0.0-0.2); BASOPHILS % (AUTO) 0.4 % (0.0-2.0); EOSINOPHILS % (AUTO) 0.9 % (0.0-6.0); HEMATOCRIT 33 % (39-51); HEMOGLOBIN 9.6 g/dL (13.5-17.5); LYMPHOCYTES # (AUTO) 2.6 /CMM (0.8-4.8); LYMPHOCYTES % (AUTO) 10.5 % (20.0-44.0); MEAN CORPUSCULAR HGB CONC 29 g/dl (31.0-36.0); MEAN CORPUSCULAR VOLUME 93 fL (80-96); MONOCYTES # (AUTO) 1.2 /CMM (0.1-1.30); NEUTROPHILS # (AUTO) 20.6 /CMM (1.8-8.9); NEUTROPHILS % (AUTO) 83.2 % (43.0-81.0); PLATELET COUNT (AUTO) 488 /CMM (150-450); WHITE BLOOD COUNT (AUTO) 24.7 K/uL (4.3-11.0)
--- NOTE | 2019-08-09 08:55 | NUR ---
RT PT RECEIVED TRACHED WITH A SHILEY 8. CURRENTLY TOLERATING VENT SETTINGS. VENT ALARMS CHECKED AND AUDIBLE. CUFF PRESSURE CHECKED, ANODIZER. PT AIRWAY SUCTIONED AND PATENT. SMALL, THICK, YELLOW SECRETIONS SUCTIONED. BREATH SOUNDS CLEAR. AMBU BAG AT HEAD OF BED. HOB AT 30 DEGREES. CONTINUING CURRENT PLAN OF RESPIRATORY CARE. Addendum: 08/09/19 at 1043 by CAMILA VARGAS RT Amended: Links added.
--- NOTE | 2019-08-09 09:08 | NUR ---
RT PT RECEIVED TRACHED WITH A SHILEY 8. CURRENTLY TOLERATING VENT SETTINGS. VENT ALARMS CHECKED AND AUDIBLE. CUFF PRESSURE CHECKED, EXTRACT PULLER. PT AIRWAY SUCTIONED AND PATENT. SMALL, THICK, YELLOW SECRETIONS SUCTIONED. BREATH SOUNDS CLEAR. AMBU BAG AT HEAD OF BED. HOB AT 30 DEGREES. CONTINUING CURRENT PLAN OF RESPIRATORY CARE.
--- NOTE | 2019-08-09 09:20 | NUR ---
Patient's daughter (Christine) called unit, updated with patient's progress, vent, antibiotics, wound care, and plan of care, patient's daughter verbalized understanding.
[2019-08-09] MEDS: LACTOBACILLUS RHAMNOSUS GG 1 EACH CAP.SPRINK GT SCH ×2 (09:24→17:49)
--- NOTE | 2019-08-09 09:57 | NUR ---
WOUND CARE CONSULT: PT FOLLOWED BY PLASTIC SURGERY TEAM FOR WOUNDS. DEFER TO SURGICAL TEAM FOR WOUND TREATMENT PLAN. PT ON FIRST STEP CIRRUS LOW AIRLOSS MATTRESS. ALL SKIN PROTECTION MEASURES IN PLACE AND DISCUSSED WITH NURSING STAFF. WILL SEE PRN.
[2019-08-09] MEDS: PROSOURCE / PROSTAT (PYXIS) 30 ML UDC GT SCH ×2 (10:11→17:00)
[2019-08-09] MEDS: TRIAMCINOLONE ACETONIDE 0.1% CR 15 GM TUBE TP SCH ×2 (10:14→21:19)
[2019-08-09] MEDS: AMMONIUM LACTATE 227 GM BOTTLE TP SCH ×2 (10:15→21:18)
[2019-08-09] MEDS: Z GUARD REMEDY 4 OZ OINT TP SCH ×2 (10:15→21:17)
[2019-08-09] MEDS: DAKINS QUARTER STRENGTH (0.125%) 480 ML BOTTLE TOP SCH (10:15)
--- NOTE | 2019-08-09 15:04 | NUR ---
called and informed of Patient's blood sugar of 369 mg/dl from 403 mg/dl after giving 15 units of Regular insulin. No new order made. Also informed of troponin of 0.142 this AM. He said "I will inform Dr. Pham."
[2019-08-09] MEDS: ASPIRIN EC 81 MG TABLET.DR PO SCH (16:25)
--- NOTE | 2019-08-09 19:30 | NUR ---
ICU NOTES RECEIVED PT ON VENT PER TRACH,OPENS EYES SPONTANEOUSLY BUT NOT TO COMMAND.BILATERAL AKA,LEFT W/DRESSING INTACT.
--- NOTE | 2019-08-09 20:00 | NUR ---
ICU NOTES DAUGHTERS AT BEDSIDE,UPDATED W/ PT'S CONDITION.QUESTIONS ANSWERED. Addendum: 08/10/19 at 0442 by CHANG VIDAL RN SISTER INSTEAD OF DAUGHTERS
[2019-08-09] MEDS: HEPARIN SODIUM, PORCINE 5000 UNITS/1 ML VIAL SQ SCH (21:07)
--- NOTE | 2019-08-09 23:00 | NUR ---
ICU NOTES SUCTIONED FOR SCANT YELLOW SECRETIONS FROM TRACH AND MODERATE AMOUNT ORAL SECRETIONS.ORAL CARE DONE.REMAINS ON LEVOPHED DRIP AT 2MCG/MIN.
[2019-08-10] VITALS (69 sets, daily range): BP systolic 70–184; BP diastolic 34–104
[2019-08-10] MEDS: INSULIN REGULAR, HUMAN 100 UNIT/ML 3 ML VIAL SQ PRN ×4 (00:01→17:18)
[2019-08-10] MEDS: BLOOD SUGAR DIAGNOSTIC 1 EACH STRIP IN SCH ×4 (00:04→17:12)
[2019-08-10] MEDS: NOREPINEPHRINE 16 MG in IV D5W 500 ML IV PRN (03:32)
[2019-08-10 04:20] LABS: BASOPHILS # (AUTO) 0.2 /CMM (0.0-0.2); BASOPHILS % (AUTO) 0.8 % (0.0-2.0); EOSINOPHILS % (AUTO) 4.1 % (0.0-6.0); HEMATOCRIT 30 % (39-51); HEMOGLOBIN 9.2 g/dL (13.5-17.5); LYMPHOCYTES # (AUTO) 3.5 /CMM (0.8-4.8); LYMPHOCYTES % (AUTO) 17.6 % (20.0-44.0); MEAN CORPUSCULAR HGB CONC 31 g/dl (31.0-36.0); MEAN CORPUSCULAR VOLUME 92 fL (80-96); MONOCYTES # (AUTO) 1.3 /CMM (0.1-1.30); MONOCYTES % (AUTO) 6.6 % (2.0-12.0); NEUTROPHILS % (AUTO) 70.9 % (43.0-81.0); PLATELET COUNT (AUTO) 497 /CMM (150-450); RED BLOOD CELL COUNT(AUTO) 3.24 MIL/uL (4.5-6.0); WHITE BLOOD COUNT (AUTO) 19.7 K/uL (4.3-11.0)
[2019-08-10 04:30] LABS: CALCIUM, SERUM 9.3 mg/dL (8.5-10.1); CREATININE 4.2 mg/dL (0.6-1.3); POTASSIUM 3.4 mmol/L (3.5-5.1)
[2019-08-10] MEDS: NEPRO 1,000 ML BOTTLE GT PRN (05:07)
--- NOTE | 2019-08-10 05:48 | NUR ---
RECEIVED PT TRACH ON VENT. TOLERATED SETTINGS. NO RESP DISTRESS THE WHOLE NIGHT. SX'D AND LAVAGED FOR MOD MAT OF THIN WHITE SECRETIONS. VENT ALARMS SET AND AUDIBLE. AMBU BAG AT BEDSIDE. CONTINUE [facility] VENT SUPPORT. Addendum: 08/10/19 at 0549 by AUDI KOHLI RT Amended: Links added.
--- NOTE | 2019-08-10 06:38 | NUR ---
ICU NOTES REMAINS ON LEVOPHED DRIP.SUCTIONING SCANT YELLOW SECRETIONS.ORAL CARE DONE.DRESSING TO LT AKA CHANGED,W/SMALL AMT. OF BLOOD NOTED MAYDA INTACT.NEURO UNCHANGED.MONITOR SHOWS SHOWS SINUS TACH.WILL ENDORSED TO DAY SHIFT RE:CARE OF PT.
--- NOTE | 2019-08-10 08:00 | NUR ---
ICU/RN INITIAL NOTES,AM RECEIVED BEDSIDE REPORT FROM NIGHT NURSE. PT OBTUNDED, DOES NOT FOLLOW COMMANDS. TRACH TO VENT WITH SETTINGS ORDERED BY MD. NO ACUTE DISTRESS NOTED. PT SINUS TACH ON TELE. PT ANURIC, RECTAL TUBE IN PLACE. LEFT UPPER ARM MIDLINE PATENT AND INTACT, NO S/S OF INFECTION OR INFILTRATION NOTED. LOW DOSE LEVO FOR BP SUPPORT. ALL NEEDS WILL BE ATTENDED TO, SAFETY MEASURES TAKEN, BED IN LOW POSITION, SIDE RAILS UP, CALL LIGHT WITHIN REACH. WILL CONTINUE CARE. POSSIBLE HD TODAY.
[2019-08-10] MEDS: PROSOURCE / PROSTAT (PYXIS) 30 ML UDC GT SCH ×2 (08:39→17:11)
[2019-08-10] MEDS: ASPIRIN EC 81 MG TABLET.DR PO SCH (08:39)
[2019-08-10] MEDS: LACTOBACILLUS RHAMNOSUS GG 1 EACH CAP.SPRINK GT SCH ×2 (08:39→17:11)
[2019-08-10] MEDS: HEPARIN SODIUM, PORCINE 5000 UNITS/1 ML VIAL SQ SCH ×2 (08:40→21:25)
[2019-08-10] MEDS: Z GUARD REMEDY 4 OZ OINT TP SCH ×2 (08:41→21:48)
[2019-08-10] MEDS: DAKINS QUARTER STRENGTH (0.125%) 480 ML BOTTLE TOP SCH (08:41)
[2019-08-10] MEDS: AMMONIUM LACTATE 227 GM BOTTLE TP SCH ×2 (08:41→21:49)
[2019-08-10] MEDS: TRIAMCINOLONE ACETONIDE 0.1% CR 15 GM TUBE TP SCH ×2 (08:41→21:48)
[2019-08-10] MEDS ORDERED: DEXTROSE 50%-WATER 50 ML DISP.SYRIN IV PRN (09:00)
--- NOTE | 2019-08-10 13:38 | NUR ---
ICU/RN: HD STARTED. VSS, PT ON 1MCG LEVO, WILL CONTINUE TO MONITOR.
--- NOTE | 2019-08-10 15:45 | NUR ---
ICU/RN: HD DONE, NOTHING OUT, CLEANING ONLY. VSS. PT REMAINS ON LOW DOSE LEVO
--- NOTE | 2019-08-10 16:00 | NUR ---
ICU/RN: EPISODE OF VOMITING. PT SUCTIONED.
--- NOTE | 2019-08-10 17:00 | NUR ---
ICU/RN: TEMP 101 NOTED, TYLENOL GIVEN. COOLING MEASURES TAKEN. WILL REASSESS
[2019-08-10] MEDS: ACETAMINOPHEN 325 MG TABLET MC PRN (17:11)
[2019-08-10] MEDS: PHENYLEPHRINE 80 MG in IV NS 0.9% 250 ML IV PRN (17:12)
--- NOTE | 2019-08-10 17:12 | NUR ---
ICU/RN: PER PT'S PRESSOR SWITCHED FROM LEVO TO HENRIK TO CONTROL HR.
--- NOTE | 2019-08-10 18:45 | NUR ---
ICU/RN ENDING NOTES,AM REPORT WILL BE ENDORSED TO NIGHT NURSE FOR MARKELL. ALL NEEDS ATTENDED TO, SAFETY MEASURES TAKEN, BED IN LOW POSITION, SIDE RAILS UP, CALL LIGHT WITHIN REACH. PT VENT TO TRACH, NO DISTRESS NOTED. PT FEBRILE, TYLENOL GIVEN AND COOLING MEASURES TAKEN. PT ON HENRIK FOR BP SUPPORT AT 40MCG. WILL CONTINUE CARE.
[2019-08-10] MEDS: AMIKACIN 300 MG in IV D5W 100 ML IV PRN (19:21)
--- NOTE | 2019-08-10 19:21 | NUR ---
ICU/RN: POST HD AMIKACIN HELD, TROUGH 19.3. PHARMACY NOTIFIED.
[2019-08-11] VITALS (77 sets, daily range): BP systolic 69–156; BP diastolic 28–85
[2019-08-11] MEDS: INSULIN REGULAR, HUMAN 100 UNIT/ML 3 ML VIAL SQ PRN ×4 (01:07→17:33)
--- NOTE | 2019-08-11 01:30 | NUR ---
PT RECEIVED TRACHED WITH SHILEY 8 ON VENT WITH NOTED SETTINGS. VENT ALARMS CHECKED AND AUDIBLE. DIETARY AIDE TEACHER CUFF PRESSURE CHECKED. SX DONE. AMBU BAG @HOB . WILL CONTINUE TO MONITOR T/O SHIFT
[2019-08-11 05:10] LABS: BASOPHILS # (AUTO) 0.1 /CMM (0.0-0.2); BASOPHILS % (AUTO) 0.5 % (0.0-2.0); EOSINOPHILS % (AUTO) 2.8 % (0.0-6.0); HEMATOCRIT 32 % (39-51); HEMOGLOBIN 9.6 g/dL (13.5-17.5); LYMPHOCYTES # (AUTO) 3.5 /CMM (0.8-4.8); MEAN CORPUSCULAR HGB CONC 30 g/dl (31.0-36.0); MEAN CORPUSCULAR VOLUME 92 fL (80-96); MONOCYTES # (AUTO) 1.6 /CMM (0.1-1.30); MONOCYTES % (AUTO) 6.5 % (2.0-12.0); NEUTROPHILS # (AUTO) 19.2 /CMM (1.8-8.9); NEUTROPHILS % (AUTO) 76.2 % (43.0-81.0); PLATELET COUNT (AUTO) 512 /CMM (150-450); RED BLOOD CELL COUNT(AUTO) 3.47 MIL/uL (4.5-6.0); WHITE BLOOD COUNT (AUTO) 25.2 K/uL (4.3-11.0)
[2019-08-11 05:24] LABS: CALCIUM, SERUM 9.8 mg/dL (8.5-10.1); CREATININE 4.1 mg/dL (0.6-1.3); POTASSIUM 3.6 mmol/L (3.5-5.1)
[2019-08-11] MEDS: BLOOD SUGAR DIAGNOSTIC 1 EACH STRIP IN SCH ×4 (06:18→17:34)
--- NOTE | 2019-08-11 08:14 | NUR ---
received pt from manager night, obtunded, ST, on the vent, lungs partially congested, no edema, GT to feeding, tolerates well, HD pt, rectal tube - diarrhea, v/s stable, no pain, pt turned and repositioned.
[2019-08-11] MEDS: ASPIRIN EC 81 MG TABLET.DR PO SCH (08:35)
[2019-08-11] MEDS: LACTOBACILLUS RHAMNOSUS GG 1 EACH CAP.SPRINK GT SCH ×2 (08:35→17:31)
[2019-08-11] MEDS: PROSOURCE / PROSTAT (PYXIS) 30 ML UDC GT SCH ×2 (08:36→17:31)
[2019-08-11] MEDS: DAKINS QUARTER STRENGTH (0.125%) 480 ML BOTTLE TOP SCH (08:37)
[2019-08-11] MEDS: TRIAMCINOLONE ACETONIDE 0.1% CR 15 GM TUBE TP SCH ×2 (08:37→21:14)
[2019-08-11] MEDS: AMMONIUM LACTATE 227 GM BOTTLE TP SCH ×2 (08:38→21:14)
[2019-08-11] MEDS: Z GUARD REMEDY 4 OZ OINT TP SCH ×2 (08:38→21:15)
[2019-08-11] MEDS: HEPARIN SODIUM, PORCINE 5000 UNITS/1 ML VIAL SQ SCH ×2 (08:39→21:14)
[2019-08-11] MEDS: ONDANSETRON HCL/PF 4 MG/2 ML VIAL IVP PRN (09:36)
--- NOTE | 2019-08-11 17:24 | NUR ---
pt is resting in the bed, ST, obtunded, on erin at 10mcg, v/s stable, no pain, pt cleaned, changed and repositioned q2hrs.
--- NOTE | 2019-08-11 19:30 | NUR ---
FUEL CELL BUILDER RCD PT W/DX SEPSIS; PT IS OBTUNDED. ST ON MONITOR. PORTEX 8 W/VENT SETTINGS AC 18 500 40%; RENDERED TRACH AND ORAL CARE. MIN WHITE THIN SECRETIONS NOTED. ANURIC; RECTAL TUBE IN PLACE. ABDIEL MIDLINE PATENT. NEPRO @ 40 ML/HR NO RESIDUAL NOTED AT THIS TIME. CONTINUE TO MONITOR.
--- NOTE | 2019-08-11 20:30 | NUR ---
CAR STEREO INSTALLERADVANCE SCOUT AT BEDSIDE; UPDATED ON PLAN OF CARE. VERBALIZE UNDERSTANDING.
[2019-08-12] VITALS (59 sets, daily range): BP systolic 67–167; BP diastolic 32–76
[2019-08-12] MEDS: BLOOD SUGAR DIAGNOSTIC 1 EACH STRIP IN SCH ×4 (00:40→17:00)
[2019-08-12] MEDS: INSULIN REGULAR, HUMAN 100 UNIT/ML 3 ML VIAL SQ PRN ×3 (00:41→11:26)
[2019-08-12] MEDS: ACETAMINOPHEN 325 MG TABLET MC PRN (02:09)
[2019-08-12 05:00] LABS: BASOPHILS # (AUTO) 0.3 /CMM (0.0-0.2); BASOPHILS % (AUTO) 1.6 % (0.0-2.0); EOSINOPHILS % (AUTO) 3.9 % (0.0-6.0); HEMATOCRIT 28 % (39-51); HEMOGLOBIN 8.4 g/dL (13.5-17.5); LYMPHOCYTES # (AUTO) 2.7 /CMM (0.8-4.8); LYMPHOCYTES % (AUTO) 14.5 % (20.0-44.0); MEAN CORPUSCULAR HGB CONC 30 g/dl (31.0-36.0); MEAN CORPUSCULAR VOLUME 90 fL (80-96); MONOCYTES # (AUTO) 1.3 /CMM (0.1-1.30); MONOCYTES % (AUTO) 6.9 % (2.0-12.0); NEUTROPHILS # (AUTO) 13.4 /CMM (1.8-8.9); NEUTROPHILS % (AUTO) 73.1 % (43.0-81.0); PLATELET COUNT (AUTO) 557 /CMM (150-450); RED BLOOD CELL COUNT(AUTO) 3.08 MIL/uL (4.5-6.0); WHITE BLOOD COUNT (AUTO) 18.3 K/uL (4.3-11.0)
[2019-08-12 05:21] LABS: CALCIUM, SERUM 9.9 mg/dL (8.5-10.1); CREATININE 4.8 mg/dL (0.6-1.3); POTASSIUM 3.7 mmol/L (3.5-5.1)
--- NOTE | 2019-08-12 08:09 | NUR ---
received pt from well service floorperson, obtunded, ST, on the vent, lungs partially congested, GT to feeding tolerates well, HD patient, rectal tube in - diarrhea, v/s stable, no pain, pt turned and repositioned.
[2019-08-12] MEDS: LACTOBACILLUS RHAMNOSUS GG 1 EACH CAP.SPRINK GT SCH ×2 (08:30→16:32)
[2019-08-12] MEDS: ASPIRIN EC 81 MG TABLET.DR PO SCH (08:30)
[2019-08-12] MEDS: DAKINS QUARTER STRENGTH (0.125%) 480 ML BOTTLE TOP SCH (08:30)
[2019-08-12] MEDS: PROSOURCE / PROSTAT (PYXIS) 30 ML UDC GT SCH ×2 (08:30→16:33)
[2019-08-12] MEDS: AMMONIUM LACTATE 227 GM BOTTLE TP SCH ×2 (08:32→21:21)
[2019-08-12] MEDS: TRIAMCINOLONE ACETONIDE 0.1% CR 15 GM TUBE TP SCH ×2 (08:32→21:21)
[2019-08-12] MEDS: HEPARIN SODIUM, PORCINE 5000 UNITS/1 ML VIAL SQ SCH ×2 (08:33→21:18)
[2019-08-12] MEDS: Z GUARD REMEDY 4 OZ OINT TP SCH ×2 (08:33→21:21)
--- NOTE | 2019-08-12 10:29 | NUR ---
RADHA informed , Janet (Hungarian speaking only) [phone] that the pt.s bed hold was up yesterday and as of today [facility] will no longer be covering bed hold costs. RADHA asked family if they would be interested in paying for bed hold cost $988.42 out of pocket. Family declined stating, We would if we could, but we cannot afford to pay that out of pocket. Janet thanked RADHA for checking in and stated she is thankful for [facility] as they have provided great care for the pt. RADHA asked the pt.s , Janet Bravo and verified if the Dr. Dia has updated them about the pt. Per Janet, Dr. Dia has yet to call them. RADHA provided family with Dr. Mcdonald office number: . Family said they would reach out to . RADHA contacted ICU Charge Nurse, Chrystal to inform her that the family has has not spoken to family. Chrystal stated that is off. However, per Chrystal, this is Boo Benson's pt. at the moment. Per Chrystal, the pt. is no longer tolerating dialysis and family needs to be informed. Per Chrystal, she will follow up and ensure that pt. family is updated and educated about end of life care.
[2019-08-12] MEDS: ALBUMIN 25% 25 GM in PREMIX 1 EA IV PRN (15:32)
--- NOTE | 2019-08-12 16:11 | NUR ---
pt is resting in the bed, obtunded, ST, having HD, tolerates feeding, v/s stable, no pain, pt cleaned, changed and repositioned q2hrs.
[2019-08-12] MEDS: LORAZEPAM INJ 2 MG/ML VIAL IV PRN (16:47)
[2019-08-12] MEDS: ACETAMINOPHEN 650 MG/20.3 ML UDC NG PRN (17:43)
[2019-08-12] MEDS ORDERED: DILTIAZEM HCL IV 125 MG in IV NS 0.9% 100 ML IV PRN (18:00)
[2019-08-12] MEDS: PHENYLEPHRINE 80 MG in IV NS 0.9% 250 ML IV PRN (18:07)
[2019-08-12] MEDS: ONDANSETRON HCL/PF 4 MG/2 ML VIAL IVP PRN (18:33)
[2019-08-12] MEDS: METRONIDAZOLE 500 MG TABLET GT SCH (21:19)
--- NOTE | 2019-08-12 22:00 | NUR ---
ENTRY OPERATOR TITRATED HENRIK OFF PER PROTOCOL. CONTINUE TO MONITOR.
[2019-08-13] VITALS (57 sets, daily range): BP systolic 79–179; BP diastolic 40–90
[2019-08-13] MEDS: BLOOD SUGAR DIAGNOSTIC 1 EACH STRIP IN SCH ×5 (00:34→23:39)
[2019-08-13] MEDS: ACETAMINOPHEN 650 MG/20.3 ML UDC NG PRN ×2 (01:33→16:13)
[2019-08-13] MEDS: INSULIN REGULAR, HUMAN 100 UNIT/ML 3 ML VIAL SQ PRN ×4 (01:35→23:41)
[2019-08-13] MEDS: METRONIDAZOLE 500 MG TABLET GT SCH ×3 (04:09→21:00)
[2019-08-13] MEDS: MORPHINE SULFATE INJ 2 MG/ML DISP.SYRIN IV PRN (04:10)
[2019-08-13 05:18] LABS: BASOPHILS # (AUTO) 0.1 /CMM (0.0-0.2); BASOPHILS % (AUTO) 0.2 % (0.0-2.0); EOSINOPHILS % (AUTO) 0.5 % (0.0-6.0); HEMATOCRIT 29 % (39-51); HEMOGLOBIN 8.4 g/dL (13.5-17.5); LYMPHOCYTES # (AUTO) 2.7 /CMM (0.8-4.8); MEAN CORPUSCULAR HGB CONC 29 g/dl (31.0-36.0); MEAN CORPUSCULAR VOLUME 90 fL (80-96); MONOCYTES # (AUTO) 3.6 /CMM (0.1-1.30); MONOCYTES % (AUTO) 9.4 % (2.0-12.0); NEUTROPHILS # (AUTO) 32.2 /CMM (1.8-8.9); NEUTROPHILS % (AUTO) 82.9 % (43.0-81.0); PLATELET COUNT (AUTO) 481 /CMM (150-450)
[2019-08-13 05:35] LABS: WHITE BLOOD COUNT (AUTO) 38.8 K/uL (4.3-11.0)
[2019-08-13 05:36] LABS: CALCIUM, SERUM 9.3 mg/dL (8.5-10.1); CREATININE 4.4 mg/dL (0.6-1.3); POTASSIUM 3.5 mmol/L (3.5-5.1)
[2019-08-13 06:21] LABS: BAND % (MANUAL) 2 % (0.0-5.0); EOSINOPHILS % (MANUAL) 1 % (0-4); LYMPHOCYTES % (MANUAL) 6 % (16-48); MONOCYTES % (MANUAL) 7 % (0-11.0); NEUTROPHILS % (MANUAL) 84 (42-76)
--- NOTE | 2019-08-13 06:50 | NUR ---
OPERATION SHIFT SUPERVISOR BLOOD GLUCOSE 423 REPEAT BY LAB 409; COVERAGE GIVEN PER PROTOCOL. NOTIFIED MD W/NO NEW ORDERS. CONTINUE TO MONITOR. [phone]
--- NOTE | 2019-08-13 08:15 | NUR ---
received pt from slot shift supervisor, obtunded, ST, on vent, lungs partially congested, no edema, GT to feeding tolerates well, HD patient, rectal tube diarrhea, v/s stable, no pain, pt turned and repositioned.
[2019-08-13] MEDS: ASPIRIN EC 81 MG TABLET.DR PO SCH (08:59)
[2019-08-13] MEDS: HEPARIN SODIUM, PORCINE 5000 UNITS/1 ML VIAL SQ SCH ×2 (09:00→21:01)
[2019-08-13] MEDS: PROSOURCE / PROSTAT (PYXIS) 30 ML UDC GT SCH ×2 (09:01→16:48)
[2019-08-13] MEDS: LACTOBACILLUS RHAMNOSUS GG 1 EACH CAP.SPRINK GT SCH ×2 (09:01→16:48)
[2019-08-13] MEDS: Z GUARD REMEDY 4 OZ OINT TP SCH ×2 (09:02→21:02)
[2019-08-13] MEDS: DAKINS QUARTER STRENGTH (0.125%) 480 ML BOTTLE TOP SCH (09:02)
[2019-08-13] MEDS: TRIAMCINOLONE ACETONIDE 0.1% CR 15 GM TUBE TP SCH ×2 (09:02→21:02)
[2019-08-13] MEDS: AMMONIUM LACTATE 227 GM BOTTLE TP SCH ×2 (09:02→21:03)
[2019-08-13] MEDS: ONDANSETRON HCL/PF 4 MG/2 ML VIAL IVP PRN (16:13)
--- NOTE | 2019-08-13 16:28 | NUR ---
pt is resting in the bed, obtunded, no acute distress during the day, tolerates feeding, v/s stable, no pain, pt cleaned, changed and repositioned q2hrs.
[2019-08-13] MEDS: NEPRO 1,000 ML BOTTLE GT PRN (19:43)
[2019-08-13] MEDS: PHENYLEPHRINE 80 MG in IV NS 0.9% 250 ML IV PRN (20:47)
--- NOTE | 2019-08-13 20:50 | NUR ---
SENIOR NETWORK SECURITY ENGINEER: RESTARTED NEOSYNEPHRINE AT 20MCG/MIN FOR BP SUPPORT. TOLERATING VENT SETTINGS ORDERED WT NO ACUTE DISTRESS. NO EVIDENCE OF DISCOMFORT. AFEBRILE. SR-ST WT HR IN LOW 100s. TOLERATING GTF WT NO RESIDUAL. HOB AT 35 DEGREES. SAFETY PRECAUTION NOTED. WILL CONTINUE TO MONITOR.
[2019-08-14] VITALS (53 sets, daily range): BP systolic 75–184; BP diastolic 36–97
--- NOTE | 2019-08-14 | NUR ---
DIALYSIS CLINICAL MANAGER: NEOSYNEPHRINE HELD AT THIS TIME FOR SBP WNL. WILL CONTINUE TO MONITOR.
[2019-08-14] MEDS: METRONIDAZOLE 500 MG TABLET GT SCH ×3 (05:20→20:06)
[2019-08-14 05:29] LABS: BASOPHILS # (AUTO) 0.2 /CMM (0.0-0.2); BASOPHILS % (AUTO) 0.9 % (0.0-2.0); EOSINOPHILS % (AUTO) 4.1 % (0.0-6.0); HEMATOCRIT 29 % (39-51); HEMOGLOBIN 8.5 g/dL (13.5-17.5); LYMPHOCYTES # (AUTO) 2.6 /CMM (0.8-4.8); LYMPHOCYTES % (AUTO) 11.3 % (20.0-44.0); MEAN CORPUSCULAR HGB CONC 30 g/dl (31.0-36.0); MEAN CORPUSCULAR VOLUME 90 fL (80-96); MONOCYTES # (AUTO) 1.2 /CMM (0.1-1.30); MONOCYTES % (AUTO) 5.1 % (2.0-12.0); NEUTROPHILS # (AUTO) 18.4 /CMM (1.8-8.9); NEUTROPHILS % (AUTO) 78.6 % (43.0-81.0); PLATELET COUNT (AUTO) 577 /CMM (150-450); RED BLOOD CELL COUNT(AUTO) 3.19 MIL/uL (4.5-6.0); WHITE BLOOD COUNT (AUTO) 23.4 K/uL (4.3-11.0)
[2019-08-14] MEDS: BLOOD SUGAR DIAGNOSTIC 1 EACH STRIP IN SCH ×3 (05:29→18:36)
[2019-08-14] MEDS: INSULIN REGULAR, HUMAN 100 UNIT/ML 3 ML VIAL SQ PRN ×3 (05:31→18:38)
[2019-08-14 05:41] LABS: CALCIUM, SERUM 9.5 mg/dL (8.5-10.1); POTASSIUM 3.4 mmol/L (3.5-5.1)
--- NOTE | 2019-08-14 06:30 | NUR ---
HAND ZIPPER TRIMMER: NO SIGNIFICANT MARKELL. REMAINED AFEBRILE. STILL OFF HENRIK. DRIP. RECEIVED BUN=96, PT UNABLE TO TOLERATE HD YESTERDAY. NO NEED TO CONTACT MD AT THIS TIME. WILL ENDORSE TO DAY SHIFT FOR CONTINUITY OF CARE.
--- NOTE | 2019-08-14 07:30 | NUR ---
RN NOTE: RECEIVED PATIENT IN BED, ABLE TO SPONTANEOUSLY OPEN HIS EYES, NONVERBAL, VENT-TRACH DEPENDENT SATURATING 98% ON CURRENT VENT SETTING. HOB ELEVATED. ST ON THE GAMEPLAY ENGINEER. HD CATHETER SITE ON THE (R) CHEST WALL. FOR HD TODAY. (L) UA MIDLINE NOTED INTACT AND PATENT WITH TRANSPARENT DRESSING CLEAN AND DRY. GT FEEDING OF NEPHRO @40ML/HR TOLERATING WELL. BED ALARMED AND LOCKED AT ALL TIMES. CALL LIGHT WITHIN REACH. NEEDS ANTICIPATED. CONTACT ISOLATION OBSERVED DUE TO THE (L) STUMP WOUND AND BLOOD CULTURE.
[2019-08-14] MEDS: ASPIRIN EC 81 MG TABLET.DR PO SCH (08:16)
[2019-08-14] MEDS: LACTOBACILLUS RHAMNOSUS GG 1 EACH CAP.SPRINK GT SCH ×2 (08:16→16:01)
[2019-08-14] MEDS: HEPARIN SODIUM, PORCINE 5000 UNITS/1 ML VIAL SQ SCH ×2 (08:20→20:07)
[2019-08-14] MEDS: PROSOURCE / PROSTAT (PYXIS) 30 ML UDC GT SCH ×2 (08:20→16:01)
[2019-08-14] MEDS: AMMONIUM LACTATE 227 GM BOTTLE TP SCH ×2 (08:28→20:08)
[2019-08-14] MEDS: DAKINS QUARTER STRENGTH (0.125%) 480 ML BOTTLE TOP SCH (08:28)
[2019-08-14] MEDS: Z GUARD REMEDY 4 OZ OINT TP SCH ×2 (08:28→20:09)
[2019-08-14] MEDS: TRIAMCINOLONE ACETONIDE 0.1% CR 15 GM TUBE TP SCH ×2 (08:28→20:10)
--- NOTE | 2019-08-14 08:30 | NUR ---
RN NOTE: DR. ARRIAZA MADE ROUNDS AND GAVE HIM AN UPDATE REGARDING THE PATIENT'S CONDITION.
[2019-08-14] MEDS: ACETAMINOPHEN 650 MG/20.3 ML UDC NG PRN ×2 (08:45→16:25)
--- NOTE | 2019-08-14 09:54 | NUR ---
RN NOTE: DR. JACK WAS MADE AWARE OF THE EKG RESULT= SINUS TACY HR 117. MD WITH NO NEW ORDER AT THIS TIME.
--- NOTE | 2019-08-14 10:24 | NUR ---
RN NOTE: SEN BY DR. LUNDBERG AND GAVE HIM AN UPDATE THAT THE PATIENT WAS OFF THE NEOSYNEPHRINE SINCE MIDNIGHT. SYSTOLIC BLOOD PRESSURE HAS BEEN IN THE 100'S, BUT TACHYCARDIC. PER MD, CONTINUE TO MONITOR THE PATIENT IN 24 HR OFF THE PRESSORS AND POSSIBLE DISCHARGE BACK TO [facility] IF THERE'S NO CHANGE IN THE CONDITION.
[2019-08-14] MEDS: ONDANSETRON HCL/PF 4 MG/2 ML VIAL IVP PRN (12:15)
--- NOTE | 2019-08-14 12:48 | NUR ---
RN NOTE: HEMODIALYSIS WAS STOPPED DUE TO THE PATIENT'S HEART RATE OF 130'S. DR. DYLAN POLO WAS AWARE AND ORDERED THE HD NURSE TO STOP THE HD.
--- NOTE | 2019-08-14 12:49 | NUR ---
RN NOTE: DR. DYLAN POLO ORDERED 2 SETS OF BLOOD CULTURES FROM THE HD CATHETER. ORDER NOTED AND CARRIED OUT.
[2019-08-14] MEDS: PHENYLEPHRINE 80 MG in IV NS 0.9% 250 ML IV PRN (17:48)
--- NOTE | 2019-08-14 19:30 | NUR ---
RN NOTE: BEDSIDE REPORT WAS GIVEN TO PM SHIFT NURSE FOR CONTINUITY OF CARE. PATIENT HAD 2 EPISODES OF LOW GRADE FEVER AND COOLING MEASURES WERE IMPLEMENTED AND TYLENOL WAS ADMINISTERED PER MD ORDER. PATIENT'S AND DAUGHTER INGRID WAS AT THE BEDSIDE AND DR. LUNDBERG WAS CONTACTED IN ORDER TO SPEAK WITH THE DAUGHTER REGARDING THE PLAN OF CARE OF THE PATIENT. PER DAUGHTER INGRID, DR. LUNDBERG WOULD WANT TO SPEAK WITH THEM AGAIN BY TOMORROW TO FURTHER ESTABLISH THE PLAN OF CARE FOR THE PATIENT. PATIENT WAS RE-STARTED AGAIN WITH NEOSYNEPHRINE PER MD ORDER DUE TO THE SUSTAINING LOW BP AT 1700 TODAY. HD WAS DONE FOR AT LEAST 1 HOUR AND THE HD NURSE HAD TO STOP IT PER DR. DYLAN POLO'S ORDER DUE TO THE ELEVATED HR 130'S AND ELEVATED SBP 180'S. SPOKE WITH NAIMA SOLOMON REGARDING THE POST HD ANTIBIOTICS AND PER PHARMACIST IT'S OK TO NOT GIVE THE ANTIBIOTICS. WILL RECHECK THE LEVELS AGAIN BY TOMORROW PER JUANITO.
[2019-08-14] MEDS: NEPRO 1,000 ML BOTTLE GT PRN (23:09)
[2019-08-15] VITALS (40 sets, daily range): BP systolic 92–150; BP diastolic 41–83
[2019-08-15] MEDS: BLOOD SUGAR DIAGNOSTIC 1 EACH STRIP IN SCH ×5 (01:05→23:41)
[2019-08-15] MEDS: INSULIN REGULAR, HUMAN 100 UNIT/ML 3 ML VIAL SQ PRN ×5 (01:24→23:42)
--- NOTE | 2019-08-15 05:30 | NUR ---
RN NOTES GOT A CALL FROM LAB PATIENT'S BLOOD IS POSITIVE FOR GRAM NEGATIVE RODS. WILL ENDORSE TO AM RN.
[2019-08-15] MEDS: METRONIDAZOLE 500 MG TABLET GT SCH ×2 (05:51→13:11)
--- NOTE | 2019-08-15 07:20 | NUR ---
MASTIC WORKER OPENING NOTE RECEIVED REPORT FROM PM NURSE.PATIENT IN BED, ABLE TO OPEN HIS EYES SPONTANEOUSLY, NONVERBAL, VENT-TRACH DEPENDENT SATURATING 100% TOLERATING SETTINGS WELL. HOB ELEVATED. SR ON THE CLINICAL DIETITIAN.HR 98.HD CATHETER ON THE (R) CHEST WALL. AWAITING HD TODAY. (L) UA MIDLINE NOTED INTACT AND PATENT WITH TRANSPARENT DRESSING CLEAN AND DRY. GT FEEDING OF NEPHRO @40ML/HR . SAFETY AND ASPIRATION PRECAUTIONS IN PLACE.BED IS LOW AND IN LOCKED POSITION. CALL LIGHT WITHIN REACH. BED ALARM ON.SRX3.ON CONTACT ISOLATION .WILL CONTINUE TO MONITOR.
[2019-08-15] MEDS: ASPIRIN EC 81 MG TABLET.DR PO SCH (08:11)
[2019-08-15] MEDS: LACTOBACILLUS RHAMNOSUS GG 1 EACH CAP.SPRINK GT SCH ×2 (08:11→16:12)
[2019-08-15] MEDS: PROSOURCE / PROSTAT (PYXIS) 30 ML UDC GT SCH ×2 (08:11→16:12)
[2019-08-15] MEDS: ACETAMINOPHEN 650 MG/20.3 ML UDC NG PRN (08:11)
[2019-08-15] MEDS: AMMONIUM LACTATE 227 GM BOTTLE TP SCH ×2 (08:12→20:50)
[2019-08-15] MEDS: TRIAMCINOLONE ACETONIDE 0.1% CR 15 GM TUBE TP SCH ×2 (08:12→20:49)
[2019-08-15] MEDS: DAKINS QUARTER STRENGTH (0.125%) 480 ML BOTTLE TOP SCH (08:12)
[2019-08-15] MEDS: Z GUARD REMEDY 4 OZ OINT TP SCH ×2 (08:13→20:47)
--- NOTE | 2019-08-15 09:09 | NUR ---
ORDERLIES TEACHER NOTE SEEN BY .UPDATED ABOUT PATIENT CONDITION WITH LABS.NNO.OK TO GIVE HEPARIN SQ.PTT>170 08/05/19.OK TO TRANSFER TO [facility] AFTER DIALYSIS.WILL CONTINUE TO MONITOR.
[2019-08-15] MEDS: HEPARIN SODIUM, PORCINE 5000 UNITS/1 ML VIAL SQ SCH ×2 (09:40→20:46)
--- NOTE | 2019-08-15 12:05 | NUR ---
SW checked in with pt.s , Janet Bravo [phone] to inquire about how family is coping with patients plan of care. Per Janet, she and her daughter, Ct wish the pt. to remain full code. Janet stated, We will take as much time as God grants us with him (patient), we believe our God gives second chances and who am I to take that away from him (patient). Family has unrealistic expectations as evidenced by Janet stating, I have seen people in worse condition that my fully recover and walk out of the hospital. SW educated Janet about hospice & comfort care. Janet stated that they do not want hospice or comfort care for the pt. as of now. SW will be available to support family as needed. RADHA will continue to collaborate with IDT to ensure safe and proper plan of care.
[2019-08-15] MEDS: MORPHINE SULFATE INJ 2 MG/ML DISP.SYRIN IV PRN (13:11)
[2019-08-15] MEDS: NYSTATIN TOP POWDER 15 GM BOTTLE TP SCH ×2 (15:39→16:13)
--- NOTE | 2019-08-15 19:53 | NUR ---
MELT HOUSE CENTRIFUGAL OPERATOR. INITIAL ASSESSMENT. RECEIVED THE PT REST ON THE BED, OPEN EYES, DOES NOT FOLLOW COMMANDS. TRACH TO VENT CONNECTED. PORTEX #8 ,AC 18,TV 500CARDIAC MONITOR SHOWING S TACH, GT INTACT, [id number], IV RT UPPER ARM MID LINE SALINE LOCK. FLEXA SEAL INTACT, SAVI AKA, WILL CONTINUE TO MONITOR VITALS.MELT HOUSE CENTRIFUGAL OPERATOR OPENING NOTE RECEIVED REPORT FROM PM NURSE.PATIENT IN BED, ABLE TO OPEN HIS EYES SPONTANEOUSLY, NONVERBAL, VENT-TRACH DEPENDENT SATURATING 100% TOLERATING SETTINGS WELL. HOB ELEVATED. SR ON THE RESEARCH ADVISOR.HR 98.HD CATHETER ON THE (R) CHEST WALL. AWAITING HD TODAY. (L) UA MIDLINE NOTED INTACT AND PATENT WITH TRANSPARENT DRESSING CLEAN AND DRY. GT FEEDING OF NEPHRO @40ML/HR . SAFETY AND ASPIRATION PRECAUTIONS IN PLACE.BED IS LOW AND IN LOCKED POSITION. CALL LIGHT WITHIN REACH. BED ALARM ON.SRX3.ON CONTACT ISOLATION .WILL CONTINUE TO MONITOR.
[2019-08-16] VITALS (70 sets, daily range): BP systolic 52–173; BP diastolic 24–111
--- NOTE | 2019-08-16 04:05 | NUR ---
curriculum counselor. am care, oral care, bed bath given.linen changed, remaining same vent setting tolerated well. sat 98%, no acute distress noted, motion picture projectionist apprentice showing nsr, iv rt upper arm mid line. saline lock. hob elevated, gt feeding tolerated well. flexa seal intact, turn and reposition q2h. will continue to monitor vitals.
[2019-08-16 04:25] LABS: BASOPHILS # (AUTO) 0.2 /CMM (0.0-0.2); BASOPHILS % (AUTO) 0.7 % (0.0-2.0); EOSINOPHILS % (AUTO) 3.9 % (0.0-6.0); HEMATOCRIT 28 % (39-51); HEMOGLOBIN 8.3 g/dL (13.5-17.5); LYMPHOCYTES # (AUTO) 2.8 /CMM (0.8-4.8); LYMPHOCYTES % (AUTO) 11.8 % (20.0-44.0); MEAN CORPUSCULAR HGB CONC 30 g/dl (31.0-36.0); MEAN CORPUSCULAR VOLUME 90 fL (80-96); MONOCYTES # (AUTO) 1.4 /CMM (0.1-1.30); NEUTROPHILS # (AUTO) 18.1 /CMM (1.8-8.9); NEUTROPHILS % (AUTO) 77.6 % (43.0-81.0); PLATELET COUNT (AUTO) 536 /CMM (150-450); RED BLOOD CELL COUNT(AUTO) 3.04 MIL/uL (4.5-6.0); WHITE BLOOD COUNT (AUTO) 23.4 K/uL (4.3-11.0)
[2019-08-16 04:36] LABS: CALCIUM, SERUM 9.2 mg/dL (8.5-10.1); CREATININE 5.5 mg/dL (0.6-1.3); POTASSIUM 3.2 mmol/L (3.5-5.1)
[2019-08-16] MEDS: BLOOD SUGAR DIAGNOSTIC 1 EACH STRIP IN SCH ×3 (05:18→17:29)
[2019-08-16] MEDS: INSULIN REGULAR, HUMAN 100 UNIT/ML 3 ML VIAL SQ PRN ×2 (05:21→17:29)
[2019-08-16] MEDS: ACETAMINOPHEN 650 MG/20.3 ML UDC NG PRN ×2 (05:41→13:27)
--- NOTE | 2019-08-16 08:00 | NUR ---
received pt from kettle operator, obtunded, SR, on the vent, lung partially congested, R hand and arm edema, GT to feeding tolerates well, rectal tube in - diarrhea, HD patient, v/s stable, no pain, pt turned and repositioned.
[2019-08-16] MEDS: DAKINS QUARTER STRENGTH (0.125%) 480 ML BOTTLE TOP SCH (08:24)
[2019-08-16] MEDS: AMMONIUM LACTATE 227 GM BOTTLE TP SCH ×2 (08:24→21:44)
[2019-08-16] MEDS: TRIAMCINOLONE ACETONIDE 0.1% CR 15 GM TUBE TP SCH ×2 (08:24→21:46)
[2019-08-16] MEDS: NYSTATIN TOP POWDER 15 GM BOTTLE TP SCH ×2 (08:25→17:00)
[2019-08-16] MEDS: Z GUARD REMEDY 4 OZ OINT TP SCH ×2 (08:25→21:46)
[2019-08-16] MEDS: ASPIRIN EC 81 MG TABLET.DR PO SCH (08:28)
[2019-08-16] MEDS: LACTOBACILLUS RHAMNOSUS GG 1 EACH CAP.SPRINK GT SCH ×2 (08:28→17:00)
[2019-08-16] MEDS: PROSOURCE / PROSTAT (PYXIS) 30 ML UDC GT SCH ×2 (08:28→17:00)
[2019-08-16] MEDS: HEPARIN SODIUM, PORCINE 5000 UNITS/1 ML VIAL SQ SCH (08:29)
[2019-08-16] MEDS: NEPRO 1,000 ML BOTTLE GT PRN (08:39)
[2019-08-16] MEDS: ALBUMIN 25% 25 GM in PREMIX 1 EA IV PRN (10:16)
[2019-08-16] MEDS: PHENYLEPHRINE 80 MG in IV NS 0.9% 250 ML IV PRN (11:41)
--- NOTE | 2019-08-16 12:16 | NUR ---
pt is having HD, SBP 72/53, pt started on erin.
[2019-08-16] MEDS: AMIKACIN 300 MG in IV D5W 100 ML IV PRN (13:15)
[2019-08-16] MEDS: ONDANSETRON HCL/PF 4 MG/2 ML VIAL IVP PRN (13:31)
--- NOTE | 2019-08-16 16:50 | NUR ---
pt is resting in the bed, ST, on erin at 80mcg, HD 1L removed, tolerates feeding, v/s stable, no pain, pt cleaned, changed and repositioned q2hrs.
--- NOTE | 2019-08-16 19:00 | NUR ---
RECEIVED PATIENT WITH TRACHE. TO THE VENTILATOR ON AC MODE.OBTUNDED,EYES OPEN BUT NO EYE CONTACT,GRIMACES TO PAIN,+ COUGH AND GAG,NO MOVEMENT OF EXTREMITES.BILATERAL AKA WITH LEFT STUMP WOUND AT SURGICAL SITE. GENERALIZED EDEMA. G TUBE FEEDING, ASPIRATION PRECAUTION IMPLEMENTED.NOT IN ANY RESPIRATORY DISTRESS.COMFORT CARE DONE, BACK CARE DONE.
--- NOTE | 2019-08-16 20:00 | NUR ---
BP STABLE,NEOSYNEPHRINE WEANED DOWN TOLERATED.
[2019-08-17] VITALS (65 sets, daily range): BP systolic 80–154; BP diastolic 32–85
--- NOTE | 2019-08-17 | NUR ---
STATUS UNCHANGED,NEOSYNEPHRINE DRIP NOW @ 10 MCG/MIN.
[2019-08-17] MEDS: BLOOD SUGAR DIAGNOSTIC 1 EACH STRIP IN SCH ×5 (01:34→23:20)
[2019-08-17] MEDS: INSULIN REGULAR, HUMAN 100 UNIT/ML 3 ML VIAL SQ PRN ×5 (01:38→23:24)
--- NOTE | 2019-08-17 04:00 | NUR ---
NO CHANGE IN STATUS, BP DROP INTO THE 80'S WHEN HENRIK DRIP DECREASED TO 5 MCG/MIN. NOW PATIENT BACK TO 20 MCG/MIN.
[2019-08-17 04:40] LABS: BASOPHILS # (AUTO) 0.2 /CMM (0.0-0.2); BASOPHILS % (AUTO) 0.5 % (0.0-2.0); EOSINOPHILS % (AUTO) 1.5 % (0.0-6.0); HEMATOCRIT 30 % (39-51); HEMOGLOBIN 9.2 g/dL (13.5-17.5); LYMPHOCYTES # (AUTO) 3.1 /CMM (0.8-4.8); LYMPHOCYTES % (AUTO) 8.9 % (20.0-44.0); MEAN CORPUSCULAR HGB CONC 30 g/dl (31.0-36.0); MEAN CORPUSCULAR VOLUME 91 fL (80-96); MONOCYTES # (AUTO) 2.1 /CMM (0.1-1.30); NEUTROPHILS # (AUTO) 28.8 /CMM (1.8-8.9); NEUTROPHILS % (AUTO) 83.1 % (43.0-81.0); PLATELET COUNT (AUTO) 519 /CMM (150-450); RED BLOOD CELL COUNT(AUTO) 3.34 MIL/uL (4.5-6.0)
[2019-08-17 04:58] LABS: CALCIUM, SERUM 8.9 mg/dL (8.5-10.1); CREATININE 3.9 mg/dL (0.6-1.3); MAGNESIUM 2.2 mg/dL (1.8-2.4); POTASSIUM 3.1 mmol/L (3.5-5.1)
[2019-08-17 05:18] LABS: WHITE BLOOD COUNT (AUTO) 34.7 K/uL (4.3-11.0)
[2019-08-17] MEDS: PHENYLEPHRINE 80 MG in IV NS 0.9% 250 ML IV PRN (05:45)
[2019-08-17 06:01] LABS: EOSINOPHILS % (MANUAL) 1 % (0-4); LYMPHOCYTES % (MANUAL) 11 % (16-48); NEUTROPHILS % (MANUAL) 88 (42-76)
--- NOTE | 2019-08-17 07:00 | NUR ---
Stable but still on Neosynephrine drip @ 20 mcg/min. Not in any respiratory distress,Afebrile all night.Tolerating feeding but blood sugars still high,may need additional coverage .
--- NOTE | 2019-08-17 07:30 | NUR ---
ICU/RN: Pt received on trach vent, no distress noted. Breathing even and unlabored. Pt responds to light touch and opens eyes. On neosynephrine drip, titrated as ordered. R subclavian HD cath dressing C/D/I. Tolerating TF with no residual noted. Flexiseal draining to gravity. SR with BBB noted on monitor. Will continue to monitor pt.
[2019-08-17] MEDS: ASPIRIN EC 81 MG TABLET.DR PO SCH (08:08)
[2019-08-17] MEDS: LACTOBACILLUS RHAMNOSUS GG 1 EACH CAP.SPRINK GT SCH ×2 (08:08→16:20)
[2019-08-17] MEDS: PROSOURCE / PROSTAT (PYXIS) 30 ML UDC GT SCH ×2 (08:08→16:20)
[2019-08-17] MEDS: NEPRO 1,000 ML BOTTLE GT PRN (08:08)
[2019-08-17] MEDS: Z GUARD REMEDY 4 OZ OINT TP SCH ×2 (08:09→21:08)
[2019-08-17] MEDS: NYSTATIN TOP POWDER 15 GM BOTTLE TP SCH ×2 (08:09→16:41)
[2019-08-17] MEDS: DAKINS QUARTER STRENGTH (0.125%) 480 ML BOTTLE TOP SCH (08:10)
[2019-08-17] MEDS: AMMONIUM LACTATE 227 GM BOTTLE TP SCH ×2 (08:10→21:09)
[2019-08-17] MEDS: TRIAMCINOLONE ACETONIDE 0.1% CR 15 GM TUBE TP SCH ×2 (08:11→21:08)
[2019-08-17] MEDS: ACETAMINOPHEN 650 MG/20.3 ML UDC NG PRN (08:24)
--- NOTE | 2019-08-17 09:45 | NUR ---
ICU/RN: Dr Omar brown; updated on pt status. Informed of pt labs, blood glucose trends. Aware of K and Phos levels. Orders for lantus for blood glucose management noted and carried out.
--- NOTE | 2019-08-17 14:30 | NUR ---
ICU/RN: Bed bath, wound care rendered. Pt tolerated well.
--- NOTE | 2019-08-17 16:30 | NUR ---
ICU/RN: Titrated pressors off, pt unable to tolerate. Restarted and titrated per protocol.
--- NOTE | 2019-08-17 18:45 | NUR ---
ICU/RN: Tomasz AUTOMOTIVE GLAZIER rounds; updated on pt status; T-max 100.2, cooling measures in place, WBC upward trend. Awaiting Dr Damian to remove HD access. Isolated for CRE sputum (verified with SO subacute).
[2019-08-17] MEDS ORDERED: METRONIDAZOLE 500MG/ NS 100ML 100 ML IV ONE (22:08)
[2019-08-17] MEDS: METRONIDAZOLE 500MG/ NS 100ML 500 MG in PREMIX 1 EA IV SCH (22:10)
[2019-08-17] MEDS: INSULIN GLARGINE, 100 UNIT/ML CARTRIDGE SQ SCH (23:25)
[2019-08-18] VITALS (97 sets, daily range): BP systolic 59–182; BP diastolic 26–97
[2019-08-18] MEDS ORDERED: METRONIDAZOLE 500MG/ NS 100ML 100 ML IV ONE (04:05)
[2019-08-18 04:32] LABS: BASOPHILS # (AUTO) 0.2 /CMM (0.0-0.2); BASOPHILS % (AUTO) 0.5 % (0.0-2.0); EOSINOPHILS % (AUTO) 3.1 % (0.0-6.0); HEMATOCRIT 32 % (39-51); HEMOGLOBIN 9.4 g/dL (13.5-17.5); LYMPHOCYTES # (AUTO) 3.9 /CMM (0.8-4.8); LYMPHOCYTES % (AUTO) 10.1 % (20.0-44.0); MEAN CORPUSCULAR HGB CONC 30 g/dl (31.0-36.0); MEAN CORPUSCULAR VOLUME 91 fL (80-96); MONOCYTES # (AUTO) 2.8 /CMM (0.1-1.30); MONOCYTES % (AUTO) 7.4 % (2.0-12.0); NEUTROPHILS # (AUTO) 30.2 /CMM (1.8-8.9); NEUTROPHILS % (AUTO) 78.9 % (43.0-81.0); PLATELET COUNT (AUTO) 568 /CMM (150-450); RED BLOOD CELL COUNT(AUTO) 3.49 MIL/uL (4.5-6.0)
[2019-08-18 04:46] LABS: CALCIUM, SERUM 9.7 mg/dL (8.5-10.1); CREATININE 4.5 mg/dL (0.6-1.3); MAGNESIUM 2.4 mg/dL (1.8-2.4); PHOSPHORUS 1.4 mg/dL (2.5-4.9); POTASSIUM 3.5 mmol/L (3.5-5.1)
[2019-08-18 04:51] LABS: WHITE BLOOD COUNT (AUTO) 38.2 K/uL (4.3-11.0)
[2019-08-18 05:22] LABS: BASOPHILS % (MANUAL) 1 % (0.0-2.0); EOSINOPHILS % (MANUAL) 3 % (0-4); LYMPHOCYTES % (MANUAL) 11 % (16-48)
[2019-08-18 05:23] LABS: MONOCYTES % (MANUAL) 5 % (0-11.0); NEUTROPHILS % (MANUAL) 80 (42-76)
[2019-08-18] MEDS: NEPRO 1,000 ML BOTTLE GT PRN (05:23)
[2019-08-18] MEDS: METRONIDAZOLE 500MG/ NS 100ML 500 MG in PREMIX 1 EA IV SCH ×3 (05:23→20:29)
[2019-08-18] MEDS: BLOOD SUGAR DIAGNOSTIC 1 EACH STRIP IN SCH ×4 (05:23→23:14)
[2019-08-18] MEDS: INSULIN REGULAR, HUMAN 100 UNIT/ML 3 ML VIAL SQ PRN ×4 (05:40→23:17)
[2019-08-18] MEDS: PHENYLEPHRINE 80 MG in IV NS 0.9% 250 ML IV PRN (07:41)
--- NOTE | 2019-08-18 08:09 | NUR ---
received pt from welder 2nd shift, obtunded, ST ( 115-130), on the vent, lungs partially congested, pitting edema R arm and hand, GT to feeding tolerates well, vomits at times, HD pt, having HD right now, rectal tube - diarrhea, decub stage iv, BL AKA, v/s stable, no pain, pt turned and repositioned.
[2019-08-18] MEDS: ASPIRIN EC 81 MG TABLET.DR PO SCH (08:26)
[2019-08-18] MEDS: LACTOBACILLUS RHAMNOSUS GG 1 EACH CAP.SPRINK GT SCH ×2 (08:26→16:56)
[2019-08-18] MEDS: PROSOURCE / PROSTAT (PYXIS) 30 ML UDC GT SCH ×2 (08:26→16:58)
[2019-08-18] MEDS: DAKINS QUARTER STRENGTH (0.125%) 480 ML BOTTLE TOP SCH (08:26)
[2019-08-18] MEDS: NYSTATIN TOP POWDER 15 GM BOTTLE TP SCH ×2 (08:27→16:57)
[2019-08-18] MEDS: AMMONIUM LACTATE 227 GM BOTTLE TP SCH ×2 (08:27→20:31)
[2019-08-18] MEDS: Z GUARD REMEDY 4 OZ OINT TP SCH ×2 (08:27→20:31)
[2019-08-18] MEDS: TRIAMCINOLONE ACETONIDE 0.1% CR 15 GM TUBE TP SCH ×2 (08:27→20:32)
[2019-08-18] MEDS ORDERED: DILTIAZEM HCL IV 125 MG in IV NS 0.9% 100 ML IV PRN (09:00)
[2019-08-18] MEDS ORDERED: NEUTRA PHOS 1 POWD.PACKET NG ONE (10:00)
[2019-08-18] MEDS: ACETAMINOPHEN 650 MG/20.3 ML UDC NG PRN (10:01)
--- NOTE | 2019-08-18 12:19 | NUR ---
pt is resting in the bed, ST, did not tolerate HD, HR went up to 150, ECG done, pt on Cardizem per Dr Argueta for Tachycardia, on erin at 160 mcg, pt turned and repositioned.
--- NOTE | 2019-08-18 14:30 | NUR ---
RN NOTES RECEIVED PT ON BED, VENT/TRACH DEPENDENT, ON CARDIZEM AN HENRIK GTT , ON TELE ST, HR IN 100'S , NEPRO AT 40CC/HR RUNNING VIA GT , TOLERATING WELL, NO RESIDUAL NOTED. FLEXI SEAL DRINING TO GRAVITY , SR UP x3, CALL LIGHT WITHIN EASY REACH, BED LOCKED AND IN LOWEST POSITION, CONTINUE TO MONITOR .
--- NOTE | 2019-08-18 17:00 | NUR ---
RN NOTES PHARMACY NOTIFED REGARDING AMIKACIN 13.6,
--- NOTE | 2019-08-18 18:36 | NUR ---
RN NOTES VSS STABLE PT ON HENRIK AT 20MCG/MIN AND CARDIZEM AT 2 MG/HR RUNNING , VSS STABLE AT THIS TIME, WILL ENDORSE TO CARRIER WASHER NURSE FOR CONTINUITY OF CARE .
--- NOTE | 2019-08-18 19:30 | NUR ---
FOUNDATION ENGINEER NOTE RECEIVED [facility] WITH SETTINGS WELL TOLERATED. OPENS EYES SPONTANEOUSLY, NO TRACKING AND NON-VERBAL. ON ASPIRATION PRECAUTIONS AND HOB ELEVATED. ISOLATION PRECAUTIONS MAINTAINED. CARDIZEM DRIP ON HOLD WITH HEART RATE IN THE 80'S. ON HENRIK @20MCG/MIN TO MAINTAIN SBP ABOVE 90. RECTAL TUBE IN PLACE AND DRAINING. WILL CONTINUE TO MONITOR.
[2019-08-18] MEDS: INSULIN GLARGINE, 100 UNIT/ML CARTRIDGE SQ SCH (23:15)
[2019-08-19] VITALS (98 sets, daily range): BP systolic 79–145; BP diastolic 45–85
[2019-08-19] MEDS: PHENYLEPHRINE 80 MG in IV NS 0.9% 250 ML IV PRN (04:27)
[2019-08-19] MEDS: METRONIDAZOLE 500MG/ NS 100ML 500 MG in PREMIX 1 EA IV SCH ×3 (04:29→23:54)
[2019-08-19] MEDS: NEPRO 1,000 ML BOTTLE GT PRN (04:31)
[2019-08-19] MEDS: BLOOD SUGAR DIAGNOSTIC 1 EACH STRIP IN SCH ×4 (05:58→23:19)
[2019-08-19] MEDS: INSULIN REGULAR, HUMAN 100 UNIT/ML 3 ML VIAL SQ PRN ×4 (06:07→23:22)
--- NOTE | 2019-08-19 07:40 | NUR ---
KENO WRITER / RUNNER: pt is obtunded, with open eyes, no eyes contact, unable to follow commands, rest, no SOB, no grimacing, SR now, SBP over 100/continue titrate Gómez gtt, Cardizem gtt is off/stopped over night with SR, O2sat. over 96%, suctioned well, all wounds care done by report, GTF residual WNL, plan: HD today, remove HD cath after by MD, is in room, updated with all above, said: ok to start Cardizem gtt with HD if ST over 120, continue Gómez gtt and titrate, charge nurse is aware
--- NOTE | 2019-08-19 08:29 | NUR ---
REAL ESTATE CLERK: is in room, updated with pt.current status, neurostatus, VS, I/O, Gómez gtt, Cardizem gtt is off, GTF, wounds, pos.plan: HD today, remove HD cath after, ok to start Cardizem gtt if ST over 120, ordered: CBC, BMP
[2019-08-19] MEDS: LACTOBACILLUS RHAMNOSUS GG 1 EACH CAP.SPRINK GT SCH ×2 (09:00→16:32)
[2019-08-19] MEDS: ASPIRIN EC 81 MG TABLET.DR PO SCH (09:00)
[2019-08-19 09:01] LABS: BASOPHILS # (AUTO) 0.1 /CMM (0.0-0.2); BASOPHILS % (AUTO) 0.4 % (0.0-2.0); EOSINOPHILS % (AUTO) 2.4 % (0.0-6.0); HEMATOCRIT 29 % (39-51); HEMOGLOBIN 8.7 g/dL (13.5-17.5); LYMPHOCYTES % (AUTO) 9.3 % (20.0-44.0); MEAN CORPUSCULAR HGB CONC 30 g/dl (31.0-36.0); MEAN CORPUSCULAR VOLUME 92 fL (80-96); MONOCYTES % (AUTO) 6.2 % (2.0-12.0); NEUTROPHILS # (AUTO) 26.3 /CMM (1.8-8.9); NEUTROPHILS % (AUTO) 81.7 % (43.0-81.0); PLATELET COUNT (AUTO) 415 /CMM (150-450); RED BLOOD CELL COUNT(AUTO) 3.13 MIL/uL (4.5-6.0)
[2019-08-19] MEDS: PROSOURCE / PROSTAT (PYXIS) 30 ML UDC GT SCH ×2 (09:04→16:32)
[2019-08-19] MEDS: TRIAMCINOLONE ACETONIDE 0.1% CR 15 GM TUBE TP SCH ×2 (09:05→21:00)
[2019-08-19] MEDS: DAKINS QUARTER STRENGTH (0.125%) 480 ML BOTTLE TOP SCH (09:05)
[2019-08-19] MEDS: Z GUARD REMEDY 4 OZ OINT TP SCH ×2 (09:06→21:00)
[2019-08-19] MEDS: AMMONIUM LACTATE 227 GM BOTTLE TP SCH ×2 (09:06→21:00)
[2019-08-19] MEDS: NYSTATIN TOP POWDER 15 GM BOTTLE TP SCH ×2 (09:07→16:33)
--- NOTE | 2019-08-19 09:30 | NUR ---
JIGGER CROWN POUNCING MACHINE OPERATOR: updated, ordered HD today, waiting surgeon name who will remove HD cath., Amikacin level ordered, charge nurse is aware, pt.daughter called/updated with pt.current VS, POC, orders, need HD cath to be remove/agree
[2019-08-19 09:33] LABS: CALCIUM, SERUM 9.1 mg/dL (8.5-10.1); POTASSIUM 2.9 mmol/L (3.5-5.1)
[2019-08-19 09:35] LABS: WHITE BLOOD COUNT (AUTO) 32.2 K/uL (4.3-11.0)
--- NOTE | 2019-08-19 10:00 | NUR ---
RELIEF OPERATOR: confirmed for charge nurse: HD is today and is going to remove HD catheter after
--- NOTE | 2019-08-19 10:00 | NUR ---
FIRE EATER: is in room, updated with pt.current condition, VS, neuro status, GTF, I/O, Gómez gtt, labs, suction amount
[2019-08-19 10:45] LABS: LYMPHOCYTES % (MANUAL) 5 % (16-48); MONOCYTES % (MANUAL) 4 % (0-11.0); NEUTROPHILS % (MANUAL) 91 (42-76)
--- NOTE | 2019-08-19 13:14 | NUR ---
OUTSOLE CASER: GTF residual is 120ml, hold GTF for 2 hrs, keep HOB 45
[2019-08-19] MEDS: ACETAMINOPHEN 650 MG/20.3 ML UDC NG PRN (14:32)
--- NOTE | 2019-08-19 14:33 | NUR ---
BLUEPRINT MACHINE OPERATOR: Tylenol is given before wounds care
--- NOTE | 2019-08-19 14:49 | NUR ---
CROP SCOUT: HD nurse called/updated, will be at unit around 18-18.30
--- NOTE | 2019-08-19 17:03 | NUR ---
FUR WEIGHER: GHANSHYAM Sky is in room/updated, still Gómez gtt, VS, wounds, preliminary gram+ rods in blood, plan: remove HD cath after HD
--- NOTE | 2019-08-19 18:24 | NUR ---
RADIOTELEGRAPH OPERATOR: Surgeon Rickie is in unit, notified re , notes for possible request to remove HD catheter after HD today, consent is done, HD will start around 18.30-19.00, evaluated pt./updated, said: notify him when HD will be done
--- NOTE | 2019-08-19 21:00 | NUR ---
MACHINE WELDER AT BEDSIDE PERFORMING HD ON PATIENT. WILL HOLD ALL MEDICATION UNTIL DIALYSIS IS COMPLETED.
[2019-08-19] MEDS: ALBUMIN 25% 25 GM in PREMIX 1 EA IV PRN (22:33)
[2019-08-19] MEDS: INSULIN GLARGINE, 100 UNIT/ML CARTRIDGE SQ SCH (23:21)
[2019-08-20] VITALS (77 sets, daily range): BP systolic 96–153; BP diastolic 46–83
[2019-08-20] MEDS: METRONIDAZOLE 500MG/ NS 100ML 500 MG in PREMIX 1 EA IV SCH ×3 (05:09→20:55)
[2019-08-20] MEDS: BLOOD SUGAR DIAGNOSTIC 1 EACH STRIP IN SCH ×4 (05:10→23:07)
[2019-08-20] MEDS: INSULIN REGULAR, HUMAN 100 UNIT/ML 3 ML VIAL SQ PRN ×3 (05:17→17:28)
[2019-08-20 07:05] LABS: BASOPHILS # (AUTO) 0.1 /CMM (0.0-0.2); BASOPHILS % (AUTO) 0.5 % (0.0-2.0); EOSINOPHILS % (AUTO) 2.1 % (0.0-6.0); HEMATOCRIT 26 % (39-51); HEMOGLOBIN 7.9 g/dL (13.5-17.5); LYMPHOCYTES # (AUTO) 2.8 /CMM (0.8-4.8); LYMPHOCYTES % (AUTO) 10.5 % (20.0-44.0); MEAN CORPUSCULAR HGB CONC 31 g/dl (31.0-36.0); MEAN CORPUSCULAR VOLUME 92 fL (80-96); MONOCYTES # (AUTO) 1.5 /CMM (0.1-1.30); MONOCYTES % (AUTO) 5.7 % (2.0-12.0); NEUTROPHILS # (AUTO) 21.9 /CMM (1.8-8.9); NEUTROPHILS % (AUTO) 81.2 % (43.0-81.0); PLATELET COUNT (AUTO) 431 /CMM (150-450); RED BLOOD CELL COUNT(AUTO) 2.83 MIL/uL (4.5-6.0); WHITE BLOOD COUNT (AUTO) 26.9 K/uL (4.3-11.0)
--- NOTE | 2019-08-20 07:05 | NUR ---
RN NOTES RECEIVED PT ON BED, VENT/TRACH DEPENDENT , OBTUNDED, OPEN EYES AT TIMES, DOES NOT FOLLOW COMMAND TOLERATING CURRENT VENT SETTING WELL, NO RESPIRATORY DISTRESS NOTED AT THIS TIME, ON TELE ST HR IN 110'S , L UPPER ARM MIDLINE SITE CLEAN , DRY INTACT, NEPRO AT 40CC/HR RUNNING VIA GT , TOLERATING WELL, NO RESIDUAL NOTED. SR UP x3, CALL LIGHT WITHIN EASY REACH , BED LOCKED AND IN LOWEST POSITION, CONTINUE TO MONITOR .
[2019-08-20] MEDS: NEPRO 1,000 ML BOTTLE GT PRN (07:20)
[2019-08-20 08:19] LABS: CALCIUM, SERUM 8.6 mg/dL (8.5-10.1); CREATININE 3.2 mg/dL (0.6-1.3); MAGNESIUM 2.2 mg/dL (1.8-2.4); POTASSIUM 3.4 mmol/L (3.5-5.1)
[2019-08-20] MEDS: LACTOBACILLUS RHAMNOSUS GG 1 EACH CAP.SPRINK GT SCH ×2 (08:40→16:11)
[2019-08-20] MEDS: PROSOURCE / PROSTAT (PYXIS) 30 ML UDC GT SCH ×2 (08:40→16:11)
[2019-08-20] MEDS: ASPIRIN EC 81 MG TABLET.DR PO SCH (08:40)
[2019-08-20] MEDS: DAKINS QUARTER STRENGTH (0.125%) 480 ML BOTTLE TOP SCH (08:41)
[2019-08-20] MEDS: TRIAMCINOLONE ACETONIDE 0.1% CR 15 GM TUBE TP SCH ×2 (08:41→21:34)
[2019-08-20] MEDS: NYSTATIN TOP POWDER 15 GM BOTTLE TP SCH ×2 (08:41→16:11)
[2019-08-20] MEDS: AMMONIUM LACTATE 227 GM BOTTLE TP SCH ×2 (08:42→21:34)
[2019-08-20] MEDS: Z GUARD REMEDY 4 OZ OINT TP SCH ×2 (08:43→21:35)
[2019-08-20 08:54] LABS: PHOSPHORUS 0.8 mg/dL (2.5-4.9)
--- NOTE | 2019-08-20 09:39 | NUR ---
RN NOTES DR SIMON NOTIFIED REGARDING PHOS=.8
--- NOTE | 2019-08-20 10:15 | NUR ---
RN NOTES DR CALIXTO NOTIFED REGARDING POSITIVE BC FOR GRAM NEGATIVE RODS . NO NEW ORDER GIVEN . CONTINUE TO MONITOR.
[2019-08-20] MEDS ORDERED: Sodium Phosphate 7.5 MMOL in IV D5W 100 ML IV ONE (16:00)
--- NOTE | 2019-08-20 17:00 | NUR ---
RN NOTES R UPPER CHEST HD CATHETER REMOVED BY [employer] FARMWORK[employer] , DRESSING TO THE SITE , CLEAN, DRY INTACT , CONTINUE TO MONITOR .
[2019-08-20] MEDS: MORPHINE SULFATE INJ 2 MG/ML DISP.SYRIN IV PRN (17:08)
--- NOTE | 2019-08-20 18:12 | NUR ---
RT END OF THE SHIFT NOTE. PT. 58 Y OLD MALE REC/ @ 0700 AM PT. BENEDICTOBhavana MURIEL # 8, ON VENT WITH NOTED SETTINGS, WITH NO VENT CHANGES T/O DAY. ALARMS ARE SET AND FUNCTIONAL, EQUAL CHEST RISE NOTED. B/S BILATERALLY RALES AND RHONCHI SUX'S FOR MOD. AMT. OF PALE YELLOWISH THICK SECRETIONS, VENT PLUGGED INTO RED OUT LET, HME CHANGED, MANAGER INCOME TAX DONE, PT. REMAIN STABLE. NO CHANGES T/O DAY. PT. LEIDA. WELL AND NO DISTRESS NOTED. REPORT WILL PASS TO PM SHIFT. Addendum: 08/20/19 at 1814 by SHARMILA PERALES RT Amended: Links added.
--- NOTE | 2019-08-20 18:36 | NUR ---
RN NOTES VSS STABLE, PT STILL OFF HENRIK GTT, NO SIGNIFICANT CHANGES NOTED ON THIS SHIFT, WILL ENDORSE TO OCEANOGRAPHER ASSISTANT NURSE FOR CONTINUITY OF CARE .
--- NOTE | 2019-08-20 19:45 | NUR ---
ICU/ASSOCIATE SCHOOL PSYCHOLOGIST RECEIVED REPORT FROM DAY SHIFT NURSE. SEE FLOWSHEET FOR ASSESSMENT. THERE ARE A FEW SKIN ISSUES THAT ARE ADDRESSED, ALONG WITH THE INTERVENTIONS TO EACH. PT OBTUNDED. PT HAS TRACH ON VENT, TOLERATING CURRENT SETTINGS WITH SATURATION AT 100%. PT WAS TURNED AND REPOSITIONED FOR COMFORT AND CARE, WILL CONTINUE TO MONITOR THIS PT.
[2019-08-20] MEDS: ONDANSETRON HCL/PF 4 MG/2 ML VIAL IVP PRN (19:58)
--- NOTE | 2019-08-20 20:20 | NUR ---
ICU/INDUSTRIAL DIAMOND POLISHER WENT IN TO REPOSITION THIS PT, HOWEVER PT HAD A LARGE AMOUNT OF VOMIT ON HIM. NOTIFIED THE CHARGE NURSE WHO THEN WAS ABLE TO GIVE THE PRN ZOFRAN IVP. WILL CONTINUE TO MONITOR THIS PT AND HIS N/V.
--- NOTE | 2019-08-20 22:00 | NUR ---
ICU/TEXTILE BROKER PT WAS TURNED AND REPOSITIONED FOR COMFORT AND CARE. WILL CONTINUE TO MONITOR THIS PT. NO ACUTE DISTRESS SEEN AT THIS TIME.
[2019-08-20] MEDS: INSULIN GLARGINE, 100 UNIT/ML CARTRIDGE SQ SCH (23:07)
--- NOTE | 2019-08-20 23:10 | NUR ---
ICU/VESSEL TRAFFIC OFFICER ACCU CHECK WAS DONE, PT'S BLOOD SUGAR WAS 216. THIS WAS COVERED WITH LANTUS 15 SQ. WILL CONTINUE TO MONITOR THIS PT'S BLOOD SUGAR PER MD'S ORDERS AND HOSPITAL PROTOCOL.
[2019-08-21] VITALS (45 sets, daily range): BP systolic 96–180; BP diastolic 48–86
--- NOTE | 2019-08-21 01:45 | NUR ---
ICU/CABIN SERVICE AGENT PT APPEARED TO BE IN PAIN, NOTIFIED CHARGE NURSE WHO THEN GAVE THE PT MORPHINE 2 MG IVP. THE FLACC SCALE WAS USED 04/30. WILL CONTINUE TO MONITOR THIS PT'S PAIN SCALE. NO ACUTE DISTRESS SEEN AT THIS TIME.
[2019-08-21] MEDS: MORPHINE SULFATE INJ 2 MG/ML DISP.SYRIN IV PRN (01:47)
[2019-08-21] MEDS: ONDANSETRON HCL/PF 4 MG/2 ML VIAL IVP PRN (01:54)
--- NOTE | 2019-08-21 02:10 | NUR ---
ICU/BLISTER PACKING MACHINE TENDER PT WAS GIVEN AM CARE, ALONG WITH ORAL CARE. PT REMAINS ON CURRENT VENT SETTINGS HOWEVER WENT TO REPOSITION THIS PT HE HAD A LARGE AMOUNT OF VOMIT ON HIM. NOTIFIED THE CHARGE NURSE WHO THEN WAS ABLE TO GIVE THE PRN ZOFRAN IVP. WILL CONTINUE TO MONITOR THIS PT AND HIS N/V.
--- NOTE | 2019-08-21 03:00 | NUR ---
ICU/SILO WORKER PT APPEARS TO NOT BE TOLERATING HIS TUBE FEEDING OF NEPHRO @ 40ML/HR PT HAS TWICE HAD VOMITED LARGE AMOUNTS OF VOMIT. DIETARY CONSULT WAS PLACED TO EVALUATE THE TUBE FEEDING, PERHAPS CHANGE THE FEEDING TO SOMETHING THAT WILL BE ABLE TO BE DIGESTED.
[2019-08-21] MEDS: METRONIDAZOLE 500MG/ NS 100ML 500 MG in PREMIX 1 EA IV SCH ×3 (04:27→20:33)
[2019-08-21 04:32] LABS: BASOPHILS # (AUTO) 0.1 /CMM (0.0-0.2); BASOPHILS % (AUTO) 0.6 % (0.0-2.0); EOSINOPHILS % (AUTO) 4.6 % (0.0-6.0); HEMATOCRIT 26 % (39-51); HEMOGLOBIN 7.6 g/dL (13.5-17.5); LYMPHOCYTES # (AUTO) 3.3 /CMM (0.8-4.8); LYMPHOCYTES % (AUTO) 15.5 % (20.0-44.0); MEAN CORPUSCULAR HGB CONC 30 g/dl (31.0-36.0); MEAN CORPUSCULAR VOLUME 91 fL (80-96); MONOCYTES # (AUTO) 1.5 /CMM (0.1-1.30); NEUTROPHILS # (AUTO) 15.6 /CMM (1.8-8.9); NEUTROPHILS % (AUTO) 72.3 % (43.0-81.0); PLATELET COUNT (AUTO) 455 /CMM (150-450); RED BLOOD CELL COUNT(AUTO) 2.82 MIL/uL (4.5-6.0); WHITE BLOOD COUNT (AUTO) 21.6 K/uL (4.3-11.0)
[2019-08-21 04:53] LABS: CALCIUM, SERUM 9.3 mg/dL (8.5-10.1); CREATININE 3.9 mg/dL (0.6-1.3); MAGNESIUM 2.4 mg/dL (1.8-2.4); PHOSPHORUS 1.9 mg/dL (2.5-4.9); POTASSIUM 3.4 mmol/L (3.5-5.1)
--- NOTE | 2019-08-21 05:27 | NUR ---
ICU/VENDETTE AM LABS WERE DRAWN, AWAIT FOR ANY CRITICAL LAB RESULT.
[2019-08-21] MEDS: BLOOD SUGAR DIAGNOSTIC 1 EACH STRIP IN SCH ×4 (06:16→23:01)
[2019-08-21] MEDS: INSULIN REGULAR, HUMAN 100 UNIT/ML 3 ML VIAL SQ PRN ×2 (06:19→11:44)
--- NOTE | 2019-08-21 07:05 | NUR ---
RN NOTES RECEIVED PT ON BED, VENT/TRACH DEPENDENT , OBTUNDED, OPEN EYES AT TIMES, DOES NOT FOLLOW COMMAND TOLERATING CURRENT VENT SETTING WELL, NO RESPIRATORY DISTRESS NOTED AT THIS TIME, ON TELE ST HR IN 100'S , L UPPER ARM MIDLINE SITE CLEAN , DRY INTACT, TF ON HOLD AT THIS TIME, PER REPORT PT WAS NOT UNABLE TO TOLERATE TF , DIETITIAN CONSULT REORDERED TO REEVALUATE PT FOR TF , SR UP x3, CALL LIGHT WITHIN EASY REACH , BED LOCKED AND IN LOWEST POSITION, CONTINUE TO MONITOR .
--- NOTE | 2019-08-21 08:00 | NUR ---
RN NOTES DR CALIXTO NOTIFED RGARING TF THAT IS ON HOLD AND PT WAS UNABLE TO TOLERATE IT , ORDER RECEIVED FOR KUB.
[2019-08-21] MEDS: ASPIRIN EC 81 MG TABLET.DR PO SCH (08:26)
[2019-08-21] MEDS: LACTOBACILLUS RHAMNOSUS GG 1 EACH CAP.SPRINK GT SCH ×2 (08:26→16:08)
[2019-08-21] MEDS: DAKINS QUARTER STRENGTH (0.125%) 480 ML BOTTLE TOP SCH (08:27)
[2019-08-21] MEDS: PROSOURCE / PROSTAT (PYXIS) 30 ML UDC GT SCH ×2 (08:27→16:09)
[2019-08-21] MEDS: AMMONIUM LACTATE 227 GM BOTTLE TP SCH ×2 (08:28→20:34)
[2019-08-21] MEDS: NYSTATIN TOP POWDER 15 GM BOTTLE TP SCH ×2 (08:28→16:09)
[2019-08-21] MEDS: TRIAMCINOLONE ACETONIDE 0.1% CR 15 GM TUBE TP SCH ×2 (08:28→20:34)
[2019-08-21] MEDS: Z GUARD REMEDY 4 OZ OINT TP SCH ×2 (08:30→20:34)
--- NOTE | 2019-08-21 09:58 | NUR ---
RN NOTES THE TIP OF THE HD CATH CULTURE CANCELLED BY THE LAB, DUE TO IMPROPER SPECIMEN HANDING BY THE LAB. NOTIFED .
--- NOTE | 2019-08-21 11:00 | NUR ---
RN NOTES DR SIMON NOTIFED REGARDING PHOS 1.9 , NO NEW ORDER RECEIVED .
--- NOTE | 2019-08-21 15:00 | NUR ---
RN NOTES VSS STABLE, CONTINUE TO MONITOR .
--- NOTE | 2019-08-21 18:00 | NUR ---
RN NOTES NO SIGNIFICANT CHANGES NOTED ON THIS SHIFT, WILL ENDORSE TO CASKET ASSEMBLER NURSE FOR CONTINUITY OF CARE .
--- NOTE | 2019-08-21 20:14 | NUR ---
PT TRACHED SHLY 8 ON VENT. NO RESP DISTRESS. PT TOLERATING VENT SETTINGS. SX'D FOR SML AMT OF THIN PALE SECRETIONS. TRACH SECURE, CUFF COMPENSATION PROGRAMS MANAGER. VENT ALARMS SET AND AUDIBLE. AMBU BAG AT BEDSIDE. CONTINUE [facility] VENT SUPPORT. Addendum: 08/21/19 at 2016 by AUDI KOHLI RT Amended: Links added.
[2019-08-21] MEDS: INSULIN GLARGINE, 100 UNIT/ML CARTRIDGE SQ SCH (22:00)
[2019-08-22] VITALS (25 sets, daily range): BP systolic 54–151; BP diastolic 28–96
[2019-08-22 04:22] LABS: BASOPHILS # (AUTO) 0.1 /CMM (0.0-0.2); BASOPHILS % (AUTO) 0.5 % (0.0-2.0); EOSINOPHILS % (AUTO) 6.3 % (0.0-6.0); HEMATOCRIT 26 % (39-51); HEMOGLOBIN 7.7 g/dL (13.5-17.5); LYMPHOCYTES # (AUTO) 3.5 /CMM (0.8-4.8); LYMPHOCYTES % (AUTO) 16.1 % (20.0-44.0); MEAN CORPUSCULAR HGB CONC 30 g/dl (31.0-36.0); MEAN CORPUSCULAR VOLUME 91 fL (80-96); MONOCYTES # (AUTO) 1.4 /CMM (0.1-1.30); MONOCYTES % (AUTO) 6.6 % (2.0-12.0); NEUTROPHILS # (AUTO) 15.4 /CMM (1.8-8.9); NEUTROPHILS % (AUTO) 70.5 % (43.0-81.0); PLATELET COUNT (AUTO) 474 /CMM (150-450); RED BLOOD CELL COUNT(AUTO) 2.87 MIL/uL (4.5-6.0); WHITE BLOOD COUNT (AUTO) 21.7 K/uL (4.3-11.0)
[2019-08-22 04:35] LABS: CALCIUM, SERUM 9.2 mg/dL (8.5-10.1); CREATININE 4.6 mg/dL (0.6-1.3); MAGNESIUM 2.4 mg/dL (1.8-2.4); PHOSPHORUS 2.7 mg/dL (2.5-4.9); POTASSIUM 3.4 mmol/L (3.5-5.1)
[2019-08-22] MEDS: METRONIDAZOLE 500MG/ NS 100ML 500 MG in PREMIX 1 EA IV SCH ×3 (05:45→21:03)
[2019-08-22] MEDS: BLOOD SUGAR DIAGNOSTIC 1 EACH STRIP IN SCH ×4 (05:46→23:50)
--- NOTE | 2019-08-22 07:20 | NUR ---
MANAGER AUDIT NOTES RECEIVED BEDSIDE REPORT. PT NON VERBAL SPONTANEOUS EYE OPENING. NO S/S OF RESPIRATORY DISTRESS TOLERATING TRACH SHILEY #8 VENT SETTINGS ORDERED SINUS-SINUS TACHY ON MONITOR . FLEXI SEAL INTACT DRAINING LIQUID BROWN STOOL. ANURIC LAST HD 08/20 WITH 500ML OUT. GTF FEEDING NEPRO HELD AT THIS TIME FROM EPISODES OF VOMITING ON NOC. OFF ALL PRESSORS AT THIS TIME ABDIEL TRIPLE LUMEN PICC TKO NS. SAFETY AND ASPIRATION PRECAUTIONS IN PLACE BED IN LOW LOCKED POSITION HOB ELEVATED. WILL CONT TO MONITOR ACCORDINGLY
[2019-08-22] MEDS: TRIAMCINOLONE ACETONIDE 0.1% CR 15 GM TUBE TP SCH ×2 (08:42→21:04)
[2019-08-22] MEDS: AMMONIUM LACTATE 227 GM BOTTLE TP SCH ×2 (08:42→21:04)
[2019-08-22] MEDS: PROSOURCE / PROSTAT (PYXIS) 30 ML UDC GT SCH ×2 (08:42→17:30)
[2019-08-22] MEDS: Z GUARD REMEDY 4 OZ OINT TP SCH ×2 (08:42→21:04)
[2019-08-22] MEDS: ASPIRIN EC 81 MG TABLET.DR PO SCH (08:42)
[2019-08-22] MEDS: LACTOBACILLUS RHAMNOSUS GG 1 EACH CAP.SPRINK GT SCH ×2 (08:42→17:28)
[2019-08-22] MEDS: DAKINS QUARTER STRENGTH (0.125%) 480 ML BOTTLE TOP SCH (08:42)
[2019-08-22] MEDS: NYSTATIN TOP POWDER 15 GM BOTTLE TP SCH ×2 (08:42→17:28)
--- NOTE | 2019-08-22 12:01 | NUR ---
DR CALIXTO MADE AWARE OF NUTRITION RECOMMENDATION OF VITAL 1.2 TO HELP WITH DIGESTION. MD AGREED WILL PLACE ORDER
[2019-08-22] MEDS: INSULIN REGULAR, HUMAN 100 UNIT/ML 3 ML VIAL SQ PRN ×3 (12:43→23:52)
--- NOTE | 2019-08-22 12:44 | NUR ---
PT BS 167 MG/DL 4 UNITS HUMULIN HELD PER SCALE PT NPO R/T EMISIS
--- NOTE | 2019-08-22 15:15 | NUR ---
BED BATH GIVEN ORAL AND WOUND CARE RENDERED PT TOLERATED REPOSITIONED FOR COMFORT
[2019-08-22] MEDS: VITAL AF 1.2 1,000 ML BOTTLE GT PRN (17:28)
[2019-08-22] MEDS ORDERED: COLISTIMETHATE SODIUM 100 MG in IV NS 0.9% 50 ML IV SCH (19:30)
[2019-08-22] MEDS: COLISTIMETHATE SODIUM 100 MG in IV NS 0.9% 50 ML IV SCH (20:00)
--- NOTE | 2019-08-22 20:00 | NUR ---
Received patient open eyes spontaneously not following commands.Dx: Sepsis with Hx:VDRF,ESRD on HD,DM,HTN,ENCEPHALOPATHY,ANOXIC BRAIN INJURY,SAVI.AKA.With trach to vent with prescribed settings well tolerated.No cute distress noted.SR 86- 96 per monitor.Normotensive.Nutrition via gt infusing well tolerated.HOB elevated.Flexi seal to gravity drainage with liquid stools.Anuric.With multiple skin issues.Dressings C/D/I.Turned ans repositioned.Continue monitoring.
[2019-08-22] MEDS: INSULIN GLARGINE, 100 UNIT/ML CARTRIDGE SQ SCH (21:36)
[2019-08-23] VITALS (25 sets, daily range): BP systolic 78–150; BP diastolic 41–87
--- NOTE | 2019-08-23 | NUR ---
Patient resting FSBS 153 coverage given per sliding scale.GT feeding tolerating well. VSS.Bed bath rendered.Wound care done.Trach care done.Turned and repositioned.
[2019-08-23 04:22] LABS: BASOPHILS # (AUTO) 0.1 /CMM (0.0-0.2); BASOPHILS % (AUTO) 0.6 % (0.0-2.0); EOSINOPHILS % (AUTO) 9.2 % (0.0-6.0); HEMATOCRIT 25 % (39-51); HEMOGLOBIN 7.6 g/dL (13.5-17.5); LYMPHOCYTES # (AUTO) 2.9 /CMM (0.8-4.8); LYMPHOCYTES % (AUTO) 18.2 % (20.0-44.0); MEAN CORPUSCULAR HGB CONC 30 g/dl (31.0-36.0); MEAN CORPUSCULAR VOLUME 91 fL (80-96); MONOCYTES # (AUTO) 1.2 /CMM (0.1-1.30); MONOCYTES % (AUTO) 7.7 % (2.0-12.0); NEUTROPHILS # (AUTO) 10.1 /CMM (1.8-8.9); NEUTROPHILS % (AUTO) 64.3 % (43.0-81.0); PLATELET COUNT (AUTO) 494 /CMM (150-450); RED BLOOD CELL COUNT(AUTO) 2.79 MIL/uL (4.5-6.0); WHITE BLOOD COUNT (AUTO) 15.8 K/uL (4.3-11.0)
[2019-08-23 04:52] LABS: CREATININE 5.3 mg/dL (0.6-1.3); MAGNESIUM 2.3 mg/dL (1.8-2.4); PHOSPHORUS 4.1 mg/dL (2.5-4.9); POTASSIUM 3.3 mmol/L (3.5-5.1)
[2019-08-23] MEDS: METRONIDAZOLE 500MG/ NS 100ML 500 MG in PREMIX 1 EA IV SCH ×2 (05:00→12:56)
[2019-08-23] MEDS: BLOOD SUGAR DIAGNOSTIC 1 EACH STRIP IN SCH ×3 (05:49→17:14)
[2019-08-23] MEDS ORDERED: IV NS 0.9% 250 ML IV ONE (06:00)
--- NOTE | 2019-08-23 07:00 | NUR ---
Patient resting vs remains stable.No significant change noted.GT feeding well tolerated. All needs anticipated and met.No distress noted.Turned and repositioned.
--- NOTE | 2019-08-23 07:15 | NUR ---
EDUCATION ANALYST NOTES RECEIVED BEDSIDE REPORT. PT NON VERBAL SPONTANEOUS EYE OPENING.AFEBRILE NO S/S OF RESPIRATORY DISTRESS TOLERATING VENT SETTINGS ORDERED TRACH MUREIL #8 VENT SETTINGS ORDERED SINUS-SINUS TACHY ON MONITOR . FLEXI SEAL INTACT DRAINING LIQUID BROWN STOOL. ANURIC LAST HD 08/20 WITH 500ML OUT. GTF FEEDING VITAL 1.2 @ 40ML/HR TOLERATING WELL ABDIEL TRIPLE LUMEN PICC TKO NS. SAFETY AND ASPIRATION PRECAUTIONS IN PLACE BED IN LOW LOCKED POSITION HOB ELEVATED. WILL CONT TO MONITOR ACCORDINGLY
[2019-08-23] MEDS: ASPIRIN EC 81 MG TABLET.DR PO SCH (08:34)
[2019-08-23] MEDS: AMMONIUM LACTATE 227 GM BOTTLE TP SCH ×2 (08:34→21:01)
[2019-08-23] MEDS: DAKINS QUARTER STRENGTH (0.125%) 480 ML BOTTLE TOP SCH (08:34)
[2019-08-23] MEDS: TRIAMCINOLONE ACETONIDE 0.1% CR 15 GM TUBE TP SCH ×2 (08:34→21:01)
[2019-08-23] MEDS: PROSOURCE / PROSTAT (PYXIS) 30 ML UDC GT SCH ×2 (08:34→16:41)
[2019-08-23] MEDS: LACTOBACILLUS RHAMNOSUS GG 1 EACH CAP.SPRINK GT SCH ×2 (08:34→16:41)
[2019-08-23] MEDS: NYSTATIN TOP POWDER 15 GM BOTTLE TP SCH ×2 (08:35→16:42)
[2019-08-23] MEDS: Z GUARD REMEDY 4 OZ OINT TP SCH ×2 (08:35→21:01)
--- NOTE | 2019-08-23 10:00 | NUR ---
PER TEDDY ROTH WELFARE ANALYST ONCE ID GIVES CLEARANCE NEW HD CATH WILL BE PLACED
[2019-08-23] MEDS: INSULIN REGULAR, HUMAN 100 UNIT/ML 3 ML VIAL SQ PRN ×2 (12:20→17:16)
--- NOTE | 2019-08-23 15:35 | NUR ---
BED BATH GIVEN ORAL AND WOUND CARE DONE PT TOLERATED WELL
[2019-08-23] MEDS: VITAL AF 1.2 1,000 ML BOTTLE GT PRN (16:41)
--- NOTE | 2019-08-23 19:23 | NUR ---
MOBILE APPLICATION ARCHITECT NOTES PT REMAINED AFEBRILE THROUGHOUT SHIFT NO S/S OF DISTRESS OR ACUTE PAIN. NO SIGNIFICANT CHANGES NOTED WILL ENDORSE TO NOC.
[2019-08-23] MEDS: COLISTIMETHATE SODIUM 100 MG in IV NS 0.9% 50 ML IV SCH (20:30)
--- NOTE | 2019-08-23 20:45 | NUR ---
Received report from GARRY Bowen for continuity of care.Patient obtunded in no acute distress. On full vent support via trach tolerating vent settings well.SR per monitor.Hemodynamically stable. Nutrition Vital infusing via peg.No residual noted.HOB elevated.Flexi seal in place with liquid stools. Turned and repositioned offloading pressure points.
[2019-08-23] MEDS: INSULIN GLARGINE, 100 UNIT/ML CARTRIDGE SQ SCH (21:57)
[2019-08-24] VITALS (52 sets, daily range): BP systolic 72–152; BP diastolic 33–97
[2019-08-24] MEDS: BLOOD SUGAR DIAGNOSTIC 1 EACH STRIP IN SCH ×4 (00:20→17:15)
[2019-08-24] MEDS: INSULIN REGULAR, HUMAN 100 UNIT/ML 3 ML VIAL SQ PRN ×4 (00:21→17:15)
[2019-08-24] MEDS ORDERED: IV NS 0.9% 250 ML IV ONE (04:00)
[2019-08-24 05:55] LABS: BASOPHILS # (AUTO) 0.1 /CMM (0.0-0.2); BASOPHILS % (AUTO) 0.7 % (0.0-2.0); EOSINOPHILS % (AUTO) 7.4 % (0.0-6.0); HEMATOCRIT 26 % (39-51); LYMPHOCYTES # (AUTO) 2.1 /CMM (0.8-4.8); LYMPHOCYTES % (AUTO) 11.4 % (20.0-44.0); MEAN CORPUSCULAR HGB CONC 30 g/dl (31.0-36.0); MEAN CORPUSCULAR VOLUME 91 fL (80-96); MONOCYTES # (AUTO) 0.8 /CMM (0.1-1.30); MONOCYTES % (AUTO) 4.2 % (2.0-12.0); NEUTROPHILS # (AUTO) 14.1 /CMM (1.8-8.9); NEUTROPHILS % (AUTO) 76.3 % (43.0-81.0); PLATELET COUNT (AUTO) 575 /CMM (150-450); WHITE BLOOD COUNT (AUTO) 18.5 K/uL (4.3-11.0)
--- NOTE | 2019-08-24 06:15 | NUR ---
Patient resting no acute distress noted.SR/ST 120's non sustaining. VS remains stable.Trach dressing changed.Oral care done.Wound care done.Bathed and complete linens changed.Tolerating GT feeding.Turned and repositioned.No significant change noted.FSBS done Q 6 HRS and coverage given per SS.
[2019-08-24 06:20] LABS: ALBUMIN 2.2 g/dL (3.4-5.0); ALKALINE PHOSPHATASE 189 U/L (46-116); BILIRUBIN,TOTAL 0.5 mg/dL (0.2-1.0); CARBON DIOXIDE 22 mmol/L (21-32); CHLORIDE 106 mmol/L (98-107); CREATININE 5.9 mg/dL (0.6-1.3); GLUCOSE 186 mg/dL (74-106); MAGNESIUM 2.5 mg/dL (1.8-2.4); PHOSPHORUS 4.6 mg/dL (2.5-4.9); POTASSIUM 3.6 mmol/L (3.5-5.1); SODIUM SERUM 147 mmol/L (136-145)
[2019-08-24 06:29] LABS: UREA NITROGEN, BLOOD 95 mg/dL (7-18)
[2019-08-24 06:46] LABS: ASPARTATE AMINOTRANSFERASE 9 U/L (15-37)
[2019-08-24 06:48] LABS: ALANINE AMINOTRANSFERASE < 6 U/L (12-78)
--- NOTE | 2019-08-24 07:00 | NUR ---
RN NOTES RECEIVED PT ON BED , VENT/TRACH DEPENDENT, NO S/S OF RESPIRATORY DISTRESS TOLERATING VENT SETTINGS ORDERED TRACH MURIEL #8 VENT SETTINGS ORDERED, ON TELE ST HR IN 100'S , FLEXI SEAL INTACT DRAINING LIQUID BROWN STOOL. ANURIC, GTF FEEDING VITAL 1.2 @ 40ML/HR TOLERATING WELL ABDIEL MIDLINE SITE CLEAN , DRY AND INTACT, SAFETY AND ASPIRATION PRECAUTIONS IN PLACE, BED IN LOW LOCKED POSITION, HOB ELEVATED. WILL CONTINUE TO MONITOR .
[2019-08-24] MEDS: PHENYLEPHRINE 80 MG in IV NS 0.9% 250 ML IV PRN (07:48)
--- NOTE | 2019-08-24 07:48 | NUR ---
RN NOTES SBP IN LOW 80'S , HENRIK GTT STARTED PER MD ORDER .CONTINUE TO MONITOR
[2019-08-24] MEDS: PROSOURCE / PROSTAT (PYXIS) 30 ML UDC GT SCH ×2 (08:27→17:03)
[2019-08-24] MEDS: LACTOBACILLUS RHAMNOSUS GG 1 EACH CAP.SPRINK GT SCH ×2 (08:27→17:03)
[2019-08-24] MEDS: ASPIRIN EC 81 MG TABLET.DR PO SCH (08:27)
[2019-08-24] MEDS: DAKINS QUARTER STRENGTH (0.125%) 480 ML BOTTLE TOP SCH (08:28)
[2019-08-24] MEDS: NYSTATIN TOP POWDER 15 GM BOTTLE TP SCH ×2 (08:29→17:04)
[2019-08-24] MEDS: AMMONIUM LACTATE 227 GM BOTTLE TP SCH ×2 (08:29→21:32)
[2019-08-24] MEDS: Z GUARD REMEDY 4 OZ OINT TP SCH ×2 (08:30→21:33)
[2019-08-24] MEDS: TRIAMCINOLONE ACETONIDE 0.1% CR 15 GM TUBE TP SCH ×2 (08:31→21:32)
[2019-08-24] MEDS: ACETAMINOPHEN 650 MG/20.3 ML UDC NG PRN (08:46)
--- NOTE | 2019-08-24 12:00 | NUR ---
RN NOTES PT ON HENRIK GTT AT 20MCG/MIN RUNNING , BP STABLE, CONTINUE TO MONITOR .
[2019-08-24] MEDS: VITAL AF 1.2 1,000 ML BOTTLE GT PRN (17:04)
[2019-08-24] MEDS: AMIKACIN 300 MG in IV D5W 100 ML IV PRN (17:46)
--- NOTE | 2019-08-24 18:00 | NUR ---
RN NOTES PT ON HENRIK AT 10 MCG/MIN AT THIS TIME, MARTHA TF WELL, NO RESIDUAL NOTED, L UPPER ARM MIDLINE SITE CLEAN , DRY AND INTACT, SR UP x3, CALL LIGHT WITHIN EASY REACH, WILL ENDOSE TO SKETCH LINER NURSE FOR CONTINUITY OF CARE.
[2019-08-24] MEDS: COLISTIMETHATE SODIUM 100 MG in IV NS 0.9% 50 ML IV SCH (19:32)
[2019-08-24] MEDS: INSULIN GLARGINE, 100 UNIT/ML CARTRIDGE SQ SCH (21:41)
[2019-08-25] VITALS (52 sets, daily range): BP systolic 82–147; BP diastolic 42–81
[2019-08-25] MEDS: BLOOD SUGAR DIAGNOSTIC 1 EACH STRIP IN SCH ×5 (00:27→23:33)
[2019-08-25] MEDS: INSULIN REGULAR, HUMAN 100 UNIT/ML 3 ML VIAL SQ PRN ×5 (00:37→23:32)
[2019-08-25 05:03] LABS: BASOPHILS # (AUTO) 0.1 /CMM (0.0-0.2); BASOPHILS % (AUTO) 0.5 % (0.0-2.0); EOSINOPHILS % (AUTO) 10.7 % (0.0-6.0); HEMATOCRIT 24 % (39-51); HEMOGLOBIN 7.4 g/dL (13.5-17.5); LYMPHOCYTES # (AUTO) 3.6 /CMM (0.8-4.8); LYMPHOCYTES % (AUTO) 18.6 % (20.0-44.0); MEAN CORPUSCULAR HGB CONC 30 g/dl (31.0-36.0); MEAN CORPUSCULAR VOLUME 93 fL (80-96); MONOCYTES # (AUTO) 1.2 /CMM (0.1-1.30); MONOCYTES % (AUTO) 6.3 % (2.0-12.0); NEUTROPHILS # (AUTO) 12.4 /CMM (1.8-8.9); NEUTROPHILS % (AUTO) 63.9 % (43.0-81.0); PLATELET COUNT (AUTO) 607 /CMM (150-450); RED BLOOD CELL COUNT(AUTO) 2.62 MIL/uL (4.5-6.0); WHITE BLOOD COUNT (AUTO) 19.3 K/uL (4.3-11.0)
[2019-08-25 05:13] LABS: ALANINE AMINOTRANSFERASE < 6 U/L (12-78); ALBUMIN 2.1 g/dL (3.4-5.0); ALKALINE PHOSPHATASE 164 U/L (46-116); ASPARTATE AMINOTRANSFERASE 12 U/L (15-37); BILIRUBIN,TOTAL 0.5 mg/dL (0.2-1.0); CALCIUM, SERUM 9.3 mg/dL (8.5-10.1); CARBON DIOXIDE 19 mmol/L (21-32); CHLORIDE 105 mmol/L (98-107); CREATININE 6.3 mg/dL (0.6-1.3); GLUCOSE 243 mg/dL (74-106); MAGNESIUM 2.5 mg/dL (1.8-2.4); PHOSPHORUS 4.5 mg/dL (2.5-4.9); POTASSIUM 3.4 mmol/L (3.5-5.1); SODIUM SERUM 143 mmol/L (136-145); TOTAL PROTEIN, SERUM 7.1 g/dL (6.4-8.2)
[2019-08-25 05:31] LABS: UREA NITROGEN, BLOOD 115 mg/dL (7-18)
--- NOTE | 2019-08-25 07:00 | NUR ---
RN NOTES RECEIVED PT ON BED , VENT/TRACH DEPENDENT, NO S/S OF RESPIRATORY DISTRESS TOLERATING VENT SETTINGS ORDERED, TRACH SHILEY #8 VENT SETTINGS ORDERED, ON TELE ST HR IN 100'S , FLEXI SEAL INTACT DRAINING LIQUID BROWN STOOL. ANURIC, GTF FEEDING VITAL 1.2 @ 40ML/HR TOLERATING WELL ABDIEL MIDLINE SITE CLEAN , DRY AND INTACT, SAFETY AND ASPIRATION PRECAUTIONS IN PLACE, BED IN LOW LOCKED POSITION, HOB ELEVATED. WILL CONTINUE TO MONITOR .
[2019-08-25] MEDS: ASPIRIN EC 81 MG TABLET.DR PO SCH (08:06)
[2019-08-25] MEDS: LACTOBACILLUS RHAMNOSUS GG 1 EACH CAP.SPRINK GT SCH ×2 (08:06→16:28)
[2019-08-25] MEDS: PROSOURCE / PROSTAT (PYXIS) 30 ML UDC GT SCH ×2 (08:07→16:28)
[2019-08-25] MEDS: TRIAMCINOLONE ACETONIDE 0.1% CR 15 GM TUBE TP SCH ×2 (08:07→20:53)
[2019-08-25] MEDS: DAKINS QUARTER STRENGTH (0.125%) 480 ML BOTTLE TOP SCH (08:07)
[2019-08-25] MEDS: AMMONIUM LACTATE 227 GM BOTTLE TP SCH ×2 (08:08→20:50)
[2019-08-25] MEDS: NYSTATIN TOP POWDER 15 GM BOTTLE TP SCH ×2 (08:09→16:29)
[2019-08-25] MEDS: Z GUARD REMEDY 4 OZ OINT TP SCH ×2 (08:10→20:50)
[2019-08-25] MEDS ORDERED: HEPARIN SODIUM, PORCINE 1000 UNIT/1 ML VIAL IV ONE (12:00)
[2019-08-25] MEDS ORDERED: LIDOCAINE 1% INJ 50 ML MDV IJ ONE (12:00)
--- NOTE | 2019-08-25 12:00 | NUR ---
RN NOTES CONSENT OBTAINED FROM PT 'S DAUGHTER FOR HD CATH PLACEMENT.
[2019-08-25] MEDS ORDERED: HEPARIN SODIUM, PORCINE 1000 UNIT/1 ML VIAL IV STA (12:05)
[2019-08-25] MEDS: PHENYLEPHRINE 80 MG in IV NS 0.9% 250 ML IV PRN (15:01)
[2019-08-25] MEDS: VITAL AF 1.2 1,000 ML BOTTLE GT PRN (15:03)
--- NOTE | 2019-08-25 18:00 | NUR ---
RN NOTES PT ON HENRIK AT 1MCG/MIN AT THIS TIME , PT IS VERY SENSITIVE TO HENRIK, VSS STABLE , TOLERATING TF WELL, AWAITING FOR DR. GOOD TO PLACE HD CATHETER , SUPPLIES AT THE BEDSIDE, WILL ENDORSE TO DECK MOLDER NURSE FOR CONTINUITY OF CARE .
[2019-08-25] MEDS ORDERED: HEPARIN SODIUM, PORCINE 5000 UNITS/1 ML VIAL ONE (19:59)
[2019-08-25] MEDS: COLISTIMETHATE SODIUM 100 MG in IV NS 0.9% 50 ML IV SCH (20:58)
--- NOTE | 2019-08-25 23:25 | NUR ---
PT RCVD SARAH'D ON MECHANICAL VENT WITH CHARTED SETTINGS. SX DONE. PT TRACH IS PATENT AND SECURE. VENT ALARMS APPEAR TO BE FUNCTIONING PROPERLY. VENT PLUGGED INTO RED OUTLET. AMBU BAG AT BEDSIDE. NO SOB NOTED. Addendum: 08/25/19 at 5775 by OLAMIDE LANDIN RT Amended: Links added.
[2019-08-25] MEDS: INSULIN GLARGINE, 100 UNIT/ML CARTRIDGE SQ SCH (23:29)
[2019-08-26] VITALS (68 sets, daily range): BP systolic 65–166; BP diastolic 30–90
[2019-08-26 04:49] LABS: BASOPHILS # (AUTO) 0.1 /CMM (0.0-0.2); BASOPHILS % (AUTO) 0.3 % (0.0-2.0); HEMATOCRIT 22 % (39-51); LYMPHOCYTES # (AUTO) 3.7 /CMM (0.8-4.8); MEAN CORPUSCULAR HGB CONC 30 g/dl (31.0-36.0); MEAN CORPUSCULAR VOLUME 93 fL (80-96); MONOCYTES # (AUTO) 1.2 /CMM (0.1-1.30); MONOCYTES % (AUTO) 6.2 % (2.0-12.0); NEUTROPHILS # (AUTO) 11.7 /CMM (1.8-8.9); NEUTROPHILS % (AUTO) 62.5 % (43.0-81.0); PLATELET COUNT (AUTO) 577 /CMM (150-450); RED BLOOD CELL COUNT(AUTO) 2.41 MIL/uL (4.5-6.0); WHITE BLOOD COUNT (AUTO) 18.7 K/uL (4.3-11.0)
[2019-08-26 05:22] LABS: CALCIUM, SERUM 9.1 mg/dL (8.5-10.1); CREATININE 6.7 mg/dL (0.6-1.3); POTASSIUM 3.7 mmol/L (3.5-5.1)
[2019-08-26 05:35] LABS: HEMOGLOBIN 6.7 g/dL (13.5-17.5)
[2019-08-26 05:42] LABS: EOSINOPHILS % (MANUAL) 2 % (0-4); LYMPHOCYTES % (MANUAL) 17 % (16-48); MONOCYTES % (MANUAL) 6 % (0-11.0); NEUTROPHILS % (MANUAL) 75 (42-76)
[2019-08-26] MEDS: INSULIN REGULAR, HUMAN 100 UNIT/ML 3 ML VIAL SQ PRN ×4 (06:34→22:51)
[2019-08-26] MEDS: BLOOD SUGAR DIAGNOSTIC 1 EACH STRIP IN SCH ×4 (06:35→23:57)
--- NOTE | 2019-08-26 07:00 | NUR ---
RN NOTES PATIENT IN BED RESTING COMFORTABLY WITH NO APPARENT DISTRESS. BREATHING EVEN AND UNLABORED. VENT SETTING WELL TOLERATED. ANURIC, OBTUNDED. NO PHYSICAL MANIFESTATION OF PAIN OR DISCOMFORT. ERNESTO CATH INSERTED AT ABOUT 0730 WITH NO BLEEDING NOTED. PROCEDURE WELL TOLERATED. VITAL SIGNS WITHIN BASELINE. AT ABOUT 0500, LAB CALLED REGARDING CRITICAL LOW LEVEL FOR HEMOGLOBIN. DR MORRIS INFORMED AND ORDERED ONE PACK OF RBC TO INFUSE, CONSENT OBTAINED. ORDERS CARRIED OUT. KEPT CLEAN AND DRY. ENDORSED TO NEXT SHIFT FOR CONTINUITY OF CARE.
[2019-08-26] MEDS: ASPIRIN EC 81 MG TABLET.DR PO SCH (08:14)
[2019-08-26] MEDS: LACTOBACILLUS RHAMNOSUS GG 1 EACH CAP.SPRINK GT SCH ×2 (08:14→16:47)
[2019-08-26] MEDS: PROSOURCE / PROSTAT (PYXIS) 30 ML UDC GT SCH ×2 (08:15→16:47)
[2019-08-26] MEDS: NYSTATIN TOP POWDER 15 GM BOTTLE TP SCH ×2 (08:25→17:00)
[2019-08-26] MEDS: Z GUARD REMEDY 4 OZ OINT TP SCH ×2 (08:26→21:37)
[2019-08-26] MEDS: AMMONIUM LACTATE 227 GM BOTTLE TP SCH ×2 (08:26→21:38)
[2019-08-26] MEDS: TRIAMCINOLONE ACETONIDE 0.1% CR 15 GM TUBE TP SCH ×4 (09:00→22:48)
[2019-08-26] MEDS: DAKINS QUARTER STRENGTH (0.125%) 480 ML BOTTLE TOP SCH (09:53)
--- NOTE | 2019-08-26 12:30 | NUR ---
ICU/RN: HD complete; 1000L out. 1U PRBC transfused with HD. Tolerated well, no s/s AE to transfusion.
[2019-08-26] MEDS: VITAL AF 1.2 1,000 ML BOTTLE GT PRN (15:00)
--- NOTE | 2019-08-26 15:30 | NUR ---
ICU/RN: Bed bath, wound care rendered. Pt tolerated well. Flexiseal draining and intact.
--- NOTE | 2019-08-26 15:42 | NUR ---
RT NOTE RECEIVED PT MECHANICALLY VENTILATED VIA CUFFED TRACHEOSTOMY TUBE. CUFF INFLATED. TRACH TUBE MIDLINE AND SECURE. VENTILATOR SETTINGS PRESCRIBED. ALARMS SET PER PROTOCOL AND AUDIBLE. VENT PLUGGED IN TO RED OUTLET. AMBU BAG AND BACK UP TRACH AT BED SIDE. NO DISTRESS NOTED. Addendum: 08/26/19 at 1543 by HILLARY SANTACRUZ RT Amended: Links added.
--- NOTE | 2019-08-26 16:00 | NUR ---
ICU/RN: Amikacin trough pending; per lab - send out. Will await results prior to administration of Amikacin. Rx aware.
[2019-08-26] MEDS: ACETAMINOPHEN 650 MG/20.3 ML UDC NG PRN (16:47)
--- NOTE | 2019-08-26 17:00 | NUR ---
ICU/RN: Cooling measures in place, tylenol administered. ST 120's on monitor.
[2019-08-26] MEDS: PHENYLEPHRINE 80 MG in IV NS 0.9% 250 ML IV PRN (18:45)
--- NOTE | 2019-08-26 18:45 | NUR ---
ICU/RN: Neosynephrine restarted for BP support; noted with persistent hypotension in 70-80's SBP. Rx called for extra bag; awaiting Amikacin trough levels for dosing. Pending delivery of Aristocortn - drug currently not available.
--- NOTE | 2019-08-26 20:00 | NUR ---
RN NOTES RECEIVED PATIENT IN BED RESTING COMFORTABLY WITH NO APPARENT DISTRESS. BREATHING EVEN AND UNLABORED. VENT SETTING WELL TOLERATING.PATIENT IS OBTUNDED. NO PHYSICAL MANIFESTATION OF PAIN OR DISCOMFORT NOTED AT THIS TIME. ERNESTO CATH AND LEFT UPPER ARM MIDLINE ARE PATIENT AND INTACT. ALL SAFETY MEASURES ARE IN PLACE. WILL CONTINUE TO MONITOR.
[2019-08-26] MEDS: COLISTIMETHATE SODIUM 100 MG in IV NS 0.9% 50 ML IV SCH (20:42)
--- NOTE | 2019-08-26 20:48 | NUR ---
PT RCVD SARAH'D ON MECHANICAL VENT WITH CHARTED SETTINGS. SX DONE. PT TRACH IS PATENT AND SECURE. VENT ALARMS APPEAR TO BE FUNCTIONING PROPERLY. VENT PLUGGED INTO RED OUTLET. AMBU BAG AT BEDSIDE. NO SOB NOTED. Addendum: 08/26/19 at 2048 by OLAMIDE LANDIN RT Amended: Links added.
[2019-08-26] MEDS: INSULIN GLARGINE, 100 UNIT/ML CARTRIDGE SQ SCH (22:49)
[2019-08-27] VITALS (81 sets, daily range): BP systolic 54–170; BP diastolic 19–105
[2019-08-27] MEDS: INSULIN REGULAR, HUMAN 100 UNIT/ML 3 ML VIAL SQ PRN ×4 (01:06→22:57)
--- NOTE | 2019-08-27 01:42 | NUR ---
[facility] 7.9.
[2019-08-27] MEDS: AMIKACIN 300 MG in IV D5W 100 ML IV PRN (02:55)
[2019-08-27 05:31] LABS: BASOPHILS # (AUTO) 0.1 /CMM (0.0-0.2); BASOPHILS % (AUTO) 0.6 % (0.0-2.0); EOSINOPHILS % (AUTO) 10.1 % (0.0-6.0); HEMATOCRIT 30 % (39-51); HEMOGLOBIN 9.4 g/dL (13.5-17.5); LYMPHOCYTES # (AUTO) 3.3 /CMM (0.8-4.8); LYMPHOCYTES % (AUTO) 18.9 % (20.0-44.0); MEAN CORPUSCULAR HGB CONC 31 g/dl (31.0-36.0); MEAN CORPUSCULAR VOLUME 92 fL (80-96); MONOCYTES # (AUTO) 1.3 /CMM (0.1-1.30); MONOCYTES % (AUTO) 7.2 % (2.0-12.0); NEUTROPHILS # (AUTO) 11.1 /CMM (1.8-8.9); NEUTROPHILS % (AUTO) 63.2 % (43.0-81.0); PLATELET COUNT (AUTO) 599 /CMM (150-450); RED BLOOD CELL COUNT(AUTO) 3.31 MIL/uL (4.5-6.0); WHITE BLOOD COUNT (AUTO) 17.6 K/uL (4.3-11.0)
[2019-08-27 05:55] LABS: CALCIUM, SERUM 9.7 mg/dL (8.5-10.1); CREATININE 4.2 mg/dL (0.6-1.3); MAGNESIUM 2.3 mg/dL (1.8-2.4); PHOSPHORUS 2.3 mg/dL (2.5-4.9); POTASSIUM 3.4 mmol/L (3.5-5.1)
[2019-08-27] MEDS: BLOOD SUGAR DIAGNOSTIC 1 EACH STRIP IN SCH ×4 (06:13→23:02)
--- NOTE | 2019-08-27 07:06 | NUR ---
RN NOTES Norsynephrine restarted for BP support; noted with persistent hypotension in 70'S SBP.
--- NOTE | 2019-08-27 07:15 | NUR ---
ICU/RN: Received pt afebrile, no distress breathing even and unlabored. Dressings C/D/I. Flexiseal to gravity. ST on monitor. Will continue to monitor pt.
[2019-08-27] MEDS: LACTOBACILLUS RHAMNOSUS GG 1 EACH CAP.SPRINK GT SCH ×2 (08:06→16:42)
[2019-08-27] MEDS: ASPIRIN EC 81 MG TABLET.DR PO SCH (08:06)
[2019-08-27] MEDS: TRIAMCINOLONE ACETONIDE 0.1% CR 15 GM TUBE TP SCH ×2 (08:10→20:09)
[2019-08-27] MEDS: DAKINS QUARTER STRENGTH (0.125%) 480 ML BOTTLE TOP SCH (08:10)
[2019-08-27] MEDS: NYSTATIN TOP POWDER 15 GM BOTTLE TP SCH ×2 (08:11→16:51)
[2019-08-27] MEDS: AMMONIUM LACTATE 227 GM BOTTLE TP SCH ×2 (08:12→20:11)
[2019-08-27] MEDS: Z GUARD REMEDY 4 OZ OINT TP SCH ×2 (08:13→20:10)
[2019-08-27] MEDS: PROSOURCE / PROSTAT (PYXIS) 30 ML UDC GT SCH ×2 (08:21→16:42)
--- NOTE | 2019-08-27 10:00 | NUR ---
ICU/RN: Spoke with Rx Cecilia; informed that pt will be dialyzed this am. Last dose of Amikacin given around 0200 this am. Per Rx, will check trough and administer Amikacin with HD following today's session.
[2019-08-27] MEDS: ONDANSETRON HCL/PF 4 MG/2 ML VIAL IVP PRN (10:36)
[2019-08-27] MEDS: ALBUMIN 25% 25 GM in PREMIX 1 EA IV PRN (10:54)
--- NOTE | 2019-08-27 11:50 | NUR ---
ICU/RN: Pt undergoing HD. Emesis x1 noted; zofran administered as ordered. Dr Sprague at bedside; informed that TF was held, no residuals noted. Per MD, resume tube feeding.
[2019-08-27] MEDS: VITAL AF 1.2 1,000 ML BOTTLE GT PRN (14:37)
--- NOTE | 2019-08-27 16:00 | NUR ---
ICU/RN: Pt noted febrile; cool bed bath and cooling measures implemented. Will administer tylenol. Wound care rendered; tolerated well.
[2019-08-27] MEDS: ACETAMINOPHEN 650 MG/20.3 ML UDC NG PRN (16:46)
--- NOTE | 2019-08-27 18:00 | NUR ---
ICU/RN: Spoke with pt's daughterKathy on the phone. Updated on pt status, and spoke at length regarding pt's condition. Per daughter, "Someone spoke with my sister regarding a meeting with the doctors on Thursday." Asked whether her family would be at bedside, she states "No, my sister and I can't get time off work. 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
[2019-08-27] MEDS: PHENYLEPHRINE 80 MG in IV NS 0.9% 250 ML IV PRN (18:03)
[2019-08-27] MEDS: COLISTIMETHATE SODIUM 100 MG in IV NS 0.9% 50 ML IV SCH (19:53)
--- NOTE | 2019-08-27 20:00 | NUR ---
RECEIVED PT IN BED REMAINS ON VENT AC SETTING WELL TOLERATED , ON TELE ST 108 ON THE MONITOR NO SOB NO DISTRESS NOTED .HOB ELEVATED FOR ASPIRATION PRECAUTION , SUCTION SECRETION DONE AND PRN .RT AT BEDSIDE BREATHING TX GIVEN ORDERED. PTS ON LOW GRADE TEMP- 100.2, COOLING MEASURES PROVIDED .PTURNED AND REPOSITION Q 2 HRS AND PRN . ON HENRIK DRIP AT 60MCG , LEFT ERNESTO CATH ON LEFT FEMORAL INTACT NO BLEEDING NOTED .ABDIEL MIDLINE INTACT AND PATENT .BP STABLE AT THIS TIME 134/67 , ON GT FEEDING VITAL AT 40CC/HR WELL TOLERATED NO RESIDUAL NOTED . DUE MED GIVEN ORDERED WILL CONTINUE TO MONITOR PT.
--- NOTE | 2019-08-27 20:30 | NUR ---
FAMILY AT BEDSIDE , UPDATED WITH PT CURRENT CONDITION , BLOOD PRESSURE DOWN TO 88/57 HR OF 113 RR 18 HENRIK DRIP INCREASE TO 80MCG FROM 60 MCG WILL CONTINUE TO MONITOR PT
--- NOTE | 2019-08-27 21:00 | NUR ---
BP STILL ON 87/34 HR 0F 112 RR 18 , AGAIN HENRIK INCREASE TO 100MCG FROM 80 MCG, FAMILY AT BEDSIDE .AWARE OF BLOOD PRESSURE ,WILL CONTINUE TO MONITOR PT.
[2019-08-27] MEDS: ATORVASTATIN 40 MG TABLET PO SCH (22:04)
--- NOTE | 2019-08-27 22:30 | NUR ---
Pt Bp 156/71 HH102 , erin drip decreased to 80mcg from 100 mcg/min will continue to monitor.
[2019-08-27] MEDS: INSULIN GLARGINE, 100 UNIT/ML CARTRIDGE SQ SCH (22:55)
--- NOTE | 2019-08-27 23:00 | NUR ---
BP OF 135/50 HH 101 RR 20 , HENRIK DRIP AGAIN DECREASE TO 60MCG/MIN FROM 80MCG/MIN,NO SOB NO DISTRESS NOTED SATING 100%,
[2019-08-28] VITALS (52 sets, daily range): BP systolic 84–142; BP diastolic 35–91
[2019-08-28] MEDS: ACETAMINOPHEN 650 MG/20.3 ML UDC NG PRN ×2 (00:26→13:23)
[2019-08-28] MEDS: MORPHINE SULFATE INJ 2 MG/ML DISP.SYRIN IV PRN (03:35)
--- NOTE | 2019-08-28 04:00 | NUR ---
BP 128/49 HH92 RR18 TEMP 98.2 O2 SAT 100%, HENRIK DRIP DECREASE TO 40MCGFROM 60MCG.
--- NOTE | 2019-08-28 04:00 | NUR ---
bed bath , and wound treatments done as ordered .
[2019-08-28 04:49] LABS: BASOPHILS # (AUTO) 0.1 /CMM (0.0-0.2); BASOPHILS % (AUTO) 0.6 % (0.0-2.0); EOSINOPHILS % (AUTO) 10.5 % (0.0-6.0); HEMATOCRIT 30 % (39-51); HEMOGLOBIN 9.1 g/dL (13.5-17.5); LYMPHOCYTES # (AUTO) 4.3 /CMM (0.8-4.8); LYMPHOCYTES % (AUTO) 22.4 % (20.0-44.0); MEAN CORPUSCULAR HGB CONC 31 g/dl (31.0-36.0); MEAN CORPUSCULAR VOLUME 91 fL (80-96); MONOCYTES # (AUTO) 1.4 /CMM (0.1-1.30); MONOCYTES % (AUTO) 7.4 % (2.0-12.0); NEUTROPHILS # (AUTO) 11.4 /CMM (1.8-8.9); NEUTROPHILS % (AUTO) 59.1 % (43.0-81.0); PLATELET COUNT (AUTO) 574 /CMM (150-450); RED BLOOD CELL COUNT(AUTO) 3.26 MIL/uL (4.5-6.0); WHITE BLOOD COUNT (AUTO) 19.4 K/uL (4.3-11.0)
[2019-08-28 05:30] LABS: CALCIUM, SERUM 10.2 mg/dL (8.5-10.1); CREATININE 3.5 mg/dL (0.6-1.3); POTASSIUM 3.2 mmol/L (3.5-5.1)
[2019-08-28] MEDS: INSULIN REGULAR, HUMAN 100 UNIT/ML 3 ML VIAL SQ PRN ×3 (06:09→18:39)
[2019-08-28] MEDS: BLOOD SUGAR DIAGNOSTIC 1 EACH STRIP IN SCH ×3 (06:10→16:53)
[2019-08-28] MEDS: LACTOBACILLUS RHAMNOSUS GG 1 EACH CAP.SPRINK GT SCH ×2 (08:49→16:49)
[2019-08-28] MEDS: ASPIRIN EC 81 MG TABLET.DR PO SCH (08:49)
[2019-08-28] MEDS: Z GUARD REMEDY 4 OZ OINT TP SCH ×2 (08:50→21:46)
[2019-08-28] MEDS: AMMONIUM LACTATE 227 GM BOTTLE TP SCH ×2 (08:51→21:47)
[2019-08-28] MEDS: NYSTATIN TOP POWDER 15 GM BOTTLE TP SCH ×2 (08:51→16:53)
[2019-08-28] MEDS: PROSOURCE / PROSTAT (PYXIS) 30 ML UDC GT SCH ×2 (08:52→16:53)
[2019-08-28] MEDS: TRIAMCINOLONE ACETONIDE 0.1% CR 15 GM TUBE TP SCH ×2 (08:52→21:48)
[2019-08-28] MEDS: DAKINS QUARTER STRENGTH (0.125%) 480 ML BOTTLE TOP SCH (08:53)
[2019-08-28] MEDS ORDERED: POTASSIUM CHLORIDE 20 MEQ POWDER PACKET GT ONE (13:00)
[2019-08-28] MEDS: VITAL AF 1.2 1,000 ML BOTTLE GT PRN (16:49)
[2019-08-28] MEDS: PHENYLEPHRINE 80 MG in IV NS 0.9% 250 ML IV PRN (16:49)
--- NOTE | 2019-08-28 20:00 | NUR ---
BRAKE RIDER NOTE RECEIVED PT IN BED OBTUNDED. NO DISTRESS OR DISCOMFORT NOTED. NO S/S OF PAIN NOTED. ON TRACH/VENT TOLERATING THE SETTINGS WELL. ON TELE MONITOR SR/ST WITH INVERTED T WAVE, PAC HR 100. DECUB DRESSING I/C/D. PT ON FLEX SEAL, INTACT AND PATENT, DRAINING BROWNISH STOOL. LT FEMORAL WITH ERNESTO CATH INTACT WITH DRESSING ON. ABDIEL MIDLINE INTACT AND PATENT HENRIK DRIP INFUSING AT 40 MCG/MIN. B/P 110/45. NO S/S OF INFILTRATION NOTED. GTF VITAL AF 1.2 INFUSING WELL AT 40 ML/HR, 0 ML RESIDUAL NOTED. KEPT HIM DRY AND CLEAN. REPOSITION HIM FOR SKIN MANAGEMENT. SIDE RAILS UP X 3 AND CALL LIGHT WITHIN REACH. VSS. CONTINUE TO MONTOR HIM.
[2019-08-28] MEDS: COLISTIMETHATE SODIUM 100 MG in IV NS 0.9% 50 ML IV SCH (20:18)
[2019-08-28] MEDS: ATORVASTATIN 40 MG TABLET PO SCH (21:44)
[2019-08-29] VITALS (77 sets, daily range): BP systolic 49–170; BP diastolic 27–101
[2019-08-29] MEDS: BLOOD SUGAR DIAGNOSTIC 1 EACH STRIP IN SCH ×4 (00:03→20:08)
[2019-08-29] MEDS: INSULIN GLARGINE, 100 UNIT/ML CARTRIDGE SQ SCH ×2 (00:05→23:07)
[2019-08-29] MEDS: INSULIN REGULAR, HUMAN 100 UNIT/ML 3 ML VIAL SQ PRN ×4 (00:06→23:08)
[2019-08-29] MEDS: ACETAMINOPHEN 650 MG/20.3 ML UDC NG PRN ×3 (00:11→21:41)
--- NOTE | 2019-08-29 02:53 | NUR ---
GENERAL TECHNICIAN NOTE NOTED BP DROPPED TO 75/48, INCREASED HENRIK DRIP TO 60 MCG/MIN PER MD ORDER. B/P CAME BACK UP 123/53. CONTINUE TO MONITOR HIM.
[2019-08-29 05:08] LABS: BASOPHILS # (AUTO) 0.2 /CMM (0.0-0.2); EOSINOPHILS % (AUTO) 7.1 % (0.0-6.0); HEMATOCRIT 29 % (39-51); HEMOGLOBIN 8.9 g/dL (13.5-17.5); LYMPHOCYTES # (AUTO) 4.2 /CMM (0.8-4.8); LYMPHOCYTES % (AUTO) 17.9 % (20.0-44.0); MEAN CORPUSCULAR HGB CONC 31 g/dl (31.0-36.0); MEAN CORPUSCULAR VOLUME 93 fL (80-96); MONOCYTES # (AUTO) 1.5 /CMM (0.1-1.30); MONOCYTES % (AUTO) 6.4 % (2.0-12.0); NEUTROPHILS % (AUTO) 67.6 % (43.0-81.0); PLATELET COUNT (AUTO) 581 /CMM (150-450); RED BLOOD CELL COUNT(AUTO) 3.11 MIL/uL (4.5-6.0); WHITE BLOOD COUNT (AUTO) 23.6 K/uL (4.3-11.0)
[2019-08-29 05:15] LABS: CALCIUM, SERUM 10.1 mg/dL (8.5-10.1); CREATININE 4.3 mg/dL (0.6-1.3); MAGNESIUM 2.2 mg/dL (1.8-2.4); PHOSPHORUS 1.9 mg/dL (2.5-4.9); POTASSIUM 4.4 mmol/L (3.5-5.1)
--- NOTE | 2019-08-29 06:57 | NUR ---
MANAGED SERVICES CONSULTANT NOTE PT REMAIN IN BED OBTUNDED. NO CHANGE IN CONDITION. NORSYNEPHRINE 80 MG INFUSING AT 60 MCG/MIN, B/P WNL. ON TELE MONITOR SR/ST WITH INVERTED T WAVE, PAC PVC HR 114. DRESSING ON DECUB INTACT, GTF INFUSING WELL, 0 ML RESIDUAL NOTED. FLEXI SEAL INTACT AND PATENT DRAINING WELL. REPOSITION HIM Q2H, KEPT HIM DRY AND CLEAN. ALL NEEDS ATTENDED. ENDORSE TO DAY SHIFT NURSE FOR CONTINUE TO CARE.
[2019-08-29] MEDS: ONDANSETRON HCL/PF 4 MG/2 ML VIAL IVP PRN (07:56)
[2019-08-29] MEDS: PROSOURCE / PROSTAT (PYXIS) 30 ML UDC GT SCH ×2 (08:21→16:34)
[2019-08-29] MEDS: ASPIRIN EC 81 MG TABLET.DR PO SCH (08:21)
[2019-08-29] MEDS: LACTOBACILLUS RHAMNOSUS GG 1 EACH CAP.SPRINK GT SCH ×2 (08:21→16:34)
[2019-08-29] MEDS: METOCLOPRAMIDE HCL 10 MG/2 ML VIAL IV SCH ×2 (11:13→20:42)
[2019-08-29] MEDS ORDERED: NEUTRA PHOS 1 POWD.PACKET GT ONE ×2 (11:30→16:00)
--- NOTE | 2019-08-29 12:17 | NUR ---
RN NOTES 0730-RECEIVED PATIENT FROM RN. PATIENT REMAISN ON TRACHE TO VENT, ALSO ON PHENYLEPHRINE DRIP FOR BP SUPPORT. PATIENT TACHYCARDIC, TEMP @ 100'S.PATIENT POSIITONED FOR COMFROT AND SAFETY. 1130-PATIENT VOMITE AND HAD RESIDUALS EARLIER, FEEDINGS HELD X2 HOURS, RESTRATED FEEDINGS AT LOWER RATE, ANOTHER EMESIS, DR RAMIRES NOTIFIED , WITH ORDERS. PATIENT DAUGHTER INGRID ALSO CALLED FOR UPDATE
[2019-08-29] MEDS: PHENYLEPHRINE 80 MG in IV NS 0.9% 250 ML IV PRN (12:23)
[2019-08-29] MEDS: Z GUARD REMEDY 4 OZ OINT TP SCH ×2 (12:25→21:30)
[2019-08-29] MEDS: AMMONIUM LACTATE 227 GM BOTTLE TP SCH ×2 (12:26→21:29)
[2019-08-29] MEDS: POLYVINYL ALCOHOL 15 ML BOTTLE EACHEYE PRN (12:26)
[2019-08-29] MEDS: TRIAMCINOLONE ACETONIDE 0.1% CR 15 GM TUBE TP SCH ×2 (15:54→21:30)
[2019-08-29] MEDS: NYSTATIN TOP POWDER 15 GM BOTTLE TP SCH ×2 (15:54→17:47)
[2019-08-29] MEDS ORDERED: IV NS 0.9% 250 ML IV ONE ×2 (17:30→17:45)
[2019-08-29] MEDS: DAKINS QUARTER STRENGTH (0.125%) 480 ML BOTTLE TOP SCH (17:47)
[2019-08-29] MEDS ORDERED: FEE PK DOSING 1 MIN EA MC ONE (19:45)
[2019-08-29] MEDS ORDERED: VANCOMYCIN 1 GM in IV D5W 250 ML IV ONE (20:00)
[2019-08-29] MEDS ORDERED: VANCOMYCIN 500 MG in IV D5W 100 ML IV PRN (20:00)
--- NOTE | 2019-08-29 20:00 | NUR ---
DIRECTOR PRODUCT NOTE RECEIVED PT IN BED OBTUNDED. NO DISTRESS OR DISCOMFORT NOTED AT THIS TIME, NO S/S OF PAIN NOTED. ON TRACH/VENT TOLERATING THE SETTINGS WELL. ON TELE MONITOR SR/ST WITH PVC'S HR 100'S DECUB DRESSING I/C/D. PT ON FLEX SEAL, INTACT AND PATENT, DRAINING BROWNISH/LIQUID STOOL. LT FEMORAL ERNESTO CATH INTACT WITH DRESSING ON. ABDIEL MIDLINE INTACT AND PATENT HENRIK DRIP INFUSING AT 60 MCG/MIN. NO S/S OF INFILTRATION NOTED. GTF VITAL AF 1.2 INFUSING WELL AT 25 ML/HR, 0 ML RESIDUAL NOTED. KEPT HIM DRY AND CLEAN. REPOSITION HIM FOR SKIN MANAGEMENT AND COMFORT. SIDE RAILS UP X 3 AND CALL LIGHT WITHIN REACH. HOB UP AT 45 DEGREE.WILL CONTINUE TO MONITOR PATIENT CLOSELY.
[2019-08-29] MEDS: COLISTIMETHATE SODIUM 100 MG in IV NS 0.9% 50 ML IV SCH (20:43)
[2019-08-29] MEDS: METRONIDAZOLE 500 MG TABLET PO SCH (21:41)
[2019-08-29] MEDS: ATORVASTATIN 40 MG TABLET PO SCH (22:59)
[2019-08-30] VITALS (97 sets, daily range): BP systolic 53–173; BP diastolic 30–94
[2019-08-30] MEDS: BLOOD SUGAR DIAGNOSTIC 1 EACH STRIP IN SCH ×4 (00:08→17:31)
[2019-08-30] MEDS: INSULIN REGULAR, HUMAN 100 UNIT/ML 3 ML VIAL SQ PRN ×4 (00:17→17:32)
[2019-08-30] MEDS: METOCLOPRAMIDE HCL 10 MG/2 ML VIAL IV SCH ×3 (03:22→19:54)
[2019-08-30] MEDS: PHENYLEPHRINE 80 MG in IV NS 0.9% 250 ML IV PRN (05:00)
[2019-08-30] MEDS: METRONIDAZOLE 500 MG TABLET PO SCH ×3 (05:16→20:52)
[2019-08-30 06:42] LABS: CALCIUM, SERUM 10.4 mg/dL (8.5-10.1); CREATININE 3.6 mg/dL (0.6-1.3); PHOSPHORUS 2.6 mg/dL (2.5-4.9); POTASSIUM 4.3 mmol/L (3.5-5.1)
--- NOTE | 2019-08-30 07:30 | NUR ---
UNDERGROUND BOLTING MACHINE OPERATOR INITIAL NOTE RECEIVED PATIENT AWAKE, NON-VERBAL, VENT DEPENDENT. DOES NOT FOLLOW COMMANDS. NO RESPIRATORY DISTRESS NOTED. TOLERATING CURRENT VENT SETTINGS. ON TELE MONITOR SR. GT PATENT, INTACT, IN PLACE, NOTED WITH RESIDUAL >100 WITH GTF RATE AT 25ML/HR. WILL HOLD AT THIS TIME. SKIN WARM AND DRY TO TOUCH. FLEXISEAL IN PLACE DRAINING BY GRAVITY, WITH LOOSE BROWN OUTPUT. ABDIEL MIDLINE PATENT AND INTACT, WITH HENRIK AT 70MCG/MIN. ISOLATION PRECAUTIONS OBSERVED. HOB ELEVATED. SIDE RAILS UP AND LOCKED. TURNED AND REPOSITIONED. WILL CONTINUE TO MONITOR.
--- NOTE | 2019-08-30 07:41 | NUR ---
GENERAL COUNSELOR NOTE PT REMAIN IN BED OBTUNDED. NO CHANGE IN CONDITION. NORSYNEPHRINE INFUSING AT 70 MCG/MIN, B/P WNL. ON TELE MONITOR SR/ST WITH PVC PVC . WOUND CARE PROVIDED, DRESSING ON DECUB INTACT, GTF INFUSING WELL, NO RESIDUAL NOTED. FLEXI SEAL INTACT AND PATENT DRAINING WELL. REPOSITIONED Q2H, KEPT DRY AND CLEAN. ALL NEEDS ATTENDED. ENDORSED TO DAY SHIFT NURSE FOR CONTINUE TO CARE.
--- NOTE | 2019-08-30 07:45 | NUR ---
RT Pt received trached on mechanical ventilation with noted settings. Vent is plugged into red outlet. No SOB or respiratory distress noted. Addendum: 08/30/19 at 1023 by SAJAN BOLANOS RT Amended: Links added.
[2019-08-30] MEDS: DAKINS QUARTER STRENGTH (0.125%) 480 ML BOTTLE TOP SCH (08:26)
[2019-08-30] MEDS: ASPIRIN EC 81 MG TABLET.DR PO SCH (08:26)
[2019-08-30] MEDS: LACTOBACILLUS RHAMNOSUS GG 1 EACH CAP.SPRINK GT SCH ×2 (08:26→17:32)
[2019-08-30] MEDS: VITAL AF 1.2 1,000 ML BOTTLE GT PRN (08:26)
[2019-08-30] MEDS: PROSOURCE / PROSTAT (PYXIS) 30 ML UDC GT SCH ×2 (08:26→17:31)
[2019-08-30] MEDS: AMMONIUM LACTATE 227 GM BOTTLE TP SCH ×2 (08:27→20:55)
[2019-08-30] MEDS: NYSTATIN TOP POWDER 15 GM BOTTLE TP SCH ×2 (08:27→17:32)
[2019-08-30] MEDS: Z GUARD REMEDY 4 OZ OINT TP SCH ×2 (08:27→20:54)
[2019-08-30] MEDS: TRIAMCINOLONE ACETONIDE 0.1% CR 15 GM TUBE TP SCH ×2 (08:27→20:54)
[2019-08-30] MEDS: COLISTIMETHATE SODIUM 100 MG in IV NS 0.9% 50 ML IV SCH (19:54)
--- NOTE | 2019-08-30 20:00 | NUR ---
PROJECT SAFETY MANAGER - NOTES - RECEIVED PATIENT AWAKE, NON-VERBAL, VENT DEPENDENT. DOES NOT FOLLOW COMMANDS. NO RESPIRATORY DISTRESS NOTED. TOLERATING CURRENT VENT SETTINGS. ON TELE MONITOR SR. GT PATENT, INTACT, IN PLACE, NOTED WITH RESIDUAL 80 WITH GTF RATE AT 25 ML/HR. SKIN WARM AND DRY TO TOUCH. FLEXISEAL IN PLACE DRAINING BY GRAVITY, WITH LOOSE BROWN OUTPUT. ABDIEL MIDLINE PATENT AND INTACT, WITH HENRIK AT 60 MCG/MIN. ISOLATION PRECAUTIONS OBSERVED. HOB ELEVATED. SIDE RAILS UP AND LOCKED. TURNED AND REPOSITIONED. WILL CONTINUE TO MONITOR.
[2019-08-30] MEDS: ATORVASTATIN 40 MG TABLET PO SCH (21:57)
[2019-08-30] MEDS: INSULIN GLARGINE, 100 UNIT/ML CARTRIDGE SQ SCH (22:03)
[2019-08-31] VITALS (102 sets, daily range): BP systolic 52–171; BP diastolic 25–90
[2019-08-31] MEDS: BLOOD SUGAR DIAGNOSTIC 1 EACH STRIP IN SCH ×5 (00:29→23:02)
[2019-08-31] MEDS: INSULIN REGULAR, HUMAN 100 UNIT/ML 3 ML VIAL SQ PRN ×6 (00:37→23:02)
[2019-08-31] MEDS: METOCLOPRAMIDE HCL 10 MG/2 ML VIAL IV SCH ×3 (02:05→18:01)
[2019-08-31] MEDS: PHENYLEPHRINE 80 MG in IV NS 0.9% 250 ML IV PRN ×2 (02:08→15:59)
[2019-08-31] MEDS: METRONIDAZOLE 500 MG TABLET PO SCH ×3 (05:38→21:30)
[2019-08-31 06:34] LABS: BASOPHILS # (AUTO) 0.3 /CMM (0.0-0.2); BASOPHILS % (AUTO) 1.4 % (0.0-2.0); EOSINOPHILS % (AUTO) 15.5 % (0.0-6.0); HEMATOCRIT 30 % (39-51); LYMPHOCYTES # (AUTO) 3.9 /CMM (0.8-4.8); LYMPHOCYTES % (AUTO) 20.9 % (20.0-44.0); MEAN CORPUSCULAR HGB CONC 30 g/dl (31.0-36.0); MEAN CORPUSCULAR VOLUME 94 fL (80-96); MONOCYTES # (AUTO) 1.5 /CMM (0.1-1.30); MONOCYTES % (AUTO) 8.1 % (2.0-12.0); NEUTROPHILS # (AUTO) 10.2 /CMM (1.8-8.9); NEUTROPHILS % (AUTO) 54.1 % (43.0-81.0); PLATELET COUNT (AUTO) 621 /CMM (150-450); RED BLOOD CELL COUNT(AUTO) 3.13 MIL/uL (4.5-6.0); WHITE BLOOD COUNT (AUTO) 18.8 K/uL (4.3-11.0)
[2019-08-31 06:46] LABS: CALCIUM, SERUM 10.3 mg/dL (8.5-10.1); CREATININE 4.6 mg/dL (0.6-1.3); POTASSIUM 3.8 mmol/L (3.5-5.1)
--- NOTE | 2019-08-31 07:05 | NUR ---
RN NOTES RECEIVED PATIENT ON BED, NON-VERBAL, VENT DEPENDENT. DOES NOT FOLLOW COMMANDS. NO RESPIRATORY DISTRESS NOTED. TOLERATING CURRENT VENT SETTINGS. ON TELE MONITOR SR-ST , TF AT 25CC/HR RUNNING VIA GT , NO RESIDUAL NOTED , SKIN WARM AND DRY TO TOUCH. FLEXISEAL IN PLACE DRAINING BY GRAVITY, WITH LOOSE BROWN OUTPUT. ABDIEL MIDLINE PATENT AND INTACT, WITH HENRIK AT 50 MCG/MIN. ISOLATION PRECAUTIONS OBSERVED. HOB ELEVATED. SIDE RAILS UPx3 BED LOCKED AND IN LOWEST POSITION, CONTINUE TO MONITOR.
[2019-08-31] MEDS: LACTOBACILLUS RHAMNOSUS GG 1 EACH CAP.SPRINK GT SCH ×2 (08:32→17:34)
[2019-08-31] MEDS: ASPIRIN EC 81 MG TABLET.DR PO SCH (08:32)
[2019-08-31] MEDS: PROSOURCE / PROSTAT (PYXIS) 30 ML UDC GT SCH ×2 (08:34→17:34)
[2019-08-31] MEDS: DAKINS QUARTER STRENGTH (0.125%) 480 ML BOTTLE TOP SCH (08:35)
[2019-08-31] MEDS: NYSTATIN TOP POWDER 15 GM BOTTLE TP SCH ×2 (08:35→17:35)
[2019-08-31] MEDS: AMMONIUM LACTATE 227 GM BOTTLE TP SCH ×2 (08:36→21:47)
[2019-08-31] MEDS: TRIAMCINOLONE ACETONIDE 0.1% CR 15 GM TUBE TP SCH ×2 (08:37→21:46)
[2019-08-31] MEDS: Z GUARD REMEDY 4 OZ OINT TP SCH ×2 (08:37→21:47)
--- NOTE | 2019-08-31 16:00 | NUR ---
RN NOTES PT RECEIVING HD , CONTINUE TO MONITOR
[2019-08-31] MEDS: VITAL AF 1.2 1,000 ML BOTTLE GT PRN (18:04)
--- NOTE | 2019-08-31 18:22 | NUR ---
RN NOTES VSS STABLE, TRACH CARE DONE, PT ON HENRIK AT 100MCG/MIN , TOLERATING TF WELL, WILL ENDORSE TO HORSE TRAINER NURSE FOR CONTINUITY OF CARE .
--- NOTE | 2019-08-31 19:30 | NUR ---
PAD CUTTER NOTE PATIENT RECEIVED IN BED OBTUNDED IN BED, OPENS EYES TO PAINFUL STIMULI. PATIENT VENT DEPENDENT TOLERATING WELL. NO S/S OF ACUTE RESP DISTRESS BREATHING EVEN AND UNLABORED. PATIENT ON TELE MONITOR SR-ST HR 113. PATIENT BP TOLERATING HENRIK AT 100MCG WELL. PATIENT ON GTUBE FEEDING TOLERATING WELL NO VOMITTING NOTE NO RESIDUAL NOTED. PATIENT HOB SEMI FOWLERS, SIDE RAILS UP X 3, SAFETY/ ASPIRATION PRECAUTIONS IN PLACE. RN WILL CONTINUE TO MONITOR FOR CHANGES.
[2019-08-31] MEDS: ACETAMINOPHEN 650 MG/20.3 ML UDC NG PRN (19:42)
[2019-08-31] MEDS: COLISTIMETHATE SODIUM 100 MG in IV NS 0.9% 50 ML IV SCH (19:43)
[2019-08-31] MEDS: ATORVASTATIN 40 MG TABLET PO SCH (21:30)
[2019-08-31] MEDS: INSULIN GLARGINE, 100 UNIT/ML CARTRIDGE SQ SCH (23:00)
[2019-09-01] VITALS (97 sets, daily range): BP systolic 50–168; BP diastolic 28–94
--- NOTE | 2019-09-01 | NUR ---
RN NOTE PATIENT FEBRILE, COOLING MEASURES GIVEN TYLENOL GIVEN, PATIENT TACHY. RN WILL CONTINUE TO MONITOR.
--- NOTE | 2019-09-01 01:30 | NUR ---
RN NOTE BED BATH AND WOUND CARE GIVEN ORDERED. RN WILL CONTINUE TO MONITOR. PATIENT TOLERATED WELL.
[2019-09-01] MEDS: PHENYLEPHRINE 80 MG in IV NS 0.9% 250 ML IV PRN ×3 (03:09→21:25)
[2019-09-01] MEDS: METOCLOPRAMIDE HCL 10 MG/2 ML VIAL IV SCH ×3 (03:21→18:00)
[2019-09-01 04:17] LABS: BASOPHILS # (AUTO) 0.3 /CMM (0.0-0.2); BASOPHILS % (AUTO) 1.5 % (0.0-2.0); HEMATOCRIT 33 % (39-51); LYMPHOCYTES # (AUTO) 4.4 /CMM (0.8-4.8); LYMPHOCYTES % (AUTO) 20.8 % (20.0-44.0); MEAN CORPUSCULAR HGB CONC 30 g/dl (31.0-36.0); MEAN CORPUSCULAR VOLUME 94 fL (80-96); MONOCYTES # (AUTO) 1.9 /CMM (0.1-1.30); NEUTROPHILS # (AUTO) 11.1 /CMM (1.8-8.9); NEUTROPHILS % (AUTO) 52.7 % (43.0-81.0); PLATELET COUNT (AUTO) 526 /CMM (150-450); RED BLOOD CELL COUNT(AUTO) 3.51 MIL/uL (4.5-6.0)
[2019-09-01 04:26] LABS: CALCIUM, SERUM 10.8 mg/dL (8.5-10.1); CREATININE 3.6 mg/dL (0.6-1.3); POTASSIUM 3.2 mmol/L (3.5-5.1)
[2019-09-01] MEDS: METRONIDAZOLE 500 MG TABLET PO SCH ×3 (05:20→21:21)
[2019-09-01] MEDS: BLOOD SUGAR DIAGNOSTIC 1 EACH STRIP IN SCH ×3 (05:20→17:59)
[2019-09-01] MEDS: INSULIN REGULAR, HUMAN 100 UNIT/ML 3 ML VIAL SQ PRN ×3 (05:41→18:00)
[2019-09-01] MEDS: ACETAMINOPHEN 650 MG/20.3 ML UDC NG PRN ×2 (07:00→16:10)
--- NOTE | 2019-09-01 07:21 | NUR ---
RN NOTE REPORT GIVEN TO SANTOS CASTAÑEDA FOR MARKELL.
[2019-09-01] MEDS: POTASSIUM CL. PREMIX PERIPHER. 50 ML IV SCH ×4 (07:46→10:52)
--- NOTE | 2019-09-01 08:45 | NUR ---
ICU/RN: Dr Aj brown; updated on pt status - continues to be febrile.
[2019-09-01] MEDS: ASPIRIN EC 81 MG TABLET.DR PO SCH (08:47)
[2019-09-01] MEDS: PROSOURCE / PROSTAT (PYXIS) 30 ML UDC GT SCH ×2 (08:47→16:10)
[2019-09-01] MEDS: LACTOBACILLUS RHAMNOSUS GG 1 EACH CAP.SPRINK GT SCH ×2 (08:47→16:10)
[2019-09-01] MEDS: TRIAMCINOLONE ACETONIDE 0.1% CR 15 GM TUBE TP SCH ×2 (08:50→21:32)
[2019-09-01] MEDS: NYSTATIN TOP POWDER 15 GM BOTTLE TP SCH ×2 (08:50→16:12)
[2019-09-01] MEDS: DAKINS QUARTER STRENGTH (0.125%) 480 ML BOTTLE TOP SCH (08:51)
[2019-09-01] MEDS: Z GUARD REMEDY 4 OZ OINT TP SCH ×2 (08:51→21:32)
[2019-09-01] MEDS: AMMONIUM LACTATE 227 GM BOTTLE TP SCH ×2 (08:51→21:32)
--- NOTE | 2019-09-01 10:30 | NUR ---
ICU/RN: ANN Jensen at bedside for wound consult; dressings changed by PA. Pt tolerated well.
[2019-09-01] MEDS: HYDROGEL DRESSING 90 GM TUBE TP SCH (12:31)
--- NOTE | 2019-09-01 16:45 | NUR ---
ICU/RN: Pt noted with emesis x1; aspiration precautions in place. TF held. No residuals noted.
[2019-09-01] MEDS: VITAL AF 1.2 1,000 ML BOTTLE GT PRN (16:59)
--- NOTE | 2019-09-01 19:30 | NUR ---
RN NOTE RECEIVED PATIENT OBTUNDED WITH TRACH AND VENT SETTING AC18 TV 500 FIO2 40% NO PEEP. OPENS EYES RESPONSIVE TO TACTILE STIMULI. TOLERATED WELL NO S/S OF ACUTE RESP DISTRESS .PATIENT ON STRICTLY ISOLATION FOR CRE SPUTUM AND KLEBSIELLA PNA. PATIENT ON TELE MONITOR SR-ST HR116. IV SITE INTACT ON ABDIEL MIDLINE RUNNING WITH HENRIK @ 140 MCG/ MIN AND PATENT, WITH GTUBE FEEDING TOLERATING WELL NO VOMITING NOTED, NO RESIDUAL NOTED. PATIENT HAS FLEXISEAL DUE TO LOOSE BM. HOB KEPT ELEVATED,OFFLOADED EXT WITH PILLOWS. TURNED AND REPOSITIONED FOR SKIN CARE. HANDLES GENTLY. KEPT PT CLEAN AND DRY WILL CONTINUE TO MONITOR.
[2019-09-01] MEDS: ATORVASTATIN 40 MG TABLET PO SCH (21:21)
[2019-09-01] MEDS: COLISTIMETHATE SODIUM 100 MG in IV NS 0.9% 50 ML IV SCH (21:26)
[2019-09-01] MEDS: INSULIN GLARGINE, 100 UNIT/ML CARTRIDGE SQ SCH (21:35)
[2019-09-02] VITALS (100 sets, daily range): BP systolic 37–155; BP diastolic 17–92
[2019-09-02] MEDS: BLOOD SUGAR DIAGNOSTIC 1 EACH STRIP IN SCH ×4 (00:26→18:01)
[2019-09-02] MEDS: INSULIN REGULAR, HUMAN 100 UNIT/ML 3 ML VIAL SQ PRN ×4 (00:27→18:02)
[2019-09-02] MEDS: METOCLOPRAMIDE HCL 10 MG/2 ML VIAL IV SCH ×3 (03:17→19:20)
[2019-09-02 04:20] LABS: LYMPHOCYTES # (AUTO) 6.5 /CMM (0.8-4.8); NEUTROPHILS # (AUTO) 10.6 /CMM (1.8-8.9)
[2019-09-02 04:26] LABS: BASOPHILS # (AUTO) 0.3 /CMM (0.0-0.2); BASOPHILS % (AUTO) 1.4 % (0.0-2.0); CALCIUM, SERUM 11.1 mg/dL (8.5-10.1); CREATININE 4.7 mg/dL (0.6-1.3); EOSINOPHILS % (AUTO) 18.9 % (0.0-6.0); HEMATOCRIT 34 % (39-51); LYMPHOCYTES % (AUTO) 26.8 % (20.0-44.0); MEAN CORPUSCULAR HGB CONC 29 g/dl (31.0-36.0); MEAN CORPUSCULAR VOLUME 97 fL (80-96); MONOCYTES # (AUTO) 2.2 /CMM (0.1-1.30); NEUTROPHILS % (AUTO) 43.9 % (43.0-81.0); PLATELET COUNT (AUTO) 600 /CMM (150-450); RED BLOOD CELL COUNT(AUTO) 3.55 MIL/uL (4.5-6.0); WHITE BLOOD COUNT (AUTO) 24.1 K/uL (4.3-11.0)
[2019-09-02] MEDS: METRONIDAZOLE 500 MG TABLET PO SCH ×3 (05:33→21:26)
[2019-09-02] MEDS: ACETAMINOPHEN 650 MG/20.3 ML UDC NG PRN ×2 (05:44→12:53)
[2019-09-02] MEDS: PHENYLEPHRINE 80 MG in IV NS 0.9% 250 ML IV PRN ×3 (05:44→22:10)
--- NOTE | 2019-09-02 07:11 | NUR ---
RN NOTES PATIENT STILL ON PRESSORS. EYES OPEN, TRACH AND VENT SETTING TOLERATED WELL. WITH LOW GRADE FEVER TMAX 100.8 DEGREE FHARENHEIGHT. INCONTINENT CARE RENDERED. CONTINUE WITH STRICT ISOLATION PRECAUTION. ALL DUE MEDICINE TOLERATED WELL VIA IV AND GT. GTF TOLERATED WELL. CONTINUE TO MONITOR BP NEOSYNEPHRINE CONTINUE TITRATED ORDERED. KEPT PT CLEAN AND DRY. TURNED AND REPOSITIONED Q2H AND PRN. WOUND DRESSING DONE AND TOLERATED WELL. ENDORSED CONTINUITY OF CARE TO AM NURSE.
--- NOTE | 2019-09-02 07:40 | NUR ---
CULVERT INSTALLER: pt is obtunded, rest, can open eyes by touch, no grimacing, unable to follow commands, ST 115-118 now, SBP over 90, continue titrate Gómez gtt, O2sat. over 94%, no SOB, GTF residual 80ml, keep HOB over 40, all wounds care done over night by report
--- NOTE | 2019-09-02 08:00 | NUR ---
SPANISH MEDICAL INTERPRETER: is in room, updated with pt.current status, VS, Gómez gtt, neurostatus, I/O, said: Cardizem gtt order is active, can start if HR over 115 with dose 2.5mg/h, max dose 15 mg/h
[2019-09-02] MEDS: PROSOURCE / PROSTAT (PYXIS) 30 ML UDC GT SCH ×2 (09:13→17:00)
[2019-09-02] MEDS: LACTOBACILLUS RHAMNOSUS GG 1 EACH CAP.SPRINK GT SCH ×2 (09:13→18:01)
[2019-09-02] MEDS: ASPIRIN EC 81 MG TABLET.DR PO SCH (09:13)
[2019-09-02] MEDS: DAKINS QUARTER STRENGTH (0.125%) 480 ML BOTTLE TOP SCH (09:14)
[2019-09-02] MEDS: Z GUARD REMEDY 4 OZ OINT TP SCH ×2 (09:15→21:32)
[2019-09-02] MEDS: HYDROGEL DRESSING 90 GM TUBE TP SCH (09:15)
[2019-09-02] MEDS: TRIAMCINOLONE ACETONIDE 0.1% CR 15 GM TUBE TP SCH ×2 (09:16→21:32)
[2019-09-02] MEDS: NYSTATIN TOP POWDER 15 GM BOTTLE TP SCH ×2 (09:16→17:00)
[2019-09-02] MEDS: AMMONIUM LACTATE 227 GM BOTTLE TP SCH ×2 (09:17→21:31)
--- NOTE | 2019-09-02 09:43 | NUR ---
TESTING PROJECTS ADMINISTRATOR: HR 110-115 now, SBP over 95, continue titrate Gómez gtt, ANN Tong, Lyly,TOOL CRIB MANAGER were in room/updated
--- NOTE | 2019-09-02 10:00 | NUR ---
JAVA J2EE TECHNICAL LEAD: HR 100-115, GTF residual is 60ml
--- NOTE | 2019-09-02 10:14 | NUR ---
TOPSTITCHER LOCKSTITCH: got info: HD is today, notified pharmacy
--- NOTE | 2019-09-02 10:30 | NUR ---
PARTS INTERPRETER: pt daughter called/updated
--- NOTE | 2019-09-02 11:08 | NUR ---
GRADING CLERK: Tomás, pharmacist said ok to give vanco after HD today
--- NOTE | 2019-09-02 12:07 | NUR ---
EDITOR MAP: GTF residual 120ml, hold GTF for 2hrs
--- NOTE | 2019-09-02 13:02 | NUR ---
NEGOTIATOR: updated with pt.HR, BP, Gómez gtt, HD today
--- NOTE | 2019-09-02 17:00 | NUR ---
INSPECTOR SHELLS: HD started and stopped in 20 mins d/t HD cath problem by HD nurse report
[2019-09-02] MEDS ORDERED: ALTEPLASE CATHFLO 2 MG/VIAL IV ONE (17:18)
--- NOTE | 2019-09-02 18:08 | NUR ---
RT NOTE PT REMAINS MECHANICALLY VENTILATED VIA CUFFED TRACHEOSTOMY TUBE. CUFF INFLATED. TRACH TUBE MIDLINE AND SECURE. VENTILATOR SETTINGS PRESCRIBED. ALARMS SET PER PROTOCOL AND AUDIBLE. VENT PLUGGED IN TO RED OUTLET. AMBU BAG AT BED SIDE. NO DISTRESS NOTED. Addendum: 09/02/19 at 1808 by HILLARY SANTACRUZ RT Amended: Links added.
[2019-09-02] MEDS: ATORVASTATIN 40 MG TABLET PO SCH (21:26)
[2019-09-02] MEDS: COLISTIMETHATE SODIUM 100 MG in IV NS 0.9% 50 ML IV SCH (21:26)
[2019-09-02] MEDS: INSULIN GLARGINE, 100 UNIT/ML CARTRIDGE SQ SCH (22:00)
[2019-09-03] VITALS (74 sets, daily range): BP systolic 56–167; BP diastolic 19–123
[2019-09-03] MEDS: BLOOD SUGAR DIAGNOSTIC 1 EACH STRIP IN SCH ×5 (00:05→23:37)
[2019-09-03] MEDS: INSULIN REGULAR, HUMAN 100 UNIT/ML 3 ML VIAL SQ PRN ×6 (00:07→23:16)
[2019-09-03] MEDS: METRONIDAZOLE 500 MG TABLET PO SCH ×3 (04:12→20:58)
[2019-09-03] MEDS: METOCLOPRAMIDE HCL 10 MG/2 ML VIAL IV SCH ×3 (04:12→18:03)
[2019-09-03] MEDS: ACETAMINOPHEN 650 MG/20.3 ML UDC NG PRN (04:12)
[2019-09-03 04:26] LABS: BASOPHILS # (AUTO) 0.5 /CMM (0.0-0.2); BASOPHILS % (AUTO) 2.2 % (0.0-2.0); EOSINOPHILS % (AUTO) 19.5 % (0.0-6.0); HEMATOCRIT 32 % (39-51); HEMOGLOBIN 9.5 g/dL (13.5-17.5); LYMPHOCYTES # (AUTO) 4.7 /CMM (0.8-4.8); LYMPHOCYTES % (AUTO) 19.7 % (20.0-44.0); MEAN CORPUSCULAR HGB CONC 30 g/dl (31.0-36.0); MEAN CORPUSCULAR VOLUME 96 fL (80-96); MONOCYTES # (AUTO) 2.3 /CMM (0.1-1.30); MONOCYTES % (AUTO) 9.5 % (2.0-12.0); NEUTROPHILS # (AUTO) 11.8 /CMM (1.8-8.9); NEUTROPHILS % (AUTO) 49.1 % (43.0-81.0); PLATELET COUNT (AUTO) 530 /CMM (150-450); WHITE BLOOD COUNT (AUTO) 24.1 K/uL (4.3-11.0)
[2019-09-03 04:39] LABS: CALCIUM, SERUM 11.3 mg/dL (8.5-10.1); CREATININE 5.2 mg/dL (0.6-1.3); POTASSIUM 3.8 mmol/L (3.5-5.1)
[2019-09-03] MEDS: PHENYLEPHRINE 80 MG in IV NS 0.9% 250 ML IV PRN ×2 (05:56→11:19)
--- NOTE | 2019-09-03 07:10 | NUR ---
CAGE UNLOADER NOTES RECEIVED BEDSIDE REPORT. PT NON VERBAL SPONTANEOUS EYE OPENING. NO S/S OF RESPIRATORY DISTRESS TOLERATING TRACH SHILEY #8 VENT SETTINGS ORDERED SINUS-SINUS TACHY ON MONITOR . FLEXI SEAL INTACT DRAINING LIQUID BROWN STOOL. ANURIC LAST HD ATTEMPT 09/02 CATH FEMORAL CATH CLOGGED WILL ATTEMPT TODAY GTF FEEDING VITAL 1.2 @ 30 ML/HR WITH GOAL OF 40 ML/HR ON HENRIK @ 220MCG TO SUSTAIN B/P VIA ABDIEL MIDLINE. SAFETY AND ASPIRATION PRECAUTIONS IN PLACE BED IN LOW LOCKED POSITION HOB ELEVATED. WILL CONT TO MONITOR ACCORDINGLY
--- NOTE | 2019-09-03 07:16 | NUR ---
RN NOTES PATIENT RESTING IN BED WITH NO DISTRESS NOTED. BREATHING EVEN AND UNLABORED. VENT SETTING WELL TOLERATED. NO PHYSICAL MANIFESTATION OF PAIN OR DISCOMFORT. CONTINUES TO BE UNSTABLE WITH HENRIK DRIP FOR LOW BLOOD PRESSURE. REMAINS TACHYCARDIC, COOLING MEASURES PROVIDED. ENDORSED TO AM SHIFT FOR CONTINUITY OF CARE.
[2019-09-03] MEDS: ASPIRIN EC 81 MG TABLET.DR PO SCH (08:49)
[2019-09-03] MEDS: HYDROGEL DRESSING 90 GM TUBE TP SCH (08:49)
[2019-09-03] MEDS: TRIAMCINOLONE ACETONIDE 0.1% CR 15 GM TUBE TP SCH ×2 (08:49→21:00)
[2019-09-03] MEDS: DAKINS QUARTER STRENGTH (0.125%) 480 ML BOTTLE TOP SCH (08:49)
[2019-09-03] MEDS: LACTOBACILLUS RHAMNOSUS GG 1 EACH CAP.SPRINK GT SCH ×2 (08:49→17:21)
[2019-09-03] MEDS: PROSOURCE / PROSTAT (PYXIS) 30 ML UDC GT SCH ×2 (08:50→17:21)
[2019-09-03] MEDS: AMMONIUM LACTATE 227 GM BOTTLE TP SCH ×2 (08:50→21:01)
[2019-09-03] MEDS: Z GUARD REMEDY 4 OZ OINT TP SCH ×2 (08:50→21:00)
[2019-09-03] MEDS: NYSTATIN TOP POWDER 15 GM BOTTLE TP SCH ×2 (08:50→17:21)
--- NOTE | 2019-09-03 10:30 | NUR ---
NOTIFIED BY HD TECH BILL THAT PT UNABLE TO TOLERATE HD D/T LOW BP.
[2019-09-03] MEDS: ALBUMIN 25% 25 GM in PREMIX 1 EA IV PRN (11:20)
[2019-09-03] MEDS: HYDROCORTISONE SOD SUCCINATE 100 MG/2 ML VIAL IV SCH ×2 (12:44→17:21)
[2019-09-03] MEDS: VITAL AF 1.2 1,000 ML BOTTLE GT PRN (15:14)
--- NOTE | 2019-09-03 16:40 | NUR ---
BED BATH GIVEN WOUND AND ORAL CARE RENDERED
--- NOTE | 2019-09-03 17:42 | NUR ---
NYSTATIN NOT APPLIED PT HAND DRIED AND CRACK WILL F/U WITH WOUND MD
--- NOTE | 2019-09-03 18:49 | NUR ---
ICU NOTES PT REMAINED AFEBRILE THROUGHOUT SHIFT. NO S/S OF RESPIRATORY DISTRESS TOLERATED VENT ORDERED. NO S/S OF PAIN NOTED. UNABLE TO TOLERATE HD TODAY. HD PATENT. GTF VITAL 1.2 INCREASED TO 40 ML/HR TOLERATING WELL NO VOMITING . RECTAL TUBE IN PLACE DRAINING LIQUID BROWN LOOSE STOOL. MIDLINE TO ABDIEL RUNNING HENRIK TITRATED DOWN TO 40 MCG/ML REPOSITIONED FOR COMFORT ALL NEEDS MET. SAFETY PRECAUTIONS IN PLACE BED IN LOW LOCKED POSITION WILL ENDORSE TO NOC
--- NOTE | 2019-09-03 19:12 | NUR ---
REPORT ENDORSED TO NOC
--- NOTE | 2019-09-03 19:25 | NUR ---
ICU/RN notes, Patient received in bed, in no acute distress, breathing even and unlabored with prescribed vent settings, trach intact, patent, No SOB noted, Patient obtunded, No S/S of pain at this time, no facial grimacing noted, Left arm mid line in place, patent with erin running as ordered, BP Stable, rectal tube in place, draining well with brown, liquid color stool, g-tube in place, patent, connected to feeding as ordered, no residual at this time, HOB elevated semi coleman position, Safety maintained, bed at the lowest locked position, isolation precautions maintained, Clean and dry. Will continue to monitor as per plan of care.
--- NOTE | 2019-09-03 20:28 | NUR ---
RECEIVED PT TRACH ON VENT. NO DISTRESS. PT TOLERATING VENT SETTINGS. SX'D AND LAVAGED FOR SML AMT OF THICK YELLOW SECRETIONS. VENT ALARMS SET AND AUDIBLE. TRACH SECURE CUFF PHYSICIAN'S AIDE. [facility]UE [facility] V[facility] SUPPORT. Addendum: 09/03/19 at 2028 by AUDI KOHLI RT Amended: Links added.
[2019-09-03] MEDS: ATORVASTATIN 40 MG TABLET PO SCH (20:58)
[2019-09-03] MEDS: COLISTIMETHATE SODIUM 100 MG in IV NS 0.9% 50 ML IV SCH (20:58)
[2019-09-03] MEDS: POLYVINYL ALCOHOL 15 ML BOTTLE EACHEYE PRN (20:59)
--- NOTE | 2019-09-03 21:16 | NUR ---
Patient blood sugar 494 at this time, lantus given as ordered. called Dr. Nelson at this time, waiting for call, in no acute distress, will continue to monitor
[2019-09-03] MEDS: INSULIN GLARGINE, 100 UNIT/ML CARTRIDGE SQ SCH (21:21)
--- NOTE | 2019-09-03 21:22 | NUR ---
Dr. Nelson called back at this time, relayed patient condition, and sugar levels with new order to cover patient with regular insulin 12 units IVP. Noted and carried out.
[2019-09-03] MEDS ORDERED: INSULIN REGULAR, HUMAN 100 UNIT/ML 10 ML VIAL IV ONE (21:30)
--- NOTE | 2019-09-03 23:11 | NUR ---
Patient blood sugar 508 at this time, covered with 20 units insulin as ordered, Called Dr Nelson with order to Draw lab for glucose, Noted and carried out
[2019-09-04] VITALS (95 sets, daily range): BP systolic 47–143; BP diastolic 21–89
--- NOTE | 2019-09-04 00:02 | NUR ---
Lab called for critical lab at this time, blood sugar 622, Called Omar Sykes, waiting for call back
--- NOTE | 2019-09-04 00:06 | NUR ---
Omar Sykes called back at this time, relayed critical lab value for blood sugar, with new order to start patient on insulin drip per protocol with algorithm #4, Titrate per protocol. Noted patient in no acute distress, breathing even and unlabored, on prescribed vent settings, No SOB, noted, Vitals in normal parameters, Will continue to monitor
[2019-09-04] MEDS: INSULIN REGULAR, HUMAN 100 UNIT in IV NS 0.9% 99 ML IV PRN ×8 (00:31→21:22)
--- NOTE | 2019-09-04 00:38 | NUR ---
Received orders to insert picc line from Dr. Nelson. Notified respiratory supervisor and picc line RN Carlo at bedside.
--- NOTE | 2019-09-04 00:43 | NUR ---
Successful placement of PICC line in right upper arm with good blood return and flushing well. Patient tolerated well.
[2019-09-04] MEDS: BLOOD SUGAR DIAGNOSTIC 1 EACH STRIP IN SCH ×22 (02:15→23:15)
[2019-09-04] MEDS: METOCLOPRAMIDE HCL 10 MG/2 ML VIAL IV SCH ×3 (03:07→18:07)
[2019-09-04] MEDS: PHENYLEPHRINE 80 MG in IV NS 0.9% 250 ML IV PRN (04:13)
[2019-09-04 04:41] LABS: BASOPHILS % (AUTO) 0.2 % (0.0-2.0); EOSINOPHILS % (AUTO) 0.3 % (0.0-6.0); HEMATOCRIT 27 % (39-51); HEMOGLOBIN 7.8 g/dL (13.5-17.5); LYMPHOCYTES # (AUTO) 1.4 /CMM (0.8-4.8); LYMPHOCYTES % (AUTO) 7.9 % (20.0-44.0); MEAN CORPUSCULAR HGB CONC 29 g/dl (31.0-36.0); MEAN CORPUSCULAR VOLUME 96 fL (80-96); MONOCYTES # (AUTO) 0.8 /CMM (0.1-1.30); MONOCYTES % (AUTO) 4.3 % (2.0-12.0); NEUTROPHILS # (AUTO) 15.7 /CMM (1.8-8.9); NEUTROPHILS % (AUTO) 87.3 % (43.0-81.0); PLATELET COUNT (AUTO) 399 /CMM (150-450); RED BLOOD CELL COUNT(AUTO) 2.77 MIL/uL (4.5-6.0)
[2019-09-04 04:44] LABS: CALCIUM, SERUM 10.6 mg/dL (8.5-10.1); CREATININE 5.3 mg/dL (0.6-1.3); POTASSIUM 3.6 mmol/L (3.5-5.1)
[2019-09-04] MEDS: METRONIDAZOLE 500 MG TABLET PO SCH ×3 (05:03→21:07)
--- NOTE | 2019-09-04 07:00 | NUR ---
TRAFFIC CONTROL SIGNALER NOTES RECEIVED BEDSIDE REPORT. PT NON VERBAL SPONTANEOUS EYE OPENING. NO S/S OF RESPIRATORY DISTRESS TOLERATING TRACH SHILEY #8 VENT SETTINGS ORDERED SINUS-SINUS TACHY ON MONITOR . FLEXI SEAL INTACT DRAINING LIQUID BROWN STOOL. ANURIC LAST HD ATTEMPT 09/03 UNABLE TO TOLERATE LEFT FEMORAL CATH DRESSING CLEAN AND INTACT GTF FEEDING VITAL 1.2 @ 30 ML/HR WITH GOAL OF 40 ML/HR ABIDEL MIDLINE RUNNING HENRIK @ 10MCG TITRATING ORDERED TO SUSTAIN B/P VIA GENO PICC LINE RUNNING INSULIN @ 6 UNITS TITRATING ORDERED. SAFETY AND ASPIRATION PRECAUTIONS IN PLACE BED IN LOW LOCKED POSITION HOB ELEVATED. WILL CONT TO MONITOR ACCORDINGLY
--- NOTE | 2019-09-04 07:19 | NUR ---
ICU/RN notes, Patient remained in bed, in no acute distress, breathing even and unlabored with prescribed vent settings, trach intact, patent, No SOB noted, Patient obtunded, No S/S of pain at this time, no facial grimacing noted, GENO picc line in place, patent, Gómez running @ 10mcg/min, BP Stable, Patient on insulin drips @ 6unit/Hr last blood sugar 181, rectal tube in place, draining well with brown, liquid color stool, g-tube in place, patent, connected to feeding as ordered, no residual at this time, HOB elevated semi coleman position, Safety maintained, bed at the lowest locked position, isolation precautions maintained, Due meds given as ordered, treatments rendered as ordered, tolerated well. Clean and dry. Will endorse to AM shift nurse for MARKELL.
[2019-09-04] MEDS: LACTOBACILLUS RHAMNOSUS GG 1 EACH CAP.SPRINK GT SCH ×2 (08:00→17:37)
[2019-09-04] MEDS: HYDROCORTISONE SOD SUCCINATE 100 MG/2 ML VIAL IV SCH ×3 (08:00→17:37)
[2019-09-04] MEDS: ASPIRIN EC 81 MG TABLET.DR PO SCH (08:00)
[2019-09-04] MEDS: PROSOURCE / PROSTAT (PYXIS) 30 ML UDC GT SCH ×2 (08:01→17:38)
[2019-09-04] MEDS: DAKINS QUARTER STRENGTH (0.125%) 480 ML BOTTLE TOP SCH (08:01)
[2019-09-04] MEDS: HYDROGEL DRESSING 90 GM TUBE TP SCH (08:01)
[2019-09-04] MEDS: AMMONIUM LACTATE 227 GM BOTTLE TP SCH ×2 (08:01→21:11)
[2019-09-04] MEDS: Z GUARD REMEDY 4 OZ OINT TP SCH ×2 (08:01→21:10)
[2019-09-04] MEDS: NYSTATIN TOP POWDER 15 GM BOTTLE TP SCH ×2 (08:01→17:35)
[2019-09-04] MEDS: TRIAMCINOLONE ACETONIDE 0.1% CR 15 GM TUBE TP SCH ×2 (08:01→21:10)
--- NOTE | 2019-09-04 10:30 | NUR ---
PT RECEIVING HD AT BEDSIDE
[2019-09-04] MEDS: ALBUMIN 25% 25 GM in PREMIX 1 EA IV PRN (11:31)
--- NOTE | 2019-09-04 11:58 | NUR ---
PT TOLERATING HD NO EPISODES OF HYPOTENSION NOTED
[2019-09-04] MEDS ORDERED: VANCOMYCIN 1 GM in IV D5W 250 ML IV ONE (14:30)
--- NOTE | 2019-09-04 16:30 | NUR ---
BED BATH GIVEN ORAL AND WOUND CARE RENDERED
--- NOTE | 2019-09-04 18:37 | NUR ---
ICU NOTES PT REMAINED AFEBRILE THROUGHOUT SHIFT. NO S/S OF RESPIRATORY DISTRESS TOLERATED VENT ORDERED. NO S/S OF PAIN NOTED.TOLERATED HD WITH 1 LITER OUT GTF VITAL 1.2 RUNNING @ 40 ML/HR TOLERATING WELL NO VOMITING . RECTAL TUBE IN PLACE DRAINING LIQUID BROWN LOOSE STOOL. MIDLINE TO ABDIEL RUNNING TKO GENO TRIPLE LUMEN PICC RUNNING HENRIK @ 10MCG AND INSULIN @ 20 UNITS. BS CHECKED Q1HR AND TITRATED PER PROTOCOL. REPOSITIONED FOR COMFORT ALL NEEDS MET. SAFETY PRECAUTIONS IN PLACE BED IN LOW LOCKED POSITION WILL ENDORSE TO NOC
--- NOTE | 2019-09-04 18:55 | NUR ---
HENRIK OFF FROM [id number] PT B/P STABLE PUT BACK ON @ 1700 BP 74/35
--- NOTE | 2019-09-04 19:30 | NUR ---
RN NOTES RECEIVED PATIENT WITH SHILEY 8 CONNECTED TO VENT AC 18 TV 500 FIO2 50% NO PEEP. PATIENT EYES IS OPEN NOT TRACKING . ST ON TELE MONITOR HR 105. NO SOB OR APPARENT DISTRESS. GTF VITAL 1.2 INTACT AND PATENT , 10 CC RESIDUAL PRESENT. IV SITE ON LEFT FEMORAL HD CATH, GENO PICC LINE WITH INSULIN AT 20 UNITS/HR AND ABDIEL MIDLINE WITH HENRIK 10 MCG/MIN INTACT AND PATENT. PRESSORS AND INSULIN WILL TITRATED ORDERED PROTOCOL. STRICTLY OBSERVED FOR ISOLATION PRECAUTION. KEPT PT CLEAN AND DRY. TURNED AND REPOSITIONED Q2H AND PRN. WILL CONTINUE TO MONITOR.
[2019-09-04] MEDS: COLISTIMETHATE SODIUM 100 MG in IV NS 0.9% 50 ML IV SCH (20:21)
--- NOTE | 2019-09-04 20:34 | NUR ---
RECEIVED PT SARAH LERMA #8 ON VENT. NO DISTRESS. PT TOLERATING VENT SETTINGS. SX'D AND LAVAGED FOR SML AMT OF THICK YELLOW SECRETIONS. VENT ALARMS SET AND AUDIBLE. TRACH SECURE CUFF HAIRSPRING I INSPECTOR. CONTINUE [facility] VENT SUPPORT. Addendum: 09/04/19 at 2034 by AUDI KOHLI RT Amended: Links added.
[2019-09-04] MEDS: ATORVASTATIN 40 MG TABLET PO SCH (21:07)
[2019-09-04] MEDS: INSULIN GLARGINE, 100 UNIT/ML CARTRIDGE SQ SCH (21:11)
--- NOTE | 2019-09-04 21:20 | NUR ---
RN NOTES NEOSYNEPHRINE OFF AT THIS TIME. VS WNL. ( SEE VITALS) WILL CONTINUE TO MONITOR.
[2019-09-05] VITALS (44 sets, daily range): BP systolic 83–154; BP diastolic 41–92
[2019-09-05] MEDS: BLOOD SUGAR DIAGNOSTIC 1 EACH STRIP IN SCH ×24 (00:19→23:15)
[2019-09-05] MEDS: METOCLOPRAMIDE HCL 10 MG/2 ML VIAL IV SCH ×3 (03:13→18:23)
[2019-09-05] MEDS: MORPHINE SULFATE INJ 2 MG/ML DISP.SYRIN IV PRN (04:36)
[2019-09-05] MEDS: INSULIN REGULAR, HUMAN 100 UNIT in IV NS 0.9% 99 ML IV PRN ×4 (04:38→15:01)
[2019-09-05] MEDS: METRONIDAZOLE 500 MG TABLET PO SCH ×3 (04:41→22:02)
[2019-09-05 04:47] LABS: BASOPHILS % (AUTO) 0.1 % (0.0-2.0); HEMATOCRIT 25 % (39-51); HEMOGLOBIN 7.5 g/dL (13.5-17.5); LYMPHOCYTES # (AUTO) 1.4 /CMM (0.8-4.8); MEAN CORPUSCULAR HGB CONC 30 g/dl (31.0-36.0); MEAN CORPUSCULAR VOLUME 95 fL (80-96); MONOCYTES # (AUTO) 1.2 /CMM (0.1-1.30); MONOCYTES % (AUTO) 6.2 % (2.0-12.0); NEUTROPHILS # (AUTO) 17.4 /CMM (1.8-8.9); NEUTROPHILS % (AUTO) 86.7 % (43.0-81.0); PLATELET COUNT (AUTO) 336 /CMM (150-450); RED BLOOD CELL COUNT(AUTO) 2.61 MIL/uL (4.5-6.0); WHITE BLOOD COUNT (AUTO) 20.1 K/uL (4.3-11.0)
[2019-09-05 05:28] LABS: POTASSIUM 2.8 mmol/L (3.5-5.1)
[2019-09-05] MEDS ORDERED: VANCOMYCIN 500 MG in IV D5W 100 ML IV PRN (06:00)
[2019-09-05] MEDS ORDERED: POTASSIUM CHLORIDE 20 MEQ POWDER PACKET GT ONE (07:00)
--- NOTE | 2019-09-05 07:05 | NUR ---
RN NOTES RECEIVED PATIENT ON BED, VENT/ TRACH DEPENDENT, TOLERATING CURRENT VENT SETTING WELL, SR ON TELE HR IN 90'S , NO SOB OR APPARENT DISTRESS. GTF VITAL 1.2 INTACT AND PATENT , LEFT FEMORAL HD CATH SITE AND L UPPER ARM MIDLINE SITES , CLEAN, DRY AND INTACT, R UA PICC LINE WITH INSULIN AT 6 UNIT /HR RUNNING , INSULIN WILL TITRATED ORDERED PROTOCOL. STRICTLY OBSERVED FOR ISOLATION PRECAUTION. KEPT PT CLEAN AND DRY. TURNED AND REPOSITIONED Q2H AND PRN. WILL CONTINUE TO MONITOR .
--- NOTE | 2019-09-05 07:10 | NUR ---
RN NOTES PATIENT ASLEEP WELL AT NIGHT. TRACH AND VENT SETTING TOLERATED WELL. AFEBRILE THROUGHOUT THE SHIFT. NO SIGNIFICANT CHANGES. PRESSORS IS BEEN OFF SINCE 9PM LAST NIGHT. INSULIN DRIP CONTINUE TITRATED PROTOCOL ORDER (ALGORITHM #4). WOUND CARE RENDERED, PHOTO TAKEN FOR WEEKLY REPORT/ASSESSMENT. ISOLATION PRECAUTION ALWAYS MET. KEPT PT CLEAN AND DRY. ENDORSED CONTINUITY OF CARE TO AM NURSE.
[2019-09-05] MEDS: LACTOBACILLUS RHAMNOSUS GG 1 EACH CAP.SPRINK GT SCH ×2 (08:23→16:26)
[2019-09-05] MEDS: HYDROCORTISONE SOD SUCCINATE 100 MG/2 ML VIAL IV SCH ×3 (08:23→16:26)
[2019-09-05] MEDS: ASPIRIN EC 81 MG TABLET.DR PO SCH (08:24)
[2019-09-05] MEDS: DAKINS QUARTER STRENGTH (0.125%) 480 ML BOTTLE TOP SCH (08:24)
[2019-09-05] MEDS: HYDROGEL DRESSING 90 GM TUBE TP SCH (08:25)
[2019-09-05] MEDS: TRIAMCINOLONE ACETONIDE 0.1% CR 15 GM TUBE TP SCH ×2 (08:25→21:00)
[2019-09-05] MEDS: NYSTATIN TOP POWDER 15 GM BOTTLE TP SCH ×2 (08:26→16:27)
[2019-09-05] MEDS: AMMONIUM LACTATE 227 GM BOTTLE TP SCH ×2 (08:26→21:00)
[2019-09-05] MEDS: Z GUARD REMEDY 4 OZ OINT TP SCH ×2 (08:27→21:00)
[2019-09-05] MEDS: PROSOURCE / PROSTAT (PYXIS) 30 ML UDC GT SCH ×2 (08:28→16:26)
[2019-09-05] MEDS: VITAL AF 1.2 1,000 ML BOTTLE GT PRN (09:56)
--- NOTE | 2019-09-05 12:00 | NUR ---
RN NOTES VSS STABLE, TOLERING TF WELL, CONTINUE TO MONITOR.
[2019-09-05] MEDS: PHENYLEPHRINE 80 MG in IV NS 0.9% 250 ML IV PRN (16:15)
[2019-09-05] MEDS ORDERED: PHENYLEPHRINE 80 MG in IV NS 0.9% 250 ML IV PRN (16:30)
[2019-09-05] MEDS ORDERED: NOREPINEPHRINE 16 MG in IV D5W 500 ML IV PRN (16:30)
--- NOTE | 2019-09-05 18:28 | NUR ---
RN NOTES PT TOLERATING TRACH AND VENT SETTING WELL. INSULIN DRIP CONTINUE TITRATED PROTOCOL ORDER (ALGORITHM #4). WOUND CARE RENDERED, ISOLATION PRECAUTION ALWAYS MET. KEPT PT CLEAN AND DRY. WILL ENDOSE CONTINUITY OF CARE TO THE PM NURSE.
[2019-09-05] MEDS: COLISTIMETHATE SODIUM 100 MG in IV NS 0.9% 50 ML IV SCH (20:15)
[2019-09-05] MEDS: INSULIN GLARGINE, 100 UNIT/ML CARTRIDGE SQ SCH (22:00)
[2019-09-05] MEDS: ATORVASTATIN 40 MG TABLET PO SCH (22:02)
[2019-09-06] VITALS (26 sets, daily range): BP systolic 90–153; BP diastolic 52–94
[2019-09-06] MEDS: BLOOD SUGAR DIAGNOSTIC 1 EACH STRIP IN SCH ×20 (00:29→23:57)
[2019-09-06] MEDS: INSULIN REGULAR, HUMAN 100 UNIT in IV NS 0.9% 99 ML IV PRN ×4 (01:21→12:55)
[2019-09-06] MEDS: METOCLOPRAMIDE HCL 10 MG/2 ML VIAL IV SCH ×3 (02:26→18:02)
[2019-09-06 07:54] LABS: EOSINOPHILS % (AUTO) 0.1 % (0.0-6.0); HEMATOCRIT 26 % (39-51); HEMOGLOBIN 8.1 g/dL (13.5-17.5); LYMPHOCYTES # (AUTO) 2.1 /CMM (0.8-4.8); LYMPHOCYTES % (AUTO) 9.9 % (20.0-44.0); MEAN CORPUSCULAR HGB CONC 31 g/dl (31.0-36.0); MEAN CORPUSCULAR VOLUME 95 fL (80-96); MONOCYTES # (AUTO) 0.9 /CMM (0.1-1.30); MONOCYTES % (AUTO) 4.4 % (2.0-12.0); NEUTROPHILS # (AUTO) 18.4 /CMM (1.8-8.9); NEUTROPHILS % (AUTO) 85.6 % (43.0-81.0); PLATELET COUNT (AUTO) 353 /CMM (150-450); RED BLOOD CELL COUNT(AUTO) 2.78 MIL/uL (4.5-6.0); WHITE BLOOD COUNT (AUTO) 21.5 K/uL (4.3-11.0)
[2019-09-06] MEDS: Z GUARD REMEDY 4 OZ OINT TP SCH ×2 (08:12→21:12)
[2019-09-06] MEDS: DAKINS QUARTER STRENGTH (0.125%) 480 ML BOTTLE TOP SCH (08:12)
[2019-09-06] MEDS: HYDROCORTISONE SOD SUCCINATE 100 MG/2 ML VIAL IV SCH ×2 (08:12→17:23)
[2019-09-06] MEDS: LACTOBACILLUS RHAMNOSUS GG 1 EACH CAP.SPRINK GT SCH ×2 (08:12→17:22)
[2019-09-06] MEDS: ASPIRIN EC 81 MG TABLET.DR PO SCH (08:12)
[2019-09-06] MEDS: TRIAMCINOLONE ACETONIDE 0.1% CR 15 GM TUBE TP SCH ×2 (08:12→21:11)
[2019-09-06] MEDS: HYDROGEL DRESSING 90 GM TUBE TP SCH (08:12)
[2019-09-06] MEDS: NYSTATIN TOP POWDER 15 GM BOTTLE TP SCH ×2 (08:12→17:23)
[2019-09-06] MEDS: AMMONIUM LACTATE 227 GM BOTTLE TP SCH ×2 (08:12→21:12)
[2019-09-06] MEDS: PROSOURCE / PROSTAT (PYXIS) 30 ML UDC GT SCH ×2 (09:22→17:23)
[2019-09-06] MEDS: VITAL AF 1.2 1,000 ML BOTTLE GT PRN (10:26)
--- NOTE | 2019-09-06 11:30 | NUR ---
PT STARTING HD
[2019-09-06 11:51] LABS: CALCIUM, SERUM 9.8 mg/dL (8.5-10.1); CREATININE 4.4 mg/dL (0.6-1.3); POTASSIUM 5.6 mmol/L (3.5-5.1)
--- NOTE | 2019-09-06 12:10 | NUR ---
BS 113 MG/DL POC >180 WILL CHECK Q4 HR PER PROTOCOL
[2019-09-06] MEDS: METRONIDAZOLE 500 MG TABLET PO SCH ×2 (13:00→20:38)
--- NOTE | 2019-09-06 14:05 | NUR ---
Per [employer] Harjinder, [facility] called pts shaheed Gonzales ([phone]) to attempt to schedule a bioethics meeting. Pts Janet informed SW that she has already spoken with doctors regarding the familys decision for plan of care of pt and she states the family is not going to change our mind. Pts shaheed Gonzales was upset and states she no longer wants to be asked to attend a meeting or continue discussing this topic. Pts states she will be calling RADHA Larose tomorrow (09/07) to further discuss the situation. [facility] has informed [employer] Harjinder of aforementioned information.
--- NOTE | 2019-09-06 15:41 | NUR ---
RT NOTE PT RECEIVED TRACHED ON MECHANICAL VENT W/ SETTINGS PER . VENT ALARMS CHECKED AND AUDIBLE, VENT IN RED OUTLET, AMBUBAG AT BEDSIDE. PT SX'ED AND LAVAGED PRN. BS EQUAL, DIMINISHED. TRACH PATENT, SECURED, CLEAN. NO RESP DISTRESS NOTED. Addendum: 09/06/19 at 1542 by ANALILIA REAVES RT Amended: Links added.
--- NOTE | 2019-09-06 16:30 | NUR ---
BEDBATH WOUND AND ORAL CARE RENDERED
--- NOTE | 2019-09-06 18:45 | NUR ---
ICU NOTES PT REMAINED AFEBRILE THROUGHOUT SHIFT. NO S/S OF RESPIRATORY DISTRESS TOLERATED VENT ORDERED. NO S/S OF PAIN NOTED.TOLERATED HD WITH 0 LITER OUT GTF VITAL 1.2 RUNNING @ 40 ML/HR TOLERATING WELL NO VOMITING . RECTAL TUBE IN PLACE DRAINING LIQUID BROWN LOOSE STOOL. MIDLINE TO ABDIEL RUNNING TKO GENO TRIPLE LUMEN PICC RUNNING INSULIN @ 5 UNITS. BS CHECKED Q4HR AND TITRATED PER PROTOCOL. REPOSITIONED FOR COMFORT ALL NEEDS MET. SAFETY PRECAUTIONS IN PLACE BED IN LOW LOCKED POSITION WILL ENDORSE TO NOC
[2019-09-06] MEDS ORDERED: FEE PK DOSING 1 MIN EA MC ONE (19:27)
[2019-09-06] MEDS ORDERED: DOSING PER PHARMACY-AMIKACI IV XX PRN (19:30)
--- NOTE | 2019-09-06 19:30 | NUR ---
RN NOTES, RECEIVED PATIENT ON BED, ON MECHANICAL VENT/ TRACH DEPENDENT, TOLERATING SETTING WELL, SR ON TELE HR IN 100S AT THIS TIME, NO SOB/ACUTE DISTRESS NOTED AT THIS TIME, GT IN PLACED GTF VITAL 1.2 @40ML./HR TOLERATED WELL, NO RESIDUAL NOTED AT THIS TIME, I LEFT FEMORAL HD CATH SITE AND L UPPER ARM MIDLINE SITES , CLEAN, DRY AND INTACT, R UA PICC LINE WITH INSULIN AT 5 UNIT /HR RUNNING , WILL TITRATED ORDERED PER PROTOCOL, STRICTLY OBSERVED FOR ISOLATION PRECAUTION, DRY AND CLEAN AND WELL REPOSITIONED AT THIS TIME, WILL CONTINUE TO MONITOR CLOSELY.
[2019-09-06] MEDS ORDERED: AMIKACIN 300 MG in IV D5W 100 ML IV ONE (20:00)
[2019-09-06] MEDS: COLISTIMETHATE SODIUM 100 MG in IV NS 0.9% 50 ML IV SCH (20:06)
--- NOTE | 2019-09-06 20:13 | NUR ---
RECEIVED PT SARAH LERMA #8 ON VENT. NO DISTRESS. PT TOLERATING VENT SETTINGS. SX'D AND LAVAGED FOR SML AMT OF THICK YELLOW SECRETIONS. VENT ALARMS SET AND AUDIBLE. 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 CONTINUE [facility] VENT SUPPORT. Addendum: 09/06/19 at 2013 by AUDI KOHLI RT Amended: Links added.
[2019-09-06] MEDS: ATORVASTATIN 40 MG TABLET PO SCH (21:12)
[2019-09-07] VITALS (25 sets, daily range): BP systolic 95–142; BP diastolic 44–97
[2019-09-07] MEDS: BLOOD SUGAR DIAGNOSTIC 1 EACH STRIP IN SCH ×13 (01:03→23:38)
[2019-09-07] MEDS: ACETAMINOPHEN 650 MG/20.3 ML UDC NG PRN (01:41)
[2019-09-07] MEDS: METOCLOPRAMIDE HCL 10 MG/2 ML VIAL IV SCH ×3 (03:07→18:18)
[2019-09-07 04:25] LABS: BASOPHILS % (AUTO) 0.1 % (0.0-2.0); EOSINOPHILS % (AUTO) 0.1 % (0.0-6.0); HEMATOCRIT 23 % (39-51); HEMOGLOBIN 7.1 g/dL (13.5-17.5); LYMPHOCYTES # (AUTO) 2.2 /CMM (0.8-4.8); LYMPHOCYTES % (AUTO) 10.2 % (20.0-44.0); MEAN CORPUSCULAR HGB CONC 31 g/dl (31.0-36.0); MEAN CORPUSCULAR VOLUME 95 fL (80-96); MONOCYTES # (AUTO) 1.8 /CMM (0.1-1.30); MONOCYTES % (AUTO) 8.3 % (2.0-12.0); NEUTROPHILS # (AUTO) 17.5 /CMM (1.8-8.9); NEUTROPHILS % (AUTO) 81.3 % (43.0-81.0); PLATELET COUNT (AUTO) 324 /CMM (150-450); RED BLOOD CELL COUNT(AUTO) 2.45 MIL/uL (4.5-6.0); WHITE BLOOD COUNT (AUTO) 21.5 K/uL (4.3-11.0)
[2019-09-07 04:42] LABS: CALCIUM, SERUM 9.1 mg/dL (8.5-10.1); CREATININE 3.4 mg/dL (0.6-1.3); POTASSIUM 4.1 mmol/L (3.5-5.1)
[2019-09-07 04:54] LABS: PHOSPHORUS 0.8 mg/dL (2.5-4.9)
[2019-09-07] MEDS: METRONIDAZOLE 500 MG TABLET PO SCH ×3 (05:06→20:02)
[2019-09-07] MEDS: INSULIN REGULAR, HUMAN 100 UNIT in IV NS 0.9% 99 ML IV PRN ×2 (05:59)
[2019-09-07] MEDS ORDERED: Sodium Phosphate 30 MMOL in IV D5W 250 ML IV ONE (06:00)
--- NOTE | 2019-09-07 06:00 | NUR ---
RN NOTES, REPORTED TO MD THE CRITICAL LAB VALUES FOR BUN 112 AND PHOSPHORUS 0.8, AND RECEIVED A NE ORDER FOR SODIUM PHOS 30MM IV X1, PER CHARGE NURSE, MEDICATION NOT AVAILABLE IN THE UNIT, AND PHARMACY WILL PREPARE, WILL ENDORSE TO ONCOMING NURSE.
--- NOTE | 2019-09-07 07:00 | NUR ---
RN NOTES, PATIENT IN BED ON MECHANICAL VENT/ TRACH DEPENDENT, TOLERATING SETTING WELL, SR ON TELE , NO SOB/ACUTE DISTRESS NOTED AT THIS TIME, CONTINUE ON INSULIN DRIP 5U/HR, NO SIGNIFICANT CHANGE IN CONDITION DURING THE NIGHT, ISOLATION PRECAUTION, DRY AND CLEAN AND WELL REPOSITIONED, WILL ENDORSE CONTINUITY OF CARE TO ONCOMING NURSE.
--- NOTE | 2019-09-07 07:45 | NUR ---
PRINCIPAL DEVELOPER NOTES RECEIVED HAND OFF REPORT FROM NOC. OBTUNDED OPENS EYES SPONTANEOUSLY NO S/S OF RESPIRATORY DISTRESS TOLERATING VENT SETTINGS ORDERED. SINUS TACHY ON MONITOR 105. FLEXI SEAL INTACT DRAINING BROWN LIQUID STOOL. GTF RUNNING VITAL 1.2 @ 40 ML/HR WITH NO RESIDUAL LEFT FEMORAL HD CATH DRESSING CLEAN AND DRY. ABDIEL MIDLINE # 18 SL. GENO TRIPLE LUMEN PICC RUNNING INSULIN @ 5 UNITS. BLOOD SUGARS CHECKED QHR . SAFETY AND ASPIRATION PRECAUTIONS IN PLACE BED IN LOW LOCKED POSITION WILL CONT TO MONITOR ACCORDINGLY
[2019-09-07] MEDS: ASPIRIN EC 81 MG TABLET.DR PO SCH (08:22)
[2019-09-07] MEDS: HYDROCORTISONE SOD SUCCINATE 100 MG/2 ML VIAL IV SCH (08:22)
[2019-09-07] MEDS: LACTOBACILLUS RHAMNOSUS GG 1 EACH CAP.SPRINK GT SCH ×2 (08:22→16:27)
[2019-09-07] MEDS: PROSOURCE / PROSTAT (PYXIS) 30 ML UDC GT SCH ×2 (08:23→16:25)
[2019-09-07] MEDS: DAKINS QUARTER STRENGTH (0.125%) 480 ML BOTTLE TOP SCH (08:23)
[2019-09-07] MEDS: NYSTATIN TOP POWDER 15 GM BOTTLE TP SCH ×2 (08:23→16:25)
[2019-09-07] MEDS: AMMONIUM LACTATE 227 GM BOTTLE TP SCH ×2 (08:23→21:33)
[2019-09-07] MEDS: HYDROGEL DRESSING 90 GM TUBE TP SCH (08:23)
[2019-09-07] MEDS: TRIAMCINOLONE ACETONIDE 0.1% CR 15 GM TUBE TP SCH ×2 (08:23→21:47)
[2019-09-07] MEDS: Z GUARD REMEDY 4 OZ OINT TP SCH ×2 (08:24→21:34)
--- NOTE | 2019-09-07 09:07 | NUR ---
PT NOTED TO HAVE MODERATED AMOUNT OF EMESIS BROWN IN COLOR. FEEDING STOPPED MINIMAL RESIDUAL 15 ML. WILL NOTIFY
--- NOTE | 2019-09-07 10:28 | NUR ---
MD GOOD AWARE OF PT EMESIS
[2019-09-07] MEDS: INSULIN REGULAR, HUMAN 100 UNIT/ML 3 ML VIAL SQ PRN ×4 (12:03→23:39)
--- NOTE | 2019-09-07 15:30 | NUR ---
BED BATH GIVEN WOUND AND ORAL CARE DONE
[2019-09-07] MEDS: VITAL AF 1.2 1,000 ML BOTTLE GT PRN (16:25)
[2019-09-07] MEDS: IV NS 0.9% 250 ML IV PRN (16:33)
--- NOTE | 2019-09-07 18:35 | NUR ---
ICU NOTES PT REMAINED AFEBRILE THROUGHOUT SHIFT. NO S/S OF RESPIRATORY DISTRESS TOLERATED VENT ORDERED. NO S/S OF PAIN NOTED.TOLERATED LAST HD 09/06 WITH 0 LITER OUT GTF VITAL 1.2 RUNNING @ 40 ML/HR 1 EPISODE OF COFFEE GROUND EMESIS MD AWARE NO RESIDUALS NOTED VIA GT. RECTAL TUBE IN PLACE DRAINING LIQUID BROWN LOOSE STOOL. MIDLINE TO ABDIEL GENO TRIPLE LUMEN PICC TKO. REPOSITIONED FOR COMFORT ALL NEEDS MET. SAFETY PRECAUTIONS IN PLACE BED IN LOW LOCKED POSITION WILL ENDORSE TO NOC
--- NOTE | 2019-09-07 19:35 | NUR ---
RN NOTES, RECEIVED PATIENT ON BED, ON MECHANICAL VENT/ TRACH DEPENDENT, TOLERATING SETTING WELL, SR ON TELE HR IN 100-110S AT THIS TIME, NO SOB/ACUTE DISTRESS NOTED AT THIS TIME, GT IN PLACED GTF VITAL 1.2 @40ML./HR TOLERATED WELL, NO RESIDUAL NOTED AT THIS TIME NO EPISODES OF VOMITING AT THIS TIME, LEFT FEMORAL HD CATH SITE AND L UPPER ARM MIDLINE AND GENO PICC LINE ALL PATENT AND INTACT, S/P INSULIN DRIP, NOW IN ACCUCHECK AGGRESSIVE SS COVERAGE, STRICTLY OBSERVED FOR ISOLATION PRECAUTION, DRY AND CLEAN AND WELL REPOSITIONED AT THIS TIME, WILL CONTINUE TO MONITOR CLOSELY.
[2019-09-07] MEDS: COLISTIMETHATE SODIUM 100 MG in IV NS 0.9% 50 ML IV SCH (19:58)
[2019-09-07] MEDS: ATORVASTATIN 40 MG TABLET PO SCH (21:34)
--- NOTE | 2019-09-07 22:00 | NUR ---
ICU/RN BS IS 404. INSULIN 20 UNITS SQ GIVEN ORDERED.CHECK BS Q 2 HRS.AND COVER WITH AGGRESSIVE SLIDING SCALES.
[2019-09-08] VITALS (26 sets, daily range): BP systolic 97–131; BP diastolic 43–89
[2019-09-08] MEDS ORDERED: DEXTROSE 50%-WATER 50 ML DISP.SYRIN IV PRN
[2019-09-08] MEDS ORDERED: INSULIN REGULAR, HUMAN 100 UNIT/ML 3 ML VIAL SQ PRN
[2019-09-08] MEDS: BLOOD SUGAR DIAGNOSTIC 1 EACH STRIP IN SCH ×7 (00:56→20:16)
[2019-09-08] MEDS: INSULIN REGULAR, HUMAN 100 UNIT/ML 3 ML VIAL SQ PRN ×6 (00:58→20:18)
[2019-09-08] MEDS: METOCLOPRAMIDE HCL 10 MG/2 ML VIAL IV SCH ×4 (02:16→20:15)
[2019-09-08 04:30] LABS: BASOPHILS # (AUTO) 0.1 /CMM (0.0-0.2); BASOPHILS % (AUTO) 0.3 % (0.0-2.0); EOSINOPHILS % (AUTO) 2.6 % (0.0-6.0); HEMATOCRIT 23 % (39-51); HEMOGLOBIN 7.4 g/dL (13.5-17.5); LYMPHOCYTES # (AUTO) 3.4 /CMM (0.8-4.8); LYMPHOCYTES % (AUTO) 18.9 % (20.0-44.0); MEAN CORPUSCULAR HGB CONC 32 g/dl (31.0-36.0); MEAN CORPUSCULAR VOLUME 94 fL (80-96); MONOCYTES # (AUTO) 1.7 /CMM (0.1-1.30); MONOCYTES % (AUTO) 9.6 % (2.0-12.0); NEUTROPHILS # (AUTO) 12.2 /CMM (1.8-8.9); NEUTROPHILS % (AUTO) 68.6 % (43.0-81.0); PLATELET COUNT (AUTO) 330 /CMM (150-450); RED BLOOD CELL COUNT(AUTO) 2.48 MIL/uL (4.5-6.0); WHITE BLOOD COUNT (AUTO) 17.9 K/uL (4.3-11.0)
[2019-09-08 04:47] LABS: CALCIUM, SERUM 8.8 mg/dL (8.5-10.1); PHOSPHORUS 4.9 mg/dL (2.5-4.9); POTASSIUM 3.5 mmol/L (3.5-5.1)
[2019-09-08] MEDS: METRONIDAZOLE 500 MG TABLET PO SCH ×3 (05:33→20:15)
--- NOTE | 2019-09-08 06:46 | NUR ---
RN NOTES, PATIENT IN BED ON MECHANICAL VENT/ TRACH DEPENDENT, TOLERATING SETTING WELL, SINUS TACHY IN THE TELE WITH HR 90/100 AT THIS TIME, NO SOB/ACUTE DISTRESS NOTED AT THIS TIME, ON ACCUCHECK Q2 HRS WITH AGGRESSIVE SS COVERAGE TO CONTROL BLOOD SUGAR, , NO SIGNIFICANT CHANGE IN CONDITION DURING THE NIGHT, ISOLATION PRECAUTION, DRY AND CLEAN AND WELL REPOSITIONED, WILL ENDORSE CONTINUITY OF CARE TO ONCOMING NURSE.
--- NOTE | 2019-09-08 07:30 | NUR ---
EDGING MACHINE FEEDER NOTES PATIENT RECEIVED IN BED, AWAKE, OPENS EYES SPONTANEOUSLY. PATIENT WITH TRACH AND MECHANICAL VENTILATION SUPPORT TOLERATED WELL. PATIENT NOTED WITH FLEXISEAL IN PLACE. RIGHT UPPER ARM PICC LINE NOTED NO REDNESS OR INFILTRATION. PATIENT KEPT CLEAN DRY AND COMFORTABLE, CALL LIGHT WITHIN EASY REACH
[2019-09-08] MEDS: ASPIRIN EC 81 MG TABLET.DR PO SCH (08:49)
[2019-09-08] MEDS: HYDROCORTISONE SOD SUCCINATE 100 MG/2 ML VIAL IV SCH (08:49)
[2019-09-08] MEDS: LACTOBACILLUS RHAMNOSUS GG 1 EACH CAP.SPRINK GT SCH ×2 (08:49→16:42)
[2019-09-08] MEDS: PROSOURCE / PROSTAT (PYXIS) 30 ML UDC GT SCH ×2 (08:50→16:42)
[2019-09-08] MEDS: DAKINS QUARTER STRENGTH (0.125%) 480 ML BOTTLE TOP SCH (09:24)
[2019-09-08] MEDS: TRIAMCINOLONE ACETONIDE 0.1% CR 15 GM TUBE TP SCH ×2 (09:25→21:31)
[2019-09-08] MEDS: AMMONIUM LACTATE 227 GM BOTTLE TP SCH ×2 (09:25→21:31)
[2019-09-08] MEDS: HYDROGEL DRESSING 90 GM TUBE TP SCH (09:25)
[2019-09-08] MEDS: NYSTATIN TOP POWDER 15 GM BOTTLE TP SCH ×2 (09:26→16:52)
[2019-09-08] MEDS: Z GUARD REMEDY 4 OZ OINT TP SCH ×2 (10:55→21:30)
[2019-09-08] MEDS ORDERED: LIDOCAINE 1%-EPI 1:100,000 20 ML VIAL TP ONE (15:30)
[2019-09-08] MEDS ORDERED: SILVER NITRATE APPLICATOR 1 EA BOX TP ONE (15:30)
--- NOTE | 2019-09-08 18:00 | NUR ---
RN NOTES PROCEDURE CONSENT OBTAINED VIA TELEPHONE WITH 2 RN WITNESS
--- NOTE | 2019-09-08 19:15 | NUR ---
FIRE SAFETY MANAGER NOTES PATIENT TRANSFERRED FROM ICU TO TELE [facility] ROOM 120-2 VIA ACLS PROTOCOL.PATIENT OPENS EYES SPONTANEOUSLY. PATIENT WITH TRACH AND MECHANICAL VENTILATION SUPPORT TOLERATED WELL. PATIENT NOTED WITH FLEXISEAL IN PLACE AND PATENT. RIGHT UPPER ARM PICC LINE NOTED NO REDNESS OR INFILTRATION. PATIENT KEPT CLEAN DRY AND COMFORTABLE, CALL LIGHT WITHIN EASY REACH, ALL BELONGINGS ACCOUNTED FOR. REPORT GIVEN TO CHARGE NURSE FOR CONTINUITY OF CARE
--- NOTE | 2019-09-08 19:38 | NUR ---
RT NOTE LATE ENTRY @ 1910 PT TRANSFERRED FROM ICU TO [facility] ROOM 120 VIA AMGU BAG WITH NO COMPLICATIONS. NO SOB NOTED.
[2019-09-08] MEDS: COLISTIMETHATE SODIUM 100 MG in IV NS 0.9% 50 ML IV SCH (20:30)
--- NOTE | 2019-09-08 20:32 | NUR ---
PT RCVD SARAH'D ON MECHANICAL VENT WITH CHARTED SETTINGS. SX DONE. PT TRACH IS PATENT AND SECURE. VENT ALARMS APPEAR TO BE FUNCTIONING PROPERLY. AMBU BAG AT BEDSIDE. VENT PLUGGED INTO RED OUTLET. NO SOB NOTED. Addendum: 09/08/19 at 2031 by OLAMIDE LANDIN RT Amended: Links added.
[2019-09-08] MEDS: ATORVASTATIN 40 MG TABLET PO SCH (21:31)
[2019-09-09] VITALS (12 sets, daily range): BP systolic 91–126; BP diastolic 34–82
[2019-09-09] MEDS: BLOOD SUGAR DIAGNOSTIC 1 EACH STRIP IN SCH ×6 (01:06→20:31)
[2019-09-09] MEDS: INSULIN REGULAR, HUMAN 100 UNIT/ML 3 ML VIAL SQ PRN ×6 (01:13→21:44)
[2019-09-09] MEDS: METOCLOPRAMIDE HCL 10 MG/2 ML VIAL IV SCH ×3 (02:44→20:12)
[2019-09-09] MEDS: METRONIDAZOLE 500 MG TABLET PO SCH ×3 (04:53→20:13)
--- NOTE | 2019-09-09 06:12 | NUR ---
ORACLE REPORTS DEVELOPER NOTES PT SLEEPING. AROUSEABLE TO TACTILE STIMULI. WITH SAME VENT SETTINGS. NOT IN ANY DISTRESS. NO SOB NOTED. NO S/SX OF ANY PAIN OR DISCOMFORT AT THIS TIME. ON TELE ST @ 110 WITH PICC LINE PATENT & INTACT. WITH GTF INFUSING WELL. AM CARE DONE. MONITORED ACCORDINGLY. BED IN LOWEST POSITION. SR UP X 3 WITH BED ALARM ON FOR SAFETY. WILL ENDORSE TO NEXT SHIFT.
[2019-09-09 06:29] LABS: BASOPHILS # (AUTO) 0.1 /CMM (0.0-0.2); BASOPHILS % (AUTO) 0.3 % (0.0-2.0); EOSINOPHILS % (AUTO) 4.4 % (0.0-6.0); HEMATOCRIT 22 % (39-51); LYMPHOCYTES # (AUTO) 3.5 /CMM (0.8-4.8); MEAN CORPUSCULAR HGB CONC 31 g/dl (31.0-36.0); MEAN CORPUSCULAR VOLUME 95 fL (80-96); MONOCYTES # (AUTO) 1.7 /CMM (0.1-1.30); MONOCYTES % (AUTO) 7.9 % (2.0-12.0); NEUTROPHILS # (AUTO) 15.7 /CMM (1.8-8.9); NEUTROPHILS % (AUTO) 71.4 % (43.0-81.0); PLATELET COUNT (AUTO) 345 /CMM (150-450); RED BLOOD CELL COUNT(AUTO) 2.36 MIL/uL (4.5-6.0); WHITE BLOOD COUNT (AUTO) 22.1 K/uL (4.3-11.0)
[2019-09-09 06:43] LABS: CALCIUM, SERUM 8.5 mg/dL (8.5-10.1); CREATININE 3.9 mg/dL (0.6-1.3)
[2019-09-09 06:48] LABS: HEMOGLOBIN 6.9 g/dL (13.5-17.5)
--- NOTE | 2019-09-09 07:15 | NUR ---
RN OPENING NOTES PATIENT IS IN BED RESTING COMFORTABLY. ON VENT. PATIENT IS OBTUNDED. ABLE TO OPEN EYES. ON TELE MONITOR. SINUS RHYTHM AT 112. PATIENT IS ON FLEXISEAL. ON GT FEEDING AT 40 ML/HR. HAS GENO PICC LINE 3 LUMEN, ABDIEL MIDLINE AND LEFT FEMORAL CATH FOR HD. NO SIGNS OF ANY SOB OR PAIN AT THIS TIME. BED LOCKED AND IN LOWEST POSITION FOR SAFETY. WILL CONTINUE TO MONITOR.
[2019-09-09 07:46] LABS: BAND % (MANUAL) 1 % (0.0-5.0); EOSINOPHILS % (MANUAL) 1 % (0-4); LYMPHOCYTES % (MANUAL) 22 % (16-48); METAMYELOCYTES % 1 % (0-0); MONOCYTES % (MANUAL) 6 % (0-11.0); NEUTROPHILS % (MANUAL) 69 (42-76)
[2019-09-09] MEDS: LACTOBACILLUS RHAMNOSUS GG 1 EACH CAP.SPRINK GT SCH ×2 (08:12→17:47)
[2019-09-09] MEDS: PROSOURCE / PROSTAT (PYXIS) 30 ML UDC GT SCH ×2 (08:12→17:47)
[2019-09-09] MEDS: HYDROCORTISONE SOD SUCCINATE 100 MG/2 ML VIAL IV SCH (08:14)
[2019-09-09] MEDS: ASPIRIN 81 MG TAB.CHEW GT SCH (08:19)
[2019-09-09] MEDS: NYSTATIN TOP POWDER 15 GM BOTTLE TP SCH ×2 (08:30→17:48)
[2019-09-09] MEDS: TRIAMCINOLONE ACETONIDE 0.1% CR 15 GM TUBE TP SCH ×2 (08:30→20:27)
[2019-09-09] MEDS: POLYVINYL ALCOHOL 15 ML BOTTLE EACHEYE PRN (08:30)
[2019-09-09] MEDS: AMMONIUM LACTATE 227 GM BOTTLE TP SCH ×2 (08:31→20:28)
[2019-09-09] MEDS: DAKINS QUARTER STRENGTH (0.125%) 480 ML BOTTLE TOP SCH (08:31)
[2019-09-09] MEDS: HYDROGEL DRESSING 90 GM TUBE TP SCH (08:31)
[2019-09-09] MEDS: Z GUARD REMEDY 4 OZ OINT TP SCH ×2 (08:34→20:28)
--- NOTE | 2019-09-09 08:50 | NUR ---
RN NOTE CHANGED THE PATIENT'S ASPIRIN EC TO ASPIRIN 81MG. PATIENT HAS A GT AND EC CANNOT BE CRUSHED. PHARMACY MADE AWARE
[2019-09-09] MEDS ORDERED: ASPIRIN 81 MG TAB.CHEW GT SCH (09:00)
[2019-09-09] MEDS: VITAL AF 1.2 1,000 ML BOTTLE GT PRN (14:28)
--- NOTE | 2019-09-09 18:51 | NUR ---
RN CLOSING NOTES PATIENT IS IN BED RESTING COMFORTABLY. PATIENT IS ON VENT. HOB ELEVATED. AFEBRILE. PATIENT RECEIVED BLOOD TRANSFUSION THIS SHIFT X2 WITHOUT ANY ADVERSE REACTION NOTED. REPOSITIONED PATIENT EVERY 2 HOURS. ALL DUE MEDS GIVEN AND TOLERATED WELL. PATIENT IS ON G-TUBE FEEDING AND TOLERATED WELL THROUGHOUT SHIFT. G-TUBE IS KEPT CLEAN AND PATENT. WILL CONTINUE TO MONITOR AND ENDORSE TO NEXT SHIFT.
--- NOTE | 2019-09-09 19:20 | NUR ---
[facility] RN OPENING NOTES RECEIVED PATIENT RESTING IN BED, OBTUNDED, ABLE TO OPEN EYES. ON TELE MONITOR SINUS TACHY WITH HR 120'S. ON MECHANICAL VENT TRACH SETTINGS ORDERED, TOLERATING WELL, SATURATING 100% AT THE MOMENT. NO SOB OR RESPIRATORY DISTRESS NOTED. IV SITES GENO PICC, ABDIEL MIDLINE, BOTH FLUSHING AND PATENT. LEFT FEM HD CATH NOTED, INTACT. ON GT FEEDING AT 40 ML/HR, FLUSHING AND PATENT, NO RESIDUAL NOTED. FLEXISEAL IN PLACE, DRAINING LIQUID BROWN STOOL NOTED. SAFETY MEASURES IN PLACE; BED LOCKED AND IN LOWEST POSITION, CALL LIGHT WITHIN REACH, SIDE RAILS UP X2, HOB ELEVATED. WILL CONTINUE TO MONITOR PT CLOSELY.
[2019-09-09] MEDS: ACETAMINOPHEN 650 MG/20.3 ML UDC NG PRN (20:13)
[2019-09-09] MEDS: COLISTIMETHATE SODIUM 100 MG in IV NS 0.9% 50 ML IV SCH (20:14)
--- NOTE | 2019-09-09 20:56 | NUR ---
[facility] RN NOTES PATIENT BLOOD SUGAR 400. PAGED MD VIA [employer] EXCHANGE. AWAITING FOR RESPONSE.
--- NOTE | 2019-09-09 21:00 | NUR ---
[facility] RN NOTES RENDERED INFORMATION TO HITCH TECHNICIAN MD REGARDING PATIENT'S BLOOD SUGAR 400. MD ORDERED 20 UNITS LANTUS SQ ONE TIME ONLY. WILL ATTEND TO MD ORDER. WILL CONT TO MONITOR PT CLOSELY.
[2019-09-09] MEDS ORDERED: INSULIN GLARGINE, 100 UNIT/ML CARTRIDGE SQ ONE (21:30)
--- NOTE | 2019-09-09 21:41 | NUR ---
RT NOTE PT RECEIVED TRACHED ON MECHANICAL VENTILATION. AMBU BAG/BACK UP TRACH @ BEDSIDE. CONT. PULSE OX CONNECTED. VENT PLUGGED TO RED OUTLET. ALARMS ON AND AUDIBLE. SX DONE, TRACH SECURED AND PATENT. NO SOB NOTED AT THIS TIME. WILL MONITOR T/O SHIFT. Addendum: 09/09/19 at 2142 by MARCIA YOUNG RT Amended: Links added.
[2019-09-09] MEDS: ATORVASTATIN 40 MG TABLET PO SCH (22:15)
[2019-09-10] VITALS: BP_SYST 109; BP_SYST 119; BP_DIAS 51; BP_DIAS 59
[2019-09-10] MEDS: BLOOD SUGAR DIAGNOSTIC 1 EACH STRIP IN SCH ×6 (01:03→21:18)
[2019-09-10] MEDS: INSULIN REGULAR, HUMAN 100 UNIT/ML 3 ML VIAL SQ PRN ×4 (01:05→21:22)
[2019-09-10] MEDS: METOCLOPRAMIDE HCL 10 MG/2 ML VIAL IV SCH ×3 (03:28→20:53)
[2019-09-10 04:00] VITALS: BP 116/70
[2019-09-10] MEDS: METRONIDAZOLE 500 MG TABLET PO SCH ×3 (04:30→20:54)
--- NOTE | 2019-09-10 06:59 | NUR ---
[facility] RN CLOSING NOTES PATIENT RESTING IN BED. NO RESPIRATORY OR CARDIAC DISTRESS NOTED. ALL MD ORDERS ATTENDED, ALL NEEDS ANTICIPATED AND MET. WOUND TX DONE ORDERED. REPOSITIONED PER PROTOCOL. SAFETY MEASURES MAINTAINED. WILL ENDORSE TO AM RN FOR MARKELL.
--- NOTE | 2019-09-10 07:15 | NUR ---
[facility] RN OPENING NOTES PATIENT IS IN BED RESTING. HOB ELEVATED. NO S/S OF RESPIRATORY DISTRESS. PATIENT IS ON VENT AND TOLERATED WELL. GTF ON AND RUNNING. PATIENT IS NON VERBAL, RESPONSIVE TO LIGHT TOUCH. PATIENT IS OBTUNDED. PATIENT IS ON FLEXI SEAL. TV IS ON PER FAMILY REQUEST. WILL CONTINUE TO MONITOR.
[2019-09-10 07:38] LABS: BASOPHILS % (AUTO) 0.2 % (0.0-2.0); EOSINOPHILS % (AUTO) 4.2 % (0.0-6.0); HEMATOCRIT 31 % (39-51); HEMOGLOBIN 10.1 g/dL (13.5-17.5); LYMPHOCYTES % (AUTO) 21.6 % (20.0-44.0); MEAN CORPUSCULAR HGB CONC 32 g/dl (31.0-36.0); MEAN CORPUSCULAR VOLUME 92 fL (80-96); MONOCYTES # (AUTO) 1.5 /CMM (0.1-1.30); MONOCYTES % (AUTO) 7.9 % (2.0-12.0); NEUTROPHILS # (AUTO) 12.1 /CMM (1.8-8.9); NEUTROPHILS % (AUTO) 66.1 % (43.0-81.0); PLATELET COUNT (AUTO) 316 /CMM (150-450); RED BLOOD CELL COUNT(AUTO) 3.41 MIL/uL (4.5-6.0); WHITE BLOOD COUNT (AUTO) 18.4 K/uL (4.3-11.0)
[2019-09-10 07:44] LABS: CALCIUM, SERUM 8.9 mg/dL (8.5-10.1); CREATININE 4.4 mg/dL (0.6-1.3); MAGNESIUM 2.2 mg/dL (1.8-2.4); PHOSPHORUS 5.9 mg/dL (2.5-4.9); POTASSIUM 4.5 mmol/L (3.5-5.1)
[2019-09-10 08:00] VITALS: BP_SYST 110; BP_SYST 116; BP_DIAS 70; BP_DIAS 73
[2019-09-10] MEDS: ASPIRIN 81 MG TAB.CHEW GT SCH (08:31)
[2019-09-10] MEDS: LACTOBACILLUS RHAMNOSUS GG 1 EACH CAP.SPRINK GT SCH ×2 (08:31→16:52)
[2019-09-10] MEDS: HYDROCORTISONE SOD SUCCINATE 100 MG/2 ML VIAL IV SCH (08:32)
[2019-09-10] MEDS: POLYVINYL ALCOHOL 15 ML BOTTLE EACHEYE PRN (08:43)
[2019-09-10] MEDS: TRIAMCINOLONE ACETONIDE 0.1% CR 15 GM TUBE TP SCH ×2 (08:43→20:56)
[2019-09-10] MEDS: AMMONIUM LACTATE 227 GM BOTTLE TP SCH ×2 (08:43→20:55)
[2019-09-10] MEDS: NYSTATIN TOP POWDER 15 GM BOTTLE TP SCH ×2 (08:43→16:53)
[2019-09-10] MEDS: HYDROGEL DRESSING 90 GM TUBE TP SCH (08:44)
[2019-09-10] MEDS: DAKINS QUARTER STRENGTH (0.125%) 480 ML BOTTLE TOP SCH (08:44)
[2019-09-10] MEDS: Z GUARD REMEDY 4 OZ OINT TP SCH ×2 (08:45→20:57)
[2019-09-10] MEDS: PROSOURCE / PROSTAT (PYXIS) 30 ML UDC GT SCH ×2 (08:46→16:52)
[2019-09-10 09:45] LABS: EOSINOPHILS % (MANUAL) 4 % (0-4); LYMPHOCYTES % (MANUAL) 18 % (16-48); METAMYELOCYTES % 1 % (0-0); MONOCYTES % (MANUAL) 6 % (0-11.0); MYELOCYTES % 1 % (0-0); NEUTROPHILS % (MANUAL) 70 (42-76)
[2019-09-10 12:00] VITALS: BP 116/54
--- NOTE | 2019-09-10 13:00 | NUR ---
RN NOTE FLAGYL IS NOT GIVEN ON TIME. PATIENT CURRENTLY ON DIALYSIS. WILL ADMINISTER AFTER DIALYSIS.
--- NOTE | 2019-09-10 13:01 | NUR ---
RN NOTE DR PATINO AT BEDSIDE, WAS AWARE THAT PATIENT'S BS HAS BEEN ELEVATED. ORDERED TO GIVE LANTUS 20 UNITS HS. ORDER CARRIED OUT
[2019-09-10 16:00] VITALS: BP 120/57
[2019-09-10] MEDS: AMIKACIN 300 MG in IV D5W 100 ML IV PRN (17:42)
[2019-09-10] MEDS: VITAL AF 1.2 1,000 ML BOTTLE GT PRN (17:42)
--- NOTE | 2019-09-10 19:15 | NUR ---
RN CLOSING NOTES PATIENT IS IN BED RESTING WITH HOB ELEVATED. PT IS ON VENT. PT IS ON GTF AND TOLERATED WELL. GTF IS KEPT PATENT. PT HAS FLEXI SEAL AND DRAINING PROPERLY.VITAL SIGNS ARE WNL. NO S/S OF DISCOMFORT NOTED. ALL DUE MEDS WERE GIVEN ORDERED AND TOLERATED WELL. PT HAD HD THIS SHIFT. WILL ENDORSE TO PM SHIFT.
[2019-09-10 20:00] VITALS: BP 136/53
[2019-09-10] MEDS: ATORVASTATIN 40 MG TABLET PO SCH (20:54)
[2019-09-10] MEDS: COLISTIMETHATE SODIUM 100 MG in IV NS 0.9% 50 ML IV SCH (20:54)
[2019-09-10] MEDS: INSULIN GLARGINE, 100 UNIT/ML CARTRIDGE SQ SCH (21:20)
[2019-09-11] VITALS: BP 119/59
[2019-09-11] MEDS: DEXTROSE 50%-WATER 50 ML DISP.SYRIN IV PRN (02:20)
[2019-09-11] MEDS: BLOOD SUGAR DIAGNOSTIC 1 EACH STRIP IN SCH ×6 (02:21→21:38)
[2019-09-11] MEDS: METOCLOPRAMIDE HCL 10 MG/2 ML VIAL IV SCH ×3 (03:22→17:09)
[2019-09-11 04:00] VITALS: BP 117/40
[2019-09-11] MEDS: METRONIDAZOLE 500 MG TABLET PO SCH ×3 (05:32→20:14)
[2019-09-11 07:24] LABS: BASOPHILS # (AUTO) 0.1 /CMM (0.0-0.2); BASOPHILS % (AUTO) 0.3 % (0.0-2.0); EOSINOPHILS % (AUTO) 7.1 % (0.0-6.0); HEMATOCRIT 31 % (39-51); LYMPHOCYTES # (AUTO) 4.5 /CMM (0.8-4.8); LYMPHOCYTES % (AUTO) 23.5 % (20.0-44.0); MEAN CORPUSCULAR HGB CONC 32 g/dl (31.0-36.0); MEAN CORPUSCULAR VOLUME 93 fL (80-96); MONOCYTES # (AUTO) 1.8 /CMM (0.1-1.30); MONOCYTES % (AUTO) 9.4 % (2.0-12.0); NEUTROPHILS # (AUTO) 11.4 /CMM (1.8-8.9); NEUTROPHILS % (AUTO) 59.7 % (43.0-81.0); PLATELET COUNT (AUTO) 262 /CMM (150-450); RED BLOOD CELL COUNT(AUTO) 3.34 MIL/uL (4.5-6.0); WHITE BLOOD COUNT (AUTO) 19.1 K/uL (4.3-11.0)
--- NOTE | 2019-09-11 07:30 | NUR ---
RN NOTES Received patient, awake, with spontaneous eye opening, unable to track. Not on any form of distress, tolerating vent setting as ordered. Sating fine. No indication of pain noted at this time. Sinus tachy on the monitor with hr on the 110. Gt in place, no gastric residual taken at this time, feeding of vital af running at 40cc/hr. ABDIEL picc line and GENO midline in place. L femoral hd cath in place and intact, clean and dry. no bleeding noted. HOB elevated. Safety measures observed and maintained. Bed in low and locked positioned. Call light placed within reach. will continue to monitor patient accordingly
[2019-09-11 07:49] LABS: CALCIUM, SERUM 8.3 mg/dL (8.5-10.1); CREATININE 2.8 mg/dL (0.6-1.3); POTASSIUM 3.8 mmol/L (3.5-5.1)
[2019-09-11 08:00] VITALS: BP 109/51
[2019-09-11] MEDS: PROSOURCE / PROSTAT (PYXIS) 30 ML UDC GT SCH ×2 (09:29→17:10)
[2019-09-11] MEDS: HYDROCORTISONE SOD SUCCINATE 100 MG/2 ML VIAL IV SCH (09:29)
[2019-09-11] MEDS: ASPIRIN 81 MG TAB.CHEW GT SCH (09:29)
[2019-09-11] MEDS: LACTOBACILLUS RHAMNOSUS GG 1 EACH CAP.SPRINK GT SCH ×2 (09:29→17:09)
[2019-09-11] MEDS: TRIAMCINOLONE ACETONIDE 0.1% CR 15 GM TUBE TP SCH ×2 (09:30→20:15)
[2019-09-11] MEDS: HYDROGEL DRESSING 90 GM TUBE TP SCH (09:30)
[2019-09-11] MEDS: DAKINS QUARTER STRENGTH (0.125%) 480 ML BOTTLE TOP SCH (09:30)
[2019-09-11] MEDS: AMMONIUM LACTATE 227 GM BOTTLE TP SCH ×2 (09:31→21:45)
[2019-09-11] MEDS: NYSTATIN TOP POWDER 15 GM BOTTLE TP SCH ×2 (09:31→17:10)
[2019-09-11] MEDS: Z GUARD REMEDY 4 OZ OINT TP SCH ×2 (09:32→21:45)
[2019-09-11 12:00] VITALS: BP 105/62
[2019-09-11] MEDS: INSULIN REGULAR, HUMAN 100 UNIT/ML 3 ML VIAL SQ PRN ×3 (12:27→21:43)
[2019-09-11 16:00] VITALS: BP 122/74
--- NOTE | 2019-09-11 19:20 | NUR ---
[facility] RN NOTE PATIENT IN BED OBTUNDED CURRENTLY RECEIVING DIALYSIS, GOAL IS 1 LITER. PATIENT TOLERATING NO S/S OF DISTRESS. PATIENT AWAKE NON VERBAL OPENS EYES SPONTANEOUSLY. PATIENT TOLERATING CURRENT VENT SETTINGS. CALLED PHARMACY TO CONFIRM ADMINISTRATION POST DIALYSIS OF AMIKACIN, NO TROUGH DONE YET, PUT RANDOM LESS THAN 10. PER PHARMACY SAFE TO GIVE LONG BLOOD CONCENTRATION LESS THAN 10. PATIENT TUBE FEEDING GOING AT 40 CC NO S/S OF ASPIRATION TOLERATING WELL. MINIMAL RESIDUAL NOTED. PATIENT HR 118 ON THE MONITOR. WILL CONTINUE TO MONITOR HR POST HD TO SEE IF CARDIZEM DRIP NEEDS TO BE STARTED. PATIENT TOLERATING VENT. NO S/S OF RESP DISTRESS. RN WILL CONTINUE TO GIVE CARE NEEDED.
--- NOTE | 2019-09-11 19:20 | NUR ---
RN NOTES Endorsed for continuity of care. Not on any form of distress. Feeding infusing at desired rate. Head of bed elevated. Safety measures in place. Call light within reach. Patient ongoing dialysis treatment
[2019-09-11 20:00] VITALS: BP 128/70
--- NOTE | 2019-09-11 20:00 | NUR ---
[facility] RN NOTE STAT AMIKACIN PRIOR TO HD NOT DRAWN, MD ARAUJO NOTIFIED. UNABLE TO GIVE AMIKACIN POST HD. NOTIFIED. OK TO HOLD AMIKACIN TODAY. PATIENT HAS ORDER FOR TROUGH LEVEL TOMORROW.
[2019-09-11] MEDS: MORPHINE SULFATE INJ 2 MG/ML DISP.SYRIN IV PRN (20:14)
[2019-09-11] MEDS: COLISTIMETHATE SODIUM 100 MG in IV NS 0.9% 50 ML IV SCH (20:14)
[2019-09-11] MEDS: ACETAMINOPHEN 650 MG/20.3 ML UDC NG PRN (20:14)
[2019-09-11] MEDS: ATORVASTATIN 40 MG TABLET PO SCH (21:39)
[2019-09-11] MEDS: INSULIN GLARGINE, 100 UNIT/ML CARTRIDGE SQ SCH (21:44)
[2019-09-12] VITALS (9 sets, daily range): BP systolic 106–149; BP diastolic 49–78
[2019-09-12] MEDS: BLOOD SUGAR DIAGNOSTIC 1 EACH STRIP IN SCH ×6 (01:34→21:11)
[2019-09-12] MEDS: INSULIN REGULAR, HUMAN 100 UNIT/ML 3 ML VIAL SQ PRN ×5 (01:35→21:15)
[2019-09-12] MEDS: METOCLOPRAMIDE HCL 10 MG/2 ML VIAL IV SCH ×3 (03:49→18:01)
[2019-09-12] MEDS: METRONIDAZOLE 500 MG TABLET PO SCH ×3 (05:00→20:06)
[2019-09-12] MEDS: VITAL AF 1.2 1,000 ML BOTTLE GT PRN (05:00)
[2019-09-12 06:30] LABS: CALCIUM, SERUM 8.7 mg/dL (8.5-10.1); CREATININE 2.9 mg/dL (0.6-1.3); POTASSIUM 3.3 mmol/L (3.5-5.1)
--- NOTE | 2019-09-12 07:05 | NUR ---
RN NOTE RECEIVED PT ON BED, VENT/ TRACH DEPENDENT, OBTUNDENT ,TOLERATING CURRENT VENT SETTING WELL, ON TELE ST HR IN 110'S , FLEXISEAL INTACT, TOLERATING TF A 40CC/HR WELL, NO RESIDUAL NOTED, R UPPER ARM MIDLINE AND L FEMORAL HD CATH SITES, CLEAN, DRY AND INTACT . SR UP x3, CALL LIGHT WITHIN EASY REACH, BED LOCKED AND IN LOWEST POSITION, CONTINUE TO MONITOR.
[2019-09-12] MEDS: HYDROCORTISONE SOD SUCCINATE 100 MG/2 ML VIAL IV SCH (08:34)
[2019-09-12] MEDS: ASPIRIN 81 MG TAB.CHEW GT SCH (08:34)
[2019-09-12] MEDS: LACTOBACILLUS RHAMNOSUS GG 1 EACH CAP.SPRINK GT SCH ×2 (08:34→16:27)
[2019-09-12] MEDS: AMMONIUM LACTATE 227 GM BOTTLE TP SCH ×2 (08:36→20:07)
[2019-09-12] MEDS: DAKINS QUARTER STRENGTH (0.125%) 480 ML BOTTLE TOP SCH (08:36)
[2019-09-12] MEDS: NYSTATIN TOP POWDER 15 GM BOTTLE TP SCH ×2 (08:37→16:30)
[2019-09-12] MEDS: TRIAMCINOLONE ACETONIDE 0.1% CR 15 GM TUBE TP SCH ×2 (08:37→20:07)
[2019-09-12] MEDS: HYDROGEL DRESSING 90 GM TUBE TP SCH ×2 (08:38→16:28)
[2019-09-12] MEDS: PROSOURCE / PROSTAT (PYXIS) 30 ML UDC GT SCH ×2 (08:41→16:29)
[2019-09-12] MEDS: ACETAMINOPHEN 650 MG/20.3 ML UDC NG PRN (09:30)
[2019-09-12] MEDS: Z GUARD REMEDY 4 OZ OINT TP SCH ×2 (10:20→20:07)
--- NOTE | 2019-09-12 12:00 | NUR ---
RN NOTES TRACH CARE DONE, PT STABLE, CONTINUE TO MONITOR.
[2019-09-12] MEDS: MORPHINE SULFATE INJ 2 MG/ML DISP.SYRIN IV PRN (13:10)
--- NOTE | 2019-09-12 15:00 | NUR ---
RN NOTES DR PATINO NOTIFED REGARDING K=3.3,
--- NOTE | 2019-09-12 18:00 | NUR ---
RN NOTES NO SIGNIFICANT CHANGES NOTED ON THIS SHIFT, PT TOLERATING TF WELL, SR UP x3, CALL LIGHT WITHIN EASY REACH, WILL ENDOSE TO PERCUSSION INSTRUCTOR NURSE FOR CONTINUITY OF CARE.
--- NOTE | 2019-09-12 19:35 | NUR ---
RN NOTES, RECEIVED PATIENT ON BED, ON MECHANICAL VENTILATOR TOLERATING SETTINGS WELL, SR ON TELE HR IN 103BPM AT THIS TIME, NO SOB/ACUTE DISTRESS NOTED AT THIS TIME, GT IN PLACED GTF VITAL 1.2 @40ML./HR TOLERATED WELL, MINIMAL RESIDUAL NOTED, LEFT FEMORAL HD CATH SITE AND L UPPER ARM MIDLINE SITES , GENO PICC ALL PATENT AND INTACT, ON ISOLATION PRECAUTION, DRY AND CLEAN AND WELL REPOSITIONED AT THIS TIME, SUCTIONING PROVIDED FOR REMOVAL OF SECRETIONS, WILL CONTINUE TO MONITOR CLOSELY.
[2019-09-12] MEDS: COLISTIMETHATE SODIUM 100 MG in IV NS 0.9% 50 ML IV SCH (20:06)
--- NOTE | 2019-09-12 20:31 | NUR ---
PT RECEIVE STABLE ON MV, SETTINGS ARE AC 18 500 @40 % FIO2, TRACH PATENT AND SECURED, AMBU BAG IS AT BEDSIDE, WILL CONTINUE TO MONITOR Addendum: 09/12/19 at 2032 by LAYLA PENA RT Amended: Links added.
[2019-09-12] MEDS: ATORVASTATIN 40 MG TABLET PO SCH (21:10)
[2019-09-12] MEDS: INSULIN GLARGINE, 100 UNIT/ML CARTRIDGE SQ SCH (21:14)
[2019-09-13] VITALS: BP 105/48
[2019-09-13] MEDS: BLOOD SUGAR DIAGNOSTIC 1 EACH STRIP IN SCH ×6 (00:12→21:12)
[2019-09-13] MEDS: INSULIN REGULAR, HUMAN 100 UNIT/ML 3 ML VIAL SQ PRN ×4 (00:18→17:56)
[2019-09-13 04:00] VITALS: BP 101/53
[2019-09-13] MEDS: METOCLOPRAMIDE HCL 10 MG/2 ML VIAL IV SCH ×3 (04:13→18:15)
[2019-09-13] MEDS: METRONIDAZOLE 500 MG TABLET PO SCH ×3 (04:13→21:12)
[2019-09-13] MEDS: VITAL AF 1.2 1,000 ML BOTTLE GT PRN (05:49)
[2019-09-13 06:19] LABS: BASOPHILS % (AUTO) 0.3 % (0.0-2.0); EOSINOPHILS % (AUTO) 5.1 % (0.0-6.0); HEMATOCRIT 27 % (39-51); HEMOGLOBIN 8.8 g/dL (13.5-17.5); LYMPHOCYTES # (AUTO) 2.5 /CMM (0.8-4.8); LYMPHOCYTES % (AUTO) 17.8 % (20.0-44.0); MEAN CORPUSCULAR HGB CONC 33 g/dl (31.0-36.0); MEAN CORPUSCULAR VOLUME 94 fL (80-96); MONOCYTES # (AUTO) 1.2 /CMM (0.1-1.30); MONOCYTES % (AUTO) 8.2 % (2.0-12.0); NEUTROPHILS # (AUTO) 9.8 /CMM (1.8-8.9); NEUTROPHILS % (AUTO) 68.6 % (43.0-81.0); PLATELET COUNT (AUTO) 325 /CMM (150-450); RED BLOOD CELL COUNT(AUTO) 2.88 MIL/uL (4.5-6.0); WHITE BLOOD COUNT (AUTO) 14.3 K/uL (4.3-11.0)
[2019-09-13 06:26] LABS: CALCIUM, SERUM 8.6 mg/dL (8.5-10.1); CREATININE 3.4 mg/dL (0.6-1.3); PHOSPHORUS 5.6 mg/dL (2.5-4.9); POTASSIUM 3.8 mmol/L (3.5-5.1)
--- NOTE | 2019-09-13 06:42 | NUR ---
RN NOTE NO SIGNIFICANT CHANGE IN CONDITION DURING THE NIGHT, WILL ENDORSE CONTINUITY OF CARE TO ONCOMING NURSE.
--- NOTE | 2019-09-13 07:20 | NUR ---
SYSTEMS ACCOUNTANT OPENING NOTE RECEIVED PATIENT IN BED OBTUNDED. NO S/S OF DISTRESS. PATIENT AWAKE NON VERBAL OPENS EYES SPONTANEOUSLY. PATIENT TOLERATING CURRENT VENT SETTINGS.WITH GTUBE, PATENT AND IN PLACE, FEEDING GOING AT 40 CC NO S/S OF ASPIRATION TOLERATING WELL. MINIMAL RESIDUAL NOTED. PATIENT ON SINUS TACHYCARDIA ON THE EQUINE INTERN. NO PAIN NOTED. IV SITES PATENT AND IN PLACE ON ABDIEL, GENO. HD SITE ON L FEMORAL CATHETER CLEAN AND SECURE. CALL LIGHT IN REACH, SIDE RAILS UP, BED LOCKED, LOW AND AT SEMI-HERRERA'S POSITION. WILL CONTINUE TO MONITOR.
[2019-09-13 08:00] VITALS: BP_SYST 132; BP_DIAS 45; BP_DIAS 55
[2019-09-13] MEDS: LACTOBACILLUS RHAMNOSUS GG 1 EACH CAP.SPRINK GT SCH ×2 (08:39→17:00)
[2019-09-13] MEDS: ASPIRIN 81 MG TAB.CHEW GT SCH (08:39)
[2019-09-13] MEDS: PROSOURCE / PROSTAT (PYXIS) 30 ML UDC GT SCH ×2 (08:40→17:51)
[2019-09-13] MEDS: Z GUARD REMEDY 4 OZ OINT TP SCH ×2 (08:41→21:14)
[2019-09-13] MEDS ORDERED: HYDROCORTISONE SOD SUCCINATE 100 MG/2 ML VIAL IV SCH (09:00)
[2019-09-13] MEDS: TRIAMCINOLONE ACETONIDE 0.1% CR 15 GM TUBE TP SCH ×2 (09:13→21:13)
[2019-09-13] MEDS: HYDROGEL DRESSING 90 GM TUBE TP SCH ×3 (09:14→17:51)
[2019-09-13] MEDS: AMMONIUM LACTATE 227 GM BOTTLE TP SCH ×2 (09:14→21:14)
[2019-09-13] MEDS: NYSTATIN TOP POWDER 15 GM BOTTLE TP SCH ×2 (09:14→17:52)
--- NOTE | 2019-09-13 09:48 | NUR ---
Late entry for 09/07/19: SW received a call from the patient's , Janet Bravo [phone] stating "I keep getting calls pressuring me to have a meeting with the Doctor and make a decision about my 's plan of care". Tino Gonzales, her and her daughter's, Christine and Adrienne have made the decision to have the pt. remain Full Code and "aren't going to change our mind". Per Janet, she feels very pressured and has been experiencing a lot of stress and is asking not to be called and at asked about the subject. Per Janet, she wants the the pt. to "live as many days as God grants him". SW will be available as needed.
[2019-09-13 12:00] VITALS: BP 107/50
[2019-09-13 16:00] VITALS: BP_SYST 103; BP_SYST 105; BP_DIAS 48; BP_DIAS 55
--- NOTE | 2019-09-13 19:15 | NUR ---
[facility] RN NOTE PATIENT IN BED OBTUNDED NO S/S OF DISTRESS. PATIENT AWAKE NON VERBAL OPENS EYES SPONTANEOUSLY. PATIENT TOLERATING CURRENT VENT SETTINGS. PATIENT TUBE FEEDING GOING AT 40 CC NO S/S OF ASPIRATION TOLERATING WELL. MINIMAL RESIDUAL NOTED. PATIENT HR 111 ON THE MONITOR. WILL CONTINUE TO MONITOR HR POST HD TO SEE IF CARDIZEM DRIP NEEDS TO BE STARTED. TOLERATING GTUBE FEEDING AT THIS TIME. NO RESIDUAL NOTED. RN WILL CONTINUE TO GIVE CARE AND MONITOR. SAFETY PRECAUTIONS IN PLACE SIDE RAILS UP X 3.
--- NOTE | 2019-09-13 19:20 | NUR ---
RATE REVIEWER CLOSING NOTE: PATIENT IN BED OBTUNDED. NO S/S OF DISTRESS. PATIENT AWAKE NON VERBAL OPENS EYES SPONTANEOUSLY. PATIENT TOLERATING CURRENT VENT SETTINGS.STILL WITH GTUBE, PATENT AND IN PLACE, FEEDING GOING AT 40 CC NO S/S OF ASPIRATION TOLERATING WELL. MINIMAL RESIDUAL NOTED. PATIENT ON SINUS TACHYCARDIA ON THE PIPELINE INSPECTOR. NO PAIN NOTED. IV SITES PATENT AND IN PLACE ON ABDIEL, GENO. HD SITE ON L FEMORAL CATHETER CLEAN AND SECURE. HEMODIALYSIS DONE, NO OUTPUT REPORTED. CALL LIGHT IN REACH, SIDE RAILS UP, BED LOCKED, LOW AND AT SEMI-HERRERA'S POSITION. ENDORSED TO ONCOMING SHIFT FOR MARKELL.
[2019-09-13] MEDS: COLISTIMETHATE SODIUM 100 MG in IV NS 0.9% 50 ML IV SCH (19:27)
[2019-09-13 20:00] VITALS: BP_SYST 117; BP_SYST 147; BP_DIAS 54; BP_DIAS 92
[2019-09-13] MEDS: ATORVASTATIN 40 MG TABLET PO SCH (21:12)
[2019-09-13] MEDS: INSULIN GLARGINE, 100 UNIT/ML CARTRIDGE SQ SCH (21:12)
[2019-09-13] MEDS: MORPHINE SULFATE INJ 2 MG/ML DISP.SYRIN IV PRN (21:15)
[2019-09-14] VITALS (7 sets, daily range): BP systolic 106–123; BP diastolic 45–75
[2019-09-14] MEDS: BLOOD SUGAR DIAGNOSTIC 1 EACH STRIP IN SCH ×6 (01:50→21:34)
[2019-09-14] MEDS: METOCLOPRAMIDE HCL 10 MG/2 ML VIAL IV SCH ×3 (03:58→18:15)
[2019-09-14] MEDS: METRONIDAZOLE 500 MG TABLET PO SCH ×3 (04:02→20:40)
[2019-09-14 06:43] LABS: BASOPHILS # (AUTO) 0.1 /CMM (0.0-0.2); BASOPHILS % (AUTO) 0.6 % (0.0-2.0); EOSINOPHILS % (AUTO) 8.1 % (0.0-6.0); HEMATOCRIT 29 % (39-51); HEMOGLOBIN 9.2 g/dL (13.5-17.5); LYMPHOCYTES # (AUTO) 2.4 /CMM (0.8-4.8); LYMPHOCYTES % (AUTO) 14.3 % (20.0-44.0); MEAN CORPUSCULAR HGB CONC 32 g/dl (31.0-36.0); MEAN CORPUSCULAR VOLUME 94 fL (80-96); MONOCYTES # (AUTO) 1.4 /CMM (0.1-1.30); MONOCYTES % (AUTO) 8.1 % (2.0-12.0); NEUTROPHILS # (AUTO) 11.6 /CMM (1.8-8.9); NEUTROPHILS % (AUTO) 68.9 % (43.0-81.0); PLATELET COUNT (AUTO) 331 /CMM (150-450); RED BLOOD CELL COUNT(AUTO) 3.02 MIL/uL (4.5-6.0); WHITE BLOOD COUNT (AUTO) 16.9 K/uL (4.3-11.0)
[2019-09-14 07:11] LABS: CALCIUM, SERUM 8.6 mg/dL (8.5-10.1); CREATININE 2.7 mg/dL (0.6-1.3); MAGNESIUM 1.9 mg/dL (1.8-2.4); POTASSIUM 3.4 mmol/L (3.5-5.1)
--- NOTE | 2019-09-14 08:30 | NUR ---
RN NOTE CARE ENDORSED TO GARRY MATT IN [facility] FOR MARKELL, PT REMAINED STABLE AND SEEN BY DR WAYNE. ENDORSED TO FOLLOW UP WITH MD REGARDING THE MAYDA ON LEFT AKA STUMP.
[2019-09-14] MEDS: HYDROGEL DRESSING 90 GM TUBE TP SCH ×3 (09:00→17:31)
[2019-09-14] MEDS: PROSOURCE / PROSTAT (PYXIS) 30 ML UDC GT SCH ×2 (09:26→17:26)
[2019-09-14] MEDS: ASPIRIN 81 MG TAB.CHEW GT SCH (09:26)
[2019-09-14] MEDS: LACTOBACILLUS RHAMNOSUS GG 1 EACH CAP.SPRINK GT SCH ×2 (09:26→17:25)
[2019-09-14] MEDS: AMMONIUM LACTATE 227 GM BOTTLE TP SCH ×2 (09:27→21:01)
[2019-09-14] MEDS: NYSTATIN TOP POWDER 15 GM BOTTLE TP SCH ×2 (09:27→17:31)
[2019-09-14] MEDS: Z GUARD REMEDY 4 OZ OINT TP SCH ×2 (09:28→21:01)
[2019-09-14] MEDS: TRIAMCINOLONE ACETONIDE 0.1% CR 15 GM TUBE TP SCH ×2 (09:29→21:00)
--- NOTE | 2019-09-14 09:30 | NUR ---
RN NOTES RECEIVED HANDOFF REPORT FROM ABHISHEK CASTAÑEDA FOR CONTINUITY OF CARE
--- NOTE | 2019-09-14 10:30 | NUR ---
RN NOTES POTASSIUM LEVEL OF 3.[address] CALIXTO. NO NEW ORDERS REGARDING REPLACEMENT, WILL CONTINUE TO MONITOR
[2019-09-14] MEDS: VITAL AF 1.2 1,000 ML BOTTLE GT PRN (12:18)
[2019-09-14] MEDS: INSULIN REGULAR, HUMAN 100 UNIT/ML 3 ML VIAL SQ PRN ×2 (13:16→21:37)
--- NOTE | 2019-09-14 16:47 | NUR ---
ENDORSED TO ABHISHEK CASTAÑEDA FOR MARKELL
--- NOTE | 2019-09-14 19:35 | NUR ---
RN NOTES, PATIENT IN BED OBTUNDED, ON MECHANICAL VENTILATOR, TOLERATING SETTINGS WELL, NO S/S SOB/ACUTE DISTRESS NOTED AT THIS TIME, WITH G-TUBE IN PLACED, PATENT AND INTACT, VITAL AT 40 CC, WITH MINIMAL RESIDUAL NOTED, PATIENT ON SINUS TACHYCARDIA ON THE HEMATOLOGY TECHNOLOGIST. WITH HR IN 100S AT THIS TIME, GENO PICC LINE IN PLACED PATENT AND INTACT, LEFT FEMORAL CATHETER CLEAN INTACT, NO BLEEDING NOTED, CALL LIGHT IN REACH, SIDE RAILS UP, BED LOCKED AND LOWEST POSITION, HOB ELEVATED AT ALL TIMES, WILL CONTINUE TO MONITOR CLOSELY.
[2019-09-14] MEDS: COLISTIMETHATE SODIUM 100 MG in IV NS 0.9% 50 ML IV SCH (20:40)
[2019-09-14] MEDS: ATORVASTATIN 40 MG TABLET PO SCH (21:02)
[2019-09-14] MEDS: INSULIN GLARGINE, 100 UNIT/ML CARTRIDGE SQ SCH (21:35)
[2019-09-14] MEDS: LORAZEPAM INJ 2 MG/ML VIAL IV PRN (23:51)
[2019-09-15] VITALS: BP 107/69
[2019-09-15] MEDS: BLOOD SUGAR DIAGNOSTIC 1 EACH STRIP IN SCH ×6 (00:55→21:36)
[2019-09-15] MEDS: INSULIN REGULAR, HUMAN 100 UNIT/ML 3 ML VIAL SQ PRN ×3 (00:56→21:46)
[2019-09-15] MEDS: MORPHINE SULFATE INJ 2 MG/ML DISP.SYRIN IV PRN ×2 (00:57→16:26)
[2019-09-15] MEDS: METOCLOPRAMIDE HCL 10 MG/2 ML VIAL IV SCH ×3 (02:12→18:45)
[2019-09-15 04:00] VITALS: BP 110/53
[2019-09-15] MEDS: METRONIDAZOLE 500 MG TABLET PO SCH ×3 (04:29→21:36)
--- NOTE | 2019-09-15 04:38 | NUR ---
RN NOTES, UPON BLOOD SUGAR CHECK BLOOD SUGAR NOTED 64MG/dL, WILL ADMINISTER DEXTROSE 50% IV ORDERED, AND F/U WITH HOSPITAL PROC[facility].
[2019-09-15] MEDS: DEXTROSE 50%-WATER 50 ML DISP.SYRIN IV PRN (04:46)
--- NOTE | 2019-09-15 05:18 | NUR ---
RN NOTES, AFTER RECHECKED BLOOD SUGAR, BLOOD SUGAR AT THIS TIME 164MG/dL, WILL CONTINUE TO MONITOR CLOSELY.
[2019-09-15 06:39] LABS: BASOPHILS # (AUTO) 0.1 /CMM (0.0-0.2); BASOPHILS % (AUTO) 0.7 % (0.0-2.0); HEMATOCRIT 25 % (39-51); HEMOGLOBIN 7.9 g/dL (13.5-17.5); LYMPHOCYTES # (AUTO) 2.1 /CMM (0.8-4.8); LYMPHOCYTES % (AUTO) 11.7 % (20.0-44.0); MEAN CORPUSCULAR HGB CONC 32 g/dl (31.0-36.0); MEAN CORPUSCULAR VOLUME 94 fL (80-96); MONOCYTES # (AUTO) 1.7 /CMM (0.1-1.30); MONOCYTES % (AUTO) 9.5 % (2.0-12.0); NEUTROPHILS # (AUTO) 11.9 /CMM (1.8-8.9); NEUTROPHILS % (AUTO) 66.1 % (43.0-81.0); PLATELET COUNT (AUTO) 346 /CMM (150-450); RED BLOOD CELL COUNT(AUTO) 2.65 MIL/uL (4.5-6.0)
--- NOTE | 2019-09-15 07:15 | NUR ---
RN OPENING NOTE RECEIVED PATIENT IN BED RESTING. PATIENT IS OBTUNDED, ON VENT, AND ON GTF. GTF IS ON AND RUNNING. RESPONSIVE TO LIGHT TOUCH. IN NO APPARENT DISTRESS NOTED. BED IS LOCKED. AFEBRILE. WILL CONTINUE TO MONITOR.
--- NOTE | 2019-09-15 07:20 | NUR ---
RN NOTE, NO SIGNIFICANT CHANGE IN CONDITION THROUGHOUT THE NIGHT, WILL ENDORSE CONTINUITY OF CARE TO ONCOMING NURSE.
[2019-09-15 07:33] LABS: CALCIUM, SERUM 8.4 mg/dL (8.5-10.1); CREATININE 3.3 mg/dL (0.6-1.3); MAGNESIUM 1.9 mg/dL (1.8-2.4); PHOSPHORUS 4.5 mg/dL (2.5-4.9); POTASSIUM 3.6 mmol/L (3.5-5.1)
[2019-09-15 08:00] VITALS: BP 117/61
[2019-09-15] MEDS: LACTOBACILLUS RHAMNOSUS GG 1 EACH CAP.SPRINK GT SCH ×2 (09:03→17:28)
[2019-09-15] MEDS: ASPIRIN 81 MG TAB.CHEW GT SCH (09:04)
[2019-09-15] MEDS: PROSOURCE / PROSTAT (PYXIS) 30 ML UDC GT SCH ×2 (09:04→17:28)
[2019-09-15] MEDS: HYDROGEL DRESSING 90 GM TUBE TP SCH ×3 (09:20→17:09)
[2019-09-15] MEDS: TRIAMCINOLONE ACETONIDE 0.1% CR 15 GM TUBE TP SCH ×2 (09:20→21:43)
[2019-09-15] MEDS: NYSTATIN TOP POWDER 15 GM BOTTLE TP SCH ×2 (09:22→17:09)
[2019-09-15] MEDS: AMMONIUM LACTATE 227 GM BOTTLE TP SCH ×2 (09:22→21:42)
[2019-09-15] MEDS: Z GUARD REMEDY 4 OZ OINT TP SCH ×2 (09:22→21:43)
[2019-09-15 12:00] VITALS: BP 113/44
[2019-09-15 16:00] VITALS: BP 110/48
[2019-09-15] MEDS: VITAL AF 1.2 1,000 ML BOTTLE GT PRN (16:45)
[2019-09-15] MEDS: AMIKACIN 300 MG in IV D5W 100 ML IV PRN (16:46)
--- NOTE | 2019-09-15 16:56 | NUR ---
AMIKACIN GIVEN POST HD.
--- NOTE | 2019-09-15 18:59 | NUR ---
RN CLOSING NOTE PATIENT IS IN BED RESTING. PATIENT IS OBTUNDED, ON VENT, AND ON GTF. GTF ON AND KEPT PATENT WITH NO ADVERSE EFFECT NOTED. PT HAS FLEXISEAL, STOOL BAG CHANGED IN THIS SHIFT. PATIENT IS KEPT CLEAN, DRY, AND COMFORTABLE THROUGHOUT SHIFT. ALL DUE MEDS GIVEN AND TOLERATED WELL. WILL ENDORSE TO OPTICS TEST TECHNICIAN RN.
--- NOTE | 2019-09-15 19:20 | NUR ---
ELECTRONICS PARTS SALES REPRESENTATIVE NOTE PATIENT RECEIVED SITTING UP IN BED LEFT LATERAL, OBTUNDED. PATIENT ABLE TO OPEN EYES TO TACTILE STIMULI. PATIENT HAS GENO PICC LINE PATENT AND INTACT. PATIENT TOLERATING CURRENT VENT SETTINGS NO S/S OF RESP DISTRESS. PATIENT ST ON THE MONITOR HR 112. NO S/S OF ACUTE DISTRESS. PATIENT ON VITAL AT 40 CC NO RESIDUAL NOTED. NO S/S OF ASPIRATION. PATIENT HAS FLEXI SEAL IN PLACE DRAINING WELL. PATIENT REPOSITIONED, ORAL CARE GIVEN, SAFETY PRECAUTIONS IN PLACE. RN WILL CONTINUE TO MONITOR FOR CHANGES.
[2019-09-15 20:00] VITALS: BP 109/45
[2019-09-15] MEDS: COLISTIMETHATE SODIUM 100 MG in IV NS 0.9% 50 ML IV SCH (20:13)
--- NOTE | 2019-09-15 20:53 | NUR ---
RT NOTE PT RECEIVED TRACHED ON MECHANICAL VENTILATION. AMBU BAG/BACK UP TRACH @ BEDSIDE. SX DONE, TRACH SECURED AND PATENT. TRACH CARE DONE. VENT PLUGGED TO RED OUTLET. ALARMS ON AND AUDIBLE. CONT. PULSE OX CONNECTED. NO SOB NOTED AT THIS TIME. WILL CONTINUE TO MONITOR T/O SHIFT. Addendum: 09/15/19 at 2053 by MARCIA YOUNG RT Amended: Links added.
[2019-09-15 21:23] LABS: OCCULT BLOOD STOOL NEGATIVE (NEGATIVE)
[2019-09-15] MEDS: ATORVASTATIN 40 MG TABLET PO SCH (21:36)
[2019-09-15] MEDS: INSULIN GLARGINE, 100 UNIT/ML CARTRIDGE SQ SCH (21:45)
[2019-09-16] VITALS: BP 117/34
[2019-09-16] MEDS: BLOOD SUGAR DIAGNOSTIC 1 EACH STRIP IN SCH ×6 (01:58→21:55)
[2019-09-16 04:00] VITALS: BP 113/40
[2019-09-16] MEDS: METRONIDAZOLE 500 MG TABLET PO SCH ×2 (04:00→13:40)
[2019-09-16] MEDS: METOCLOPRAMIDE HCL 10 MG/2 ML VIAL IV SCH ×3 (04:00→18:11)
[2019-09-16 06:39] LABS: BASOPHILS # (AUTO) 0.1 /CMM (0.0-0.2); BASOPHILS % (AUTO) 0.6 % (0.0-2.0); EOSINOPHILS % (AUTO) 14.9 % (0.0-6.0); HEMATOCRIT 25 % (39-51); HEMOGLOBIN 8.1 g/dL (13.5-17.5); LYMPHOCYTES # (AUTO) 2.4 /CMM (0.8-4.8); LYMPHOCYTES % (AUTO) 13.5 % (20.0-44.0); MEAN CORPUSCULAR HGB CONC 32 g/dl (31.0-36.0); MEAN CORPUSCULAR VOLUME 94 fL (80-96); MONOCYTES # (AUTO) 1.8 /CMM (0.1-1.30); MONOCYTES % (AUTO) 9.9 % (2.0-12.0); NEUTROPHILS # (AUTO) 10.8 /CMM (1.8-8.9); NEUTROPHILS % (AUTO) 61.1 % (43.0-81.0); PLATELET COUNT (AUTO) 339 /CMM (150-450); RED BLOOD CELL COUNT(AUTO) 2.68 MIL/uL (4.5-6.0); WHITE BLOOD COUNT (AUTO) 17.7 K/uL (4.3-11.0)
[2019-09-16 07:02] LABS: CALCIUM, SERUM 8.5 mg/dL (8.5-10.1); CREATININE 2.6 mg/dL (0.6-1.3); MAGNESIUM 1.9 mg/dL (1.8-2.4); PHOSPHORUS 3.3 mg/dL (2.5-4.9); POTASSIUM 3.9 mmol/L (3.5-5.1)
--- NOTE | 2019-09-16 07:20 | NUR ---
RECEIVED PATIENT IN BED AWAKE AND RESTING. PATIENT IS OBTUNDED, ON VENT, ON GTUBE FEEDING. GTF ON AND RUNNING. HOB IS ELEVATED. BED IS LOCKED. PATIENT ON FLEXI SEAL. WILL CONTINUE TO MONITOR.
[2019-09-16 08:00] VITALS: BP 99/55
[2019-09-16] MEDS: ASPIRIN 81 MG TAB.CHEW GT SCH (08:26)
[2019-09-16] MEDS: LACTOBACILLUS RHAMNOSUS GG 1 EACH CAP.SPRINK GT SCH ×2 (08:27→17:33)
[2019-09-16] MEDS: PROSOURCE / PROSTAT (PYXIS) 30 ML UDC GT SCH ×2 (08:27→17:33)
[2019-09-16] MEDS: INSULIN REGULAR, HUMAN 100 UNIT/ML 3 ML VIAL SQ PRN ×4 (08:52→22:27)
[2019-09-16] MEDS: TRIAMCINOLONE ACETONIDE 0.1% CR 15 GM TUBE TP SCH ×2 (09:27→21:55)
[2019-09-16] MEDS: HYDROGEL DRESSING 90 GM TUBE TP SCH ×3 (09:27→17:52)
[2019-09-16] MEDS: AMMONIUM LACTATE 227 GM BOTTLE TP SCH ×2 (09:28→21:56)
[2019-09-16] MEDS: NYSTATIN TOP POWDER 15 GM BOTTLE TP SCH ×2 (09:29→17:52)
[2019-09-16] MEDS: Z GUARD REMEDY 4 OZ OINT TP SCH ×2 (09:29→21:56)
[2019-09-16 12:00] VITALS: BP 98/47
[2019-09-16] MEDS: MORPHINE SULFATE INJ 2 MG/ML DISP.SYRIN IV PRN ×2 (13:58→18:18)
--- NOTE | 2019-09-16 14:34 | NUR ---
RT PT RECEIVED TRACH'D ON [facility] VENT. PRODUCTION METAL SPRAYER DONE. SPARE TRACH AND AMBU BAG AT BEDSIDE. TRACH SECURED AND PATENT. ALARMS ON AND FUNCTIONING PROPERLY. VENT PLUGGED INTO RED OUTLET. SUCTIONED AND MONITORED PRN. NO SOB NOTED THROUGHOUT SHIFT. WILL CONTINUE TO MONITOR THE PATIENT FOR ANY CHANGES. Addendum: 09/16/19 at 1745 by MAURICE ROCK RT Amended: Links added.
[2019-09-16 16:00] VITALS: BP 101/43
[2019-09-16] MEDS: VITAL AF 1.2 1,000 ML BOTTLE GT PRN (18:21)
--- NOTE | 2019-09-16 18:55 | NUR ---
RN CLOSING NOTE PATIENT IS IN BED RESTING WITH HOB ELEVATED. OBTUNDED. ON VENT. ON GTF AND TOLERATED WELL. GTF IS TURNED ON, RUNNING, AND KEPT PATENT. ALL DUE MEDS GIVEN AND TOLERATED WELL. PATIENT IS KEPT CLEAN, DRY, AND COMFORTABLE. WILL ENDORSE TO PRODUCTION MANUFACTURING WORKER RN.
[2019-09-16 20:00] VITALS: BP 102/36
--- NOTE | 2019-09-16 20:39 | NUR ---
GAS SCRUBBER OPERATOR OPENING NOTE RECEIVED PATIENT IN BED NON VERBAL PATIENT IS ON TRACH WITH SHILEY #7 AC 18, TV 500, FI02 40% WITH PEEP OF 5. PATIENT SEEMS TO BE TOLERATING VENT WELL. ON MONITOR HE IS SINUS TACHY WITH HTR AT 115. PATIENT HAS A GENO PICC LINE AND A LT FEMORAL HD CATH BOTH. FLEXISEAL ATTACHED. PATIENT HAS MULTIPLE WOUNDS WILL APPLY WOUND CARE ORDERED. ALL SAFETY PRECAUTION APPLIED. WILL CONTINUE TO MONITOR PATIENT.
[2019-09-16] MEDS: COLISTIMETHATE SODIUM 100 MG in IV NS 0.9% 50 ML IV SCH (20:46)
--- NOTE | 2019-09-16 20:57 | NUR ---
RT NOTE PT RECEIVED TRACHED ON MECHANICAL VENTILATION. AMBU BAG/BACK UP TRACH @ BEDSIDE. CONT. PULSE OX CONNECTED. VENT PLUGGED TO RED OUTLET. ALARMS ON AND AUDIBLE. SX DONE, TRACH SECURED AND PATENT. TRACH CARE DONE. NO SOB NOTED AT THIS TIME. WILL CONTINUE TO MONITOR T/O SHIFT. Addendum: 09/16/19 at 2057 by MARCIA YOUNG RT Amended: Links added.
[2019-09-16] MEDS: ATORVASTATIN 40 MG TABLET PO SCH (21:58)
[2019-09-16] MEDS: INSULIN GLARGINE, 100 UNIT/ML CARTRIDGE SQ SCH (22:25)
[2019-09-17] VITALS: BP 109/39
[2019-09-17] MEDS: BLOOD SUGAR DIAGNOSTIC 1 EACH STRIP IN SCH ×6 (01:30→21:38)
[2019-09-17] MEDS: MORPHINE SULFATE INJ 2 MG/ML DISP.SYRIN IV PRN ×2 (02:46→18:38)
[2019-09-17] MEDS: METOCLOPRAMIDE HCL 10 MG/2 ML VIAL IV SCH ×3 (03:34→18:44)
[2019-09-17] MEDS: INSULIN REGULAR, HUMAN 100 UNIT/ML 3 ML VIAL SQ PRN (03:35)
[2019-09-17 04:00] VITALS: BP 106/34
[2019-09-17 07:21] LABS: BASOPHILS # (AUTO) 0.1 /CMM (0.0-0.2); BASOPHILS % (AUTO) 0.5 % (0.0-2.0); EOSINOPHILS % (AUTO) 13.9 % (0.0-6.0); HEMATOCRIT 23 % (39-51); HEMOGLOBIN 7.6 g/dL (13.5-17.5); LYMPHOCYTES % (AUTO) 11.3 % (20.0-44.0); MEAN CORPUSCULAR HGB CONC 33 g/dl (31.0-36.0); MEAN CORPUSCULAR VOLUME 94 fL (80-96); MONOCYTES # (AUTO) 1.4 /CMM (0.1-1.30); MONOCYTES % (AUTO) 7.6 % (2.0-12.0); NEUTROPHILS % (AUTO) 66.7 % (43.0-81.0); PLATELET COUNT (AUTO) 344 /CMM (150-450); RED BLOOD CELL COUNT(AUTO) 2.48 MIL/uL (4.5-6.0); WHITE BLOOD COUNT (AUTO) 18.1 K/uL (4.3-11.0)
[2019-09-17 07:29] LABS: CALCIUM, SERUM 8.5 mg/dL (8.5-10.1); MAGNESIUM 1.8 mg/dL (1.8-2.4); PHOSPHORUS 3.5 mg/dL (2.5-4.9); POTASSIUM 4.2 mmol/L (3.5-5.1)
[2019-09-17 08:00] VITALS: BP 100/32
--- NOTE | 2019-09-17 08:29 | NUR ---
RT NOTE PT RECEIVED TRACHED ON MECHANICAL VENTILATION. AMBU BAG/BACK UP TRACH @ BEDSIDE. CONT. PULSE OX CONNECTED. VENT PLUGGED TO RED OUTLET. ALARMS ON AND AUDIBLE. SX DONE, TRACH SECURED AND PATENT. TRACH CARE DONE. NO SOB NOTED AT THIS TIME. WILL CONTINUE TO MONITOR T/O SHIFT. Addendum: 09/17/19 at 0829 by LESLY WARREN RT Amended: Links added.
[2019-09-17] MEDS: HYDROGEL DRESSING 90 GM TUBE TP SCH ×3 (08:51→17:47)
[2019-09-17] MEDS: LACTOBACILLUS RHAMNOSUS GG 1 EACH CAP.SPRINK GT SCH ×2 (08:53→17:42)
[2019-09-17] MEDS: PROSOURCE / PROSTAT (PYXIS) 30 ML UDC GT SCH ×2 (08:53→17:43)
[2019-09-17] MEDS: ASPIRIN 81 MG TAB.CHEW GT SCH (08:53)
[2019-09-17] MEDS: ACETAMINOPHEN 650 MG/20.3 ML UDC NG PRN (08:53)
[2019-09-17] MEDS: TRIAMCINOLONE ACETONIDE 0.1% CR 15 GM TUBE TP SCH ×2 (08:55→21:37)
[2019-09-17] MEDS: NYSTATIN TOP POWDER 15 GM BOTTLE TP SCH ×2 (08:59→17:48)
[2019-09-17] MEDS: Z GUARD REMEDY 4 OZ OINT TP SCH ×2 (09:00→21:37)
[2019-09-17] MEDS: AMMONIUM LACTATE 227 GM BOTTLE TP SCH ×2 (09:04→21:39)
[2019-09-17 12:00] VITALS: BP 86/35
--- NOTE | 2019-09-17 13:06 | NUR ---
RN NOTE RECEIVED CALL FROM LAB RE AMIKACIN LEVEL 14.5, PHARMACY NOTIFIED , NO NEED TO GIVEN AMIKACIN TODAY.
[2019-09-17] MEDS: ALBUMIN 25% 25 GM in PREMIX 1 EA IV PRN (13:21)
[2019-09-17 16:00] VITALS: BP 102/28
[2019-09-17 20:00] VITALS: BP 93/47
[2019-09-17] MEDS: COLISTIMETHATE SODIUM 100 MG in IV NS 0.9% 50 ML IV SCH (21:36)
[2019-09-17] MEDS: ATORVASTATIN 40 MG TABLET PO SCH (21:36)
[2019-09-17] MEDS: INSULIN GLARGINE, 100 UNIT/ML CARTRIDGE SQ SCH (21:43)
[2019-09-18] VITALS: BP 97/63
[2019-09-18] MEDS: BLOOD SUGAR DIAGNOSTIC 1 EACH STRIP IN SCH ×6 (01:29→21:21)
[2019-09-18] MEDS: METOCLOPRAMIDE HCL 10 MG/2 ML VIAL IV SCH ×3 (03:49→18:01)
[2019-09-18 04:00] VITALS: BP 104/82
--- NOTE | 2019-09-18 07:39 | NUR ---
RT NOTE PT RECEIVED TRACHED ON MECHANICAL VENTILATION. AMBU BAG/BACK UP TRACH @ BEDSIDE. CONT. PULSE OX CONNECTED. VENT PLUGGED TO RED OUTLET. ALARMS ON AND AUDIBLE. SX DONE, TRACH SECURED AND PATENT. TRACH CARE DONE. NO SOB NOTED AT THIS TIME. WILL CONTINUE TO MONITOR T/O SHIFT. Addendum: 09/18/19 at 0740 by LESLY WARREN RT Amended: Links added.
[2019-09-18 08:00] VITALS: BP 137/65
--- NOTE | 2019-09-18 08:00 | NUR ---
TELE1/RN AM SHIFT INITIAL NOTES RECEIVED PT ASLEEP IN BED, PT ALERT, OPEN EYES, EASILY AROUSED, NO ACUTE CHANGE OF CONDITION OR GRIMACING NOTED. VENT DEPENDENT WITH RATES SET PRESCRIBED, SATURATING @ 99%, RESPIRATIONS EVEN & UNLABORED, LUNG SOUNDS CLEAR, SUCTIONED FOR AIRWAY CLEARANCE. ON TELE MONITORING, SINUS TACHY, HR 104. GT FEEDING ON GOING @ 40CC/HR, NO GASTRIC RESIDUAL NOTED. PICC LINE FLUSHED, PATENT WITH NO S/S OF INFECTION. RECTAL TUBE IN PLACED, NOTED WITH BROWN LIQUID FECAL OUTPUT. WOUND DRESSINGS INTACT AND CLEAN. PT IS COMFORTABLE, SCHEDULED AM MEDS TO BE GIVEN. CL WITHIN REACHED AND ISOLATION OBSERVED. ON GOING MONITORING.
[2019-09-18 09:07] LABS: BASOPHILS # (AUTO) 0.2 /CMM (0.0-0.2); BASOPHILS % (AUTO) 1.2 % (0.0-2.0); EOSINOPHILS % (AUTO) 12.1 % (0.0-6.0); HEMATOCRIT 25 % (39-51); HEMOGLOBIN 7.9 g/dL (13.5-17.5); LYMPHOCYTES # (AUTO) 2.5 /CMM (0.8-4.8); LYMPHOCYTES % (AUTO) 13.7 % (20.0-44.0); MEAN CORPUSCULAR HGB CONC 32 g/dl (31.0-36.0); MEAN CORPUSCULAR VOLUME 95 fL (80-96); MONOCYTES # (AUTO) 1.7 /CMM (0.1-1.30); MONOCYTES % (AUTO) 9.3 % (2.0-12.0); NEUTROPHILS # (AUTO) 11.6 /CMM (1.8-8.9); NEUTROPHILS % (AUTO) 63.7 % (43.0-81.0); PLATELET COUNT (AUTO) 329 /CMM (150-450); RED BLOOD CELL COUNT(AUTO) 2.62 MIL/uL (4.5-6.0); WHITE BLOOD COUNT (AUTO) 18.2 K/uL (4.3-11.0)
[2019-09-18 09:16] LABS: CALCIUM, SERUM 8.6 mg/dL (8.5-10.1); CREATININE 2.6 mg/dL (0.6-1.3); MAGNESIUM 1.9 mg/dL (1.8-2.4); PHOSPHORUS 3.2 mg/dL (2.5-4.9); POTASSIUM 4.6 mmol/L (3.5-5.1)
[2019-09-18] MEDS: PROSOURCE / PROSTAT (PYXIS) 30 ML UDC GT SCH ×2 (10:16→17:45)
[2019-09-18] MEDS: LACTOBACILLUS RHAMNOSUS GG 1 EACH CAP.SPRINK GT SCH ×2 (10:16→17:48)
[2019-09-18] MEDS: ASPIRIN 81 MG TAB.CHEW GT SCH (10:17)
[2019-09-18] MEDS: HYDROGEL DRESSING 90 GM TUBE TP SCH ×3 (10:18→17:44)
[2019-09-18] MEDS: TRIAMCINOLONE ACETONIDE 0.1% CR 15 GM TUBE TP SCH ×2 (10:19→21:19)
[2019-09-18] MEDS: AMMONIUM LACTATE 227 GM BOTTLE TP SCH ×2 (10:19→21:19)
[2019-09-18] MEDS: Z GUARD REMEDY 4 OZ OINT TP SCH ×2 (10:20→21:20)
[2019-09-18 12:00] VITALS: BP 93/44
--- NOTE | 2019-09-18 12:00 | NUR ---
TELE1/RN NOON ROUNDS NO CHANGE OF CONDITION. MONITORING CONTINUED.
[2019-09-18] MEDS: NYSTATIN TOP POWDER 15 GM BOTTLE TP SCH ×2 (13:03→17:45)
[2019-09-18 16:00] VITALS: BP 93/35
--- NOTE | 2019-09-18 17:30 | NUR ---
TELE1/RN AFTERNOON ROUNDS PM CARE PROVIDED. NO CHANGE OF CONDITION. MONITORING CONTINUED.
[2019-09-18] MEDS: INSULIN REGULAR, HUMAN 100 UNIT/ML 3 ML VIAL SQ PRN ×2 (19:03→21:24)
--- NOTE | 2019-09-18 19:35 | NUR ---
COMPLIANCE LEAD OPENING NOTES RECEIVED PT ASLEEP IN BED, OBTUNDED OPEN EYES, EASILY AROUSED, NO GRIMACING NOTED. VENT DEPENDENT WITH RATES SET ORDERED, IN RED EMERGENCY PLUG, AUDIBLE ALARMS, AMBU BAG AT BEDSIDE, SUCTION IN PLACE, SATURATING @ 99%, RESPIRATIONS EVEN & UNLABORED, LUNG SOUNDS CLEAR, SUCTIONED NEEDED. ON TELE MONITORING, SINUS TACHY, HR 105. GT FEEDING ON GOING @ 40CC/HR, NOTED 55 GASTRIC RESIDUAL NOTED. PICC LINE FLUSHED, PATENT WITH NO S/S OF INFECTION. RECTAL TUBE IN PLACED, NOTED WITH BROWN LIQUID STOOL OUTPUT. WOUND DRESSINGS REMAIN INTACT AND CLEAN. PT IS COMFORTABLE, ISOLATION RENDERED. HEAD OF BED ELEVATED FOR ASPIRATIONS PRECAUTIONS REMAINS COMFORTABLE AT THIS TIME WILL CONTINUE TO MONITOR.
--- NOTE | 2019-09-18 19:39 | NUR ---
TELE1/RN AM SHIFT END NOTES ALL NEEDS MET, NO ACUTE CHANGE OF CONDITION NOTED DURING THE SHIFT. PT ENDORSED TO PM NURSE TO CONTINUE CARE. CL WITHIN REACHED, SAFETY MAINTAINED AND ISOLATION OBSERVED.
[2019-09-18 20:00] VITALS: BP 92/36
[2019-09-18] MEDS: COLISTIMETHATE SODIUM 100 MG in IV NS 0.9% 50 ML IV SCH (20:03)
[2019-09-18] MEDS: ATORVASTATIN 40 MG TABLET PO SCH (21:18)
[2019-09-18] MEDS: INSULIN GLARGINE, 100 UNIT/ML CARTRIDGE SQ SCH (21:26)
[2019-09-19] VITALS (7 sets, daily range): BP systolic 82–114; BP diastolic 37–61
[2019-09-19] MEDS: BLOOD SUGAR DIAGNOSTIC 1 EACH STRIP IN SCH ×6 (01:10→22:08)
[2019-09-19] MEDS: INSULIN REGULAR, HUMAN 100 UNIT/ML 3 ML VIAL SQ PRN ×5 (01:10→22:17)
[2019-09-19] MEDS: METOCLOPRAMIDE HCL 10 MG/2 ML VIAL IV SCH ×3 (04:05→19:40)
[2019-09-19] MEDS: VITAL AF 1.2 1,000 ML BOTTLE GT PRN (04:10)
--- NOTE | 2019-09-19 06:39 | NUR ---
VICE PRESIDENT OF BRAND MANAGEMENT CLOSING NOTES PT ASLEEP IN BED, OBTUNDED OPEN EYES, EASILY AROUSED, NO GRIMACING NOTED. VENT DEPENDENT WITH RATES SET ORDERED, IN RED EMERGENCY PLUG, AUDIBLE ALARMS, AMBU BAG AT BEDSIDE, SUCTION IN PLACE, SATURATING @ 99%, RESPIRATIONS EVEN & UNLABORED, LUNG SOUNDS CLEAR, SUCTIONED NEEDED THROUGHOUT SHIFT. ON TELE MONITORING, SR HR 100. GT FEEDING ON GOING @ 40CC/HR, NOTED 40CC GASTRIC RESIDUAL NOTED, TOLERATING FEEDING WELL AT THIS TIME. PICC LINE FLUSHED, INTACT AND PATENT , NO INFILTRATION PRESENT, DRESSING IS C/D/I.PATENT WITH NO S/S OF INFECTION, REMAINED AFEBRILE. RECTAL TUBE IN PLACED, NOTED WITH BROWN LIQUID STOOL 100CC OUTPUT. WOUND DRESSINGS REMAIN INTACT AND CLEAN. REPOSITIONED Q2HR AND OFFLOADED AFFECTED SITES, PT IS COMFORTABLE, ISOLATION RENDERED. HEAD OF BED ELEVATED FOR ASPIRATIONS PRECAUTIONS REMAINS COMFORTABLE AT THIS TIME WILL CONTINUE TO MONITOR AND ENDORSE TO NEXT SHIFT.
[2019-09-19 07:20] LABS: BASOPHILS # (AUTO) 0.1 /CMM (0.0-0.2); BASOPHILS % (AUTO) 0.5 % (0.0-2.0); EOSINOPHILS % (AUTO) 14.6 % (0.0-6.0); HEMATOCRIT 25 % (39-51); HEMOGLOBIN 7.8 g/dL (13.5-17.5); LYMPHOCYTES # (AUTO) 2.5 /CMM (0.8-4.8); LYMPHOCYTES % (AUTO) 14.8 % (20.0-44.0); MEAN CORPUSCULAR HGB CONC 32 g/dl (31.0-36.0); MEAN CORPUSCULAR VOLUME 96 fL (80-96); MONOCYTES # (AUTO) 1.7 /CMM (0.1-1.30); MONOCYTES % (AUTO) 10.1 % (2.0-12.0); NEUTROPHILS # (AUTO) 10.3 /CMM (1.8-8.9); PLATELET COUNT (AUTO) 340 /CMM (150-450); RED BLOOD CELL COUNT(AUTO) 2.58 MIL/uL (4.5-6.0); WHITE BLOOD COUNT (AUTO) 17.1 K/uL (4.3-11.0)
--- NOTE | 2019-09-19 07:30 | NUR ---
MEDIA CONSULTANT OPENING NOTES RECEIVED PT ASLEEP IN BED, PT ALERT, OPEN EYES, EASILY AROUSED, NO ACUTE CHANGE OF CONDITION OR GRIMACING NOTED. VENT DEPENDENT WITH RATES SET PRESCRIBED, SATURATING @ 99%, RESPIRATIONS EVEN AND NON LABORED. NO SOB NOTED . ON TELE MONITORING, SINUS TACHY, HR 100. GT FEEDING ON GOING @ 40CC/HR, WITH 25ML GASTRIC RESIDUAL NOTED. PICC LINE FLUSHED, PATENT WITH NO S/S OF INFECTION. RECTAL TUBE IN PLACED, NOTED WITH BROWN LIQUID FECAL OUTPUT. WOUND DRESSINGS INTACT AND CLEAN.
[2019-09-19 07:48] LABS: CALCIUM, SERUM 8.8 mg/dL (8.5-10.1); CREATININE 3.1 mg/dL (0.6-1.3); PHOSPHORUS 3.1 mg/dL (2.5-4.9); POTASSIUM 4.1 mmol/L (3.5-5.1)
[2019-09-19] MEDS: LACTOBACILLUS RHAMNOSUS GG 1 EACH CAP.SPRINK GT SCH ×2 (08:54→17:11)
[2019-09-19] MEDS: ASPIRIN 81 MG TAB.CHEW GT SCH (08:54)
[2019-09-19] MEDS: PROSOURCE / PROSTAT (PYXIS) 30 ML UDC GT SCH ×2 (09:07→17:11)
[2019-09-19] MEDS: NYSTATIN TOP POWDER 15 GM BOTTLE TP SCH ×2 (09:14→17:23)
[2019-09-19] MEDS: HYDROGEL DRESSING 90 GM TUBE TP SCH ×3 (09:14→18:41)
[2019-09-19] MEDS: AMMONIUM LACTATE 227 GM BOTTLE TP SCH ×2 (09:15→21:44)
[2019-09-19] MEDS: TRIAMCINOLONE ACETONIDE 0.1% CR 15 GM TUBE TP SCH ×2 (09:15→21:44)
[2019-09-19] MEDS: Z GUARD REMEDY 4 OZ OINT TP SCH ×2 (09:16→21:44)
--- NOTE | 2019-09-19 18:00 | NUR ---
RN CLOSING NOTES PT HAD DIALYSIS, TOLERATED THE PROCEDURE AND REMOVED 1L. NOTIFIED BY CHARGE NURSE THAT PT IS OK TO BE TRANSFER PER PRIMARY MD AND ID BACK TO SUBACUTE UNIT BUT NEEDS TO BE CLEARED BY THE LOCK TENDER CHIEF OPERATOR AND CIRCULATION CREW LEADER. PM NURSE MADE AWARE TO AND ENDORSED TO FOLLOW UP CLEARANCE BY AM NURSE. NO ACUTE DISTRESS NOTED DURING AM SHIFT. ALL NEEDS MET. PATIENT ENDORSED TO PM NURSE TO CONTINUE CARE. CALL LIGHT WITHIN REACHED, SAFETY MAINTAINED.
--- NOTE | 2019-09-19 18:31 | NUR ---
RT NOTE PT REMAINS MECHANICALLY VENTILATED VIA CUFFED TRACHEOSTOMY TUBE. CUFF INFLATED. TRACH TUBE MIDLINE AND SECURE. VENTILATOR SETTINGS PRESCRIBED. ALARMS SET PER PROTOCOL AND AUDIBLE. VENT PLUGGED IN TO RED OUTLET. AMBU BAG AT BED SIDE. NO DISTRESS NOTED. Addendum: 09/19/19 at 1832 by HILLARY SANTACRUZ RT Amended: Links added.
--- NOTE | 2019-09-19 19:35 | NUR ---
RED CROSS EXECUTIVE DIRECTOR OPENING NOTE RECEIVED PATIENT NON VERBAL OBTUNDED AND SPORADICALLY OPENING EYES. PATIENT IS ON VENT AND TOLERATING WELL. PATIENT IS ON GTUBE FEEDINGS TOLERATION WELL AT 40CC/HR WIT 10CC OF RESIDUAL. PATIENT HAS A GENO PICC LINE S/L PATENT AND FLUSHING. FLEXI SEAL INTACT NO LEAKAGE. ON THE MONITOR SHOWING SINUS TACHY WITH HR IN THE 110"S. ALL SAFETY PRECAUTIONS APPLIED. VENT PLUGGED IN RED OUTLET. WILL CONTINUE TO MONITOR PATIENT/
[2019-09-19] MEDS: COLISTIMETHATE SODIUM 100 MG in IV NS 0.9% 50 ML IV SCH (20:05)
[2019-09-19] MEDS: IV NS 0.9% 250 ML IV PRN (20:13)
--- NOTE | 2019-09-19 20:20 | NUR ---
RT NOTES PT RECEIVED TRACHED ON [facility] VENT ON CHARTED SETTINGS. NO SIGNS OF RESP DISTRESS/SOB NOTED. AIRWAY PATENT AND SECURED. TRAM OPERATOR DONE. PT SUCTIONED. ALARMS SET AND AUDIBLE. AMBUBAG AND BACK UP TRACH PRESENT. VENT CONNECTED TO RED OUTLET. WILL CONT TO MONITOR. Addendum: 09/20/19 at 0103 by CARLOS YEH RT Amended: Links added.
[2019-09-19] MEDS: ATORVASTATIN 40 MG TABLET PO SCH (22:08)
[2019-09-19] MEDS: INSULIN GLARGINE, 100 UNIT/ML CARTRIDGE SQ SCH (22:18)
[2019-09-20] VITALS (8 sets, daily range): BP systolic 90–125; BP diastolic 26–71
[2019-09-20] MEDS: BLOOD SUGAR DIAGNOSTIC 1 EACH STRIP IN SCH ×6 (01:09→20:57)
[2019-09-20] MEDS: INSULIN REGULAR, HUMAN 100 UNIT/ML 3 ML VIAL SQ PRN ×3 (01:10→21:04)
--- NOTE | 2019-09-20 02:58 | NUR ---
RN NOTE PATIENT IN BED NO DISTRESS. TOLERATING VENT AND GTUBE FEEDINGS. ENDORSED PATIENT TO RN FOR MARKELL
[2019-09-20] MEDS: METOCLOPRAMIDE HCL 10 MG/2 ML VIAL IV SCH ×3 (03:51→17:18)
[2019-09-20 06:43] LABS: BASOPHILS # (AUTO) 0.1 /CMM (0.0-0.2); BASOPHILS % (AUTO) 0.4 % (0.0-2.0); EOSINOPHILS % (AUTO) 13.1 % (0.0-6.0); HEMATOCRIT 24 % (39-51); HEMOGLOBIN 7.5 g/dL (13.5-17.5); LYMPHOCYTES # (AUTO) 2.3 /CMM (0.8-4.8); LYMPHOCYTES % (AUTO) 12.2 % (20.0-44.0); MEAN CORPUSCULAR HGB CONC 32 g/dl (31.0-36.0); MEAN CORPUSCULAR VOLUME 96 fL (80-96); MONOCYTES # (AUTO) 2.1 /CMM (0.1-1.30); MONOCYTES % (AUTO) 11.3 % (2.0-12.0); NEUTROPHILS # (AUTO) 11.7 /CMM (1.8-8.9); PLATELET COUNT (AUTO) 305 /CMM (150-450); RED BLOOD CELL COUNT(AUTO) 2.46 MIL/uL (4.5-6.0); WHITE BLOOD COUNT (AUTO) 18.6 K/uL (4.3-11.0)
[2019-09-20 06:58] LABS: CALCIUM, SERUM 8.7 mg/dL (8.5-10.1); CREATININE 2.5 mg/dL (0.6-1.3); MAGNESIUM 1.9 mg/dL (1.8-2.4); PHOSPHORUS 2.3 mg/dL (2.5-4.9); POTASSIUM 3.9 mmol/L (3.5-5.1)
[2019-09-20] MEDS: Z GUARD REMEDY 4 OZ OINT TP SCH ×2 (08:57→20:48)
[2019-09-20] MEDS: LACTOBACILLUS RHAMNOSUS GG 1 EACH CAP.SPRINK GT SCH ×2 (08:58→17:17)
[2019-09-20] MEDS: PROSOURCE / PROSTAT (PYXIS) 30 ML UDC GT SCH ×2 (08:58→17:22)
[2019-09-20] MEDS: ASPIRIN 81 MG TAB.CHEW GT SCH (08:58)
[2019-09-20] MEDS: AMMONIUM LACTATE 227 GM BOTTLE TP SCH ×2 (09:00→20:51)
[2019-09-20] MEDS: NYSTATIN TOP POWDER 15 GM BOTTLE TP SCH ×2 (09:00→17:23)
[2019-09-20] MEDS: HYDROGEL DRESSING 90 GM TUBE TP SCH ×3 (09:00→17:22)
[2019-09-20] MEDS: TRIAMCINOLONE ACETONIDE 0.1% CR 15 GM TUBE TP SCH ×2 (09:04→20:48)
--- NOTE | 2019-09-20 11:34 | NUR ---
RT NOTE: PATIENT RECEIVED TRACHED ON MECHANICAL VENT. ALARMS VERIFIED AND AUDIBLE. SUCTIONED AND LAVAGED SMALL- MODERATE AMOUNT OF THICK DWYER SECRETIONS. VENT PLUGGED INTO RED OUTLET. AMBU BAG AT [facility].
[2019-09-20] MEDS: LORAZEPAM INJ 2 MG/ML VIAL IV PRN (11:45)
[2019-09-20] MEDS ORDERED: COLI150V12 IV (14:16)
--- NOTE | 2019-09-20 18:50 | NUR ---
RN CLOSING NOTES PATIENT OBTUNDED OPENS EYES. REMAINS SINUS TACHY THROUGH OUT SHIFT. AWARE. FLEXISEAL REPLACED WAS LEAKING. OUTPUT AT END OF SHIFT 100ML. ONLY 20ML RESIDUAL VIA GTUBE. WOUND TREATMENT PROVIDED BY RN, CREAM APPLIED TO DRY SKIN AND WOUNDS. IV PICCLINE PATENT AND RUNNING TKO AT 2ML. LFT FEMORAL HD CATH PRESENT. SCROTAL EDEMA PRESENT, ELEVATED TO RELEIVE EDEMA. RN SPOKE TO FAMILY TODAY MADE AWARE OF CONDITION. NO D/C AT THIS TIME, NO AVAILABLITLY IN SUBACUTE. D/C PAPERWORK DONE BY RN TODAY
--- NOTE | 2019-09-20 19:25 | NUR ---
STEEL WHEEL ENGRAVER OPENING NOTES RECEIVED PATIENT RESTING IN BED, OBTUNDED, ABLE TO OPEN EYES. ON TELE MONITOR SR WITH HR 80'S. ON MECHANICAL VENT TRACH SETTINGS ORDERED, TOLERATING WELL, SATURATING 100% AT THE MOMENT. NO SOB OR RESPIRATORY DISTRESS NOTED. IV SITES GENO PICC, FLUSHING AND PATENT. LEFT FEM HD CATH NOTED, INTACT. ON GT FEEDING AT 40 ML/HR, FLUSHING AND PATENT, MINIMAL RESIDUAL NOTED. FLEXISEAL IN PLACE, DRAINING LIQUID BROWN STOOL NOTED. SAFETY MEASURES IN PLACE; BED LOCKED AND IN LOWEST POSITION, CALL LIGHT WITHIN REACH, SIDE RAILS UP X2, HOB ELEVATED. WILL CONTINUE TO MONITOR PT CLOSELY.
[2019-09-20] MEDS: COLISTIMETHATE SODIUM 100 MG in IV NS 0.9% 50 ML IV SCH (20:44)
[2019-09-20] MEDS: INSULIN GLARGINE, 100 UNIT/ML CARTRIDGE SQ SCH (21:05)
[2019-09-20] MEDS: ATORVASTATIN 40 MG TABLET PO SCH (21:06)
[2019-09-21] VITALS: BP 102/29
[2019-09-21] MEDS: BLOOD SUGAR DIAGNOSTIC 1 EACH STRIP IN SCH ×6 (01:27→20:37)
[2019-09-21] MEDS: INSULIN REGULAR, HUMAN 100 UNIT/ML 3 ML VIAL SQ PRN ×6 (01:30→20:39)
[2019-09-21] MEDS: METOCLOPRAMIDE HCL 10 MG/2 ML VIAL IV SCH ×3 (03:17→18:05)
[2019-09-21 04:00] VITALS: BP 117/35
[2019-09-21] MEDS: VITAL AF 1.2 1,000 ML BOTTLE GT PRN (05:14)
--- NOTE | 2019-09-21 06:59 | NUR ---
INSTALLATION TECHNICIAN CLOSING NOTES PATIENT SLEEPING IN BED, BUT EASY TO AROUSE; PT OBTUNDED, ABLE TO OPEN EYES. ON TELE MONITOR SR WITH HR 90'S. ON MECHANICAL VENT TRACH SETTINGS ORDERED, TOLERATING WELL, SATURATING 100% AT THE MOMENT. NO SOB OR RESPIRATORY DISTRESS NOTED. IV SITES GENO PICC, FLUSHING AND PATENT. LEFT FEM HD CATH NOTED, INTACT. ON GT FEEDING AT 40 ML/HR, FLUSHING AND PATENT, MINIMAL RESIDUAL NOTED. FLEXISEAL IN PLACE, DRAINING LIQUID BROWN STOOL NOTED. SAFETY MEASURES IN PLACE; BED LOCKED AND IN LOWEST POSITION, CALL LIGHT WITHIN REACH, SIDE RAILS UP X2, HOB ELEVATED. REPOSITIONED Q2H. ALL MD ORDERS ATTENDED. WOUND TX DONE ORDERED. WILL ENDORSE TO AM RN FOR MARKELL.
[2019-09-21 08:00] VITALS: BP 100/23
--- NOTE | 2019-09-21 08:00 | NUR ---
TELE1/RN AM SHIFT INITIAL NOTES RECEIVED PT AWAKE IN BED, PT OBTUNDED, OPEN EYES, NO GRIMACING OR ACUTE CHANGE OF CONDITION NOTED. VENTILATOR DEPENDENT, RATES SET PRESCRIBED, SATURATING @ 100%, RESPIRATIONS EVEN AND UNLABORED, LUNG SOUNDS CLEAR, SUCTIONED FOR AIRWAY CLEARANCE. ON TELE WITH SINUS TACHY, HR 101. PICC LINE WITH ON GOING IV INFUSION TKO, IV SITE PATENT WITH NO S/S OF INFECTION. G-TUBE FEEDING ON GOING @ 40CC/HR, NO GASTRIC RESIDUAL NOTED. RECTAL TUBE INTACT WITH BROWN LIQUID FECAL OUTPUT. PT IS COMFORTABLE, SCHEDULED AM MEDS TO BE GIVEN. CL WITHIN REACHED, SAFETY MAINTAINED AND ISOLATION OBSERVED. ON GOING MONITORING.
[2019-09-21] MEDS: ASPIRIN 81 MG TAB.CHEW GT SCH (09:25)
[2019-09-21] MEDS: PROSOURCE / PROSTAT (PYXIS) 30 ML UDC GT SCH ×2 (09:25→16:48)
[2019-09-21] MEDS: LACTOBACILLUS RHAMNOSUS GG 1 EACH CAP.SPRINK GT SCH ×2 (09:25→16:49)
[2019-09-21] MEDS: AMMONIUM LACTATE 227 GM BOTTLE TP SCH ×2 (09:32→21:08)
[2019-09-21] MEDS: NYSTATIN TOP POWDER 15 GM BOTTLE TP SCH ×2 (09:32→16:49)
[2019-09-21] MEDS: Z GUARD REMEDY 4 OZ OINT TP SCH ×2 (09:33→21:08)
[2019-09-21] MEDS: HYDROGEL DRESSING 90 GM TUBE TP SCH ×4 (09:33→21:09)
[2019-09-21] MEDS: TRIAMCINOLONE ACETONIDE 0.1% CR 15 GM TUBE TP SCH ×2 (09:34→21:11)
[2019-09-21 12:00] VITALS: BP 96/37
[2019-09-21 16:00] VITALS: BP 101/59
--- NOTE | 2019-09-21 16:27 | NUR ---
TELE1/RN AFTERNOON ROUNDS PM CARE PROVIDED. NO CHANGE OF CONDITION. PT HAD DIALYSIS TX, TOLERATED PROCEDURE, REMOVED 1 LITER. ON GOING MONITORING.
[2019-09-21] MEDS ORDERED: HYDROGEL DRESSING 90 GM TUBE TP SCH (17:00)
[2019-09-21] MEDS: COLISTIMETHATE SODIUM 100 MG in IV NS 0.9% 50 ML IV SCH (19:17)
--- NOTE | 2019-09-21 19:21 | NUR ---
TELE1/RN AM SHIFT CLOSING NOTES NO ACUTE CHANGE OF CONDITION NOTED DURING THE SHIFT. ALL NEEDS MET. PT ENDORSED TO PM NURSE TO CONTINUE CARE. CL WITHIN REACHED, SAFETY MAINTAINED AND ISOLATION OBSERVED.
--- NOTE | 2019-09-21 19:36 | NUR ---
BIOINFORMATICS SCIENTIST NOTE PATIENT RECEIVED IN BED OBTUNDED, OPENS EYES TO PAIN. PATIENT APPEARS IN NO APPARENT DISTRESS AT THIS TIME. PATIENT ST ON THE MONITOR. PATIENT TOLERATING CURRENT VENT SETTINGS. NO RESP DISTRESS NOTED. PATIENT BREATHING EVEN AND UNLABORED. PATIENT PICC LINE PATENT AND INTACT NO S/S OF INFECTION OR INFILTRATION. PATIENT HAS GTUBE RUNNING AT 40 ML AN HOUR. NO RESIDUAL NOTED. FLEXI SEAL DRAINING LIGHT BROWN LIQUID STOOLS. RN WILL CONTINUE TO MONITOR. PATIENT REPOSITIONED AND ORAL CARE GIVEN. RN WILL CONTINUE TO MONITOR FOR CHANGES. SAFETY/ ASPIRATION PRECAUTIONS IN PLACE.
[2019-09-21 20:00] VITALS: BP 91/48
[2019-09-21] MEDS: ATORVASTATIN 40 MG TABLET PO SCH (22:21)
[2019-09-21] MEDS: INSULIN GLARGINE, 100 UNIT/ML CARTRIDGE SQ SCH (22:21)
[2019-09-22] VITALS (11 sets, daily range): BP systolic 91–122; BP diastolic 18–42
--- NOTE | 2019-09-22 00:30 | NUR ---
HYDRAULIC CHAIR ASSEMBLER NOTE PATIENT SPIKED FEVER TYLENOL AND COOLING MEASURES GIVEN
--- NOTE | 2019-09-22 01:58 | NUR ---
REGISTRATION OFFICER NOTE HOLDING INSULIN COVERAGE, D/T HOLDING TUBE FEEDING BECAUSE OF VOMITTING
[2019-09-22] MEDS: BLOOD SUGAR DIAGNOSTIC 1 EACH STRIP IN SCH ×6 (01:59→21:00)
[2019-09-22] MEDS: METOCLOPRAMIDE HCL 10 MG/2 ML VIAL IV SCH ×3 (02:02→18:11)
[2019-09-22] MEDS: INSULIN REGULAR, HUMAN 100 UNIT/ML 3 ML VIAL SQ PRN ×3 (02:02→13:20)
[2019-09-22] MEDS: ACETAMINOPHEN 650 MG/20.3 ML UDC NG PRN (02:09)
--- NOTE | 2019-09-22 02:48 | NUR ---
DRIER AND GRINDER TENDER NOTE PATIENT NOTED TO THROW UP YELLOW/ STRAW EMESIS OUT OF THE PATIENT' NOESE. MD MUNROE PAGED
--- NOTE | 2019-09-22 02:56 | NUR ---
OCEAN FORWARDER NOTE PER MD ORDER, HOLD TUBE FEEDING, DRAW 2 SETS OF BLOOD CULTURES AND XRAY IN THE AM
[2019-09-22 06:22] LABS: BASOPHILS # (AUTO) 0.2 /CMM (0.0-0.2); BASOPHILS % (AUTO) 0.7 % (0.0-2.0); EOSINOPHILS % (AUTO) 16.7 % (0.0-6.0); HEMATOCRIT 21 % (39-51); LYMPHOCYTES # (AUTO) 2.4 /CMM (0.8-4.8); LYMPHOCYTES % (AUTO) 11.6 % (20.0-44.0); MEAN CORPUSCULAR HGB CONC 31 g/dl (31.0-36.0); MEAN CORPUSCULAR VOLUME 97 fL (80-96); MONOCYTES # (AUTO) 1.8 /CMM (0.1-1.30); MONOCYTES % (AUTO) 8.7 % (2.0-12.0); NEUTROPHILS # (AUTO) 12.6 /CMM (1.8-8.9); NEUTROPHILS % (AUTO) 62.3 % (43.0-81.0); PLATELET COUNT (AUTO) 252 /CMM (150-450); RED BLOOD CELL COUNT(AUTO) 2.15 MIL/uL (4.5-6.0); WHITE BLOOD COUNT (AUTO) 20.3 K/uL (4.3-11.0)
[2019-09-22 06:27] LABS: HEMOGLOBIN 6.6 g/dL (13.5-17.5)
--- NOTE | 2019-09-22 06:28 | NUR ---
DRAG OUT WORKER NOTE CRITICAL HGB REPORT TO RN 6.9, ENDORSED TO MORNING RN SINA FOR MARKELL.
[2019-09-22 07:00] LABS: CREATININE 2.8 mg/dL (0.6-1.3); POTASSIUM 4.2 mmol/L (3.5-5.1)
--- NOTE | 2019-09-22 07:20 | NUR ---
pattern changer and repairer notes received bedside report pt a/o x0 obtunded.trach and vent tolerating vent settings as order no s/s of respiratory distress or acute pain noted. sr/st on monitor . anuric last hd 09/21/19 with 1 liter out. flexiseal draining liquid stool. favian picc saline locked and left chest wall hd cath. pepr noc shift pt had low b/p throughout the night with hgb of 6.9 will notify md. safety and aspiration precautions in place bed in low locked position will cont to monitor accordingly
--- NOTE | 2019-09-22 08:09 | NUR ---
dr skylar randolph aware of lab results hgb 6.6 and elevated temp
[2019-09-22] MEDS: ASPIRIN 81 MG TAB.CHEW GT SCH (09:00)
[2019-09-22 09:08] LABS: EOSINOPHILS % (MANUAL) 14 % (0-4); LYMPHOCYTES % (MANUAL) 14 % (16-48); MONOCYTES % (MANUAL) 7 % (0-11.0); NEUTROPHILS % (MANUAL) 65 (42-76)
[2019-09-22] MEDS: LACTOBACILLUS RHAMNOSUS GG 1 EACH CAP.SPRINK GT SCH ×2 (09:33→17:38)
[2019-09-22] MEDS: PROSOURCE / PROSTAT (PYXIS) 30 ML UDC GT SCH ×2 (09:34→17:39)
[2019-09-22] MEDS: HYDROGEL DRESSING 90 GM TUBE TP SCH ×2 (09:34→22:28)
[2019-09-22] MEDS: AMMONIUM LACTATE 227 GM BOTTLE TP SCH ×2 (09:34→22:28)
[2019-09-22] MEDS: Z GUARD REMEDY 4 OZ OINT TP SCH ×2 (09:34→22:28)
[2019-09-22] MEDS: NYSTATIN TOP POWDER 15 GM BOTTLE TP SCH ×2 (09:34→17:39)
[2019-09-22] MEDS: TRIAMCINOLONE ACETONIDE 0.1% CR 15 GM TUBE TP SCH ×2 (09:34→22:28)
--- NOTE | 2019-09-22 19:54 | NUR ---
LOADING SHOVEL OILER NOTE BLOOD TRANSFUSION BEING INITIATED WITH HD PER MD ORDER.
--- NOTE | 2019-09-22 20:15 | NUR ---
PERFORMING ARTS TECHNICIANS NOTE PATIENT STILL ON DIALYSIS OR 1 MORE HOUR WILL GIVEN 2000 ABX POST HD.
--- NOTE | 2019-09-22 21:51 | NUR ---
NIPPLE MAKER NOTE PATIENT COMPLETED DIALYSIS WITH BP OF 111/37. BLOOD COMPLETELY TRANSFUSED PER MD ORDER. FEMORAL HD CATH REMOVED PER NEPHROLOGY ORDER. RN WILL MONITOR FOR S/S OF BLEEDING
[2019-09-22] MEDS: COLISTIMETHATE SODIUM 100 MG in IV NS 0.9% 50 ML IV SCH (22:27)
[2019-09-22] MEDS: INSULIN GLARGINE, 100 UNIT/ML CARTRIDGE SQ SCH (22:29)
[2019-09-22] MEDS: ATORVASTATIN 40 MG TABLET PO SCH (22:29)
[2019-09-23] VITALS: BP 130/33
[2019-09-23] MEDS: BLOOD SUGAR DIAGNOSTIC 1 EACH STRIP IN SCH ×6 (00:26→20:20)
[2019-09-23] MEDS: INSULIN REGULAR, HUMAN 100 UNIT/ML 3 ML VIAL SQ PRN ×6 (00:28→20:44)
[2019-09-23] MEDS: METOCLOPRAMIDE HCL 10 MG/2 ML VIAL IV SCH ×3 (03:41→19:45)
[2019-09-23 04:00] VITALS: BP 117/34
[2019-09-23 06:22] LABS: BASOPHILS # (AUTO) 0.1 /CMM (0.0-0.2); BASOPHILS % (AUTO) 0.6 % (0.0-2.0); EOSINOPHILS % (AUTO) 17.8 % (0.0-6.0); HEMATOCRIT 26 % (39-51); HEMOGLOBIN 8.3 g/dL (13.5-17.5); LYMPHOCYTES # (AUTO) 1.7 /CMM (0.8-4.8); LYMPHOCYTES % (AUTO) 9.1 % (20.0-44.0); MEAN CORPUSCULAR HGB CONC 32 g/dl (31.0-36.0); MEAN CORPUSCULAR VOLUME 95 fL (80-96); MONOCYTES % (AUTO) 5.3 % (2.0-12.0); NEUTROPHILS # (AUTO) 12.8 /CMM (1.8-8.9); NEUTROPHILS % (AUTO) 67.2 % (43.0-81.0); PLATELET COUNT (AUTO) 200 /CMM (150-450)
[2019-09-23 07:19] LABS: CREATININE 2.3 mg/dL (0.6-1.3); POTASSIUM 4.3 mmol/L (3.5-5.1)
--- NOTE | 2019-09-23 07:20 | NUR ---
TELE OPENING NOTES Received pt on bed, awake. Obtunded, open eyes, no facial grimacing noted. Ventilator dependent, rates set as prescribed, saturating well. Respiration even and nonlabored. On tele with ST. PICC line on GENO. Gtube feeding @40cc/hr with no residual noted. Rectal tube intact with brown liquid fecal output. Will continue to monitor.
[2019-09-23 08:00] VITALS: BP 111/29
[2019-09-23] MEDS: LACTOBACILLUS RHAMNOSUS GG 1 EACH CAP.SPRINK GT SCH ×2 (08:49→17:35)
[2019-09-23] MEDS: ASPIRIN 81 MG TAB.CHEW GT SCH (08:49)
[2019-09-23] MEDS: PROSOURCE / PROSTAT (PYXIS) 30 ML UDC GT SCH ×2 (08:51→17:35)
[2019-09-23] MEDS: NYSTATIN TOP POWDER 15 GM BOTTLE TP SCH ×2 (09:02→17:51)
[2019-09-23] MEDS: TRIAMCINOLONE ACETONIDE 0.1% CR 15 GM TUBE TP SCH ×2 (09:04→20:24)
[2019-09-23] MEDS: HYDROGEL DRESSING 90 GM TUBE TP SCH ×2 (09:04→20:22)
[2019-09-23] MEDS: AMMONIUM LACTATE 227 GM BOTTLE TP SCH ×2 (09:04→20:26)
[2019-09-23] MEDS: Z GUARD REMEDY 4 OZ OINT TP SCH ×2 (09:04→20:21)
[2019-09-23 12:00] VITALS: BP 111/28
[2019-09-23 16:00] VITALS: BP 100/63
--- NOTE | 2019-09-23 16:48 | NUR ---
RT NOTE: RECEIVED TRACH PT ON ORDERED NOTED VENT SETTINGS. NO RESPIRATORY DISTRESS NOTED. TRACH CHECKED SECURE AND PATENT. SXD AND LAVAGE Q ROUND AND NEEDED. TRACH CARE DONE. SPARE TRACH AND AMBU BAG @ BEDSIDE. ALARMS CHECKED ON AND AUDIBLE. WILL CONTINUE TO MONITOR.
--- NOTE | 2019-09-23 19:09 | NUR ---
E COMMERCE PROJECT MANAGER CLOSING NOTES No acute change of condition noted during AM shift. Will be NPO after midnight for Tunnelled Dialysis Catheter Replacement tomorr 09/24/2019. All consents signed. All needs met. Pt endorsed to pm nurse to continue care. Safety maintained and isolation observed.
--- NOTE | 2019-09-23 19:10 | NUR ---
HIDE SALTER NOTE RECEIVED PT IN STABLE CONDITION, NOTED ON VENT, TOLERATING SETTINGS WELL. TELE MONITOR: SINUS TACH 111. GTUBE IN PLACE WITH FEEDING INFUSING, MINIMAL RESIDUAL. ALL CURRENT NEEDS ATTENDED TO. BED LOW, LOCKED, UPPER RAILS UP, ISOLATION PRECAUTIONS IN PLACE. WILL CONT. TO MONITOR. PT TO BE NPO AT 0000 FOR PROCEDURE IN AM.
[2019-09-23] MEDS: COLISTIMETHATE SODIUM 100 MG in IV NS 0.9% 50 ML IV SCH (19:45)
[2019-09-23 20:00] VITALS: BP 142/40
--- NOTE | 2019-09-23 20:10 | NUR ---
RT NOTE PT RECEIVED TRACHED ON MECHANICAL VENTILATION. AMBU BAG/BACK UP TRACH @ BEDSIDE. VENT PLUGGED TO RED OUTLET. ALARMS ON AND AUDIBLE. CONT. PULSE OX CONNECTED. SX DONE, TRACH SECURED AND PATENT. NO SOB NOTED AT THIS TIME. WILL MONITOR T/O SHIFT. Addendum: 09/24/19 at 0028 by MARCIA YOUNG RT Amended: Links added.
[2019-09-23] MEDS: VITAL AF 1.2 1,000 ML BOTTLE GT PRN (20:20)
[2019-09-23] MEDS: ATORVASTATIN 40 MG TABLET PO SCH (21:09)
[2019-09-23] MEDS: INSULIN GLARGINE, 100 UNIT/ML CARTRIDGE SQ SCH (21:09)
[2019-09-24] VITALS: BP 103/34
--- NOTE | 2019-09-24 00:44 | NUR ---
CARPET WINDER NOTE PT NOTED WITH BLOOD SUGAR OF 177, NO INSULIN GIVEN D/T PT BEING NPO FOR AM PROCEDURE.
[2019-09-24] MEDS: BLOOD SUGAR DIAGNOSTIC 1 EACH STRIP IN SCH ×6 (01:23→21:19)
[2019-09-24] MEDS: METOCLOPRAMIDE HCL 10 MG/2 ML VIAL IV SCH ×3 (03:20→18:16)
[2019-09-24 04:00] VITALS: BP 124/32
--- NOTE | 2019-09-24 04:11 | NUR ---
INSTRUMENT TECHNICIAN HELPER NOTE PT NOTED WITH BLOOD SUGAR OF 157, NO COVERAGE GIVEN D/T NPO STATUS.
--- NOTE | 2019-09-24 06:18 | NUR ---
RN OUTPATIENT SURGERY NOTE PT REMAINS IN STABLE CONDITION, NOTED ON VENT, TOLERATING SETTINGS WELL. TELE MONITOR: SR 93 W/ INVERTED T WAVE. GENO PICC LINE IN PLACE S/L, RECTAL TUBE IN PLACE, WOUND TX DONE. ALL CURRENT NEEDS ATTENDED TO. BED LOW, LOCKED, UPPER RAILS UP, ISOLATION PRECAUTIONS IN PLACE, PT REPOSITIONED PER PROTOCOL. WILL CONT. TO MONITOR. PT REMAINS NPO FOR AM PROCEDURE. WILL ENDORSE TO NEXT SHIFT FOR MARKELL.
--- NOTE | 2019-09-24 07:20 | NUR ---
PURIFICATION DIRECTOR OPENING NOTE RECEIVED PATIENT IN BED. NOTED ON VENT, TOLERATING SETTINGS WELL. OBTUNDED AND OPENS EYES, RESPONDS TO TACTILE AND AUDITORY STIMULI. TELE MONITOR: SR 89. GENO PICC LINE IN PLACE S/L, RECTAL TUBE IN PLACE, GTUBE IN PLACE. PATIENT IS NPO FOR PROCEDURES SCHEDULED TODAYU. ALL CURRENT NEEDS ATTENDED AND ANTICIPATED. BED LOW, LOCKED AND AT SEMI-HERRERA'S POSITION. UPPER RAILS UP, ISOLATION PRECAUTIONS IN PLACE. WILL CONT. TO MONITOR. WILL CONTINUE TO MONITOR.
[2019-09-24 08:00] VITALS: BP 117/57
[2019-09-24] MEDS: LACTOBACILLUS RHAMNOSUS GG 1 EACH CAP.SPRINK GT SCH ×2 (09:00→17:53)
[2019-09-24] MEDS: ASPIRIN 81 MG TAB.CHEW GT SCH (09:00)
[2019-09-24] MEDS: PROSOURCE / PROSTAT (PYXIS) 30 ML UDC GT SCH ×2 (09:00→17:54)
[2019-09-24] MEDS ORDERED: LIDOCAINE 1% INJ 50 ML MDV IJ ONE (09:42)
[2019-09-24 09:50] LABS: BASOPHILS # (AUTO) 0.1 /CMM (0.0-0.2); BASOPHILS % (AUTO) 0.6 % (0.0-2.0); EOSINOPHILS % (AUTO) 23.3 % (0.0-6.0); HEMATOCRIT 26 % (39-51); HEMOGLOBIN 8.2 g/dL (13.5-17.5); LYMPHOCYTES # (AUTO) 2.4 /CMM (0.8-4.8); MEAN CORPUSCULAR HGB CONC 32 g/dl (31.0-36.0); MEAN CORPUSCULAR VOLUME 98 fL (80-96); MONOCYTES # (AUTO) 1.3 /CMM (0.1-1.30); MONOCYTES % (AUTO) 7.1 % (2.0-12.0); NEUTROPHILS # (AUTO) 10.4 /CMM (1.8-8.9); PLATELET COUNT (AUTO) 183 /CMM (150-450); RED BLOOD CELL COUNT(AUTO) 2.65 MIL/uL (4.5-6.0); WHITE BLOOD COUNT (AUTO) 18.5 K/uL (4.3-11.0)
[2019-09-24 09:53] LABS: CALCIUM, SERUM 9.2 mg/dL (8.5-10.1); CREATININE 2.8 mg/dL (0.6-1.3); POTASSIUM 4.6 mmol/L (3.5-5.1)
[2019-09-24] MEDS ORDERED: HEPARIN SODIUM, PORCINE 1,000 UNIT/ML VIAL ONE (10:25)
--- NOTE | 2019-09-24 11:00 | NUR ---
RN NOTE: REGLAN NOT ADMINISTERED DUE TO PATIENT BEING IN A PROCEDURE.
[2019-09-24 11:53] LABS: EOSINOPHILS % (MANUAL) 22 % (0-4); LYMPHOCYTES % (MANUAL) 8 % (16-48); MONOCYTES % (MANUAL) 7 % (0-11.0); NEUTROPHILS % (MANUAL) 63 (42-76)
[2019-09-24 12:00] VITALS: BP 107/45
[2019-09-24] MEDS ORDERED: IOHEXOL 240MG/ML 50 ML IV ONE (12:31)
[2019-09-24] MEDS ORDERED: MIDAZOLAM HCL 2 MG/2ML VIAL ONE (12:46)
[2019-09-24] MEDS: TRIAMCINOLONE ACETONIDE 0.1% CR 15 GM TUBE TP SCH ×2 (15:50→21:38)
[2019-09-24] MEDS: AMMONIUM LACTATE 227 GM BOTTLE TP SCH ×2 (15:51→21:39)
[2019-09-24] MEDS: HYDROGEL DRESSING 90 GM TUBE TP SCH ×2 (15:51→21:39)
[2019-09-24] MEDS: NYSTATIN TOP POWDER 15 GM BOTTLE TP SCH ×2 (15:51→18:16)
[2019-09-24] MEDS: Z GUARD REMEDY 4 OZ OINT TP SCH ×2 (15:52→21:40)
[2019-09-24 16:00] VITALS: BP 105/43
--- NOTE | 2019-09-24 17:00 | NUR ---
DIESEL TRAILER MECHANIC NOTE: PREVIOUS ORDERS RESUMED BY BUFFY ELLISON. DIET CHANGED FROM NPO TO GTUBE FEEDING.
--- NOTE | 2019-09-24 19:20 | NUR ---
LOAD HAUL DUMP OPERATOR CLOSING NOTE PATIENT IN BED AND ON MECHANICAL VENTILATION, TOLERATING SETTINGS WELL. OBTUNDED AND OPENS EYES, RESPONDS TO TACTILE AND AUDITORY STIMULI. TELE MONITOR: ST 102. GENO PICC LINE IN PLACE S/L, RECTAL TUBE IN PLACE, GTUBE IN PLACE. S/P HD CATHETER PLACEMENT ON RIGHT CHEST WALL. SITES CLEAN, DRY AND INTACT. GTUBE FEEDING OF VITAL 1.2 RESUMED AND RUNNING AT 20MLS/HR WITH GOAL OF 40MLS/HR. FAMILY AWARE OF PATIENT'S TOLERANCE TO PREVIOUS PROCEDURE. ALL CURRENT NEEDS ATTENDED AND ANTICIPATED. BED LOW, LOCKED AND AT SEMI-HERRERA'S POSITION. UPPER RAILS UP, ISOLATION PRECAUTIONS IN PLACE. WILL CONT. TO MONITOR. ENDORSED TO ONCOMING SHIFT FOR MARKELL.
[2019-09-24] MEDS: COLISTIMETHATE SODIUM 100 MG in IV NS 0.9% 50 ML IV SCH (19:56)
[2019-09-24 20:00] VITALS: BP 99/44
[2019-09-24] MEDS: IV NS 0.9% 250 ML IV PRN (20:23)
[2019-09-24] MEDS: ATORVASTATIN 40 MG TABLET PO SCH (21:19)
[2019-09-24] MEDS: INSULIN GLARGINE, 100 UNIT/ML CARTRIDGE SQ SCH (21:22)
[2019-09-24] MEDS: INSULIN REGULAR, HUMAN 100 UNIT/ML 3 ML VIAL SQ PRN (21:23)
[2019-09-24] MEDS: ANCEF 1 GM/50 ML D5W IV SCH ×2 (21:32)
[2019-09-24] MEDS: VITAL AF 1.2 1,000 ML BOTTLE GT PRN (21:36)
[2019-09-25] VITALS: BP 99/42
[2019-09-25] MEDS: BLOOD SUGAR DIAGNOSTIC 1 EACH STRIP IN SCH ×6 (00:42→22:06)
[2019-09-25] MEDS: INSULIN REGULAR, HUMAN 100 UNIT/ML 3 ML VIAL SQ PRN ×4 (00:45→13:11)
[2019-09-25] MEDS: METOCLOPRAMIDE HCL 10 MG/2 ML VIAL IV SCH ×3 (02:48→18:35)
[2019-09-25 04:00] VITALS: BP 102/51
[2019-09-25] MEDS: ANCEF 1 GM/50 ML D5W IV SCH ×4 (05:20→12:58)
[2019-09-25 07:23] LABS: BASOPHILS # (AUTO) 0.1 /CMM (0.0-0.2); BASOPHILS % (AUTO) 0.5 % (0.0-2.0); HEMATOCRIT 26 % (39-51); HEMOGLOBIN 8.3 g/dL (13.5-17.5); LYMPHOCYTES # (AUTO) 2.1 /CMM (0.8-4.8); LYMPHOCYTES % (AUTO) 12.2 % (20.0-44.0); MEAN CORPUSCULAR HGB CONC 32 g/dl (31.0-36.0); MEAN CORPUSCULAR VOLUME 98 fL (80-96); MONOCYTES # (AUTO) 1.1 /CMM (0.1-1.30); MONOCYTES % (AUTO) 6.1 % (2.0-12.0); NEUTROPHILS # (AUTO) 9.5 /CMM (1.8-8.9); NEUTROPHILS % (AUTO) 54.6 % (43.0-81.0); PLATELET COUNT (AUTO) 194 /CMM (150-450); RED BLOOD CELL COUNT(AUTO) 2.67 MIL/uL (4.5-6.0); WHITE BLOOD COUNT (AUTO) 17.4 K/uL (4.3-11.0)
[2019-09-25 07:31] LABS: CALCIUM, SERUM 9.1 mg/dL (8.5-10.1); CREATININE 3.2 mg/dL (0.6-1.3); MAGNESIUM 1.9 mg/dL (1.8-2.4); PHOSPHORUS 3.1 mg/dL (2.5-4.9); POTASSIUM 4.5 mmol/L (3.5-5.1)
[2019-09-25 07:33] LABS: EOSINOPHILS % (AUTO) 26.6 % (0.0-6.0)
[2019-09-25 08:00] VITALS: BP 105/56
[2019-09-25] MEDS: PROSOURCE / PROSTAT (PYXIS) 30 ML UDC GT SCH ×2 (08:45→18:35)
[2019-09-25] MEDS: LACTOBACILLUS RHAMNOSUS GG 1 EACH CAP.SPRINK GT SCH ×2 (08:45→18:35)
[2019-09-25] MEDS: ASPIRIN 81 MG TAB.CHEW GT SCH (08:46)
[2019-09-25 08:50] LABS: EOSINOPHILS % (MANUAL) 31 % (0-4); LYMPHOCYTES % (MANUAL) 9 % (16-48); MONOCYTES % (MANUAL) 3 % (0-11.0); NEUTROPHILS % (MANUAL) 57 (42-76)
[2019-09-25] MEDS: HYDROGEL DRESSING 90 GM TUBE TP SCH ×2 (09:00→22:00)
[2019-09-25] MEDS: NYSTATIN TOP POWDER 15 GM BOTTLE TP SCH ×2 (09:00→17:00)
[2019-09-25] MEDS: Z GUARD REMEDY 4 OZ OINT TP SCH ×2 (09:00→22:01)
[2019-09-25] MEDS: TRIAMCINOLONE ACETONIDE 0.1% CR 15 GM TUBE TP SCH ×2 (09:00→22:00)
[2019-09-25] MEDS: AMMONIUM LACTATE 227 GM BOTTLE TP SCH ×2 (09:00→22:00)
[2019-09-25 12:00] VITALS: BP 110/60
[2019-09-25 16:00] VITALS: BP 99/58
[2019-09-25] MEDS: ALBUMIN 25% 25 GM in PREMIX 1 EA IV PRN (18:36)
--- NOTE | 2019-09-25 19:04 | NUR ---
RESTAURANT RECRUITER CLOSING Patient was afebrile throughout shift. HR 90s-100. 300mL yellow/tanish residual noted @1800. GTF held. Reglan administered as ordered. 700mL from flexiseal noted. Daughter called today. Patient being dialyzed right now (given albumin). no acute distress noted
--- NOTE | 2019-09-25 19:37 | NUR ---
PT RECEIVED TRACHED ON [facility] VENT ON CHARTED SETTINGS. NO SIGNS OF RESP DISTRESS/SOB NOTED AT THIS TIME. AIRWAY PATENT AND SECURED. WALL WASHER DONE. PT SUCTIONED. AMBUBAG AND SPARE TRACH PRESENT. VENT CONNECTED TO RED OUTLET. WILL CONT TO MONITOR. Addendum: 09/25/19 at 7 by CARLOS YEH RT Amended: Links added.
[2019-09-25 20:00] VITALS: BP 102/16
[2019-09-25] MEDS: COLISTIMETHATE SODIUM 100 MG in IV NS 0.9% 50 ML IV SCH (22:05)
[2019-09-25] MEDS: ATORVASTATIN 40 MG TABLET PO SCH (22:06)
[2019-09-25] MEDS: INSULIN GLARGINE, 100 UNIT/ML CARTRIDGE SQ SCH (22:15)
--- NOTE | 2019-09-25 22:39 | NUR ---
REPORT TO ANTONI CASTAÑEDA FOR CONT OF CARE.
--- NOTE | 2019-09-25 22:40 | NUR ---
RN NOTES Received patient asleep, easily awaken to touch and pain. On vent with settings noted. No respiratory distress or discomfort noted at this time. GTF on hold for residual > 100ml. Kept on bed clean, dry and comfortable. On fall and aspiration precautions. Will continue to monitor closely.
[2019-09-26] VITALS: BP 95/49
[2019-09-26] MEDS: BLOOD SUGAR DIAGNOSTIC 1 EACH STRIP IN SCH ×6 (00:17→20:44)
[2019-09-26] MEDS: VITAL AF 1.2 1,000 ML BOTTLE GT PRN (00:17)
[2019-09-26] MEDS: INSULIN REGULAR, HUMAN 100 UNIT/ML 3 ML VIAL SQ PRN ×3 (00:19→20:43)
[2019-09-26] MEDS: METOCLOPRAMIDE HCL 10 MG/2 ML VIAL IV SCH ×3 (03:13→19:44)
[2019-09-26 04:00] VITALS: BP_SYST 106; BP_DIAS 37; BP_DIAS 47
--- NOTE | 2019-09-26 06:39 | NUR ---
RN CLOSING NOTES Patient asleep, easily awaken to tactile and pain stimuli. On vent with setting noted. Suctioned PRN, breathing treatment given by RT. No respiratory distress noted within the shift. On tele monitor with NSR noted. All nursing needs attended. Blood sugar checked as ordered, no coverage of Insulin required per sliding scale ordered. Afebrile the whole shift. On GTF, tolerated well. Kept on bed clean, dry and comfortable. Endorsed to the next shift.
--- NOTE | 2019-09-26 07:30 | NUR ---
ABRASIVE GRINDER NOTES RECEIVED PT IN BED. PT IS OBTUNDED. RESPONDS TO STIMULI. NO GRIMACING NOTED. ON VENT WITH SETTINGS TOLERATING WELL. NO DISTRESS NOTED AT THIS TIME. LUNG SOUNDS ARE CLEAR. RESPIRATION ARE EVEN AND UNLABORED. G TUBE FEEDING ON GOING AT 45ML/HR. 40ML OF RESIDUAL WAS NOTED. G TUBE INTACT, FLUSHED WELL. RECTAL TUBE IN PLACE. NOTED WITH LIQUID BROWN FECAL OUTPUT. RIGHT UPPER ARM PICC LINE ON SALINE LOCK. NO BLOOD RETURN BUT PATENT AND FLUSHED WELL WITH NS. NO REDNESS OR OTHER S/S OF INFECTION NOTED. SAFETY MAINTAINED. CALL LIGHT WITHIN REACH. WILL CONTINUE MONITORING
[2019-09-26 08:00] VITALS: BP 120/43
[2019-09-26 08:10] LABS: IMMUNOGLOBULIN A, SERUM 284 mg/dL (90-386); IMMUNOGLOBULIN G, SERUM 1395 mg/dL (700-1600); IMMUNOGLOBULIN M, SERUM 28 mg/dL (20-172)
[2019-09-26 08:13] LABS: BASOPHILS # (AUTO) 0.2 /CMM (0.0-0.2); BASOPHILS % (AUTO) 0.9 % (0.0-2.0); HEMATOCRIT 26 % (39-51); HEMOGLOBIN 8.1 g/dL (13.5-17.5); LYMPHOCYTES # (AUTO) 2.4 /CMM (0.8-4.8); LYMPHOCYTES % (AUTO) 13.4 % (20.0-44.0); MEAN CORPUSCULAR HGB CONC 32 g/dl (31.0-36.0); MEAN CORPUSCULAR VOLUME 97 fL (80-96); MONOCYTES # (AUTO) 1.6 /CMM (0.1-1.30); MONOCYTES % (AUTO) 9.2 % (2.0-12.0); NEUTROPHILS # (AUTO) 8.8 /CMM (1.8-8.9); NEUTROPHILS % (AUTO) 50.1 % (43.0-81.0); PLATELET COUNT (AUTO) 172 /CMM (150-450); RED BLOOD CELL COUNT(AUTO) 2.65 MIL/uL (4.5-6.0); WHITE BLOOD COUNT (AUTO) 17.6 K/uL (4.3-11.0)
[2019-09-26 08:18] LABS: EOSINOPHILS % (AUTO) 26.4 % (0.0-6.0)
[2019-09-26 08:20] LABS: CALCIUM, SERUM 9.2 mg/dL (8.5-10.1); CREATININE 2.4 mg/dL (0.6-1.3); MAGNESIUM 1.9 mg/dL (1.8-2.4); POTASSIUM 4.2 mmol/L (3.5-5.1)
[2019-09-26 08:36] LABS: BASOPHILS % (MANUAL) 1 % (0.0-2.0); EOSINOPHILS % (MANUAL) 21 % (0-4); LYMPHOCYTES % (MANUAL) 19 % (16-48); MONOCYTES % (MANUAL) 7 % (0-11.0); NEUTROPHILS % (MANUAL) 52 (42-76)
[2019-09-26] MEDS: ASPIRIN 81 MG TAB.CHEW GT SCH (09:22)
[2019-09-26] MEDS: LACTOBACILLUS RHAMNOSUS GG 1 EACH CAP.SPRINK GT SCH ×2 (09:23→17:30)
[2019-09-26] MEDS: PROSOURCE / PROSTAT (PYXIS) 30 ML UDC GT SCH ×2 (09:23→17:35)
[2019-09-26] MEDS: TRIAMCINOLONE ACETONIDE 0.1% CR 15 GM TUBE TP SCH ×2 (09:23→20:38)
[2019-09-26] MEDS: NYSTATIN TOP POWDER 15 GM BOTTLE TP SCH ×3 (09:24→20:38)
[2019-09-26] MEDS: Z GUARD REMEDY 4 OZ OINT TP SCH ×2 (09:24→20:39)
[2019-09-26] MEDS: AMMONIUM LACTATE 227 GM BOTTLE TP SCH ×2 (09:24→20:39)
[2019-09-26] MEDS: HYDROGEL DRESSING 90 GM TUBE TP SCH ×2 (09:29→20:39)
[2019-09-26 12:00] VITALS: BP 101/36
[2019-09-26] MEDS: CLOTRIMAZOLE/BETAMETASONE DIPROPIONATE 15 GM TUBE TP SCH ×2 (12:49→17:37)
[2019-09-26 16:00] VITALS: BP 90/57
[2019-09-26] MEDS: COLISTIMETHATE SODIUM 100 MG in IV NS 0.9% 50 ML IV SCH (19:44)
--- NOTE | 2019-09-26 19:50 | NUR ---
LICENSING ANALYST CLOSING NOTES NO ACUTE CHANGES IN PATIENT CONDITION NOTED DURING MY SHIFT. PT IN STABLE CONDITION. ALL NEEDS MET. NO S/S OF DISTRESS NOTED. SAFETY MAINTAINED. CALL LIGHT WITHIN REACH. ISOLATION OBSERVED. ENDORSED TO PM SHIFT NURSE TO CONTINUE CARE.
[2019-09-26 20:00] VITALS: BP 79/44
[2019-09-26] MEDS: INSULIN GLARGINE, 100 UNIT/ML CARTRIDGE SQ SCH (21:01)
[2019-09-26] MEDS: ATORVASTATIN 40 MG TABLET PO SCH (21:02)
[2019-09-27] VITALS: BP 84/46
[2019-09-27] MEDS: BLOOD SUGAR DIAGNOSTIC 1 EACH STRIP IN SCH ×6 (01:00→21:13)
[2019-09-27] MEDS: INSULIN REGULAR, HUMAN 100 UNIT/ML 3 ML VIAL SQ PRN ×3 (02:38→09:02)
[2019-09-27] MEDS: METOCLOPRAMIDE HCL 10 MG/2 ML VIAL IV SCH ×3 (03:44→20:03)
[2019-09-27 04:00] VITALS: BP 95/31
--- NOTE | 2019-09-27 05:50 | NUR ---
rn notes no significant change of condition noted, obtunded. in no apparent distress, breathing even and unlabored. vent setting well toleratedl. no physical manifestation of pain or discomfort. s/p debridement 09/26, no active bleeding noted. will endorse to next shift for continuity of care.
[2019-09-27 06:18] LABS: BASOPHILS # (AUTO) 0.1 /CMM (0.0-0.2); BASOPHILS % (AUTO) 0.6 % (0.0-2.0); HEMATOCRIT 26 % (39-51); LYMPHOCYTES # (AUTO) 2.4 /CMM (0.8-4.8); LYMPHOCYTES % (AUTO) 10.9 % (20.0-44.0); MEAN CORPUSCULAR HGB CONC 31 g/dl (31.0-36.0); MEAN CORPUSCULAR VOLUME 98 fL (80-96); MONOCYTES # (AUTO) 2.1 /CMM (0.1-1.30); MONOCYTES % (AUTO) 9.7 % (2.0-12.0); NEUTROPHILS # (AUTO) 11.7 /CMM (1.8-8.9); NEUTROPHILS % (AUTO) 53.6 % (43.0-81.0); PLATELET COUNT (AUTO) 193 /CMM (150-450); WHITE BLOOD COUNT (AUTO) 21.8 K/uL (4.3-11.0)
[2019-09-27 06:26] LABS: CALCIUM, SERUM 9.6 mg/dL (8.5-10.1); CREATININE 2.8 mg/dL (0.6-1.3); POTASSIUM 4.5 mmol/L (3.5-5.1)
[2019-09-27 06:58] LABS: EOSINOPHILS % (AUTO) 25.2 % (0.0-6.0)
--- NOTE | 2019-09-27 07:30 | NUR ---
DEVELOPMENT ADVISOR OPENING NOTES RECEIVED PT IN BED IN STABLE CONDITION. PT IS OBTUNDED. RESPONDS TO STIMULI. NO GRIMACING NOTED. ON VENT WITH SETTINGS ORDERED. TOLERATING WELL NO DISTRESS NOTED AT THIS TIME. O2 SAT @ 100%. RESPIRATIONS ARE EVEN AND UNLABORED. LUNG SOUNDS ARE CLEAR. G TUBE FEEDING ONGOING AT 40MLS/HR. RECTAL TUBE IN PLACE. NOTED WITH LIQUID BROWN FECAL OUTPUT. RIGHT UPPER ARM PICC LINE ON SALINE LOCK. NO BLOOD RETURN FROM PICC LINE BUT PATENT AND FLUSHED WELL. NO REDNESS OR OTHER S/S OF INFECTION NOTED. SAFETY MAINTAINED. CALL LIGHT WITHIN REACH. WILL CONTINUE TO MONITOR.
[2019-09-27 08:00] VITALS: BP 105/56
[2019-09-27] MEDS: LACTOBACILLUS RHAMNOSUS GG 1 EACH CAP.SPRINK GT SCH ×2 (08:13→18:25)
[2019-09-27] MEDS: ASPIRIN 81 MG TAB.CHEW GT SCH (08:13)
[2019-09-27] MEDS: PROSOURCE / PROSTAT (PYXIS) 30 ML UDC GT SCH ×2 (08:25→18:25)
[2019-09-27] MEDS: HYDROGEL DRESSING 90 GM TUBE TP SCH ×2 (08:25→21:20)
[2019-09-27] MEDS: CLOTRIMAZOLE/BETAMETASONE DIPROPIONATE 15 GM TUBE TP SCH ×2 (08:26→17:00)
[2019-09-27] MEDS: Z GUARD REMEDY 4 OZ OINT TP SCH ×2 (08:26→21:20)
[2019-09-27] MEDS: AMMONIUM LACTATE 227 GM BOTTLE TP SCH ×2 (08:26→21:24)
[2019-09-27] MEDS: TRIAMCINOLONE ACETONIDE 0.1% CR 15 GM TUBE TP SCH ×2 (08:27→21:21)
[2019-09-27 08:32] LABS: EOSINOPHILS % (MANUAL) 24 % (0-4); LYMPHOCYTES % (MANUAL) 12 % (16-48); MONOCYTES % (MANUAL) 5 % (0-11.0); NEUTROPHILS % (MANUAL) 59 (42-76)
[2019-09-27 12:00] VITALS: BP 99/60
[2019-09-27 12:07] LABS: *SPE A/G RATIO 0.7 (0.7-1.7); *SPE ALBUMIN 2.3 g/dL (2.9-4.4); *SPE ALPHA-1-GLOBULIN 0.4 g/dL (0.0-0.4); *SPE ALPHA-2-GLOBULIN 0.9 g/dL (0.4-1.0); *SPE BETA GLOBULIN 0.8 g/dL (0.7-1.3); *SPE GLOBULIN, TOTAL 3.5 g/dL (2.2-3.9); *SPE M-SPIKE Not Observed g/dL (Not Observed); *SPEGAMMA GLOBULIN 1.3 g/dL (0.4-1.8)
[2019-09-27] MEDS: ALBUMIN 25% 25 GM in PREMIX 1 EA IV PRN (14:41)
[2019-09-27 16:00] VITALS: BP 110/68
[2019-09-27] MEDS: NYSTATIN TOP POWDER 15 GM BOTTLE TP SCH (17:00)
--- NOTE | 2019-09-27 17:00 | NUR ---
TELE1/RN SCHEDULED 1700 MEDICATION - HELD PT UNDERGOING DIALYSIS TX. UNABLE TO ADMINISTER AT THIS TIME.
[2019-09-27 20:00] VITALS: BP 92/46
--- NOTE | 2019-09-27 20:00 | NUR ---
APPLICATION PERFORMANCE ENGINEER NOTE RECEIVED PT IN BED OBTUNDED, EYES CLOSED. ON VENT/TRACH TOLERATING THE SETTINGS WELL. ON TELE MONITOR SR HR 96. NO DISTRESS OR DISCOMFORT NOTED. NO S/S OF PAIN NOTED. RECTAL TUBE INTACT AND PATENT, DRAINING LIQUIDY STOOL. RESUMED GT FEEDING AT 40 ML/HR, 0 ML RESIDUAL NOTED AT THIS TIME. RESIDUAL WAS HIGH IN DAY SHIFT PER NURSE. GENO PICC LINE INTACT AND PATENT BUT ONE LUMEN IS NOT FUNCTIONING. RCW HR CATH INTACT. NO S/S OF HYPO OR HYPERGLYCEMIA NOTED. REPOSITION HIM Q2H FOR SKIN MANAGEMENT. IN ISOLATION FOR ESBL WOUND, ISOLATION PRECAUTIONS TAKEN. SIDE RAILS UP X 2 AND CALL LIGHT WITHIN REACH. VSS. CONTINUE TO MONITOR HIM.
[2019-09-27] MEDS: COLISTIMETHATE SODIUM 100 MG in IV NS 0.9% 50 ML IV SCH (20:03)
--- NOTE | 2019-09-27 20:08 | NUR ---
MS RN CLOSING NOTES NO ACUTE CHANGES TO PT CONDITION DURING MY SHIFT. ALL PATIENT NEEDS MET. PATIENT IS IN STABLE CONDITION. NO S/S OF DISTRESS NOTED. DIALYSIS WAS DONE TODAY, 2.5L OF FLUID WAS REMOVED. PT TOLERATED PROCEDURE WELL. PATIENT SAFETY WAS MAINTAINED. CALL LIGHT WITHIN REACH. ISOLATION WAS OBSERVED. PATIENT ENDORSED TO SUPERVISOR LANDSCAPE NURSE TO CONTINUE CARE.
[2019-09-27] MEDS: INSULIN GLARGINE, 100 UNIT/ML CARTRIDGE SQ SCH (21:14)
--- NOTE | 2019-09-27 21:15 | NUR ---
INTERNATIONAL SALES MANAGER NOTE BS 89, HELD LANTUS. PT GT FEEDING WAS HELD FOR 2 HOURS IN DAY SHIFT. CONTINUE TO MONITOR.
[2019-09-27] MEDS: ATORVASTATIN 40 MG TABLET PO SCH (21:19)
[2019-09-28] VITALS: BP 109/40
[2019-09-28] MEDS: BLOOD SUGAR DIAGNOSTIC 1 EACH STRIP IN SCH ×6 (01:12→21:43)
[2019-09-28 04:00] VITALS: BP 106/46
[2019-09-28] MEDS: METOCLOPRAMIDE HCL 10 MG/2 ML VIAL IV SCH ×3 (04:34→18:18)
[2019-09-28] MEDS: INSULIN REGULAR, HUMAN 100 UNIT/ML 3 ML VIAL SQ PRN ×4 (04:40→21:52)
--- NOTE | 2019-09-28 07:30 | NUR ---
GEOSPATIAL EXTRACTOR ANALYSIS NOTES PATIENT A/OX 1 ABLE TO OPEN EYES WHEN NAME CALLED AND TOUCH. NO RESIDUAL NOTED AT THIS TIME. CALL LIGHT WITHIN REACH BED AT THE LOWEST POSITION LOCKED. WILL CONTINUE TO MONITOR.
[2019-09-28 07:44] LABS: BASOPHILS # (AUTO) 0.1 /CMM (0.0-0.2); BASOPHILS % (AUTO) 0.6 % (0.0-2.0); EOSINOPHILS % (AUTO) 17.6 % (0.0-6.0); HEMATOCRIT 26 % (39-51); LYMPHOCYTES # (AUTO) 2.2 /CMM (0.8-4.8); MEAN CORPUSCULAR HGB CONC 31 g/dl (31.0-36.0); MEAN CORPUSCULAR VOLUME 98 fL (80-96); MONOCYTES # (AUTO) 1.7 /CMM (0.1-1.30); MONOCYTES % (AUTO) 9.1 % (2.0-12.0); NEUTROPHILS # (AUTO) 11.4 /CMM (1.8-8.9); NEUTROPHILS % (AUTO) 60.7 % (43.0-81.0); PLATELET COUNT (AUTO) 210 /CMM (150-450); RED BLOOD CELL COUNT(AUTO) 2.65 MIL/uL (4.5-6.0); WHITE BLOOD COUNT (AUTO) 18.7 K/uL (4.3-11.0)
[2019-09-28 08:00] VITALS: BP 91/47
[2019-09-28 08:05] LABS: CALCIUM, SERUM 9.7 mg/dL (8.5-10.1); CREATININE 2.5 mg/dL (0.6-1.3); MAGNESIUM 1.9 mg/dL (1.8-2.4); PHOSPHORUS 1.3 mg/dL (2.5-4.9); POTASSIUM 3.8 mmol/L (3.5-5.1)
[2019-09-28 08:45] LABS: EOSINOPHILS % (MANUAL) 13 % (0-4); LYMPHOCYTES % (MANUAL) 10 % (16-48); MONOCYTES % (MANUAL) 7 % (0-11.0); NEUTROPHILS % (MANUAL) 70 (42-76)
[2019-09-28] MEDS: LACTOBACILLUS RHAMNOSUS GG 1 EACH CAP.SPRINK GT SCH ×2 (10:05→17:23)
[2019-09-28] MEDS: ASPIRIN 81 MG TAB.CHEW GT SCH (10:07)
[2019-09-28] MEDS: PROSOURCE / PROSTAT (PYXIS) 30 ML UDC GT SCH ×2 (10:11→17:32)
[2019-09-28] MEDS: TRIAMCINOLONE ACETONIDE 0.1% CR 15 GM TUBE TP SCH ×2 (10:25→22:28)
[2019-09-28] MEDS: HYDROGEL DRESSING 90 GM TUBE TP SCH ×2 (10:25→22:28)
[2019-09-28] MEDS: CLOTRIMAZOLE/BETAMETASONE DIPROPIONATE 15 GM TUBE TP SCH ×2 (10:26→17:33)
[2019-09-28] MEDS: NYSTATIN TOP POWDER 15 GM BOTTLE TP SCH ×2 (10:26→17:33)
[2019-09-28] MEDS: Z GUARD REMEDY 4 OZ OINT TP SCH ×2 (10:27→22:27)
[2019-09-28] MEDS: AMMONIUM LACTATE 227 GM BOTTLE TP SCH ×2 (10:28→22:28)
[2019-09-28 12:00] VITALS: BP 93/45
--- NOTE | 2019-09-28 12:36 | NUR ---
SYSTEMS ADMINISTRATION ANALYST NOTES PATIENT`S BLOOD GLUCOSE LEVEL 184 MG/DL NO INSULIN GIVEN , INSULIN SCHEDULED FOR Q4 HOURS. HELD THE INSULIN.
[2019-09-28] MEDS: VITAL AF 1.2 1,000 ML BOTTLE GT PRN (14:28)
[2019-09-28 16:00] VITALS: BP_SYST 138; BP_SYST 98; BP_DIAS 42; BP_DIAS 70
[2019-09-28] MEDS ORDERED: NEUTRA PHOS 1 POWD.PACKET GT ONE (17:00)
--- NOTE | 2019-09-28 19:30 | NUR ---
PAI GOW DEALER NOTES PATIENT IN BED A/OX1. NO SOB OR DISCOMFORT NOTED AT THIS TIME. ALL NEEDS ATTENDED. MEDS GIVEN. PATIENT TOLERATED GTUBE FEEDING WELL. NO RESIDUAL NOTED.BED AT THE LOWEST POSITION LOCKED, CALL LIGHT WITHIN REACH ENDORSED TO EMPLOYEE'S REPRESENTATIVE NURSE FOR MARKELL.
[2019-09-28 20:00] VITALS: BP 104/28
[2019-09-28] MEDS: COLISTIMETHATE SODIUM 100 MG in IV NS 0.9% 50 ML IV SCH (20:40)
[2019-09-28] MEDS: ATORVASTATIN 40 MG TABLET PO SCH (21:50)
[2019-09-28] MEDS: INSULIN GLARGINE, 100 UNIT/ML CARTRIDGE SQ SCH (21:53)
--- NOTE | 2019-09-28 22:21 | NUR ---
PT RECEIVE STABLE ON MV, SETTINGS ARE AC 18 500 @ 40% FIO2, ALARMS ARE ON AND AUDIBLE , SPARE TRACH AND AMBU BAG IS AT BEDSIDE, TRACH PATENT AND SECURED, VENT IS PLUG IN RED OUTLET, WILL CONTINUE TO MONITOR Addendum: 09/28/19 at 2224 by LAYLA PNEA RT Amended: Links added.
[2019-09-29] VITALS: BP 96/29
[2019-09-29] MEDS: INSULIN REGULAR, HUMAN 100 UNIT/ML 3 ML VIAL SQ PRN ×5 (00:53→17:17)
[2019-09-29] MEDS: BLOOD SUGAR DIAGNOSTIC 1 EACH STRIP IN SCH ×6 (00:54→21:03)
[2019-09-29] MEDS: METOCLOPRAMIDE HCL 10 MG/2 ML VIAL IV SCH ×3 (02:02→19:22)
[2019-09-29 04:00] VITALS: BP 100/36
[2019-09-29 06:55] LABS: BASOPHILS # (AUTO) 0.1 /CMM (0.0-0.2); BASOPHILS % (AUTO) 0.5 % (0.0-2.0); EOSINOPHILS % (AUTO) 15.2 % (0.0-6.0); HEMATOCRIT 26 % (39-51); HEMOGLOBIN 8.1 g/dL (13.5-17.5); LYMPHOCYTES % (AUTO) 17.6 % (20.0-44.0); MEAN CORPUSCULAR HGB CONC 31 g/dl (31.0-36.0); MEAN CORPUSCULAR VOLUME 98 fL (80-96); MONOCYTES # (AUTO) 1.7 /CMM (0.1-1.30); MONOCYTES % (AUTO) 10.3 % (2.0-12.0); NEUTROPHILS # (AUTO) 9.6 /CMM (1.8-8.9); NEUTROPHILS % (AUTO) 56.4 % (43.0-81.0); PLATELET COUNT (AUTO) 266 /CMM (150-450); RED BLOOD CELL COUNT(AUTO) 2.64 MIL/uL (4.5-6.0)
--- NOTE | 2019-09-29 07:15 | NUR ---
STATION MASTER NOTES PATIENT IN BED EYES OPEN. NO ACUTE DISTRESS NOTED. ON MECHANICAL VENTILATION TOLERATING. ON G TUBE FEEDING TOLERATING WELL. FLEXI SEAL IN PLACE. IV ACCESS PATENT AND INTACT, SAFETY MEASURES IN PLACE. WILL CONTINUE TO MONITOR ACCORDINGLY.
--- NOTE | 2019-09-29 07:15 | NUR ---
AUNDREA CASTAÑEDA NOTES PATIENT IN BED EYES OPEN. NO ACUTE DISTRESS NOTED. ON MECHANICAL VENTILATION TOLERATING. ON G TUBE FEEDING TOLERATING WELL. PAPPAS CATHETER INTACT DRAINING WELL, FLEXI SEAL IN PLACE. IV ACCESS PATENT AND INTACT, SAFETY MEASURES IN PLACE. WILL CONTINUE TO MONITOR ACCORDINGLY. Addendum: 09/29/19 at 1449 by SUSAN DEVRIES RN DISREGARD ABOVE NOTES, WRONG PATIENT
[2019-09-29 07:34] LABS: CALCIUM, SERUM 9.8 mg/dL (8.5-10.1); CREATININE 3.1 mg/dL (0.6-1.3); MAGNESIUM 2.2 mg/dL (1.8-2.4); PHOSPHORUS 1.5 mg/dL (2.5-4.9); POTASSIUM 4.4 mmol/L (3.5-5.1)
[2019-09-29 08:00] VITALS: BP 105/60
[2019-09-29] MEDS ORDERED: NEUTRA PHOS 1 POWD.PACKET PO ONE (08:00)
[2019-09-29] MEDS: LACTOBACILLUS RHAMNOSUS GG 1 EACH CAP.SPRINK GT SCH ×2 (08:47→16:28)
[2019-09-29] MEDS: ASPIRIN 81 MG TAB.CHEW GT SCH (08:47)
[2019-09-29] MEDS: PROSOURCE / PROSTAT (PYXIS) 30 ML UDC GT SCH ×2 (08:50→16:28)
[2019-09-29] MEDS: Z GUARD REMEDY 4 OZ OINT TP SCH ×2 (08:55→21:01)
[2019-09-29] MEDS: NYSTATIN TOP POWDER 15 GM BOTTLE TP SCH ×2 (08:56→16:28)
[2019-09-29] MEDS: HYDROGEL DRESSING 90 GM TUBE TP SCH ×2 (08:56→21:01)
[2019-09-29] MEDS: CLOTRIMAZOLE/BETAMETASONE DIPROPIONATE 15 GM TUBE TP SCH ×2 (08:56→16:29)
[2019-09-29] MEDS: TRIAMCINOLONE ACETONIDE 0.1% CR 15 GM TUBE TP SCH ×2 (08:57→21:00)
[2019-09-29] MEDS: AMMONIUM LACTATE 227 GM BOTTLE TP SCH ×2 (09:10→21:11)
--- NOTE | 2019-09-29 09:30 | NUR ---
DOUBLE END TENONER SETTER NOTES SEEN AND EVALUATED BY EDUARDO CLAUDIO PAC REMOVED LEFT AKA MAYDA PATIENT TOLERATED WELL.
[2019-09-29 12:00] VITALS: BP_SYST 101; BP_SYST 99; BP_DIAS 64; BP_DIAS 65
[2019-09-29] MEDS: VITAL AF 1.2 1,000 ML BOTTLE GT PRN (13:08)
[2019-09-29 16:00] VITALS: BP 99/65
--- NOTE | 2019-09-29 16:14 | NUR ---
RT NOTES PATIENT RECEIVED ON MECHANICAL VENT WITH ORDERED SETTINGS. ALARMS ON AND AUDIBLE. VENT PLUGGED IN TO RED OUTLET. TRACH TUBE IN PLACE PATENT AND SECURED WITH TRACH TIE. AMBU BAG AND BACK UP TRACH BY THE BEDSIDE. NO DISTRESS AT THIS TIME. Addendum: 09/29/19 at 1616 by ONEL VEGA RT Amended: Links added.
--- NOTE | 2019-09-29 16:50 | NUR ---
FILLING MIXER NOTES DIALYSIS STARTED BY DIALYSIS NURSE BIANCA, PATIENT WITH STABLE VITALS SIGNS
[2019-09-29] MEDS: ALBUMIN 25% 25 GM in PREMIX 1 EA IV PRN (16:52)
--- NOTE | 2019-09-29 19:02 | NUR ---
PHARMACEUTICAL SPECIALTY REPRESENTATIVE NOTES PATIENT IN BED EYES CLOSED, EASY TO AROUSE. NO ACUTE DISTRESS NOTED. ON MECHANICAL VENTILATION TOLERATING WELL. ON G-TUBE FEEDING TOLERATING WELL. FLEXI SEAL IN PLACE WITH 300 OUTPUT. IV ACCESS PATENT AND INTACT, NO REDNESS OR SWELLING NOTED.PATIENT DIALYSIS ON GOING AT THIS TIME, VITAL SIGNS STABLE. NEEDS ATTENDED AND ANTICIPATED. SAFETY MEASURE IN PLACE. CALL LIGHT WITHIN REACH. WILL ENDORSE TO NIGHT NURSE FOR CONTINUITY OF CARE.
--- NOTE | 2019-09-29 19:04 | NUR ---
RESEARCH AND DEVELOPMENT DIRECTOR NOTES DIALYSIS DONE, 2 LITERS OUT. PATIENT WITH STABLE VITALS SIGNS, NO ACUTE DISTRESS NOTED. WILL ENDORSE TO NIGHT NURSE FOR CONTINUITY OF CARE.
--- NOTE | 2019-09-29 19:20 | NUR ---
RN OPEN NOTES RECEIVED PATIENT RESTING IN BED. OBTUNDED. NO SIGNS OF DISTRESS OR DISCOMFORT. BREATHING EVEN AND UNLABORED. [facility] WITH SETTING ORDERED. ON TELE MONITORING WITH ST 111 NOTED. HAS GENO PICC, PATENT AND INTACT, NO SIGNS OF REDNESS OR INFILTRATION. HAS RCW HD CATH, INTACT, NO SIGNS OF BLEEDING. GTUBE INTACT WITH FEEDING RUNNING, PATIENT TOLERATING WELL. BED IN LOW LOCKED POSITION WITH SIDE RAILS X2. HOB ELEVATED. CALL LIGHT WITHIN REACH. WILL CONTINUE TO MONITOR.
[2019-09-29 20:00] VITALS: BP 84/43
[2019-09-29] MEDS: COLISTIMETHATE SODIUM 100 MG in IV NS 0.9% 50 ML IV SCH (20:49)
--- NOTE | 2019-09-29 21:05 | NUR ---
PT RCVD SARAH'D ON MECHANICAL VENT WITH CHARTED SETTINGS. SX DONE. PT TRACH IS PATENT AND SECURE. VENT ALARMS APPEAR TO BE FUNCTIONING PROPERLY. VENT PLUGGED INTO RED OUTLET. AMBU BAG AT BEDSIDE. NO SOB NOTED. Addendum: 09/29/19 at 2106 by OLAMIDE LANDIN RT Amended: Links added.
[2019-09-29] MEDS: ATORVASTATIN 40 MG TABLET PO SCH (21:11)
[2019-09-29] MEDS: INSULIN GLARGINE, 100 UNIT/ML CARTRIDGE SQ SCH (21:13)
[2019-09-30] VITALS (11 sets, daily range): BP systolic 63–104; BP diastolic 17–50
[2019-09-30] MEDS: INSULIN REGULAR, HUMAN 100 UNIT/ML 3 ML VIAL SQ PRN ×6 (01:14→20:27)
[2019-09-30] MEDS: BLOOD SUGAR DIAGNOSTIC 1 EACH STRIP IN SCH ×6 (01:15→20:17)
[2019-09-30] MEDS: METOCLOPRAMIDE HCL 10 MG/2 ML VIAL IV SCH ×3 (03:34→19:00)
--- NOTE | 2019-09-30 07:00 | NUR ---
RN INITIAL NOTE PATIENT IN BED, OBTUNDED. SR/ST ON TELE MONITOR. ON VENT, SATING WELL AT 100%. HAS A RECTAL TUBE. ON GTF WITH VITAL AF AT 40ML/HR. HAS A RIGHT UA PICC, TKO. AND RIGHT CW HD CATH. LAST HD YESTERDAY WITH 2L OUT. PATIENT IS PENDING A CHAIR FROM [facility], CM AWARE. BED LOCKED AND IN LOWEST POSITION. CALL LIGHT WITHIN REACH, WILL CONTINUE TO MONITOR
[2019-09-30 07:15] LABS: BASOPHILS # (AUTO) 0.2 /CMM (0.0-0.2); BASOPHILS % (AUTO) 0.7 % (0.0-2.0); EOSINOPHILS % (AUTO) 12.2 % (0.0-6.0); HEMATOCRIT 23 % (39-51); LYMPHOCYTES # (AUTO) 3.7 /CMM (0.8-4.8); MEAN CORPUSCULAR HGB CONC 31 g/dl (31.0-36.0); MEAN CORPUSCULAR VOLUME 99 fL (80-96); MONOCYTES # (AUTO) 4.5 /CMM (0.1-1.30); NEUTROPHILS # (AUTO) 16.5 /CMM (1.8-8.9); NEUTROPHILS % (AUTO) 58.1 % (43.0-81.0); PLATELET COUNT (AUTO) 249 /CMM (150-450); WHITE BLOOD COUNT (AUTO) 28.4 K/uL (4.3-11.0)
--- NOTE | 2019-09-30 07:19 | NUR ---
RN CLOSING NOTES PATIENT RESTING IN BED. OBTUNDED. NO SIGNS OF DISTRESS OR DISCOMFORT. BREATHING EVEN AND UNLABORED. ON MECH VENT WITH SETTING ORDERED. ON TELE MONITORING WITH ST 102 NOTED. HAS GENO PICC, PATENT AND INTACT, NO SIGNS OF REDNESS OR INFILTRATION. HAS RCW HD CATH, INTACT, NO SIGNS OF BLEEDING. GTUBE INTACT WITH FEEDING RUNNING, PATIENT TOLERATING WELL. ALL NEEDS MET. NO SIGNIFICANT CHANGES THROUGH THE NIGHT. PATIENT REPOSITIONED Q2H AND PRN. BED IN LOW LOCKED POSITION WITH SIDE RAILS X2. HOB ELEVATED. CALL LIGHT WITHIN REACH. ENDORSED TO AM SHIFT FOR MARKELL.
[2019-09-30 07:32] LABS: CALCIUM, SERUM 9.7 mg/dL (8.5-10.1); CREATININE 2.5 mg/dL (0.6-1.3); PHOSPHORUS 1.3 mg/dL (2.5-4.9); POTASSIUM 4.2 mmol/L (3.5-5.1)
[2019-09-30] MEDS: LACTOBACILLUS RHAMNOSUS GG 1 EACH CAP.SPRINK GT SCH ×2 (08:22→16:29)
[2019-09-30] MEDS: ASPIRIN 81 MG TAB.CHEW GT SCH (08:22)
[2019-09-30] MEDS: HYDROGEL DRESSING 90 GM TUBE TP SCH ×2 (08:26→20:21)
[2019-09-30] MEDS: NYSTATIN TOP POWDER 15 GM BOTTLE TP SCH ×2 (08:26→16:30)
[2019-09-30] MEDS: Z GUARD REMEDY 4 OZ OINT TP SCH ×2 (08:26→20:19)
[2019-09-30 08:27] LABS: BAND % (MANUAL) 1 % (0.0-5.0); EOSINOPHILS % (MANUAL) 13 % (0-4); LYMPHOCYTES % (MANUAL) 16 % (16-48); MONOCYTES % (MANUAL) 5 % (0-11.0); NEUTROPHILS % (MANUAL) 65 (42-76)
[2019-09-30] MEDS: TRIAMCINOLONE ACETONIDE 0.1% CR 15 GM TUBE TP SCH ×2 (08:27→20:18)
[2019-09-30] MEDS: AMMONIUM LACTATE 227 GM BOTTLE TP SCH ×2 (08:27→21:00)
[2019-09-30] MEDS: CLOTRIMAZOLE/BETAMETASONE DIPROPIONATE 15 GM TUBE TP SCH ×2 (08:27→16:29)
[2019-09-30] MEDS: PROSOURCE / PROSTAT (PYXIS) 30 ML UDC GT SCH ×2 (08:30→16:29)
--- NOTE | 2019-09-30 08:30 | NUR ---
RN NOTE PATIENT'S BP PER NOC SHIFT RN AND CN STAYED AT SBP 80s. 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 PATIENT HAD DIALYSIS YESTERDAY, WITH 2L OUT. RECHECKED WITH MANUAL BP. 70/30. PATIENT IS AFEBRILE. NO ACTIVE BLEEDING SEEN. ON RECTAL TUBE, WITH BROWN COLORED STOOL. WBC IS ELEVATED, FROM 17 TO 28.4. HGB DROPPED FROM 8.1 TO 7.0. MUNIR HOWARD HAS BEEN NOTIFIED. STATES HE WILL SEE THE PATIENT MAYKEL. ORDERED TO HAVE A TYPE AND SCREEN AND TO GIVE 1 UNIT OF PRBC STAT.
--- NOTE | 2019-09-30 11:28 | NUR ---
RN NOTE CALLED LAB TO CHECK FOR ANY UPDATES ON THE RBC, THEY SAID THEY WILL CALL ME SOON ITS READY
--- NOTE | 2019-09-30 12:19 | NUR ---
RN NOTE SENT C DIFF STOOL SAMPLE TO LAB, WITH FORM
[2019-09-30] MEDS ORDERED: NEUTRA PHOS 1 POWD.PACKET GT ONE (13:30)
[2019-09-30] MEDS: VITAL AF 1.2 1,000 ML BOTTLE GT PRN (14:34)
[2019-09-30] MEDS: ONDANSETRON HCL/PF 4 MG/2 ML VIAL IVP PRN ×2 (15:47→21:48)
--- NOTE | 2019-09-30 15:53 | NUR ---
RN NOTE BLOOD TRANSFUSION ENDED. RECENT BP 102/23. PATIENT HAS 1 EPISODE OF VOMITING, WAS GIVEN ZOFRAN PRN
[2019-09-30] MEDS: ACETAMINOPHEN 650 MG/20.3 ML UDC NG PRN (17:48)
--- NOTE | 2019-09-30 18:56 | NUR ---
RN CLOSING NOTE PATIENT IN BED, OBTUNDED. WAS GIVEN 1 UNIT OF PRBC, PATIENT WAS STABLE. BP WENT UP TO 99/22 FROM SBP 60s. NOTICED THAT PATIENT'S HR IS ELEVATED TO 120s. CHECKED HIS TEMPERATURE AND PATIENT HAS A FEVER OF 102.0F BY THE END OF THE SHIFT. ADMINISTERED TYLENOL AND WAS GIVEN COOL MEASURES. BED IN LOWEST POSITION. WILL ENDORSE TO NOC SHIFT FOR MARKELL
[2019-09-30] MEDS: COLISTIMETHATE SODIUM 100 MG in IV NS 0.9% 50 ML IV SCH (19:31)
--- NOTE | 2019-09-30 19:36 | NUR ---
BYPRODUCT ENGINEER OPENING NOTES: RECEIVED PT ON VENTILATOR ON SHILEY #8 WITH SETTINGS AC 9, TV 500, FI02 40%. PT ON TELE MONITOR AND READING SHOWS ST 120S AT THIS TIME. PT HAS G TUBE FEEDING. 5ML OF RESIDUAL NOTED. PT ON VITAL AF 40ML/HR FEEDING AND IS TOLERATING WELL. PT HAS GENO PICC LINE AND IS AT TKO AT THIS TIME. HAS BEEN FLUSHED AND IS PATENT AND INTACT. PT ALSO HAS R CHEST WALL HD CATH AND IS INTACT. PT OBTUNDED AND NONVERBAL. PT NOTED WITH RECTAL TUBE WELL WITH YELLOW/BROWN STOOL NOTED IN TUBE. BED KEPT IN LOW, LOCKED POSITION, AND SIDE RAILS X 2 UP. PT ON CONT PULSE OX AT THIS TIME SATURATING AT 100. WILL CONTINUE TO MONITOR PT.
--- NOTE | 2019-09-30 20:28 | NUR ---
CLOTHING TRADES WORKERS NOTES: BLOOD SUGAR IS 254. 12 UNITS OF INSULIN ADMINISTERED. PT ON G TUBE FEEDING. WILL CONTINUE TO MONITOR.
[2019-09-30] MEDS: ATORVASTATIN 40 MG TABLET PO SCH (21:04)
[2019-09-30] MEDS: INSULIN GLARGINE, 100 UNIT/ML CARTRIDGE SQ SCH (21:06)
--- NOTE | 2019-09-30 21:07 | NUR ---
PT RECEIVE STABLE ON MV, SETTINGS ARE AC 18 500 @ 40% FIO2, TRACH PATENT AND SECURED, AMBU BAG IS AT BEDSIDE, VENT IS PLUG IN AT RED OUTLET, ALARMS ARE ON AND AUDIBLE, WILL CONTINUE O MONITOR Addendum: 09/30/19 at 2108 by LAYLA PENA RT Amended: Links added.
--- NOTE | 2019-09-30 21:12 | NUR ---
DIE FILER NOTES: 20 UNITS OF LANTUS WAS ADMINISTERED FOR BLOOD SUGAR OF 254. WILL CONTINUE TO MONITOR. PT ALSO ON G TUBE FEEDING.
--- NOTE | 2019-09-30 21:47 | NUR ---
MONOTYPE SETTER NOTES; WILL REQUEST AMMONIUM LACTATE CREAM THERE IS NO MORE. HAD TO NON-ADMIN MED.
--- NOTE | 2019-09-30 21:48 | NUR ---
SUPPLIES PACKER NOTES: PT APPEARS TO BE NAUSEOUS. PT ADMINISTERED ZOFRAN 4MG IV. WILL CONTINUE TO MONITOR AND WILL SUCTION PRN.
[2019-10-01] VITALS (8 sets, daily range): BP systolic 83–124; BP diastolic 20–78
[2019-10-01] MEDS: BLOOD SUGAR DIAGNOSTIC 1 EACH STRIP IN SCH ×6 (00:25→21:42)
[2019-10-01] MEDS: INSULIN REGULAR, HUMAN 100 UNIT/ML 3 ML VIAL SQ PRN ×6 (00:35→21:48)
--- NOTE | 2019-10-01 00:38 | NUR ---
telephone supervisor notes: blood sugar was 210. 8 units of insulin was administered. pt still on g tube feeding vital AF @ 40ml/hr. will continue to monitor.
[2019-10-01] MEDS: METOCLOPRAMIDE HCL 10 MG/2 ML VIAL IV SCH (03:18)
--- NOTE | 2019-10-01 04:20 | NUR ---
GIS PROGRAMMER NOTES: CURRENT BLOOD SUGAR IS 163. 4 UNITS OF INSULIN WAS ADMINISTERED. PT ON G TUBE FEEDING. WILL CONTINUE TO MONITOR.
--- NOTE | 2019-10-01 06:24 | NUR ---
MERCHANDISE HANDLER CLOSING NOTES: ALL NEEDS WERE ATTENDED AND ANTICIPATED FOR. PT REMAINS ON VENT: SHILEY #8 WITH VENT SETTINGS AC 8, TV 500, AND FI02 40%. PT ON CONTINUOUS PULSE OX ANS SATURATING AT 100%. PT HAS RECTAL TUBE. OUTPUT WAS 1350 ML. PT ON TELE BOX AND READING SHOWS SR 73 WITH PVCS AND 1ST DEGREE AV BLOCK. PT HAS GENO PICC LINE AND IS BEING INFUSED AT TKO. PT ALSO HAS R CHEST WALL HD CATH IS PATENT AND INTACT. PT SUCTIONED NEEDED. WOUND TX PERFORMED ORDERED. PT HAS G TUBE AND IS ON VITAL AF AT 40ML/HR. BED KEPT IN LOW, LOCKED POSITION, AND SIDE RAILS X 2UP. ISOLATION PRECAUTIONS MAINTAINED. WILL ENDORSE TO AM NURSE FOR MARKELL.
--- NOTE | 2019-10-01 07:00 | NUR ---
RN INITIAL NOTE PATIENT IN BED, OBTUNDED. ON VENT, SATING WELL AT 100%. PATIENT WAS AFEBRILE FOR THE WHOLE NIGHT. WAS GIVEN COOLING MEASURES. ON TELE MONITOR, SR/ST. HAS A RECTAL TUBE WITH YELLOWISH-BROWN OUTPUT. CDIFF RESULTS STILL PENDING. PATIENT ON CONTACT/DROPLET ISOLATION. ON GTF VITAL AF AT 40 ML/HR. NO RESIDUAL NOTED. HAS A RIGHT UA PICC AND RIGHT CW HD CATH. SCHEDULED FOR DIALYSIS TODAY. BED IN LOWEST POSITION. WILL CONTINUE TO MONITOR CLOSELY
[2019-10-01 07:44] LABS: BASOPHILS # (AUTO) 0.1 /CMM (0.0-0.2); BASOPHILS % (AUTO) 0.5 % (0.0-2.0); EOSINOPHILS % (AUTO) 15.6 % (0.0-6.0); HEMATOCRIT 30 % (39-51); HEMOGLOBIN 9.6 g/dL (13.5-17.5); LYMPHOCYTES # (AUTO) 3.2 /CMM (0.8-4.8); MEAN CORPUSCULAR HGB CONC 32 g/dl (31.0-36.0); MEAN CORPUSCULAR VOLUME 95 fL (80-96); MONOCYTES # (AUTO) 2.3 /CMM (0.1-1.30); MONOCYTES % (AUTO) 10.8 % (2.0-12.0); NEUTROPHILS # (AUTO) 12.4 /CMM (1.8-8.9); NEUTROPHILS % (AUTO) 58.1 % (43.0-81.0); PLATELET COUNT (AUTO) 270 /CMM (150-450); RED BLOOD CELL COUNT(AUTO) 3.19 MIL/uL (4.5-6.0); WHITE BLOOD COUNT (AUTO) 21.4 K/uL (4.3-11.0)
[2019-10-01 08:01] LABS: ALBUMIN 2.3 g/dL (3.4-5.0); ALKALINE PHOSPHATASE 105 U/L (46-116); ASPARTATE AMINOTRANSFERASE 14 U/L (15-37); BILIRUBIN,TOTAL 0.4 mg/dL (0.2-1.0); CALCIUM, SERUM 10.1 mg/dL (8.5-10.1); CARBON DIOXIDE 23 mmol/L (21-32); CHLORIDE 108 mmol/L (98-107); GLUCOSE 187 mg/dL (74-106); MAGNESIUM 2.2 mg/dL (1.8-2.4); PHOSPHORUS 1.5 mg/dL (2.5-4.9); POTASSIUM 4.8 mmol/L (3.5-5.1); SODIUM SERUM 143 mmol/L (136-145); TOTAL PROTEIN, SERUM 7.3 g/dL (6.4-8.2); UREA NITROGEN, BLOOD 58 mg/dL (7-18)
[2019-10-01 08:03] LABS: ALANINE AMINOTRANSFERASE < 6 U/L (12-78)
[2019-10-01] MEDS: ASPIRIN 81 MG TAB.CHEW GT SCH (08:50)
[2019-10-01] MEDS: LACTOBACILLUS RHAMNOSUS GG 1 EACH CAP.SPRINK GT SCH ×2 (08:50→16:37)
[2019-10-01] MEDS: PROSOURCE / PROSTAT (PYXIS) 30 ML UDC GT SCH ×2 (08:50→16:03)
[2019-10-01] MEDS: TRIAMCINOLONE ACETONIDE 0.1% CR 15 GM TUBE TP SCH ×2 (08:51→21:42)
[2019-10-01] MEDS: CLOTRIMAZOLE/BETAMETASONE DIPROPIONATE 15 GM TUBE TP SCH ×2 (08:51→16:04)
[2019-10-01] MEDS: HYDROGEL DRESSING 90 GM TUBE TP SCH ×2 (08:51→21:42)
[2019-10-01] MEDS: AMMONIUM LACTATE 227 GM BOTTLE TP SCH ×2 (08:51→21:52)
[2019-10-01] MEDS: Z GUARD REMEDY 4 OZ OINT TP SCH ×2 (08:51→21:43)
[2019-10-01] MEDS: NYSTATIN TOP POWDER 15 GM BOTTLE TP SCH (08:51)
[2019-10-01] MEDS ORDERED: EPOETIN ALFA (10,000 UNIT) 10,000 UNIT/ML VIAL IV SCH (09:00)
--- NOTE | 2019-10-01 13:38 | NUR ---
RN NOTE PATIENT'S BP HAS BEEN ON THE LOW SIDE, SBP 80s. DIALYSIS NURSE CANCELLED THE DIALYSIS TODAY, ORDER PER DR SIMON. MUNIR HOWARD DNP MADE AWARE. STATES HE WILL SEE PATIENT MAYKEL. NNO
--- NOTE | 2019-10-01 15:00 | NUR ---
RN NOTE MUNIR AT BEDSIDE, AWARE ABOUT THE PATIENT'S SBP. NNO. AWARE THAT DR AHUJA DC'D SOME OF THE PATIENT'S PRN MEDICATIONS. NNO.
[2019-10-01] MEDS: VITAL AF 1.2 1,000 ML BOTTLE GT PRN (16:51)
--- NOTE | 2019-10-01 18:48 | NUR ---
RN CLOSING NOTE PATIENT IN BED, OBTUNDED. AFEBRILE THE WHOLE SHIFT. ALL MEDS GIVEN. ALL NEEDS MET. REPOSITIONED PER PROTOCOL. ON VENT, SATING WELL 100%. ON TELE MONITOR, SR. HAS RECTAL TUBE, CDIFF RX PENDING. HAS GTF NO RESIDUAL NOTED. HAS A RIGHT UA PICC. AND RIGHT CW HD CATH. PATIENT'S VS STABLE. WILL ENDORSE TO NOC SHIFT FOR MARKELL
[2019-10-01] MEDS: COLISTIMETHATE SODIUM 100 MG in IV NS 0.9% 50 ML IV SCH (20:37)
[2019-10-01] MEDS: METRONIDAZOLE 500 MG TABLET PO SCH (21:44)
[2019-10-01] MEDS: INSULIN GLARGINE, 100 UNIT/ML CARTRIDGE SQ SCH (21:50)
[2019-10-02] VITALS: BP 90/30
[2019-10-02] MEDS: BLOOD SUGAR DIAGNOSTIC 1 EACH STRIP IN SCH ×6 (00:29→21:49)
[2019-10-02] MEDS: INSULIN REGULAR, HUMAN 100 UNIT/ML 3 ML VIAL SQ PRN ×6 (00:34→21:51)
--- NOTE | 2019-10-02 03:55 | NUR ---
PATIENT RECEIVED ON TRACH TO VENT WITH SETTINGS OF AC 18, 500 VT, 40%, +0. SUCTIONED WITH LAVAGE FOR MINIMAL, THIN, WHITE SECRETIONS. AMBU BAG AT BEDSIDE. VENT AND PULSE OXIMETER ALARMS AUDIBLE AND VISIBLE. VENT PLUGGED INTO RED OUTLET. INNER CANNULA CHANGED. Addendum: 10/02/19 at 0356 by KIA BRIGGS RT Amended: Links added.
[2019-10-02 04:00] VITALS: BP 80/40
[2019-10-02] MEDS: METRONIDAZOLE 500 MG TABLET PO SCH ×3 (04:43→21:43)
[2019-10-02 07:06] LABS: BASOPHILS # (AUTO) 0.1 /CMM (0.0-0.2); BASOPHILS % (AUTO) 0.6 % (0.0-2.0); EOSINOPHILS % (AUTO) 15.5 % (0.0-6.0); HEMATOCRIT 30 % (39-51); HEMOGLOBIN 9.5 g/dL (13.5-17.5); LYMPHOCYTES # (AUTO) 3.2 /CMM (0.8-4.8); LYMPHOCYTES % (AUTO) 16.5 % (20.0-44.0); MEAN CORPUSCULAR HGB CONC 31 g/dl (31.0-36.0); MEAN CORPUSCULAR VOLUME 95 fL (80-96); MONOCYTES # (AUTO) 1.5 /CMM (0.1-1.30); MONOCYTES % (AUTO) 7.8 % (2.0-12.0); NEUTROPHILS # (AUTO) 11.3 /CMM (1.8-8.9); NEUTROPHILS % (AUTO) 59.6 % (43.0-81.0); PLATELET COUNT (AUTO) 281 /CMM (150-450); RED BLOOD CELL COUNT(AUTO) 3.18 MIL/uL (4.5-6.0)
[2019-10-02 07:27] LABS: CALCIUM, SERUM 10.9 mg/dL (8.5-10.1); CREATININE 3.4 mg/dL (0.6-1.3); MAGNESIUM 2.3 mg/dL (1.8-2.4); PHOSPHORUS 2.2 mg/dL (2.5-4.9); POTASSIUM 5.6 mmol/L (3.5-5.1)
--- NOTE | 2019-10-02 07:30 | NUR ---
DOLPHIN RESEARCHER NOTE RECEIVED PATIENT IN BED,BOTH EYES OPEN OBTUNDED,WITH TRACH TO VENT SETTING ORDERED,ON TELE MONITOR SR HR 92, WITH RECTAL TUBE IN PLACE NO STOOL NOTED AT THIS TIME, WITH G TUBE FEEDING IN PLACE KEEP HOB ELEVATED AT ALL TIME . RT UPPER ARM PICC LINE BED IN LOWEST AND LOCKED POSITION , WILL MONITOR
[2019-10-02 08:00] VITALS: BP 96/27
[2019-10-02] MEDS: PROSOURCE / PROSTAT (PYXIS) 30 ML UDC GT SCH ×2 (08:06→16:32)
[2019-10-02] MEDS: ASPIRIN 81 MG TAB.CHEW GT SCH (08:06)
[2019-10-02] MEDS: LACTOBACILLUS RHAMNOSUS GG 1 EACH CAP.SPRINK GT SCH ×2 (08:06→16:33)
[2019-10-02] MEDS: AMMONIUM LACTATE 227 GM BOTTLE TP SCH ×2 (08:17→21:44)
[2019-10-02] MEDS: HYDROGEL DRESSING 90 GM TUBE TP SCH ×2 (08:17→21:44)
[2019-10-02] MEDS: CLOTRIMAZOLE/BETAMETASONE DIPROPIONATE 15 GM TUBE TP SCH ×2 (08:17→16:36)
[2019-10-02] MEDS: Z GUARD REMEDY 4 OZ OINT TP SCH ×2 (08:18→21:44)
[2019-10-02] MEDS: TRIAMCINOLONE ACETONIDE 0.1% CR 15 GM TUBE TP SCH ×2 (08:18→21:44)
--- NOTE | 2019-10-02 11:51 | NUR ---
telegrapher agent note all needs attended cont on vent setting ,sat 100% zandra monitor
[2019-10-02 12:00] VITALS: BP_SYST 90; BP_SYST 99; BP_DIAS 22; BP_DIAS 47
--- NOTE | 2019-10-02 14:56 | NUR ---
sergo maxwell note hd at bed side ,will start hd soon Addendum: 10/02/19 at 1532 by AME JUAREZ RN on hd now bp 83/33 albumin iv given by hd nurse
[2019-10-02] MEDS ORDERED: ALBUMIN 25% 25 GM in PREMIX 1 EA IV PRN (15:30)
[2019-10-02 16:00] VITALS: BP_SYST 74; BP_SYST 84; BP_DIAS 19; BP_DIAS 26
--- NOTE | 2019-10-02 16:15 | NUR ---
AUNDREA CASTAÑEDA NOTE HD COMPLETED BP HR 110 Addendum: 10/02/19 at 1829 by AME JUAREZ RN 1615 hd done no fluids out
--- NOTE | 2019-10-02 17:00 | NUR ---
RT PT RECEIVED TRACH AND ON [facility] VENT. VENT IS PLUGGED INTO RED OUTLET W BMV AND SPARE TRACH @ HOB. ALARMS ARE SET AND AUDIBLE. NO RESPIRATORY DISTRESS NOTED T/O SHIFT. PT STABLE. Addendum: 10/02/19 at 1832 by JUDITH MCCLELLAN RT Amended: Links added.
--- NOTE | 2019-10-02 18:31 | NUR ---
REELER OPERATOR NOTE PATIENT IN BED ,OBTUNDED WITH TRACH TO VENT SETTING ORDERED, WITH RECTAL TUBE IN PLACE,ON G TUBE FEEDING ORDERED ,KEEP HOV ELEVATED, SAT AT THIS TIME 100% ,WILL CONT TO MONITOR CLOSELY
[2019-10-02] MEDS: COLISTIMETHATE SODIUM 100 MG in IV NS 0.9% 50 ML IV SCH (19:56)
[2019-10-02 20:00] VITALS: BP 82/22
--- NOTE | 2019-10-02 20:00 | NUR ---
MANAGER READING NOTE PT IN BED OBTUNDED. ON VENT/TACH TOLERATING THE SETTINGS WELL. NO DISTRESS OR DISCOMFORT NOTED. NO S/S OF PAIN NOTED. GT INTACT AND PATENT INFUSING VITAL AF 1.2 ZOE AT 40 ML/HR, 0 ML RESIDUAL NOTED. PT REMAIN IN ISOLATION ESBL WOUND, ISOLATION PRECAUTIONS TAKEN. FLEX SEAL INTACT AND PATENT DRAINING LIQUIDY STOOL. REPOSITION HIM FOR SKIN MANAGEMENT. SIDE RAILS UP X 3 AND CALL LIGHT WITHIN REACH. CONTINUE TO MONITOR HIM.
[2019-10-02] MEDS: INSULIN GLARGINE, 100 UNIT/ML CARTRIDGE SQ SCH (21:52)
[2019-10-03] VITALS (28 sets, daily range): BP systolic 61–144; BP diastolic 17–90
[2019-10-03] MEDS: BLOOD SUGAR DIAGNOSTIC 1 EACH STRIP IN SCH ×6 (01:13→21:30)
[2019-10-03] MEDS: INSULIN REGULAR, HUMAN 100 UNIT/ML 3 ML VIAL SQ PRN ×6 (01:16→21:34)
[2019-10-03] MEDS: METRONIDAZOLE 500 MG TABLET PO SCH ×3 (04:14→21:27)
[2019-10-03] MEDS: VITAL AF 1.2 1,000 ML BOTTLE GT PRN (04:14)
[2019-10-03 06:45] LABS: BASOPHILS # (AUTO) 0.1 /CMM (0.0-0.2); BASOPHILS % (AUTO) 0.6 % (0.0-2.0); EOSINOPHILS % (AUTO) 10.7 % (0.0-6.0); HEMATOCRIT 28 % (39-51); LYMPHOCYTES # (AUTO) 3.1 /CMM (0.8-4.8); LYMPHOCYTES % (AUTO) 14.6 % (20.0-44.0); MEAN CORPUSCULAR HGB CONC 32 g/dl (31.0-36.0); MEAN CORPUSCULAR VOLUME 95 fL (80-96); MONOCYTES # (AUTO) 2.1 /CMM (0.1-1.30); MONOCYTES % (AUTO) 9.9 % (2.0-12.0); NEUTROPHILS # (AUTO) 13.8 /CMM (1.8-8.9); NEUTROPHILS % (AUTO) 64.2 % (43.0-81.0); PLATELET COUNT (AUTO) 300 /CMM (150-450); RED BLOOD CELL COUNT(AUTO) 2.92 MIL/uL (4.5-6.0); WHITE BLOOD COUNT (AUTO) 21.5 K/uL (4.3-11.0)
--- NOTE | 2019-10-03 06:57 | NUR ---
REGISTRY NP NOTE PT IN BED WITH EYES OPEN. OBTUNDED. TOLERATING VENT SETTINGS WELL. SUCTIONED HIM FREQUENTLY. THICK WHITE SECRETIONS NOTED. NO DISTRESS OR DISCOMFORT NOTED. NO S/S OF PAIN NOTED. GTF INFUSING WELL. 0 ML RESIDUAL NOTED. REPOSITION HIM Q2H. KEPT HIM DRY AND CLEAN. ON TELE ST HR 101. SIDE RAILS UP X 3 AND CALL LIGHT WITHIN REACH. REPOSITION HIM Q2H, KEPT HIM DRY AND CLEAN. ALL NEEDS ATTENDED. WILL ENDORSE TO DAY SHIFT NURSE FOR CONTINUE TO CARE.
[2019-10-03 07:03] LABS: CALCIUM, SERUM 10.4 mg/dL (8.5-10.1); CREATININE 3.1 mg/dL (0.6-1.3); MAGNESIUM 2.1 mg/dL (1.8-2.4); PHOSPHORUS 1.3 mg/dL (2.5-4.9); POTASSIUM 4.1 mmol/L (3.5-5.1)
--- NOTE | 2019-10-03 07:42 | NUR ---
TEXTILES PRINTER OPENING NOTE RECEIVED BEDSIDE REPORT, PT IN BED WITH EYES CLOSED, OBTUNDED. TOLERATING VENT SETTINGS WELL,NO SIGNS OF RESPIRATORY DISTRESS NOTED. VITAL AF GTF INFUSING WELL AT 40CC/HR, TOLERATING FEEDING WELL, NO RESIDUAL NOTED. ON TELE MONITOR SINUS RHYTHM 98. RIGHT UPPER ARM PICC LINE PATENT, SECURED WITH CLEAN DRESSING. RECTAL TUBE INTACT, 200 CC OUTPUT AT BEGINNING OF SHIFT. BED IN LOW POSITION, LOCKED, CALL LIGHT WITHIN REACH.
[2019-10-03] MEDS: PROSOURCE / PROSTAT (PYXIS) 30 ML UDC GT SCH ×2 (09:18→16:47)
[2019-10-03] MEDS: ASPIRIN 81 MG TAB.CHEW GT SCH (09:19)
[2019-10-03] MEDS: LACTOBACILLUS RHAMNOSUS GG 1 EACH CAP.SPRINK GT SCH ×2 (09:19→16:48)
[2019-10-03] MEDS: HYDROGEL DRESSING 90 GM TUBE TP SCH ×2 (09:21→21:23)
[2019-10-03] MEDS: CLOTRIMAZOLE/BETAMETASONE DIPROPIONATE 15 GM TUBE TP SCH ×2 (09:21→17:10)
[2019-10-03] MEDS: VITAMINS A AND D 56.7 GM TUBE TP PRN (09:21)
[2019-10-03] MEDS: TRIAMCINOLONE ACETONIDE 0.1% CR 15 GM TUBE TP SCH ×2 (09:22→21:23)
[2019-10-03] MEDS: Z GUARD REMEDY 4 OZ OINT TP SCH ×2 (09:22→21:22)
[2019-10-03] MEDS: AMMONIUM LACTATE 227 GM BOTTLE TP SCH ×2 (09:29→21:23)
--- NOTE | 2019-10-03 11:18 | NUR ---
Oil Recovery Operator consult requested by Suman Rivers DNP for bioethics meeting to be arranged with the family regarding the pt.'s recent cardiovascular health concerns. RADHA called the pt.'s , Janet [phone] to set up bioethics meeting. Per Janet, she would prefer a phone conference on Thursday 10 am or earlier or can attend in person any day after 7 pm. Janet stated, "I work everyday and cannot afford to take a day off". Janet expressed that she is willing to have a meeting regarding the pt.'s cardio concerns and treatment options so family can make informed decisions. However, per Janet, family doesn't want to be asked to make pt. DNR or have the pt. be placed in hospice care. RADHA relayed above stated information to upper caser, Harjinder. Harjinder will coordinate with the attending physician an will notify RADHA if and when Bioethics meeting can take place. RADHA informed Harjinder that the pt.'s , Janet is Bahamian speaking only and would benefit from having a Bahamian speaking doctor conduct the meeting.
[2019-10-03] MEDS ORDERED: NEUTRA PHOS 1 POWD.PACKET PO ONE (12:00)
--- NOTE | 2019-10-03 15:35 | NUR ---
during turning and repositioning pt's flexi seal rectal tube came out. inserted new tube.
[2019-10-03] MEDS: MIDODRINE HCL (5MG) 5 MG TABLET GT SCH (16:50)
--- NOTE | 2019-10-03 17:13 | NUR ---
SPOKE WITH DR. HOWARD, NOTIFIED OF CONTINUOUS LOW BP READINGS. DR. HOWARD ORDERED TO MONITOR BP FOR ONE MORE HOUR AND TO NOTIFY HIM OF THE BP READING.
--- NOTE | 2019-10-03 18:40 | NUR ---
TRANSFERRED PT VIA ACLS PROTOCOL TO ICU ROOM 261, GAVE REPORT TO JASKARAN CASTAÑEDA.
--- NOTE | 2019-10-03 19:00 | NUR ---
PRECISION AIRCRAFT SYSTEMS ASSEMBLER NOTES RECEIVED THIS PATIENT FROM HANH. PATIENT ATTACHED TO MONITOR AND MADE COMFORTABLE. BP 90/40, NOT IN ANY DISTRESS. REPORT GIVEN TO ALANA GUILLAUME.
--- NOTE | 2019-10-03 19:30 | NUR ---
RN OPENING OPENING, RECEIVED PATIENT IN BED WITH EYES SEMI OPEN AT THIS TIME, OBTUNDED UNABLE YO MAKE NEEDS KNOWN, TOLERATING VENT SETTINGS WELL, ON MECHANICAL VENTILATOR TOLERATING SETTINGS WELL, NO SOB/NO SIGNS OF RESPIRATORY DISTRESS NOTED, GENO PICC LIEN IN PLACES PATENT AND INTACT, GT IN PLACED, VITAL AF GTF INFUSING WELL AT 40CC/HR, AND PATIENT TOLERATING WELL, MINIMAL RESIDUAL NOTED, SINUS TACHY AT THIS TIME 108 AT THIS TIME, 90/50, 20, 100%, 99.4, RECTAL TUBE IN PLACED, BED LOCKED AND IN LOW POSITION, WILL CONTINUE TO MONITOR CLOSELY.
[2019-10-03] MEDS: COLISTIMETHATE SODIUM 100 MG in IV NS 0.9% 50 ML IV SCH (20:56)
[2019-10-03] MEDS: INSULIN GLARGINE, 100 UNIT/ML CARTRIDGE SQ SCH (21:36)
--- NOTE | 2019-10-03 23:20 | NUR ---
RN NOTES, NOTED PATIENT WITH SBP 70S AND ONE READING 65/30 AT THIS TIME, CALLED MARY ORELLANA SALES VICE PRESIDENT, AWAITING FOR CALL BACK.
--- NOTE | 2019-10-03 23:25 | NUR ---
RN NOTES, RECEIVED A CALL FROM MARY ORELLANA AND REPORT PATIENT'S CONDITION AND LOW BP/AND HR IN 110S, MARY REPLAY WITH NEW ORDER FOR HENRIK TO KEEP SBP >90, NOTED AND CARRIED OUT. Addendum: 10/03/19 at 2354 by ALANA ORNELAS RN MARY ORELLANA REPLIED WITH NEW ORDER FOR NEOSYNEPHRINE PER PROTOCOL.
[2019-10-03] MEDS ORDERED: PHENYLEPHRINE 80 MG in IV D5W 250 ML IV PRN (23:30)
[2019-10-03] MEDS ORDERED: PHENYLEPHRINE 10 MG/ML VIAL ONE (23:31)
[2019-10-03] MEDS: PHENYLEPHRINE 80 MG in IV D5W 250 ML IV PRN (23:42)
[2019-10-04] VITALS (89 sets, daily range): BP systolic 67–164; BP diastolic 21–92
[2019-10-04] MEDS: BLOOD SUGAR DIAGNOSTIC 1 EACH STRIP IN SCH ×6 (01:19→21:18)
[2019-10-04] MEDS: INSULIN REGULAR, HUMAN 100 UNIT/ML 3 ML VIAL SQ PRN ×6 (01:21→21:36)
[2019-10-04 04:51] LABS: BASOPHILS # (AUTO) 0.1 /CMM (0.0-0.2); BASOPHILS % (AUTO) 0.5 % (0.0-2.0); EOSINOPHILS % (AUTO) 9.1 % (0.0-6.0); HEMATOCRIT 29 % (39-51); HEMOGLOBIN 9.1 g/dL (13.5-17.5); LYMPHOCYTES # (AUTO) 3.4 /CMM (0.8-4.8); LYMPHOCYTES % (AUTO) 15.2 % (20.0-44.0); MEAN CORPUSCULAR HGB CONC 32 g/dl (31.0-36.0); MEAN CORPUSCULAR VOLUME 96 fL (80-96); MONOCYTES % (AUTO) 9.2 % (2.0-12.0); NEUTROPHILS # (AUTO) 14.7 /CMM (1.8-8.9); PLATELET COUNT (AUTO) 295 /CMM (150-450); RED BLOOD CELL COUNT(AUTO) 2.98 MIL/uL (4.5-6.0); WHITE BLOOD COUNT (AUTO) 22.2 K/uL (4.3-11.0)
[2019-10-04 04:56] LABS: CALCIUM, SERUM 10.3 mg/dL (8.5-10.1); CREATININE 2.8 mg/dL (0.6-1.3); MAGNESIUM 1.9 mg/dL (1.8-2.4); PHOSPHORUS 1.1 mg/dL (2.5-4.9); POTASSIUM 4.2 mmol/L (3.5-5.1)
[2019-10-04] MEDS: METRONIDAZOLE 500 MG TABLET PO SCH ×3 (05:14→21:16)
--- NOTE | 2019-10-04 06:58 | NUR ---
MIS DIRECTOR NOTES, ON MECHANICAL VENTILATOR, NO SOB/NO RESPIRATORY DISTRESS NOTED NO SIGNIFICANT CHANGE IN CONDITION DURING THE NIGHT, PATIENT CONTINUE ON HENRIK-SYNEPHRINE AT 20MCG/MIN TO MAINTAIN SYSTOLIC BLOOD PRESSURE ABOVE 90S WOUND TREATMENT PROVIDED ORDERED, ALL NEEDS ATTENDED, BED LOCKED AND IN LOW POSITION, SIDE RAILS X2, CALL LIGHT WITHIN REACH , HOB AT ALL TIMES, WILL ENDORSE CONTINUITY OF CARE TO ONCOMING NURSE.
--- NOTE | 2019-10-04 07:12 | NUR ---
PROTEOMICS SCIENTIST INITIAL NOTES Rec'd pt on bed, obtunded. On MV via trach, no SOB. ST on telemonitor, warm to touch. Has GENO PICC line w/ Gómez drip x 20 mcg infusing well. Has GT, on Vital AF x 40 cc/hr infusing well. Flexiseal in place w/ liquid stool. Bed in lowest & locked pos. Call light placed w/in reach. Will cont to monitor & attend pt need.
--- NOTE | 2019-10-04 08:00 | NUR ---
Temp 101.8 - Dr. Tejada made aware, may order Tylenol 650 mg q6h PRN.
[2019-10-04] MEDS: LACTOBACILLUS RHAMNOSUS GG 1 EACH CAP.SPRINK GT SCH ×2 (08:24→17:09)
[2019-10-04] MEDS: ASPIRIN 81 MG TAB.CHEW GT SCH (08:25)
[2019-10-04] MEDS: MIDODRINE HCL (5MG) 5 MG TABLET GT SCH ×3 (08:25→17:10)
[2019-10-04] MEDS: PROSOURCE / PROSTAT (PYXIS) 30 ML UDC GT SCH ×3 (09:00→17:10)
[2019-10-04] MEDS: HYDROGEL DRESSING 90 GM TUBE TP SCH ×2 (09:37→21:00)
[2019-10-04] MEDS: ACETAMINOPHEN 650 MG/20.3 ML UDC NG PRN ×2 (09:37→17:09)
[2019-10-04] MEDS: VITAMINS A AND D 56.7 GM TUBE TP PRN (09:38)
[2019-10-04] MEDS: Z GUARD REMEDY 4 OZ OINT TP SCH ×2 (09:41→22:37)
[2019-10-04] MEDS: AMMONIUM LACTATE 227 GM BOTTLE TP SCH ×2 (09:41→21:00)
[2019-10-04] MEDS: CLOTRIMAZOLE/BETAMETASONE DIPROPIONATE 15 GM TUBE TP SCH ×2 (09:42→17:10)
[2019-10-04] MEDS: TRIAMCINOLONE ACETONIDE 0.1% CR 15 GM TUBE TP SCH ×2 (09:42→21:00)
--- NOTE | 2019-10-04 09:45 | NUR ---
Pt seen & examined by Dr. Rocha, updated about pt condition.
[2019-10-04] MEDS: VITAL AF 1.2 1,000 ML BOTTLE GT PRN (09:59)
--- NOTE | 2019-10-04 10:00 | NUR ---
Pt seen & examined by Casie MARROQUIN, updated about pt condition. Per PRACTICE BILLING ASSOCIATE to do panculture d/t fever. Gastric residual of 900cc, notified Casie MARROQUIN. Informed her GTF held at this time. May order Reglan 10mg q6hr via GT.
[2019-10-04] MEDS: METOCLOPRAMIDE HCL 10 MG/10 ML UDC GT SCH ×2 (12:06→17:09)
[2019-10-04] MEDS: PHENYLEPHRINE 80 MG in IV D5W 250 ML IV PRN (13:02)
--- NOTE | 2019-10-04 17:15 | NUR ---
RT NOTE: PATIENT RECEIVED SHILEY #8 TRACH ON ESPRIT VENT. ALARMS VERIFIED AND AUDIBLE. SUCTIONED AND LAVAGED MODERATE-LARGE AMOUNT OF THICK DWYER SECRETIONS. VENT PLUGGED INTO RED OUTLET. AMBU BAG AT [facility].
--- NOTE | 2019-10-04 18:43 | NUR ---
WAITER/WAITRESS FIRST CLASS CLOSING NOTES Pt resting on his bed, not in any distress, remains obtunded. Tolerating current MV settings w/ no SOB. Remains ST on telemonitor, warm to touch and running fever 101. GENO PICC line kept patent & intact w/ Gómez drip x 30 mcg infusing well. GT kept intact, restarted Vital AF x 10 cc/hr infusing well. Flexiseal kept in place w/ liquid stool, level 500cc. Bed kept in lowest & locked pos. Call light placed w/in reach. Isolation prec observed at all times. Will endorse to PM RN for MARKELL.
[2019-10-04] MEDS ORDERED: FEE PK DOSING 1 MIN EA MC ONE ×2 (19:47)
[2019-10-04] MEDS ORDERED: DOSING PER PHARMACY-AMIKACI IV XX PRN (20:00)
[2019-10-04] MEDS: COLISTIMETHATE SODIUM 100 MG in IV NS 0.9% 50 ML IV SCH (20:34)
[2019-10-04] MEDS ORDERED: VANCOMYCIN 500 MG in IV D5W 100 ML IV ONE (21:00)
[2019-10-04] MEDS ORDERED: AMIKACIN 300 MG in IV D5W 100 ML IV ONE (21:00)
[2019-10-04] MEDS: INSULIN GLARGINE, 100 UNIT/ML CARTRIDGE SQ SCH (21:38)
[2019-10-05] VITALS (88 sets, daily range): BP systolic 43–143; BP diastolic 21–81
[2019-10-05] MEDS: METOCLOPRAMIDE HCL 10 MG/10 ML UDC GT SCH ×4 (00:32→17:03)
[2019-10-05] MEDS: BLOOD SUGAR DIAGNOSTIC 1 EACH STRIP IN SCH ×6 (00:33→21:38)
[2019-10-05] MEDS: INSULIN REGULAR, HUMAN 100 UNIT/ML 3 ML VIAL SQ PRN ×6 (00:41→22:31)
[2019-10-05 04:45] LABS: BASOPHILS # (AUTO) 0.1 /CMM (0.0-0.2); BASOPHILS % (AUTO) 0.6 % (0.0-2.0); EOSINOPHILS % (AUTO) 8.6 % (0.0-6.0); HEMATOCRIT 27 % (39-51); HEMOGLOBIN 8.4 g/dL (13.5-17.5); LYMPHOCYTES # (AUTO) 3.5 /CMM (0.8-4.8); LYMPHOCYTES % (AUTO) 15.1 % (20.0-44.0); MEAN CORPUSCULAR HGB CONC 32 g/dl (31.0-36.0); MEAN CORPUSCULAR VOLUME 96 fL (80-96); MONOCYTES # (AUTO) 2.9 /CMM (0.1-1.30); MONOCYTES % (AUTO) 12.5 % (2.0-12.0); NEUTROPHILS # (AUTO) 14.7 /CMM (1.8-8.9); NEUTROPHILS % (AUTO) 63.2 % (43.0-81.0); PLATELET COUNT (AUTO) 312 /CMM (150-450); RED BLOOD CELL COUNT(AUTO) 2.77 MIL/uL (4.5-6.0); WHITE BLOOD COUNT (AUTO) 23.2 K/uL (4.3-11.0)
[2019-10-05 05:02] LABS: CALCIUM, SERUM 11.1 mg/dL (8.5-10.1); CREATININE 3.4 mg/dL (0.6-1.3); MAGNESIUM 2.2 mg/dL (1.8-2.4); PHOSPHORUS 1.3 mg/dL (2.5-4.9); POTASSIUM 4.3 mmol/L (3.5-5.1)
[2019-10-05] MEDS: METRONIDAZOLE 500 MG TABLET PO SCH ×3 (06:00→21:45)
[2019-10-05] MEDS ORDERED: AMIKACIN 300 MG in IV D5W 100 ML IV PRN (07:00)
--- NOTE | 2019-10-05 07:00 | NUR ---
RN INITIAL NOTE PATIENT IN BED, OBTUNDED. ON VENT, SATING WELL AT 100%. SINUS RHYTHM AT 98 ON THE MONITOR. HAS GTF WITH VITAL AT 40ML/HR. NO RESIDUAL NOTED. HAS FLEXI SEAL. HAS A RIGHT UA PICC WITH HENRIK AT 20MCG. WILL CONTINUE TO MONITOR CLOSELY Addendum: 10/05/19 at 1030 by RASHEED VALDIVIA RN VITAL GTF AT 20ML/HR. GOAL AT 40ML/HR. WILL INCREASE TOLERATED
[2019-10-05] MEDS: MIDODRINE HCL (5MG) 5 MG TABLET GT SCH ×3 (08:32→16:44)
[2019-10-05] MEDS: ASPIRIN 81 MG TAB.CHEW GT SCH (08:32)
[2019-10-05] MEDS: PROSOURCE / PROSTAT (PYXIS) 30 ML UDC GT SCH ×2 (08:32→16:44)
[2019-10-05] MEDS: LACTOBACILLUS RHAMNOSUS GG 1 EACH CAP.SPRINK GT SCH ×2 (08:32→16:44)
[2019-10-05] MEDS: HYDROGEL DRESSING 90 GM TUBE TP SCH ×2 (09:03→21:36)
[2019-10-05] MEDS: AMMONIUM LACTATE 227 GM BOTTLE TP SCH ×2 (09:03→21:37)
[2019-10-05] MEDS: Z GUARD REMEDY 4 OZ OINT TP SCH ×2 (09:03→21:35)
[2019-10-05] MEDS: CLOTRIMAZOLE/BETAMETASONE DIPROPIONATE 15 GM TUBE TP SCH ×2 (09:03→16:44)
[2019-10-05] MEDS: TRIAMCINOLONE ACETONIDE 0.1% CR 15 GM TUBE TP SCH ×2 (09:03→21:36)
--- NOTE | 2019-10-05 09:30 | NUR ---
RN NOTE DIALYSIS NURSE AT BEDSIDE, PATIENT'S SBP HAS BEEN LOW: SBP 60s. EVEN WENT LOWER AT 50s. RECHECKED AGAIN WITHIN 10 MINUTES. STAYED AT 60s. CN MADE AWARE, INCREASED HENRIK AT 30MCG. WILL CONTINUE TO MONITOR
--- NOTE | 2019-10-05 10:00 | NUR ---
RN NOTE DR JACK AT BEDSIDE, AWARE THAT PATIENT'S BP HAS BEEN RUNNING LOW. CN INCREASED HENRIK AT 40MCG. CURRENT SBP AT 78
--- NOTE | 2019-10-05 10:57 | NUR ---
RN NOTE KRISTEN Huntley AT BEDSIDE, AWARE THAT PATIENT IS ON HENRIK AT 50MCG AND BP IS BEEN RUNNING LOW DURING DIALYSIS. ALSO AWARE THAT PATIENT HAD A 245ML RESIDUAL AND FEEDING WAS DECREASED TO 10ML/HR. RIGHT NOW PATIENT ON 20ML/HR AND TOLERATING WELL
[2019-10-05] MEDS ORDERED: NEUTRA PHOS 1 POWD.PACKET GT ONE (11:00)
--- NOTE | 2019-10-05 11:00 | NUR ---
RN NOTE HEMODIALYSIS DONE. NO OUTPUT
[2019-10-05] MEDS ORDERED: EPOETIN ALFA (10,000 UNIT) 10,000 UNIT/ML VIAL IV ONE (11:30)
[2019-10-05] MEDS: VANCOMYCIN 500 MG in IV D5W 100 ML IV PRN (13:51)
--- NOTE | 2019-10-05 18:58 | NUR ---
RN CLOSING NOTE PATIENT IN BED, OBTUNED. NO SIGNS OF ANY DISTRESS. ALL MEDS GIVEN. ON GTF AT 30ML/HR. GOAL AT 40ML/HR. NO RESIDUAL NOTED. REPOSITIONED PER PROTOCOL. WOUND CARE ORDERED. INSULIN COVERAGE WAS GIVEN. HAS NEOMYCIN AT 40MCG. VANCO POST HD WAS GIVEN AND EPOGEN IV WAS GIVEN. PER MD, WEAN PRESSORS TOLERATED. BED IN LOWEST POSITION. WILL ENDORSE TO NOC SHIFT RN FOR MARKELL Addendum: 10/05/19 at 1906 by RASHEED VALDIVIA RN REPORT GIVEN TO GARRY QUIÑONEZ
[2019-10-05] MEDS: COLISTIMETHATE SODIUM 100 MG in IV NS 0.9% 50 ML IV SCH (20:01)
[2019-10-05] MEDS: ACETAMINOPHEN 650 MG/20.3 ML UDC NG PRN (22:24)
[2019-10-05] MEDS: PHENYLEPHRINE 80 MG in IV D5W 250 ML IV PRN (22:26)
[2019-10-05] MEDS: INSULIN GLARGINE, 100 UNIT/ML CARTRIDGE SQ SCH (22:28)
[2019-10-06] VITALS (62 sets, daily range): BP systolic 61–140; BP diastolic 22–107
[2019-10-06] MEDS: METOCLOPRAMIDE HCL 10 MG/10 ML UDC GT SCH ×4 (01:01→17:13)
[2019-10-06] MEDS: BLOOD SUGAR DIAGNOSTIC 1 EACH STRIP IN SCH ×6 (01:01→21:40)
[2019-10-06 05:08] LABS: BASOPHILS # (AUTO) 0.2 /CMM (0.0-0.2); BASOPHILS % (AUTO) 0.5 % (0.0-2.0); EOSINOPHILS % (AUTO) 8.6 % (0.0-6.0); HEMATOCRIT 33 % (39-51); HEMOGLOBIN 9.9 g/dL (13.5-17.5); LYMPHOCYTES # (AUTO) 5.1 /CMM (0.8-4.8); LYMPHOCYTES % (AUTO) 15.9 % (20.0-44.0); MEAN CORPUSCULAR HGB CONC 30 g/dl (31.0-36.0); MEAN CORPUSCULAR VOLUME 98 fL (80-96); MONOCYTES # (AUTO) 3.3 /CMM (0.1-1.30); MONOCYTES % (AUTO) 10.4 % (2.0-12.0); NEUTROPHILS # (AUTO) 20.8 /CMM (1.8-8.9); NEUTROPHILS % (AUTO) 64.6 % (43.0-81.0); PLATELET COUNT (AUTO) 326 /CMM (150-450); RED BLOOD CELL COUNT(AUTO) 3.35 MIL/uL (4.5-6.0)
[2019-10-06 05:30] LABS: CALCIUM, SERUM 11.3 mg/dL (8.5-10.1); CREATININE 3.3 mg/dL (0.6-1.3); MAGNESIUM 2.1 mg/dL (1.8-2.4); PHOSPHORUS 2.1 mg/dL (2.5-4.9); POTASSIUM 4.7 mmol/L (3.5-5.1)
[2019-10-06 05:46] LABS: WHITE BLOOD COUNT (AUTO) 32.2 K/uL (4.3-11.0)
[2019-10-06] MEDS: INSULIN REGULAR, HUMAN 100 UNIT/ML 3 ML VIAL SQ PRN ×5 (05:55→21:49)
[2019-10-06] MEDS: METRONIDAZOLE 500 MG TABLET PO SCH ×3 (05:57→21:31)
[2019-10-06 06:09] LABS: BAND % (MANUAL) 6 % (0.0-5.0); EOSINOPHILS % (MANUAL) 16 % (0-4); LYMPHOCYTES % (MANUAL) 9 % (16-48); MONOCYTES % (MANUAL) 13 % (0-11.0); NEUTROPHILS % (MANUAL) 56 (42-76)
--- NOTE | 2019-10-06 06:54 | NUR ---
PATIENT REMAINS IN NO ACUTE DISTRESS IN BED. PATIENT TOLERATING VENT SETTING WELL. ALL NEEDS MET, ALL ORDERS CARRIED OUT. WILL ENDORSE CARE TO AM RN FOR CONTINUITY OF CARE.
--- NOTE | 2019-10-06 07:00 | NUR ---
WEB MACHINE TENDER NOTES PATIENT IS OBTUNDED. PATIENT DOES FEEL LIGHT PAIN. AND WHEN MOVED PATIENT WILL COUGH. PATIENT IS IN ST/ SR . PATIENT HAS BILATER HANDS AND SCROTUM EDEMA. THE SCROTOM IS RED PATIENT SKIN IS FLAKY . PATIENT ON MECH VENT. WITH VENT SETTINGS PER DOCTORS ORDERS .PATIENT SHOWS NO SIGNS OF SOB. NO PAIN. NO ACUTE RESPIRATORY DISTRESS. PATIENT HAS GENO PICC WITH HENRIK RUNNIONG AT 90MCG PER HR. PATIENT HAS R CW HD CATH. . BED LOCKED AND LOWEST POSITION CALL LIGHT WITH IN REACH. ALL SAFETY MEASURE IMPLEMENTED PER HOSPITAL POLICY
--- NOTE | 2019-10-06 07:58 | NUR ---
RT PATIENT REC'D TRACHED ON [facility] VENT WITH ORDERED SETTINGS LEIDA WELL. VENT ALARMS CHECKED + AUDIBLE. AMBU BAG AT HOB Addendum: 10/06/19 at 1412 by LIV MANZANO RT Amended: Links added.
[2019-10-06] MEDS: LACTOBACILLUS RHAMNOSUS GG 1 EACH CAP.SPRINK GT SCH ×2 (09:41→17:13)
[2019-10-06] MEDS: MIDODRINE HCL (5MG) 5 MG TABLET GT SCH ×3 (09:42→17:14)
[2019-10-06] MEDS: TRIAMCINOLONE ACETONIDE 0.1% CR 15 GM TUBE TP SCH ×2 (09:47→21:40)
[2019-10-06] MEDS: HYDROGEL DRESSING 90 GM TUBE TP SCH ×2 (09:49→21:39)
[2019-10-06] MEDS: CLOTRIMAZOLE/BETAMETASONE DIPROPIONATE 15 GM TUBE TP SCH ×2 (09:49→17:24)
[2019-10-06] MEDS: AMMONIUM LACTATE 227 GM BOTTLE TP SCH ×2 (09:49→21:40)
[2019-10-06] MEDS: Z GUARD REMEDY 4 OZ OINT TP SCH ×2 (09:50→21:39)
[2019-10-06] MEDS: ASPIRIN 81 MG TAB.CHEW GT SCH (09:53)
[2019-10-06] MEDS: PROSOURCE / PROSTAT (PYXIS) 30 ML UDC GT SCH ×2 (09:54→17:14)
[2019-10-06] MEDS: PHENYLEPHRINE 80 MG in IV D5W 250 ML IV PRN ×3 (10:16→21:34)
--- NOTE | 2019-10-06 15:00 | NUR ---
PHP MYSQL DEVELOPER - HD PATIENT WAS READY FOR DIALYSES PATIENT HENRIK WAS INCREASE TO COMPENSATE PROCURE. PATIENT HR INCREASE TO 135. HD WAS STOPPED . HENRIK WAS 300 MCG / HR HOUR . PATIENT BP LOW
--- NOTE | 2019-10-06 16:00 | NUR ---
ELECTRICIAN STATION ASSISTANT NOTES - PHARMACY CALLED PHARMACY FOR REPLACEMENT FOR HENRIK
[2019-10-06] MEDS: VITAL AF 1.2 1,000 ML BOTTLE GT PRN (16:09)
--- NOTE | 2019-10-06 16:30 | NUR ---
LIVESTOCK BRANDS INSPECTOR - PHARMACY CALL PHARMACY UPDATE FOR HENRIK - SAID IT IS ON THE WAY.
--- NOTE | 2019-10-06 16:45 | NUR ---
CREDIT RISK MANAGER - PHARMACY CALL PHARMACY AGAIN TO REMIND
--- NOTE | 2019-10-06 18:38 | NUR ---
FOUNDER AND CEO NOTES CLOSING . PATIENT OBTUNDED. PATIENT IS ON MECH VENT WITH SETTINGS PER DOCTORS ORDERS. NO SOB, NO PAIN, NO ACUTE RESPIRATORY DISTRESS. PATIENT IS CURRENTLY ON MONITOR WITH ST. PATIENT IS ON HENRIK PICC @ 260 MCG PATIENTS BP IS 91/ 26 BED LOCKED AND LOWEST POSITION CALL LIGHT WITH IN REACH ALL SAFETY MEASURE IMPLEMENTED PER HOSPITAL POLICY
[2019-10-06] MEDS: COLISTIMETHATE SODIUM 100 MG in IV NS 0.9% 50 ML IV SCH (20:05)
[2019-10-06] MEDS: VANCOMYCIN 500 MG in IV D5W 100 ML IV PRN (20:05)
[2019-10-06] MEDS: INSULIN GLARGINE, 100 UNIT/ML CARTRIDGE SQ SCH (21:49)
--- NOTE | 2019-10-06 22:00 | NUR ---
NOTIFIED STOCK SPECULATOR ELLISON THAT PATIENT'S BLOOD SUGAR LEVEL IS 407. GAVE 20 UNITS INSULIN REGULAR AND 24 UNITS LANTUS PER PROTOCOL. WILL RECHECK IN ONE HOUR. PER SCOT: NOTIFY ME IF THE BLOOD SUGAR IS STILL HIGH. IF NOT CONTINUE WITH SLIDING SCALE.
--- NOTE | 2019-10-06 22:40 | NUR ---
BLOOD SUGAR IS 355. WILL CONTINUE TO MONITOR AND CHECK BLOOD SUGAR AT 0100 AND FOLLOW SLIDING SCALE.
[2019-10-07] VITALS (60 sets, daily range): BP systolic 70–189; BP diastolic 21–144
[2019-10-07] MEDS: INSULIN REGULAR, HUMAN 100 UNIT/ML 3 ML VIAL SQ PRN ×6 (00:11→21:49)
[2019-10-07] MEDS: BLOOD SUGAR DIAGNOSTIC 1 EACH STRIP IN SCH ×6 (00:12→21:39)
[2019-10-07] MEDS: METOCLOPRAMIDE HCL 10 MG/10 ML UDC GT SCH ×4 (00:13→17:05)
[2019-10-07] MEDS: PHENYLEPHRINE 80 MG in IV D5W 250 ML IV PRN (02:28)
[2019-10-07 04:56] LABS: BASOPHILS # (AUTO) 0.2 /CMM (0.0-0.2); BASOPHILS % (AUTO) 0.6 % (0.0-2.0); EOSINOPHILS % (AUTO) 9.7 % (0.0-6.0); HEMATOCRIT 33 % (39-51); HEMOGLOBIN 9.8 g/dL (13.5-17.5); LYMPHOCYTES # (AUTO) 4.2 /CMM (0.8-4.8); LYMPHOCYTES % (AUTO) 15.1 % (20.0-44.0); MEAN CORPUSCULAR HGB CONC 30 g/dl (31.0-36.0); MEAN CORPUSCULAR VOLUME 99 fL (80-96); MONOCYTES # (AUTO) 3.4 /CMM (0.1-1.30); MONOCYTES % (AUTO) 12.4 % (2.0-12.0); NEUTROPHILS # (AUTO) 17.3 /CMM (1.8-8.9); NEUTROPHILS % (AUTO) 62.2 % (43.0-81.0); PLATELET COUNT (AUTO) 324 /CMM (150-450); RED BLOOD CELL COUNT(AUTO) 3.29 MIL/uL (4.5-6.0); WHITE BLOOD COUNT (AUTO) 27.8 K/uL (4.3-11.0)
[2019-10-07 05:10] LABS: CALCIUM, SERUM 11.6 mg/dL (8.5-10.1); CREATININE 3.5 mg/dL (0.6-1.3); MAGNESIUM 2.1 mg/dL (1.8-2.4); POTASSIUM 4.7 mmol/L (3.5-5.1)
[2019-10-07] MEDS: METRONIDAZOLE 500 MG TABLET PO SCH ×3 (05:43→21:43)
--- NOTE | 2019-10-07 06:10 | NUR ---
notified community relations manager Rolf Anthony np that patient has critical blood sugar level of 439 per lab. Also notified that patient accu check was 368 and 20 units given already. received orders to change erin from d5w to normal saline and continue to monitor. read back orders performed and carried out. will continue to monitor.
[2019-10-07 07:03] LABS: D-DIMER 4.08 mg/L(FEU (0.17-0.50)
[2019-10-07] MEDS: ASPIRIN 81 MG TAB.CHEW GT SCH (08:15)
[2019-10-07] MEDS: LACTOBACILLUS RHAMNOSUS GG 1 EACH CAP.SPRINK GT SCH ×2 (08:15→17:05)
[2019-10-07] MEDS: PROSOURCE / PROSTAT (PYXIS) 30 ML UDC GT SCH ×2 (08:16→17:06)
[2019-10-07] MEDS: MIDODRINE HCL (5MG) 5 MG TABLET GT SCH ×3 (08:16→17:05)
[2019-10-07] MEDS: CLOTRIMAZOLE/BETAMETASONE DIPROPIONATE 15 GM TUBE TP SCH ×2 (08:56→17:06)
[2019-10-07] MEDS: TRIAMCINOLONE ACETONIDE 0.1% CR 15 GM TUBE TP SCH ×2 (08:56→21:00)
[2019-10-07] MEDS: HYDROGEL DRESSING 90 GM TUBE TP SCH ×2 (08:56→21:50)
[2019-10-07] MEDS: AMMONIUM LACTATE 227 GM BOTTLE TP SCH ×2 (08:57→21:52)
[2019-10-07] MEDS: Z GUARD REMEDY 4 OZ OINT TP SCH ×2 (09:00→21:52)
[2019-10-07] MEDS: PHENYLEPHRINE 80 MG in IV NS 0.9% 250 ML IV PRN ×3 (09:07→23:32)
--- NOTE | 2019-10-07 12:10 | NUR ---
ICU/RN NOTES DIALYSIS NURSE WAS AT BEDSIDE, PER DIALYSIS NURSE HE IS UNABLE TO DO DIALYSIS DUE TO BP GOING DOWN. HE INFORMED DR. GOOD. WHEN DIALYSIS EQUIPMENT WAS REMOVED, BP WENT BACK TO NORMAL RANGE. PATIENT ABLE TO TOLERATE HENRIK WELL. PATIENT WAS ALSO SEEN AND EVALUATED BY LOPEZ JASSO WITH NO NEW ORDERS AT THIS TIME. PATIENT CONTINUES TO REMAIN IN STABLE CONDITION. WILL CONTINUE TO MONITOR CLOSELY.
[2019-10-07] MEDS: HYDROCORTISONE SOD SUCCINATE 100 MG/2 ML VIAL IV SCH ×2 (14:04→17:05)
--- NOTE | 2019-10-07 16:00 | NUR ---
ICU/RN NOTES RECEIVED A PHONE CALL FROM PHARMACY REGARDING PHOS LEVEL OF THE PATIENT. INFORMED LOUISA, LOPEZ REGARDING THE LEVELS. PER LOUISA,HEALTH UNIT CLERK CONSULT WITH [facility] IF THEY WANT TO REPLACE IT. CALLED AND PAGED DR. GOOD. AWAITING FOR CALL BACK. PATIENT CONTINUES TO REMAIN IN STABLE CONDITION. WILL CONTINUE TO MONITOR CLOSELY.
--- NOTE | 2019-10-07 16:51 | NUR ---
ICU/RN NOTES INFORMED DR. SANCHEZ REGARDING THE RESULTS OF THE FIBRINOGEN LEVEL. PER DR. SANCHEZ SHE IS ON HER WAY TO THE HOSPITAL TO SEE THE PATIENT. PATIENT CONTINUES TO REMAIN IN STABLE CONDITION. WILL CONTINUE TO MONITOR CLOSELY.
--- NOTE | 2019-10-07 19:24 | NUR ---
ICU/RN NOTES PATIENT CONTINUES TO REMAIN IN STABLE CONDITION THROUGHOUT THE SHIFT. PROVIDED COMFORT AND SAFETY. ABLE TO TOLERATE MEDS WELL. TX WAS DONE. PATIENT CARE PROVIDED. ALL NEEDS ANTICIPATED. CALL LIGHT WITHIN REACHED. BED LOCKED AND IN LOWEST POSITION. SAFETY MAINTAINED. REPOSITIONED Q2HRS. ENDORSED TO PM NURSE FOR MARKELL.
--- NOTE | 2019-10-07 19:59 | NUR ---
Trach patient on vent, tolerating well. obtunded, but opens eyes. Picc line clean and dry, on Neosynephrin for pressure support. Flexiseal is clean and dry. Will continue to monitor.
--- NOTE | 2019-10-07 20:06 | NUR ---
RT NOTE [facility] No resp distress or SOB noted. Trach is patent and secured. Sx'd for thick mod amt of pale yellow secretions. Alarms are set and audible, Vent plugged into red outlet. Ambu bag bedside. Addendum: 10/07/19 at 2007 by MANISH DOMINGUEZ RT Amended: Links added.
[2019-10-07] MEDS: COLISTIMETHATE SODIUM 100 MG in IV NS 0.9% 50 ML IV SCH (20:26)
[2019-10-07] MEDS ORDERED: INSULIN GLARGINE, 100 UNIT/ML CARTRIDGE SQ SCH (22:00)
[2019-10-08] VITALS (54 sets, daily range): BP systolic 88–146; BP diastolic 28–94
[2019-10-08] MEDS: METOCLOPRAMIDE HCL 10 MG/10 ML UDC GT SCH ×4 (00:32→17:25)
[2019-10-08] MEDS: BLOOD SUGAR DIAGNOSTIC 1 EACH STRIP IN SCH ×6 (00:37→21:50)
[2019-10-08] MEDS: INSULIN REGULAR, HUMAN 100 UNIT/ML 3 ML VIAL SQ PRN ×6 (00:39→21:54)
[2019-10-08] MEDS: METRONIDAZOLE 500 MG TABLET PO SCH ×3 (05:30→21:37)
--- NOTE | 2019-10-08 05:45 | NUR ---
notified aviation operations specialist Rolf Anthony NP for blood sugar level of 420 and gave 20 units Insulin per protocol. No new orders. will continue to monitor.
--- NOTE | 2019-10-08 07:26 | NUR ---
RN NOTE: Received patient in bed, obtunded with the ability to spontaneously open his eyes and reacted with tactile stimulation. HOB elevated. On contact isolation for the sacral wound. Breathing even and unlabored and was saturating 95-100% with current vent setting. Patient's (R) UA PICC line noted intact and patent with NS TKO was infusing. Per septic pump truck driver nurse Riky, the lab was not able to draw blood early this morning and will call laboratory to follow-up. Flexiseal was intact and noted with liquid brown stool. Anuric. On hemodialysis and (R) chest wall HD catheter was noted intact with dry dressing. GT feeding of Vital AF 1.2 @40ml/hr was provided per MD's order. No residual noted. Per septic pump truck driver report, the patient was off Neosynephrine since 0400 this morning. Will monitor patient's blood pressure and glucose within the day. Bed alarmed and locked at all times. Needs anticipated.
--- NOTE | 2019-10-08 07:42 | NUR ---
RN NOTE: Called and reminded the lab rattan worker regarding the patient's blood draw in the morning.
[2019-10-08] MEDS: VITAL AF 1.2 1,000 ML BOTTLE GT PRN (08:09)
[2019-10-08] MEDS: PROSOURCE / PROSTAT (PYXIS) 30 ML UDC GT SCH ×2 (08:48→16:19)
[2019-10-08] MEDS: ASPIRIN 81 MG TAB.CHEW GT SCH (08:49)
[2019-10-08] MEDS: LACTOBACILLUS RHAMNOSUS GG 1 EACH CAP.SPRINK GT SCH ×2 (08:49→16:24)
[2019-10-08] MEDS: MIDODRINE HCL (5MG) 5 MG TABLET GT SCH ×3 (08:49→16:24)
[2019-10-08] MEDS: HYDROCORTISONE SOD SUCCINATE 100 MG/2 ML VIAL IV SCH ×3 (08:49→16:24)
[2019-10-08] MEDS: HYDROGEL DRESSING 90 GM TUBE TP SCH ×2 (08:50→21:49)
[2019-10-08] MEDS: CLOTRIMAZOLE/BETAMETASONE DIPROPIONATE 15 GM TUBE TP SCH ×2 (08:51→16:21)
[2019-10-08] MEDS: VITAMINS A AND D 56.7 GM TUBE TP PRN (08:51)
[2019-10-08] MEDS: AMMONIUM LACTATE 227 GM BOTTLE TP SCH ×2 (08:52→21:48)
[2019-10-08 09:37] LABS: BASOPHILS # (AUTO) 0.1 /CMM (0.0-0.2); BASOPHILS % (AUTO) 0.2 % (0.0-2.0); EOSINOPHILS % (AUTO) 0.1 % (0.0-6.0); HEMATOCRIT 29 % (39-51); LYMPHOCYTES # (AUTO) 1.5 /CMM (0.8-4.8); LYMPHOCYTES % (AUTO) 4.5 % (20.0-44.0); MEAN CORPUSCULAR HGB CONC 31 g/dl (31.0-36.0); MEAN CORPUSCULAR VOLUME 97 fL (80-96); MONOCYTES % (AUTO) 5.9 % (2.0-12.0); NEUTROPHILS # (AUTO) 30.4 /CMM (1.8-8.9); NEUTROPHILS % (AUTO) 89.3 % (43.0-81.0); PLATELET COUNT (AUTO) 295 /CMM (150-450); RED BLOOD CELL COUNT(AUTO) 3.04 MIL/uL (4.5-6.0)
[2019-10-08 09:45] LABS: WHITE BLOOD COUNT (AUTO) 34.1 K/uL (4.3-11.0)
[2019-10-08] MEDS: Z GUARD REMEDY 4 OZ OINT TP SCH ×2 (09:56→21:48)
[2019-10-08] MEDS: TRIAMCINOLONE ACETONIDE 0.1% CR 15 GM TUBE TP SCH ×2 (09:56→21:48)
[2019-10-08 09:57] LABS: CALCIUM, SERUM 11.3 mg/dL (8.5-10.1); CREATININE 3.6 mg/dL (0.6-1.3); MAGNESIUM 2.1 mg/dL (1.8-2.4); PHOSPHORUS 1.8 mg/dL (2.5-4.9); POTASSIUM 5.7 mmol/L (3.5-5.1)
--- NOTE | 2019-10-08 10:02 | NUR ---
RN NOTE: Reported to Casie Haile NP regarding the WBC 34.1 and glucose 428. LOPEZ Jason was aware of the blood glucose at 0900 of 380. The current sliding scale and insulin orders were relayed to LOPEZ Jason. Per LOPEZ Jason she will review the chart once she makes her round today. No new order given at this time.
[2019-10-08 10:44] LABS: BAND % (MANUAL) 4 % (0.0-5.0); LYMPHOCYTES % (MANUAL) 1 % (16-48); MONOCYTES % (MANUAL) 8 % (0-11.0); NEUTROPHILS % (MANUAL) 87 (42-76)
[2019-10-08] MEDS ORDERED: MISCELLANEOUS MED 1 EA EA XX ONE (12:00)
[2019-10-08] MEDS ORDERED: VANCOMYCIN 500 MG in IV NS 0.9% 100 ML IV PRN (12:05)
--- NOTE | 2019-10-08 12:15 | NUR ---
RN NOTE: Casie Haile NP was at the bedside and she was given update regarding the patient's condition including the abnormal labs (glucose, WBC and potassium) andd off pressor since 0400 this morning. Per LOPEZ Jason continue the current sliding scale order for the patient and she ordered pharmacy to switch the IV Vancomycin and Amikacin from D5 to NS and increased the Lantus order at nighttime. No further order was given. Called and spoke with nelson Townsend and she was informed about these orders from the hospitalist. Will continue to monitor the patient's glucose.
[2019-10-08] MEDS ORDERED: NEUTRA PHOS 1 POWD.PACKET GT ONE (12:30)
--- NOTE | 2019-10-08 16:24 | NUR ---
RT NOTE PT RECEIVED TRACHED ON MECHANICAL VENTILATION. AMBU BAG @ BEDSIDE. SX DONE, TRACH SECURED AND PATENT. NO RESP DISTRESS NOTED AT THIS TIME. WILL MONITOR T/O SHIFT. Addendum: 10/08/19 at 1626 by MARCIA YOUNG RT Amended: Links added.
--- NOTE | 2019-10-08 19:00 | NUR ---
RN OPENING NOTES: PATIENT IN BED, OBTUNDED BUT RESPONSIVE WITH OPENING HIS EYES SPONTANEOUSLY. ON GTF, NO RESIDUALS, HOB ELEVATED. ON CONTACT ISOLATION FOR SACRAL WOUND. ON VENT TRACH, TOLERATING WELL. NO RESPIRATORY DISTRESS. GENO PICC LINE INTACT, PATENT, AND FLUSHING WELL. TKO INFUSING. ON FLEXISEAL, DRAINING BROWN LIQUID STOOLS. (R) CHEST WALL HD CATHETER INTACT WITH DRY DRESSING IN PLACE. CALL LIGHT PLACED WITHIN REACH. WILL CONT. TO MONITOR FOR CHANGES.
--- NOTE | 2019-10-08 19:09 | NUR ---
RN NOTE: Bedside report was given to GARRY Sanders for continuity of care. Patient remained to be off the Neosynephrine the whole day and blood pressure has been within normal limit >90mmHg. No hemodialysis today. Relayed to GARRY Sanders to monitor the patient's blood glucose.
[2019-10-08] MEDS: COLISTIMETHATE SODIUM 100 MG in IV NS 0.9% 50 ML IV SCH (20:57)
[2019-10-08] MEDS: INSULIN GLARGINE, 100 UNIT/ML CARTRIDGE SQ SCH (21:55)
--- NOTE | 2019-10-08 22:46 | NUR ---
RN NOTE: PATIENT NOTED WITH INITIAL BS 432. REPEATED BS CHECK, 472. INSULIN ORDERED ADMINISTERED. SCOT MARROQUIN MADE AWARE. NO NEW ORDERS.
[2019-10-09] VITALS (24 sets, daily range): BP systolic 93–148; BP diastolic 36–89
[2019-10-09] MEDS: METOCLOPRAMIDE HCL 10 MG/10 ML UDC GT SCH ×4 (00:50→17:23)
[2019-10-09] MEDS: INSULIN REGULAR, HUMAN 100 UNIT/ML 3 ML VIAL SQ PRN ×6 (01:06→21:27)
[2019-10-09] MEDS: BLOOD SUGAR DIAGNOSTIC 1 EACH STRIP IN SCH ×6 (01:06→21:09)
--- NOTE | 2019-10-09 01:17 | NUR ---
RN NOTE: PATIENT NOTED WITH BS 492 AT 0100. INSULIN ORDERED ADMINISTERED. BUFFY ELLISON NP MADE AWARE. WILL CONT. TO MONITOR FOR CHANGES.
[2019-10-09 05:07] LABS: BASOPHILS % (AUTO) 0.1 % (0.0-2.0); HEMATOCRIT 30 % (39-51); HEMOGLOBIN 9.1 g/dL (13.5-17.5); LYMPHOCYTES # (AUTO) 1.7 /CMM (0.8-4.8); LYMPHOCYTES % (AUTO) 4.7 % (20.0-44.0); MEAN CORPUSCULAR HGB CONC 31 g/dl (31.0-36.0); MEAN CORPUSCULAR VOLUME 99 fL (80-96); MONOCYTES # (AUTO) 2.1 /CMM (0.1-1.30); MONOCYTES % (AUTO) 5.8 % (2.0-12.0); NEUTROPHILS % (AUTO) 89.4 % (43.0-81.0); PLATELET COUNT (AUTO) 297 /CMM (150-450); RED BLOOD CELL COUNT(AUTO) 2.96 MIL/uL (4.5-6.0)
[2019-10-09 05:34] LABS: WHITE BLOOD COUNT (AUTO) 35.8 K/uL (4.3-11.0)
[2019-10-09 05:49] LABS: CALCIUM, SERUM 11.2 mg/dL (8.5-10.1); CREATININE 3.9 mg/dL (0.6-1.3); MAGNESIUM 2.2 mg/dL (1.8-2.4); POTASSIUM 5.6 mmol/L (3.5-5.1)
[2019-10-09 05:52] LABS: LYMPHOCYTES % (MANUAL) 7 % (16-48); MONOCYTES % (MANUAL) 3 % (0-11.0); NEUTROPHILS % (MANUAL) 90 (42-76)
[2019-10-09 05:58] LABS: PLATELET COUNT (AUTO) 297 /CMM (150-450)
[2019-10-09 05:59] LABS: D-DIMER 2.82 mg/L(FEU (0.17-0.50)
[2019-10-09] MEDS: METRONIDAZOLE 500 MG TABLET PO SCH ×3 (06:07→20:43)
--- NOTE | 2019-10-09 06:21 | NUR ---
RN NOTE: RELAYED CRITICAL LAB RESULTS WBC 35.8, BUN 118, AND BS 519 TO BUFFY ELLISON NP. NO NEW ORDERS AT THIS TIME. INSULIN ORDERED GIVEN. WILL CONT. TO MONITOR FOR CHANGES.
--- NOTE | 2019-10-09 07:15 | NUR ---
ICU/RN AM SHIFT INITIAL NOTES RECEIVED PT ASLEEP IN BED, PT OBTUNDED, OCCASIONALLY OPEN EYES. NO GRIMACING OF ACUTE CHANGE OF CONDITION NOTED. VENT DEPENDENT WITH RATES SET PRESCRIBED: AC 18, TV 500, FIO2% 40 & PEEP 0. RESPIRATIONS EVEN & UNLABORED, SATURATING @ 100%, LUNG SOUNDS CLEAR, SUCTIONED FOR AIRWAY CLEARANCE. ON TELE MONITORING, SINUS TACHY WITH PVCs, HR 112. PICC LINE INTACT, FLUSHED, PATENT WITH NO S/S OF INFECTION. RIGHT CHEST WALL HD CATHETER INTACT AND CLEAN. GTF ON GOING @ 40CC/HR, NO GASTRIC RESIDUAL NOTED, FLUSHED, PATENT. RECTAL TUBE INTACT WITH BROWN LIQUID FECAL OUTPUT. PT NOTED WITH GENERALIZED EDEMA. PT IS COMFORTABLE, SCHEDULED FOR DIALYSIS TODAY. CL WITHIN REACHED, SAFETY MAINTAINED AND ISOLATION OBSERVED.
--- NOTE | 2019-10-09 07:15 | NUR ---
RN CLOSING NOTES: PATIENT IN BED, OBTUNDED BUT RESPONSIVE WITH OPENING HIS EYES SPONTANEOUSLY. ON GTF, NO RESIDUALS, HOB ELEVATED. ON CONTACT ISOLATION FOR SACRAL WOUND. ON VENT TRACH, TOLERATING WELL. IN NO ACUTE DISTRESS. ENDORSED TO AM SHIFT NURSE FOR CONTINUITY OF CARE.
[2019-10-09] MEDS: PROSOURCE / PROSTAT (PYXIS) 30 ML UDC GT SCH ×2 (09:09→17:23)
[2019-10-09] MEDS: HYDROCORTISONE SOD SUCCINATE 100 MG/2 ML VIAL IV SCH ×3 (09:10→17:23)
[2019-10-09] MEDS: INSULIN GLARGINE, 100 UNIT/ML CARTRIDGE SQ SCH ×2 (09:13→21:28)
[2019-10-09] MEDS: ASPIRIN 81 MG TAB.CHEW GT SCH (09:14)
[2019-10-09] MEDS: LACTOBACILLUS RHAMNOSUS GG 1 EACH CAP.SPRINK GT SCH ×2 (09:14→17:23)
[2019-10-09] MEDS: MIDODRINE HCL (5MG) 5 MG TABLET GT SCH ×3 (09:15→17:24)
[2019-10-09] MEDS: TRIAMCINOLONE ACETONIDE 0.1% CR 15 GM TUBE TP SCH ×2 (09:15→20:43)
[2019-10-09] MEDS: AMMONIUM LACTATE 227 GM BOTTLE TP SCH ×2 (09:16→20:43)
[2019-10-09] MEDS: HYDROGEL DRESSING 90 GM TUBE TP SCH ×2 (09:16→21:19)
[2019-10-09] MEDS: CLOTRIMAZOLE/BETAMETASONE DIPROPIONATE 15 GM TUBE TP SCH ×2 (09:16→17:24)
[2019-10-09] MEDS: Z GUARD REMEDY 4 OZ OINT TP SCH ×2 (09:18→21:19)
--- NOTE | 2019-10-09 09:56 | NUR ---
ICU/RN HD TX DIALYSIS TX BEGAN, ON GOING MONITORING. Addendum: 10/09/19 at 1152 by RITCHIE PEREA RN ADDENDUM: PT TOLERATED TX, REMOVED 1 LITER. MONITORING CONTINUED.
[2019-10-09] MEDS ORDERED: VANCOMYCIN 1 GM in IV D5W 250 ML IV ONE (11:00)
--- NOTE | 2019-10-09 11:52 | NUR ---
ICU/RN ROUNDS - LOPEZ JASSO UPDATED PT'S CONDITION. PT SEEN & EXAMINED BY LOPEZ JASSO, WITH VERBAL ORDER RECEIVED TO DOWNGRADE PT TO [facility]. NOTED, CHARGE NURSE AWARE.
--- NOTE | 2019-10-09 12:38 | NUR ---
ICU/RN PROAMANTINE PT GIVEN PROAMANTINE ORDERED, BP IS 119/67, INSTEAD OF 1174/61.
[2019-10-09] MEDS: VITAL AF 1.2 1,000 ML BOTTLE GT PRN (15:13)
--- NOTE | 2019-10-09 15:48 | NUR ---
ICU/RN ROUNDS PT SUCTIONED AND REPOSITIONED. NO ACUTE CHANGE OF CONDITION. MONITORING CONTINUED.
[2019-10-09] MEDS: AMIKACIN 300 MG in IV NS 0.9% 100 ML IV PRN (17:24)
--- NOTE | 2019-10-09 19:08 | NUR ---
ICU/RN AM SHIFT END NOTES NO ACUTE CHANGE OF CONDITION NOTED DURING THE SHIFT. ALL NEEDS MET. PT ENDORSED TO PM SHIFT NURSE TO CONTINUE CARE. CL WITHIN REACHED, SAFETY MAINTAINED AND ISOLATION OBSERVED.
--- NOTE | 2019-10-09 19:30 | NUR ---
[facility] OVERFLOW - INITIAL SHIFT NOTES RECEIVED PATIENT IN BED, OBTUNDED AT BASELINE. TRACH SHILEY 8, ON MECHANICAL VENTILATION, TOLERATING WELL, FREE FROM ANY SIGNS AND SYMPTOMS OF ACUTE RESPIRATORY DISTRESS. BEDSIDE TELEMETRY MONITORING READS SINUS TACHYCARDIA WITH OCCASIONAL PVCs. GENO PICC PATENT AND INTACT, NO BLOOD RETURN, BUT FLUSHES WELL, FREE FROM ANY SIGNS AND SYMPTOMS OF INFILTRATION OR PHLEBITIS. RIGHT CHEST WALL HD ACCESS, DRESSING CLEAN/DRY/INTACT, NO BLEEDING NOTED AT SITE. PATIENT TO BE TRANSFERRED TO [facility] WHEN BED AVAILABLE
[2019-10-09] MEDS: COLISTIMETHATE SODIUM 100 MG in IV NS 0.9% 50 ML IV SCH (20:42)
[2019-10-10] VITALS (12 sets, daily range): BP systolic 80–122; BP diastolic 27–72
--- NOTE | 2019-10-10 | NUR ---
RN NOTES [facility] BED, ROOM 102. WILL TRANSFER WHEN ROOM READY
[2019-10-10] MEDS: BLOOD SUGAR DIAGNOSTIC 1 EACH STRIP IN SCH ×6 (00:35→20:39)
[2019-10-10] MEDS: METOCLOPRAMIDE HCL 10 MG/10 ML UDC GT SCH ×4 (00:35→17:06)
[2019-10-10] MEDS: INSULIN REGULAR, HUMAN 100 UNIT/ML 3 ML VIAL SQ PRN ×6 (00:40→20:43)
--- NOTE | 2019-10-10 02:00 | NUR ---
RN NOTES RECEIVED CALL FROM PLASTIC MANAGER. TRANSFER WILL BE AT 6:30AM TO [facility] ROOM 102. WILL CONTINUE TO CLOSELY MONITOR THE PATIENT. NO ACUTE DISTRESS NOTED AT THIS TIME
[2019-10-10] MEDS: METRONIDAZOLE 500 MG TABLET PO SCH ×3 (04:33→20:26)
[2019-10-10 04:56] LABS: BASOPHILS # (AUTO) 0.1 /CMM (0.0-0.2); BASOPHILS % (AUTO) 0.2 % (0.0-2.0); HEMATOCRIT 28 % (39-51); HEMOGLOBIN 8.4 g/dL (13.5-17.5); LYMPHOCYTES # (AUTO) 1.9 /CMM (0.8-4.8); LYMPHOCYTES % (AUTO) 6.2 % (20.0-44.0); MEAN CORPUSCULAR HGB CONC 31 g/dl (31.0-36.0); MEAN CORPUSCULAR VOLUME 97 fL (80-96); MONOCYTES # (AUTO) 1.9 /CMM (0.1-1.30); MONOCYTES % (AUTO) 6.2 % (2.0-12.0); NEUTROPHILS # (AUTO) 27.2 /CMM (1.8-8.9); NEUTROPHILS % (AUTO) 87.4 % (43.0-81.0); PLATELET COUNT (AUTO) 297 /CMM (150-450); RED BLOOD CELL COUNT(AUTO) 2.86 MIL/uL (4.5-6.0)
[2019-10-10 05:21] LABS: CALCIUM, SERUM 10.2 mg/dL (8.5-10.1); CREATININE 3.3 mg/dL (0.6-1.3); POTASSIUM 4.3 mmol/L (3.5-5.1)
[2019-10-10 05:44] LABS: WHITE BLOOD COUNT (AUTO) 31.1 K/uL (4.3-11.0)
[2019-10-10] MEDS ORDERED: VANCOMYCIN 500 MG in IV NS 0.9% 100 ML IV PRN (06:00)
[2019-10-10 06:22] LABS: LYMPHOCYTES % (MANUAL) 7 % (16-48); MONOCYTES % (MANUAL) 8 % (0-11.0); NEUTROPHILS % (MANUAL) 85 (42-76)
--- NOTE | 2019-10-10 06:30 | NUR ---
0695 BEDSIDE REPORT RECEIVED FROM HORSERADISH MAKER ALEJANDRO WITH QUESTIONS ANSWERED.
--- NOTE | 2019-10-10 06:30 | NUR ---
RN NOTES - TRANSFER TO [facility] PATIENT TRANSFERRED TO [facility] WITH 2 RNs AND RT VIA [facility]S TRANSPORT. PATIENT TOLERATED TRANSFER WELL, BEDSIDE REPORT GIVEN TO NURSE FRANCISCO FOR CONTINUITY OF CARE. VOICE MESSAGE LEFT WITH PATIENT'S DAUGHTER REQUESTED TO NOTIFY REGARDING TRANSFER.
--- NOTE | 2019-10-10 06:35 | NUR ---
0635 RECEIVED FROM ICU 59 YEAR OLD MALE VIA BED FOR TRANSFER OF CARE. PATIENT VENT DEPENDENT WITH TRACHEOSTOMY INTACT AND SECURED AT MIDLINE. CONNECTED TO TELE MONITOR. SINUS TACHYCARDIA IN THE 100S. PATIENT RESPONSIVE TO TACTILE STIMULI. PEG TUBE INTACT, WITH DRY STOMA NOTED. FLEXI SEAL IN PLACE AND PATENT. ADMISSION CARE RENDERED. NO SIGNS OF RESPIRATORY DISTRESS NOTED. VS STABLE FOLLOWS BP-132/6, HR 99, RR 24, TEMP 98.2, O2 SAT 99% ON 40% FIO2. KEPT COMFORTABLE. CALL LIGHT PLACED WITHIN REACH.
--- NOTE | 2019-10-10 07:28 | NUR ---
[facility] RN OPENING NOTE RECEIVED BEDSIDE REPORT. PATIENT VENT DEPENDENT WITH TRACHEOSTOMY INTACT AND SECURED AT MIDLINE, TOLERATING VENT SETTINGS WELL, NO SIGNS OF RESPIRATORY DISTRESS NOTED. PATIENT RESPONSIVE TO TACTILE STIMULI. PEG TUBE INTACT. RIGHT UPPER ARM PICCLINE INTACT, PATENT. RIGHT CHEST WALL HD CATH NOTED. FLEXI SEAL IN PLACE AND PATENT. BED IN LOW POSITION, LOCKED, CALL LIGHT WITHIN REACH.
[2019-10-10] MEDS: INSULIN GLARGINE, 100 UNIT/ML CARTRIDGE SQ SCH (07:46)
[2019-10-10] MEDS: ASPIRIN 81 MG TAB.CHEW GT SCH (08:23)
[2019-10-10] MEDS: HYDROCORTISONE SOD SUCCINATE 100 MG/2 ML VIAL IV SCH ×3 (08:23→16:20)
[2019-10-10] MEDS: LACTOBACILLUS RHAMNOSUS GG 1 EACH CAP.SPRINK GT SCH ×2 (08:23→16:20)
[2019-10-10] MEDS: MIDODRINE HCL (5MG) 5 MG TABLET GT SCH ×3 (08:24→16:20)
[2019-10-10] MEDS: PROSOURCE / PROSTAT (PYXIS) 30 ML UDC GT SCH ×2 (08:24→16:20)
[2019-10-10] MEDS: TRIAMCINOLONE ACETONIDE 0.1% CR 15 GM TUBE TP SCH ×2 (08:25→20:26)
[2019-10-10] MEDS: CLOTRIMAZOLE/BETAMETASONE DIPROPIONATE 15 GM TUBE TP SCH ×2 (08:26→16:50)
[2019-10-10] MEDS: Z GUARD REMEDY 4 OZ OINT TP SCH ×2 (08:27→20:27)
[2019-10-10] MEDS: AMMONIUM LACTATE 227 GM BOTTLE TP SCH ×2 (08:27→20:27)
[2019-10-10] MEDS: HYDROGEL DRESSING 90 GM TUBE TP SCH ×2 (08:28→20:27)
[2019-10-10] MEDS: VITAL AF 1.2 1,000 ML BOTTLE GT PRN (13:16)
--- NOTE | 2019-10-10 13:34 | NUR ---
Family Contact: Per Joseph CAMPOS request Jet Inspector called the patients , Janet Bravo [phone] to schedule Bioethics meeting with family for today. Janet became agitated as she stated, I couldnt tell you what time I can be at the hospital, my job schedule is unpredictable and I may get there at 7pm, 9 pm or 11 pm. Janet expressed that anything that [facility] wants to discuss they may communicate over the phone. SW informed Janet we do not discuss important matters over the phone. SW stressed the importance of discussing the patient's plan of care, being thoroughly informed as a responsible green party and making an informed decision about the pt.'s care. Janet expressed understanding and became tearful as she expressed "this is a very stressful situation". SW validated Janet's experience. RADHA asked Janet if SW can call her back at 3:30 pm to confirm if family can meet today. SW communicated to Janet if family cannot meet today then we will plan to meet sometime this week. Janet hesitantly agreed to plan. RADHA updated Carlos Alberto CAMPOS of above stated information. SW will follow up as needed.
--- NOTE | 2019-10-10 18:42 | NUR ---
RT END OF THE SHIFT REPORT; PT 59 Y OLD MALE REC. @0700 AM TRACH'D ON VENT WITH NOTED SETTINGS, VENT PLUGGED INTO RED OUT LET AND ALARMS ARE SET AND FUNCTIONAL. AMBU BAG AT THE BEDSIDE. HME CHANGED, EDGE DRUMMER DONE EQUAL CHEST RISE NOTED, B/S BILATERALLY RHONCHI AND SUX'D FOR LARGE AMT. YELLOW SECRETIONS, NO DISTRESS NOTED T/O DAY AND LEIDA. VENT WITH NOTED SETTINGS, NO CHANGES. PT. STABLE AND WILL GIVE REPORT TO PM SHIFT. Addendum: 10/10/19 at 1845 by SHARMILA PERALES RT Amended: Links added.
[2019-10-10] MEDS: COLISTIMETHATE SODIUM 100 MG in IV NS 0.9% 50 ML IV SCH (20:23)
[2019-10-10] MEDS ORDERED: INSULIN GLARGINE, 100 UNIT/ML CARTRIDGE SQ SCH (22:00)
[2019-10-11] VITALS (8 sets, daily range): BP systolic 100–141; BP diastolic 25–70
[2019-10-11] MEDS: METOCLOPRAMIDE HCL 10 MG/10 ML UDC GT SCH ×3 (00:30→12:48)
[2019-10-11] MEDS: BLOOD SUGAR DIAGNOSTIC 1 EACH STRIP IN SCH ×6 (00:30→21:53)
[2019-10-11] MEDS: INSULIN REGULAR, HUMAN 100 UNIT/ML 3 ML VIAL SQ PRN ×5 (00:32→21:59)
--- NOTE | 2019-10-11 02:34 | NUR ---
RT NOTE Pt rec'd trached on [facility] vent on AC mode. No resp distress or SOB noted. Trach is patent and secured. Sx'd for thick mod amt of yellow secretions. Alarms are set and audible, Vent plugged into red outlet. Ambu bag bedside. Addendum: 10/11/19 at 0235 by MANISH DOMINGUEZ RT Amended: Links added.
[2019-10-11] MEDS: METRONIDAZOLE 500 MG TABLET PO SCH ×3 (05:07→21:50)
[2019-10-11 06:24] LABS: BASOPHILS % (AUTO) 0.1 % (0.0-2.0); HEMATOCRIT 28 % (39-51); HEMOGLOBIN 8.9 g/dL (13.5-17.5); LYMPHOCYTES # (AUTO) 2.4 /CMM (0.8-4.8); LYMPHOCYTES % (AUTO) 8.8 % (20.0-44.0); MEAN CORPUSCULAR HGB CONC 32 g/dl (31.0-36.0); MEAN CORPUSCULAR VOLUME 96 fL (80-96); MONOCYTES # (AUTO) 2.2 /CMM (0.1-1.30); MONOCYTES % (AUTO) 8.1 % (2.0-12.0); NEUTROPHILS # (AUTO) 22.8 /CMM (1.8-8.9); PLATELET COUNT (AUTO) 355 /CMM (150-450); RED BLOOD CELL COUNT(AUTO) 2.94 MIL/uL (4.5-6.0); WHITE BLOOD COUNT (AUTO) 27.4 K/uL (4.3-11.0)
--- NOTE | 2019-10-11 06:31 | NUR ---
PROVIDED SAFETY AND COMFORT TO PT THROUGHOUT SHIFT, ALL DUE MEDS GIVEN. TURNED AND REPOSITIONED PT EVERY 2 HOURS THROUGHOUT SHIFT. WILL ENDORSE TO AM NURSE.
[2019-10-11 06:59] LABS: POTASSIUM 4.7 mmol/L (3.5-5.1)
[2019-10-11 07:00] LABS: CALCIUM, SERUM 10.1 mg/dL (8.5-10.1); CREATININE 4.1 mg/dL (0.6-1.3); MAGNESIUM 2.4 mg/dL (1.8-2.4); PHOSPHORUS 3.6 mg/dL (2.5-4.9)
--- NOTE | 2019-10-11 07:00 | NUR ---
RN AM NOTE PATIENT IS OBTUNDED. GTUBE FEEDING RUNING NO RESIDULA. RT UPPER ARM PICC LINE FLUSHING WELL. HD CATH PATENT AND TO BE DIALIZED TODAY. ASSESS VANCO AND AMIKACYN TROPH TODAY BEFORE GIVING. MULTIPLE WOUNDS NOTED KEEP CLEAN AND DRY. FLEXISEAL PATENT AND DRAINING LIQUIDS BROWN GREEN STOOL. ISOLATION PRECATTIIONS IN PLACE
[2019-10-11] MEDS: LACTOBACILLUS RHAMNOSUS GG 1 EACH CAP.SPRINK GT SCH ×2 (08:01→16:00)
[2019-10-11] MEDS: Z GUARD REMEDY 4 OZ OINT TP SCH ×2 (08:01→21:54)
[2019-10-11] MEDS: MIDODRINE HCL (5MG) 5 MG TABLET GT SCH ×3 (08:01→16:00)
[2019-10-11] MEDS: ASPIRIN 81 MG TAB.CHEW GT SCH (08:01)
[2019-10-11] MEDS: HYDROCORTISONE SOD SUCCINATE 100 MG/2 ML VIAL IV SCH ×3 (08:02→16:00)
[2019-10-11] MEDS: TRIAMCINOLONE ACETONIDE 0.1% CR 15 GM TUBE TP SCH ×2 (08:02→21:55)
[2019-10-11] MEDS: CLOTRIMAZOLE/BETAMETASONE DIPROPIONATE 15 GM TUBE TP SCH ×2 (08:03→16:02)
[2019-10-11] MEDS: AMMONIUM LACTATE 227 GM BOTTLE TP SCH ×2 (08:04→21:55)
[2019-10-11] MEDS: PROSOURCE / PROSTAT (PYXIS) 30 ML UDC GT SCH ×2 (08:15→16:02)
[2019-10-11] MEDS: HYDROGEL DRESSING 90 GM TUBE TP SCH ×2 (08:16→21:55)
[2019-10-11] MEDS: INSULIN GLARGINE, 100 UNIT/ML CARTRIDGE SQ SCH (08:20)
--- NOTE | 2019-10-11 10:22 | NUR ---
RN NOTE LAB [facility] CALLED CRITICAL LAB VALUE AMIKACIN TROPH 17. RN TO NOTIFY
--- NOTE | 2019-10-11 12:00 | NUR ---
RN NOTE LAB NONI AND LAB FROM HOSPITAL CALLED AND INFORMED RN AURY TROPH IS 30 AND ADOLFO TROPH IS 17. RN WILL NOT PUSH THE IV ATB DUE TO LEVELS. AWARE.
[2019-10-11] MEDS: VITAL AF 1.2 1,000 ML BOTTLE GT PRN (17:12)
--- NOTE | 2019-10-11 17:54 | NUR ---
RN CLOSING NOTE PATIENT OBTUNDED SINUS RHYTHM ON MONITOR. SINUS TACHY W PVE. ANURIC DIALIZED TODAY 0 LITERS OUT. ALL MEDICATION THROUGH GTUBE AND IV FLUSHING WELL AND TOLERATING WELL. WOUND DRESSING CHANGED BY RN CLEAN AND DRY. FLEXISEAL DRAINING WATERING BROWN STOOL. MD SAW PATIENT TODAY. NO NEW ORDERS. CONTINUE HOSPITALIZATION AT THIS TIME. MONITOR AMIKACY AND VANCO TROPH BEFORE ADMINISTERING. ALL SIDE RAILS UP ISOLATION MEASURES IN PLACE. RN SPOKE TO FAMILY ON PHONE UPDATED ON CONDITION. ENDORSE TO NIGHT RN.
--- NOTE | 2019-10-11 19:30 | NUR ---
RN NOTES, RECEIVED PATIENT IN BED WITH EYES SEMI OPEN AT THIS TIME, OBTUNDED , ON MECHANICAL VENTILATOR TOLERATING SETTINGS WELL, NO SOB/NO SIGNS OF RESPIRATORY DISTRESS NOTED, GENO PICC IN PLACED PATENT AND INTACT, GT IN PLACED, VITAL AF GTF INFUSING WELL AT 40CC/HR, AND PATIENT TOLERATING WELL, NO RESIDUAL NOTED AT THIS TIME, NSR WITH HR IN 90S AT THIS TIME, RECTAL TUBE IN PLACED, WITH YELLOWISH STOOL NOTED, BED LOCKED AND IN LOW POSITION, WILL CONTINUE TO MONITOR CLOSELY.
[2019-10-11] MEDS: COLISTIMETHATE SODIUM 100 MG in IV NS 0.9% 50 ML IV SCH (20:31)
[2019-10-11] MEDS ORDERED: INSULIN GLARGINE, 100 UNIT/ML CARTRIDGE SQ SCH (22:00)
--- NOTE | 2019-10-12 00:38 | NUR ---
RT NOTE Pt rec'd trached on [facility] vent on AC mode. No resp distress or sob noted. Trach is patent and secured. Sx'd for thick large amt of thick pale yellow secretions. Alarms are set and audible. Vent plugged into red outlet. Ambu bag bedside. Will continue to monitor closely. Addendum: 10/12/19 at 0038 by MANISH DOMINGUEZ RT Amended: Links added.
[2019-10-12 00:48] VITALS: BP 138/69
[2019-10-12] MEDS: BLOOD SUGAR DIAGNOSTIC 1 EACH STRIP IN SCH ×6 (01:01→21:21)
[2019-10-12] MEDS: INSULIN REGULAR, HUMAN 100 UNIT/ML 3 ML VIAL SQ PRN ×6 (01:04→21:31)
[2019-10-12 04:00] VITALS: BP 131/55
[2019-10-12] MEDS: METRONIDAZOLE 500 MG TABLET PO SCH ×3 (04:22→21:11)
[2019-10-12 06:38] LABS: HEMATOCRIT 28 % (39-51); HEMOGLOBIN 8.8 g/dL (13.5-17.5); LYMPHOCYTES # (AUTO) 2.8 /CMM (0.8-4.8); LYMPHOCYTES % (AUTO) 9.1 % (20.0-44.0); MEAN CORPUSCULAR HGB CONC 32 g/dl (31.0-36.0); MEAN CORPUSCULAR VOLUME 96 fL (80-96); MONOCYTES # (AUTO) 3.2 /CMM (0.1-1.30); MONOCYTES % (AUTO) 10.4 % (2.0-12.0); NEUTROPHILS # (AUTO) 24.7 /CMM (1.8-8.9); NEUTROPHILS % (AUTO) 80.5 % (43.0-81.0); PLATELET COUNT (AUTO) 456 /CMM (150-450); RED BLOOD CELL COUNT(AUTO) 2.87 MIL/uL (4.5-6.0)
[2019-10-12 06:47] LABS: WHITE BLOOD COUNT (AUTO) 30.7 K/uL (4.3-11.0)
[2019-10-12 06:59] LABS: CALCIUM, SERUM 9.4 mg/dL (8.5-10.1); CREATININE 3.4 mg/dL (0.6-1.3); MAGNESIUM 2.2 mg/dL (1.8-2.4); PHOSPHORUS 3.8 mg/dL (2.5-4.9); POTASSIUM 4.6 mmol/L (3.5-5.1)
--- NOTE | 2019-10-12 07:10 | NUR ---
RN NOTES, PATIENT ON MECHANICAL VENTILATOR, NO SOB/NO RESPIRATORY DISTRESS NOTED, NO SIGNIFICANT CHANGE IN CONDITION DURING THE NIGHT, ALL NEEDS ATTENDED, BED LOCKED AND IN LOW POSITION, SIDE RAILS X2, CALL LIGHT WITHIN REACH , HOB AT ALL TIMES, WILL ENDORSE CONTINUITY OF CARE TO ONCOMING NURSE.
--- NOTE | 2019-10-12 07:10 | NUR ---
RN OPENING NOTE PATIENT IS IN BED, OBTUNDED. ON MECHANICAL VENTILATION AND TOLERATING SETTINGS WELL, NO SOB AND NOT IN RESPIRATORY DISTRESS. ON CARDIAC MONITORING SHOWING SINUS RHYTHM. RIGHT UPPER ARM PICC LINE PATENT, CLEAN AND DRY. GTUBE IN PLACE, PATENT AND IN PLACE. WITH FLEXISEAL AND DRAINING SOFT, LIQUID BROWN STOOL. HD CATHETER CLEAN AND DRY. ON CONTACT AND DROPLET ISOLATION PRECAUTION, STAFF AWARE AND COMPLIANCE NOTED. NO PAIN NOTED IN PATIENT. CALL LIGHT IN REACH, SIDE RAILS UP X3. BED LOCKED, LOW AND AT SEMI-HERRERA'S POSITION. NEED ANTICIPATED. WILL CONTINUE TO MONITOR.
[2019-10-12 07:27] LABS: BAND % (MANUAL) 4 % (0.0-5.0); LYMPHOCYTES % (MANUAL) 9 % (16-48); MONOCYTES % (MANUAL) 5 % (0-11.0); NEUTROPHILS % (MANUAL) 82 (42-76)
[2019-10-12] MEDS ORDERED: INSULIN GLARGINE, 100 UNIT/ML CARTRIDGE SQ SCH (07:30)
--- NOTE | 2019-10-12 07:36 | NUR ---
RN NOTES, ENDORSED TO GARRY ROBERTS TO F/U WITH MD, CALLED MD AT 0650 TO REPORT CRITICAL FOR WBC 30.7 THIS MORNING , YESTERDAY 27.4, NO CALL BACK.
[2019-10-12 08:00] VITALS: BP 122/55
[2019-10-12] MEDS: HYDROCORTISONE SOD SUCCINATE 100 MG/2 ML VIAL IV SCH ×3 (09:13→17:45)
[2019-10-12] MEDS: ASPIRIN 81 MG TAB.CHEW GT SCH (09:13)
[2019-10-12] MEDS: MIDODRINE HCL (5MG) 5 MG TABLET GT SCH ×3 (09:13→17:45)
[2019-10-12] MEDS: LACTOBACILLUS RHAMNOSUS GG 1 EACH CAP.SPRINK GT SCH ×2 (09:13→17:44)
[2019-10-12] MEDS: PROSOURCE / PROSTAT (PYXIS) 30 ML UDC GT SCH ×2 (09:14→17:45)
[2019-10-12] MEDS: HYDROGEL DRESSING 90 GM TUBE TP SCH ×2 (09:32→21:08)
[2019-10-12] MEDS: Z GUARD REMEDY 4 OZ OINT TP SCH ×2 (09:32→21:09)
[2019-10-12] MEDS: AMMONIUM LACTATE 227 GM BOTTLE TP SCH ×2 (09:32→21:11)
[2019-10-12] MEDS: CLOTRIMAZOLE/BETAMETASONE DIPROPIONATE 15 GM TUBE TP SCH ×2 (09:32→17:45)
[2019-10-12] MEDS: TRIAMCINOLONE ACETONIDE 0.1% CR 15 GM TUBE TP SCH ×2 (09:33→21:11)
[2019-10-12 12:00] VITALS: BP 112/50
[2019-10-12 16:00] VITALS: BP 123/84
--- NOTE | 2019-10-12 17:16 | NUR ---
RT NOTE Pt rec'd trached on [facility] vent on charted settings. Trach is patent and secured. Sx'd for thick large amt of thick pale yellow secretions. Alarms are set and audible. Vent plugged into red outlet. Ambu bag bedside. No resp distress or sob noted t/o shift. Pt is stable. Will continue to monitor. Addendum: 10/12/19 at 1808 by JUDITH MCCLELLAN RT Amended: Links added.
--- NOTE | 2019-10-12 19:25 | NUR ---
RN CLOSING NOTE: PATIENT STILL IN BED AND OBTUNDED. NO CHANGES NOTED ON SHIFT. WOUND CONSULT WAS DONE. PATIENT REMAINS IN STABLE CONDITION. IV SITE, GTUBE AND FLEXISEAL PATENT. TURNING AND REPOSITIONING DONE Q2H AND QPRN. TREATMENT DONE ORDERED. ISOLATION PRECAUTIONS OBSERVED. NO PAIN NOTED IN PATIENT. CALL LIGHT IN REACH, SIDE RAILS UP X3. BED LOCKED, LOW AND AT SEMI-HERRERA'S POSITION. NEEDS ANTICIPATED. ENDORSED TO ONCOMING SHIFT FOR MARKELL.
--- NOTE | 2019-10-12 19:32 | NUR ---
RN OPENING NOTES RECEIVED PATIENT FROM GARRY PECK. PATIENT AWAKE IN BED, OBTUNDED. ON MECHANICAL VENTILATION AND TOLERATING SETTINGS WELL. NO SIGNS OF RESPIRATORY DISTRESS AND NO SHORTNESS OF BREATH NOTED. TELE READING SHOWING SR HR 99. NO SIGNS OF FACIAL GRIMACING INDICATING PAIN OR DISCOMFORT AT THIS TIME. RIGHT UPPER ARM PICC, INTACT, PATENT, NO SIGNS OF INFECTION/INFILTRATION. NOTED WITH FLEXISEAL. ON CONTACT AND DROPLET ISOLATION PRECAUTION. SAFETY PRECAUTIONS IMPLEMENTED; CALL LIGHT WITHIN REACH, BED LOW, BED LOCKED, BILATERAL UPPER SIDE RAILS UP. WILL CONTINUE TO MONITOR.
[2019-10-12 20:00] VITALS: BP 140/60
--- NOTE | 2019-10-12 20:12 | NUR ---
RECEIVED PT SARAH LERMA 8 ON VENT. NO RESP DISTRESS. PT TOLERATING VENT SETTINGS. SX'D FOR MOD AMT OF THICK YELLOW SECRETIONS. VENT ALARMS SET AND AUDIBLE. TRACH SECURE, CUFF WAREHOUSE TRAINER. AMBU BAG AT BEDSIDE. CONTINUE [facility] VENT SUPPORT. Addendum: 10/12/19 at 2017 by AUDI KOHLI RT Amended: Links added.
[2019-10-12] MEDS: COLISTIMETHATE SODIUM 100 MG in IV NS 0.9% 50 ML IV SCH (20:21)
[2019-10-12] MEDS: INSULIN GLARGINE, 100 UNIT/ML CARTRIDGE SQ SCH (21:31)
[2019-10-13] VITALS: BP 148/63
[2019-10-13] MEDS: BLOOD SUGAR DIAGNOSTIC 1 EACH STRIP IN SCH ×6 (00:49→21:56)
[2019-10-13] MEDS: INSULIN REGULAR, HUMAN 100 UNIT/ML 3 ML VIAL SQ PRN ×4 (00:50→22:02)
[2019-10-13 04:00] VITALS: BP 124/60
[2019-10-13] MEDS: METRONIDAZOLE 500 MG TABLET PO SCH ×3 (05:40→21:48)
--- NOTE | 2019-10-13 06:13 | NUR ---
RN CLOSING NOTES PATIENT CURRENTLY IN BED, OBTUNDED. NO ACUTE CHANGES DURING THE SHIFT. NO SIGNS OF RESPIRATORY DISTRESS, NO SHORTNESS OF BREATH NOTED, RESPIRATIONS EVEN AND UNLABORED. TELE SR HR 96. NO SIGNS OF FACIAL GRIMACING INDICATING PAIN OR DISCOMFORT AT THIS TIME. IV SITE REMAINS IN PLACE, INTACT AND PATENT, NO SIGNS OF INFECTION/INFILTRATION, FLUSHED. GTUBE AND FLEXISEAL REMAIN INTACT AND IN PLACE. TURNING AND REPOSITION DONE EVERY 2 HOURS AND NEEDED. WOUND TREATMENT DONE ORDERED. ISOLATION PRECAUTIONS MAINTAINED THROUGHOUT THE SHIFT. PATIENT KEPT CLEAN, DRY AND COMFORTABLE. ALL NEEDS MET ON SHIFT. ALL DUE MEDS GIVEN ORDERED WITH NO ADVERSE EFFECTS. SAFETY PRECAUTIONS IMPLEMENTED; CALL LIGHT WITHIN REACH, BED LOW, BED LOCKED, BILATERAL UPPER SIDE RAILS UP. WILL ENDORSE TO DAYSHIFT NURSE FOR CONTINUITY OF CARE.
[2019-10-13 06:45] LABS: BASOPHILS % (AUTO) 0.2 % (0.0-2.0); HEMATOCRIT 28 % (39-51); HEMOGLOBIN 8.9 g/dL (13.5-17.5); LYMPHOCYTES # (AUTO) 2.7 /CMM (0.8-4.8); LYMPHOCYTES % (AUTO) 9.8 % (20.0-44.0); MEAN CORPUSCULAR HGB CONC 31 g/dl (31.0-36.0); MEAN CORPUSCULAR VOLUME 96 fL (80-96); MONOCYTES # (AUTO) 2.2 /CMM (0.1-1.30); MONOCYTES % (AUTO) 7.8 % (2.0-12.0); NEUTROPHILS % (AUTO) 82.2 % (43.0-81.0); PLATELET COUNT (AUTO) 526 /CMM (150-450); RED BLOOD CELL COUNT(AUTO) 2.95 MIL/uL (4.5-6.0); WHITE BLOOD COUNT (AUTO) 27.9 K/uL (4.3-11.0)
[2019-10-13 07:12] LABS: CALCIUM, SERUM 9.5 mg/dL (8.5-10.1); CREATININE 3.9 mg/dL (0.6-1.3); MAGNESIUM 2.4 mg/dL (1.8-2.4); PHOSPHORUS 5.1 mg/dL (2.5-4.9); POTASSIUM 5.1 mmol/L (3.5-5.1)
[2019-10-13 08:00] VITALS: BP 117/29
--- NOTE | 2019-10-13 08:03 | NUR ---
teletray operator note patient in bed awake but obtunded , with trach to vent setting as ordered , with flexseal tube in place flushed well on g tube feeding as ordered keep hob elevated at all time ,no residual noted with general edema, keep elevated on pillow as tolerated, rt upper arm picc line in place and flushed well bed in lowest and locked position, trach suction done oral care provided , will cont to monitor closely
[2019-10-13] MEDS: HYDROCORTISONE SOD SUCCINATE 100 MG/2 ML VIAL IV SCH ×3 (08:30→16:59)
[2019-10-13] MEDS: LACTOBACILLUS RHAMNOSUS GG 1 EACH CAP.SPRINK GT SCH ×2 (08:30→16:59)
[2019-10-13] MEDS: ASPIRIN 81 MG TAB.CHEW GT SCH (08:30)
[2019-10-13] MEDS: VITAL AF 1.2 1,000 ML BOTTLE GT PRN (08:33)
[2019-10-13] MEDS: INSULIN GLARGINE, 100 UNIT/ML CARTRIDGE SQ SCH ×2 (08:35→22:04)
[2019-10-13] MEDS: MIDODRINE HCL (5MG) 5 MG TABLET GT SCH ×3 (08:35→16:59)
[2019-10-13] MEDS: PROSOURCE / PROSTAT (PYXIS) 30 ML UDC GT SCH ×2 (08:36→16:59)
[2019-10-13] MEDS: HYDROGEL DRESSING 90 GM TUBE TP SCH ×2 (08:37→20:50)
[2019-10-13] MEDS: CLOTRIMAZOLE/BETAMETASONE DIPROPIONATE 15 GM TUBE TP SCH ×2 (08:37→17:00)
[2019-10-13] MEDS: TRIAMCINOLONE ACETONIDE 0.1% CR 15 GM TUBE TP SCH ×2 (08:37→20:50)
[2019-10-13] MEDS: AMMONIUM LACTATE 227 GM BOTTLE TP SCH ×2 (08:38→20:49)
[2019-10-13] MEDS: Z GUARD REMEDY 4 OZ OINT TP SCH ×2 (08:38→20:49)
--- NOTE | 2019-10-13 09:31 | NUR ---
telesales advisor note on hd at this time
[2019-10-13 12:00] VITALS: BP 119/59
--- NOTE | 2019-10-13 12:32 | NUR ---
television cameraman note hd completed. 1l out bp 110/24 called tp\o pharmacy notified to bring amikacin , stated that will bring, level of amikacin 9.8
[2019-10-13] MEDS: AMIKACIN 300 MG in IV NS 0.9% 100 ML IV PRN (13:40)
--- NOTE | 2019-10-13 14:54 | NUR ---
telephone interceptor operator note central line dressing changed per protocol ,keep clean dry , all needs attended will monitor rt at bedside
[2019-10-13 16:00] VITALS: BP 129/79
--- NOTE | 2019-10-13 18:36 | NUR ---
bank cashier Notes Patient awake and alert in bed but obtunded. Flexi seal in place, patient and flushed well. Trach and vent setting as ordered by MD, tolerated well. HOB elevated and residuals checked, none noted. Patient not in distress. Call light within reach, will continue to monitor.
--- NOTE | 2019-10-13 19:15 | NUR ---
RN OPENING NOTES: RECEIVED BEDSIDE REPORT FROM AM SHIFT NURSE. PATIENT IN BED, OBTUNDED BUT RESPONSIVE WITH OPENING HIS EYES SPONTANEOUSLY. ON GTF, NO RESIDUALS, HOB ELEVATED. ON CONTACT ISOLATION FOR SACRAL WOUND. ON VENT TRACH, TOLERATING CURRENT SETTINGS WELL. NO RESPIRATORY DISTRESS. GENO PICC LINE INTACT, PATENT, AND FLUSHING WELL. TKO INFUSING. HD CATH ON (R) CHEST WALL INTACT WITH DRY DRESSING IN PLACE. ON FLEXISEAL, DRAINING BROWN LIQUID STOOLS. WILL TURN AND REPOSITION Q2H. CALL LIGHT PLACED WITHIN REACH. WILL CONT. TO MONITOR FOR CHANGES.
[2019-10-13 20:00] VITALS: BP 109/60
[2019-10-14] VITALS: BP 127/50
[2019-10-14] MEDS: BLOOD SUGAR DIAGNOSTIC 1 EACH STRIP IN SCH ×6 (01:47→21:00)
[2019-10-14] MEDS: INSULIN REGULAR, HUMAN 100 UNIT/ML 3 ML VIAL SQ PRN ×6 (01:50→22:20)
[2019-10-14] MEDS: VITAL AF 1.2 1,000 ML BOTTLE GT PRN (03:47)
[2019-10-14 04:00] VITALS: BP 103/65
[2019-10-14] MEDS: METRONIDAZOLE 500 MG TABLET PO SCH ×3 (04:53→22:01)
--- NOTE | 2019-10-14 07:15 | NUR ---
RN CLOSING NOTE: PATIENT IN STABLE CONDITION THROUGHOUT THE SHIFT. ENDORSED TO AM SHIFT NURSE FOR CONTINUITY OF CARE.
[2019-10-14] MEDS: INSULIN GLARGINE, 100 UNIT/ML CARTRIDGE SQ SCH ×3 (07:54→22:31)
[2019-10-14 08:00] VITALS: BP 122/46
[2019-10-14] MEDS: LACTOBACILLUS RHAMNOSUS GG 1 EACH CAP.SPRINK GT SCH ×2 (08:20→16:41)
[2019-10-14] MEDS: ASPIRIN 81 MG TAB.CHEW GT SCH (08:20)
[2019-10-14] MEDS: PROSOURCE / PROSTAT (PYXIS) 30 ML UDC GT SCH ×2 (08:21→16:41)
[2019-10-14] MEDS: MIDODRINE HCL (5MG) 5 MG TABLET GT SCH ×3 (08:21→16:41)
[2019-10-14] MEDS: HYDROCORTISONE SOD SUCCINATE 100 MG/2 ML VIAL IV SCH ×3 (08:21→16:42)
[2019-10-14] MEDS: TRIAMCINOLONE ACETONIDE 0.1% CR 15 GM TUBE TP SCH ×2 (08:26→22:07)
[2019-10-14] MEDS: AMMONIUM LACTATE 227 GM BOTTLE TP SCH ×2 (08:26→22:06)
[2019-10-14] MEDS: Z GUARD REMEDY 4 OZ OINT TP SCH ×2 (08:27→22:06)
[2019-10-14] MEDS: HYDROGEL DRESSING 90 GM TUBE TP SCH ×2 (08:28→22:04)
[2019-10-14] MEDS: CLOTRIMAZOLE/BETAMETASONE DIPROPIONATE 15 GM TUBE TP SCH ×2 (08:28→16:43)
[2019-10-14 12:00] VITALS: BP 121/47
[2019-10-14 16:00] VITALS: BP_SYST 121; BP_SYST 125; BP_DIAS 45; BP_DIAS 47
--- NOTE | 2019-10-14 18:40 | NUR ---
TELE/RN CLOSING NOTES PATIENT CONTINUES TO REMAIN IN STABLE CONDITION THROUGHOUT THE SHIFT. PROVIDED COMFORT AND SAFETY. PATIENT WAS ABLE TO TOLERATE FEEDINGS AND MEDS WELL VIA GT. IV ACCESS INTACT AND PATENT. FLUSHING WELL. NO S/S OF INFECTION OR INFILTRATION. HOB ELEVATED AT ALL TIMES. DIALYSIS WAS ALSO DONE THIS MORNING. B/P WAS MAINTAINED WNL. ALL NEEDS ANTICIPATED. CALL LIGHT WITHIN REACHED. BED LOCKED AND IN LOWEST POSITION. WILL CONTINUE TO MONITOR CLOSELY. ENDORSED TO PM NURSE FOR MARKELL.
--- NOTE | 2019-10-14 19:25 | NUR ---
TELE/RN NOTES Patient received in bed, resting comfortably at this time, Awake, open eyes, A/O x0. Breathing even and unlabored. No SOB noted. Trach intact, patent, connected to vent with prescribed settings. Sinus rhythm on monitor. No S/S of pain noted. No facial Grimacing noted. GENO PICC line, intact, patent. G-tube in place, patent, connected to feeding as ordered, No residual noted. HOB elevated to Semi Jean. Rectal tube in place, patent, draining with brownish color liquid stools. Safety maintained, bed at the lowest locked position. Call light within reach. Will continue to monitor as per plan of care.
[2019-10-14 22:00] VITALS: BP 134/52
[2019-10-15] VITALS: BP 134/48
[2019-10-15] MEDS: BLOOD SUGAR DIAGNOSTIC 1 EACH STRIP IN SCH ×6 (00:39→21:45)
[2019-10-15 04:00] VITALS: BP 120/46
[2019-10-15] MEDS: METRONIDAZOLE 500 MG TABLET PO SCH ×3 (05:02→21:48)
[2019-10-15] MEDS: DEXTROSE 50%-WATER 50 ML DISP.SYRIN IV PRN (05:33)
[2019-10-15 06:44] LABS: BASOPHILS % (AUTO) 0.1 % (0.0-2.0); HEMATOCRIT 25 % (39-51); HEMOGLOBIN 7.9 g/dL (13.5-17.5); LYMPHOCYTES # (AUTO) 2.2 /CMM (0.8-4.8); MEAN CORPUSCULAR HGB CONC 32 g/dl (31.0-36.0); MEAN CORPUSCULAR VOLUME 96 fL (80-96); MONOCYTES # (AUTO) 1.8 /CMM (0.1-1.30); MONOCYTES % (AUTO) 10.9 % (2.0-12.0); NEUTROPHILS # (AUTO) 12.9 /CMM (1.8-8.9); PLATELET COUNT (AUTO) 535 /CMM (150-450); RED BLOOD CELL COUNT(AUTO) 2.58 MIL/uL (4.5-6.0)
[2019-10-15 07:00] LABS: CALCIUM, SERUM 8.3 mg/dL (8.5-10.1); CREATININE 2.9 mg/dL (0.6-1.3); MAGNESIUM 1.8 mg/dL (1.8-2.4); PHOSPHORUS 4.6 mg/dL (2.5-4.9); POTASSIUM 3.6 mmol/L (3.5-5.1)
--- NOTE | 2019-10-15 07:07 | NUR ---
TELE/RN NOTES Patient remained in bed, Awake, open eyes, A/O x0. Breathing even and unlabored. No SOB noted. Trach intact, patent, connected to vent with prescribed settings. Sinus rhythm on monitor. No S/S of pain noted. No facial Grimacing noted. GENO PICC line, intact, patent. G-tube in place, patent, connected to feeding as ordered, No residual noted. HOB elevated to Semi Jean. Rectal tube in place, patent, draining with brownish color liquid stools. blood sugar 174 at this time. Safety maintained, bed at the lowest locked position. Call light within reach. Endorse to AM shift nurse for MARKELL.
[2019-10-15] MEDS: INSULIN GLARGINE, 100 UNIT/ML CARTRIDGE SQ SCH ×2 (07:59→21:52)
[2019-10-15 08:00] VITALS: BP_SYST 104; BP_SYST 113; BP_DIAS 35; BP_DIAS 51
[2019-10-15] MEDS: LACTOBACILLUS RHAMNOSUS GG 1 EACH CAP.SPRINK GT SCH ×2 (08:11→16:20)
[2019-10-15] MEDS: ASPIRIN 81 MG TAB.CHEW GT SCH (08:11)
[2019-10-15] MEDS: MIDODRINE HCL (5MG) 5 MG TABLET GT SCH ×3 (08:12→16:20)
[2019-10-15] MEDS: PROSOURCE / PROSTAT (PYXIS) 30 ML UDC GT SCH ×2 (08:12→16:20)
[2019-10-15] MEDS: HYDROCORTISONE SOD SUCCINATE 100 MG/2 ML VIAL IV SCH ×2 (08:12→16:21)
[2019-10-15] MEDS: Z GUARD REMEDY 4 OZ OINT TP SCH ×2 (08:13→21:46)
[2019-10-15] MEDS: HYDROGEL DRESSING 90 GM TUBE TP SCH ×2 (08:13→21:46)
[2019-10-15] MEDS: AMMONIUM LACTATE 227 GM BOTTLE TP SCH ×2 (08:14→21:46)
[2019-10-15] MEDS: CLOTRIMAZOLE/BETAMETASONE DIPROPIONATE 15 GM TUBE TP SCH ×2 (08:14→16:21)
[2019-10-15] MEDS: TRIAMCINOLONE ACETONIDE 0.1% CR 15 GM TUBE TP SCH ×2 (08:15→21:45)
[2019-10-15] MEDS: INSULIN REGULAR, HUMAN 100 UNIT/ML 3 ML VIAL SQ PRN ×4 (08:23→21:55)
[2019-10-15 08:55] LABS: D-DIMER 3.36 mg/L(FEU (0.17-0.50)
[2019-10-15] MEDS: VITAL AF 1.2 1,000 ML BOTTLE GT PRN (09:55)
[2019-10-15 12:00] VITALS: BP_SYST 106; BP_SYST 118; BP_DIAS 43; BP_DIAS 49
[2019-10-15 16:00] VITALS: BP_SYST 110; BP_SYST 121; BP_DIAS 58; BP_DIAS 68
--- NOTE | 2019-10-15 16:03 | NUR ---
TELE/RN NOTES PHARMACY WAS INFORMED ABOUT THE AMIKICIN LEVEL OF 12.6, PATIENT CONTINUES TO REMAIN IN STABLE CONDITION. WILL CONTINUE TO MONITOR CLOSELY.
--- NOTE | 2019-10-15 18:06 | NUR ---
RT END OF THE SHIFT NOTE. PT. 58 Y OLD MALE REC/ @ 0700 AM PT. TRACH'D MURIEL # 8, ON VENT WITH NOTED SETTINGS, WITH NO VENT CHANGES T/O DAY. ALARMS ARE SET AND FUNCTIONAL, EQUAL CHEST RISE NOTED. B/S BILATERALLY RALES AND RHONCHI SUX'S FOR MOD. AMT. OF PALE YELLOWISH THICK SECRETIONS, VENT PLUGGED INTO RED OUT LET, HME CHANGED, WINDOW TRIMMER DONE, PT. REMAIN STABLE. NO CHANGES T/O DAY. PT. LEIDA. WELL AND NO DISTRESS NOTED. TRACH CARE DONE. AMBU BAG AT THE BEDSIDE. REPORT WILL PASS TO PM SHIFT. Addendum: 10/15/19 at 1807 by SHARMILA PERALES RT Amended: Links added.
--- NOTE | 2019-10-15 19:22 | NUR ---
TELE/RN CLOSING NOTES PATIENT CONTINUES TO REMAIN IN STABLE CONDITION THROUGHOUT THE SHIFT. PROVIDED COMFORT AND SAFETY. PATIENT WAS ABLE TO TOLERATE FEEDINGS AND MEDS WELL VIA GT. IV ACCESS INTACT AND PATENT. FLUSHING WELL. NO S/S OF INFECTION OR INFILTRATION. HOB ELEVATED AT ALL TIMES. ALL NEEDS ANTICIPATED. CALL LIGHT WITHIN REACHED. BED LOCKED AND IN LOWEST POSITION. WILL CONTINUE TO MONITOR CLOSELY. ENDORSED TO PM NURSE FOR MARKELL.
[2019-10-15 20:00] VITALS: BP 116/58
--- NOTE | 2019-10-15 22:47 | NUR ---
TELE-1/JEWELRY BENCH WORKER REPORT TO ABHI CASTAÑEDA FOR CONT OF CARE.
--- NOTE | 2019-10-15 22:50 | NUR ---
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 SAFETY PRECAUTIONS RENDERED , ALL NEEDS ATTENDED AT THIS TIME, WILL CONTINUE TO MONITOR AND ATTEND TO NEEDS, ON PUNCH PRESS FEEDER SR 96
[2019-10-16] VITALS: BP 109/69
[2019-10-16] MEDS: BLOOD SUGAR DIAGNOSTIC 1 EACH STRIP IN SCH ×4 (01:02→13:54)
[2019-10-16] MEDS: INSULIN REGULAR, HUMAN 100 UNIT/ML 3 ML VIAL SQ PRN ×3 (01:05→13:54)
[2019-10-16 04:00] VITALS: BP 102/51
[2019-10-16] MEDS: METRONIDAZOLE 500 MG TABLET PO SCH ×3 (05:31→13:38)
[2019-10-16 06:26] LABS: EOSINOPHILS % (AUTO) 0.1 % (0.0-6.0); HEMATOCRIT 27 % (39-51); HEMOGLOBIN 8.2 g/dL (13.5-17.5); LYMPHOCYTES # (AUTO) 2.2 /CMM (0.8-4.8); LYMPHOCYTES % (AUTO) 14.4 % (20.0-44.0); MEAN CORPUSCULAR HGB CONC 31 g/dl (31.0-36.0); MEAN CORPUSCULAR VOLUME 97 fL (80-96); MONOCYTES # (AUTO) 1.6 /CMM (0.1-1.30); MONOCYTES % (AUTO) 10.6 % (2.0-12.0); NEUTROPHILS # (AUTO) 11.5 /CMM (1.8-8.9); NEUTROPHILS % (AUTO) 74.9 % (43.0-81.0); PLATELET COUNT (AUTO) 551 /CMM (150-450); RED BLOOD CELL COUNT(AUTO) 2.74 MIL/uL (4.5-6.0); WHITE BLOOD COUNT (AUTO) 15.4 K/uL (4.3-11.0)
[2019-10-16 06:48] LABS: CALCIUM, SERUM 8.6 mg/dL (8.5-10.1); CREATININE 3.4 mg/dL (0.6-1.3); MAGNESIUM 1.9 mg/dL (1.8-2.4); PHOSPHORUS 5.9 mg/dL (2.5-4.9)
--- NOTE | 2019-10-16 06:51 | NUR ---
REAL ESTATE OPERATIONS MANAGER CLOSING NOTES PATIENT AWAKE OBTUNDED EYES OPEN, RESPIRATIONS EVEN AND UNLABORED WITH EQUAL RISE AND FALL OF CHEST, APPEARS COMFORTABLE AT THIS TIME, NO FACIAL GRIMACING PRESENT,HEAD OF BED ELEVATED FOR ASPIRATIONS PRECAUTIONS, GTUBE INTACT AND PATENT, FLEXISEAL IN PLACE, RIGHT UPPER ARM PICC LINE IN PLACE, DSG IS C/D/I. WOUND CARE DONE ORDERED, FREUQNET REPOSITIONING PROVIDED, SAFETY PRECAUTIONS RENDERED , ALL NEEDS ATTENDED AT THIS TIME, WILL CONTINUE TO MONITOR AND ATTEND TO NEEDS, ON PROPERTY DISPOSAL MANAGER SR 91, AND WILL ENDORSE TO NEXT SHIFT.
--- NOTE | 2019-10-16 07:26 | NUR ---
RN OPENING NOTE PT WAS RECEIVED IN BED AT LOWEST AND LOCKED POSITION WITH SIDE RAILS UP X2, AWAKE BUT OBTUNDED, ON VENT WITH VENT SETTINGS NOTED, ON TELE SHOWING SR, NOTED TO HAVE FLEXISEAL IN PLACE, ANURIC, LAST HD WAS 10/14 WITH 1 L OUT, IV IS PATENT AND INTACT, SAFETY PRECAUTIONS IN PLACE, CALL LIGHT IN REACH, WILL MONITOR ACCORDINGLY
[2019-10-16] MEDS: INSULIN GLARGINE, 100 UNIT/ML CARTRIDGE SQ SCH (07:30)
[2019-10-16 08:00] VITALS: BP 115/57
[2019-10-16] MEDS: HYDROCORTISONE SOD SUCCINATE 100 MG/2 ML VIAL IV SCH (08:48)
[2019-10-16] MEDS: MIDODRINE HCL (5MG) 5 MG TABLET GT SCH ×2 (08:48→13:38)
[2019-10-16] MEDS: ASPIRIN 81 MG TAB.CHEW GT SCH (08:48)
[2019-10-16] MEDS: LACTOBACILLUS RHAMNOSUS GG 1 EACH CAP.SPRINK GT SCH (08:48)
[2019-10-16] MEDS: PROSOURCE / PROSTAT (PYXIS) 30 ML UDC GT SCH (08:49)
[2019-10-16] MEDS: Z GUARD REMEDY 4 OZ OINT TP SCH (08:49)
[2019-10-16] MEDS: TRIAMCINOLONE ACETONIDE 0.1% CR 15 GM TUBE TP SCH (08:49)
[2019-10-16] MEDS: AMMONIUM LACTATE 227 GM BOTTLE TP SCH (08:49)
[2019-10-16] MEDS: HYDROGEL DRESSING 90 GM TUBE TP SCH (08:49)
[2019-10-16] MEDS: CLOTRIMAZOLE/BETAMETASONE DIPROPIONATE 15 GM TUBE TP SCH (08:49)
[2019-10-16] MEDS: DEXTROSE 50%-WATER 50 ML DISP.SYRIN IV PRN (08:54)
--- NOTE | 2019-10-16 09:00 | NUR ---
RN NOTE BS WAS NOTED TO BE 50, BS WAS RETAKEN AND NOTED TO BE 43 AT THIS TIME, WILL ADMIN D50 AND MONITOR ACCORDINGLY
[2019-10-16 09:10] VITALS: BP 115/57
--- NOTE | 2019-10-16 09:35 | NUR ---
RN NOTE BS WAS RETAKEN AND NOTED TO BE 98 AT THIS TIME
[2019-10-16] MEDS: VITAL AF 1.2 1,000 ML BOTTLE GT PRN (11:42)
[2019-10-16 12:00] VITALS: BP 105/42
[2019-10-16 14:21] VITALS: BP 105/42
--- NOTE | 2019-10-16 14:31 | NUR ---
CALL WORKER PERSON NOTE CALLED TO SNF REPORT GIVEN, SPOKE WITH ROSA CASTAÑEDA , PER DR CAREY WERNER TO DISCHARGE TO SNF
--- NOTE | 2019-10-16 15:53 | NUR ---
DISCHARGE NOTE PT WAS D/C AT THIS TIME TO SNF WITH REPORT GIVEN TO ROSA AT FACILITY BY GARRY MCCLOUD. ID BAND WAS REMOVED. PT LEFT WITH PICC LINE AND RECTAL TUBE IN PLACE. ACCOMPANIED BY EMT CREW AND RN. TRACH IN PLACE AND VENT SETTINGS NOTED AND PASSED ON TO EMT CREW RN. PHOTOS OF SKIN WERE TAKEN AND PLACED IN THE CHART. FAMILY AWARE OF PT BEING TRANSFERRED OUT. ALL NEEDS ATTENDED TO DURING HIS STAY. PT LEFT AT THIS TIME IN MEDICALLY STABLE CONDITION.
== END 2019-10-16 16:00 | DRG 317 ==
LOC: ER 13:25 → ICU 15:55 → TELE1 08-07 13:36 → ICU 08-09 02:59 → TELE-TD 09-08 19:06 → TELE1 09-12 18:02 → ICU 10-03 18:17 → TELE-TD 10-10 06:20 → TELE1 10-11 11:10
PROVIDERS: ADMIT Nurse Practitioner Acute Care
PROC: 5A1955Z Respiratory Ventilation, Greater than 96 Consecutive Hours (ICD-10-PCS; principal; 2019-08-05)
PROC: 5A1D70Z Performance of Urinary Filtration, Intermittent, Less than 6 Hours Per Day (ICD-10-PCS; 2019-08-06)
PROC: 05HF33Z Insertion of Infusion Device into Left Cephalic Vein, Percutaneous Approach (ICD-10-PCS; 2019-08-06)
PROC: 0J9P3ZZ Drainage of Left Lower Leg Subcutaneous Tissue and Fascia, Percutaneous Approach (ICD-10-PCS; 2019-08-09)
PROC: 0KBP0ZZ Excision of Left Hip Muscle, Open Approach (ICD-10-PCS; 2019-08-10)
PROC: 0KBN0ZZ Excision of Right Hip Muscle, Open Approach (ICD-10-PCS; 2019-08-10)
PROC: 0KBP0ZZ Excision of Left Hip Muscle, Open Approach (ICD-10-PCS; 2019-08-23)
PROC: 0KBN0ZZ Excision of Right Hip Muscle, Open Approach (ICD-10-PCS; 2019-08-23)
PROC: B543ZZA Ultrasonography of Right Jugular Veins, Guidance (ICD-10-PCS; 2019-08-25)
PROC: 05HM33Z Insertion of Infusion Device into Right Internal Jugular Vein, Percutaneous Approach (ICD-10-PCS; 2019-08-25)
PROC: 06HN33Z Insertion of Infusion Device into Left Femoral Vein, Percutaneous Approach (ICD-10-PCS; 2019-08-25)
PROC: B54CZZA Ultrasonography of Left Lower Extremity Veins, Guidance (ICD-10-PCS; 2019-08-25)
PROC: 0KBN0ZZ Excision of Right Hip Muscle, Open Approach (ICD-10-PCS; 2019-09-01)
PROC: 0KBP0ZZ Excision of Left Hip Muscle, Open Approach (ICD-10-PCS; 2019-09-01)
PROC: 02HV33Z Insertion of Infusion Device into Superior Vena Cava, Percutaneous Approach (ICD-10-PCS; 2019-09-04)
PROC: B548ZZA Ultrasonography of Superior Vena Cava, Guidance (ICD-10-PCS; 2019-09-04)
PROC: 30233N1 Transfusion of Nonautologous Red Blood Cells into Peripheral Vein, Percutaneous Approach (ICD-10-PCS; 2019-09-09)
PROC: 0JBM0ZZ Excision of Left Upper Leg Subcutaneous Tissue and Fascia, Open Approach (ICD-10-PCS; 2019-09-12)
PROC: 0KBP0ZZ Excision of Left Hip Muscle, Open Approach (ICD-10-PCS; 2019-09-12)
PROC: 0JBL0ZZ Excision of Right Upper Leg Subcutaneous Tissue and Fascia, Open Approach (ICD-10-PCS; 2019-09-12)
PROC: 0KBN0ZZ Excision of Right Hip Muscle, Open Approach (ICD-10-PCS; 2019-09-12)
PROC: 0JH63XZ Insertion of Tunneled Vascular Access Device into Chest Subcutaneous Tissue and Fascia, Percutaneous Approach (ICD-10-PCS; 2019-09-24)
PROC: B543ZZA Ultrasonography of Right Jugular Veins, Guidance (ICD-10-PCS; 2019-09-24)
PROC: 05HM33Z Insertion of Infusion Device into Right Internal Jugular Vein, Percutaneous Approach (ICD-10-PCS; 2019-09-24)
PROC: 0KBN0ZZ Excision of Right Hip Muscle, Open Approach (ICD-10-PCS; 2019-09-26)
PROC: 0KBP0ZZ Excision of Left Hip Muscle, Open Approach (ICD-10-PCS; 2019-09-26)
PROC: 0KBN0ZZ Excision of Right Hip Muscle, Open Approach (ICD-10-PCS; 2019-10-06)
PROC: 0KBP0ZZ Excision of Left Hip Muscle, Open Approach (ICD-10-PCS; 2019-10-06)
PROC: 0KBN0ZZ Excision of Right Hip Muscle, Open Approach (ICD-10-PCS; 2019-10-12)
PROC: 0KBP0ZZ Excision of Left Hip Muscle, Open Approach (ICD-10-PCS; 2019-10-12)
DX: T87.44 Infection of amputation stump, left lower extremity (principal); A41.59 Other Gram-negative sepsis; I21.A1 Myocardial infarction type 2; J96.21 Acute and chronic respiratory failure with hypoxia; E43 Unspecified severe protein-calorie malnutrition; R65.21 Severe sepsis with septic shock; G93.1 Anoxic brain damage, not elsewhere classified; L89.154 Pressure ulcer of sacral region, stage 4; D68.59 Other primary thrombophilia; Z99.11 Dependence on respirator [ventilator] status; Z93.0 Tracheostomy status; L89.324 Pressure ulcer of left buttock, stage 4; L89.314 Pressure ulcer of right buttock, stage 4; R53.2 Functional quadriplegia; E11.22 Type 2 diabetes mellitus with diabetic chronic kidney disease; N18.6 End stage renal disease; Z99.2 Dependence on renal dialysis; Z89.612 Acquired absence of left leg above knee; Z93.1 Gastrostomy status; Y83.8 Other surgical procedures as the cause of abnormal reaction of the patient, or of later complication, without mention of misadventure at the time of the procedure; Y92.129 Unspecified place in nursing home as the place of occurrence of the external cause; R13.10 Dysphagia, unspecified; Z79.4 Long term (current) use of insulin; Z79.899 Other long term (current) drug therapy; Z87.440 Personal history of urinary (tract) infections; Z74.01 Bed confinement status; I27.20 Pulmonary hypertension, unspecified; E11.52 Type 2 diabetes mellitus with diabetic peripheral angiopathy with gangrene; E11.65 Type 2 diabetes mellitus with hyperglycemia; E27.40 Unspecified adrenocortical insufficiency; I25.2 Old myocardial infarction; G93.41 Metabolic encephalopathy; I13.2 Hypertensive heart and chronic kidney disease with heart failure and with stage 5 chronic kidney disease, or end stage renal disease; I50.23 Acute on chronic systolic (congestive) heart failure; E87.6 Hypokalemia; K21.9 Gastro-esophageal reflux disease without esophagitis; J98.11 Atelectasis; I42.9 Cardiomyopathy, unspecified; L89.890 Pressure ulcer of other site, unstageable; A41.50 Gram-negative sepsis, unspecified; Y83.5 Amputation of limb(s) as the cause of abnormal reaction of the patient, or of later complication, without mention of misadventure at the time of the procedure; Y92.89 Other specified places as the place of occurrence of the external cause; Y84.8 Other medical procedures as the cause of abnormal reaction of the patient, or of later complication, without mention of misadventure at the time of the procedure; D53.9 Nutritional anemia, unspecified; I95.3 Hypotension of hemodialysis; B96.1 Klebsiella pneumoniae [K. pneumoniae] as the cause of diseases classified elsewhere; Z89.611 Acquired absence of right leg above knee; E83.39 Other disorders of phosphorus metabolism; E83.52 Hypercalcemia; L85.3 Xerosis cutis
CPT/HCPCS: 31720; 36415; 36569; 71045-TC; 74018; 80048-TC; 80053-TC; 80076-TC; 80150; 80202-TC; 81000-TC; 82272-TC; 82533; 82784; 82947-TC; 82962-TC; 83605-TC; 83615-TC; 83735-TC; 84100-TC; 84155; 84165; 84484-TC; 85025-TC; 85385-TC; 85396; 85730-TC; 86334; 86706; 86850-TC; 86921-TC; 87040-TC; 87070-TC; 87081-TC; 87086-TC; 87186-TC; 87340; 90935-TC; 93307-TC; 94002-TC; 94003-TC; 94640-TC; 94760-TC; 94761-TC; 94762-TC; 94799-TC; 99082-TC; A4216; A4217; A4623; A6248; A6253; A6403; A6407; A7526; A9563; C1750; C1751; C1769; G0378; J0278; J0690; J0692; J0770; J0885; J1644; J1720; J1815; J2060; J2185; J2250; J2270; J2370; J2405; J2543; J2704; J2765; J2997; J3370; J3480; J3490; J7030; J7040; J7050; J7060; J8597; P9016-BL; P9047; Q9966

== ENCOUNTER 2019-10-22 14:22 | Inpatient (IN) | payer MEDICARE, OTHER ==
[~2019-10-22] VITALS: Ht 121.9 cm; Wt 55.3 kg
[2019-10-22] VITALS (9 sets, daily range): BP systolic 80–122; BP diastolic 32–61
[~2019-10-22 14:22] MED LIST changes: -ALLA266C2 TP; -AMMO225L14 TP; +BISA10SU11 RC; -CADE40GE2 TP; -CLON0.1T GT; +CLON0.1T14 PO; -CLOT15CR63 TP; +COLI150V12 IV; +DEXT15DR6 OP; +FOLI0.8T2 GT; -GEL100GE TP; -HYDR1SOL TP; +INSU100I26 SQ; +METO50TA16 GT; +MIDO10TA GT; +ONDA4TAB5 GT; -POLY15DR40 EACHEYE; -SODI473S8 TOP; -TRIA80CR12 TP; +VANC1PLA9 IV; -VITA1TAB20 PO
[2019-10-22] MEDS ORDERED: METR500T GT (14:57)
[2019-10-22] MEDS ORDERED: COLI150V12 IV (14:57)
[2019-10-22] MEDS ORDERED: IPRA3AMP23 IH ×2 (14:57)
[2019-10-22] MEDS ORDERED: ASPI-1169 GT (14:57)
[2019-10-22] MEDS ORDERED: POLY15DR40 EACHEYE (14:57)
[2019-10-22] MEDS ORDERED: METO25TA20 GT (14:57)
[2019-10-22] MEDS ORDERED: INSU100V7 SQ (14:57)
--- NOTE | 2019-10-22 15:11 | NUR ---
PT REC'D TO ER VIA EMS PT LARISSA PAVON BE DIALYSIS BLOOD PRESURE LOW . WAS HERE AT [facility] 3 DAYS AGO FOR 40 DAYS SEPTIC ON ANTBOX . ABOVE KNEE AMP BL G TUBE 4 GRADE PATY BUTTOCKS X2 DRESSING DRY INACT TRACH RT AT BEDSIDE VENT SAVI EARS DRESSING INTACT
[2019-10-22 16:02] LABS: CALCIUM, SERUM 8.6 mg/dL (8.5-10.1); CARBON DIOXIDE 18 mmol/L (21-32); CHLORIDE 100 mmol/L (98-107); CREATININE 3.2 mg/dL (0.6-1.3); GLUCOSE 115 mg/dL (74-106); SODIUM SERUM 137 mmol/L (136-145); UREA NITROGEN, BLOOD 64 mg/dL (7-18)
[2019-10-22 16:07] LABS: BASOPHILS # (AUTO) 0.1 /CMM (0.0-0.2); BASOPHILS % (AUTO) 0.4 % (0.0-2.0); EOSINOPHILS % (AUTO) 7.4 % (0.0-6.0); HEMATOCRIT 27 % (39-51); HEMOGLOBIN 8.3 g/dL (13.5-17.5); LYMPHOCYTES # (AUTO) 1.8 /CMM (0.8-4.8); LYMPHOCYTES % (AUTO) 7.8 % (20.0-44.0); MEAN CORPUSCULAR HGB CONC 31 g/dl (31.0-36.0); MEAN CORPUSCULAR VOLUME 102 fL (80-96); MONOCYTES # (AUTO) 2.5 /CMM (0.1-1.30); MONOCYTES % (AUTO) 10.4 % (2.0-12.0); NEUTROPHILS # (AUTO) 17.6 /CMM (1.8-8.9); PLATELET COUNT (AUTO) 250 /CMM (150-450); POTASSIUM 2.4 mmol/L (3.5-5.1); RED BLOOD CELL COUNT(AUTO) 2.66 MIL/uL (4.5-6.0); WHITE BLOOD COUNT (AUTO) 23.8 K/uL (4.3-11.0)
[2019-10-22 16:18] LABS: BILIRUBIN,DIRECT 0.3 mg/dL (0.0-0.2); BILIRUBIN,TOTAL 0.7 mg/dL (0.2-1.0)
[2019-10-22 16:19] LABS: ALBUMIN 1.6 g/dL (3.4-5.0); ALKALINE PHOSPHATASE 298 U/L (46-116)
[2019-10-22 16:20] LABS: TOTAL PROTEIN, SERUM 6.1 g/dL (6.4-8.2)
[2019-10-22] MEDS ORDERED: POTASSIUM CL. PREMIX PERIPHER. 200 ML ONE (16:41)
--- NOTE | 2019-10-22 16:44 | NUR ---
PT GIVEN POT PER MD ORDER
[2019-10-22 17:23] LABS: ALANINE AMINOTRANSFERASE 13 U/L (12-78); B-TYPE NATRIURETIC PEPTIDE > 70000 PG/ML (0-125)
[2019-10-22 17:39] LABS: EOSINOPHILS % (MANUAL) 7 % (0-4); LYMPHOCYTES % (MANUAL) 9 % (16-48); MONOCYTES % (MANUAL) 10 % (0-11.0); NEUTROPHILS % (MANUAL) 74 (42-76)
[2019-10-22 17:46] LABS: ASPARTATE AMINOTRANSFERASE 39 U/L (15-37)
--- NOTE | 2019-10-22 18:01 | NUR ---
REPORT GIVEN TO HANANE CASTAÑEDA FOR CONTINUITY OF CARE IN ICU
--- NOTE | 2019-10-22 18:19 | NUR ---
SENT TO FLOOR STABLE POT INFUSING TO THE [facility] 2 ND BAG INFUSING NOW
--- NOTE | 2019-10-22 18:27 | NUR ---
PATIENT TRANSFERRED FROM ER BED 8 TO 250. PT USING VENT ON SAME SETTINGS ALARMS ON AND FUNCTIONING. PLUGGED INTO RED OUTLET AMBU BAG BED SIDE Addendum: 10/22/19 at 1828 by HILLARY GONSALEZ RT Amended: Links added.
[2019-10-22] MEDS ORDERED: Medication Not On Formulary EA (Ipratropium/Albuterol Sulfate (Duoneb 2.5-0.5 Mg/3 Ml So IH PRN (18:30)
[2019-10-22] MEDS ORDERED: HYDROCODONE/APAP 5/325MG 1 EACH TABLET PO PRN (18:30)
[2019-10-22] MEDS ORDERED: MEROPENEM 500 MG in IV NS 0.9% 50 ML IV SCH (18:30)
[2019-10-22] MEDS ORDERED: Z GUARD REMEDY 2 OZ OINT TP PRN (18:30)
[2019-10-22] MEDS ORDERED: ACETAMINOPHEN 325 MG TABLET PO PRN (18:30)
[2019-10-22] MEDS ORDERED: SIMETHICONE 80 MG TAB.CHEW GT PRN (18:30)
[2019-10-22] MEDS ORDERED: ONDANSETRON HCL/PF 4 MG/2 ML VIAL IVP PRN (18:30)
[2019-10-22] MEDS ORDERED: MAGNESIUM HYDROXIDE 30 ML UDC PO PRN (18:30)
[2019-10-22] MEDS ORDERED: ZOLPIDEM TARTRATE 5 MG TABLET GT PRN (18:30)
[2019-10-22] MEDS ORDERED: MAG HYDROX/AL HYDROX/SIMETH 30 ML UDC PO PRN (18:30)
[2019-10-22] MEDS ORDERED: ONDANSETRON 4 MG TAB.RAPDIS GT PRN (19:00)
[2019-10-22] MEDS: POTASSIUM CL. PREMIX PERIPHER. 50 ML IV SCH ×4 (19:15→22:41)
[2019-10-22] MEDS ORDERED: IPRATROPIUM NEB FS 0.5 MG/2.5 ML AMPUL.NEB NEB PRN (19:30)
[2019-10-22] MEDS ORDERED: ALBUTEROL FS 2.5 MG/0.5 ML VIAL.NEB NEB PRN (19:30)
--- NOTE | 2019-10-22 19:34 | NUR ---
ADULT EDUCATOR. INITIAL ASSESSMENT. RECEIVED THE PT REST ON THE BED. TRACH TO VENT , PT IS OBTUNDED, DOES NOT FOLLOW COMMANDS. RN ONCOLOGY SHOWING NSR. VENT SETTINGS SHILEY# AC 18,TV 500,FIO2 40%,PEEP 5. SAT 98%. NO ACUTE DISTRESS NOTED. RT UPPER ARM PICC LINE POTASSIUM DRIP RUNNING. RT IJ PERMA CATH. GT CLAMPED.BLOOD PRESSURE 87.40. PAGED THE FOR BLOOD PRESSURE SUPPORT MEDS HOB ELEVATED. SAVI LOWER EXTREMITY AKA. WILL CONTINUE TO MONITOR VITALS.
[2019-10-22] MEDS ORDERED: NOREPINEPHRINE 16 MG in IV D5W 500 ML IV PRN (20:00)
[2019-10-22] MEDS ORDERED: NOREPINEPHRINE 4 MG/4 ML AMPUL IV ONE (20:16)
[2019-10-22] MEDS: INSULIN GLARGINE, 100 UNIT/ML CARTRIDGE SQ SCH (21:00)
[2019-10-22] MEDS ORDERED: POTASSIUM CL. PREMIX PERIPHER. 50 ML ONE (22:40)
[2019-10-22] MEDS: DEXTROSE 50%-WATER 50 ML DISP.SYRIN IV PRN (22:42)
--- NOTE | 2019-10-22 22:43 | NUR ---
WRINGER MACHINE OPERATOR INSULIN LANTUS NOT GIVEN. BLOOD SUGAR IS 55. DEXTROSE 50 IV GIVEN
[2019-10-22] MEDS: POLYVINYL ALCOHOL 15 ML BOTTLE EACHEYE SCH (22:56)
--- NOTE | 2019-10-22 22:59 | NUR ---
ELECTRICAL TIMING DEVICE CALIBRATOR. TOTAL POTASSIUM 40 MEQ GIVEN. BONE PROCESS OPERATOR WITNESSED.
--- NOTE | 2019-10-22 23:16 | NUR ---
TOP CAGER. REPORT GIVEN TO ALEKSANDRA CASTAÑEDA . S/P D50% BLOOD SUGAR IS 113. WOUND PICTURE TAKEN DAY SHIFT RN, WOUND ASSESSMENT ENDORSE TO ALEKSANDRA CASTAÑEDA.
--- NOTE | 2019-10-22 23:55 | NUR ---
Pt awake, appears tired, breathing even on vent via trach, maintaining sat 100%, bp is managing with Levophed 2mcg/hr at this point. Pt w red scleras, eyes gazed, able to track. The coccyx with heavy decubitus and heavy excoriations on buttocks half dollar sizes bilaterally. Scrotum is edematous, red and hard. bilateral AKA sites are clean, dry and intact. Safety and comfort checked. Verbal assurance rendered.
[2019-10-23] VITALS (58 sets, daily range): BP systolic 65–150; BP diastolic 20–113
[2019-10-23] MEDS: BLOOD SUGAR DIAGNOSTIC 1 EACH STRIP IN SCH ×4 (00:36→17:05)
[2019-10-23] MEDS ORDERED: VANCOMYCIN 1 GM VIAL ONE (00:56)
[2019-10-23] MEDS ORDERED: VANCOMYCIN 1 GM in IV D5W 250ml IV ONE (01:00)
--- NOTE | 2019-10-23 03:00 | NUR ---
Pt defecated two episodes of brown loose stool tonight. Bed bath provided, new gown and linen applied. comfort increased, safety maintained.
[2019-10-23] MEDS: POLYVINYL ALCOHOL 15 ML BOTTLE EACHEYE SCH ×3 (05:39→21:50)
--- NOTE | 2019-10-23 07:15 | NUR ---
Shift change report given to incoming SENIOR MARKETING ANALYST. Pt. laying calmly, maintaining baseline status.
[2019-10-23] MEDS ORDERED: VANCOMYCIN 500 MG in IV D5W 100 ML IV PRN (07:30)
--- NOTE | 2019-10-23 07:30 | NUR ---
TRANSPORT ASSISTANT AM NOTES: PATIENT IN BED, OPENS EYES, OBTUNDED, ON TRACH - SHILEY 8 TO MECHANICAL VENT, SETTING ORDERED AC 18 TV 500 FIO2 40% PEEP 5, BREATHING IS EVEN AND UNLABORED. SINUS RHYTHM HR 83, NO S/S OF PAIN. NO FACIAL GRIMACING. GENO PICC WITH ONGOING LEVOPHED AT 3 MCG/MIN. RCW HD CATH CDI DRESSING, ON DIAPER. GT CLAMPED AT THIS TIME, HOB ELEVATED. SEE NURSING NOTES FOR SKIN ISSUES. WILL TURN AND REPOSITION Q 2 HOURS. BILAT AKA, OFF LOAD. KEPT CLEAN AND DRY. CALL LIGHT PLACED WITHIN REACH. WILL CONT. TO MONITOR. FOR HD TODAY AND WOUND CONSULT
[2019-10-23] MEDS: PANTOPRAZOLE 40 MG TABLET.DR PO SCH (08:30)
[2019-10-23] MEDS: LACTOBACILLUS RHAMNOSUS GG 1 EACH CAP.SPRINK GT SCH ×2 (08:41→16:53)
[2019-10-23] MEDS: ASPIRIN 81 MG TAB.CHEW GT SCH (08:41)
[2019-10-23] MEDS: VIT B CMPLX 3/FA/VIT C/BIOTIN 1 TAB TABLET GT SCH (08:41)
[2019-10-23] MEDS: SUCRALFATE 1 G/10 ML UDC GT SCH (08:41)
[2019-10-23] MEDS: ASCORBIC ACID 500 MG TABLET GT SCH (08:41)
[2019-10-23] MEDS: METOPROLOL TARTRATE 25 MG TABLET GT SCH ×2 (08:42→17:00)
[2019-10-23] MEDS: ZINC SULFATE 220 MG CAPSULE GT SCH (08:43)
[2019-10-23] MEDS: METRONIDAZOLE 500 MG TABLET GT SCH ×3 (08:43→16:53)
[2019-10-23] MEDS: INSULIN GLARGINE, 100 UNIT/ML CARTRIDGE SQ SCH ×2 (08:44→21:00)
[2019-10-23] MEDS ORDERED: COLISTIMETHATE SODIUM 150 MG VIAL IV SCH (09:00)
[2019-10-23] MEDS: COLISTIMETHATE SODIUM 100 MG in IV NS 0.9% 50 ML IV SCH (09:02)
--- NOTE | 2019-10-23 09:30 | NUR ---
RN NOTES DUE MEDS GIVEN
[2019-10-23] MEDS ORDERED: NOREPINEPHRINE 16 MG in IV D5W 500 ML IV PRN (10:00)
[2019-10-23] MEDS ORDERED: FEE PK DOSING 1 MIN EA MC ONE (10:15)
[2019-10-23 11:03] LABS: BASOPHILS # (AUTO) 0.1 /CMM (0.0-0.2); BASOPHILS % (AUTO) 0.4 % (0.0-2.0); EOSINOPHILS % (AUTO) 7.3 % (0.0-6.0); HEMATOCRIT 25 % (39-51); HEMOGLOBIN 7.8 g/dL (13.5-17.5); LYMPHOCYTES # (AUTO) 2.2 /CMM (0.8-4.8); LYMPHOCYTES % (AUTO) 8.4 % (20.0-44.0); MEAN CORPUSCULAR HGB CONC 31 g/dl (31.0-36.0); MEAN CORPUSCULAR VOLUME 97 fL (80-96); MONOCYTES # (AUTO) 1.6 /CMM (0.1-1.30); MONOCYTES % (AUTO) 6.4 % (2.0-12.0); NEUTROPHILS # (AUTO) 19.8 /CMM (1.8-8.9); NEUTROPHILS % (AUTO) 77.5 % (43.0-81.0); PLATELET COUNT (AUTO) 214 /CMM (150-450); RED BLOOD CELL COUNT(AUTO) 2.57 MIL/uL (4.5-6.0); WHITE BLOOD COUNT (AUTO) 25.5 K/uL (4.3-11.0)
--- NOTE | 2019-10-23 11:27 | NUR ---
RN NOTES STARTED GT FEEDING NEPRO AT 40 ML/HR FOR 18 HOURS. [OFF AT 0530]
[2019-10-23] MEDS: NEPRO 1,000 ML BOTTLE GT PRN (11:29)
[2019-10-23 11:32] LABS: ALBUMIN 1.6 g/dL (3.4-5.0); BILIRUBIN,TOTAL 0.9 mg/dL (0.2-1.0); CALCIUM, SERUM 8.2 mg/dL (8.5-10.1); CREATININE 2.3 mg/dL (0.6-1.3); POTASSIUM 3.9 mmol/L (3.5-5.1); TOTAL PROTEIN, SERUM 5.9 g/dL (6.4-8.2)
[2019-10-23 12:00] LABS: MAGNESIUM 1.7 mg/dL (1.8-2.4); PHOSPHORUS 0.5 mg/dL (2.5-4.9)
--- NOTE | 2019-10-23 15:32 | NUR ---
RN NOTES WOUND SWAB SPECIMEN FOR GS COLLECTED. JOVAN AT LAB INFORMED FOR ENGINEERING DIRECTOR.
--- NOTE | 2019-10-23 16:48 | NUR ---
RN NOTES PER [facility], NO NEED TO GIVE VANCOMYCIN AT THIS TIME. POST HD VANCO TROUGH IS 19
--- NOTE | 2019-10-23 18:30 | NUR ---
SUPPORTABILITY ENGINEER CLOSING NOTES: PATIENT RESTING IN BED, OPENS EYES, OBTUNDED, ON TRACH - SHILEY 8 TO MECHANICAL VENT, SETTING ORDERED AC 18 TV 500 FIO2 40% PEEP 5, BREATHING IS EVEN AND UNLABORED. SINUS TACHYCARDIA, NO S/S OF PAIN. NO FACIAL GRIMACING. GENO PICC WITH ONGOING LEVOPHED AT 6 MCG/MIN. RCW HD CATH CDI DRESSING, ON DIAPER., GT FEEDING NEPRO AT 40 ML/HR, STOPPED FOR A WHILE PATIENT VOMITTED. FLEXISEAL IN PLACE WITH ABOUT 175 ML OUTPUT. HOB ELEVATED. TURNED AND REPOSITIONED Q 2 HOURS. BILAT AKA, OFF LOADED. SUCTION PRN. PM CARE AND WOUND TREATMENT DONE. KEPT CLEAN AND DRY. CALL LIGHT PLACED WITHIN REACH. ALL NEEDS MET. NO OTHER SIGNIFICANT CHANGE IN CONDITION. WILL ENDORSE TO NEXT SHIFT FOR MARKELL.
--- NOTE | 2019-10-23 19:30 | NUR ---
RN NOTE: Pt supine, flushed skin, breathing even & regular on Vent via trach. Pt. hypotensive, managing by Levophed 3mcg/hr at this point. Ordered Nephro G-tube bag had been stopped due to pt nausea by the [employer]IG[employer]ER[employer]. Pt. aphasic, tracking present, bubbly saliva production moderate as the new occurrence in pt. Pt with non pitting +3 edema arms, scrotum, and abdomen. Stump sites bilat aka, clean, dry, intact. Coccyx p/s debridement are dressing w serosanguineous minor drainage. Pt now w rectal tube, collecting yellow loose stool moderate output. GENO PICC patent, infusing ordered IV meds. Comfort maintained in patient, room surveil for safety.
[2019-10-23] MEDS: MIDODRINE HCL (5MG) 5 MG TABLET GT SCH (20:00)
--- NOTE | 2019-10-23 23:00 | NUR ---
Pt. maintaining respiration and blood pressure at this point. Oral temp increased. Tylenol 650mg, susp. given via PEG tube. Skin care given, lightened the coverings in pt.
[2019-10-23] MEDS: ACETAMINOPHEN 650 MG/20.3 ML UDC GT PRN (23:42)
[2019-10-24] VITALS (62 sets, daily range): BP systolic 57–149; BP diastolic 24–129
--- NOTE | 2019-10-24 00:05 | NUR ---
RN NOTE Pt. VS at his baseline, ice packs applied to manage fever in Pt.
[2019-10-24] MEDS: BLOOD SUGAR DIAGNOSTIC 1 EACH STRIP IN SCH ×4 (00:52→17:49)
--- NOTE | 2019-10-24 03:56 | NUR ---
RT NOTE Pt rec'd on [facility] vent on AC mode. Pt shows no signs of resp distress or sob. Trach is patent and secured. Pt sx'd for thick large amt of yellow secretions. Alarms are set and audible. Vent plugged into red outlet. Ambu bag bedside. Will continue to monitor closely. Addendum: 10/24/19 at 0358 by MANISH DOMINGUEZ RT Amended: Links added.
[2019-10-24 05:29] LABS: BASOPHILS # (AUTO) 0.1 /CMM (0.0-0.2); BASOPHILS % (AUTO) 0.6 % (0.0-2.0); EOSINOPHILS % (AUTO) 5.4 % (0.0-6.0); HEMATOCRIT 28 % (39-51); HEMOGLOBIN 8.5 g/dL (13.5-17.5); LYMPHOCYTES # (AUTO) 1.9 /CMM (0.8-4.8); LYMPHOCYTES % (AUTO) 9.7 % (20.0-44.0); MEAN CORPUSCULAR HGB CONC 30 g/dl (31.0-36.0); MEAN CORPUSCULAR VOLUME 101 fL (80-96); MONOCYTES # (AUTO) 0.4 /CMM (0.1-1.30); MONOCYTES % (AUTO) 2.1 % (2.0-12.0); NEUTROPHILS # (AUTO) 15.9 /CMM (1.8-8.9); NEUTROPHILS % (AUTO) 82.2 % (43.0-81.0); PLATELET COUNT (AUTO) 178 /CMM (150-450); RED BLOOD CELL COUNT(AUTO) 2.79 MIL/uL (4.5-6.0); WHITE BLOOD COUNT (AUTO) 19.4 K/uL (4.3-11.0)
[2019-10-24 05:53] LABS: IRON, SERUM 41 ug/dl (50-175); TOTAL IRON BINDING CAPACITY 71 ug/dl (250-450)
[2019-10-24 06:00] LABS: CALCIUM, SERUM 8.5 mg/dL (8.5-10.1); CARBON DIOXIDE 19 mmol/L (21-32); CHLORIDE 104 mmol/L (98-107); CREATININE 2.9 mg/dL (0.6-1.3); GLUCOSE 147 mg/dL (74-106); POTASSIUM 3.7 mmol/L (3.5-5.1); SODIUM SERUM 140 mmol/L (136-145); UREA NITROGEN, BLOOD 40 mg/dL (7-18)
[2019-10-24] MEDS: POLYVINYL ALCOHOL 15 ML BOTTLE EACHEYE SCH ×3 (06:15→21:00)
[2019-10-24 06:29] LABS: FERRITIN 6948 ng/mL (8-388); THYROID STIMULATING HORMONE 2.726 uIU/mL (0.358-3.74)
--- NOTE | 2019-10-24 07:15 | NUR ---
ICU/RN: Pt received from [facility] nurse hypotensive, ongoing levophed titration. Airway cleared of secretions. Wound care rendered. No gastric residuals noted.
--- NOTE | 2019-10-24 07:18 | NUR ---
RN NOTE PT RESTING COMFORTABLE, BREATHING EVEN, DENIES PAIN. CARE ENDORSED TO INCOMING SOAKER MEAT.
[2019-10-24] MEDS: ZINC SULFATE 220 MG CAPSULE GT SCH (08:25)
[2019-10-24] MEDS: PANTOPRAZOLE 40 MG TABLET.DR PO SCH (08:25)
[2019-10-24] MEDS: VIT B CMPLX 3/FA/VIT C/BIOTIN 1 TAB TABLET GT SCH (08:25)
[2019-10-24] MEDS: LACTOBACILLUS RHAMNOSUS GG 1 EACH CAP.SPRINK GT SCH ×2 (08:26→16:06)
[2019-10-24] MEDS: ASCORBIC ACID 500 MG TABLET GT SCH (08:26)
[2019-10-24] MEDS: SUCRALFATE 1 G/10 ML UDC GT SCH (08:26)
[2019-10-24] MEDS: ASPIRIN 81 MG TAB.CHEW GT SCH (08:26)
[2019-10-24] MEDS: METRONIDAZOLE 500 MG TABLET GT SCH ×3 (08:26→16:06)
[2019-10-24] MEDS ORDERED: NOREPINEPHRINE 16 MG in IV D5W 500 ML IV PRN (08:30)
[2019-10-24] MEDS: MIDODRINE HCL (5MG) 5 MG TABLET GT SCH ×3 (08:32→16:06)
[2019-10-24] MEDS: INSULIN GLARGINE, 100 UNIT/ML CARTRIDGE SQ SCH ×2 (08:44→21:00)
[2019-10-24 08:51] LABS: BILIRUBIN,DIRECT 0.6 mg/dL (0.0-0.2)
[2019-10-24] MEDS: METOPROLOL TARTRATE 25 MG TABLET GT SCH ×2 (09:00→16:07)
[2019-10-24] MEDS ORDERED: EPOETIN ALFA (10,000 UNIT) 10,000 UNIT/ML VIAL IV SCH (10:00)
--- NOTE | 2019-10-24 10:30 | NUR ---
ICU/RN: ANN Davalos at bedside for wound consult. Plan for sacral and bilateral buttock debridement. Will obtain consent.
[2019-10-24] MEDS: COLISTIMETHATE SODIUM 100 MG in IV NS 0.9% 50 ML IV SCH (10:39)
[2019-10-24] MEDS ORDERED: SILVER NITRATE APPLICATOR 1 EA BOX TP SCH (11:00)
[2019-10-24] MEDS ORDERED: LIDOCAINE 1%-EPI 1:100,000 20 ML VIAL TP ONE (11:00)
[2019-10-24] MEDS: NEPRO 1,000 ML BOTTLE GT PRN (11:28)
--- NOTE | 2019-10-24 13:00 | NUR ---
ICU/RN: LOPEZ Phoenix at bedside for ID f/u. 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 New orders for cultures noted, carried out and sent to lab.
[2019-10-24] MEDS ORDERED: NEPRO 1,000 ML BOTTLE GT PRN (13:10)
--- NOTE | 2019-10-24 14:00 | NUR ---
ICU/RN: Emesis x1 noted, GTF held.
[2019-10-24] MEDS ORDERED: HYDROGEL DRESSING 90 GM TUBE TP SCH (14:30)
[2019-10-24] MEDS: CLOTRIMAZOLE 1% 15 GM TUBE TP SCH ×2 (15:19→16:07)
[2019-10-24] MEDS: PHENYLEPHRINE 80 MG in IV D5W 250 ML IV PRN ×2 (15:32→22:23)
--- NOTE | 2019-10-24 16:00 | NUR ---
ICU/RN: Pt with persistent hypotension throughout shift. On max dose levophed; Amanuel Mendoza NP spoke with pt's daughter Christine Bravo to discuss pt's POC. Family wishes to continue aggressive treatment, additional pressors and keep full code status.
[2019-10-24] MEDS: ACETAMINOPHEN 650 MG/20.3 ML UDC GT PRN (16:41)
--- NOTE | 2019-10-24 17:00 | NUR ---
ICU/RN: TF resumed.
[2019-10-24] MEDS: DEXTROSE 50%-WATER 50 ML DISP.SYRIN IV PRN (17:43)
--- NOTE | 2019-10-24 18:15 | NUR ---
ICU/RN: Pt blood glucose noted at 35 mg/dl after repeat test. Administered D50 per protocol, latest blood glucose at 104 mg/dl.
--- NOTE | 2019-10-24 19:30 | NUR ---
Received patient obtunded critically ill on full vent support and multiple pressors max on levophed gtt at 40 mcg and neosynephrine gtt titrated accordingly.SR. GT feeding in progress with HOB elevated.Flexi seal to gravity drainage with liquid stools.Turned and repositioned.Monitored closely.
--- NOTE | 2019-10-24 21:27 | NUR ---
Patient unresponsive to painful and noxious stimuli asystole per electronic device monitor x3 leads. Pulses not palpable.Code ericka called.CPR started.Please refer to code reicka record.
--- NOTE | 2019-10-24 21:35 | NUR ---
Code Blue ended.Patient with heart rate and BP.Maintained on both LEVO and HENRIK gtt at max rate.
[2019-10-24 21:53] LABS: ABG BASE EXCESS -33.6 mmol/L; ABG OXYGEN SATURATION 93.2 % (92.0-98.5); ABG PCO2 36.7 mmHg (35.0-45.0); ABG PH 6.569 (7.350-7.450); ABG PO2 118.6 mmHg (75.0-100.0); AaDO2 557.7 mmHg; MetHb 1.1 % (0.0-1.5); O2Hb 92.2 % (94.0-97.0); SITE, ABG Left Radial; VENT MODE, BG AC 18 500 100% +5
--- NOTE | 2019-10-24 22:10 | NUR ---
2nd CODE CARYN called for Asystole.See CODE BLUE RECORD.
[2019-10-24] MEDS ORDERED: SODIUM BICARBONATE SYR 50 MEQ/50 ML DISP.SYRIN ONE (22:14)
[2019-10-24] MEDS ORDERED: EPINEPHRINE (1:10,000) SYRINGE 1 MG/10 ML DISP.SYRIN ONE ×4 (22:14→22:58)
--- NOTE | 2019-10-24 22:17 | NUR ---
CODE BLUE ended successfully.Maintained on levo and Neosynephrine gtt. Patient family here and updated of patient status.
--- NOTE | 2019-10-24 22:39 | NUR ---
3rd CODE CARYN called for PEA.ACLS protocol initiated.Please refer to IRIS RUBIN RECORD.
--- NOTE | 2019-10-24 22:43 | NUR ---
Ended code blue successfully.Patient with a pulse.Monitored closely.
--- NOTE | 2019-10-24 22:52 | NUR ---
4th Code ericka called for PEA.ACLS protocol initiated. Family said to continue resuscitation.Please see danuta barnett record.
--- NOTE | 2019-10-24 22:55 | NUR ---
Patient on junctional rhythm.Code blue ended.levo and erin gtt continued. monitored closely.
--- NOTE | 2019-10-24 23:05 | NUR ---
5th Rehan barnett called for PEA.ACLS protocol initiated.See rehan barnett record.
[2019-10-24] MEDS ORDERED: CALCIUM CHLORIDE 1,000 MG/10 ML DISP.SYRIN IV ONE (23:07)
[2019-10-24] MEDS ORDERED: EPINEPHRINE (1:10,000) SYRINGE 1 MG/10 ML DISP.SYRIN IVP ONE (23:07)
[2019-10-24] MEDS ORDERED: SODIUM BICARBONATE SYR 50 MEQ/50 ML DISP.SYRIN IV ONE (23:07)
[2019-10-24] MEDS ORDERED: EPINEPHRINE (1:1000) 1 MG/ML AMPUL SUBCUT ONE (23:07)
[2019-10-24] MEDS ORDERED: FEE EMEERGENCY 1 MIN EA MC ONE (23:07)
--- NOTE | 2019-10-24 23:08 | NUR ---
Patient asystole per monitor.No palpable pulse.Code blue ended. pronounce . Family decided to stop resuscitation measures.Emotional support provided.
--- NOTE | 2019-10-24 23:29 | NUR ---
Called [facility] spoke to Theodore.Per Theodore patient not eligible for donation.Reference # [id number].
--- NOTE | 2019-10-24 23:50 | NUR ---
Post mortem care done.Family at bedside.
--- NOTE | 2019-10-25 01:15 | NUR ---
[place] [facility] [place] left.
--- NOTE | 2019-10-28 09:15 | NUR ---
Family Support: SW contacted the pt.s , Janet Bravo [phone] to provide support after the of her patient. Janet spoke about the loss of her and the difficulties she has encountered. SW validated and normalized her feeling of Loss and Grief. SW informed Janet that SW can provide a list of Mortuaries for family. Janet stated that they have already found a mortuary for their patients burial but appreciated the call. SW offered to provide the pt.s family referral to loss and grief support group or/and individual counseling. Janet was receptive and stated that she would call me back to provide email for resources to be sent to her family. Janet expressed how grateful she is for [facility] healthcare and services.
== END 2019-10-24 23:08 | disposition expired | DRG 349 ==
LOC: ER 14:26 → ICU 17:36
PROVIDERS: ADMIT Internal Medicine; ATTEND Nurse Practitioner Acute Care
PROC: 5A1945Z Respiratory Ventilation, 24-96 Consecutive Hours (ICD-10-PCS; principal; 2019-10-22)
PROC: 5A1D70Z Performance of Urinary Filtration, Intermittent, Less than 6 Hours Per Day (ICD-10-PCS; 2019-10-23)
PROC: 5A12012 Performance of Cardiac Output, Single, Manual (ICD-10-PCS; 2019-10-24)
DX: T87.44 Infection of amputation stump, left lower extremity (principal); I21.A1 Myocardial infarction type 2; R65.21 Severe sepsis with septic shock; A41.9 Sepsis, unspecified organism; E43 Unspecified severe protein-calorie malnutrition; G93.1 Anoxic brain damage, not elsewhere classified; Z99.11 Dependence on respirator [ventilator] status; G93.41 Metabolic encephalopathy; L89.154 Pressure ulcer of sacral region, stage 4; L89.324 Pressure ulcer of left buttock, stage 4; L89.314 Pressure ulcer of right buttock, stage 4; Y83.9 Surgical procedure, unspecified as the cause of abnormal reaction of the patient, or of later complication, without mention of misadventure at the time of the procedure; D53.9 Nutritional anemia, unspecified; D68.69 Other thrombophilia; D69.6 Thrombocytopenia, unspecified; E87.2 Acidosis; E87.6 Hypokalemia; I13.2 Hypertensive heart and chronic kidney disease with heart failure and with stage 5 chronic kidney disease, or end stage renal disease; I50.23 Acute on chronic systolic (congestive) heart failure; E11.65 Type 2 diabetes mellitus with hyperglycemia; L30.4 Erythema intertrigo; N18.6 End stage renal disease; R13.10 Dysphagia, unspecified; R53.2 Functional quadriplegia; Z74.01 Bed confinement status; Z79.4 Long term (current) use of insulin; Z79.82 Long term (current) use of aspirin; Z89.611 Acquired absence of right leg above knee; Z93.1 Gastrostomy status; Z99.2 Dependence on renal dialysis; J96.10 Chronic respiratory failure, unspecified whether with hypoxia or hypercapnia; I42.8 Other cardiomyopathies; E11.51 Type 2 diabetes mellitus with diabetic peripheral angiopathy without gangrene; Z87.01 Personal history of pneumonia (recurrent); Z68.37 Body mass index [BMI] 37.0-37.9, adult; M62.50 Muscle wasting and atrophy, not elsewhere classified, unspecified site; L89.890 Pressure ulcer of other site, unstageable; S71.102A Unspecified open wound, left thigh, initial encounter; S71.101A Unspecified open wound, right thigh, initial encounter; X58.XXXA Exposure to other specified factors, initial encounter; Y93.9 Activity, unspecified; Y92.129 Unspecified place in nursing home as the place of occurrence of the external cause; E11.22 Type 2 diabetes mellitus with diabetic chronic kidney disease; I95.3 Hypotension of hemodialysis; J18.9 Pneumonia, unspecified organism; Z79.899 Other long term (current) drug therapy; Z89.612 Acquired absence of left leg above knee; E11.649 Type 2 diabetes mellitus with hypoglycemia without coma
CPT/HCPCS: 31720; 36415; 36600; 71045-TC; 80048-TC; 80053-TC; 80076-TC; 80202-TC; 82248-TC; 82728-TC; 82962-TC; 83540-TC; 83605-TC; 83735-TC; 83880; 84100-TC; 84439-TC; 84443-TC; 84484-TC; 85025-TC; 85730-TC; 86706; 87040-TC; 87070-TC; 87081-TC; 87340; 90935-TC; 92950-TC; 94002-TC; 94003-TC; A4216; A6248; A6253; A6403; G0378; J0171; J0770; J1815; J2185; J2370; J2405; J3370; J3480; J3490; J7050; J7060